=== PATIENT | female | born 2000 | race Caucasian/White ===

== ENCOUNTER 2023-09-11 11:47 | Emergency (ER) | payer OTHER, SELFPAY ==
[2023-09-11 11:50] VITALS: BP 119/71; PULSE 82; RESP 18; TEMP 36.9; O2SAT 99; BMI 28.3
[2023-09-11] MEDS: ONDANSETRON 4 MG RAPDIS TABLET SL (11:59)
[2023-09-11] MEDS: METOCLOPRAMIDE HCL 10 MG TABLET PO (13:45)
--- NOTE | 2023-09-11 13:45 | ED.GENADUL1 ---
HPI - General Adult General Chief complaint: Upper Respiratory Infection Stated complaint: URTI Time Seen by Provider: 09/11/23 11:53 Source: patient Mode of arrival: walk-in History of Present Illness HPI narrative: Patient is a 22-year-old female who is presenting to the Emergency Room with chief complaint of flulike symptoms for the past 2 or 3 days. 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 Patient does have bilateral frontal headache, she does have a history of headache and migraines. Patient normally will use Motrin or ibuprofen to help with her headaches at home. Patient had nausea and vomiting today, clear fluid with minimal bile. Patient has no chest pain or shortness of breath. No urinary complaints, no diarrhea, no other bowel or bladder changes. No recent traveling. Patient's has had flulike symptoms at home as well. . All systems are negative except as noted/marked. All systems reviewed and otherwise negative. . Nurses note and vital signs reviewed and patient is not hypoxic. General: The patient appears well and in no apparent distress. Patient is resting comfortably on cart. Patient is not toxic, lethargic, or listless Skin: Warm, dry, no pallor noted. There is no rash noted. No petechiae, purpura. Head: Normocephalic, atraumatic, Mild bilateral frontal tenderness to palpation, no maxillary tenderness palpation, Eye: Normal conjunctiva, no drainage, EOMI. PERRL Ears, Nose, Mouth, and Throat: oral mucosa is moist. Nares patent. Mouth without vesicles. Bilateral tympanic membrane shows no erythema, perforation or bulging. Posterior pharynx shows mild clear drainage, cobblestoning minimal, no unilateral swelling. No posterior pharyngeal petechiae, exudate. Cardiovascular: Regular Rate and Rhythm, no murmur, gallop, rub Respiratory: Patient is in no distress, no accessory muscle use, lungs are clear to auscultation, no wheezing, rales or rhonchi Back: non-tender, no CVA tenderness bilaterally to percussion. No CT LS midline pain GI: soft, no tenderness to palpation, no masses appreciated. No rebound, guarding, or rigidity noted. No flank pain bilateral, No distention Musculoskeletal: Patient has full range of motion of all of the extremities, no motor, sensory, or focal neurological deficits Neurological: A&O x3, normal speech Psychiatric: Cooperative Related Data Previous Rx's Medication Instructions Recorded metoclopramide HCl 10 mg tablet 10 mg PO Q6H PRN nausea and 09/11/23 (Reglan) vomiting 3 days #7 tabs Allergies Allergy/AdvReac Type Severity Reaction Status Date / Time Penicillins Allergy Severe Verified 09/11/23 11:54 tramadol AdvReac Severe Verified 09/11/23 11:54 Exam Constitutional Vital Signs, click to edit/add: Last Vital Signs Temp 98.4 F 09/11/23 11:50 Pulse 82 09/11/23 11:50 Resp 18 09/11/23 11:50 BP 119/71 09/11/23 11:50 Pulse Ox 99 09/11/23 11:50 O2 Del Method Room Air 09/11/23 11:50 Course Vital Signs Vital signs: Vital Signs Temperature 98.4 F 09/11/23 11:50 Pulse Rate 82 09/11/23 11:50 Respiratory Rate 18 09/11/23 11:50 Blood Pressure 119/71 09/11/23 11:50 Pulse Oximetry 99 09/11/23 11:50 Oxygen Delivery Method Room Air 09/11/23 11:50 Temperature 98.4 F 09/11/23 11:50 Pulse Rate 82 09/11/23 11:50 Respiratory Rate 18 09/11/23 11:50 Blood Pressure 119/71 09/11/23 11:50 Pulse Oximetry 99 09/11/23 11:50 Oxygen Delivery Method Room Air 09/11/23 11:50 Medical Decision Making [facility] Narrative Medical decision making narrative: Patient took a Zofran prior to arrival and she had one episode of vomiting after that. Patient was given another Zofran in the Emergency Room. Patient held down liquids with no difficulty. Patient was given oral Reglan to help with headache. Patient was offered IM injection of Toradol which she declined. Patient was sent home a prescription of Reglan to help with nausea and vomiting home along with headaches. Patient continues to manage treatment for sinus congestion and flulike symptoms. No questions at discharge. Discharge Plan Discharge Chief Complaint: Upper Respiratory Infection Clinical Impression: Upper respiratory infection, Sinus congestion, Flu-like symptoms, Nausea & vomiting Patient Disposition: Home, Self-Care Time of Disposition Decision: 13:44 Condition: Fair Prescriptions / Home Meds: New metoclopramide HCl [Reglan] 10 mg tablet 10 mg PO Q6H PRN (Reason: nausea and vomiting) 3 Days Qty: 7 0RF Instructions: Upper Respiratory Infection (ED), Acute Nausea and Vomiting (ED), Cold Symptoms (ED), How to Use Nasal [place] (ED) Additional Instructions: Use [id number] DayQuil, NyQuil, and Flonase. He is Mucinex as needed. Use Tylenol Motrin. Use Reglan as needed for nausea, vomiting or headaches. Increase fluids. Stand Alone Forms: Work/School Release, Portal Instructions Referrals: Physician,Non-Staff, MD [Primary Care Provider] - 1 week Discharge Date/Time: 09/11/23 13:51
== END 2023-09-11 13:51 | disposition home or self-care (01) ==
PROVIDERS: Emergency Provider Emergency Medicine
DX: R11.2 Nausea with vomiting, unspecified (principal); R09.81 Nasal congestion; J06.9 Acute upper respiratory infection, unspecified; R51.9 Headache, unspecified
CPT/HCPCS: 99283

== ENCOUNTER 2023-09-23 16:43 | Emergency (ER) | payer OTHER, SELFPAY ==
[2023-09-23 16:50] VITALS: BP 103/71; PULSE 88; RESP 20; TEMP 36.8; O2SAT 97; BMI 28.3
--- NOTE | 2023-09-23 16:56 | XR_ITS ---
The [address] [address] Patient Name: XNEIA ANDREWS MRN: [id number] date: 2000 Sex: F Assigned Patient Location: ER Current Patient Location: ER Accession/Order Number: [id number] Exam Date: 09/23/2023 17:49 Report Date: 09/23/2023 18:35 At the request of: VIDAL BASS Procedure: XR knee LT 4V EXAM: XR knee LT 4V HISTORY: injury c/o pain COMPARISON: None. TECHNIQUE: 3 views of the left knee FINDINGS: There is no acute fracture or dislocation. No knee joint effusion. The soft tissues are unremarkable. XR/XR knee LT 4V IMPRESSION: No acute process. Electronically authenticated by: SAGE BUCKLEY Date: 09/23/2023 18:35
--- NOTE | 2023-09-23 19:02 | ED.LOWEXI1 ---
HPI - Extremity Injury (Lower) General Chief Complaint: Extremity Injury, Lower Stated Complaint: Lower Extremity Pain Time Seen by Provider: 09/23/23 19:02 Source: patient Mode of arrival: walk-in Limitations: no limitations History of Present Illness HPI Narrative: Pt left prior to being evaluated. Related Data Previous Rx's Medication Instructions Recorded metoclopramide HCl 10 mg tablet 10 mg PO Q6H PRN nausea and 09/11/23 (Reglan) vomiting 3 days #7 tabs Allergies Allergy/AdvReac Type Severity Reaction Status Date / Time ketorolac [From Toradol] Allergy Severe Hives Verified 09/23/23 16:50 Penicillins Allergy Severe Verified 09/11/23 11:54 tramadol AdvReac Severe Verified 09/11/23 11:54 PFSH PFSH Social History Smoking status: Heavy tobacco smoker Exam Constitutional Vital Signs, click to edit/add: Last Vital Signs Temp 98.2 F 09/23/23 16:50 Pulse 88 09/23/23 16:50 Resp 20 09/23/23 16:50 BP 103/71 09/23/23 16:50 Pulse Ox 97 09/23/23 16:50 O2 Del Method Room Air 09/23/23 16:50 Course Vital Signs Vital signs: Vital Signs Temperature 98.2 F 09/23/23 16:50 Pulse Rate 88 09/23/23 16:50 Respiratory Rate 20 09/23/23 16:50 Blood Pressure 103/71 09/23/23 16:50 Pulse Oximetry 97 09/23/23 16:50 Oxygen Delivery Method Room Air 09/23/23 16:50 Temperature 98.2 F 09/23/23 16:50 Pulse Rate 88 09/23/23 16:50 Respiratory Rate 20 09/23/23 16:50 Blood Pressure 103/71 09/23/23 16:50 Pulse Oximetry 97 09/23/23 16:50 Oxygen Delivery Method Room Air 09/23/23 16:50 MDM - Extremity Injury (Lower) Medical Records Attestation: I reviewed the patient's medical records. Imaging Data Knee x-ray: Attestation: I have reviewed the pertinent imaging results. Radiologist's impression: Procedure: XR knee LT 4V EXAM: XR knee LT 4V HISTORY: injury c/o pain COMPARISON: None. TECHNIQUE: 3 views of the left knee FINDINGS: There is no acute fracture or dislocation. No knee joint effusion. The soft tissues are unremarkable. XR/XR knee LT 4V IMPRESSION: No acute process. Electronically authenticated by: SAGE BUKCLEY Date: 09/23/2023 18:35 Discharge Plan Discharge Chief Complaint: Extremity Injury, Lower Clinical Impression: Patient left without being seen Prescriptions / Home Meds: No Action metoclopramide HCl [Reglan] 10 mg tablet 10 mg PO Q6H PRN (Reason: nausea and vomiting) 3 Days Qty: 7 0RF Referrals: Physician,Non-Staff, MD [Primary Care Provider] - 1 week
== END 2023-09-23 19:15 | disposition left against medical advice (07) ==
PROVIDERS: Emergency Provider Emergency Medicine
DX: M25.562 Pain in left knee (principal); Z53.21 Procedure and treatment not carried out due to patient leaving prior to being seen by health care provider; F17.210 Nicotine dependence, cigarettes, uncomplicated
CPT/HCPCS: 73564

== ENCOUNTER 2023-09-30 08:32 | Outpatient (RCR) | payer OTHER, SELFPAY | END 2023-11-01 08:00 | disposition home or self-care (01) | LOC: PT 08:32 | PROVIDERS: Visit Provider Physician Assistant | DX: M22.2X2 Patellofemoral disorders, left knee (principal); M94.262 Chondromalacia, left knee | CPT/HCPCS: 97110; 97112; 97162 ==

== ENCOUNTER 2023-10-13 08:26 | Emergency (ER) | payer OTHER, SELFPAY | END 2023-10-13 08:34 | disposition left against medical advice (07) | PROVIDERS: Emergency Provider Emergency Medicine | DX: Z53.8 Procedure and treatment not carried out for other reasons (principal) ==

== ENCOUNTER 2023-12-18 09:45 | Emergency (ER) | payer OTHER, SELFPAY ==
[2023-12-18 09:52] VITALS: BP 132/83; PULSE 89; RESP 18; TEMP 36.8; O2SAT 96; BMI 29.5
--- OUTSIDE RECORDS SUMMARY | 2023-12-18 09:52 | XMS_ITS | CCD ---
Author Name Unknown Address [address] [place] [address] Organization [facility] Care Team Providers Care Chief Psychologist Name Role Phone JAGDISH ALMAGUER Unavailable Unavailable Wandy Dorado Primary Care Physician [phone] None, No PCP Unavailable Unavailable Unavailable Unavailable DO Shauna Atkinson Primary Care Provider DO Martinez Kumar Emergency Provider Betty [facility] Payton Brooks Emergency Provider DO Joseph Wallace Emergency Provider MANDO, DR GIOVANA Kirby Admitting Unavailabl e MANDO, DR GIOVANA Kirby Attending Unavailabl e MISC, DR ISRAEL Primary Care Unavailable MISC, DR ISRAEL Primary Care Unavailable PAY ., DR ALMAZAN Admitting Unavailable PAY ., DR ALMAZAN Attending Unavailable GABRIELLE, DR SHAUNA Foss Consulting Unavailable PAY ., DR ALMAZAN Consulting Unavailable MISC, DR ISRAEL Primary Care Unavailable VIDAL BASS Admitting Unavailable VIDAL BASS Attending Unavailable ARACELI, DR GABBY Dumont Consulting Unavailable VIDAL BASS Consulting Unavailable WALDO, DR ISRAEL Primary Care Unavailable BORIS RODRIGUEZ Admitting Unavailable BORIS RODRIGUEZ Attending Unavailable BORIS RODRIGUEZ Consulting Unavailable Sheri Davenport Consulting Unavailable WALDO, DR ISRAEL Primary Care Unavailable VIDAL BASS Admitting Unavailable VIDAL BASS Attending Unavailable VIDAL BASS Consulting Unavailable DO Shauna Atkinson Primary Care Provider [phone] MD Alton Boss Emergency Provider Cheng Cruz Unavailable Kayley Mo Unavailable Alton Boss Attending Unavailable Shauna Atkinson [facility] Unavailable Alton Boss Admitting Unavailable Joseph Wallace Admitting Unavailable Joseph Wallace Attending Unavailable Shauna Atkinson [facility] Unavailable Allergies Allergy Classification Reported Allergen(s) Allergy Type Date of Onset Reaction(s) Facility (2 sources) Penicillin; Translations: [penicillin] Drug Allergy Anaphylaxis (disorder) [facility] (1 source) Pollen Drug allergy Respiratory function (observable entity) [facility] (5 sources) Penicillins [employer]; Translations: [Penicillins [employer]] Allergy to drug (finding) [facility] Work Phone: (6 sources) Ketorolac; Translations: [ketorolac] Drug Allergy 04-29-20 22 [facility] (5 sources) Penicillins; Translations: [Penicillins] Propensity to adverse reactions 01-22-20 22 Anaphylaxis [facility] (9 sources) traMADol; Translations: [tramadol] Drug Allergy 04-29-20 Hiv, Unknown [facility] (1 source) Ketorolac Drug Allergy [facility] (3 sources) penicillAMINE Drug Allergy Unknown [facility] Other (1 source) penicillAMINE Drug Allergy 12-01-19 24 [facility] Medications Current Medications Medication Drug Class(es) Dates Sig (Normalized) Sig (Original) acetaminophen 325 mg / HYDROcodone bitartrate 5 mg oral tablet (1 source) Opioid Agonist Start: 09-24-2023 take 1 tablet by mouth every four hours Hydrocodone-Aceta minophen Active 1 TAB PO Q4H 3 September 24, 2023 Start: 09-24-2023 take 1 tablet by marlene th every four hours Hydrocodone-Acetaminophen Active 1 TAB P O Q4H 3 September 24, 2023 [id number] actuat albuterol 0.09 mg/actuat metered dose inhaler (3 sources) beta2-Adrenergic Agonist Start: 12-01-2023 take 2 puff(s) by inhalation every four to six hours as needed Albuterol Sulfate HFA 108 (90 Base) MCG/ACT 2 puffs as needed Inhalation every 4-6 hours for 14 days Nov, Active Start: 01-09-2023 Albuterol Sulf ate Active 2 PUFF INHALATION MORNING HYPOGLYCEMIC January 09, 2023 12:00am dextromethorphan hydrobromide 15 mg / guaiFENesin 400 mg / pseudoephedrine hydrochloride 60 mg oral tablet (1 source) alpha-Adrenergic Agonist, Uncompetitive G-hhnfed-R-aspartate Receptor Antagonist, Sigma-1 Agonist Start: 12-01-2023 take 4 tablets by mouth every twenty-four hours as needed Capmist DM 60-15-400 MG as needed Orally every 4-6 hours as needed, max 4 tablets in 24 hours for 5 days Nov, Active Inhalational Spacing Device (Breatherite Mdi Spacer) spacer (2 sources) Start: 01-09-2023 Inhalational Spacing Device (Breatherite Mdi Spacer) spacer Active EACH MISCELLANE January 09, 2023 12:00am Marijuana (2 sources) Start: 01-09-2023 Marijuana Active January 09, 2023 12:00am [place] (No Known Home Meds) (1 source) Start: 10-13-2022 [place] (No Known Home Meds) Active October 13, 2022 12:00am ondansetron 4 mg disintegrating oral tablet (5 sources) Serotonin-3 Receptor Antagonist Start: 01-09-2023 take 4 mg by mouth once daily Ondansetron Active 4 MG PO Daily January 09, 2023 12:00am Start: 10-28-2021 take 1 tablet by marlene th three times daily as needed Ondansetron 8 MG Oral Tablet Disintegrating DISSOLVE 1 (ONE) TABLET on tongue THREE TIMES DAILY NEEDED Quantity: 12 Refills: 0 Ordered: 28-Oct-2021 DO Start : 28-Oct-2021 Active predniSONE 20 mg oral tablet (1 source) Start: 12-01-2023 take 1 tablet by mouth every twelve hours prednisone 20 MG 1 tablet Orally BID for 5 Nov, Active Tri-Sprintec 35 mcg Tab (1 source) Start: 05-22-2021 take 1 tablet by mouth once daily Tri-Sprintec 35 mcg Tab = 1 tab(s), Oral, Daily, NEED to schedule appt. before this refill runs out, # 84 tab(s), Refills(s) 1, Pharmacy: [facility] [id number], 150, cm, 04/29/21 15:53:00 EDT, Height/Length Dosing, 58, kg, 04/29/21 15:53:00 EDT, Weight Dosing Start Date: 05/22/21 Status: Ordered Completed/Discontinued Medications Medication Drug Class(es) Dates Sig (Normalized) Sig (Original) acetaminophen 300 mg / codeine phosphate 30 mg oral tablet (2 sources) Opioid Agonist Start: 01-09-2023 End: 01-09-2023 Acetaminophen-Codei ne Discontinued TAB TABLET January 09, 2023 12:00am January 09, 2023 11:55am acetaminophen 325 mg / oxyCODONE hydrochloride 5 mg oral tablet (20 sources) Opioid Agonist Start: 04-29-2022 End: 10-13-2022 take 1 tablet by mouth every four to six hours Oxycodone-Acetamino phen (Percocet) 5-325 mg tablet Discontinued 1 TAB PO EVERY 4-6 HOURS 12 April 29, 2022 October 13, 2022 11:50am Start: 01-28-2022 End: 04-29-2022 take 1 tablet by mouth every eight hours Oxycodone-Acetaminophen (Percocet) 5-325 mg tablet Discontinued 1 TAB PO Q8H 10 January 28, 2022 April 29, 2022 7:21am Start: 01-28-2022 oxyCODONE-Acet aminophen 5-325 MG Oral Tablet Quantity: 10 Refills: 0 Ordered: 28-Jan-2022 DO Start : 28-Jan-2022 Active Start: 01-09-2022 End: 10-13-2022 take 1 tablet by mouth every six hours Oxycodone-Acetaminophen Discontinued 1 T AB PO Q6H 14 January 12, 2022 January 16, 2022 9:47am clindamycin 300 mg oral capsule (7 sources) Lincosamide Antibacterial Start: 01-09-2022 Clindamycin HCl - 30 0 MG Oral Capsule Quantity: 28 Refills: 0 Ordered: 09-Jan-2022 DO Start : 09-Jan-2022 Active Start: 01-09-2022 End: 04-29-2022 take 300 mg by mouth every six hours Clindamycin Hcl Discontinued 300 MG PO Q6H 28 January 09, 2022 12:00am April 29, 2022 7:21am doxycycline hyclate 100 mg oral capsule (14 sources) Tetracycline-class Drug Start: 04-29-2022 End: 10-13-2022 take 100 mg by mouth twice daily Doxycycline Hyclate Discontinued 100 MG PO Twice daily April 28, 2022 11:00pm October 13, 2022 11:50am Start: 04-10-2022 take 1 capsule by mo uth once daily Doxycycline Hyclate 100 MG Oral Capsule TAKE 1 CAPSULE EVERY 12 HOURS DAILY. Quantity: 28 Refills: 1 Ordered: 10-Apr-2022 Juan Taylor MD Start : 10-Apr-2022 Active Start: 01-28-2022 Doxycycline Hy clate 100 MG Oral Capsule Quantity: 10 Refills: 0 Ordered: 28-Jan-2022 DO Start : 28-Jan-2022 Active Start: 01-08-2022 End: 01-12-2022 take 100 mg by mouth once daily Doxycycline Hyclate Di scontinued 100 MG PO Daily January 08, 2022 12:00am January 12, 2022 9:30am sprintec 28 0.25-35 mg-mcg tablet (3 sources) Progestin, Estrogen take 1 tablet by mouth every twenty-four hours Sprintec 28 0.25-35 MG-MCG 1 tablet Orally Once a day Not-Taking/PRN take 1 tablet by marlene th every twenty-four hours Sprintec 28 0.25-35 MG-MCG 1 tablet Orally Once a day Not-Taking ibuprofen 800 mg oral tablet (12 sources) Nonsteroidal Anti-inflammatory Drug Start: 01-08-2022 End: 01-12-2022 take 600 mg by mouth every six hours Ibuprofen Discontinued 600 MG PO Q6H January 08, 2022 12:00am January 12, 2022 9:29am Start: 02-09-2020 take 1 tablet by marlene th three times daily at mealtime as needed Ibuprofen 800 MG 1 tablet with food or milk as needed Orally Three times a day for 30 days Jan, Not-Taking/PRN ketorolac tromethamine 10 mg oral tablet (3 sources) Nonsteroidal Anti-inflammatory Drug, Cyclooxygenase Inhibitor Start: 04-10-2022 take 1 tablet by mouth every six hours at mealtime Ketorolac Tromethamine 10 MG Oral Tablet TAKE 1 TABLET EVERY 6 HOURS WITH FOOD. Quantity: 20 Refills: 0 Ordered: 10-Apr-2022 Juan Taylor MD Start : 10-Apr-2022 Active meloxicam 15 mg oral tablet (3 sources) Nonsteroidal Anti-inflammatory Drug Start: 09-28-2023 take 1 tablet by mouth every twenty-four hours Meloxicam 15 MG 1 tablet Orally Once a day for 30 days Sep, Not-Taking/PRN naproxen 500 mg oral tablet (3 sources) Nonsteroidal Anti-inflammatory Drug Start: 04-29-2021 Naproxen 500 MG Oral Tablet Quantity: 14 Refills: 0 Ordered: 30-Apr-2021 DO Start : 29-Apr-2021 Active sulfamethoxazole 800 mg / trimethoprim 160 mg oral tablet (5 sources) Dihydrofolate Reductase Inhibitor Antibacterial, Sulfonamide Antimicrobial Start: 03-27-2022 take 1 tablet by mouth twice daily Sulfamethoxazole -Trimethoprim 800-160 MG Oral Tablet TAKE 1 TABLET TWICE DAILY UNTIL FINISHED. Quantity: 28 Refills: 1 Ordered: 27-Mar-2022 Juan Taylor MD Start : 27-Mar-2022 Active traMADol hydrochloride 50 mg oral tablet (3 sources) Opioid Agonist Start: 04-10-2022 take 1 tablet by mouth every eight hours as needed traMADol HCl - 50 MG Oral Tablet TAKE 1 TABLET EVERY 8 HOURS NEEDED. Quantity: 20 Refills: 0 Ordered: 10-Apr-2022 Juan Taylor MD Start : 10-Apr-2022 Active Problems Active Problems Problem Classification Problem Date Documented Da te Episodic/Chronic Abdominal pain (7 sources) Unspecified abdominal pain; Translations: [Left lower quadrant pain] Onset: 01-05-2023 Episodic Acute bronchitis (1 source) Acute bronchitis due to other specified organisms Episodic Conditions associated with dizziness or vertigo (1 source) Dizziness and giddiness; Translations: [Dizziness and giddiness] Onset: 09-30-2018 Episodic E Codes: Fall (1 source) Fall (on) (from) unspecified stairs and steps, initial encounter; Translations: [FALL ON FROM UNS STAIRS STEPS INIT] Onset: 12-08-2022 Episodic External cause codes: Transport; not MVT (1 source) Animal-rider injured by fall from or being thrown from horse in noncollision accident, initial encounter; Translations: [Animl-ridr injured by fall fr horse in nonclsn acc, init] Onset: 09-30-2018 Headache; including migraine (1 source) Headache; Translations: [Headache] Onset: 09-30-2018 Episodic Intracranial injury (1 source) Concussion with loss of consciousness of 30 minutes or less, initial encounter; Translations: [Concussion w LOC of 30 minutes or less, init] Onset: 09-30-2018 Episodic Joint disorders and dislocations; trauma-related (8 sources) Internal derangement of left knee; Translations: [Unspecified internal derangement of left knee] Chronic Lymphadenitis (1 source) Nonspecific mesenteric lymphadenitis; Translations: [NONSPEC MESENTERIC LYMPHADENITIS] Onset: 01-12-2023 Episodic Nonspecific chest pain (1 source) Chest pain; Translations: [Chest pain, unspecified] Onset: 02-18-2022 Episodic Other aftercare (1 source) Other halfway (current) drug therapy; Translations: [OTH AUDIENCE COORDINATOR CURRENT DRUG THERAPY] Onset: 02-24-2023 Episodic Other bone disease and musculoskeletal deformities (2 sources) Chondromalacia, left knee Episodic Other connective tissue disease (3 sources) Pain in right hand; Translations: [PAIN IN RIGHT HAND] Onset: 12-05-2022 Episodic Other female genital disorders (2 sources) Vaginal bleeding; Translations: [Abnormal uterine and vaginal bleeding, unspecified] 01-09-2023 Chronic Other gastrointestinal disorders (1 source) Constipation, unspecified; Translations: [CONSTIPATION UNSPECIFIED] Onset: 01-12-2023 Episodic Other nervous system disorders (6 sources) Postoperative pain ; Translations: [Other acute postoperative pain] 04-29-2022 Episodic Other nervous system disorders (1 source) Other acute postprocedural pain; Translations: [OTHER ACUTE POSTPROCEDURAL PAIN] Onset: 02-24-2023 Episodic Other non-traumatic joint disorders (1 source) Pain in right shoulder; Translations: [Pain in right shoulder] Onset: 09-30-2018 Episodic Other skin disorders (5 sources) Epidermoid cyst; Translations: [Epidermal cyst] Onset: 02-18-2022 Episodic Other skin disorders (5 sources) Infection of sebaceous cyst; Translations: [Sebaceous cyst] Episodic Ovarian cyst (7 sources) Cyst of ovary; Translations: [Unspecified ovarian cyst, unspecified side] Onset: 01-06-2023 01-09-2023 Episodic Skin and subcutaneous tissue infections (8 sources) Abscess; Translations: [Cutaneous abscess, unspecified] 01-28-2022 Episodic Spondylosis; intervertebral disc disorders; other back problems (2 sources) Cervicalgia; Translations: [Cervicalgia] Onset: 09-30-2018 Episodic Sprains and strains (2 sources) Sprain of knee; Translations: [Sprain of unspecified site of left knee, initial encounter] Onset: 09-24-2023 09-24-2023 Episodic Substance-related disorders (1 source) Nicotine dependence, cigarettes, uncomplicated; Translations: [NICOTINE DEPEND CIGARETTES UNCOMP] Onset: 01-12-2023 Chronic Superficial injury; contusion (1 source) Contusion of right hand, initial encounter; Translations: [CONTUSION RIGHT HAND INITIAL ENC] Onset: 12-08-2022 Episodic Unclassified (2 sources) COUGH, UNSPECIFIED; Translations: [COUGH, UNSPECIFIED] Onset: 10-13-2022 Unclassified (1 source) Pain in left knee; Translations: [Pain in left knee] Onset: 09-24-2023 Unclassified (1 source) Unspecified ovarian cyst, left side; Translations: [Unspecified ovarian cyst, left side] Onset: 01-09-2023 Viral infection (3 sources) Disease caused by 2019-nCoV; Translations: [COVID-19] 10-13-2022 Episodic Past or Other Problems Problem Classification Problem Date Documented Da te Episodic/Chronic Influenza (1 source) Influenza due to unidentified influenza virus with other respiratory manifestations; Translations: [FLU D/T UNIDENT FLU VIR RESP MANIF] Onset: 10-13-2022 Episodic Unclassified (1 source) COUGH, UNSPECIFIED; Translations: [COUGH, UNSPECIFIED] Onset: 10-11-2022 Unclassified (1 source) Acute cough R05.1 Results Test Name Value Interpretation Reference Range Facility Outside Recordson 12-02-2023 Outside Records [id number]#1.00OTGTI FF [facility] COVID + FLU Quick Testingon 12-01-2023 SARS-CoV-2 (COVID-19) RNA HUMBERTO+probe Ql (Unsp spec) Negative [facility] Other COVID + FLU Quick Testing Negative [facility] Other Outside [facility] 10-01-2023 Outside Records [id number]#1.00OTGTI FF [facility] XR knee LT 4V*on 09-24-2023 XR knee LT 4V* [facility] [place] [address] XRay Report Signed Patient: Sofia Mcgowan MR#: [id number] : 2000 Acct:[id number] Age/Sex: 22 / F ADM Date: 09/24/23 Loc: ER Room: Type: [facility] ER Attending Dr: Copies to: Alton Boss MD Ordering Provider: Alton Boss MD Date of Service: 09/24/23 XR/XR knee LT 4V*: Extremity Injury, Lower LEFT KNEE - 4 views CLINICAL HISTORY: Left knee gave out 2 days ago now with pain. COMPARISON: None FINDINGS: Minimal joint effusion. No acute bony process. Joint spaces appear maintained. XR/XR knee LT 4V* IMPRESSION: MINIMAL JOINT EFFUSION. NO ACUTE BONY PROCESS. Impression dictated by: Pablo Curiel Jr., D.OHawk09/24/2023 9:27 AM Dictation Location: [facility]15 Transcribed By: [facility] 09/24/23926 Dictated By: Pablo Curiel Jr, DO 09/24/23926 Signed By: 09/24/23926 [facility] Outside Recordson 02-19-2023 Outside Records [id number]#1.00OTGT IFF [facility] Outside Records [id number]#1.00OTGT IFF [facility] Outside Records [id number]#1.00OTGT IFF [facility] Outside [facility] 01-12-2023 Outside Records [id number]#1.00OTGTI FF Normal [facility] Activated partial thrombopla stin time (aPTT) in platelet poor plasma by coagulation aOrdered By: Joseph Wallace on 01-09-2023 aPTT Coag (PPP) [Time] 30.5 s 25.1-36.5 [facility] Alanine aminotransferase [En zymatic activity/volume] in Serum or PlasmaOrdered By: Joseph Wallace on 01-09-2023 ALT [Catalytic activity/Vol] 16 U/L 7-52 [facility] Albumin [Mass/volume] in Ser um or Plasma by Bromocresol green (BCG) dye binding methoOrdered By: Joseph Wallace on 01-09-2023 Albumin BCG dye [Mass/Vol] 4.4 g/dL 3.5-5.7 [facility] Alkaline phosphatase [Enzyma tic activity/volume] in Serum or PlasmaOrdered By: Joseph Wallace on 01-09-2023 ALP [Catalytic activity/Vol] 77 U/L 34-104 [facility] Amphetamine Screen Ql (U)Ord ered By: Joseph Wallace on 01-09-2023 Amphetamines Ql (U) Negative Negative [facility] Aspartate aminotransferase [ Enzymatic activity/volume] in Serum or PlasmaOrdered By: Joseph Wallace on 01-09-2023 AST [Catalytic activity/Vol] 16 U/L 13-39 [facility] Automated erythrocytes count in urine sediment (number/area)Ordered By: Joseph Wallace on 01-09-2023 RBC Auto (Urine sed) [#/Area] 10-19 [HPF] 0-4 [facility] Automated leukocytes count i n urine sediment (number/area)Ordered By: Joseph Wallace on 01-09-2023 WBC Auto (Urine sed) [#/Area] 0-1 [HPF] 0-4 [facility] Barbiturates [Presence] in U rine by Screen methodOrdered By: Joseph Wallace on 01-09-2023 Barbiturates Screen Ql (U) Negative Negative [facility] Basic Metabolic Panelon 12-31 Anion gap [Moles/Vol] 12.6 mmol/L Normal 6.0-15.0 [facility] Comment on above: Performed By: #### P T, HEPATIC, PTT, BMP, CBC, LIPASE #### [facility] [address] Calcium [Mass/Vol] 8.9 mg/dL Normal 8.6-10.3 [facility] Comment on above: Performed By: #### P T, HEPATIC, PTT, BMP, CBC, LIPASE #### [facility] [address] Chloride [Moles/Vol] 107 mmol/L Normal 98-107 [facility] Comment on above: Performed By: #### P T, HEPATIC, PTT, BMP, CBC, LIPASE #### [address] CO2 [Moles/Vol] 25.3 mmol/L Normal 21.0-31.0 [facility] Comment on above: Performed By: #### P T, HEPATIC, PTT, BMP, CBC, LIPASE #### [address] Creatinine [Mass/Vol] 0.57 mg/dL Low 0.60-1.20 [facility] Comment on above: Performed By: #### P T, HEPATIC, PTT, BMP, CBC, LIPASE #### [address] Creatinine Clr Calc Pharmacy 141.51 [facility] Comment on above: Performed By: #### P T, HEPATIC, PTT, BMP, CBC, LIPASE #### [address] GFR/1.73 sq M.predicted MDRD (S/P/Bld) [Vol rate/Area] mL/min/{1.73_m2} [facility] Comment on above: Performed By: #### P T, HEPATIC, PTT, BMP, CBC, LIPASE #### [address] Glucose [Mass/Vol] 85 mg/dL Normal 74-109 [facility] Comment on above: Result Comment: [facility] Glucose Reference Range is dependent on time and content of last meal. Glucose of more than 200 mg/dL in a nonstressed, ambulatory subject supports the diagnosis of Diabetes Mellitus. ADA recommended reference range Performed By: #### P T, HEPATIC, PTT, BMP, CBC, LIPASE #### [facility] [address] Potassium [Moles/Vol] 3.9 mmol/L Normal 3.5-5.1 [facility] Comment on above: Performed By: #### P T, HEPATIC, PTT, BMP, CBC, LIPASE #### [facility] [address] Sodium [Moles/Vol] 141 mmol/L Normal 136-145 [facility] Comment on above: Performed By: #### P T, HEPATIC, PTT, BMP, CBC, LIPASE #### [facility] [address] Urea nitrogen [Mass/Vol] 12 mg/dL Normal 7-25 [facility] Comment on above: Performed By: #### P T, HEPATIC, PTT, BMP, CBC, LIPASE #### [facility] [address] Basophils Auto (Bld) [#/Vol] Ordered By: Joseph Wallace on 01-09-2023 Basophils (Bld) [#/Vol] 0.1 10*3/uL 0.0-0.2 [facility] Basophils/100 WBC Auto (Bld) Ordered By: Joseph Wallace on 01-09-2023 Basophils/100 WBC (Bld) 0.6 % . [facility] Benzodiazepines Screen Ql (U )Ordered By: Joseph Wallace on 01-09-2023 Benzodiazepines Ql (U) Positive Negative [facility] Benzoylecgonine [Presence] i n Urine by Screen methodOrdered By: Joseph Wallace on 01-09-2023 Benzoylecgonine Screen Ql (U) Positive Negative [facility] Bilirubin Test strip Ql (U)O rdered By: Joseph Wallace on 01-09-2023 Bilirubin Ql (U) Negative Negative [facility] Bilirubin.direct [Mass/volum e] in Serum or PlasmaOrdered By: Joseph Wallace on 01-09-2023 Bilirubin.direct [Mass/Vol] 0.10 mg/dL 0.03-0.18 [facility] Bilirubin.total [Mass/volume ] in Serum or PlasmaOrdered By: Joseph Wallace on 01-09-2023 Bilirubin [Mass/Vol] 0.5 mg/dL 0.3-1.0 [facility] CBC AUTO DIFFon 01-09-2023 BASO # 0.1 103/ul Normal 0.0-0.1 [facility] Comment on above: Performed By: #### C BC #### [facility] [address] [address] [address] Cristopher Godoy Basophils/100 WBC (Bld) 0.6 % Normal 0.2-2.0 [facility] Comment on above: Performed By: #### C BC #### [facility] [address] [place] [address] Dr. Cristopher Godoy EO # 0.4 103/ul Normal 0.0-0.7 [facility] Comment on above: Performed By: #### C BC #### [facility] [address] [place] [address] Dr. Cristopher Godoy Eosinophils/100 WBC (Bld) 2.7 % Normal 0.9-7.0 [facility] Comment on above: Performed By: #### C BC #### [facility] [address] [place] [address] Dr. Cristopher Godoy Erythrocyte distribution width (RBC) [Ratio] 13.5 % Normal 11.0-15.0 [facility] Comment on above: Performed By: #### C BC #### [facility] [address] [place] [address] Dr. Cristopher Godoy Hematocrit (Bld) [Volume fraction] 42.2 % Normal 36.0-48.0 [facility] Comment on above: Performed By: #### C BC #### [facility] [address] [place] [address] Dr. Cristopher Godoy Hemoglobin (Bld) [Mass/Vol] 14.1 g/dL Normal 12.0-16.0 [facility] Comment on above: Performed By: #### C BC #### [facility] [address] [place] [address] Dr. Cristopher Godoy IG # 0.06 10e3/ul Critically high 0.00-0.03 [facility] Comment on above: Performed By: #### C BC #### [facility] [address] [place] [address] Dr. Cristopher Godoy IG % 0.4 % Normal 0.0-0.5 [facility] Comment on above: Performed By: #### C BC #### [facility] [address] [place] [address] Dr. Cristopher Godoy LYMPH # 3.8 103/ul Normal 1.2-3.8 [facility] Comment on above: Performed By: #### C BC #### [facility] [address] [place] [address] Dr. Cristopher Godoy Lymphocytes/100 WBC (Bld) 24.7 % Normal 20.5-60.0 [facility] Comment on above: Performed By: #### C BC #### [facility] [address] [place] [address] Dr. Cristopher Godoy MANUAL DIFF REQ NO Normal [facility] Comment on above: Performed By: #### C BC #### [facility] [address] [place] [address] Dr. Cristopher Godoy MCH (RBC) [Entitic mass] 30.5 pg Normal 26.7-34.0 [facility] Comment on above: Performed By: #### C BC #### [facility] [address] [place] [address] Dr. Cristopher Godoy MCHC (RBC) [Mass/Vol] 33.4 g/dL Normal 29.9-35.2 [facility] Comment on above: Performed By: #### C BC #### [facility] [address] [place] [address] Dr. Cristopher Godoy MCV (RBC) [Entitic vol] 91.3 fL Normal 81.0-99.0 [facility] Comment on above: Performed By: #### C BC #### [facility] [id number] Cristopher Godoy MONO # 0.9 103/ul Critically high 0.3-0.8 [facility] Comment on above: Performed By: #### C BC #### [facility] [address] [place] [address] Dr. Cristopher Godoy Monocytes/100 WBC (Bld) 5.9 % Normal 1.7-12.0 [facility] Comment on above: Performed By: #### C BC #### [facility] [address] [place] [address] Dr. Cristopher Godoy NEUT # 10.0 103/ul Critically high 1.4-6.5 [facility] Comment on above: Performed By: #### C BC #### [facility] [address] [place] [address] Dr. Cristopher Godoy Neutrophils/100 WBC (Bld) 65.7 % Normal 43.0-75.0 [facility] Comment on above: Performed By: #### C BC #### [facility] [address] [place] [address] Dr. Cristopher Godoy Platelet mean volume (Bld) [Entitic vol] 10.8 fL Normal 9.5-13.5 [facility] Comment on above: Performed By: #### C BC #### [facility] [address] [place] [address] Dr. Cristopher Godoy PLT 338 103/ul Normal 150-450 [facility] Comment on above: Performed By: #### C BC #### [facility] [address] [place] [address] Dr. Cristopher Godoy RBC 4.62 106/ul Normal 4.20-5.40 [facility] Comment on above: Performed By: #### C BC #### [facility] [address] [place] [address] Dr. Cristopher Godoy WBC 15.3 103/ul Critically high 4.0-11.0 [facility] Comment on above: Performed By: #### C BC #### [facility] [address] [place] [address] ABD/PELV W CONon 01-10-20 CT ABD/PELV W CON EXAMINATION: CT ABD/ PELV W CON HISTORY: GENERALIZED ABDOMINAL PAIN COMPARISON: Pelvic ultrasound dated 01/05/2023. TECHNIQUE: Routine CT abdomen/pelvis with intravenous contrast. Dose reduction techniques were achieved by using automated exposure control and/or adjustment of mA and/or kV according to patient size and/or use of iterative reconstruction technique. FINDINGS: Lower chest: Unremarkable. Solid organs: The liver, gallbladder, biliary tree, pancreas, spleen, bilateral adrenal glands and bilateral kidneys are unremarkable. Bowel: Moderate amount of stool within the colon. The colon is unremarkable. The appendix is unremarkable. The distal esophagus is normal. There is a large amount of debris within the dilated stomach. The duodenum is unremarkable. The jejunal and ileal small bowel loops are normal caliber. The bowel gas pattern is nonobstructive. Inflammation: There is no free air or free fluid. There is no inflammatory reaction. Vasculature: The abdominal aorta and the inferior vena cava are unremarkable. The iliac arteries and veins are unremarkable. Lymphadenopathy: Several small scattered mesenteric lymph nodes which most likely are reactive. Correlation with clinical findings recommended to assess for mesenteric adenitis. There are no pathologically enlarged lymph nodes within the abdomen/pelvis. Pelvis: There are 2 left ovarian cysts which given the variation in imaging modality, are most likely unchanged in size from the pelvic ultrasound examination measuring 5.5 x 5.2 x 5.4 cm (30 Hounsfield units) and 2.9 x 3.6 x 5.1 cm (23 Hounsfield units). The uterus is unremarkable. Osseous: No acute process. Mild rightward truncal tilt. IMPRESSION: Nonobstructive bowel gas pattern with a moderate amount of stool within the colon. Several small scattered mesenteric lymph nodes which most likely are reactive. Correlation with clinical findings recommended to assess for mesenteric adenitis. There is no free air or free fluid. There is no inflammatory reaction. There are 2 left ovarian cysts which given the variation in imaging modality, are most likely unchanged in size from the pelvic ultrasound examination measuring 5.5 x 5.2 x 5.4 cm (30 Hounsfield units) and 2.9 x 3.6 x 5.1 cm (23 Hounsfield units). Electronically authenticated by: SHERI DAVENPORT Date: 2023-01-09 04:41 Normal [facility] Calcium [Mass/volume] in Ser um or PlasmaOrdered By: Joseph Wallace on 01-09-2023 Calcium [Mass/Vol] 8.9 mg/dL 8.6-10.3 [facility] Cannabinoids [Presence] in U rine by Screen methodOrdered By: Joseph Wallace on 01-09-2023 Cannabinoids Screen Ql (U) Positive Negative [facility] Comment on above: These are unconfirme d results and should not be used for legal purposes. Drug Cut-Off Concentration: AMPH 1000 ng/mL ISAURO 200 ng/mL YULY 200 ng/mL COCM 300 ng/mL OP 300 ng/mL PCP 25 ng/mL THC 20 ng/mL Carbon dioxide, total [Moles /volume] in Serum or PlasmaOrdered By: Joseph Wallace on 01-09-2023 CO2 [Moles/Vol] 25.3 mmol/L 21.0-31.0 [facility] Chloride [Moles/volume] in S yudy or PlasmaOrdered By: Joseph Wallace on 01-09-2023 Chloride [Moles/Vol] 107 mmol/L 98-107 [facility] Color Auto (U)Ordered By: Janusz Wallace on 01-09-2023 Color (U) Yellow Yellow [facility] Complete Blood Count Auto Di ffon 01-09-2023 Basophils (Bld) [#/Vol] 0.1 10*3/uL Normal 0.0-0.2 [facility] Comment on above: Result Comment: PERF ORMED BY: [facility] [address] [facility] [place] [address] PATHOLOGIST ECOLOGICAL ECONOMIST LUCRECIA NG M.D. Performed By: #### P T, HEPATIC, PTT, BMP, CBC, LIPASE #### [facility] [address] [place] [address] [place] Basophils/100 WBC (Bld) 0.6 % Normal . [facility] Comment on above: Performed By: #### P T, HEPATIC, PTT, BMP, CBC, LIPASE #### [facility] [address] [place] [address] [place] Eosinophils (Bld) [#/Vol] 0.6 10*3/uL High 0.0-0.45 [facility] Comment on above: Performed By: #### P T, HEPATIC, PTT, BMP, CBC, LIPASE #### [address] Eosinophils/100 WBC (Bld) 5.4 % Normal . [facility] Comment on above: Performed By: #### P T, HEPATIC, PTT, BMP, CBC, LIPASE #### [address] Erythrocyte distribution width (RBC) [Ratio] 14.2 % Normal 11.9-15.3 [facility] Comment on above: Performed By: #### P T, HEPATIC, PTT, BMP, CBC, LIPASE #### [address] Hematocrit (Bld) [Volume fraction] 43.2 % Normal 34.0-46.4 [facility] Comment on above: Performed By: #### P T, HEPATIC, PTT, BMP, CBC, LIPASE #### [address] Hemoglobin (Bld) [Mass/Vol] 14.1 g/dL Normal 11.8-15.4 [facility] Comment on above: Performed By: #### P T, HEPATIC, PTT, BMP, CBC, LIPASE #### [address] Lymphocytes (Bld) [#/Vol] 3.3 10*3/uL Normal 1.00-4.8 [facility] Comment on above: Performed By: #### P T, HEPATIC, PTT, BMP, CBC, LIPASE #### [address] Lymphocytes/100 WBC (Bld) 28.7 % Normal . [facility] Comment on above: Performed By: #### P T, HEPATIC, PTT, BMP, CBC, LIPASE #### [address] MCH (RBC) [Entitic mass] 30.1 pg Normal 24.7-34.3 [facility] Comment on above: Performed By: #### P T, HEPATIC, PTT, BMP, CBC, LIPASE #### [address] MCV (RBC) [Entitic vol] 92.6 fL Normal 80-100 [facility] Comment on above: Performed By: #### P T, HEPATIC, PTT, BMP, CBC, LIPASE #### [address] Mean Corpuscular HGB Conc 32.6 g/dL Normal 32.0-35.0 [facility] Comment on above: Performed By: #### P T, HEPATIC, PTT, BMP, CBC, LIPASE #### [address] Monocytes (Bld) [#/Vol] 0.8 10*3/uL Normal 0.0-0.8 [facility] Comment on above: Performed By: #### P T, HEPATIC, PTT, BMP, CBC, LIPASE #### [address] Monocytes/100 WBC (Bld) 16.00 % Normal 0.00-20.00 [facility] Comment on above: Performed By: #### P T, HEPATIC, PTT, BMP, CBC, LIPASE #### [address] Monocytes/100 WBC (Bld) 6.8 % Normal . [facility] Comment on above: Performed By: #### P T, HEPATIC, PTT, BMP, CBC, LIPASE #### [address] Neutrophils (Bld) [#/Vol] 6.7 10*3/uL Normal 1.8-7.7 [facility] Comment on above: Performed By: #### P T, HEPATIC, PTT, BMP, CBC, LIPASE #### [address] Neutrophils/100 WBC (Bld) 58.5 % Normal . [facility] Comment on above: Performed By: #### P T, HEPATIC, PTT, BMP, CBC, LIPASE #### [address] NRBC% 0.1 /100{WBC} Normal 0-0.5 [facility] Comment on above: Performed By: #### P T, HEPATIC, PTT, BMP, CBC, LIPASE #### [address] Platelet mean volume (Bld) [Entitic vol] 9.8 fL Normal 6.3-10.7 [facility] Comment on above: Performed By: #### P T, HEPATIC, PTT, BMP, CBC, LIPASE #### [address] Platelets (Bld) [#/Vol] 314 10*3/uL Normal 150-450 [facility] Comment on above: Performed By: #### P T, HEPATIC, PTT, BMP, CBC, LIPASE #### [address] RBC (Bld) [#/Vol] 4.67 10*6/uL Normal 3.60-5.00 [facility] Comment on above: Performed By: #### P T, HEPATIC, PTT, BMP, CBC, LIPASE #### [address] WBC (Bld) [#/Vol] 11.5 10*3/uL Normal 3.8-11.6 [facility] Comment on above: Performed By: #### P T, HEPATIC, PTT, BMP, CBC, LIPASE #### [address] Creatinine [Mass/volume] in Serum or PlasmaOrdered By: Joseph Wallace on 01-09-2023 Creatinine [Mass/Vol] 0.57 mg/dL 0.60-1.20 [facility] Dipstick and Microscopicon 0 01-09-2023 Appearance (U) Clear Normal Clear [facility] Comment on above: Order Comment: Name Collection Type:: Clean-Voided Midstream Performed By: #### U RDS, ADDONUAPLUS, UHCG #### [address] [place] [address] [place] Bacteria,Urine None Seen Normal None Seen [facility] Comment on above: Order Comment: Name Collection Type:: Clean-Voided Midstream Performed By: #### U RDS, ADDONUAPLUS, UHCG #### [facility] [address] [place] [address] [place] Bilirubin,Urine Negative Normal Negative [facility] Comment on above: Order Comment: Name Collection Type:: Clean-Voided Midstream Performed By: #### U RDS, ADDONUAPLUS, UHCG #### [facility] [address] [place] [address] [place] Color (U) Yellow Normal Yellow [facility] Comment on above: Order Comment: Name Collection Type:: Clean-Voided Midstream Performed By: #### U RDS, ADDONUAPLUS, UHCG #### [facility] [address] [place] [address] Glucose Ql (U) Normal Normal Normal [facility] Comment on above: Order Comment: Name Collection Type:: Clean-Voided Midstream Performed By: #### U RDS, ADDONUAPLUS, UHCG #### [facility] [address] [place] [address] [place] Hyaline Casts,Urine None Seen Normal 0-8 [facility] Comment on above: Order Comment: Name Collection Type:: Clean-Voided Midstream Performed By: #### U RDS, ADDONUAPLUS, UHCG #### [facility] [address] [place] [address] [place] Ketones Ql (U) Negative Normal Negative [facility] Comment on above: Order Comment: Name Collection Type:: Clean-Voided Midstream Performed By: #### U RDS, ADDONUAPLUS, UHCG #### [facility] [address] [place] [address] [place] Leukocyte esterase Test strip Ql (U) Negative Normal Negative [facility] Comment on above: Order Comment: Name Collection Type:: Clean-Voided Midstream Performed By: #### U RDS, ADDONUAPLUS, UHCG #### [facility] [address] [place] [address] Nitrite,Urine Negative Normal Negative [facility] Comment on above: Order Comment: Name Collection Type:: Clean-Voided Midstream Performed By: #### U RDS, ADDONUAPLUS, UHCG #### [address] Occult Blood,Urine 1+ High Negative [facility] Comment on above: Order Comment: Name Collection Type:: Clean-Voided Midstream Performed By: #### U RDS, ADDONUAPLUS, UHCG #### [address] pH (U) 5.5 [pH] Normal 5.0-9.0 [facility] Comment on above: Order Comment: Name Collection Type:: Clean-Voided Midstream Performed By: #### U RDS, ADDONUAPLUS, UHCG #### [address] Protein,Urine Negative Normal Negative [facility] Comment on above: Order Comment: Name Collection Type:: Clean-Voided Midstream Performed By: #### U RDS, ADDONUAPLUS, UHCG #### [facility] [address] [place] [address] RBC,Urine 10-19 High 0-4 [facility] Comment on above: Order Comment: Name Collection Type:: Clean-Voided Midstream Performed By: #### U RDS, ADDONUAPLUS, UHCG #### [facility] [address] [place] [address] Specificy [place],Urine 1.027 Normal 1.001-1.03 0 [facility] Comment on above: Order Comment: Name Collection Type:: Clean-Voided Midstream Performed By: #### U RDS, ADDONUAPLUS, UHCG #### [address] Squamous Epithelial Cell,Urine 0-1 Normal 0-2 [facility] Comment on above: Order Comment: Name Collection Type:: Clean-Voided Midstream Performed By: #### U RDS, ADDONUAPLUS, UHCG #### [address] Urobilinogen,Urine Normal Normal Normal [facility] Comment on above: Order Comment: Name Collection Type:: Clean-Voided Midstream Performed By: #### U RDS, EMILYPLUS, UHCG #### [address] WBC LM.HPF (Urine sed) [#/Area] 0 /[HPF] Normal 0-4 [facility] Comment on above: Order Comment: Name Collection Type:: Clean-Voided Midstream Performed By: #### U RDS, ADDONUAPLUS, [facility] #### [address] Drug Screen,Urineon 01-10-20 23 Amphetamine Screen,Urine Negative Normal Negative [facility] Comment on above: Performed By: #### P T, HEPATIC, PTT, BMP, CBC, LIPASE #### [address] Barbiturate Screen,Urine Negative Normal Negative [facility] Comment on above: Performed By: #### P T, HEPATIC, PTT, BMP, CBC, LIPASE #### [address] Benzodiazepines Screen,Urine Positive High Negative [facility] Comment on above: Performed By: #### P T, HEPATIC, PTT, BMP, CBC, LIPASE #### [address] Cannabinoid Screen,Urine Positive High Negative [facility] Comment on above: Result Comment: Thes e are unconfirmed results and should not be used for legal purposes. Drug Cut-Off Concentration: AMPH 1000 ng/mL ISAURO 200 ng/mL YULY 200 ng/mL COCM 300 ng/mL OP 300 ng/mL PCP 25 ng/mL THC 20 ng/mL PERFORMED BY: [place] [address] PATHOLOGIST ECOLOGICAL ECONOMIST LUCRECIA NG M.D. Performed By: #### P T, HEPATIC, PTT, BMP, CBC, LIPASE #### [facility] [address] Cocaine Screen,Urine Positive High Negative [facility] Comment on above: Performed By: #### P T, HEPATIC, PTT, BMP, CBC, LIPASE #### [facility] [address] Opiate Screen,Urine Positive High Negative [facility] Comment on above: Performed By: #### P T, HEPATIC, PTT, BMP, CBC, LIPASE #### [facility] [address] Phencyclidine Screen,Urine Negative Normal Negative [facility] Comment on above: Performed By: #### P T, HEPATIC, PTT, BMP, CBC, LIPASE #### [facility] [address] ER URINE PROFILEon 3 Bilirubin Ql (U) Negative Normal NEGATIVE [facility] Comment on above: Performed By: #### DEWAYNE LOPEZRO #### [facility] [address] [place] [address] Dr. Cristopher Godoy Clarity (U) CLEAR Normal CLEAR [facility] Comment on above: Performed By: #### DEWAYNE LOPEZRO #### [facility] [address] [place] [address] Dr. Cristopher Godoy Color (U) LT. YELLOW Normal YELLOW [facility] Comment on above: Performed By: #### DEWAYNE LOPEZRO #### [facility] [address] [place] [address] Dr. Cristopher Godoy ERUAHD A micrscopic examina tion will be performed if indicated. Normal [facility] Comment on above: Performed By: #### DEWAYNE LOPEZRO #### [facility] [address] [place] [address] Dr. Cristopher Godoy Glucose Ql (U) Negative Normal NEGATIVE [facility] Comment on above: Performed By: #### DEWAYNE LOPEZRO #### [facility] [address] [place] [address] Dr. Cristopher Godoy Hemoglobin Ql (U) LARGE Abnormal NEGATIVE [facility] Comment on above: Performed By: #### Cecilia BAUMAN UMICRO #### [facility] [address] [place] [address] Dr. Cristopher Godoy Ketones Ql (U) Negative Normal NEGATIVE [facility] Comment on above: Performed By: #### Cecilia BAUMAN UMICRO #### [facility] [address] [place] [address] Dr. Cristopher Godoy LEUKOCYTES Negative Normal NEGATIVE [facility] Comment on above: Performed By: #### Cecilia BAUMAN UMICRO #### [facility] [address] [place] [address] Dr. Cristopher Godoy Nitrite Ql (U) Negative Normal NEGATIVE [facility] Comment on above: Performed By: #### Cecilia BAUMAN UMICRO #### [facility] [address] [place] [address] Dr. Cristopher Godoy pH (U) 6.0 [pH] Normal 5-9 [facility] Comment on above: Performed By: #### Cecilia BAUMAN UMICRO #### [facility] [address] [place] [address] Dr. Cristopher Godoy SPEC GRAVITY 1.010 Normal 1.005-<=1. 025 [facility] Comment on above: Performed By: #### Cecilia BAUMAN UMICRO #### [facility] [address] [place] [address] Dr. Cristopher Godoy UA PROTEIN Negative Normal NEGATIVE/ TRACE [facility] Comment on above: Performed By: #### Cecilia BAUMAN UMICRO #### [facility] [address] [place] [address] Dr. Cristopher Godoy UR MICRO IND INDICATED Normal [facility] Comment on above: Performed By: #### Cecilia BAUMAN UMICRO #### [facility] [address] [place] [address] Dr. Cristopher Godoy Urobilinogen Qn (U) 0.2 {Kevin'U}/dL Normal 0.2 - 1. 0 [facility] Comment on above: Performed By: #### E RUR, UMICRO #### [facility] [address] [address] [address] Cristopher Godoy Eosinophils Auto (Bld) [#/Vo l]Ordered By: Joseph Wallace on 01-09-2023 Eosinophils (Bld) [#/Vol] 0.6 10*3/uL 0.0-0.45 [facility] Eosinophils/100 WBC Auto (Bl d)Ordered By: Joseph Wallace on 01-09-2023 Eosinophils/100 WBC (Bld) 5.4 % . [facility] Erythrocyte distribution wid th Auto (RBC) [Ratio]Ordered By: Joseph Wallace on 01-09-2023 Erythrocyte distribution width (RBC) [Ratio] 14.2 % 11.9-15.3 [facility] Globulin Calc (S) [Mass/Vol] Ordered By: Joseph Wallace on 01-09-2023 Globulin (S) [Mass/Vol] 2.7 g/dL [facility] Glucose [Mass/volume] in Ser um or PlasmaOrdered By: Joseph Wallace on 01-09-2023 Glucose [Mass/Vol] 85 mg/dL 74-109 [facility] Comment on above: ADA recommended refe rence rangeRandom Glucose Reference Range is dependent on time and content of last meal. Glucose of more than 200 mg/dL in a nonstressed, ambulatory subject supports the diagnosis of Diabetes Mellitus. HCG ( test) IA.rapi d Ql (U)Ordered By: Joseph Wallace on 01-09-2023 HCG ( test) Ql (U) Negative [facility] HCG,Urineon 01-09-2023 Beta HCG ( test) Ql (U) Negative Normal [facility] Comment on above: Order Comment: Name Collection Type:: Clean-Voided Midstream Result Comment: PERF ORMED BY: [facility] [address] [place] [address] PATHOLOGIST ECOLOGICAL ECONOMIST LUCRECIA NG M.D. Performed By: #### U RDS, ADDONUAPLUS, UHCG #### [facility] [address] Hematocrit Auto (Bld) [Volum e fraction]Ordered By: Joseph Wallace on 01-09-2023 Hematocrit (Bld) [Volume fraction] 43.2 % 34.0-46.4 [facility] Hemoglobin [Mass/volume] in BloodOrdered By: Joseph Wallace on 01-09-2023 Hemoglobin (Bld) [Mass/Vol] 14.1 g/dL 11.8-15.4 [facility] Hepatic Panelon 01-09-2023 Albumin [Mass/Vol] 4.4 g/dL Normal 3.5-5.7 [facility] Comment on above: Performed By: #### P T, HEPATIC, PTT, BMP, CBC, LIPASE #### [facility] [address] [id number] [place] Albumin/Globulin [Mass ratio] 1.6 {ratio} Normal [facility] Comment on above: Performed By: #### P T, HEPATIC, PTT, BMP, CBC, LIPASE #### [facility] [address] [place] [address] [place] ALP [Catalytic activity/Vol] 77 U/L Normal 34-104 [facility] Comment on above: Performed By: #### P T, HEPATIC, PTT, BMP, CBC, LIPASE #### [facility] [address] [place] [address] [place] ALT [Catalytic activity/Vol] 16 U/L Normal 7-52 [facility] Comment on above: Performed By: #### P T, HEPATIC, PTT, BMP, CBC, LIPASE #### [facility] [address] [id number] [place] AST [Catalytic activity/Vol] 16 U/L Normal 13-39 [facility] Comment on above: Performed By: #### P T, HEPATIC, PTT, BMP, CBC, LIPASE #### [facility] [address] [place] [address] [place] Bilirubin [Mass/Vol] 0.5 mg/dL Normal 0.3-1.0 [facility] Comment on above: Performed By: #### P T, HEPATIC, PTT, BMP, CBC, LIPASE #### [facility] [address] [id number] [place] Bilirubin,Indirect 0.4 mg/dL Normal [facility] Comment on above: Performed By: #### P T, HEPATIC, PTT, BMP, CBC, LIPASE #### [facility] [address] Bilirubin.indirect [Mass/Vol] 0.10 mg/dL Normal 0.03-0.18 [facility] Comment on above: Performed By: #### P T, HEPATIC, PTT, BMP, CBC, LIPASE #### [facility] [address] Globulin (S) [Mass/Vol] 2.7 g/dL Normal [facility] Comment on above: Performed By: #### P T, HEPATIC, PTT, BMP, CBC, LIPASE #### [facility] [address] Protein [Mass/Vol] 7.1 g/dL Normal 6.4-8.9 [facility] Comment on above: Performed By: #### P T, HEPATIC, PTT, BMP, CBC, LIPASE #### [facility] [address] Ketones Auto test strip (U) [Mass/Vol]Ordered By: Joseph Wallace on 01-09-2023 Ketones (U) [Mass/Vol] Negative Negative [facility] - Chemistry and C hemistry - challengeOrdered By: Joseph Wallace on 01-09-2023 GFR/1.73 sq M.predicted MDRD (S/P/Bld) [Vol rate/Area] mL/min/{1.73_m2} [facility] Laboratory - CoagulationOrde red By: Joseph Wallace on 01-09-2023 PT Coag (PPP) [Time] 10.4 s 9.0-12.9 [facility] - UrinalysisOrder ed By: Joseph Wallace on 01-09-2023 Hyaline casts LM Ql (Urine sed) None seen [LPF] 0-8 [facility] Leukocytes [#/volume] correc ifrah for nucleated erythrocytes in Blood by Automated counOrdered By: Joseph Wallace on 01-09-2023 WBC corrected for nucl RBC Auto (Bld) [#/Vol] 11.5 10*3/uL 3.8-11.6 [facility] Lipaseon 01-09-2023 Lipase [Catalytic activity/Vol] 12.0 U/L Normal 11.0-82.0 [facility] Comment on above: Result Comment: PERF ORMED BY: [place] [address] PATHOLOGIST ECOLOGICAL ECONOMIST LUCRECIA NG M.D. Performed By: #### P T, HEPATIC, PTT, BMP, CBC, LIPASE #### [facility] [address] Lipase [Enzymatic activity/v olume] in Serum or PlasmaOrdered By: Joseph Wallace on 01-09-2023 Lipase [Catalytic activity/Vol] 12.0 U/L 11.0-82.0 [facility] Lymphocytes Auto (Bld) [#/Vo l]Ordered By: Joseph Wallace on 01-09-2023 Lymphocytes (Bld) [#/Vol] 3.3 10*3/uL 1.00-4.8 [facility] Lymphocytes/100 WBC Auto (Bl d)Ordered By: Joseph Wallace on 01-09-2023 Lymphocytes/100 WBC (Bld) 28.7 % . [facility] MCH Auto (RBC) [Entitic mass ]Ordered By: Joseph Wallace on 01-09-2023 MCH (RBC) [Entitic mass] 30.1 pg 24.7-34.3 [facility] MCHC Auto (RBC) [Mass/Vol]Or dered By: Joseph Wallace on 01-09-2023 MCHC (RBC) [Mass/Vol] 32.6 g/dL 32.0-35.0 [facility] MCV Auto (RBC) [Entitic vol] Ordered By: Joseph Wallace on 01-09-2023 MCV (RBC) [Entitic vol] 92.6 fL 80-100 [facility] Monocyte distribution width [Entitic volume] in Blood by AutomatedOrdered By: Joseph Wallace on 01-09-2023 Monocyte distribution width Auto (Bld) [Entitic vol] 16.00 % 0.00-20.00 [facility] Monocytes Auto (Bld) [#/Vol] Ordered By: Joseph Wallace on 01-09-2023 Monocytes (Bld) [#/Vol] 0.8 10*3/uL 0.0-0.8 [facility] Monocytes/100 WBC Auto (Bld) Ordered By: Joseph Wallace on 01-09-2023 Monocytes/100 WBC (Bld) 6.8 % . [facility] Neutrophils Auto (Bld) [#/Vo l]Ordered By: Joseph Wallace on 01-09-2023 Neutrophils (Bld) [#/Vol] 6.7 10*3/uL 1.8-7.7 [facility] Neutrophils/100 WBC Auto (Bl d)Ordered By: Joseph Wallace on 01-09-2023 Neutrophils/100 WBC (Bld) 58.5 % . [facility] Nitrite Test strip Ql (U)Ord ered By: Joseph Wallace on 01-09-2023 Nitrite Ql (U) Negative Negative [facility] No Panel InformationOrdered By: Joseph Wallace on 01-09-2023 Pharmacy Creatinine Clearance (Chem 141.51 [facility] Nucleated erythrocytes [Pres ence] in Blood by Automated countOrdered By: Joseph Wallace on 01-09-2023 Nucleated RBC Auto Ql (Bld) 0.1 /100{WBC} 0-0.5 [facility] Opiates [Presence] in Urine by Screen methodOrdered By: Joseph Wallace on 01-09-2023 Opiates Screen Ql (U) Positive Negative [facility] PREG HCG QUALon 01-09-2023 , QUAL Negative Normal NEGATIVE [facility] Comment on above: Performed By: #### P REG #### [facility] [address] [address] [address] Cristopher Godoy PROF CHEM 8 (BAS METB)on Anion gap [Moles/Vol] 10.6 mmol/L Normal [facility] Comment on above: Performed By: #### B MP #### [facility] [address] [place] [address] Dr. Cristopher Godoy Calcium [Mass/Vol] 8.7 mg/dL Normal 8.5-10.1 [facility] Comment on above: Performed By: #### B MP #### [facility] [address] [address] [address] Cristopher Godoy Chloride [Moles/Vol] 103 mmol/L Normal 98-107 [facility] Comment on above: Performed By: #### B MP #### [facility] [address] [address] [address] Cristopher Godoy CO2 [Moles/Vol] 28.0 mmol/L Normal 21.0-32.0 [facility] Comment on above: Performed By: #### B MP #### [facility] [address] [address] [address] Cristopher Godoy Creatinine [Mass/Vol] 0.62 mg/dL Normal 0.55-1.02 [facility] Comment on above: Performed By: #### B MP #### [facility] [address] [place] [address] Dr. Cristopher Godoy EGFR-AF TANZANIAN >60 Normal >=60 [facility] Comment on above: Performed By: #### B MP #### [facility] [address] [address] [address] Cristopher Godoy EGFR-NON AF TANZANIAN >60 Normal >=60 [facility] Comment on above: Performed By: #### B MP #### [facility] [address] [place] [address] Dr. Cristopher Godoy Glucose [Mass/Vol] 128 mg/dL Critically high 74-106 [facility] Comment on above: Performed By: #### B MP #### [facility] [address] [address] [address] Cristopher Godoy Potassium [Moles/Vol] 3.6 mmol/L Normal 3.5-5.1 [facility] Comment on above: Performed By: #### B MP #### [facility] [address] [place] [address] Dr. Cristopher Godoy Sodium [Moles/Vol] 138 mmol/L Normal 136-145 [facility] Comment on above: Performed By: #### B MP #### [facility] [address] [place] [address] Dr. Cristopher Godoy Urea nitrogen [Mass/Vol] 13.0 mg/dL Normal 7.0-18.0 [facility] Comment on above: Performed By: #### B MP #### [facility] [address] [place] [address] Dr. Cristopher Godoy Urea nitrogen/Creatinine [Mass ratio] 21.0 mg/mg Normal [facility] Comment on above: Performed By: #### B MP #### [facility] [address] [address] [address] Cristopher Godoy Partial Thromboplastin Timeo n 01-09-2023 aPTT Coag (Bld) [Time] 30.5 s Normal 25.1-36.5 [facility] Comment on above: Result Comment: PERF ORMED BY: [place] [address] PATHOLOGIST ECOLOGICAL ECONOMIST LUCRECIA NG M.D. Performed By: #### P T, HEPATIC, PTT, BMP, CBC, LIPASE #### [facility] [address] [place] [address] Phencyclidine Screen Ql (U)O rdered By: Joseph Wallace on 01-09-2023 Phencyclidine Ql (U) Negative Negative [facility] Platelet mean volume Auto (B ld) [Entitic vol]Ordered By: Joseph Wallace on 01-09-2023 Platelet mean volume (Bld) [Entitic vol] 9.8 fL 6.3-10.7 [facility] Platelet poor plasma interna tional normalized ratio (INR) by coagulation assay (relatOrdered By: Joseph Wallace on 01-09-2023 INR Coag (PPP) [Relative time] 0.9 {INR} [facility] Comment on above: INR Therapeutic Rang e A) Pre- and Peroperative OAT started two weeks before surgery. NOT HIP SURGERY: 1.5 - 2.5 HIP SURGERY: 2 - 3B) Primary and secondary prevention of venous THROMBOSIS: 2 - 3C) Active venous thrombosis, pulmonary embolismand prevention of recurrent venous thrombosis: 2 - 3D) Prevention of arterial thromboembolismincluding patients with mechanical heart valves: 3 - 4.5 Platelets Auto (Bld) [#/Vol] Ordered By: Joseph Wallace on 01-09-2023 Platelets (Bld) [#/Vol] 314 10*3/uL 150-450 [facility] Potassium [Moles/volume] in Serum or PlasmaOrdered By: Joseph Wallace on 01-09-2023 Potassium [Moles/Vol] 3.9 mmol/L 3.5-5.1 [facility] Protein Auto test strip (U) [Mass/Vol]Ordered By: Joseph Wallace on 01-09-2023 Protein (U) [Mass/Vol] Negative Negative [facility] Protein [Mass/volume] in Ser um or PlasmaOrdered By: Joseph Wallace on 01-09-2023 Protein [Mass/Vol] 7.1 g/dL 6.4-8.9 [facility] Prothrombin Time INRon 01-09 INR Coag (PPP) [Relative time] 0.9 {INR} Normal [facility] Comment on above: Result Comment: INR Therapeutic Range A) Pre- and Peroperative OAT started two weeks before surgery. NOT HIP SURGERY: 1.5 - 2.5 HIP SURGERY: 2 - 3 B) Primary and secondary prevention of venous THROMBOSIS: 2 - 3 C) Active venous thrombosis, pulmonary embolism and prevention of recurrent venous thrombosis: 2 - 3 D) Prevention of arterial thromboembolism including patients with mechanical heart valves: 3 - 4.5 Performed By: #### P T, HEPATIC, PTT, BMP, CBC, LIPASE #### [facility] [address] PT Coag (PPP) [Time] 10.4 s Normal 9.0-12.9 [facility] Comment on above: Performed By: #### P T, HEPATIC, PTT, BMP, CBC, LIPASE #### [facility] [address] RBC Auto (Bld) [#/Vol]Ordere d By: Joseph Wallace on 01-09-2023 RBC (Bld) [#/Vol] 4.67 10*6/uL 3.60-5.00 [facility] Serum or plasma albumin/glob ulin mass ratioOrdered By: Joseph Wallace on 01-09-2023 Albumin/Globulin [Mass ratio] 1.6 {ratio} [facility] Serum or plasma anion gap de terminationOrdered By: Joseph Wallace on 01-09-2023 Anion gap [Moles/Vol] 12.6 mmol/L 6.0-15.0 [facility] Serum or plasma non-glucuron idated bilirubin measurement (mass/volume)Ordered By: Joseph Wallace on 01-09-2023 Bilirubin.indirect [Mass/Vol] 0.4 mg/dL [facility] Sodium [Moles/volume] in Ser um or PlasmaOrdered By: Joseph Wallace on 01-09-2023 Sodium [Moles/Vol] 141 mmol/L 136-145 [facility] Specific gravity Auto test s trip (U) [Rel density]Ordered By: Joseph Wallace on 01-09-2023 Specific gravity (U) [Rel density] 1.027 1.001-1.03 0 [facility] Squamous epithelial cells de tection in urine sediment by light microscopyOrdered By: Joseph Wallace on 01-09-2023 Epithelial cells.squamous LM Ql (Urine sed) 0-1 [HPF] 0-2 [facility] URINE MICROSCOPIC ONLYon BACTERIA NONE SEEN Normal NONE SEEN [facility] Comment on above: Performed By: #### DEWAYNE LOPEZRO #### [facility] [address] [place] [address] Dr. Cristopher Godoy Bacteria identified Cx Nom (U) NOT INDICATED Normal [facility] Comment on above: Performed By: #### Cecilia BAUMAN UMICRO #### [facility] [address] [address] [address] Cristopher Godoy CAST NONE SEEN Normal NONE SEEN [facility] Comment on above: Performed By: #### Cecilia BAUMAN UMICRO #### [facility] [address] [address] [address] Cristopher Godoy Crystals LM Nom (Urine sed) NONE SEEN Normal NONE SEEN [facility] Comment on above: Performed By: #### Cecilia BAUMAN UMICRO #### [facility] [address] [address] [address] Cristopher Godoy Epithelial cells LM Ql (Urine sed) FEW Abnormal NONE SEEN /RARE [facility] Comment on above: Performed By: #### E RUR, UMICRO #### [facility] [address] [address] [address] Cristopher Godoy MUCOUS NONE SEEN Normal NONE SEEN [facility] Comment on above: Performed By: #### E RUR, UMICRO #### [facility] [address] [address] [address] Cristopher Godoy RBC 5-10 Abnormal 0-2 [facility] Comment on above: Performed By: #### E RUR, UMICRO #### [facility] [address] [address] [address] Cristopher Godoy WBC 0-2 Abnormal NONE SEEN [facility] Comment on above: Performed By: #### E RUR, UMICRO #### [facility] [address] [address] [address] Cristopher Godoy US transvaginalon 01-09-2023 US transvaginal [facility] [place] [address] Ultrasound Report Signed Patient: Sofia Mcgowan MR#: [id number] : 2000 Acct:[id number] Age/Sex: 22 / F ADM Date: 01/09/23 Loc: ER Room: Type: [facility] ER Attending Dr: Ordering Provider: Joseph Wallace DO Date of Service: 01/09/23 US/US pelvic complete: ABDOMINAL PAIN ([id number]) US/US transvaginal: PAIN Copies to: Joseph Wallace DO PELVIC ULTRASOUND (transabdominal and transvaginal) COMPARISON: None CLINICAL DATA: Left lower quadrant pain and vaginal bleeding. Reported history of left ovarian cyst at outside hospital. Real-time ultrasound evaluation the pelvis was performed utilizing both a transabdominal and transvaginal approach. TRANSABDOMINAL: The urinary bladder is not well distended. Estimated uterine size is approximately 6.6 x 2.8 x 6 4.1 cm. No focal myometrial abnormalities are noted. The endometrial lining is not thickened. Both ovaries are seen. There are small follicles. There are also large cystic structures anterior to the uterus though closer to the left ovary. Cursory evaluation of the kidneys shows no hydronephrosis or perinephric fluid. TRANSVAGINAL: Transvaginal scans were performed to better evaluate the uterus and adnexa. By this approach, no focal myometrial abnormalities are identified. The endometrial lining is estimated at 3 - 4 mm. The left ovary measures 3.6 x 2.5 x 3.1 cm. There are small follicles within the ovary. The right ovary measures 5.5 x 3.1 x 3.5 cm and also has small follicles. Between the ovaries anterior to the uterus, there is either a septated cystic structure or 2 adjacent cystic structures with the entire area measuring 9.9 x 5.2 x 8.6 cm in size. The larger component measures 6.0 x 5.7 x 6.0 cm in size. The other component has intraluminal debris and measures 5.7 x 3.8 x 4.0 cm. The site of origin is difficult to determine though this is her closer to the left. This would correlate with the report from the outside imaging. No free fluid was identified. US/US pelvic complete IMPRESSION: LARGE MILDLY COMPLICATED CYST OR CYSTS ANTERIOR TO THE UTERUS IN CLOSER PROXIMITY TO THE LEFT OVARY, DESCRIBED. COMPARISON TO PATIENT'S PREVIOUS OUTSIDE STUDY IS SUGGESTED. NO ADDITIONAL ACUTE FINDINGS. Impression dictated by: Chelsea Ceja M.D.01/09/2023 2:27 PM Dictation Location: [place] [address] Tech: Marian Kelly Transcribed By: CHAZ 01/09/23 1427 Dictated By: Chelsea Ceja MD 01/09/23 1344 Signed By: 01/09/23 1427 Normal [facility] Urea nitrogen [Mass/volume] in Serum or PlasmaOrdered By: Joseph Wallace on 01-09-2023 Urea nitrogen [Mass/Vol] 12 mg/dL 7-25 [facility] Urine bacteria detection by automated methodOrdered By: Joseph Wallace on 01-09-2023 Bacteria Auto Ql (U) None seen None Seen [facility] Urine clarity by refractomet ry automatedOrdered By: Joseph Wallace on 01-09-2023 Clarity Refractometry automated (U) Clear Clear [facility] Urine glucose measurement by automated test strip (mass/volume)Ordered By: Joseph Wallace on 01-09-2023 Glucose Auto test strip (U) [Mass/Vol] Normal mg/dL Normal [facility] Urine hemoglobin detection b y automated test stripOrdered By: Joseph Wallace on 01-09-2023 Hemoglobin Auto test strip Ql (U) 1+ Negative [facility] Urine leukocyte esterase det ection by automated test stripOrdered By: Joseph Wallace on 01-09-2023 Leukocyte esterase Auto test strip Ql (U) Negative Negative [facility] Urobilinogen Auto test strip (U) [Mass/Vol]Ordered By: Joseph Wallace on 01-09-2023 Urobilinogen (U) [Mass/Vol] Normal mg/dL Normal [facility] WBC Auto (Bld) [#/Vol]Ordere d By: Joseph Wallace on 01-09-2023 WBC (Bld) [#/Vol] 11.5 10*3/uL 3.8-11.6 [facility] pH Auto test strip (U)Ordere d By: Joseph Wallace on 01-09-2023 pH (U) 5.5 [pH] 5.0-9.0 [facility] CBC AUTO DIFFon 01-05-2023 BASO # 0.1 103/ul Normal 0.0-0.1 [facility] Comment on above: Performed By: #### C BC #### [facility] [address] [place] [address] Dr. Cristopher Godoy Basophils/100 WBC (Bld) 0.6 % Normal 0.2-2.0 [facility] Comment on above: Performed By: #### C BC #### [facility] [address] [address] [address] Cristopher Godoy EO # 0.6 103/ul Normal 0.0-0.7 [facility] Comment on above: Performed By: #### C BC #### [facility] [address] [address] [address] Cristopher Godoy Eosinophils/100 WBC (Bld) 5.7 % Normal 0.9-7.0 [facility] Comment on above: Performed By: #### C BC #### [facility] [address] [place] [address] Dr. Cristopher Godoy Erythrocyte distribution width (RBC) [Ratio] 13.6 % Normal 11.0-15.0 [facility] Comment on above: Performed By: #### C BC #### [facility] [address] [place] [address] Dr. Cristopher Godoy Hematocrit (Bld) [Volume fraction] 46.7 % Normal 36.0-48.0 [facility] Comment on above: Performed By: #### C BC #### [facility] [address] [place] [address] Dr. Cristopher Godoy Hemoglobin (Bld) [Mass/Vol] 15.2 g/dL Normal 12.0-16.0 [facility] Comment on above: Performed By: #### C BC #### [facility] [address] [place] [address] Dr. Cristopher Godoy IG # 0.03 10e3/ul Normal 0.00-0.03 [facility] Comment on above: Performed By: #### C BC #### [facility] [address] [place] [address] Dr. Cristopher Godoy IG % 0.3 % Normal 0.0-0.5 [facility] Comment on above: Performed By: #### C BC #### [facility] [address] [place] [address] Dr. Cristopher Godoy LYMPH # 3.3 103/ul Normal 1.2-3.8 [facility] Comment on above: Performed By: #### C BC #### [facility] [address] [place] [address] Dr. Cristopher Godoy Lymphocytes/100 WBC (Bld) 29.2 % Normal 20.5-60.0 [facility] Comment on above: Performed By: #### C BC #### [facility] [address] [place] [address] Dr. Cristopher Godoy MANUAL DIFF REQ NO Normal [facility] Comment on above: Performed By: #### C BC #### [facility] [address] [place] [address] Dr. Cristopher Godoy MCH (RBC) [Entitic mass] 29.9 pg Normal 26.7-34.0 [facility] Comment on above: Performed By: #### C BC #### [facility] [address] [place] [address] Dr. Cristopher Godoy MCHC (RBC) [Mass/Vol] 32.5 g/dL Normal 29.9-35.2 [facility] Comment on above: Performed By: #### C BC #### [facility] [address] [place] [address] Dr. Cristopher Godoy MCV (RBC) [Entitic vol] 91.9 fL Normal 81.0-99.0 [facility] Comment on above: Performed By: #### C BC #### [facility] [address] [place] [address] Dr. Cristopher Godoy MONO # 0.7 103/ul Normal 0.3-0.8 [facility] Comment on above: Performed By: #### C BC #### [facility] [address] [place] [address] Dr. Cristopher Godoy Monocytes/100 WBC (Bld) 6.3 % Normal 1.7-12.0 [facility] Comment on above: Performed By: #### C BC #### [facility] [address] [place] [address] Dr. Cristopher Godoy NEUT # 6.5 103/ul Normal 1.4-6.5 [facility] Comment on above: Performed By: #### C BC #### [facility] [address] [place] [address] Dr. Cristopher Godoy Neutrophils/100 WBC (Bld) 57.9 % Normal 43.0-75.0 [facility] Comment on above: Performed By: #### C BC #### [facility] [address] [place] [address] Dr. Cristopher Godoy Platelet mean volume (Bld) [Entitic vol] 11.1 fL Normal 9.5-13.5 [facility] Comment on above: Performed By: #### C BC #### [facility] [address] [place] [address] Dr. Cristopher Godoy PLT 360 103/ul Normal 150-450 [facility] Comment on above: Performed By: #### C BC #### [facility] [address] [address] [address] Cristopher Godoy RBC 5.08 106/ul Normal 4.20-5.40 [facility] Comment on above: Performed By: #### C BC #### [facility] [address] [address] [address] Cristopher Godoy WBC 11.2 103/ul Critically high 4.0-11.0 [facility] Comment on above: Performed By: #### C BC #### [facility] [address] [address] [address] Cristopher Godoy ER URINE PROFILEon 3 Bilirubin Ql (U) Negative Normal NEGATIVE [facility] Comment on above: Performed By: #### U MICRO, ERUR ####[facility] [address] [address]Dr. Cristopher Godoy Clarity (U) CLEAR Normal CLEAR [facility] Comment on above: Performed By: #### U MICRO, ERUR ####[facility] [address] [address]Dr. Cristopher Godoy Color (U) LT. YELLOW Normal YELLOW [facility] Comment on above: Performed By: #### U MICRO, ERUR ####[facility] [address] [address]Dr. Cristopher Godoy ERUAHD A micrscopic examina tion will be performed if indicated. Normal [facility] Comment on above: Performed By: #### U MICRO, ERUR ####[facility] [address] [address]Dr. Cristopher Godoy Glucose Ql (U) Negative Normal NEGATIVE [facility] Comment on above: Performed By: #### U MICRO, ERUR ####[facility] [address] [address]Dr. Cristopher Godoy Hemoglobin Ql (U) SMALL Abnormal NEGATIVE [facility] Comment on above: Performed By: #### U MICRO, ERUR ####[facility] [address] [address]Dr. Cristopher Godoy Ketones Ql (U) Negative Normal NEGATIVE [facility] Comment on above: Performed By: #### U MICRO, ERUR ####[facility] [address] [address]Dr. Cristopher Godoy LEUKOCYTES Negative Normal NEGATIVE [facility] Comment on above: Performed By: #### U MICRO, ERUR ####[facility] [address] [address]Dr. Cristopher Godoy Nitrite Ql (U) Negative Normal NEGATIVE [facility] Comment on above: Performed By: #### U MICRO, ERUR ####[facility] [address] [place], [place] [address]Dr. Cristopher Walt pH (U) 6.0 [pH] Normal 5-9 [facility] Comment on above: Performed By: #### U MICRO, ERUR ####[facility] [address] [place], [place] [address]Dr. Cristopher Walt SPEC GRAVITY <=1.005 Abnormal 1.005-<=1. 025 [facility] Comment on above: Performed By: #### U MICRO, ERUR ####[facility] [address] [place], [place] [address]Dr. Cristopher Godoy UA PROTEIN Negative Normal NEGATIVE/ TRACE [facility] Comment on above: Performed By: #### U MICRO, ERUR ####[facility] [address] [place], [place] [address]Dr. Cristopher Godoy UR MICRO IND INDICATED Normal [facility] Comment on above: Performed By: #### U MICRO, ERUR ####[facility] [address] [place], [place] [address]Dr. Cristopher Godoy Urobilinogen Qn (U) 0.2 {Kevin'U}/dL Normal 0.2 - 1. 0 [facility] Comment on above: Performed By: #### U MICRO, ERUR ####[facility] [address] [place], [place] [address]Dr. Cristopher Godoy PREG HCG QUALon 01-05-2023 , QUAL Negative Normal NEGATIVE [facility] Comment on above: Performed By: #### P REG #### [facility] [address] [address] [address] Cristopher Godoy PROF CHEM 8 (BAS METB)on Anion gap [Moles/Vol] 15.3 mmol/L Normal [facility] Comment on above: Performed By: #### B MP ####[facility] [address] [address]Dr. Cristopher Godoy Calcium [Mass/Vol] 9.8 mg/dL Normal 8.5-10.1 [facility] Comment on above: Performed By: #### B MP ####[facility] [address] [address]DrHawk Godoy Chloride [Moles/Vol] 106 mmol/L Normal 98-107 [facility] Comment on above: Performed By: #### B MP ####[facility] [address] [address]DrHawk Godoy CO2 [Moles/Vol] 25.2 mmol/L Normal 21.0-32.0 [facility] Comment on above: Performed By: #### B MP ####[facility] [address] [address]DrHawk Godoy Creatinine [Mass/Vol] 0.58 mg/dL Normal 0.55-1.02 [facility] Comment on above: Performed By: #### B MP ####[facility] [address] [place] [address]DrHawk Godoy EGFR-AF TANZANIAN >60 Normal >=60 [facility] Comment on above: Performed By: #### B MP ####[facility] [address] [address]Dr. Cristopher Godoy EGFR-NON AF TANZANIAN >60 Normal >=60 [facility] Comment on above: Performed By: #### B MP ####[facility] [address] [address]DrHawk Godoy Glucose [Mass/Vol] 89 mg/dL Normal 74-106 [facility] Comment on above: Performed By: #### B MP ####[facility] [address] [address]Dr. Cristopher Godoy Potassium [Moles/Vol] 4.5 mmol/L Normal 3.5-5.1 [facility] Comment on above: Performed By: #### B MP ####[facility] [address] [place], [place] [address]Dr. Cristopher Godoy Sodium [Moles/Vol] 142 mmol/L Normal 136-145 [facility] Comment on above: Performed By: #### B MP ####[facility] [address] [place], [place] [address]Dr. Dayanaraisa Walt Urea nitrogen [Mass/Vol] 12.0 mg/dL Normal 7.0-18.0 [facility] Comment on above: Performed By: #### B MP ####[facility] [address] [place], [place] [address]Dr. Cristopher Godoy Urea nitrogen/Creatinine [Mass ratio] 20.7 mg/mg Normal [facility] Comment on above: Performed By: #### B MP ####[facility] Uh[address] [place], [place] [address]Dr. Dayanaraisa Walt URINE MICROSCOPIC ONLYon BACTERIA NONE SEEN Normal NONE SEEN [facility] Comment on above: Performed By: #### U MICRO, ERUR ####[facility] Gof[address] [place], [place] [address]Dr. Cristopher Godoy Bacteria identified Cx Nom (U) NOT INDICATED Normal [facility] Comment on above: Performed By: #### U MICRO, ERUR ####[facility] [address] [place], [place] [address]Dr. Cristopher Godoy CAST NONE SEEN Normal NONE SEEN [facility] Comment on above: Performed By: #### U MICRO, ERUR ####[facility] [address] [place], [place] [address]Dr. Cristopher Godoy Crystals LM Nom (Urine sed) NONE SEEN Normal NONE SEEN [facility] Comment on above: Performed By: #### U MICRO, ERUR ####[facility] [address] [id number]. Cristopher Godoy Epithelial cells LM Ql (Urine sed) MODERATE Abnormal NONE SEEN /RARE [facility] Comment on above: Performed By: #### U MICRO, ERUR ####[facility] [address] [id number]. Dayanaraisa Godoy MUCOUS TRACE Abnormal NONE SEEN [facility] Comment on above: Performed By: #### U MICRO, ERUR ####[facility] [address] [id number]. Dayanaraisa Godoy RBC 2-5 Abnormal 0-2 [facility] Comment on above: Performed By: #### U MICRO, ERUR ####[facility] [address] [address]Dr. Dayanaraisa Godoy WBC NONE SEEN Normal NONE SEEN [facility] Comment on above: Performed By: #### U MICRO, ERUR ####[facility] [address] [phone]. Cristopher Godoy US PELVIS TRANSVAGon 023 US PELVIS TRANSVAG EXAMINATION: US PELV IS TRANSVAG HISTORY: Pain COMPARISON: No relevant comparison available. FINDINGS: The uterus is normal in size, contour and echotexture, anteverted. Uterus measures 6.3 x 2.9 x 3.9 cm. No focal myometrial mass The endometrium measures 5.3 mm, normal. The right ovary is normal in appearance measuring 2.7 x 3.3 x 2.6 cm. Normal color and Doppler flow The left ovary measures 3.3 x 3.0 x 4.0 cm. Normal color and Doppler flow. Avascular anechoic cystic area measuring 6.3 x 5.7 x 4.8 cm. Complex cystic avascular lesion measuring 4.7 x 4.1 x 3.7 with low level internal echoes. Multiple subcentimeter follicles IMPRESSION: 4.7 cm left ovarian cystic lesion, consider a complex cyst, hemorrhagic cyst or endometrioma 6.3 cm left ovarian simple cyst Electronically authenticated by: GABBY CHARLES Date: 2023-01-05 10:03 Normal [facility] Post Op (Breast Surgery)on 0 05-08-2022 Post Op (Breast Surgery) No report was sent Normal [employer] CORONAVIRUS 2019, SCREEN ASY MPTOMATICon 04-25-2022 SARS-CoV-2 (COVID-19) RNA HUMBERTO+probe Ql (Unsp spec) Not detected Normal Not Detected [facility] Comment on above: Result Comment: . This assay is designed to detect the N, ORF1ab and/or S genes of SARS-CoV-2 via nucleic acid amplification. A Negative (NOT DETECTED) result does not preclude 2019-nCoV infection since the adequacy of sample collection and/or low viral burden may result in presence of viral nucleic acids below the clinical sensitivity of this test method. Negative (NOT DETECTED) result should not be used as the sole basis for treatment or other patient management decisions. Rather negative results should be combined with clinical observations, patient history, and epidemiological information to make patient management decisions. Fact sheet for providers: https://www.fda.gov/media/571339/download Fact sheet for patients: https://www.fda.gov/media/180330/download This test has received FDA Emergency Use Authorization (EUA) and has been verified by [facility] ([facility]). This test is only authorized for the duration of time that circumstances exist to justify the authorization of the emergency use of in vitro diagnostic tests for the detection of SARS-CoV-2 virus and/or diagnosis of COVID-19 infection under section 564(b)(1) of the Act, 21 U.S.C. 360bbb-3(b)(1), unless the authorization is terminated or revoked sooner. [facility] is certified under CLIA-88 as qualified to perform high complexity testing. Testing is performed in the [facility] laboratories located at [address] [place] [address]. Performed By: #### C OVSC #### [address] [place] [address] Covid 19 Resultson 2 SARS-CoV-2 (COVID-19) RNA HUMBERTO+probe Ql (Unsp spec) NEGATIVE COVID-19 Test Coronaviruses are common world-wide and are the cause of many common colds. SARS-COV2 is a new coronavirus that began circulating worldwide in 2019 so we are calling it COVID-19. It has been estimated that four out of five patients with COVID-19 will recover at home without the need for medical attention. Symptoms of COVID-19 may include cough, fever, shortness of breath, loss of taste or smell and other flu-like symptoms including chills, sore muscles, sore throat, and headache. Severe illness is more common in older people and people with other health problems such as high blood pressure, obesity, and immune system problems. If the test is positive, you have COVID-19. You will be contacted by the ordering physicians office and instructed to remain on home isolation, in accordance with CDC guidelines. You may also be contacted by the [facility] to see if any of your close contacts may have been exposed to the virus and need to quarantine. If the test is negative, you likely do not have COVID-19 at this time, but you still may have a different illness that can spread to other people (like Influenza, or the Flu) and could still be at risk for getting COVID-19. We recommend that you stay away from other people to limit the spread of illness until your symptoms are improving and you are fever-free for 24 hours without the use of fever lowering medications such as acetaminophen or ibuprofen. No test is 100% accurate so if you are still concerned you may have COVID-19, talk to your doctor about the need to continue to stay away from others. Medicines Unless your provider told you not to use the following: Acetaminophen (Tylenol and others) is generally safe. Anti-inflammatory medications, such as Ibuprofen (Advil or Motrin) or Naproxen (Aleve) can also be used. Uwoj-lbl-umluade cough and cold medicines can be used according to the instructions on the package. Some bkzf-cfd-gqpcdki medicines also contain acetaminophen. Make sure you are not taking more than your recommended dose. For those not hospitalized, there is no specific treatment available for this illness. Antibiotics do not treat Coronaviruses. Follow-Up Follow up with your doctor by scheduling a virtual visit or consider follow-up at one of our urgent care fever clinics. If you are having difficulty breathing, or are very weak and having difficulty standing, this is a medical emergency. Call 911 or have someone take you to the nearest emergency room immediately. If possible, wear a facemask. Additional guidance from the CDC for patients who tested POSITIVE for COVID-19 How to isolate: Isolate yourself in a specific room at home and limit your contact with others. Use a separate bathroom from other members of the household, when possible. Leave home only to get essential medical care. Do not go to work, school or public areas. Avoid using public transportation, ride-sharing, or taxis. Restrict contact with pets and other animals. If you must care for your pet or be around animals while you are sick, wash your hands before and after your interaction and wear a facemask. Make sure that shared spaces in the home have good airflow, such as by an air conditioner or an opened window, weather permitting. Personal Hygiene Procedures: Wear a face mask when in the same room as other people or pets. If a face mask interferes with your breathing, others should wear a mask when sharing space with you. Frequent hand-washing: wash your hands with soap and water for at least 20 seconds. If soap and water are not available, use alcohol-based hand media center director school. Avoid touching your eyes, nose, and mouth with unwashed hands. Household Hygiene Procedures: Avoid sharing personal household items such as dishes, glassware, cups, eating utensils, towels or bedding with other people or pets in your home. After use, these items should be washed with soap and hot water. Disinfect all high-touch surfaces every day with antibacterial cleaning solutions such as Lysol wipes, bleach, cleansers, etc. High-touch surfaces include tabletops, doorknobs, bathroom fixtures, toilets, phones, keyboards, tablets and bedside tables. Immediately clean any surfaces that may have blood, poop or body fluids on them, using antibacterial cleaning solutions such as Lysol wipes, bleach, cleansers, etc. If clothing or bedding come into contact with blood, poop or body fluids, they should be washed immediately. Follow the directions on the laundry detergent and clothing labels but hot water is recommended when possible. Stopping home isolation precautions: If possible, consult your doctor before stopping home isolation precautions. According to the CDC, you can discontinue home isolation precautions when you have met both of these criteria: Your fever and respiratory symptoms have been gone for 24 shaquille (more content not included)... Normal [facility] No Panel Informationon 04-25 [facility] Work Phone: [facility] [place] [facility] [place] [facility] [place]IVE DIAGNOSIS: Chronically infected sebaceous cyst, right chest. POSTOPERATIVE DIAGNOSIS: Chronically infected sebaceous cyst, right chest. OPERATION/PROCEDURE: Excision of sebaceous cyst, right chest, 5 x 2 cm area. SURGEON: Juan Taylor MD. COGNOS LEAD(S): Geraldine, PGY-1. ANESTHESIA: General and 0.5% Marcaine. CLINICAL NOTE: This is a woman, who has had a sebaceous cyst in the right chest wall for some time. It got infected and she had a drain such as a Nerinx through 2 separate stab wounds on either side of it. This had never healed and she was having chronic drainage from the drain sites and through the skin. She was treated with antibiotics. The area improved somewhat, but was still draining. It has had less drainage in the last few days. The plan initially was to do an excisional biopsy and pack this open since it has been a chronic infection, but there is no current drainage, so we are excising this cyst and attempting to stay out of it. During the surgery, we did not see any purulent material, so we did close the area. This was in the upper chest and the skin was tight. We elevated the flaps superiorly and inferiorly and then closed this in multiple layers. OPERATION DETAILS: The patient in the supine position. After adequate general anesthesia was obtained, we prepped the chest wall with ChloraPrep. She was draped in the usual manner. We made an elliptical incision around the mass, which was about 5 x 2 cm. We then elevated skin flaps in all directions. After going down through the subcutaneous tissue, we saw a small amount of sebaceous material, which did not look infected. We went around this posteriorly and excised the area. We made a longer incision to remove the drain sites. We then irrigated the area with saline. There was good hemostasis obtained throughout with Bovie cautery. We elevated the thick skin flaps superiorly and inferiorly using Bovie cautery and then elevated the skin as well. We then reapproximated the deep tissue with interrupted 3-0 Vicryl suture. We reapproximated the skin with interrupted 3-0 Vicryl suture, burying the knot and closed the skin with a running 4-0 Monocryl subcuticular stitch. We infiltrated the area with local anesthetic as well. We then placed Steri-Strips and a dry dressing. The patient tolerated the procedure well and was taken to the recovery room in satisfactory condition. Juan Taylor MD EST EST DICTATION NUMBER: [id number] INTERNAL JOB NUMBER: [id number] CC: UNKNOWN UNKNOWN Juan Taylor MD Electronic Signatures: Juan Taylor) (Signed on 05-May-2022 13:45) Authored Unsigned, Draft (SYS GENERATED) (Entered on 25-Apr-2022 13:48) Entered Last Updated: 05-May-2022 13:45 by Juan Taylor) [facility] Order Reconciliationon 04-25 Order Reconciliation Page 1 Discharge Reconciliation Document Reconciliation Type: Discharge requested on behalf of Sascha Chandler (Resident) done by Sascha Chandler ( (Resident)) Discharge - Reconciliation: 25-Apr-2022 10:30 by: Sashca Chandler ( (Resident)) Home Medications EnteredHOME MEDICATIONS AT DISCHARGE DateReconciliation Comment/ Additional Information albuterol 90 mcg/inh inhalation aerosol with adapter inhaled once a day 25-Apr-2022 08:06 albuterol 90 mcg/inh inhalation aerosol with adapter inhaled once a day 25-Apr-2022 08:06 albuterol 90 mcg/inh inhalation aerosol with adapter is continued as albuterol 90 mcg/inh inhalation aerosol with adapter Current OrdersDateHOME MEDICATIONS AT DISCHARGE DateReconciliation Comment/ Additional Information Droperidol Injectable (INAPSINE)DOSE = 0.625 mg IntraVenous Push Once, PRN Nausea or persistent PONV if first line ineffectivCa.625 mg/DOSE x 1 = 0.625 mg/Dose (Daily Total is 0.625 mg)Clinician Notes: Jessie-operative order ONLY Mon 25-Apr-2022 07:48 Droperidol Injectable is not required HYDROmorphone Injectable (DILAUDID)DOSE = 0.4 mg IntraVenous Push Every 5 Minutes, PRN Pain - Severe (7-10) (PACU)Clinician Notes: Jessie-operative order ONLYMax total of 4 mg regardless of dose. 25-Apr-2022 07:48 HYDROmorphone Injectable is not required Lactated Ringers Infusion IV Bag Volume = 1,000 mL Run at: 100 mL/hr IntraVenous Clinician Notes: Jessie-operative order ONLY 25-Apr-2022 07:48 Lactated Ringers Infusion is not required Home Medications Added During Discharge Reconciliation Activity as Tolerated 25-Apr-2022, Routine, Assistance Level: None, Restrictions: None, Limit your activities and rest today. Additional Patient Instructions Do not consume alcoholic beverages for 24 hours. Additional Patient Instructions Do not make important decisions or sign any important documents for the next 24 hours. Additional Patient Instructions Do not remove steri strips, they will fall off on their own. Additional Patient Instructions Keep Surgical incision dry and clean. Call Physician For: excessive bleeding (slow general oozing that completely soaks dressing or fresh bright red bleeding) or bleeding that will not stop. Apply pressure to the area and elevate. Call Physician For: signs and sypmtoms of infection Increased redness or swelling at incision site, increased pain/tenderness at surgical site, increased temperature greater than 100 degress, increasing and/or progressive drainage from surgical site, and/or unusual odor from surgical site. Diet Regular Discharge Discharge Diagnosis< L72.0 Epidermoid cyst of skin of chest;J86.9 Abscess of chest Discharge Provider, Juan Taylor Discharge Disposition : .Home Condition at Discharge: Satisfactory Discharge Communication Instructions for Nursing Only: Remove IV prior to discharge from hospital. Do not remove any midline, if present, without an order from the provider. Discharge Instructions - PHR After your discharge from the hospital, two Summary of Care Documents will be available online in your Personal Health Record (PHR). 1.Consolidated-Clinical Document Architecture (C-CDA) Patient Discharge Summary This document is a summary of your hospital stay to be kept for your reference.2.C-CDA Visit Summary This document is a summary of your hospital stay to be shared with your follow-up providers (doctor, snap shearer, physical therapist, etc.). doxycycline hyclate 100 mg oral capsule 1 cap(s) orally 2 times a day Follow Up with Dr. Taylor in 2 Weeks Call to schedule May not drive or operate motor vehicles for 24 hours or while taking narcotic pain medication. May not shower For 48 hours May shower After 48 hours. Do not scrub incision. Do not soak/swim for two weeks. oxycodone-acetaminophen 5 mg-325 mg oral tablet 1 tab(s) orally every 6 hours All Active Home Medications at time of Discharge Reconciliation: 25-Apr-2022 10:30 Activity as Tolerated 25-Apr-2022, Routine, Assistance Level: None, Restrictions: None, Limit your activities and rest today. Additional Patient Instructions Do not consume alcoholic beverages for 24 hours. Additional Patient Instructions Do not make important decisions or sign any important documents for the next 24 hours. Additional Patient Instructions Do not remove steri strips, they will fall off on their own. Additional Patient Instructions Keep Surgical incision dry and clean. albuterol 90 mcg/inh inhalation aerosol with adapter inhaled once a day Call Physician For: excessive bleeding (slow general oozing that completely soaks dressing or fresh bright red bleeding) or bleeding that will not stop. Apply pressure to the area and elevate. Call Physician For: signs and sypmtoms of infection Increased redness or swelling at incision site, increased pain/tenderness at surgical site, increased temperature greater t (more content not included)... Normal [facility] Patient Profile - Preop v3on 04-25-2022 Patient Profile - Preop v3 Patient Profile - Preop: Initial Info: Patient DemographicsName: SOFIA CENTENO Date: 2000 Address: [address] [place] [address] Primary Phone [phone] How to be AddressedNicolette Spoken Language PreferredEnglish Source of Informationpatient Stated Reason for AdmissionR breast cyst removal Primary Contact Name and NumberTom Mcgowan ([facility]) [phone] Limitations on Visitors/Phone Callsnone Medications Brought to Hospitalno General Health: Patient or Family Member Reaction to Anesthesiano previous reaction Blood Avoidance/Restrictionsnon e Previous Transfusion Reactionnot applicable Health Mgmt: Symptoms/Conditions Managed at Homerespiratory Are You no Are You Currently Breastfeedingno Respiratory Symptoms/Conditionsasthma Respiratory Management Strategiesmedication therapy; routine screening Barriers to Managing Healthnone Relationship/Environ: Lives Withspouse Living Arrangementshouse Resource/Environmental Concernsnone Anticipated Transition [facility] Anticipated at Transitionnone Tobacco Use: Tobacco Useyes Tobacco Typecigarettes Last Tobacco [id number] Number of Packs per Day1 Number of yrs6 Pack yrs6 Pre-op Checklist: Arrival [id number] Arrival Time08:08 Procedure Typebreast biospy NPOyes Last Food [id number] 00:00 Last Clear Fluid [id number] 00:00 ID Band On Patientpatient ID (name), allergy Consent Signedpending H&P Completepending Anesthesia Assessment Completedpending EKG Performedsee results tab Chest X-Ray Performedsee results tab Preop Antibioticsnot ordered Beta-margoth CommentNA COVID 19 Results in Last 7 daysnegative Glucose ResultNA Type and Screen Resultedn/a Chlorhexadine Bath Givennot applicable Nasal Antiseptic Appliednot applicable Soap and Water Bath the Night Before Surgeryyes Hair Washed with Shampooyes Bowel Prepno Surgical Site Infection Preventionyes Pain Scales and Managementyes Additional Information: Information Review: Allergies, Home Meds and Significant Events have been Reviewed and Verified with Patient/Familyyes Allergy, Intolerance, Adverse Event: Allergies: penicillin: Drug, Anaphylaxis, Active Toradol: Drug, Unknown, Active Electronic Signatures: Saumya Crane ([place]A) (Signed 25-Apr-2022 08:09) Authored: Initial Info, General Health, Health Mgmt, Relationship/Environ, Tobacco Use, Pre-op Checklist, Additional Information Last Updated: 25-Apr-2022 08:09 by Saumya Crane) Normal [facility] Surgical Pathology Department Name SOFIA CENTENO Pathologist: ROGELIO LOCKETT III, D.O. Date of Procedure: 04/25/2022 Date Received: 04/25/2022 Date Reported 04/30/2022 Submitting Physician: JUAN TAYLOR MD Location: [facility] Other External # FINAL DIAGNOSIS A. RIGHT SKIN CYST CHEST WALL, EXCISION: -- BENIGN EPIDERMAL CYST WITH ADJACENT FIBROSIS AND PATCHY CHRONIC INFLAMMATION. peb Electronically Signed Out By ROGELIO LOCKETT III, D.O./PEB By the signature on this report, the individual or group listed as making the Final Interpretation/Diagnosis certifies that they have reviewed this case. Diagnostic interpretation performed at [address] [place] [address] Clinical History: Physician Contact Number: [id number] Ischemic Time (A): 09:40 Fixative (A): Formalin Fixative Time (A): 09:41 Clinical Diagnosis History CHRONIC INFECTED SKIN CYST Specimens Submitted As: A: EXCISION OF RIGHT SKIN CYST CHEST WALL Gross Description: A: Received in formalin, labeled with the patient's name and hospital number and A. Excision of right skin cyst chest wall , is an unoriented elliptical segment of skin, and subcutaneous tissue measuring 3 x 2 x 1.2 cm. The skin surface is unremarkable. The deep and lateral margins are inked blue. The specimen is sectioned to reveal a pasty filled cyst that measures 2 x 1.1 x 1 cm. Knife Sharpener sections are submitted in one cassette. [facility] Department of Pathology [address] [place] [address] Normal [facility] Comment on above: Performed By: #### U HCS #### [facility] Surgical Pathology Department [address] [place] [address] CORONAVIRUS 2019, SCREEN ASY MPTOMATICon 04-24-2022 Lab Specimen Source Nasal, Nasopharyngeal Normal [facility] Comment on above: Performed By: #### C OVSC #### [address] [place] [address] Coronavirus 2019 RNA by PCR, Screening Asymptomticon 04-24-2022 Coronavirus 2019 RNA by PCR, Screening Asymptomtic Not detected Normal See Below [facility] Work Phone: Comment on above: SOURCE: Nasal, Nasop haryngealReference Range: Not Detected.This assay is designed to detect the N, ORF1ab and/or S genes of SARS-CoV-2 via nucleic acid amplification. A Negative (NOT DETECTED) result does not preclude 2019-nCoV infection since the adequacy of sample collection and/or low viral burden may result in presence of viral nucleic acids below the clinical sensitivity of this test method. Negative (NOT DETECTED) result should not be used as the sole basis for treatment or other patient management decisions. Rather negative results should be combined with clinical observations, patient history, and epidemiological information to make patient management decisions.Fact sheet for providers: https://www.fda.gov/media/619124/downloadFact sheet for patients: https://www.fda.gov/media/783518/downloadThis test has received FDA Emergency Use Authorization (EUA) and has been verified by [facility] ([facility]). This test is only authorized for the duration of time that circumstances exist to justify the authorization of the emergency use of in vitro diagnostic tests for the detection of SARS-CoV-2 virus and/or diagnosis of COVID-19 infection under section 564(b)(1) of the Act, 21 U.S.C. 360bbb-3(b)(1), unless the authorization is terminated or revoked sooner. [facility] is certified under CLIA-88 as qualified to perform high complexity testing. Testing is performed in the [facility] laboratories located at [address] [place] [address]. Follow Up (Breast Surgery)on 04-10-2022 Follow Up (Breast Surgery) Diagnoses/Problems Assessed Infected sebaceous cyst (706.2) (L72.3,L08.9) Orders Infected sebaceous cyst Start: Doxycycline Hyclate 100 MG Oral Capsule; TAKE 1 CAPSULE EVERY 12 HOURS DAILY Rx By: Juan Taylor; Dispense: 14 Days ; #:28 Capsule; Refill: 1;For: Infected sebaceous cyst; CORINA = N; Verified Transmission to [facility]; Last Updated By: Ashish Clifford; 04/10/2022 10:01:38 AM Start: Ketorolac Tromethamine 10 MG Oral Tablet; TAKE 1 TABLET EVERY 6 HOURS WITH FOOD Rx By: Juan Taylor; Dispense: 5 Days ; #:20 Tablet; Refill: 0;For: Infected sebaceous cyst; CORINA = N; Verified Transmission to [facility]; Last Updated By: Ashish Clifford; 04/10/2022 10:01:39 AM Start: traMADol HCl - 50 MG Oral Tablet; TAKE 1 TABLET EVERY 8 HOURS NEEDED Rx By: Juan Taylor; Dispense: 7 Days ; #:20 Tablet; Refill: 0;For: Infected sebaceous cyst; CORINA = N; Print Rx Patient Discussion/Summary The area is somewhat smaller but there still is some pus coming through the skin. You should continue to express this. We will continue the antibiotics. I do not think this will get better enough to do an excision and close the skin. The plan would be to excise this leave it open and pack it from the inside to allow it heal from the inside out. This will usually solve the problem although some people do get chronic infections. Plan excision of cyst of right chest continue antibiotics nothing to eat or drink after midnight the night before surgery. Provider Impressions Reviewed surgery the need for leaving this open and packing. I have given her some pain medicine. Toradol for the short-term and a few tramadol tramadol. I reviewed ORRS and no narcotics since December. The actual area does not look too inflamed. Some of this I think is related to her anxiety. Chief Complaint Chief Complaints Visit For: Other Follow-up infected right chest sebaceous cyst Adult Risk ScreeningThere are no spiritual/cultural practices/values/needs that are important to know Initial Fall Risk Screening: SOFIA has not fallen in the last 6 months. Pain Scale: On a scale of 0 to 10, the patient rates the pain at 10. Please identify location of pain: Rt side. Pain Quality: pressure and sharp. The pain makes it hard for the patient to do these things: sleep and self-care (bathing, dressing, eating). History of Present Illness Sofia Centeno is a 21 year old female presenting to the breast center with a chronic right chest skin abscess that she would like excised. She has been receiving care at [facility]. She has had several IANDD's of the abscess with placement of pigtail catheter for a month and 1/2 and antibiotic therapy. This started about 7 years ago with a small bump and was told at that time it was just a cyst. Complains of pains in neck and back.She states she had a bedside ultrasound. We do not have those reports. She was seen on 03/27/22 She was started on Bactrim. She presents for follow-up. She would like area excised. Medical history: None Review of system: pain in neck and spine, pain at site of abscess, rest negative on 14 system review Configuration Management Architect history: Menarche age16. Nulliparous No use of OCP's Family history: Mother with breast cancer Stage 4 metastatic. Diagnosed at age 50. Maternal grandfather with lung and liver cancer Active Problems Problems Infected sebaceous cyst (706.2) (L72.3,L08.9) Allergies Medication Penicillins Cross Reactors Recorded By: Chrystal Cody; 03/27/2022 9:50:59 AM Current Meds Medication NameInstruction Clindamycin HCl - 300 MG Oral Capsule Doxycycline Hyclate 100 MG Oral Capsule Naproxen 500 MG Oral Tablet Ondansetron 8 MG Oral Tablet DisintegratingDISSOLVE 1 (ONE) TABLET on tongue THREE TIMES DAILY NEEDED oxyCODONE-Acetaminophen 5-325 MG Oral Tablet Sulfamethoxazole-Trimetho prim 800-160 MG Oral TabletTAKE 1 TABLET TWICE DAILY UNTIL FINISHED. Vitals L-Dex Vitals Recorded: 10Apr2022 09:14AM Cjvbkyylvco42.5 F Heart Rate99 Eiseqtgc559 Mzhhencuu61 Height4 ft 11 in Oyoxiu566 lb 4 oz BMI Dlhwrscwsl02.18 kg/m2 BSA Calculated1.72 O2 Ajhbktjfuf29 Physical Exam Area of the cyst is somewhat smaller can still express small amount of pus through a port in the skin. Mildly tender. Signatures Electronically signed by : Juan Taylor MD; Apr 10 2022 11:30AM EST (Author) Normal Touch[employer] Cult, Misc + smearon 022 Bacteria identified Cx Nom (Unsp spec) [facility] Work Phone: Initial Visit (Breast Surger y)on 03-27-2022 Initial Visit (Breast Surgery) Diagnoses/Problems Assessed Infected sebaceous cyst (706.2) (L72.3,L08.9) Orders Infected sebaceous cyst Start: Sulfamethoxazole-Trimetho prim 800-160 MG Oral Tablet; TAKE 1 TABLET TWICE DAILY UNTIL FINISHED Rx By: Juan Taylor; Dispense: 14 Days ; #:28 Tablet; Refill: 1;For: Infected sebaceous cyst; CORINA = N; Verified Transmission to [facility]; Last Updated By: System, [employer]; 03/27/2022 10:41:36 AM Cult, Misc + smear; Status:Hold For - Specimen/Data Collection; Requested for:27Mar2022; Perform:Lab Services - Office to Draw (Non-Blood Test); Due:[id number];Ordered; For:Infected sebaceous cyst; Ordered By:Juan Taylor; Site : Wound/Abscess Patient Discussion/Summary You have a chronically infected sebaceous cyst. Since it is draining it is not causing overall symptoms. This is not causing your neck pain. The options are to open it up in the office and try to get some of the sebaceous material out and pack it and let it heal from the inside out. We could put you back on antibiotics heavy continue to express the pus and if the drainage stops we can try to do an excision of the cyst and close the skin. If this does not work we would just excise it and then pack it open and let it heal from the inside. Plan Bactrim DS 1 tablet twice a day continue to express pus from the area follow-up in 2 weeks Provider Impressions This is an infected sebaceous cyst. It is draining. The drain has been out for some time. I discussed doing an IANDD here and trying to clean out the debris letting it heal in and then excise it. She would prefer to try to get the infection under better control and just excise it at 1 time. If its not better we will excise it and then leave it open in the operating room. Chief Complaint Chief Complaints Visit For: Other Right chest chronic skin abscess Adult Risk ScreeningThere are no spiritual/cultural practices/values/needs that are important to know Initial Fall Risk Screening: SOFIA has not fallen in the last 6 months. Pain Scale: On a scale of 0 to 10, the patient rates the pain at 9. Please identify location of pain: bilateral. Pain Quality: sharp and throbbing. History of Present Illness Sofia Centeno is a 21 year old female presenting to the breast center with a chronic right chest skin abscess that she would like excised. She has been receiving care at [facility]. She has had several IANDD's of the abscess with placement of pigtail catheter for a month and 1/2 and antibiotic therapy. This started about 7 years ago with a small bump and was told at that time it was just a cyst. Complains of pains in neck and back. She states she had a bedside ultrasound. We do not have those reports. Medical history: None Review of system: pain in neck and spine, pain at site of abscess, rest negative on 14 system review Configuration Management Architect history: Menarche age16. Nulliparous No use of OCP's Family history: Mother with breast cancer Stage 4 metastatic. Diagnosed at age 50. Maternal grandfather with lung and liver cancer Review of Systems Constitutional: no fever, no chills, no recent weight gain and no recent weight loss. Eyes: no loss of vision, no discharge from the eyes and no itching of the eyes. no diplopia no blurred vision ENT: no hearing loss, no neck pain and no hoarseness. Cardiovascular: no chest pain, no palpitations and no lower extremity edema. Respiratory: no dyspnea, no dyspnea during exertion and no cough. Breast: pain in breast and at abscess site. Gastrointestinal: no abdominal pain, no constipation, no heartburn, no diarrhea, no vomiting, no blood in stools, bowel movement frequency normal. Genitourinary: no dysuria, no hematuria and no vaginal discharge. Musculoskeletal: back pain, neck pain and spine pain, but no arthralgias, no myalgias and no muscle weakness. Integumentary: no rashes and no skin lesions. Neurological: no headache, no dizziness, no numbness, no tingling and no limb weakness. Psychiatric: no anxiety, no depression and no emotional problems. Endocrine: no heat or cold intolerance and no increased thirst. Hematologic/Lymphatic: no swollen glands, no tendency for easy bleeding and no tendency for easy bruising. All other systems have been reviewed and are negative for complaint. Allergies Medication Penicillins Cross Reactors Recorded By: Chrystal Cody; 03/27/2022 9:50:59 AM Vitals L-Dex Vitals Recorded: [id number] 09:51AM Bkcaptmhuly91.7 F Heart Rate78 Juifozsd284 Tdrdlfczk52 Height4 ft 11 in Qksejk089 lb 1 oz BMI Fyqrlsxqtu25.16 kg/m2 BSA Calculated1.74 O2 Sbbfagtevi73 Physical Exam Constitutional - General appearance: In no acute distress, well appearing and well nourished. Neck - Exam: Appearance of the neck was normal. No neck masses observed. Thyroid Examination: Not enlarged and there were no palpable nodules. Pulmonary - Respiratory effort: Normal respiration. Auscultati (more content not included)... Normal [employer] MISCELLANEOUS CULT./SM.BACT. on 03-27-2022 MISCELLANEOUS CULT./SM.BACT. PATIENT: SOFIA CENTENO LOCATION: [facility] BILL#: [id number] : [birth year] AGE: SEX: F ORDERED BY: JUAN TAYLOR SOURCE: WOUND/ABSCESS COLLECTED: 03/27/22 00:00 ANTIBIOTICS AT TIMOTHY.: RECEIVED : 03/27/22 17:02 SITE: R E S U L T S GRAM STAIN FINAL 03/27/22 19:21 NO GRANULOCYTES SEEN. 3+ GRAM VARIABLE COCCI MISCELLANEOUS CULT./SM.BACT. FINAL 03/31/22 12:04 1+ MIXED SKIN JIL 4+ ANAEROBIC MIXED BACTERIA Normal [facility] Comment on above: Performed By: #### M [facility] #### [facility] [address] [place] [address] Coding Summary.on 02-19-2022 Coding Summary. CD:[id number] Gh0bW w+PGhlYWQ+YH7WRLEnC54zyZK ioM3NO8hQEI0HKIOHTWJMUK2P QI8cnAU7FDzzJ2AhadGq ZjlziOQoCM70OBo4VJY0cKnuG HbapP5cdRDrB0d2TiAuXF13oX 74VIpsAURfYoR3LgUxsmyxoKV y V2tdDqMtfAIlDgk+PHRhYmxlI HdpZHRoPScxMDAlJyBzdHlsZT 5yEf3xQMTuBGYbmQxdyBVeHcE j z0osCOFeTHncFN8huWabF0Ypu PU0EJZvn1g0Kl92eSC+PHRkIH D5pGrxSUowr274ZnLbo5awGFH 3 nJYzFClmILD6M34cl6N8IRVxO GKzVYF4vML9rG5ziHwkwyzaC2 EltMCxQwX4QMW6dAYuyU8ptQn n gilylV9qUom+V60LRN0NSPQTT A9YJok8M5AtAxuapBQ+PC90YW JmOX41rMCkgAZqp9zjcHy3MvC w PCVgEYT3rHexGXfem2HiVOMhC 13vvCBzg1C5FASyaRnuzGQeGk LaaIS8eR2iCQezwveqw7sdqas n Dvrnd3yoyx01mF05Z47lPPezX DUhCGO5IIOhLLXjqVmhpq4peH 9wIi8+JOgxr7vce4aavUu2InX w HHKxwzSzbMsxPHJ0w1YlAl57P 3WriRgqi4JqEbs7bm50aMTdh1 O3wCY5DMxxWIGsoT0rVFuhPjJ 6 HKQaQsMniD90cVAlKTrhCf2wr YnytIanXN8tODFpnkkgNCImuS 2kOPApkFUeeFndSQ5hSYPfbwg m e125WwBzBSL5USBinDQqI6Swl R3iFzJtDJGcRGBvY8ZihUHeBV jiE903IRjrCxO8NSRngaGtA1G s QBJrxHoxGmR2y8J1Xz3Ny9Spo teyTEC5KFdwRRR1KtLeTdSmRl G9X1SuZxf8HJGrrSdyWB1hB2O h WKHhjycwnmlrwYX1OXBhOZKub S64iOWgFHrqNn3zn0S0i499TI OaVVOklC99Zt3daEcgMPXrfYF U wR3ibymil8izwsoyIcVwFVJtJ Xx5HNz7RAWsmIoqWyFbFOA1Pm Q9LYB3oOHrwE3grZmiqqrbrX5 w Oyc+F98obB4rOHA0VQR4wucuP IUfunBrYV21WQ03I6ZdOnnzrT FibGU+NJWofcSeaDmpGU5vIzJ j s3doi3YkGUwpG4IbLQZoEOsdG hd6VTCzDUR7kFB6pK4bDPXyCW lbu9S8wNP9D4CjjoEbyz1zl3x s MPCcBXxdI50udRCxx1I4LNWig ZK5IGYbhWsqNbGfsX03Fcx+PG KhqMopt1VsXlpiw8qbq1liaJc 9 FgPmICVbrhAedQfxFLH1l2KwO w31G95gPAebWBCxKPHyKZTnQN ElmYougo7sxW8uIp4+PGNvbCB 3 tWO2rX4sFIXkJlJ5NBchE860F qUgwIXmNzasr5hzx5rgwHt7Xy RwGFHcioDevKgnWXI0z2UwHh7 8 W02fXYyzYTXyLZZoVBSjMCXgm Ekkgd0urL2tRh3+BH7it8uvwa 95fP95kPL+SXGgBVW7uItjFCe w FSZtdB1xOQxoDaQ4SQKnQcScs D90hKGwYAszQc0kaBfsqEijBL 0zKQXycnzny211MwBwk8fsULN w lMZpVStsFGT5F40fd9S3VRQhG KMkFEA8cSL3rR4zxVjhcyarpP SieXfnlqJkuCtaSKbqNGieZ17 6 IHRvcDsnPlBhdGllbnQgTmFtZ Lp0B1GkWac2GSZcgHhuIF7ikC YdSIatDe5fuIqztVckCZ5uJEW p zoaxf307OwSvk6ptWBFjiKSjW CwcMUP0I37hh4X8MXJnXQLuVU E7bKP5oA7ksFraklfjaXCtxUq g tsBilIkjHHokQZnsO642YBPup LkoPeNeqlXwUAWvaXZ4ML48HM 29oCMdg2Y4aGO4O4PuASEgzmq t llfjjDX1GIDbNCJcyV84Kq8cj PacDy5hNMFoOXJ2PSRwdRThN1 HojE2sAgEpUCWfNFSvP9HsiIH t OKivK656YZpyIgK6YLMmuqDyE 0UdQXUsjKddNfC2i7N4Ri6QH6 G8XD90RM44oTSad9L8tJI8H7H h JVFzdvjojyfntTR9WJBpDUMle C61Cv9hmDsoGa9vLCZdWYO0TW MggOXiW0WkgR9jHgLxNTMvRHZ w C6ApdZNuNBqsF323CMomRrA6F ENhvwEzD3WpMFAcjEhqOxF1y3 X5Ez5VTEx0LY94IS72hZNpf3W 5 oVQ7E3RxBGRpwybzuzwqyIJ8U CJvJJQbcZ77Hk6qoPbkKi6gIV VkYNI6NYOxvHRnX2VpsQ4mKbH j YFGxRJXeU0NjnSMmABndJ804G DckIcA4YOVnbpMpS3VvZZEekH ovNjF2z5Z6Ue1YMZBsIL62VLK 5 hOR7IO11MY74J6KpExuygMKpz +PHRhYmxlIHdpZHRoPScxMD MxIdTyeBqxAU0qFt9uAQNwSGX v tPzpkUTfGcSgy8maQKQgCRrsK P0qtEcwP8ReeMV8OIVmk9h2Tx 34A37nF8BonUP+PAVfqSP5sCY 0 iL8uAbVnIaS8PKvtW475VjQir KHiLyhnn0zgk7xmfDv2KjV0YK HudoCufRbsIIS6b6VhTf79H52 s IHdpZHRoPSIxNSUiIHZhbGlnb g9zqW4tOp2+MKPgrPY6oYU0qB 7sPlPbApK3HTteX746IyUcgBN v Sfrlm3fij2ixgVp1NyEfAAHpl oYwaRpoPDO2k5ZqAo00I2TffU oyi5YpFbs7kz10vIBqh5U9sPZ 9 H1NpDZWugmlpeRDkeBqtOY7iR YSiyhzfCOHceD4mHHYoC2c8Ac NqHiP6TKdxK6GmfsJ1GTCrlRB g NQpkFKK2F58oo7N8QJWfRYGnB JZ2sVU2pW2bkOjhahminZBppN uyyfBibYvbHEfkUDycX967CJF v pHsoVYCcpD2dQKJwwUEdlNaqJ S0mWTZaguhdWzFQBEBrGT2WY0 9MRVRURTwvdGQ+DJClFHW3tNt l NOaiADUowF9kSWCoC8d2SrNpQ mP0XQavY1IjUUIyvzyxNv98xF 7uYfWjNsU7FJaiH0JbylE3IJM w aOTjTJguNXP6T45de7V8XPZgC FIlKLP7eMQ9hW3uvRsvqudlzI WyxFbbyuGdaSsoKEnvDNvrT01 6 BMFgaLsrJgZlCkWvVuP3DQi8B 3ErDhi9ECVzrFaiND1nmAVgOP cmXb8hhXjysJpuQS8xYEObpmq w SDJrkD7aWWSywBAfzLwvPO8pG WByeyeyz792UpUxBGL7PKRguE WxY6LnvH2iCjDwCLHhDSCfT5P l sYZdPVxnG539OQeoGwW3URPgc aDqV5JyJBHmdGzlYdS2d6W2Gl 4yMyBZZWFyczwvdGQ+PHRkIHN 0 kLksZArlXYFmrM6aPTZzL6p1L bLuIbD9BRgnW4AyCNDulpytXa 30fS1eBzUjRhR0QXvgN8ArvlK 6 DTKdzTJxDEypTGW4E96tt5W7S SPeBRGnJUI8vOA7aY6rsNqmuz ogbGVmdDsgdmVydGljYWwtYWx p T790SICooIxpPiWxrLDpVOocz GQ+ZEXoRJH3oYilLPfqSTRtjE 7wDQUaQ5k5IrPjOrK6BWlmX4X h WVKmuncmNn57dR2hFzSbKuT3U NntH1QsikT4DAFtaLMfFWnnZE H7T50ff7D0RMUbPOBoKPQ6uHV 4 uB2jbLdjkymtfTVfyKubfqBhq EfxXIvvRYfbG330FHRkdWbcXt FoSNMtRY6wnGipmCH+QS11bh7 8 K4ZlKxopOfx2EYZrVMI9uDL1o U0tYCQbWBflt0J0bAE9E1Wvai Cfgu7le2ysAPKkECynN99ucIT w b8C4ONAxvEL0VNRlqLpxBdRfq G93Oyc+LWPrgVhzb9KnGdxsr5 dcz1trjPo5ZzDoRIArmwNzbAv u XSC2i4XbVu95B89xAAjiBPFaY CZoDLMoSQGrbHffyo4fsR6lPg 8+YPQtjDW7nQW4pX9xEvHsCvV 2 CWwtO257EkBpgTPbRtkyj5trj 2lmrPv7OkEcTHRyogWeyDarBR C1j9EcFt24Q0XyjAdcq4BfDny 0 fx73hOKpg1P6lSC9S7DiSPXjy zykcIEwkIpnKP6fUJMkxjofFA PpnJ8pPOOgB1o4YaDiEmH5DJq u D1UhfvK0QATsuIXbQOQiwLYQy P6cqygkg0jynceoGaZsVVOjQH u6OPv7AOUxdNhrSbYlKTH6RtX 2 NJR8tRQbzO3ovMijdkmjnM7jA yc+GEm0n8pnmNBkWX7fxQK4VQ 58RI18kVQgt7W4eRJ2R3YvIMR p ynyzxliveTO5UABfDYRfvP85P m5dyIcsQm7zDGUrVUQ6EPCpeK AfM8EmcN5tKzDlIFQgGTTxP1M l qZDsFVxqJ101VShbMiN1DPYhh dLfB8QrKFKoaSqpEoN2i7V7Up 2NNM39FK75AS42iRIcp6P8cNK 9 R7BxDHUqrnldzldzlHW5XTAhK CPrrH56Ln6hiTpjNf5wPBEiCP Y7HSCxsBVbO6NtwG4wDcIpDYV w RYPkU7HxbVPfCCblE697AIseE mI3SLVsgzXwW7PeLRLdmCtsXq Z9u6N1Xr0USt30II30MH29lVW g t7F9gOA2E7DuAONhlxovmzfbx IL7EKOsBWPlnH17Mr8qnLlkRd 3xJRXiYZL0MSGznNMcB5AsiS0 y RwAtFOKxJCCgR9ZfwJFtRIkcM 175JGyiUwF0WDGxyfSsA1YeCS QzyAiaCyX3t2O2We7BRQjfqva 8 F6ZpBvnagPT+AI53QBUvZS14j RQicQUkv2prfSj0SrXqYMKwLT Z2dFyjRHvav8CyTXSxQ52noTK w c2U6 (more content not included)... Normal [facility] Auto Diffon 02-18-2022 Basophils/100 WBC (Bld) 0.9 % Normal 0.0-2.0 [facility] Comment on above: Order Comment: Order Added by Discern Expert. Performed By: #### 2 [id number], [id number], [id number], [id number], [id number] ####[facility] [address] [place] [address] Basophils/Leukocytes Auto (Bld) [Pure # fraction] 0.1 E9/L Normal 0.0-0.2 [facility] Comment on above: Order Comment: Order Added by Susannah Expert. Performed By: #### 2 [id number], [id number], [id number], [id number], [id number] ####[facility] [address] [place] [address] Eosinophils/100 WBC (Bld) 7.0 % Normal 0.0-8.0 [facility] Comment on above: Order Comment: Order Added by Discern Expert. Performed By: #### 2 287290, 4932402, [id number], [id number], [id number] ####[facility] [address] [place] [address] Eosinophils/Leukocytes Auto (Bld) [Pure # fraction] 0.6 E9/L High 0.0-0.5 [facility] Comment on above: Order Comment: Order Added by Discern Expert. Performed By: #### 2 649216, [id number], [id number], [id number], [id number] ####[address] [address] Lymphocytes/100 WBC (Bld) 33.5 % Normal 14.0-50.0 [facility] Comment on above: Order Comment: Order Added by Discern Expert. Performed By: #### 2 382471, 9847347, [id number], [id number], [id number] ####[facility] [address] [place] [address] Lymphocytes/Leukocytes Auto (Bld) [Pure # fraction] 2.9 E9/L Normal 1.0-4.0 [facility] Comment on above: Order Comment: Order Added by Discern Expert. Performed By: #### 2 589382, 1923426, 69954363, [id number], [id number] ####[address] [address] Monocytes/100 WBC (Bld) 8.4 % Normal 4.0-14.0 [facility] Comment on above: Order Comment: Order Added by Discern Expert. Performed By: #### 2 738559, 9081742, 01171500, [id number], [id number] ####[facility] [address] [place] [address] Monocytes/Leukocytes Auto (Bld) [Pure # fraction] 0.7 E9/L Normal 0.2-1.0 [facility] Comment on above: Order Comment: Order Added by Discern Expert. Performed By: #### 2 301658, 5572042, [id number], [id number], 0553454 ####[address] [place] [address] Neutrophils/100 WBC (Bld) 50.2 % Normal 36.0-75.0 [facility] Comment on above: Order Comment: Order Added by Discern Expert. Performed By: #### 2 398704, 0194046, 99323466, 26290560, 3907204 ####[address] [address] Neutrophils/Leukocytes Auto (Bld) [Pure # fraction] 4.3 E9/L Normal 2.0-7.5 [facility] Comment on above: Order Comment: Order Added by Discern Expert. Performed By: #### 2 783316, 8158893, 41691720, 21571362, 6546574 ####[address] [address] CBC w/ Auto Diffon Erythrocyte distribution width (RBC) [Ratio] 14.6 % High 10.9-14.2 [facility] Comment on above: Performed By: #### 2 934858, 5004739, 23674904, 45501031, [id number] ####[address] [address] Hematocrit (Bld) [Volume fraction] 45.5 % Normal 34.0-46.0 [facility] Comment on above: Performed By: #### 2 137199, 8761586, 57312388, 15866631, 5434266 ####[address] [address] Hemoglobin (Bld) [Mass/Vol] 15.0 g/dL Normal 12.0-16.0 [facility] Comment on above: Performed By: #### 2 508775, 7530397, 37456702, [id number], [id number] ####[address] [place] [address] MCH (RBC) [Entitic mass] 29.6 pg Normal 27.0-34.0 [facility] Comment on above: Performed By: #### 2 270837, [id number], [id number], [id number], [id number] ####[address] [address] MCHC (RBC) [Mass/Vol] 33.0 g/dL Normal 31.4-36.0 [facility] Comment on above: Performed By: #### 2 145490, [id number], [id number], [id number], [id number] ####[address] [address] MCV (RBC) [Entitic vol] 89.7 fL Normal 80.0-100.0 [facility] Comment on above: Performed By: #### 2 583694, 0979508, [id number], [id number], [id number] ####[address] [address] Platelet mean volume (Bld) [Entitic vol] 10.5 fL Normal 6.4-10.8 [facility] Comment on above: Performed By: #### 2 713921, 7427452, [id number], [id number], [id number] ####[address] [address] Platelets (Bld) [#/Vol] 339.0 E9/L Normal 150.0-500. 0 [facility] Comment on above: Performed By: #### 2 048680, 3255381, 96060336, [id number], [id number] ####[address] [address] RBC (Bld) [#/Vol] 5.1 E12/L Normal 4.3-5.9 [facility] Comment on above: Performed By: #### 2 151234, 9529404, [id number], [id number], [id number] ####[address] [place] [address] WBC corrected for nucl RBC Auto (Bld) [#/Vol] 8.6 E9/L Normal 4.0-11.0 [facility] Comment on above: Performed By: #### 2 101492, 9645050, [id number], [id number], [id number] ####[facility] [id number] [place] [address] CHEMISTRYOrdered By: SYSTEM SYSTEM on 02-18-2022 Albumin [Mass/Vol] 4.3 g/dL Normal 3.3 - 5.0 gm/dL [facility] Albumin/Globulin [Mass ratio] 1.2 {ratio} Normal 1.1 - 2.2 [facility] ALP [Catalytic activity/Vol] 80 [iU]/d Normal 21 - 98 Int._Unit/ L [facility] ALT No additional P-5'-P [Catalytic activity/Vol] 46 [iU]/d Normal 6 - 46 Int._Unit/ L [facility] Anion gap [Moles/Vol] 12 mmol/L Normal 6 - 16 mEq/L [facility] AST [Catalytic activity/Vol] 37 [iU]/d Normal 5 - 43 Int._Unit/ L [facility] Bilirubin [Mass/Vol] 0.8 mg/dL Normal 0.0 - 1 .1 mg/dL [facility] Calcium [Mass/Vol] 9.6 mg/dL Normal 8.9 - 11. 1 mg/dL [facility] Chloride [Moles/Vol] 105 mmol/L Normal 101 - 1 11 mmol/L [facility] CO2 [Moles/Vol] 27 mmol/L Normal 21 - 31 mmol/L [facility] Creatinine [Mass/Vol] 0.7 mg/dL Normal 0.5 - 1.3 mg/dL [facility] GFR/1.73 sq M.predicted among blacks MDRD (S/P/Bld) [Vol rate/Area] mL/min/1.73 m2 Normal >=59mL/min /1.73 m2 [facility] Chem S GFR/1.73 sq M.predicted among non-blacks MDRD (S/P/Bld) [Vol rate/Area] mL/min/1.73 m2 Normal >=59mL/min /1.73 m2 [facility] [place] Globulin (S) [Mass/Vol] 3.6 g/dL Normal 1.4 - 4.0 gm/dL [facility] Remisol Glucose [Mass/Vol] 69 mg/dL Normal 55 - 199 mg/dL [facility] Potassium [Moles/Vol] 3.9 mmol/L Normal 3.5 - 5.3 mmol/L [facility] Protein [Mass/Vol] 7.9 g/dL High 6.0 - 7.8 gm/dL [facility] Sodium [Moles/Vol] 140 mmol/L Normal 135 - 145 mmol/L [facility] Troponin I.cardiac [Mass/Vol] pg/mL Low 10.10 - 27.10 pg/mL [facility] Urea nitrogen [Mass/Vol] 11 mg/dL Normal 5 - 21 mg/dL [facility] [place] Remisol Urea nitrogen/Creatinine [Mass ratio] 16 mg/mg Normal 10 - 20 [facility] CMPon 02-18-2022 Albumin [Mass/Vol] 4.3 g/dL Normal 3.3-5.0 [facility] Comment on above: Performed By: #### 2 [id number], 7846761, [id number], [id number], [id number] ####[facility] [address] [place] [address] Albumin/Globulin (S) [Mass conc ratio] 1.2 Normal 1.1-2.2 [facility] Comment on above: Performed By: #### 2 [id number], [id number], [id number], [id number], 7633981 ####[facility] [address] [place] [address] ALP [Catalytic activity/Vol] 80 Int._Unit/L Normal 21-98 [facility] Comment on above: Performed By: #### 2 572885, 9438358, 77468458, 07887740, [id number] ####[facility] [address] [place] [address] ALT No additional P-5'-P [Catalytic activity/Vol] 46 Int._Unit/L Normal 6-46 [facility] Comment on above: Performed By: #### 2 034241, 8720360, 99600100, [id number], [id number] ####[facility] [address] [place] [address] AST [Catalytic activity/Vol] 37 Int._Unit/L Normal 5-43 [facility] Comment on above: Performed By: #### 2 081201, 8074495, 85537436, 76265228, 5246304 ####[facility] [address] [place] [address] Bilirubin [Mass/Vol] 0.8 mg/dL Normal 0.0-1.1 [facility] Comment on above: Performed By: #### 2 636573, 8812667, 86181954, 56813209, 7543205 ####[facility] [address] [place] [address] Creatinine [Mass/Vol] 0.7 mg/dL Normal 0.5-1.3 [facility] Comment on above: Performed By: #### 2 070157, 2486490, 41377615, 63968420, 9085779 ####[facility] [address] [place] [address] Globulin (S) [Mass/Vol] 3.6 g/dL Normal 1.4-4.0 [facility] Comment on above: Performed By: #### 2 838870, 1892081, 05626067, 70698089, 6780201 ####[facility] [address] [place] [address] Protein [Mass/Vol] 7.9 g/dL High 6.0-7.8 [facility] Comment on above: Performed By: #### 2 837273, 6000194, 99754033, 47485220, 8086444 ####[facility] [address] [place] [address] Urea nitrogen [Mass/Vol] 11 mg/dL Normal 5-21 [facility] Comment on above: Performed By: #### 2 581445, 7104012, 75900055, 38066056, 5358943 ####[facility] [address] [place] [address] Urea nitrogen/Creatinine [Mass ratio] 16 No Units Normal 10-20 [facility] Comment on above: Performed By: #### 2 442116, 3460337, 71880581, 18557056, 4516646 ####[facility] [address] [place] [address] Anion gap [Moles/Vol] 12 mmol/L Normal 6-16 [facility] Comment on above: Performed By: #### 2 940679, 4492671, 15055950, 85351322, 8361808 ####[facility] [address] [place] [address] Calcium [Mass/Vol] 9.6 mg/dL Normal 8.9-11.1 [facility] Comment on above: Performed By: #### 2 280322, 6468098, 99248834, 20165166, 4337174 ####[facility] [address] [place] [address] Chloride [Moles/Vol] 105 mmol/L Normal 101-111 [facility] Comment on above: Performed By: #### 2 206604, 6648534, 71091490, 73169012, 8590816 ####[facility] [address] [place] [address] CO2 [Moles/Vol] 27 mmol/L Normal 21-31 [facility] Comment on above: Performed By: #### 2 041597, 0038483, 97392967, 61602525, 5123633 ####[facility] [address] [place] [address] Glucose [Mass/Vol] 69 mg/dL Normal 55-199 [facility] Comment on above: Result Comment: If t his glucose result represents a fasting glucose, interpretation should refer to the following reference range: 55-99 mg/dL Performed By: #### 2 085261, 3817412, 98181492, 91710486, 9937290 ####[facility] [address] [place] [address] Potassium [Moles/Vol] 3.9 mmol/L Normal 3.5-5.3 [facility] Comment on above: Performed By: #### 2 662109, 5360560, 36230340, 39034386, 4105520 ####[facility] [address] [place] [address] Sodium [Moles/Vol] 140 mmol/L Normal 135-145 [facility] Comment on above: Performed By: #### 2 021022, 1179677, 66016847, 77178075, 4671988 ####[facility] [address] [place] [address] Consent for Treatmenton 01-31 Consent for Treatment [id number]:12 7 Normal [facility] Discharge Instructionson Discharge Instructions [id number]:1 27 Normal [facility] ED Clinical Summaryon 2021 ED Clinical Summary (Inserted Image. Kelsy ble to display) [address] [address] ED Clinical Summary Person Information Name: SOFIA CENTENO/[facility] Age: 21 Years : 2000 Sex: Female Language: Angolan PCP: Wandy Dorado DO Marital Status: Single Visit Id: Visit Reason: Vomiting; Incision and drainage reevaluation; Chest pain; CHEST PAIN/SORENESS, VOMITING, NAUSEA Speciality: Acuity: 3 Enc Type: Emergency Med Service: Emergency Arrival: 02/18/2022 11:49:36 Discharge: 02/18/2022 15:44:06 LOS: 000 03:55 Checkin: 02/18/2022 11:49:36 Checkout: 02/18/2022 15:44:06 Dispo Type: Home (Routine DC) EVENTS: Event Name Event Status Request Date/Time Start Date/Time Complete Date/Time Arrive Complete 02/18/2022 11:49:36 02/18/2022 11:49:36 02/18/2022 11:49:36 Document Home Meds Complete 02/18/2022 11:49:36 02/18/2022 11:55:05 02/18/2022 11:55:05 Triage Complete 02/18/2022 11:49:36 02/18/2022 12:01:20 02/18/2022 12:01:20 Bed Assign Complete 02/18/2022 11:52:27 02/18/2022 11:52:27 02/18/2022 11:52:27 Dr Exam Complete 02/18/2022 11:52:27 02/18/2022 11:58:51 02/18/2022 11:58:51 RN Exam Complete 02/18/2022 11:52:27 02/18/2022 12:09:10 02/18/2022 12:09:10 EKG Complete 02/18/2022 11:54:31 02/18/2022 11:57:34 Registration Complete 02/18/2022 11:58:51 02/18/2022 12:19:34 02/18/2022 12:19:34 Dr Exam Complete 02/18/2022 12:00:31 02/18/2022 12:00:31 02/18/2022 12:00:31 Pending Labs Complete 02/18/2022 12:15:39 02/18/2022 15:05:01 Lab Complete 02/18/2022 12:15:39 02/18/2022 15:05:01 Urine Collect Complete 02/18/2022 12:15:39 02/18/2022 15:05:01 Meds Admin Request 02/18/2022 12:15:39 Reg Complete Request 02/18/2022 12:19:34 Reg Bed Request Complete 02/18/2022 12:19:34 02/18/2022 12:19:34 02/18/2022 12:19:34 X-Ray Complete 02/18/2022 13:10:06 02/18/2022 13:59:03 02/18/2022 14:14:00 Meds Admin Complete 02/18/2022 13:11:18 02/18/2022 13:42:35 RT Tx/ABG Complete 02/18/2022 13:11:19 02/18/2022 13:50:47 02/18/2022 13:50:47 RT Tx/ABG Complete 02/18/2022 13:11:19 02/18/2022 13:50:59 02/18/2022 13:50:59 Pending Labs Complete 02/18/2022 13:14:51 02/18/2022 13:14:51 02/18/2022 13:33:32 Lab Complete 02/18/2022 13:14:51 02/18/2022 13:14:51 02/18/2022 13:33:32 Pending Labs Complete 02/18/2022 13:28:34 02/18/2022 13:28:34 02/18/2022 13:28:41 Lab Complete 02/18/2022 13:28:34 02/18/2022 13:28:34 02/18/2022 13:28:41 Wet Read Request 02/18/2022 14:14:00 Pending Labs Complete 02/18/2022 14:15:30 02/18/2022 14:15:30 02/18/2022 14:15:32 Meds Admin Complete 02/18/2022 14:56:06 02/18/2022 15:03:39 Discharge Complete 02/18/2022 14:58:04 02/18/2022 15:44:15 02/18/2022 15:44:15 Transfer Complete 02/18/2022 15:44:15 02/18/2022 15:44:15 02/18/2022 15:44:15 ADDRESS: [address] [place] [id number] PHYS DOC NOTES: MEDICAL INFORMATION: Prescriptions Given: PATIENT EDUCATION INFORMATION: Instructions: Epidermal Cyst, Emia-dz-Eedl Follow up: With: Address: When: Sara MCGRATH, [place] In 3 days 02/21/2022 DIAGNOSIS: 1:Epidermoid cyst of skin of chest; 2:Chest pain Normal [facility] ED Note-Physicianon 02-19-20 ED Note-Physician Basic Information Time Seen: Fabi Iraheta PA-C 02/18/2022 11:58 Chief Complaint patient c/o chest pain and soreness around incision. Drain removed from chest two weeks ago cyst removed. pt also nausea and vomiting from pain History of Present Illness Patient is a 21-year-old female that denies any separate medical history who presents to the ED today with her fianc? for complaint of chest pain that has been worsening over the past 2 weeks. Patient tells me the a few weeks ago she was seen at [facility] ED and had an abscess drained; drain placed in her mid chest following the procedure. She said that initially her pain after the abscess was drained was improving however the past 2 weeks she has had worsening pain that now radiates into her posterior neck. She said the pain is constant. Rates it an 8 out of 10. Says she has been using Tylenol and Motrin at home without relief. She said that she was given a couple of Percocet by [facility] and that helped. Patient also states that she is having shortness of breath, nausea, 2 episodes of nonbloody nonbilious emesis and chills. She denies fever, palpitations, abdominal pain, headaches, dizziness, lightheadedness. She said she was on multiple different courses of antibiotics and when she followed up with dermatology they told her that she could stop all of them. She feels like the abscess is filling back up . Patient denies a chance of said her last normal menses was 2 weeks ago. Currently uses cigarettes, marijuana. Denies alcohol use. Mother has history of malignant breast cancer. Review of Systems ROS: Constitutional:+ Chills. Denies fever, malaise, weight changes, night sweats HEENT: Denies h/a, vision changes, diplopia, sore throat, nasal congestion, sinus pain/pressure Pulm: + Shortness of breath, tobacco use. Denies cough, hemoptysis, wheezing CVS: + Chest pain. Denies palpitations, edema GI/: + Nausea, vomiting. Denies abd pain, diarrhea, constipation, black/bloody stools, dysuria, hematuria MSK/Skin/Lymph: + Neck pain, skin abscess. Denies injury/trauma, rashes, wounds, swollen lymphnodes Neuro/Psych: Denies weakness, tingling, paresthesias, syncope, lightheadedness, dizziness Physical Exam Vitals & Measurements T: 36.8 ?C(Oral) HR: 85(Monitored) RR: 16 BP: 118/65 SpO2: 98% HT: 150 cm HT: 150.0 cm WT: 58 kg WT: 58.0 kg BMI: 25.78 Appearance: Obese, nontoxic-appearing, alert and awake. Speaking in complete sentences. Vital signs reviewed, WNL Skin: 2 small well-healing incisions left mid to upper chest. Small, firm, round palpable mass between the incisions. Otherwise skin is warm, dry, intact. Normal for age and ethnicity. NECK: Supple. Nml Inspection with good ROM, no palpable adenopathy Eyes: PERRLA. Vision grossly intact. ENT: Buccal mucosa pink and moist. Uvula is midline. Normal facial symmetry. Hearing grossly normal Respiratory: LCTA b/l with normal bilateral excursion. No wheezes, rhonchi, rales. Cardiovascular: RRR, no murmurs. 2+ symmetrical radial pulses. Chest wall: See skin otherwise chest wall is normal in appearance and motion. Abdomen/GI: Soft, nontender, nondistended. No guarding, rigidity, rebound tenderness. NABS x4. Neuro: Alert and awake, speech Clear, cranial nerves grossly intact. Normal sensation to light touch in all 4 extremities. Extremities: No deformity noted on exam. Patient spontaneously moves all 4 extremities. Medical Decision Making Patient is a 18-year-old female presents to the ED today complaining of chest pain, shortness of breath and seeking reevaluation of the previously drained abscess on her left upper middle chest wall. We will obtain labs for cardiac work-up. Physical exam seems consistent with a small cyst in between where she previously had a drain placed. We will also work on obtaining labs from [facility]. Patient to be given morphine and Zofran for her pain. Aspirin for her chest pain. Vital Signs: Reviewed the patient's vital signs. Nursing Notes: Reviewed and utilized the nursing notes. Guest Relations Receptionist: not needed - patient preferred language is Angolan. Old Medical Records: The patient's available past medical records and past encounters were reviewed. Summary of pertinent elements include: Patient was initially seen on 01/08/2022 for an abscess of her chest wall. These records were not sent to us. [facility] sent over two most recent visits for patient. According to their HPI, patient was seen numerous times in the emergency room following her I&D procedure for pain and reevaluation of the wound site. Multiple times she was instructed to follow-up with dermatology yet she did not. Her visit on 01/21/2022 states that patient had 43 Percocet prescribed to her since the onset of the abscess and they are concerned about her overuse of medication . According to their MDM section, her partner is a recovering drug addict. OARRS was reviewed today: Patient's OARRS score is 390. She has actually had 65 Percocet prescri (more content not included)... Normal [facility] Comment on above: Result Comment: Elec tronically Signed By: Fabi Iraheta PA-C\.br\Date and Time Signed: 02/18/22 14:57 EDT\.br\Electronically Co-Signed By: Cheng Saldaña DO\.br\Date and Time Co-Signed: 02/18/22 19:37 EDT ED Patient Education Noteon 02-18-2022 ED Patient Education Note Dermatology Epidermal Cyst An epidermal cyst is a small, painless lump under your skin. The cyst contains a grayish-white, bad-smelling substance (keratin). Do not try to pop or open an epidermal cyst yourself. What are the causes? ? A blocked hair follicle. ? A hair that curls and re-enters the skin instead of growing straight out of the skin. ? A blocked pore. ? Irritated skin. ? An injury to the skin. ? Certain conditions that are passed along from parent to child (inherited). ? Human papillomavirus (HPV). ? Long-term sun damage to the skin. What increases the risk? ? Having acne. ? Being overweight. ? Being 30-40 years old. What are the signs or symptoms? These cysts are usually harmless, but they can get infected. Symptoms of infection may include: ? Redness. ? Inflammation. ? Tenderness. ? Warmth. ? Fever. ? A grayish-white, bad-smelling substance drains from the cyst. ? Pus drains from the cyst. How is this treated? In many cases, epidermal cysts go away on their own without treatment. If a cyst becomes infected, treatment may include: ? Opening and draining the cyst, done by a doctor. After draining, you may need minor surgery to remove the rest of the cyst. ? Antibiotic medicine. ? Shots of medicines (steroids) that help to reduce inflammation. ? Surgery to remove the cyst. Surgery may be done if the cyst: ? Becomes large. ? Bothers you. ? Has a chance of turning into cancer. ? Do not try to open a cyst yourself. Follow these instructions at home: ? Take yrrj-bao-pqjsizf and prescription medicines only as told by your doctor. ? If you were prescribed an antibiotic medicine, take it it as told by your doctor. Do not stop using the antibiotic even if you start to feel better. ? Keep the area around your cyst clean and dry. ? Wear loose, dry clothing. ? Avoid touching your cyst. ? Check your cyst every day for signs of infection. Check for: ? Redness, swelling, or pain. ? Fluid or blood. ? Warmth. ? Pus or a bad smell. ? Keep all follow-up visits as told by your doctor. This is important. How is this prevented? ? Wear clean, dry, clothing. ? Avoid wearing tight clothing. ? Keep your skin clean and dry. Take showers or baths every day. Contact a doctor if: ? Your cyst has symptoms of infection. ? Your condition does not improve or gets worse. ? You have a cyst that looks different from other cysts you have had. ? You have a fever. Get help right away if: ? Redness spreads from the cyst into the area close by. Summary ? An epidermal cyst is a sac made of skin tissue. ? If a cyst becomes infected, treatment may include surgery to open and drain the cyst, or to remove it. ? Take unmt-pxb-mmuqfqs and prescription medicines only as told by your doctor. ? Contact a doctor if your condition is not improving or is getting worse. ? Keep all follow-up visits as told by your doctor. This is important. This information is not intended to replace advice given to you by your health care provider. Make sure you discuss any questions you have with your health care provider. Document Released: 11/26/2005 Document Revised: 02/09/2020 Document Reviewed: 07/28/2019 Elsevier Patient Education ? 2019 [employer] Normal [facility] ED Patient Summaryon 022 ED Patient Summary (Inserted Image. Kelsy ble to display) [address] [address] Patient Discharge Instructions Person Information Name: SOFIA CENTENO Age: 21 Years Arrival Date: 02/18/2022 11:49:36 Discharge Diagnosis: 1:Epidermoid cyst of skin of chest; 2:Chest pain Primary Care Physician: Wandy Dorado DO Provider Information Primary Provider: Cheng Saldaña DO Advanced Roller Setter:Fabi Iraheta PA-C The exam and treatment you received in the Emergency Department were for an urgent problem and are not intended as complete care. It is important that you follow up with a doctor, nurse practitioner, or physician?s facility assistant for ongoing care. If your symptoms become worse or you do not improve as expected and you are unable to reach your usual health care provider, you should return to the Emergency Department. We are available 24 hours a day. SOFIA CENTENO has been given the following list of patient education materials, prescriptions and follow-up instructions: Follow-up Instructions: With: Address: When: Sara MCGRATH, [place] In 3 days 02/21/2022 In the event that this physician does not participate in your insurance network, please consult with your insurance company to find a nearby participating provider. Patient Education Materials: Epidermal Cyst, Bybf-iq-Pnjp A MESSAGE TO ALL PATIENTS REGARDING OPIOIDS PRESCRIPTION OPIOIDS: WHAT YOU NEED TO KNOW Prescription opioids can be used to help relieve kgcrrges-ga-ndicvk pain and are often prescribed following a surgery or injury, or for certain health conditions. These medications can be an important part of the treatment but also come with serious risks. It is important to work with your healthcare provider to make sure you are getting the safest, most effective care. WHAT ARE THE RISKS AND SIDE EFFECTS OF OPIOID USE? Prescription opioids carry serious risks of addiction and overdose, especially with prolonged use. An opioid overdose, often marked by slowed breathing, can cause sudden . The use of prescription opioids can have a number of side effects as well, even when taken as directed: ? Tolerance?meaning you might need to take more of the medication for the same pain relief ? Physical dependence?meaning you have symptoms of withdrawal when a medication is stopped ? Increased sensitivity to pain ? Constipation ? Nausea, vomiting, and dry mouth ? Sleepiness and dizziness ? Confusion ? Depression ? Low levels of testosterone that can result in lower sex drive, energy, and strength ? Itching and sweating RISKS ARE GREATER WITH: ? History of drug misuse, substance use disorder, or overdose ? Mental health conditions (such as depression or anxiety) ? Sleep apnea ? Older age (65 years and older) ? Avoid alcohol while taking prescription opioids. Also, unless specifically advised by your health care provider, medications to avoid include: ? Benzodiazepines (such as Xanax or Valium) ? Muscle relaxants (such as Soma or Flexeril) ? Hypnotics (such as Ambien or Lunesta) ? Other prescription opioids KNOW YOUR OPTIONS Talk to your health care provider about ways to manage your pain that don?t involve prescription opioids. Some of these options may actually work better and have fewer risks and side effects. Options may include: ? Pain relievers such as acetaminophen, ibuprofen, and naproxen ? Some medication that are also used for depression or seizures ? Physical therapy and exercise ? Cognitive behavioral therapy, a psychological, goal-directed approach, in which patients learn how to modify physical, behavioral, and emotional triggers of pain and stress. IF YOU ARE PRESCRIBED OPIOIDS FOR PAIN: ? Never take opioids in greater amounts or more often than prescribed. ? Follow up with your primary health care provider. o Work together to create a plan on how to manage your pain. o Talk about ways to help manage your pain that don?t involve prescription opioids. o Talk about any and all concerns and side effects. ? Help prevent misuse and abuse o Never sell or share prescription opioids. o Never use another person?s prescription opioids. ? Store prescription opioids in a secure place and out of reach of others (this may include visitors, children, friends, and family). ? Safely dispose of unused prescription opioids: Find your community drug take-back program or your pharmacy mail-back program, or flush them down the toilet, following guidance from the Food and Drug Administration (www.fda.gov/Drugs/Resour cesForYou). ? Visit www.cdc.gov/drugoverdose to learn about the risks of opioids abuse and overdose. ? If you believe you may be struggling with addiction, tell your health professional healthcare representative and ask for guidance or call [facility]?S National Helpline at 4-398-293-CDOI. e Source: US Department of Health and (more content not included)... Normal [facility] HEMATOLOGYOrdered By: SYSTEM SYSTEM on 02-18-2022 Basophils/100 WBC (Bld) 0.9 % Normal 0.0 - 2.0 % [facility] HemeAutoSS Basophils/Leukocytes Auto (Bld) [Pure # fraction] 0.1 E9/L Normal 0.0 - 0.2 E9/L [facility] HemeAutoSS Eosinophils/100 WBC (Bld) 7.0 % Normal 0.0 - 8.0 % [facility] HemeAutoSS Eosinophils/Leukocytes Auto (Bld) [Pure # fraction] 0.6 E9/L High 0.0 - 0.5 E9/L [facility] HemeAutoSS Lymphocytes/100 WBC (Bld) 33.5 % Normal 14.0 - 50.0 % [facility] HemeAutoSS Lymphocytes/Leukocytes Auto (Bld) [Pure # fraction] 2.9 E9/L Normal 1.0 - 4.0 E9/L [facility] HemeAutoSS Monocytes/100 WBC (Bld) 8.4 % Normal 4.0 - 14.0 % [facility] HemeAutoSS Monocytes/Leukocytes Auto (Bld) [Pure # fraction] 0.7 E9/L Normal 0.2 - 1.0 E9/L [facility] HemeAutoSS Neutrophils/100 WBC (Bld) 50.2 % Normal 36.0 - 75.0 % [facility] HemeAutoSS Neutrophils/Leukocytes Auto (Bld) [Pure # fraction] 4.3 E9/L Normal 2.0 - 7.5 E9/L [facility] HemeAutoSS HEMATOLOGYOrdered By: Elliot Whitaker on 02-18-2022 Erythrocyte distribution width (RBC) [Ratio] 14.6 % High 10.9 - 14.2 % [facility] HemeAutoSS Hematocrit (Bld) [Volume fraction] 45.5 % Normal 34.0 - 46.0 % [facility] HemeAutoSS Hemoglobin (Bld) [Mass/Vol] 15.0 g/dL Normal 12.0 - 16.0 gm/dL [facility] MCH (RBC) [Entitic mass] 29.6 pg Normal 27.0 - 34.0 pg [facility]eAuto[facility] MCHC (RBC) [Mass/Vol] 33.0 g/dL Normal 31.4 - 36.0 gm/dL [facility] MCV (RBC) [Entitic vol] 89.7 fL Normal 80.0 - 100.0 fL [facility] Platelet mean volume (Bld) [Entitic vol] 10.5 fL Normal 6.4 - 10.8 fL [facility] Platelets (Bld) [#/Vol] 339.0 E9/L Normal 150.0 - 500.0 E9/L [facility] RBC (Bld) [#/Vol] 5.1 E12/L Normal 4.3 - 5.9 E12/L [facility] WBC corrected for nucl RBC Auto (Bld) [#/Vol] 8.6 E9/L Normal 4.0 - 11.0 E9/L [facility] HemeAuto[facility] Outside Recordson 02-18-2022 Outside Records [id number]:1 27 Normal [facility] Prescriptions/Work Noteson 0 02-18-2022 Prescriptions/Work Notes [id number]:1 27 Normal [facility] SEROLOGYOrdered By: Tod For ster on 02-18-2022 HCG.beta subunit (U) [Moles/Vol] Negative Normal [facility] [place] Sero Troponin 0 Hr.on 02-18-2022 Troponin I.cardiac [Mass/Vol] ng/mL Low 10.10-27.1 0 [facility] Comment on above: Result Comment: The 95% CI (Confidence Interval) PPV (Positive Predictive Value) for myocardial infarction in females is 38 pg/mL, in males 51 pg/mL. The results should be used in conjunction with clinical conditions of myocardial infarction. (Access High Sensitivity Troponin I Instructions For Use, Alfonso Giancarlo, June 2018) Performed By: #### 2 [id number], [id number], [id number], [id number], [id number] ####[facility] [address] [place] [address] U BetaHcg Qualon 02-18-2022 HCG.beta subunit (U) [Moles/Vol] Negative Normal [facility] Comment on above: Performed By: #### 2 [id number], [id number] ####[facility] [address] [place] [address] UA With Cult Reflexon 2021 Epithelial cells.squamous LM.HPF (Urine sed) [#/Area] 0-2 Normal 0-2 [facility] Comment on above: Performed By: #### 2 [id number], [id number] ####[address] [address] Niobrara.plasma/Niobrara .RBC (Bld) [Mass ratio] 0-3 Normal 0-3 [facility] Comment on above: Performed By: #### 2 [id number], [id number] ####[address] [address] WBC LM.HPF (Urine sed) [#/Area] 0-5 Normal 0-5 [facility] Comment on above: Performed By: #### 2 [id number], [id number] ####[address] [address] Bilirubin Ql (U) Negative Normal Negative [facility] Comment on above: Performed By: #### 2 [id number], [id number] ####[address] [address] Clarity (U) CLEAR Normal Clear [facility] Comment on above: Performed By: #### 2 [id number], [id number] ####[address] [address] Color (U) STRAW Invalid Interpretation Code [facility] Comment on above: Performed By: #### 2 [id number], [id number] ####[address] [address] Glucose Test strip (U) [Mass/Vol] Negative Normal Negative [facility] Comment on above: Performed By: #### 2 [id number], [id number] ####[address] [address] Hemoglobin Ql (U) TRACE Abnormal Negative [facility] Comment on above: Performed By: #### 2 [id number], [id number] ####[address] [address] Ketones (U) [Mass/Vol] Negative Normal Negative [facility] Comment on above: Performed By: #### 2 7368932, [id number] ####[address] [address] Nitrite Ql (U) Negative Normal Negative [facility] Comment on above: Performed By: #### 2 8384687, [id number] ####[place] [id number] pH (U) 6.5 [pH] Invalid Interpretation Code 5.0-9.0 [facility] Comment on above: Performed By: #### 2 8442371, [id number] ####[address] [address] Protein (U) [Mass/Vol] Negative Normal Negative [facility] Comment on above: Performed By: #### 2 [id number], [id number] ####[place] [id number] Specific gravity (U) [Rel density] <=1.005 Invalid Interpretation Code 1.005-1.03 0 [facility] Comment on above: Performed By: #### 2 1900990, [id number] ####[address] [address] Type of Urine collection method Random Urine Normal [facility] Comment on above: Performed By: #### 2 8716003, [id number] ####[address] [address] Urobilinogen Qn (U) 0.2 {Kevin'U}/dL Normal 0.0-1.0 [facility] Comment on above: Performed By: #### 2 1153549, [id number] ####[address] [place] [address] WBC Auto Ql (U) Negative Normal Negative [facility] Comment on above: Performed By: #### 2 7563110, [id number] ####[facility] [address] [place] [address] URINALYSISOrdered By: Tod camp on 02-18-2022 Bilirubin Ql (U) Negative (02/18/22 2:39 PM) Normal Negative [facility] UA Auto SS Clarity (U) Clear (02/18/22 2:39 PM) Normal Clear [facility] UA Auto SS Color (U) STRAW Invalid Interpretation Code [facility] UA Auto SS Epithelial cells.squamous LM.HPF (Urine sed) [#/Area] 0-2 /HPF Normal 0-2/HPF [facility] UA Aut o SS Glucose Test strip (U) [Mass/Vol] Negative (02/18/22 2:39 PM) Normal Negative [facility] UA Auto SS Hemoglobin Ql (U) Trace *ABN* (02/18/22 2:39 PM) Invalid Interpretation Code Negative [facility] UA Auto SS Ketones (U) [Mass/Vol] Negative (02/18/22 2:39 PM) Normal Negative [facility] UA Auto SS Niobrara.plasma/Niobrara .RBC (Bld) [Mass ratio] 0-3 /HPF Normal 0-3/HPF [facility] UA Auto SS Nitrite Ql (U) Negative (02/18/22 2:39 PM) Normal Negative [facility] UA Auto SS pH (U) 6.5 *NA* (02/18/22 2:39 PM) Invalid Interpretation Code 5.0 - 9.0 [facility] UA Auto SS Protein (U) [Mass/Vol] Negative (02/18/22 2:39 PM) Normal Negative [facility] UA Auto SS Specific gravity (U) [Rel density] <=1.005 *NA* (02/18/22 2:39 PM) Invalid Interpretation Code 1.005 - 1.030 [facility] UA Auto SS UA Spec Desc Random Urine (02/18/22 2:39 PM) Normal [facility] UA Auto SS Urobilinogen Qn (U) 0.5516938 {Kevin'U}/dL Normal 0.0 - 1.0 EU/dL [facility] UA Auto SS WBC Auto Ql (U) Negative (02/18/22 2:39 PM) Normal Negative [facility] [place] UA Auto SS WBC LM.HPF (Urine sed) [#/Area] 0-5 /HPF Normal 0-5/HPF [facility] [place] UA Auto SS XR Chest 2 Viewson 2 XR Chest 2 Views Exam Date/Time: 02/18/2022 14:14 EDT Reason for Exam: Chest pain Report IMPRESSION: NO RADIOGRAPHIC EVIDENCE OF ACTIVE DISEASE IN THE CHEST. CLINICAL INFORMATION: Chest pain soreness around the incision. COMPARISON: None available. FINDINGS: Two views of the chest were obtained. Heart and mediastinum appear normal. The lungs appear clear. Visualized bony thorax and remainder of the chest appears unremarkable. FINAL REPORT Dictated: 02/18/2022 2:32 pm Esequiel Holder M.D. Signed (Electronic Signature): 02/18/2022 2:32 pm Signed by: Esequiel Holder M.D. Transcribed by: DARWIN Technologist: RRB Normal [facility] eGFRon 02-18-2022 GFR/1.73 sq M.predicted among blacks MDRD (S/P/Bld) [Vol rate/Area] mL/min/{1.73_m2} Normal >=59 [facility] Comment on above: Order Comment: Order added by Discern Expert. Result Comment: eGFR is race adjusted. AA=. Performed By: #### 2 [id number], [id number], [id number], [id number], [id number] ####[facility] [address] [place] [address] GFR/1.73 sq M.predicted among non-blacks MDRD (S/P/Bld) [Vol rate/Area] mL/min/{1.73_m2} Normal >=59 [facility] Comment on above: Order Comment: Order added by Discern Expert. Result Comment: Professional Healthcare Representative zhao kidney disease could be indicated at eGFR's of less than 60 mL/min/1.73m2. Kidney failure is indicated at less than 15 mL/min/1.73m2. Performed By: #### 2 [id number], 0223952, [id number], [id number], [id number] ####[facility] [address] [place] [address] Coding Summary.on 04-30-2021 Coding Summary. CD:[id number]:[id number] Gh0bW w+PGhlYWQ+DN8ZGCLdT61puPK oyW8IX1xQAW3NLGWLCSVQTC5G EO1dcIX4VGdrY3YspjEb EfycxEVpUR86NEy6PNU3lAdfR GxyeN0lcLJhV0w4EcFtLG34cK 21OGudAEDsHeS4OzJfpezpaKJ y T1sjEiIirCOsZln+PHRhYmxlI HdpZHRoPScxMDAlJyBzdHlsZT 5rBw5mJKOmIRYmwDwepGOgZmH j x4bhVYDaBMosTB1jmGsfC8Dpe ET1BTQgp0a4Lm95lIL+PHRkIH N3jEahPEhzf603OmLwp5qjFOH 3 vSOeMFhgQZJ3V00yq7E8KUZsE NJwXRQ6rBP8vU4ivRrmokmxR7 CgqSIdJwI3EIZ2cLQqvR4gkVh n kzvoqZ0dFen+A57QRE3MBKESP U8HBwe9Q1ClCjfscJI+PC90YW SqAP80lIQswUOtj5iugMd3OeP w WANuOAY4eTstPYhzi9VwWDNuZ 72qiBVfo4H5QQNapXqezTUkMf GxmSY8oS8eTFgqbqqhj8smaui n Etzsa4cfef08sS90U33tFMesH PFpQQW4WYCoCYRgeMmyhk4vpR 9wIi8+PRshm5gqv3pdpNw6FqA w FOUhklFepCvhHOY2d9MbAm21K 3SqzNhjz9ZmCue7te91nARvk6 W2xMS4ZEgnGQWjfX3hZEvySwL 6 WADhObSyjE67mBAmSZsiGx0vy VrjfHtxQD3hBQEporckTEYacO 8kVSYqeINolIhiWM4bWSVmgwc m g318TtPaOJP3WLMyzMQgY4Zqf I3jVrHyKMCtRSDxB2SjrALsCW usO514JVvdUoZ1XMGqoqYnS6H s FDVbvRaxExO4v7C9Pm2Nj1Qja jihGRO0ZHrlOMT3EnN5KyRlEu C4M9XxFli2WKTagNgyML8uG8V h KDKttpmxbryndXW5NOBmHVYpm Z74nNYzALscLb1nm2C9s821KL RyJGWosW13Sj8kjWovPLBdzZQ U qI0zmdaxn3hpuddfQdIhFMMeI Hg9AHx9PLHijIwoSxIqOQS6Ve D2OJJ3nPBucH4wwMcfsdfpeW4 w Oyc+R42lrR4jUGN5BSQ4brgkY RKrbcFfPP12LC76S8HiMskswK FibGU+POPvdyNgyPxpGD3yFoN j a4lzm4AzHWcjT6XmXXFsPNgcA ic3LVNuNKX9tNQ5sY5mOKZgUH etf4V2pCQ1Q6BmevBsuf3uu9h s VWErMXsfK38xrZLni6Y5ESFvg ZV3UNJwyGhbAlWcgA40Bdj+PG VtkHgur0BzSuvpy8ujo7svwQt 9 AmSiGHAnirYxzCcrQZK6k6OfW e10S84rSKmxAVAqWZIfXXFzBT EgtDbqgv5oqG8uOc7+PGNvbCB 3 mJM0nX8eVQWfUdH4QOhpL549J bVgzWFyApcxd5kkv9hxiIz5Ci AlYPTvzdRgbAevCEL5r3SnKo9 8 F29rBWesJFXjIPQtTBNxDMDjz Ixvcz2ygK2iPu5+RD3gp4llhn 18fW86iOH+IVIwLMQ7sBdrSFz w DMHgpB7eBMqiRdQ8BJDeQyYvn M07pHArQFgzEj4eoQnciCkkFX 8uPWFduknad739AgBpv1eyXHH w xVYuGTfjCRJ4L58tc4E2EAFsZ ZZvCPV9qLO9oX4lcFllfzqyrC MyjBaqljBoqVszGDzyHFziE99 6 IHRvcDsnPlBhdGllbnQgTmFtZ Iy3Z0BwVhk0WTAckIibEX8yqU LkGGpoMl3gwXnvbQabLT6kEGZ p yobql718XqHpn2xbIYHxqJWjQ InkMVR0Z51st9Q0UPBlVTHtMR G0hNQ8uV0kzEcohepnqCYspIv g ipWeaHniTDwhZAabR854RSOii KaiQdHtvmGkORVaaXY2PV44FT 81lERxk4V8mQM0O2QqTOFxhxq t gfyqkVS9JJMvRFUglB39Fk6xb TxoFw9hYTTfMKO5XTTtyAFhF9 YxtV4xQrUbHCXmOTNoF9GzmEK t VJnbY165UMegKnF2IPWwyePjH 7RsOGRjqZpkUnG5y4E8Yw7GH1 C1ZH38QX10vSTja4K0hBD9U2A h GBSkrmhknchlcYG9KFRxLVWey O49Ni6lbPsuGo4rXERlQXL9YC IvdOZeX7MxhB5rEqBzKIGgDCO w K7OvgRRtZEbbV911WWzmUsF6Y RVqyzCxE0XuDTUllAmsXaB6n6 Z3Be0ESTj6CK97QU97cQDcd3O 5 tYN4H0SoXTDxhzmdmoxgmPU4V OTgPNXrqA82Kr9ojAzgHr1qHQ MgFXM1MYOgrDIoM1MujS3gYnY j BKTtKYHlH3GkoSTlYCuoJ464H DapJgA6LTQzxwCwA7IaYZKznR gtMbX8s6K7Xp7DNFAtDX11TPG 5 lJE4EE45RE08V0GsGemvlGSxw +PHRhYmxlIHdpZHRoPScxMD CwHpLchZxcSD8kTc1dCPVfOJR v fCwqrGKiQhTxc9moNDDvPRlxO R1cxVdrQ6BiyNS6GNFeh5y4Ni 49G06xU5MqaAD+FDSaxCD4ePY 0 tX4mOiWfWaO6CUyiY312FwFpp CUlRnqca9wml7xjpLo1WkM8IN YinsTusBjlMUC1u0FiMw72B31 s IHdpZHRoPSIxNSUiIHZhbGlnb o5zcA3aFj9+AEZfcZS5iTV9jC 6rCaQaBxL8DZyaY952SkZpkXF v Xyfvk9uzp7rtgRq7VxYpUVMmc qDdiPnpMLS6c6OmZn57P6BrlA oyf6ZpPku4hh28xWXsi8X3hGR 9 D8LyRKTzyqlrdMOwuFvgCZ9kU YJhdwojAALjgE8dJGYqE3o0Ef AfAmD0DLjcX3KyftB6OOWnaJT g BZlbQUB9N31qk2U4MMIsWJYuI SC6cKN0lK8puUuhnorwjQIuxJ rinfKpbEqpIRvsDNnnI507BIB v xOmhZORajE0cDZJfiDHvjOwuG V0hFFEyaoiiLuOWDHNkIX1TA8 9MRVRURTwvdGQ+HWGmJHB5dYh l VJaeAZQbqI8eJDLwT1r0HjLhV jM1XFykB7CjYHAthsqrOq92qU 7cDxWkYbS1TAvfW2MleyU2BVX w wKRbORcoCQG6C55bc6U6RSFuJ ARcEDH5eZD6hJ9huMwmeezqgG VsuKiywpHxgRrcFClgWDtcG24 6 UQRpfCjeAaHdPoKtUuH4NMe6A 6VdBht9ORZlqQfbAW3nkVKoEX qaXk7rzXgnwRimGY5nFEPyxyt w MLIesU4vVDDgqILsoPbiIZ3vR OXkkooup976CuPpXIA7CTSsxF RkO5UcgT3qWcXlRJKcKPTrZ9P l pPHwSRvbK164ENrcZtZ3REHxz yGcP4EmEVSbgXhbIvD7b9H2Mu 4yMiBZZWFyczwvdGQ+PHRkIHN 0 pZngEVmbXVDuzM7uFAYbM4i3X sLsFzP4EWrtV3YuDDQeqhhkLl 64sZ0xJpLxQmG2JMfgM2RijyC 6 XYOokANoOVmeXMF4Q77ng0U0J DEgLJNwDBC6zQV2qK0sxCkbfl ogbGVmdDsgdmVydGljYWwtYWx p X856KELvyXboHhAikQPtRDjva GQ+WQEzDYC3bCtdTXvwPWQszA 4dHVUcR3m0QnCmRkT8MXlqM8W h YHBfkbwxVx99eW3cMdKjHgO1C VcpP6SmwcV4ZQPxaZQeSMhfTO Y9O97nu6H8YLNyODGiYPY9iBU 4 hJ1nlLbvuemelAGenVwuvaJuq EquVGkoYVcrE764QVEymGxdNf AhXCZnCN5oyXoruAN+PD82cq6 8 M7UnBrsrBty7PGXaYJM8eEO4d D5qTUNrVSyzx8A8aRA8G9Ifig Cqcb7za2kmBYIvPYxzG38hoLH w f0A6LEYdtMB7DJKlrMspVsAuo G93Oyc+TAYyzJrzv7ZxGepxx4 mbb2rmmDd6FnYxKTIknyDatLr u ULI6b3ToBe61D28gKHokWYLyA XKoZHMfJQUhcOajla2bvX2xAz 8+UUFqdUA4pNM3tZ3uEyVaIbF 2 UTjtB111AxKczBZxEirax1jyc 3xinVf4AuCuXPTivkMgoXmnRU T1t4XlOo42L6FqmRbih9UaDuu 0 um73aNNxu4W7cEO5F1SdPZVyq hweiYWmkEztTL5zWFFbhhowCG QlmS5eXMHmH1t1CrHiKyI3GNw u I4CfzsT2YCYgjUKjJUXegBOOp G6jlrupt1pgzmpwOiZxXKGxJC x3EWc6RDAfsXsvKkQoCLL6HiA 2 PJW1oVFcpO3toXqlexbvuM6tS yc+NKp4m4xsdCGuTN3aoEN8GT 51TR58uXIbn8Y3gGU0P8MeSKG p gcgtwobppKO2ZUHhMZBxrV60D o8whXwwZh8iURTpZUL9SPChpA SkB7ZrkO0qXsBoCEOwUCNgZ6U l hIKcWIonT025CKimEiZ7KIWtj vVrX7LhAEDhlKsvWhJ0x7Y3Dz 3RZR41NM05AS93eXAsr5W6fJP 9 E0ZkKDBgyjthqhpowXD6IPRaF PCxzB07Gl9izApwHm7iXFYsKV S2SEJcoATzU9NwqV4yArZtODS w NDUzS2ZbzNEzKEgwD528HPbtI cC8FGVkpgTrT3YhDMOurAlfMc I5a3R9Xk9GBy21UU75MR61xQY g s8N4lGE9H6OuBAAtlbhnroudr HV9HAAoZZHfjQ86Sv1asHejGm 2pLUSdLBT8RRGdiAWyW0GtsX3 y BhVrTFAxRWTgC0ZihPFfAUkfE 428CTalVqZ5YMJpngApF9QwNP WehPdjZqV1m6C3Tx5PZZtpalc 8 X5VwGokuxII+TC34TNOsOF54g CDjhBOwa6kiiWg6YsSiZTVeRW A7jPtkLOtgv2QkTLKeL54ttIY w c2U6 (more content not included)... Normal [facility] ED Note-Physicianon 04-30-20 ED Note-Physician Basic Information Time Seen: Andrew aRiney PA-C 04/29/2021 16:12 Chief Complaint Pt states two [place] Patient states pain has become worse with swelling. History of Present Illness Pleasant 20-year-old female presents emergency department chief complaint left wrist pain. Patient states that she struck her wrist several weeks ago and has had continued pain. She points to the ulnar styloid region as her point of maximum tenderness. Pain increases with circumduction of the wrist. Review of Systems A 10 point review of systems is negative except as noted above. Medical and Surgical History: Reviewed and noted Social history: Lives at home Tobacco: Denies Physical Exam Vitals & Measurements T: 37 ?C (Oral) HR: 82(Peripheral) RR: 18 BP: 132/92 SpO2: 100% HT: 150 cm HT: 150.0 cm WT: 58 kg WT: 58.0 kg BMI: 25.78 General: Alert and oriented, No acute distress, Comfortable in bed. Eye: Pupils are equal, round and reactive to light, Extraocular movements are intact. Gastrointestinal: Soft, Non-tender, Non-distended, Normal bowel sounds. Musculoskeletal: Pain over the region of the left flexor carpi ulnaris region. Mild crepitus with movement of the wrist. No redness no edema. Normal range of motion, Normal strength. Neurologic: Alert, Oriented, Normal sensory, Normal motor function. Cognition and Speech: Oriented, Speech clear and coherent. Psychiatric: Cooperative, Appropriate mood & affect. Integumentary: Warm, Dry, [place] Medical Decision Making Plain film x-rays were unremarkable. Patient will be placed in a Velcro wrist splint, she is to wear the wrist splint for the next week, given a prescription of naproxen for pain. She is to return should new problems develop other problems arise. Assessment/Plan 1. Tendinitis of wrist (M77.8: Other enthesopathies, not elsewhere classified) 2. Left wrist pain (M25.532: Pain in left wrist) Orders: Thumb Spica Splint Application Disposition Plan Patient Discharge Condition Stable Discharge Disposition Discharge home Discharge Prescription List Prescriptions naproxen 500 mg Tab, 500 mg= 1 tab(s), Oral, BID Follow-up With When Contact Information Wandy Dorado In 3 days 05/02/2021 EDT [address], [address] [place] [address] [facility] (1) Additional Instructions: Ice to the wrist, wear the splint at all times. Medications as directed. Patient Education Tendinitis Wrist Pain, Adult Problem List/Past Medical History Ongoing No chronic problems Historical No qualifying data Procedure/Surgical History Extraction of wisdom tooth (2016), Tonsil. Medications Inpatient No active inpatient medications Home Tri-Sprintec 35 mcg Tab, 1 tab(s), Oral, Daily, 4 refills Allergies Pollen (Breathing) penicillin (Anaphylaxis) Social History Alcohol - Denies Alcohol Use, 11/22/2018 Substance Abuse - Denies Substance Abuse, 11/22/2018 Tobacco - Denies Tobacco Use, 11/22/2018 Current vaping or e-cigarette use Smokeless Tobacco Use:. Vaping, 04/29/2021 Former smoker, quit more than 30 days ago Tobacco Use:. Current vaping or e-cigarette use Smokeless Tobacco Use:. Vaping, Yes, 04/09/2021 Family History Anxiety: Mother. Diabetes mellitus type 2: Mother. Hypertension: Mother. Primary malignant neoplasm of female breast: Mother. Lab Results No qualifying data available. Diagnostic Results No qualifying data available. Normal [facility] Comment on above: Result Comment: Elec tronically Signed By: Andrew Rainey PA-C\.br\Date and Time Signed: 04/30/21 13:32 EDT\.br\Electronically Co-Signed By: Alton Francisco DO\.maxwell\Date and Time Co-Signed: 04/30/21 14:00 EDT XR Wrist 3+ Views Lefton XR Wrist 3+ Views Left Exam Date/Time: 04/29/2021 17:03 EDT Reason for Exam: Pain, Traumatic Report IMPRESSION: NEGATIVE LEFT WRIST. CLINICAL HISTORY: Pain, Traumatic. COMPARISON: 11/22/2018. COMMENT: 4 views. The bones of the left wrist appear normal without evidence of fracture or dislocation. There has been no significant change when compared to the prior exam. FINAL REPORT Dictated: 04/30/2021 7:52 am Petros Lance M.D. Signed (Electronic Signature): 04/30/2021 7:52 am Signed by: Petros Lance M.D. Transcribed by: DARWIN Technologist: ZAK [facility] Consent for Treatmenton 04-03 Consent for Treatment [id number]:12 7 [facility] Discharge Instructionson Discharge Instructions [id number]:127 [facility] ED Clinical Summaryon 2020 ED Clinical Summary (Inserted Image. Kelsy ble to display) [place] [id number] ED Clinical Summary Person Information Name: SOFIA CENTENO/[facility] Age: 20 Years : 2000 Sex: Female Language: Angolan PCP: Wandy Dorado DO Marital Status: Single Visit Id: Visit Reason: Wrist injury - Minor; Wrist pain-swelling; LEFT WRIST PAIN Speciality: Acuity: 4 Enc Type: Emergency Med Service: Emergency Arrival: 04/29/2021 15:18:05 Discharge: 04/29/2021 17:51:13 LOS: 000 02:33 Checkin: 04/29/2021 15:18:05 Checkout: 04/29/2021 17:51:13 Dispo Type: Home (Routine DC) EVENTS: Event Name Event Status Request Date/Time Start Date/Time Complete Date/Time Arrive Complete 04/29/2021 15:18:05 04/29/2021 15:18:05 04/29/2021 15:18:05 Document Home Meds Request 04/29/2021 15:18:05 Triage Complete 04/29/2021 15:18:05 04/29/2021 15:53:22 04/29/2021 15:53:22 X-Ray Complete 04/29/2021 15:52:50 04/29/2021 16:51:26 04/29/2021 17:03:52 Bed Assign Complete 04/29/2021 16:11:18 04/29/2021 16:11:18 04/29/2021 16:11:18 Dr Exam Complete 04/29/2021 16:11:18 04/29/2021 16:12:22 04/29/2021 16:12:22 RN Exam Complete 04/29/2021 16:11:18 04/29/2021 16:16:52 04/29/2021 16:16:52 Registration Complete 04/29/2021 16:12:22 04/29/2021 16:24:21 04/29/2021 16:24:21 Dr Exam Complete 04/29/2021 16:13:40 04/29/2021 16:13:40 04/29/2021 16:13:40 Reg Complete Request 04/29/2021 16:24:21 Reg Bed Request Complete 04/29/2021 16:24:21 04/29/2021 16:24:21 04/29/2021 16:24:21 Patient Care Complete 04/29/2021 17:02:14 04/29/2021 17:48:45 Wet Read Complete 04/29/2021 17:03:52 04/29/2021 17:04:34 04/29/2021 17:04:34 Discharge Complete 04/29/2021 17:12:47 04/29/2021 17:51:20 04/29/2021 17:51:20 Transfer Complete 04/29/2021 17:51:20 04/29/2021 17:51:20 04/29/2021 17:51:20 ADDRESS: [place] [id number] PHYS DOC NOTES: MEDICAL INFORMATION: Prescriptions Given: New Medications Printed Prescriptions naproxen (naproxen 500 mg Tab) 1 Tablets By Mouth 2 times a day. with food. Refills: 0. Medications to Continue with No Changes Other Medications ethinyl estradiol-norgestimate (Tri-Sprintec 35 mcg Tab) 1 Tablets By Mouth every day. Refills: 4. PATIENT EDUCATION INFORMATION: Instructions: Tendinitis; Wrist Pain, Adult Follow up: With: Address: When: W[facility] [place]ado [address], [facility], [facility] [address] [place] [address] Business (1) In 3 days 05/02/2021 Comments: Ice to the wrist, wear the splint at all times. Medications as directed. DIAGNOSIS: 1:Tendinitis of wrist; 2:Left wrist pain Normal [facility] ED Patient Education Noteon 04-29-2021 ED Patient Education Note Orthopedics Tendinitis Tendinitis is inflammation of a tendon. A tendon is a strong cord of tissue that connects muscle to bone. Tendinitis can affect any tendon, but it most commonly affects the: ? Shoulder tendon (rotator cuff). ? Ankle tendon (Achilles tendon). ? Elbow tendon (triceps tendon). ? Tendons in the wrist. What are the causes? This condition may be caused by: ? Overusing a tendon or muscle. This is common. ? Age-related wear and tear. ? Injury. ? Inflammatory conditions, such as arthritis. ? Certain medicines. What increases the risk? You are more likely to develop this condition if you do activities that involve the same movements over and over again (repetitive motions). What are the signs or symptoms? Symptoms of this condition may include: ? Pain. ? Tenderness. ? Mild swelling. ? Decreased range of motion. How is this diagnosed? This condition is diagnosed with a physical exam. You may also have tests, such as: ? Ultrasound. This uses sound waves to make an image of the inside of your body in the affected area. ? MRI. How is this treated? This condition may be treated by resting, icing, applying pressure (compression), and raising (elevating) the affected area above the level of your heart. This is known as RICE therapy. Treatment may also include: ? Medicines to help reduce inflammation or to help reduce pain. ? Exercises or physical therapy to strengthen and stretch the tendon. ? A brace or splint. ? Surgery. This is rarely needed. Follow these instructions at home: If you have a splint or brace: ? Wear the splint or brace as told by your health care provider. Remove it only as told by your health care provider. ? Loosen the splint or brace if your fingers or toes tingle, become numb, or turn cold and blue. ? Keep the splint or brace clean. ? If the splint or brace is not waterproof: ? Do not let it get wet. ? Cover it with a watertight covering when you take a bath or shower. Managing pain, stiffness, and swelling ? If directed, put ice on the affected area. ? If you have a removable splint or brace, remove it as told by your health care provider. ? Put ice in a plastic bag. ? Place a towel between your skin and the bag. ? Leave the ice on for 20 minutes, 2?3 times a day. ? Move the fingers or toes of the affected limb often, if this applies. This can help to prevent stiffness and lessen swelling. ? If directed, raise (elevate) the affected area above the level of your heart while you are sitting or lying down. ? If directed, apply heat to the affected area before you exercise. Use the heat source that your health care provider recommends, such as a moist heat pack or a heating pad. ? Place a towel between your skin and the heat source. ? Leave the heat on for 20?30 minutes. ? Remove the heat if your skin turns bright red. This is especially important if you are unable to feel pain, heat, or cold. You may have a greater risk of getting burned. Driving ? Do not drive or use heavy machinery while taking prescription pain medicine. ? Ask your health care provider when it is safe to drive if you have a splint or brace on any part of your arm or leg. Activity ? Rest the affected area as told by your health care provider. ? Return to your normal activities as told by your health care provider. Ask your health care provider what activities are safe for you. ? Avoid using the affected area while you are experiencing symptoms of tendinitis. ? Do exercises as told by your health care provider. General instructions ? If you have a splint, do not put pressure on any part of the splint until it is fully hardened. This may take several hours. ? Wear an elastic bandage or compression wrap only as told by your health care provider. ? Take vzcn-fay-ywtmnlp and prescription medicines only as told by your health care provider. ? Keep all follow-up visits as told by your health care provider. This is important. Contact a health care provider if: ? Your symptoms do not improve. ? You develop new, unexplained problems, such as numbness in your hands. Summary ? Tendinitis is inflammation of a tendon. ? You are more likely to develop this condition if you do activities that involve the same movements over and over again. ? This condition may be treated by resting, icing, applying pressure (compression), and elevating the area above the level of your heart. This is known as RICE therapy. ? Avoid using the affected area while you are experiencing symptoms of tendinitis. This information is not intended to replace advice given to you by your health care provider. Make sure you discuss any questions you have with your health care provider. Document Released: 10/16/2001 Document Revised: 04/26/2019 Document Reviewed: 03/09/2019 [employer] Patient Education ? 2019 G3. Wrist Pain, Adul (more content not included)... Normal [facility] ED Patient Summaryon 021 ED Patient Summary (Inserted Image. Kelsy ble to display) [place] [id number] Patient Discharge Instructions Person Information Name: SOFIA CENTENO Age: 20 Years Arrival Date: 04/29/2021 15:18:05 Discharge Diagnosis: 1:Tendinitis of wrist; 2:Left wrist pain Primary Care Physician: Wandy Dorado DO Provider Information Primary Provider: Alton Francisco DO Advanced Roller Setter:Andrew Rainey PA-C The exam and treatment you received in the Emergency Department were for an urgent problem and are not intended as complete care. It is important that you follow up with a doctor, nurse practitioner, or physician?s facility assistant for ongoing care. If your symptoms become worse or you do not improve as expected and you are unable to reach your usual health care provider, you should return to the Emergency Department. We are available 24 hours a day. SOFIA CENTENO has been given the following list of patient education materials, prescriptions and follow-up instructions: Follow-up Instructions: With: Address: When: Wandy Dorado [address], [address] [place] [address] Business (1) In 3 days 05/02/2021 Comments: Ice to the wrist, wear the splint at all times. Medications as directed. In the event that this physician does not participate in your insurance network, please consult with your insurance company to find a nearby participating provider. Patient Education Materials: Tendinitis; Wrist Pain, Adult A MESSAGE TO ALL PATIENTS REGARDING OPIOIDS PRESCRIPTION OPIOIDS: WHAT YOU NEED TO KNOW Prescription opioids can be used to help relieve heqqywab-ww-qgcxvg pain and are often prescribed following a surgery or injury, or for certain health conditions. These medications can be an important part of the treatment but also come with serious risks. It is important to work with your healthcare provider to make sure you are getting the safest, most effective care. WHAT ARE THE RISKS AND SIDE EFFECTS OF OPIOID USE? Prescription opioids carry serious risks of addiction and overdose, especially with prolonged use. An opioid overdose, often marked by slowed breathing, can cause sudden . The use of prescription opioids can have a number of side effects as well, even when taken as directed: ? Tolerance?meaning you might need to take more of the medication for the same pain relief ? Physical dependence?meaning you have symptoms of withdrawal when a medication is stopped ? Increased sensitivity to pain ? Constipation ? Nausea, vomiting, and dry mouth ? Sleepiness and dizziness ? Confusion ? Depression ? Low levels of testosterone that can result in lower sex drive, energy, and strength ? Itching and sweating RISKS ARE GREATER WITH: ? History of drug misuse, substance use disorder, or overdose ? Mental health conditions (such as depression or anxiety) ? Sleep apnea ? Older age (65 years and older) ? Avoid alcohol while taking prescription opioids. Also, unless specifically advised by your health care provider, medications to avoid include: ? Benzodiazepines (such as Xanax or Valium) ? Muscle relaxants (such as Soma or Flexeril) ? Hypnotics (such as Ambien or Lunesta) ? Other prescription opioids KNOW YOUR OPTIONS Talk to your health care provider about ways to manage your pain that don?t involve prescription opioids. Some of these options may actually work better and have fewer risks and side effects. Options may include: ? Pain relievers such as acetaminophen, ibuprofen, and naproxen ? Some medication that are also used for depression or seizures ? Physical therapy and exercise ? Cognitive behavioral therapy, a psychological, goal-directed approach, in which patients learn how to modify physical, behavioral, and emotional triggers of pain and stress. IF YOU ARE PRESCRIBED OPIOIDS FOR PAIN: ? Never take opioids in greater amounts or more often than prescribed. ? Follow up with your primary health care provider. o Work together to create a plan on how to manage your pain. o Talk about ways to help manage your pain that don?t involve prescription opioids. o Talk about any and all concerns and side effects. ? Help prevent misuse and abuse o Never sell or share prescription opioids. o Never use another person?s prescription opioids. ? Store prescription opioids in a secure place and out of reach of others (this may include visitors, children, friends, and family). ? Safely dispose of unused prescription opioids: Find your community drug take-back program or your pharmacy mail-back program, or flush them down the toilet, following guidance from the Food and Drug Administration (www.fda.gov/Drugs/Resour cesForYou). ? Visit www.cdc.gov/drugoverdose to learn about the risks of opioids abuse and overdose. ? If you believe you may be struggling with addiction, tell your he (more content not included)... Normal [facility] Ambulatory Clinical Summaryo n 04-12-2021 Ambulatory Clinical Summary {[id number] Normal [facility] Family Medicine Video Visit - Telehealthon 04-09-2021 Family Medicine Video Visit - Telehealth HPI Staff Depression Screening Little Interest, Pleasure in Activities (ref) : Not at all Feeling Down, Depressed, Hopeless : Not at all Initial Depression Screening Score : 0 FT AMB Depression Screening Result : Negative [1] C/O: Duration: Thursday lasted a couple days 04/03-04/09. Had felt better 04/04 but patient was told she needed doctors note. Body aches: no Chills: no Fatigue: no Cough: no Sore throat: no Fever: no Headache: no Nasal congestion: no Loss of taste: no Loss of smell: no Eye itching/watering: no Sneezing: no SOB: no Known Exposure: no Pt was sick to stomach and vomiting. History of Present Illness I have reviewed and confirmed staff HPI on this encounter Review of Systems ROS is negative except what is stated in HPI. Physical Exam Video PE: Location:home Present with: No one at this time General: Well developed,well nourished, whitefemale, present per video camera. Face: symmetrical, without dropping. No sinus tenderness Cardio: No edema in bilateral extremities, normal capillary refill, extremities warm throughout to distal portions of fingers Resp: Non labored resp. effort, no audible wheezing, absence of cough Mental Status: Alert and oriented x3. Normal mood and affect This visit was completed via televisit due to the restrictions of the COVID-19 pandemic. All issues as below were discussed and addressed but no physical exam was performed. If it was felt that the patient should be evaluated in clinic then they were directed there. The patient verbally consented to visit. Assessment/Plan 1. Nausea (R11.0: Nausea) Resolved. Patient his felt better since 04/04. Patient is returning to work tomorrow. Follow-up With When Contact Information Barbara Sen Only if needed [email or web address] Additional Instructions: Patient Education Health Maintenance, Female Problem List/Past Medical History Ongoing No chronic problems Historical No qualifying data Procedure/Surgical History Extraction of wisdom tooth (2016), Tonsil. Medications Tri-Sprintec 35 mcg Tab, 1 tab(s), Oral, Daily, 4 refills Allergies Pollen (Breathing) penicillin (Anaphylaxis) Social History Alcohol - Denies Alcohol Use, 11/22/2018 Substance Abuse - Denies Substance Abuse, 11/22/2018 Tobacco - Denies Tobacco Use, 11/22/2018 Former smoker, quit more than 30 days ago Tobacco Use:. Current vaping or e-cigarette use Smokeless Tobacco Use:. Vaping, Yes, 04/09/2021 Family History Anxiety: Mother. Diabetes mellitus type 2: Mother. Hypertension: Mother. Primary malignant neoplasm of female breast: Mother. [1] Ambulatory Comprehensive Intake FT; Wandy Grigsby MA 04/09/2021 15:52 EDT Normal [facility] Comment on above: Result Comment: Trina jah Signed By: Barbara Sen.maxwell\Date and Time Signed: 04/09/21 16:10 EDT Patient Educationon 04-09-20 21 Patient Education Obstetrics and Gynec ology Health Maintenance, Female Adopting a healthy lifestyle and getting preventive care are important in promoting health and wellness. Ask your health care provider about: ? The right schedule for you to have regular tests and exams. ? Things you can do on your own to prevent diseases and keep yourself healthy. What should I know about diet, weight, and exercise? Eat a healthy diet ? Eat a diet that includes plenty of vegetables, fruits, low-fat dairy products, and lean protein. ? Do not eat a lot of foods that are high in solid fats, added sugars, or sodium. Maintain a healthy weight Body mass index (BMI) is used to identify weight problems. It estimates body fat based on height and weight. Your health care provider can help determine your BMI and help you achieve or maintain a healthy weight. Get regular exercise Get regular exercise. This is one of the most important things you can do for your health. Most adults should: ? Exercise for at least 150 minutes each week. The exercise should increase your heart rate and make you sweat (moderate-intensity exercise). ? Do strengthening exercises at least twice a week. This is in addition to the moderate-intensity exercise. ? Spend less time sitting. Even light physical activity can be beneficial. Watch cholesterol and blood lipids Have your blood tested for lipids and cholesterol at 20 years of age, then have this test every 5 years. Have your cholesterol levels checked more often if: ? Your lipid or cholesterol levels are high. ? You are older than 40 years of age. ? You are at high risk for heart disease. What should I know about cancer screening? Depending on your health history and family history, you may need to have cancer screening at various ages. This may include screening for: ? Breast cancer. ? Cervical cancer. ? Colorectal cancer. ? Skin cancer. ? Lung cancer. What should I know about heart disease, diabetes, and high blood pressure? Blood pressure and heart disease ? High blood pressure causes heart disease and increases the risk of stroke. This is more likely to develop in people who have high blood pressure readings, are of descent, or are overweight. ? Have your blood pressure checked: ? Every 3?5 years if you are 18?39 years of age. ? Every year if you are 40 years old or older. Diabetes Have regular diabetes screenings. This checks your fasting blood sugar level. Have the screening done: ? Once every three years after age 40 if you are at a normal weight and have a low risk for diabetes. ? More often and at a younger age if you are overweight or have a high risk for diabetes. What should I know about preventing infection? Hepatitis B If you have a higher risk for hepatitis B, you should be screened for this virus. Talk with your health care provider to find out if you are at risk for hepatitis B infection. Hepatitis C Testing is recommended for: ? Everyone born from 1945 through 1965. ? Anyone with known risk factors for hepatitis C. Sexually transmitted infections (STIs) ? Get screened for STIs, including gonorrhea and chlamydia, if: ? You are sexually active and are younger than 24 years of age. ? You are older than 24 years of age and your health care provider tells you that you are at risk for this type of infection. ? Your sexual activity has changed since you were last screened, and you are at increased risk for chlamydia or gonorrhea. Ask your health care provider if you are at risk. ? Ask your health care provider about whether you are at high risk for HIV. Your health care provider may recommend a prescription medicine to help prevent HIV infection. If you choose to take medicine to prevent HIV, you should first get tested for HIV. You should then be tested every 3 months for as long as you are taking the medicine. ? If you are about to stop having your period (premenopausal) and you may become , seek counseling before you get . ? Take 400 to 800 micrograms (mcg) of folic acid every day if you become . ? Ask for control (contraception) if you want to prevent . Osteoporosis and menopause Osteoporosis is a disease in which the bones lose minerals and strength with aging. This can result in bone fractures. If you are 65 years old or older, or if you are at risk for osteoporosis and fractures, ask your health care provider if you should: ? Be screened for bone loss. ? Take a calcium or vitamin D supplement to lower your risk of fractures. ? Be given hormone replacement therapy (HRT) to treat symptoms of menopause. Follow these instructions at home: Lifestyle ? Do not use any products that contain nicotine or tobacco, such as cigarettes, e-cigarettes, and chewing tobacco. If you need help quitting, ask your health care provider. ? Do not use street drugs. ? Do not share needles. ? Ask your heal (more content not included)... [facility] Provider Letteron 04-09-2021 Provider Letter (Inserted Image. Kelsy ble to display) April 09, 2021 SOFIA CENTENO [address] [place] [address] To Whom It May Concern, Please excuse above patient from work. Date of Illness: From: 04/03 To: 04/09 May Return to Work On:04/10 Sincerely, Family Medicine [address] [address] [facility] CHEST, SPECIAL VIEWS(DEBUB/B UCKY)on 09-30-2018 CHEST, SPECIAL VIEWS(DEBUB/UMAIR) Name: SOFIA CENTENO STUDY:CHEST, SPECIAL VIEWS(DEBUB/UMAIR); 09/30/2018 7:06 pm INDICATION:Signs/Symptoms : fall off hosre. COMPARISON:None. ORDERING CLINICIAN:JOHNIE WELLINGTON FINDINGS: CARDIOMEDIASTINAL SILHOUETTE:Cardiomediasti nal silhouette is normal in size and configuration. LUNGS:Lungs are clear. BONES:No acute osseous changes. IMPRESSION:1. No evidence of acute cardiopulmonary process.Electronically signed by: ARACELI GONZALEZ MD [facility] CT C-SPINE WO CONTRASTon CT C-SPINE WO CONTRAST ent Name: SOFIA CENTENO STUDY:CT C-SPINE WO CONTRAST; 09/30/2018 7:06 pm INDICATION:Signs/Symptoms : fall off hosre, pain c4. COMPARISON:None. ORDERING CLINICIAN:JOHNIE WELLINGTON TECHNIQUE:Contiguous axial images of the cervical spine were obtained withoutintravenous contrast. Coronal and sagittal reformatted images wereobtained from the axial images. FINDINGS:No evidence of acute fracture or subluxation of the cervical spine.The vertebral body heights are preserved. There is limited evaluationof the soft tissues of the spinal canal. No evidence of significantspinal canal stenosis. No prevertebral soft tissue edema.Mucosal thickening bilateral mastoid air cells, middle ear cavities,and paranasal sinuses. IMPRESSION:No evidence of acute fracture or subluxation of the cervical spine. Mucosal thickening bilateral mastoid air cells, middle ear cavities,and paranasal sinuses.Electronically signed by: JUAN JASSO MD Normal [facility] CT HEAD WO CONTRASTon 2017 CT HEAD WO CONTRAST Name: SOFIA CENTENO STUDY:CT HEAD WO CONTRAST; 09/30/2018 7:06 pm INDICATION:Signs/Symptoms : fall off horse. COMPARISON:None ORDERING CLINICIAN:JOHNIE WELLINGTON TECHNIQUE:Contiguous axial images of the head were obtained without intravenouscontrast. FINDINGS:BRAIN PARENCHYMA: The jurado white matter differentiation is preserved.No mass effect or midline shift. HEMORRHAGE: No evidence of acute intracranial hemorrhage.VENTRICLES AND EXTRA-AXIAL SPACES:The ventricles are within normallimits in size for brain volume. No evidence of abnormal extraaxialfluid collection.EXTRACRANIAL SOFT TISSUES:Mucosal thickening in bilateral ethmoid aircells and the left maxillary sinus.PARANASAL SINUSES/MASTOIDS:The visualized paranasal sinuses andmastoid air cells are clear and well pneumatized.CALVARIUM:No evidence of depressed calvarial fracture. OTHER FINDINGS:None IMPRESSION:No evidence of acute intracranial hemorrhage or depressed calvarialfracture. Mucosal thickening in paranasal sinuses. Electronically signed by: JUAN JASSO MD Normal [facility] PELVIS, 1 OR 2 VIEWSon 09-30 PELVIS, 1 OR 2 VIEWS t Name: SOFIA CENTENO STUDY:PELVIS, 1 OR 2 VIEWS; 09/30/2018 7:06 pm INDICATION:Signs/Symptoms : fall off horse last night. COMPARISON:None. ORDERING CLINICIAN:JOHNIE WELLINGTON FINDINGS:AP pelvis. The osseous structures and soft tissues appear normal. Nofracture or dislocation is noted IMPRESSION:Unremarkable pelvis Electronically signed by: ARACELI GONZALEZ MD Normal [facility] Provider Note - ED v2on 11-2 Protein mass conc Provider Note - ED v2:Chart Review:ED NOTESED NOTES: HISTORY OF PRESENT ILLNESS:17-year-old female previously healthy presenting for fall from horse thatoccurred yesterday. Patient states she was riding about a 7 foot tall horse.Fell off the horse. States there were around 10 people present. States she wasunconscious for about 10-15 minutes. States she went home last night and feltfine. This morning she awoke with a generalized throbbing headache, neck pain,dizziness and right shoulder pain. Unable to walk with no difficulty. No otherinjuries noted. Denies changes in vision, numbness, tingling, loss of motion,shortness of breath, chest pain, abdominal pain, vomiting or any othersymptoms. LMP September 07. REVIEW OF SYSTEMS:NEGATIVE:Constitu tional: Fever, ChillsEyes: Vision Loss/ChangesENT: Nasal Congestion, Throat PainCardio: Chest Pain, PalpitationsResp: Cough, Difficulty BreathingGI: Abdominal Pain, Vomiting, DiarrheaNeuro: ConfusionGU: Dysuria, Flank PainReview of systems is otherwise negative unless stated above or in history ofpresent illness. Medications and allergies reviewed. PHYSICAL EXAM:General: Vitals noted. Alert & oriented x4. No acute distress. Restingcomfortably. Normal phonation, no stridor.Head: Normocephalic, atraumatic. Negative Battles sign and raccoon eyes.EENT: PERRLA. EOMI. TMs clear, no hemotympanum.Neck: Supple. Tenderness around C4, without crepitus/stepoffs. C-collar inplaceHeart: Regular rate and rhythm. No murmurs, rubs or gallops. No chest walltenderness.Lungs: Clear to auscultation bilaterally. No rales, wheezing, or rhonchi. Norespiratory distress. No paradoxical chest wall motion.Abdomen: Soft and nontender. Bowel sounds present in all quadrants. No guardingor rebound.Back: No midline or paraspinal tenderness. Full ROM.Extremities: Pelvis stable. Minimal tenderness to the anterior aspect of theright shoulder. otherwise rest of extremity and other extremities arenontender. Full active ROM of all 4 extremities with no obvious signs ofdeformity. No edema.Skin: Warm and dryNeuro: diamond die maker are grossly intact. No facial asymmetry. Moves all uninjuredextremities equally. GCS is 15. Differential Diagnosiscontusion, strain, sprain, muscle spasm, concussion, fracture, cranial bleed ED Course/Medical Decision Making:Patient is a 17-year-old female presenting for headache post-fall from a horseyesterday. Vital signs stable. Exam remarkable for tenderness around C4.Ordered Tylenol. CT head, C-spine are negative for acute process. Patient wascleared from c-collar. Chest x-ray, pelvic x-ray and right shoulder x-ray wereall negative for acute fractures. We'll with trauma surgery Dr. Flood,discussed the patient's presentation and results he agreed with dischargingpatient. Discussed results with patient. Agreed with plan. Likelymusculoskeletal with closed head injury. Will discharge home with naproxen andFlexeril. Advised to call her PCP for follow-up appointment in 2-3 days. Alsogiven concussion clinic information. Plan:Discussed differential, results and discharge plan with the patient and/orfamily/friend/careg iver if present. I emphasized the importance of follow-upwith the physician I referred them to in the timeframe recommended. Iexplained reasons for the patient to return to the Emergency Department. Weroberto discussed medications that were prescribed (if any) including common sideeffects and interactions. All questions were addressed. They understand returnprecautions and discharge instructions. Patient and family/friend/caregiver arein agreement with this plan and will be discharged home in stable condition. Discussed and reviewed case with attending, who agreed with plan. Disclaimer: This note was dictated by speech recognition. Minor errors intranscription may be present.Please call if questions. Johnie Wellington, [facility] Medicine, PGY 3 HISTORY OF PRESENTING ILLNESSNICOLETTE is a 17 year old Female and was seen by me at 30-Sep-2018 18:42 for achief complaint of headache (Pt states she fell off 7 ft horse yesterday andhit the back of her head. Pt states she lost consciousness x 10-15 minutes.States she developed headache this morning when she woke up and is c/odizziness. Pt c/o neck pain. C-collar applied at time of triage.) . Triage Information: Most recent Vital Sign Value Date Temp (F): 97.1 09-30-2018 18:34 Temp (C): 36.2 09-30-2018 18:34 Heart Rate (beats/min): 92 09-30-2018 18:34 Respirations (breaths/min): 18 09-30-2018 18:34 SpO2 (%): 97 09-30-2018 18:34 BP Systolic (mm Hg): 132 09-30-2018 18:34 BP Diastolic (mm Hg): 80 09-30-2018 18:34 PAST MEDICAL HISTORYATTESTATION: I have reviewed and confirmed nurse's/medic's notes for patient'smedications, allergies, medical history, and surgical history CURRENT OR FORMER SUBSTANCE USE: YES: Cigarette/Tobacco and Alcohol NO: StreetDrugs ALLERGIES/INTOLERANCES: No Known Allergies HEALTH HISTORY: No documented data. OUTPATIENT MEDICATIONS: Home Medications Review Status for Reconciliation: NotDoneMed Status: Patient Currently Takes Medications Drug Name: naproxen 500 mg oral tabletInstructions: 1 tab(s) orally 2 times a day as needed for pain Drug Name: cyclobenzaprine 10 mg oral tabletInstructions: 1 tab(s) orally 3 times a day SIGNIFICANT EVENTS: No documented data. RESEARCH DEVELOPMENT MANAGER: Last Menstrual Period: 07-Sep-2018 Is : no(1) Is :no RESULTS/VITAL SIGNSRESULTS:Radiology Results: I have reviewed this radiology result: Impression: Unremarkable right shoulder Xray Shoulder Complete Min 2 Views [Sep 30 2018 7:33PM] Impression: No evidence of acute fracture or subluxation of the cervical spine. Mucosal thickening bilateral mastoid air cells, middle ear cavities,and paranasal sinuses. CT C Spine without Contrast [Sep 30 2018 7:25PM] Impression: No evidence of acute intracranial hemorrhage or depressed calvarialfracture. Mucosal thickening in paranasal sinuses. CT Head without Contrast [Sep 30 2018 7:22PM] Impression: Unremarkable pelvis Xray Pelvis 1 or 2 View [Sep 30 2018 7:12PM] Impression: 1. No evidence of acute cardiopulmonary process. Xray Chest 1 View [Sep 30 2018 7:12PM] VITAL SIGNS: T PRBP SpO2O2(LPM) %FiO2 18:34:[id number] 97 room air, no respiratorysupport CLINICAL IMPRESSIONDiagnosis/Annot ation: ED Dx Name:Fall Code:W19.XXXA Name:Closed head injury with concussion, with loss of consciousness of 30minutes or less, initial encoun Code:S06.0X1A Name:Right shoulder pain Code:M25.511 Name:Neck pain, acute Code:M54.2 Dispostion: discharged Type: homeCondition on Disposition: stable ATTESTATIONAttestation: I saw and evaluated the patient. I personally obtained the keyand critical portions of the history and physical exam or was physicallypresent for jones and critical portions performed by the resident/fellow. Ireviewed the resident/fellows documentation and discussed the patient with theresident/fellow. I agree with the resident/fellows medical decision making asdocumented in the resident/fellows note with the exception/addition of thefollowing Comments/Additional Findings:17 yo female presented with complaints of a fall from the horse. She states shefell yesterday had a brief loss of consciousness. She complained about a mildheadache mild neck pain. No nausea. No vomiting. No fevers. No chills. Limitedtrauma activation was called. No step off on his spine exam. She did have somemild midline tenderness around C5 and C6. No thoracic or lumbar pain. She wasawake and alert and oriented. Cranial nerves II through XII are grossly intact.CT imaging was negative. Consulted and spoke with trauma patient was clearedfor discharge home. She was given follow-up with concussion clinic. I agreewith the resident assessment and plan. CRITICAL CARE TIMEIs this a critically ill patient: no Electronic Signatures:Jagdish Almaguer () (Signed 02-Oct-2018 22:04)Authored: Provider Note - ED [id number]: Provider Note - ED [id number] Wellington ( (Resident)) (Signed 30-Sep-2018 19:51)Authored: Provider Note - ED v2 Last Updated: 02-Oct-2018 22:04 by Jagdish Almaguer () References:1. Data Referenced From Triage - ED 09/30/2018 06:34 PM Normal [facility] Risk Screen - Adult Emergenc yon 09-30-2018 Risk Screen - Adult Emergency Preferred Language:Preferred Language: Preferred Language for Discussing Health Care (patient/designee)Angolan Advanced Directives: Advance Directive Medicalno Advance Directive Information Givenpatient/family declined Family Violence Adult:Abuse Screen: Are you or have you been threatened or abused physically, emotionally, orsexually by anyoneno Suicide / Depression:Suicide/Depres pily Screen: During the past month, have you often been bothered by feeling down,depressed or hopelessno During the past month, have you often had little interest or pleasure indoing thingsno Have you had any thoughts of harming yourselfno Have you had any thoughts of harming anyone elseno Learning Assessment (Patient):Learning Assessment (Patient): Patient is Able to be Assessed for Learningyes Factors Influencing Readiness to Learnpain Factors that Impact Ability to Learnnone Devices/Methods Used to Communicatenone Learning Preferencesverbal instruction Cultural Considerationsnone Developmental Considerationsnone Presybeterian Considerationsnone Learning Assessment (Other Learner):Learning Assessment (Other Learner): Other learner availableno Fall Risk Adult:Falls Risk: Altered Mobilitynone Change in Mental Statusno Relevant Medical History / Diagnosisnone Fall Historynone Altered Eliminationno Medications that Might Alter: equilibrium, cognitive judgement or severity ofinjurynone Sensory Deficitno UNABLE or UNWILLING to Follow Directionsno Patient Identified as a Falls Riskyes Pressure Injury:Pressure Injury Present on Admissionno Respiratory / Cough /TB:ED / TB / Cough / Respiratory Screen: Do you have a coughno Smoking/Social History (Required age 13 or older): Smoking Status: current every day smokerAlcohol Use: occasionallyDrug Use: denies Admission Risk Screen: Significant IndicatorsComplete CAGE:CAGE:Is this an injured patient [place] Tra[place] [place] [facility] no Electronic Signatures:Kateryna Troy (KYA) (Signed 30-Sep-2018 19:18)Authored: Preferred Language, Advanced Directives, Family Violence Adult,Suicide / Depression, Learning Assessment (Patient), Learning Assessment (OtherLearner), Fall Risk Adult, Pressure Injury, Respiratory / Cough /TB,Smoking/Social History (Required age 13 or older), CAGE Last Updated: 30-Sep-2018 19:18 by Kateryna Troy (KYA) Normal [facility] SHOULDER, CMPLT, MIN 2 VIEWS on 09-30-2018 SHOULDER, CMPLT, MIN 2 VIEWS Name: SOFIA CENTENO STUDY:SHOULDER, CMPLT, MIN 2 VIEWS; 09/30/2018 7:06 pm INDICATION:Signs/Symptoms : fall off horse last night. COMPARISON:None. ORDERING CLINICIAN:JOHNIE WELLINGTON FINDINGS:Right shoulder three views. The osseous structures and soft tissuesappear normal. No fracture or dislocation is noted IMPRESSION:Unremarkable right shoulder Electronically signed by: ARACELI GONZALEZ MD Normal [facility] Triage - EDon 09-30-2018 Triage - ED Quick Triage:Are You noAre You Currently Breastfeedingno Pain:Pain Rating (0-10): Rest8 Chart Review:CHIEF COMPLAINT SOFIA CENTENO is a Female patient with a chief complaint of headache (Ptstates she fell off 7 ft horse yesterday and hit the back of her head. Ptstates she lost consciousness x 10-15 minutes. States she developed headachethis morning when she woke up and is c/o dizziness. Pt c/o neck pain. C-collarapplied at time of triage.).Onset of the Complaint: [id number] Date/Time: 30-Sep-2018 18:34Pain Rating (0-10): Rest: 8Vital Signs:Temperature: 97.1F ( 36.2C)Blood Pressure: 132/80 Mean:Heart Rate: 92Respiratory Rate: 18Pulse Oximetry: 97% on room air, no respiratory support. Height: 4 feet 11.00inches. 149.8 CMWeight: 135.0 pounds. Calculated 61.2 kg.Calculated BMI (kg/m2): 27.272 Calculated BSA (m2) 1.60 Cough lasting greater than 3 weeks: noPatient immunocompromised related to: N/ATravel outside of [place]: noAllergies: noLast menstrual period: [id number]: 2 Symptoms Are POSITIVE For:facial pain and neck pain.Symptoms Are Negative For:anorexia, anxiety, blurred vision, congestion, eye pain, nausea andphotophobia. PAIN Pain Scale Used: CONCHA PRIMARY ASSESSMENT SOFIA CENTENO's primary assessment is Within Normal Limits. The airway is openand patent. Breathing spontaneous and unlabored with clear breath soundsbilaterally. Circulation is normal with good peripheral pulses. Skin is warmand dry and color is normal for race. Past Medical History: Past Medical History Reviewedyes Electronic Signatures:Regine Lundberg (RN) (Signed 30-Sep-2018 18:38)Authored: Triage, Past Medical History Last Updated: 30-Sep-2018 18:38 by Regine Lundberg (KYA) Normal [facility] Vital Signs Date Time Vital Sign Value Performing Clinician Facility 12-01-2023 11:00-0500 Body height 125.27 cm Kayley Mo Other [facility] Other 12-01-2023 11:00-0500 Body mass index (BMI) [Ratio] 39.31 kg/m2 Kayley Mo Other [facility] Other 12-01-2023 11:00-0500 Body temperature 101.2 [degF] Kayley Mo Other [facility] Other 12-01-2023 11:00-0500 Body weight 61.69 kg Kayley Mo Other [facility] Other 12-01-2023 11:00-0500 Respiratory rate 18 /min Kayley Mo Other [facility] Other 12-01-2023 11:00-0500 SaO2% (BldA) [Mass fraction] 97 % Kayley Mo Other [facility] Other 09-24-2023 08:48-0500 Body height 149.86 cm DO Shauna Atkinson Work Phone: [facility] 09-24-2023 08:48-0500 Body temperature 97.4 [degF] DO Shauna Atkinson Work Phone: [facility] 09-24-2023 08:48-0500 Body weight 67.13 kg DO Shauna Atkinson Work Phone: [facility] 09-24-2023 08:48-0500 Diastolic blood pressure 56 mm[Hg] DO Shauna Atkinson Work Phone: [facility] 09-24-2023 08:48-0500 Heart rate 99 /min DO Shauna Atkinson Work Phone: [facility] 09-24-2023 08:48-0500 Respiratory rate 18 /min DO Shauna Atkinson Work Phone: [facility] 09-24-2023 08:48-0500 SaO2% (BldA) [Mass fraction] 97 % DO Shauna Atkinson Work Phone: [facility] 09-24-2023 08:48-0500 Systolic blood pressure 119 mm[Hg] DO Shauna Atkinson Work Phone: [facility] 01-09-2023 15:00-0500 Diastolic blood pressure 71 mm[Hg] DO Shauna Atkinson Work Phone: [facility] 01-09-2023 15:00-0500 Heart rate 76 /min DO Shauna Atkinson Work Phone: [facility] 01-09-2023 15:00-0500 Respiratory rate 16 /min DO Shauna Atkinson Work Phone: [facility] 01-09-2023 15:00-0500 SaO2% (BldA) [Mass fraction] 96 % DO Shauna Atkinson Work Phone: [facility] 01-09-2023 15:00-0500 Systolic blood pressure 107 mm[Hg] DO Shauna Atkinson Work Phone: [facility] 01-09-2023 11:40-0500 Body height 149.86 cm DO Shauna Atkinson Work Phone: [facility] 01-09-2023 11:40-0500 Body temperature 97.6 [degF] DO Shauna Atkinson Work Phone: [facility] 01-09-2023 11:40-0500 Body weight 79 kg DO Shauna Atkinson Work Phone: [facility] 10-13-2022 11:52-0500 Body height 149.86 cm DO Shauna Atkinson Work Phone: [facility] 10-13-2022 11:52-0500 Body temperature 98.7 [degF] DO Shauna Atkinson Work Phone: [facility] 10-13-2022 11:52-0500 Body weight 78 kg DO Shauna Atkinson Work Phone: [facility] 10-13-2022 11:52-0500 Diastolic blood pressure 66 mm[Hg] DO Shauna Atkinson Work Phone: [facility] 10-13-2022 11:52-0500 Heart rate 90 /min DO Shauna Atkinson Work Phone: [facility] 10-13-2022 11:52-0500 Respiratory rate 18 /min DO Shauna Atkinson Work Phone: [facility] 10-13-2022 11:52-0500 SaO2% (BldA) [Mass fraction] 96 % DO Shauna Atkinson Work Phone: [facility] 10-13-2022 11:52-0500 Systolic blood pressure 113 mm[Hg] DO Shauna Atkinson Work Phone: [facility] 10-12-2022 16:07-0500 Body height 152.4 cm DO Shauna Atkinson Work Phone: [facility] 10-12-2022 16:07-0500 Body temperature 99.1 [degF] DO Shauna Atkinson Work Phone: [facility] 10-12-2022 16:07-0500 Body weight 78 kg DO Shauna Atkinson Work Phone: [facility] 10-12-2022 16:07-0500 Diastolic blood pressure 67 mm[Hg] DO Shauna Atkinson Work Phone: [facility] 10-12-2022 16:07-0500 Heart rate 87 /min DO Shauna Atkinson Work Phone: [facility] 10-12-2022 16:07-0500 Respiratory rate 16 /min DO Shauna Atkinson Work Phone: [facility] 10-12-2022 16:07-0500 SaO2% (BldA) [Mass fraction] 95 % DO Shauna Atkinson Work Phone: [facility] 10-12-2022 16:07-0500 Systolic blood pressure 127 mm[Hg] DO Shauna Atkinson Work Phone: [facility] 04-10-2022 09:14-0400 Body height 149.86 cm No PCP None [facility] Work Phone: 04-10-2022 09:14-0400 Body mass index (BMI) [Ratio] 34.18 kg/m2 No PCP None [facility] Work Phone: 04-10-2022 09:14-0400 Body surface area Derived from formula 1.72 m2 No PCP None [facility] Work Phone: 04-10-2022 09:14-0400 Body temperature 97.5 [degF] No PCP None [facility]Hgchktk[facility] n [facility] Work Phone: 04-10-2022 09:14-0400 Body weight 76.77 kg No PCP None [facility]pt[facility] Work Phone: 04-10-2022 09:14-0400 Diastolic blood pressure 83 mm[Hg] No PCP None [facility]sp[facility] Work Phone: 04-10-2022 09:14-0400 Heart rate 99 /min No PCP None [facility]xv[facility]dmu[facility] Work Phone: 04-10-2022 09:14-0400 SaO2% (BldA) [Mass fraction] 98 % No PCP None [facility]nflzu[facility]Jbcmd [facility] Work Phone: 04-10-2022 09:14-0400 Systolic blood pressure 140 mm[Hg] No PCP None [facility] Work Phone: 03-27-2022 09:51-0400 Body height 149.86 cm No PCP None OJ[facility]Tvzfuqp[facility]ga [facility] Work Phone: 03-27-2022 09:51-0400 Body mass index (BMI) [Ratio] 35.16 kg/m2 No PCP None TF[facility]Vpcstfp[facility]Hrfmj [facility] Work Phone: 03-27-2022 09:51-0400 Body surface area Derived from formula 1.74 m2 No PCP None YU[facility]Afzrjwp[facility]Xxxvq [facility] Work Phone: 03-27-2022 09:51-0400 Body temperature 97.7 [degF] No PCP None WM[facility]Kuaeglm[facility]Pytt n [facility] Work Phone: 03-27-2022 09:51-0400 Body weight 78.95 kg No PCP None AY[facility]Tecxywp[facility]Impso [facility] Work Phone: 03-27-2022 09:51-0400 Diastolic blood pressure 83 mm[Hg] No PCP None ZD[facility]uc[facility] Work Phone: 03-27-2022 09:51-0400 Heart rate 78 /min No PCP None RG[facility]Awzcgvf[facility]Ypktc [facility] Work Phone: 03-27-2022 09:51-0400 SaO2% (BldA) [Mass fraction] 99 % No PCP None XV[facility]Ecigvax[facility]Mkktp [facility] Work Phone: 03-27-2022 09:51-0400 Systolic blood pressure 121 mm[Hg] No PCP None VQ[facility]Hitpxuz[facility]Mnmtp [facility] Work Phone: 02-18-2022 15:00-0400 Diastolic blood pressure 63 mm[Hg] Cheng Saldaña [facility] 02-18-2022 15:00-0400 Heart rate 79 /min Cheng Piotr [facility] 02-18-2022 15:00-0400 Mean blood pressure 79 mm[Hg] Cheng Piotr [facility] 02-18-2022 15:00-0400 SaO2% (BldA) [Mass fraction] 100 % Cheng Piotr [facility] 02-18-2022 15:00-0400 Systolic blood pressure 111 mm[Hg] Cheng Piotr [facility] 02-18-2022 14:00-0400 Diastolic blood pressure 52 mm[Hg] Cheng Piotr [facility] 02-18-2022 14:00-0400 Heart rate 94 /min Cheng Piotr [facility] 02-18-2022 14:00-0400 Mean blood pressure 71 mm[Hg] Cheng Piotr [facility] 02-18-2022 14:00-0400 SaO2% (BldA) [Mass fraction] 94 % Cheng Piotr [facility] 02-18-2022 14:00-0400 Systolic blood pressure 108 mm[Hg] Cheng Piotr [facility] 02-18-2022 13:52-0400 Heart rate 85 /min Cheng Piotr [facility] 02-18-2022 13:52-0400 Respiratory rate 16 /min Cheng Piotr [facility] 02-18-2022 13:52-0400 SaO2% (BldA) [Mass fraction] 98 % Cheng Piotr [facility] 02-18-2022 11:54-0400 Body temperature 98.24 [degF] Cheng Piotr [facility] 02-18-2022 11:54-0400 Diastolic blood pressure 65 mm[Hg] Cheng Saldaña [facility] 02-18-2022 11:54-0400 Heart rate 102 /min Cheng Piotr [facility] 02-18-2022 11:54-0400 Systolic blood pressure 118 mm[Hg] Cheng Saldaña [facility] Encounters Encounter Date Encounter Type Care Provider Facility Start: 12-01-2023 End: 12-01-2023 ambulatory Kayley Mo Other [facility] Other Start: 12-01-2023 Office outpatient visit 25 minutes Kayley Mo [facility] Start: 11-03-2023 End: 11-03-2023 ambulatory Cheng Cruz Other [facility] Other Start: 11-03-2023 Office outpatient visit 15 minutes Cheng Cruz [facility] Start: 09-28-2023 End: 09-28-2023 ambulatory Cheng Cruz Other [facility] Other Start: 09-28-2023 Office outpatient ne w 30 minutes Cheng Cruz [facility] Start: 09-24-2023 End: 09-24-2023 Emergency department patient visit Alton Boss Facility:[facility] Start: 09-24-2023 End: 09-24-2023 Emergency department patient visit DO Shauna Atkinson Work Phone: [facility] Work Phone: Start: 02-23-2023 End: 02-23-[address] DOCTOR HAAS Facility: Start: 01-09-2023 End: 01-09-2023 Emergency department patient visit Joseph Wallace Facility:[facility] Start: 01-09-2023 End: 01-09-2023 Emergency department patient visit DO Shauna Atkinson Work Phone: [facility] Work Phone: Start: 01-09-2023 End: 01-09-[address] DOCTOR HAAS Facility:[facility] Start: 01-05-2023 End: 01-05-[address] ISRAEL MISC Facility:[facility] Start: 12-05-2022 End: 12-05-[address] DOCTOR CASTILLOC Facility:[facility] Start: 10-13-2022 End: 10-13-2022 Emergency department patient visit DO Shauna Atkinson Work Phone: [facility] Start: 10-12-2022 End: 10-12-2022 Emergency department patient visit DO Shauna Atkinson Work Phone: [facility] Start: 10-11-2022 End: 10-11-[address] GIOVANA GILMORE Facility:[facility] Start: 05-03-2022 Chart Update No PCP None [facility] Work Phone: Start: 04-29-2022 AUDIT No PCP None [facility] Work Phone: Start: 04-10-2022 FUV, Provider: Juan Taylor, Status: Pen, Time: 9:00 AM No PCP None [facility] Work Phone: Start: 04-10-2022 Office outpatient visit 15 minutes No PCP None [facility] Work Phone: Start: 04-09-2022 Chart Update No PCP None [facility] Work Phone: Start: 03-27-2022 Office outpatient ne w 30 minutes No PCP None [facility] Work Phone: Start: 02-18-2022 End: 02-18-2022 Emergency department patient visit Cheng Saldaña [facility] Start: 09-30-2018 Emergency dept visit high severity&threat funcj JAGDISH ALMAGUER [facility] Start: 09-30-2018 End: 09-30-2018 Patient encounter procedure JAGDISH ALMAGUER Facility:[id number] Procedures Date Procedure Procedure Detail Performing Clinician Start: 09-24-2023 Radiologic examinati on of knee DO Shauna Atkinson Work Phone: Start: 01-09-2023 Transvaginal echography DO Shauna Atkinson Work Phone: Start: 01-09-[address] [facility] Work Phone: Start: 11-02-2015 Extraction of wisdom tooth Cheng Saldaña Tonsillar structure (palatine) (body structure) Cheng Saldaña Plan of Treatment Date Care Activity Detail Author Start: 10-12-2022 [facility] Start: 05-08-2022 POV, Provider: Juan Taylor, Status: Pen, Time: 10:00 AM POV, Provider: Juan Taylor, Status: Pen, Time: 10:[address] [facility] Work Phone: Start: 04-10-2022 FUV, Provider: Juan Taylor, Status: Pen, Time: 9:00 AM [facility] Work Phone: Alanine aminotransfe rase [Enzymatic activity/volume] in Serum or Plasma by No addition of P-5'-P [facility] Work Phone: Albumin [Mass/volume ] in Serum or Plasma [facility] Work Phone: Albumin/Globulin ratio [facility] Work Phone: Alkaline phosphatase [Enzymatic activity/volume] in Serum or Plasma [facility] Work Phone: Anion gap measurement [facility] Work Phone: Aspartate aminotrans ferase [Enzymatic activity/volume] in Serum or Plasma [facility] Work Phone: Basophils [#/volume] in Blood by Automated count [facility] Work Phone: Basophils/100 leukoc ytes in Blood by Automated count [facility] Work Phone: Bilirubin.total [Mas s/volume] in Serum or Plasma [facility] Work Phone: Calcium [Mass/volume ] in Serum or Plasma [facility] Work Phone: Carbon dioxide, tota l [Moles/volume] in Serum or Plasma [facility] Work Phone: Chloride [Moles/volu me] in Serum or Plasma [facility] Work Phone: Creatinine and Glome rular filtration rate.predicted panel - Serum, Plasma or Blood [facility] Work Phone: Eosinophils [#/volum e] in Blood [facility] Work Phone: Eosinophils/100 leuk ocytes in Blood by Automated count [facility] Work Phone: Erythrocyte distribu tion width [Ratio] by Automated count [facility] Work Phone: Erythrocytes [#/volu me] in Blood [facility] Work Phone: Globulin [Mass/volum e] in Serum [facility] Work Phone: Glucose [Mass/volume ] in Serum or Plasma [facility] Work Phone: Hematocrit [Volume F raction] of Blood [facility] Work Phone: Hemoglobin [Mass/vol ume] in Blood [facility] Work Phone: Leukocytes [#/volume ] corrected for nucleated erythrocytes in Blood by Automated coun [facility] Work Phone: Leukocytes [#/volume ] in Blood [facility] Work Phone: Lymphocytes [#/volum e] in Blood by Automated count [facility] Work Phone: Lymphocytes/100 leuk ocytes in Blood by Automated count [facility] Work Phone: MCH [Entitic mass] b y Automated count [facility] Work Phone: MCHC [Mass/volume] b y Automated count [facility] Work Phone: MCV [Entitic volume] by Automated count [facility] Work Phone: Measurement of renal function [facility] Work Phone: Monocytes [#/volume] in Blood by Automated count [facility] Work Phone: Monocytes/100 leukoc ytes in Blood by Automated count [facility] Work Phone: Neutrophils [#/volum e] in Blood by Automated count [facility] Work Phone: Neutrophils/100 leuk ocytes in Blood by Automated count [facility] Work Phone: Nucleated erythrocyt es [Presence] in Blood by Automated count [facility] Work Phone: Patient Education [facility] Work Phone: Patient referral [facility] Work Phone: Platelet mean volume [Entitic volume] in Blood by Automated count [facility] Work Phone: Platelets [#/volume] in Blood [facility] Work Phone: Potassium [Moles/vol ume] in Serum or Plasma [facility] Work Phone: Protein [Mass/volume ] in Serum or Plasma [facility] Work Phone: Sodium [Moles/volume ] in Serum or Plasma [facility] Work Phone: Urea nitrogen [Mass/ volume] in Serum or Plasma [facility] Work Phone: Payers Date Payer Category Payer Self-pay [id number] 1998 Unknown [id number] 2.16.84 [id number] 1998 Unknown [id number] 2.16.84 [id number] 1998 Unknown [id number] 2.16.84 [id number] 1998 Unknown [id number] 2.16.84 [id number] 1998 Unknown [id number] 2.16.84 [id number] 1998 Unknown [id number] 2.16.84 [id number] 1961 Medicaid [id number] 17e [id number] 1961 Medicaid [id number] Medicaid [id number] Medicaid [id number] Unknown [employer] Unknown [facility] [place] [id number] Unknown [id number] 2.16.8 [id number] Unknown [id number] 2.16.8 [id number] Unknown [id number] 2.16.8 [id number] Social History Date Type Detail Facility Start: 02-18-2022 Tobacco smoking status Heavy t obacco smoker (finding) [facility] Sex Assigned At Female [facility] Start: 10-12-2022 End: 09-24-2023 Tobacco smoking status NHIS Smoker (finding) [facility] Start: 2000 Sex Assigned At Female F [facility] Clinical Notes 11-03-2021 to 12-01-2023 Note Date & Type Note Facility 12-01-2023 Evaluation note Encounter Date Diagnosis Assessment Notes Nov, Acute cough (ICD-10 - R05.1) Nov, Acute viral bronchitis (ICD-10 - J20.8) Advised patient that rapid COVID/Influenza A/B test was negative today in office. Discussed diagnosis with patient in detail. Will treat as viral today based on physical exam and duration of symptoms, antibiotics are not indicated for viral infections. Advised patient that viral syndromes last 7-10 days, cough may linger for 3 weeks. Take medications as prescribed, reviewed side effects of steroid, take with food and plenty of water. Supportive care as directed, push fluids and rest, may use Tylenol/Motrin as needed for fever/discomfort , cool mist humidifier. May use Capmist as directed. Patient to follow up with PCP in 2-3 days if symptoms do not improve. Work note provided. Immediate eval if SOB, difficulty breathing, chest pain, dizziness, or other concerning symptoms. Patient verbalizes understanding and is agreeable to treatment plan [facility] Other 01-02-2024 Evaluation note* Encounter Date Diagnosis Assessment Notes Treatment Notes Treatment Clinical Notes Nov, Patellofemoral pain syndrome of left knee (ICD-10 - M22.2X2) She continues to progress from her injury. I anticipate she will continue to heal. We discussed she can return to work with shortened hours and weight bearing as tolerated for at least 6 months. She can follow up with me as needed. Nov, Chondromalacia of left knee (ICD-10 - M94.262) [facility] Other 11-27-2023 Evaluation note* Encounter Date Diagnosis Assessment Notes Treatment Notes Treatment Clinical Notes Sep, Patellofemoral pain syndrome of left knee (ICD-10 - M22.2X2) Images were reviewed with the patient and possible pain etiologies were discussed. Many of the patient's symptoms are coming from injury to the patella-femoral musculature and tendons. Treatment modalities were discussed including oral anti-inflammatories, corticosteroid injections, physical therapy. We discussed that patient's symptoms will most likely resolve with conservative management. If the patient's symptoms persist, we will consider obtaining a repeat MRI as well as possible surgery. Physical therapy was emphasized to the patient and performing the exercises on their own in addition to formal therapy. A script for formal therapy was given to the patient. She was given a left knee freerunner brace for patella stabilization and overall knee support. Meloxicam 15 mg was sent to patients pharmacy. All questions answered and patient agreed with the treatment plan. She will follow up in 6-8 weeks if needed. Sep, Chondromalacia of left knee (ICD-10 - M94.262) [facility] Other 02-03-2023 NotePROCEDURE: XR HAND RT MIN 3V HISTORY: Pain ; acute fifth digit pain since injury 2 weeks ago COMPARISON: None. FINDINGS: BONES:No acute fracture, dislocation, or bone lesion. Separate corticated ossification adjacent tip of ulnar styloid process favoring sequela of remote injury. SOFT TISSUES:No visible soft tissue swelling. EFFUSION:None visible. OTHER: Negative. IMPRESSION: 1. No acute bone abnormality or suspicious findings. Electronically authenticated by: SHAUNA ANTHONY Date: 2022-12-05 12:22[facility]06-24-2022 NotePost Operative Note: PreOp Diagnosis: Chronic infection sebaceous cyst right chest Post-Procedure Diagnosis: Same Procedure: 1. Excision right chest cyst 5x2 cm 2. Complex closure 5cm 3. 4. 5. Surgeon: Claudia Resident/Fellow/Other Color Artist: Geraldine Anesthesia: General, 0.5% marciane Estimated Blood Loss (mL): 3cc Specimen: yes. right skin cyst Findings: sebaceous cyst removed without visible pus Patient Returned To/Condition: To RR in sat cond Attestation: Note Completion: Attending AttestationI was present for the entire procedure Electronic Signatures: Juan Taylor) (Signed 25-Apr-2022 10:40) Authored: Post Operative Note, Note Completion Last Updated: 25-Apr-2022 10:40 by Juan Taylor)[facility] 04-25-2022 NoteHistory & Physical Reviewed: /Lactating: Are You no (1) Are You Currently Breastfeedingno (1) I have reviewed the History and Physical dated: 10-Apr-2022 History and Physical reviewed and relevant findings noted. Patient examined to review pertinent physical findings.: No significant changes Home Medications Reviewed: no changes noted Allergies Reviewed: no changes noted ERAS (Enhanced Recovery After Surgery): ERAS Patient: no Consent: COVID-19 Consent: COVID-19 Risk ConsentSurgeon has reviewed jones risks related to the risk of atif COVID-19 and if they contract COVID-19 what the risks are. Attestation: Note Completion: I am a: Resident/Fellow Attending AttestationI saw and evaluated the patient. I personally obtained the jones and critical portions of the history and physical exam or was physically present for jones and critical portions performed by the resident/fellow. I reviewed the resident/fellows documentation and discussed the patient with the resident/fellow. I agree with the resident/fellows medical decision making as documented in the note. I personally evaluated the patient [id number] Electronic Signatures: Sascha Chandler (Resident)) (Signed 25-Apr-2022 08:43) Authored: History & Physical Reviewed, ERAS, Consent, Note Completion Juan Taylor) (Signed 05-May-2022 13:45) Authored: Note Completion Co-Signer: History & Physical Reviewed, ERAS, Consent, Note Completion Last Updated: 05-May-2022 13:45 by Juan Taylor) References: 1. Data Referenced From Patient Profile - Preop v3 25-Apr-2022 08:07[facility]04-19-2022 Hospital Discharge instructions Patient Education 02/18/2022 14:56:49 Epidermal Cyst, Ejov-jx-Qajb Epidermal Cyst An epidermal cyst is a small, painless lump under your skin. The cyst contains a grayish-white, bad-smelling substance (keratin). Do not try to pop or open an epidermal cyst yourself. What are the causes? A blocked hair follicle. A hair that curls and re-enters the skin instead of growing straight out of the skin. A blocked pore. Irritated skin. An injury to the skin. Certain conditions that are passed along from parent to child (inherited). Human papillomavirus (HPV). Long-term sun damage to the skin. What increases the risk? Having acne. Being overweight. Being 30-40 years old. What are the signs or symptoms? These cysts are usually harmless, but they can get infected. Symptoms of infection may include: Redness. Inflammation. Tenderness. Warmth. Fever. A grayish-white, bad-smelling substance drains from the cyst. Pus drains from the cyst. How is this treated? In many cases, epidermal cysts go away on their own without treatment. If a cyst becomes infected, treatment may include: Opening and draining the cyst, done by a doctor. After draining, you may need minor surgery to remove the rest of the cyst. Antibiotic medicine. Shots of medicines (steroids) that help to reduce inflammation. Surgery to remove the cyst. Surgery may be done if the cyst: ?Becomes large. ?Bothers you. ?Has a chance of turning into cancer. Do not try to open a cyst yourself. Follow these instructions at home: Take ypki-iny-misidky and prescription medicines only as told by your doctor. If you were prescribed an antibiotic medicine, take it it as told by your doctor. Do not stop usingthe antibiotic even if you start to feel better. Keep the area around your cyst clean and dry. Wear loose, dry clothing. Avoid touching your cyst. Check your cyst every day for signs of infection. Check for: ?Redness, swelling, or pain. ?Fluid or blood. ?Warmth. ?Pus or a bad smell. Keep all follow-up visits as told by your doctor. This is important. How is this prevented? Wear clean, dry, clothing. Avoid wearing tight clothing. Keep your skin clean and dry. Take showers or baths every day. Contact a doctor if: Your cyst has symptoms of infection. Your condition does not improve or gets worse. You have a cyst that looks different from other cysts you have had. You have a fever. Get help right away if: Redness spreads from the cyst into the area close by. Summary An epidermal cyst is a sac made of skin tissue. If a cyst becomes infected, treatment may include surgery to open and drain the cyst, or to remove it. Take jego-glf-dpacirx and prescription medicines only as told by your doctor. Contact a doctor if your condition is not improving or is getting worse. Keep all follow-up visits as told by your doctor. This is important. This information is not intended to replace advice given to you by your health care provider. Make sure you discuss any questions you have with your health care provider. Document Released: 11/26/2005 Document Revised: 02/09/2020 Document Reviewed: 07/28/2019 [employer] Patient Education 2020 G3. Follow Up Care 02/18/2022 11:50:54 With:Sara MCGRATH, Ernesto Brooks, FREEMAN Address: When:02/21/2022 [facility]04-19-2022 Evaluation + Plan noteExtracted from: Title:ED Note Author:Fabi Iraheta PA-C ate:02/18/22 1. Epidermoid cyst of skin o f chest (L72.0: Epidermal cyst) 2. Chest pain (R07.9: Chest pain, unspecified) Orders: albuterol, 2.5 mg, 3 mL, Soln-Inh, Inhalation, Once, Stop date 02/18/22 13:10:00 EDT, STAT, Start date 02/18/22 13:10:00 EDT aspirin, 162 mg = 2 tab(s), Tab-Chew, Oral, Once, Stop date 02/18/22 12:13:00 EDT, STAT, Start date 02/18/22 12:13:00 EDT, 02/18/22 12:13:00 EDT morphine, 2 mg = 0.5 mL, Injection, IV Push, Once, Stop date 02/18/22 12:14:00 EDT, STAT, Start date 02/18/22 12:14:00 EDT, 02/18/22 12:14:00 EDT morphine, 2 mg = 0.5 mL, Injection, IV Push, Once, Stop date 02/18/22 14:55:00 EDT, STAT, Start date 02/18/22 14:55:00 EDT, 02/18/22 14:55:00 EDT ondansetron, 4 mg = 2 mL, Injection, IV Push, Once, Stop date 02/18/22 12:13:00 EDT, STAT, Start date 02/18/22 12:13:00 EDT, 02/18/22 12:13:00 EDT Sodium Chloride 0.9% intravenous solution 1,000 mL, 1,000 mL, IV, bolus, STAT, Start date 02/18/22 12:13:00 EDT, Total volume (mL): 1,000, Bolus Dose: 1,000 mL, 58 kg, 1.55, m2 Automated Diff CBC w/ Auto Diff Comprehensive Metabolic Panel ED Cardiac Monitoring eGFR Extra Blue Tube Extra SST Tube Troponin 0 Hr. U Beta Hcg Qual UA With Cult Reflex XR Chest 2 Views [facility]01-02-2022 History of Present illness Narrative* Sofia Centeno is a 21 year old female presenting to the [facility] with a chronic right chest skin abscess that she would like excised. She has been receiving care at [facility]. She has had several I&D's of the abscess with placement of pigtail catheter fora month and 1/2 and antibiotic therapy. This started about 7 years ago with a small bump and was told at that time it was just a cyst. * Complains of pains in neck and back. * She states she had a bedside ultrasound. We do not have those reports. 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 Diagnosed at age 50. * Maternal grandfather with lung and liver cancer [facility] Work Phone: [phone] 515-863501-02-2022 History of Present illness Narrative* Sofia Centeno is a 21 year old female presenting to the [facility] with a chronic right chest skin abscess that she would like excised. She has been receiving care at [facility]. She has had several I&D's of the abscess with placement of pigtail catheter fora month and 1/2 and antibiotic therapy. This started about 7 years ago with a small bump and was told at that time it was just a cyst. * Complains of pains in neck and back.She states she had a bedside ultrasound. We do not have those reports. * She was seen on 03/27/22 She was started on Bactrim. * She presents for follow-up. She would like area excised. 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 Diagnosed at age 50. * Maternal grandfather with lung and liver cancer [facility] Work Phone: Evaluation noteNo assessment information available [facility] Work Phone: History general Narrative - Reported* Type Description Date Medical History None Surgical History Tonsils Surgical History [facility] Other Hisvjyg general Narrative - Reported* Type Description Date Medical History None Surgical History Tonsils Surgical History [facility] Surgical History C section Hospitalization History See Above [facility] Other Hospital course Narrative No data available for this section [facility] Additional Instructions Take bcsv-wer-mtrjdox cough and cold medication as needed for symptoms May take the Zofran every 8 hours as needed Use your albuterol inhaler every 4 hours as needed for wheezing cough shortness of breath Increase oral fluids Follow-up with family doctor as needed Return to the ER for significant respiratory distress chest pain vomiting or any other [facility]Way[facility] Work Phone: Hospital Discharge instructions Additional Instructions If your symptoms return/worsen or you develop any further concerns or symptoms please see your doctor or return to the emergency department immediately.[facility] Work Phone: Hospital Discharge instructions Additional Instructions Continue your Tylenol and ibuprofen at home Follow-up with your orthopedic physician Return if symptoms are worseWayne Hospital Work Phone: Summary Purpose Family History No Family History Records FoundNo Family History Records FoundNo Family History Records FoundNo Family History Records FoundNo Family History Records FoundNo Family History Records FoundNo Family History Records Found Advance Directives No Advanced Directives Records Found Advance Directive Response Recorded Date/ Time Advance Directives No January 30 020 10:03am Chief Complaint Right chest chronic skin abscessFollow-up infected right chest sebaceous cyst Chief Complaint and Reason for Visit Chief Complaint Vomiting, Fever, Abd pain Chief Complaint Vomiting, Fever, Abd pain fever vomiting Chief Complaint Vomiting, Fever, Abd pain fever vomiting vaginal bleeding Chief Complaint L knee pain Additional Source Comments INFORMATION SOURCE (unrecogn ized section and content) DATE CREATED AUTHOR 10/11/2018 [facility] DATE CREATED AUTHOR AUTHOR'S ORGANIZ ATION 02/19/2022 Gabriel Quinteros [facility] DATE CREATED AUTHOR AUTHOR'S ORGANIZ ATION 05/05/2022 [facility] DATE CREATED AUTHOR AUTHOR'S ORGANIZ ATION 05/12/2022 [employer] DATE CREATED AUTHOR AUTHOR'S ORGANIZ ATION 02/25/2023 [facility] DATE CREATED AUTHOR AUTHOR'S ORGANIZ ATION 12/03/2023 [facility] DATE CREATED AUTHOR AUTHOR'S ORGANIZ ATION 12/11/2023 [facility] Care Teams (unrecognized sec tion and content) Team Status: Inactive Member Role Status Dates Shauna Atkinson , Primary Care Provider Active Martinez Kumar DO Emergency Provider Active Team Status: Active Member Role Status Dates Shauna Atkinson DO Primary Care Provider Active Team Status: Inactive Member Role Status Dates Shauna Atkinson DO Primary Care Provider Active Payton Hernández [facility] Emergency Provider Active Team Status: Inactive Member Role Status Dates Shauna Atkinson DO Primary Care Provider Active Joseph Wallace DO Emergency Provider Active Team Status: Inactive Member Role Status Dates Shauna Atkinson DO Primary Care Provider Active Alton Boss MD Emergency Provider Active Goals (unrecognized section and content) Goals may be documented in a n alternate section REASON FOR VISIT (unrecogniz ed section and content) Left Knee PainRecheck Left K neeCONGESTION, BODYACHES FOR RECORDS PERTAINING TO PATIENTS WHO ARE OR HAVE BEEN ENROLLED IN A CHEMICAL DEPENDENCY/SUBSTANCEABUSE PROGRAM, SOME INFORMATION MAY BE OMITTED. This clinical summary was aggregated from multiple sources. Caution should be exercised in using it in the provision of clinical care. This summary normalizes information from multiple sources, and as a consequence, information in this document may materially change the coding, format and clinical context of patient data. In addition, data may be omitted in some cases. CLINICAL DECISIONS SHOULD BE BASED ON THE PRIMARY CLINICAL RECORDS. [facility]. provides no warranty or guarantee of the accuracy or completeness of information in this document.
[2023-12-18 09:59] VITALS: BP 100/59; BP 103/60; BP 112/68; PULSE 100; PULSE 79; PULSE 80
--- NOTE | 2023-12-18 10:02 | ED_ITS ---
HPI - General Adult General Chief complaint: Nausea/Vomiting/Diarrhea Stated complaint: NAUSEA/VOMITING Time Seen by Provider: 12/18/23 10:00 Source: patient Mode of arrival: walk-in Limitations: no limitations History of Present Illness HPI narrative: Patient is a 23-year-old female who is presenting to the ER with chief complaint of nausea, vomiting, diarrhea since Thursday. Patient also has headache, she has a history of migraines. Patient normally takes Motrin 800 mg at home for her headaches/migraines. Patient has mild abdominal cramping, no urinary frequency urgency or burning. Patient has had watery stool for the past 2 days. Patient's headache was not the worse headache of her life, not sudden onset, not thunderclap in nature. 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 Patient is at bedside as well, he has had flulike symptoms for the past week. Patient at bedside has Crohn's. No other acute complaints at this time. All systems are negative except as noted/marked. All systems reviewed and other marcelino negative. Nurses note and vital signs reviewed and patient is not hypoxic. General: The patient appears well and in no apparent distress. Patient is resting comfortably on cart. Patient is not toxic, lethargic, or listless Skin: Warm, dry, no pallor noted. There is no rash noted. No petechiae, purpura. Head: Normocephalic, atraumatic, patient has mild tenderness to palpation to the soft tissue to bilateral cervical spine, full range of motion of cervical spine no meningeal signs or symptoms however. No nuchal rigidity. Eye: Normal conjunctiva, no drainage, EOMI. PERRL Ears, Nose, Mouth, and Throat: oral mucosa is moist. Nares patent. Mouth without vesicles. Cardiovascular: Regular Rate and Rhythm, no murmur, gallop, rub Respiratory: Patient is in no distress, no accessory muscle use, lungs are clear to auscultation, no wheezing, rales or rhonchi Back: non-tender, no CVA tenderness bilaterally to percussion. No CT LS midline pain GI: Mild diffuse tenderness to palpation no suprapubic tenderness to palpation, no masses appreciated. No rebound, guarding, or rigidity noted. No distention Musculoskeletal: Patient has full range of motion of all of the extremities, no motor, sensory, or focal neurological deficits Neurological: A&O x4, normal speech Psychiatric: Cooperative Related Data Previous Rx's Medication Instructions Recorded metoclopramide HCl 10 mg tablet 10 mg PO Q6H PRN nausea and 09/11/23 (Reglan) vomiting 3 days #7 tabs dicyclomine 20 mg tablet 20 mg PO TID PRN abdominal pain #7 12/18/23 tabs ondansetron 4 mg disintegrating 4 mg PO Q4H PRN nausea and 12/18/23 tablet vomiting 3 days #6 tabs Allergies Allergy/AdvReac Type Severity Reaction Status Date / Time ketorolac [From Toradol] Allergy Severe Hives Verified 09/23/23 16:50 Penicillins Allergy Severe Verified 09/11/23 11:54 tramadol AdvReac Severe Verified 09/11/23 11:54 PFSH PFSH Social History Smoking status: Current every day smoker Exam Constitutional Vital Signs, click to edit/add: Last Vital Signs Temp 98.3 F 12/18/23 09:52 Pulse 80 12/18/23 09:59 Resp 18 12/18/23 09:52 BP 103/60 12/18/23 09:59 Pulse Ox 96 12/18/23 09:52 Course Vital Signs Vital signs: Vital Signs Temperature 98.3 F 12/18/23 09:52 Pulse Rate 89 12/18/23 09:52 Respiratory Rate 18 12/18/23 09:52 Blood Pressure 132/83 12/18/23 09:52 Pulse Oximetry 96 12/18/23 09:52 Temperature 98.3 F 12/18/23 09:52 Pulse Rate 80 12/18/23 09:59 Respiratory Rate 18 12/18/23 09:52 Blood Pressure 103/60 12/18/23 09:59 Pulse Oximetry 96 12/18/23 09:52 Medical Decision Making MDM Narrative Medical decision making narrative: Patient was initially given 1 L of IV fluids and IV Zofran. 1 hour later, patient still having headache, neck pain, minimal nausea. Patient was in addition given IV Norflex and IV Compazine. Patient was told that we do not backdate work notes, the patient can be given a work note for today and tomorrow if needed. Patient will be sent home with prescription for Zofran and Bentyl. No questions at discharge. Patient feels better after IV fluids, IV medications given. No questions. Lab Data Labs: Lab Results 12/18/23 Range/Units 09:57 WBC 11.2 H (4.0-11.0) 10^3/uL RBC 4.91 (4.20-5.40) 10^6/uL Hgb 15.2 (12.0-16.0) g/dL Hct 46.4 (36.0-48.0) % MCV 94.5 (81.0-99.0) fL MCH 31.0 (26.7-34.0) pg MCHC 32.8 (29.9-35.2) g/dL RDW 13.2 (11.0-15.0) % Plt Count 302 (150-450) 10^3/uL MPV 11.6 (9.5-13.5) fL Neut % (Auto) 69.2 (43.0-75.0) % Lymph % (Auto) 21.8 (20.5-60.0) % [place] % (Auto) 5.8 (1.7-12.0) % Eos % (Auto) 2.4 (0.9-7.0) % Baso % (Auto) 0.4 (0.2-2.0) % Neut # (Auto) 7.7 H (1.4-6.5) 10^3/uL Lymph # (Auto) 2.4 (1.2-3.8) 10^3/uL [place] # (Auto) 0.7 (0.3-0.8) 10^3/uL Eos # (Auto) 0.3 (0.0-0.7) 10^3/uL Baso # (Auto) 0.0 (0.0-0.1) 10^3/uL Abs Immat Gran (auto) 0.05 H (0.00-0.03) 10^3/uL Imm/Tot Granulo (auto) 0.4 (0.0-0.5) % Sodium 139 (136-145) mmol/L Potassium 3.8 (3.5-5.1) mmol/L Chloride 101 (98-107) mmol/L Carbon Dioxide 26.2 (21.0-32.0) mmol/L Anion Gap 15.6 BUN 9.0 (7.0-18.0) mg/dL Creatinine 0.63 (0.55-1.02) mg/dL Est GFR ( Amer) >60 (>=60) Est GFR (Non-Af Amer) >60 (>=60) BUN/Creatinine Ratio 14.3 Glucose 84 (74-106) mg/dL Calcium 8.9 (8.5-10.1) mg/dL Total Bilirubin 2.3 H (0.2-1.0) mg/dL AST 21 (15-37) U/L ALT 28 (14-59) U/L Alkaline Phosphatase 74 (46-116) U/L Total Protein 7.7 (6.4-8.2) g/dL Albumin 3.8 (3.4-5.0) g/dL Globulin 3.9 g/dL Albumin/Globulin Ratio 1.0 Lipase 15.0 L (16.0-77.0) U/L Urine Color Lt. yellow (YELLOW) Urine Clarity Clear (CLEAR) Urine pH 6.5 (5.0-9.0) Ur Specific [place] 1.015 (1.005-1.025) Urine Protein Negative (NEG/TRACE) mg/dL Urine Glucose (UA) Negative (NEGATIVE) mg/dL Urine Ketones Negative (NEGATIVE) mg/dL Urine Occult Blood Trace-i (NEGATIVE) Urine Nitrite Negative (NEGATIVE) Urine Bilirubin Negative (NEGATIVE) Urine Urobilinogen 1.0 (0.2-1.0) EU/dL Ur Leukocyte Esterase Negative (NEGATIVE) Urine RBC 0-2 (0-2) #/HPF Urine WBC None seen (NONE SEEN) #/HPF Ur Squamous Epith Cells Rare (NONE/RARE) #/LPF Urine Crystals None seen (None Seen) #/HPF Urine Bacteria None seen (NONE SEEN) #/HPF Urine Casts None seen (NONE SEEN) #/LPF Urine Mucus None seen (NONE SEEN) Urine HCG, Qual Negative (NEGATIVE) Discharge Plan Discharge Chief Complaint: Nausea/Vomiting/Diarrhea Clinical Impression: Diarrhea, Headache, Nausea & vomiting Patient Disposition: Home, Self-Care Time of Disposition Decision: 10:50 Condition: Fair Prescriptions / Home Meds: New dicyclomine 20 mg tablet 20 mg PO TID PRN (Reason: abdominal pain) Qty: 7 0RF ondansetron 4 mg tablet,disintegrating 4 mg PO Q4H PRN (Reason: nausea and vomiting) 3 Days Qty: 6 0RF No Action metoclopramide HCl [Reglan] 10 mg tablet 10 mg PO Q6H PRN (Reason: nausea and vomiting) 3 Days Qty: 7 0RF Instructions: Acute Nausea and Vomiting (ED), Acute Diarrhea (ED), General Headache (ED) Additional Instructions: Increase fluids at home, Gatorade, Powerade, or water. Alternate using DayQuil, NyQuil, and Flonase. At Mucinex as well as needed. Alternate Tylenol and Motrin every 4 hours to help with fever control, body aches or joint pain. Use lilz-ooc-yxiycwb vitamin C, vitamin D3, and zinc to help fight infection and help with her immune system. Stand Alone Forms: Work/School Release, Portal Instructions Referrals: Cheng Cruz PA [Primary Care Provider] - 1 week
[2023-12-18] MEDS: 0.9 % SODIUM CHLORIDE 1,000 ML 999 ML IV (10:15)
[2023-12-18] MEDS: ONDANSETRON PF 4 MG/2 ML VIAL IV (10:15)
[2023-12-18 10:21] LABS: Basophils Percent Auto 0.4 % (0.2-2.0); Eosinophils Absolute Auto 0.3 10^3/uL (0.0-0.7); Eosinophils Percent Auto 2.4 % (0.9-7.0); Hematocrit 46.4 % (36.0-48.0); Hemoglobin 15.2 g/dL (12.0-16.0); Immature Granulocytes Abs Auto 0.05 10^3/uL (0.00-0.03); Immature Granulocytes Pct Auto 0.4 % (0.0-0.5); Lymphocytes Absolute Auto 2.4 10^3/uL (1.2-3.8); Lymphocytes Percent Auto 21.8 % (20.5-60.0); Mean Corpuscular HGB Conc 32.8 g/dL (29.9-35.2); Mean Corpuscular Volume 94.5 fL (81.0-99.0); Mean Platelet Volume 11.6 fL (9.5-13.5); Monocytes Absolute Auto 0.7 10^3/uL (0.3-0.8); Monocytes Percent Auto 5.8 % (1.7-12.0); Neutrophils Absolute Auto 7.7 10^3/uL (1.4-6.5); Neutrophils Percent Auto 69.2 % (43.0-75.0); Platelet Count 302 10^3/uL (150-450); Red Blood Count 4.91 10^6/uL (4.20-5.40); Red Cell Distribution Width 13.2 % (11.0-15.0); White Blood Count 11.2 10^3/uL (4.0-11.0)
[2023-12-18 10:25] LABS: Bilirubin Urine NEGATIVE (NEGATIVE); Blood Urine TRACE-I (NEGATIVE); Clarity Urine CLEAR (CLEAR); Color Urine LT. YELLOW (YELLOW); Glucose Urine UA NEGATIVE (NEGATIVE); Ketones Urine NEGATIVE (NEGATIVE); Leukocyte Esterase Urine NEGATIVE (NEGATIVE); Nitrite Urine NEGATIVE (NEGATIVE); Protein Urine NEGATIVE (NEG/TRACE); Specific Gravity Urine 1.015 (1.005-1.025); pH Urine 6.5 (5.0-9.0)
[2023-12-18 10:29] LABS: HCG Qualitative Urine* NEGATIVE (NEGATIVE)
[2023-12-18 10:31] LABS: Bacteria Urine NONE SEEN #/HPF (NONE SEEN); Cast Seen? NONE SEEN #/LPF (NONE SEEN); Crystals Seen? None Seen #/HPF (None Seen); Mucus Urine NONE SEEN (NONE SEEN); RBC Urine 0-2 #/HPF (0-2); Squamous Epithelial Cell Urine RARE #/LPF (NONE/RARE); WBC Urine NONE SEEN #/HPF (NONE SEEN)
[2023-12-18 10:52] LABS: Alanine Aminotransferase 28 U/L (14-59); Albumin Level 3.8 g/dL (3.4-5.0); Alkaline Phosphatase 74 U/L (46-116); Anion Gap 15.6; Aspartate Amino Transferase 21 U/L (15-37); BUN Creatinine Ratio 14.3; Bilirubin Total 2.3 mg/dL (0.2-1.0); Calcium 8.9 mg/dL (8.5-10.1); Carbon Dioxide 26.2 mmol/L (21.0-32.0); Chloride 101 mmol/L (98-107); Estimated GFR (African America >60 (>=60); Estimated GFR (Non-African Ame >60 (>=60); Globulin 3.9 g/dL; Glucose 84 mg/dL (74-106); Potassium 3.8 mmol/L (3.5-5.1); Sodium 139 mmol/L (136-145); Total Protein 7.7 g/dL (6.4-8.2)
[2023-12-18] MEDS: ORPHENADRINE 60 MG/ 2 ML VIAL IV (11:01)
[2023-12-18] MEDS: PROCHLORPERAZINE 10 MG/2 ML VIAL IV (11:01)
== END 2023-12-18 11:58 | disposition home or self-care (01) ==
PROVIDERS: Emergency Provider Emergency Medicine; PCP Physician Assistant
DX: R11.2 Nausea with vomiting, unspecified (principal); R19.7 Diarrhea, unspecified; R51.9 Headache, unspecified; F17.210 Nicotine dependence, cigarettes, uncomplicated
CPT/HCPCS: 36415; 80053; 81001; 83690; 84703; 85025; 96361; 96374; 96375; 99284; J0780; J2360; J2405

== ENCOUNTER 2024-06-16 11:00 | Emergency (ER) | payer OTHER, SELFPAY ==
[2024-06-16 11:04] VITALS: BP 106/80; PULSE 83; TEMP 36.9; O2SAT 97; BMI 28.9
--- OUTSIDE RECORDS SUMMARY | 2024-06-16 11:19 | XMS_ITS | CCD ---
Author Organization [facility] Care Team Providers Care Cryogenic Transport Driver Name Role Phone ARGUELLOJAGDISHOVAN Unavailable Unavailable Wandy Dorado Primary Care Physician None, No PCP Unavailable Unavailable Unavailable Unavailable DO Shauna Atkinson Primary Care Provider DO Martinez Kumar Emergency Provider [phone] [facility] Payton Brooks Emergency Provider [phone] DO Joseph Wallace Emergency Provider DR GIOVANA GILMORE Admitting Unavailabl e MANDO, DR GIOVANA Kirby [...] Dumont Consulting Unavailable VIDAL BASS Consulting Unavailable MISC, DR ISRAEL Primary Care Unavailable BORIS RODRIGUEZ Admitting Unavailable BORIS RODRIGUEZ Attending Unavailable BORIS RODRIGUEZ Consulting Unavailable Sheri Escudero Consulting Unavailable MISC, DR ISRAEL Primary Care Unavailable VIDAL BASS Admitting Unavailable VIDAL BASS Attending Unavailable VIDAL BASS Consulting Unavailable DO Shauna Atkinson Primary Care Provider [phone] MD Alton Boss Emergency Provider Cheng Cruz Unavailable Kayley Mo Unavailable Alton Boss Attending Unavailable Shauna Atkinson Primary Care Unavailable Alton Boss Admitting Unavailable Joseph Wallace Admitting Unavailable Joseph Wallace Attending Unavailable Shauna Atkinson Primary Care Unavailable Shauna Atkinson DO Primary Care Provider TIBURCIO CRAWFORD Attending Unavailable SHAUNA ATKINSON Referring Unavailable SHAUNA ATKINSON Primary Care Unavailable TIBURCIO CRAWFORD Referring Unavailable SHAUNA ATKINSON Primary Care Unavailable TIBURCIO CRAWFORD Attending Unavailable TIBURCIO CRAWFORD Referring Unavailable SHAUNA ATKINSON Primary Care Unavailable Allergies Allergy Classification Reported Allergen(s) Allergy Type Date of Onset Reaction(s) Facility (2 sources) Penicillin; Translations: [penicillin] Drug Allergy Anaphylaxis (disorder) [facility] (1 source) Pollen Drug allergy Respiratory function (observable entity) [facility] (5 sources) Penicillins [employer]; Translations: [Penicillins [employer]] Allergy to drug (finding) [facility] Work Phone: (12 sources) Ketorolac; Translations: [ketorolac] Drug Allergy 04-29-20 hives, Anaphylaxis [facility] (11 sources) Penicillins; Translations: [Penicillins] Propensity to adverse reactions 01-22-20 Anaphylaxis [facility] (15 sources) traMADol; Translations: [tramadol] Drug Allergy 04-29-20 Anaphylaxis [facility] (1 source) Ketorolac Drug Allergy [facility] Repository (3 sources) penicillAMINE Drug Allergy Unknown [employer] Other (1 source) penicillAMINE Drug Allergy 12-01-19 [facility] Repository (6 sources) Adhesive agent; Translations: [ADHESIVE] Propensity to adverse reactions to drug 01-29-20 Other (See Comments) [employer] (6 sources) Pollen; Translations: [POLLEN EXTRACTS] Propensity to adverse reactions to drug 04-07-20 [employer] Medications Current Medications Medication Drug Class(es) Dates Sig (Normalized) Sig (Original) acetaminophen 325 mg / HYDROcodone bitartrate 5 mg oral tablet (1 source) Opioid Agonist Start: 09-24-2023 take 1 tablet by mouth every four hours Hydrocodone-Aceta minophen Active 1 TAB PO Q4H 3 2 September 24, 2023 Start: 09-24-2023 take 1 tablet by marlene th every four hours Hydrocodone-Acetaminophen Active 1 TAB P O Q4H 3 2 September 24, 2023 [id number] actuat albuterol 0.09 mg/actuat metered dose inhaler (7 sources) beta2-Adrenergic Agonist Start: 12-01-2023 take 2 puff(s) by inhalation every four to six hours as needed Albuterol Sulfate HFA 108 (90 Base) MCG/ACT 2 puffs as needed Inhalation every 4-6 hours for 14 days Nov, Active Start: 08-20-2023 take 2 puff(s) by in halation every six hours as needed for wheezing albuterol (PROVENTIL HFA;VENTOLIN HFA) 90 mcg/actuation inhaler Indications: Asthma, unspecified asthma severity, unspecified whether complicated, unspecified whether persistent Inhale 2 puffs every 6 (six) hours as needed for wheezing. 18 g 1 08/20/2023 Active Start: 01-09-2023 Albuterol Sulf ate Active 2 PUFF INHALATION MORNING January 09, 2023 12:00am dextromethorphan hydrobromide 15 mg / guaiFENesin 400 mg / pseudoephedrine hydrochloride 60 mg oral tablet (1 source) alpha-Adrenergic Agonist, Uncompetitive Q-hajnfq-K-aspartate Receptor Antagonist, Sigma-1 Agonist Start: 12-01-2023 take 4 tablets by mouth every twenty-four hours as needed Capmist DM 60-15-400 MG as needed Orally every 4-6 hours as needed, max 4 tablets in 24 hours for 5 days Nov, Active docusate sodium 100 mg oral capsule (4 sources) Start: 02-18-2023 take 1 capsule by mouth in the morning, then take 1 capsule by mouth at bedtime docusate sodium (COLACE) 100 mg capsule Take 1 capsule (100 mg total) by mouth in the morning and 1 capsule (100 mg total) before bedtime. 30 capsule 0 02/18/2023 Active ibuprofen 800 mg oral tablet (17 sources) Nonsteroidal Anti-inflammatory Drug Start: 01-19-2024 take 1 tablet by mouth every eight hours as needed for pain ibuprofen (MOTRIN) 800 mg tablet Indications: Pelvic pain , Dysmenorrhea Take 1 tablet (800 mg total) by mouth every 8 (eight) hours as needed for pain. 30 tablet 2 01/19/2024 Active Start: 10-14-2023 End: 01-13-2024 take 1 tablet by mouth every eight hours as needed for pain ibuprofen (MOTRIN) 800 mg tablet Indications: Pelvic pain , Dysmenorrhea Take 1 tablet (800 mg total) by mouth every 8 (eight) hours as needed for pain. 30 tablet 2 10/14/2023 01/13/2024 Discontinued (Reorder) Start: 01-08-2022 End: 01-12-2022 take 600 mg by mouth every six hours Ibuprofen Discontinued 600 MG PO Q6H January 08, 2022 12:00am January 12, 2022 9:29am Start: 02-09-2020 take 1 tablet by marlene th three times daily at mealtime as needed Ibuprofen 800 MG 1 tablet with food or milk as needed Orally Three times a day for 30 days Jan, Not-Taking/PRN Inhalational Spacing Device (Breatherite Mdi Spacer) spacer (2 sources) Start: 01-09-2023 Inhalational Spacing Device (Breatherite Mdi Spacer) spacer Active EACH MISCELLANE January 09, 2023 12:00am Marijuana (2 sources) Start: 01-09-2023 Marijuana Acti ve January 09, 2023 12:00am [place] (No Known Home Meds) (1 source) Start: 10-13-2022 [place] (No Kn own Home Meds) Active October 13, 2022 12:00am ondansetron 4 mg oral tablet (9 sources) Serotonin-3 Receptor Antagonist Start: 01-20-2023 take 1 tablet by mouth once daily as needed for nausea ondansetron (ZOFRAN) 4 mg tablet Indications: Cyst of left ovary , Nausea Take 1 tablet (4 mg total) by mouth daily as needed for nausea or vomiting. 30 tablet 1 01/20/2023 Active Start: 01-09-2023 take 4 mg by mouth [...] out, # 84 tab(s), Refills(s) 1, Pharmacy: [id number], 150, cm, 04/29/21 15:53:00 EDT, [...] Discontinued 1 T AB PO Q6H 14 3 January 12, 2022 January 16, 2022 9:47am [...] Start: 04-10-2022 take 1 capsule by mo [facility] once daily Doxycycline Hyclate 100 MG Oral [...] 1 tablet Orally Once a day Not-Taking ketorolac tromethamine 10 mg oral tablet (3 [...] Date Documented Da te Episodic/Chronic Abdominal pain (12 sources) Unspecified abdominal pain; Translations: [Left lower [...] [Animl-ridr injured by fall fr horse in [facility], init] Onset: 09-30-2018 Headache; including migraine (1 [...] Translations: [NONSPEC MESENTERIC LYMPHADENITIS] Onset: 01-12-2023 Episodic Menstrual disorders (7 sources) Dysmenorrhea; Translations: [Dysmenorrhea, unspecified] Onset: 12-10-2022 01-13-2024 Chronic Nonspecific chest pain (1 source) Chest pain; Translations: [Chest pain, unspecified] Onset: 02-18-2022 Episodic Other aftercare (1 source) Other foster parent (current) drug therapy; Translations: [OTH PRISON CURRENT DRUG THERAPY] Onset: 02-24-2023 Episodic Other aftercare (1 source) Patient encounter status; Translations: [Other foster parent (current) drug therapy] 01-19-2024 Episodic Other bone disease and musculoskeletal deformities [...] in right shoulder] Onset: 09-30-2018 Episodic Other nutritional; endocrine; and metabolic disorders (4 sources) Obese class I; Translations: [Obesity, unspecified] Onset: 12-10-2022 12-10-2022 Chronic Other skin disorders (5 sources) Epidermoid cyst; Translations: [Epidermal cyst] Onset: 02-18-2022 Episodic Other skin disorders (5 sources) Infection of sebaceous cyst; Translations: [Sebaceous cyst] Episodic Skin and subcutaneous tissue infections (8 sources) Abscess; Translations: [Cutaneous abscess, unspecified] 01-28-2022 Episodic Spondylosis; intervertebral disc disorders; other back problems (2 sources) Cervicalgia; Translations: [Cervicalgia] Onset: 09-30-2018 Episodic Sprains and strains (2 sources) Sprain of knee; Translations: [Sprain of unspecified site of left knee, initial encounter] Onset: 09-24-2023 09-24-2023 Episodic Substance-related disorders (5 sources) Nicotine dependence, cigarettes, uncomplicated; Translations: [Smoker] Onset: 12-10-2022 12-10-2022 Chronic Superficial injury; contusion (1 source) Contusion of right hand, initial encounter; Translations: [CONTUSION RIGHT HAND INITIAL ENC] Onset: 12-08-2022 Episodic Unclassified (2 sources) COUGH, UNSPECIFIED; Translations: [COUGH, UNSPECIFIED] Onset: 10-13-2022 Unclassified (1 source) Pain in left knee; Translations: [Pain in left knee] Onset: 09-24-2023 Unclassified (1 source) Unspecified ovarian cyst, left side; Translations: [Unspecified ovarian cyst, left side] Onset: 01-09-2023 Unclassified (1 source) Annual Exam Onset: 01-13-2024 Unclassified (1 source) Gynecologic Exam Onset: 01-13-2024 Viral infection (3 sources) Disease caused by 2019-nCoV; Translations: [COVID-19] 10-13-2022 Episodic Past or Other Problems Problem Classification Problem Date Documented Da te Episodic/Chronic Influenza (1 source) Influenza due to unidentified influenza virus with other respiratory manifestations; Translations: [FLU D/T UNIDENT FLU VIR RESP MANIF] Onset: 10-13-2022 Episodic Mood disorders (4 sources) Mood disorders Onset: 01-13-2024 01-13-2024 Ovarian cyst (11 sources) Cyst of ovary; Translations: [Unspecified ovarian cyst, unspecified side] Onset: 01-06-2023 01-09-2023 Episodic Residual codes; unclassified (4 sources) Family history of breast cancer; Translations: [Family history of malignant neoplasm of breast] Onset: 12-10-2022 12-10-2022 Episodic Unclassified (1 source) COUGH, UNSPECIFIED; Translations: [COUGH, UNSPECIFIED] Onset: 10-11-2022 Unclassified (1 source) Acute cough R05.1 Unclassified (4 sources) Onset: 12-10-2022 12-10-2022 Results Test Name Value Interpretation Reference Range Facility US PELVIC WITH TRANSVAGINALo n 01-21-2024 US PELVIC WITH TRANSVAGINAL US PELVIC WITH TRANSVAGINAL HISTORY: Pelvic pain COMPARISON: 12/12/2022 TECHNIQUE: Multiplanar transabdominal and transvaginal ultrasonography of the pelvis using grayscale imaging, supplemented by color Doppler as needed. FINDINGS: The uterus measures 7.5 x 2.6 x 3.9 cm. Normal contour without focal lesions. Endometrial stripe measures 6 mm in thickness which is normal for menstruating female.The right ovary measures 4.3 x 3.1 x 2.8 cm.The left ovary measures 3.8 x 2.6 x 2.5 cm. No adnexal masses. Color Doppler demonstrates arterial and venous flow in both ovaries The bladder is within normal limits. No fluid in the cul-de-sac.. IMPRESSION: Unremarkable pelvic echo.. Finalized by Jodi Parmar MD on 01/20/2024 11:58 PM Normal [facility] Cytologyon 01-13-2024 Cytology Normal [facility] Comment on above: Result Comment: [facility] [address] [place] [address] Gynecologic Cytology Consultation Patient Name:SOFIA ANDREWS:2000 (Age: 23)Gender:FTaken:4Reported:01/27/2024hysician(s):Tiburcio Crawford DO ([phone])Copy To: Rec. #:[id number]: #[id number] Final Cytologic Interpretation ThinPrep Pap Test (Cervical): Satisfactory for evaluation. A transformation zone component is present. NEGATIVE FOR INTRAEPITHELIAL LESION OR MALIGNANCY. jja/01/27/2024 Interpretation performed at [facility], [address] [place] [address], License number: [id number]. Electronically Signed Out By CELSO Major(ASCP) Date of Last Menstrual Period: 01/08/24 Other Clinical Conditions: Z01.419 Group Home Counselor exam wo/abn findings Source of Specimen ThinPrep Pap Test (Cervical) Thin Prep Pap (NURSE LDR) Fee Code(s): G0145 Outside Recordson 12-02-2023 Outside Records [id number]#1[facility] COVID + FLU Quick Testingon 12-01-2023 SARS-CoV-2 (COVID-19) RNA HUMBERTO+probe Ql (Unsp spec) Negative [facility] [employer] Other COVID + FLU Quick Testing Negative [facility] [employer] Other Outside Recordson 10-01-2023 Outside Records [id number]#1.[facility] XR knee LT 4V*on 09-24-2023 XR knee LT 4V* [facility] [place] [address] XRay Report Signed Patient: Sofia Andrews MR#: [id number] : 2000 Acct:[id number] Age/Sex: 22 / F ADM Date: 09/24/23 Loc: ER Room: Type: [facility] ER Attending Dr: Copies to: Alton Boss [...] Curiel Jr., D.OHawk09/24/2023 9:27 AM Dictation Location: [place] [address] Transcribed By: [facility] 09/24/23926 Dictated By: Pablo Curiel Jr DO 09/24/23926 Signed By: 09/24/23926 [facility] Outside Recordson 02-19-2023 Outside Records [id number]#1.00OTGT IFF [facility] Outside Records [id number]#1.00OTGT IFF [facility] Outside Records [id number]#1.00OTGT IFF [facility] Outside Recordson 01-12-2023 Outside Records [id number]#1.00OTGTI FF [facility] Activated partial thrombopla stin time (aPTT) in platelet poor plasma by coagulation aOrdered By: Joseph Wallace on 01-09-2023 aPTT Coag (PPP) [Time] 30.5 s 25.1-36.5 [facility] Alanine aminotransferase [En zymatic activity/volume] in Serum or PlasmaOrdered By: Joseph Wallace on 01-09-2023 ALT [Catalytic activity/Vol] 16 U/L 7-52 [facility] Albumin [Mass/volume] in Ser um or Plasma by Bromocresol green (BCG) dye binding methoOrdered By: Joseph Wallace on 01-09-2023 Albumin BCG dye [Mass/Vol] 4.4 g/dL 3.5-5.7 [facility] Alkaline phosphatase [Enzyma tic activity/volume] in Serum or PlasmaOrdered By: Joseph Wallace on 01-09-2023 ALP [Catalytic activity/Vol] 77 U/L 34-104 [facility] Amphetamine Screen Ql (U)Ord ered By: Joseph Wallace on 01-09-2023 Amphetamines Ql (U) Negative Negative [facility] Aspartate aminotransferase [ Enzymatic activity/volume] in Serum or PlasmaOrdered By: Joseph Wallace on 01-09-2023 AST [Catalytic activity/Vol] 16 U/L 13-39 [facility] Automated erythrocytes count in urine sediment (number/area)Ordered By: Joseph Wallace on 01-09-2023 RBC Auto (Urine sed) [#/Area] 10-19 [HPF] 0-4 [facility] Automated leukocytes count i n urine sediment (number/area)Ordered By: Joseph Wallace on 01-09-2023 WBC Auto (Urine sed) [#/Area] 0-1 [HPF] 0-4 [facility] Barbiturates [Presence] in U rine by Screen methodOrdered By: Joseph Wallace on 01-09-2023 Barbiturates Screen Ql (U) Negative Negative [facility] Basic Metabolic Panelon 12-31 Anion gap [Moles/Vol] 12.6 mmol/L Normal 6.0-15.0 [facility] Comment on above: Performed By: #### P T, HEPATIC, PTT, BMP, CBC, LIPASE #### [facility] [place] [facility] [address] Calcium [Mass/Vol] 8.9 mg/dL Normal 8.6-10.[address] [facility] Comment on above: Performed By: #### P T, HEPATIC, PTT, BMP, CBC, LIPASE #### [facility] [place] [facility] [address] [place] [address] [place] Chloride [Moles/Vol] 107 mmol/L Normal 98-107 [facility] Comment on above: Performed By: #### P T, HEPATIC, PTT, BMP, CBC, LIPASE #### [facility] [place] [facility] [address] [place] [address] [place] CO2 [Moles/Vol] 25.3 mmol/L Normal 21.0-31.[address] [facility] Comment on above: Performed By: #### P T, HEPATIC, PTT, BMP, CBC, LIPASE #### [facility] [address] Creatinine [Mass/Vol] 0.57 mg/dL Low 0.60-1.20 [facility] Comment on above: Performed By: #### P T, HEPATIC, PTT, BMP, CBC, LIPASE #### [facility] [address] [place] [address] [place] Creatinine Clr Calc Pharmacy 141.51 Normal [facility] Comment on above: Performed By: #### P T, HEPATIC, PTT, BMP, CBC, LIPASE #### [facility] [address] [place] [address] [place] GFR/1.73 sq M.predicted MDRD (S/P/Bld) [Vol rate/Area] mL/min/{1.73_m2} Normal [facility] Comment on above: Performed By: #### P T, HEPATIC, PTT, BMP, CBC, LIPASE #### [address] Glucose [Mass/Vol] 85 mg/dL Normal 74-[address] [facility] Comment on above: Result Comment: [facility] Glucose Reference Range is dependent on time and content of last meal. Glucose of more than 200 mg/dL in a nonstressed, ambulatory subject supports the diagnosis of Diabetes Mellitus. ADA recommended reference range Performed By: #### P T, HEPATIC, PTT, BMP, CBC, LIPASE #### [address] Potassium [Moles/Vol] 3.9 mmol/L Normal 3.5-5.1 [facility] Comment on above: Performed By: #### P T, HEPATIC, PTT, BMP, CBC, LIPASE #### [facility] [address] [place] [address] [place] Sodium [Moles/Vol] 141 mmol/L Normal 136-[address] [facility] Comment on above: Performed By: #### P T, HEPATIC, PTT, BMP, CBC, LIPASE #### [address] Urea nitrogen [Mass/Vol] 12 mg/dL Normal 7-25 [facility] Comment on above: Performed By: #### P T, HEPATIC, PTT, BMP, CBC, LIPASE #### [facility] [address] Basophils Auto (Bld) [#/Vol] Ordered By: Joseph Wallace on 01-09-2023 Basophils (Bld) [#/Vol] 0.1 10*3/uL 0.0-0.2 [facility] Basophils/100 WBC Auto (Bld) Ordered By: Joseph Wallace on 01-09-2023 Basophils/100 WBC (Bld) 0.6 % . [facility] Benzodiazepines Screen Ql (U )Ordered By: Joseph Wallace on 01-09-2023 Benzodiazepines Ql (U) Positive Negative [facility] Benzoylecgonine [Presence] i n Urine by Screen methodOrdered By: Joseph Wallace on 01-09-2023 Benzoylecgonine Screen Ql (U) Positive Negative [facility] Bilirubin Test strip Ql (U)O rdered By: Joseph Wallace on 01-09-2023 Bilirubin Ql (U) Negative Negative [facility] Bilirubin.direct [Mass/volum e] in Serum or PlasmaOrdered By: Joseph Wallace on 01-09-2023 Bilirubin.direct [Mass/Vol] 0.10 mg/dL 0.03-0.18 [facility] Bilirubin.total [Mass/volume ] in Serum or PlasmaOrdered By: Joseph Wallace on 01-09-2023 Bilirubin [Mass/Vol] 0.5 mg/dL 0.3-1.0 [facility] CBC AUTO DIFFon 01-09-2023 BASO # 0.1 103/ul Normal 0.0-0.1 [facility] Comment on above: Performed By: #### C BC #### [facility] Laboratory [address] [place] [address] [address] Cristopher Godoy Basophils/100 WBC (Bld) 0.6 % Normal 0.2-2.0 [facility] Comment on above: Performed By: #### C BC #### [facility] [address] [place], [place] [address] Dr. Cristopher Godoy EO # 0.4 103/ul Normal 0.0-0.7 [facility] Comment on above: Performed By: #### C BC #### [facility] [address] [place] [address] Dr. Cristopher Godoy Eosinophils/100 WBC (Bld) 2.7 % Normal 0.9-7.0 [facility] Comment on above: Performed By: #### C BC #### [facility] [address] [place] [address] Dr. Cristopher Godoy Erythrocyte distribution width (RBC) [Ratio] 13.5 % Normal 11.0-15.0 [facility] Comment on above: Performed By: #### C BC #### [facility] [address] [place] [address] Dr. Cristopher Godoy Hematocrit (Bld) [Volume fraction] 42.2 % Normal 36.0-48.0 [facility] Comment on above: Performed By: #### C BC #### [facility] [address] [place] [address] Dr. Cristopher Godoy Hemoglobin (Bld) [Mass/Vol] 14.1 g/dL Normal 12.0-16.0 [facility] Comment on above: Performed By: #### C BC #### [facility] [address] [place] [address] Dr. Cristopher Godoy IG # 0.06 10e3/ul Critically high 0.00-0.03 [facility] Comment on above: Performed By: #### C BC #### [facility] [address] [place] [address] Dr. Cristopher Godoy IG % 0.4 % Normal 0.0-0.5 [facility] Comment on above: Performed By: #### C BC #### [facility] [address] [place] [address] Dr. Cristopher Godoy LYMPH # 3.8 103/ul Normal 1.2-3.8 [facility] Comment on above: Performed By: #### C BC #### [facility] [address] [place] [address] Dr. Cristopher Godoy Lymphocytes/100 WBC (Bld) 24.7 % Normal 20.5-60.0 [facility] Comment on above: Performed By: #### C BC #### [facility] [address] [place] [address] Dr. Cristopher Godoy MANUAL DIFF REQ NO Normal [facility] Comment on above: Performed By: #### C BC #### [facility] [address] [place] [address] Dr. Cristopher Godoy MCH (RBC) [Entitic mass] 30.5 pg Normal 26.7-34.0 [facility] Comment on above: Performed By: #### C BC #### [facility] [address] [place] [address] Dr. Cristopher Godoy MCHC (RBC) [Mass/Vol] 33.4 g/dL Normal 29.9-35.2 [facility] Comment on above: Performed By: #### C BC #### [facility] [address] [place] [address] Dr. Cristopher Godoy MCV (RBC) [Entitic vol] 91.3 fL Normal 81.0-99.0 [facility] Comment on above: Performed By: #### C BC #### [facility] [address] [place] [address] Dr. Cristopher Godoy MONO # 0.9 103/ul Critically high 0.3-0.8 [facility] Comment on above: Performed By: #### C BC #### [facility] [address] [place] [address] Dr. Cristopher Godoy Monocytes/100 WBC (Bld) 5.9 % Normal 1.7-12.0 [facility] Comment on above: Performed By: #### C BC #### [facility] [address] [place] [address] Dr. Cristopher Godoy NEUT # 10.0 103/ul Critically high 1.4-6.5 [facility] Comment on above: Performed By: #### C BC #### [facility] [facility] [address] [place] [address] Dr. Cristopher Godoy Neutrophils/100 WBC (Bld) 65.7 % Normal 43.0-75.0 [facility] Comment on above: Performed By: #### C BC #### [facility] [address] [place], [place] [address] Dr. Cristopher Godoy Platelet mean volume (Bld) [Entitic vol] 10.8 fL Normal 9.5-13.5 [facility] Comment on above: Performed By: #### C BC #### [facility] [address] [place] [address] Dr. Cristopher Godoy PLT 338 103/ul Normal 150-450 [facility] Comment on above: Performed By: #### C BC #### [facility] [address] [place] [address] [address] Cristopher Godoy RBC 4.62 106/ul Normal 4.20-5.40 [facility] Comment on above: Performed By: #### C BC #### [facility] [address] [place] [address] Dr. Cristopher Godoy WBC 15.3 103/ul Critically high 4.0-11.0 [facility] Comment on above: Performed By: #### C BC #### [facility] [address] [place] [address] ABD/PELV W CONon [...] (23 Hounsfield units). Electronically authenticated by: SHERI ESCUDERO Date: 2023-01-09 04:41 Normal [facility] Calcium [Mass/volume] in Ser um or PlasmaOrdered By: Joseph Wallace on 01-09-2023 Calcium [Mass/Vol] 8.9 mg/dL 8.6-10.[address] [facility] Cannabinoids [Presence] in U rine by Screen methodOrdered By: Joseph Wallace on 01-09-2023 Cannabinoids Screen Ql (U) Positive Negative [facility] Comment on above: These are unconfirme d results and should not be used for legal purposes. Drug Cut-Off Concentration: AMPH 1000 ng/mL ISAURO 200 ng/mL YULY 200 ng/mL COCM 300 ng/mL OP 300 ng/mL PCP 25 ng/mL THC 20 ng/mL Carbon dioxide, total [Moles /volume] in Serum or PlasmaOrdered By: Joseph Wallace on 01-09-2023 CO2 [Moles/Vol] 25.3 mmol/L 21.0-31.[address] [facility] Chloride [Moles/volume] in S yudy or PlasmaOrdered By: Joseph Wallace on 01-09-2023 Chloride [Moles/Vol] 107 mmol/L 98-107 [facility] Color Auto (U)Ordered By: Janusz Wallace on 01-09-2023 Color (U) Yellow Yellow [facility] Complete Blood Count Auto Di ffon 01-09-2023 Basophils (Bld) [#/Vol] 0.1 10*3/uL Normal 0.0-0.2 [facility] Comment on above: Result Comment: PERF ORMED BY: [place] [address] PATHOLOGIST LINOTYPIST LUCRECIA NG M.D. Performed By: #### P T, HEPATIC, PTT, BMP, CBC, LIPASE #### [address] Basophils/100 WBC (Bld) 0.6 % Normal . [facility] Comment on above: Performed By: #### P T, HEPATIC, PTT, BMP, CBC, LIPASE #### [address] Eosinophils (Bld) [#/Vol] 0.6 10*3/uL High 0.0-0.45 [facility] Comment on above: Performed By: #### P T, HEPATIC, PTT, BMP, CBC, LIPASE #### [address] Eosinophils/100 WBC (Bld) 5.4 % Normal . [facility] Comment on above: Performed By: #### P T, HEPATIC, PTT, BMP, CBC, LIPASE #### [address] Erythrocyte distribution width (RBC) [Ratio] 14.2 % Normal 11.9-15.3 [facility] Comment on above: Performed By: #### P T, HEPATIC, PTT, BMP, CBC, LIPASE #### [address] Hematocrit (Bld) [Volume fraction] 43.2 % Normal 34.0-46.4 [facility] Comment on above: Performed By: #### P T, HEPATIC, PTT, BMP, CBC, LIPASE #### [address] Hemoglobin (Bld) [Mass/Vol] 14.1 g/dL Normal 11.8-15.4 [facility] Comment on above: Performed By: #### P T, HEPATIC, PTT, BMP, CBC, LIPASE #### [address] Lymphocytes (Bld) [#/Vol] 3.3 10*3/uL Normal 1.00-4.8 [facility] Comment on above: Performed By: #### P T, HEPATIC, PTT, BMP, CBC, LIPASE #### [address] Lymphocytes/100 WBC (Bld) 28.7 % Normal . [facility] Comment on above: Performed By: #### P T, HEPATIC, PTT, BMP, CBC, LIPASE #### [address] MCH (RBC) [Entitic mass] 30.1 pg Normal 24.7-34.3 [facility] Comment on above: Performed By: #### P T, HEPATIC, PTT, BMP, CBC, LIPASE #### [address] MCV (RBC) [Entitic vol] 92.6 fL Normal 80-100 [facility] Comment on above: Performed By: #### P T, HEPATIC, PTT, BMP, CBC, LIPASE #### [address] Mean Corpuscular HGB Conc 32.6 g/dL Normal 32.0-35.0 [facility] Comment on above: Performed By: #### P T, HEPATIC, PTT, BMP, CBC, LIPASE #### [address] Monocytes (Bld) [#/Vol] 0.8 10*3/uL Normal 0.0-0.8 [facility] Comment on above: Performed By: #### P T, HEPATIC, PTT, BMP, CBC, LIPASE #### [address] Monocytes/100 WBC (Bld) 16.00 % Normal 0.00-20.00 [facility] Comment on above: Performed By: #### P T, HEPATIC, PTT, BMP, CBC, LIPASE #### [address] Monocytes/100 WBC (Bld) 6.8 % Normal . [facility] Comment on above: Performed By: #### P T, HEPATIC, PTT, BMP, CBC, LIPASE #### [address] Neutrophils (Bld) [#/Vol] 6.7 10*3/uL Normal 1.8-7.7 [facility] Comment on above: Performed By: #### P T, HEPATIC, PTT, BMP, CBC, LIPASE #### [address] Neutrophils/100 WBC (Bld) 58.5 % Normal . [facility] Comment on above: Performed By: #### P T, HEPATIC, PTT, BMP, CBC, LIPASE #### [address] NRBC% 0.1 /100{WBC} Normal 0-0.5 [facility] Comment on above: Performed By: #### P T, HEPATIC, PTT, BMP, CBC, LIPASE #### [address] Platelet mean volume (Bld) [Entitic vol] 9.8 fL Normal 6.3-10.7 [facility] Comment on above: Performed By: #### P T, HEPATIC, PTT, BMP, CBC, LIPASE #### [place] [address] [place] Platelets (Bld) [#/Vol] 314 10*3/uL Normal 150-450 [facility] Comment on above: Performed By: #### P T, HEPATIC, PTT, BMP, CBC, LIPASE #### [place] [address] [place] RBC (Bld) [#/Vol] 4.67 10*6/uL Normal 3.60-5.00 [facility] Comment on above: Performed By: #### P T, HEPATIC, PTT, BMP, CBC, LIPASE #### [facility] [place] [facility] [address] [place] [address] [place] WBC (Bld) [#/Vol] 11.5 10*3/uL Normal 3.8-11.6 [facility] Comment on above: Performed By: #### P T, HEPATIC, PTT, BMP, CBC, LIPASE #### [facility] [place] [facility] [address] Creatinine [Mass/volume] in Serum or PlasmaOrdered By: Joseph Wallace on 01-09-2023 Creatinine [Mass/Vol] 0.57 mg/dL 0.60-1.20 [facility] Dipstick and Microscopicon 0 01-09-2023 Appearance (U) Clear Normal Clear [facility] Comment on above: Order Comment: Name Collection Type:: Clean-Voided Midstream Performed By: #### U RDS, ADDONUAPLUS, UHCG #### [facility] [place] [facility] [address] [place] [address] [place] Bacteria,Urine None Seen Normal None Seen [facility] Comment on above: Order Comment: Name Collection Type:: Clean-Voided Midstream Performed By: #### U RDS, ADDONUAPLUS, UHCG #### [facility] [place] [facility] [address] [place] [address] [place] Bilirubin,Urine Negative Normal Negative [facility] Comment on above: Order Comment: Name Collection Type:: Clean-Voided Midstream Performed By: #### U RDS, ADDONUAPLUS, UHCG #### [facility] [place] [facility] [address] [place] [address] [place] Color (U) Yellow Normal Yellow [facility] Comment on above: Order Comment: Name Collection Type:: Clean-Voided Midstream Performed By: #### U RDS, ADDONUAPLUS, UHCG #### [facility] [place] [facility] [address] [place] [address] [place] Glucose Ql (U) Normal Normal Normal [facility] Comment on above: Order Comment: Name Collection Type:: Clean-Voided Midstream Performed By: #### U RDS, ADDONUAPLUS, UHCG #### [facility] [place] [facility] [address] [place] [address] [place] Hyaline Casts,Urine None Seen Normal 0-8 [facility] Comment on above: Order Comment: Name Collection Type:: Clean-Voided Midstream Performed By: #### U RDS, ADDONUAPLUS, UHCG #### [facility] [place] [facility] [address] [place] [address] Ketones Ql (U) Negative Normal Negative [facility] Comment on above: Order Comment: Name Collection Type:: Clean-Voided Midstream Performed By: #### U RDS, ADDONUAPLUS, UHCG #### [facility] [place] [facility] [address] [place] [address] Leukocyte esterase Test strip Ql (U) Negative Normal Negative [facility] Comment on above: Order Comment: Name Collection Type:: Clean-Voided Midstream Performed By: #### U RDS, ADDONUAPLUS, UHCG #### [facility] [place] [facility] [address] [place] [address] [place] Nitrite,Urine Negative Normal Negative [facility] Comment on above: Order Comment: Name Collection Type:: Clean-Voided Midstream Performed By: #### U RDS, ADDONUAPLUS, UHCG #### [facility] [place] [facility] [address] [place] [address] [place] Occult Blood,Urine 1+ High Negative [facility] Comment on above: Order Comment: Name Collection Type:: Clean-Voided Midstream Performed By: #### U RDS, ADDONUAPLUS, UHCG #### [facility] [place] [facility] [address] [place] [address] [place] pH (U) 5.5 [pH] Normal 5.0-9.0 [facility] Comment on above: Order Comment: Name Collection Type:: Clean-Voided Midstream Performed By: #### U RDS, ADDONUAPLUS, UHCG #### [facility] [place] [facility] [address] [place] [address] [place] Protein,Urine Negative Normal Negative [facility] Comment on above: Order Comment: Name Collection Type:: Clean-Voided Midstream Performed By: #### U RDS, ADDONUAPLUS, UHCG #### [address] RBC,Urine 10-19 High 0-4 [facility] Comment on above: Order Comment: Name Collection Type:: Clean-Voided Midstream Performed By: #### U RDS, ADDONUAPLUS, UHCG #### [address] Specificy [place],Urine 1.027 Normal 1.001-1.03 0 [facility] Comment on above: Order Comment: Name Collection Type:: Clean-Voided Midstream Performed By: #### U RDS, ADDONUAPLUS, UHCG #### [address] Squamous Epithelial Cell,Urine 0-1 Normal 0-2 [facility] Comment on above: Order Comment: Name Collection Type:: Clean-Voided Midstream Performed By: #### U RDS, ADDONUAPLUS, UHCG #### [address] Urobilinogen,Urine Normal Normal Normal [facility] Comment on above: Order Comment: Name Collection Type:: Clean-Voided Midstream Performed By: #### U RDS, ADDONUAPLUS, UHCG #### [address] WBC LM.HPF (Urine sed) [#/Area] 0 /[HPF] Normal 0-4 [facility] Comment on above: Order Comment: Name Collection Type:: Clean-Voided Midstream Performed By: #### U RDS, ADDONUAPLUS, UHCG #### [place] [address] [place] Drug Screen,Urineon 01-10-20 23 Amphetamine Screen,Urine Negative Normal Negative [facility] Comment on above: Performed By: #### P T, HEPATIC, PTT, BMP, CBC, LIPASE #### [address] Barbiturate Screen,Urine Negative Normal Negative [facility] Comment on above: Performed By: #### P T, HEPATIC, PTT, BMP, CBC, LIPASE #### [address] Benzodiazepines Screen,Urine Positive High Negative [facility] Comment on above: Performed By: #### P T, HEPATIC, PTT, BMP, CBC, LIPASE #### [address] Cannabinoid Screen,Urine Positive High Negative [facility] Comment on above: Result Comment: Thes e are unconfirmed results and should not be used for legal purposes. Drug Cut-Off Concentration: AMPH 1000 ng/mL ISAURO 200 ng/mL YULY 200 ng/mL COCM 300 ng/mL OP 300 ng/mL PCP 25 ng/mL THC 20 ng/mL PERFORMED BY: [place] [address] PATHOLOGIST LINOTYPIST LUCRECIA NG M.D. Performed By: #### P T, HEPATIC, PTT, BMP, CBC, LIPASE #### [address] Cocaine Screen,Urine Positive High Negative [facility] Comment on above: Performed By: #### P T, HEPATIC, PTT, BMP, CBC, LIPASE #### [address] Opiate Screen,Urine Positive High Negative [facility] Comment on above: Performed By: #### P T, HEPATIC, PTT, BMP, CBC, LIPASE #### [address] Phencyclidine Screen,Urine Negative Normal Negative [facility] Comment on above: Performed By: #### P T, HEPATIC, PTT, BMP, CBC, LIPASE #### [address] ER URINE PROFILEon 3 Bilirubin Ql (U) Negative Normal NEGATIVE [facility] Comment on above: Performed By: #### VEENA LOPEZ #### [facility] [address] [place] [address] Dr. Cristopher Godoy Clarity (U) CLEAR Normal CLEAR [facility] Comment on above: Performed By: #### DEWAYNE LOPEZRO #### [facility] [address] [place] [address] Dr. Cristopher Godoy Color (U) LT. YELLOW Normal YELLOW [facility] Comment on above: Performed By: #### DEWAYNE LOPEZRO #### [facility] [address] [place] [address] Dr. Cristopher Godoy ERUAHD A micrscopic examina tion will be performed if indicated. Normal [facility] Comment on above: Performed By: #### DEWAYNE LOPEZRO #### [facility] [address] [place] [address] Dr. Cristopher Godoy Glucose Ql (U) Negative Normal NEGATIVE [facility] Comment on above: Performed By: #### DEWAYNE LOPEZRO #### [facility] [address] [place] [address] Dr. Cristopher Godoy Hemoglobin Ql (U) LARGE Abnormal NEGATIVE [facility] Comment on above: Performed By: #### DEWAYNE LOPEZRO #### [facility] [address] [place] [address] Dr. Cristopher Godoy Ketones Ql (U) Negative Normal NEGATIVE [facility] Comment on above: Performed By: #### DEWAYNE LOPEZRO #### [facility] [address] [place] [address] Dr. Cristopher Godoy LEUKOCYTES Negative Normal NEGATIVE [facility] Comment on above: Performed By: #### FATOU LOPEZICRO #### [facility] [address] [place] [address] Dr. Cristopher Godoy Nitrite Ql (U) Negative Normal NEGATIVE [facility] Comment on above: Performed By: #### FATOU LOPEZICRO #### [facility] [address] [place] [address] Dr. Cristopher Godoy pH (U) 6.0 [pH] Normal 5-9 [facility] Comment on above: Performed By: #### E RUR, UMICRO #### [facility] [address] [place] [address] [address] Cristopher Godoy SPEC GRAVITY 1.010 Normal 1.005-<=1. 025 [facility] Comment on above: Performed By: #### E RYNER, UMICRO #### [facility] [address] [address] [address] Cristopher Godoy UA PROTEIN Negative Normal NEGATIVE/ TRACE [facility] Comment on above: Performed By: #### E RYNER, UMICRO #### [facility] [address] [address] [address] Cristopher Godoy UR MICRO IND INDICATED Normal [facility] Comment on above: Performed By: #### E RYNER, UMICRO #### [facility] [address] [place] [address] Dr. Cristopher Godoy Urobilinogen Qn (U) 0.2 {Kevin'U}/dL Normal 0.2 - 1. 0 [facility] Comment on above: Performed By: #### Cecilia MICHELER, UMICRO #### [facility] [address] [place] [address] Dr. Cristopher Godoy Eosinophils Auto (Bld) [#/Vo l]Ordered By: Joseph Wallace on 01-09-2023 Eosinophils (Bld) [#/Vol] 0.6 10*3/uL 0.0-0.45 [facility] Eosinophils/100 WBC Auto (Bl d)Ordered By: Joseph Wallace on 01-09-2023 Eosinophils/100 WBC (Bld) 5.4 % . [facility] Erythrocyte distribution wid th Auto (RBC) [Ratio]Ordered By: Joseph Wallace on 01-09-2023 Erythrocyte distribution width (RBC) [Ratio] 14.2 % 11.9-15.3 [facility] Globulin Calc (S) [Mass/Vol] Ordered By: Joseph Wallace on 01-09-2023 Globulin (S) [Mass/Vol] 2.7 g/dL [facility] Glucose [Mass/volume] in Ser um or PlasmaOrdered By: Joseph Wallace on 01-09-2023 Glucose [Mass/Vol] 85 mg/dL 74-[address] [facility] Comment on above: ADA recommended refe rence rangeRandom Glucose Reference Range is dependent on time and content of last meal. Glucose of more than 200 mg/dL in a nonstressed, ambulatory subject supports the diagnosis of Diabetes Mellitus. HCG ( test) IA.rapi d Ql (U)Ordered By: Joseph Wallace on 01-09-2023 HCG ( test) Ql (U) Negative [facility] HCG,Urineon 01-09-2023 Beta HCG ( test) Ql (U) Negative Normal [facility] Comment on above: Order Comment: Name Collection Type:: Clean-Voided Midstream Result Comment: PERF ORMED BY: [place] [address] PATHOLOGIST LINOTYPIST LUCRECIA NG M.D. Performed By: #### U PJ, [facility] [place] #### [address] Hematocrit Auto (Bld) [Volum e fraction]Ordered By: Joseph Wallace on 01-09-2023 Hematocrit (Bld) [Volume fraction] 43.2 % 34.0-46.4 [facility] Hemoglobin [Mass/volume] in BloodOrdered By: Joseph Wallace on 01-09-2023 Hemoglobin (Bld) [Mass/Vol] 14.1 g/dL 11.8-15.4 [facility] Hepatic Panelon 01-09-2023 Albumin [Mass/Vol] 4.4 g/dL Normal 3.5-5.[address] [facility] Comment on above: Performed By: #### P T, HEPATIC, PTT, BMP, CBC, LIPASE #### [facility] [place] [facility] [address] Albumin/Globulin [Mass ratio] 1.6 {ratio} Normal [facility] Comment on above: Performed By: #### P T, HEPATIC, PTT, BMP, CBC, LIPASE #### [facility] [place] [facility] [address] ALP [Catalytic activity/Vol] 77 U/L Normal 34-104 [facility] Comment on above: Performed By: #### P T, HEPATIC, PTT, BMP, CBC, LIPASE #### [address] ALT [Catalytic activity/Vol] 16 U/L Normal 7-52 [facility] Comment on above: Performed By: #### P T, HEPATIC, PTT, BMP, CBC, LIPASE #### [address] AST [Catalytic activity/Vol] 16 U/L Normal 13-39 [facility] Comment on above: Performed By: #### P T, HEPATIC, PTT, BMP, CBC, LIPASE #### [address] Bilirubin [Mass/Vol] 0.5 mg/dL Normal 0.3-1.0 [facility] Comment on above: Performed By: #### P T, HEPATIC, PTT, BMP, CBC, LIPASE #### [address] Bilirubin,Indirect 0.4 mg/dL Normal [facility] Comment on above: Performed By: #### P T, HEPATIC, PTT, BMP, CBC, LIPASE #### [address] Bilirubin.indirect [Mass/Vol] 0.10 mg/dL Normal 0.03-0.18 [facility] Comment on above: Performed By: #### P T, HEPATIC, PTT, BMP, CBC, LIPASE #### [address] Globulin (S) [Mass/Vol] 2.7 g/dL Normal [facility] Comment on above: Performed By: #### P T, HEPATIC, PTT, BMP, CBC, LIPASE #### [address] Protein [Mass/Vol] 7.1 g/dL Normal 6.4-8.[address] [facility] Comment on above: Performed By: #### P T, HEPATIC, PTT, BMP, CBC, LIPASE #### [address] [place] [address] [facility] Ketones Auto test strip (U) [Mass/Vol]Ordered By: Joseph Wallace on 01-09-2023 Ketones (U) [Mass/Vol] Negative Negative [facility] - Chemistry and C hemistry - challengeOrdered By: Joseph Wallace on 01-09-2023 GFR/1.73 sq M.predicted MDRD (S/P/Bld) [Vol rate/Area] mL/min/{1.73_m2} [facility] - CoagulationOrde red By: Joseph Wallace on 01-09-2023 PT Coag (PPP) [Time] 10.4 s 9.0-12.9 [facility] - UrinalysisOrder ed By: Joseph Wallace on 01-09-2023 Hyaline casts LM Ql (Urine sed) None seen [LPF] 0-8 [facility] Leukocytes [#/volume] correc ifrah for nucleated erythrocytes in Blood by Automated counOrdered By: Joseph Wallace on 01-09-2023 WBC corrected for nucl RBC Auto (Bld) [#/Vol] 11.5 10*3/uL 3.8-11.6 [facility] Lipaseon 01-09-2023 Lipase [Catalytic activity/Vol] 12.0 U/L Normal 11.0-82.0 [facility] Comment on above: Result Comment: PERF ORMED BY: [place] [address] PATHOLOGIST LINOTYPIST LUCRECIA NG M.D. Performed By: #### P T, HEPATIC, PTT, BMP, CBC, LIPASE #### [facility] [place] [facility] [address] Lipase [Enzymatic activity/v olume] in Serum or PlasmaOrdered By: Joseph Wallace on 01-09-2023 Lipase [Catalytic activity/Vol] 12.0 U/L 11.0-82.0 [facility] Lymphocytes Auto (Bld) [#/Vo l]Ordered By: Joseph Wallace on 01-09-2023 Lymphocytes (Bld) [#/Vol] 3.3 10*3/uL 1.00-4.8 [facility] Lymphocytes/100 WBC Auto (Bl d)Ordered By: Joseph Wallace on 01-09-2023 Lymphocytes/100 WBC (Bld) 28.7 % . [facility] MCH Auto (RBC) [Entitic mass ]Ordered By: Joseph Wallace on 01-09-2023 MCH (RBC) [Entitic mass] 30.1 pg 24.7-34.3 [facility] MCHC Auto (RBC) [Mass/Vol]Or dered By: Joseph Wallace on 01-09-2023 MCHC (RBC) [Mass/Vol] 32.6 g/dL 32.0-35.0 [facility] MCV Auto (RBC) [Entitic vol] Ordered By: Joseph Wallace on 01-09-2023 MCV (RBC) [Entitic vol] 92.6 fL 80-100 [facility] Monocyte distribution width [Entitic volume] in Blood by AutomatedOrdered By: Joseph Wallace on 01-09-2023 Monocyte distribution width Auto (Bld) [Entitic vol] 16.00 % 0.00-20.00 [facility] Monocytes Auto (Bld) [#/Vol] Ordered By: Joseph Wallace on 01-09-2023 Monocytes (Bld) [#/Vol] 0.8 10*3/uL 0.0-0.8 [facility] Monocytes/100 WBC Auto (Bld) Ordered By: Joseph Wallace on 01-09-2023 Monocytes/100 WBC (Bld) 6.8 % . [facility] Neutrophils Auto (Bld) [#/Vo l]Ordered By: Joseph Wallace on 01-09-2023 Neutrophils (Bld) [#/Vol] 6.7 10*3/uL 1.8-7.7 [facility] Neutrophils/100 WBC Auto (Bl d)Ordered By: Joseph Wallace on 01-09-2023 Neutrophils/100 WBC (Bld) 58.5 % . [facility] Nitrite Test strip Ql (U)Ord ered By: Joseph Wallace on 01-09-2023 Nitrite Ql (U) Negative Negative [facility] No Panel InformationOrdered By: Joseph Wallace on 01-09-2023 Pharmacy Creatinine Clearance (Chem 141.51 [facility] Nucleated erythrocytes [Pres ence] in Blood by Automated countOrdered By: Joseph Wallace on 01-09-2023 Nucleated RBC Auto Ql (Bld) 0.1 /100{WBC} 0-0.5 [facility] Opiates [Presence] in Urine by Screen methodOrdered By: Joseph Wallace on 01-09-2023 Opiates Screen Ql (U) Positive Negative [facility] PREG HCG QUALon 01-09-2023 , QUAL Negative Normal NEGATIVE [facility] Comment on above: Performed By: #### P REG #### [facility] [address] [address] [address] Cristopher Godoy PROF CHEM 8 (BAS METB)on Anion gap [Moles/Vol] 10.6 mmol/L Normal [facility] Comment on above: Performed By: #### B MP #### [facility] [address] [address] [address] Cristopher Godoy Calcium [Mass/Vol] 8.7 mg/dL Normal 8.5-10.1 [facility] Comment on above: Performed By: #### B MP #### [facility] [address] [place] [address] Dr. Cristopher Godoy Chloride [Moles/Vol] 103 mmol/L Normal 98-107 [facility] Comment on above: Performed By: #### B MP #### [facility] Laboratory [address] [address] [address] Cristopher Godoy CO2 [Moles/Vol] 28.0 mmol/L Normal 21.0-32.0 [facility] Comment on above: Performed By: #### B MP #### [facility] Laboratory [address] [address] [address] Cristopher Godoy Creatinine [Mass/Vol] 0.62 mg/dL Normal 0.55-1.02 [facility] Comment on above: Performed By: #### B MP #### [facility] Laboratory [address] [address] [address] Cristopher Godoy EGFR-AF [place]OOK ISLANDER >60 Normal >=60 [facility] Comment on above: Performed By: #### B MP #### [facility] Laboratory [address] [place], [place] [address] Dr. Cristopher Godoy EGFR-NON AF [place] ISLANDER >60 Normal >=60 [facility] Comment on above: Performed By: #### B MP #### [facility] Laboratory [address] [address] [address] Cristopher Godoy Glucose [Mass/Vol] 128 mg/dL Critically high 74-106 T [facility] Comment on above: Performed By: #### B MP #### [facility] Laboratory [address] [address] [address] Cristopher Godoy Potassium [Moles/Vol] 3.6 mmol/L Normal 3.5-5.1 [facility] Comment on above: Performed By: #### B MP #### [facility] Laboratory [address] [address] [address] Cristopher Godoy Sodium [Moles/Vol] 138 mmol/L Normal 136-145 [facility] Comment on above: Performed By: #### B MP #### [facility] Laboratory [address] [address] [address] Cristopher Godoy Urea nitrogen [Mass/Vol] 13.0 mg/dL Normal 7.0-18.0 [facility] Comment on above: Performed By: #### B MP #### [facility] Laboratory [address] [address] [address] Cristopher Godoy Urea nitrogen/Creatinine [Mass ratio] 21.0 mg/mg Normal [facility] Comment on above: Performed By: #### B MP #### [facility] Laboratory [address] [address] [address] Cristopher Godoy Partial Thromboplastin Timeo n 01-09-2023 aPTT Coag (Bld) [Time] 30.5 s Normal 25.1-36.5 [facility] Comment on above: Result Comment: PERF ORMED BY: [facility] [address] [address] PATHOLOGIST LINOTYPIST LUCRECIA NG M.D. Performed By: #### P T, HEPATIC, PTT, BMP, CBC, LIPASE #### [facility] [id number] [facility] Phencyclidine Screen Ql (U)O rdered By: Joseph Wallace on 01-09-2023 Phencyclidine Ql (U) Negative Negative [facility] Platelet mean volume Auto (B ld) [Entitic vol]Ordered By: Joseph Wallace on 01-09-2023 Platelet mean volume (Bld) [Entitic vol] 9.8 fL 6.3-10.7 [facility] Platelet poor plasma interna tional normalized ratio (INR) by coagulation assay (relatOrdered By: Joseph Wallace on 01-09-2023 INR Coag (PPP) [Relative time] 0.9 {INR} [facility] Comment on above: INR Therapeutic Rang e [...] 01-09-2023 Platelets (Bld) [#/Vol] 314 10*3/uL 150-450 [facility] Potassium [Moles/volume] in Serum or PlasmaOrdered By: Joseph Wallace on 01-09-2023 Potassium [Moles/Vol] 3.9 mmol/L 3.5-5.1 [facility] Protein Auto test strip (U) [Mass/Vol]Ordered By: Joseph Wallace on 01-09-2023 Protein (U) [Mass/Vol] Negative Negative [facility] Protein [Mass/volume] in Ser um or PlasmaOrdered By: Joseph Wallace on 01-09-2023 Protein [Mass/Vol] 7.1 g/dL 6.4-8.[address] [facility] Prothrombin Time INRon 01-09 INR Coag (PPP) [Relative time] 0.9 {INR} Normal [facility] Comment on above: Result Comment: INR Therapeutic [...] T, HEPATIC, PTT, BMP, CBC, LIPASE #### [facility] [place] [facility] [address] PT Coag (PPP) [Time] 10.4 s Normal 9.0-12.9 [facility] Comment on above: Performed By: #### P T, HEPATIC, PTT, BMP, CBC, LIPASE #### [facility] [place] [facility] [address] RBC Auto (Bld) [#/Vol]Ordere d By: Joseph Wallace on 01-09-2023 RBC (Bld) [#/Vol] 4.67 10*6/uL 3.60-5.00 [facility] Serum or plasma albumin/glob ulin mass ratioOrdered By: Joseph Wallace on 01-09-2023 Albumin/Globulin [Mass ratio] 1.6 {ratio} [facility] Serum or plasma anion gap de terminationOrdered By: Joseph Wallace on 01-09-2023 Anion gap [Moles/Vol] 12.6 mmol/L 6.0-15.0 [facility] Serum or plasma non-glucuron idated bilirubin measurement (mass/volume)Ordered By: Joseph Wallace on 01-09-2023 Bilirubin.indirect [Mass/Vol] 0.4 mg/dL [facility] Sodium [Moles/volume] in Ser um or PlasmaOrdered By: Joseph Wallace on 01-09-2023 Sodium [Moles/Vol] 141 mmol/L 136-[address] [facility] Specific gravity Auto test s trip (U) [Rel density]Ordered By: Joseph Wallace on 01-09-2023 Specific gravity (U) [Rel density] 1.027 1.001-1.03 0 [facility] Squamous epithelial cells de tection in urine sediment by light microscopyOrdered By: Joseph Wallace on 01-09-2023 Epithelial cells.squamous LM Ql (Urine sed) 0-1 [HPF] 0-2 [facility] URINE MICROSCOPIC ONLYon BACTERIA NONE SEEN Normal NONE SEEN [facility] Comment on above: Performed By: #### FATOU LOPEZICRO #### [facility] Laboratory [address] [place] [address] Dr. Cristopher Godoy Bacteria identified Cx Nom (U) NOT INDICATED Normal [facility] Comment on above: Performed By: #### Cecilia BAUMAN UMICRO #### [facility] Laboratory [address] [place] [address] Dr. Cristopher Godoy CAST NONE SEEN Normal NONE SEEN [facility] Comment on above: Performed By: #### Cecilia BAUMAN UMICRO #### [facility] Laboratory [address] [place] [address] Dr. Cristopher Godoy Crystals LM Nom (Urine sed) NONE SEEN Normal NONE SEEN [facility] Comment on above: Performed By: #### Cecilia BAUMAN UMICRO #### [facility] Laboratory [address] [place] [address] Dr. Cristopher Godoy Epithelial cells LM Ql (Urine sed) FEW Abnormal NONE SEEN /RARE [facility] Comment on above: Performed By: #### Cecilia BAUMAN UMICRO #### [facility] Laboratory [address] [place] [address] Dr. Cristopher Godoy MUCOUS NONE SEEN Normal NONE SEEN [facility] Comment on above: Performed By: #### FATOU LOPEZICRO #### [facility] Laboratory [address] [place] [address] Dr. Cristopher Godoy RBC 5-10 Abnormal 0-2 [facility] Comment on above: Performed By: #### Cecilia BAUMAN UMICRO #### [facility] Laboratory [address] [place] [address] Dr. Cristopher Godoy WBC 0-2 Abnormal NONE SEEN [facility] Comment on above: Performed By: #### Cecilia BAUMAN UMICRO #### [facility] Laboratory [address] [place] [address] Dr. Cristopher Godoy US [facility]inalon 01-09[facility] [address] [place] [address] Ultrasound Report Signed Patient: Sofia Andrews MR#: [id number] : 2000 Acct:[id number] Age/Sex: 22 / F ADM Date: 01/09/23 Loc: ER Room: Type: [facility] ER Attending Dr: Ordering Provider: Joseph Wallace DO Date of Service: 01/09/23 US/US pelvic complete: ABDOMINAL PAIN ([id number]) US/US transvaginal: PAIN Copies to: Joseph Wallace [...] Chelsea Ceja M.D.01/09/2023 2:27 PM Dictation Location: [place] [address] Tech: Marian Mendoza Transcribed By: CHAZ 01/09/23 1427 Dictated By: Chelsea Ceja MD 01/09/23 1344 Signed By: 01/09/23 1427 Normal [facility] Urea nitrogen [Mass/volume] in Serum or PlasmaOrdered By: Joseph Wallace on 01-09-2023 Urea nitrogen [Mass/Vol] 12 mg/dL 7 [facility] Urine bacteria detection by automated methodOrdered By: Joseph Wallace on 01-09-2023 Bacteria Auto Ql (U) None seen None Seen [facility] Urine clarity by refractomet ry automatedOrdered By: Joseph Wallace on 01-09-2023 Clarity Refractometry automated (U) Clear Clear [facility] Urine glucose measurement by automated test strip (mass/volume)Ordered By: Joseph Wallace on 01-09-2023 Glucose Auto test strip (U) [Mass/Vol] Normal mg/dL Normal [facility] Urine hemoglobin detection b y automated test stripOrdered By: Joseph Wallace on 01-09-2023 Hemoglobin Auto test strip Ql (U) 1+ Negative [facility] Urine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 XcrZhF4GCSbliQeV4YaLHEqcF asYcQ1a1O3Ek6UTHOzRP26PXP 5 hDV3WA20DM91S4HfUuywjPKem +PHRhYmxlIHdpZHRoPScxMD PnEiPqjCboAU5nFd0hANMrIDB v zZmxpPPaDiZou9awWHFbEPmbN J9gaUofH6JqbQV1OETsw8o2Ze 89X96qO4VaqVB+EFTlwRB6fUE 0 pJ8kSaZeBeM9LHhtB258BlOnx JSnEqwdz9uar3glmRg7BrK4EA QmdpNbtViqVMS4l3XhAh28Q05 s IHdpZHRoPSIxNSUiIHZhbGlnb p5jvN1yBu8+ODBpxHD6qJM7sR 9ySaSqDgF3NEmdR308VaEbzFF v Qulpa3gtw4dlcZd4LyPwVKBdb sTelMecUDS0w3ZvKl88L9RubH haq9RtPnz4ml99hBOsu1P1cTI 9 K9BeIKWcdldgcLAnsOsvFQ5yJ UIauqfiMBWmaU9xTCOcU6w1Xt KdMcH4GStgI2MzhoF4YSKjbKA g GKciSYA3V54nf5K7SUHcZJHuO EJ9hWM4aB2yuQbhxyujcQAgpQ glpuSuiRkyGPbuSAyiM199OZQ v xKipJJFfwX9rHEErzCCuqRdeI H4vOIFdbpouGoYODWUyWO3KY6 9MRVRURTwvdGQ+XZFsNNK4pZb l KQtdWIMgdA4hVWVdH2e1WtQaM wV4IAzoO3VqESLyqnztNa70uM 1eWyTeHnD9ZPkyT5HikwN6EHM w fYUfFDjtHIX8T75un6T1DZPiO NRtBFH7rBD1jR8koVefecbctX BwfKjznoThyXuoVHgqYZgnI54 6 DPFgdHruVaRzByIwFfK8UKa8D 8VhQqs1EMVvzTkbRC3nxZOxWT dsSj2vtIfajNzfII9hEFPonsa w ODLoaE4dGOXvtOXslYltQR5xY ZXbemjxe975VqNhNAX7LYXakP SzH7BlbN3gVzSwUYYmZJQpV3S l cAEyGUczF825SVtxIfF3ZLPbk uEpY8GyEVHiyUsfNsS4w7H3Hq 4yMyBZZWFyczwvdGQ+PHRkIHN 0 bMblNRfsKTBdcN8aIHFhO3d0G wQaPaM6SPniP5RpSHVdjxdvNx 11rO5jMeQsAkX6RDwtK0KpycN 6 ZKQirXKyWAfuCLW2A94po3N6J IMdAOVsTGN8nII9dP1ycJbwem ogbGVmdDsgdmVydGljYWwtYWx p B491EVNtaDqaXoFivLHxFHaot GQ+HYUyBYR4wNggJCfaUTIuvW 3xHZFeH3y1BtUzNhR6PEskV8L h GPPibkcbEo56fB3dFhYyIzQ3K WmpI9ZglfX8ATFzbBWzQXzkZR V3S36do7V6OKLuKOCkRHN6eTA 4 qQ5eoTruycrfzZAuuVzwbbAzt TxxPCuiHEulP599QNVmeDpnVi KyKJHbZS0nuXdjiOT+QC82hy1 8 B7KxSviaDvj9CTSwINJ0gIS2b R1uKJCuXNvys9E6uDU6T1Obwb Ezpx0fi6atHZBjFJzkT77xlNP w z9R1UJKxkYA1BJZnjOajFoDfj G93Oyc+VVKieAida4TuXzkyq0 xgm6jqsLd2LyDvMISrgqPcvLt u MQV4p1OzPr52L29qFJqnXALfC RYyEHLhIWDvqInmqt4fjP4gZb 8+UUXatTK4lLJ3sY2xXiAqTpD 2 NGmbY791HaVneZJtClpwp5low 2mmvJv9VvUtPVHgamXfeQdzKP R3h3KdLo17P6YvkAfla3EfOvt 0 yb36mBQjr3N6yDA7H8PvTYIgo bxcgCTspSfcOX3cUKLzdmkoOE PasM9fFESuA9o5EvBzNsN4ZCa u M6JhglX0LQRvkULlMRDhhXJSx R3kgfslu8ifwvjtKaNiWKTyHS l9UKc0BHIbhUebIvFxBLM3ZiH 2 BIS5rUDriA6ipOxftfezaA1wZ yc+WPm3o6pivNIvSP3mdBB3HR 79MR87tVCcm9R1jLV2Q7IpKIL p hlgkpicbhKO9PUUmJOArkN71D m5hjLgiUf0cOQIgEYY7XTJatT QjP3YizZ0dGqKlLGJyWHDnR7C l uZQcTGzeT214JVcrGkN3TBEqb xHsI8XtTFAcsWbgUlD0c6C4Oj 2FMX36LB87SE82dFJfv4K7hNT 9 Z9JbFMZgbtijncetaEN4DHEdP ERdhX85Js8ylJjiPn3hXJOlIL X7FROmzOYuE3FcnA7wDkPfKDT w GGXpN6JneLLwPPbeJ667YCzaW vZ3TJIfewCnX0WrXZFyiTfgBi T9l7U2Zd2VWr08OC32FS56bJE g q5N8kPS9Z6ClWWXqgnbnhtitb VA3KJAvCEUftB15Eg6xnSnwDw 0mPDDrUOQ5CAUsiFYmZ0WnqP2 y XqIrHSQyFHAjG3YlfNUqBSylJ 925IGdiYkL4XPSaufObR9IeGK RteWfiGvC9e6W2Oj5OIEqsala 8 M0DzQfpkgFI+YV51WULnAZ69o LUqjYThk4eatZm8UoCmSWTkZG H8xNaaDDdjp7VgYSEsJ45rjAH w c2U6 (more content not included)... Normal [facility] Auto Diffon 02-18-2022 Basophils/100 WBC (Bld) 0.9 % Normal 0.0-2.0 [facility] Comment on above: Order Comment: Order Added by Discern Expert. Performed By: #### 2 [id number], [id number], [id number], [id number], [id number] ####[address] [address] Basophils/Leukocytes Auto (Bld) [Pure # fraction] 0.1 E9/L Normal 0.0-0.2 [facility] Comment on above: Order Comment: Order Added by Discern Expert. Performed By: #### 2 [id number], [id number], [id number], [id number], [id number] ####[address] [address] Eosinophils/100 WBC (Bld) 7.0 % Normal 0.0-8.0 [facility] Comment on above: Order Comment: Order Added by Discern Expert. Performed By: #### 2 [id number], [id number], [id number], [id number], [id number] ####[address] [address] Eosinophils/Leukocytes Auto (Bld) [Pure # fraction] 0.6 E9/L High 0.0-0.5 [facility] Comment on above: Order Comment: Order Added by Discern Expert. Performed By: #### 2 740642, [id number], [id number], [id number], [id number] ####[address] [address] Lymphocytes/100 WBC (Bld) 33.5 % Normal 14.0-50.0 [facility] Comment on above: Order Comment: Order Added by Discern Expert. Performed By: #### 2 283296, [id number], [id number], [id number], [id number] ####[address] [address] Lymphocytes/Leukocytes Auto (Bld) [Pure # fraction] 2.9 E9/L Normal 1.0-4.0 [facility] Comment on above: Order Comment: Order Added by Discern Expert. Performed By: #### 2 910954, 5785446, [id number], [id number], [id number] ####[address] [address] Monocytes/100 WBC (Bld) 8.4 % Normal 4.0-14.0 [facility] Comment on above: Order Comment: Order Added by Discern Expert. Performed By: #### 2 424789, 8419345, [id number], [id number], [id number] ####[address] [address] Monocytes/Leukocytes Auto (Bld) [Pure # fraction] 0.7 E9/L Normal 0.2-1.0 [facility] Comment on above: Order Comment: Order Added by Discern Expert. Performed By: #### 2 003573, 7640494, [id number], [id number], [id number] ####[address] [address] Neutrophils/100 WBC (Bld) 50.2 % Normal 36.0-75.0 [facility] Comment on above: Order Comment: Order Added by Discern Expert. Performed By: #### 2 922905, 0453424, [id number], 04812746, [id number] ####[address] [address] Neutrophils/Leukocytes Auto (Bld) [Pure # fraction] 4.3 E9/L Normal 2.0-7.5 [facility] Comment on above: Order Comment: Order Added by Discern Expert. Performed By: #### 2 142312, 8643269, [id number], [id number], [id number] ####[place] [address] [address] CBC w/ Auto Diffon Erythrocyte distribution width (RBC) [Ratio] 14.6 % High 10.9-14.2 [facility] Comment on above: Performed By: #### 2 590340, 0715365, 81833265, 12797320, 0426754 ####[address] [address] Hematocrit (Bld) [Volume fraction] 45.5 % Normal 34.0-46.0 [facility] Comment on above: Performed By: #### 2 940634, 4197660, 59475561, 37942164, 5167702 ####[address] [address] Hemoglobin (Bld) [Mass/Vol] 15.0 g/dL Normal 12.0-16.0 [facility] Comment on above: Performed By: #### 2 624669, 1041336, 05957637, 84058055, 2765417 ####[address] [address] MCH (RBC) [Entitic mass] 29.6 pg Normal 27.0-34.0 [facility] Comment on above: Performed By: #### 2 523826, 8614034, 99515660, 65601690, 5675735 ####[address] [address] MCHC (RBC) [Mass/Vol] 33.0 g/dL Normal 31.4-36.0 [facility] Comment on above: Performed By: #### 2 124843, 6858619, 46555868, 24963641, 1480918 ####[address] [address] MCV (RBC) [Entitic vol] 89.7 fL Normal 80.0-100.0 [facility] Comment on above: Performed By: #### 2 834444, 1797875, 60935587, 38381108, 6353538 ####[facility] [id number] [place] [address] Platelet mean volume (Bld) [Entitic vol] 10.5 fL Normal 6.4-10.8 [facility] Comment on above: Performed By: #### 2 148330, 0749976, 24472076, 51691619, 2336872 ####[address] [address] Platelets (Bld) [#/Vol] 339.0 E9/L Normal 150.0-500. 0 [facility] Comment on above: Performed By: #### 2 550266, 1047140, 12529728, 57619942, 9872287 ####[address] [address] RBC (Bld) [#/Vol] 5.1 E12/L Normal 4.3-5.9 [facility] Comment on above: Performed By: #### 2 776697, 1170459, 88342374, 87837949, 0472655 ####[address] [address] WBC corrected for nucl RBC Auto (Bld) [#/Vol] 8.6 E9/L Normal 4.0-11.0 [facility] Comment on above: Performed By: #### 2 002159, 1384138, 80995887, 41239881, 7364370 ####[address] [id number] CHEMISTRYOrdered By: SYSTEM SYSTEM on 02-18-2022 Albumin [...] 12 mmol/L Normal 6 - 16 mEq/L [facility] AST [Catalytic activity/Vol] 37 [iU]/d Normal 5 - 43 Int._Unit/ L [facility] Bilirubin [Mass/Vol] 0.8 mg/dL Normal 0.0 - 1 .1 mg/dL [facility] Calcium [Mass/Vol] 9.6 mg/dL Normal 8.9 - 11. 1 mg/dL [facility] Chloride [Moles/Vol] 105 mmol/L Normal 101 - 1 11 mmol/L [facility] CO2 [Moles/Vol] 27 mmol/L Normal 21 - 31 mmol/L [facility] Creatinine [Mass/Vol] 0.7 mg/dL Normal 0.5 - 1.3 mg/dL [facility] GFR/1.73 sq M.predicted among blacks MDRD (S/P/Bld) [Vol rate/Area] mL/min/1.73 m2 Normal >=59mL/min /1.73 m2 [facility] Chem S GFR/1.73 sq M.predicted among non-blacks MDRD (S/P/Bld) [Vol rate/Area] mL/min/1.73 m2 Normal >=59mL/min /1.73 m2 [facility] Chem S Globulin (S) [...] [Mass/Vol] pg/mL Low 10.10 - 27.10 pg/mL [facility] Urea nitrogen [Mass/Vol] 11 mg/dL Normal 5 - 21 mg/dL [facility] Urea nitrogen/Creatinine [Mass ratio] 16 mg/mg Normal 10 - 20 [facility] CMPon 02-18-2022 Albumin [Mass/Vol] 4.3 g/dL Normal 3.3-5.0 [facility] Comment on above: Performed By: #### 2 719802, 0190675, 34203909, 53815111, 3584772 ####[facility] [address] [place] [address] Albumin/Globulin (S) [Mass conc ratio] 1.2 Normal 1.1-2.2 [facility] Comment on above: Performed By: #### 2 378300, 9885883, 73590344, 71252478, 6050587 ####[facility] [address] [place] [address] ALP [Catalytic activity/Vol] 80 Int._Unit/L Normal 21-98 [facility] Comment on above: Performed By: #### 2 741676, 8963877, 86492441, 22717637, 3613709 ####[facility] [address] [place] [address] ALT No additional P-5'-P [Catalytic activity/Vol] 46 Int._Unit/L Normal 6-46 [facility] Comment on above: Performed By: #### 2 595070, 9421046, 07178165, 58591355, 7570812 ####[facility] [address] [place] [address] AST [Catalytic activity/Vol] 37 Int._Unit/L Normal 5-43 [facility] Comment on above: Performed By: #### 2 853188, 2522877, 77977889, 76274546, 5793201 ####[facility] [address] [place] [address] Bilirubin [Mass/Vol] 0.8 mg/dL Normal 0.0-1.1 [facility] Comment on above: Performed By: #### 2 860487, 8528196, 94765124, 90282849, 9034536 ####[facility] [address] [place] [address] Creatinine [Mass/Vol] 0.7 mg/dL Normal 0.5-1.3 [facility] Comment on above: Performed By: #### 2 375385, 3861645, 63475194, 92359336, 6531632 ####[facility] [address] [place] [address] Globulin (S) [Mass/Vol] 3.6 g/dL Normal 1.4-4.0 [facility] Comment on above: Performed By: #### 2 366926, 3637729, 37656215, 93932111, 3706829 ####[facility] [address] [place] [address] Protein [Mass/Vol] 7.9 g/dL High 6.0-7.8 [facility] Comment on above: Performed By: #### 2 733951, 7493547, 32455206, 20655276, 2277920 ####[facility] [address] [place] [address] Urea nitrogen [Mass/Vol] 11 mg/dL Normal 5-21 [facility] Comment on above: Performed By: #### 2 653792, 1526890, 72067847, 24048520, 2133383 ####[facility] [address] [place] [address] Urea nitrogen/Creatinine [Mass ratio] 16 No Units Normal 10-20 [facility] Comment on above: Performed By: #### 2 062624, 1361993, 31692599, 52670245, 9768211 ####[facility] [address] [place] [address] Anion gap [Moles/Vol] 12 mmol/L Normal 6-16 [facility] Comment on above: Performed By: #### 2 298018, 7741294, 68710985, 87690133, 8113275 ####[facility] [address] [place] [address] Calcium [Mass/Vol] 9.6 mg/dL Normal 8.9-11.1 [facility] Comment on above: Performed By: #### 2 830917, 6473728, 60114251, 44894596, 7892163 ####[facility] [address] [place] [address] Chloride [Moles/Vol] 105 mmol/L Normal 101-111 [facility] Comment on above: Performed By: #### 2 945308, 8474214, 84427928, 35198809, 6465171 ####[facility] [address] [place] [address] CO2 [Moles/Vol] 27 mmol/L Normal 21-31 [facility] Comment on above: Performed By: #### 2 150426, 8185159, 76550249, 92378683, 3283740 ####[facility] [address] [place] [address] Glucose [Mass/Vol] 69 mg/dL Normal 55-199 [facility] Comment on above: Result Comment: If t his glucose result represents a fasting glucose, interpretation should refer to the following reference range: 55-99 mg/dL Performed By: #### 2 341945, 2806873, 52261201, 72646793, 1587629 ####[facility] [address] [place] [address] Potassium [Moles/Vol] 3.9 mmol/L Normal 3.5-5.3 [facility] Comment on above: Performed By: #### 2 064553, 6742156, 29572516, 12902571, 0352141 ####[facility] [address] [place] [address] Sodium [Moles/Vol] 140 mmol/L Normal 135-145 [facility] Comment on above: Performed By: #### 2 561412, 1554844, 35380659, 06679680, 4488710 ####[facility] [address] [place] [address] Consent for Treatmenton 01-31 Consent for Treatment [id number]#1.00CD:12 7 Normal [facility] Discharge Instructionson Discharge Instructions [id number]#[id number]:1 27 Normal [facility] ED Clinical Summaryon 2021 ED Clinical Summary (Inserted Image. Kelsy ble to display) [place] [id number] ED Clinical Summary Person Information Name: SOFIA WIGGINS/Araceli Age: 21 Years : 2000 Sex: Female Language: Barbadian PCP: Wandy Dorado DO Marital Status: Single [...] 02/18/2022 15:44:15 02/18/2022 15:44:15 02/18/2022 15:44:15 ADDRESS: [address] [place] [id number] PHYS DOC NOTES: MEDICAL INFORMATION: Prescriptions Given: PATIENT EDUCATION INFORMATION: Instructions: Epidermal Cyst, Xedj-pf-Zbor Follow up: With: Address: When: Sara MCGRATH, [place] In 3 days 02/21/2022 DIAGNOSIS: 1:Epidermoid cyst of skin of chest; 2:Chest pain Normal [facility] ED Note-Physicianon 02-19-20 ED Note-Physician [...] few weeks ago she was seen at [facility] ED and had an abscess drained; drain [...] was given a couple of Percocet by fire lines and that helped. Patient also states that [...] will also work on obtaining labs from [facility]. Patient to be given morphine and Zofran for her pain. Aspirin for her chest pain. Vital Signs: Reviewed the patient's vital signs. Nursing Notes: Reviewed and utilized the nursing notes. Bulk Sealer: not needed - patient preferred language is Barbadian. Old Medical Records: The patient's available past medical records and past encounters were reviewed. Summary of pertinent elements include: Patient was initially seen on 01/08/2022 for an abscess of her chest wall. These records were not sent to us. [facility] sent over two most recent visits for [...] Percocet prescri (more content not included)... Normal [facility] Comment on above: Result Comment: Elec tronically Signed By: Fabi Iraheta PA-C\.maxwell\Date and Time Signed: 02/18/22 14:57 EDT\.br\Electronically Co-Signed [...] Follow these instructions at home: ? Take jeav-mfs-toombby and prescription medicines only as told by [...] cyst, or to remove it. ? Take xuzj-nmy-lgcjtps and prescription medicines only as told by [...] 11/26/2005 Document Revised: 02/09/2020 Document Reviewed: 07/28/2019 [employer] Patient Education ? 2019 [employer] Normal [facility] ED Patient Summaryon 022 ED Patient Summary (Inserted Image. Kelsy ble to display) [place] [id number] Patient Discharge Instructions Person Information Name: SOFIA WIGGINS Age: 21 Years Arrival Date: 02/18/2022 11:49:36 Discharge Diagnosis: 1:Epidermoid cyst of skin of chest; 2:Chest pain Primary Care Physician: Wandy Dorado DO Provider Information Primary Provider: Cheng Saldaña DO Advanced Web Feeder:Fabi Iraheta PA-C The exam and treatment you received in the Emergency Department were for an urgent problem and are not intended as complete care. It is important that you follow up with a doctor, nurse practitioner, or physician?s social media assistant for ongoing care. If your symptoms become worse or you do not improve as expected and you are unable to reach your usual health care provider, you should return to the Emergency Department. We are available 24 hours a day. SOFIA WIGGINS has been given the following list of patient education materials, prescriptions and follow-up instructions: Follow-up Instructions: With: Address: When: Sara MCGRATH, [place] In 3 days 02/21/2022 In the event that this physician does not participate in your insurance network, please consult with your insurance company to find a nearby participating provider. Patient Education Materials: Epidermal Cyst, Jkcm-vk-Gfhv A MESSAGE TO ALL PATIENTS REGARDING OPIOIDS PRESCRIPTION OPIOIDS: WHAT YOU NEED TO KNOW Prescription opioids can be used to help relieve cepurodu-ry-arfzmm pain and are often prescribed following a [...] be struggling with addiction, tell your health manager urgent care and ask for guidance or call [facility] National Helpline at 1-221-686-AQKM. e Source: [place] Department of Health and (more content not included)... Normal [facility] HEMATOLOGYOrdered By: SYSTEM SYSTEM on [...] 8.6 E9/L Normal 4.0 - 11.0 E9/L [facility] HemeAutoSS Outside Recordson 02-18-2022 Outside Records [id number]#1.00CD:1 27 Normal [facility] Prescriptions/Work Noteson 0 02-18-2022 Prescriptions/Work Notes [id number]#1.00CD:1 27 Normal [facility] SEROLOGYOrdered By: Tod For ster on 02-18-2022 HCG.beta subunit (U) [Moles/Vol] Negative Normal [facility] Man Sero Troponin 0 Hr.on 02-18-2022 Troponin I.cardiac [Mass/Vol] ng/mL Low 10.10-27.1 0 [facility] Comment on above: Result Comment: The 95% CI (Confidence Interval) PPV (Positive Predictive Value) for myocardial infarction in females is 38 pg/mL, in males 51 pg/mL. The results should be used in conjunction with clinical conditions of myocardial infarction. (Access High Sensitivity Troponin I Instructions For Use, [employer], June 2018) Performed By: #### 2 933797, 4590412, 89654811, 25893963, 9716909 ####[facility] [address] [place] [address] U BetaHcg Qualon 02-18-2022 HCG.beta subunit (U) [Moles/Vol] Negative Normal [facility] Comment on above: Performed By: #### 2 0493284, 06678715 ####[facility] [address] [place] [address] UA With Cult Reflexon 2021 Epithelial cells.squamous LM.HPF (Urine sed) [#/Area] 0-2 Normal 0-2 [facility] Comment on above: Performed By: #### 2 3724316, 46800663 ####[facility] [address] [place] [address] [place].plasma/[place] .RBC (Bld) [Mass ratio] 0-3 Normal 0-3 [facility] Comment on above: Performed By: #### 2 3046694, 71850095 ####[facility] [address] [place] [address] WBC LM.HPF (Urine sed) [#/Area] 0-5 Normal 0-5 [facility] Comment on above: Performed By: #### 2 3525853, 96938628 ####[facility] [address] [place] [address] Bilirubin Ql (U) Negative Normal Negative [facility] Comment on above: Performed By: #### 2 7593383, 84629560 ####[facility] [address] [place] [address] Clarity (U) CLEAR Normal Clear [facility] Comment on above: Performed By: #### 2 8012657, 66580728 ####[facility] [address] [place] [address] Color (U) STRAW Invalid Interpretation Code [facility] Comment on above: Performed By: #### 2 0485465, 23681928 ####[facility] [address] [place] [address] Glucose Test strip (U) [Mass/Vol] Negative Normal Negative [facility] Comment on above: Performed By: #### 2 3140148, 04074335 ####[facility] [address] [place] [address] Hemoglobin Ql (U) TRACE Abnormal Negative [facility] Comment on above: Performed By: #### 2 3356311, 62862711 ####[facility] [address] [place] [address] Ketones (U) [Mass/Vol] Negative Normal Negative [facility] Comment on above: Performed By: #### 2 7637011, 12291763 ####[facility] [address] [place] [address] Nitrite Ql (U) Negative Normal Negative [facility] Comment on above: Performed By: #### 2 0152931, 85212920 ####[facility] [address] [place] [address] pH (U) 6.5 [pH] Invalid Interpretation Code 5.0-9.0 [facility] Comment on above: Performed By: #### 2 5008969, 11020866 ####[facility] [address] [place] [address] Protein (U) [Mass/Vol] Negative Normal Negative Fi [facility] Comment on above: Performed By: #### 2 9995244, 81950092 ####[address] [address] Specific gravity (U) [Rel density] <=1.005 Invalid Interpretation Code 1.005-1.03 0 [facility] Comment on above: Performed By: #### 2 4551440, 73015556 ####[address] [address] Type of Urine collection method Random Urine Normal [facility] Comment on above: Performed By: #### 2 6512554, 00295860 ####[address] [address] Urobilinogen Qn (U) 0.2 {Kevin'U}/dL Normal 0.0-1.0 [facility] Comment on above: Performed By: #### 2 9407929, 92923361 ####[address] [address] WBC Auto Ql (U) Negative Normal Negative [facility] Comment on above: Performed By: #### 2 7053423, 19033346 ####[facility] [address] [place] [address] URINALYSISOrdered By: Tod camp on 02-18-2022 Bilirubin Ql (U) Negative (02/18/22 2:39 PM) Normal Negative [facility]A Auto SS Clarity (U) Clear (02/18/22 2:39 PM) Normal Clear [facility] UA Auto SS Color (U) STRAW Invalid Interpretation Code [facility] UA Auto SS Epithelial cells.squamous LM.HPF (Urine sed) [#/Area] 0-2 /HPF Normal 0-2/HPF [facility] UA Aut o SS Glucose Test strip (U) [Mass/Vol] Negative (02/18/22 2:39 PM) Normal Negative [facility] UA Auto SS Hemoglobin Ql (U) Trace *ABN* (02/18/22 2:39 PM) Invalid Interpretation Code Negative [facility] UA Auto SS Ketones (U) [Mass/Vol] Negative (02/18/22 2:39 PM) Normal Negative [facility] UA Auto SS [place].plasma/[place] .RBC (Bld) [Mass ratio] 0-3 /HPF Normal [...] Desc Random Urine (02/18/22 2:39 PM) Normal [facility] UA Auto SS Urobilinogen Qn (U) 0.4474727 {Kevin'U}/dL Normal 0.0 - 1.0 EU/dL [facility] UA Auto SS WBC Auto Ql (U) Negative (02/18/22 2:39 PM) Normal Negative [facility] UA Auto SS WBC LM.HPF (Urine sed) [#/Area] 0-5 /HPF Normal 0-5/HPF [facility] UA Auto SS XR Chest 2 Viewson [...] Esequiel Holder M.D. Transcribed by: DARWIN Technologist: KENYA Metcalf [facility] eGFRon 02-18-2022 GFR/1.73 sq M.predicted among blacks MDRD (S/P/Bld) [Vol rate/Area] mL/min/{1.73_m2} Normal >=59 [facility] Comment on above: Order Comment: Order added by Discern Expert. Result Comment: eGFR is race adjusted. AA=. Performed By: #### 2 611177, 6420485, 00910062, 88776254, 3599827 ####[facility] [address] [place] [address] GFR/1.73 sq M.predicted among non-blacks MDRD (S/P/Bld) [Vol rate/Area] mL/min/{1.73_m2} Normal >=59 [facility] Comment on above: Order Comment: Order added by Discern Expert. Result Comment: Addiction Specialist zhao kidney disease could be indicated at eGFR's of less than 60 mL/min/1.73m2. Kidney failure is indicated at less than 15 mL/min/1.73m2. Performed By: #### 2 397414, 1150483, 26285918, 80088550, 5543204 ####[facility] [address] [place] [address] Coding Summary.on 04-30-2021 Coding Summary. CD:[id number] Gh0bW w+PGhlYWQ+XS7JEKWpE88ckUA tzF2JN4xAJH3CEQNZXEIGAC2W JQ2bjTM5WOizZ8TrlqLv UxawkVTwDJ28CPa4XWB2nUerH OasuD0dmNUyF9u2OzXjEH38gC 14LKigVZIxPfZ6TqHlcdcyxOR y J8ltLyYxcUAtElw+PHRhYmxlI HdpZHRoPScxMDAlJyBzdHlsZT 6eKr9eIIFgFTWlbKwyuLSdNtQ j w2oaBNCwNGrfHT8oxBneH7Vlc LS4APKir0k0Il35nMF+PHRkIH K8gKzmTNshk235DoDuh8qoSJO 3 aXQsNUcvZSM0N40qg2W0VPOyR ETeAEH8mYR9sM9txGdjilzzM3 QsuJDfFhG6ANU7vZWldM9maIe n hvpocI6xOex+Z85PYR1VEOBRX D3STut9E5CoWlpwiPK+PC90YW FcGX21oCLwvTTyu8hbeVx3HyS w SKPjMNL1tGixLAbta6KkLTQgP 38eaVSag8V4FXBkqMbffRBeAn JdnVO5eL8iAJkvxnmwk7sspwk n Cfkwn3pvpp30oR23M28tBFzvP YTsJND6ZXDzWRWyxUrpnt3foJ 9wIi8+LYcyn2spn9juxNg4AwL w NVQqotQthQzmGPF7n4VnDl29P 3WhrOhpn5JvGya8uc90fWSne4 D3pDB7SJuvMDCroI3qDQveQfM 6 OHTbJmHupL24jUAcUYpfGu7pv QnjwTbwOI4aXWHekbtuKEZnhL 3dQJSgyRFndJymXU1uUQXddmf m j081CsJvVSS3PMXcmJPbA6Gpn H9dGsLvEHCzTFDoO0XdxQQqCF ntR920VZvrScK1VGAzcjTkA2E s FDMqmWpqZiX9f7N2Kg3Ee3Nrp rlyDQN5OExjTSM9WtC8QkVsMa F0G9EkFdd2MVHxlGxbFS0dF1B h NXNthgagsjnxlGH2ZLRwDAUyf X99sKVuZPyyXq6bv8N4x780BX VcYGHxmS84Vl9mmJdmEZZlySK U aV3axwosw7cecswnCjIjGVMmG Wv8STw2FSPpdZqwLiLiKDY8Qz A4SXI5wMZfzB1ybAzrseuicK4 w Oyc+S34qrO2zLDS7HEX8wfqrV RQmmeDoGN04FD49F0XiVvwoaS FibGU+OEWgroNyqPebJC3oQhT j p3xaa4CoLLeyJ0AbAJLeFRcvF wf1XCCbGUM9qZD7rZ4eBRIlLS hqc3W0qUT1M2OmzmOvda7xn4p s HNPnUUvxN59nvPMyg4L5RXCed EQ1YTEvdLqqPeMvxL06Sxy+PG DonGwof2ZiWoeis0sfn4mkqHv 9 SdOpXAGhkyFnpTpgMXY6g1QoA x88A20cALtmPYYpPDBbYXWdEM LkrMzmlw1whR4yAs3+PGNvbCB 3 uZH8gD0xYNMeKlD6EGgvL621R pQqoFAzCblfr8bwd8ebaKo8Wy AiUIMyrsByeBvmZBK2t0SjVd5 8 Y45fEUrpHQEyYWFiFZOmBISrg Lxywp8mxI0aWr2+IB8nh4bppq 43lF22mIG+GKGoDQX2bRkaWIz w PGYntF9eFLggZfW2UWUjWzNqw T83nJSiGOorHn8oaXbsiCtwEZ 4eCNEmjitzf519HsIhu6ueDAR w gSXtQElvDGU4F44ra6G5JVQhR FDwMIB2fTV6sK1huSamxhqjmR WlmZfpfgInpJmuEWkhQFogQ38 6 IHRvcDsnPlBhdGllbnQgTmFtZ Bv4F7OaVdl6KPByyQijQS5szS NuIRkiJn0tbJeyjNurJM2zDBF p vnnir497JlTgy8vxTEUsjKFpZ ZgwJYF7V27gu3N4MJJsOUMpIK D4vDH3xN1shKjfwbdujRBdpRx g bwShqMotPOvmDJwoU091FLYil MpiTyWqneDaQAVeiJQ8OH61VD 32hUWlu8X4mJV7W8OnNZNdkrx t edxpuZW4MXZgYMWajX79Li8jq SuvYl7nLDLqXBG7GYQkbEJyZ6 DhsL0eXqWjDKIiFPGqL7ImbDZ t FCycU855FLntUmF5BADiwvEsL 1ZaMTGjlEirCuP4h2K7Si4LC8 T1GY61CU77tMApt7T9gWQ4P1R h AFHckuylrioapIK4MHWsXJFkv O87Tq3foLddLp0jXUFhMHC3ES NgsFLfN8ZfdG8cYkXlXYXfRLL w P3GyuHVqNIhpH362WAphKrJ9Z BXkokLjW7ErIMKbxGjiSgU1o8 U5Qb2HOSb1VF42RD31cJJul3N 5 uXV9E9VvJGQunaoepdgapGV1H ONgBZOngF67Zj2ywZodHt8xIW JhSZS0OCPjbAWiU1XamM6cLkH j FOAyNHNlH2TgxKXoVMkcS053B VrdUgD0DHNxeeEjO0FxHMPgfV fiMlK1m9H9Uz7IHDWuWS19WJQ 5 xNM3PX52BN58B1HvTzqxzKEzh +PHRhYmxlIHdpZHRoPScxMD WkZnCqzJwwRX4jOg4zPGFbXPI v zDazhAJpEmUmz2kxYQLbKPlgZ E8kkKvnA6EznFG5MJWon2u9Ae 01D98rU7LjvMT+GEWdhGZ5dAH 0 bD2gNoYsXqL8UDeeY196RtBss EIgCmret0hiw1vaoQo6MsZ6FN PqclIriYakTXO5o1BbEe31Y56 s IHdpZHRoPSIxNSUiIHZhbGlnb l3skM6pKz5+GTEyrYL5dEG1yX 3oTiTtCfM7CGgpR591ZpUgyRK v Cgadl4nvu7jbrSp0FoEbDANmi fBmyBnsZPV7z5SaXh90E1TgkH bmi5PoBqj0vn60rCTfj9A2ePP 9 T6RhWJHuxolbmAVmrQjfCW8gU OYhjcofLMDulH9kFPFtK6s8Zj MkJzN1QMdxN7QqhcZ7SRZrzIL g DFfaOHG3K20bv8L2EPHuFWXgF FT4wIX6oP2vyEuzldkraFJcbU aiecWzkYjvHMstDTdnP902XNF v fHqsIHZgoC8hFLUpjTQsbYsoL C0eGFXshmioGlBVJAUpKP7XZ3 9MRVRURTwvdGQ+DNXoUGE5lPc l TZpkNQAprM1uFEEtK8e3WrRlL fA6YPmkT1VhKRAqllbfWh78hK 9nXgKjAqY4BWguA4RwklS9JBJ w tKEhKCkqTPH9H41ub6V5USUmP QBrSEO0oYR5rA2sgXftckysjK QatKdqzjJisEskJTzmMJexM01 6 JQDvbJcrQsGbHlVlOvQ8UYn8J 1ThKuw3FDWjpAqnKM4dkMZyMR ffTj0dgGcjvYosAV1kFHFfyda w PRBneQ0oPPTwwPAhzHcoTM7bJ MCnsauhe774JnMpDNG5WAPdyQ LoW0CzlT0iDbWcJAWzGJPtI4Y l zXSiZErsY793OAnmXjO9WORkf uYxS7CbADQlbKnfNcY3r4L6Fh 4yMiBZZWFyczwvdGQ+PHRkIHN 0 eKqsZNlbCQLatA8uDIEvG1u6E xJsDoV6RWvtJ1NwECSnpjzfXu 97hU0cTdHoLgY4PYzaP2CvbpK 6 BUYhpRVyQUrfRAY9X51co0E3A TGoNGAgFMJ2kRY1eK6ayKoqhy ogbGVmdDsgdmVydGljYWwtYWx p G236QCRnfJvzYqXiwKWkASpjf GQ+ZVCrIQT8mQxuNWkmXSNttN 5eKWRiB1q3IkSvSuY5LMmdE9M h NDKvuzhzMe69cR8lIrHoDtH0U GvrJ0SpaaN3DDExsQYzHKscTY B3E14ro2E8NSCrDUIaMEY2nUP 4 lI8qzAhjvzrxeNJexFavxiNdr XlkOVdyDWreM727UAXcmOvbOj DyBCWsIZ4szOspnTL+XP08ej0 8 F4KcGbmvCwc3MSZqUBM8wIS4i V5zNJTfZMezo6U7nNL5F3Vpdh Rxbj6yo0ctQQNxNCkbM49twNL w v4J3IBLemXW3YCMwvMkkLnOgt G93Oyc+KWMccMpld9OeMdtnb4 jlu4ddyDb0HmOzCGSxuqKqjCg u GZQ6i0HoKb20F26zMDzfJHXpZ ACnHYDxCWQwyAkahw5baD3dEt 8+UTOnyRS1sFR2dY8vUmVbOzE 2 STfbP259KcSxjIDyAtccw3erv 1tpkYf6GhPbCTTdstYkbBpeGD P3n3WdCs01Z6HgtHfce7SiPse 0 cd25oRLhy0W6dHK3J9YlHQJku oexeWBtaHbgUU1iRHKdzxfjEW FhdR1pIZCiO7c4AdMqCxP7MRs u S6QxefF2AAMbdZJbBWEtwHEPt I7zslnng0cyzdztSgNuZCOuRP e6KIe7RLPwmKanHxCmDAJ1IoD 2 JWE5fBAosD9pgZhdornyrY5dP yc+FFm7l6zlsYDgMS6jbVF2TC 01BQ43eUMpj4P8uAL4B3CmEUD p elgdgjtucSR0QHMvETTriB16W l0urCqaWj6qRSUrKTS0XOUvxH IpO0DxpG5kNlVcTNLwNHJfI0U l zXJfQDmrP958GUdlIfX9ERKrm rZiI2YhCZXzaZznIfV3f1W9Xc 5JVZ97UI78UK01rAVno7W1tVS 9 Q7KhQOKyutkfickuhNY8XQOaZ TTzcN75Ld4yxNsvNb5nDBAkEE P4WDJjkQObM3FuwR0xDeAsVQZ w IJDdM2HsxKTdEQtsY663FJvfN vY9YQZsotOuX1HzXTZqzGymAj V0w6J1Ys8KNg44YX80JS31tFT g v4F1sYA1Z9WjFMSvwjltdbahm DA1EPHpOAMyrX34Uh6rkRkkYb 7uWIUaWGF9CFUvnAWmK8BzsQ4 y LiBiTDTlMRUeU0CsaOVpOMviW 671NSyaGkZ3HEMieyGxI9NjWE SndYmeImA9m4K1Ai1XUWyphvw 8 M8VrAbklrIS+CX89DMBpIG03s XLaxSQhg5xhqNc9LpLsHASfHL M7sEcsJUqbh6GsTYXtK25tfNR w c2U6 (more content not included)... Normal [facility] ED Note-Physicianon 04-30-20 ED Note-Physician Basic Information Time Seen: Andrew Rainey PA-C 04/29/2021 16:12 Chief Complaint Pt states [...] Appropriate mood & affect. Integumentary: Warm, Dry, [place] Medical Decision Making Plain film x-rays were [...] Dor[place] In 3 days 05/02/2021 EDT [address] [place] [address]- Business (1) Additional Instructions: Ice to the wrist, [...] available. Diagnostic Results No qualifying data available. [facility] Comment on above: Result Comment: Elec tronically Signed By: Andrew Rainey PA-C\.br\Date and Time Signed: 04/30/21 13:32 EDT\.br\Electronically Co-Signed By: Alton Francisco DO\.br\Date and Time Co-Signed: 04/30/21 14:00 EDT XR [...] Lance M.D. Transcribed by: DARWIN Technologist: ZAK [facility] Consent for Treatmenton 04-03 Consent for Treatment [id number]:12 7 [facility] Discharge Instructionson Discharge Instructions [id number]:127 Normal [facility] ED Clinical Summaryon 2020 ED Clinical Summary (Inserted Image. Kelsy ble to display) [place] [id number] ED Clinical Summary Person Information Name: SOFIA WIGGINS/New_Dg Age: 20 Years : 2000 Sex: Female Language: Barbadian PCP: Wandy Dorado DO Marital Status: Single [...] 04/29/2021 17:51:20 04/29/2021 17:51:20 04/29/2021 17:51:20 ADDRESS: [address] [place] [address] [facility] [id number] PHYS DOC NOTES: MEDICAL INFORMATION: Prescriptions Given: [...] Adult Follow up: With: Address: When: [address] Munroe, [address] [place] [address] Business (1) In 3 days 05/02/2021 Comments: Ice to the wrist, wear the splint at all times. Medications as directed. DIAGNOSIS: 1:Tendinitis of wrist; 2:Left wrist pain Normal [facility] ED Patient Education Noteon 04-29-2021 [...] by your health care provider. ? Take cgnn-xet-urmzbru and prescription medicines only as told by [...] 10/16/2001 Document Revised: 04/26/2019 Document Reviewed: 03/09/2019 Else[employer] Patient Education ? 2020 [employer] Wrist Pain, Adul (more content not included)... Normal [facility] ED Patient Summaryon 021 ED Patient Summary (Inserted Image. Kelsy ble to display) [address] [id number] Patient Discharge Instructions Person Information Name: SOFIA WIGGINS Age: 20 Years Arrival Date: 04/29/2021 15:18:05 Discharge Diagnosis: 1:Tendinitis of wrist; 2:Left wrist pain Primary Care Physician: Wandy Dorado DO Provider Information Primary Provider: Alton Francisco DO Advanced Web Feeder:Andrew Rainey PA-C The exam and treatment you received in the Emergency Department were for an urgent problem and are not intended as complete care. It is important that you follow up with a doctor, nurse practitioner, or physician?s social media assistant for ongoing care. If your symptoms become worse or you do not improve as expected and you are unable to reach your usual health care provider, you should return to the Emergency Department. We are available 24 hours a day. SOFIA WIGGINS has been given the following list of patient education materials, prescriptions and follow-up instructions: Follow-up Instructions: With: Address: When: Wandy Dorado [facility] Brenda Munroe , [address] [id number] [facility] (1) In 3 days 05/02/2021 Comments: Ice [...] opioids can be used to help relieve rzndigwf-zy-mxzjkl pain and are often prescribed following a [...] your he (more content not included)... [facility] Ambulatory Clinical Summaryo n 04-12-2021 Ambulatory Clinical Summary {[id number] [facility] Family Medicine Video Visit - [...] Contact Information Barbara Sen Only if needed [email or web address] Additional Instructions: Patient Education Health Maintenance, Female [...] Wandy Grigsby MA 04/09/2021 15:52 EDT [facility] Comment on above: Result Comment: Elec tronically Signed By: Barbara Sen\.br\Date and Time Signed: 04/09/21 16:10 EDT Patient Educationon 04-09-20 Patient Education Obstetrics and Gynec ology Health [...] Ask your heal (more content not included)... [facility] Provider Letteron 04-09-2021 Provider Letter (Inserted Image. Kelsy ble to display) April 09, 2021 SOFIA WIGGINS [address] [place] [address] To Whom It May Concern, Please excuse above patient from work. Date of Illness: From: 04/03 To: 04/09 May Return to Work On:04/10 Sincerely, Family Medicine [place] [address] [place] [address] [facility] CHEST, SPECIAL VIEWS(AMANDAUB/Carlos RODRIGUEZ)on 09-30-2018 CHEST, SPECIAL VIEWS(AMANDAUB/UMAIR) Name: SOFIA WIGGINS STUDY:CHEST, SPECIAL VIEWS(DEBUB/UMAIR); 09/30/2018 7:06 pm INDICATION:Signs/Symptoms : fall off hosre. COMPARISON:None. ORDERING CLINICIAN:JOHNIE WELLINGTON FINDINGS: CARDIOMEDIASTINAL SILHOUETTE:Cardiomediasti nal silhouette is normal in size and configuration. LUNGS:Lungs are clear. BONES:No acute osseous changes. IMPRESSION:1. No evidence of acute cardiopulmonary process.Electronically signed by: ARACELI GONZALEZ MD [facility] CT C-SPINE WO CONTRASTon CT C-SPINE WO CONTRAST ent Name: SOFIA WIGGINS STUDY:CT C-SPINE WO CONTRAST; 09/30/2018 7:06 pm [...] sinuses.Electronically signed by: JUAN JASSO MD [facility] CT HEAD WO CONTRASTon 2017 CT HEAD WO CONTRAST Name: SOFIA WIGGINS STUDY:CT HEAD WO CONTRAST; 09/30/2018 7:06 pm [...] Electronically signed by: JUAN JASSO MD [facility] PELVIS, 1 OR 2 VIEWSon 09-30 PELVIS, 1 OR 2 VIEWS t Name: SOFIA WIGGINS STUDY:PELVIS, 1 OR 2 VIEWS; 09/30/2018 7:06 pm INDICATION:Signs/Symptoms : fall off horse last night. COMPARISON:None. ORDERING CLINICIAN:JOHNIE WELLINGTON FINDINGS:AP pelvis. The osseous structures and soft tissues appear normal. Nofracture or dislocation is noted IMPRESSION:Unremarkable pelvis Electronically signed by: ARACELI GONZALEZ MD [facility] Provider Note - ED v2on 09-03 Protein mass conc Provider Note - ED [...] signs ofdeformity. 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 No facial asymmetry. Moves [...] be present.Please call if questions. Johnie Wellington, [facility], PGY 3 HISTORY OF PRESENTING ILLNESSSOFIA is a 17 year old Female and [...] a day SIGNIFICANT EVENTS: No documented data. [facility]IL[facility] MAGISTRATE: Last Menstrual Period: 07-Sep-2018 Is : no(1) [...] 7:12PM] VITAL SIGNS: T PRBP SpO2O2(LPM) %FiO2 18:34:[id number]/80 97 room air, no respiratorysupport CLINICAL IMPRESSIONDiagnosis/Annot [...] a critically ill patient: no Electronic Signatures:Jagdish Arguello () (Signed 02-Oct-2018 22:04)Authored: Provider Note - ED [id number]: Provider Note - ED [id number] Wellington ( (Resident)) (Signed 30-Sep-2018 19:51)Authored: Provider Note - ED v2 Last Updated: 02-Oct-2018 22:04 by Jagdish Arguello () References:1. Data Referenced From Triage - ED 09/30/2018 06:34 PM [facility] Risk Screen - Adult Emergenc yon 09-30-2018 Risk Screen - Adult Emergency Preferred Language:Preferred Language: Preferred Language for Discussing Health Care (patient/designee)Barbadian Advanced Directives: Advance Directive Medicalno Advance Directive [...] Learning Preferencesverbal instruction Cultural Considerationsnone Developmental Considerationsnone Sabianism Considerationsnone Learning Assessment (Other Learner):Learning Assessment (Other [...] an injured patient at a Trauma Center ([facility]): no Electronic Signatures:Kateryna Troy (RN) (Signed 30-Sep-2018 19:18)Authored: Preferred Language, Advanced Directives, Family Violence Adult,Suicide / Depression, Learning Assessment (Patient), Learning Assessment (OtherLearner), Fall Risk Adult, Pressure Injury, Respiratory / Cough /TB,Smoking/Social History (Required age 13 or older), CAGE Last Updated: 30-Sep-2018 19:18 by Kateryna Troy (RN) [facility] SHOULDER, CMPLT, MIN 2 VIEWS on 09-30-2018 SHOULDER, CMPLT, MIN 2 VIEWS Name: SOFIA WIGGINS STUDY:SHOULDER, CMPLT, MIN 2 VIEWS; 09/30/2018 7:06 pm INDICATION:Signs/Symptoms : fall off horse last night. COMPARISON:None. ORDERING CLINICIAN:JOHNIE WELLINGTON FINDINGS:Right shoulder three views. The osseous structures and soft tissuesappear normal. No fracture or dislocation is noted IMPRESSION:Unremarkable right shoulder Electronically signed by: ARACELI GONZALEZ MD [facility] Triage - EDon 09-30-2018 Triage - ED Quick Triage:Are You noAre You Currently Breastfeedingno Pain:Pain Rating (0-10): Rest8 Chart Review:CHIEF COMPLAINT SOFIA WIGGINS is a Female patient with a chief complaint of headache (Ptstates she fell off 7 ft horse yesterday and hit the back of her head. Ptstates she lost consciousness x 10-15 minutes. States she developed headachethis morning when she woke up and is c/o dizziness. Pt c/o neck pain. C-collarapplied at time of triage.).Onset of the Complaint: [id number] Date/Time: 30-Sep-2018 18:34Pain Rating (0-10): Rest: 8Vital Signs:Temperature: 97.1F ( 36.2C)Blood Pressure: 132/80 Mean:Heart Rate: 92Respiratory Rate: 18Pulse Oximetry: 97% on room air, no respiratory support. Height: 4 feet 11.00inches. 149.8 CMWeight: 135.0 pounds. Calculated 61.2 kg.Calculated BMI (kg/m2): 27.272 Calculated BSA (m2) 1.60 Cough lasting greater than 3 weeks: noPatient immunocompromised related to: N/ATravel outside of [place]: noAllergies: noLast menstrual period: [id number]: 2 Symptoms Are POSITIVE For:facial pain and neck pain.Symptoms Are Negative For:anorexia, anxiety, blurred vision, congestion, eye pain, nausea andphotophobia. PAIN Pain Scale Used: CONCHA PRIMARY ASSESSMENT SOFIA WIGGINS's primary assessment is Within Normal Limits. The airway is openand patent. Breathing spontaneous and unlabored with clear breath soundsbilaterally. Circulation is normal with good peripheral pulses. Skin is warmand dry and color is normal for race. Past Medical History: Past Medical History Reviewedyes Electronic Signatures:Regine Lundberg (KYA) (Signed 30-Sep-2018 18:38)Authored: Triage, Past Medical History Last Updated: 30-Sep-2018 18:38 by Regine Lundberg (KYA) [facility] Vital Signs Date Time Vital Sign Value Performing Clinician Facility 01-13-2024 08:39-0400 Body height 151.1 cm [employer] Work Phone: [employer] 01-13-2024 08:39-0400 Body mass index (BMI) [Ratio] 33.96 kg/m2 [employer] Work Phone: [employer] 01-13-2024 08:39-0400 Body weight 77.56 kg [employer] Work Phone: [employer] 01-13-2024 08:39-0400 Diastolic blood pressure 82 mm[Hg] Tiburcio Crawford DO Work Phone: [employer] 01-13-2024 08:39-0400 Systolic blood pressure 122 mm[Hg] Tiburcio Crawford DO Work Phone: [employer] 12-01-2023 11:00-0500 Body height 125.27 cm Kayley Mo Other [employer] Other 12-01-2023 11:00-0500 Body mass index (BMI) [Ratio] 39.31 kg/m2 Kayley Mo Other [employer] Other 12-01-2023 11:00-0500 Body temperature 101.2 [degF] Kayley Mo Other [employer] Other 12-01-2023 11:00-0500 Body weight 61.69 kg Kayley Mo Other [employer] Other 12-01-2023 11:00-0500 Respiratory rate 18 /min Kayley Mo Other [employer] Other 12-01-2023 11:00-0500 SaO2% (BldA) [Mass fraction] 97 % Kayley Mo Other [employer] Other 09-24-2023 08:48-0500 Body height 149.86 cm DO Shauna Atkinson Work Phone: [facility] 09-24-2023 08:48-0500 Body temperature 97.4 [degF] DO Shauna Atkinson Work Phone: [facility] 09-24-2023 08:48-0500 Body weight 67.13 kg DO Shauna Atkinson Work Phone: [facility] 09-24-2023 08:48-0500 Diastolic blood pressure 56 mm[Hg] DO Shauna Atkinson Work Phone: [facility] 09-24-2023 08:48-0500 Heart rate 99 /min DO Shauna Atkinson Work Phone: [facility] 09-24-2023 08:48-0500 Respiratory rate 18 /min DO Shauna Atkinson Work Phone: [facility] 09-24-2023 08:48-0500 SaO2% (BldA) [Mass fraction] 97 % DO Shauna Atkinson Work Phone: [facility] 09-24-2023 08:48-0500 Systolic blood pressure 119 mm[Hg] DO Shauna Atkinson Work Phone: [facility] 01-09-2023 15:00-0500 Diastolic blood pressure 71 mm[Hg] DO Shauna Atkinson Work Phone: [facility] 01-09-2023 15:00-0500 Heart rate 76 /min DO Shauna Atkinson Work Phone: [facility] 01-09-2023 15:00-0500 Respiratory rate 16 /min DO Shauna Atkinson Work Phone: [facility] 01-09-2023 15:00-0500 SaO2% (BldA) [Mass fraction] 96 % DO Shauna Atkinson Work Phone: [facility] 01-09-2023 15:00-0500 Systolic blood pressure 107 mm[Hg] DO Shauna Atkinson Work Phone: [facility] 01-09-2023 11:40-0500 Body height 149.86 cm DO Shauna Atkinson Work Phone: [facility] 01-09-2023 11:40-0500 Body temperature 97.6 [degF] DO Shauna Atkinson Work Phone: [facility] 01-09-2023 11:40-0500 Body weight 79 kg DO Shauna Atkinson Work Phone: [facility] 10-13-2022 11:52-0500 Body height 149.86 cm DO Shauna Atkinson Work Phone: [facility] 10-13-2022 11:52-0500 Body temperature 98.7 [degF] DO Shauna Atkinson Work Phone: [facility] 10-13-2022 11:52-0500 Body weight 78 kg DO Shauna Atkinson Work Phone: [facility] 10-13-2022 11:52-0500 Diastolic blood pressure 66 mm[Hg] DO Shauna Atkinson Work Phone: [facility] 10-13-2022 11:52-0500 Heart rate 90 /min DO Shauna Atkinson Work Phone: [facility] 10-13-2022 11:52-0500 Respiratory rate 18 /min DO Shauna Atkinson Work Phone: [facility] 10-13-2022 11:52-0500 SaO2% (BldA) [Mass fraction] 96 % DO Shauna Atkinson Work Phone: [facility] 10-13-2022 11:52-0500 Systolic blood pressure 113 mm[Hg] DO Shauna Atkinson Work Phone: [facility] 10-12-2022 16:07-0500 Body height 152.4 cm DO Shauna Atkinson Work Phone: [facility] 10-12-2022 16:07-0500 Body temperature 99.1 [degF] DO Shauna Atkinson Work Phone: [facility] 10-12-2022 16:07-0500 Body weight 78 kg DO Shauna Aktinson Work Phone: [facility] 10-12-2022 16:07-0500 Diastolic blood pressure 67 mm[Hg] DO Shauna Atkinson Work Phone: [facility] 10-12-2022 16:07-0500 Heart rate 87 /min DO Shauna Atkinson Work Phone: [facility] 10-12-2022 16:07-0500 Respiratory rate 16 /min DO Shauna Atkinson Work Phone: [facility] 10-12-2022 16:07-0500 SaO2% (BldA) [Mass fraction] 95 % DO Shauna Atkinson Work Phone: [facility] 10-12-2022 16:07-0500 Systolic blood pressure 127 mm[Hg] DO Shauna Atkinson Work Phone: [facility] 04-10-2022 09:14-0400 Body height 149.86 cm No PCP None [facility] Work Phone: 04-10-2022 09:14-0400 Body mass index (BMI) [Ratio] 34.18 kg/m2 No PCP None [facility] Work Phone: 04-10-2022 09:14-0400 Body surface area Derived from formula 1.72 m2 No PCP None LV[facility]Txqpibm[facility]Btxgh [facility] Work Phone: 04-10-2022 09:14-0400 Body temperature 97.5 [degF] No PCP None RD[facility]Smnjdvh[facility]ul[facility] n [facility] Work Phone: 04-10-2022 09:14-0400 Body weight 76.77 kg No PCP None JL[facility]ine [facility] Work Phone: 04-10-2022 09:14-0400 Diastolic blood pressure 83 mm[Hg] No PCP None TQ[facility]Aobjmrd[facility]Mdnac [facility] Work Phone: 04-10-2022 09:14-0400 Heart rate 99 /min No PCP None PA[facility]Hlpbjib[facility]Heulv [facility] Work Phone: 04-10-2022 09:14-0400 SaO2% (BldA) [Mass fraction] 98 % No PCP None DX[facility]Dzdoegm[facility]Fbvmm [facility] Work Phone: 04-10-2022 09:14-0400 Systolic blood pressure 140 mm[Hg] No PCP None PB[facility]Bznrfdj[facility]Dzeje [facility] Work Phone: 03-27-2022 09:51-0400 Body height 149.86 cm No PCP None US[facility]Bsgwzow[facility]Xjahs [facility] Work Phone: 03-27-2022 09:51-0400 Body mass index (BMI) [Ratio] 35.16 kg/m2 No PCP None NE[facility]Fifawfg[facility]Rynrk [facility] Work Phone: 03-27-2022 09:51-0400 Body surface area Derived from formula 1.74 m2 No PCP None SG[facility]Bjajivo[facility]Xsncb [facility] Work Phone: 03-27-2022 09:51-0400 Body temperature 97.7 [degF] No PCP None HO-Lzazfvs[facility]Erkt n [facility] Work Phone: 03-27-2022 09:51-0400 Body weight 78.95 kg No PCP None VD[facility]Krvqfwo[facility]Oyllf [facility] Work Phone: 03-27-2022 09:51-0400 Diastolic blood pressure 83 mm[Hg] No PCP None HF[facility]Dlnxkch[facility]Thqcc [facility] Work Phone: 03-27-2022 09:51-0400 Heart rate 78 /min No PCP None LZ[facility]Cukqvxp[facility]Tvrpc [facility] Work Phone: 03-27-2022 09:51-0400 SaO2% (BldA) [Mass fraction] 99 % No PCP None MQ[facility]Rpixwmg[facility]Dviip [facility] Work Phone: 03-27-2022 09:51-0400 Systolic blood pressure 121 mm[Hg] No PCP None JL[facility]Mzpeepq[facility]Azrrs [facility] Work Phone: 02-18-2022 15:00-0400 Diastolic blood pressure 63 mm[Hg] Cheng Saldaña [facility] 02-18-2022 15:00-0400 Heart rate 79 /min Cheng Saldaña [facility] 02-18-2022 15:00-0400 Mean blood pressure 79 mm[Hg] Cheng Piotr [facility] 02-18-2022 15:00-0400 SaO2% (BldA) [Mass fraction] 100 % Cheng Piotr [facility] 02-18-2022 15:00-0400 Systolic blood pressure 111 mm[Hg] Cheng Piotr [facility] 02-18-2022 14:00-0400 Diastolic blood pressure 52 mm[Hg] Cheng Piotr [facility] 02-18-2022 14:00-0400 Heart rate 94 /min Cheng Piotr [facility] 02-18-2022 14:00-0400 Mean blood pressure 71 mm[Hg] Cheng Piotr [facility] 02-18-2022 14:00-0400 SaO2% (BldA) [Mass fraction] 94 % Cheng Piotr [facility] 02-18-2022 14:00-0400 Systolic blood pressure 108 mm[Hg] Cheng Piotr [facility] 02-18-2022 13:52-0400 Heart rate 85 /min Cheng Piotr [facility] 02-18-2022 13:52-0400 Respiratory rate 16 /min Cheng Piotr [facility] 02-18-2022 13:52-0400 SaO2% (BldA) [Mass fraction] 98 % Cheng Piotr [facility] 02-18-2022 11:54-0400 Body temperature 98.24 [degF] Cheng Saldaña [facility] 02-18-2022 11:54-0400 Diastolic blood pressure 65 mm[Hg] Cheng Saldaña [facility] 02-18-2022 11:54-0400 Heart rate 102 /min Cheng Saldaña [facility] 02-18-2022 11:54-0400 Systolic blood pressure 118 mm[Hg] Cheng Saldaña [facility] Encounters Encounter Date Encounter Type Care Provider Facility Start: 01-25-2024 Telephone encounter Alicia Ohara RN [facility] Start: 01-20-2024 End: 01-21-2024 ambulatory [facility] Start: 01-19-2024 Orders Only Tiburcio Stuart Crawford DO Work Phone: [facility] Comment on above: Medication managemen t (Primary Dx) Start: 01-13-2024 End: 01-14-2024 ambulatory [facility] Comment on above: Pelvic pain; Dysmenorrhea Start: 01-13-2024 End: 01-13-2024 Encounter for gynecological examination (general) (routine) without abnormal findings Tiburcio Crawford DO Work Phone: [employer] Work Phone: Start: 01-13-2024 End: 01-13-2024 Patient encounter procedure Tiburcio Crawford DO Work Phone: [employer] Start: 01-13-2024 End: 01-13-2024 Periodic preventive med est patient 18-39 yrs Tiburcio Crawford DO Work Phone: [facility] Comment on above: Well woman exam with routine gynecological exam (Primary Dx); Cervical smear, as part of routine gynecological examination; Pelvic pain; Dysmenorrhea Start: 12-01-2023 End: 12-01-2023 ambulatory Kayley Mo Other [employer] Other Start: 12-01-2023 Office outpatient vi sit 25 minutes Kayley Mo [facility] Start: 11-03-2023 End: 11-03-2023 ambulatory Cheng Cruz Other [employer] Other Start: 11-03-2023 Office outpatient vi sit 15 minutes Cheng Cruz [facility] Start: 09-28-2023 End: 09-28-2023 ambulatory Cheng Cruz Other [employer] Other Start: 09-28-2023 Office outpatient ne w 30 minutes Cheng Cruz [facility] Start: 09-24-2023 End: 09-24-2023 Emergency department patient visit Alton Boss Facility:[facility] Start: 09-24-2023 End: 09-24-2023 Emergency department patient visit DO Shauna Atkinson Work Phone: [facility] Work Phone: Start: 02-23-2023 End: 02-23-[address] ISRAEL MISC Facility:[facility] Start: 01-09-2023 End: 01-09-2023 Emergency department patient visit Joseph Wallace Facility:[facility] Start: 01-09-2023 End: 01-09-2023 Emergency department patient visit DO Shauna Atkinosn Work Phone: [facility] Work Phone: Start: 01-09-2023 End: 01-09-[address] ISRAEL MISC Facility:[facility] Start: 01-05-2023 End: 01-05-[address] ISRAEL MISC Facility:[facility] Start: 12-05-2022 End: 12-05-[address] ISRAEL MISC Facility:[facility] Start: 10-13-2022 End: 10-13-2022 Emergency department patient visit DO Shauna Atkinson Work Phone: [facility] Start: 10-12-2022 End: 10-12-2022 Emergency department patient visit DO Shauna Atkinson Work Phone: [facility] Start: 10-11-2022 End: 10-11-[address] GIOVANA GILMORE Facility:[facility] Start: 05-03-2022 Chart Update No PCP [facility] Work [facility]: Start: 04-29-2022 AUDIT No PCP None [facility] Work Phone: Start: 04-10-2022 FUV, Provider: Juan Taylor, Status: Pen, Time: 9:00 AM No PCP None [facility] [place] Work Phone: Start: 04-10-2022 Office outpatient vi sit 15 minutes No PCP None [facility]id[facility] [place] Work Phone: Start: 04-09-2022 Chart Update No PCP None [facility] [place] Work Phone: Start: 03-27-2022 Office outpatient ne w 30 minutes No PCP None [facility] Work Phone: Start: 02-18-2022 End: 02-18-2022 Emergency department patient visit Cheng Saldaña [facility] Start: 09-30-2018 Emergency dept visit high severity&threat funcj JAGDISH ARGUELLO [facility] Start: 09-30-2018 End: 09-30-2018 Patient encounter procedure JAGDISH ARGUELLO Facility:[id number] Procedures Date Procedure Procedure Detail Performing Clinician Start: 01-13-2024 Adult depression scr eening assessment Tiburcio Crawford DO Work Phone: Start: 01-13-2024 Microscopic observat ion [Identifier] in Cervix by Cyto stain Tiburcio Crawford DO Work Phone: Start: 09-24-2023 Radiologic examinati on of knee DO Shauna Atkinson Work Phone: Start: 01-09-2023 Transvaginal echography DO Shauna Atkinson Work Phone: Start: 01-09-2023 Pelvic echography DO ursula Atkinson Work Phone: Start: 11-02-2015 Extraction of wisdom tooth Cheng Saldaña Tonsillar structure (palatine) (body structure) Cheng Saldaña Plan of Treatment Date Care Activity Detail Author Start: 05-21-2031 DTaP,Tdap and Td Vac cines (2 - Td or Tdap) DTaP,Tdap and Td Vaccines (2 - Td or Tdap) [facility] Start: 01-12-2027 Screening for malign ant neoplasm of cervix Pap Smear [facility] Start: 01-12-2025 Adult BMI Screening Adult BMI Screen ing [facility] Start: 01-12-2025 Depression Screening Depression Scre ening [facility] Start: 01-12-2025 Tobacco Screening Tobacco Screening [facility] Start: 01-20-2024 End: 01-20-2024 Patient encounter procedure 01/20/2024 8:00 AM EDT Appointment [facility] [address] [place] [address] Tiburcio Crawford, DO [address] [place] [address] [facility] - Ultrasound Start: 01-20-2024 Subsequent hospital visit by physician 01/20/2024 8:00 AM EDT Hospital Encounter [facility] [address] [place] [address] Tiburcio Crawford, [place] [address] [facility] Start: 01-13-2024 End: 01-12-2025 Cytopathology procedure, preparation of smear, genital source Pap Smear Pathology and Cytology Routine Cervical smear, as part of routine gynecological examination Expected: 01/13/2024 (Approximate), Expires: 01/12/2025 [facility] Work Phone: Comment on above: Expected: 01/13/2024 (Approximate), Expires: 01/12/2025 Start: 01-13-2024 End: 01-12-2025 US Pelvis transabdominal and transvaginal Ultrasound pelvic with transvaginal Imaging Routine Pelvic pain Expected: 01/13/2024, Expires: 01/12/2025 [facility] Comment on above: Expected: 01/13/2024 , Expires: 01/12/2025 Start: 12-10-2023 Adult BMI Follow Up Plan Adult BMI Follow Up Plan [facility] Start: 07-03-2023 COVID-19 Vaccine () COVID-19 Vaccine () [facility] Start: 07-03-2023 Influenza vaccination Influenza Vacc ine [facility] Start: 10-12-2022 [facility] Start: 05-08-2022 POV, Provider: Juan Taylor, Status: Pen, Time: 10:00 AM POV, Provider: Juan Taylor, Status: Pen, Time: 10:00 AM [facility] Work Phone: Start: 04-10-2022 FUV, Provider: Juan Taylor, Status: Pen, Time: 9:00 AM [facility] Work Phone: Start: 2019 Screening for malign ant neoplasm of cervix Pap Smear [facility] Start: 1998 Tobacco Counseling Tobacco Counselin g [facility] Alanine aminotransfe rase [Enzymatic activity/volume] in Serum or Plasma by No addition of P-5'-P [facility] Work Phone: Albumin [Mass/volume ] in Serum or Plasma [facility] Work Phone: Albumin/Globulin ratio [facility] Work Phone: Alkaline phosphatase [Enzymatic activity/volume] in Serum or Plasma [facility] Work Phone: Anion gap measurement [facility] Work Phone: Aspartate aminotrans ferase [Enzymatic activity/volume] in Serum or Plasma [facility] Work Phone: Basophils [#/volume] in Blood by Automated count [facility] Work Phone: Basophils/100 leukoc ytes in Blood by Automated count [facility] Work Phone: Bilirubin.total [Mass/volume] in Serum or Plasma [facility] Work Phone: Calcium [Mass/volume ] in Serum or Plasma [facility] Work Phone: Carbon dioxide, tota l [Moles/volume] in Serum or Plasma [facility] Work Phone: End: 01-18-2025 CBC W Auto Differential panel - Blood CBC auto differential Lab Routine Medication management 1 Occurrences starting 01/19/2024 until 01/18/2025 [employer] Work Phone: Comment on above: 1 Occurrences starti ng 01/19/2024 until 01/18/2025 Chloride [Moles/volu me] in Serum or Plasma [facility] Work Phone: End: 01-18-2025 Comprehensive metabolic 2000 panel - Serum or Plasma Comprehensive metabolic panel Lab Routine Medication management 1 Occurrences starting 01/19/2024 until 01/18/2025 [employer] Comment on above: 1 Occurrences starti ng 01/19/2024 until 01/18/2025 Creatinine and Glome rular filtration rate.predicted panel - Serum, Plasma or Blood [facility] Work Phone: Eosinophils [#/volum e] in Blood [facility] Work Phone: Eosinophils/100 leuk ocytes in Blood by Automated count [facility] Work Phone: Erythrocyte distribu tion width [Ratio] by Automated count [facility] Work Phone: Erythrocytes [#/volu me] in Blood [facility] Work Phone: Globulin [Mass/volum e] in Serum [facility] Work Phone: Glucose [Mass/volume ] in Serum or Plasma [facility] Work Phone: Hematocrit [Volume Fraction] of Blood [facility] Work Phone: Hemoglobin [Mass/vol ume] in Blood [facility] Work Phone: Leukocytes [#/volume ] corrected for nucleated erythrocytes in Blood by Automated coun [facility] Work Phone: Leukocytes [#/volume ] in Blood [facility] Work Phone: Lymphocytes [#/volum e] in Blood by Automated count [facility] Work Phone: Lymphocytes/100 leuk ocytes in Blood by Automated count [facility] Work Phone: MCH [Entitic mass] b y Automated count [facility] Work Phone: MCHC [Mass/volume] b y Automated count [facility] Work Phone: MCV [Entitic volume] by Automated count [facility] Work Phone: Measurement of renal function [facility] Work Phone: Monocytes [#/volume] in Blood by Automated count [facility] Work Phone: Monocytes/100 leukoc ytes in Blood by Automated count [facility] Work Phone: Neutrophils [#/volum e] in Blood by Automated count [facility] Work Phone: Neutrophils/100 leuk ocytes in Blood by Automated count [facility] Work Phone: Nucleated erythrocyt es [Presence] in Blood by Automated count [facility] Work Phone: Patient Education [facility] Work Phone: Patient referral [facility] Work Phone: Platelet mean volume [Entitic volume] in Blood by Automated count [facility] Work Phone: Platelets [#/volume] in Blood [facility] Work Phone: Potassium [Moles/vol ume] in Serum or Plasma [facility] Work Phone: Protein [Mass/volume ] in Serum or Plasma [facility] Work Phone: Sodium [Moles/volume ] in Serum or Plasma [facility] Work Phone: Urea nitrogen [Mass/volume] in Serum or Plasma [facility] Work Phone: Payers Date Payer Category Payer Self-pay [id number] 2022 Medicaid [employer] HMO [id number] 2022-Present [phone] [address] [place] [address] [id number] 1998 Unknown [id number] 1998 Unknown [id number] 1998 Unknown [id number] 1998 Unknown [id number] 1998 Unknown [id number] 1998 Unknown [id number] 1998 Unknown [id number] 1998 Unknown [id number] 1998 Unknown [id number] 1961 Medicaid [id number] 1961 Medicaid [id number] Medicaid [id number] Medicaid [id number] Unknown [employer] Unknown O [id number] Unknown [id number] Unknown [id number] Unknown [id number] Social History Date Type Detail Facility Start: 02-18-2022 Tobacco smoking status Heavy t obacco smoker (finding) [facility] Start: 04-14-2019 End: 01-13-2024 Sex Assigned At Female [facility] Start: 10-12-2022 End: 09-24-2023 Tobacco smoking status NHIS Smoker (finding) [facility] Start: 2000 Sex Assigned At Female [facility] Start: 12-10-2022 Tobacco smoking stat us TNIS Smokes tobacco daily [facility] History of tobacco use Cigarette Smoker P [employer] [facility] Start: 12-10-2022 End: 01-13-2024 Cigarettes smoked current (pack per day) - Reported 0.3 [facility] Start: 12-10-2022 Tobacco use and exposure Smokeless tobacco non-user [facility] Start: 01-13-2024 Alcohol intake Ex-drinker (finding) [facility] Adolescent depressio n screening assessment 5 [facility] Start: 12-10-2022 Alcohol Comment social [facility] Start: 12-23-2022 Gender identity Identifies as female gender (finding) [facility] Start: 12-23-2022 Sexual orientation Heterosexual (umesh landrum) [facility] Clinical Notes 11-03-2021 to 01-25-2024 Telephone Encounter - Alicia Ohara RN - 01/25/2024 2:38 PM EDTTelephone Encounter - Alicia Ohara RN - 01/25/2024 2:38 PM EDTTstephen Crawford DO - 01/19/2024 9:20 AM EDT Note Date & Type Note Facility 01-25-2024 Miscellaneous Notes Formattin g of this note might be different from the original. Patient called to inquire if we had the results from her ultrasound. She is advised that the ultrasound was normal. She is advised to call if further needs. KYA Reyes documented in this encounter [facility] 01-25-2024 Telephone encount er Note Patient called to inquire if we had the results from her ultrasound. She is advised that the ultrasound was normal. She is advised to call if further needs. KYA Reyes [facility] 01-19-2024 History of Presen t illness Narrative CBC and CMP ordered per insurance request to refill her ibuprofen documented in this encounter [facility] 01-13-2024 Miscellaneous Notes Formattin g of this note might be different from the original. Patient will need a CBC and a CMP to check her blood counts and her liver/kidney function unknown need to continue the ibuprofen. documented in this encounter [facility] 01-13-2024 Telephone encount er Note Patient will need a CBC and a CMP to check her blood counts and her liver/kidney function unknown need to continue the ibuprofen. [facility] [employer] [facility] 01-13-2024 History of Presen t illness Narrative Subjective Patient ID: Sofia Andrews is a 23 y.o. female who is here today for annual well-woman exam. Patient does need a Pap smear today. She does report that she has been having regular menstrual cycles since her left salpingo-oophorectomy that was performed last year for a large ovarian cyst. She does state, however that her most recent menstrual cycle was heavy and painful. She is also reporting intermenstrual pelvic pain as well. Patient is not interested in taking oral contraceptive pills as she has not done well on those in the past. She does have a family history of breast cancer with a mother who has stage IV breast cancer at the age of 55. She was diagnosed in her 50s. Patient does perform self-breast exams. Chief Complaint: Well-woman exam, pelvic pain, history of left ovarian cyst with oophorectomy Menstrual History: OB History 0 Para 0 Term 0 0 AB 0 Living 0 SAB 0 IAB 0 Ectopic 0 Multiple 0 Live Births 0 Patient's last menstrual period was 01/08/2024. The following portions of the patient's history were reviewed and updated as appropriate: allergies, current medications, past family history, past medical history, past social history, past surgical history, problem list, and medication reconciliation was completed including current medication and post discharge medication. Review of Systems Constitutional: negative Respiratory: negative Cardiovascular: negative Gastrointestinal: negative Genitourinary: Needs Pap smear, pelvic pain heavy periods Hematologic/lymphatic: negative Musculoskeletal:negative Neurological: negative Behavioral/Psych: negative Objective BP 122/82 Ht 151.1 cm (4' 11.5 ) Wt 77.6 kg (171 lb) LMP 01/08/2024 BMI 33.96 kg/m General: alert, appears stated age, and cooperative Heart: regular rate and rhythm, S1, S2 normal, no murmur, click, rub or gallop Lungs: clear to auscultation bilaterally Abdomen: soft, non-tender, without masses or organomegaly Vulva: normal Vagina: normal mucosa, normal discharge, no palpable nodules Cervix: no bleeding following Pap, no cervical motion tenderness, and nulliparous appearance Uterus: non-tender, normal shape and consistency Adnexa: no mass, fullness, tenderness Breast: Symmetrical in appearance with no palpable nodules or visible lesions Assessment 1. Well woman exam with routine gynecological exam 2. Cervical smear, as part of routine gynecological examination 3. Pelvic pain 4. Dysmenorrhea Plan 1. Pap smear collected will contact with results 2. Pelvic ultrasound ordered 3. Patient instructed to take ibuprofen 800 mg Q 8 hours with food during her menses. She does have a prescription of these at home from her surgery last year. 4. if pelvic ultrasound is within normal limits briefly discuss treatment options for heavy painful periods with patient. She is to try the ibuprofen as above if this does not alleviate her symptoms she should follow-up to further discuss which treatment options she would like to pursue. 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 Excision right chest cyst 5x2 cm 2. Complex closure 5cm 3. 4. 5. Surgeon: Claudia Resident/Fellow/Other [employer]: Geraldine Anesthesia: General, 0.5% marciane Estimated Blood Loss (mL): 3cc Specimen: yes. right skin cyst Findings: sebaceous cyst removed without visible pus Patient Returned To/Condition: To RR in sat cond Attestation: Note Completion: Attending AttestationI was present for the entire procedure Electronic Signatures: Juan Taylor) (Signed 25-Apr-2022 10:40) Authored: Post Operative Note, Note Completion Last Updated: 25-Apr-2022 10:40 by Juan Taylor)[facility] 04-25-2022 NoteHistory & Physical Reviewed: /Lactating: Are [...] the note. I personally evaluated the patient [id number] Electronic Signatures: Sascha Chandler (Resident)) (Signed 25-Apr-2022 08:43) Authored: History & Physical Reviewed, ERAS, Consent, Note Completion Juan Taylor) (Signed 05-May-2022 13:45) Authored: Note Completion Co-Signer: History & Physical Reviewed, ERAS, Consent, Note Completion Last Updated: 05-May-2022 13:45 by Juan Taylor) References: 1. Data Referenced From Patient Profile - Preop v3 25-Apr-2022 08:07[facility]04-19-2022 Hospital Discharge instructions Patient Education 02/18/2022 14:56:49 Epidermal Cyst, Zcgg-mc-Smgs Epidermal Cyst An epidermal cyst is a [...] yourself. Follow these instructions at home: Take kclq-wit-vhntgjl and prescription medicines only as told by [...] the cyst, or to remove it. Take xqor-siw-cxqnzsn and prescription medicines only as told by [...] 11/26/2005 Document Revised: 02/09/2020 Document Reviewed: 07/28/2019 [employer] Patient Education 2020 [employer]. Follow Up Care 02/18/2022 11:50:54 With:Sara MCGRATH, Ernesto Brooks, FREEMAN Address: When:02/21/2022 [facility]04-19-2022 Evaluation + Plan noteExtracted from: Title:ED Note [...] With Cult Reflex XR Chest 2 Views [facility]01-02-2022 History of Present illness Narrative* Sofia Wiggins is a 21 year old female presenting to the breast center with a chronic right chest skin abscess that she would like excised. She has been receiving care at [facility]. She has had several I&D's of the [...] rest negative on 14 system review * Group Home Counselor history: Menarche age16. 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 Diagnosed at age 50. * Maternal grandfather with lung and liver cancer [facility] Work Phone: [phone]) 311-971301-02-2022 History of Present illness Narrative* Sofia Wiggins is a 21 year old female presenting to the breast center with a chronic right chest skin abscess that she would like excised. She has been receiving care at [facility]. She has had several I&D's of the [...] rest negative on 14 system review * Group Home Counselor history: Menarche age16. 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 Diagnosed at age 50. * Maternal grandfather with lung and liver cancer [facility] Work Phone: Evaluation noteNo assessment information available [facility] Work Phone: Evaluation note* Diagnosis Well woman exam with routine gynecological exam- Primary Routine gynecological examination Cervical smear, as part of routine gynecological examination Screening for malignant neoplasm of the cervix Pelvic pain Dysmenorrhea documented in this [facility] Diagnosis Medication management- Primary documented in this encounter [facility]* Diagnosis Pelvic pain Dysmenorrhea [facility] N[facility]ative - Reported* Type Description Date Medical History None Surgical History Tonsils Surgical History [place] [facility] [employer] Other History general Narrative - Reported* Type Description Date Medical History None Surgical History Tonsils Surgical History [place] [facility] Surgical History C section Hospitalization History See Above [employer] Other Hospital course Narrative No data available for this section [facility] Additional Instructions Take bybe-tqk-abxuebh cough and cold medication as needed for symptoms May take the Zofran every 8 hours as needed Use your albuterol inhaler every 4 hours as needed for wheezing cough shortness of breath Increase oral fluids Follow-up with family doctor as needed Return to the ER for significant respiratory distress chest pain vomiting or any [facility] Work [facility]: Hospital Discharge instructions Additional Instructions If your symptoms return/worsen or you develop any further concerns or symptoms please see your doctor or return to the emergency department immediately.[facility] Work Phone: Hospital Discharge instructions Additional Instructions Continue your Tylenol and ibuprofen at home Follow-up with your orthopedic physician Return if symptoms are worse[facility] Work Phone: InstructionsNot on filedocumented in this encounter [facility] filedocumented in this [facility] on filedocumented in this encounter [facility] Summary Purpose Family History No Family History Records FoundNo Family History Records FoundNo Family History Records FoundNo Family History Records FoundNo Family History Records FoundNo Family History Records FoundNo Family History Records FoundNo Family History Records FoundNo Family History Records Found Advance Directives No Advanced Directives Records Found Advance Directive Response Recorded Date/ Time Advance Directives No January 30, 2 020 10:03am Latest Code Status on File Code Status Date Activated Date Inactivated Comments Full Code 02/18/2023 2:12 PM 02/18/2023 10:40 PM Chief Complaint Right chest chronic skin abscessFollow-up infected right chest sebaceous cyst Chief Complaint and Reason for Visit Chief Complaint Vomiting, Fever, Abd pain Chief Complaint Vomiting, Fever, Abd pain fever vomiting Chief Complaint Vomiting, Fever, Abd pain fever vomiting vaginal bleeding Chief Complaint L knee pain Additional Source Comments INFORMATION SOURCE (unrecogn ized section and content) DATE CREATED AUTHOR 10/11/2018 [facility] DATE CREATED AUTHOR AUTHOR'S ORGANIZ ATION 02/19/2022 [facility] DATE CREATED AUTHOR AUTHOR'S ORGANIZ ATION 05/05/2022 [facility] DATE CREATED AUTHOR AUTHOR'S ORGANIZ ATION 05/12/2022 [employer] DATE CREATED AUTHOR AUTHOR'S ORGANIZ ATION 02/25/2023 [facility] DATE CREATED AUTHOR AUTHOR'S ORGANIZ ATION 12/03/2023 [facility] DATE CREATED AUTHOR AUTHOR'S ORGANIZ ATION 12/11/2023 [facility] DATE CREATED AUTHOR AUTHOR'S ORGANIZ ATION 01/14/2024 [facility] DATE CREATED AUTHOR AUTHOR'S ORGANIZ ATION 01/28/[address] [facility] Care Teams (unrecognized sec tion and content) Team Status: Inactive Member Role Status Dates Shauna Atkinson , Primary Care Provider Active Martinez Kumar , DO Emergency Provider Active Team Status: Active Member Role Status Dates Shauna Atkinson , Primary Care Provider Active Team Status: Inactive Member Role Status Dates Shauna Atkinson , Primary Care Provider Active Payton Hernández , [facility] Emergency Provider Active Team Status: Inactive Member Role Status Dates Shauna Atkinson , Primary Care Provider Active Joseph Wallace , Emergency Provider Active Team Status: Inactive Member Role Status Dates Shauna Atkinson , Primary Care Provider Active Alton Boss MD Emergency Provider Active [employer] Relationship Specialty Start Date End Date Shauna Atkinson DO [address] [place] [address] [id number] PCP - General Family Medicine 12/15/22 [employer] Relationship Specialty Start Date End Date Shauna Atkinson DO [address] [place] [address] [id number] PCP - General Family Medicine 12/15/22 [employer] Relationship Specialty Start Date End Date Shauna Atkinson DO [address] [place] [address] [id number] PCP - General Family Medicine 12/15/22 [employer] Relationship Specialty Start Date End Date Shauna Atkinson DO [address] [place] [address] [id number] PCP - General Family Medicine 12/15/22 Goals (unrecognized section and content) Goals may be documented in a n alternate section REASON FOR VISIT (unrecogniz ed section and content) Reason Comments Annual Exam Pt is here for annua l exam. Last pap was several years at [place]. Pt is due for pap. Gynecologic Exam Pelvic Pain Pt c/o pelvic pain w ith periods and without. Periods have been heavy. Reason Onset Date Comments Med Refill 01/13/2024 FOR RECORDS PERTAINING TO PATIENTS WHO ARE [...] BE BASED ON THE PRIMARY CLINICAL RECORDS. [email or web address] provides no warranty or guarantee of the accuracy or completeness of information in this document.
--- NOTE | 2024-06-16 11:24 | XR_ITS ---
The [address] [address] Patient Name: XENIA ANDREWS MRN: [id number] date: 2000 Sex: F Assigned Patient Location: ER Current Patient Location: ED.MAIN Accession/Order Number: [id number] Exam Date: 06/16/2024 11:30 Report Date: 06/16/2024 12:02 At the request of: JEM PAYNE Procedure: XR chest 1V EXAMINATION: XR chest 1V HISTORY: cough , fever COMPARISON: No relevant comparison available. FINDINGS: LUNGS: No significant pulmonary parenchymal abnormalities. VASCULATURE: No increased pulmonary vasculature. PLEURA: No pneumothorax, effusion, or pleural thickening. CARDIAC: No cardiomegaly or cardiac silhouette abnormality. MEDIASTINUM: No visible mass or adenopathy. BONES: No fracture or visible bone lesion. OTHER: Negative. XR/XR chest 1V IMPRESSION: 1. Low lung volume examination. No appreciable acute cardiopulmonary process. Electronically authenticated by: SHAUNA ANTHONY Date: 06/16/2024 12:02
[2024-06-16 11:36] LABS: Internal Control Within Normal Limits; SARS-CoV-2 Ag POSITIVE (NEGATIVE)
[2024-06-16 11:37] LABS: Influenza Virus A Antigen Negative; Influenza Virus B Antigen Negative; Internal Control Within Normal Limits
--- NOTE | 2024-06-16 11:41 | ED_ITS ---
HPI HPI - General Adult General Chief complaint: Upper Respiratory Infection Stated complaint: COUGH WITH BURNING, BACK PAIN Time Seen by Provider: 06/16/24 11:23 Source: patient Mode of arrival: walk-in History of Present Illness HPI narrative: The patient have a history of smoking cigarettes less than 1 pack/day is coming to us after she has been having at least for the last few days some runny nose congestion as well as cough. She does have sometimes shortness of breath on exertion No nausea no vomiting but the patient have decreased appetite for the last few days she mentioned that she has been spending a lot of time in the hospital setting after her recently has been sick, He was diagnosed with COVID-19 at the end of May The patient denies any other concerns Related Data Previous Rx's ?Medication ?Instructions ?Recorded guaifenesin 600 mg tablet, 600 mg PO Q12H PRN congestion #10 06/16/24 extended release 12 hr (Mucinex) tabs prednisone 20 mg tablet 40 mg (2 x 20 mg) PO DAILY 5 days 06/16/24 #10 tabs Allergies Allergy/AdvReac Type Severity Reaction Status Date / Time ketorolac [From Toradol] Allergy Severe Hives Verified 09/23/23 16:50 Penicillins Allergy Severe Verified 09/11/23 11:54 tramadol AdvReac Severe Verified 09/11/23 11:54 Opioid HPI Opioid Management Most Recent Opioid Data: No Data to Display Review of Systems ROS Status of ROS 10 or more systems reviewed and unremark able except as noted in history and below PFSH PFSH Social History Smoking status: Current every day smoker Exam Narrative Exam Narrative: Nurses notes and vital signs reviewed and patient is not hypoxic. General: Well-appearing and in no apparent distress. Skin: Warm, dry, no pallor noted. No rash. Head: Normocephalic, atraumatic. Neck: Supple, non-tender. Eye: Pupils are equal, round and EOMI. No scleral icterus. Ears, Nose, Mouth, and Throat: TM are clear, nasal congestion and mild erythema of the posterior pharynx,a, uvula is mid-line Cardiovascular: Regular Rate and Rhythm without murmur, gallop or rub. Respiratory: No accessory muscle use or respiratory distress. Lungs are clear to auscultation, no wheezing, rales or rhonchi Chest Wall: no tenderness Back: No midline thoracic or lumbar vertebral tenderness. No CVA tenderness Musculoskeletal: normal ROM, no calf or popliteal tenderness, no lower extremity edema/swelling GI: Abdomen is soft, non-distended. Normal bowel sounds. No masses appreciated. No tenderness to palpation. No rebound, guarding, or rigidity noted. Neurological: A&O x4. No cranial nerve dysfunction observed. No truncal ataxia. Moves all extremities. Sensation intact. Psychiatric: Cooperative and interactive. Normal mood and affect. Constitutional Vital Signs, click to edit/add: Last Vital Signs Temp 98.4 F 06/16/24 11:04 Pulse 83 06/16/24 11:04 Resp 16 06/16/24 11:04 BP 106/80 06/16/24 11:04 Pulse Ox 97 06/16/24 11:04 O2 Del Method Room Air 06/16/24 11:04 Course Vital Signs Vital signs: Vital Signs Temperature 98.4 F 06/16/24 11:04 Pulse Rate 83 06/16/24 11:04 Respiratory Rate 16 06/16/24 11:04 Blood Pressure 106/80 06/16/24 11:04 Pulse Oximetry 97 06/16/24 11:04 Oxygen Delivery Method Room Air 06/16/24 11:04 Temperature 98.4 F 06/16/24 11:04 Pulse Rate 83 06/16/24 11:04 Respiratory Rate 16 06/16/24 11:04 Blood Pressure 106/80 06/16/24 11:04 Pulse Oximetry 97 06/16/24 11:04 Oxygen Delivery Method Room Air 06/16/24 11:04 Medical Decision Making [facility] Narrative Medical decision making narrative: The patient is COVID-positive and the x-ray of the chest showed no acute pathology Patient was discharged home with supportive care prednisone as well as albuterol due to the fact that she have history of smoking cigarettes and should he have a history of shortness of breath The patient is to follow up with primary care physician in next 2-3 days or to return to the emergency department should any of the signs or symptoms worsen or new symptoms develop. The patient agrees with the following Diagnosis and Treatment plan and the patient will be discharged home. Lab Data Labs: Lab Results 06/16/24 Range/Units 11:06 Influenza Type A Ag Negative Influenza Type B Ag Negative SARS-CoV-2 Ag (CV2AG) Positive A (NEGATIVE) Discharge Plan Discharge Stand Alone Forms: Portal Instructions Chief Complaint: Upper Respiratory Infection Clinical Impression: COVID-19, Acute viral bronchitis Patient Disposition: Home, Self-Care Time of Disposition Decision: 11:43 Prescriptions / Home Meds: New prednisone 20 mg tablet 40 mg PO DAILY 5 Days Qty: 10 0RF guaifenesin [Mucinex] 600 mg tablet extended release 12hr 600 mg PO Q12H PRN (Reason: congestion) Qty: 10 0RF Print Language: Persian Instructions: Acute Bronchitis (ED), COVID-19 (Coronavirus Disease 2019) (ED) Referrals: Cheng Cruz PA [Primary Care Provider] - 1 week
[2024-06-16] MEDS: ALBUTEROL SULFATE 200 PUFF/6.7 GM INHALER IH (12:41)
[2024-06-16] MEDS: PREDNISONE 20 MG TABLET 40 MG PO (12:48)
== END 2024-06-16 12:50 | disposition home or self-care (01) ==
PROVIDERS: Emergency Provider Emergency Medicine; PCP Physician Assistant
DX: U07.1 COVID-19 (principal); J20.8 Acute bronchitis due to other specified organisms; F17.210 Nicotine dependence, cigarettes, uncomplicated
CPT/HCPCS: 71045; 87804; 87811; 94640; 99284; J7512

== ENCOUNTER 2024-07-24 07:42 | Emergency (ER) | payer OTHER, SELFPAY ==
[2024-07-24 07:48] VITALS: BP 139/89; PULSE 75; TEMP 36.6; O2SAT 98; BMI 32.3
--- OUTSIDE RECORDS SUMMARY | 2024-07-24 07:51 | XMS_ITS | CCD ---
Author Organization [facility] Care Team Providers Care Disability Specialist Name Role Phone JAGDISH ARGUELLOOVAN Unavailable Unavailable Wandy Dorado Primary Care Physician None, No PCP Unavailable Unavailable Unavailable Unavailable DO Shauna Atkinson Primary Care Provider [phone] DO Martinez Kumar Emergency Provider Betty [facility] Payton Brooks Emergency Provider [phone] DO Joseph Wallace Emergency Provider [phone] DR GIOVANA GILMORE Admitting Unavailabl e MANDO, [...] Unavailable DO Shauna Atkinson Primary Care Provider MD Alton Boss Emergency Provider [phone] Cheng Cruz Unavailable Kayley Mo Unavailable Alton Boss Attending Unavailable Shauna Atkinson Primary Care Unavailable Alton Boss Admitting Unavailable Joseph Wallace Admitting Unavailable Joseph Wallace Attending Unavailable Shauna Atkinson Primary Care Unavailable Shauna Atkinson DO Primary Care Provider [phone] TIBURCIO CRAWFORD Attending Unavailable SHAUNA ATKINSON Referring Unavailable SHAUNA ATKINSON Primary Care Unavailable TIBURCIO CRAWFORD Referring Unavailable SHAUNA ATKINSON Primary Care Unavailable TIBURCIO CRAWFORD Attending Unavailable TIBRUCIO CRAWFORD Referring Unavailable SHAUNA ATKINSON Primary Care Unavailable Allergies Allergy Classification Reported Allergen(s) Allergy Type Date of Onset Reaction(s) Facility (2 sources) Penicillin; Translations: [penicillin] Drug Allergy Anaphylaxis (disorder) [facility] (1 source) Pollen Drug allergy Respiratory function (observable entity) [facility] (5 sources) Penicillins Cross Reactors; Translations: [Penicillins [employer]] Allergy to drug (finding) [facility] Work Phone: (12 sources) Ketorolac; Translations: [ketorolac] Drug Allergy 04-29-20 hives, Anaphylaxis [facility] (11 sources) Penicillins; Translations: [Penicillins] Propensity to adverse reactions 01-22-20 Anaphylaxis [facility] (15 sources) traMADol; Translations: [tramadol] Drug Allergy 04-29-20 Anaphylaxis [facility] (1 source) Ketorolac Drug Allergy [facility] [place] [facility] Repository (3 sources) penicillAMINE Drug Allergy Unknown [facility] Other (1 source) penicillAMINE Drug Allergy 12-01-19 [facility] Repository (6 sources) Adhesive agent; Translations: [ADHESIVE] Propensity to adverse reactions to drug 01-29-20 Other (See Comments) [facility] (6 sources) Pollen; Translations: [POLLEN EXTRACTS] Propensity to adverse reactions to drug 04-07-20 [facility] Medications Current Medications Medication Drug Class(es) [...] O Q4H 3 2 September 24, 2023 [id number] actuat albuterol 0.09 mg/actuat metered dose [...] oral tablet (1 source) alpha-Adrenergic Agonist, Uncompetitive E-gocjdf-U-aspartate Receptor Antagonist, Sigma-1 Agonist Start: 12-01-2023 take [...] Marijuana Acti ve January 09, 2023 12:00am Bear (No Known Home Meds) (1 source) Start: 10-13-2022 Bear (No Kn own Home Meds) Active October [...] out, # 84 tab(s), Refills(s) 1, Pharmacy: [facility], 150, cm, 04/29/21 15:53:00 EDT, [...] Start: 04-10-2022 take 1 capsule by mo [facility] once daily Doxycycline Hyclate 100 MG Oral [...] [Animl-ridr injured by fall fr horse in [facility], init] Onset: 09-30-2018 Headache; including migraine [...] 02-18-2022 Episodic Other aftercare (1 source) Other long term care administrator (current) drug therapy; Translations: [OTH SKILLED NURSING CURRENT DRUG THERAPY] Onset: 02-24-2023 Episodic Other aftercare (1 source) Patient encounter status; Translations: [Other longterm (current) drug therapy] 01-19-2024 Episodic Other bone [...] Parmar MD on 01/20/2024 11:58 PM Normal [facility] Cytologyon 01-13-2024 Cytology Normal [facility] Comment on above: Result Comment: [facility] [address] [place] [address] Gynecologic Cytology Consultation Patient Name:SOFIA ANDREWS:2000 (Age: 23)Gender:FTaken:4Reported:01/27/2024hysician(s):Tiburcio Crawford DO ([phone])Copy To: Rec. #:[id number]: #[id number] Final Cytologic Interpretation ThinPrep Pap Test (Cervical): Satisfactory for evaluation. A transformation zone component is present. NEGATIVE FOR INTRAEPITHELIAL LESION OR MALIGNANCY. jja/01/27/2024 Interpretation performed at [facility], [address] [place] [address], License number: [id number]. 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 Source of Specimen ThinPrep Pap Test (Cervical) Thin Prep Pap (SITE ADMINISTRATOR) Fee Code(s): G0145 Outside Recordson 12-02-2023 Outside Records [id number]#1.00OTGTI [facility] COVID + FLU Quick Testingon 12-01-2023 SARS-CoV-2 (COVID-19) RNA HUMBERTO+probe Ql (Unsp spec) Negative Apparent [facility] Other COVID + FLU Quick Testing Negative Apparent [facility] Other Outside Recordson 10-01-2023 Outside Records [id number]#1.00OTGTI [facility] XR knee LT 4V*on 09-24-2023 XR knee LT 4V* [place] [address] XRay Report Signed Patient: Sofia Andrews MR#: [id number] : 2000 Acct:[id number] Age/Sex: 22 / F ADM Date: 09/24/23 Loc: ER Room: Type: [facility] ER Attending Dr: Copies to: Alton [...] Curiel Jr., D.OHawk09/24/2023 9:27 AM Dictation Location: [place] [address] Transcribed By: [facility] 09/24/23926 Dictated By: Pablo Curiel Jr DO 09/24/23926 Signed By: 09/24/23926 [facility] Outside Recordson 02-19-2023 Outside Records [id number]#1.00OTGT IFF [facility] Outside Records [id number]#1.00OTGT IFF [facility] Outside Records [id number]#1.00OTGT IFF [facility] Outside Recordson 01-12-2023 Outside Records [id number]#1.00OTGTI FF [facility] Activated partial thrombopla stin time (aPTT) in platelet poor plasma by coagulation aOrdered By: Joesph Wallace on 01-09-2023 aPTT Coag (PPP) [Time] 30.5 s 25.1-36.5 [facility] Alanine aminotransferase [En zymatic activity/volume] in Serum or PlasmaOrdered By: Joseph Wallace on 01-09-2023 ALT [Catalytic activity/Vol] 16 U/L 7-52 [facility] Albumin [Mass/volume] in Ser um or Plasma by Bromocresol green (BCG) dye binding methoOrdered By: Joseph Wallace on 01-09-2023 Albumin BCG dye [Mass/Vol] 4.4 g/dL 3.5-5.7 [facility] Alkaline phosphatase [Enzyma tic activity/volume] in Serum or PlasmaOrdered By: Joseph Wallace on 01-09-2023 ALP [Catalytic activity/Vol] 77 U/L 34-104 [facility] Amphetamine Screen Ql (U)Ord ered By: Joseph Wallace on 01-09-2023 Amphetamines Ql (U) Negative Negative [facility] Aspartate aminotransferase [ Enzymatic activity/volume] in Serum or PlasmaOrdered By: Joseph Wallace on 01-09-2023 AST [Catalytic activity/Vol] 16 U/L 13-39 [facility] Automated erythrocytes count in urine sediment (number/area)Ordered By: Joseph Wallace on 01-09-2023 RBC Auto (Urine sed) [#/Area] 10-19 [HPF] 0-4 [facility] Automated leukocytes count i n urine sediment (number/area)Ordered By: Joseph Wallace on 01-09-2023 WBC Auto (Urine sed) [#/Area] 0-1 [HPF] 0-4 [facility] Barbiturates [Presence] in U rine by Screen methodOrdered By: Joseph Wallace on 01-09-2023 Barbiturates Screen Ql (U) Negative Negative [facility] Basic Metabolic Panelon 12-31 Anion gap [Moles/Vol] 12.6 mmol/L Normal 6.0-15.0 [facility] Comment on above: Performed By: #### P T, HEPATIC, PTT, BMP, CBC, LIPASE #### [facility] [address] Calcium [Mass/Vol] 8.9 mg/dL Normal 8.6-10.3 [facility] Comment on above: Performed By: #### P T, HEPATIC, PTT, BMP, CBC, LIPASE #### [facility] [address] [place] [address] [place] Chloride [Moles/Vol] 107 mmol/L Normal 98-107 [facility] Comment on above: Performed By: #### P T, HEPATIC, PTT, BMP, CBC, LIPASE #### [facility] [address] [place] [address] [place] CO2 [Moles/Vol] 25.3 mmol/L Normal 21.0-31.0 [facility] Comment on above: Performed By: #### P T, HEPATIC, PTT, BMP, CBC, LIPASE #### [facility] [address] Creatinine [Mass/Vol] 0.57 mg/dL Low 0.60-1.20 [facility] Comment on above: Performed By: #### P T, HEPATIC, PTT, BMP, CBC, LIPASE #### [facility] [address] [place] [address] [place] Creatinine Clr Calc Pharmacy 141.51 Normal [facility] Comment on above: Performed By: #### P T, HEPATIC, PTT, BMP, CBC, LIPASE #### [facility] [address] [place] [address] [place] GFR/1.73 sq M.predicted MDRD (S/P/Bld) [Vol rate/Area] mL/min/{1.73_m2} Normal [facility] Comment on above: Performed By: #### P T, HEPATIC, PTT, BMP, CBC, LIPASE #### [address] Glucose [Mass/Vol] 85 mg/dL Normal 74-109 [facility] Comment on above: Result Comment: [facility] Glucose Reference Range is dependent on time and content of last meal. Glucose of more than 200 mg/dL in a nonstressed, ambulatory subject supports the diagnosis of Diabetes Mellitus. ADA recommended reference range Performed By: #### P T, HEPATIC, PTT, BMP, CBC, LIPASE #### [address] Potassium [Moles/Vol] 3.9 mmol/L Normal 3.5-5.1 [facility] Comment on above: Performed By: #### P T, HEPATIC, PTT, BMP, CBC, LIPASE #### [facility] [address] [place] [address] [place] Sodium [Moles/Vol] 141 mmol/L Normal 136-145 [facility] Comment on above: Performed By: #### P T, HEPATIC, PTT, BMP, CBC, LIPASE #### [address] Urea nitrogen [Mass/Vol] 12 mg/dL Normal 7-25 [facility] Comment on above: Performed By: #### P T, HEPATIC, PTT, BMP, CBC, LIPASE #### [facility] [address] Basophils Auto (Bld) [#/Vol] Ordered By: Joseph Wallace on 01-09-2023 Basophils (Bld) [#/Vol] 0.1 10*3/uL 0.0-0.2 [facility] Basophils/100 WBC Auto (Bld) Ordered By: Joseph Wallace on 01-09-2023 Basophils/100 WBC (Bld) 0.6 % . [facility] Benzodiazepines Screen Ql (U )Ordered By: Joseph Wallace on 01-09-2023 Benzodiazepines Ql (U) Positive Negative [facility] Benzoylecgonine [Presence] i n Urine by Screen methodOrdered By: Joseph Wallace on 01-09-2023 Benzoylecgonine Screen Ql (U) Positive Negative [facility] Bilirubin Test strip Ql (U)O rdered By: Joseph Wallace on 01-09-2023 Bilirubin Ql (U) Negative Negative [facility] Bilirubin.direct [Mass/volum e] in Serum or PlasmaOrdered By: Joseph Wallace on 01-09-2023 Bilirubin.direct [Mass/Vol] 0.10 mg/dL 0.03-0.18 [facility] Bilirubin.total [Mass/volume ] in Serum or PlasmaOrdered By: Joseph Wallace on 01-09-2023 Bilirubin [Mass/Vol] 0.5 mg/dL 0.3-1.0 [facility] CBC AUTO DIFFon 01-09-2023 BASO # 0.1 103/ul Normal 0.0-0.1 [facility] Comment on above: Performed By: #### C BC #### [facility] [place] [facility] [address] [place] [address] [address] Cristopher Godoy Basophils/100 WBC (Bld) 0.6 % Normal 0.2-2.0 [facility] [place] [facility] Comment on above: Performed By: #### C BC #### [facility] [place] [facility] [address] [place], [place] [address] Dr. Cristopher Godoy EO # 0.4 103/ul Normal 0.0-0.7 [facility] Comment on above: Performed By: #### C BC #### [facility] [place] [facility] [address] [place] [address] Dr. Cristopher Godoy Eosinophils/100 WBC (Bld) 2.7 % Normal 0.9-7.0 [facility] Comment on above: Performed By: #### C BC #### [facility] [place] [facility] [address] [place] [address] Dr. Cristopher Godoy Erythrocyte distribution width (RBC) [Ratio] 13.5 % Normal 11.0-15.0 [facility] Comment on above: Performed By: #### C BC #### [facility] [place] [facility] [address] [place] [address] Dr. Cristopher Godoy Hematocrit (Bld) [Volume fraction] 42.2 % Normal 36.0-48.0 [facility] Comment on above: Performed By: #### C BC #### [facility] [place] [facility] [address] [place] [address] Dr. Cristopher Godoy Hemoglobin (Bld) [Mass/Vol] 14.1 g/dL Normal 12.0-16.0 [facility] Comment on above: Performed By: #### C BC #### [facility] [place] [facility] [address] [place] [address] Dr. Cristopher Godoy IG # 0.06 10e3/ul Critically high 0.00-0.03 [facility] Comment on above: Performed By: #### C BC #### [facility] [place] [facility] [address] [place] [address] Dr. Cristopher Godoy IG % 0.4 % Normal 0.0-0.5 [facility] Comment on above: Performed By: #### C BC #### [facility] [place] [facility] [address] [place] [address] Dr. Cristopher Godoy LYMPH # 3.8 103/ul Normal 1.2-3.8 [facility] [place] [facility] Comment on above: Performed By: #### C BC #### [facility] [place] [facility] [address] [place] [address] Dr. Cristopher Godoy Lymphocytes/100 WBC (Bld) 24.7 % Normal 20.5-60.0 [facility] Comment on above: Performed By: #### C BC #### [facility] [place] [facility] [address] [place] [address] Dr. Cristopher Godoy MANUAL DIFF REQ NO Normal [facility] Comment on above: Performed By: #### C BC #### [facility] [place] [facility] [address] [place] [address] Dr. Cristopher Godoy MCH (RBC) [Entitic mass] 30.5 pg Normal 26.7-34.0 [facility] Comment on above: Performed By: #### C BC #### [facility] [place] [facility] [address] [place] [address] Dr. Cristopher Godoy MCHC (RBC) [Mass/Vol] 33.4 g/dL Normal 29.9-35.2 [facility] Comment on above: Performed By: #### C BC #### [facility] [place] [facility] [address] [place] [address] Dr. Cristopher Godoy MCV (RBC) [Entitic vol] 91.3 fL Normal 81.0-99.0 [facility] Comment on above: Performed By: #### C BC #### [facility] [place] [facility] [address] [place] [address] Dr. Cristopher Godoy MONO # 0.9 103/ul Critically high 0.3-0.8 [facility] Comment on above: Performed By: #### C BC #### [facility] [place] [facility] [address] [place] [address] Dr. Cristopher Godoy Monocytes/100 WBC (Bld) 5.9 % Normal 1.7-12.0 [facility] Comment on above: Performed By: #### C BC #### [facility] [place] [facility] [address] [place] [address] Dr. Cristopher Godoy NEUT # 10.0 103/ul Critically high 1.4-6.5 [facility] Comment on above: Performed By: #### C BC #### [facility] [place] [facility] [address] [place] [address] Dr. Cristopher Godoy Neutrophils/100 WBC (Bld) 65.7 % Normal 43.0-75.0 [facility] [place] [facility] Comment on above: Performed By: #### C BC #### [facility] [place] [facility] [address] [place], [place] [address] Dr. Cristopher Godoy Platelet mean volume (Bld) [Entitic vol] 10.8 fL Normal 9.5-13.5 [facility] Comment on above: Performed By: #### C BC #### [facility] [place] [facility] [address] [place] [address] Dr. Cristopher Godoy PLT 338 103/ul Normal 150-450 [facility] [place] [facility] Comment on above: Performed By: #### C BC #### [facility] [place] [facility] [address] [place] [address] [address] Cristopher Godoy RBC 4.62 106/ul Normal 4.20-5.40 [facility] Comment on above: Performed By: #### C BC #### [facility] [place] [facility] [address] [place] [address] Dr. Cristopher Godoy WBC 15.3 103/ul Critically high 4.0-11.0 [facility] Comment on above: Performed By: #### C BC #### [facility] [place] [facility] [address] [place] [address] ABD/PELV W CONon [...] by: SHERI ESCUDERO Date: 2023-01-09 04:[address] [facility] Calcium [Mass/volume] in Ser um or PlasmaOrdered By: Joseph Wallace on 01-09-2023 Calcium [Mass/Vol] 8.9 mg/dL 8.6-10.3 [facility] Cannabinoids [Presence] in U rine by Screen methodOrdered By: Joseph Wallace on 01-09-2023 Cannabinoids Screen Ql (U) Positive Negative [facility] Comment on above: These are unconfirme d results and should not be used for legal purposes. Drug Cut-Off Concentration: AMPH 1000 ng/mL ISAURO 200 ng/mL YULY 200 ng/mL COCM 300 ng/mL OP 300 ng/mL PCP 25 ng/mL THC 20 ng/mL Carbon dioxide, total [Moles /volume] in Serum or PlasmaOrdered By: Joseph Wallace on 01-09-2023 CO2 [Moles/Vol] 25.3 mmol/L 21.0-31.0 [facility] Chloride [Moles/volume] in S yudy or PlasmaOrdered By: Joseph Wallace on 01-09-2023 Chloride [Moles/Vol] 107 mmol/L 98-107 [facility] Color Auto (U)Ordered By: Janusz Wallace on 01-09-2023 Color (U) Yellow Yellow [facility] Complete Blood Count Auto Di ffon 01-09-2023 Basophils (Bld) [#/Vol] 0.1 10*3/uL Normal 0.0-0.2 [facility] Comment on above: Result Comment: PERF ORMED BY: [place] [address] PATHOLOGIST CONTACT CENTRE SUPERVISOR LUCRECIA NG M.D. Performed By: #### P T, HEPATIC, PTT, BMP, CBC, LIPASE #### [address] Basophils/100 WBC (Bld) 0.6 % Normal . [facility] Comment on above: Performed By: #### P T, HEPATIC, PTT, BMP, CBC, LIPASE #### [address] Eosinophils (Bld) [#/Vol] 0.6 10*3/uL High 0.0-0.45 [facility] Comment on above: Performed By: #### P T, HEPATIC, PTT, BMP, CBC, LIPASE #### [address] Eosinophils/100 WBC (Bld) 5.4 % Normal . [facility] Comment on above: Performed By: #### P T, HEPATIC, PTT, BMP, CBC, LIPASE #### [address] Erythrocyte distribution width (RBC) [Ratio] 14.2 % Normal 11.9-15.3 [facility] Comment on above: Performed By: #### P T, HEPATIC, PTT, BMP, CBC, LIPASE #### [address] Hematocrit (Bld) [Volume fraction] 43.2 % Normal 34.0-46.4 [facility] Comment on above: Performed By: #### P T, HEPATIC, PTT, BMP, CBC, LIPASE #### [address] Hemoglobin (Bld) [Mass/Vol] 14.1 g/dL Normal 11.8-15.4 [facility] Comment on above: Performed By: #### P T, HEPATIC, PTT, BMP, CBC, LIPASE #### [address] Lymphocytes (Bld) [#/Vol] 3.3 10*3/uL Normal 1.00-4.8 [facility] Comment on above: Performed By: #### P T, HEPATIC, PTT, BMP, CBC, LIPASE #### [address] Lymphocytes/100 WBC (Bld) 28.7 % Normal . [facility] Comment on above: Performed By: #### P T, HEPATIC, PTT, BMP, CBC, LIPASE #### [address] MCH (RBC) [Entitic mass] 30.1 pg Normal 24.7-34.3 [facility] Comment on above: Performed By: #### P T, HEPATIC, PTT, BMP, CBC, LIPASE #### [address] MCV (RBC) [Entitic vol] 92.6 fL Normal 80-100 [facility] Comment on above: Performed By: #### P T, HEPATIC, PTT, BMP, CBC, LIPASE #### [address] Mean Corpuscular HGB Conc 32.6 g/dL Normal 32.0-35.0 [facility] Comment on above: Performed By: #### P T, HEPATIC, PTT, BMP, CBC, LIPASE #### [address] Monocytes (Bld) [#/Vol] 0.8 10*3/uL Normal 0.0-0.8 [facility] Comment on above: Performed By: #### P T, HEPATIC, PTT, BMP, CBC, LIPASE #### [address] Monocytes/100 WBC (Bld) 16.00 % Normal 0.00-20.00 [facility] Comment on above: Performed By: #### P T, HEPATIC, PTT, BMP, CBC, LIPASE #### [address] Monocytes/100 WBC (Bld) 6.8 % Normal . [facility] Comment on above: Performed By: #### P T, HEPATIC, PTT, BMP, CBC, LIPASE #### [address] Neutrophils (Bld) [#/Vol] 6.7 10*3/uL Normal 1.8-7.7 [facility] Comment on above: Performed By: #### P T, HEPATIC, PTT, BMP, CBC, LIPASE #### [address] Neutrophils/100 WBC (Bld) 58.5 % Normal . [facility] Comment on above: Performed By: #### P T, HEPATIC, PTT, BMP, CBC, LIPASE #### [address] NRBC% 0.1 /100{WBC} Normal 0-0.5 [facility] Comment on above: Performed By: #### P T, HEPATIC, PTT, BMP, CBC, LIPASE #### [address] Platelet mean volume (Bld) [Entitic vol] 9.8 fL Normal 6.3-10.7 [facility] Comment on above: Performed By: #### P T, HEPATIC, PTT, BMP, CBC, LIPASE #### [place] [address] [place] Platelets (Bld) [#/Vol] 314 10*3/uL Normal 150-450 [facility] Comment on above: Performed By: #### P T, HEPATIC, PTT, BMP, CBC, LIPASE #### [place] [address] [place] RBC (Bld) [#/Vol] 4.67 10*6/uL Normal 3.60-5.00 [facility] Comment on above: Performed By: #### P T, HEPATIC, PTT, BMP, CBC, LIPASE #### [facility] [address] [place] [address] [place] WBC (Bld) [#/Vol] 11.5 10*3/uL Normal 3.8-11.6 [facility] Comment on above: Performed By: #### P T, HEPATIC, PTT, BMP, CBC, LIPASE #### [facility] [address] Creatinine [Mass/volume] in Serum or PlasmaOrdered By: Joseph Wallace on 01-09-2023 Creatinine [Mass/Vol] 0.57 mg/dL 0.60-1.20 [facility] Dipstick and Microscopicon 0 01-09-2023 Appearance (U) Clear Normal Clear [facility] Comment on above: Order Comment: Name Collection Type:: Clean-Voided Midstream Performed By: #### U RDS, ADDONUAPLUS, UHCG #### [facility] [address] [place] [address] [place] Bacteria,Urine None Seen Normal None Seen [facility] Comment on above: Order Comment: Name Collection Type:: Clean-Voided Midstream Performed By: #### U RDS, ADDONUAPLUS, UHCG #### [facility] [address] [place] [address] [place] Bilirubin,Urine Negative Normal Negative [facility] Comment on above: Order Comment: Name Collection Type:: Clean-Voided Midstream Performed By: #### U RDS, ADDONUAPLUS, UHCG #### [facility] [address] [place] [address] [place] Color (U) Yellow Normal Yellow [facility] Comment on above: Order Comment: Name Collection Type:: Clean-Voided Midstream Performed By: #### U RDS, ADDONUAPLUS, UHCG #### [facility] [address] [place] [address] [place] Glucose Ql (U) Normal Normal Normal [facility] Comment on above: Order Comment: Name Collection Type:: Clean-Voided Midstream Performed By: #### U RDS, ADDONUAPLUS, UHCG #### [facility] [address] [place] [address] [place] Hyaline Casts,Urine None Seen Normal 0-8 [facility] Comment on above: Order Comment: Name Collection Type:: Clean-Voided Midstream Performed By: #### U RDS, ADDONUAPLUS, UHCG #### [facility] [address] [place] [address] Ketones Ql (U) Negative Normal Negative [facility] Comment on above: Order Comment: Name Collection Type:: Clean-Voided Midstream Performed By: #### U RDS, ADDONUAPLUS, UHCG #### [facility] [address] [place] [address] Leukocyte esterase Test strip Ql (U) Negative Normal Negative [facility] Comment on above: Order Comment: Name Collection Type:: Clean-Voided Midstream Performed By: #### U RDS, ADDONUAPLUS, UHCG #### [facility] [address] [place] [address] [place] Nitrite,Urine Negative Normal Negative [facility] Comment on above: Order Comment: Name Collection Type:: Clean-Voided Midstream Performed By: #### U RDS, ADDONUAPLUS, UHCG #### [facility] [address] [place] [address] [place] Occult Blood,Urine 1+ High Negative [facility] Comment on above: Order Comment: Name Collection Type:: Clean-Voided Midstream Performed By: #### U RDS, ADDONUAPLUS, UHCG #### [facility] [address] [place] [address] [place] pH (U) 5.5 [pH] Normal 5.0-9.0 [facility] Comment on above: Order Comment: Name Collection Type:: Clean-Voided Midstream Performed By: #### U RDS, ADDONUAPLUS, UHCG #### [facility] [address] [place] [address] [place] Protein,Urine Negative Normal Negative [facility] Comment on above: Order Comment: Name Collection Type:: Clean-Voided Midstream Performed By: #### U RDS, ADDONUAPLUS, UHCG #### [address] RBC,Urine 10-19 High 0-4 [facility] Comment on above: Order Comment: Name Collection Type:: Clean-Voided Midstream Performed By: #### U RDS, ADDONUAPLUS, UHCG #### [address] Specificy [place],Urine 1.027 Normal 1.001-1.03 0 [facility] Comment on above: Order Comment: Name Collection Type:: Clean-Voided Midstream Performed By: #### U RDS, ADDONUAPLUS, UHCG #### [address] Squamous Epithelial Cell,Urine 0-1 Normal 0-2 [facility] Comment on above: Order Comment: Name Collection Type:: Clean-Voided Midstream Performed By: #### U RDS, ADDONUAPLUS, UHCG #### [address] Urobilinogen,Urine Normal Normal Normal [facility] Comment on above: Order Comment: Name Collection Type:: Clean-Voided Midstream Performed By: #### U RDS, ADDONUAPLUS, UHCG #### [address] WBC LM.HPF (Urine sed) [#/Area] 0 /[HPF] Normal 0-4 [facility] Comment on above: Order Comment: Name Collection Type:: Clean-Voided Midstream Performed By: #### U RDS, ADDONUAPLUS, UHCG #### [place] [address] [place] Drug Screen,Urineon 01-10-20 23 Amphetamine Screen,Urine Negative Normal Negative [facility] Comment on above: Performed By: #### P T, HEPATIC, PTT, BMP, CBC, LIPASE #### [address] Barbiturate Screen,Urine Negative Normal Negative [facility] Comment on above: Performed By: #### P T, HEPATIC, PTT, BMP, CBC, LIPASE #### [address] Benzodiazepines Screen,Urine Positive High Negative [facility] Comment on above: Performed By: #### P T, HEPATIC, PTT, BMP, CBC, LIPASE #### [address] Cannabinoid Screen,Urine Positive High Negative [facility] Comment on above: Result Comment: Thes e are unconfirmed results and should not be used for legal purposes. Drug Cut-Off Concentration: AMPH 1000 ng/mL ISAURO 200 ng/mL YULY 200 ng/mL COCM 300 ng/mL OP 300 ng/mL PCP 25 ng/mL THC 20 ng/mL PERFORMED BY: [place] [address] PATHOLOGIST CONTACT CENTRE SUPERVISOR LUCRECIA NG M.D. Performed By: #### P T, HEPATIC, PTT, BMP, CBC, LIPASE #### [address] Cocaine Screen,Urine Positive High Negative [facility] Comment on above: Performed By: #### P T, HEPATIC, PTT, BMP, CBC, LIPASE #### [address] Opiate Screen,Urine Positive High Negative [facility] Comment on above: Performed By: #### P T, HEPATIC, PTT, BMP, CBC, LIPASE #### [address] Phencyclidine Screen,Urine Negative Normal Negative [facility] Comment on above: Performed By: #### P T, HEPATIC, PTT, BMP, CBC, LIPASE #### [address] ER URINE PROFILEon 3 Bilirubin Ql (U) Negative Normal NEGATIVE [facility] Comment on above: Performed By: #### VEENA LOPEZ #### [facility] [place] [facility] [address] [place] [address] Dr. Cristopher Godoy Clarity (U) CLEAR Normal CLEAR [facility] [place] [facility] Comment on above: Performed By: #### DEWAYNE LOPEZRO #### [facility] [place] [facility] [address] [place] [address] Dr. Cristopher Godoy Color (U) LT. YELLOW Normal YELLOW [facility] [place] [facility] Comment on above: Performed By: #### DEWAYNE LOPEZRO #### [facility] [place] [facility] [address] [place] [address] Dr. Cristopher Godoy ERUAHD A micrscopic examina tion will be performed if indicated. Normal [facility] [place] [facility] Comment on above: Performed By: #### DEWAYNE LOPEZRO #### [facility] [place] [facility] [address] [place] [address] Dr. Cristopher Godoy Glucose Ql (U) Negative Normal NEGATIVE [facility] Comment on above: Performed By: #### DEWAYNE LOPEZRO #### [facility] [place] [facility] [address] [place] [address] Dr. Cristopher Godoy Hemoglobin Ql (U) LARGE Abnormal NEGATIVE [facility] Comment on above: Performed By: #### DEWAYNE LOPEZRO #### [facility] [place] [facility] [address] [place] [address] Dr. Cristopher Godoy Ketones Ql (U) Negative Normal NEGATIVE [facility] Comment on above: Performed By: #### DEWAYNE LOPEZRO #### [facility] [place] [facility] [address] [place] [address] Dr. Cristopher Godyo LEUKOCYTES Negative Normal NEGATIVE [facility] [place] [facility] Comment on above: Performed By: #### FATOU LOPEZICRO #### [facility] [place] [facility] [address] [place] [address] Dr. Cristopher Godoy Nitrite Ql (U) Negative Normal NEGATIVE [facility] Comment on above: Performed By: #### FATOU LOPEZICRO #### [facility] [place] [facility] [address] [place] [address] Dr. Cristopher Godoy pH (U) 6.0 [pH] Normal 5-9 [facility] [place] [facility] Comment on above: Performed By: #### E RUR, UMICRO #### [facility] [place] [facility] [address] [address] [address] Cristopher Godoy SPEC GRAVITY 1.010 Normal 1.005-<=1. 025 [facility] Comment on above: Performed By: #### E RYNER, UMICRO #### [facility] [place] [facility] [address] [address] [address] Cristopher Godoy UA PROTEIN Negative Normal NEGATIVE/ TRACE [facility] Comment on above: Performed By: #### E RYNER, UMICRO #### [facility] [place] [facility] [address] [address] [address] Cristopher Godoy UR MICRO IND INDICATED Normal [facility] Comment on above: Performed By: #### E RYNER, UMICRO #### [facility] [place] [facility] [address] [place] [address] Dr. Cristopher Godoy Urobilinogen Qn (U) 0.2 {Kevin'U}/dL Normal 0.2 - 1. 0 [facility] Comment on above: Performed By: #### Cecilia MICHELER, UMICRO #### [facility] [place] [facility] [address] [place] [address] Dr. Cristopher Godoy Eosinophils Auto (Bld) [#/Vo l]Ordered By: Joseph Wallace on 01-09-2023 Eosinophils (Bld) [#/Vol] 0.6 10*3/uL 0.0-0.45 [facility] Eosinophils/100 WBC Auto (Bl d)Ordered By: Joseph Wallace on 01-09-2023 Eosinophils/100 WBC (Bld) 5.4 % . [facility] Erythrocyte distribution wid th Auto (RBC) [Ratio]Ordered By: Joseph Wallace on 01-09-2023 Erythrocyte distribution width (RBC) [Ratio] 14.2 % 11.9-15.3 [facility] Globulin Calc (S) [Mass/Vol] Ordered By: Joseph Wallace on 01-09-2023 Globulin (S) [Mass/Vol] 2.7 g/dL [facility] Glucose [Mass/volume] in Ser um or PlasmaOrdered By: Joseph Wallace on 01-09-2023 Glucose [Mass/Vol] 85 mg/dL 74-109 [facility] Comment on above: ADA recommended refe rence rangeRandom Glucose Reference Range is dependent on time and content of last meal. Glucose of more than 200 mg/dL in a nonstressed, ambulatory subject supports the diagnosis of Diabetes Mellitus. HCG ( test) IA.rapi d Ql (U)Ordered By: Joseph Wallace on 01-09-2023 HCG ( test) Ql (U) Negative [facility] HCG,Urineon 01-09-2023 Beta HCG ( test) Ql (U) Negative Normal [facility] Comment on above: Order Comment: Name Collection Type:: Clean-Voided Midstream Result Comment: PERF ORMED BY: [place] [address] PATHOLOGIST CONTACT CENTRE SUPERVISOR LUCRECIA NG M.D. Performed By: #### U [place], [facility] #### [address] Hematocrit Auto (Bld) [Volum e fraction]Ordered By: Joseph Wallace on 01-09-2023 Hematocrit (Bld) [Volume fraction] 43.2 % 34.0-46.4 [facility] Hemoglobin [Mass/volume] in BloodOrdered By: Joseph Wallace on 01-09-2023 Hemoglobin (Bld) [Mass/Vol] 14.1 g/dL 11.8-15.4 [facility] Hepatic Panelon 01-09-2023 Albumin [Mass/Vol] 4.4 g/dL Normal 3.5-5.7 [facility] Comment on above: Performed By: #### P T, HEPATIC, PTT, BMP, CBC, LIPASE #### [facility] [address] Albumin/Globulin [Mass ratio] 1.6 {ratio} Normal [facility] Comment on above: Performed By: #### P T, HEPATIC, PTT, BMP, CBC, LIPASE #### [facility] [address] ALP [Catalytic activity/Vol] 77 U/L Normal 34-104 [facility] Comment on above: Performed By: #### P T, HEPATIC, PTT, BMP, CBC, LIPASE #### [address] ALT [Catalytic activity/Vol] 16 U/L Normal 7-52 [facility] Comment on above: Performed By: #### P T, HEPATIC, PTT, BMP, CBC, LIPASE #### [address] AST [Catalytic activity/Vol] 16 U/L Normal 13-39 [facility] Comment on above: Performed By: #### P T, HEPATIC, PTT, BMP, CBC, LIPASE #### [address] Bilirubin [Mass/Vol] 0.5 mg/dL Normal 0.3-1.0 [facility] Comment on above: Performed By: #### P T, HEPATIC, PTT, BMP, CBC, LIPASE #### [address] Bilirubin,Indirect 0.4 mg/dL Normal [facility] Comment on above: Performed By: #### P T, HEPATIC, PTT, BMP, CBC, LIPASE #### [address] Bilirubin.indirect [Mass/Vol] 0.10 mg/dL Normal 0.03-0.18 [facility] Comment on above: Performed By: #### P T, HEPATIC, PTT, BMP, CBC, LIPASE #### [address] Globulin (S) [Mass/Vol] 2.7 g/dL Normal [facility] Comment on above: Performed By: #### P T, HEPATIC, PTT, BMP, CBC, LIPASE #### [address] Protein [Mass/Vol] 7.1 g/dL Normal 6.4-8.9 [facility] Comment on above: Performed By: #### P T, HEPATIC, PTT, BMP, CBC, LIPASE #### [address] [place] [address] [facility] Ketones Auto test strip (U) [Mass/Vol]Ordered By: Joseph Wallace on 01-09-2023 Ketones (U) [Mass/Vol] Negative Negative [facility] - Chemistry and C hemistry - challengeOrdered By: Joseph Wallace on 01-09-2023 GFR/1.73 sq M.predicted MDRD (S/P/Bld) [Vol rate/Area] mL/min/{1.73_m2} [facility] - CoagulationOrde red By: Joseph Wallace on 01-09-2023 PT Coag (PPP) [Time] 10.4 s 9.0-12.9 [facility] - UrinalysisOrder ed By: Joseph Wallace on 01-09-2023 Hyaline casts LM Ql (Urine sed) None seen [LPF] 0-8 [facility] Leukocytes [#/volume] correc ifrah for nucleated erythrocytes in Blood by Automated counOrdered By: Joseph Wallace on 01-09-2023 WBC corrected for nucl RBC Auto (Bld) [#/Vol] 11.5 10*3/uL 3.8-11.6 [facility] Lipaseon 01-09-2023 Lipase [Catalytic activity/Vol] 12.0 U/L Normal 11.0-82.0 [facility] Comment on above: Result Comment: PERF ORMED BY: [place] [address] PATHOLOGIST CONTACT CENTRE SUPERVISOR LUCRECIA NG M.D. Performed By: #### P T, HEPATIC, PTT, BMP, CBC, LIPASE #### [facility] [address] Lipase [Enzymatic activity/v olume] in Serum or PlasmaOrdered By: Joseph Wallace on 01-09-2023 Lipase [Catalytic activity/Vol] 12.0 U/L 11.0-82.0 [facility] Lymphocytes Auto (Bld) [#/Vo l]Ordered By: Joseph Wallace on 01-09-2023 Lymphocytes (Bld) [#/Vol] 3.3 10*3/uL 1.00-4.8 [facility] Lymphocytes/100 WBC Auto (Bl d)Ordered By: Joseph Wallace on 01-09-2023 Lymphocytes/100 WBC (Bld) 28.7 % . [facility] MCH Auto (RBC) [Entitic mass ]Ordered By: Joseph Wallace on 01-09-2023 MCH (RBC) [Entitic mass] 30.1 pg 24.7-34.3 [facility] MCHC Auto (RBC) [Mass/Vol]Or dered By: Joseph Wallace on 01-09-2023 MCHC (RBC) [Mass/Vol] 32.6 g/dL 32.0-35.0 [facility] MCV Auto (RBC) [Entitic vol] Ordered By: Joseph Wallace on 01-09-2023 MCV (RBC) [Entitic vol] 92.6 fL 80-100 [facility] Monocyte distribution width [Entitic volume] in Blood by AutomatedOrdered By: Joseph Wallace on 01-09-2023 Monocyte distribution width Auto (Bld) [Entitic vol] 16.00 % 0.00-20.00 [facility] Monocytes Auto (Bld) [#/Vol] Ordered By: Joseph Wallace on 01-09-2023 Monocytes (Bld) [#/Vol] 0.8 10*3/uL 0.0-0.8 [facility] Monocytes/100 WBC Auto (Bld) Ordered By: Joseph Wallace on 01-09-2023 Monocytes/100 WBC (Bld) 6.8 % . [facility] Neutrophils Auto (Bld) [#/Vo l]Ordered By: Joseph Wallace on 01-09-2023 Neutrophils (Bld) [#/Vol] 6.7 10*3/uL 1.8-7.7 [facility] Neutrophils/100 WBC Auto (Bl d)Ordered By: Joseph Wallace on 01-09-2023 Neutrophils/100 WBC (Bld) 58.5 % . [facility] Nitrite Test strip Ql (U)Ord ered By: Joseph Wallace on 01-09-2023 Nitrite Ql (U) Negative Negative [facility] No Panel InformationOrdered By: Joseph Wallace on 01-09-2023 Pharmacy Creatinine Clearance (Chem 141.51 [facility] Nucleated erythrocytes [Pres ence] in Blood by Automated countOrdered By: Joseph Wallace on 01-09-2023 Nucleated RBC Auto Ql (Bld) 0.1 /100{WBC} 0-0.5 [facility] Opiates [Presence] in Urine by Screen methodOrdered By: Joseph Wallace on 01-09-2023 Opiates Screen Ql (U) Positive Negative [facility] PREG HCG QUALon 01-09-2023 , QUAL Negative Normal NEGATIVE [facility] Comment on above: Performed By: #### P REG #### [facility] [place] [facility] [address] [address] [address] Cristopher Godoy PROF CHEM 8 (BAS METB)on Anion gap [Moles/Vol] 10.6 mmol/L Normal [facility] Comment on above: Performed By: #### B MP #### [facility] [place] [facility] [address] [address] [address] Cristopher Godoy Calcium [Mass/Vol] 8.7 mg/dL Normal 8.5-10.1 [facility] Comment on above: Performed By: #### B MP #### [facility] [place] [facility] [address] [address] [address] Cristopher Godoy Chloride [Moles/Vol] 103 mmol/L Normal 98-107 [facility] Comment on above: Performed By: #### B MP #### [facility] [place] [facility] [address] [address] [address] Cristopher Godoy CO2 [Moles/Vol] 28.0 mmol/L Normal 21.0-32.0 [facility] Comment on above: Performed By: #### B MP #### [facility] [place] [facility] [address] [address] [address] Cristopher Godoy Creatinine [Mass/Vol] 0.62 mg/dL Normal 0.55-1.02 [facility] Comment on above: Performed By: #### B MP #### [facility] [place] [facility] [address] [address] [address] Cristopher Godoy EGFR-AF KENYAN >60 Normal >=60 [facility] Comment on above: Performed By: #### B MP #### [facility] [place] [facility] [address] [place], [place] [address] Dr. Cristopher Godoy EGFR-NON AF KENYAN >60 Normal >=60 [facility] Comment on above: Performed By: #### B MP #### [facility] [place] [facility] [address] [address] [address] Cristopher Godoy Glucose [Mass/Vol] 128 mg/dL Critically high 74-106 [facility] Comment on above: Performed By: #### B MP #### [facility] [place] [facility] [address] [address] [address] Cristopher Godoy Potassium [Moles/Vol] 3.6 mmol/L Normal 3.5-5.1 [facility] Comment on above: Performed By: #### B MP #### [facility] [place] [facility] [address] [address] [address] Cristopher Godoy Sodium [Moles/Vol] 138 mmol/L Normal 136-145 [facility] Comment on above: Performed By: #### B MP #### [facility] [place] [facility] [address] [address] [address] Cristopher Godoy Urea nitrogen [Mass/Vol] 13.0 mg/dL Normal 7.0-18.0 [facility] Comment on above: Performed By: #### B MP #### [facility] [place] [facility] [address] [address] [address] Cristopher Godoy Urea nitrogen/Creatinine [Mass ratio] 21.0 mg/mg Normal [facility] Comment on above: Performed By: #### B MP #### [facility] [place] [facility] [address] [address] [address] Cristopher Godoy Partial Thromboplastin Timeo n 01-09-2023 aPTT Coag (Bld) [Time] 30.5 s Normal 25.1-36.5 [facility] Comment on above: Result Comment: PERF ORMED BY: [facility] [address] [place] [address] PATHOLOGIST CONTACT CENTRE SUPERVISOR LUCRECIA NG M.D. Performed By: #### P T, HEPATIC, PTT, BMP, CBC, LIPASE #### [facility] [address] [id number] [facility] Phencyclidine Screen Ql (U)O rdered By: Joseph Wallace on 01-09-2023 Phencyclidine Ql (U) Negative Negative [facility] Platelet mean volume Auto (B ld) [Entitic vol]Ordered By: Joseph Wallace on 01-09-2023 Platelet mean volume (Bld) [Entitic vol] 9.8 fL 6.3-10.7 [facility] Platelet poor plasma interna tional normalized ratio (INR) by coagulation assay (relatOrdered By: Joseph Wallace on 01-09-2023 INR Coag (PPP) [Relative time] 0.9 {INR} [facility] Comment on above: INR Therapeutic Rang [...] 01-09-2023 Platelets (Bld) [#/Vol] 314 10*3/uL 150-450 [facility] Potassium [Moles/volume] in Serum or PlasmaOrdered By: Joseph Wallace on 01-09-2023 Potassium [Moles/Vol] 3.9 mmol/L 3.5-5.1 [facility] Protein Auto test strip (U) [Mass/Vol]Ordered By: Joseph Wallace on 01-09-2023 Protein (U) [Mass/Vol] Negative Negative [facility] Protein [Mass/volume] in Ser um or PlasmaOrdered By: Joseph Wallace on 01-09-2023 Protein [Mass/Vol] 7.1 g/dL 6.4-8.9 [facility] Prothrombin Time INRon 01-09 INR Coag (PPP) [Relative time] 0.9 {INR} Normal [facility] Comment on above: Result Comment: INR [...] T, HEPATIC, PTT, BMP, CBC, LIPASE #### [facility] [address] PT Coag (PPP) [Time] 10.4 s Normal 9.0-12.9 [facility] Comment on above: Performed By: #### P T, HEPATIC, PTT, BMP, CBC, LIPASE #### [facility] [address] RBC Auto (Bld) [#/Vol]Ordere d By: Joseph Wallace on 01-09-2023 RBC (Bld) [#/Vol] 4.67 10*6/uL 3.60-5.00 [facility] Serum or plasma albumin/glob ulin mass ratioOrdered By: Joseph Wallaec on 01-09-2023 Albumin/Globulin [Mass ratio] 1.6 {ratio} [facility] Serum or plasma anion gap de terminationOrdered By: Joseph Wallace on 01-09-2023 Anion gap [Moles/Vol] 12.6 mmol/L 6.0-15.0 [facility] Serum or plasma non-glucuron idated bilirubin measurement (mass/volume)Ordered By: Joseph Wallace on 01-09-2023 Bilirubin.indirect [Mass/Vol] 0.4 mg/dL [facility] Sodium [Moles/volume] in Ser um or PlasmaOrdered By: Joseph Wallace on 01-09-2023 Sodium [Moles/Vol] 141 mmol/L 136-145 [facility] Specific gravity Auto test s trip (U) [Rel density]Ordered By: Joseph Wallace on 01-09-2023 Specific gravity (U) [Rel density] 1.027 1.001-1.03 0 [facility] Squamous epithelial cells de tection in urine sediment by light microscopyOrdered By: Joseph Wallace on 01-09-2023 Epithelial cells.squamous LM Ql (Urine sed) 0-1 [HPF] 0-2 [facility] URINE MICROSCOPIC ONLYon BACTERIA NONE SEEN Normal NONE SEEN [facility] [place] [facility] Comment on above: Performed By: #### FATOU LOPEZICRO #### [facility] [place] [facility] [address] [place] [address] Dr. Cristopher Godoy Bacteria identified Cx Nom (U) NOT INDICATED Normal [facility] [place] [facility] Comment on above: Performed By: #### Cecilia BAUMAN UMICRO #### [facility] [place] [facility] [address] [place] [address] Dr. Cristopher Godoy CAST NONE SEEN Normal NONE SEEN [facility] [place] [facility] Comment on above: Performed By: #### Cecilia BAUMAN UMICRO #### [facility] [place] [facility] [address] [place] [address] Dr. Cristopher Godoy Crystals LM Nom (Urine sed) NONE SEEN Normal NONE SEEN [facility] [place] [facility] Comment on above: Performed By: #### Cecilia BAUMAN UMICRO #### [facility] [place] [facility] [address] [place] [address] Dr. Cristopher Godoy Epithelial cells LM Ql (Urine sed) FEW Abnormal NONE SEEN /RARE [facility] [place] [facility] Comment on above: Performed By: #### Cecilia BAUMAN UMICRO #### [facility] [place] [facility] [address] [place] [address] Dr. Cristopher Godoy MUCOUS NONE SEEN Normal NONE SEEN [facility] [place] [facility] Comment on above: Performed By: #### FATOU LOPEZICRO #### [facility] [place] [facility] [address] [place] [address] Dr. Cristopher Godoy RBC 5-10 Abnormal 0-2 [facility] [place] [facility] Comment on above: Performed By: #### Cecilia BAUMAN UMICRO #### [facility] [place] [facility] [address] [place] [address] Dr. Cristopher Godoy WBC 0-2 Abnormal NONE SEEN [facility] [place] [facility] Comment on above: Performed By: #### Cecilia BAUMAN UMICRO #### [facility] [place] [facility] [address] [place] [address] Dr. Cristopher Godoy [facility] [address] [place] [address] Ultrasound Report Signed Patient: Sofia Andrews MR#: [id number] : 2000 Acct:[id number] Age/Sex: 22 / F ADM Date: 01/09/23 Loc: ER Room: Type: [facility] ER Attending Dr: Ordering Provider: Joseph Wallace DO Date of Service: 01/09/23 US/US pelvic complete: ABDOMINAL PAIN ([id number]) US/US transvaginal: PAIN Copies to: Joseph Wallace [...] Chelsea Ceja M.D.01/09/2023 2:27 PM Dictation Location: [place] [address] Tech: Marian Mendoza Transcribed By: CHAZ 01/09/23 1427 Dictated By: Chelsea Ceja MD 01/09/23 1344 Signed By: 01/09/23 1427 Normal [facility] Urea nitrogen [Mass/volume] in Serum or PlasmaOrdered By: Joseph Wallace on 01-09-2023 Urea nitrogen [Mass/Vol] 12 mg/dL 7 [facility] Urine bacteria detection by automated methodOrdered By: Joseph Wallace on 01-09-2023 Bacteria Auto Ql (U) None seen None Seen [facility] Urine clarity by refractomet ry automatedOrdered By: Joseph Wallace on 01-09-2023 Clarity Refractometry automated (U) Clear Clear [facility] Urine glucose measurement by automated test strip (mass/volume)Ordered By: Joseph Wallace on 01-09-2023 Glucose Auto test strip (U) [Mass/Vol] Normal mg/dL Normal [facility] Urine hemoglobin detection b y automated test stripOrdered By: Joseph Wallace on 01-09-2023 Hemoglobin Auto test strip Ql (U) 1+ Negative [facility] Urine leukocyte esterase det ection by automated test stripOrdered By: Joseph Wallace on 01-09-2023 Leukocyte esterase Auto test strip Ql (U) Negative Negative [facility] Urobilinogen Auto test strip (U) [Mass/Vol]Ordered By: Joseph Wallace on 01-09-2023 Urobilinogen (U) [Mass/Vol] Normal mg/dL Normal [facility] WBC Auto (Bld) [#/Vol]Ordere d By: Joseph Wallace on 01-09-2023 WBC (Bld) [#/Vol] 11.5 10*3/uL 3.8-11.6 [facility] pH Auto test strip (U)Ordere d By: Joseph Wallace on 01-09-2023 pH (U) 5.5 [pH] 5.0-9.0 [facility] CBC AUTO DIFFon 01-05-2023 BASO # 0.1 103/ul Normal 0.0-0.1 [facility] Comment on above: Performed By: #### C BC #### [facility] [place] [facility] [address] [address] [address] Cristopher Godoy Basophils/100 WBC (Bld) 0.6 % Normal 0.2-2.0 [facility] Comment on above: Performed By: #### C BC #### [facility] [place] [facility] [address] [address] [address] Cristopher Godoy EO # 0.6 103/ul Normal 0.0-0.7 [facility] Comment on above: Performed By: #### C BC #### [facility] [address] [place] [address] Dr. Cristopher Godoy Eosinophils/100 WBC (Bld) 5.7 % Normal 0.9-7.0 [facility] Comment on above: Performed By: #### C BC #### [facility] [place] [facility] [address] [place] [address] Dr. Cristopher Godoy Erythrocyte distribution width (RBC) [Ratio] 13.6 % Normal 11.0-15.0 [facility] Comment on above: Performed By: #### C BC #### [facility] [address] [place] [address] Dr. Cristopher Godoy Hematocrit (Bld) [Volume fraction] 46.7 % Normal 36.0-48.0 [facility] Comment on above: Performed By: #### C BC #### [facility] [address] [place] [address] Dr. Cristopher Godoy Hemoglobin (Bld) [Mass/Vol] 15.2 g/dL Normal 12.0-16.0 [facility] Comment on above: Performed By: #### C BC #### [facility] [place] [facility] [address] [place] [address] Dr. Cristopher Godoy IG # 0.03 10e3/ul Normal 0.00-0.03 [facility] Comment on above: Performed By: #### C BC #### [facility] [place] [facility] [address] [place] [address] Dr. Cristopher Godoy IG % 0.3 % Normal 0.0-0.5 [facility] Comment on above: Performed By: #### C BC #### [facility] [address] [place] [address] Dr. Cristopher Godoy LYMPH # 3.3 103/ul Normal 1.2-3.8 [facility] [place] [facility] Comment on above: Performed By: #### C BC #### [facility] [address] [place] [address] Dr. Cristopher Godoy Lymphocytes/100 WBC (Bld) 29.2 % Normal 20.5-60.0 [facility] Comment on above: Performed By: #### C BC #### [facility] [place] [facility] [address] [place] [address] Dr. Cristopher Godoy MANUAL DIFF REQ NO Normal [facility] Comment on above: Performed By: #### C BC #### [facility] [place] [facility] [address] [place] [address] Dr. Cristopher Godoy MCH (RBC) [Entitic mass] 29.9 pg Normal 26.7-34.0 [facility] Comment on above: Performed By: #### C BC #### [facility] [place] [facility] [address] [place] [address] Dr. Cristopher Godoy MCHC (RBC) [Mass/Vol] 32.5 g/dL Normal 29.9-35.2 [facility] [place] [facility] Comment on above: Performed By: #### C BC #### [facility] [place] [facility] [address] [place] [address] Dr. Cristopher Godoy MCV (RBC) [Entitic vol] 91.9 fL Normal 81.0-99.0 [facility] [place] [facility] Comment on above: Performed By: #### C BC #### [facility] [place] [facility] [address] [place] [address] Dr. Cristopher Godoy MONO # 0.7 103/ul Normal 0.3-0.8 [facility] [place] [facility] Comment on above: Performed By: #### C BC #### [facility] [place] [facility] [address] [place] [address] Dr. Cristopher Godoy Monocytes/100 WBC (Bld) 6.3 % Normal 1.7-12.0 [facility] [place] [facility] Comment on above: Performed By: #### C BC #### [facility] [place] [facility] [address] [place] [address] Dr. Cristopher Godoy NEUT # 6.5 103/ul Normal 1.4-6.5 [facility] [place] [facility] Comment on above: Performed By: #### C BC #### [facility] [place] [facility] [address] [place] [address] Dr. Cristopher Godoy Neutrophils/100 WBC (Bld) 57.9 % Normal 43.0-75.0 [facility] [place] [facility] Comment on above: Performed By: #### C BC #### [facility] [place] [facility] [address] [place] [address] Dr. Cristopher Godoy Platelet mean volume (Bld) [Entitic vol] 11.1 fL Normal 9.5-13.5 [facility] [place] [facility] Comment on above: Performed By: #### C BC #### [facility] [place] [facility] [address] [place] [address] Dr. Cristopher Godoy PLT 360 103/ul Normal 150-450 [facility] [place] [facility] Comment on above: Performed By: #### C BC #### [facility] [place] [facility] [address] [place] [address] Dr. Cristopher Godoy RBC 5.08 106/ul Normal 4.20-5.40 [facility] [place] [facility] Comment on above: Performed By: #### C BC #### [facility] [place] [facility] [address] [place] [address] Dr. Cristopher Godoy WBC 11.2 103/ul Critically high 4.0-11.0 [facility] Comment on above: Performed By: #### C BC #### [facility] [place] [facility] [address] [place], [place] [address] Dr. Cristopher Godoy ER URINE PROFILEon 3 Bilirubin Ql (U) Negative Normal NEGATIVE [facility] Comment on above: Performed By: #### U MICRO, ERUR ####[facility] [place] [facility] [address] [place] [address]Dr. Cristopher Godoy Clarity (U) CLEAR Normal CLEAR [facility] [place] [facility] Comment on above: Performed By: #### U MICRO, ERUR ####[facility] [place] [facility] [address] [place] [address]Dr. Cristopher Godoy Color (U) LT. YELLOW Normal YELLOW [facility] [place] [facility] Comment on above: Performed By: #### U MICRO, ERUR ####[facility] [place] [facility] [address] [place] [address]Dr. Cristopher Godoy ERUAHD A micrscopic examina tion will be performed if indicated. Normal [facility] [place] [facility] Comment on above: Performed By: #### U MICRO, ERUR ####[facility] [place] [facility] [address] [place], [place] [address]Dr. Cristopher Godoy Glucose Ql (U) Negative Normal NEGATIVE [facility] Comment on above: Performed By: #### U MICRO, ERUR ####[facility] [place] [facility] [address] [place], [place] [address]Dr. Cristopher Godoy Hemoglobin Ql (U) SMALL Abnormal NEGATIVE [facility] Comment on above: Performed By: #### U MICRO, ERUR ####[facility] [place] [facility] [address] [place], [place] [address]Dr. Cristopher Godoy Ketones Ql (U) Negative Normal NEGATIVE [facility] Comment on above: Performed By: #### U MICRO, ERUR ####[facility] [place] [facility] [address] [place], [place] [address]Dr. Cristopher Godoy LEUKOCYTES Negative Normal NEGATIVE [facility] [place] [facility] Comment on above: Performed By: #### U MICRO, ERUR ####[facility] [place] [facility] [address] [place], [place] [address]Dr. Cristopher Godoy Nitrite Ql (U) Negative Normal NEGATIVE [facility] Comment on above: Performed By: #### U MICRO, ERUR ####[facility] [place] [facility] [address] [place], [place] [address]Dr. Cristopher Godoy pH (U) 6.0 [pH] Normal 5-9 [facility] [place] [facility] Comment on above: Performed By: #### U MICRO, ERUR ####[facility] [place] [facility] [address] [place] [address]Dr. Cristopher Godoy SPEC GRAVITY <=1.005 Abnormal 1.005-<=1. 025 [facility] [place]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 #### 2 715123, 0304832, 96873466, 66445510, 8400710 ####[facility] [address] [place] [address] Albumin/Globulin (S) [Mass conc ratio] 1.2 Normal 1.1-2.2 [facility] Comment on above: Performed By: #### 2 835288, 9686111, 25652983, 86211964, 6937336 ####[facility] [address] [place] [address] ALP [Catalytic activity/Vol] 80 Int._Unit/L Normal 21-98 [facility] Comment on above: Performed By: #### 2 737675, 5322243, 96693623, 56921174, 0988150 ####[facility] [address] [place] [address] ALT No additional P-5'-P [Catalytic activity/Vol] 46 Int._Unit/L Normal 6-46 [facility] Comment on above: Performed By: #### 2 666123, 6748638, 06824450, 71681013, 4494183 ####[facility] [address] [place] [address] AST [Catalytic activity/Vol] 37 Int._Unit/L Normal 5-43 [facility] Comment on above: Performed By: #### 2 580378, 3923373, 79284502, 87486816, 7252792 ####[facility] [address] [place] [address] Bilirubin [Mass/Vol] 0.8 mg/dL Normal 0.0-1.1 [facility] Comment on above: Performed By: #### 2 919899, 0396614, 21322542, 11287784, 9822510 ####[facility] [address] [place] [address] Creatinine [Mass/Vol] 0.7 mg/dL Normal 0.5-1.3 [facility] Comment on above: Performed By: #### 2 523985, 8904631, 72098598, 78847871, 6013254 ####[facility] [address] [place] [address] Globulin (S) [Mass/Vol] 3.6 g/dL Normal 1.4-4.0 [facility] Comment on above: Performed By: #### 2 702703, 8363608, 83587892, 59132048, 5279613 ####[facility] [address] [place] [address] Protein [Mass/Vol] 7.9 g/dL High 6.0-7.8 [facility] Comment on above: Performed By: #### 2 118687, 9585578, 93598778, 17367403, 5291097 ####[facility] [address] [place] [address] Urea nitrogen [Mass/Vol] 11 mg/dL Normal 5-21 [facility] Comment on above: Performed By: #### 2 042135, 7581167, 67309847, 63143029, 3077524 ####[facility] [address] [place] [address] Urea nitrogen/Creatinine [Mass ratio] 16 No Units Normal 10-20 [facility] Comment on above: Performed By: #### 2 247802, 2841834, 59212558, 85768859, 9505404 ####[facility] [address] [place] [address] Anion gap [Moles/Vol] 12 mmol/L Normal 6-16 [facility] Comment on above: Performed By: #### 2 255054, 5174182, 14773890, 14936213, 0702326 ####[facility] [address] [place] [address] Calcium [Mass/Vol] 9.6 mg/dL Normal 8.9-11.1 [facility] Comment on above: Performed By: #### 2 981673, 0805576, 89615466, 97775149, 6771632 ####[facility] [address] [place] [address] Chloride [Moles/Vol] 105 mmol/L Normal 101-111 [facility] Comment on above: Performed By: #### 2 803763, 2569135, 10096972, 52432133, 0814404 ####[facility] [address] [place] [address] CO2 [Moles/Vol] 27 mmol/L Normal 21-31 [facility] Comment on above: Performed By: #### 2 865000, 9678182, 17687060, 06869528, 8717615 ####[facility] [address] [place] [address] Glucose [Mass/Vol] 69 mg/dL Normal 55-199 [facility] Comment on above: Result Comment: If t his glucose result represents a fasting glucose, interpretation should refer to the following reference range: 55-99 mg/dL Performed By: #### 2 836330, 8654675, 14804520, 59747229, 4026477 ####[facility] [address] [place] [address] Potassium [Moles/Vol] 3.9 mmol/L Normal 3.5-5.3 [facility] Comment on above: Performed By: #### 2 334086, 5911587, 93621385, 17296772, 9315145 ####[facility] [address] [place] [address] Sodium [Moles/Vol] 140 mmol/L Normal 135-145 [facility] Comment on above: Performed By: #### 2 073300, 7469291, 45516833, 45912679, 5355721 ####[facility] [address] [place] [address] Consent for Treatmenton 01-31 Consent for Treatment [id number]#1.00CD:12 7 Normal [facility] Discharge Instructionson Discharge Instructions [id number]#1.00CD:1 27 Normal [facility] ED Clinical Summaryon 2021 ED Clinical Summary (Inserted Image. Kelsy ble to display) [place] [id number] ED Clinical Summary Person Information Name: SOFIA WIGGINS/Araceli Age: 21 Years : 2000 Sex: Female Language: Tanzanian PCP: Wanyd Dorado DO Marital Status: Single Visit Id: [...] 02/18/2022 15:44:15 02/18/2022 15:44:15 02/18/2022 15:44:15 ADDRESS: [address] [place] [id number] PHYS DOC NOTES: MEDICAL INFORMATION: Prescriptions Given: PATIENT EDUCATION INFORMATION: Instructions: Epidermal Cyst, Wtmz-lc-Uvut Follow up: With: Address: When: Sara MCGRATH, [place] In 3 days 02/21/2022 DIAGNOSIS: 1:Epidermoid cyst of skin of chest; 2:Chest pain Normal [facility] ED Note-Physicianon 02-19-20 ED Note-Physician Basic Information [...] few weeks ago she was seen at [facility] ED and had an abscess [...] will also work on obtaining labs from [facility]. Patient to be given morphine and Zofran for her pain. Aspirin for her chest pain. Vital Signs: Reviewed the patient's vital signs. Nursing Notes: Reviewed and utilized the nursing notes. Amf Mechanic: not needed - patient preferred language is Tanzanian. Old Medical Records: The patient's available past medical records and past encounters were reviewed. Summary of pertinent elements include: Patient was initially seen on 01/08/2022 for an abscess of her chest wall. These records were not sent to us. [facility] sent over two most recent visits [...] Percocet prescri (more content not included)... Normal [facility] Comment on above: Result Comment: Elec tronically [...] Follow these instructions at home: ? Take nwbz-qch-clohpcq and prescription medicines only as told by [...] cyst, or to remove it. ? Take xwjm-spm-mbknigj and prescription medicines only as told by [...] 11/26/2005 Document Revised: 02/09/2020 Document Reviewed: 07/28/2019 [employer] Patient Education ? 2019 [employer] Normal [facility] ED Patient Summaryon 022 ED Patient Summary (Inserted Image. Kelsy ble to display) [place] [id number] Patient Discharge Instructions Person Information Name: SOFIA WIGGINS Age: 21 Years Arrival Date: 02/18/2022 11:49:36 Discharge Diagnosis: 1:Epidermoid cyst of skin of chest; 2:Chest pain Primary Care Physician: Wandy Dorado DO Provider Information Primary Provider: Cheng Saldaña DO Advanced Offset Assistant Press Operator:Fabi Iraheta PA-C The exam and treatment you received in the Emergency Department were for an urgent problem and are not intended as complete care. It is important that you follow up with a doctor, nurse practitioner, or physician?s blood donor unit assistant for ongoing care. If your symptoms [...] participating provider. Patient Education Materials: Epidermal Cyst, Prds-zf-Cgcp A MESSAGE TO ALL PATIENTS REGARDING OPIOIDS PRESCRIPTION OPIOIDS: WHAT YOU NEED TO KNOW Prescription opioids can be used to help relieve yykyvart-vv-bncgkb pain and are often prescribed following a [...] be struggling with addiction, tell your health career development engineer and ask for guidance or call [facility] National Helpline at 8-721-719-TXZA. i Source: [place] Department of Health and (more content not included)... Normal [facility] HEMATOLOGYOrdered By: SYSTEM SYSTEM on 02-18-2022 Basophils/100 [...] [facility] HemeAutoSS Outside Recordson 02-18-2022 Outside Records [id number]#1.00CD:1 27 Normal [facility] Prescriptions/Work Noteson 0 02-18-2022 Prescriptions/Work Notes [id number]#1.00CD:1 27 Normal [facility] SEROLOGYOrdered By: Tod For ster on 02-18-2022 HCG.beta subunit (U) [Moles/Vol] Negative Normal [facility] Man Sero Troponin 0 Hr.on 02-18-2022 Troponin I.cardiac [Mass/Vol] ng/mL Low 10.10-27.1 0 [facility] Comment on above: Result Comment: The 95% CI (Confidence Interval) PPV (Positive Predictive Value) for myocardial infarction in females is 38 pg/mL, in males 51 pg/mL. The results should be used in conjunction with clinical conditions of myocardial infarction. (Access High Sensitivity Troponin I Instructions For Use, Agrivida, June 2018) Performed By: #### 2 619084, 4753710, 52521607, 53134681, 4336610 ####[facility] [address] [place] [address] U BetaHcg Qualon 02-18-2022 HCG.beta subunit (U) [Moles/Vol] Negative Normal [facility] Comment on above: Performed By: #### 2 4735414, 30273434 ####[facility] [address] [place] [address] UA With Cult Reflexon 2021 Epithelial cells.squamous LM.HPF (Urine sed) [#/Area] 0-2 Normal 0-2 [facility] Comment on above: Performed By: #### 2 5393416, 99209523 ####[facility] [address] [place] [address] [place].plasma/[place] .RBC (Bld) [Mass ratio] 0-3 Normal 0-3 [facility] Comment on above: Performed By: #### 2 2899722, 00628204 ####[facility] [address] [place] [address] WBC LM.HPF (Urine sed) [#/Area] 0-5 Normal 0-5 [facility] Comment on above: Performed By: #### 2 6880101, 26982391 ####[facility] [address] [place] [address] Bilirubin Ql (U) Negative Normal Negative [facility] Comment on above: Performed By: #### 2 5488241, 34127303 ####[facility] [address] [place] [address] Clarity (U) CLEAR Normal Clear [facility] Comment on above: Performed By: #### 2 6639816, 54874891 ####[facility] [address] [place] [address] Color (U) STRAW Invalid Interpretation Code [facility] Comment on above: Performed By: #### 2 3372857, 56657340 ####[facility] [address] [place] [address] Glucose Test strip (U) [Mass/Vol] Negative Normal Negative [facility] Comment on above: Performed By: #### 2 4271539, 24867635 ####[facility] [address] [place] [address] Hemoglobin Ql (U) TRACE Abnormal Negative [facility] Comment on above: Performed By: #### 2 1549007, 77045789 ####[facility] [address] [place] [address] Ketones (U) [Mass/Vol] Negative Normal Negative [facility] Comment on above: Performed By: #### 2 5044099, 61927768 ####[facility] [address] [place] [address] Nitrite Ql (U) Negative Normal Negative [facility] Comment on above: Performed By: #### 2 0728897, 71909827 ####[facility] [address] [place] [address] pH (U) 6.5 [pH] Invalid Interpretation Code 5.0-9.0 [facility] Comment on above: Performed By: #### 2 6284128, 82551497 ####[facility] [address] [place] [address] Protein (U) [Mass/Vol] Negative Normal Negative [facility] Comment on above: Performed By: #### 2 4488458, 44807181 ####[address] [address] Specific gravity (U) [Rel density] <=1.005 Invalid Interpretation Code 1.005-1.03 0 [facility] Comment on above: Performed By: #### 2 [id number], [id number] ####[address] [address] Type of Urine collection method Random Urine Normal [facility] Comment on above: Performed By: #### 2 [id number], [id number] ####[address] [address] Urobilinogen Qn (U) 0.2 {Kevin'U}/dL Normal 0.0-1.0 [facility] Comment on above: Performed By: #### 2 [id number], [id number] ####[address] [address] WBC Auto Ql (U) Negative Normal Negative [facility] Comment on above: Performed By: #### 2 [id number], [id number] ####[facility] [address] [place] [id number] URINALYSISOrdered By: Tod camp on 02-18-2022 Bilirubin [...] PM) Normal Negative [facility] UA Auto SS [place].plasma/[place] .RBC (Bld) [Mass ratio] 0-3 /HPF Normal [...] FT UA Auto SS Urobilinogen Qn (U) 0.2334019 {Kevin'U}/dL Normal 0.0 - 1.0 EU/dL [facility] [...] M.D. Transcribed by: DARWIN Technologist: KENYA Metcalf [facility] eGFRon 02-18-2022 GFR/1.73 sq M.predicted among blacks MDRD (S/P/Bld) [Vol rate/Area] mL/min/{1.73_m2} Normal >=59 [facility] Comment on above: Order Comment: Order added by Discern Expert. Result Comment: eGFR is race adjusted. AA=. Performed By: #### 2 [id number], [id number], [id number], [id number], [id number] ####[facility] [address] [place] [address] GFR/1.73 sq M.predicted among non-blacks MDRD (S/P/Bld) [Vol rate/Area] mL/min/{1.73_m2} Normal >=59 [facility] Comment on above: Order Comment: Order added by Discern Expert. Result Comment: Conference Service Coordinator zhao kidney disease could be indicated at eGFR's of less than 60 mL/min/1.73m2. Kidney failure is indicated at less than 15 mL/min/1.73m2. Performed By: #### 2 [id number], [id number], [id number], [id number], [id number] ####[facility] [address] [place] [address] Coding Summary.on 04-30-2021 Coding Summary. [id number] Gh0bW w+PGhlYWQ+FV1SWHQxQ95cgKP jhY4KD8hEVB6YNEZSSZVVTX5V ZC4emBT1VBfyZ2SrmnAw ZqeqrIDaQH76VVb9DZF1mKueC LykoE2hsJExL4b6AeHlUG75xV 94KDndDPOlZyS5HiWmtcifiUQ y G1wnEnRikPKeCby+PHRhYmxlI HdpZHRoPScxMDAlJyBzdHlsZT 4zFf6jHDUeXXUeaGzfdSPtGiY j i2zeIAFfKRuqBL8xpMjcG5Rja XB3ZUAfz0a3Fq80yLX+PHRkIH F8hTqcXPtkz842FiZdc8mwYXE 3 tBOnDJadLYX1X02nu1U0IRXaL QUjODQ1aWM1fG5vmSxmwoaxK4 XqvTOmAwT3HVG4bGChxQ8dtAg n frrfoF1oDxz+O15CYL9BEIGXL O2OCzc5D5TaWuodvAM+PC90YW OwQL69iOIcaVByn4bneBv2GhS w CDRjOHZ8rOlpJSxxd7UsHMYsH 68rcPGjr2K2FKRhyIgnhEWkWj VwwYV7gB5iOIqrxbsss6oxkuz n Vtahk0mefa04bF57R88iZWeoV BUqASS1WYYeIKUpiFrfnx2xwB 9wIi8+DRsab7tht0shbRx4YsQ w NCYbtkMoiLasBSW4b4ZqMu08N 1PvfFsyw6CwJho7fl54kCKaw3 Q0nFX0OAtiQAOciP1nWWxdDiG 6 LWCfAnZqjG82sWTgSRfaMb6ng JpbvCfgND4jRFYjqyrbEOCzhA 1rHKTyfJXmbXuzUY0wSQDxcuh m f857ReExTQO5LPBqmANcD0Nxd C2nIoQnROYyVJDdA1UitKXwAX eqK009MYnjEuL0CTCutsQuA2D s GOTfbProKgC5o4W6My5Id1Ljn ciwRXL5PCdbKNT2QnR2QiWfSk R5E0FhPim2OQIkaMshXZ9sQ0P h GVUgvcaoempcyPQ4MINyZHHnw O21qPNwYJddFb9kz4C1l009VH XbBJAihI23Iq4twXybYWQhkDI U sD9gwdhcl0rfltlfLcMqGSQlU Ci0HIl5KXXnnFlmTkYlPOG9Fg P6JQM3dHRogF9rbRzpiwxriK0 w Oyc+R45fuC2pTUC0NEN8kgbvK ZDfztIgKU46BD44C1IxTpvicM FibGU+LWGntlLbcZpzLA4vJfT j t1dqr3HnLLgaA5BmIBBjEHqyK qv4FFYiMFG2gLC0sY8rWISpSO msr4Y8eBY8G4AtfpKutb8en2m s PCAnCLyrV29rpMWfq1H2MTFif TN0SFGvqTfhNhWcnJ00Nxo+PG RfpPlec0IjHfsvk6smh4pnsPc 9 JiSyVAHlltPumBihIMV1d4NfS u80E39oOXyaWEYcJXOsTNUoAR QihNmpig9vsI4oMa1+PGNvbCB 3 oDX8rQ4cEMNwTtE1GUjiW591S mJwuCNbDuhwm8jsg5pbpDt5Nf HlIXAhhgCdhNrtWYC3o0MeDm2 8 M27vMPdfJNCzGPNpLGZjJDAxw Gguxu4vuA8aXp1+UP6up2awqo 61aA94iTD+GFTwWAM8lTohOCf w XOWzvS3lUIxyOwI8PSPdMnBzx T51jGBnNBsxFw6zsQkqcWqwLM 9jJBYlduyxh400TaLpx7dbEMN w wMPqJHdxEJA9Y53sd9O0ADLcX BNlDXQ7oEI2uB3hzNccppmbaM JpyVgybyWkbGjwBBvxQLbcU53 6 IHRvcDsnPlBhdGllbnQgTmFtZ Du9A8OeYhf2GXDyoPzxOD6smM SqZYedYo2jwFrpoGqhOD4dRAM p yxlch817KcKvy3tjPRAteIFrG UziSLB3K23ve9P4IMBlYLZnAG F9zUQ9aB8ikHhcuxfpsUMirJh g fpWydDjcXFhnLWdzF350XQBih PsrWrAsrmQzKNOvlIL9LO05IW 30gLDji3U4uHR1M0KuWAHtwbc t zjjilVN6ICPcSGJtqW68Wp5ff VorLg2rZSSlZWI1NPFdySIyM8 UtzC8nXhOuVLUmSLQdA3MssGM t TUhsQ823GXmdBrX5GOOarfVzJ 1VkWTIrcJffAoT1l9Z2Ty5MQ2 H5SP94PF08tXLky3L2kKO7N5W h FUFvpdveiookcYD3ZSBiNHXzd G96Qt6gmZxuWc7pLTVlLME7UL DfoVNwD5AweX2bHaGdJUVzQYS w K2GtqCCeYMwpI575BDbwNnO4U SMsflEjU3TwFOLiiDnlYiL0l5 H3Qs3UXNu4QE53TI26mTTeq5Q 5 qVW1M5YaQIImofmttjaflNK3B UAyNASqgK56Sc8sjBhhHs7xVO VsQYN3PCUocECoC2RygT9fRxV j NAZpTUDaZ6UqtFUiDGsdG095O XkxUvP0PQLrgzZfR1NhWAFrgP fwDbV0l2M8Ls5QXZTwDL34VXK 5 wSF3MD79PF53L8AwSazuwMDam +PHRhYmxlIHdpZHRoPScxMD PqWqXabTwmJU6xTp2rMUDiVDX v iQjbzMOuXqDmz8ooFVYjWRjoM Q0ncQafC6SqeJK8VZGgs8v8Ki 11P41uZ2CxzYL+UNLsaNI2tZJ 0 wY1kQmVbIcY5BCdsH430YeWwq XVoJqnls7cfb3mplNd2OmG6FX AbclZmyVpoGSQ7j7GmMj60Z70 s IHdpZHRoPSIxNSUiIHZhbGlnb m8jsY9uNt3+ZGBpqIM9iCO9tE 9tNaHdRcP4VJxkB005TyHavFU v Vomjn7xng8agsQp5PyBuHORst hDmkFewDYW0g0GrTn01H8YpaQ xpf0HnOvo4hi95gWHxg9D5iNO 9 B3XuJKXbvwjcyJVcgOxqJX8zJ SKmtnjpXFKcpR4qRCOwN3o0Nl SgWkU8WIflD4WvuxF4UFQvjDQ g ESggLGQ2H95sa2N4UEWkPIDbZ VD8eKM3dV5ppDlmhfvgxPXwlK uuskBxuNojOBotDStkT970OFU v sLduVUVmmB0kGJJqqVBnySbgT C1xNGJjpryqYxDHUWAiFE4PR9 9MRVRURTwvdGQ+GOPjIAS0wEf l JLquAIVdzJ3iOQSyX4t4YsJdP xH1CKdpT9MbTHDuxtkjLu28jK 0pEoQjFwZ5MDmnX2GfinI3CNQ w zMJaQVhuURX9T40es3K1QMIuI SRlQSI3nFN3mB2azZyrykuifN PpfPwkgrLsjDuvCSgbYYbbG55 6 HSJthRgfWnYwBtKzSyK4XQp3A 4AmMde9LPJqeNfdDE5diHBzVF hkAa6dkXyhzRywQI4pKOGakjb w FTHjfR5rLTLnwPGfhPfnHK1aF JKkkxhra935MiQiAVD5UHNbxG NeL9EnwS7vVfYcDLAfKIVrJ7N l nGBiFCtyB717NMnmWyL4MIWdv qVpD5EyKNEzxQamSmW4n2A8Fh 4yMiBZZWFyczwvdGQ+PHRkIHN 0 dAfsEPxnNROivA7mKKVtM5p0R zMePgR8XVmsK1CeIGNfbxgtFo 75nD1vVbCdPgV8JQqvR3PbydN 6 MOMkoQBmKXanIVJ1A30ln2Z7D WZuAZJbAAD4sGD4tW6lmEpnnb ogbGVmdDsgdmVydGljYWwtYWx p G738AAInlVtjZlWdnTQqMOyjo GQ+VUWcAAJ7cPtrSHutWGPxsK 3tDSAcQ9l8HbUgOjD8FOsgE2A h KMEpxrtfDc44gC9oNvIxEoO0B VzmJ0YsjiU8OKFjbSZmBJkzWR D6O98pk0C9PLZrKLBeFNX0eXY 4 jC9tiRpxhyuwlAZtrTvokmYvy CtaVTmxAMzaD336RRXwrJlvCv DkHYJrLE4brImpiLF+ZM54mt5 8 O4OzLefxSrs4CPVdLKJ9gJV8x C9xBFNpLMakt6J8bFW3E3Hazn Ebto1zj7jnEEJjOHodY78foGG w v5A4SXKlyEL6YNVuiVozBrXzs G93Oyc+HXXphCnoj6RkLelfa6 tpz1tzcLu5YcUwXTWucvQhbDn u KUJ5c6IaVq76Z94rRMyvYRRjJ WSlVHHaYYAegXvtgh8wyV9nOw 8+CLMakDW4rZY8fQ5mKeLoDqS 2 GLvlP231AsCnvGMmYhzuu2azr 9ddtEn3NaQaBHNekoPkpOpcQK I1e7LbUh21T9TnqNxqp4PbOtt 0 yo12jFLam2W7ySE6S2WwJXKgc yagjEStiLzgNR1gYSGtsuilOR OrhQ2fDYKeO2u3DuCkEyV0KFz u R9OxqaY5WNUhxJMxXLQptMMNz R7fowfsk0fknlgeSgRwOOXqOB h3BKo5UGOzhVeyQkStSEH3DsF 2 BBP1yWMrlL4nwHegtmxqfY4hU yc+WGm3m0poiGCqNT3fzRU3DJ 62GW23xMWqd2L9nGI2H2TwBTT p ygbtcqljaPH6BAGxAGDoaQ74Z t9cdWkoDa6pHYHqLQK5JEXtsU OlO5RxuZ4jPnXyMEZjYYReO2Z l cFWoZHpuT942UEntUbI0UPRte jCbT6LmFBGrvYeeKtP6f7B4Po 9VMV16FG89KV50gNHxw3D8tBK 9 W1OiBIWmlwujwvuvcNL4DCTqB VXiqB34Gn6dtAbzLk8xXUUiEF M9FKIydRZxH7JcuH2vUkMcKNE w WWPoY9TgzQNeZFcoU277THqdP oN6OBRwhtVkA1LpGIWlnMcpBq J8g4K3Ya0VPu46CU57UU86fZG g i0K6nFU8X5NvADKajdiqwfvwu PF1TDCvXCSybV19Te3lsHjbWs 1uYGKcHJS5KJKknYIaB5HdtV5 y GaQvFQMtFYKwU4QlpFAbWRhqA 531OMkpIpD1BXGxhdWzO0ThLH WbwWrjYfT2p6X2Jp3GBKnfhkl 8 S3QyVikmaXO+EM37COUfAB32k LCvqCIja1bfoZu4GcJnFGHuUX L5zOlhCDtou5JrPJXmS35wrUF w c2U6 (more content not included)... [facility] ED Note-Physicianon 04-30-20 ED Note-Physician Basic Information [...] Appropriate mood & affect. Integumentary: Warm, Dry, Wild [place] Medical Decision Making Plain film x-rays were [...] EDT [address] [place] [address]- Business (1) Additional Instructions: Ice to the [...] available. Diagnostic Results No qualifying data available. [facility] Comment on above: Result Comment: Elec tronically [...] Lance M.D. Transcribed by: DARWIN Technologist: ZAK [facility] Consent for Treatmenton 04-03 Consent for Treatment [id number]:12 7 [facility] Discharge Instructionson Discharge Instructions [id number]:127 [facility] ED Clinical Summaryon 2020 ED Clinical Summary (Inserted Image. Kelsy ble to display) [place] [id number] ED Clinical Summary Person Information Name: SOFIA WIGGINS/New_Dg Age: 20 Years : 2000 Sex: Female Language: Tanzanian PCP: Wandy Dorado DO Marital Status: Single [...] 04/29/2021 17:51:20 04/29/2021 17:51:20 04/29/2021 17:51:20 ADDRESS: [address] [place] [address] [facility] [id number] PHYS DOC NOTES: MEDICAL INFORMATION: Prescriptions Given: [...] When: Wandy Munroe, [address] [place] [address] Business (1) In 3 days 05/02/2021 Comments: Ice to the wrist, wear the splint at all times. Medications as directed. DIAGNOSIS: 1:Tendinitis of wrist; 2:Left wrist pain [facility] ED Patient Education Noteon 04-29-2021 ED Patient [...] by your health care provider. ? Take hknh-jwx-ojmcmph and prescription medicines only as told by [...] Reviewed: 03/09/2019 Elsevier Patient Education ? 2020 [employer] Wrist Pain, Adul (more content not included)... [facility] ED Patient Summaryon 021 ED Patient Summary (Inserted Image. Kelsy ble to display) [address] [id number] Patient Discharge Instructions Person Information Name: SOFIA WIGGINS Age: 20 Years Arrival Date: 04/29/2021 15:18:05 Discharge Diagnosis: 1:Tendinitis of wrist; 2:Left wrist pain Primary Care Physician: Wandy Dorado DO Provider Information Primary Provider: Alton Francisco DO Advanced Offset Assistant Press Operator:Andrew Rainey PA-C The exam and treatment you received in the Emergency Department were for an urgent problem and are not intended as complete care. It is important that you follow up with a doctor, nurse practitioner, or physician?s blood donor unit assistant for ongoing care. If your symptoms [...] Follow-up Instructions: With: Address: When: Wandy Dorado [facility] [address] , [address] [id number] [facility] (1) In 3 days 05/02/2021 Comments: [...] opioids can be used to help relieve fpuqugbw-ga-hpmcmy pain and are often prescribed following a [...] your he (more content not included)... [facility] Ambulatory Clinical Summaryo n 04-12-2021 Ambulatory Clinical Summary {[id number]}C [id number] [facility] Family Medicine Video Visit - Telehealthon 04-09-2021 [...] Contact Information Barbara Sen Only if needed [email or web address] Additional Instructions: Patient Education Health Maintenance, Female [...] Wandy Grigsby MA 04/09/2021 15:52 EDT [facility] Comment on above: Result Comment: Elec tronically [...] Ask your heal (more content not included)... [facility] Provider Letteron 04-09-2021 Provider Letter (Inserted Image. Kelsy ble to display) April 09, 2021 SOFIA WIGGINS [address] [place] [address] To Whom It May Concern, Please excuse above patient from work. Date of Illness: From: 04/03 To: 04/09 May Return to Work On:04/10 Sincerely, Family Medicine [place] [address] [place] [address] [facility] CHEST, SPECIAL VIEWS(AMANDAUB/Carlos RODRIGUEZ)on 09-30-2018 CHEST, SPECIAL VIEWS(AMANDAUB/UMAIR) Name: SOFIA WIGGINS STUDY:CHEST, SPECIAL VIEWS(DEBUB/UMAIR); 09/30/2018 7:06 pm INDICATION:Signs/Symptoms : fall off hosre. COMPARISON:None. ORDERING CLINICIAN:JOHNIE WELLINGTON FINDINGS: CARDIOMEDIASTINAL SILHOUETTE:Cardiomediasti nal silhouette is normal in size and configuration. LUNGS:Lungs are clear. BONES:No acute osseous changes. IMPRESSION:1. No evidence of acute cardiopulmonary process.Electronically signed by: ARACELI GONZALEZ MD [facility] CT C-SPINE WO CONTRASTon CT C-SPINE [...] sinuses.Electronically signed by: JUAN JASSO MD [facility] CT HEAD WO CONTRASTon 2017 CT [...] Electronically signed by: JUAN JASSO MD [facility] PELVIS, 1 OR 2 VIEWSon 09-30 PELVIS, 1 OR 2 VIEWS t Name: SOFIA WIGGINS STUDY:PELVIS, 1 OR 2 VIEWS; 09/30/2018 7:06 pm INDICATION:Signs/Symptoms : fall off horse last night. COMPARISON:None. ORDERING CLINICIAN:JOHNIE WELLINGTON FINDINGS:AP pelvis. The osseous structures and soft tissues appear normal. Nofracture or dislocation is noted IMPRESSION:Unremarkable pelvis Electronically signed by: ARACELI GONZALEZ MD [facility] Provider Note - ED v2on 09-03 [...] signs ofdeformity. No edema.Skin: Warm and dryNeuro: reimbursement liaison are grossly intact. No facial asymmetry. Moves [...] intranscription may be present.Please call if questions. Johnei Wellington, [facility] Medicine, PGY 3 HISTORY OF PRESENTING ILLNESSSOFIA [...] a day SIGNIFICANT EVENTS: No documented data. 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 Data Referenced From Triage - ED 09/30/2018 06:34 PM [facility] Risk Screen - Adult Emergenc yon 09-30-2018 Risk Screen - Adult Emergency Preferred Language:Preferred Language: Preferred Language for Discussing Health Care (patient/designee)Tanzanian Advanced Directives: Advance Directive Medicalno Advance Directive [...] Learning Preferencesverbal instruction Cultural Considerationsnone Developmental Considerationsnone Taoist Considerationsnone Learning Assessment (Other Learner):Learning Assessment (Other [...] an injured patient at a Trauma Center ([facility] / [facility]): no Electronic Signatures:Kateryna Troy (RN) (Signed 30-Sep-2018 19:18)Authored: Preferred Language, Advanced Directives, Family Violence Adult,Suicide / Depression, Learning Assessment (Patient), Learning Assessment (OtherLearner), Fall Risk Adult, Pressure Injury, Respiratory / Cough /TB,Smoking/Social History (Required age 13 or older), CAGE Last Updated: 30-Sep-2018 19:18 by Kateryna Troy (RN) [facility] SHOULDER, CMPLT, MIN 2 VIEWS on 09-30-2018 SHOULDER, CMPLT, MIN 2 VIEWS Name: SOFIA WIGGINS STUDY:SHOULDER, CMPLT, MIN 2 VIEWS; 09/30/2018 7:06 pm INDICATION:Signs/Symptoms : fall off horse last night. COMPARISON:None. ORDERING CLINICIAN:JOHNIE WELLINGTON FINDINGS:Right shoulder three views. The osseous structures and soft tissuesappear normal. No fracture or dislocation is noted IMPRESSION:Unremarkable right shoulder Electronically signed by: ARACELI GONZALEZ MD [facility] Triage - EDon 09-30-2018 Triage - [...] at time of triage.).Onset of the Complaint: [id number] Date/Time: 30-Sep-2018 18:34Pain Rating (0-10): Rest: 8Vital Signs:Temperature: 97.1F ( 36.2C)Blood Pressure: 132/80 Mean:Heart Rate: 92Respiratory Rate: 18Pulse Oximetry: 97% on room air, no respiratory support. Height: 4 feet 11.00inches. 149.8 CMWeight: 135.0 pounds. Calculated 61.2 kg.Calculated BMI (kg/m2): 27.272 Calculated BSA (m2) 1.60 Cough lasting greater than 3 weeks: noPatient immunocompromised related to: N/ATravel outside of [place]: noAllergies: noLast menstrual period: [id number]: 2 Symptoms Are POSITIVE For:facial pain and [...] 30-Sep-2018 18:38 by Regine Lundberg (KYA) [facility] Vital Signs Date Time Vital Sign Value Performing Clinician Facility 01-13-2024 08:39-0400 Body height 151.1 cm [employer] Work Phone: [employer] 01-13-2024 08:39-0400 Body mass index (BMI) [Ratio] 33.96 kg/m2 [employer] Work Phone: [employer] 01-13-2024 08:39-0400 Body weight 77.56 kg [employer] Work Phone: [employer] 01-13-2024 08:39-0400 Diastolic blood pressure 82 mm[Hg] Tiburcio Crawford DO Work Phone: [employer] 01-13-2024 08:39-0400 Systolic blood pressure 122 mm[Hg] Tiburcio Crawford DO Work Phone: [employer] 12-01-2023 11:00-0500 Body height 125.27 cm Kayley Mo Other [facility] Other 12-01-2023 11:00-0500 Body mass index (BMI) [Ratio] 39.31 kg/m2 Kayley Mo Other [facility] Other 12-01-2023 11:00-0500 Body temperature 101.2 [degF] Kayley Mo Other [facility] Other 12-01-2023 11:00-0500 Body weight 61.69 kg Kayley Mo Other [facility] Other 12-01-2023 11:00-0500 Respiratory rate 18 /min Kayley Mo Other [facility] Other 12-01-2023 11:00-0500 SaO2% (BldA) [Mass fraction] 97 % Kayley Mo Other [facility] Other 09-24-2023 08:48-0500 Body height 149.86 cm DO Shauna Atkinson Work Phone: [facility] 09-24-2023 08:48-0500 Body temperature 97.4 [degF] DO Shauna Atkinson Work Phone: [facility] 09-24-2023 08:48-0500 Body weight 67.13 kg DO Shauna Atkinson Work Phone: [facility] 09-24-2023 08:48-0500 Diastolic blood pressure 56 mm[Hg] DO Shauna Atkinson Work Phone: [facility] 09-24-2023 08:48-0500 Heart rate 99 /min DO Shauna Atkinson Work Phone: [facility] 09-24-2023 08:48-0500 Respiratory rate 18 /min DO Shauna Atkinson Work Phone: [facility] 09-24-2023 08:48-0500 SaO2% (BldA) [Mass fraction] 97 % DO Shauna Atkinson Work Phone: [facility] 09-24-2023 08:48-0500 Systolic blood pressure 119 mm[Hg] DO Shauna Atkinson Work Phone: [facility] 01-09-2023 15:00-0500 Diastolic blood pressure 71 mm[Hg] DO Shauna Atkinson Work Phone: [facility] 01-09-2023 15:00-0500 Heart rate 76 /min DO Shauna Atkinson Work Phone: [facility] 01-09-2023 15:00-0500 Respiratory rate 16 /min DO Shauna Atkinson Work Phone: [facility] 01-09-2023 15:00-0500 SaO2% (BldA) [Mass fraction] 96 % DO Shauna Atkinson Work Phone: [facility] 01-09-2023 15:00-0500 Systolic blood pressure 107 mm[Hg] DO Shauna Atkinson Work Phone: [facility] 01-09-2023 11:40-0500 Body height 149.86 cm DO Shauna Atkinson Work Phone: [facility] 01-09-2023 11:40-0500 Body temperature 97.6 [degF] DO Shauna Atkinson Work Phone: [facility] 01-09-2023 11:40-0500 Body weight 79 kg DO Shauna Atkinson Work Phone: [facility] 10-13-2022 11:52-0500 Body height 149.86 cm DO Shauna Atkinson Work Phone: [facility] 10-13-2022 11:52-0500 Body temperature 98.7 [degF] DO Shauna Atkinson Work Phone: [facility] 10-13-2022 11:52-0500 Body weight 78 kg DO Shauna Atkinson Work Phone: [facility] 10-13-2022 11:52-0500 Diastolic blood pressure 66 mm[Hg] DO Shauna Atkinson Work Phone: [facility] 10-13-2022 11:52-0500 Heart rate 90 /min DO Shauna Atkinson Work Phone: [facility] 10-13-2022 11:52-0500 Respiratory rate 18 /min DO Shauna Atkinson Work Phone: [facility] 10-13-2022 11:52-0500 SaO2% (BldA) [Mass fraction] 96 % DO Shauna Atkinson Work Phone: [facility] 10-13-2022 11:52-0500 Systolic blood pressure 113 mm[Hg] DO Shauna Atkinson Work Phone: [facility] 10-12-2022 16:07-0500 Body height 152.4 cm DO Shauna Atkinson Work Phone: [facility] 10-12-2022 16:07-0500 Body temperature 99.1 [degF] DO Shauna Atkinson Work Phone: [facility] 10-12-2022 16:07-0500 Body weight 78 kg DO Shauna Atkinson Work Phone: [facility] 10-12-2022 16:07-0500 Diastolic blood pressure 67 mm[Hg] DO Shauna Atkinson Work Phone: [facility] 10-12-2022 16:07-0500 Heart rate 87 /min DO Shauna Atkinson Work Phone: [facility] 10-12-2022 16:07-0500 Respiratory rate 16 /min DO Shauna Atkinson Work Phone: [facility] 10-12-2022 16:07-0500 SaO2% (BldA) [Mass fraction] 95 % DO Shauna Atkinson Work Phone: [facility] 10-12-2022 16:07-0500 Systolic blood pressure 127 mm[Hg] DO Shauna Atkinson Work Phone: [facility] 04-10-2022 09:14-0400 Body height 149.86 cm No PCP None [facility] Work Phone: 04-10-2022 09:14-0400 Body mass index (BMI) [Ratio] 34.18 kg/m2 No PCP None [facility] Work Phone: 04-10-2022 09:14-0400 Body surface area Derived from formula 1.72 m2 No PCP None [facility] Work Phone: 04-10-2022 09:14-0400 Body temperature 97.5 [degF] No PCP None [facility] Work Phone: 04-10-2022 09:14-0400 Body weight 76.77 kg No PCP None [facility] Work Phone: 04-10-2022 09:14-0400 Diastolic blood pressure 83 mm[Hg] No PCP None [facility] Work Phone: 04-10-2022 09:14-0400 Heart rate 99 /min No PCP None L[facility]xq[facility] Work Phone: 04-10-2022 09:14-0400 SaO2% (BldA) [Mass fraction] 98 % No PCP None RZ[facility]Wkqljcc[facility]iz[facility] Work Phone: 04-10-2022 09:14-0400 Systolic blood pressure 140 mm[Hg] No PCP None [facility] Work Phone: 03-27-2022 09:51-0400 Body height 149.86 cm No PCP None UE[facility]bun[facility] Work Phone: 03-27-2022 09:51-0400 Body mass index (BMI) [Ratio] 35.16 kg/m2 No PCP None KB[facility]Mmqvphs[facility]kqq[facility] Work Phone: 03-27-2022 09:51-0400 Body surface area Derived from formula 1.74 m2 No PCP None FL[facility]Rxnssbc[facility] Work Phone: 03-27-2022 09:51-0400 Body temperature 97.7 [degF] No PCP None QE[facility]gnqfe[facility] n [facility] Work Phone: 03-27-2022 09:51-0400 Body weight 78.95 kg No PCP None KN[facility]Usmsbcc[facility] Work Phone: 03-27-2022 09:51-0400 Diastolic blood pressure 83 mm[Hg] No PCP None DN[facility] Work Phone: 03-27-2022 09:51-0400 Heart rate 78 /min No PCP None NQ[facility]icjxc[facility]Tgkna [facility] Work Phone: 03-27-2022 09:51-0400 SaO2% (BldA) [Mass fraction] 99 % No PCP None WF[facility]Uhnqoso[facility]Jllxb [facility] Work Phone: 03-27-2022 09:51-0400 Systolic blood pressure 121 mm[Hg] No PCP None HW[facility]Opbhnmf[facility]Aivsv [facility] Work Phone: 02-18-2022 15:00-0400 Diastolic blood pressure 63 mm[Hg] Cheng Saldaña [facility] 02-18-2022 15:00-0400 Heart rate 79 /min Cheng Saldaña [facility] 02-18-2022 15:00-0400 Mean blood pressure 79 mm[Hg] Cheng Piotr [facility] 02-18-2022 15:00-0400 SaO2% (BldA) [Mass fraction] 100 % Cheng Piotr [facility] 02-18-2022 15:00-0400 Systolic blood pressure 111 mm[Hg] Cheng Piotr [facility] 02-18-2022 14:00-0400 Diastolic blood pressure 52 mm[Hg] Cheng Piotr [facility] 02-18-2022 14:00-0400 Heart rate 94 /min Cheng Piotr [facility] 02-18-2022 14:00-0400 Mean blood pressure 71 mm[Hg] Cheng Piotr [facility] 02-18-2022 14:00-0400 SaO2% (BldA) [Mass fraction] 94 % Cheng Pitor [facility] 02-18-2022 14:00-0400 Systolic blood pressure 108 mm[Hg] Cheng Piotr [facility] 02-18-2022 13:52-0400 Heart rate 85 /min Cheng Piotr [facility] 02-18-2022 13:52-0400 Respiratory rate 16 /min Cheng Piotr [facility] 02-18-2022 13:52-0400 SaO2% (BldA) [Mass fraction] 98 % Cheng Piotr [facility] 02-18-2022 11:54-0400 Body temperature 98.24 [degF] Cheng Saldaña [facility] 02-18-2022 11:54-0400 Diastolic blood pressure 65 mm[Hg] Cheng Saldaña [facility] 02-18-2022 11:54-0400 Heart rate 102 /min Cheng Saldaña [facility] 02-18-2022 11:54-0400 Systolic blood pressure 118 mm[Hg] Cheng Saldaña [facility] Encounters Encounter Date Encounter Type Care Provider Facility Start: 01-25-2024 Telephone encounter Alicia Ohara RN [facility] Start: 01-20-2024 End: 01-21-2024 ambulatory [facility] Start: 01-19-2024 Orders Only Tiburcio Stuart Crawford DO Work Phone: [facility] Comment on above: Medication managemen t (Primary Dx) Start: 01-13-2024 End: 01-14-2024 ambulatory [facility] Comment on above: Pelvic pain; Dysmenorrhea Start: 01-13-2024 End: 01-13-2024 Encounter for gynecological examination (general) (routine) without abnormal findings Tiburcio Crawford DO Work Phone: [employer] Work Phone: Start: 01-13-2024 End: 01-13-2024 Patient encounter procedure Tiburcio Crawford DO Work Phone: [employer] Start: 01-13-2024 End: 01-13-2024 Periodic preventive med est patient 18-39 yrs Tiburcio Crawford DO Work Phone: [facility] Comment on above: Well woman exam with routine gynecological exam (Primary Dx); Cervical smear, as part of routine gynecological examination; Pelvic pain; Dysmenorrhea Start: 12-01-2023 End: 12-01-2023 ambulatory Kayley Mo Other [facility] Other Start: 12-01-2023 Office outpatient vi sit 25 minutes Kayley Mo [facility] Start: 11-03-2023 End: 11-03-2023 ambulatory Cheng Cruz Other [facility] Other Start: 11-03-2023 Office outpatient vi sit 15 minutes Cheng Cruz [facility] Start: 09-28-2023 End: 09-28-2023 ambulatory Cheng Cruz Other [facility] Other Start: 09-28-2023 Office outpatient ne w 30 minutes Cheng Cruz [facility] Start: 09-24-2023 End: 09-24-2023 Emergency department patient visit Alton Boss Facility:[facility] Start: 09-24-2023 End: 09-24-2023 Emergency department patient visit DO Shauna Atkinson Work Phone: [facility] Work Phone: Start: 02-23-2023 End: 02-23-[address] ISRAEL MISC Facility:[facility] Start: 01-09-2023 End: 01-09-2023 Emergency department patient visit Joseph Wallace Facility:[facility] Start: 01-09-2023 End: 01-09-2023 Emergency department patient visit DO Shauna Atkinson Work Phone: [facility] Work Phone: Start: 01-09-2023 End: 01-09-[address] ISRAEL MISC Facility:[facility] Start: 01-05-2023 End: 01-05-[address] ISRAEL MISC Facility:H1 Start: 12-05-2022 End: 12-05-[address] ISRAEL MISC Facility:[facility]1 Start: 10-13-2022 End: 10-13-2022 Emergency department patient visit DO Shauna Atkinson Work Phone: [facility]-Emergency [facility] Start: 10-12-2022 End: 10-12-2022 Emergency department patient visit DO Shauna Atkinson Work Phone: [facility]-Emergency Room Start: 10-11-2022 End: 10-11-[address] GIOVANA GILMORE Facility:[facility]1 Start: 05-03-2022 Chart Update No PCP None [facility]: Start: 04-29-2022 AUDIT No PCP None [facility] [address] Work Phone: Start: 04-10-2022 FUV, Provider: Juan Taylor, Status: Pen, Time: 9:00 AM No PCP None [facility] [place] Work Phone: Start: 04-10-2022 Office outpatient vi sit 15 minutes No PCP None [facility] [place] Work Phone: Start: 04-09-2022 Chart Update No PCP None [facility] [place] Work Phone: Start: 03-27-2022 Office outpatient ne w 30 minutes No PCP None [facility] Work Phone: Start: 02-18-2022 End: 02-18-2022 Emergency department patient visit Cheng Saldaña [facility] Start: 09-30-2018 Emergency dept visit high severity&threat funcj JAGDISH ARGUELLO [facility] Start: 09-30-2018 End: 09-30-2018 Patient encounter [...] Td Vaccines (2 - Td or Tdap) [facility] Start: 01-12-2027 Screening for malign ant neoplasm of cervix Pap Smear [facility] Start: 01-12-2025 Adult BMI Screening Adult BMI Screen ing [facility] Start: 01-12-2025 Depression Screening Depression Scre ening [facility] Start: 01-12-2025 Tobacco Screening Tobacco Screening [facility] Start: 01-20-2024 End: 01-20-2024 Patient encounter procedure 01/20/2024 8:00 AM EDT Appointment [facility] Ultrasound [address] [place] [address] Tiburcio Crawford, DO [address] [place] [address] [facility] - Ultrasound Start: 01-20-2024 Subsequent hospital visit by physician 01/20/2024 8:00 AM EDT Hospital Encounter [facility] - Ultrasound [address] [place] [address] Tiburcio Crawford, [place] [facility] [place] [address] [facility] Ultrasound Start: 01-13-2024 End: 01-12-2025 Cytopathology procedure, preparation of smear, genital source Pap Smear Pathology and Cytology Routine Cervical smear, as part of routine gynecological examination Expected: 01/13/2024 (Approximate), Expires: 01/12/2025 [facility] Work Phone: Comment on above: Expected: 01/13/2024 (Approximate), Expires: 01/12/2025 Start: 01-13-2024 End: 01-12-2025 US Pelvis transabdominal and transvaginal Ultrasound pelvic with transvaginal Imaging Routine Pelvic pain Expected: 01/13/2024, Expires: 01/12/2025 [facility] Comment on above: Expected: 01/13/2024 , Expires: 01/12/2025 Start: 12-10-2023 Adult BMI Follow Up Plan Adult BMI Follow Up Plan [facility] Start: 07-03-2023 COVID-19 Vaccine () COVID-19 Vaccine () [facility] Start: 07-03-2023 Influenza vaccination Influenza Vacc ine [facility] Start: 10-12-2022 [facility] Start: 05-08-2022 POV, Provider: Juan Taylor, Status: Pen, Time: 10:00 AM POV, Provider: Juan Taylor, Status: Pen, Time: 10:00 AM [facility] [address] Work Phone: Start: 04-10-2022 FUV, Provider: Juan Taylor, Status: Pen, Time: 9:00 AM [facility] Work Phone: Start: 2019 Screening for malign ant neoplasm of cervix Pap Smear [facility] Start: 1998 Tobacco Counseling Tobacco Counselin g [facility] Alanine aminotransfe rase [Enzymatic activity/volume] in Serum or Plasma by No addition of P-5'-P [facility] Work Phone: Albumin [Mass/volume ] in Serum or Plasma [facility] Work Phone: Albumin/Globulin ratio [facility] Work Phone: Alkaline phosphatase [Enzymatic activity/volume] in Serum or Plasma [facility] Work Phone: Anion gap measurement [facility] Work Phone: Aspartate aminotrans ferase [Enzymatic activity/volume] in Serum or Plasma [facility] Work Phone: Basophils [#/volume] in Blood by Automated count [facility] Work Phone: Basophils/100 leukoc ytes in Blood by Automated count [facility] Work Phone: Bilirubin.total [Mass/volume] in Serum or Plasma [facility] Work Phone: Calcium [Mass/volume ] in Serum or Plasma [facility] Work Phone: Carbon dioxide, tota l [Moles/volume] in Serum or Plasma [facility] Work Phone: End: 01-18-2025 CBC W Auto Differential panel - Blood CBC auto differential Lab Routine Medication management 1 Occurrences starting 01/19/2024 until 01/18/2025 [employer] Work Phone: Comment on above: 1 Occurrences starti ng 01/19/2024 until 01/18/2025 Chloride [Moles/volu me] in Serum or Plasma [facility] Work Phone: End: 01-18-2025 Comprehensive metabolic 2000 panel - Serum or Plasma Comprehensive metabolic panel Lab Routine Medication management 1 Occurrences starting 01/19/2024 until 01/18/2025 [employer] Comment on above: 1 Occurrences starti ng 01/19/2024 until 01/18/2025 Creatinine and Glome rular filtration rate.predicted panel - Serum, Plasma or Blood [facility] Work Phone: Eosinophils [#/volum e] in Blood [facility] Work Phone: Eosinophils/100 leuk ocytes in Blood by Automated count [facility] Work Phone: Erythrocyte distribu tion width [Ratio] by Automated count [facility] Work Phone: Erythrocytes [#/volu me] in Blood [facility] Work Phone: Globulin [Mass/volum e] in Serum [facility] Work Phone: Glucose [Mass/volume ] in Serum or Plasma [facility] Work Phone: Hematocrit [Volume Fraction] of Blood [facility] Work Phone: Hemoglobin [Mass/vol ume] in Blood [facility] Work Phone: Leukocytes [#/volume ] corrected for nucleated erythrocytes in Blood by Automated coun [facility] Work Phone: Leukocytes [#/volume ] in Blood [facility] Work Phone: Lymphocytes [#/volum e] in Blood by Automated count [facility] Work Phone: Lymphocytes/100 leuk ocytes in Blood by Automated count [facility] Work Phone: MCH [Entitic mass] b y Automated count [facility] Work Phone: MCHC [Mass/volume] b y Automated count [facility] Work Phone: MCV [Entitic volume] by Automated count [facility] Work Phone: Measurement of renal function [facility] Work Phone: Monocytes [#/volume] in Blood by Automated count [facility] Work Phone: Monocytes/100 leukoc ytes in Blood by Automated count [facility] Work Phone: Neutrophils [#/volum e] in Blood by Automated count [facility] Work Phone: Neutrophils/100 leuk ocytes in Blood by Automated count [facility] Work Phone: Nucleated erythrocyt es [Presence] in Blood by Automated count [facility] Work Phone: Patient Education [facility] Work Phone: Patient referral [facility] Work Phone: Platelet mean volume [Entitic volume] in Blood by Automated count [facility] Work Phone: Platelets [#/volume] in Blood [facility] Work Phone: Potassium [Moles/vol ume] in Serum or Plasma [facility] Work Phone: Protein [Mass/volume ] in Serum or Plasma [facility] Work Phone: Sodium [Moles/volume ] in Serum or Plasma [facility] Work Phone: Urea nitrogen [Mass/volume] in Serum or Plasma [facility] Work Phone: Payers Date Payer Category Payer Self-pay [id number] 2022 Medicaid [employer] HMO [id number] 2022-Present [phone] [address] [place] [address] [id number] 1998 Unknown [id number] 1998 Unknown [id number] 1998 Unknown [id number] 1998 Unknown [id number] 1998 Unknown [id number] 1998 Unknown [id number] 1998 Unknown [id number] 1998 Unknown [id number] 1998 Unknown [id number] 1961 Medicaid [id number] 1961 Medicaid [id number] Medicaid [id number] Medicaid [id number] Unknown [employer] Unknown O [id number] Unknown [id number] Unknown [id number] Unknown [id number] Social History Date Type Detail Facility Start: 02-18-2022 Tobacco smoking status Heavy t obacco smoker (finding) [facility] Start: 04-14-2019 End: 01-13-2024 Sex Assigned At Female [facility] Start: 10-12-2022 End: 09-24-2023 Tobacco smoking status NHIS Smoker (finding) [facility] Start: 1998 Sex Assigned At Female [facility] Start: 12-10-2022 Tobacco smoking stat us KYIS Smokes tobacco daily [facility] History of tobacco use Cigarette Smoker P [facility] Start: 12-10-2022 End: 01-13-2024 Cigarettes smoked current (pack per day) - Reported 0.3 [facility] Start: 12-10-2022 Tobacco use and exposure Smokeless tobacco non-user [facility] Start: 01-13-2024 Alcohol intake Ex-drinker (finding) [facility] Adolescent depressio n screening assessment 5 [facility] Start: 12-10-2022 Alcohol Comment social [facility] Start: 12-23-2022 Gender identity Identifies as female gender (finding) [facility] Start: 12-23-2022 Sexual orientation Heterosexual (umesh landrum) [facility] Clinical Notes 11-03-2021 to 01-25-2024 Telephone Encounter [...] needs. KYA Reyes documented in this encounter [facility] 01-25-2024 Telephone encount er Note Patient called to inquire if we had the results from her ultrasound. She is advised that the ultrasound was normal. She is advised to call if further needs. KYA Reyes [facility] 01-19-2024 History of Presen t illness Narrative CBC and CMP ordered per insurance request to refill her ibuprofen documented in this encounter [facility] 01-13-2024 Miscellaneous Notes Formattin g of this note might be different from the original. Patient will need a CBC and a CMP to check her blood counts and her liver/kidney function unknown need to continue the ibuprofen. documented in this encounter [facility] 01-13-2024 Telephone encount er Note Patient will need a CBC and a CMP to check her blood counts and her liver/kidney function unknown need to continue the ibuprofen. [facility] 01-13-2024 History of Presen t illness [...] like to pursue. 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06-24-2022 NotePost Operative Note: PreOp Diagnosis: Chronic infection sebaceous cyst right chest Post-Procedure Diagnosis: Same Procedure: 1. Excision right chest cyst 5x2 cm 2. Complex closure 5cm 3. 4. 5. Surgeon: Claudia Resident/Fellow/Other Infant Toddler Lead Teacher: Geraldine Anesthesia: General, 0.5% marciane Estimated Blood Loss (mL): 3cc Specimen: yes. right skin cyst Findings: sebaceous cyst removed without visible pus Patient Returned To/Condition: To RR in sat cond Attestation: Note Completion: Attending AttestationI was present for the entire procedure Electronic Signatures: Juan Taylor) (Signed 25-Apr-2022 10:40) Authored: Post Operative Note, Note Completion Last Updated: 25-Apr-2022 10:40 by Juan Taylor)[facility] 04-25-2022 NoteHistory & Physical Reviewed: /Lactating: [...] the note. I personally evaluated the patient [id number] Electronic Signatures: Sascha Chandler (Resident)) (Signed 25-Apr-2022 08:43) Authored: History & Physical Reviewed, ERAS, Consent, Note Completion Juan Taylor) (Signed 05-May-2022 13:45) Authored: Note Completion Co-Signer: History & Physical Reviewed, ERAS, Consent, Note Completion Last Updated: 05-May-2022 13:45 by Juan Taylor) References: 1. Data Referenced From Patient Profile - Preop v3 25-Apr-2022 08:07[facility]04-19-2022 Hospital Discharge instructions Patient Education 02/18/2022 14:56:49 Epidermal Cyst, Hidi-pl-Pakt Epidermal Cyst An epidermal cyst is a [...] yourself. Follow these instructions at home: Take xaie-xfc-orfqare and prescription medicines only as told by [...] the cyst, or to remove it. Take tkca-kdw-jjdhxkg and prescription medicines only as told by [...] 11/26/2005 Document Revised: 02/09/2020 Document Reviewed: 07/28/2019 [employer] Patient Education 2020 [employer]. Follow Up Care 02/18/2022 11:50:54 With:Sara MCGRATH, Ernesto Brooks, FREEMAN Address: When:02/21/2022 [facility]04-19-2022 Evaluation + Plan noteExtracted from: Title:ED Note [...] With Cult Reflex XR Chest 2 Views [facility]01-02-2022 History of Present illness Narrative* Sofia Wiggins is a 21 year old female presenting to the breast center with a chronic right chest skin abscess that she would like excised. She has been receiving care at [facility]. 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 Diagnosed at age 50. * Maternal grandfather with lung and liver cancer [facility] Work Phone: [phone]) 902-675301-02-2022 History of Present illness Narrative* Sofia Wiggins is a 21 year old female presenting to the breast center with a chronic right chest skin abscess that she would like excised. She has been receiving care at [facility]. 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 Diagnosed at age 50. * Maternal grandfather with lung and liver cancer [facility] Work Phone: Evaluation noteNo assessment information available [facility] Work Phone: Evaluation note* Diagnosis Well woman exam with routine gynecological exam- Primary Routine gynecological examination Cervical smear, as part of routine gynecological examination Screening for malignant neoplasm of the cervix Pelvic pain Dysmenorrhea [facility] Diagnosis Medication management- Primary [facility] Diagnosis Pelvic pain Dysmenorrhea [facility] - Reported* Type Description Date Medical History None Surgical History Tonsils Surgical History Solon Teeth [facility] Other History general Narrative - Reported* Type Description Date Medical History None Surgical History Tonsils Surgical History Solon Teeth Surgical History C section Hospitalization History See Above [facility] Hospital course Narrative No data available for this section [facility] Additional Instructions Take zbro-gyd-ykukbtc cough and cold medication as needed for symptoms May take the Zofran every 8 hours as needed Use your albuterol inhaler every 4 hours as needed for wheezing cough shortness of breath Increase oral fluids Follow-up with family doctor as needed Return to the ER for significant respiratory distress chest pain vomiting or any [facility] Work Phone: Hospital Discharge instructions Additional Instructions If your symptoms return/worsen or you develop any further concerns or symptoms please see your doctor or return to the emergency department immediately.[facility] Work Phone: Hospital Discharge instructions Additional Instructions Continue your Tylenol and ibuprofen at home Follow-up with your orthopedic physician Return if symptoms are worse[facility] Work Phone: InstructionsNot on filedocumented in [...] section and content) DATE CREATED AUTHOR 10/11/2018 [facility] DATE CREATED AUTHOR AUTHOR'S ORGANIZ ATION 02/19/2022 [facility] DATE CREATED AUTHOR AUTHOR'S ORGANIZ ATION 05/05/2022 [facility] DATE CREATED AUTHOR AUTHOR'S ORGANIZ ATION 05/12/2022 [facility] DATE CREATED AUTHOR AUTHOR'S ORGANIZ ATION 02/25/2023 [facility] DATE CREATED AUTHOR AUTHOR'S ORGANIZ ATION 12/03/2023 [facility] DATE CREATED AUTHOR AUTHOR'S ORGANIZ ATION 12/11/2023 [facility] DATE CREATED AUTHOR AUTHOR'S ORGANIZ ATION 01/14/2024 [facility] DATE CREATED AUTHOR AUTHOR'S ORGANIZ ATION 01/28/2024 [facility] Care Teams (unrecognized sec tion and content) Team Status: Inactive Member Role Status Dates Shauna Atkinson , Primary Care Provider Active Martinez Kumar , DO Emergency Provider Active Team Status: Active Member Role Status Dates Shauna Atkinson , Primary Care Provider Active Team Status: Inactive Member Role Status Dates Shauna Atkinson , Primary Care Provider Active Payton Hernández , [facility] Emergency Provider Active Team Status: Inactive Member Role Status Dates Shauna Atkinson , Primary Care Provider Active Joseph Wallace , Emergency Provider Active Team Status: Inactive Member Role Status Dates Shauna Atkinson , Primary Care Provider Active Alton Boss MD Emergency Provider Active Disability Specialist Relationship Specialty Start Date End Date Shauna Atkinson DO [address] [place] [id number] PCP - General Family Medicine 12/15/22 Disability Specialist Relationship Specialty Start Date End Date Shauna Atkinson DO [address] [place] [id number] PCP - General Family Medicine 12/15/22 Disability Specialist Relationship Specialty Start Date End Date Shauna Atkinson DO [address] [place] [address] PCP - General Family Medicine 12/15/22 Disability Specialist Relationship Specialty Start Date End Date Shauna Atkinson DO [address] [place] [address] PCP - General Family Medicine 12/15/22 Goals (unrecognized section and content) Goals may be documented in a n alternate section REASON FOR VISIT (unrecogniz ed section and content) Reason Comments Annual Exam Pt is here for annua l exam. Last pap was several years at [facility]. Pt is due for pap. Gynecologic Exam [...] BE BASED ON THE PRIMARY CLINICAL RECORDS. [employer] provides no warranty or guarantee of the accuracy or completeness of information in this document.
--- NOTE | 2024-07-24 07:58 | ED.ABDPAIN1 ---
HPI - Abdominal Pain General Chief Complaint: Abdominal Pain Stated Complaint: MILD ABDOMINAL PAIN, POSSIBLE Time Seen by Provider: 07/24/24 07:53 Source: patient Mode of arrival: walk-in Limitations: no limitations History of Present Illness HPI narrative: 23-year-old female presents for lower abdominal pain. She is about 2 and half weeks late for her period, LMP was about June 13. No vaginal bleeding or dysuria or hematuria. She took 2 home tests and they were both positive and she wanted to confirm that she is . No fever or trauma. Related Data Home Medications ?Medication ?Instructions ?Recorded ?Confirmed albuterol sulfate 90 mcg/actuation 2 puff inhalation Q6H PRN 07/24/24 07/24/24 aerosol inhaler shortness of breath or wheezing escitalopram oxalate 10 mg tablet 10 mg PO DAILY 07/24/24 07/24/24 hydroxyzine pamoate 25 mg capsule 25 mg PO BID PRN insomnia 07/24/24 07/24/24 pregabalin 75 mg capsule 75 mg PO BID 07/24/24 07/24/24 Previous Rx's ?Medication ?Instructions ?Recorded guaifenesin 600 mg tablet, 600 mg PO Q12H PRN congestion #10 06/16/24 extended release 12 hr (Mucinex) tabs prednisone 20 mg tablet 40 mg (2 x 20 mg) PO DAILY 5 days 06/16/24 #10 tabs Allergies Allergy/AdvReac Type Severity Reaction Status Date / Time ketorolac [From Toradol] Allergy Severe Hives Verified 09/23/23 16:50 Penicillins Allergy Severe Verified 09/11/23 11:54 tramadol AdvReac Severe Verified 09/11/23 11:54 Review of Systems ROS Narrative A ten point review of systems is negative except as noted above. PFSH PFSH Social History Smoking status: Current every day smoker Little interest or pleasure in doing things: not at all Feeling down, depressed, or hopeless: not at all Exam Narrative Exam Narrative: Nurses note and vital signs reviewed and patient is not hypoxic. General: The patient appears well and in no apparent distress. Patient is resting comfortably on cart. Skin: Warm, dry, no pallor noted. There is no rash noted. Head: Normocephalic, atraumatic Eye: Normal conjunctiva, no drainage Ears, Nose, Mouth, and Throat: oral mucosa is moist. Nares patent. Cardiovascular: Regular Rate and Rhythm Respiratory: Patient is in no distress, no accessory muscle use, lungs are clear to auscultation, no wheezing, rales or rhonchi Back: non-tender GI: No appreciable tenderness on palpation. No masses or distention. Musculoskeletal: The patient has no evidence of calf tenderness, no pitting edema, symmetrical pulses noted bilaterally Neurological: A&O normal speech Psychiatric: Cooperative Constitutional Vital Signs, click to edit/add: Last Vital Signs Temp 98 F 07/24/24 07:48 Pulse 75 07/24/24 07:48 Resp 14 07/24/24 07:48 BP 139/89 07/24/24 07:48 Pulse Ox 98 07/24/24 07:48 O2 Del Method Room Air 07/24/24 07:48 Course Vital Signs Vital signs: Vital Signs Temperature 98 F 07/24/24 07:48 Pulse Rate 75 07/24/24 07:48 Respiratory Rate 14 07/24/24 07:48 Blood Pressure 139/89 07/24/24 07:48 Pulse Oximetry 98 07/24/24 07:48 Oxygen Delivery Method Room Air 07/24/24 07:48 Temperature 98 F 07/24/24 07:48 Pulse Rate 75 07/24/24 07:48 Respiratory Rate 14 07/24/24 07:48 Blood Pressure 139/89 07/24/24 07:48 Pulse Oximetry 98 07/24/24 07:48 Oxygen Delivery Method Room Air 07/24/24 07:48 MDM - Abdominal Pain MDM Narrative Medical decision making narrative: Both her urine and serum test are negative. She was advised of these findings. I have no clinical suspicion of appendicitis or other acute process and she is able to be discharged home. Treatment diagnosis and follow-up were discussed with the patient. Differential Diagnosis Differential diagnosis: Likely abdominal pain and other (, ectopic , nonspecific abdominal pain) Lab Data Attestation: I reviewed the patient's lab results. Labs: Lab Results 07/24/24 07/24/24 Range/Units 07:50 08:00 WBC 12.2 H (4.0-11.0) 10^3/uL RBC 4.90 (4.20-5.40) 10^6/uL Hgb 14.9 (12.0-16.0) g/dL Hct 45.9 (36.0-48.0) % MCV 93.7 (81.0-99.0) fL MCH 30.4 (26.7-34.0) pg MCHC 32.5 (29.9-35.2) g/dL RDW 13.7 (11.0-15.0) % Plt Count 325 (150-450) 10^3/uL MPV 11.5 (9.5-13.5) fL Neut % (Auto) 61.8 (43.0-75.0) % Lymph % (Auto) 26.5 (20.5-60.0) % [place] % (Auto) 6.7 (1.7-12.0) % Eos % (Auto) 3.8 (0.9-7.0) % Baso % (Auto) 0.5 (0.2-2.0) % Neut # (Auto) 7.5 H (1.4-6.5) 10^3/uL Lymph # (Auto) 3.2 (1.2-3.8) 10^3/uL [place] # (Auto) 0.8 (0.3-0.8) 10^3/uL Eos # (Auto) 0.5 (0.0-0.7) 10^3/uL Baso # (Auto) 0.1 (0.0-0.1) 10^3/uL Abs Immat Gran (auto) 0.08 H (0.00-0.03) 10^3/uL Imm/Tot Granulo (auto) 0.7 H (0.0-0.5) % Sodium 137 (136-145) mmol/L Potassium 3.8 (3.5-5.1) mmol/L Chloride 101 (98-107) mmol/L Carbon Dioxide 27.9 (21.0-32.0) mmol/L Anion Gap 11.9 BUN 12.0 (7.0-18.0) mg/dL Creatinine 0.49 L (0.55-1.02) mg/dL Est GFR ( Amer) >60 (>=60) Est GFR (Non-Af Amer) >60 (>=60) BUN/Creatinine Ratio 24.5 Glucose 97 (74-106) mg/dL Calcium 9.2 (8.5-10.1) mg/dL HCG, Quant <1 mIU/mL Urine Color Lt. yellow (YELLOW) Urine Clarity Clear (CLEAR) Urine pH 6.0 (5.0-9.0) Ur Specific [place] 1.025 (1.005-1.025) Urine Protein Negative (NEG/TRACE) mg/dL Urine Glucose (UA) Negative (NEGATIVE) mg/dL Urine Ketones Negative (NEGATIVE) mg/dL Urine Occult Blood Small A (NEGATIVE) Urine Nitrite Negative (NEGATIVE) Urine Bilirubin Negative (NEGATIVE) Urine Urobilinogen 0.2 (0.2-1.0) EU/dL Ur Leukocyte Esterase Negative (NEGATIVE) Urine RBC 0-2 (0-2) #/HPF Urine WBC 0-2 A (NONE SEEN) #/HPF Ur Squamous Epith Cells Moderate A (NONE/RARE) #/LPF Urine Crystals None seen (None Seen) #/HPF Urine Bacteria Trace A (NONE SEEN) #/HPF Urine Casts None seen (NONE SEEN) #/LPF Urine Mucus None seen (NONE SEEN) Ur Culture Indicated? No Urine HCG, Qual Negative (NEGATIVE) Discharge Plan Discharge Chief Complaint: Abdominal Pain Clinical Impression: Abdominal pain Patient Disposition: Home, Self-Care Time of Disposition Decision: 08:57 Condition: Good Mode of Transportation: Private Vehicle Prescriptions / Home Meds: No Action prednisone 20 mg tablet 40 mg PO DAILY 5 Days Qty: 10 0RF guaifenesin [Mucinex] 600 mg tablet extended release 12hr 600 mg PO Q12H PRN (Reason: congestion) Qty: 10 0RF albuterol sulfate 90 mcg/actuation HFA aerosol inhaler 2 puff INHALATION Q6H PRN (Reason: shortness of breath or wheezing) escitalopram oxalate 10 mg tablet 10 mg PO DAILY pregabalin 75 mg capsule 75 mg PO BID hydroxyzine pamoate 25 mg capsule 25 mg PO BID PRN (Reason: insomnia) Print Language: Portuguese Instructions: Abdominal Pain (ED) Referrals: Jorge Rose DO [Physician] - 1 week Cheng Cruz PA [Primary Care Provider] - 1 week
[2024-07-24 08:12] LABS: Basophils Absolute Auto 0.1 10^3/uL (0.0-0.1); Basophils Percent Auto 0.5 % (0.2-2.0); Eosinophils Absolute Auto 0.5 10^3/uL (0.0-0.7); Eosinophils Percent Auto 3.8 % (0.9-7.0); Hematocrit 45.9 % (36.0-48.0); Hemoglobin 14.9 g/dL (12.0-16.0); Immature Granulocytes Abs Auto 0.08 10^3/uL (0.00-0.03); Immature Granulocytes Pct Auto 0.7 % (0.0-0.5); Lymphocytes Absolute Auto 3.2 10^3/uL (1.2-3.8); Lymphocytes Percent Auto 26.5 % (20.5-60.0); Mean Corpuscular HGB Conc 32.5 g/dL (29.9-35.2); Mean Corpuscular Hemoglobin 30.4 pg (26.7-34.0); Mean Corpuscular Volume 93.7 fL (81.0-99.0); Mean Platelet Volume 11.5 fL (9.5-13.5); Monocytes Absolute Auto 0.8 10^3/uL (0.3-0.8); Monocytes Percent Auto 6.7 % (1.7-12.0); Neutrophils Absolute Auto 7.5 10^3/uL (1.4-6.5); Neutrophils Percent Auto 61.8 % (43.0-75.0); Platelet Count 325 10^3/uL (150-450); Red Cell Distribution Width 13.7 % (11.0-15.0); White Blood Count 12.2 10^3/uL (4.0-11.0)
[2024-07-24 08:13] LABS: Bilirubin Urine NEGATIVE (NEGATIVE); Blood Urine SMALL (NEGATIVE); Clarity Urine CLEAR (CLEAR); Color Urine LT. YELLOW (YELLOW); Glucose Urine UA NEGATIVE (NEGATIVE); Ketones Urine NEGATIVE (NEGATIVE); Leukocyte Esterase Urine NEGATIVE (NEGATIVE); Nitrite Urine NEGATIVE (NEGATIVE); Protein Urine NEGATIVE (NEG/TRACE); Specific Gravity Urine 1.025 (1.005-1.025); Urobilinogen Urine 0.2 EU/dL (0.2-1.0)
[2024-07-24 08:14] LABS: Urine Microscopic Indicated YES
[2024-07-24 08:15] LABS: HCG Qualitative Urine* NEGATIVE (NEGATIVE); Internal Control Within Normal Limits
[2024-07-24 08:28] LABS: Bacteria Urine TRACE #/HPF (NONE SEEN); Crystals Seen? None Seen #/HPF (None Seen); Mucus Urine NONE SEEN (NONE SEEN); RBC Urine 0-2 #/HPF (0-2); Squamous Epithelial Cell Urine MODERATE #/LPF (NONE/RARE); WBC Urine 0-2 #/HPF (NONE SEEN)
[2024-07-24 08:29] LABS: Cast Seen? NONE SEEN #/LPF (NONE SEEN); Urine Culture Indicated NO
[2024-07-24 08:34] LABS: Anion Gap 11.9; BUN Creatinine Ratio 24.5; Calcium 9.2 mg/dL (8.5-10.1); Carbon Dioxide 27.9 mmol/L (21.0-32.0); Chloride 101 mmol/L (98-107); Estimated GFR (African America >60 (>=60); Estimated GFR (Non-African Ame >60 (>=60); Glucose 97 mg/dL (74-106); Potassium 3.8 mmol/L (3.5-5.1); Sodium 137 mmol/L (136-145)
[2024-07-24 08:50] LABS: HCG Quantitative <1 mIU/mL
== END 2024-07-24 09:07 | disposition home or self-care (01) ==
PROVIDERS: Emergency Provider Emergency Medicine; PCP Physician Assistant
DX: R10.9 Unspecified abdominal pain (principal); F17.200 Nicotine dependence, unspecified, uncomplicated
CPT/HCPCS: 36415; 80048; 81001; 84702; 84703; 85025; 99283

== ENCOUNTER 2024-10-16 05:28 | Emergency (ER) | payer SELFPAY ==
[2024-10-16 05:32] VITALS: BP 103/85; PULSE 96; TEMP 36.9; O2SAT 96; BMI 28.3
--- OUTSIDE RECORDS SUMMARY | 2024-10-16 05:33 | XMS_ITS | CCD ---
Author Organization [facility] Care Team Providers Care Epic Kaleidoscope Analyst Name Role Phone JAGDISH ARGUELLOOVAN Unavailable Unavailable Wandy Dorado Primary Care Physician [phone] None, No PCP Unavailable Unavailable Unavailable Unavailable DO Shauna Atkinson Primary Care Provider [phone] DO Martinez Kumar Emergency Provider Betty [facility] Payton Brooks Emergency Provider DO Joseph Wallace Emergency Provider [phone] DR GIOVANA GILMORE Admitting Unavailabl e MANDO, [...] Unavailable DO Shauna Atkinson Primary Care Provider [phone] MD Alton Boss Emergency Provider Cheng Cruz [...] Penicillin; Translations: [penicillin] Drug Allergy Anaphylaxis (disorder) [facility] (1 source) Pollen Drug allergy Respiratory function (observable entity) [facility] (5 sources) Penicillins Cross Reactors; Translations: [Penicillins [employer]] Allergy to drug (finding) [facility] Work Phone: (12 sources) Ketorolac; Translations: [ketorolac] Drug Allergy 04-29-20 hives, Anaphylaxis [facility] (11 sources) Penicillins; Translations: [Penicillins] Propensity to adverse reactions 01-22-20 Anaphylaxis [facility] (15 sources) traMADol; Translations: [tramadol] Drug Allergy 04-29-20 Anaphylaxis [facility] (1 source) Ketorolac Drug Allergy [facility] Repository (3 sources) penicillAMINE Drug Allergy Unknown [employer] Other (1 source) penicillAMINE Drug Allergy 12-01-19 [facility] (6 sources) Adhesive agent; Translations: [ADHESIVE] Propensity to adverse reactions to drug 01-29-20 Other (See Comments) [email or web address] [facility] (6 sources) Pollen; Translations: [POLLEN EXTRACTS] Propensity to adverse reactions to drug 04-07-20 [email or web address] [facility] Medications Current Medications Medication Drug Class(es) [...] O Q4H 3 2 September 24, 2023 [id number] actuat albuterol 0.09 mg/actuat metered dose [...] oral tablet (1 source) alpha-Adrenergic Agonist, Uncompetitive U-agcrcs-V-aspartate Receptor Antagonist, Sigma-1 Agonist Start: 12-01-2023 take [...] Marijuana Acti ve January 09, 2023 12:00am [facility] (No Known Home Meds) (1 source) Start: 10-13-2022 [facility] Smith (No Kn own Home Meds) Active October [...] out, # 84 tab(s), Refills(s) 1, Pharmacy: 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 Cytologyon 01-13-[address] [facility] Comment on above: Result Comment: [facility] [address] [place] [address] Gynecologic Cytology Consultation Patient Name:SOFIA ANDREWS:2000 (Age: 23)Gender:FTaken:4Reported:01/27/2024hysician(s):Tiburcio Crawford DO ([phone])Copy To: Rec. #:[id number]: #[id number] Final Cytologic Interpretation ThinPrep Pap Test (Cervical): Satisfactory for evaluation. A transformation zone component is present. NEGATIVE FOR INTRAEPITHELIAL LESION OR MALIGNANCY. jja/01/27/2024 Interpretation performed at [facility], [address] [place] [address], License number: [id number]. 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/abn findings Source of Specimen ThinPrep Pap Test (Cervical) Thin Prep Pap (RECEPTION SPECIALIST) Fee Code(s): G0145 Outside Recordson 12-02-2023 Outside Records [id number]#1.00OTGTI [facility] COVID + FLU Quick Testingon 12-01-2023 SARS-CoV-2 (COVID-19) RNA HUMBERTO+probe Ql (Unsp spec) Negative [facility] [employer] Other COVID + FLU Quick Testing Negative [facility] [employer] Other Outside Recordson 10-01-2023 Outside Records [id number]#1.00OTGTI [facility] XR knee LT 4V*on 09-24-2023 XR knee LT 4V* [facility] [place] [address] XRay Report Signed Patient: Sofia Andrews MR#: [id number] : 2000 Acct:[id number] Age/Sex: 22 / F ADM Date: 09/24/23 Loc: ER Room: Type: [facility] ER Attending Dr: Copies to: Alton [...] Curiel Jr., D.OHawk09/24/2023 9:27 AM Dictation Location: [place] [address] Transcribed By: [facility] 09/24/23926 Dictated By: Pablo Curiel Jr DO 09/24/23926 Signed By: 09/24/23926 [facility] Outside Recordson 02-19-2023 Outside Records [id number]#1.00OTGT IFF [facility] Outside Records [id number]#1.00OTGT IFF [facility] Outside Records [id number]#1.00OTGT IFF [facility] Outside Recordson 01-12-2023 Outside Records [id number]#1.00OTGTI FF [facility] Activated partial thrombopla stin time (aPTT) in platelet poor plasma by coagulation aOrdered By: Joseph Wallace on 01-09-2023 aPTT Coag (PPP) [Time] 30.5 s 25.1-36.5 [facility] Alanine aminotransferase [En zymatic activity/volume] in Serum or PlasmaOrdered By: Joseph Wallace on 01-09-2023 ALT [Catalytic activity/Vol] 16 U/L 7-52 [facility] Albumin [Mass/volume] in Ser um or Plasma by Bromocresol green (BCG) dye binding methoOrdered By: Joseph Wallace on 01-09-2023 Albumin BCG dye [Mass/Vol] 4.4 g/dL 3.5-5.7 [facility] Alkaline phosphatase [Enzyma tic activity/volume] in Serum or PlasmaOrdered By: Joseph Wallace on 01-09-2023 ALP [Catalytic activity/Vol] 77 U/L 34-104 [facility] Amphetamine Screen Ql (U)Ord ered By: Joseph Wallace on 01-09-2023 Amphetamines Ql (U) Negative Negative [facility] Aspartate aminotransferase [ Enzymatic activity/volume] in Serum or PlasmaOrdered By: Joseph Wallace on 01-09-2023 AST [Catalytic activity/Vol] 16 U/L 13-39 [facility] Automated erythrocytes count in urine sediment (number/area)Ordered By: Joseph Wallace on 01-09-2023 RBC Auto (Urine sed) [#/Area] 10-19 [HPF] 0-4 [facility] Automated leukocytes count i n urine sediment (number/area)Ordered By: Joseph Wallace on 01-09-2023 WBC Auto (Urine sed) [#/Area] 0-1 [HPF] 0-4 [facility] Barbiturates [Presence] in U rine by Screen methodOrdered By: Joseph Wallace on 01-09-2023 Barbiturates Screen Ql (U) Negative Negative [facility] Basic Metabolic Panelon 12-31 Anion gap [Moles/Vol] 12.6 mmol/L Normal 6.0-15.0 [facility] Comment on above: Performed By: #### P T, HEPATIC, PTT, BMP, CBC, LIPASE #### [facility] [address] Calcium [Mass/Vol] 8.9 mg/dL Normal 8.6-10.3 [facility] Comment on above: Performed By: #### P T, HEPATIC, PTT, BMP, CBC, LIPASE #### [facility] [address] [place] [address] [place] Chloride [Moles/Vol] 107 mmol/L Normal 98-107 [facility] Comment on above: Performed By: #### P T, HEPATIC, PTT, BMP, CBC, LIPASE #### [facility] [address] [place] [address] [place] CO2 [Moles/Vol] 25.3 mmol/L Normal 21.0-31.0 [facility] Comment on above: Performed By: #### P T, HEPATIC, PTT, BMP, CBC, LIPASE #### [facility] [address] Creatinine [Mass/Vol] 0.57 mg/dL Low 0.60-1.20 [facility] Comment on above: Performed By: #### P T, HEPATIC, PTT, BMP, CBC, LIPASE #### [facility] [address] [place] [address] [place] Creatinine Clr Calc Pharmacy 141.51 Normal [facility] Comment on above: Performed By: #### P T, HEPATIC, PTT, BMP, CBC, LIPASE #### [facility] [address] [place] [address] [place] GFR/1.73 sq M.predicted MDRD (S/P/Bld) [Vol rate/Area] mL/min/{1.73_m2} Normal [facility] Comment on above: Performed By: #### P T, HEPATIC, PTT, BMP, CBC, LIPASE #### [address] Glucose [Mass/Vol] 85 mg/dL Normal 74-109 [facility] Comment on above: Result Comment: [facility] Glucose Reference Range is dependent on time and content of last meal. Glucose of more than 200 mg/dL in a nonstressed, ambulatory subject supports the diagnosis of Diabetes Mellitus. ADA recommended reference range Performed By: #### P T, HEPATIC, PTT, BMP, CBC, LIPASE #### [address] Potassium [Moles/Vol] 3.9 mmol/L Normal 3.5-5.1 [facility] Comment on above: Performed By: #### P T, HEPATIC, PTT, BMP, CBC, LIPASE #### [facility] [address] [place] [address] [place] Sodium [Moles/Vol] 141 mmol/L Normal 136-145 [facility] Comment on above: Performed By: #### P T, HEPATIC, PTT, BMP, CBC, LIPASE #### [address] Urea nitrogen [Mass/Vol] 12 mg/dL Normal 7-25 [facility] Comment on above: Performed By: #### P T, HEPATIC, PTT, BMP, CBC, LIPASE #### [facility] [address] Basophils Auto (Bld) [#/Vol] Ordered By: Joseph Wallace on 01-09-2023 Basophils (Bld) [#/Vol] 0.1 10*3/uL 0.0-0.2 [facility] Basophils/100 WBC Auto (Bld) Ordered By: Joseph Wallace on 01-09-2023 Basophils/100 WBC (Bld) 0.6 % . [facility] Benzodiazepines Screen Ql (U )Ordered By: Joseph Wallace on 01-09-2023 Benzodiazepines Ql (U) Positive Negative [facility] Benzoylecgonine [Presence] i n Urine by Screen methodOrdered By: Joseph Wallace on 01-09-2023 Benzoylecgonine Screen Ql (U) Positive Negative [facility] Bilirubin Test strip Ql (U)O rdered By: Joseph Wallace on 01-09-2023 Bilirubin Ql (U) Negative Negative [facility] Bilirubin.direct [Mass/volum e] in Serum or PlasmaOrdered By: Joseph Wallace on 01-09-2023 Bilirubin.direct [Mass/Vol] 0.10 mg/dL 0.03-0.18 [facility] Bilirubin.total [Mass/volume ] in Serum or PlasmaOrdered By: Joseph Wallace on 01-09-2023 Bilirubin [Mass/Vol] 0.5 mg/dL 0.3-1.0 [facility] CBC AUTO DIFFon 01-09-2023 BASO # 0.1 103/ul Normal 0.0-0.1 [facility] Comment on above: Performed By: #### C BC #### [facility] [address] [address] [address] Cristopher Godoy Basophils/100 WBC (Bld) 0.6 % Normal 0.2-2.0 [facility] Comment on above: Performed By: #### C BC #### [facility] [address] [place], [place] [address] Dr. Cristopher Godoy EO # 0.4 103/ul Normal 0.0-0.7 [facility] Comment on above: Performed By: #### C BC #### [facility] [address] [place] [address] Dr. Cristopher Godoy Eosinophils/100 WBC (Bld) 2.7 % Normal 0.9-7.0 [facility] Comment on above: Performed By: #### C BC #### [facility] [address] [place] [address] Dr. Cristopher Godoy Erythrocyte distribution width (RBC) [Ratio] 13.5 % Normal 11.0-15.0 [facility] Comment on above: Performed By: #### C BC #### [facility] [address] [place] [address] Dr. Cristopher Godoy Hematocrit (Bld) [Volume fraction] 42.2 % Normal 36.0-48.0 [facility] Comment on above: Performed By: #### C BC #### [facility] [address] [place] [address] Dr. Cristopher Godoy Hemoglobin (Bld) [Mass/Vol] 14.1 g/dL Normal 12.0-16.0 [facility] Comment on above: Performed By: #### C BC #### [facility] [address] [place] [address] Dr. Cristopher Godoy IG # 0.06 10e3/ul Critically high 0.00-0.03 [facility] Comment on above: Performed By: #### C BC #### [facility] [address] [place] [address] Dr. Cristopher Godoy IG % 0.4 % Normal 0.0-0.5 [facility] Comment on above: Performed By: #### C BC #### [facility] [address] [place] [address] Dr. Cristopher Godoy LYMPH # 3.8 103/ul Normal 1.2-3.8 [facility] Comment on above: Performed By: #### C BC #### [facility] [address] [place] [address] Dr. Cristopher Godoy Lymphocytes/100 WBC (Bld) 24.7 % Normal 20.5-60.0 [facility] Comment on above: Performed By: #### C BC #### [facility] [address] [place] [address] Dr. Cristopher Godoy MANUAL DIFF REQ NO Normal [facility] Comment on above: Performed By: #### C BC #### [facility] [address] [place] [address] Dr. Cristopher Godoy MCH (RBC) [Entitic mass] 30.5 pg Normal 26.7-34.0 [facility] Comment on above: Performed By: #### C BC #### [facility] [address] [place] [address] Dr. Cristopher Godoy MCHC (RBC) [Mass/Vol] 33.4 g/dL Normal 29.9-35.2 [facility] Comment on above: Performed By: #### C BC #### [facility] [address] [place] [address] Dr. Cristopher Godoy MCV (RBC) [Entitic vol] 91.3 fL Normal 81.0-99.0 [facility] Comment on above: Performed By: #### C BC #### [facility] [address] [place] [address] Dr. Cristopher Godoy MONO # 0.9 103/ul Critically high 0.3-0.8 [facility] Comment on above: Performed By: #### C BC #### [facility] [address] [place] [address] Dr. Cristopher Godoy Monocytes/100 WBC (Bld) 5.9 % Normal 1.7-12.0 [facility] Comment on above: Performed By: #### C BC #### [facility] [address] [place] [address] Dr. Cristopher Godoy NEUT # 10.0 103/ul Critically high 1.4-6.5 [facility] Comment on above: Performed By: #### C BC #### [facility] [address] [place] [address] Dr. Cristopher Godoy Neutrophils/100 WBC (Bld) 65.7 % Normal 43.0-75.0 [facility] Comment on above: Performed By: #### C BC #### [facility] [address] [place], [place] [address] Dr. Cristopher Godoy Platelet mean volume (Bld) [Entitic vol] 10.8 fL Normal 9.5-13.5 [facility] Comment on above: Performed By: #### C BC #### [facility] [address] [place] [address] Dr. Cristopher Godoy PLT 338 103/ul Normal 150-450 [facility] Comment on above: Performed By: #### C BC #### [facility] [address] [address] [address] Cristopher Godoy RBC 4.62 106/ul Normal 4.20-5.40 [facility] Comment on above: Performed By: #### C BC #### [facility] [address] [place] [address] Dr. Cristopher Godoy WBC 15.3 103/ul Critically high 4.0-11.0 [facility] Comment on above: Performed By: #### C BC #### [facility] [address] [place] [address] ABD/PELV W CONon [...] by: SHERI ESCUDERO Date: 2023-01-09 04:41 Normal [facility] Calcium [Mass/volume] in Ser um or PlasmaOrdered By: Joseph Wallace on 01-09-2023 Calcium [Mass/Vol] 8.9 mg/dL 8.6-10.3 [facility] Cannabinoids [Presence] in U rine by Screen methodOrdered By: Joseph Wallace on 01-09-2023 Cannabinoids Screen Ql (U) Positive Negative [facility] Comment on above: These are unconfirme d results and should not be used for legal purposes. Drug Cut-Off Concentration: AMPH 1000 ng/mL ISAURO 200 ng/mL YULY 200 ng/mL COCM 300 ng/mL OP 300 ng/mL PCP 25 ng/mL THC 20 ng/mL Carbon dioxide, total [Moles /volume] in Serum or PlasmaOrdered By: Joseph Wallace on 01-09-2023 CO2 [Moles/Vol] 25.3 mmol/L 21.0-31.0 [facility] Chloride [Moles/volume] in S yudy or PlasmaOrdered By: Joseph Wallace on 01-09-2023 Chloride [Moles/Vol] 107 mmol/L 98-107 [facility] Color Auto (U)Ordered By: Janusz Wallace on 01-09-2023 Color (U) Yellow Yellow [facility] Complete Blood Count Auto Di ffon 01-09-2023 Basophils (Bld) [#/Vol] 0.1 10*3/uL Normal 0.0-0.2 [facility] Comment on above: Result Comment: PERF ORMED BY: [place] [address] PATHOLOGIST RN ENDOCRINOLOGY LUCRECIA NG M.D. Performed By: #### P T, HEPATIC, PTT, BMP, CBC, LIPASE #### [address] Basophils/100 WBC (Bld) 0.6 % Normal . [facility] Comment on above: Performed By: #### P T, HEPATIC, PTT, BMP, CBC, LIPASE #### [address] Eosinophils (Bld) [#/Vol] 0.6 10*3/uL High 0.0-0.45 [facility] Comment on above: Performed By: #### P T, HEPATIC, PTT, BMP, CBC, LIPASE #### [address] Eosinophils/100 WBC (Bld) 5.4 % Normal . [facility] Comment on above: Performed By: #### P T, HEPATIC, PTT, BMP, CBC, LIPASE #### [address] Erythrocyte distribution width (RBC) [Ratio] 14.2 % Normal 11.9-15.3 [facility] Comment on above: Performed By: #### P T, HEPATIC, PTT, BMP, CBC, LIPASE #### [address] Hematocrit (Bld) [Volume fraction] 43.2 % Normal 34.0-46.4 [facility] Comment on above: Performed By: #### P T, HEPATIC, PTT, BMP, CBC, LIPASE #### [address] Hemoglobin (Bld) [Mass/Vol] 14.1 g/dL Normal 11.8-15.4 [facility] Comment on above: Performed By: #### P T, HEPATIC, PTT, BMP, CBC, LIPASE #### [address] Lymphocytes (Bld) [#/Vol] 3.3 10*3/uL Normal 1.00-4.8 [facility] Comment on above: Performed By: #### P T, HEPATIC, PTT, BMP, CBC, LIPASE #### [address] Lymphocytes/100 WBC (Bld) 28.7 % Normal . [facility] Comment on above: Performed By: #### P T, HEPATIC, PTT, BMP, CBC, LIPASE #### [address] MCH (RBC) [Entitic mass] 30.1 pg Normal 24.7-34.3 [facility] Comment on above: Performed By: #### P T, HEPATIC, PTT, BMP, CBC, LIPASE #### [address] MCV (RBC) [Entitic vol] 92.6 fL Normal 80-100 [facility] Comment on above: Performed By: #### P T, HEPATIC, PTT, BMP, CBC, LIPASE #### [address] Mean Corpuscular HGB Conc 32.6 g/dL Normal 32.0-35.0 [facility] Comment on above: Performed By: #### P T, HEPATIC, PTT, BMP, CBC, LIPASE #### [address] Monocytes (Bld) [#/Vol] 0.8 10*3/uL Normal 0.0-0.8 [facility] Comment on above: Performed By: #### P T, HEPATIC, PTT, BMP, CBC, LIPASE #### [address] Monocytes/100 WBC (Bld) 16.00 % Normal 0.00-20.00 [facility] Comment on above: Performed By: #### P T, HEPATIC, PTT, BMP, CBC, LIPASE #### [address] Monocytes/100 WBC (Bld) 6.8 % Normal . [facility] Comment on above: Performed By: #### P T, HEPATIC, PTT, BMP, CBC, LIPASE #### [address] Neutrophils (Bld) [#/Vol] 6.7 10*3/uL Normal 1.8-7.7 [facility] Comment on above: Performed By: #### P T, HEPATIC, PTT, BMP, CBC, LIPASE #### [address] Neutrophils/100 WBC (Bld) 58.5 % Normal . [facility] Comment on above: Performed By: #### P T, HEPATIC, PTT, BMP, CBC, LIPASE #### [address] NRBC% 0.1 /100{WBC} Normal 0-0.5 [facility] Comment on above: Performed By: #### P T, HEPATIC, PTT, BMP, CBC, LIPASE #### [address] Platelet mean volume (Bld) [Entitic vol] 9.8 fL Normal 6.3-10.7 [facility] Comment on above: Performed By: #### P T, HEPATIC, PTT, BMP, CBC, LIPASE #### [place] [address] [place] Platelets (Bld) [#/Vol] 314 10*3/uL Normal 150-450 [facility] Comment on above: Performed By: #### P T, HEPATIC, PTT, BMP, CBC, LIPASE #### [place] [address] [place] RBC (Bld) [#/Vol] 4.67 10*6/uL Normal 3.60-5.00 [facility] Comment on above: Performed By: #### P T, HEPATIC, PTT, BMP, CBC, LIPASE #### [facility] [address] [place] [address] [place] WBC (Bld) [#/Vol] 11.5 10*3/uL Normal 3.8-11.6 [facility] Comment on above: Performed By: #### P T, HEPATIC, PTT, BMP, CBC, LIPASE #### [facility] [address] Creatinine [Mass/volume] in Serum or PlasmaOrdered By: Joseph Wallace on 01-09-2023 Creatinine [Mass/Vol] 0.57 mg/dL 0.60-1.20 [facility] Dipstick and Microscopicon 0 01-09-2023 Appearance (U) Clear Normal Clear [facility] Comment on above: Order Comment: Name Collection Type:: Clean-Voided Midstream Performed By: #### U RDS, ADDONUAPLUS, UHCG #### [facility] [address] [place] [address] [place] Bacteria,Urine None Seen Normal None Seen [facility] Comment on above: Order Comment: Name Collection Type:: Clean-Voided Midstream Performed By: #### U RDS, ADDONUAPLUS, UHCG #### [facility] [address] [place] [address] [place] Bilirubin,Urine Negative Normal Negative [facility] Comment on above: Order Comment: Name Collection Type:: Clean-Voided Midstream Performed By: #### U RDS, ADDONUAPLUS, UHCG #### [facility] [address] [place] [address] [place] Color (U) Yellow Normal Yellow [facility] Comment on above: Order Comment: Name Collection Type:: Clean-Voided Midstream Performed By: #### U RDS, ADDONUAPLUS, UHCG #### [facility] [address] [place] [address] [place] Glucose Ql (U) Normal Normal Normal [facility] Comment on above: Order Comment: Name Collection Type:: Clean-Voided Midstream Performed By: #### U RDS, ADDONUAPLUS, UHCG #### [facility] [address] [place] [address] [place] Hyaline Casts,Urine None Seen Normal 0-8 [facility] Comment on above: Order Comment: Name Collection Type:: Clean-Voided Midstream Performed By: #### U RDS, ADDONUAPLUS, UHCG #### [facility] [address] [place] [address] Ketones Ql (U) Negative Normal Negative [facility] Comment on above: Order Comment: Name Collection Type:: Clean-Voided Midstream Performed By: #### U RDS, ADDONUAPLUS, UHCG #### [facility] [address] [place] [address] Leukocyte esterase Test strip Ql (U) Negative Normal Negative [facility] Comment on above: Order Comment: Name Collection Type:: Clean-Voided Midstream Performed By: #### U RDS, ADDONUAPLUS, UHCG #### [facility] [address] [place] [address] [place] Nitrite,Urine Negative Normal Negative [facility] Comment on above: Order Comment: Name Collection Type:: Clean-Voided Midstream Performed By: #### U RDS, ADDONUAPLUS, UHCG #### [facility] [address] [place] [address] [place] Occult Blood,Urine 1+ High Negative [facility] Comment on above: Order Comment: Name Collection Type:: Clean-Voided Midstream Performed By: #### U RDS, ADDONUAPLUS, UHCG #### [facility] [address] [place] [address] [place] pH (U) 5.5 [pH] Normal 5.0-9.0 [facility] Comment on above: Order Comment: Name Collection Type:: Clean-Voided Midstream Performed By: #### U RDS, ADDONUAPLUS, UHCG #### [facility] [address] [place] [address] [place] Protein,Urine Negative Normal Negative [facility] Comment on above: Order Comment: Name Collection Type:: Clean-Voided Midstream Performed By: #### U RDS, ADDONUAPLUS, UHCG #### [address] RBC,Urine 10-19 High 0-4 [facility] Comment on above: Order Comment: Name Collection Type:: Clean-Voided Midstream Performed By: #### U RDS, ADDONUAPLUS, UHCG #### [address] Specificy [place],Urine 1.027 Normal 1.001-1.03 0 [facility] Comment on above: Order Comment: Name Collection Type:: Clean-Voided Midstream Performed By: #### U RDS, ADDONUAPLUS, UHCG #### [address] Squamous Epithelial Cell,Urine 0-1 Normal 0-2 [facility] Comment on above: Order Comment: Name Collection Type:: Clean-Voided Midstream Performed By: #### U RDS, ADDONUAPLUS, UHCG #### [address] Urobilinogen,Urine Normal Normal Normal [facility] Comment on above: Order Comment: Name Collection Type:: Clean-Voided Midstream Performed By: #### U RDS, ADDONUAPLUS, UHCG #### [address] WBC LM.HPF (Urine sed) [#/Area] 0 /[HPF] Normal 0-4 [facility] Comment on above: Order Comment: Name Collection Type:: Clean-Voided Midstream Performed By: #### U RDS, ADDONUAPLUS, UHCG #### [place] [address] [place] Drug Screen,Urineon 01-10-20 23 Amphetamine Screen,Urine Negative Normal Negative [facility] Comment on above: Performed By: #### P T, HEPATIC, PTT, BMP, CBC, LIPASE #### [address] Barbiturate Screen,Urine Negative Normal Negative [facility] Comment on above: Performed By: #### P T, HEPATIC, PTT, BMP, CBC, LIPASE #### [address] Benzodiazepines Screen,Urine Positive High Negative [facility] Comment on above: Performed By: #### P T, HEPATIC, PTT, BMP, CBC, LIPASE #### [address] Cannabinoid Screen,Urine Positive High Negative [facility] Comment on above: Result Comment: Thes e are unconfirmed results and should not be used for legal purposes. Drug Cut-Off Concentration: AMPH 1000 ng/mL ISAURO 200 ng/mL YULY 200 ng/mL COCM 300 ng/mL OP 300 ng/mL PCP 25 ng/mL THC 20 ng/mL PERFORMED BY: [place] [address] PATHOLOGIST RN ENDOCRINOLOGY LUCRECIA NG M.D. Performed By: #### P T, HEPATIC, PTT, BMP, CBC, LIPASE #### [address] Cocaine Screen,Urine Positive High Negative [facility] Comment on above: Performed By: #### P T, HEPATIC, PTT, BMP, CBC, LIPASE #### [address] Opiate Screen,Urine Positive High Negative [facility] Comment on above: Performed By: #### P T, HEPATIC, PTT, BMP, CBC, LIPASE #### [address] Phencyclidine Screen,Urine Negative Normal Negative [facility] Comment on above: Performed By: #### P T, HEPATIC, PTT, BMP, CBC, LIPASE #### [address] ER URINE PROFILEon 3 Bilirubin Ql (U) Negative Normal NEGATIVE [facility] Comment on above: Performed By: #### VEENA LOPEZ #### [facility] [address] [place] [address] Dr. Cristopher Godoy Clarity (U) CLEAR Normal CLEAR [facility] Comment on above: Performed By: #### DEWAYNE LOPEZRO #### [facility] [address] [place] [address] Dr. Cristopher Godoy Color (U) LT. YELLOW Normal YELLOW [facility] Comment on above: Performed By: #### DEWAYNE LOPEZRO #### [facility] [address] [place] [address] Dr. Cristopher Godoy ERUAHD A micrscopic examina tion will be performed if indicated. Normal [facility] Comment on above: Performed By: #### DEWAYNE LOPEZRO #### [facility] [address] [place] [address] Dr. Cristopher Godoy Glucose Ql (U) Negative Normal NEGATIVE [facility] Comment on above: Performed By: #### DEWAYNE LOPEZRO #### [facility] [address] [place] [address] Dr. Cristopher Godoy Hemoglobin Ql (U) LARGE Abnormal NEGATIVE [facility] Comment on above: Performed By: #### DEWAYNE LOPEZRO #### [facility] [address] [place] [address] Dr. Cristopher Godoy Ketones Ql (U) Negative Normal NEGATIVE [facility] Comment on above: Performed By: #### DEWAYNE LOPEZRO #### [facility] [address] [place] [address] Dr. Cristopher Godoy LEUKOCYTES Negative Normal NEGATIVE [facility] Comment on above: Performed By: #### FATOU LOPEZICRO #### [facility] [address] [place] [address] Dr. Cristopher Godoy Nitrite Ql (U) Negative Normal NEGATIVE [facility] Comment on above: Performed By: #### FATOU LOPEZICRO #### [facility] [address] [place] [address] Dr. Cristopher Godoy pH (U) 6.0 [pH] Normal 5-9 [facility] Comment on above: Performed By: #### E RUR, UMICRO #### [facility] [address] [address] [address] Cristopher Godoy SPEC GRAVITY 1.010 Normal 1.005-<=1. 025 [facility] Comment on above: Performed By: #### E RYNER, UMICRO #### [facility] [address] [address] [address] Cristopher Godoy UA PROTEIN Negative Normal NEGATIVE/ TRACE [facility] Comment on above: Performed By: #### E RYNER, UMICRO #### [facility] [address] [address] [address] Cristopher Godoy UR MICRO IND INDICATED Normal [facility] Comment on above: Performed By: #### E RYNER, UMICRO #### [facility] [address] [place] [address] Dr. Cristopher Godoy Urobilinogen Qn (U) 0.2 {Kevin'U}/dL Normal 0.2 - 1. 0 [facility] Comment on above: Performed By: #### Cecilia MICHELER, UMICRO #### [facility] [address] [place] [address] Dr. Cristopher Godoy Eosinophils Auto (Bld) [#/Vo l]Ordered By: Joseph Wallace on 01-09-2023 Eosinophils (Bld) [#/Vol] 0.6 10*3/uL 0.0-0.45 [facility] Eosinophils/100 WBC Auto (Bl d)Ordered By: Joseph Wallace on 01-09-2023 Eosinophils/100 WBC (Bld) 5.4 % . [facility] Erythrocyte distribution wid th Auto (RBC) [Ratio]Ordered By: Joseph Wallace on 01-09-2023 Erythrocyte distribution width (RBC) [Ratio] 14.2 % 11.9-15.3 [facility] Globulin Calc (S) [Mass/Vol] Ordered By: Joseph Wallace on 01-09-2023 Globulin (S) [Mass/Vol] 2.7 g/dL [facility] Glucose [Mass/volume] in Ser um or PlasmaOrdered By: Joseph Wallace on 01-09-2023 Glucose [Mass/Vol] 85 mg/dL 74-109 [facility] Comment on above: ADA recommended refe rence rangeRandom Glucose Reference Range is dependent on time and content of last meal. Glucose of more than 200 mg/dL in a nonstressed, ambulatory subject supports the diagnosis of Diabetes Mellitus. HCG ( test) IA.rapi d Ql (U)Ordered By: Joseph Wallace on 01-09-2023 HCG ( test) Ql (U) Negative [facility] HCG,Urineon 01-09-2023 Beta HCG ( test) Ql (U) Negative Normal [facility] Comment on above: Order Comment: Name Collection Type:: Clean-Voided Midstream Result Comment: PERF ORMED BY: [place] [address] PATHOLOGIST RN ENDOCRINOLOGY LUCRECIA NG M.D. Performed By: #### U PJ, [facility] #### [address] Hematocrit Auto (Bld) [Volum e fraction]Ordered By: Joseph Wallace on 01-09-2023 Hematocrit (Bld) [Volume fraction] 43.2 % 34.0-46.4 [facility] Hemoglobin [Mass/volume] in BloodOrdered By: Joseph Wallace on 01-09-2023 Hemoglobin (Bld) [Mass/Vol] 14.1 g/dL 11.8-15.4 [facility] Hepatic Panelon 01-09-2023 Albumin [Mass/Vol] 4.4 g/dL Normal 3.5-5.7 [facility] Comment on above: Performed By: #### P T, HEPATIC, PTT, BMP, CBC, LIPASE #### [facility] [address] Albumin/Globulin [Mass ratio] 1.6 {ratio} Normal [facility] Comment on above: Performed By: #### P T, HEPATIC, PTT, BMP, CBC, LIPASE #### [facility] [address] ALP [Catalytic activity/Vol] 77 U/L Normal 34-104 [facility] Comment on above: Performed By: #### P T, HEPATIC, PTT, BMP, CBC, LIPASE #### [address] ALT [Catalytic activity/Vol] 16 U/L Normal 7-52 [facility] Comment on above: Performed By: #### P T, HEPATIC, PTT, BMP, CBC, LIPASE #### [address] AST [Catalytic activity/Vol] 16 U/L Normal 13-39 [facility] Comment on above: Performed By: #### P T, HEPATIC, PTT, BMP, CBC, LIPASE #### [address] Bilirubin [Mass/Vol] 0.5 mg/dL Normal 0.3-1.0 [facility] Comment on above: Performed By: #### P T, HEPATIC, PTT, BMP, CBC, LIPASE #### [address] Bilirubin,Indirect 0.4 mg/dL Normal [facility] Comment on above: Performed By: #### P T, HEPATIC, PTT, BMP, CBC, LIPASE #### [address] Bilirubin.indirect [Mass/Vol] 0.10 mg/dL Normal 0.03-0.18 [facility] Comment on above: Performed By: #### P T, HEPATIC, PTT, BMP, CBC, LIPASE #### [address] Globulin (S) [Mass/Vol] 2.7 g/dL Normal [facility] Comment on above: Performed By: #### P T, HEPATIC, PTT, BMP, CBC, LIPASE #### [address] Protein [Mass/Vol] 7.1 g/dL Normal 6.4-8.9 [facility] Comment on above: Performed By: #### P T, HEPATIC, PTT, BMP, CBC, LIPASE #### [address] [place] [address] [facility] Ketones Auto test strip (U) [Mass/Vol]Ordered By: Joseph Wallace on 01-09-2023 Ketones (U) [Mass/Vol] Negative Negative [facility] - Chemistry and C hemistry - challengeOrdered By: Joseph Wallace on 01-09-2023 GFR/1.73 sq M.predicted MDRD (S/P/Bld) [Vol rate/Area] mL/min/{1.73_m2} [facility] - CoagulationOrde red By: Joseph Wallace on 01-09-2023 PT Coag (PPP) [Time] 10.4 s 9.0-12.9 [facility] - UrinalysisOrder ed By: Joseph Wallace on 01-09-2023 Hyaline casts LM Ql (Urine sed) None seen [LPF] 0-8 [facility] Leukocytes [#/volume] correc ifrah for nucleated erythrocytes in Blood by Automated counOrdered By: Joseph Wallace on 01-09-2023 WBC corrected for nucl RBC Auto (Bld) [#/Vol] 11.5 10*3/uL 3.8-11.6 [facility] Lipaseon 01-09-2023 Lipase [Catalytic activity/Vol] 12.0 U/L Normal 11.0-82.0 [facility] Comment on above: Result Comment: PERF ORMED BY: [place] [address] PATHOLOGIST RN ENDOCRINOLOGY LUCRECIA NG M.D. Performed By: #### P T, HEPATIC, PTT, BMP, CBC, LIPASE #### [facility] [address] Lipase [Enzymatic activity/v olume] in Serum or PlasmaOrdered By: Joseph Wallace on 01-09-2023 Lipase [Catalytic activity/Vol] 12.0 U/L 11.0-82.0 [facility] Lymphocytes Auto (Bld) [#/Vo l]Ordered By: Joseph Wallace on 01-09-2023 Lymphocytes (Bld) [#/Vol] 3.3 10*3/uL 1.00-4.8 [facility] Lymphocytes/100 WBC Auto (Bl d)Ordered By: Joseph Wallace on 01-09-2023 Lymphocytes/100 WBC (Bld) 28.7 % . [facility] MCH Auto (RBC) [Entitic mass ]Ordered By: Joseph Wallace on 01-09-2023 MCH (RBC) [Entitic mass] 30.1 pg 24.7-34.3 [facility] MCHC Auto (RBC) [Mass/Vol]Or dered By: Joseph Wallace on 01-09-2023 MCHC (RBC) [Mass/Vol] 32.6 g/dL 32.0-35.0 [facility] MCV Auto (RBC) [Entitic vol] Ordered By: Joseph Wallace on 01-09-2023 MCV (RBC) [Entitic vol] 92.6 fL 80-100 [facility] Monocyte distribution width [Entitic volume] in Blood by AutomatedOrdered By: Joseph Wallace on 01-09-2023 Monocyte distribution width Auto (Bld) [Entitic vol] 16.00 % 0.00-20.00 [facility] Monocytes Auto (Bld) [#/Vol] Ordered By: Joseph Wallace on 01-09-2023 Monocytes (Bld) [#/Vol] 0.8 10*3/uL 0.0-0.8 [facility] Monocytes/100 WBC Auto (Bld) Ordered By: Joseph Wallace on 01-09-2023 Monocytes/100 WBC (Bld) 6.8 % . [facility] Neutrophils Auto (Bld) [#/Vo l]Ordered By: Joseph Wallace on 01-09-2023 Neutrophils (Bld) [#/Vol] 6.7 10*3/uL 1.8-7.7 [facility] Neutrophils/100 WBC Auto (Bl d)Ordered By: Joseph Wallace on 01-09-2023 Neutrophils/100 WBC (Bld) 58.5 % . [facility] Nitrite Test strip Ql (U)Ord ered By: Joseph Wallace on 01-09-2023 Nitrite Ql (U) Negative Negative [facility] No Panel InformationOrdered By: Joseph Wallace on 01-09-2023 Pharmacy Creatinine Clearance (Chem 141.51 [facility] Nucleated erythrocytes [Pres ence] in Blood by Automated countOrdered By: Joseph Wallace on 01-09-2023 Nucleated RBC Auto Ql (Bld) 0.1 /100{WBC} 0-0.5 [facility] Opiates [Presence] in Urine by Screen methodOrdered By: Joseph Wallace on 01-09-2023 Opiates Screen Ql (U) Positive Negative [facility] PREG HCG QUALon 01-09-2023 , QUAL Negative Normal NEGATIVE [facility] Comment on above: Performed By: #### P REG #### [facility] [address] [address] [address] Cristopher Godoy PROF CHEM 8 (BAS METB)on Anion gap [Moles/Vol] 10.6 mmol/L Normal [facility] Comment on above: Performed By: #### B MP #### [facility] [address] [address] [address] Cristopher Godoy Calcium [Mass/Vol] 8.7 mg/dL Normal 8.5-10.1 [facility] Comment on above: Performed By: #### B MP #### [facility] [address] [address] [address] Cristopher Godoy Chloride [Moles/Vol] 103 mmol/L Normal 98-107 [facility] Comment on above: Performed By: #### B MP #### [facility] [address] [address] [address] Cristopher Godoy CO2 [Moles/Vol] 28.0 mmol/L Normal 21.0-32.0 [facility] Comment on above: Performed By: #### B MP #### [facility] [address] [address] [address] Cristopher Godoy Creatinine [Mass/Vol] 0.62 mg/dL Normal 0.55-1.02 [facility] Comment on above: Performed By: #### B MP #### [facility] [address] [address] [address] Cristopher Godoy EGFR-AF IVORIAN >60 Normal >=60 [facility] Comment on above: Performed By: #### B MP #### [facility] [address] [place], [place] [address] Dr. Cristopher Godoy EGFR-NON AF IVORIAN >60 Normal >=60 [facility] Comment on above: Performed By: #### B MP #### [facility] [address] [address] [address] Cristopher Godoy Glucose [Mass/Vol] 128 mg/dL Critically high 74-106 [facility] Comment on above: Performed By: #### B MP #### [facility] [address] [address] [address] Cristopher Godoy Potassium [Moles/Vol] 3.6 mmol/L Normal 3.5-5.1 [facility] Comment on above: Performed By: #### B MP #### [facility] [address] [address] [address] Cristopher Godoy Sodium [Moles/Vol] 138 mmol/L Normal 136-145 [facility] Comment on above: Performed By: #### B MP #### [facility] [address] [address] [address] Cristopher Godoy Urea nitrogen [Mass/Vol] 13.0 mg/dL Normal 7.0-18.0 [facility] Comment on above: Performed By: #### B MP #### [facility] [address] [address] [address] Cristopher Godoy Urea nitrogen/Creatinine [Mass ratio] 21.0 mg/mg Normal [facility] Comment on above: Performed By: #### B MP #### [facility] [address] [address] [address] Cristopher Godoy Partial Thromboplastin Timeo n 01-09-2023 aPTT Coag (Bld) [Time] 30.5 s Normal 25.1-36.5 [facility] Comment on above: Result Comment: PERF ORMED BY: [facility] [address] [place] [address] PATHOLOGIST RN ENDOCRINOLOGY LUCRECIA NG M.D. Performed By: #### P T, HEPATIC, PTT, BMP, CBC, LIPASE #### [facility] [address] [id number] [facility] Phencyclidine Screen Ql (U)O rdered By: Joseph Wallace on 01-09-2023 Phencyclidine Ql (U) Negative Negative [facility] Platelet mean volume Auto (B ld) [Entitic vol]Ordered By: Joseph Wallace on 01-09-2023 Platelet mean volume (Bld) [Entitic vol] 9.8 fL 6.3-10.7 [facility] Platelet poor plasma interna tional normalized ratio (INR) by coagulation assay (relatOrdered By: Joseph Wallace on 01-09-2023 INR Coag (PPP) [Relative time] 0.9 {INR} [facility] Comment on above: INR Therapeutic Rang [...] 01-09-2023 Platelets (Bld) [#/Vol] 314 10*3/uL 150-450 [facility] Potassium [Moles/volume] in Serum or PlasmaOrdered By: Joseph Wallace on 01-09-2023 Potassium [Moles/Vol] 3.9 mmol/L 3.5-5.1 [facility] Protein Auto test strip (U) [Mass/Vol]Ordered By: Joseph Wallace on 01-09-2023 Protein (U) [Mass/Vol] Negative Negative [facility] Protein [Mass/volume] in Ser um or PlasmaOrdered By: Joseph Wallace on 01-09-2023 Protein [Mass/Vol] 7.1 g/dL 6.4-8.9 [facility] Prothrombin Time INRon 01-09 INR Coag (PPP) [Relative time] 0.9 {INR} Normal [facility] Comment on above: Result Comment: INR [...] T, HEPATIC, PTT, BMP, CBC, LIPASE #### [facility] [address] PT Coag (PPP) [Time] 10.4 s Normal 9.0-12.9 [facility] Comment on above: Performed By: #### P T, HEPATIC, PTT, BMP, CBC, LIPASE #### [facility] [address] RBC Auto (Bld) [#/Vol]Ordere d By: Joseph Wallace on 01-09-2023 RBC (Bld) [#/Vol] 4.67 10*6/uL 3.60-5.00 [facility] Serum or plasma albumin/glob ulin mass ratioOrdered By: Joseph Wallace on 01-09-2023 Albumin/Globulin [Mass ratio] 1.6 {ratio} [facility] Serum or plasma anion gap de terminationOrdered By: Joseph Wallace on 01-09-2023 Anion gap [Moles/Vol] 12.6 mmol/L 6.0-15.0 [facility] Serum or plasma non-glucuron idated bilirubin measurement (mass/volume)Ordered By: Joseph Wallace on 01-09-2023 Bilirubin.indirect [Mass/Vol] 0.4 mg/dL [facility] Sodium [Moles/volume] in Ser um or PlasmaOrdered By: Joseph Wallace on 01-09-2023 Sodium [Moles/Vol] 141 mmol/L 136-145 [facility] Specific gravity Auto test s trip (U) [Rel density]Ordered By: Joseph Wallace on 01-09-2023 Specific gravity (U) [Rel density] 1.027 1.001-1.03 0 [facility] Squamous epithelial cells de tection in urine sediment by light microscopyOrdered By: Joseph Wallace on 01-09-2023 Epithelial cells.squamous LM Ql (Urine sed) 0-1 [HPF] 0-2 [facility] URINE MICROSCOPIC ONLYon BACTERIA NONE SEEN Normal NONE SEEN [facility] Comment on above: Performed By: #### FATOU LOPEZICRO #### [facility] [address] [place] [address] Dr. Cristopher Godoy Bacteria identified Cx Nom (U) NOT INDICATED Normal [facility] Comment on above: Performed By: #### Cecilia BAUMAN UMICRO #### [facility] [address] [place] [address] Dr. Cristopher Godoy CAST NONE SEEN Normal NONE SEEN [facility] Comment on above: Performed By: #### Cecilia BAUMAN UMICRO #### [facility] [address] [place] [address] Dr. Cristopher Godoy Crystals LM Nom (Urine sed) NONE SEEN Normal NONE SEEN [facility] Comment on above: Performed By: #### Cecilia BAUMAN UMICRO #### [facility] [address] [place] [address] Dr. Cristopher Godoy Epithelial cells LM Ql (Urine sed) FEW Abnormal NONE SEEN /RARE [facility] Comment on above: Performed By: #### Cecilia BAUMAN UMICRO #### [facility] [address] [place] [address] Dr. Cristpoher Godoy MUCOUS NONE SEEN Normal NONE SEEN [facility] Comment on above: Performed By: #### FATOU LOPEZICRO #### [facility] [address] [place] [address] Dr. Cristopher Godoy RBC 5-10 Abnormal 0-2 [facility] Comment on above: Performed By: #### Cecilia BAUMAN UMICRO #### [facility] [address] [place] [address] Dr. Cristopher Godoy WBC 0-2 Abnormal NONE SEEN [facility] Comment on above: Performed By: #### Cecilia BAUMAN UMICRO #### [facility] [address] [place] [address] Dr. Cristopher Godoy [facility]09[facility] [address] [place] [address] Ultrasound Report Signed Patient: Sofia Andrews MR#: [id number] : 2000 Acct:[id number] Age/Sex: 22 / F ADM Date: 01/09/23 Loc: ER Room: Type: [facility] ER Attending Dr: Ordering Provider: Joseph Wallace DO Date of Service: 01/09/23 US/US pelvic complete: ABDOMINAL PAIN ([id number]) US/US transvaginal: PAIN Copies to: Joseph Wallace [...] Chelsea Ceja M.D.01/09/2023 2:27 PM Dictation Location: [place] [address] Tech: Marian Mendoza Transcribed By: CHAZ 01/09/23 1427 Dictated By: Chelsea Ceja MD 01/09/23 1344 Signed By: 01/09/23 1427 Normal [facility] Urea nitrogen [Mass/volume] in Serum or PlasmaOrdered By: Joseph Wallace on 01-09-2023 Urea nitrogen [Mass/Vol] 12 mg/dL 7 [facility] Urine bacteria detection by automated methodOrdered By: Joseph Wallace on 01-09-2023 Bacteria Auto Ql (U) None seen None Seen [facility] Urine clarity by refractomet ry automatedOrdered By: Joseph Wallace on 01-09-2023 Clarity Refractometry automated (U) Clear Clear [facility] Urine glucose measurement by automated test strip (mass/volume)Ordered By: Joseph Wallace on 01-09-2023 Glucose Auto test strip (U) [Mass/Vol] Normal mg/dL Normal [facility] Urine hemoglobin detection b y automated test stripOrdered By: Joseph Wallace on 01-09-2023 Hemoglobin Auto test strip Ql (U) 1+ Negative [facility] Urine leukocyte esterase det ection by automated test stripOrdered By: Joseph Wallace on 01-09-2023 Leukocyte esterase Auto test strip Ql (U) Negative Negative [facility] Urobilinogen Auto test strip (U) [Mass/Vol]Ordered By: Joseph Wallace on 01-09-2023 Urobilinogen (U) [Mass/Vol] Normal mg/dL Normal [facility] WBC Auto (Bld) [#/Vol]Ordere d By: Joseph Wallace on 01-09-2023 WBC (Bld) [#/Vol] 11.5 10*3/uL 3.8-11.6 [facility] pH Auto test strip (U)Ordere d By: Joseph Wallace on 01-09-2023 pH (U) 5.5 [pH] 5.0-9.0 [facility] CBC AUTO DIFFon 01-05-2023 BASO # 0.1 103/ul Normal 0.0-0.1 [facility] Comment on above: Performed By: #### C BC #### [facility] [address] [address] [address] Cristopher Godoy Basophils/100 WBC (Bld) 0.6 % Normal 0.2-2.0 [facility] Comment on above: Performed By: #### C BC #### [facility] [address] [address] [address] Cristopher Godoy EO # 0.6 103/ul Normal 0.0-0.7 [facility] Comment on above: Performed By: #### C BC #### [facility] [address] [place] [address] Dr. Cristopher Godoy Eosinophils/100 WBC (Bld) 5.7 % Normal 0.9-7.0 [facility] Comment on above: Performed By: #### C BC #### [facility] [address] [place] [address] Dr. Cristopher Godoy Erythrocyte distribution width (RBC) [Ratio] 13.6 % Normal 11.0-15.0 [facility] Comment on above: Performed By: #### C BC #### [facility] [address] [place] [address] Dr. Cristopher Godoy Hematocrit (Bld) [Volume fraction] 46.7 % Normal 36.0-48.0 [facility] Comment on above: Performed By: #### C BC #### [facility] [address] [place] [address] Dr. Cristopher Godoy Hemoglobin (Bld) [Mass/Vol] 15.2 g/dL Normal 12.0-16.0 [facility] Comment on above: Performed By: #### C BC #### [facility] [address] [place] [address] Dr. Cristopher Godoy IG # 0.03 10e3/ul Normal 0.00-0.03 [facility] Comment on above: Performed By: #### C BC #### [facility] [address] [place] [address] Dr. Cristopher Godoy IG % 0.3 % Normal 0.0-0.5 [facility] Comment on above: Performed By: #### C BC #### [facility] [address] [place] [address] Dr. Cristopher Godoy LYMPH # 3.3 103/ul Normal 1.2-3.8 [facility] Comment on above: Performed By: #### C BC #### [facility] [address] [place] [address] Dr. Cristopher Godoy Lymphocytes/100 WBC (Bld) 29.2 % Normal 20.5-60.0 [facility] Comment on above: Performed By: #### C BC #### [facility] [address] [place] [address] Dr. Cristopher Godoy MANUAL DIFF REQ NO Normal [facility] Comment on above: Performed By: #### C BC #### [facility] [address] [place] [address] Dr. Cristopher Godoy MCH (RBC) [Entitic mass] 29.9 pg Normal 26.7-34.0 [facility] Comment on above: Performed By: #### C BC #### [facility] [address] [place] [address] Dr. Cristopher Godoy MCHC (RBC) [Mass/Vol] 32.5 g/dL Normal 29.9-35.2 [facility] Comment on above: Performed By: #### C BC #### [facility] [address] [place] [address] Dr. Cristopher Godoy MCV (RBC) [Entitic vol] 91.9 fL Normal 81.0-99.0 [facility] Comment on above: Performed By: #### C BC #### [facility] [address] [place] [address] Dr. Cristopher Godoy MONO # 0.7 103/ul Normal 0.3-0.8 [facility] Comment on above: Performed By: #### C BC #### [facility] [address] [place] [address] Dr. Cristopher Godoy Monocytes/100 WBC (Bld) 6.3 % Normal 1.7-12.0 [facility] Comment on above: Performed By: #### C BC #### [facility] [address] [place] [address] Dr. Cristopher Godoy NEUT # 6.5 103/ul Normal 1.4-6.5 [facility] Comment on above: Performed By: #### C BC #### [facility] [address] [place] [address] Dr. Cristopher Godoy Neutrophils/100 WBC (Bld) 57.9 % Normal 43.0-75.0 [facility] Comment on above: Performed By: #### C BC #### [facility] [address] [place] [address] Dr. Cristopher Godoy Platelet mean volume (Bld) [Entitic vol] 11.1 fL Normal 9.5-13.5 [facility] Comment on above: Performed By: #### C BC #### [facility] [address] [place] [address] Dr. Cristopher Godoy PLT 360 103/ul Normal 150-450 [facility] Comment on above: Performed By: #### C BC #### [facility] [address] [place] [address] Dr. Cristopher Godoy RBC 5.08 106/ul Normal 4.20-5.40 [facility] Comment on above: Performed By: #### C BC #### [facility] [address] [place] [address] Dr. Cristopher Godoy WBC 11.2 103/ul Critically high 4.0-11.0 [facility] Comment on above: Performed By: #### C BC #### [facility] [address] [place], [place] [address] Dr. Cristopher Godoy ER URINE PROFILEon 3 Bilirubin Ql (U) Negative Normal NEGATIVE [facility] Comment on above: Performed By: #### U MICRO, ERUR ####[facility] [address] [place] [address]Dr. Cristopher Godoy Clarity (U) CLEAR Normal CLEAR [facility] Comment on above: Performed By: #### U MICRO, ERUR ####[facility] [address] [place] [address]Dr. Cristopher Godoy Color (U) LT. YELLOW Normal YELLOW [facility] Comment on above: Performed By: #### U MICRO, ERUR ####[facility] [address] [place] [address]Dr. Cristopher Godoy ERUAHD A micrscopic examina tion will be performed if indicated. Normal [facility] Comment on above: Performed By: #### U MICRO, ERUR ####[facility] [address] [place], [place] [address]Dr. Cristopher Godoy Glucose Ql (U) Negative Normal NEGATIVE [facility] Comment on above: Performed By: #### U MICRO, ERUR ####[facility] Up[address] [place], [place] [address]Dr. Cristopher Godoy Hemoglobin Ql (U) SMALL Abnormal NEGATIVE [facility] Comment on above: Performed By: #### U MICRO, ERUR ####[facility] [address] [place], [place] [address]Dr. Cristopher Godoy Ketones Ql (U) Negative Normal NEGATIVE [facility] Comment on above: Performed By: #### U MICRO, ERUR ####[facility] Bgoodkbded[address] [place], [place] [address]Dr. Cristopher Godoy LEUKOCYTES Negative Normal NEGATIVE [facility] Comment on above: Performed By: #### U MICRO, ERUR ####[facility] [address] [place], [place] [address]Dr. Cristopher Godoy Nitrite Ql (U) Negative Normal NEGATIVE [facility] Comment on above: Performed By: #### U MICRO, ERUR ####[facility] Faubogivir[address] [place], [place] [address]Dr. Cristopher Godoy pH (U) 6.0 [pH] Normal 5-9 [facility] Comment on above: Performed By: #### U MICRO, ERUR ####[facility] [address] [place] [address]Dr. Cristopher Godoy SPEC GRAVITY <=1.005 Abnormal 1.005-<=1. 025 [facility] Comment on above: Performed By: #### U MICRO, ERUR ####[facility] [address] [place] [address]Dr. Cristopher Godoy UA PROTEIN Negative Normal NEGATIVE/ TRACE [facility] Comment on above: Performed By: #### U MICRO, ERUR ####[facility] [address] [place] [address]Dr. Cristopher Godoy UR MICRO IND INDICATED Normal [facility] Comment on above: Performed By: #### U MICRO, ERUR ####[facility] Y[address] [place], [place] [address]Dr. Cristopher Godoy Urobilinogen Qn (U) 0.2 {Kevin'U}/dL Normal 0.2 - 1. 0 [facility] Comment on above: Performed By: #### U MICRO, ERUR ####[facility] Inioqsmaij[address] [place], [place] [address]Dr. Cristopher Godoy PREG HCG QUALon 01-05-2023 , QUAL Negative Normal NEGATIVE [facility] Comment on above: Performed By: #### P REG #### [facility] [address] [address] [address] Cristopher Godoy PROF CHEM 8 (BAS METB)on Anion gap [Moles/Vol] 15.3 mmol/L Normal [facility] Comment on above: Performed By: #### B MP ####[facility] [address] [place] [address]Dr. Cristopher Godoy Calcium [Mass/Vol] 9.8 mg/dL Normal 8.5-10.1 [facility] Comment on above: Performed By: #### B MP ####[facility] J[address] [place], [place] [address]Dr. Cristopher Godoy Chloride [Moles/Vol] 106 mmol/L Normal 98-107 [facility] Comment on above: Performed By: #### B MP ####[facility] [address] [place] [address]Dr. Cristopher Godoy CO2 [Moles/Vol] 25.2 mmol/L Normal 21.0-32.0 [facility] Comment on above: Performed By: #### B MP ####[facility] [address] [place] [address]Dr. Cristopher Godoy Creatinine [Mass/Vol] 0.58 mg/dL Normal 0.55-1.02 [facility] Comment on above: Performed By: #### B MP ####[facility] [address] [place] [address]Dr. Cristopher Godoy EGFR-AF IVORIAN >60 Normal >=60 [facility] Comment on above: Performed By: #### B MP ####[facility] T[address] [place], [place] [address]Dr. Dayanaraisa Walt EGFR-NON AF IVORIAN >60 Normal >=60 [facility] Comment on above: Performed By: #### B MP ####[facility] F[address] [place], [place] [address]Dr. Cristopher Walt Glucose [Mass/Vol] 89 mg/dL Normal 74-106 [facility] Comment on above: Performed By: #### B MP ####[facility] St[address]ioz[address] [place], [place] [address]Dr. Cristopher Walt Potassium [Moles/Vol] 4.5 mmol/L Normal 3.5-5.1 [facility] Comment on above: Performed By: #### B MP ####[facility] O[address] [place], [place] [address]Dr. Cristopher Godoy Sodium [Moles/Vol] 142 mmol/L Normal 136-145 [facility] Comment on above: Performed By: #### B MP ####[facility] Erlelodnal[address] [place], [place] [address]Dr. Cristopher Godoy Urea nitrogen [Mass/Vol] 12.0 mg/dL Normal 7.0-18.0 [facility] Comment on above: Performed By: #### B MP ####[facility] Byxuot[address]ks[address] [place], [place] [address]Dr. Yilan Godoy Urea nitrogen/Creatinine [Mass ratio] 20.7 mg/mg Normal [facility] Comment on above: Performed By: #### B MP ####[facility] [address] [place], [place] [address]Dr. Cristopher Godoy URINE MICROSCOPIC ONLYon BACTERIA NONE SEEN Normal NONE SEEN [facility] Comment on above: Performed By: #### U MICRO, ERUR ####[facility] [address] [place], [place] [address]Dr. Cristopher Godoy Bacteria identified Cx Nom (U) NOT INDICATED Normal [facility] Comment on above: Performed By: #### U MICRO, ERUR ####[facility] Y[address] [place], [place] [address]Dr. Cristopher Godoy CAST NONE SEEN Normal NONE SEEN [facility] Comment on above: Performed By: #### U MICRO, ERUR ####[facility] Z[address] [place], [place] [address]Dr. Cristopher Godoy Crystals LM Nom (Urine sed) NONE SEEN Normal NONE SEEN [facility] Comment on above: Performed By: #### U MICRO, ERUR ####[facility] U[address] [place], [place] [address]Dr. Cristopher Godoy Epithelial cells LM Ql (Urine sed) MODERATE Abnormal NONE SEEN /RARE [facility] Comment on above: Performed By: #### U MICRO, ERUR ####[facility] H[address]jc[address]igv[address] [place], [place] [address]Dr. Cristopher Godoy MUCOUS TRACE Abnormal NONE SEEN [facility] Comment on above: Performed By: #### U MICRO, ERUR ####[facility] T[address]leupaez[address] [place], [place] [address]Dr. Cristopher Godoy RBC 2-5 Abnormal 0-2 [facility] Comment on above: Performed By: #### U MICRO, ERUR ####[facility] [address] [place] [address]Dr. Cristopher Godoy WBC NONE SEEN Normal NONE SEEN [facility] Comment on above: Performed By: #### U MICRO, ERUR ####[facility] [address] [place], [place] [address]JwHawk Godoy US PELVIS TRANSVAGon 023 US PELVIS [...] by: GABBY CHARLES Date: 2023-01-05 10:03 Normal [facility] Post Op (Breast Surgery)on 0 05-08-2022 Post Op (Breast Surgery) No report was sent Normal [facility] CORONAVIRUS 2019, SCREEN ASY MPTOMATICon 04-25-2022 SARS-CoV-2 (COVID-19) RNA HUMBERTO+probe Ql (Unsp spec) Not detected Normal Not Detected [facility] Comment on above: Result Comment: . This [...] patient management decisions. Fact sheet for providers: https://www.fda.gov/media/587506/download Fact sheet for patients: https://www.fda.gov/media/273484/download This test has received FDA Emergency Use Authorization (EUA) and has been verified by [facility] ([facility]). This test is only authorized for the duration of time that circumstances exist to justify the authorization of the emergency use of in vitro diagnostic tests for the detection of SARS-CoV-2 virus and/or diagnosis of COVID-19 infection under section 564(b)(1) of the Act, 21 U.S.C. 360bbb-3(b)(1), unless the authorization is terminated or revoked sooner. [facility] is certified under CLIA-88 as qualified to perform high complexity testing. Testing is performed in the [facility] laboratories located at [address] [place] [address]. Performed By: #### C OVSC #### [address] [place] [address] Covid 19 Resultson 2 SARS-CoV-2 (COVID-19) RNA [...] by the [facility] to see if any of your [...] or Naproxen (Aleve) can also be used. Abcu-xoo-awrbfkk cough and cold medicines can be used according to the instructions on the package. Some jjdd-ugl-cpevndf medicines also contain acetaminophen. Make sure you [...] water are not available, use alcohol-based hand patient resource specialist. Avoid touching your eyes, nose, and mouth [...] 24 shaquille (more content not included)... Normal [facility] No Panel Informationon 04-25 [facility] Work Phone: [facility] Oper[facility] Reports - [facility] PREOPERATIVE DIAGNOSIS: Chronically infected sebaceous cyst, right chest. POSTOPERATIVE DIAGNOSIS: Chronically infected sebaceous cyst, right chest. OPERATION/PROCEDURE: Excision of sebaceous cyst, right chest, 5 x 2 cm area. SURGEON: Juan Taylor MD. DIRECTOR OF TEACHING AND LEARNING(S): Geraldine, PGY-1. ANESTHESIA: General and 0.5% Marcaine. [...] Juan Taylor MD EST EST DICTATION NUMBER: [id number] INTERNAL JOB NUMBER: [id number] CC: UNKNOWN UNKNOWN Juan Taylor MD Electronic Signatures: Juan Taylor) (Signed on 05-May-2022 13:45) Authored Unsigned, Draft (SYS GENERATED) (Entered on 25-Apr-2022 13:48) Entered Last Updated: 05-May-2022 13:45 by Juan Taylor) [facility] Order Reconciliationon 04-25 Order Reconciliation Page 1 [...] be shared with your follow-up providers (doctor, malt house operator, physical therapist, etc.). doxycycline hyclate 100 mg [...] greater t (more content not included)... Normal [facility] Patient Profile - Preop v3on 04-25-2022 Patient Profile - Preop v3 Patient Profile - Preop: Initial Info: Patient DemographicsName: SOFIA WIGGINS Date: 2000 Address: [address] [place] [address] Primary Phone [phone] How to be AddressedNicolette Spoken Language PreferredEnglish Source of Informationpatient Stated Reason for AdmissionR breast cyst removal Primary Contact Name and NumberTom Andrews ([facility]) [phone] Limitations on Visitors/Phone Callsnone Medications Brought to Hospitalno General Health: Patient or Family Member Reaction to Anesthesiano previous reaction Blood Avoidance/Restrictionsnon e Previous Transfusion Reactionnot applicable Health Mgmt: Symptoms/Conditions Managed at Homerespiratory Are You no Are You Currently Breastfeedingno Respiratory Symptoms/Conditionsasthma Respiratory Management Strategiesmedication therapy; routine screening Barriers to Managing Healthnone Relationship/Environ: Lives Withspouse Living Arrangementshouse Resource/Environmental Concernsnone Anticipated Transition [facility] Anticipated at Transitionnone Tobacco Use: Tobacco Useyes Tobacco Typecigarettes Last Tobacco Loo57-Mek-2157 Number of Packs per Day1 Number of yrs6 Pack yrs6 Pre-op Checklist: Arrival Onvw89-Unx-5746 Arrival Time08:08 Procedure Typebreast biospy NPOyes Last Food Axqdab27-Mxz-6608 00:00 Last Clear Fluid Hateqw39-Muo-8356 00:00 ID Band On Patientpatient ID (name), [...] 25-Apr-2022 08:09 by Saumya Crane ([place]) Normal [facility] Surgical Pathology Depar tmenton 04-25-2022 [facility] Surgical Pathology Department Name SOFIA WIGGINS Pathologist: [...] reviewed this case. Diagnostic interpretation performed at [place] [address] Clinical History: Physician Contact Number: [phone] Ischemic Time (A): 09:40 Fixative (A): Formalin [...] measures 2 x 1.1 x 1 cm. Registered Dietetic Technician sections are submitted in one cassette. AXQ [facility] Department of Pathology [address] [place] [address] Normal [facility] Comment on above: Performed By: #### U HCS #### [facility] Surgical Pathology Department [id number] Pending sale to [facility] [address] CORONAVIRUS 2019, SCREEN ASY MPTOMATICon 04-24-2022 Lab Specimen Source Nasal, Nasopharyngeal Normal [facility] Comment on above: Performed By: #### C OVSC #### [facility] [address] [place] [address] Coronavirus 2019 RNA by PCR, Screening Asymptomticon 04-24-2022 Coronavirus 2019 RNA by PCR, Screening Asymptomtic Not detected Normal See Below [facility] Work Phone: Comment on above: [...] make patient management decisions.Fact sheet for providers: https://www.fda.gov/media/777773/downloadFact sheet for patients: https://www.fda.gov/media/391385/downloadThis test has received FDA Emergency Use Authorization (EUA) and has been verified by [facility] ([facility]). This test is only authorized for the duration of time that circumstances exist to justify the authorization of the emergency use of in vitro diagnostic tests for the detection of SARS-CoV-2 virus and/or diagnosis of COVID-19 infection under section 564(b)(1) of the Act, 21 U.S.C. 360bbb-3(b)(1), unless the authorization is terminated or revoked sooner. [facility] is certified under CLIA-88 as qualified to perform high complexity testing. Testing is performed in the [facility] laboratories [place] [address] [place] [address]. Follow Up (Breast Surgery)on 04-10-2022 Follow Up (Breast Surgery) Diagnoses/Problems Assessed Infected sebaceous cyst (706.2) (L72.3,L08.9) Orders Infected sebaceous cyst Start: Doxycycline Hyclate 100 MG Oral Capsule; TAKE 1 CAPSULE EVERY 12 HOURS DAILY Rx By: Juan Taylor; Dispense: 14 Days ; #:28 Capsule; Refill: 1;For: Infected sebaceous cyst; CORINA = N; Verified Transmission to [facility]; Last Updated By: HiperScan; 04/10/2022 10:01:38 AM Start: Ketorolac Tromethamine 10 MG Oral Tablet; TAKE 1 TABLET EVERY 6 HOURS WITH FOOD Rx By: Juan Taylor; Dispense: 5 Days ; #:20 Tablet; Refill: 0;For: Infected sebaceous cyst; CORINA = N; Verified Transmission to [facility]; Last Updated By: HiperScan; 04/10/2022 10:01:39 AM Start: traMADol HCl - [...] excised. She has been receiving care at [facility]. 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 Nulliparous No use of [...] FINISHED. Vitals L-Dex Vitals Recorded: 10Apr2022 09:14AM Gguccopepfq01.5 F Heart Rate99 Fapprorn562 Vwtshoitv96 Height4 ft 11 in Fvprzi449 lb 4 oz BMI Kxqcxzbbbn62.18 kg/m2 BSA Calculated1.72 O2 Deldvgrwsc26 Physical Exam Area of the cyst is somewhat smaller can still express small amount of pus through a port in the skin. Mildly tender. Signatures Electronically signed by : Juan Taylor MD; Apr 10 2022 11:30AM EST (Author) Normal [facility] Cult, Misc + smearon 022 Bacteria identified Cx Nom (Unsp spec) [facility] Work Phone: Initial Visit (Breast [...] [facility]; Last Updated By: System, Cardize; 03/27/2022 10:41:36 AM Cult, Misc + smear; Status:Hold For - Specimen/Data Collection; Requested for:[id number]; Perform:Lab Services - Office to Draw (Non-Blood Test); Due:[id number];Ordered; For:Infected sebaceous cyst; Ordered By:Juan Taylor; Site [...] excised. She has been receiving care at [facility]. 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 Nulliparous No use of [...] AM Vitals L-Dex Vitals Recorded: 27Mar2022 09:51AM Ujzoecfokhp63.7 F Heart Rate78 Wnapvxso140 Jxstzuzzb10 Height4 ft 11 in Qvzasu754 lb 1 oz BMI Gpanprkekq06.16 kg/m2 BSA Calculated1.74 O2 Wxinvmihkn92 Physical Exam Constitutional - General appearance: In no acute distress, well appearing and well nourished. Neck - Exam: Appearance of the neck was normal. No neck masses observed. Thyroid Examination: Not enlarged and there were no palpable nodules. Pulmonary - Respiratory effort: Normal respiration. Auscultati (more content not included)... Normal [facility] MISCELLANEOUS CULT./SM.BACT. on 03-27-2022 MISCELLANEOUS CULT./SM.BACT. PATIENT: SOFIA WIGGINS LOCATION: [facility] BILL#: [id number] : [birth year] AGE: SEX: F ORDERED BY: JUAN TAYLOR SOURCE: WOUND/ABSCESS COLLECTED: 03/27/22 00:00 ANTIBIOTICS AT TIMOTHY.: RECEIVED : 03/27/22 17:02 SITE: R E S U L T S GRAM STAIN FINAL 03/27/22 19:21 NO GRANULOCYTES SEEN. 3+ GRAM VARIABLE COCCI MISCELLANEOUS CULT./SM.BACT. FINAL 03/31/22 12:04 1+ MIXED SKIN JIL 4+ ANAEROBIC MIXED BACTERIA Normal [facility] Comment on above: Performed By: #### M [facility] #### [facility] [address] [place] [address] Coding Summary.on 02-19-2022 Coding Summary. CD:[id number] Gh0bW w+PGhlYWQ+RE0LZUDdM89qdCI etC5PO3vKMK7JHYAEEXDBCW2B JR1grUI5SBznK1BdwkAz RmpncCWaVT78PXd6UMQ0wEadO WqwzI0grPHpR8f5UcThZJ49jY 90CGykDFJqBnT3KwMnhzzuwBW y C3qhCvDhqSDsJgy+PHRhYmxlI HdpZHRoPScxMDAlJyBzdHlsZT 1jOx4iUEHoNAHyhWyxtGPxXvX j c2hzGYVlTLgnZH6skYzkF6Tiy XO3YPRyn9c7Pc61ePT+PHRkIH B5kQmsBTaja460YdHvh1neIRA 3 eZUlQMhpKLA3V51vf4C0NVQxG OOoEGS2xBV4aO2noAzhgjfsX5 MenJWqDwR3SIJ3lAQquU0paWy n meptlQ9pOhq+T46SRA2NIYXAH T6MMlz4H6EtYhmsfKZ+PC90YW BeCW81gHKpxSAko1ionJs7VjL w CRTzOZN3gWiiSBmoa8KfBBGuQ 77yiNLbm7Y5KUYfdUboiXLmPx NynUK4zA6fCSudctjky7ofzrr n Xxdeb7ytiu79lG11T55wPNkgJ XTpADL4FEHtDNKgvFaxky2nxI 9wIi8+ZNuco2exn3libIc1QwA w XESusnSdjFpgSQZ3i3MjCk99X 2DmhJxty6PuEhz5ey54dHNsf0 O4jJJ6DTfdVGWntP9bHGytKuX 6 YHEyHxSyeU74uOBuGMeaId8sz GigqIlsSD9iDDZloglfFUDqpI 4lTZWzsBPkmRybDE4wWNUvuje m q395TwNeOSA4ZAAtmKVuV6Kvr E1hIlGtXQOdXRBuD7CrpVXcOK tqB086DXflPlR0QDMujtDuK3G s FYRybPxbUvN1m5M0Wr8Gr7Svs otyQDM9XChoEUU7ZvAzTkNdRu B6Y3WfOxn6SYZdgBjxVR7oG2C h DYTuctqtrfqjrOS9ULNzZBLyo D49cBBcNHitNz4jf3S6n926BQ RfWBWnxE27Ed2laMpeHUGswOQ U aA7uqprao7mbxuqzPwEgNBVsP Da9MEu4AADhfRbrVnFnYXH8Pt Z3BDY6kHKhjZ6ohDugcrylfL8 w Oyc+T95bxM5fEYE6RBD2rxsgY YGpndGyRL26QU15D2CyIujrpF FibGU+XYKsfqPlgDyaVR8eNgR j p7xbn2NrUYdfU6DzXUQlUApbW gn7ETYyFXA4zVW5tW5fWYVcZT fzx8R5gJD0U9UiplIvrn8fk3a s JRSyNCnoY14tbNLad4Y8OZRpg KE3USFchFtuXjEryE81Nhs+PG NhnHyzx5BkWungs0cjh0pykEr 9 ZiBwOVQvyyNofTaeQAI8c5XxA e25T37aUBcyIWWxHXAmBCKhEG HigQlbbm7dnP4aDf2+PGNvbCB 3 hJM3kM9cZJIfVxV5IFqlK645J pShpMVtNwgmd4pdh6oqrFz8Cw OvBYBrrnDdyKezEIN4c9KqPs9 8 C22fUNyuOKZiEDLqMUCiLLZjk Dwxvo0lmZ2eUy2+BL9uf4zwbx 03rX80uVY+HHCoAXB2rNfeEGp w LNZyhW1tFPsjXoC5XMOwEvOcy Y42jVXfZCtiFp6sjEazfFlqJW 6tXGKswxlpr040HiKrz7xmWSX w qPJaFJqnEYB4W64sn6P0LYTzE EIwUAU8dZJ8yZ6pwEvkahkjvC VqvExfbaSknQvmOJkfINhdG97 6 IHRvcDsnPlBhdGllbnQgTmFtZ Td7F1KzKxt7QJDznDllWK7cyQ AhEGnyMu6lzOwrsUuvHM4rQLS p rtkpf591PgTml0shFLUxxXOlB XxvRXM2X68ed9A2PPJwGQBfYV C4oAV8lL0soBvhbroyoBLlwAk g yhZrlZzbTZvkTVoxP012ITGjb JwrWoYdzjBbXGNorPO7RF93OK 60nISqe1G7qIG9U9SlCQNofzd t vbenoIG2FETcYKIhvK23Oo9nm AlqAl3aCPUeJGB7EIAezEDiV7 XitR7aTgBcIUGjGEBcJ5PkrXW t JRdhS042ZYunZvA5ALVndeMhV 6HvTRXvgWauXvO5c7X9Id2FU6 S8WN52FB68dEZip9U2nQN3J9Y h UXNsivyuemqcgEJ2HKQaHLZmt N35Jx5iqVooVf7mJHXdZVZ7TN PstSHuN7RooY5zBbCcNBAwYOB w R3HpyQQjCPykN701TDhnBjK6A QHbzcKtW6WyEJTvhAjfUgM7m9 V2Ys8IOTl3DM82QG64gFHqa8U 5 jGO7J2EuHIDyzoblewkkoOD1D RQdPOXunD28Rs6bvHrfTm6zJK AqLTY0GRMjyFAgJ7YffY2pCzO j XAVkAZVkH7UhmZCnWBifE915G UxrXrR6UJUaqmXxC6UiJYMlbN xcIjM8x6H9Za7YQBKpKN24PIX 5 nTZ8CA30HG65A3SwTaypaEXpo +PHRhYmxlIHdpZHRoPScxMD MmDhDxpPshGX7mTc2yRSEiONO v fCclsKNsMlKmw8mpMCMwLBooO N7enMubM6RyjML4PZHax1e9Ek 98Z60qS7MekOM+GGHstWL0nSB 0 bA1fFbXjHjX0WFvaR367AkTur VKeKobbq2chg3uunLx6CuT1FO ZvzsSesPrfVKV1m4CkSy44H58 s IHdpZHRoPSIxNSUiIHZhbGlnb f2zbT2uVl0+PMBilNO7oFJ9iX 9vVeIoBdI1RCmhP819EsPseGF v Oyhap5yxo8xxwOw5NmShQMRco jXvwTnpNED3u2GmYp04Y6TnjA ccy6AuUdv4cm50nVWem5J9hIK 9 L7GoARIwvzkccBDydTheTO4xL AIgbhmpNRVjjU0eENShV9t0Jo BhJmN3ZZmzZ0MuviX7KKCwyTM g NWtzCPS6T09io7E3GNPoUHSlB BX0gWD8iY4lbDypwnvvcFAnpS kutpSzpHjaDZqfPEueA968GVB v zRmoNGZeeD0aHPLcqUVsiNfgJ N0oBKUmeawgFeACXHBiZL0FC6 9MRVRURTwvdGQ+WEYjUMS5nHf l ZCavGODtzK5oPGZvQ0m3NtAmL yV7WWgcL7XpZYVzoellOd80uJ 1mWvFoQkP8KMvoA3LzsbC5ARP w cRKbTLeyRLM1K94wz5L7YYOiO BXvGNG8eNP4gU2znBjwjwqeqD QcdMmcgiCnfUgrOYetNMbdZ55 6 ZOMlsSmzPgXxOpTbBjJ3ODw6I 7XoPtu5VMIdoOhwEK1pkIGbLV oeAf2ogVwvaQbtCF6mTCEhuiy w FBPcfT3dNYGgvPCulQazXZ7yB IOiahppv805PlEpMIL6TKJydT UlM6KakD5mFbIsFGFvNOBnM0B l dPJdJXjjH535VVkkGsN8BPPjn xRuJ8LbSQQjhMugYfK3p7P5Ge 4yMyBZZWFyczwvdGQ+PHRkIHN 0 qJfeFVffSRUfqI1kJXXaO8s3S pKeHwC0RWmdM4DkXSUpylhjRp 35dP0kAoRzClD1EIyfD1ObppP 6 QQAlpPTlLOvhQAY6Z91vx5L6D MAvEYQrPHP0zAP0mF2etDmedf ogbGVmdDsgdmVydGljYWwtYWx p K401LVEaaKjbMxUjgOGkEYylt GQ+NLYiQMU6cFwtMVtjWWIdrZ 6eECXkJ2z1RwTnOmL3GPlpR8L h WMSbdtusHe83cZ5kSsPtBaO4W DheN8QmycS4WZRfkRMkBBurOA F9Q89se4J1FSAbJNRfAGX7tSK 4 yU6vyKlynygmlZYyrIqonhTzv MvfGYmdMSlvA286OERgtJzvWo RnSJHsZD7pgBhymZL+KC35at1 8 U8DwRazdZkg3DEEnUIX9wXM9a V5iTTYrSKxty3B3pJX7M8Ilsz Ctqc9ob8czLCZzTIrlC96nhIG w u1E4VENdvJY4GSArqDpkUeRle G93Oyc+KVLtqHgrz1RwKvwdh4 gbq6powLq1BnRoYLYiawYjwQz u TYC9g6SeEg95K00wKRrnIPYiF XWpXQGmYDQfoVewvx7opL4fVc 8+TBGyhTC2iOH8qM6lAbBkXvG 2 NDvaC829CoIlmUGaCuyck6due 3vznVf6EuPcFQQllcWceYftTD U9l2DhWt05S5ZayFwoc4MlXxr 0 gh82vUSbt6M6eNS4L0OfWULch sanmSBwrQuqLZ8vTHIyjhxaPD FgvM5gCSZnC4q3CoXeGlP0XJp u T9VofoB6RLAvlFJuMQMtjQHZf W6exswjr8reexjhXzWjHYJrXD h1RSt7LBWzvTvsLwMqMOT1FjL 2 SPG3wWAilN2yhRlagubfoN6oW yc+KWz2z3hbzXMpGA4oiHD8BJ 21HM88wDKgd0L0zRX9R4WzXRX p cfgzhgenbPB3HXEnNJYadF72W m8xaWqqSm4aMZGrANB4EODypB ZfW6OsxA3bHsAuNFNeWJIaF6J l iMQcRSfzG952QLpkFfM4TDBcu pTqG1PcSIZnbApnDxD4m3Y6Xd 9WAP60II65LL59nMPsi8O5rOQ 9 O7SvVHNtiouptwvvqLB3QNVaB KThoY05Lg1ekQkmXy7nTSKaVS P7CUSlxERkO0MarA7nHmOeRII w SVRuO3TvhNCfYGtjV592ATkvD gF6JKRxhqCwW0IpKAHppLncWy R4d2J3Mt4FVy03QJ69WR02kFP g l0K3mAZ5V2YaVOOgqgbjjwzzx WN8VRNlOHUneU65Qi2hsJjrSp 1kAYSlEMF7XUBxgZTdZ4QrbP8 y NcJjXRNuMFEyE0AmePNiHAmdF 685FHuqUfI4VYGlryArD8WbEJ HubQpxScD6d4N7Sy8EDYxhply 8 O5CwLodplNR+RM62WCKlXA52y UWrtCAhl5pueBp9PwQfXONqBE N8fIuiLWbdw4MgTNJkU24qxWG w c2U6 (more content not included)... Normal [facility] Auto Diffon 02-18-2022 Basophils/100 WBC (Bld) 0.9 % Normal 0.0-2.0 [facility] Comment on above: Order Comment: Order Added by Discern Expert. Performed By: #### 2 800086, 5456628, 56136410, 51255968, 7417439 ####[address] [address] Basophils/Leukocytes Auto (Bld) [Pure # fraction] 0.1 E9/L Normal 0.0-0.2 [facility] Comment on above: Order Comment: Order Added by Discern Expert. Performed By: #### 2 509380, 0106609, 40273508, 26593377, 0391791 ####[address] [address] Eosinophils/100 WBC (Bld) 7.0 % Normal 0.0-8.0 [facility] Comment on above: Order Comment: Order Added by Discern Expert. Performed By: #### 2 307538, 1312790, 45646555, 05850778, 0872465 ####[address] [address] Eosinophils/Leukocytes Auto (Bld) [Pure # fraction] 0.6 E9/L High 0.0-0.5 [facility] Comment on above: Order Comment: Order Added by Discern Expert. Performed By: #### 2 978970, 9332745, 62892342, 00837470, 1138984 ####[address] [address] Lymphocytes/100 WBC (Bld) 33.5 % Normal 14.0-50.0 [facility] Comment on above: Order Comment: Order Added by Discern Expert. Performed By: #### 2 349245, 1672835, 42085501, 29649183, 0860064 ####[address] [address] Lymphocytes/Leukocytes Auto (Bld) [Pure # fraction] 2.9 E9/L Normal 1.0-4.0 [facility] Comment on above: Order Comment: Order Added by Discern Expert. Performed By: #### 2 278478, 5914431, 15009418, 20230510, 8680266 ####[address] [address] Monocytes/100 WBC (Bld) 8.4 % Normal 4.0-14.0 [facility] Comment on above: Order Comment: Order Added by Discern Expert. Performed By: #### 2 565866, 5959576, 02977973, 49030819, 1621929 ####[address] [address] Monocytes/Leukocytes Auto (Bld) [Pure # fraction] 0.7 E9/L Normal 0.2-1.0 [facility] Comment on above: Order Comment: Order Added by Discern Expert. Performed By: #### 2 432350, 4833418, 09763789, 29657967, 8154416 ####[address] [address] Neutrophils/100 WBC (Bld) 50.2 % Normal 36.0-75.0 [facility] Comment on above: Order Comment: Order Added by Discern Expert. Performed By: #### 2 608439, 9136863, 54982096, 81326238, 2187229 ####[address] [address] Neutrophils/Leukocytes Auto (Bld) [Pure # fraction] 4.3 E9/L Normal 2.0-7.5 [facility] Comment on above: Order Comment: Order Added by Discern Expert. Performed By: #### 2 684474, 4550765, 58550610, 45491077, 9275551 ####[address] [address] CBC w/ Auto Diffon Erythrocyte distribution width (RBC) [Ratio] 14.6 % High 10.9-14.2 [facility] Comment on above: Performed By: #### 2 008468, 4312930, 53326019, 74142953, 0971821 ####[address] [address] Hematocrit (Bld) [Volume fraction] 45.5 % Normal 34.0-46.0 [facility] Comment on above: Performed By: #### 2 874970, 4991571, 92907973, 24894504, 7879779 ####[address] [address] Hemoglobin (Bld) [Mass/Vol] 15.0 g/dL Normal 12.0-16.0 [facility] Comment on above: Performed By: #### 2 726728, 6497777, 10505917, 81754307, 7283612 ####[address] [address] MCH (RBC) [Entitic mass] 29.6 pg Normal 27.0-34.0 [facility] Comment on above: Performed By: #### 2 365454, 2251233, 62951593, 10212388, 8415941 ####[address] [address] MCHC (RBC) [Mass/Vol] 33.0 g/dL Normal 31.4-36.0 [facility] Comment on above: Performed By: #### 2 403994, 9645960, 78229931, 85084494, 7732070 ####[address] [address] MCV (RBC) [Entitic vol] 89.7 fL Normal 80.0-100.0 [facility] Comment on above: Performed By: #### 2 925758, 1247304, 11983281, 01485886, 2605143 ####[facility] [address] [place] [address] Platelet mean volume (Bld) [Entitic vol] 10.5 fL Normal 6.4-10.8 [facility] Comment on above: Performed By: #### 2 501829, 5773294, 72616135, 97549342, 1705161 ####[address] [address] Platelets (Bld) [#/Vol] 339.0 E9/L Normal 150.0-500. 0 [facility] Comment on above: Performed By: #### 2 017815, 6596157, 73943345, 52483648, 7506971 ####[address] [address] RBC (Bld) [#/Vol] 5.1 E12/L Normal 4.3-5.9 [facility] Comment on above: Performed By: #### 2 945856, 4340149, 61302461, 70197877, 9494348 ####[address] [address] WBC corrected for nucl RBC Auto (Bld) [#/Vol] 8.6 E9/L Normal 4.0-11.0 [facility] Comment on above: Performed By: #### 2 180162, 5164432, 49018419, 36528890, 1497312 ####[address] [address] CHEMISTRYOrdered By: SYSTEM SYSTEM on 02-18-2022 Albumin [...] rate/Area] mL/min/1.73 m2 Normal >=59mL/min /1.73 m2 [facility] Chem S GFR/1.73 sq M.predicted among non-blacks MDRD (S/P/Bld) [Vol rate/Area] mL/min/1.73 m2 Normal >=59mL/min /1.73 m2 [facility] Chem S Globulin (S) [Mass/Vol] 3.6 g/dL [...] 02-18-2022 Albumin [Mass/Vol] 4.3 g/dL Normal 3.3-5.0 [facility] Comment on above: Performed By: #### 2 599647, 3536308, 92763727, 54595616, 3951111 ####[facility] [address] [place] [address] Albumin/Globulin (S) [Mass conc ratio] 1.2 Normal 1.1-2.2 [facility] Comment on above: Performed By: #### 2 388812, 9267775, 04878360, 24039460, 3389981 ####[facility] [address] [place] [address] ALP [Catalytic activity/Vol] 80 Int._Unit/L Normal 21-98 [facility] Comment on above: Performed By: #### 2 943146, 6220482, 52380025, 71399780, 5118009 ####[facility] [address] [place] [address] ALT No additional P-5'-P [Catalytic activity/Vol] 46 Int._Unit/L Normal 6-46 [facility] Comment on above: Performed By: #### 2 811115, 9989400, 56932149, 18737843, 6422652 ####[facility] [address] [place] [address] AST [Catalytic activity/Vol] 37 Int._Unit/L Normal 5-43 [facility] Comment on above: Performed By: #### 2 389317, 6536872, 38705795, 38161967, 2341742 ####[facility] [address] [place] [address] Bilirubin [Mass/Vol] 0.8 mg/dL Normal 0.0-1.1 [facility] Comment on above: Performed By: #### 2 431733, 4935189, 49613804, 80342840, 6928861 ####[facility] [address] [place] [address] Creatinine [Mass/Vol] 0.7 mg/dL Normal 0.5-1.3 [facility] Comment on above: Performed By: #### 2 884645, 5308393, 79445267, 24363688, 1738813 ####[facility] [address] [place] [address] Globulin (S) [Mass/Vol] 3.6 g/dL Normal 1.4-4.0 [facility] Comment on above: Performed By: #### 2 624992, 7879112, 99411800, 95975852, 1118371 ####[facility] [address] [place] [address] Protein [Mass/Vol] 7.9 g/dL High 6.0-7.8 [facility] Comment on above: Performed By: #### 2 484343, 8271559, 88712310, 39431070, 5906184 ####[facility] [address] [place] [address] Urea nitrogen [Mass/Vol] 11 mg/dL Normal 5-21 [facility] Comment on above: Performed By: #### 2 009509, 8446957, 63613319, 05664956, 2132671 ####[facility] [address] [place] [address] Urea nitrogen/Creatinine [Mass ratio] 16 No Units Normal 10-20 [facility] Comment on above: Performed By: #### 2 066304, 3656456, 15996310, 22923214, 1353686 ####[facility] [address] [place] [address] Anion gap [Moles/Vol] 12 mmol/L Normal 6-16 [facility] Comment on above: Performed By: #### 2 269878, 7911999, 16350526, 09443410, 0346212 ####[facility] [address] [place] [address] Calcium [Mass/Vol] 9.6 mg/dL Normal 8.9-11.1 [facility] Comment on above: Performed By: #### 2 994652, 7262966, 55319181, 48488887, 3056199 ####[facility] [address] [place] [address] Chloride [Moles/Vol] 105 mmol/L Normal 101-111 [facility] Comment on above: Performed By: #### 2 942934, 7671597, 40646761, 45082637, 1137671 ####[facility] [address] [facility] [place] [address] CO2 [Moles/Vol] 27 mmol/L Normal 21-31 [facility] Comment on above: Performed By: #### 2 011396, 7678189, 49992503, 17110879, 9772670 ####[facility] [address] [place] [address] Glucose [Mass/Vol] 69 mg/dL Normal 55-199 [facility] Comment on above: Result Comment: If t his glucose result represents a fasting glucose, interpretation should refer to the following reference range: 55-99 mg/dL Performed By: #### 2 774686, 3625562, 30251186, 74456824, 8344666 ####[facility] [address] [place] [address] Potassium [Moles/Vol] 3.9 mmol/L Normal 3.5-5.3 [facility] Comment on above: Performed By: #### 2 055843, 7022716, 58104856, 41485645, 0122906 ####[facility] [address] [place] [address] Sodium [Moles/Vol] 140 mmol/L Normal 135-145 [facility] Comment on above: Performed By: #### 2 030209, 9691941, 83850207, 66632730, 2353276 ####[facility] [address] [place] [address] Consent for Treatmenton 01-31 Consent for Treatment [id number]#[id number]:12 7 Normal [facility] Discharge Instructionson Discharge Instructions [id number]#[id number]:1 27 Normal [facility] ED Clinical Summaryon 2021 ED Clinical Summary (Inserted Image. Kelsy ble to display) [id number] ED Clinical Summary Person Information Name: SOFIA WIGGINS/Araceli Age: 21 Years : 2000 Sex: Female Language: Welsh PCP: Wandy Dorado DO Marital Status: Single [...] 02/18/2022 15:44:15 02/18/2022 15:44:15 02/18/2022 15:44:15 ADDRESS: [address] [place] [phone] PHYS DOC NOTES: MEDICAL INFORMATION: Prescriptions Given: PATIENT EDUCATION INFORMATION: Instructions: Epidermal Cyst, Sndg-co-Gcoz Follow up: With: Address: When: Sara MCGRATH, [place] In 3 days 02/21/2022 DIAGNOSIS: 1:Epidermoid cyst of skin of chest; 2:Chest pain Normal [facility] ED Note-Physicianon 02-19-20 ED Note-Physician Basic [...] few weeks ago she was seen at [facility] ED and had an abscess drained; [...] will also work on obtaining labs from [facility]. Patient to be given morphine and Zofran for her pain. Aspirin for her chest pain. Vital Signs: Reviewed the patient's vital signs. Nursing Notes: Reviewed and utilized the nursing notes. Resource Economist: not needed - patient preferred language is Welsh. Old Medical Records: The patient's available past medical records and past encounters were reviewed. Summary of pertinent elements include: Patient was initially seen on 01/08/2022 for an abscess of her chest wall. These records were not sent to us. [facility] sent over two most recent visits [...] Percocet prescri (more content not included)... Normal [facility] Comment on above: Result Comment: Elec [...] Follow these instructions at home: ? Take ukcr-gkm-tziqnxq and prescription medicines only as told by [...] cyst, or to remove it. ? Take tsqf-mrq-fxlnzls and prescription medicines only as told by [...] 11/26/2005 Document Revised: 02/09/2020 Document Reviewed: 07/28/2019 [employer] Patient Education ? 2019 [employer] Normal [facility] ED Patient Summaryon 022 ED Patient Summary (Inserted Image. Kelsy ble to display) [place] [id number] Patient Discharge Instructions Person Information Name: SOFAI WIGGINS Age: 21 Years Arrival Date: 02/18/2022 11:49:36 Discharge Diagnosis: 1:Epidermoid cyst of skin of chest; 2:Chest pain Primary Care Physician: Wanyd Dorado DO Provider Information Primary Provider: Cheng Saldaña DO Advanced Traveling Storekeeper:Fabi Iraheta PA-C The exam and treatment you received in the Emergency Department were for an urgent problem and are not intended as complete care. It is important that you follow up with a doctor, nurse practitioner, or physician?s assistant front desk manager for ongoing care. If your symptoms become [...] participating provider. Patient Education Materials: Epidermal Cyst, Bgvw-nm-Fkyu A MESSAGE TO ALL PATIENTS REGARDING OPIOIDS PRESCRIPTION OPIOIDS: WHAT YOU NEED TO KNOW Prescription opioids can be used to help relieve zwycxkfi-wi-cwqlxn pain and are often prescribed following a [...] be struggling with addiction, tell your health intensive care anaesthetist and ask for guidance or call [facility] National Helpline at 4-293-767-RPLV. m Source: [place] Department of Health and (more content not included)... Normal [facility] HEMATOLOGYOrdered By: SYSTEM SYSTEM on 02-18-2022 [...] [facility] HemeAutoSS Outside Recordson 02-18-2022 Outside Records [id number]#[id number]:1 27 Normal [facility] Prescriptions/Work Noteson 0 02-18-2022 Prescriptions/Work Notes [id number]#[id number]:1 27 Normal [facility] SEROLOGYOrdered By: Tod For ster on 02-18-2022 HCG.beta subunit (U) [Moles/Vol] Negative Normal [facility] Man Sero Troponin 0 Hr.on 02-18-2022 Troponin I.cardiac [Mass/Vol] ng/mL Low 10.10-27.1 0 [facility] Comment on above: Result Comment: The 95% CI (Confidence Interval) PPV (Positive Predictive Value) for myocardial infarction in females is 38 pg/mL, in males 51 pg/mL. The results should be used in conjunction with clinical conditions of myocardial infarction. (Access High Sensitivity Troponin I Instructions For Use, [employer]apper, June 2018) Performed By: #### 2 135777, 4896571, 19724711, 10892668, 8377992 ####[facility] [address] [place] [address] U BetaHcg Qualon 02-18-2022 HCG.beta subunit (U) [Moles/Vol] Negative Normal [facility] Comment on above: Performed By: #### 2 0916100, 71409326 ####[facility] [address] [place] [address] UA With Cult Reflexon 2021 Epithelial cells.squamous LM.HPF (Urine sed) [#/Area] 0-2 Normal 0-2 [facility] Comment on above: Performed By: #### 2 3608029, 61998704 ####[facility] [address] [place] [address] [place].plasma/[place] .RBC (Bld) [Mass ratio] 0-3 Normal 0-3 [facility] Comment on above: Performed By: #### 2 4163044, 69994811 ####[facility] [address] [place] [address] WBC LM.HPF (Urine sed) [#/Area] 0-5 Normal 0-5 [facility] Comment on above: Performed By: #### 2 7800844, 03723898 ####[facility] [address] [place] [address] Bilirubin Ql (U) Negative Normal Negative [facility] Comment on above: Performed By: #### 2 2748979, 26118524 ####[facility] [address] [place] [address] Clarity (U) CLEAR Normal Clear [facility] Comment on above: Performed By: #### 2 3078473, 44999272 ####[facility] [address] [place] [address] Color (U) STRAW Invalid Interpretation Code [facility] Comment on above: Performed By: #### 2 1006960, 13479458 ####[facility] [address] [place] [address] Glucose Test strip (U) [Mass/Vol] Negative Normal Negative [facility] Comment on above: Performed By: #### 2 3701803, 45281704 ####[facility] [address] [place] [address] Hemoglobin Ql (U) TRACE Abnormal Negative [facility] Comment on above: Performed By: #### 2 6550200, 83501330 ####[facility] [address] [place] [address] Ketones (U) [Mass/Vol] Negative Normal Negative [facility] Comment on above: Performed By: #### 2 2342020, 37556647 ####[facility] [address] [place] [address] Nitrite Ql (U) Negative Normal Negative [facility] Comment on above: Performed By: #### 2 9887026, 27427617 ####[facility] [address] [place] [address] pH (U) 6.5 [pH] Invalid Interpretation Code 5.0-9.0 [facility] Comment on above: Performed By: #### 2 4145291, 07128101 ####[facility] [address] [place] [address] Protein (U) [Mass/Vol] Negative Normal Negative [facility] Comment on above: Performed By: #### 2 4147866, 87237790 ####[address] [address] Specific gravity (U) [Rel density] <=1.005 Invalid Interpretation Code 1.005-1.03 0 [facility] Comment on above: Performed By: #### 2 8188660, 80924564 ####[address] [address] Type of Urine collection method Random Urine Normal [facility] Comment on above: Performed By: #### 2 0906894, 46854696 ####[address] [address] Urobilinogen Qn (U) 0.2 {Kevin'U}/dL Normal 0.0-1.0 [facility] Comment on above: Performed By: #### 2 3819591, 37525559 ####[address] [address] WBC Auto Ql (U) Negative Normal Negative [facility] Comment on above: Performed By: #### 2 8138543, 74120729 ####[facility] [address] [place] [address] URINALYSISOrdered By: Tod camp on 02-18-2022 Bilirubin [...] PM) Normal Negative [facility] UA Auto SS [place].plasma/[place] .RBC (Bld) [Mass ratio] 0-3 /HPF Normal [...] FT UA Auto SS Urobilinogen Qn (U) 0.8780626 {Kevin'U}/dL Normal 0.0 - 1.0 EU/dL [facility] [...] M.D. Transcribed by: DARWIN Technologist: KENYA Metcalf [facility] eGFRon 02-18-2022 GFR/1.73 sq M.predicted among blacks MDRD (S/P/Bld) [Vol rate/Area] mL/min/{1.73_m2} Normal >=59 [facility] Comment on above: Order Comment: Order added by Discern Expert. Result Comment: eGFR is race adjusted. AA=. Performed By: #### 2 [id number] ####[facility] [address] [place] [address] GFR/1.73 sq M.predicted among non-blacks MDRD (S/P/Bld) [Vol rate/Area] mL/min/{1.73_m2} Normal >=59 [facility] Comment on above: Order Comment: Order added by Discern Expert. Result Comment: Transition Rn zhao kidney disease could be indicated at eGFR's of less than 60 mL/min/1.73m2. Kidney failure is indicated at less than 15 mL/min/1.73m2. Performed By: #### 2 [id number], [id number] ####[facility] [address] [place] [address] Coding Summary.on 04-30-2021 Coding Summary. CD:[id number] Gh0bW w+PGhlYWQ+YX6PFOUmX71lvPG vkI9TD5mYJA6ESIHYHQCWYV7H IT6ibNG3VKuhZ1XdvaJj KcsiySIcME59NDu6GXB5tRkxP VaejT9clCSyP7y3SxJhRQ54bJ 58KCwwVEGsMxE6YfUgwvmduFW y W5oiIkSsnXEjGcw+PHRhYmxlI HdpZHRoPScxMDAlJyBzdHlsZT 9eEy5pTMGlLFKlxTdvaWThMcB j j3zoMUMrIKbdAL8euEyxC8Ulp KV7WBUkp3m6Oh44zTC+PHRkIH S2dBrcKAoum419WtZjy7rpIEW 3 tMBuUXfxHCM9T56bb4C6CAKlT XMjKGB2fAJ4iA6zuBlbavqoX4 DlpBRwSwR5QCT2pKBxtM5dqQj n gooeaI0hXwh+N30VXE2DNXFQR Z3QQeg6M2TmMboqwEF+PC90YW ViDN27xNQmaXGhe5wdrZj6TtV w NDFvYTN6fBfmBYwof9LxURRiT 03qwWKqv0G7JJUhgFonxFZcNb SylFH3wG1zYStcjlpuo0ppiax n Rehru3anhd82lO84R65zIJwkL CLaCIF2YTBwTITtlUqfqc2rpH 9wIi8+NInnr6rug2hpzYt3GcN w RMHneiYtkCbxJCD4o8JsYs64C 1DwmWzdy5LwJbe1sc14uNIuo9 I0hLQ2UTwwTXQzzZ5vOLcbGuL 6 LJOkLcMamJ66zULiVMccYi8go PwaoMznJU8zOPToxzbaKBTkdZ 2aBEXalAPrpOmiRZ1bKKAtdtk m f774BcOsDLW5ZTBmiGMkM7Ppa I6kZeMgUUZsUZQlJ0ClfSWdCZ vnA002TJhbSyL0GURikqLxY1G s MJLrvRjkIbX0s7W8Ik6Gi2Nlj qrvGMP9BTbiNAB3KjN8CuFwHx V6T2IwTnp1PKRgvGpiOU6nT8X h LYFtyxdnncbhwEB9NWYgXKPfk T35rEUoTMtiVr5em5Y7v801JW CbTSTahB30Oa7frQfxQUQxePP U sH3yzeoqe7acvyisWiBfFDTrI Aq9JSd1CYYphTnzYzWmUMW3Il G2LBM7xYPwaZ3rfVwkcjpqjD1 w Oyc+A92koA3jSAR6DKI4fyucI VZmzsIiCH26FW93H6ClPnwrrA FibGU+MWQvnkEqoLrxCX4lIxB j d8are7SbXAtfC9MsEAKnNVreY jv0XIDtAPU2pVI9aS9lGRKuIL qdl6L8aIN4R3BmfxCvqa0mf4f s RHFeYFhwS12npZHkq2M7WEBxd MA0BEXipXwzVcXtzZ11Sbx+PG PowUqyd5XdAogrb3hvc9fhxZr 9 NbAvBRZbulPpbObaHMJ4s4WrY s25E03kFJzxODQyOQDbGMOwLQ HdsAhchz1jaT0tEc1+PGNvbCB 3 cIK9aV2vITNkLsA2LOxxA373Y xUpdYYvGnosi0qtk3gwdYs5Cb RfPGEhejHysFulFRX6h2JgNa3 8 A29jUMojNZDuXEQmKBKyOWZlq Wndnu0gfC4pKn9+CB4fx3qinn 67fE50iQG+TWUlCRQ7oCtiQRd w KLKewQ4iBSkrTlQ2KQOmJqXej C84uCIrNWbiZr3vrLoqnLfbSA 2xQVVaxwdhu800DcTee2ztFMF w vAGmYTulMGU8J41cg5D1WTIyE HEvOYJ7bSX5yK1zkIzvliuqcP ItzNbbfiWjfVetYQonCEifD01 6 IHRvcDsnPlBhdGllbnQgTmFtZ Iv4Z9ZsRuy5SAMisOkuDP3igK CsCBrwZp5okUaaxGfwFY2tPHR p llkiw238OjWrq8jlARBhqPTqP AdwEBH0E49si5T6VODuDALuHP Q4sXK0eP0puSsmcvsxkVOgtMp g ymAddDncTJrlAWzjB782JTCrz LjhXqQvlkGkDNUndDD7YZ52QF 49fICek9X0wLL4R5YbVXKozfz t ushnpYM5IVTlYTGhhF95Im7ur LwaBp4fSPNiUDP0VNXxtPDlI8 PbaX9vGoYlALEmLKZaL8IciKJ t LUwoV032JNmkNoW8FKMxhcInX 9WqDSWpuGivPvN9y7K1Mv6SO3 O1NX73MQ30uRPdo2W9aLS1A9R h VPKgmrkleqtyfSW6ETCqYNVuf G70Pi8xbBoiHh1jLIRiDBF4RC MjkLYcA2RcrK9xPvOhQJYlDKL w V8HtzFIrRJyiA183DUoqTcR1K KVcmpVkN8QrUYGiyGayDwG5z2 F8Ox5IWJp0YQ09JQ83oNPgs0I 5 xMQ2J3UbVJUnkzdbyantlJJ4A ZKmWSBldQ63Jv9kvYqdNc9zDT QgZIE0PHGbeMDpK4KthU4eKiM j MTFpJQYrF1RhkPUeOQzeW064W SpnKtC1TDQccmSuV5LhCKAciZ heZfG1u9C2Zb5TOYVlTL50TVR 5 gFB7ZM60IN21G0OzIdwyjXBjq +PHRhYmxlIHdpZHRoPScxMD OzAtCyqEizTC5jPu2yRUBvHXN v cSwzuALfSbTfj3imRGElNZsbY I3xmBhqZ9BwyDS4YRSag8j2En 83X50dO1SonCT+BLCksVE4qNG 0 jE2iDiBrClY5UHnyQ342BoOon GAjIjnde2xis6yiaLb7JjL1AP VhgeVgiVyiFHL0p4WqLn46P21 s IHdpZHRoPSIxNSUiIHZhbGlnb j3yrE9eVt9+QIDbwJQ2gAE5qM 8dEjVnCwU7VBcqL440QiXteJL v Hehpx8scc9uzzNn3KyOdFBLpp lErnJcpAXE7z8HiRd00U6IwlW ffn5EtLhn0vi22kPVvn3G4rOA 9 A3LlKNTnhmzjhDWqyTusLT1vG ZEaahtkSOAdsX8vIOYqB6h6Pw HoVoN4GTdfG1CdtbU9JPCucOP g DHkiZEK2H04aq7E7JVAuOVKfB JD2rJH1yN6kaVlzyirenMOecI didwIfdGpyYXgxKEvyU693HHL v hXnmJODswN4aJTFgoSChxVybC G1jYRHnqwgxByGNBXIhSP7BJ5 9MRVRURTwvdGQ+PXVdKBN2kDp l ANkzEWOjyV5dEUXpP2e5NvPqU pJ4DGubH5JpKAGanvgyWh36rX 6xPsWeFgL2RCjwL0NsfgT8ORI w eQHcABdmIHF3I60kt9X4IEXbQ YFdLOB6fPW7uV8dnQlrdngbvC MqcHjfuuGjkUawXGdpJOtvF63 6 OPZvoHhjKzUzUiClMdR9GMh3W 9KePpy7QQTomFlbCU2vxJVwSO lnXy2aoYhnaMjzCB0qFUAaxed w VCZnnE0zGHOkzZZpmFfiMO0wD FNyvuxcn869QbKuPAC5DPWqmK WaA8AamS3aLjLkPNTsIXRrQ5C l uTZqPDkzH005AAwzGhY8WXRhb xMdR6TlECAijRriVdQ3z4W9Hl 4yMiBZZWFyczwvdGQ+PHRkIHN 0 aWmnSUfgYNBziF1jPRCjC9e7G tLoQpS3VUtjW4EsBKIsglfzYo 76sB9iDmGzStM6LMjmM3ZpjmL 6 RQRbaCJoMIbmXDB3F87gy0D7T HXwNEVkFJO1rNE5xL7kdGusew ogbGVmdDsgdmVydGljYWwtYWx p K042BJZljMdzImMniTOvJAunc GQ+LSHeIGP9qGbhPQtpQNPsoU 7xGXBcV5v0OfKeZxT9BQlqS7X h JZOjniguHq12sY7zDgIiXtS2L EfzV8KethG0NDXnxUIhCAwpCM P6U95ev9E0VEKbCTLyKXL8dYQ 4 lU4ubPkpedvoqXVmuMpufeYjo RzkQMxbVPbgD864EFEqyGwcKr KxLDKsGR5huPjfcXO+OL41id4 8 Y9BqEqjdMxp3IGWiMID3uFM4z V7tAWThVPjfq1G4iSF7M8Ofdy Gciu0oa6kxQETnCMckI75qmTZ w x6I1GLRhnXS8YZKyyPjlNjRvd G93Oyc+PCMxbOwpb3QoBzjma0 xec5mpeHo7NoQiXRSlanJzqMv u NMJ7v5BqVb02W48yDPqwQVOuT VEjFMKeFCXmxGcrmi7jyG6vRs 8+JAJasDE1jXK8oF5wVeQzSaI 2 MUtpD913WaDdoIYlNziij3ybs 1axtNz0PuEhZSTfelOofAhqRA V9f3PjDh36T2SndTjlr4YgDgc 0 hh12qYGqu4D2uCQ7V3RrSZQfr slpaNQjoHqbDJ2xQKCzfprwML JueS8uTDHuR5u7MyIkSnB2ATk u Y9VsbaS7EMSzbULvLYZstPITa Y1lcvszg1llepggEnVdNRCaUL v9EIj0SKUhjMjlYrJlADP5VjC 2 LHE7eGMzzS8ieHxdyimgmZ4jZ yc+VYg2y2ypvIVgFQ6xiLY1TV 23GQ25uMRqr2G0iCT3F6MpYJC p tnyrevkolWY3XRWmVKIcyA85U n5tyAgfQf8aDRXzKTA3DGKaoH NcT7WpwA6fImFfARIwXTCbT1F l vAUhZPtpZ386LPvwMhV1KRJxi lFjL3GrMEOwhVweTyK0o8J3Cz 5ANH64IU26OL59oDElf9T8rZE 9 N6JnRXPojzfouflscAW5JXAiE IKlzL68Cf4bwHixBp5rCPJdLG L7IAEmrJLnX9RqyK4iQiAiXDD w MQSlA4QreCEfGOmkU896AYodO tN1EVWplwMrF8OgKDCcoZbbCp K9n0P5Ow4GZi63SV95SD94iTG g i8N6yZP9H0QzOCOyasbyxdrfl KU4TEGbYIGsjY41Od9nmIywXt 0jJBFyFHH2NEHyrDAsN7GfcS3 y QvXdAPMuOUXcR4BeqDPdEGdtQ 583UWaaOjI0LGBbtjAhN7LoAP EgtRenPjV6m4W0Wy6BNHkbjgs 8 L5IlIjrpeOO+ZD43JEMmFP11v JQvgABie7mfcLd4HhDiNDOxON G2oCssSRses5BmSOMgD07xfAQ w c2U6 (more content not included)... Normal [facility] ED Note-Physicianon 04-30-20 ED Note-Physician Basic [...] Appropriate mood & affect. Integumentary: Warm, Dry, Obion Medical Decision Making Plain film x-rays were [...] EDT [address] [place] [address]- Business (1) Additional Instructions: Ice to the [...] available. Diagnostic Results No qualifying data available. [facility] Comment on above: Result Comment: Elec [...] Lance M.D. Transcribed by: DARWIN Technologist: ZAK [facility] Consent for Treatmenton 04-03 Consent for Treatment [id number]:12 7 [facility] Discharge Instructionson Discharge Instructions [id number]:127 Normal [facility] ED Clinical Summaryon 2020 ED Clinical Summary (Inserted Image. Kelsy ble to display) [place] [id number] ED Clinical Summary Person Information Name: SOFIA WIGGINS/New_Dg Age: 20 Years : 2000 Sex: Female Language: Welsh PCP: Wandy Dorado DO Marital Status: Single [...] 04/29/2021 17:51:20 04/29/2021 17:51:20 04/29/2021 17:51:20 ADDRESS: [address] [place] [address] [facility] [id number] PHYS DOC NOTES: MEDICAL INFORMATION: Prescriptions Given: [...] When: Wandy Munroe, [address] [place] [address] Business (1) In 3 days 05/02/2021 Comments: Ice to the wrist, wear the splint at all times. Medications as directed. DIAGNOSIS: 1:Tendinitis of wrist; 2:Left wrist pain Normal [facility] ED Patient Education Noteon 04-29-2021 ED [...] by your health care provider. ? Take bgzn-gjo-tvjbfdu and prescription medicines only as told by [...] Reviewed: 03/09/2019 Elsevier Patient Education ? 2020 [employer] Wrist Pain, Adul (more content not included)... Normal [facility] ED Patient Summaryon 021 ED Patient Summary (Inserted Image. Kelsy ble to display) [address] [id number] Patient Discharge Instructions Person Information Name: SOFIA WIGGINS Age: 20 Years Arrival Date: 04/29/2021 15:18:05 Discharge Diagnosis: 1:Tendinitis of wrist; 2:Left wrist pain Primary Care Physician: Wandy Dorado DO Provider Information Primary Provider: Alton Francisco DO Advanced Traveling Storekeeper:Andrew Rainey PA-C The exam and treatment you received in the Emergency Department were for an urgent problem and are not intended as complete care. It is important that you follow up with a doctor, nurse practitioner, or physician?s assistant front desk manager for ongoing care. If your symptoms become worse or you do not improve as expected and you are unable to reach your usual health care provider, you should return to the Emergency Department. We are available 24 hours a day. SOFIA WIGGINS has been given the following list of patient education materials, prescriptions and follow-up instructions: Follow-up Instructions: With: Address: When: Wandy Dorado [facility] [address] , [address] [id number] [facility] (1) In 3 days 05/02/2021 [...] opioids can be used to help relieve exiuyffq-qo-cgdonw pain and are often prescribed following a [...] your he (more content not included)... Normal [facility] Ambulatory Clinical Summaryo n 04-12-2021 Ambulatory Clinical Summary {[id number]}C [id number] Normal [facility] Family Medicine Video Visit - Telehealthon [...] Contact Information Barbara Sen Only if needed [email or web address] Additional Instructions: Patient Education Health Maintenance, Female [...] Wandy Grigsby MA 04/09/2021 15:52 EDT Normal [facility] Comment on above: Result Comment: Elec [...] Ask your heal (more content not included)... [facility] Provider Letteron 04-09-2021 Provider Letter (Inserted Image. Kelsy ble to display) April 09, 2021 SOFIA WIGGINS [address] [place] [address] To Whom It May Concern, Please excuse above patient from work. Date of Illness: From: 04/03 To: 04/09 May Return to Work On:04/10 Sincerely, [facility] [address] [place] [address] [facility] CHEST, SPECIAL VIEWS(AMANDAUB/Carlos RODRIGUEZ)on 09-30-2018 CHEST, SPECIAL VIEWS(AMANDAUB/UMAIR) Name: SOFIA WIGGINS STUDY:CHEST, SPECIAL VIEWS(DEBUB/UMAIR); 09/30/2018 7:06 pm INDICATION:Signs/Symptoms : fall off hosre. COMPARISON:None. ORDERING CLINICIAN:JOHNIE WELLINGTON FINDINGS: CARDIOMEDIASTINAL SILHOUETTE:Cardiomediasti nal silhouette is normal in size and configuration. LUNGS:Lungs are clear. BONES:No acute osseous changes. IMPRESSION:1. No evidence of acute cardiopulmonary process.Electronically signed by: ARACELI GONZALEZ MD Normal [facility] CT C-SPINE WO CONTRASTon CT C-SPINE [...] sinuses.Electronically signed by: JUAN JASSO MD Normal [facility] CT HEAD WO CONTRASTon 2017 CT [...] Electronically signed by: JUAN JASSO MD Normal [facility] PELVIS, 1 OR 2 VIEWSon 09-30 PELVIS, 1 OR 2 VIEWS t Name: SOFIA WIGGINS STUDY:PELVIS, 1 OR 2 VIEWS; 09/30/2018 7:06 pm INDICATION:Signs/Symptoms : fall off horse last night. COMPARISON:None. ORDERING CLINICIAN:JOHNIE WELLINGTON FINDINGS:AP pelvis. The osseous structures and soft tissues appear normal. Nofracture or dislocation is noted IMPRESSION:Unremarkable pelvis Electronically signed by: ARACELI GONZALEZ MD Normal [facility] Provider Note - ED v2on 09-03 [...] signs ofdeformity. No edema.Skin: Warm and dryNeuro: community service coordinator are grossly intact. No facial asymmetry. Moves [...] be present.Please call if questions. Johnie [facility], [facility], PGY 3 HISTORY OF PRESENTING [...] a day SIGNIFICANT EVENTS: No documented data. 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 Data Referenced From Triage - ED 09/30/2018 06:34 PM Normal [facility] Risk Screen - Adult Emergenc yon 09-30-2018 Risk Screen - Adult Emergency Preferred Language:Preferred Language: Preferred Language for Discussing Health Care (patient/designee)Welsh Advanced Directives: Advance Directive Medicalno Advance Directive [...] Learning Preferencesverbal instruction Cultural Considerationsnone Developmental Considerationsnone Orthodox Considerationsnone Learning Assessment (Other Learner):Learning Assessment (Other [...] an injured patient at a Trauma Center ([facility]): no Electronic Signatures:Kateryna Troy (RN) (Signed 30-Sep-2018 19:18)Authored: Preferred Language, Advanced Directives, Family Violence Adult,Suicide / Depression, Learning Assessment (Patient), Learning Assessment (OtherLearner), Fall Risk Adult, Pressure Injury, Respiratory / Cough /TB,Smoking/Social History (Required age 13 or older), CAGE Last Updated: 30-Sep-2018 19:18 by Kateryna Troy (RN) [facility] SHOULDER, CMPLT, MIN 2 VIEWS on 09-30-2018 SHOULDER, CMPLT, MIN 2 VIEWS Name: SOFIA WIGGINS STUDY:SHOULDER, CMPLT, MIN 2 VIEWS; 09/30/2018 7:06 pm INDICATION:Signs/Symptoms : fall off horse last night. COMPARISON:None. ORDERING CLINICIAN:JOHNIE WELLINGTON FINDINGS:Right shoulder three views. The osseous structures and soft tissuesappear normal. No fracture or dislocation is noted IMPRESSION:Unremarkable right shoulder Electronically signed by: ARACELI GONZALEZ MD Normal [facility] Triage - EDon 09-30-2018 Triage - [...] at time of triage.).Onset of the Complaint: [id number] Date/Time: 30-Sep-2018 18:34Pain Rating (0-10): Rest: 8Vital Signs:Temperature: 97.1F ( 36.2C)Blood Pressure: 132/80 Mean:Heart Rate: 92Respiratory Rate: 18Pulse Oximetry: 97% on room air, no respiratory support. Height: 4 feet 11.00inches. 149.8 CMWeight: 135.0 pounds. Calculated 61.2 kg.Calculated BMI (kg/m2): 27.272 Calculated BSA (m2) 1.60 Cough lasting greater than 3 weeks: noPatient immunocompromised related to: N/ATravel outside of [place]: noAllergies: noLast menstrual period: 34-[id number]-3163TSH: 2 Symptoms Are POSITIVE For:facial pain and [...] 30-Sep-2018 18:38 by Regine Lundberg (KYA) Normal [facility] Vital Signs Date Time Vital Sign Value Performing Clinician Facility 01-13-2024 08:39-0400 Body height 151.1 cm [employer] Work Phone: [employer] 01-13-2024 08:39-0400 Body mass index (BMI) [Ratio] 33.96 kg/m2 [employer] Work Phone: [employer] 01-13-2024 08:39-0400 Body weight 77.56 kg [employer] Work Phone: [employer] 01-13-2024 08:39-0400 Diastolic blood pressure 82 mm[Hg] Tiburcio Crawford DO Work Phone: [employer] 01-13-2024 08:39-0400 Systolic blood pressure 122 mm[Hg] Tiburcio Crawford DO Work Phone: [employer] 12-01-2023 11:00-0500 Body height 125.27 cm Kayley Mo Other [employer] Other 12-01-2023 11:00-0500 Body mass index (BMI) [Ratio] 39.31 kg/m2 Kayley Mo Other [employer] Other 12-01-2023 11:00-0500 Body temperature 101.2 [degF] Kayley Mo Other [employer] Other 12-01-2023 11:00-0500 Body weight 61.69 kg Kayley Mo Other [employer] Other 12-01-2023 11:00-0500 Respiratory rate 18 /min Kayley Mo Other [employer] Other 12-01-2023 11:00-0500 SaO2% (BldA) [Mass fraction] 97 % Kayley Mo Other [employer] Other 09-24-2023 08:48-0500 Body height 149.86 cm DO Shauna Atkinson Work Phone: [facility] 09-24-2023 08:48-0500 Body temperature 97.4 [degF] DO Shauna Atkinson Work Phone: [facility] 09-24-2023 08:48-0500 Body weight 67.13 kg DO Shauna Atkinson Work Phone: [facility] 09-24-2023 08:48-0500 Diastolic blood pressure 56 mm[Hg] DO Shauna Atkinson Work Phone: [facility] 09-24-2023 08:48-0500 Heart rate 99 /min DO Shauna Atkinson Work Phone: [facility] 09-24-2023 08:48-0500 Respiratory rate 18 /min DO Shauna Atkinson Work Phone: [facility] 09-24-2023 08:48-0500 SaO2% (BldA) [Mass fraction] 97 % DO Shauna Atkinson Work Phone: [facility] 09-24-2023 08:48-0500 Systolic blood pressure 119 mm[Hg] DO Shauna Atkinson Work Phone: [facility] 01-09-2023 15:00-0500 Diastolic blood pressure 71 mm[Hg] DO Shauna Atkinson Work Phone: [facility] 01-09-2023 15:00-0500 Heart rate 76 /min DO Shauna Atkinson Work Phone: [facility] 01-09-2023 15:00-0500 Respiratory rate 16 /min DO Shauna Atkinson Work Phone: [facility] 01-09-2023 15:00-0500 SaO2% (BldA) [Mass fraction] 96 % DO Shauna Atkinson Work Phone: [facility] 01-09-2023 15:00-0500 Systolic blood pressure 107 mm[Hg] DO Shauna Atkinson Work Phone: [facility] 01-09-2023 11:40-0500 Body height 149.86 cm DO Shauna Atkinson Work Phone: [facility] 01-09-2023 11:40-0500 Body temperature 97.6 [degF] DO Shauna Atkinson Work Phone: [facility] 01-09-2023 11:40-0500 Body weight 79 kg DO Shauna Atkinson Work Phone: [facility] 10-13-2022 11:52-0500 Body height 149.86 cm DO Shauna Atkinson Work Phone: [facility] 10-13-2022 11:52-0500 Body temperature 98.7 [degF] DO Shauna Atkinson Work Phone: [facility] 10-13-2022 11:52-0500 Body weight 78 kg DO Shauna Atkinson Work Phone: [facility] 10-13-2022 11:52-0500 Diastolic blood pressure 66 mm[Hg] DO Shauna Atkinson Work Phone: [facility] 10-13-2022 11:52-0500 Heart rate 90 /min DO Shauna Atkinson Work Phone: [facility] 10-13-2022 11:52-0500 Respiratory rate 18 /min DO Shauna Atkinson Work Phone: [facility] 10-13-2022 11:52-0500 SaO2% (BldA) [Mass fraction] 96 % DO Shauna Atkinson Work Phone: [facility] 10-13-2022 11:52-0500 Systolic blood pressure 113 mm[Hg] DO Shauna Atkinson Work Phone: [facility] 10-12-2022 16:07-0500 Body height 152.4 cm DO Shauna Atkinson Work Phone: [facility] 10-12-2022 16:07-0500 Body temperature 99.1 [degF] DO Shauna Atkinson Work Phone: [facility] 10-12-2022 16:07-0500 Body weight 78 kg DO Shauna Atkinson Work Phone: [facility] 10-12-2022 16:07-0500 Diastolic blood pressure 67 mm[Hg] DO Shauna Atkinson Work Phone: [facility] 10-12-2022 16:07-0500 Heart rate 87 /min DO Shauna Atkinson Work Phone: [facility] 10-12-2022 16:07-0500 Respiratory rate 16 /min DO Shauna Atkinson Work Phone: [facility] 10-12-2022 16:07-0500 SaO2% (BldA) [Mass fraction] 95 % DO Shauna Atkinson Work Phone: [facility] 10-12-2022 16:07-0500 Systolic blood pressure 127 mm[Hg] DO Shauna Atkinson Work Phone: [facility] 04-10-2022 09:14-0400 Body height 149.86 cm No PCP None [facility] Work Phone: 04-10-2022 09:14-0400 Body mass index (BMI) [Ratio] 34.18 kg/m2 No PCP None [facility] Work Phone: 04-10-2022 09:14-0400 Body surface area Derived from formula 1.72 m2 No PCP None [facility] Work Phone: 04-10-2022 09:14-0400 Body temperature 97.5 [degF] No PCP None [facility] Work Phone: 04-10-2022 09:14-0400 Body weight 76.77 kg No PCP None [facility] Work Phone: 04-10-2022 09:14-0400 Diastolic blood pressure 83 mm[Hg] No PCP None [facility] Work Phone: 04-10-2022 09:14-0400 Heart rate 99 /min No PCP None [facility] Work Phone: 04-10-2022 09:14-0400 SaO2% (BldA) [Mass fraction] 98 % No PCP None [facility] Work Phone: 04-10-2022 09:14-0400 Systolic blood pressure 140 mm[Hg] No PCP None [facility] Work Phone: 03-27-2022 09:51-0400 Body height 149.86 cm No PCP None [facility] Work Phone: 03-27-2022 09:51-0400 Body mass index (BMI) [Ratio] 35.16 kg/m2 No PCP None CD[facility] Work Phone: 03-27-2022 09:51-0400 Body surface area Derived from formula 1.74 m2 No PCP None [facility] Work Phone: 03-27-2022 09:51-0400 Body temperature 97.7 [degF] No PCP None OT[facility]jrspz[facility] n [facility] Work Phone: 03-27-2022 09:51-0400 Body weight 78.95 kg No PCP None PG[facility] Work Phone: 03-27-2022 09:51-0400 Diastolic blood pressure 83 mm[Hg] No PCP None [facility] Work Phone: 03-27-2022 09:51-0400 Heart rate 78 /min No PCP None HP[facility]ls[facility]bh[facility] Work Phone: 03-27-2022 09:51-0400 SaO2% (BldA) [Mass fraction] 99 % No PCP None KR[facility] Work Phone: 03-27-2022 09:51-0400 Systolic blood pressure 121 mm[Hg] No PCP None [facility] Work Phone: 02-18-2022 15:00-0400 Diastolic blood pressure 63 mm[Hg] Cheng Saldaña [facility] 02-18-2022 15:00-0400 Heart rate 79 /min Cheng Saldaña [facility] 02-18-2022 15:00-0400 Mean blood pressure 79 mm[Hg] Cheng Piotr [facility] 02-18-2022 15:00-0400 SaO2% (BldA) [Mass fraction] 100 % Cheng Piotr [facility] 02-18-2022 15:00-0400 Systolic blood pressure 111 mm[Hg] Cheng Piotr [facility] 02-18-2022 14:00-0400 Diastolic blood pressure 52 mm[Hg] Hceng Piotr [facility] 02-18-2022 14:00-0400 Heart rate 94 /min Cheng Piotr [facility] 02-18-2022 14:00-0400 Mean blood pressure 71 mm[Hg] Cheng Piotr [facility] 02-18-2022 14:00-0400 SaO2% (BldA) [Mass fraction] 94 % Cheng Piotr [facility] 02-18-2022 14:00-0400 Systolic blood pressure 108 mm[Hg] Cheng Piotr [facility] 02-18-2022 13:52-0400 Heart rate 85 /min Cheng Piotr [facility] 02-18-2022 13:52-0400 Respiratory rate 16 /min Cheng Piotr [facility] 02-18-2022 13:52-0400 SaO2% (BldA) [Mass fraction] 98 % Cheng Piotr [facility] 02-18-2022 11:54-0400 Body temperature 98.24 [degF] Cheng Saldaña [facility] 02-18-2022 11:54-0400 Diastolic blood pressure 65 mm[Hg] Cheng Saldaña [facility] 02-18-2022 11:54-0400 Heart rate 102 /min Cheng Saldaña [facility] 02-18-2022 11:54-0400 Systolic blood pressure 118 mm[Hg] Cheng Saldaña [facility] Encounters Encounter Date Encounter Type Care Provider Facility Start: 01-25-2024 Telephone encounter Alicia Ohara RN [facility] Start: 01-20-2024 End: 01-21-2024 ambulatory [facility] Start: 01-19-2024 Orders Only Tiburcio Stuart Crawford DO Work Phone: [facility] Comment on above: Medication managemen t (Primary Dx) Start: 01-13-2024 End: 01-14-2024 ambulatory [facility] Comment on above: Pelvic pain; Dysmenorrhea Start: 01-13-2024 End: 01-13-2024 Encounter for gynecological examination (general) (routine) without abnormal findings Tiburcio Crawford DO Work Phone: [employer] Work Phone: Start: 01-13-2024 End: 01-13-2024 Patient encounter procedure Tiburcio Crawford DO Work Phone: [employer] Start: 01-13-2024 End: 01-13-2024 Periodic preventive med est patient 18-39 yrs Tiburcio Crawford DO Work Phone: [facility] Comment on above: Well woman exam with routine gynecological exam (Primary Dx); Cervical smear, as part of routine gynecological examination; Pelvic pain; Dysmenorrhea Start: 12-01-2023 End: 12-01-2023 ambulatory Kayley Mo Other [employer] Other Start: 12-01-2023 Office outpatient vi sit 25 minutes Kayley Mo [facility] Start: 11-03-2023 End: 11-03-2023 ambulatory Cheng Cruz Other [employer] Other Start: 11-03-2023 Office outpatient vi sit 15 minutes Cheng Cruz [facility] Start: 09-28-2023 End: 09-28-2023 ambulatory Cheng Cruz Other [employer] Other Start: 09-28-2023 Office outpatient ne w 30 minutes Cheng Cruz [facility] Start: 09-24-2023 End: 09-24-2023 Emergency department patient visit Alton Boss Facility:[facility] Start: 09-24-2023 End: 09-24-2023 Emergency department patient visit DO Shauna Atkinson Work Phone: [facility] Work Phone: Start: 02-23-2023 End: 02-23-[address] ISRAEL MISC Facility:[facility] Start: 01-09-2023 End: 01-09-2023 Emergency department patient visit Joseph Wallace Facility:[facility] Start: 01-09-2023 End: 01-09-2023 Emergency department patient visit DO Shauna Atkinson Work Phone: [facility] Work Phone: Start: 01-09-2023 End: 01-09-[address] ISRAEL MISC Facility:[facility] Start: 01-05-2023 End: 01-05-[address] ISRAEL MISC Facility:[facility] Start: 12-05-2022 End: 12-05-[address] ISRAEL MISC Facility:[facility] Start: 10-13-2022 End: 10-13-2022 Emergency department patient visit DO Shauna Atkinson Work Phone: [facility] Start: 10-12-2022 End: 10-12-2022 Emergency department patient visit DO Shauna Atkinson Work Phone: [facility] Start: 10-11-2022 End: 10-11-[address] GIOVANA GILMORE Facility:[facility] Start: 05-03-2022 Chart Update No PCP None [facility]: Start: 04-29-2022 AUDIT No PCP None [facility] [address] Work Phone: Start: 04-10-2022 FUV, Provider: Juan Taylor, Status: Pen, Time: 9:00 AM No PCP None [facility] [place] Work Phone: Start: 04-10-2022 Office outpatient vi sit 15 minutes No PCP None [facility] [place] Work Phone: Start: 04-09-2022 Chart Update No PCP None [facility] [place] Work Phone: Start: 03-27-2022 Office outpatient ne w 30 minutes No PCP None [facility] Work Phone: Start: 02-18-2022 End: 02-18-2022 Emergency department patient visit Cheng Saldaña [facility] Start: 09-30-2018 Emergency dept visit high severity&threat funcj JAGDISH ARGUELLO [facility] Start: 09-30-2018 End: 09-30-2018 Patient encounter [...] (2 - Td or Tdap) [facility] Start: 01-12-2027 Screening for malign ant neoplasm of cervix Pap Smear [facility] Start: 01-12-2025 Adult BMI Screening Adult BMI Screen ing [facility] Start: 01-12-2025 Depression Screening Depression Scre ening [facility] Start: 01-12-2025 Tobacco Screening Tobacco Screening [facility] Start: 01-20-2024 End: 01-20-2024 Patient encounter procedure 01/20/2024 8:00 AM EDT Appointment [facility] Ultrasound [address] [place] [address] Tiburcio Crawford, DO [address] [place] [address] [facility] - Ultrasound Start: 01-20-2024 Subsequent hospital visit by physician 01/20/2024 8:00 AM EDT Hospital Encounter [facility] - Ultrasound [address] [place] [address] Tiburcio Crawford, [place] [facility] [place] [address] [facility]ound Start: 01-13-2024 End: 01-12-2025 Cytopathology procedure, preparation of smear, genital source Pap Smear Pathology and Cytology Routine Cervical smear, as part of routine gynecological examination Expected: 01/13/2024 (Approximate), Expires: 01/12/2025 [facility] Work Phone: Comment on above: Expected: 01/13/2024 (Approximate), Expires: 01/12/2025 Start: 01-13-2024 End: 01-12-2025 US Pelvis transabdominal and transvaginal Ultrasound pelvic with transvaginal Imaging Routine Pelvic pain Expected: 01/13/2024, Expires: 01/12/2025 [facility] Comment on above: Expected: 01/13/2024 , Expires: 01/12/2025 Start: 12-10-2023 Adult BMI Follow Up Plan Adult BMI Follow Up Plan [facility] Start: 07-03-2023 COVID-19 Vaccine () COVID-19 Vaccine () [facility] Start: 07-03-2023 Influenza vaccination Influenza Vacc ine [facility] Start: 10-12-2022 [facility] Start: 05-08-2022 POV, Provider: Juan Taylor, Status: Pen, Time: 10:00 AM POV, Provider: Juan Taylor, Status: Pen, Time: 10:00 AM [facility] [address] Work Phone: Start: 04-10-2022 FUV, Provider: Juan Taylor, Status: Pen, Time: 9:00 AM [facility] Work Phone: Start: 2019 Screening for malign ant neoplasm of cervix Pap Smear [facility] Start: 1998 Tobacco Counseling Tobacco Counselin g [facility] Alanine aminotransfe rase [Enzymatic activity/volume] in Serum or Plasma by No addition of P-5'-P [facility] Work Phone: Albumin [Mass/volume ] in Serum or Plasma [facility] Work Phone: Albumin/Globulin ratio [facility] Work Phone: Alkaline phosphatase [Enzymatic activity/volume] in Serum or Plasma [facility] Work Phone: Anion gap measurement [facility] Work Phone: Aspartate aminotrans ferase [Enzymatic activity/volume] in Serum or Plasma [facility] Work Phone: Basophils [#/volume] in Blood by Automated count [facility] Work Phone: Basophils/100 leukoc ytes in Blood by Automated count [facility] Work Phone: Bilirubin.total [Mass/volume] in Serum or Plasma [facility] Work Phone: Calcium [Mass/volume ] in Serum or Plasma [facility] Work Phone: Carbon dioxide, tota l [Moles/volume] in Serum or Plasma [facility] Work Phone: End: 01-18-2025 CBC W Auto Differential panel - Blood CBC auto differential Lab Routine Medication management 1 Occurrences starting 01/19/2024 until 01/18/2025 [employer] Work Phone: Comment on above: 1 Occurrences starti ng 01/19/2024 until 01/18/2025 Chloride [Moles/volu me] in Serum or Plasma [facility] Work Phone: End: 01-18-2025 Comprehensive metabolic 2000 panel - Serum or Plasma Comprehensive metabolic panel Lab Routine Medication management 1 Occurrences starting 01/19/2024 until 01/18/2025 [employer] Comment on above: 1 Occurrences starti ng 01/19/2024 until 01/18/2025 Creatinine and Glome rular filtration rate.predicted panel - Serum, Plasma or Blood [facility] Work Phone: Eosinophils [#/volum e] in Blood [facility] Work Phone: Eosinophils/100 leuk ocytes in Blood by Automated count [facility] Work Phone: Erythrocyte distribu tion width [Ratio] by Automated count [facility] Work Phone: Erythrocytes [#/volu me] in Blood [facility] Work Phone: Globulin [Mass/volum e] in Serum [facility] Work Phone: Glucose [Mass/volume ] in Serum or Plasma [facility] Work Phone: Hematocrit [Volume Fraction] of Blood [facility] Work Phone: Hemoglobin [Mass/vol ume] in Blood [facility] Work Phone: Leukocytes [#/volume ] corrected for nucleated erythrocytes in Blood by Automated coun [facility] Work Phone: Leukocytes [#/volume ] in Blood [facility] Work Phone: Lymphocytes [#/volum e] in Blood by Automated count [facility] Work Phone: Lymphocytes/100 leuk ocytes in Blood by Automated count [facility] Work Phone: MCH [Entitic mass] b y Automated count [facility] Work Phone: MCHC [Mass/volume] b y Automated count [facility] Work Phone: MCV [Entitic volume] by Automated count [facility] Work Phone: Measurement of renal function [facility] Work Phone: Monocytes [#/volume] in Blood by Automated count [facility] Work Phone: Monocytes/100 leukoc ytes in Blood by Automated count [facility] Work Phone: Neutrophils [#/volum e] in Blood by Automated count [facility] Work Phone: Neutrophils/100 leuk ocytes in Blood by Automated count [facility] Work Phone: Nucleated erythrocyt es [Presence] in Blood by Automated count [facility] Work Phone: Patient Education [facility] Work Phone: Patient referral [facility] Work Phone: Platelet mean volume [Entitic volume] in Blood by Automated count [facility] Work Phone: Platelets [#/volume] in Blood [facility] Work Phone: Potassium [Moles/vol ume] in Serum or Plasma [facility] Work Phone: Protein [Mass/volume ] in Serum or Plasma [facility] Work Phone: Sodium [Moles/volume ] in Serum or Plasma [facility] Work Phone: Urea nitrogen [Mass/volume] in Serum or Plasma [facility] Work Phone: Payers Date Payer Category Payer Self-pay [id number] 2022 Medicaid [employer] HMO [id number] 2022-Present [phone] [address] [place] [address] [id number] 1998 Unknown [id number] 1998 Unknown [id number] 1998 Unknown [id number] 1998 Unknown [id number] 1998 Unknown [id number] 1998 Unknown [id number] 1998 Unknown [id number] 1998 Unknown [id number] 1998 Unknown [id number] 1961 Medicaid [id number] 1961 Medicaid [id number] Medicaid [id number] Medicaid [id number] Unknown [employer] Unknown O [id number] Unknown [id number] Unknown [id number] Unknown [id number] Social History Date Type Detail Facility Start: 02-18-2022 Tobacco smoking status Heavy t obacco smoker (finding) [facility] Start: 04-14-2019 End: 01-13-2024 Sex Assigned At Female [facility] Start: 10-12-2022 End: 09-24-2023 Tobacco smoking status NHIS Smoker (finding) [facility] Start: 1998 Sex Assigned At Female [facility] Start: 12-10-2022 Tobacco smoking stat us NJIS Smokes tobacco daily [facility] History of tobacco use Cigarette Smoker P [facility] Start: 12-10-2022 End: 01-13-2024 Cigarettes smoked current (pack per day) - Reported 0.3 [facility] Start: 12-10-2022 Tobacco use and exposure Smokeless tobacco non-user [facility] Start: 01-13-2024 Alcohol intake Ex-drinker (finding) [facility] Adolescent depressio n screening assessment 5 [facility] Start: 12-10-2022 Alcohol Comment social [facility] Start: 12-23-2022 Gender identity Identifies as female gender (finding) [facility] Start: 12-23-2022 Sexual orientation Heterosexual (umesh landrum) [facility] Clinical Notes 11-03-2021 to 01-25-2024 Telephone [...] Reyes documented in this encounter [facility] 01-25-2024 Telephone encount er Note Patient called to inquire if we had the results from her ultrasound. She is advised that the ultrasound was normal. She is advised to call if further needs. KYA Reyes [facility] 01-19-2024 History of Presen t illness Narrative CBC and CMP ordered per insurance request to refill her ibuprofen documented in this encounter [facility] 01-13-2024 Miscellaneous Notes Formattin g of this note might be different from the original. Patient will need a CBC and a CMP to check her blood counts and her liver/kidney function unknown need to continue the ibuprofen. documented in this encounter [facility] 01-13-2024 Telephone encount er Note Patient will need a CBC and a CMP to check her blood counts and her liver/kidney function unknown need to continue the ibuprofen. [facility] [employer] [facility] 01-13-2024 History of Presen t illness [...] like to pursue. 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 Excision right chest cyst 5x2 cm 2. Complex closure 5cm 3. 4. 5. Surgeon: Claudia Resident/Fellow/Other Cpr Instructor: Geraldine Anesthesia: General, 0.5% marciane Estimated Blood Loss (mL): 3cc Specimen: yes. right skin cyst Findings: sebaceous cyst removed without visible pus Patient Returned To/Condition: To RR in sat cond Attestation: Note Completion: Attending AttestationI was present for the entire procedure Electronic Signatures: Juan Taylor) (Signed 25-Apr-2022 10:40) Authored: Post Operative Note, Note Completion Last Updated: 25-Apr-2022 10:40 by Juan Taylor)[facility] 04-25-2022 NoteHistory & Physical Reviewed: /Lactating: Are [...] the note. I personally evaluated the patient [id number] Electronic Signatures: Sascha Chandler (Resident)) (Signed 25-Apr-2022 08:43) Authored: History & Physical Reviewed, ERAS, Consent, Note Completion Juan Taylor) (Signed 05-May-2022 13:45) Authored: Note Completion Co-Signer: History & Physical Reviewed, ERAS, Consent, Note Completion Last Updated: 05-May-2022 13:45 by Juan Taylor) References: 1. Data Referenced From Patient Profile - Preop v3 25-Apr-2022 08:07[facility]04-19-2022 Hospital Discharge instructions Patient Education 02/18/2022 14:56:49 Epidermal Cyst, Ultw-rz-Mdbe Epidermal Cyst An epidermal cyst is a [...] yourself. Follow these instructions at home: Take hzry-nbt-gaksviw and prescription medicines only as told by [...] the cyst, or to remove it. Take vqbj-vof-fxhxiqu and prescription medicines only as told by [...] 11/26/2005 Document Revised: 02/09/2020 Document Reviewed: 07/28/2019 [employer] Patient Education 2020 [employer]. Follow Up Care 02/18/2022 11:50:54 With:Sara MCGRATH, Ernesto Brooks, FREEMAN Address: When:02/21/2022 [facility]04-19-2022 Evaluation + Plan noteExtracted from: [...] With Cult Reflex XR Chest 2 Views [facility]01-02-2022 History of Present illness Narrative* Sofia Wiggins is a 21 year old female presenting to the breast center with a chronic right chest skin abscess that she would like excised. She has been receiving care at [facility]. 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 Diagnosed at age 50. * Maternal grandfather with lung and liver cancer [facility] Work Phone: [phone] 399-320801-02-2022 History of Present illness Narrative* Sofia Wiggins is a 21 year old female presenting to the breast center with a chronic right chest skin abscess that she would like excised. She has been receiving care at [facility]. 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 Diagnosed at age 50. * Maternal grandfather with lung and liver cancer [facility] Work Phone: Evaluation noteNo assessment information available [facility] Work Phone: Evaluation note* Diagnosis Well woman exam with routine gynecological exam- Primary Routine gynecological examination Cervical smear, as part of routine gynecological examination Screening for malignant neoplasm of the cervix Pelvic pain Dysmenorrhea [facility] Diagnosis Medication management- Primary [facility] Diagnosis Pelvic pain Dysmenorrhea [facility] N[facility] - Reported* Type Description Date Medical History None Surgical History Tonsils Surgical History [place] [employer] Other History general Narrative - Reported* Type Description Date Medical History None Surgical History Tonsils Surgical History [place] [facility] Surgical History C section Hospitalization History See Above [employer] Other Hospital course Narrative No data available for this section [facility] Additional Instructions Take zpsg-ujc-ciohlwv cough and cold medication as needed for symptoms May take the Zofran every 8 hours as needed Use your albuterol inhaler every 4 hours as needed for wheezing cough shortness of breath Increase oral fluids Follow-up with family doctor as needed Return to the ER for significant respiratory distress chest pain vomiting or any [facility] Work Phone: Hospital Discharge instructions Additional Instructions If your symptoms return/worsen or you develop any further concerns or symptoms please see your doctor or return to the emergency department immediately.[facility] Work Phone: Hospital Discharge instructions Additional Instructions Continue your Tylenol and ibuprofen at home Follow-up with your orthopedic physician Return if symptoms are worse[facility] Work Phone: InstructionsNot on filedocumented [...] section and content) DATE CREATED AUTHOR 10/11/2018 [facility] DATE CREATED AUTHOR AUTHOR'S ORGANIZ ATION 02/19/2022 [facility] DATE CREATED AUTHOR AUTHOR'S ORGANIZ ATION 05/05/2022 [facility] DATE CREATED AUTHOR AUTHOR'S ORGANIZ ATION 05/12/2022 [employer] DATE CREATED AUTHOR AUTHOR'S ORGANIZ ATION 02/25/2023 [facility] DATE CREATED AUTHOR AUTHOR'S ORGANIZ ATION 12/03/2023 [facility] DATE CREATED AUTHOR AUTHOR'S ORGANIZ ATION 12/11/2023 [facility] DATE CREATED AUTHOR AUTHOR'S ORGANIZ ATION 01/14/2024 [facility] DATE CREATED AUTHOR AUTHOR'S ORGANIZ ATION 01/28/2024 [facility] Care Teams (unrecognized sec tion and content) Team Status: Inactive Member Role Status Dates Shauna Atkinson , Primary Care Provider Active Martinez Kumar , DO Emergency Provider Active Team Status: Active Member Role Status Dates Shauna Atkinson , Primary Care Provider Active Team Status: Inactive Member Role Status Dates Shauna Atkinson , Primary Care Provider Active Payton Hernández , [facility] Emergency Provider Active Team Status: Inactive Member Role Status Dates Shauna Atkinson , Primary Care Provider Active Joseph Wallace , Emergency Provider Active Team Status: Inactive Member Role Status Dates Shauna Atkinson , Primary Care Provider Active Alton Boss MD Emergency Provider Active [employer] Kaleid[employer] Analyst Relationship Specialty Start Date End Date Shauna Atkinson DO [address] [place] [id number] PCP - General Family Medicine 12/15/22 [employer] Relationship Specialty Start Date End Date Shauna Atkinson DO [address] [place] [id number] PCP - General Family Medicine 12/15/22 [employer]st Relationship Specialty Start Date End Date Shauna Atkinson DO [address] [place] [id number] PCP - General Family Medicine 12/15/22 [employer]st Relationship Specialty Start Date End Date Shauna Atkinson DO [address] [place] [id number] PCP - General Family Medicine 12/15/22 Goals (unrecognized section and content) Goals may be documented in a n alternate section REASON FOR VISIT (unrecogniz ed section and content) Reason Comments Annual Exam Pt is here for annua l exam. Last pap was several years at [place]. Pt is due for pap. Gynecologic Exam [...] BE BASED ON THE PRIMARY CLINICAL RECORDS. AT [employer]. provides no warranty or guarantee of the accuracy or completeness of information in this document.
--- NOTE | 2024-10-16 05:52 | ED.NAVMDI1 ---
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 vomiting and diarrhea that started last night at work, patient mentioned that she also had some fever 2 hours ago She is denying any cough or runny nose and she is denying any body ache Related Data Home Medications ?Medication ?Instructions ?Recorded ?Confirmed albuterol sulfate 90 mcg/actuation 2 puff inhalation Q6H PRN 07/24/24 10/16/24 aerosol inhaler shortness of breath or wheezing escitalopram oxalate 10 mg tablet 10 mg PO DAILY 07/24/24 10/16/24 hydroxyzine pamoate 25 mg capsule 25 mg PO BID PRN insomnia 07/24/24 10/16/24 pregabalin 75 mg capsule 75 mg PO BID 07/24/24 10/16/24 escitalopram oxalate 20 mg tablet 20 mg PO DAILY 10/16/24 10/16/24 (Lexapro) phentermine 37.5 mg capsule 37.5 mg PO DAILY 10/16/24 10/16/24 Previous Rx's ?Medication ?Instructions ?Recorded guaifenesin 600 mg tablet, 600 mg PO Q12H PRN congestion #10 06/16/24 extended release 12 hr (Mucinex) tabs prednisone 20 mg tablet 40 mg (2 x 20 mg) PO DAILY 5 days 06/16/24 #10 tabs promethazine 25 mg tablet 25 mg PO TID PRN nausea and 10/16/24 vomiting #14 tabs Allergies Allergy/AdvReac Type Severity Reaction Status Date / Time ketorolac (From Toradol) Allergy Severe Hives Verified 10/16/24 05:36 Penicillins Allergy Severe Hives Verified 10/16/24 05:36 tramadol Allergy Severe Hives Verified 10/16/24 05:36 Review of Systems ROS Status of ROS 10 or more systems reviewed and unremarkable except as noted in history and below PFSH PFSH Social History Smoking status: Current every day smoker Little interest or pleasure in doing things: not at all Feeling down, depressed, or hopeless: not at all Exam Narrative Exam Narrative: Nurses notes and vital signs reviewed and patient is not hypoxic. General: Well-appearing and in no apparent distress. Skin: Warm, dry, no pallor noted. No rash. Head: Normocephalic, atraumatic. Neck: Supple, non-tender. Eye: Pupils are equal, round and EOMI. No scleral icterus. Ears, Nose, Mouth, and Throat: TM are clear, no nasal mucosal hypertrophy. Oral mucosa is moist, no posterior oropharynx erythema, uvula is mid-line Cardiovascular: Regular Rate and Rhythm without murmur, gallop or rub. Respiratory: No accessory muscle use or respiratory distress. Lungs are clear to auscultation, no wheezing, rales or rhonchi Chest Wall: no tenderness Back: No midline thoracic or lumbar vertebral tenderness. No CVA tenderness Musculoskeletal: normal ROM, no calf or popliteal tenderness, no lower extremity edema/swelling GI: Abdomen is soft, non-distended. Normal bowel sounds. No masses appreciated. No tenderness to palpation. No rebound, guarding, or rigidity noted. Neurological: A&O x4. No cranial nerve dysfunction observed. No truncal ataxia. Moves all extremities. Sensation intact. Psychiatric: Cooperative and interactive. Normal mood and affect. Constitutional Vital Signs, click to edit/add: Last Vital Signs Temp 98.5 F 10/16/24 05:32 Pulse 96 H 10/16/24 05:32 Resp 16 10/16/24 05:32 BP 103/85 10/16/24 05:32 Pulse Ox 96 10/16/24 05:32 O2 Del Method Room Air 10/16/24 05:32 Course Vital Signs Vital signs: Vital Signs Temperature 98.5 F 10/16/24 05:32 Pulse Rate 96 H 10/16/24 05:32 Respiratory Rate 16 10/16/24 05:32 Blood Pressure 103/85 10/16/24 05:32 Pulse Oximetry 96 10/16/24 05:32 Oxygen Delivery Method Room Air 10/16/24 05:32 Temperature 98.5 F 10/16/24 05:32 Pulse Rate 96 H 10/16/24 05:32 Respiratory Rate 16 10/16/24 05:32 Blood Pressure 103/85 10/16/24 05:32 Pulse Oximetry 96 10/16/24 05:32 Oxygen Delivery Method Room Air 10/16/24 05:32 MDM - Nausea/Vomiting/Diarrhea MDM Narrative Medical decision making narrative: The patient provided with Zofran as well as hydration COVID test was positive, the patient was instructed about hydration and provided with Phenergan to go home with for nausea medication As the Amparo interacts with her medication that why preferred Phenergan The patient to come back to the ER in case of any increase in her current symptoms she is to follow-up with her doctor within a week The patient is to follow up with primary care physician in next 2-3 days or to return to the emergency department should any of the signs or symptoms worsen or new symptoms develop. The patient agrees with the following Diagnosis and Treatment plan and the patient will be discharged home. Lab Data Labs: Lab Results 10/16/24 Range/Units 05:55 SARS-CoV-2 Ag (CV2AG) Positive A (NEGATIVE) Discharge Plan Discharge Chief Complaint: Nausea/Vomiting/Diarrhea Clinical Impression: Gastroenteritis, COVID-19 Patient Disposition: Home, Self-Care Time of Disposition Decision: 05:54 Condition: Good Prescriptions / Home Meds: New promethazine 25 mg tablet 25 mg PO TID PRN (Reason: nausea and vomiting) Qty: 14 0RF No Action prednisone 20 mg tablet 40 mg PO DAILY 5 Days Qty: 10 0RF guaifenesin [Mucinex] 600 mg tablet extended release 12hr 600 mg PO Q12H PRN (Reason: congestion) Qty: 10 0RF albuterol sulfate 90 mcg/actuation HFA aerosol inhaler 2 puff INHALATION Q6H PRN (Reason: shortness of breath or wheezing) escitalopram oxalate 10 mg tablet 10 mg PO DAILY pregabalin 75 mg capsule 75 mg PO BID hydroxyzine pamoate 25 mg capsule 25 mg PO BID PRN (Reason: insomnia) phentermine 37.5 mg capsule 37.5 mg PO DAILY Rx Instructions: must administer 30 minutes before or 1-2 hours after breakfast escitalopram oxalate [Lexapro] 20 mg tablet 20 mg PO DAILY Print Language: Danish Instructions: COVID-19 (Coronavirus Disease 2019) (ED) Referrals: Cheng Cruz PA [Primary Care Provider] - 1 week
[2024-10-16 06:12] LABS: Internal Control Within Normal Limits; SARS-CoV-2 Ag POSITIVE (NEGATIVE)
[2024-10-16] MEDS: FAMOTIDINE/PF 20 MG/2 ML VIAL IV (06:41)
[2024-10-16] MEDS: ONDANSETRON PF 4 MG/2 ML VIAL IV (06:41)
[2024-10-16] MEDS: 0.9 % SODIUM CHLORIDE 1,000 ML 500 ML IV (06:41)
== END 2024-10-16 06:51 | disposition home or self-care (01) ==
PROVIDERS: Emergency Provider Emergency Medicine; PCP Physician Assistant
DX: U07.1 COVID-19 (principal); K52.9 Noninfective gastroenteritis and colitis, unspecified; F17.200 Nicotine dependence, unspecified, uncomplicated
CPT/HCPCS: 87811; 96374; 96375; 99284; J2405

== ENCOUNTER 2024-10-24 08:00 | Emergency (ER) | payer SELFPAY ==
[2024-10-24 08:13] VITALS: BP 118/77; PULSE 115; TEMP 38.3; O2SAT 97; BMI 28.3
--- NOTE | 2024-10-24 08:26 | XR_ITS ---
The [address] [address] Patient Name: XENIA ANDREWS MRN: [id number] date: 2000 Sex: F Assigned Patient Location: ER Current Patient Location: ER Accession/Order Number: [id number] Exam Date: 10/24/2024 08:59 Report Date: 10/24/2024 09:28 At the request of: NORAH BAH Procedure: XR chest 2V EXAMINATION: XR chest 2V HISTORY: chest pain COMPARISON: 06/16/2024 TECHNIQUE: PA and lateral FINDINGS: LUNGS: No significant pulmonary parenchymal abnormalities. VASCULATURE: No increased pulmonary vasculature. PLEURA: No pneumothorax, effusion, or pleural thickening. CARDIAC: No cardiomegaly or cardiac silhouette abnormality. MEDIASTINUM: No visible mass or adenopathy. BONES: No fracture or visible bone lesion. OTHER: Negative. XR/XR chest 2V IMPRESSION: No acute cardiopulmonary process Electronically authenticated by: GABBY CHARLES Date: 10/24/2024 09:28
--- OUTSIDE RECORDS SUMMARY | 2024-10-24 08:27 | XMS_ITS | CCD ---
Author Organization [facility] Care Team Providers Care Dynamic 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 Name Role Phone ARGUELLOARLINEJAGDISH CHILO Unavailable Unavailable Wandy Dorado Primary Care Physician [phone] None, No PCP Unavailable Unavailable Unavailable Unavailable DO Shauna Atkinson Primary Care Provider DO Martinez Kumar Emergency Provider Betty [facility] Payton Brooks Emergency Provider DO Joseph Wallace Emergency Provider DR GIOVANA [...] Care Provider MD Alton Boss Emergency Provider Cheng Cruz [...] (disorder) [facility] (1 source) Pollen Drug allergy Respiratory function (observable entity) [facility] (5 sources) Penicillins Cross Reactors; Translations: [Penicillins Cross [employer]] Allergy to drug (finding) [facility] Work Phone: (12 sources) Ketorolac; Translations: [ketorolac] Drug Allergy 04-29-20 hives, Anaphylaxis [facility] (11 sources) Penicillins; Translations: [Penicillins] Propensity to adverse reactions 01-22-20 Anaphylaxis [facility] (15 sources) traMADol; Translations: [tramadol] Drug Allergy 04-29-20 Anaphylaxis [facility] (1 source) Ketorolac Drug Allergy [facility] (3 sources) penicillAMINE Drug Allergy Unknown [facility] Other (1 source) penicillAMINE Drug Allergy 12-01-19 [facility] (6 sources) Adhesive agent; Translations: [ADHESIVE] Propensity to adverse reactions to drug 01-29-20 Other (See Comments) [facility] (6 sources) Pollen; Translations: [POLLEN EXTRACTS] Propensity to adverse reactions to drug 04-07-20 [facility] Medications Current Medications Medication Drug Class(es) [...] O Q4H 3 2 September 24, 2023 [id number] actuat albuterol 0.09 mg/actuat metered dose [...] oral tablet (1 source) alpha-Adrenergic Agonist, Uncompetitive V-bxqgvj-O-aspartate Receptor Antagonist, Sigma-1 Agonist Start: 12-01-2023 take [...] Marijuana Acti ve January 09, 2023 12:00am Botkins (No Known Home Meds) (1 source) Start: 10-13-2022 Botkins (No Kn own Home Meds) Active October [...] out, # 84 tab(s), Refills(s) 1, Pharmacy: [facility]45, 150, cm, 04/29/21 15:53:00 [...] Start: 04-10-2022 take 1 capsule by mo [facility] once daily Doxycycline Hyclate 100 MG Oral [...] [Animl-ridr injured by fall fr horse in [facility], init] Onset: 09-30-2018 Headache; including migraine (1 [...] 02-18-2022 Episodic Other aftercare (1 source) Other salvage determiner (current) drug therapy; Translations: [OTH BARBER CURRENT DRUG THERAPY] Onset: 02-24-2023 Episodic Other aftercare (1 source) Patient encounter status; Translations: [Other alf (current) drug therapy] 01-19-2024 Episodic Other bone [...] Parmar MD on 01/20/2024 11:58 PM Normal [facility] Cytologyon 01-13-2024 Cytology Normal [facility] Comment on above: Result Comment: [facility] [address] [place] [address] Gynecologic Cytology Consultation Patient Name:SOFIA ANDREWS:2000 (Age: 23)Gender:FTaken:4Reported:01/27/2024hysician(s):Tiburcio Crawford DO ([phone])Copy To: Rec. #:[id number]: #[id number] Final Cytologic Interpretation ThinPrep Pap Test (Cervical): Satisfactory for evaluation. A transformation zone component is present. NEGATIVE FOR INTRAEPITHELIAL LESION OR MALIGNANCY. jja/01/27/2024 Interpretation performed at [facility], [address] [place] [address], License number: [id number]. 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 [employer] Other COVID + FLU Quick Testing Negative [facility] [employer] Other Outside Recordson 10-01-2023 Outside Records [id number]#1.00OTGTI [facility] XR knee LT 4V*on 09-24-2023 XR knee LT 4V* [facility] [place] [address] XRay Report Signed Patient: Sofia Andrews MR#: [id number] : 2000 Acct:[id number] Age/Sex: 22 / F ADM Date: 09/24/23 Loc: ER Room: Type: [facility] ER Attending Dr: Copies to: Alton [...] Curiel Jr., D.OHawk09/24/2023 9:27 AM Dictation Location: [place] [address] Transcribed By: [facility] 09/24/23926 Dictated By: Pablo Curiel Jr DO 09/24/23926 Signed By: 09/24/23926 [facility] Outside Recordson 02-19-2023 Outside Records [id number]#1.00OTGT IFF [facility] Outside Records [id number]#1.00OTGT IFF [facility] Outside Records [id number]#1.00OTGT IFF [facility] Outside Recordson 01-12-2023 Outside Records [id number]#1.00OTGTI FF [facility] Activated partial thrombopla stin time (aPTT) in platelet poor plasma by coagulation aOrdered By: Joseph Wallace on 01-09-2023 aPTT Coag (PPP) [Time] 30.5 s 25.1-36.5 [facility] Alanine aminotransferase [En zymatic activity/volume] in Serum or PlasmaOrdered By: Joseph Wallace on 01-09-2023 ALT [Catalytic activity/Vol] 16 U/L 7-52 [facility] Albumin [Mass/volume] in Ser um or Plasma by Bromocresol green (BCG) dye binding methoOrdered By: Joseph Wallace on 01-09-2023 Albumin BCG dye [Mass/Vol] 4.4 g/dL 3.5-5.7 [facility] Alkaline phosphatase [Enzyma tic activity/volume] in Serum or PlasmaOrdered By: Joseph Wallace on 01-09-2023 ALP [Catalytic activity/Vol] 77 U/L 34-104 [facility] Amphetamine Screen Ql (U)Ord ered By: Joseph Wallace on 01-09-2023 Amphetamines Ql (U) Negative Negative [facility] Aspartate aminotransferase [ Enzymatic activity/volume] in Serum or PlasmaOrdered By: Joseph Wallace on 01-09-2023 AST [Catalytic activity/Vol] 16 U/L 13-39 [facility] Automated erythrocytes count in urine sediment (number/area)Ordered By: Joseph Wallace on 01-09-2023 RBC Auto (Urine sed) [#/Area] 10-19 [HPF] 0-4 [facility] Automated leukocytes count i n urine sediment (number/area)Ordered By: Joseph Wallace on 01-09-2023 WBC Auto (Urine sed) [#/Area] 0-1 [HPF] 0-4 [facility] Barbiturates [Presence] in U rine by Screen methodOrdered By: Joseph Wallace on 01-09-2023 Barbiturates Screen Ql (U) Negative Negative [facility] Basic Metabolic Panelon 12-31 Anion gap [Moles/Vol] 12.6 mmol/L Normal 6.0-15.0 [facility] Comment on above: Performed By: #### P T, HEPATIC, PTT, BMP, CBC, LIPASE #### [facility] [address] Calcium [Mass/Vol] 8.9 mg/dL Normal 8.6-10.3 [facility] Comment on above: Performed By: #### P T, HEPATIC, PTT, BMP, CBC, LIPASE #### [facility] [address] [place] [address] [place] Chloride [Moles/Vol] 107 mmol/L Normal 98-107 [facility] Comment on above: Performed By: #### P T, HEPATIC, PTT, BMP, CBC, LIPASE #### [facility] [address] [place] [address] [place] CO2 [Moles/Vol] 25.3 mmol/L Normal 21.0-31.0 [facility] Comment on above: Performed By: #### P T, HEPATIC, PTT, BMP, CBC, LIPASE #### [facility] [address] Creatinine [Mass/Vol] 0.57 mg/dL Low 0.60-1.20 [facility] Comment on above: Performed By: #### P T, HEPATIC, PTT, BMP, CBC, LIPASE #### [facility] [address] [place] [address] [place] Creatinine Clr Calc Pharmacy 141.51 Normal [facility] Comment on above: Performed By: #### P T, HEPATIC, PTT, BMP, CBC, LIPASE #### [facility] [address] [place] [address] [place] GFR/1.73 sq M.predicted MDRD (S/P/Bld) [Vol rate/Area] mL/min/{1.73_m2} Normal [facility] Comment on above: Performed By: #### P T, HEPATIC, PTT, BMP, CBC, LIPASE #### [address] Glucose [Mass/Vol] 85 mg/dL Normal 74-109 [facility] Comment on above: Result Comment: [facility] Glucose Reference Range is dependent on time and content of last meal. Glucose of more than 200 mg/dL in a nonstressed, ambulatory subject supports the diagnosis of Diabetes Mellitus. ADA recommended reference range Performed By: #### P T, HEPATIC, PTT, BMP, CBC, LIPASE #### [address] Potassium [Moles/Vol] 3.9 mmol/L Normal 3.5-5.1 [facility] Comment on above: Performed By: #### P T, HEPATIC, PTT, BMP, CBC, LIPASE #### [facility] [address] [place] [address] [place] Sodium [Moles/Vol] 141 mmol/L Normal 136-145 [facility] Comment on above: Performed By: #### P T, HEPATIC, PTT, BMP, CBC, LIPASE #### [address] Urea nitrogen [Mass/Vol] 12 mg/dL Normal 7-25 [facility] Comment on above: Performed By: #### P T, HEPATIC, PTT, BMP, CBC, LIPASE #### [facility] [address] Basophils Auto (Bld) [#/Vol] Ordered By: Joseph Wallace on 01-09-2023 Basophils (Bld) [#/Vol] 0.1 10*3/uL 0.0-0.2 [facility] Basophils/100 WBC Auto (Bld) Ordered By: Joseph Wallace on 01-09-2023 Basophils/100 WBC (Bld) 0.6 % . [facility] Benzodiazepines Screen Ql (U )Ordered By: Joseph Wallace on 01-09-2023 Benzodiazepines Ql (U) Positive Negative [facility] Benzoylecgonine [Presence] i n Urine by Screen methodOrdered By: Joseph Wallace on 01-09-2023 Benzoylecgonine Screen Ql (U) Positive Negative [facility] Bilirubin Test strip Ql (U)O rdered By: Joseph Wallace on 01-09-2023 Bilirubin Ql (U) Negative Negative [facility] Bilirubin.direct [Mass/volum e] in Serum or PlasmaOrdered By: Joseph Wallace on 01-09-2023 Bilirubin.direct [Mass/Vol] 0.10 mg/dL 0.03-0.18 [facility] Bilirubin.total [Mass/volume ] in Serum or PlasmaOrdered By: Joseph aWllace on 01-09-2023 Bilirubin [Mass/Vol] 0.5 mg/dL 0.3-1.0 [facility] CBC AUTO DIFFon 01-09-2023 BASO # 0.1 103/ul Normal 0.0-0.1 [facility] Comment on above: Performed By: #### C BC #### [facility] [address] [place] [address] [address] Cristopher Godoy Basophils/100 WBC (Bld) 0.6 % Normal 0.2-2.0 [facility] Comment on above: Performed By: #### C BC #### [facility] [address] [place], [place] [address] Dr. Cristopher Godoy EO # 0.4 103/ul Normal 0.0-0.7 [facility] Comment on above: Performed By: #### C BC #### [facility] [address] [place] [address] Dr. Cristopher Godoy Eosinophils/100 WBC (Bld) 2.7 % Normal 0.9-7.0 [facility] Comment on above: Performed By: #### C BC #### [facility] [address] [address] Dr. Cristopher Godoy Erythrocyte distribution width (RBC) [Ratio] 13.5 % Normal 11.0-15.0 [facility] Comment on above: Performed By: #### C BC #### [facility] [address] [place] [address] Dr. Cristopher Godoy Hematocrit (Bld) [Volume fraction] 42.2 % Normal 36.0-48.0 [facility] Comment on above: Performed By: #### C BC #### [facility] [address] [place] [address] Dr. Cristopher Godoy Hemoglobin (Bld) [Mass/Vol] 14.1 g/dL Normal 12.0-16.0 [facility] Comment on above: Performed By: #### C BC #### [facility] [address] [place] [address] Dr. Cristopher Godoy IG # 0.06 10e3/ul Critically high 0.00-0.03 [facility] Comment on above: Performed By: #### C BC #### [facility] [address] [place] [address] Dr. Cristopher Godoy IG % 0.4 % Normal 0.0-0.5 [facility] Comment on above: Performed By: #### C BC #### [facility] [address] [place] [address] Dr. Cristopher Godoy LYMPH # 3.8 103/ul Normal 1.2-3.8 [facility] Comment on above: Performed By: #### C BC #### [facility] [address] [place] [address] Dr. Cristopher Godoy Lymphocytes/100 WBC (Bld) 24.7 % Normal 20.5-60.0 [facility] Comment on above: Performed By: #### C BC #### [facility] [address] [place] [address] Dr. Cristopher Godoy MANUAL DIFF REQ NO Normal [facility] Comment on above: Performed By: #### C BC #### [facility] [address] [place] [address] Dr. Cristopher Godoy MCH (RBC) [Entitic mass] 30.5 pg Normal 26.7-34.0 [facility] Comment on above: Performed By: #### C BC #### [facility] [address] [place] [address] Dr. Cristopher Godoy MCHC (RBC) [Mass/Vol] 33.4 g/dL Normal 29.9-35.2 [facility] Comment on above: Performed By: #### C BC #### [facility] [address] [place] [address] Dr. Cristopher Godoy MCV (RBC) [Entitic vol] 91.3 fL Normal 81.0-99.0 [facility] Comment on above: Performed By: #### C BC #### [facility] [address] [place] [address] Dr. Cristopher Godoy MONO # 0.9 103/ul Critically high 0.3-0.8 [facility] Comment on above: Performed By: #### C BC #### [facility] [address] [place] [address] Dr. Cristopher Godoy Monocytes/100 WBC (Bld) 5.9 % Normal 1.7-12.0 [facility] Comment on above: Performed By: #### C BC #### [facility] [address] [place] [address] Dr. Cristopher Godoy NEUT # 10.0 103/ul Critically high 1.4-6.5 [facility] Comment on above: Performed By: #### C BC #### [facility] [address] [place] [address] Dr. Cristopher Godoy Neutrophils/100 WBC (Bld) 65.7 % Normal 43.0-75.0 [facility] Comment on above: Performed By: #### C BC #### [facility] [address] [place], [place] [address] Dr. Cristopher Godoy Platelet mean volume (Bld) [Entitic vol] 10.8 fL Normal 9.5-13.5 [facility] Comment on above: Performed By: #### C BC #### [facility] [address] [place] [address] Dr. Cristopher Godoy PLT 338 103/ul Normal 150-450 [facility] Comment on above: Performed By: #### C BC #### [facility] [address] [place] [address] [address] Cristopher Godoy RBC 4.62 106/ul Normal 4.20-5.40 [facility] Comment on above: Performed By: #### C BC #### [facility] [address] [place] [address] Dr. Cristopher Godoy WBC 15.3 103/ul Critically high 4.0-11.0 [facility] Comment on above: Performed By: #### C BC #### [facility] [address] [place] [address] ABD/PELV W CONon [...] by: SHERI ESCUDERO Date: 2023-01-09 04:41 Normal [facility] Calcium [Mass/volume] in Ser um or PlasmaOrdered By: Joseph Wallace on 01-09-2023 Calcium [Mass/Vol] 8.9 mg/dL 8.6-10.3 [facility] Cannabinoids [Presence] in U rine by Screen methodOrdered By: Joseph Wallace on 01-09-2023 Cannabinoids Screen Ql (U) Positive Negative [facility] Comment on above: These are unconfirme d results and should not be used for legal purposes. Drug Cut-Off Concentration: AMPH 1000 ng/mL ISAURO 200 ng/mL YULY 200 ng/mL COCM 300 ng/mL OP 300 ng/mL PCP 25 ng/mL THC 20 ng/mL Carbon dioxide, total [Moles /volume] in Serum or PlasmaOrdered By: Joseph Wallace on 01-09-2023 CO2 [Moles/Vol] 25.3 mmol/L 21.0-31.0 [facility] Chloride [Moles/volume] in S yudy or PlasmaOrdered By: Joseph Wallace on 01-09-2023 Chloride [Moles/Vol] 107 mmol/L 98-107 [facility] Color Auto (U)Ordered By: Janusz Wallace on 01-09-2023 Color (U) Yellow Yellow [facility] Complete Blood Count Auto Di ffon 01-09-2023 Basophils (Bld) [#/Vol] 0.1 10*3/uL Normal 0.0-0.2 [facility] Comment on above: Result Comment: PERF ORMED BY: [place] [address] PATHOLOGIST CENTRAL PROCESSING TECH LUCRECIA NG M.D. Performed By: #### P T, HEPATIC, PTT, BMP, CBC, LIPASE #### [address] Basophils/100 WBC (Bld) 0.6 % Normal . [facility] Comment on above: Performed By: #### P T, HEPATIC, PTT, BMP, CBC, LIPASE #### [address] Eosinophils (Bld) [#/Vol] 0.6 10*3/uL High 0.0-0.45 [facility] Comment on above: Performed By: #### P T, HEPATIC, PTT, BMP, CBC, LIPASE #### [address] Eosinophils/100 WBC (Bld) 5.4 % Normal . [facility] Comment on above: Performed By: #### P T, HEPATIC, PTT, BMP, CBC, LIPASE #### [address] Erythrocyte distribution width (RBC) [Ratio] 14.2 % Normal 11.9-15.3 [facility] Comment on above: Performed By: #### P T, HEPATIC, PTT, BMP, CBC, LIPASE #### [address] Hematocrit (Bld) [Volume fraction] 43.2 % Normal 34.0-46.4 [facility] Comment on above: Performed By: #### P T, HEPATIC, PTT, BMP, CBC, LIPASE #### [address] Hemoglobin (Bld) [Mass/Vol] 14.1 g/dL Normal 11.8-15.4 [facility] Comment on above: Performed By: #### P T, HEPATIC, PTT, BMP, CBC, LIPASE #### [address] Lymphocytes (Bld) [#/Vol] 3.3 10*3/uL Normal 1.00-4.8 [facility] Comment on above: Performed By: #### P T, HEPATIC, PTT, BMP, CBC, LIPASE #### [address] Lymphocytes/100 WBC (Bld) 28.7 % Normal . [facility] Comment on above: Performed By: #### P T, HEPATIC, PTT, BMP, CBC, LIPASE #### [address] MCH (RBC) [Entitic mass] 30.1 pg Normal 24.7-34.3 [facility] Comment on above: Performed By: #### P T, HEPATIC, PTT, BMP, CBC, LIPASE #### [address] MCV (RBC) [Entitic vol] 92.6 fL Normal 80-100 [facility] Comment on above: Performed By: #### P T, HEPATIC, PTT, BMP, CBC, LIPASE #### [address] Mean Corpuscular HGB Conc 32.6 g/dL Normal 32.0-35.0 [facility] Comment on above: Performed By: #### P T, HEPATIC, PTT, BMP, CBC, LIPASE #### [address] Monocytes (Bld) [#/Vol] 0.8 10*3/uL Normal 0.0-0.8 [facility] Comment on above: Performed By: #### P T, HEPATIC, PTT, BMP, CBC, LIPASE #### [address] Monocytes/100 WBC (Bld) 16.00 % Normal 0.00-20.00 [facility] Comment on above: Performed By: #### P T, HEPATIC, PTT, BMP, CBC, LIPASE #### [address] Monocytes/100 WBC (Bld) 6.8 % Normal . [facility] Comment on above: Performed By: #### P T, HEPATIC, PTT, BMP, CBC, LIPASE #### [address] Neutrophils (Bld) [#/Vol] 6.7 10*3/uL Normal 1.8-7.7 [facility] Comment on above: Performed By: #### P T, HEPATIC, PTT, BMP, CBC, LIPASE #### [address] Neutrophils/100 WBC (Bld) 58.5 % Normal . [facility] Comment on above: Performed By: #### P T, HEPATIC, PTT, BMP, CBC, LIPASE #### [address] NRBC% 0.1 /100{WBC} Normal 0-0.5 [facility] Comment on above: Performed By: #### P T, HEPATIC, PTT, BMP, CBC, LIPASE #### [address] Platelet mean volume (Bld) [Entitic vol] 9.8 fL Normal 6.3-10.7 [facility] Comment on above: Performed By: #### P T, HEPATIC, PTT, BMP, CBC, LIPASE #### [place] [address] [place] Platelets (Bld) [#/Vol] 314 10*3/uL Normal 150-450 [facility] Comment on above: Performed By: #### P T, HEPATIC, PTT, BMP, CBC, LIPASE #### [place] [address] [place] RBC (Bld) [#/Vol] 4.67 10*6/uL Normal 3.60-5.00 [facility] Comment on above: Performed By: #### P T, HEPATIC, PTT, BMP, CBC, LIPASE #### [facility] [address] [place] [address] [place] WBC (Bld) [#/Vol] 11.5 10*3/uL Normal 3.8-11.6 [facility] Comment on above: Performed By: #### P T, HEPATIC, PTT, BMP, CBC, LIPASE #### [facility] [address] Creatinine [Mass/volume] in Serum or PlasmaOrdered By: Joseph Wallace on 01-09-2023 Creatinine [Mass/Vol] 0.57 mg/dL 0.60-1.20 [facility] Dipstick and Microscopicon 0 01-09-2023 Appearance (U) Clear Normal Clear [facility] Comment on above: Order Comment: Name Collection Type:: Clean-Voided Midstream Performed By: #### U RDS, ADDONUAPLUS, UHCG #### [facility] [address] [place] [address] [place] Bacteria,Urine None Seen Normal None Seen [facility] Comment on above: Order Comment: Name Collection Type:: Clean-Voided Midstream Performed By: #### U RDS, ADDONUAPLUS, UHCG #### [facility] [address] [place] [address] [place] Bilirubin,Urine Negative Normal Negative [facility] Comment on above: Order Comment: Name Collection Type:: Clean-Voided Midstream Performed By: #### U RDS, ADDONUAPLUS, UHCG #### [facility] [address] [place] [address] [place] Color (U) Yellow Normal Yellow [facility] Comment on above: Order Comment: Name Collection Type:: Clean-Voided Midstream Performed By: #### U RDS, ADDONUAPLUS, UHCG #### [facility] [address] [place] [address] [place] Glucose Ql (U) Normal Normal Normal [facility] Comment on above: Order Comment: Name Collection Type:: Clean-Voided Midstream Performed By: #### U RDS, ADDONUAPLUS, UHCG #### [facility] [address] [place] [address] [place] Hyaline Casts,Urine None Seen Normal 0-8 [facility] Comment on above: Order Comment: Name Collection Type:: Clean-Voided Midstream Performed By: #### U RDS, ADDONUAPLUS, UHCG #### [facility] [address] [place] [address] Ketones Ql (U) Negative Normal Negative [facility] Comment on above: Order Comment: Name Collection Type:: Clean-Voided Midstream Performed By: #### U RDS, ADDONUAPLUS, UHCG #### [facility] [address] [place] [address] Leukocyte esterase Test strip Ql (U) Negative Normal Negative [facility] Comment on above: Order Comment: Name Collection Type:: Clean-Voided Midstream Performed By: #### U RDS, ADDONUAPLUS, UHCG #### [facility] [address] [place] [address] [place] Nitrite,Urine Negative Normal Negative [facility] Comment on above: Order Comment: Name Collection Type:: Clean-Voided Midstream Performed By: #### U RDS, ADDONUAPLUS, UHCG #### [facility] [address] [place] [address] [place] Occult Blood,Urine 1+ High Negative [facility] Comment on above: Order Comment: Name Collection Type:: Clean-Voided Midstream Performed By: #### U RDS, ADDONUAPLUS, UHCG #### [facility] [address] [place] [address] [place] pH (U) 5.5 [pH] Normal 5.0-9.0 [facility] Comment on above: Order Comment: Name Collection Type:: Clean-Voided Midstream Performed By: #### U RDS, ADDONUAPLUS, UHCG #### [facility] [address] [place] [address] [place] Protein,Urine Negative Normal Negative [facility] Comment on above: Order Comment: Name Collection Type:: Clean-Voided Midstream Performed By: #### U RDS, ADDONUAPLUS, UHCG #### [address] RBC,Urine 10-19 High 0-4 [facility] Comment on above: Order Comment: Name Collection Type:: Clean-Voided Midstream Performed By: #### U RDS, ADDONUAPLUS, UHCG #### [address] Specificy [place],Urine 1.027 Normal 1.001-1.03 0 [facility] Comment on above: Order Comment: Name Collection Type:: Clean-Voided Midstream Performed By: #### U RDS, ADDONUAPLUS, UHCG #### [address] Squamous Epithelial Cell,Urine 0-1 Normal 0-2 [facility] Comment on above: Order Comment: Name Collection Type:: Clean-Voided Midstream Performed By: #### U RDS, ADDONUAPLUS, UHCG #### [address] Urobilinogen,Urine Normal Normal Normal [facility] Comment on above: Order Comment: Name Collection Type:: Clean-Voided Midstream Performed By: #### U RDS, ADDONUAPLUS, UHCG #### [address] WBC LM.HPF (Urine sed) [#/Area] 0 /[HPF] Normal 0-4 [facility] Comment on above: Order Comment: Name Collection Type:: Clean-Voided Midstream Performed By: #### U RDS, ADDONUAPLUS, UHCG #### [place] [address] [place] Drug Screen,Urineon 01-10-20 23 Amphetamine Screen,Urine Negative Normal Negative [facility] Comment on above: Performed By: #### P T, HEPATIC, PTT, BMP, CBC, LIPASE #### [address] Barbiturate Screen,Urine Negative Normal Negative [facility] Comment on above: Performed By: #### P T, HEPATIC, PTT, BMP, CBC, LIPASE #### [address] Benzodiazepines Screen,Urine Positive High Negative [facility] Comment on above: Performed By: #### P T, HEPATIC, PTT, BMP, CBC, LIPASE #### [address] Cannabinoid Screen,Urine Positive High Negative [facility] Comment on above: Result Comment: Thes e are unconfirmed results and should not be used for legal purposes. Drug Cut-Off Concentration: AMPH 1000 ng/mL ISAURO 200 ng/mL YULY 200 ng/mL COCM 300 ng/mL OP 300 ng/mL PCP 25 ng/mL THC 20 ng/mL PERFORMED BY: [place] [address] PATHOLOGIST CENTRAL PROCESSING TECH LUCRECIA NG M.D. Performed By: #### P T, HEPATIC, PTT, BMP, CBC, LIPASE #### [address] Cocaine Screen,Urine Positive High Negative [facility] Comment on above: Performed By: #### P T, HEPATIC, PTT, BMP, CBC, LIPASE #### [address] Opiate Screen,Urine Positive High Negative [facility] Comment on above: Performed By: #### P T, HEPATIC, PTT, BMP, CBC, LIPASE #### [address] Phencyclidine Screen,Urine Negative Normal Negative [facility] Comment on above: Performed By: #### P T, HEPATIC, PTT, BMP, CBC, LIPASE #### [address] ER URINE PROFILEon 3 Bilirubin Ql (U) Negative Normal NEGATIVE [facility] Comment on above: Performed By: #### VEENA LOPEZ #### [facility] [address] [address] Dr. Cristopher Godoy Clarity (U) CLEAR Normal CLEAR [facility] Comment on above: Performed By: #### DEWAYNE LOPEZRO #### [facility] [address] [address] Dr. Cristopher Godoy Color (U) LT. YELLOW Normal YELLOW [facility] Comment on above: Performed By: #### DEWAYNE LOPEZRO #### [facility] [address] [address] Dr. Cristopher Godoy ERUAHD A micrscopic examina tion will be performed if indicated. Normal [facility] Comment on above: Performed By: #### DEWAYNE LOPEZRO #### [facility] [address] [address] Dr. Cristopher Godoy Glucose Ql (U) Negative Normal NEGATIVE [facility] Comment on above: Performed By: #### DEWAYNE LOPEZRO #### [facility] [address] [address] Dr. Cristopher Godoy Hemoglobin Ql (U) LARGE Abnormal NEGATIVE [facility] Comment on above: Performed By: #### DEWAYNE LOPEZRO #### [facility] [address] [address] Dr. Cristopher Godoy Ketones Ql (U) Negative Normal NEGATIVE [facility] Comment on above: Performed By: #### DEWAYNE LOPEZRO #### [facility] [address] [place] [address] Dr. Cristopher Godoy LEUKOCYTES Negative Normal NEGATIVE [facility] Comment on above: Performed By: #### FATOU LOPEZICRO #### [facility] [address] [address] Dr. Cristopher Godoy Nitrite Ql (U) Negative Normal NEGATIVE [facility] Comment on above: Performed By: #### FATOU LOPEZICRO #### [facility] [address] [address] Dr. Cristopher Godoy pH (U) 6.0 [pH] Normal 5-9 [facility] Comment on above: Performed By: #### E RUR, UMICRO #### [facility] [address] [address] [address] Cristopher Godoy SPEC GRAVITY 1.010 Normal 1.005-<=1. 025 [facility] Comment on above: Performed By: #### E RYNER, UMICRO #### [facility] [address] [address] [address] Cristopher Godoy UA PROTEIN Negative Normal NEGATIVE/ TRACE [facility] Comment on above: Performed By: #### E RYNER, UMICRO #### [facility] [address] [address] [address] Cristopher Godoy UR MICRO IND INDICATED Normal [facility] Comment on above: Performed By: #### E RYNER, UMICRO #### [facility] [address] [place] [address] Dr. Cristopher Godoy Urobilinogen Qn (U) 0.2 {Kevin'U}/dL Normal 0.2 - 1. 0 [facility] Comment on above: Performed By: #### Cecilia MICHELER, UMICRO #### [facility] [address] [place] [address] Dr. Cristopher Godoy Eosinophils Auto (Bld) [#/Vo l]Ordered By: Joseph Wallace on 01-09-2023 Eosinophils (Bld) [#/Vol] 0.6 10*3/uL 0.0-0.45 [facility] Eosinophils/100 WBC Auto (Bl d)Ordered By: Joseph Wallace on 01-09-2023 Eosinophils/100 WBC (Bld) 5.4 % . [facility] Erythrocyte distribution wid th Auto (RBC) [Ratio]Ordered By: Joseph Wallace on 01-09-2023 Erythrocyte distribution width (RBC) [Ratio] 14.2 % 11.9-15.3 [facility] Globulin Calc (S) [Mass/Vol] Ordered By: Joseph Wallace on 01-09-2023 Globulin (S) [Mass/Vol] 2.7 g/dL [facility] Glucose [Mass/volume] in Ser um or PlasmaOrdered By: Joseph Wallace on 01-09-2023 Glucose [Mass/Vol] 85 mg/dL 74-109 [facility] Comment on above: ADA recommended refe rence rangeRandom Glucose Reference Range is dependent on time and content of last meal. Glucose of more than 200 mg/dL in a nonstressed, ambulatory subject supports the diagnosis of Diabetes Mellitus. HCG ( test) IA.rapi d Ql (U)Ordered By: Joseph Wallace on 01-09-2023 HCG ( test) Ql (U) Negative [facility] HCG,Urineon 01-09-2023 Beta HCG ( test) Ql (U) Negative Normal [facility] Comment on above: Order Comment: Name Collection Type:: Clean-Voided Midstream Result Comment: PERF ORMED BY: [place] [address] PATHOLOGIST CENTRAL PROCESSING TECH LUCRECIA NG M.D. Performed By: #### U P[facility], [facility] [place] [place] #### [address] Hematocrit Auto (Bld) [Volum e fraction]Ordered By: Joseph Wallace on 01-09-2023 Hematocrit (Bld) [Volume fraction] 43.2 % 34.0-46.4 [facility] Hemoglobin [Mass/volume] in BloodOrdered By: Joseph Wallace on 01-09-2023 Hemoglobin (Bld) [Mass/Vol] 14.1 g/dL 11.8-15.4 [facility] Hepatic Panelon 01-09-2023 Albumin [Mass/Vol] 4.4 g/dL Normal 3.5-5.7 [facility] Comment on above: Performed By: #### P T, HEPATIC, PTT, BMP, CBC, LIPASE #### [facility] [address] Albumin/Globulin [Mass ratio] 1.6 {ratio} Normal [facility] Comment on above: Performed By: #### P T, HEPATIC, PTT, BMP, CBC, LIPASE #### [facility] [address] ALP [Catalytic activity/Vol] 77 U/L Normal 34-104 [facility] Comment on above: Performed By: #### P T, HEPATIC, PTT, BMP, CBC, LIPASE #### [address] ALT [Catalytic activity/Vol] 16 U/L Normal 7-52 [facility] Comment on above: Performed By: #### P T, HEPATIC, PTT, BMP, CBC, LIPASE #### [address] AST [Catalytic activity/Vol] 16 U/L Normal 13-39 [facility] Comment on above: Performed By: #### P T, HEPATIC, PTT, BMP, CBC, LIPASE #### [address] Bilirubin [Mass/Vol] 0.5 mg/dL Normal 0.3-1.0 [facility] Comment on above: Performed By: #### P T, HEPATIC, PTT, BMP, CBC, LIPASE #### [address] Bilirubin,Indirect 0.4 mg/dL Normal [facility] Comment on above: Performed By: #### P T, HEPATIC, PTT, BMP, CBC, LIPASE #### [address] Bilirubin.indirect [Mass/Vol] 0.10 mg/dL Normal 0.03-0.18 [facility] Comment on above: Performed By: #### P T, HEPATIC, PTT, BMP, CBC, LIPASE #### [address] Globulin (S) [Mass/Vol] 2.7 g/dL Normal [facility] Comment on above: Performed By: #### P T, HEPATIC, PTT, BMP, CBC, LIPASE #### [address] Protein [Mass/Vol] 7.1 g/dL Normal 6.4-8.9 [facility] Comment on above: Performed By: #### P T, HEPATIC, PTT, BMP, CBC, LIPASE #### [address] [place] [address] [facility] Ketones Auto test strip (U) [Mass/Vol]Ordered By: Joseph Wallace on 01-09-2023 Ketones (U) [Mass/Vol] Negative Negative [facility] - Chemistry and C hemistry - challengeOrdered By: Joseph Wallace on 01-09-2023 GFR/1.73 sq M.predicted MDRD (S/P/Bld) [Vol rate/Area] mL/min/{1.73_m2} [facility] - CoagulationOrde red By: Joseph Wallace on 01-09-2023 PT Coag (PPP) [Time] 10.4 s 9.0-12.9 [facility] - UrinalysisOrder ed By: Joseph Wallace on 01-09-2023 Hyaline casts LM Ql (Urine sed) None seen [LPF] 0-8 [facility] Leukocytes [#/volume] correc ifrah for nucleated erythrocytes in Blood by Automated counOrdered By: Joseph Wallace on 01-09-2023 WBC corrected for nucl RBC Auto (Bld) [#/Vol] 11.5 10*3/uL 3.8-11.6 [facility] Lipaseon 01-09-2023 Lipase [Catalytic activity/Vol] 12.0 U/L Normal 11.0-82.0 [facility] Comment on above: Result Comment: PERF ORMED BY: [place] [address] PATHOLOGIST CENTRAL PROCESSING TECH LUCRECIA NG M.D. Performed By: #### P T, HEPATIC, PTT, BMP, CBC, LIPASE #### [facility] [address] Lipase [Enzymatic activity/v olume] in Serum or PlasmaOrdered By: Joseph Wallace on 01-09-2023 Lipase [Catalytic activity/Vol] 12.0 U/L 11.0-82.0 [facility] Lymphocytes Auto (Bld) [#/Vo l]Ordered By: Joseph Wallace on 01-09-2023 Lymphocytes (Bld) [#/Vol] 3.3 10*3/uL 1.00-4.8 [facility] Lymphocytes/100 WBC Auto (Bl d)Ordered By: Joseph Wallace on 01-09-2023 Lymphocytes/100 WBC (Bld) 28.7 % . [facility] MCH Auto (RBC) [Entitic mass ]Ordered By: Joseph Wallace on 01-09-2023 MCH (RBC) [Entitic mass] 30.1 pg 24.7-34.3 [facility] MCHC Auto (RBC) [Mass/Vol]Or dered By: Joseph Wallcae on 01-09-2023 MCHC (RBC) [Mass/Vol] 32.6 g/dL 32.0-35.0 [facility] MCV Auto (RBC) [Entitic vol] Ordered By: Joseph Wallace on 01-09-2023 MCV (RBC) [Entitic vol] 92.6 fL 80-100 [facility] Monocyte distribution width [Entitic volume] in Blood by AutomatedOrdered By: Joseph Wallace on 01-09-2023 Monocyte distribution width Auto (Bld) [Entitic vol] 16.00 % 0.00-20.00 [facility] Monocytes Auto (Bld) [#/Vol] Ordered By: Joseph Wallace on 01-09-2023 Monocytes (Bld) [#/Vol] 0.8 10*3/uL 0.0-0.8 [facility] Monocytes/100 WBC Auto (Bld) Ordered By: Joseph Wallace on 01-09-2023 Monocytes/100 WBC (Bld) 6.8 % . [facility] Neutrophils Auto (Bld) [#/Vo l]Ordered By: Joseph Wallace on 01-09-2023 Neutrophils (Bld) [#/Vol] 6.7 10*3/uL 1.8-7.7 [facility] Neutrophils/100 WBC Auto (Bl d)Ordered By: Joseph Wallace on 01-09-2023 Neutrophils/100 WBC (Bld) 58.5 % . [facility] Nitrite Test strip Ql (U)Ord ered By: Joseph Wallace on 01-09-2023 Nitrite Ql (U) Negative Negative [facility] No Panel InformationOrdered By: Joseph Wallace on 01-09-2023 Pharmacy Creatinine Clearance (Chem 141.51 [facility] Nucleated erythrocytes [Pres ence] in Blood by Automated countOrdered By: Joseph Wallace on 01-09-2023 Nucleated RBC Auto Ql (Bld) 0.1 /100{WBC} 0-0.5 [facility] Opiates [Presence] in Urine by Screen methodOrdered By: Joseph Wallace on 01-09-2023 Opiates Screen Ql (U) Positive Negative [facility] PREG HCG QUALon 01-09-2023 , QUAL Negative Normal NEGATIVE [facility] Comment on above: Performed By: #### P REG #### [facility] [address] [address] [address] Cristopher Godoy PROF CHEM 8 (BAS METB)on Anion gap [Moles/Vol] 10.6 mmol/L Normal [facility] Comment on above: Performed By: #### B MP #### [facility] [address] [address] [address] Cristopher Godoy Calcium [Mass/Vol] 8.7 mg/dL Normal 8.5-10.1 [facility] Comment on above: Performed By: #### B MP #### [facility] [address] [address] [address] Cristopher Godoy Chloride [Moles/Vol] 103 mmol/L Normal 98-107 [facility] Comment on above: Performed By: #### B MP #### [facility] [address] [address] [address] Cristopher Godoy CO2 [Moles/Vol] 28.0 mmol/L Normal 21.0-32.0 [facility] Comment on above: Performed By: #### B MP #### [facility] [address] [address] [address] Cristopher Godoy Creatinine [Mass/Vol] 0.62 mg/dL Normal 0.55-1.02 [facility] Comment on above: Performed By: #### B MP #### [facility] [address] [address] [address] Cristopher Godoy EGFR-AF BURUNDIAN >60 Normal >=60 [facility] Comment on above: Performed By: #### B MP #### [facility] [address] [place], [place] [address] Dr. Cristopher Godoy EGFR-NON AF BURUNDIAN >60 Normal >=60 [facility] Comment on above: Performed By: #### B MP #### [facility] [address] [address] [address] Cristopher Godoy Glucose [Mass/Vol] 128 mg/dL Critically high 74-106 [facility] Comment on above: Performed By: #### B MP #### [facility] [address] [address] [address] Cristopher Godoy Potassium [Moles/Vol] 3.6 mmol/L Normal 3.5-5.1 [facility] Comment on above: Performed By: #### B MP #### [facility] [address] [address] [address] Cristopher Godoy Sodium [Moles/Vol] 138 mmol/L Normal 136-145 [facility] Comment on above: Performed By: #### B MP #### [facility] [address] [address] [address] Cristopher Godoy Urea nitrogen [Mass/Vol] 13.0 mg/dL Normal 7.0-18.0 [facility] Comment on above: Performed By: #### B MP #### [facility] [address] [address] [address] Cristopher Godoy Urea nitrogen/Creatinine [Mass ratio] 21.0 mg/mg Normal [facility] Comment on above: Performed By: #### B MP #### [facility] [address] [address] [address] Cristopher Godoy Partial Thromboplastin Timeo n 01-09-2023 aPTT Coag (Bld) [Time] 30.5 s Normal 25.1-36.5 [facility] Comment on above: Result Comment: PERF ORMED BY: [facility] [address] [place] [address] PATHOLOGIST CENTRAL PROCESSING TECH LUCRECIA NG M.D. Performed By: #### P T, HEPATIC, PTT, BMP, CBC, LIPASE #### [facility] [address] [id number] [facility] Phencyclidine Screen Ql (U)O rdered By: Jospeh Wallace on 01-09-2023 Phencyclidine Ql (U) Negative Negative [facility] Platelet mean volume Auto (B ld) [Entitic vol]Ordered By: Josehp Wallace on 01-09-2023 Platelet mean volume (Bld) [Entitic vol] 9.8 fL 6.3-10.7 [facility] Platelet poor plasma interna tional normalized ratio (INR) by coagulation assay (relatOrdered By: Joseph Wallace on 01-09-2023 INR Coag (PPP) [Relative time] 0.9 {INR} [facility] Comment on above: INR Therapeutic Rang [...] 01-09-2023 Platelets (Bld) [#/Vol] 314 10*3/uL 150-450 [facility] Potassium [Moles/volume] in Serum or PlasmaOrdered By: Joseph Wallace on 01-09-2023 Potassium [Moles/Vol] 3.9 mmol/L 3.5-5.1 [facility] Protein Auto test strip (U) [Mass/Vol]Ordered By: Joseph Wallace on 01-09-2023 Protein (U) [Mass/Vol] Negative Negative [facility] Protein [Mass/volume] in Ser um or PlasmaOrdered By: Joseph Wallace on 01-09-2023 Protein [Mass/Vol] 7.1 g/dL 6.4-8.9 [facility] Prothrombin Time INRon 01-09 INR Coag (PPP) [Relative time] 0.9 {INR} Normal [facility] Comment on above: Result Comment: INR [...] T, HEPATIC, PTT, BMP, CBC, LIPASE #### [facility] [address] PT Coag (PPP) [Time] 10.4 s Normal 9.0-12.9 [facility] Comment on above: Performed By: #### P T, HEPATIC, PTT, BMP, CBC, LIPASE #### [facility] [address] RBC Auto (Bld) [#/Vol]Ordere d By: Joseph Wallace on 01-09-2023 RBC (Bld) [#/Vol] 4.67 10*6/uL 3.60-5.00 [facility] Serum or plasma albumin/glob ulin mass ratioOrdered By: Joseph Wallace on 01-09-2023 Albumin/Globulin [Mass ratio] 1.6 {ratio} [facility] Serum or plasma anion gap de terminationOrdered By: Joseph Wallace on 01-09-2023 Anion gap [Moles/Vol] 12.6 mmol/L 6.0-15.0 [facility] Serum or plasma non-glucuron idated bilirubin measurement (mass/volume)Ordered By: oJseph Wallace on 01-09-2023 Bilirubin.indirect [Mass/Vol] 0.4 mg/dL [facility] Sodium [Moles/volume] in Ser um or PlasmaOrdered By: Joseph Wallace on 01-09-2023 Sodium [Moles/Vol] 141 mmol/L 136-145 [facility] Specific gravity Auto test s trip (U) [Rel density]Ordered By: Joseph Wallace on 01-09-2023 Specific gravity (U) [Rel density] 1.027 1.001-1.03 0 [facility] Squamous epithelial cells de tection in urine sediment by light microscopyOrdered By: Joseph Wallace on 01-09-2023 Epithelial cells.squamous LM Ql (Urine sed) 0-1 [HPF] 0-2 [facility] URINE MICROSCOPIC ONLYon BACTERIA NONE SEEN Normal NONE SEEN [facility] Comment on above: Performed By: #### FATOU LOPEZICRO #### [facility] [address] [address] Dr. Cristopher Godoy Bacteria identified Cx Nom (U) NOT INDICATED Normal [facility] Comment on above: Performed By: #### Cecilia BAUMAN UMICRO #### [facility] [address] [place] [address] Dr. Cristopher Godoy CAST NONE SEEN Normal NONE SEEN [facility] Comment on above: Performed By: #### Cecilia BAUMAN UMICRO #### [facility] [address] [place] [address] Dr. Cristopher Godoy Crystals LM Nom (Urine sed) NONE SEEN Normal NONE SEEN [facility] Comment on above: Performed By: #### Cecilia BAUMAN UMICRO #### [facility] [address] [place] [address] Dr. Cristopher Godoy Epithelial cells LM Ql (Urine sed) FEW Abnormal NONE SEEN /RARE [facility] Comment on above: Performed By: #### Cecilia BAUMAN UMICRO #### [facility] [address] [place] [address] Dr. Cristopher Godoy MUCOUS NONE SEEN Normal NONE SEEN [facility] Comment on above: Performed By: #### FATOU LOPEZICRO #### [facility] [address] [place] [address] Dr. Cristopher Godoy RBC 5-10 Abnormal 0-2 [facility] Comment on above: Performed By: #### Cecilia BAUMAN UMICRO #### [facility] [address] [address] Dr. Cristopher Godoy WBC 0-2 Abnormal NONE SEEN [facility] Comment on above: Performed By: #### Cecilia BAUMAN UMICRO #### [facility] [address] [place] [address] Dr. Cristopher Godoy [facility] [place] [address] [place] [address] Ultrasound Report Signed Patient: Sofia Andrews MR#: [id number] : 2000 Acct:[id number] Age/Sex: 22 / F ADM Date: 01/09/23 Loc: ER Room: Type: [facility] ER Attending Dr: Ordering Provider: Joseph Wallace DO Date of Service: 01/09/23 US/US pelvic complete: ABDOMINAL PAIN ([id number]) US/US transvaginal: PAIN Copies to: Joseph Wallace [...] Chelsea Ceja M.D.01/09/2023 2:27 PM Dictation Location: [place] [address] Tech: Marian Mendoza Transcribed By: CHAZ 01/09/23 1427 Dictated By: Chelsea Ceja MD 01/09/23 1344 Signed By: 01/09/23 1427 Normal [facility] Urea nitrogen [Mass/volume] in Serum or PlasmaOrdered By: Joseph Wallace on 01-09-2023 Urea nitrogen [Mass/Vol] 12 mg/dL 7 [facility] Urine bacteria detection by automated methodOrdered By: Joseph Wallace on 01-09-2023 Bacteria Auto Ql (U) None seen None Seen [facility] Urine clarity by refractomet ry automatedOrdered By: Joseph Wallace on 01-09-2023 Clarity Refractometry automated (U) Clear Clear [facility] Urine glucose measurement by automated test strip (mass/volume)Ordered By: Joseph Wallace on 01-09-2023 Glucose Auto test strip (U) [Mass/Vol] Normal mg/dL Normal [facility] Urine hemoglobin detection b y automated test stripOrdered By: Joseph Wallace on 01-09-2023 Hemoglobin Auto test strip Ql (U) 1+ Negative [facility] Urine leukocyte esterase det ection by automated test stripOrdered By: Joseph Wallace on 01-09-2023 Leukocyte esterase Auto test strip Ql (U) Negative Negative [facility] Urobilinogen Auto test strip (U) [Mass/Vol]Ordered By: Joseph Wallace on 01-09-2023 Urobilinogen (U) [Mass/Vol] Normal mg/dL Normal [facility] WBC Auto (Bld) [#/Vol]Ordere d By: Joseph Wallace on 01-09-2023 WBC (Bld) [#/Vol] 11.5 10*3/uL 3.8-11.6 [facility] pH Auto test strip (U)Ordere d By: Joseph Wallace on 01-09-2023 pH (U) 5.5 [pH] 5.0-9.0 [facility] CBC AUTO DIFFon 01-05-2023 BASO # 0.1 103/ul Normal 0.0-0.1 [facility] Comment on above: Performed By: #### C BC #### [facility] [address] [address] [address] Cristopher Godoy Basophils/100 WBC (Bld) 0.6 % Normal 0.2-2.0 [facility] Comment on above: Performed By: #### C BC #### [facility] [address] [address] [address] Cristopher Godoy EO # 0.6 103/ul Normal 0.0-0.7 [facility] Comment on above: Performed By: #### C BC #### [facility] [address] [address] Dr. Cristopher Godoy Eosinophils/100 WBC (Bld) 5.7 % Normal 0.9-7.0 [facility] Comment on above: Performed By: #### C BC #### [facility] [address] [address] Dr. Cristopher Godoy Erythrocyte distribution width (RBC) [Ratio] 13.6 % Normal 11.0-15.0 [facility] Comment on above: Performed By: #### C BC #### [facility] [address] [address] Dr. Cristopher Godoy Hematocrit (Bld) [Volume fraction] 46.7 % Normal 36.0-48.0 [facility] Comment on above: Performed By: #### C BC #### [facility] [address] [address] Dr. Cristopher Godoy Hemoglobin (Bld) [Mass/Vol] 15.2 g/dL Normal 12.0-16.0 [facility] Comment on above: Performed By: #### C BC #### [facility] [address] [address] Dr. Cristopher Godoy IG # 0.03 10e3/ul Normal 0.00-0.03 [facility] Comment on above: Performed By: #### C BC #### [facility] [address] [address] Dr. Cristopher Godoy IG % 0.3 % Normal 0.0-0.5 [facility] Comment on above: Performed By: #### C BC #### [facility] [address] [address] Dr. Cristopher Godoy LYMPH # 3.3 103/ul Normal 1.2-3.8 [facility] Comment on above: Performed By: #### C BC #### [facility] [address] [address] Dr. Cristopher Godoy Lymphocytes/100 WBC (Bld) 29.2 % Normal 20.5-60.0 [facility] Comment on above: Performed By: #### C BC #### [facility] [address] [address] Dr. Cristopher Godoy MANUAL DIFF REQ NO Normal [facility] Comment on above: Performed By: #### C BC #### [facility] [address] [place] [address] Dr. Cristopher Godoy MCH (RBC) [Entitic mass] 29.9 pg Normal 26.7-34.0 [facility] [place] Comment on above: Performed By: #### C BC #### [facility] [address] [place] [address] Dr. Cristopher Godoy MCHC (RBC) [Mass/Vol] 32.5 g/dL Normal 29.9-35.2 [facility] Comment on above: Performed By: #### C BC #### [facility] [address] [place] [address] Dr. Cristopher Godoy MCV (RBC) [Entitic vol] 91.9 fL Normal 81.0-99.0 [facility] Comment on above: Performed By: #### C BC #### [facility] [address] [address] Dr. Cristopher Godoy MONO # 0.7 103/ul Normal 0.3-0.8 [facility] Comment on above: Performed By: #### C BC #### [facility] [address] [address] Dr. Cristopher Godoy Monocytes/100 WBC (Bld) 6.3 % Normal 1.7-12.0 [facility] Comment on above: Performed By: #### C BC #### [facility] [address] [address] Dr. Cristopher Godoy NEUT # 6.5 103/ul Normal 1.4-6.5 [facility] Comment on above: Performed By: #### C BC #### [facility] [address] [address] Dr. Cristopher Godoy Neutrophils/100 WBC (Bld) 57.9 % Normal 43.0-75.0 [facility] Comment on above: Performed By: #### C BC #### [facility] [address] [place] [address] Dr. Cristopher Godoy Platelet mean volume (Bld) [Entitic vol] 11.1 fL Normal 9.5-13.5 [facility] Comment on above: Performed By: #### C BC #### [facility] [address] [place] [address] Dr. Cristopher Godoy PLT 360 103/ul Normal 150-450 [facility] Comment on above: Performed By: #### C BC #### [facility] [address] [place] [address] Dr. Cristopher Godoy RBC 5.08 106/ul Normal 4.20-5.40 [facility] Comment on above: Performed By: #### C BC #### [facility] [address] [place] [address] Dr. Cristopher Godoy WBC 11.2 103/ul Critically high 4.0-11.0 [facility] Comment on above: Performed By: #### C BC #### [facility] [address] [place], [place] [address] Dr. Cristopher Godoy ER URINE PROFILEon 3 Bilirubin Ql (U) Negative Normal NEGATIVE [facility] Comment on above: Performed By: #### U MICRO, ERUR ####[facility] [address] [place] [address]Dr. Cristopher Godoy Clarity (U) CLEAR Normal CLEAR [facility] Comment on above: Performed By: #### U MICRO, ERUR ####[facility] [address] [place] [address]Dr. Cristopher Godoy Color (U) LT. YELLOW Normal YELLOW [facility] Comment on above: Performed By: #### U MICRO, ERUR ####[facility] [address] [place] [address]Dr. Cristopher Godoy ERUAHD A micrscopic examina tion will be performed if indicated. Normal [facility] Comment on above: Performed By: #### U MICRO, ERUR ####[facility] [address] [place], [place] [address]Dr. Cristopher Godoy Glucose Ql (U) Negative Normal NEGATIVE [facility] Comment on above: Performed By: #### U MICRO, ERUR ####[facility] [address] [place], [place] [address]Dr. Cristopher Godoy Hemoglobin Ql (U) SMALL Abnormal NEGATIVE [facility] Comment on above: Performed By: #### U MICRO, ERUR ####[facility] [address] [place], [place] [address]Dr. Cristopher Godoy Ketones Ql (U) Negative Normal NEGATIVE [facility] Comment on above: Performed By: #### U MICRO, ERUR ####[facility] [address] [place], [place] [address]Dr. Cristopher Godoy LEUKOCYTES Negative Normal NEGATIVE [facility] Comment on above: Performed By: #### U MICRO, ERUR ####[facility] [address] [place], [place] [address]Dr. Cristopher Godoy Nitrite Ql (U) Negative Normal NEGATIVE [facility] Comment on above: Performed By: #### U MICRO, ERUR ####[facility] [address] [place], [place] [address]Dr. Cristopher Godoy pH (U) 6.0 [pH] Normal 5-9 [facility] Comment on above: Performed By: #### U MICRO, ERUR ####[facility] [address] [place] [address]Dr. Cristopher Godoy SPEC GRAVITY <=1.005 Abnormal 1.005-<=1. 025 [facility] Comment on above: Performed By: #### U MICRO, ERUR ####[facility] [address] [place] [address]Dr. Cristopher Godoy UA PROTEIN Negative Normal NEGATIVE/ TRACE [facility] Comment on above: Performed By: #### U MICRO, ERUR ####[facility] [address] [place] [address]Dr. Cristopher Godoy UR MICRO IND INDICATED Normal [facility] Comment on above: Performed By: #### U MICRO, ERUR ####[facility] [address] [place], [place] [address]Dr. Cristopher Godoy Urobilinogen Qn (U) 0.2 {Kevin'U}/dL Normal 0.2 - 1. 0 [facility] Comment on above: Performed By: #### U MICRO, ERUR ####[facility] [address] [place], [place] [address]Dr. Cristopher Godoy PREG HCG QUALon 01-05-2023 , QUAL Negative Normal NEGATIVE [facility] Comment on above: Performed By: #### P REG #### [facility] [address] [place] [address] [address] Cristopher Godoy PROF CHEM 8 (BAS METB)on Anion gap [Moles/Vol] 15.3 mmol/L Normal [facility] Comment on above: Performed By: #### B MP ####[facility] [address] [place] [address]Dr. Cristopher Godoy Calcium [Mass/Vol] 9.8 mg/dL Normal 8.5-10.1 [facility] Comment on above: Performed By: #### B MP ####[facility] [address] [place], [place] [address]Dr. Cristopher Godoy Chloride [Moles/Vol] 106 mmol/L Normal 98-107 [facility] Comment on above: Performed By: #### B MP ####[facility] [address] [place] [address]Dr. Cristopher Godoy CO2 [Moles/Vol] 25.2 mmol/L Normal 21.0-32.0 [facility] Comment on above: Performed By: #### B MP ####[facility] [address] [place] [address]Dr. Cristopher Godoy Creatinine [Mass/Vol] 0.58 mg/dL Normal 0.55-1.02 [facility] Comment on above: Performed By: #### B MP ####[facility] [address] [place] [address]Dr. Cristopher Godoy EGFR-AF BURUNDIAN >60 Normal >=60 [facility] Comment on above: Performed By: #### B MP ####[facility] [address] [place], [place] [address]Dr. Dayanaraisa Walt EGFR-NON AF BURUNDIAN >60 Normal >=60 [facility] Comment on above: Performed By: #### B MP ####[facility] X[address] [place], [place] [address]Dr. Cristopher Walt Glucose [Mass/Vol] 89 mg/dL Normal 74-106 [facility] Comment on above: Performed By: #### B MP ####[facility] Hetf[address]ts[address] [place], [place] [address]Dr. Cristopher Walt Potassium [Moles/Vol] 4.5 mmol/L Normal 3.5-5.1 [facility] Comment on above: Performed By: #### B MP ####[facility] [address] [place], [place] [address]Dr. Cristopher Godoy Sodium [Moles/Vol] 142 mmol/L Normal 136-145 [facility] Comment on above: Performed By: #### B MP ####[facility] [address] [place], [place] [address]Dr. Cristopher Godoy Urea nitrogen [Mass/Vol] 12.0 mg/dL Normal 7.0-18.0 [facility] Comment on above: Performed By: #### B MP ####[facility] Ts[address] [place], [place] [address]Dr. Yilan Godoy Urea nitrogen/Creatinine [Mass ratio] 20.7 mg/mg Normal [facility] Comment on above: Performed By: #### B MP ####[facility] [address] [place], [place] [address]Dr. Cristopher Godoy URINE MICROSCOPIC ONLYon BACTERIA NONE SEEN Normal NONE SEEN [facility] Comment on above: Performed By: #### U MICRO, ERUR ####[facility] U[address]corz[address] [place], [place] [address]Dr. Cristopher Godoy Bacteria identified Cx Nom (U) NOT INDICATED Normal [facility] Comment on above: Performed By: #### U MICRO, ERUR ####[facility] [address] [place], [place] [address]Dr. Cristopher Godoy CAST NONE SEEN Normal NONE SEEN [facility] Comment on above: Performed By: #### U MICRO, ERUR ####[facility] [address] [place], [place] [address]Dr. Cristopher Godoy Crystals LM Nom (Urine sed) NONE SEEN Normal NONE SEEN [facility] Comment on above: Performed By: #### U MICRO, ERUR ####[facility] E[address]gs[address] [place], [place] [address]Dr. Cristopher Godoy Epithelial cells LM Ql (Urine sed) MODERATE Abnormal NONE SEEN /RARE [facility] Comment on above: Performed By: #### U MICRO, ERUR ####[facility] [address] [place], [place] [address]Dr. Cristopher Godoy MUCOUS TRACE Abnormal NONE SEEN [facility] Comment on above: Performed By: #### U MICRO, ERUR ####[facility] [address] [place], [place] [address]Dr. Cristopher Godoy RBC 2-5 Abnormal 0-2 [facility] Comment on above: Performed By: #### U MICRO, ERUR ####[facility] [address] [place] [address]Dr. Cristopher Godoy WBC NONE SEEN Normal NONE SEEN [facility] Comment on above: Performed By: #### U MICRO, ERUR ####[facility] [address] [place], [place] [address]FvHawk Godoy US PELVIS TRANSVAGon 023 US PELVIS [...] by: GABBY CHARLES Date: 2023-01-05 10:03 Normal [facility] Post Op (Breast Surgery)on 0 05-08-2022 Post Op (Breast Surgery) No report was sent Normal [facility] CORONAVIRUS 2019, SCREEN ASY MPTOMATICon 04-25-2022 SARS-CoV-2 (COVID-19) RNA HUMBERTO+probe Ql (Unsp spec) Not detected Normal Not Detected [facility] Comment on above: Result Comment: . [...] patient management decisions. Fact sheet for providers: https://www.fda.gov/media/901583/download Fact sheet for patients: https://www.fda.gov/media/857882/download This test has received FDA Emergency Use Authorization (EUA) and has been verified by [facility] ([facility]). This test is only authorized for the duration of time that circumstances exist to justify the authorization of the emergency use of in vitro diagnostic tests for the detection of SARS-CoV-2 virus and/or diagnosis of COVID-19 infection under section 564(b)(1) of the Act, 21 U.S.C. 360bbb-3(b)(1), unless the authorization is terminated or revoked sooner. [facility] is certified under CLIA-88 as qualified to perform high complexity testing. Testing is performed in the [facility] laboratories located at [address] [place] [address]. Performed By: #### C OVSC #### [address] [place] [address] Covid 19 Resultson 2 SARS-CoV-2 (COVID-19) RNA [...] You may also be contacted by the [facility] to see if any of [...] or Naproxen (Aleve) can also be used. Bnvj-qfi-qikholh cough and cold medicines can be used according to the instructions on the package. Some nvqa-jah-mswveoe medicines also contain acetaminophen. Make sure you [...] water are not available, use alcohol-based hand regional account executive. Avoid touching your eyes, nose, and mouth [...] 24 shaquille (more content not included)... Normal [facility] No Panel Informationon 04-25 [facility] Work Phone: [facility]ative Reports - [facility] Oper[facility] Reports - [facility] PREOPERATIVE DIAGNOSIS: Chronically infected sebaceous cyst, right chest. POSTOPERATIVE DIAGNOSIS: Chronically infected sebaceous cyst, right chest. OPERATION/PROCEDURE: Excision of sebaceous cyst, right chest, 5 x 2 cm area. SURGEON: Juan Taylor MD. STATE EDITOR(S): Geraldine, PGY-1. ANESTHESIA: General and 0.5% Marcaine. [...] Juan Taylor MD EST EST DICTATION NUMBER: [id number] INTERNAL JOB NUMBER: [id number] CC: UNKNOWN UNKNOWN Juan Taylor MD Electronic Signatures: Juan Taylor) (Signed on 05-May-2022 13:45) Authored Unsigned, Draft (SYS GENERATED) (Entered on 25-Apr-2022 13:48) Entered Last Updated: 05-May-2022 13:45 by Juan Taylor) [facility] Order Reconciliationon 04-25 Order Reconciliation Page [...] be shared with your follow-up providers (doctor, associate store leader, physical therapist, etc.). doxycycline hyclate 100 mg [...] greater t (more content not included)... Normal [facility] Patient Profile - Preop v3on 04-25-2022 Patient Profile - Preop v3 Patient Profile - Preop: Initial Info: Patient DemographicsName: SOFIA WIGGINS Date: 2000 Address: [address] [place] [address] Primary Phone [phone] How to be AddressedNicolette Spoken Language PreferredEnglish Source of Informationpatient Stated Reason for AdmissionR breast cyst removal Primary Contact Name and NumberTom Andrews ([facility]) [phone] Limitations on Visitors/Phone Callsnone Medications Brought to Hospitalno General Health: Patient or Family Member Reaction to Anesthesiano previous reaction Blood Avoidance/Restrictionsnon e Previous Transfusion Reactionnot applicable Health Mgmt: Symptoms/Conditions Managed at Homerespiratory Are You no Are You Currently Breastfeedingno Respiratory Symptoms/Conditionsasthma Respiratory Management Strategiesmedication therapy; routine screening Barriers to Managing Healthnone Relationship/Environ: Lives Withspouse Living Arrangementshouse Resource/Environmental Concernsnone Anticipated Transition [place] [facility] Anticipated at Transitionnone Tobacco Use: Tobacco Useyes Tobacco Typecigarettes Last Tobacco [id number]-Gjk-4031 Number of Packs per Day1 Number of yrs6 Pack yrs6 Pre-op Checklist: Arrival Scjx26-[id number]-7033 Arrival Time08:08 Procedure Typebreast biospy NPOyes Last Food Cpqpny32-Nfe-6441 00:00 Last Clear Fluid Hfaydp30-Sth-5897 00:00 ID Band On Patientpatient ID (name), [...] 25-Apr-2022 08:09 by Saumya Crane (KYA) Normal [facility] Surgical Pathology Depar tmenton 04-25-2022 [facility] Surgical Pathology Department Name SOFIA [...] reviewed this case. Diagnostic interpretation performed at [place] [address] Clinical History: Physician Contact Number: [phone] Ischemic Time (A): 09:40 Fixative (A): Formalin [...] measures 2 x 1.1 x 1 cm. Field Cane Scaler sections are submitted in one cassette. AXQ [facility] Department of Pathology [address] [place] [address] Normal [facility] Comment on above: Performed By: #### U HCS #### [facility] Surgical Pathology Department [address] [facility] [address] CORONAVIRUS 2019, SCREEN ASY MPTOMATICon 04-24-2022 Lab Specimen Source Nasal, Nasopharyngeal Normal [facility] Comment on above: Performed By: #### C OVSC #### [facility] [address] [facility] [place] [address] Coronavirus 2019 RNA by PCR, Screening Asymptomticon 04-24-2022 Coronavirus 2019 RNA by PCR, Screening Asymptomtic Not detected Normal See Below [facility] Work Phone: Comment on above: [...] make patient management decisions.Fact sheet for providers: https://www.fda.gov/media/111661/downloadFact sheet for patients: https://www.fda.gov/media/758461/downloadThis test has received FDA Emergency Use Authorization (EUA) and has been verified by [facility] ([facility]). This test is only authorized for the duration of time that circumstances exist to justify the authorization of the emergency use of in vitro diagnostic tests for the detection of SARS-CoV-2 virus and/or diagnosis of COVID-19 infection under section 564(b)(1) of the Act, 21 U.S.C. 360bbb-3(b)(1), unless the authorization is terminated or revoked sooner. [facility] is certified under CLIA-88 as qualified to perform high complexity testing. Testing is performed in the [facility] laboratories located [place] [address] [place] [address]. Follow Up (Breast Surgery)on 04-10-2022 Follow Up (Breast Surgery) Diagnoses/Problems Assessed Infected sebaceous cyst (706.2) (L72.3,L08.9) Orders Infected sebaceous cyst Start: Doxycycline Hyclate 100 MG Oral Capsule; TAKE 1 CAPSULE EVERY 12 HOURS DAILY Rx By: Juan Taylor; Dispense: 14 Days ; #:28 Capsule; Refill: 1;For: Infected sebaceous cyst; CORINA = N; Verified [facility] to [facility]; Last Updated By: [email or web address]; 04/10/2022 10:01:38 AM Start: Ketorolac Tromethamine 10 MG Oral Tablet; TAKE 1 TABLET EVERY 6 HOURS WITH FOOD Rx By: Juan Taylor; Dispense: 5 Days ; #:20 Tablet; Refill: 0;For: Infected sebaceous cyst; CORINA = N; Verified Transmission to [facility]; Last Updated By: [email or web address]; 04/10/2022 10:01:39 AM Start: traMADol HCl - [...] excised. She has been receiving care at [facility]. 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 Nulliparous No use of [...] FINISHED. Vitals L-Dex Vitals Recorded: 10Apr2022 09:14AM Zbppxwnvxln74.5 F Heart Rate99 Allklmrs115 Eigfciqbq98 Height4 ft 11 in Bqkvmh994 lb 4 oz BMI Fiygxlelht23.18 kg/m2 BSA Calculated1.72 O2 Cbphuxksoz51 Physical Exam Area of the cyst is somewhat smaller can still express small amount of pus through a port in the skin. Mildly tender. Signatures Electronically signed by : Juan Taylor MD; Apr 10 2022 11:30AM EST (Author) Normal [facility] Cult, Misc + smearon 022 Bacteria identified Cx Nom (Unsp spec) [facility] Work Phone: Initial Visit (Breast [...] [facility]; Last Updated By: [employer]; 03/27/2022 10:41:36 AM Cult, Misc + smear; Status:Hold For - Specimen/Data Collection; Requested for:80Gvn2654; Perform:Lab Services - Office to Draw (Non-Blood Test); Due:36Kxg2502;Ordered; For:Infected sebaceous cyst; Ordered By:Juan Taylor; Site [...] excised. She has been receiving care at [facility]. 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 Neck - Exam: Appearance of the neck was normal. No neck masses observed. Thyroid Examination: Not enlarged and there were no palpable nodules. Pulmonary - Respiratory effort: Normal respiration. Auscultati (more content not included)... Normal [facility] MISCELLANEOUS CULT./SM.BACT. on 03-27-2022 MISCELLANEOUS CULT./SM.BACT. PATIENT: SOFIA WIGGINS LOCATION: [facility] BILL#: [id number] : [birth year] AGE: SEX: F ORDERED BY: JUAN TAYLOR SOURCE: WOUND/ABSCESS COLLECTED: 03/27/22 00:00 ANTIBIOTICS AT TIMOTHY.: RECEIVED : 03/27/22 17:02 SITE: R E S U L T S GRAM STAIN FINAL 03/27/22 19:21 NO GRANULOCYTES SEEN. 3+ GRAM VARIABLE COCCI MISCELLANEOUS CULT./SM.BACT. FINAL 03/31/22 12:04 1+ MIXED SKIN JIL 4+ ANAEROBIC MIXED BACTERIA Normal [facility] Comment on above: Performed By: #### M [facility] #### [facility] [address] [place] [address] Coding Summary.on 02-19-2022 Coding Summary. CD:[id number] Gh0bW w+PGhlYWQ+UK8JYHTgK76zwNK thM5DM3gGMI2UKWDDHNOLZJ4J TJ9sqWP0TSszZ0EnsaXy HyflqKLfFN05LDj5XFH9nRzkG YlgnI8rrTNvL6c5QgZxCI85nU 16KMzqWXJfBmY8ZbGmrglxpPM y G2ghCiQytLQuFgh+PHRhYmxlI HdpZHRoPScxMDAlJyBzdHlsZT 0sFr1sIALiARGneJymsLPmRjM j g4daHLRmZJjlYH3teQbrW8Yzs WS3KHTvt2y9Tf65uPX+PHRkIH J6vElfRMwke241PkRzo5jqCQO 3 qLZdPEprTUJ7C47ep4S5VSZvN APjXRJ8zYX0bZ7ryNlaivooA3 AgrWXdVtG5ZNJ3bEAmnQ4ahQi n qpdtwF1wDep+L95WNR1FOJJKN Z7GOln5I6KsZtzwaAX+PC90YW BeEU58wTWevXLgq8hynVv7ArV w CPDfRFE8xEaoABpya2NsTIBkA 17rqLHfg7R5GDKcrRsjmKBaJk IqgPG0wY8rHEjgacslh5agmgx n Txwst0kssi72dR34U11rTLngH ZKrNPG1TPMzLAPqfWrqqh9iqH 9wIi8+HDtqe8fzx9pqwHu8FhL w NPTqjbVvmSnrDKK9g1OiEz45S 5LyhEkxy3ExVef0vg11pALbd2 G0rKX7GObrQWKipF8yBLbvMaR 6 BVXcMuOmtB42mMHiFDgjGx2ic UqdcGwcOK0bIUYgolzzVBVpyD 0uQAGmnBGjjGevMM2wMETvifo m h662EeBbPPZ8BOOauEWqO4Jdh Z6pJuKvRKSgQSXsE3UanVXuQQ lwB078VEkdNbD9SRJczpAqX9F s KFXdbLsaAjQ9c8V2Gm7Vl1Ywz guhIQK8PDkdXOF8FoKuAaMdVf H2D1TvAay8XTJtaQgfON4cT4L h IYEapniuyhutzQP6VNCsHUWdl R28wKTvZPxeQa4oc4D3u711LS XqMMEaeH93Qu1eiOrnIEUfrYP U oZ9uoruem9rzqykaKqTpRIToB Wu8PWi2SKKjoSbeHhQbBYA3Ez D5YIT2uNPgnB4hyYhtijzvrK7 w Oyc+R11fjK9dUWQ4JPV8hgiiB BTptvMyQF11FR06J2HvXxfunZ FibGU+VURzzrKrcVnjAX1gScB j g8fxl2RoNZxxT3ZtJHNgNZqkO zt5LCMsTUP3tLT5dR4uDZRtMJ rbw1D6dCO5C6TcvkRxvn7gx3r s IZSmQIecP66ufOZss6V2FSXra LS3PFZgfHxuTnUkiS38Zjp+PG HyyLjhj8KsSxjve2jbk1axjFb 9 IxYxPRVnioZojGyxFOY9q9KwS p96D27bLEmzTWAqYRXqCDUbTY LcoGjjjl1fcG7kVp4+PGNvbCB 3 pNM8xE4cYBSqCfR9QAxsW128X rIxqHOoUztcq6dyb1ideZl9Wo PxOSCqosDasBwpCZH7y0IuJc4 8 Y27zFDhbAIBkFDWkRICeSJDce Drlfk4pgG4sPz3+JR9mv3vnzg 26mP00hCP+HMQoLFL2vUnfXNa w EGByhR0iSZboTtB9IEOlQyQai F01gPTjJPalGm2dqCcisVpoZE 8iMQOywkqnv337UrDze1kqGCH w aRZkETohVLU8V08et5Z6QFMeQ WAoXSW8fRU0uZ1feWlryagafR FegNsrzzMcqIroXQkhKByoA73 6 IHRvcDsnPlBhdGllbnQgTmFtZ Ya7H3YjJfh4AGEeyCxvEI3reE VnUOmcGp5hxVbawOcjXQ8vUHT p vpqll934IvHlt0buAAAngIJfN PjtJNR3R88qg3B8GOQsKXUmIO X1kRJ9gE1pjZvozpuhuFLjqNx g jjKvcNuoXIpcXTflJ586QIAcy TlfEbLcmqPzSDSgyXX8QN35VX 16cPHmq6N2rQN9W9LrWALhvhq t qcxhmBF0HOUnLXIogM23Ax0nb XhqKy8fTNZsIEZ2LJObxDEdA9 XajH9tBsRvERUpJIYbN0NamAW t RJfqB860VBxqMoJ7EOFtyjVpC 3ScOTInsGnzAfG9a9C3Zz3DG5 O8NG78QS32mXDiv2Z2xJA6D6L h YWJimpodedvqwEX2FBJmRVWrd U48Yj7ojHwxWw6tERZrHIU7IH RbnWKiR7FtlB7jAeFsTFUxPHF w J9BbrJSmZBjcY262ZIfhHiD4J ANuukBnI0RrDMCvnRroRiB4h7 N8Ld9IZUx9HE38UY02hAPuv2T 5 rBD9T1YpQTYiolorcvlynRE8C LBoFVGsnX67Ea7fcHcuQi5kBU BsEGI0HWQuvPAaB4HzkV8zZuV j SROnXHIqM8HuaBKtKNtjG473P AjgGvC0FQJuetCsV7EjUIDwtS fxDkR2v4H0Db2YTJAeAO61CAN 5 kUF3VG70FI53Y2TaSaywdXQqq +PHRhYmxlIHdpZHRoPScxMD VjZfKgrUnaDJ2aMi5hDRFoABL v sTsgsTLuTkFqx5oqQYFjVUnvI U6xhSswK9BmkRF1UUNtk0f5Dp 93H08aR3AngGK+IBThzWC7qJV 0 vM7hWeAyYgM3WRdqF813LvHgy UXnKldau5qfx1hgoTg5KrM5KF VmvsOkyEkiRIY1t0DnAe14Z03 s IHdpZHRoPSIxNSUiIHZhbGlnb h5xbE0yMh8+HVPmoJA7dSI6xH 8vVmOcUmL0KKpjS784GqOmlTO v Rfyqq2obp3nllEn4TtJwJYRsd jFhhVmrTCH9v4WmSt08N7AeiH uso6GbOki2je08lMVmb4D5xQO 9 W9TdSUAbyykdgHIbfUkiXI3jC REennowMMDzzG9wXGGzM7v7Dy DuJrI1NXqxX4KkdlL8VVOonJD g NBgbTAW9O52cd5K8RCWzMJYeA LF6tKX4tN6jtXindpddeNVpwT gybwEcyYmnUNzgYPdoT279ZGA v vWhhXRMhcG3fTIZkdBEzdKsgT N5xMWJfotjwAnSTBJMmDK3AI5 9MRVRURTwvdGQ+QXAnJVZ0qUv l RYfqWXTpyT3wCZDnV8l9DsUcS uI9MRjzF2XuTNHuycmvOh79jR 9xYlTtPhW2AOjrA7GjpwW9ODW w nTSyIDskMIG4U07yr8Q1PVKhQ MOlLIV6bOW7aQ1bgKcfdclbzR DzeHexffNuxVrdXZsrJWwfJ66 6 GJAopBtyUcPrSkFcEkO3UPt9I 9OiTyl1EXTmdDjuAW5yyZPzQF bsDh0ruTognGqnNZ8lUEPdwdt w SSCozC5lMRSkfYXzkBdgGA2lX GLhcjsmx465LwCnDAD6LBVudP HcX2IrpC3kLoZjRPWbOAChV9G l mPKlTOzxW690DJxuQxU8ZAMge vJnV1GvWESntZxzCzD5v5H0Ua 4yMyBZZWFyczwvdGQ+PHRkIHN 0 lSowHHnoJPJceT3wLLMpV0h3N dPrUyG0OMnmX6AzGHPdbkbsEv 49aV6zJnPpAqK0EZwrQ1CrotA 6 PYWnfUFnQUqxXHQ0D68px1B5D RLlBUZfIQS2dPS0pR4wqOhntw ogbGVmdDsgdmVydGljYWwtYWx p F535OOTmrCzmUtGxcNVmUCmjh GQ+INOvYHN5mLxiSRziDCCgrU 2kPSKlK7a5SrXnByM0XWonI0M h NIQvdfjqEs59eO3kYbFfVhX4C YubO3ZqoqS4NEXkkNDvWJcoND T2W53pf3W9QPFuKHQcTNF6pCZ 4 rX6wsRpbmuhtbBAleHlmwtBzd LjgDEuyNAyxM050TMBibWhdUe VsPOGdSY7hhAhkxXZ+AX16og2 8 G9FxTinpOws4HZHnHNO2bTG4v O4rOLYfEDzqr8S6yBU5X0Kpoy Cgrm2qh8ykJPJnMHoyO34dfTE w q6Z3LHZseEM7IWSngHwiZeBjc G93Oyc+SHNyiIldj2VsXssft5 ekg5ateZe3BtXwNNLkkyEpfOg u YAY9k2XuSd37C77pSSjqILSdW IRpIYDrSFLuuWyquw5suL0fZk 8+PVRsrDX6kAO5lE4kEhOlPpH 2 ZQorD183LoNrgKFsGfvmu8sff 8dlcVc2FzEkOOQpvrWztRdrFG Y8z3HoZd44F9CdnLvpw9RuVwj 0 kr85sOErk8D0rXU0O9GxGJRkj iyhuWBtwDjgGO3aGEJhxfzfZY MxpM3jUVQwD9y5CoQlZnA0XCv u H7EoewV1KKQrhIRkCOEpmNGId D2xdjxjq4gqdjmbUqGhJVQkXS w0HFv3WPNiqFmwKtPsDOD6BfH 2 XPP2iMIlzZ8xfPsjnezikJ4jE yc+CVv4h0dhjNSlIF7aqYE0VD 92NW94kGEvc9F8qIH4Z7VnUZS p sgncvciezIX2GIWbGPObsQ66Q u5haQefHw3sLZLzKTO1SFKvvW KpM4IooL0bTuWfKLNyUVNrE2F l tOYqNVenS661VZjgAtQ3HEMfc rYfG7VsZOFfsQmfPiG6w5F5Yw 2YEW25QN05PW23kAHmr9Y3uDL 9 C8LaHCQrteeabjxpaKV8AMLuQ DSbkR22Nd5ztTfpAa7rVSVlIN T5TUQeeHSrV8QoiI3iQeOmSYV w UMQjD0QmyZWfMZhkD731GOdfB rU0OGUoyoZnT5NeLMQcrCkxSx K4i3B7Bo8LOk78LT09PS54rOE g s3W9jSG1X7ItDMFhnvyiwmare EU5DTLzQOKlmO61Vf8geUrdXp 8wWCZkOYK7KSHauYKzR2VksQ4 y IvLuIVKuCKXjY5ZkiNRvGTjgS 197JRqoDwS2LWPvciKoC9MuUG GssIfbRmJ8d9Q1Ib8XRIkdehq 8 W3PkKvaovRW+RG20EWOaBH56f IJgyOWep2thtPm4BwMqIWVhBI B9qUgcFDepy5OwDZXuA96tkDY w c2U6 (more content not included)... Normal [facility] Auto Diffon 02-18-2022 Basophils/100 WBC (Bld) 0.9 % Normal 0.0-2.0 [facility] Comment on above: Order Comment: Order Added by Discern Expert. Performed By: #### 2 588413, 2837038, 10932924, 41709974, 9961336 ####[address] [address] Basophils/Leukocytes Auto (Bld) [Pure # fraction] 0.1 E9/L Normal 0.0-0.2 [facility] Comment on above: Order Comment: Order Added by Discern Expert. Performed By: #### 2 946386, 8779942, 48897150, 14253040, 7926788 ####[address] [address] Eosinophils/100 WBC (Bld) 7.0 % Normal 0.0-8.0 [facility] Comment on above: Order Comment: Order Added by Discern Expert. Performed By: #### 2 643257, 8330431, 15842588, 47054301, 9650947 ####[address] [address] Eosinophils/Leukocytes Auto (Bld) [Pure # fraction] 0.6 E9/L High 0.0-0.5 [facility] Comment on above: Order Comment: Order Added by Discern Expert. Performed By: #### 2 106334, 1112036, 80052153, 12732770, 9380188 ####[address] [address] Lymphocytes/100 WBC (Bld) 33.5 % Normal 14.0-50.0 [facility] Comment on above: Order Comment: Order Added by Discern Expert. Performed By: #### 2 824484, 4239410, 43866008, 84614493, 1939848 ####[address] [address] Lymphocytes/Leukocytes Auto (Bld) [Pure # fraction] 2.9 E9/L Normal 1.0-4.0 [facility] Comment on above: Order Comment: Order Added by Discern Expert. Performed By: #### 2 959634, 9639035, 83066899, 03732532, 0382442 ####[address] [address] Monocytes/100 WBC (Bld) 8.4 % Normal 4.0-14.0 [facility] Comment on above: Order Comment: Order Added by Discern Expert. Performed By: #### 2 368442, 1008173, 83163074, 79259518, 2991352 ####[address] [address] Monocytes/Leukocytes Auto (Bld) [Pure # fraction] 0.7 E9/L Normal 0.2-1.0 [facility] Comment on above: Order Comment: Order Added by Discern Expert. Performed By: #### 2 972388, 0089062, 85059591, 29485328, 9473923 ####[address] [address] Neutrophils/100 WBC (Bld) 50.2 % Normal 36.0-75.0 [facility] Comment on above: Order Comment: Order Added by Discern Expert. Performed By: #### 2 065762, 0244768, 25771001, 60920816, 2229747 ####[address] [address] Neutrophils/Leukocytes Auto (Bld) [Pure # fraction] 4.3 E9/L Normal 2.0-7.5 [facility] Comment on above: Order Comment: Order Added by Discern Expert. Performed By: #### 2 760331, 5565245, 40996599, 21956611, 7460731 ####[place] [address] CBC w/ Auto Diffon Erythrocyte distribution width (RBC) [Ratio] 14.6 % High 10.9-14.2 [facility] Comment on above: Performed By: #### 2 028444, 3893892, 20627626, 08610152, 7953776 ####[address] [address] Hematocrit (Bld) [Volume fraction] 45.5 % Normal 34.0-46.0 [facility] Comment on above: Performed By: #### 2 676115, 3869137, 94764833, 30947820, 7716886 ####[address] [address] Hemoglobin (Bld) [Mass/Vol] 15.0 g/dL Normal 12.0-16.0 [facility] Comment on above: Performed By: #### 2 388911, 5003944, 23424108, 67470115, 3840071 ####[address] [address] MCH (RBC) [Entitic mass] 29.6 pg Normal 27.0-34.0 [facility] Comment on above: Performed By: #### 2 748272, 5421455, 04941432, 62900163, 7989027 ####[address] [address] MCHC (RBC) [Mass/Vol] 33.0 g/dL Normal 31.4-36.0 [facility] Comment on above: Performed By: #### 2 507646, 8780354, 74151603, 37691281, 7289306 ####[address] [address] MCV (RBC) [Entitic vol] 89.7 fL Normal 80.0-100.0 [facility] Comment on above: Performed By: #### 2 283357, 6063296, 62614253, 50686539, 3725832 ####[facility] [address] [place] [address] Platelet mean volume (Bld) [Entitic vol] 10.5 fL Normal 6.4-10.8 [facility] Comment on above: Performed By: #### 2 232205, 1732685, 88413471, 20968683, 9721508 ####[address] [address] Platelets (Bld) [#/Vol] 339.0 E9/L Normal 150.0-500. 0 [facility] Comment on above: Performed By: #### 2 375026, 2485708, 55714844, 68624679, 7393621 ####[address] [address] RBC (Bld) [#/Vol] 5.1 E12/L Normal 4.3-5.9 [facility] Comment on above: Performed By: #### 2 478039, 8986050, 58933969, 92725503, 7765039 ####[address] [address] WBC corrected for nucl RBC Auto (Bld) [#/Vol] 8.6 E9/L Normal 4.0-11.0 [facility] Comment on above: Performed By: #### 2 059138, 0110234, 12378409, 75878660, 4379493 ####[address] [address] CHEMISTRYOrdered By: SYSTEM SYSTEM on 02-18-2022 [place]in [place] GFR/1.73 sq [...] 02-18-2022 Albumin [Mass/Vol] 4.3 g/dL Normal 3.3-5.0 [facility] Comment on above: Performed By: #### 2 876927, 6299101, 75148402, 61084273, 9126268 ####[facility] [address] [place] [address] Albumin/Globulin (S) [Mass conc ratio] 1.2 Normal 1.1-2.2 [facility] Comment on above: Performed By: #### 2 615282, 5869890, 77062845, 72425975, 8065559 ####[facility] [address] [place] [address] ALP [Catalytic activity/Vol] 80 Int._Unit/L Normal 21-98 [facility] Comment on above: Performed By: #### 2 755737, 3162984, 55142917, 64391219, 8269749 ####[facility] [address] [place] [address] ALT No additional P-5'-P [Catalytic activity/Vol] 46 Int._Unit/L Normal 6-46 [facility] Comment on above: Performed By: #### 2 077306, 3014312, 92486133, 60267094, 2114319 ####[facility] [address] [place] [address] AST [Catalytic activity/Vol] 37 Int._Unit/L Normal 5-43 [facility] Comment on above: Performed By: #### 2 000729, 6196144, 46511669, 49736834, 1092198 ####[facility] [address] [place] [address] Bilirubin [Mass/Vol] 0.8 mg/dL Normal 0.0-1.1 [facility] Comment on above: Performed By: #### 2 588451, 2486089, 14512856, 58584106, 5471025 ####[facility] [address] [place] [address] Creatinine [Mass/Vol] 0.7 mg/dL Normal 0.5-1.3 [facility] Comment on above: Performed By: #### 2 533806, 9296250, 65106942, 45564796, 3562980 ####[facility] [address] [place] [address] Globulin (S) [Mass/Vol] 3.6 g/dL Normal 1.4-4.0 [facility] Comment on above: Performed By: #### 2 653735, 4062099, 19356254, 21924535, 6960519 ####[facility] [address] [place] [address] Protein [Mass/Vol] 7.9 g/dL High 6.0-7.8 [facility] Comment on above: Performed By: #### 2 522689, 1605225, 92818763, 78395662, 4529211 ####[facility] [address] [place] [address] Urea nitrogen [Mass/Vol] 11 mg/dL Normal 5-21 [facility] Comment on above: Performed By: #### 2 098700, 5455657, 29559311, 64960285, 4740189 ####[facility] [address] [place] [address] Urea nitrogen/Creatinine [Mass ratio] 16 No Units Normal 10-20 [facility] Comment on above: Performed By: #### 2 152381, 0256175, 30854022, 18877564, 0770295 ####[facility] [address] [place] [address] Anion gap [Moles/Vol] 12 mmol/L Normal 6-16 [facility] Comment on above: Performed By: #### 2 009622, 7421867, 54006303, 10928815, 7464452 ####[facility] [address] [place] [address] Calcium [Mass/Vol] 9.6 mg/dL Normal 8.9-11.1 [facility] Comment on above: Performed By: #### 2 597814, 0389345, 82416047, 83694959, 2058700 ####[facility] [address] [facility] [place] [place] [address] Chloride [Moles/Vol] 105 mmol/L Normal 101-111 [facility] Comment on above: Performed By: #### 2 814315, 6727576, 99492086, 67055910, 2211019 ####[facility] [address] [place] [address] CO2 [Moles/Vol] 27 mmol/L Normal 21-31 [facility] Comment on above: Performed By: #### 2 907511, 4079991, 26152373, 99483236, 3992826 ####[facility] [address] [place] [address] Glucose [Mass/Vol] 69 mg/dL Normal 55-199 [facility] Comment on above: Result Comment: If t his glucose result represents a fasting glucose, interpretation should refer to the following reference range: 55-99 mg/dL Performed By: #### 2 635822, 7772690, 75838274, 37840181, 4455113 ####[facility] [address] [place] [place] [address] Potassium [Moles/Vol] 3.9 mmol/L Normal 3.5-5.3 [facility] Comment on above: Performed By: #### 2 699993, 5252003, 56620089, 26289940, 8549325 ####[facility] [address] [place] [place] [address] Sodium [Moles/Vol] 140 mmol/L Normal 135-145 [facility] Comment on above: Performed By: #### 2 528317, 4599751, 87263908, 41000001, 4842033 ####[facility] [address] [address] Consent for Treatmenton 01-31 Consent for Treatment [id number]#[id number]:12 7 Normal [facility] Discharge Instructionson Discharge Instructions [id number]#[id number]:1 27 Normal [facility] ED Clinical Summaryon 2021 ED Clinical Summary (Inserted Image. Kelsy ble to display) [place] [id number] ED Clinical Summary Person Information Name: SOFIA WIGGINS/Araceli Age: 21 Years : 2000 Sex: Female Language: [place] PCP: Wandy Dorado DO Marital Status: Single [...] 02/18/2022 15:44:15 02/18/2022 15:44:15 02/18/2022 15:44:15 ADDRESS: [address] [place] [id number] PHYS DOC NOTES: MEDICAL INFORMATION: Prescriptions Given: PATIENT EDUCATION INFORMATION: Instructions: Epidermal Cyst, Opaf-mf-Ysxw Follow up: With: Address: When: Sara MCGRATH, [place] In 3 days 02/21/2022 DIAGNOSIS: 1:Epidermoid cyst of skin of chest; 2:Chest pain Normal [facility] ED Note-Physicianon 02-19-20 ED Note-Physician Basic Information [...] few weeks ago she was seen at [facility] ED and had an abscess drained; [...] will also work on obtaining labs from [facility]. Patient to be given morphine and Zofran for her pain. Aspirin for her chest pain. Vital Signs: Reviewed the patient's vital signs. Nursing Notes: Reviewed and utilized the nursing notes. Adjunct Psychology Instructor: not needed - patient preferred language is [place]. Old Medical Records: The patient's available past medical records and past encounters were reviewed. Summary of pertinent elements include: Patient was initially seen on 01/08/2022 for an abscess of her chest wall. These records were not sent to us. [facility] sent over two most recent visits [...] Percocet prescri (more content not included)... Normal [facility] Comment on above: Result Comment: Elec tronically [...] Follow these instructions at home: ? Take eyog-zcl-mvvwycn and prescription medicines only as told by [...] cyst, or to remove it. ? Take zcrp-qnd-lbmqfpm and prescription medicines only as told by [...] 11/26/2005 Document Revised: 02/09/2020 Document Reviewed: 07/28/2019 [employer] Patient Education ? 2019 [employer] Normal [facility] ED Patient Summaryon 022 ED Patient Summary (Inserted Image. Kelsy ble to display) [place] [id number] Patient Discharge Instructions Person Information Name: SOFIA WIGGINS Age: 21 Years Arrival Date: 02/18/2022 11:49:36 Discharge Diagnosis: 1:Epidermoid cyst of skin of chest; 2:Chest pain Primary Care Physician: Wandy Dorado DO Provider Information Primary Provider: Cheng Saldaña DO Advanced Customer Service Supervisor:aFbi Iraheta PA-C The exam and treatment you received in the Emergency Department were for an urgent problem and are not intended as complete care. It is important that you follow up with a doctor, nurse practitioner, or physician?s assistant auto center manager for ongoing care. If your symptoms [...] participating provider. Patient Education Materials: Epidermal Cyst, Terq-ar-Utdn A MESSAGE TO ALL PATIENTS REGARDING OPIOIDS PRESCRIPTION OPIOIDS: WHAT YOU NEED TO KNOW Prescription opioids can be used to help relieve waadsgsx-nb-iayind pain and are often prescribed following a [...] be struggling with addiction, tell your health animal care worker and ask for guidance or call [facility] National Helpline at 5-816-300-GFMB. q Source: [place] Department of Health and (more content not included)... Normal [facility] HEMATOLOGYOrdered By: SYSTEM SYSTEM on 02-18-2022 Basophils/100 [...] [facility] HemeAutoSS Outside Recordson 02-18-2022 Outside Records [id number]#[id number]:1 27 Normal [facility] Prescriptions/Work Noteson 0 02-18-2022 Prescriptions/Work Notes [id number]#1.00CD:1 27 Normal [facility] SEROLOGYOrdered By: Tod For ster on 02-18-2022 HCG.beta subunit (U) [Moles/Vol] Negative Normal [facility] [place] [facility] [place] Sero Troponin 0 Hr.on 02-18-2022 Troponin I.cardiac [Mass/Vol] ng/mL Low 10.10-27.1 0 [facility] Comment on above: Result Comment: The 95% CI (Confidence Interval) PPV (Positive Predictive Value) for myocardial infarction in females is 38 pg/mL, in males 51 pg/mL. The results should be used in conjunction with clinical conditions of myocardial infarction. (Access High Sensitivity Troponin I Instructions For Use, [employer], June 2018) Performed By: #### 2 798598, 8072985, 40923450, 04958192, 5264304 ####[facility] [address] [place] [address] U BetaHcg Qualon 02-18-2022 HCG.beta subunit (U) [Moles/Vol] Negative Normal [facility] Comment on above: Performed By: #### 2 8853777, 15378914 ####[facility] [address] [place] [address] UA With Cult Reflexon 2021 Epithelial cells.squamous LM.HPF (Urine sed) [#/Area] 0-2 Normal 0-2 [facility] Comment on above: Performed By: #### 2 9140690, 19084671 ####[facility] [address] [place] [address] [place].plasma/[place] .RBC (Bld) [Mass ratio] 0-3 Normal 0-3 [facility] Comment on above: Performed By: #### 2 7052620, 79470022 ####[facility] [address] [place] [address] WBC LM.HPF (Urine sed) [#/Area] 0-5 Normal 0-5 [facility] Comment on above: Performed By: #### 2 0750053, 64518264 ####[facility] [address] [place] [address] Bilirubin Ql (U) Negative Normal Negative [facility] Comment on above: Performed By: #### 2 5515614, 97812554 ####[facility] [address] [place] [address] Clarity (U) CLEAR Normal Clear [facility] Comment on above: Performed By: #### 2 5731170, 42802802 ####[facility] [address] [place] [address] Color (U) STRAW Invalid Interpretation Code [facility] Comment on above: Performed By: #### 2 6348026, 12441752 ####[facility] [address] [place] [address] Glucose Test strip (U) [Mass/Vol] Negative Normal Negative [facility] Comment on above: Performed By: #### 2 4535471, 69487514 ####[facility] [address] [place] [address] Hemoglobin Ql (U) TRACE Abnormal Negative [facility] Comment on above: Performed By: #### 2 5599738, 84991051 ####[facility] [address] [place] [address] Ketones (U) [Mass/Vol] Negative Normal Negative [facility] Comment on above: Performed By: #### 2 8245108, 61795247 ####[facility] [address] [place] [address] Nitrite Ql (U) Negative Normal Negative [facility] Comment on above: Performed By: #### 2 8402248, 16289214 ####[facility] [address] [place] [address] pH (U) 6.5 [pH] Invalid Interpretation Code 5.0-9.0 [facility] Comment on above: Performed By: #### 2 4675853, 77153427 ####[facility] [address] [place] [address] Protein (U) [Mass/Vol] Negative Normal Negative Fi [facility] Comment on above: Performed By: #### 2 5274899, 89757398 ####[address] [address] Specific gravity (U) [Rel density] <=1.005 Invalid Interpretation Code 1.005-1.03 0 [facility] Comment on above: Performed By: #### 2 0693842, 00177027 ####[address] [address] Type of Urine collection method Random Urine Normal [facility] Comment on above: Performed By: #### 2 4256673, 49669714 ####[address] [address] Urobilinogen Qn (U) 0.2 {Kevin'U}/dL Normal 0.0-1.0 [facility] Comment on above: Performed By: #### 2 2429119, 08867327 ####[address] [address] WBC Auto Ql (U) Negative Normal Negative [facility] Comment on above: Performed By: #### 2 7949760, 34719068 ####[facility] [address] [place] [address] URINALYSISOrdered By: Tod camp on 02-18-2022 Bilirubin [...] PM) Normal Negative [facility] UA Auto SS [place].plasma/[place] .RBC (Bld) [Mass ratio] 0-3 /HPF Normal [...] FT UA Auto SS Urobilinogen Qn (U) 0.3800565 {Kevin'U}/dL Normal 0.0 - 1.0 EU/dL [facility] [...] M.D. Transcribed by: DARWIN Technologist: KENYA Metcalf [facility] eGFRon 02-18-2022 GFR/1.73 sq M.predicted among blacks MDRD (S/P/Bld) [Vol rate/Area] mL/min/{1.73_m2} Normal >=59 [facility] Comment on above: Order Comment: Order added by Discern Expert. Result Comment: eGFR is race adjusted. AA=. Performed By: #### 2 138601, 7622545, 96228482, 04690425, 1877895 ####[facility] [address] [place] [address] GFR/1.73 sq M.predicted among non-blacks MDRD (S/P/Bld) [Vol rate/Area] mL/min/{1.73_m2} Normal >=59 [facility] Comment on above: Order Comment: Order added by Discern Expert. Result Comment: Sheep Boner zhao kidney disease could be indicated at eGFR's of less than 60 mL/min/1.73m2. Kidney failure is indicated at less than 15 mL/min/1.73m2. Performed By: #### 2 896150, 7513402, 38629769, 36286765, 4166857 ####[facility] [address] [place] [address] Coding Summary.on 04-30-2021 Coding Summary. CD:[id number] Gh0bW w+PGhlYWQ+WH5TARQuV36mrPT ozZ6UO6kNAE7NTZPAYWQSYL9A UU4otVL5PZaeV4IffiDr KteviSGaSB16QGw2IOC0mJooX UjjiP5ioGBkQ8g8HwKiYZ77pV 34KMvrEHCmJzD0EiZafzsmmJK y S3dgBvRsyZQkOoe+PHRhYmxlI HdpZHRoPScxMDAlJyBzdHlsZT 8wYv8nBFZwMDLkoCaptJLsMtF j r5xcYGQgJVyyNQ9vaQxhC5Sug NN0YHPma8m0Ul53wAN+PHRkIH D5cJwxTWrae225IqYuy0urRYJ 3 cWGfGCoeQBW6Z31vq6M8RRYzV MAxLXP1lYX7zO7dfZulgbncU1 KodLAlIgJ4XCL5iKOvlX3dsBr n mnudkU7fXfe+I06NTG9LNBZYJ E1UXff9W6IaYppxxFV+PC90YW QrMM46mUXosDZgc4drpCu5XuD w UVHlDRF7zIstNChab5TxOSAyR 74mxPLxb5E5EWTiiEgfyWJcQe NgmYX3mS1gAYurdghqh1xkqcb n Ssiah3kujr87aI90I63iDJbyZ PIsKMF4DSXiITYwhLquuk4epW 9wIi8+HJsib6dyf0pnxHu4JzO w RUZnnqWexLdaVEV6y4NbOe15H 7VxsCqzv2AjDhc7rz11tPOcc0 M6fRP5TMbaFBYjhM5lKEefHdE 6 ULDoWmQbtQ06qLQeOStqGi7ms YnfdSehVS4cGYCnlsvzYGJvoY 2jGVWkgIIxcMozBG9xUKKizxu m j691MoAlPUR5KSTcpGBzP2Thd Q0qPoSvIHUbYLPmA1QidQPkEA igZ656VOvrCnW6RMEfqkPeQ1U s VCMdtHxwDvY4f6I5Kc8Yz3Nyy fykGZP6WLppBBC6PiY8KlObIh J3Q0WtJts2UCDozKgaXJ4oT5J h FVGquidwvoumnDH1ZKIkUPLrv W98aVJqLJlnPe1uk0F7l981MS ZrJNIbfF36Mq3plHekFZYibMH U yJ8emsibf7wxarvwPfNrXMTjV Dv7KJn1OGPteNshImKdPDE0Wd D3VZB2pJNrdD0vyIoecbbrgM2 w Oyc+T07wwS0nFDX9KBI2xecqN DYkvvPsXQ23PG81R0LfBxrtmF FibGU+FARbzpVvbCusKA7lUqX j a6khm0LmOXxpW5PkHBJaZTzsM sj2UYZzWEP5tTD0iY9eZBQdMP cmo0T1rTR8R0GxujQyft0xc8d s SQGtFJjqI24obNRmr4K9FNMal TD0FOFweKnsGuTypZ98Nhc+PG FshTxsp2QnAkmkr6iuv6gweHj 9 UlOoYEKnvfQimZlzKQI1j9CyK q20F36mTHfzTZJkAFMxTWAxMJ LbyFhkis4ewG5nOf5+PGNvbCB 3 oUQ2qY9sNSUsWuD4DLkoO796N bTbxZFwWrigi3vev5fwxZb1Ke EhTZCxggFckYivXHT2a9EzKr9 8 R83sANtkULSdNRSiUNQjIADyd Oycuf4ltT8aAz1+KZ2qq9rgdx 52sG54aFE+JKIzQVV8vBzaZEc w SEAptZ7fOXqvIrZ6SRFaHsDah G84qHCpOFsnSw7aeQodiPexLB 0xEFLuvqcae932XfNoh1tlOCV w bYZeDUsxFFB4M61fw3U4JMSxI KSnZQO3sMN5rO2bpEcwtpkhjC WcjTdwlfNqeLkpUPeuDMpiM33 6 IHRvcDsnPlBhdGllbnQgTmFtZ Xv7K6BhSrq5JMOlbMjvYC7lhH ThWYioNx8cbWgpdArqTE9oELL p lljjr635CfRmd8pxAYMafPJvL TuvDJF2W35oo6K8RWOrRLNbPT U6vKD3fF6wqZuxclfaiNIygTx g kjDxkTuuSRgwOJklL222WKTvy RuqNdGqdyQpTJKqrVG3HC24HL 75tMGrr0N5mCK5U2CnTHVenbf t gujopEJ2WQBrSZHjgD05Ee6lp CyhIr5dLQKsPEA6APWtwUVaW5 XbkY2aHfRmNQAxPQMaF5YtmGF t OYrlC806LNufOiT7FFIqhoNnP 3BbDLModUohXdJ3g8Z6Um7RN5 J8VS23GL68jCBlk3F6cDH6C6G h JUHserixsjkcyVP7DQLhNSNqs L09Mw8keHwsGa8lIQKjJPG6ZB AjdEPaB4LkqE8yVzWlFEHyIJQ w F8RgxFSmRDzfW900GLxjCuY1Z STgujQxE4UeHCUenWtqTvJ6v8 M3Kq4WWEb4TE29RV47jDOwr6A 5 vCP9H0UuFDIrkyjlyfkfvUU0M LBiGGDifD87Ze8sgYxyHj6sJW NqXCG7VGWtpQRyC3HlzQ7cXjE j PLIgXWIiC9HezYNvMNldN774H KaoCiS4ZSVnxnKwF4BgTXOuzS giZmE4j3X1Le8QYRDjUQ90JNV 5 cIU3TF29ZZ92R0XtZkyxoFCxe +PHRhYmxlIHdpZHRoPScxMD KpIgZwzPyuJX4bRs6rSKSbOZP v oUfwdYBaWaBks8flGXGtQVzqI V7rhQioI7IpxPU1SNPdz9f1Gk 28E38eM3SuzKU+DUVtzPU6qWC 0 yQ7rQuWeYxE7ELypM690ZgUzx UWpVopiz1ylj6luwKn9ZzX2PL RrcwFeqLtoRPG1f1QkEn91A67 s IHdpZHRoPSIxNSUiIHZhbGlnb v5ooI6aGb4+DJGfsUY4sKN9nZ 4kMmPeDdZ8ULqsK274DqKduBK v Mhkjw0xjx6atdPt8HjLmYJWbc nAupEsiHHA1u4LmYf44D2MocY jgr8HqPzy2jv44uHAcp7F1uCX 9 P7DrNIYjsohelNLkwBocEX0aK EMizvwaDSNteM4yFNVoZ8u9Uq LiGmM1JWptD2ImlrH5DLJxgKO g LIwcAAS9O84ot8G4QPGkMBAiU CY5bWN4tP8cfPlwxkmzbIUumV kurxAdxWxvFEpvQWvjG209QLB v wVvsOWShdS6bKOTprITjdXinF S1aWHGwqpcnGxEDPHSeLW8FU8 9MRVRURTwvdGQ+ZORaLXB1yQf l QVlvVBYhgM9dICJxY9v1UqSpM oE2OTliJ6UpMXRekowsLz73uJ 0gQwInUjO1UMkkJ4KconL1CGY w kIJuSTdmMGU5K50xq4M7MFNiH BKyMCD5dLE7lN9ozJciszyvrN JcaAegdgNrtRfwEXriKSxyC27 6 PATulOpwKqSjWwZaSnD0IXu8U 5JvXxx3JFAxlGzuYS5ipUScYA jfYk5rsRlmvTaaTT7fAKHjwgf w YVJnkT3pGXKysDEmmIuzMP2bK VWzxvreu003WaHxTVK2FFOzgS DdE4KkkA6rLnCtJLNnREOmD9J l cMQyZXijO290XZqyVtM8YSGpc aXeM1MnLRIyuVjoKcC0w1I3Qj 4yMiBZZWFyczwvdGQ+PHRkIHN 0 yLrsXHdqOJEdrW4yCEQpJ2t1C cObBxO2AAcxY8LmQFTnxfobGd 06yD2oZuRvItN8DFciU8HzdpA 6 UHOwkJMoYPqoTKU4X42zf8L9K IWkEYRpAVU7mHC4oT7hwJtcwq ogbGVmdDsgdmVydGljYWwtYWx p W499XRTrnKplXzUheJOkQOcrp GQ+SLZhJFN5rTyrJQhdRHJmvA 0rNMVvX1e8IuMsCxQ6FJnaW1P h JEYerdebLq08fR1sCrAcVxE5O IlcU9MyssP1XXBnjUKbBQesZI V8Z59eo6N4FAXbZLZsMIZ4vRZ 4 tI0gdXpnhcztfWRnnXaegzZoa DujWHttHElaC325SIIriGspUc PuHAUsVC2itLuqxQK+MI34oc3 8 N1SoBfsyOuq6LKTqOJF9gQA0f B1oZGKrQCouv9O8aVJ0R0Qkrq Fwst1nv3kdJBIlCIreV90bqYR w y8C6QCMonNG2SDQcwEihBgUjx G93Oyc+BYGjeHrpj3FbOtkgg5 tgn9kqlJg3EzKcNFRyspEikIh u WKT3o0KeMo89D94aLPwfXJLgW TCwZTOvTZWthFbsvv1cdF2sRe 8+CGPjnIM1oDF2tP4vWmPvDeI 2 VEalJ587DfWjwIHfXshsi5etz 5ffuLa3TmVcVFNbfoLdpQxhRE S2e1MfDe50I1OeuRcwt5VpPlq 0 re26vODog1V2xTV8I3LlKFJih uzrkWLaaNeoIC2qMPJmzulwOW ZydH4uQEKoK8d8SuPqEcP9MIz u P7EtshA3LESygGYxNAByvGUOc A5cztiwn4zgdwfpQoYmWOBdOK x0WSv3SZIfwTkkLyEhVJT3RjA 2 TDS1iIZdvO1kzZxmxgpaiW7fL yc+EEj5f7bqpLAmJG0amBR9ET 55AY19bBFll8B2xOD4B3NeIOC p wemmyjebdXU2MGIzXKDhzK56M j0vxRmrGv7xIFUvHRS0ZBCmlP VeK7ZjgP6vSsJnGWLcFTXeN6D l bAQyLMudC705DNhhXtA6GIDgl vYcI7VvCNAhcXcmAzM3q3Z6Vs 0LJC65ZX51UQ54iOUcm2Q9lSP 9 N3FqADSfusxcohrvlYY5QVFvK QGenY06Sk4prLovYh1wLGNbLM M7CPLabUNkF1AyoN5gJvWkKFX w TCErO8KquERcIMbmS410LJzpR dE7JDXdsgWtS8AoCJZntDwnDj L0j3F5Vp5HNj20AF26JP99lYA g i1E4qTU8I1LsHSAlfuoyxrstu GJ9EQNzQKGvsI21Jx3alBwdQb 9pJZQbHRS9CFNarTLyG1QniM8 y QnZsUVGvTDRbB1AgwTYlOJmhK 428SHbiPuM4AFZbhyMrA9ObOO OjyMglFxF5k7J0Vn1KTIgatqx 8 K1PkXjqrxEZ+TD96QWMvXO78b YZwxWPzd3tmjGo5ObPfDGGiVU X4xBqwTGwhr3GlLRGrZ26tgJU w c2U6 (more content not included)... Normal [facility] ED Note-Physicianon 04-30-20 ED Note-Physician Basic Information Time Seen: Andrew Raniey PA-C 04/29/2021 16:12 Chief Complaint Pt states [...] Appropriate mood & affect. Integumentary: Warm, Dry, [place] Medical Decision Making Plain film x-rays were [...] EDT [address] [place] [address]- Business (1) Additional Instructions: Ice to the [...] available. Diagnostic Results No qualifying data available. [facility] Comment on above: Result Comment: Elec tronically [...] Lance M.D. Transcribed by: DARWIN Technologist: ZAK [facility] Consent for Treatmenton 04-03 Consent for Treatment [id number]:12 7 [facility] Discharge Instructionson Discharge Instructions [id number]:127 Normal [facility] ED Clinical Summaryon 2020 ED Clinical Summary (Inserted Image. Kelsy ble to display) [place] [id number] ED Clinical Summary Person Information Name: SOFIA WIGGINS/New_Dg Age: 20 Years : 2000 Sex: Female Language: [place] PCP: Wandy Dorado DO Marital Status: Single [...] 04/29/2021 17:51:20 04/29/2021 17:51:20 04/29/2021 17:51:20 ADDRESS: [address] [place] [address] [facility] [id number] PHYS DOC NOTES: MEDICAL INFORMATION: Prescriptions Given: New Medications Printed Prescriptions naproxen (naproxen 500 mg Tab) 1 Tablets By Mouth 2 times a day. with food. Refills: 0. Medications to Continue with No Changes Other Medications ethinyl estradiol-norgestimate (Tri-Sprintec 35 mcg Tab) 1 Tablets By Mouth every day. Refills: 4. PATIENT EDUCATION INFORMATION: Instructions: Tendinitis; Wrist Pain, Adult Follow up: With: Address: When: aWndy Munroe, [address], [address] [place] [address] Business (1) In 3 days 05/02/2021 Comments: Ice to the wrist, wear the splint at all times. Medications as directed. DIAGNOSIS: 1:Tendinitis of wrist; 2:Left wrist pain Normal [facility] ED Patient Education Noteon 04-29-2021 ED Patient [...] by your health care provider. ? Take dnhs-pqy-jrikqyd and prescription medicines only as told by [...] Reviewed: 03/09/2019 Elsevier Patient Education ? 2020 [employer] Wrist Pain, Adul (more content not included)... Normal [facility] ED Patient Summaryon 021 ED Patient Summary (Inserted Image. Kelsy ble to display) [address] [id number] Patient Discharge Instructions Person Information Name: SOFIA WIGGINS Age: 20 Years Arrival Date: 04/29/2021 15:18:05 Discharge Diagnosis: 1:Tendinitis of wrist; 2:Left wrist pain Primary Care Physician: Wandy Dorado DO Provider Information Primary Provider: Alton Francisco DO Advanced Customer Service Supervisor:Andrew Rainey PA-C The exam and treatment you received in the Emergency Department were for an urgent problem and are not intended as complete care. It is important that you follow up with a doctor, nurse practitioner, or physician?s assistant auto center manager for ongoing care. If your symptoms [...] Follow-up Instructions: With: Address: When: Wandy Dorado [facility] [place] Bren[address] Munroe , [address] [id number] [facility] (1) In 3 days 05/02/2021 Comments: [...] opioids can be used to help relieve peufldmg-qn-rbxjcx pain and are often prescribed following a [...] your he (more content not included)... Normal [facility] Ambulatory Clinical Summaryo n 04-12-2021 Ambulatory Clinical Summary {[id number] Normal [facility] Family Medicine Video Visit - Telehealthon 04-09-2021 [...] Contact Information Barbara Sen Only if needed [email or web address] Additional Instructions: Patient Education Health Maintenance, Female [...] Wandy Grigsby MA 04/09/2021 15:52 EDT Normal [facility] Comment on above: Result Comment: Elec tronically [...] Ask your heal (more content not included)... [facility] Provider Letteron 04-09-2021 Provider Letter (Inserted Image. Kelsy ble to display) April 09, 2021 SOFIA WIGGINS [address] [place] [address] To Whom It May Concern, Please excuse above patient from work. Date of Illness: From: 04/03 To: 04/09 May Return to Work On:04/10 Sincerely, Family Medicine [place] [address] [place] [address] [facility] CHEST, SPECIAL VIEWS(AMANDAUB/Carlos RODRIGUEZ)on 09-30-2018 CHEST, SPECIAL VIEWS(AMANDAUB/UMAIR) Name: SOFIA WIGGINS STUDY:CHEST, SPECIAL VIEWS(DEBUB/UMAIR); 09/30/2018 7:06 pm INDICATION:Signs/Symptoms : fall off hosre. COMPARISON:None. ORDERING CLINICIAN:JOHNIE WELLINGTON FINDINGS: CARDIOMEDIASTINAL SILHOUETTE:Cardiomediasti nal silhouette is normal in size and configuration. LUNGS:Lungs are clear. BONES:No acute osseous changes. IMPRESSION:1. No evidence of acute cardiopulmonary process.Electronically signed by: ARACELI GONZALEZ MD Normal [facility] CT C-SPINE WO CONTRASTon CT C-SPINE WO [...] sinuses.Electronically signed by: JUAN JASSO MD Normal [facility] CT HEAD WO CONTRASTon 2017 [...] Electronically signed by: JUAN JASSO MD Normal [facility] PELVIS, 1 OR 2 VIEWSon 09-30 PELVIS, 1 OR 2 VIEWS t Name: SOFIA WIGGINS STUDY:PELVIS, 1 OR 2 VIEWS; 09/30/2018 7:06 pm INDICATION:Signs/Symptoms : fall off horse last night. COMPARISON:None. ORDERING CLINICIAN:JOHNIE WELLINGTON FINDINGS:AP pelvis. The osseous structures and soft tissues appear normal. Nofracture or dislocation is noted IMPRESSION:Unremarkable pelvis Electronically signed by: ARACELI GONZALEZ MD Normal [facility] Provider Note - ED v2on 09-03 Protein [...] signs ofdeformity. No edema.Skin: Warm and dryNeuro: vehicle window tinter are grossly intact. No facial asymmetry. Moves [...] be present.Please call if questions. Johnie Wellington, [facility], PGY 3 HISTORY OF [...] a day SIGNIFICANT EVENTS: No documented data. 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 Data Referenced From Triage - ED 09/30/2018 06:[address] [facility] Risk Screen - Adult Emergenc yon 09-30-2018 Risk Screen - Adult Emergency Preferred Language:Preferred Language: Preferred Language for Discussing Health Care (patient/designee)[place] Advanced Directives: Advance Directive Medicalno Advance Directive [...] Learning Preferencesverbal instruction Cultural Considerationsnone Developmental Considerationsnone Catholic Considerationsnone Learning Assessment (Other Learner):Learning Assessment (Other [...] an injured patient at a Trauma Center ([facility]): no Electronic Signatures:Kateryna Troy (RN) (Signed 30-Sep-2018 19:18)Authored: Preferred Language, Advanced Directives, Family Violence Adult,Suicide / Depression, Learning Assessment (Patient), Learning Assessment (OtherLearner), Fall Risk Adult, Pressure Injury, Respiratory / Cough /TB,Smoking/Social History (Required age 13 or older), CAGE Last Updated: 30-Sep-2018 19:18 by Kateryna Troy (RN) Normal [facility] SHOULDER, CMPLT, MIN 2 VIEWS on 09-30-2018 SHOULDER, CMPLT, MIN 2 VIEWS Name: SOFIA WIGGINS STUDY:SHOULDER, CMPLT, MIN 2 VIEWS; 09/30/2018 7:06 pm INDICATION:Signs/Symptoms : fall off horse last night. COMPARISON:None. ORDERING CLINICIAN:JOHNIE WELLINGTON FINDINGS:Right shoulder three views. The osseous structures and soft tissuesappear normal. No fracture or dislocation is noted IMPRESSION:Unremarkable right shoulder Electronically signed by: ARACELI GONZALEZ MD Normal [facility] Triage - EDon 09-30-2018 Triage [...] at time of triage.).Onset of the Complaint: [id number] Date/Time: 30-Sep-2018 18:34Pain Rating (0-10): Rest: 8Vital Signs:Temperature: 97.1F ( 36.2C)Blood Pressure: 132/80 Mean:Heart Rate: 92Respiratory Rate: 18Pulse Oximetry: 97% on room air, no respiratory support. Height: 4 feet 11.00inches. 149.8 CMWeight: 135.0 pounds. Calculated 61.2 kg.Calculated BMI (kg/m2): 27.272 Calculated BSA (m2) 1.60 Cough lasting greater than 3 weeks: noPatient immunocompromised related to: N/ATravel outside of [place]: noAllergies: noLast menstrual period: [id number]: 2 Symptoms Are POSITIVE For:facial pain and [...] 30-Sep-2018 18:38 by Regine Lundberg (KYA) Normal [facility] Vital Signs Date Time Vital Sign Value Performing Clinician Facility 01-13-2024 08:39-0400 Body height 151.1 cm [employer] Work Phone: [facility] 01-13-2024 08:39-0400 Body mass index (BMI) [Ratio] 33.96 kg/m2 [employer] Work Phone: [facility] 01-13-2024 08:39-0400 Body weight 77.56 kg [employer] Work Phone: [facility] 01-13-2024 08:39-0400 Diastolic blood pressure 82 mm[Hg] Tiburcio Crawford DO Work Phone: [facility] 01-13-2024 08:39-0400 Systolic blood pressure 122 mm[Hg] Tiburcio Crawford DO Work Phone: [facility] 12-01-2023 11:00-0500 Body height 125.27 cm Kayley Mo Other [employer] Other 12-01-2023 11:00-0500 Body mass index (BMI) [Ratio] 39.31 kg/m2 Kayley Mo Other [employer] Other 12-01-2023 11:00-0500 Body temperature 101.2 [degF] Kayley Mo Other [employer] Other 12-01-2023 11:00-0500 Body weight 61.69 kg Kayley Mo Other [employer] Other 12-01-2023 11:00-0500 Respiratory rate 18 /min Kayley Mo Other [employer] Other 12-01-2023 11:00-0500 SaO2% (BldA) [Mass fraction] 97 % Kayley Mo Other [employer] Other 09-24-2023 08:48-0500 Body height 149.86 cm DO Shauna Atkinson Work Phone: [facility] 09-24-2023 08:48-0500 Body temperature 97.4 [degF] DO Shauna Atkinson Work Phone: [facility] 09-24-2023 08:48-0500 Body weight 67.13 kg DO Shauna Atkinson Work Phone: [facility] 09-24-2023 08:48-0500 Diastolic blood pressure 56 mm[Hg] DO Shauna Atkinson Work Phone: [facility] 09-24-2023 08:48-0500 Heart rate 99 /min DO Shauna Atkinson Work Phone: [facility] 09-24-2023 08:48-0500 Respiratory rate 18 /min DO Shauna Atkinson Work Phone: [facility] 09-24-2023 08:48-0500 SaO2% (BldA) [Mass fraction] 97 % DO Shauna Atkinson Work Phone: [facility] 09-24-2023 08:48-0500 Systolic blood pressure 119 mm[Hg] DO Shauna Atkinson Work Phone: [facility] 01-09-2023 15:00-0500 Diastolic blood pressure 71 mm[Hg] DO Shauna Atkinson Work Phone: [facility] 01-09-2023 15:00-0500 Heart rate 76 /min DO Shauna Atkinson Work Phone: [facility] 01-09-2023 15:00-0500 Respiratory rate 16 /min DO Shauna Atkinson Work Phone: [facility] 01-09-2023 15:00-0500 SaO2% (BldA) [Mass fraction] 96 % DO Shauna Atkinson Work Phone: [facility] 01-09-2023 15:00-0500 Systolic blood pressure 107 mm[Hg] DO Shauna Atkinson Work Phone: [facility] 01-09-2023 11:40-0500 Body height 149.86 cm DO Shauna Atkinson Work Phone: [facility] 01-09-2023 11:40-0500 Body temperature 97.6 [degF] DO Shauna Atkinson Work Phone: [facility] 01-09-2023 11:40-0500 Body weight 79 kg DO Shuana Atkinson Work Phone: [facility] 10-13-2022 11:52-0500 Body height 149.86 cm DO Shauna Atkinson Work Phone: [facility] 10-13-2022 11:52-0500 Body temperature 98.7 [degF] DO Shauna Atkinson Work Phone: [facility] 10-13-2022 11:52-0500 Body weight 78 kg DO Shauna Atkinson Work Phone: [facility] 10-13-2022 11:52-0500 Diastolic blood pressure 66 mm[Hg] DO Shauna Atkinson Work Phone: [facility] 10-13-2022 11:52-0500 Heart rate 90 /min DO Shauna Atkinson Work Phone: [facility] 10-13-2022 11:52-0500 Respiratory rate 18 /min DO Shauna Atkinson Work Phone: [facility] 10-13-2022 11:52-0500 SaO2% (BldA) [Mass fraction] 96 % DO Shauna Atkinson Work Phone: [facility] 10-13-2022 11:52-0500 Systolic blood pressure 113 mm[Hg] DO Shauna Atkinson Work Phone: [facility] 10-12-2022 16:07-0500 Body height 152.4 cm DO Shauna Atkinson Work Phone: [facility] 10-12-2022 16:07-0500 Body temperature 99.1 [degF] DO Shauna Atkinson Work Phone: [facility] 10-12-2022 16:07-0500 Body weight 78 kg DO Shauna Atkinson Work Phone: [facility] 10-12-2022 16:07-0500 Diastolic blood pressure 67 mm[Hg] DO Shauna Atkinson Work Phone: [facility] 10-12-2022 16:07-0500 Heart rate 87 /min DO Shauna Atkinson Work Phone: [facility] 10-12-2022 16:07-0500 Respiratory rate 16 /min DO Shauna Atkinson Work Phone: [facility] 10-12-2022 16:07-0500 SaO2% (BldA) [Mass fraction] 95 % DO Shauna Atkinson Work Phone: [facility] 10-12-2022 16:07-0500 Systolic blood pressure 127 mm[Hg] DO Shauna Atkinson Work Phone: [facility] 04-10-2022 09:14-0400 Body height 149.86 cm No PCP None [facility] Work Phone: 04-10-2022 09:14-0400 Body mass index (BMI) [Ratio] 34.18 kg/m2 No PCP None [facility]kfybci[facility]egjm [facility] Work Phone: 04-10-2022 09:14-0400 Body surface area Derived from formula 1.72 m2 No PCP None IN[facility]ufovbk[facility]at[facility] Work Phone: 04-10-2022 09:14-0400 Body temperature 97.5 [degF] No PCP None VR[facility]Sbqfpud[facility] n [facility] Work Phone: 04-10-2022 09:14-0400 Body weight 76.77 kg No PCP None JT[facility]Urrgzkx[facility]ts [facility] Work Phone: 04-10-2022 09:14-0400 Diastolic blood pressure 83 mm[Hg] No PCP None ZK[facility]ozutw[facility]Acokw [facility] Work Phone: 04-10-2022 09:14-0400 Heart rate 99 /min No PCP None GB[facility]Axrpspk[facility]Whklu [facility] Work Phone: 04-10-2022 09:14-0400 SaO2% (BldA) [Mass fraction] 98 % No PCP None KD[facility]Tplfrxt[facility]Srvon [facility] Work Phone: 04-10-2022 09:14-0400 Systolic blood pressure 140 mm[Hg] No PCP None CL[facility]dtorzg[facility]Xtawt [facility] Work Phone: 03-27-2022 09:51-0400 Body height 149.86 cm No PCP None BF[facility]Cvaczjc[facility]Agyhf [facility] Work Phone: 03-27-2022 09:51-0400 Body mass index (BMI) [Ratio] 35.16 kg/m2 No PCP None GR[facility]Ukdqvyu[facility]Xvtth [facility] Work Phone: 03-27-2022 09:51-0400 Body surface area Derived from formula 1.74 m2 No PCP None EZ[facility]Holsqrk[facility]Jnkub [facility] Work Phone: 03-27-2022 09:51-0400 Body temperature 97.7 [degF] No PCP None XM[facility]Rpqkrdw[facility]Isuz n [facility] Work Phone: 03-27-2022 09:51-0400 Body weight 78.95 kg No PCP None RH[facility]Eypqmya[facility]Wkrwh [facility] Work Phone: 03-27-2022 09:51-0400 Diastolic blood pressure 83 mm[Hg] No PCP None RC[facility]Ckbdcyp[facility]Wvuiq [facility] Work Phone: 03-27-2022 09:51-0400 Heart rate 78 /min No PCP None WM[facility]Dsyhwoe[facility]Rbuhk [facility] Work Phone: 03-27-2022 09:51-0400 SaO2% (BldA) [Mass fraction] 99 % No PCP None PF[facility]Ldtoali[facility]Pymve [facility] Work Phone: 03-27-2022 09:51-0400 Systolic blood pressure 121 mm[Hg] No PCP None PU[facility]Lmgojpp[facility]Hhfhv [facility] Work Phone: 02-18-2022 15:00-0400 Diastolic blood pressure 63 mm[Hg] Cheng Saldaña [facility] 02-18-2022 15:00-0400 Heart rate 79 /min Cheng Saldaña [facility] 02-18-2022 15:00-0400 Mean blood pressure 79 mm[Hg] Cheng Piotr [facility] 02-18-2022 15:00-0400 SaO2% (BldA) [Mass fraction] 100 % Cheng Piotr [facility] 02-18-2022 15:00-0400 Systolic blood pressure 111 mm[Hg] Cheng Piotr [facility] 02-18-2022 14:00-0400 Diastolic blood pressure 52 mm[Hg] Cheng Piotr [facility] 02-18-2022 14:00-0400 Heart rate 94 /min Cheng Piotr [facility] 02-18-2022 14:00-0400 Mean blood pressure 71 mm[Hg] Cheng Piotr [facility] 02-18-2022 14:00-0400 SaO2% (BldA) [Mass fraction] 94 % Cheng Piotr [facility] 02-18-2022 14:00-0400 Systolic blood pressure 108 mm[Hg] Cheng Piotr [facility] 02-18-2022 13:52-0400 Heart rate 85 /min Cheng Piotr [facility] 02-18-2022 13:52-0400 Respiratory rate 16 /min Cheng Piotr [facility] 02-18-2022 13:52-0400 SaO2% (BldA) [Mass fraction] 98 % Cheng Piotr [facility] 02-18-2022 11:54-0400 Body temperature 98.24 [degF] Cheng Saldaña [facility] 02-18-2022 11:54-0400 Diastolic blood pressure 65 mm[Hg] Cheng Saldaña [facility] 02-18-2022 11:54-0400 Heart rate 102 /min Cheng Saldaña [facility] 02-18-2022 11:54-0400 Systolic blood pressure 118 mm[Hg] Cheng Saldaña [facility] Encounters Encounter Date Encounter Type Care Provider Facility Start: 01-25-2024 Telephone encounter Alicia Ohara RN [facility] Start: 01-20-2024 End: 01-21-2024 ambulatory [facility] Start: 01-19-2024 Orders Only Tiburcio Stuart Crawford DO Work Phone: [facility] Comment on above: Medication managemen t (Primary Dx) Start: 01-13-2024 End: 01-14-2024 ambulatory [facility] Comment on above: Pelvic pain; Dysmenorrhea Start: 01-13-2024 End: 01-13-2024 Encounter for gynecological examination (general) (routine) without abnormal findings Tiburcio Crawford DO Work Phone: [facility] Work Phone: Start: 01-13-2024 End: 01-13-2024 Patient encounter procedure Tiburcio Crawford DO Work Phone: [facility] Start: 01-13-2024 End: 01-13-2024 Periodic preventive med est patient 18-39 yrs Tiburcio Crawford DO Work Phone: [facility] Comment on above: Well woman exam with routine gynecological exam (Primary Dx); Cervical smear, as part of routine gynecological examination; Pelvic pain; Dysmenorrhea Start: 12-01-2023 End: 12-01-2023 ambulatory Kayley Mo Other [employer] Other Start: 12-01-2023 Office outpatient vi sit 25 minutes Kayley Mo [facility] Start: 11-03-2023 End: 11-03-2023 ambulatory Cheng Cruz Other [employer] Other Start: 11-03-2023 Office outpatient vi sit 15 minutes Cheng Cruz [facility] Start: 09-28-2023 End: 09-28-2023 ambulatory Cheng Cruz Other [employer] Other Start: 09-28-2023 Office outpatient ne w 30 minutes Cheng Cruz [facility] Start: 09-24-2023 End: 09-24-2023 Emergency department patient visit Alton Boss Facility:[facility] Start: 09-24-2023 End: 09-24-2023 Emergency department patient visit DO Shauna Atkinson Work Phone: [facility] Work Phone: Start: 02-23-2023 End: 02-23-[address] ISRAEL MISC Facility:[facility] Start: 01-09-2023 End: 01-09-2023 Emergency department patient visit Joseph Wallace Facility:[facility] Start: 01-09-2023 End: 01-09-2023 Emergency department patient visit DO Shauna Atkinson Work Phone: [facility] Work Phone: Start: 01-09-2023 End: 01-09-[address] ISRAEL MISC Facility:[facility] Start: 01-05-2023 End: 01-05-[address] ISRAEL MISC Facility:[facility] Start: 12-05-2022 End: 12-05-[address] ISRAEL MISC Facility:[facility] Start: 10-13-2022 End: 10-13-2022 Emergency department patient visit DO Shauna Atkinson Work Phone: [facility] Start: 10-12-2022 End: 10-12-2022 Emergency department patient visit DO Shauna Atkinson Work Phone: [facility] Start: 10-11-2022 End: 10-11-[address] GIOVANA GILMORE Facility:[facility] Start: 05-03-2022 Chart Update No PCP None [facility]: Start: 04-29-2022 AUDIT No PCP None [facility] Work Phone: Start: 04-10-2022 FUV, Provider: Juan Taylor, Status: Pen, Time: 9:00 AM No PCP None [facility] [place] Work Phone: Start: 04-10-2022 Office outpatient vi sit 15 minutes No PCP None VZ-Fbuvudx-Bsjav [place] Work Phone: Start: 04-09-2022 Chart Update No PCP None [facility] [place] Work Phone: Start: 03-27-2022 Office outpatient ne w 30 minutes No PCP None [facility] Work Phone: Start: 02-18-2022 End: 02-18-2022 Emergency department patient visit Cheng Saldaña [facility] Start: 09-30-2018 Emergency dept visit high severity&threat funcj JAGDISH ARGUELLO [facility] Start: 09-30-2018 End: 09-30-2018 Patient [...] Td Vaccines (2 - Td or Tdap) [facility] Start: 01-12-2027 Screening for malign ant neoplasm of cervix Pap Smear [facility] Start: 01-12-2025 Adult BMI Screening Adult BMI Screen ing [facility] Start: 01-12-2025 Depression Screening Depression Scre ening [facility] Start: 01-12-2025 Tobacco Screening Tobacco Screening [facility] Start: 01-20-2024 End: 01-20-2024 Patient encounter procedure 01/20/2024 8:00 AM EDT Appointment [facility] Ultrasound [address] [place] [address] Tiburcio Crawford, DO [address] [place] [address] [facility] - Ultrasound Start: 01-20-2024 Subsequent hospital visit by physician 01/20/2024 8:00 AM EDT Hospital Encounter [facility] - Ultrasound [address] [place] [address] Tiburcio Crawford, [place] [facility] [place] [address] [facility] Start: 01-13-2024 End: 01-12-2025 Cytopathology procedure, preparation of smear, genital source Pap Smear Pathology and Cytology Routine Cervical smear, as part of routine gynecological examination Expected: 01/13/2024 (Approximate), Expires: 01/12/2025 [facility] Work Phone: Comment on above: Expected: 01/13/2024 (Approximate), Expires: 01/12/2025 Start: 01-13-2024 End: 01-12-2025 US Pelvis transabdominal and transvaginal Ultrasound pelvic with transvaginal Imaging Routine Pelvic pain Expected: 01/13/2024, Expires: 01/12/2025 [facility] Comment on above: Expected: 01/13/2024 , Expires: 01/12/2025 Start: 12-10-2023 Adult BMI Follow Up Plan Adult BMI Follow Up Plan [facility] Start: 07-03-2023 COVID-19 Vaccine () COVID-19 Vaccine () [facility] Start: 07-03-2023 Influenza vaccination Influenza Vacc ine [facility] Start: 10-12-2022 [facility] Start: 05-08-2022 POV, Provider: Juan Taylor, Status: Pen, Time: 10:00 AM POV, Provider: Juan Taylor, Status: Pen, Time: 10:00 AM [facility] Work Phone: Start: 04-10-2022 FUV, Provider: Juan Taylor, Status: Pen, Time: 9:00 AM [facility] Work Phone: Start: 2019 Screening for malign ant neoplasm of cervix Pap Smear [facility] Start: 1998 Tobacco Counseling Tobacco Counselin g [facility] Alanine aminotransfe rase [Enzymatic activity/volume] in Serum or Plasma by No addition of P-5'-P [facility] Work Phone: Albumin [Mass/volume ] in Serum or Plasma [facility] Work Phone: Albumin/Globulin ratio [facility] Work Phone: Alkaline phosphatase [Enzymatic activity/volume] in Serum or Plasma [facility] Work Phone: Anion gap measurement [facility] Work Phone: Aspartate aminotrans ferase [Enzymatic activity/volume] in Serum or Plasma [facility] Work Phone: Basophils [#/volume] in Blood by Automated count [facility] Work Phone: Basophils/100 leukoc ytes in Blood by Automated count [facility] Work Phone: Bilirubin.total [Mass/volume] in Serum or Plasma [facility] Work Phone: Calcium [Mass/volume ] in Serum or Plasma [facility] Work Phone: Carbon dioxide, tota l [Moles/volume] in Serum or Plasma [facility] Work Phone: End: 01-18-2025 CBC W Auto Differential panel - Blood CBC auto differential Lab Routine Medication management 1 Occurrences starting 01/19/2024 until 01/18/2025 [employer] Work Phone: Comment on above: 1 Occurrences starti ng 01/19/2024 until 01/18/2025 Chloride [Moles/volu me] in Serum or Plasma [facility] Work Phone: End: 01-18-2025 Comprehensive metabolic 2000 panel - Serum or Plasma Comprehensive metabolic panel Lab Routine Medication management 1 Occurrences starting 01/19/2024 until 01/18/2025 Incont Comment on above: 1 Occurrences starti ng 01/19/2024 until 01/18/2025 Creatinine and Glome rular filtration rate.predicted panel - Serum, Plasma or Blood [facility] Work Phone: Eosinophils [#/volum e] in Blood [facility] Work Phone: Eosinophils/100 leuk ocytes in Blood by Automated count [facility] Work Phone: Erythrocyte distribu tion width [Ratio] by Automated count [facility] Work Phone: Erythrocytes [#/volu me] in Blood [facility] Work Phone: Globulin [Mass/volum e] in Serum [facility] Work Phone: Glucose [Mass/volume ] in Serum or Plasma [facility] Work Phone: Hematocrit [Volume Fraction] of Blood [facility] Work Phone: Hemoglobin [Mass/vol ume] in Blood [facility] Work Phone: Leukocytes [#/volume ] corrected for nucleated erythrocytes in Blood by Automated coun [facility] Work Phone: Leukocytes [#/volume ] in Blood [facility] Work Phone: Lymphocytes [#/volum e] in Blood by Automated count [facility] Work Phone: Lymphocytes/100 leuk ocytes in Blood by Automated count [facility] Work Phone: MCH [Entitic mass] b y Automated count [facility] Work Phone: MCHC [Mass/volume] b y Automated count [facility] Work Phone: MCV [Entitic volume] by Automated count [facility] Work Phone: Measurement of renal function [facility] Work Phone: Monocytes [#/volume] in Blood by Automated count [facility] Work Phone: Monocytes/100 leukoc ytes in Blood by Automated count [facility] Work Phone: Neutrophils [#/volum e] in Blood by Automated count [facility] Work Phone: Neutrophils/100 leuk ocytes in Blood by Automated count [facility] Work Phone: Nucleated erythrocyt es [Presence] in Blood by Automated count [facility] Work Phone: Patient Education [facility] Work Phone: Patient referral [facility] Work Phone: Platelet mean volume [Entitic volume] in Blood by Automated count [facility] Work Phone: Platelets [#/volume] in Blood [facility] Work Phone: Potassium [Moles/vol ume] in Serum or Plasma [facility] Work Phone: Protein [Mass/volume ] in Serum or Plasma [facility] Work Phone: Sodium [Moles/volume ] in Serum or Plasma [facility] Work Phone: Urea nitrogen [Mass/volume] in Serum or Plasma [facility] Work Phone: Payers Date Payer Category Payer Self-pay [id number] 2022 Medicaid [employer] HMO [id number] 2022-Present [phone] [address] [place] [address] [id number] 1998 Unknown [id number] 1998 Unknown [id number] 1998 Unknown [id number] 1998 Unknown [id number] 1998 Unknown [id number] [id number] 1998 Unknown [id number] [id number] 1998 Unknown [id number] [id number] 1998 Unknown [id number] [id number] 1998 Unknown [id number] [id number] 1961 Medicaid [id number] 1961 Medicaid [id number] Medicaid [id number] Medicaid [id number] Unknown [employer] Unknown O [id number] Unknown [id number] Unknown [id number] Unknown [id number] Social History Date Type Detail Facility Start: 02-18-2022 Tobacco smoking status Heavy t obacco smoker (finding) [facility] Start: 04-14-2019 End: 01-13-2024 Sex Assigned At Female [facility] Start: 10-12-2022 End: 09-24-2023 Tobacco smoking status NHIS Smoker (finding) [facility] Start: 1998 Sex Assigned At Female [facility] Start: 12-10-2022 Tobacco smoking stat us DCIS Smokes tobacco daily [facility] History of tobacco use Cigarette Smoker P [facility] Start: 12-10-2022 End: 01-13-2024 Cigarettes smoked current (pack per day) - Reported 0.3 [facility] Start: 12-10-2022 Tobacco use and exposure Smokeless tobacco non-user [facility] Start: 01-13-2024 Alcohol intake Ex-drinker (finding) [facility] Adolescent depressio n screening assessment 5 [facility] Start: 12-10-2022 Alcohol Comment social [facility] Start: 12-23-2022 Gender identity Identifies as female gender (finding) [facility] Start: 12-23-2022 Sexual orientation Heterosexual (umesh landrum) [facility] Clinical Notes 11-03-2021 to 01-25-2024 Telephone Encounter [...] needs. KYA Reyes documented in this encounter [facility] 01-25-2024 Telephone encount er Note Patient called to inquire if we had the results from her ultrasound. She is advised that the ultrasound was normal. She is advised to call if further needs. KYA Reyes [facility] 01-19-2024 History of Presen t illness Narrative CBC and CMP ordered per insurance request to refill her ibuprofen documented in this encounter [facility] 01-13-2024 Miscellaneous Notes Formattin g of this note might be different from the original. Patient will need a CBC and a CMP to check her blood counts and her liver/kidney function unknown need to continue the ibuprofen. documented in this encounter [facility] 01-13-2024 Telephone encount er Note Patient will need a CBC and a CMP to check her blood counts and her liver/kidney function unknown need to continue the ibuprofen. [facility] [facility] 01-13-2024 History of Presen t illness Narrative [...] like to pursue. 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 Excision right chest cyst 5x2 cm 2. Complex closure 5cm 3. 4. 5. Surgeon: Claudia Resident/Fellow/Other Cigarette Maker: Geraldine Anesthesia: General, 0.5% marciane Estimated Blood Loss (mL): 3cc Specimen: yes. right skin cyst Findings: sebaceous cyst removed without visible pus Patient Returned To/Condition: To RR in sat cond Attestation: Note Completion: Attending AttestationI was present for the entire procedure Electronic Signatures: Juan Taylor) (Signed 25-Apr-2022 10:40) Authored: Post Operative Note, Note Completion Last Updated: 25-Apr-2022 10:40 by Juan Taylor)[facility] 04-25-2022 NoteHistory & Physical Reviewed: /Lactating: [...] the note. I personally evaluated the patient [id number] Electronic Signatures: Sascha Chandler (Resident)) (Signed 25-Apr-2022 08:43) Authored: History & Physical Reviewed, ERAS, Consent, Note Completion Juan Taylor) (Signed 05-May-2022 13:45) Authored: Note Completion Co-Signer: History & Physical Reviewed, ERAS, Consent, Note Completion Last Updated: 05-May-2022 13:45 by Juan Taylor) References: 1. Data Referenced From Patient Profile - Preop v3 25-Apr-2022 08:07[facility]04-19-2022 Hospital Discharge instructions Patient Education 02/18/2022 14:56:49 Epidermal Cyst, Dcbz-iq-Vyei Epidermal Cyst An epidermal cyst is a [...] yourself. Follow these instructions at home: Take ewti-ycp-kazoghm and prescription medicines only as told by [...] the cyst, or to remove it. Take uvtw-sly-eopelkq and prescription medicines only as told by [...] 11/26/2005 Document Revised: 02/09/2020 Document Reviewed: 07/28/2019 [employer] Patient Education 2020 [email or web address]. Follow Up Care 02/18/2022 11:50:54 With:Sara MCGRATH, Ernesto Brooks, FREEMAN Address: When:02/21/2022 [facility]04-19-2022 Evaluation + Plan noteExtracted from: Title:ED Note [...] Views [facility]01-02-2022 History of Present illness Narrative* Sofia Wiggins is a 21 year old female presenting to the breast center with a chronic right chest skin abscess that she would like excised. She has been receiving care at [facility]. 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 Diagnosed at age 50. * Maternal grandfather with lung and liver cancer [facility] Work Phone: [phone] History of Present illness Narrative* Sofia Wiggins is a 21 year old female presenting to the breast center with a chronic right chest skin abscess that she would like excised. She has been receiving care at [facility]. 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 Diagnosed at age 50. * Maternal grandfather with lung and liver cancer [facility] Work Phone: Evaluation noteNo assessment information available [facility] Work Phone: Evaluation note* Diagnosis Well woman exam with routine gynecological exam- Primary Routine gynecological examination Cervical smear, as part of routine gynecological examination Screening for malignant neoplasm of the cervix Pelvic pain Dysmenorrhea [facility] Medication management- Primary [facility] Diagnosis Pelvic pain Dysmenorrhea [facility] - [facility]* Type Description Date Medical History None Surgical History Tonsils Surgical History [place] [facility] Other History general Narrative - Reported* Type Description Date Medical History None Surgical History Tonsils Surgical History [place] [facility] Surgical History C section Hospitalization History See Above [facility] Other Hospital course Narrative No data available for this section [facility] Additional Instructions Take liez-oxt-kadzppw cough and cold medication as needed for symptoms May take the Zofran every 8 hours as needed Use your albuterol inhaler every 4 hours as needed for wheezing cough shortness of breath Increase oral fluids Follow-up with family doctor as needed Return to the ER for significant respiratory distress chest pain vomiting or any [facility] Work [facility]: Hospital Discharge instructions Additional Instructions If your symptoms return/worsen or you develop any further concerns or symptoms please see your doctor or return to the emergency department immediately.[facility] Work Phone: Hospital Discharge instructions Additional Instructions Continue your Tylenol and ibuprofen at home Follow-up with your orthopedic physician Return if symptoms are [facility] Work Phone: InstructionsNot on [...] section and content) DATE CREATED AUTHOR 10/11/2018 [facility] DATE CREATED AUTHOR AUTHOR'S ORGANIZ ATION 02/19/2022 [facility] DATE CREATED AUTHOR AUTHOR'S ORGANIZ ATION 05/05/2022 [facility] DATE CREATED AUTHOR AUTHOR'S ORGANIZ ATION 05/12/2022 [employer] DATE CREATED AUTHOR AUTHOR'S ORGANIZ ATION 02/25/2023 [facility] DATE CREATED AUTHOR AUTHOR'S ORGANIZ ATION 12/03/2023 [facility] DATE CREATED AUTHOR AUTHOR'S ORGANIZ ATION 12/11/2023 [facility] DATE CREATED AUTHOR AUTHOR'S ORGANIZ ATION 01/14/2024 [facility] DATE CREATED AUTHOR AUTHOR'S ORGANIZ ATION 01/28/2024 [facility] Care Teams (unrecognized sec tion and content) Team Status: Inactive Member Role Status Dates Shauna Atkinson , Primary Care Provider Active Martinez Kumar , DO Emergency Provider Active Team Status: Active Member Role Status Dates Shauna Atkinson , Primary Care Provider Active Team Status: Inactive Member Role Status Dates Shauna Atkinson , Primary Care Provider Active Payton Hernández , [facility] Emergency Provider Active Team Status: Inactive Member Role Status Dates Shauna Atkinson , Primary Care Provider Active Joseph Wallace , Emergency Provider Active Team Status: Inactive Member Role Status Dates Shauna Atkinson , Primary Care Provider Active Alton Boss MD Emergency Provider Active [employer] 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 Relationship Specialty Start Date End Date Shauna Atkinson DO [address] [place] [id number] PCP - General Family Medicine 12/15/22 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 Relationship Specialty Start Date End Date Shauna Atkinson DO [address] [place] [id number] PCP - General Family Medicine 12/15/22 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 Relationship Specialty Start Date End Date Shauna Atkinson DO [address] [place] [id number] PCP - General Family Medicine 12/15/22 Dynamic 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 Relationship Specialty Start Date End Date Shauna Atkinson DO [address] [place] [id number] PCP - General Family Medicine 12/15/22 Goals (unrecognized section and content) Goals may be documented in a n alternate section REASON FOR VISIT (unrecogniz ed section and content) Reason Comments Annual Exam Pt is here for annua l exam. Last pap was several years at [place]. Pt is due for pap. Gynecologic Exam [...] BE BASED ON THE PRIMARY CLINICAL RECORDS. [employer] provides no warranty or guarantee of the accuracy or completeness of information in this document.
--- NOTE | 2024-10-24 08:37 | ED_ITS ---
HPI HPI - General Adult General Chief complaint: Upper Respiratory Infection Stated complaint: URTI COMPLAINTS Time Seen by Provider: 10/24/24 08:10 Source: patient Mode of arrival: walk-in Limitations: no limitations History of Present Illness HPI narrative: Patient is a 23-year-old female who is presenting to the ER with chief complaint of flulike symptoms that restarted yesterday around 3 PM. Patient was just tested positive for COVID earlier last week. Patient was a return to work on October 21, she was given 6 days off of work. Patient was to go back to work today. Patient started feeling better yesterday with, eating and drinking with no difficulties. Then around 3 PM yesterday patient developed myalgia, arthralgia, cough and congestion. Patient is having productive y ellowish/greenish sputum. Patient is a smoker, she has not smoked in 2 days. 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 Patient stated that all of the residents were wearing mask, there is a GI bug that is going through the facility. Patient's boyfriend had GI symptoms as well, patient has had nausea but no vomiting or diarrhea yesterday or today. No rash. No recent traveling. Patient is having bilateral lower back pain, muscle pain and joint pain. Mild ear congestion, mild sinus pressure, sore throat. All systems are negative except as noted/marked. All systems reviewed and otherwise negative. Nurses note and vital signs reviewed and patient is not hypoxic. General: The patient appears well and in no apparent distress. Patient is resting comfortably on cart. Patient is not toxic, lethargic, or listless Skin: Warm, dry, no pallor noted. There is no rash noted. No petechiae, purpura. Head: Normocephalic, atraumatic; no significant sinus pressure to bilateral frontal or maxillary sinuses. Eye: Normal conjunctiva, no drainage, EOMI. PERRL Ears, Nose, Mouth, and Throat: oral mucosa is moist. Patient has beefy red posterior pharynx with cobblestoning, clear sinus drainage noted, no unilateral swelling, no exudate, no petechiae. Patient is swallowing, no trismus. No signs of Marcos angina. Nares patent. Mouth without vesicles. Cardiovascular: Regular Rate and Rhythm, no murmur, gallop, rub Respiratory: Patient is in no distress, no accessory muscle use, lungs are clear to auscultation, no wheezing, rales or rhonchi Back: Mild to moderate bilateral paralumbar soft tissue tenderness to palpation, no flank pain bilateral, the rest of her back is non-tender, no true CVA tenderness bilaterally to percussion. No CT LS midline pain GI: Soft, no tenderness to palpation, no masses appreciated. No rebound, guarding, or rigidity noted. No distention Musculoskeletal: Patient has full range of motion of all of the extremities, no motor, sensory, or focal neurological deficits Neurological: A&O x4, normal speech Psychiatric: Cooperative Related Data Home Medications ?Medication ?Instructions ?Recorded ?Confirmed albuterol sulfate 90 mcg/actuation 2 puff inhalation Q6H PRN 07/24/24 10/24/24 aerosol inhaler shortness of breath or wheezing escitalopram oxalate 10 mg tablet 10 mg PO DAILY 07/24/24 10/24/24 hydroxyzine pamoate 25 mg capsule 25 mg PO BID PRN insomnia 07/24/24 10/24/24 pregabalin 75 mg capsule 75 mg PO BID 07/24/24 10/24/24 escitalopram oxalate 20 mg tablet 20 mg PO DAILY 10/16/24 10/16/24 (Lexapro) phentermine 37.5 mg capsule 37.5 mg PO DAILY 10/16/24 10/24/24 ondansetron 4 mg disintegrating 4 mg PO PRN 10/24/24 10/24/24 tablet Previous Rx's ?Medication ?Instructions ?Recorded promethazine 25 mg tablet 25 mg PO TID PRN nausea and 10/16/24 vomiting #14 tabs xutyuxycvbkbpbm-vbfocfkcjjlxszp-WE 10 ml PO Q6H PRN cold symptoms 10/24/24 2 mg-30 mg-10 mg/5 mL oral syrup #200 mL (Bromfed DM) ondansetron 4 mg disintegrating 4 mg PO Q4H PRN nausea and 10/24/24 tablet vomiting 3 days #6 tabs oseltamivir 75 mg capsule (Tamiflu) 75 mg PO DAILY 5 days #5 caps 10/24/24 Allergies Allergy/AdvReac Type Severity Reaction Status Date / Time ketorolac (From Toradol) Allergy Severe Hives Verified 10/24/24 08:13 Penicillins Allergy Severe Hives Verified 10/24/24 08:13 tramadol Allergy Severe Hives Verified 10/24/24 08:13 Opioid HPI Opioid Management Most Recent Opioid Data: Last Pain Scale 8 10/24/24 08:51 10/24/24 Last MAR Pain Assessment 10/24/24 08:51 PFSH PFS Social History Smoking status: Current every day smoker Little interest or pleasure in doing things: not at all Feeling down, depressed, or hopeless: not at all Exam Constitutional Vital Signs, click to edit/add: Last Vital Signs Temp 100.9 F H 10/24/24 10:16 Pulse 104 H 10/24/24 10:16 Resp 20 10/24/24 10:16 BP 120/67 10/24/24 10:16 Pulse Ox 98 10/24/24 10:16 O2 Del Method Room Air 10/24/24 10:16 Course Vital Signs Vital signs: Vital Signs Temperature 101 F H 10/24/24 08:13 Pulse Rate 115 H 10/24/24 08:13 Respiratory Rate 20 10/24/24 08:13 Blood Pressure 118/77 10/24/24 08:13 Pulse Oximetry 97 10/24/24 08:13 Oxygen Delivery Method Room Air 10/24/24 08:13 Temperature 100.9 F H 10/24/24 10:16 Pulse Rate 104 H 10/24/24 10:16 Respiratory Rate 20 10/24/24 10:16 Blood Pressure 120/67 10/24/24 10:16 Pulse Oximetry 98 10/24/24 10:16 Oxygen Delivery Method Room Air 10/24/24 10:[address] [facility] Narrative Medical decision making narrative: Patient did have COVID approximately 7 to 9 days ago, patient was symptom-free yesterday then developed myalgia and arthralgia around 3 PM last night with fever. Patient had retesting of COVID, influenza, urine. Patient given Tylenol, chest x-ray and Zofran. Patient was due to go back to work today. Patient's COVID was positive, this could be lingering from COVID-positive diagnosis last week or possibly she got it again. Influenza A was positive, and this makes sense that all of her systemic complaints. Patient was placed on Tamiflu. Patient had multiple medications and ucrf-wqa-sfvnpzw that she could take and education was done at bedside and all different medication she can help take for her sinus symptoms, myalgia, arthralgias, and to help her symptoms and fever and body pains. Patient was given work note. Patient was sent home a prescription for Zofran to use if needed. Patient will follow-up with PCP, work note given. No question at discharge Lab Data Labs: Lab Results 10/24/24 10/24/24 Range/Units 08:35 08:40 Urine Color Yellow (YELLOW) Urine Clarity Clear (CLEAR) Urine pH 6.0 (5.0-9.0) Ur Specific Wright 1.025 (1.005-1.025) Urine Protein Negative (NEG/TRACE) mg/dL Urine Glucose (UA) Negative (NEGATIVE) mg/dL Urine Ketones Negative (NEGATIVE) mg/dL Urine Occult Blood Moderate A (NEGATIVE) Urine Nitrite Negative (NEGATIVE) Urine Bilirubin Negative (NEGATIVE) Urine Urobilinogen 0.2 (0.2-1.0) EU/dL Ur Leukocyte Esterase Negative (NEGATIVE) Urine RBC 10-20 A (0-2) #/HPF Urine WBC 0-2 A (NONE SEEN) #/HPF Ur Squamous Epith Cells Moderate A (NONE/RARE) #/LPF Urine Crystals None seen (None Seen) #/HPF Urine Bacteria Trace A (NONE SEEN) #/HPF Urine Casts None seen (NONE SEEN) #/LPF Urine Mucus Trace A (NONE SEEN) Ur Culture Indicated? No Urine HCG, Qual Negative (NEGATIVE) Influenza Type A Ag Positive A Influenza Type B Ag Negative SARS-CoV-2 Ag (CV2AG) Positive A (NEGATIVE) Discharge Plan Discharge Stand Alone Forms: Work/School Release Chief Complaint: Upper Respiratory Infection Clinical Impression: Febrile illness, Myalgia, Arthralgia, Nausea, URI (upper respiratory infection), Flu-like symptoms, COVID-19, Influenza A Patient Disposition: Home, Self-Care Time of Disposition Decision: 10:01 Condition: Fair Prescriptions / Home Meds: New xleyzjijrypdldg-htticarpz-DJ [Bromfed DM] 2-30-10 mg/5 mL syrup 10 ml PO Q6H PRN (Reason: cold symptoms) Qty: 200 0RF ondansetron 4 mg tablet,disintegrating 4 mg PO Q4H PRN (Reason: nausea and vomiting) 3 Days Qty: 6 0RF oseltamivir [Tamiflu] 75 mg capsule 75 mg PO DAILY 5 Days Qty: 5 0RF No Action albuterol sulfate 90 mcg/actuation HFA aerosol inhaler 2 puff INHALATION Q6H PRN (Reason: shortness of breath or wheezing) escitalopram oxalate 10 mg tablet 10 mg PO DAILY pregabalin 75 mg capsule 75 mg PO BID hydroxyzine pamoate 25 mg capsule 25 mg PO BID PRN (Reason: insomnia) phentermine 37.5 mg capsule 37.5 mg PO DAILY Rx Instructions: must administer 30 minutes before or 1-2 hours after breakfast escitalopram oxalate [Lexapro] 20 mg tablet 20 mg PO DAILY promethazine 25 mg tablet 25 mg PO TID PRN (Reason: nausea and vomiting) Qty: 14 0RF ondansetron 4 mg tablet,disintegrating 4 mg PO PRN Print Language: Greek Instructions: Fever in Adults (ED), Influenza (ED), Upper Respiratory Infection (ED), Musculoskeletal Pain (ED), Arthralgia (ED), COVID-19 (Coronavirus Disease 2019) (ED) Additional Instructions: Alternate Tylenol and either Motrin, Advil, or ibuprofen every 4 hours to help with pain. Maximum dose of Tylenol is 3000 mg a day. Maximum dose of either Motrin, Advil, or ibuprofen is 2400 mg a day. Increase fluids at home, Gatorade, Powerade, or water. Alternate using DayQuil, NyQuil, and Flonase. Add Mucinex as well as needed. Alternate Tylenol and Motrin every 4 hours to help with fever control, body aches or joint pain. Use tvrp-lbv-fovfnld vitamin C, vitamin D3, and zinc to help fight infection and help with her immune system. Referrals: VIKTORIYA BARRETT [Primary Care Provider] - 1 week Discharge Date/Time: 10/24/24 10:16
[2024-10-24] MEDS: ACETAMINOPHEN 325 MG TABLET 650 MG PO (08:51)
[2024-10-24] MEDS: ONDANSETRON 4 MG RAPDIS TABLET SL (08:51)
[2024-10-24 09:03] LABS: Influenza Virus A Antigen Positive; Influenza Virus B Antigen Negative
[2024-10-24 09:04] LABS: Internal Control Within Normal Limits
[2024-10-24 09:05] LABS: Internal Control Within Normal Limits; SARS-CoV-2 Ag POSITIVE (NEGATIVE)
[2024-10-24 09:16] LABS: Bilirubin Urine NEGATIVE (NEGATIVE); Blood Urine MODERATE (NEGATIVE); Clarity Urine CLEAR (CLEAR); Color Urine YELLOW (YELLOW); Glucose Urine UA NEGATIVE (NEGATIVE); Ketones Urine NEGATIVE (NEGATIVE); Leukocyte Esterase Urine NEGATIVE (NEGATIVE); Nitrite Urine NEGATIVE (NEGATIVE); Protein Urine NEGATIVE (NEG/TRACE); Specific Gravity Urine 1.025 (1.005-1.025); Urobilinogen Urine 0.2 EU/dL (0.2-1.0)
[2024-10-24 09:18] LABS: HCG Qualitative Urine* NEGATIVE (NEGATIVE); Internal Control Within Normal Limits
[2024-10-24 09:23] LABS: Bacteria Urine TRACE #/HPF (NONE SEEN); Cast Seen? NONE SEEN #/LPF (NONE SEEN); Crystals Seen? None Seen #/HPF (None Seen); Mucus Urine TRACE (NONE SEEN); Squamous Epithelial Cell Urine MODERATE #/LPF (NONE/RARE); Urine Culture Indicated NO; WBC Urine 0-2 #/HPF (NONE SEEN)
[2024-10-24 10:16] VITALS: BP 120/67; PULSE 104; TEMP 38.3; O2SAT 98
== END 2024-10-24 10:16 | disposition home or self-care (01) ==
PROVIDERS: Emergency Provider Emergency Medicine; PCP Nurse Practitioner Family
DX: U07.1 COVID-19 (principal); J10.1 Influenza due to other identified influenza virus with other respiratory manifestations; F17.200 Nicotine dependence, unspecified, uncomplicated; R50.9 Fever, unspecified; M79.10 Myalgia, unspecified site; M25.50 Pain in unspecified joint; R11.10 Vomiting, unspecified
CPT/HCPCS: 71046; 81001; 84703; 87804; 87811; 99284; Q0162

== ENCOUNTER 2025-03-26 16:14 | Emergency (ER) | payer OTHER, SELFPAY ==
--- OUTSIDE RECORDS SUMMARY | 2024-12-28 04:30 | XMS_ITS ---
Author Organization The [facility] in [place] Address [address] [place] [address] Care Team Providers Care Political Director Name Role Phone Terri Valdezela Primary Care Provider [phone] Allergies Allergen (clinical drug ingredient) Drug/Non Drug Allergy documented on EMR Reaction Allergy Type Onset Date Status ketorolac Ketorolac hives Drug Allergy Active tramadol Tramadol hives Drug Allergy Active Penicillin hives Drug Allergy Active REASON FOR VISIT Presents to office alone for 6 month med check, CSA signed Medications Medication SIG (Take, Route, Frequency, Duration) Notes Start Date End Date Status Lyrica 75 MG 1 capsule Orally BID for 30 days 12/19/2024 Active Ondansetron HCl 4 MG 1 tablet Orally BID prn for 7 days 08/01/2024 Active Vistaril 25 MG 1 capsule Orally BID PRN for 30 days 06/24/2024 Active Adipex-P 37.5 MG 1 tablet before derrick kfast Orally Once a day for 30 days 12/28/2024 Active Albuterol Sulfate HFA 108 (90 Base) MCG/ACT 1 puff as needed Inhalation every 4 hrs 08/01/2024 Active Social History Tobacco Use: Social History Observation Description Date Details (start date - stop date) Current Smoker NA - NA Tobacco Control (Standard) Question Answer Notes Tobacco use: Current smoker How often do you smoke cigarettes? Every day How many cigarettes a day do you smoke? 09-21 AUDIT-C (Standard) Question Answer Notes Did you have a drink containing alcohol in the p ast year? No Points 0 Interpretation Negative Vital Signs Blood pressure systolic 98 mm Hg 12/28/19 25 Blood pressure diastolic 54 mm Hg 025 Height 58 in 12/28/2024 Weight 155.2 lbs 12/28/2024 BMI 32.43 kg/m2 12/28/2024 Encounters Encounter Location Date Provider Diagnosis [facility] [address] [facility] [place] [address] 12/28/2024 Cecilia Valdez Class 1 obesity E66.9 Assessments Encounter Date Diagnosis (ICD Code) Assessment Notes Treatment Notes Treatment Clinical Notes Section Notes 12/28/2024 Class 1 obesity (ICD-10 - E66.9) discussed diet, whole foods, increase protein Plan Of Treatment Medication Medication Name Sig Start Date Stop Date Notes Adipex-P 37.5 MG 1 tablet before derrick kfast Orally Once a day for 30 days 12/28/2024 Treatment Notes Assessment Notes Class 1 obesity discussed diet, whol e foods, increase protein Next Appt Details Follow Up: prn, Reason: Progress Notes * JULIANACarmenOB:[birth year] (24 yo F)Acc No.[id number]:12/28/2024 Progress Note Patient: Sofia COOPER Provider: Bernadette Valdez ([facility]), STEAM SHOVEL OILER :2000 A ge:24 Y S ex:Female Date:12/28/2024 Address:[address] [place] [address] [address], [facility] Check In:08:29 AM ESTCheck O ut:08:40 AM EST Subjective: * Chief Complaints: * 1 . Presents to office alone for 6 month med check. 2. CSA signed. * HPI: G eneral: Taking Adipex, no concerns down 9 lbs stopped lexapro thinks giving her a reccurring nightmare vistaril prn. * ROS: G eneral/Constitutional: Anxiety o k, using vistaril prn. F ever d enies.?Headache d enies. W eight loss a dmits, is intentional. O phthalmologic: Discharge d enies. E ye Pain d enies. I tching and redness d enies. E NT: Nasal discharge d enies. N akiko congestion d enies.?Sore throat d enies. C ardiovascular: Chest tightness/ heavy pressure d enies. R apid heart rate d enies. S welling of extremities d enies. C hest pain d enies. ? R espiratory: Productive cough d enies. C hest pain d enies. C ough d enies. S hortness of breath d enies. W heezing d enies. ? G astrointestinal: Abdominal pain d enies. C onstipation d enies. D ecreased appetite d enies. D iarrhea d enies. N ausea d enies. V omiting?denies. G enitourinary: Urinary incontinence d enies. P ainful urination d enies. M usculoskeletal: Back pain d enies. N harley pain d enies. M uscle aches d enies. S kin: Rash d enies. S kin lesion(s) d enies. ? * Active Problem List F41.8 Anxiety and depressi on Modified On:06/24/2024W/U Status:confirmed E66.9 Class 1 obesity Modified On:09/27/2024W/U Status:confirmed * Medical History: A nxiety, Depression. * Surgical History: w isdom teeth removed , tonsils removed , c section . * Family History: F ather: alive. M other: alive, bipolar, diagnosed with Other malignant neoplasm of unspecified site, Diabetes mellitus without mention of complication, type II or unspecified type, not stated as uncontrolled, Unspecified essential hypertension. M aternal Grandmother: , paranoid schizo. 2 brother(s) , 1 sister(s) . . * Social History: T obacco Use: T obacco Control (Standard) T obacco use: C urrent smoker H ow often do you smoke cigarettes? E very day H ow many cigarettes a day do you smoke? 1 1-20 D rug/Alcohol: A CHERI-C (Standard) D id you have a drink containing alcohol in the past year? N o P oints 0 I nterpretation N egative * Medications: T aking Adipex-P(Phentermine HCl) 37.5 MG Tablet 1 tablet before breakfast Orally Once a day , Taking Albuterol Sulfate HFA 108 (90 Base) MCG/ACT Aerosol Solution 1 puff as needed Inhalation every 4 hrs , Taking Lyrica(Pregabalin) 75 MG Capsule 1 capsule Orally BID , Taking Ondansetron HCl 4 MG Tablet 1 tablet Orally BID prn , Taking Vistaril 25 MG Capsule 1 capsule Orally BID PRN , Discontinued Lexapro(Escitalopram Oxalate) 20 MG Tablet 1 tablet Orally Once a day , Notes: take 1/2 tablet po daily for first week than increase dose to one tablet po daily, Medication List reviewed and reconciled with the patient * Allergies: K etorolac: hives, Penicillin: hives, Tramadol: hives. Objective: * Vitals: W t:155.2lbs, Ht: 58 in, BP:98/54mm Hg, BMI:32.43Index, Ht-cm: 147.32 cm, Wt-k.4 kg. * Examination: G eneral Examinations: GENERAL APPEARANCE: a lert and oriented, in no acute distress, obese. EYES: c onjunctiva normal, sclera non-icteric. NOSE: n ormal external appearance. LUNGS: c lear to auscultation bilaterally. CARDIO: r egular rate and rhythm, S1, S2 normal. MUSCULOSKELETAL: G ait and station normal. SKIN: w arm and dry. Assessment: * Assessment: 1. C lass 1 obesity - E66.9 (Primary) Plan: * Treatment: * Preventive Medicine: Screenings/Counseling: B TX ACTION PLAN Above Normal BMI Follow-up D ietary management education, guidance, and counseling See treatment section of progress note for complete details of management plan. T OBACCO ACTION PLAN Patient counselled on the dangers of tobacco use and urged to quit. 0 12/28/2024 . * Follow Up: p rn * * Electronically signed by Terri Valdez , SPEECH LANGUAGE PATHOLOGIST, BARREL CAP SETTER.STEAM SHOVEL OILER.[id number] on 12/29/2024 at 12:43 PM EST Sign off status: Completed Visit Status: C HK (Check Out) true * Provider: Bernadette Valdez (TTC), STEAM SHOVEL OILER Date: 0 12/28/2024 Generated for Viola barger/Angel/eTransmitting on: 0 03/26/2025 04:35 PM EDT History and Physical Notes * HPI (History of Present Illness) Category Sub-Category Detail Notes Category Not es General Taking Adipex, no concerns down 9 lbs stopped diazapro thinks giving her a reccurring nightmare vistaril prn Examination Category Sub-Category Detail Notes Category Not es General Examinations GENERAL APPEARANCE: alert a nd oriented, in no acute distress, obese EYES: conjunctiva normal, sclera non-icteric EARS: NOSE: normal external appe arance THROAT: CARDIO: regular rate and rhy thm, S1, S2 normal LUNGS: clear to auscultatio n bilaterally ABDOMEN: SKIN: warm and dry BACK: MUSCULOSKELETAL: Gait and station nor mal LYMPH NODES:
--- OUTSIDE RECORDS SUMMARY | 2025-01-19 07:37 | XMS_ITS ---
Author Organization The [facility] in [place] Address [address] [place] [address] Care Team Providers Care Hat Measurer Name Role Phone CourtneyCecilia green Primary Care Provider [phone] Alan Arevalo Unavailable [phone] REASON FOR VISIT refill Medications Medication SIG (Take, Route, Frequency, Duration) Notes Start Date End Date Status Lyrica 75 MG 1 capsule Orally BID for 30 days 01/01 Active Encounters Encounter Location Date Provider Diagnosis [facility] [address] [place] [address] 01/19/2025 Alan Holm Back pain M54.9 Assessments Encounter Date Diagnosis (ICD Code) Assessment Notes Treatment Notes Treatment Clinical Notes Section Notes 01/19/2025 Back pain (ICD-10 - M54.9) Plan Of Treatment Medication Medication Name Sig Start Date Stop Date Notes Lyrica 75 MG 1 capsule Orally BID for 30 days 01/19/2025 Progress Notes * Carmen MCGOWANOB:[birth year] (24 yo F)Acc No.[id number]:01/19/2025 Patient: Sina WISEMAN Sofia :2000 A ge:24 Y S ex:Female Address:[address] [place] [address] [address], [place], [address] * Refills Refill Lyrica Capsule, 75 MG, Orally, 60 Capsule, 1 capsule, BID, 30 days, Refills=0 * true * Date: Generated for Printi ng/Faxing/Shayne on: 0 03/26/2025 04:35 PM EDT
--- OUTSIDE RECORDS SUMMARY | 2025-01-23 12:00 | XMS_ITS ---
Author Organization [facility] in [place] Address [address] [place] [address] Care Team Providers Care Graphic Art Designer Name Role Phone Cecilia Valdez Primary Care Provider REASON FOR VISIT 6 mo f/u Encounters Encounter Location Date Provider Diagnosis [facility] [address] [place] [address] 01/23/2025 Cecilia Valdez Plan Of Treatment No Information Progress Notes * Roge MCGOWANeDOB:[birth year] (24 yo F)Acc No.[id number]:01/23/2025 UNLOCKED PROGRESS NOTE Progress Note Patient: Sofia COOPER Provider: Bernadette Valdez CNP (TTC) :2000 A ge:24 Y S ex:Female Date:01/23/2025 Address:[address] [place] [address] [address], [facility] Subjective: * Chief Complaints: * 1 . 6 mo f/u. * Medical History: Objective: * Vitals: Assessment: Plan: * Treatment: * * Electronic signature of Chelsea Jimenez NP, EMULSION OPERATOR.NEUROPSYCHOLOGY SERVICE DIRECTOR.[id number] on 03/26/2025 at 04:35 PM EDT Sign off status: Pending Visit Status: C ANCPHONE (Cancelled Phone) * Provider: Bernadette Valdez CNP (TTC) Date: 01/23/2025 Generated for Printi ng/Faxing/eTransmitting on: 0 03/26/2025 04:35 PM EDT
[2025-03-26 16:18] VITALS: BP 106/68; PULSE 76; TEMP 36.9; O2SAT 99; BMI 30.3
[2025-03-26 16:31] LABS: HCG Qualitative Urine* POSITIVE (NEGATIVE); Internal Control Within Normal Limits
--- NOTE | 2025-03-26 16:34 | ED.GENADUL1 ---
HPI HPI - General Adult General Chief complaint: Recheck/Abnormal Lab/Rx Stated complaint: PREG TEST Time Seen by Provider: 03/26/25 16:19 Source: patient Mode of arrival: walk-in Limitations: no limitations History of Present Illness HPI narrative: 24 year old female presents to the ED with concern for . States she had a positive home test this morning. She would like confirmation. 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 States her LNMP was 02/11/25. Reports nausea this morning, breast soreness for several days. Denies fever, chills, abd pain, urinary symptoms. Denies vaginal bleeding or discharge. Related Data Home Medications ?Medication ?Instructions ?Recorded ?Confirmed albuterol sulfate 90 mcg/actuation 2 puff inhalation Q6H PRN 07/24/24 03/26/25 aerosol inhaler shortness of breath or wheezing hydroxyzine pamoate 25 mg capsule 25 mg PO BID PRN insomnia 07/24/24 03/26/25 pregabalin 75 mg capsule 75 mg PO BID 07/24/24 03/26/25 ondansetron 4 mg disintegrating 4 mg PO PRN 10/24/24 03/26/25 tablet Allergies Allergy/AdvReac Type Severity Reaction Status Date / Time ketorolac (From Toradol) Allergy Severe Hives Verified 10/24/24 08:13 Penicillins Allergy Severe Hives Verified 10/24/24 08:13 tramadol Allergy Severe Hives Verified 10/24/24 08:13 Opioid HPI Opioid Management Most Recent Opioid Data: Last Pain Scale 8 10/24/24, 08:51 Review of Systems ROS Constitutional Denies: fever or chills Cardiovascular Denies: chest pain Respiratory Denies: shortness of breath Gastrointestinal Reports: nausea; Denies: abdominal pain or diarrhea Genitourinary Reports: irregular period and absence of menstruation; Denies: painful urination, urinary frequency, urinary urgency, pelvic pain, vaginal bleeding or vaginal discharge Musculoskeletal Denies: back pain Neurological Denies: headache PFSH PFSH Social History Smoking status: Current every day smoker Little interest or pleasure in doing things: not at all Feeling down, depressed, or hopeless: not at all Exam Constitutional Vital Signs, click to edit/add: Last Vital Signs Temp 98.4 F 03/26/25 16:18 Pulse 76 03/26/25 16:18 Resp 18 03/26/25 16:18 BP 106/68 03/26/25 16:18 Pulse Ox 99 03/26/25 16:18 O2 Del Method Room Air 03/26/25 16:18 Common normals: no apparent distress and oriented x3 General appearance: cooperative Eye Common normals: conjunctivae normal and no scleral icterus Neck & C-Spine Common normals: supple Respiratory Effort & inspection: symmetric chest movement Cardio Common normals: regular rate GI Common normals: soft to palpation and non-tender Neuro Common normals: oriented x3 and moves all extremities Sensorium/orientation: awake and alert Speech: speech normal Gait (neuro): normal gait Course Vital Signs Vital signs: Vital Signs Temperature 98.4 F 03/26/25 16:18 Pulse Rate 76 03/26/25 16:18 Respiratory Rate 18 03/26/25 16:18 Blood Pressure 106/68 03/26/25 16:18 Pulse Oximetry 99 03/26/25 16:18 Oxygen Delivery Method Room Air 03/26/25 16:18 Temperature 98.4 F 03/26/25 16:18 Pulse Rate 76 03/26/25 16:18 Respiratory Rate 18 03/26/25 16:18 Blood Pressure 106/68 03/26/25 16:18 Pulse Oximetry 99 03/26/25 16:18 Oxygen Delivery Method Room Air 03/26/25 16:18 Medical Decision Making MDM Narrative Medical decision making narrative: Urine was positive. Findings were discussed with the patient. She was encouraged to follow up with her NON GARMENT SEWING MACHINE OPERATOR for a recheck, further evaluation and treatment. Medical Records Medical records reviewed: Yes I reviewed the patient's medical records Lab Data Lab results reviewed: Yes I reviewed the patient's lab results Labs: Lab Results 03/26/25 Range/Units 16:25 Urine HCG, Qual Positive A (NEGATIVE) Discharge Plan Discharge Chief Complaint: Recheck/Abnormal Lab/Rx Clinical Impression: Positive test Patient Disposition: Home, Self-Care Time of Disposition Decision: 16:34 Condition: Good Mode of Transportation: Private Vehicle Prescriptions / Home Meds: No Action albuterol sulfate 90 mcg/actuation HFA aerosol inhaler 2 puff INHALATION Q6H PRN (Reason: shortness of breath or wheezing) pregabalin 75 mg capsule 75 mg PO BID hydroxyzine pamoate 25 mg capsule 25 mg PO BID PRN (Reason: insomnia) ondansetron 4 mg tablet,disintegrating 4 mg PO PRN Print Language: Somali Instructions: (ED) Additional Instructions: Follow up with your NON GARMENT SEWING MACHINE OPERATOR for a recheck, further evaluation and treatment. Referrals: Jorge Rose DO [Physician, NON GARMENT SEWING MACHINE OPERATOR] - 1 week VIKTORIYA BARRETT [Primary Care Provider, Family Practice] - 1 week Discharge Date/Time: 03/26/25 16:44
--- OUTSIDE RECORDS SUMMARY | 2025-03-26 16:35 | XMS_ITS | Patient Health Record ---
Author Organization [facility] Address [address] [place] [address] Care Team Providers Care Manager Vehicle Name Role Phone Dr. Pablo Arreola Primary Care Provider Reason For Referral No Information Plan Of Treatment No Information Insurance Providers Payer Name Payer Address Payer Phone Subscriber Number Group Number Insured Name Patient Relationship to Insured Coverage Start Date Coverage End Date zDENTAL DQ [employer] [address] [place] [address] [id number] FELICIANO XENIA Self - patient is the insured 2 zDental MEDICAID [facility] after [employer] [address] [place] [address] [id number] FELICIANO XENIA Self - patient is the insured 2
--- OUTSIDE RECORDS SUMMARY | 2025-03-26 16:35 | XMS_ITS | Patient Health Record ---
Author Organization [facility] [place] Address [address] [place] [address] Care Team Providers Care Food Packer Name Role Phone Cecilia Valdez Primary Care Provider [phone] Alan Holm [phone] Allergies Allergen (clinical drug ingredient) Drug/Non Drug Allergy documented on EMR Reaction Allergy Type Onset Date Status ketorolac Ketorolac hives Drug Allergy Active tramadol Tramadol hives Drug Allergy Active Penicillin hives Drug Allergy Active Results Component Value Reference Range Notes HCG Qualitative Urine (Not yet reviewed by provider) Interpretation: Performing Lab: Notes/Report: [facility] , [facility] [place]itative Urine* POSITIVE NEGATIVE Performing Lab: see note ML - [facility] LB XR chest 2V Reviewed date:10/24/2024 09:34:43 AM Interpretation: Performing Lab: Notes/Report: Source Facility: [place] [id number] [address] [place] [id number] XRay Report Signed Patient: SOFIA MCGOWAN MR#: [id number] : 2000 Acct:[id number] Age/Sex: 23 / F ADM Date: 10/24/24 Loc: ER Attending Dr: Ordering Physician: Norah Thomason Date of Service: 10/24/24 Procedure(s): XR chest 2V Accession Number(s): [id number] cc: CECILIA VALEDZ ; Norah Thomason [place] [id number] Patient Name: SOFIA MCGOWAN MRN: [id number] date: 2000 Sex: F Assigned Patient Location: ER Current Patient Location: ER Accession/Order Number: [id number] Exam Date: 10/24/2024 08:59 Report Date: 10/24/2024 09:28 At the request of: NORAH THOMASON Procedure: XR chest 2V EXAMINATION: XR chest 2V HISTORY: chest pain COMPARISON: 06/16/2024 TECHNIQUE: PA and lateral FINDINGS: LUNGS: No significant pulmonary parenchymal abnormalities. VASCULATURE: No increased pulmonary vasculature. PLEURA: No pneumothorax, effusion, or pleural thickening. CARDIAC: No cardiomegaly or cardiac silhouette abnormality. MEDIASTINUM: No visible mass or adenopathy. BONES: No fracture or visible bone lesion. OTHER: Negative. XR/XR chest 2V IMPRESSION: No acute cardiopulmonary process Electronically authenticated by: GABBY CHARLES Date: 10/24/2024 09:28 Dictated By: Gabby Charles M.D. Signed By: 10/24/24930 DD/ 7 TD/TT: Car Rider: [place] [address] XRay Report Signed Patient: KAMILA MCGOWAN MR#: [id number] : 2000 Acct:[id number] Age/Sex: 23 / F ADM Date: 10/24/24 Loc: ER Attending Dr: Ordering Physician: Norah Thomason Date of Service: 10/24/24 Procedure(s): XR anna st 2V Accession Number(s): [id number] cc: CECILIA VALDEZ ; Norah Thomason [place] [id number] Patient Name: SOFIA MCGOWAN MRN: [id number] date: 2000 Sex: F Assigned Patient Location: ER Current Patient Location: ER Accession/Order Numb er: [id number] Exam Date: 08:59 Report Date: 10/24/2024 09:28 At the request of: NORAH THOMASON Procedure: XR chest 2V EXAMINATION: XR chest 2V HISTORY: chest pain COMPARISON: 06/16/2024 TECHNIQUE: PA and lateral FINDINGS: LUNGS: No significan t pulmonary parenchymal abnormalities. VASCULATURE: No increased pulmonary vasculature. PLEURA: No pneumotho rax, effusion, or pleural thickening. CARDIAC: No cardiome alban or cardiac silhouette abnormality. MEDIASTINUM: No visi ble mass or adenopathy. BONES: No fracture o r visible bone lesion. OTHER: Negative. X R/XR chest 2V IMPRESSION: No acute cardiopulmo nary process Electronically authenticated by: GABBY CHARLES Date: 10/24/2024 09:28 Dictated By: Nael Charles M.D. Signed By: 10/24/24930 DD/ 7 TD/TT: Car Rider: HCG Qualitative Urine Reviewed date:10/24/2024 09:34:43 AM Interpretation: Performing Lab: Notes/Report: [facility] , HCG Qualitative Urine* NEGATIVE NEGATIVE Performing Lab: see note ML - [facility] LB SARS-CoV-2 Ag* Reviewed date:10/24/2024 09:34:43 AM Interpretation: Performing Lab: Notes/Report: [facility] , SARS-CoV-2 Ag POSITIVE NEGATIVE This test has not been FDA cleared or approved, but has been authorized by the FDA under an Emergency Use Authorization (EUA) for use by authorized laboratories certified under CLIA that meet the requirements to perform moderate or high complexity testing. This test has been authorized only for the detection of proteins from SARS-CoV-2, not for any other viruses or pathogens. The emergency use of this test is authorized for the duration of the declaration that circumstances exist justifying the authorization of emergency use of in vitro diagnostic tests for detection and/or diagnosis of Covid-19 under section 564(b)(1) of the Act, 21 U.S.C. 360bbb-3(b)(1), unless the declaration is terminated or authorization is revoked sooner. Performing Lab: see note ML - [facility] LB UA RANDOM W or MICROSCOPIC Reviewed date:10/24/2024 09:34:43 AM Interpretation: Performing Lab: Notes/Report: [facility] , Color Urine YELLOW YELLOW Clarity Urine CLEAR CLEAR Specific Alpine Urine 1.025 1.005-1.025 pH Urine 6.0 5.0-9.0 Protein Urine NEGATIVE NEG/TRACE mg/dL Glucose Urine UA NEGATIVE NEGATIVE mg/dL Bilirubin Urine NEGATIVE NEGATIVE Ketones Urine NEGATIVE NEGATIVE mg/dL Blood Urine MODERATE NEGATIVE Nitrite Urine NEGATIVE NEGATIVE Urobilinogen Urine 0.2 0.2-1.0 EU/dL Leukocyte Esterase Urine NEGATIVE NEGATIVE WBC Urine 0-2 NONE SEEN #/HPF RBC Urine 10-20 0-2 #/HPF Bacteria Urine TRACE NONE SEEN #/HPF Mucus Urine TRACE NONE SEEN Squamous Epithelial Cell Urine MODERATE NONE/RARE #/LPF Crystals Seen? None Seen None Seen #/HPF Cast Seen? NONE SEEN NONE SEEN #/LPF Urine Culture Indicated NO Performing Lab: see note ML - [facility] LB INFLUENZA A AND B AG Reviewed date:10/24/2024 09:34:43 AM Interpretation: Performing Lab: Notes/Report: [facility] , Influenza Virus A Antigen Positive NOTE: Live attenuated influenza vaccine viruses can cause a positive result for a rapid influenza diagnostic test if administered up to 7 days prior to rapid testing. Influenza Virus B Antigen Negative Negative for Flu B protein antigen. Infection due to Flu B cannot be ruled out. Flu B antigen in the sample may be below the detection limit of the test. Performing Lab: see note ML - [facility] LB Reason For Referral No Information Medications Medication SIG (Take, Route, Frequency, Duration) Notes Start Date End Date Status Lyrica 75 MG 1 capsule Orally BID for 30 days 01/19/2025 Active Albuterol Sulfate HFA 108 (90 Base) MCG/ACT 1 puff as needed Inhalation every 4 hrs 08/01/2024 Active Ondansetron HCl 4 MG 1 tablet Orally BID prn for 7 days 08/01/2024 Active Vistaril 25 MG 1 capsule Orally BID PRN for 30 days 06/24/2024 Active Adipex-P 37.5 MG 1 tablet before derrick kfast Orally Once a day for 30 days 12/28/2024 Active Social History Tobacco Use: Social History Observation Description Date Details (start date - stop date) Current Smoker NA - NA Tobacco Control (Standard) Question Answer Notes Tobacco use: Current smoker How often do you smoke cigarettes? Every day How many cigarettes a day do you smoke? 11-20 AUDIT-C (Standard) Question Answer Notes Did you have a drink containing alcohol in the p ast year? No Points 0 Interpretation Negative Problems Problem Type SNOMED Code ICD Code Onset Dates Problem Status W/U Status Risk Notes Problem Mixed anxiety and depressive disorder (106617549) Anxiety and depression (F41.8) Active confirmed Problem Class 1 obesity (E66.9) Active confirmed Vital Signs Temperature 98.4 degrees Fahrenheit 11/22/2024 Blood pressure diastolic 54 mm Hg 12/28/2024 Height 58 in 12/28/2024 Blood pressure systolic 98 mm Hg 12/28/2024 Weight 155.2 lbs 12/28/2024 BMI 32.43 kg/m2 12/28/2024 Encounters Encounter Location Date Provider Diagnosis [facility] [address] [place] [address] 06/24/2024 Cecilia Courtney Back pain M54.9 and Anxiety and depression F41.8 [place] [address] [place] [address] 07/26/2024 Ceciliabeatriz Valdez Anxiety and depressi on F41.8 and Back pain M54.9 [facility] [address] [place] [address] 08/01/2024 Ceciliabeatriz Valdez Fever and chills R50 .9 ; Nausea R11.0 and Obese E66.9 [place] [address] [place] [address] 09/01/2024 Cecilia Courtney Obese E66.9 [place] [address] [place] [address] 09/27/2024 Cecilia Courtney Class 1 obesity E66. 9 [place] [address] [place] [address] 11/22/2024 Cecilia Courtney Class 1 obesity E66. 9 and Gastroenteritis K52.9 [facility] [address] [place] [address] 12/28/2024 Cecilia Courtney Class 1 obesity E66. 9 [facility] [address] [place] [address] 07/27/2024 Cecilia Courtney [facility] [address] [place] [address] 09/26/2024 Cecilia Courtney Back pain M54.9 [facility] [address] [facility] [place] [address] 10/12/2024 Cecilia Courtney [facility] [address] [facility] [place] [address] 11/10/2024 Cecilia Courtney Back pain M54.9 [facility] [address] [place] [address] 12/19/2024 Cecilia Courtney Back pain M54.9 [facility] [address] [place] [facility] [address] 01/19/2025 Alan Hoy Back pain M54.9 Assessments Encounter Date Diagnosis (ICD Code) Assessment Notes Treatment Notes Treatment Clinical Notes Section Notes 09/01/2024 Obese (ICD-10 - E66.9) work on diet fu one month 09/27/2024 Class 1 obesity (ICD-10 - E66.9) work on diet fu one month 11/22/2024 Class 1 obesity (ICD-10 - E66.9) work on diet 3 m fu me wt checks with nurses for refills between now and than 11/22/2024 Gastroenteritis (ICD-10 - K52.9) improved some push fluids, electrolytes 12/28/2024 Class 1 obesity (ICD-10 - E66.9) discussed diet, whole foods, increase protein 09/26/2024 Back pain (ICD-10 - M54.9) 11/10/2024 Back pain (ICD-10 - M54.9) 12/19/2024 Back pain (ICD-10 - M54.9) 01/19/2025 Back pain (ICD-10 - M54.9) 06/24/2024 Back pain (ICD-10 - M54.9) wt loss encouraged stretching, etc declines PT at this time CSA signed, OARRS reviewed 06/24/2024 Anxiety and depression (ICD-10 - F41.8) discussed counseling trial of lexapro fu one month 07/26/2024 Anxiety and depression (ICD-10 - F41.8) increase dose fu as needed 07/26/2024 Back pain (ICD-10 - M54.9) helping , continue fu 6m 08/01/2024 Fever and chills (ICD-10 - R50.9) 08/01/2024 Nausea (ICD-10 - R11.0) 08/01/2024 Obese (ICD-10 - E66.9) handouts given discussed diet OARRS reviewed, has signed CSA fu one month Plan Of Treatment Pending Test Test Name Order Date Covid-19 PCR ([facility]) 08/01/2024 HCG Qualitative Urine 03/26/2025 Insurance Providers Payer Name Payer Address Payer Phone Subscriber Number Group Number Insured Name Patient Relationship to Insured Coverage Start Date Coverage End Date [employer] [address] [address] [place] [address] [id number] Sofia Mcgowan Self - patient is the insured Medical (General) History Medical History History ICD Code anxiety Depression Surgical History Surgery Date(Month/Year) wisdom teeth removed tonsils removed c section
--- OUTSIDE RECORDS SUMMARY | 2025-03-26 16:35 | XMS_ITS | Clinical Summary ---
Author Organization [facility] Address [address] [place] [address] Care Team Providers Care Slab Stripper Name Role Phone Unavailable Primary Care Provider Unavailabl e Social History Tobacco Use Types Packs/Day Years Used Date Smoking Tobacco: Never Assessed Comments Unknown Sex and Gender Information Value Date Recorded Sex Assigned at Not on file Legal Sex Female 8:03 AM EST Gender Identity Not on file Sexual Orientation Not on file Plan of Treatment Health Maintenance Due Date Last Done Comments GONORRHEA SCREEN 2000 HEPATITIS C VIRUS SCREENING 1998 TETANUS 1998 HIV SCREENING DISCUSSION 2013 HPV VACCINE ADOL (1 - 3-dose series) 2013 HPV VACCINE (1 - 3-dose series) 2013 CHLAMYDIA SCREEN 2014 HEP B VACCINE (1 of 3 - 19+ 3-dose series) 2017 TDAP (ADULT) 2017 CERVICAL CANCER SCREENING DISCUSSION 2019 COVID-19 VACCINE (2023-2 5 season) 2024 INFLUENZA VACCINE (Season Ended) 2025 PNEUMOCOCCAL VACCINE SERIES Aged Out No longer eligible based on patient's age to complete this topic
--- OUTSIDE RECORDS SUMMARY | 2025-03-26 16:35 | XMS_ITS | Encounter Summary ---
Author Organization [facility] [employer] [facility] Address [id number] [address] [place] [address] Care Team Providers Care Furnace Cooler Name Role Phone DemetrioLen Bernadette SAUCEDO Primary Care Provider + [phone] Encounter Details Date Type Department Care Team (Late st Contact Info) Description 02/19/2023 Telephone [facility] [address] [place] [address] Clement Young, RN Social History Tobacco Use Types Packs/Day Years Used Date Smoking Tobacco: Every Day Cigarettes Smokeless Tobacco: Never Alcohol Use Standard Drinks/Week Comments Not Currently 0 (1 standard drink = 0.6 oz pur e alcohol) social Childcare Answer Date Recorded Childcare Unknown 04/14/2019 Employment Answer Date Recorded Employment Unknown 04/14/2019 Comments No Sex and Gender Information Value Date Recorded Sex Assigned at Female 12/23/2022 10:59 AM EST Legal Sex Female 10:27 AM EDT Gender Identity Female 12/23/2022 10:59 AM EST Sexual Orientation Straight 12/23/2022 10 :59 AM EST COVID-19 Exposure Response Date Recorded In the last month, have you been in contact with someone who was confirmed or suspected to have Coronavirus / COVID-19? No / Unsure 01/27/2023 9:19 AM EDT documented as of this encounter Nursing Notes * Clement Young RN - 02/19/2023 1:36 PM EDT Called patient back, patient stated picked up prescriptions and had to use percocet once throughoutthe night. Stated patient is comfortable at this time. Denies vomiting and states nausea when pain was increased, but has since gone away. States no fever or chills, denies redness, swelling or hardness around incision sites. Pt states not able to visualize the large incision on abdomen, but said will have look at it. RN educated patient on ensuring there is no yellow/greenish, foul smelling discharge, and to look for the redness, swelling, hardness, fever and chills for signs of infection. RN states if signs of infection to come in right away. PVU. RN reviewed incision closure of diss ovable sutures and glue, and to keep the area clean with soapy water, rinsing well with clean waterand patting dry with every shower and to ensure the incision keeps dry at all times. PVU. RN questioned about bleeding, patient states minimal to no bleeding noted on pad. RN educated patient on gas pain and to get up and walk to help with that, but not to over do activity for the next week. Abdominal binder use reviewed with patient and ISP. PVU. Educated patient on follow up in one week with Dr. Crawford, PVU. documented in this encounter Plan of Treatment Not on file documented as of this encounter Visit Diagnoses Not on filedocumented in this encounter Additional Health Concerns Assessment Noted Time A Body Mass Index follow-up plan has been documented for the patient 12/10/2022 4:19 PM EST documented as of this encounter Care Teams Furnace Cooler Relationship Specialty Start Date End Date Len Atkinson DO [address] [place] [address] PCP - General Family Medicine 12/15/22 documented as of this encounter
--- OUTSIDE RECORDS SUMMARY | 2025-03-26 16:36 | XMS_ITS | Clinical Summary ---
Author Organization [facility] Address [address] [place] [address] Care Team Providers Care Assembly Stock Supervisor Name Role Phone Unavailable Primary Care Provider Unavailabl e Social History Tobacco Use Types Packs/Day Years Used Date Smoking Tobacco: Never Assessed Comments Unknown Sex and Gender Information Value Date Recorded Sex Assigned at Not on file Legal Sex Female 6:40 PM EDT Gender Identity Not on file Sexual Orientation Not on file Last Filed Vital Signs Vital Sign Reading Time Taken Comments Blood Pressure 118/78 01/03/2022 12:00 PM EST Pulse - - Temperature - - Respiratory Rate - - Oxygen Saturation - - Inhaled Oxygen Concentration - - Weight 78.2 kg (172 lb 6.4 oz) 01/03/2022 12:00 PM EST Height 151.1 cm (4' 11.5 ) 01/03/2022 12:[address] Body Mass Index 34.24 01/03/2022 12:00 PM EST Plan of Treatment Not on file
--- OUTSIDE RECORDS SUMMARY | 2025-03-26 16:36 | XMS_ITS | Encounter Summary ---
Author Organization [employer] [facility] Address [id number] [address] [place] [address] Care Team Providers Care Grain Oilseed Or Pasture Farm Worker Name Role Phone Parish Atkinsonen Bernadette SAUCEDO Primary Care Provider + [phone] Reason for Visit * Reason Onset Date Comments Med Refill 05/05/2023 Encounter Details Date Type Department Care Team (Late st Contact Info) Description 05/05/2023 Refill [facility] [address] [facility] [place] [address] Kim Crawford DO [address] [place] [address] Asthma, unspecified asthma severity, unspecified whether complicated, unspecified whether persistent Social History Tobacco Use Types Packs/Day Years [...] Orientation Straight 12/23/2022 10 :59 AM EST documented as of this encounter Miscellaneous Notes * Telephone Encounter - Kim Crawford DO - 05/05/2023 7:53 PM EDT I did refill Margo's albuterol once a she stated she could not get into her primary care physicianand was out of the medication. She will need to continue to [facility] as I do not have the ability to assess her lung function. documented in this encounter Plan of Treatment Not on file documented as of this encounter Visit Diagnoses Diagnosis Asthma, unspecified asthma severity, unspecified whether complicated, unspecified whether persistent documented in this encounter Additional Health Concerns Assessment Noted Time A Body Mass Index follow-up plan has been documented for the patient 12/10/2022 4:19 PM EST documented as of this encounter Care Teams Grain Oilseed Or Pasture Farm Worker Relationship Specialty Start Date End Date Len Atkinson DO [address] [place] [address] PCP - General Family Medicine 12/15/22 documented as of this encounter
--- OUTSIDE RECORDS SUMMARY | 2025-03-26 16:36 | XMS_ITS | Encounter Summary ---
Author Organization [employer] Address [facility]-[id number] [address] [place] [address] Care Team Providers Care Relay Technician Name Role Phone Parish Atkinsonen Bernadette SAUCEDO Primary Care Provider + [phone] Reason for Visit * Reason Onset Date Comments Med Refill 04/16/2023 Encounter Details Date Type Department Care Team (Late st Contact Info) Description 04/16/2023 Refill [facility] [address] [facility] [place] [address] Kim Crawford DO [address] [place] [address] Asthma, unspecified asthma severity, unspecified [...] Telephone Encounter - Kim Crawford DO - 04/16/2023 1:40 PM EDT Patient will need to find a primary care provider for further refills of her albuterol documented in this encounter Plan of Treatment Not on file documented as of this encounter Visit Diagnoses Diagnosis Asthma, unspecified asthma severity, unspecified whether complicated, unspecified whether persistent documented in this encounter Additional Health Concerns Assessment Noted Time A Body Mass Index follow-up plan has been documented for the patient 12/10/2022 4:19 PM EST documented as of this encounter Care Teams Relay Technician Relationship Specialty Start Date End Date Len Atkinson DO [address] [place] [address] PCP - General Family Medicine 12/15/22 documented as of this encounter
--- OUTSIDE RECORDS SUMMARY | 2025-03-26 16:36 | XMS_ITS | Encounter Summary ---
Author Organization [employer] Address [facility]-[id number] [address] [place] [address] Care Team Providers Care Grain Loader Name Role Phone Len Atkinson DO Primary Care Provider + [phone] Reason for Visit * Reason Onset Date Comments Med Refill 05/09/2023 Encounter Details Date Type Department Care Team (Late st Contact Info) Description 05/09/2023 Refill [facility] Ob[facility]ne[facility] [address] [facility] [place] [address] Kim Crawford DO [address] [place] [address] Social History Tobacco Use Types Packs/Day Years [...] Telephone Encounter - Kim Crawford DO - 05/09/2023 10:51 AM EDT Patient was just given a refill on 05/12/2023. documented in this encounter Plan of Treatment Not on file documented as of this encounter Visit Diagnoses Not on filedocumented in this encounter Additional Health Concerns Assessment Noted Time A Body Mass Index follow-up plan has been documented for the patient 12/10/2022 4:19 PM EST documented as of this encounter Care Teams Grain Loader Relationship Specialty Start Date End Date Len Atkinson DO [address] [place] [address] PCP - General Family Medicine 12/15/22 documented as of this encounter
--- OUTSIDE RECORDS SUMMARY | 2025-03-26 16:36 | XMS_ITS | Encounter Summary ---
Author Organization [employer] Address [facility]-[id number] [address] [place] [address] Care Team Providers Care Antique Clock Repairer Name Role Phone Len Atkinson DO Primary Care Provider + [phone] Reason for Visit * Reason Onset Date Comments Med Refill 11/18/2023 Encounter Details Date Type Department Care Team (Late st Contact Info) Description 11/18/2023 Refill [facility] Ob[facility]necology [address] [facility] [address] Kim Crawford DO [address] [place] [address] Asthma, unspecified asthma severity, unspecified whether complicated, unspecified whether persistent; Pelvic pain; Dysmenorrhea Social History Tobacco Use Types Packs/Day Years Used Date Smoking Tobacco: Every Day Cigarettes Smokeless Tobacco: Never Alcohol Use Standard Drinks/Week Comments Not Currently 0 (1 standard drink = 0.6 oz pur e alcohol) social Childcare Answer Date Recorded Childcare Unknown 04/14/2019 Employment Answer Date Recorded Employment Unknown 04/14/2019 Hunger Screening Answer Date Recorded Within the past 12 months we worried whether our food would run out before we got money to buy more. Never True 06/23/2023 Within the past 12 months th e food we bought just didn't last and we didn't have money to get more. Never True 06/23/2023 Comments No Sex and Gender Information Value Date Recorded Sex Assigned at Female 12/23/2022 10:59 AM EST Legal Sex Female 10:27 AM EDT Gender Identity Female 12/23/2022 10:59 AM EST Sexual Orientation Straight 12/23/2022 10 :59 AM EST documented as of this encounter Miscellaneous Notes * Telephone Encounter - Kim Crawford DO - 11/18/2023 10:13 AM EST Refill her albuterol once as an emergency. She will need to follow-up with her primary care provider for further prescriptions. * Telephone Encounter - Margo Avila LPN - 11/18/2023 10:13 AM EST Pt aware she has a refill from Aug 2023. Pt also aware to F/U with PCP documented in this encounter Plan of Treatment Not on file documented as of this encounter Visit Diagnoses Diagnosis Asthma, unspecified asthma severity, unspecified whether complicated, unspecified whether persistent Pelvic pain Dysmenorrhea documented in this encounter Additional Health Concerns Assessment Noted Time A Body Mass Index follow-up plan has been documented for the patient 12/10/2022 4:19 PM EST documented as of this encounter Care Teams Antique Clock Repairer Relationship Specialty Start Date End Date Len Atkinson DO [address] [place] [address] PCP - General Family Medicine 12/15/22 documented as of this encounter
--- OUTSIDE RECORDS SUMMARY | 2025-03-26 16:36 | XMS_ITS | Encounter Summary ---
Author Organization [facility] [employer] Address [address] [place] [address] Care Team Providers Care Poultry Cleaner Name Role Phone Unavailable Primary Care Provider Unavailabl e Reason for Visit * Reason Onset Date Comments Advice Only 01/09/2022 Encounter Details Date Type Department Care Team (Late st Contact Info) Description 01/09/2022 Telephone Central Scheduling [address] [place] [address] Consult, Oncology [place] [address] Advice Only Social History Tobacco Use Types Packs/Day Years Used Date Smoking Tobacco: Never Assessed Comments Unknown Sex and Gender Information Value Date Recorded Sex Assigned at Not on file Legal Sex Female 8:03 AM EST Gender Identity Not on file Sexual Orientation Not on file COVID-19 Exposure Response Date Recorded In the last 10 days, have yo u been in contact with someone who was confirmed or suspected to have Coronavirus/COVID-19? No / Unsure 01/08/2022 1:20 PM EST documented as of this encounter Miscellaneous Notes * Telephone Encounter - Sudha Buchanan RN - 01/09/2022 1:40 PM EST Ok no worries I'll give her a call. * Telephone Encounter - Radha Pereira - 01/09/2022 12:58 PM EST Pt called in to let team know she was in ED last night d/t pain and they drained the nodule on her chest. Pt wanted to let team know she has a drain tube in and will still have that when she comes toher appt next week. documented in this encounter Plan of Treatment Not on file documented as of this encounter Visit Diagnoses Not on filedocumented in this encounter
== END 2025-03-26 16:44 | disposition home or self-care (01) ==
PROVIDERS: Nurse Practitioner Family; Emergency Provider Emergency Medicine; PCP Nurse Practitioner Family
DX: Z32.01 Encounter for pregnancy test, result positive (principal); R11.0 Nausea; O92.29 Other disorders of breast associated with pregnancy and the puerperium; N92.6 Irregular menstruation, unspecified
CPT/HCPCS: 84703; 99283

== ENCOUNTER 2025-04-24 07:57 | Outpatient (OUT) | payer OTHER, SELFPAY ==
--- OUTSIDE RECORDS SUMMARY | 2025-01-23 12:00 | XMS_ITS ---
Author Organization The [facility] in [place] Address [address] [place] [address] Care Team Providers Care Mapping Technician Name Role Phone Cecilia Valdez Primary Care Provider [phone] REASON FOR VISIT 6 mo f/u Encounters Encounter Location Date Provider Diagnosis [facility] [address] [place] [address] 01/23/2025 Cecilia Valdez Plan Of Treatment No Information Progress Notes * Roge MCGOWANeDOB:[birth year] (24 yo F)Acc No.[id number]:01/23/2025 UNLOCKED PROGRESS NOTE Progress Note Patient: Sofia COOPER Provider: Bernadette Valdez CNP (TTC) :2000 A ge:24 Y S ex:Female Date:01/23/2025 Address:[address] [place] [address] [address], [facility] Subjective: * Chief Complaints: * 1 . 6 mo f/u. * Medical History: Objective: * Vitals: Assessment: Plan: * Treatment: * * Electronic signature of Chelsea Jimenez NP, AIRCRAFT DESIGN ENGINEER.DIRECTOR OF FOOD AND NUTRITION SERVICES.[id number] on 04/24/2025 at 08:00 AM EDT Sign off status: Pending Visit Status: C ANCPHONE (Cancelled Phone) * Provider: Bernadette Valdez CNP (TTC) Date: 0 01/23/2025 Generated for Printi ng/Faxing/eTransmitting on: 0 04/24/2025 08:00 AM EDT
--- OUTSIDE RECORDS SUMMARY | 2025-03-28 05:50 | XMS_ITS ---
Author Organization [facility] [place] Address [address] [place] [address] Care Team Providers Care Reservoir Engineering Consultant Name Role Phone Cecilia Valdez Primary Care Provider REASON FOR VISIT 3 Month Follow Up -LMTCB Encounters Encounter Location Date Provider Diagnosis [facility] [address] [place] [address] 03/28/2025 Cecilia Valdez Plan Of Treatment No Information Progress Notes * Carmen ANDREWSOB:[birth year] (24 yo F)Acc No.[id number]:03/28/2025 Patient: Truong COOPERlette :2000 A ge:24 Y S ex:Female Address:[address] [place] [address] [address], [place], [place], [facility] * true * Date: Generated for Printi ng/Fafedericog/eTransmitting on: 0 04/24/2025 08:00 AM EDT
--- OUTSIDE RECORDS SUMMARY | 2025-03-31 07:35 | XMS_ITS ---
Author Organization [facility] [place] Address [address] [place] [address] Care Team Providers Care Blow Mold Operator Name Role Phone Cecilia Valdez Primary Care Provider [phone] REASON FOR VISIT lyrica- Encounters Encounter Location Date Provider Diagnosis [facility] [address] [place] [address] 03/31/2025 Cecilia Valdez Back pain M54.9 Assessments Encounter Date Diagnosis (ICD Code) Assessment Notes Treatment Notes Treatment Clinical Notes Section Notes 03/31/2025 Back pain (ICD-10 - M54.9) Plan Of Treatment Medication Medication Name Sig Start Date Stop Date Notes Lyrica 75 MG 1 capsule Orally BID 01/19/2025 Progress Notes * Carmen MCGOWANOB:[birth year] (24 yo F)Acc No.[id number]:03/31/2025 Patient: Truong COOPERlette :2000 A ge:24 Y S ex:Female Address:[address] [place] [address] [address], [place], [address] * Refills Stop Lyrica Capsule, 75 MG, Orally, 1 capsule, BID Subjective: * Chief Complaints: * L yrica- * Medical History: * Surgical History: * Hospitalization/Major Diagno stic Procedure: * Medications: Objective: * Vitals: * Physical Examination: Assessment: * Assessment: 1. B ack pain - M54.9 Plan: * Treatment: * Procedure Codes: * true * Date: Generated for Viola barger/Angel/Shayne on: 0 04/24/2025 08:00 AM EDT
--- OUTSIDE RECORDS SUMMARY | 2025-04-10 15:00 | XMS_ITS | Encounter Summary ---
Author Organization [facility] Address [address] [facility] [place] [address] Care Team Providers Care Rubber Tubing Splicer Name Role Phone Unavailable Primary Care Provider Unavailabl e Encounter Details Date Type Department Care Team (Latest Contact Info) Description 04/10/2025 3:00 PM EDT Ancillary Procedure [facility] [address] [facility] [place] [address] Ultrasound scan to recheck heart rate ([facility]) Social History Tobacco Use Types Packs/Day Years Used Date Smoking Tobacco: Former Cigarettes Estimated Date of Delivery Comme nts Yes 11/25/2025 Based on Ultraso und, [facility]HR- 101 Sex and Gender Information Value Date Recorded Sex Assigned at Not on file Legal Sex Female 6:40 PM EDT Gender Identity Not on file Sexual Orientation Not on file documented as of this encounter Plan of Treatment Upcoming Encounters Date Type Department Care Team (Late st Contact Info) Description 04/24/2025 9:10 AM EDT Routine [facility] [address] [place] [address] Jorge Rose, DO [address] [place], [place] [id number] documented as of this encounter Procedures Procedure Name Priority Date/Time Associated Diagnosis Comments US OB TRANSVAGINAL Routine 04/10/2025 3: 26 PM EDT Ultrasound scan to recheck heart rate ([facility]) documented in this encounter Results * US OB transvaginal (04/10/2025 3:26 PM EDT) Anatomical Region Laterality Modality Body Ultrasound 04/12/2025 8:25 AM EDT Narrative 04/12/2025 8:25 AM EDT EXAM: US OB TRANSVAGINAL HISTORY: Viability, low heart rate. COMPARISON: Ob ultrasound 03/30/2025. TECHNIQUE: Two-dimensional transvaginal grayscale ultrasound imaging of the pelvis was performed. Color Doppler evaluation of the ovaries was also performed. FINDINGS: The uterus demonstrates a normal homogeneous echotexture. The cervix measures 3.6 cm in length and the cervical os is closed. The right ovary measures 3.9 x 2.4 x 3.7 cm and demonstrates a normal echotexture. There is normal color Doppler flow. The left ovary measures 4.0 x 2.6 x 3.3 cm and demonstrates a normal echotexture. There is normal color Doppler flow. No fluid is present within the cul-de-sac. There is a single, live intrauterine gestation identified with a heart rate of 155 beats per minute and a crown-rump length measurement of 1.2 cm, correlating to a gestational age of 7 weeks 5 days (+/- 4 days). There is no subchorionic hemorrhage visualized. A yolk sac is visualized. IMPRESSION: 1. Single, live intrauterine gestation 7 weeks, 2 days by LMP. Today's ultrasound measurements correlate with a gestational age of 7 weeks 5 days (+/- 4 days). JONH by today's ultrasound is 11/22/2025. 2. heart rate is within normal limits measuring 155 beats per minute. Interpreted by: Electronically signed by BRAD CALDERÓN II, MD, PHD at 12-Apr-2025 08:23:25 AM [facility] Procedure Note Brad Calderón MD - 04/12/2025 EXAM: US OB TRANSVAGINAL HISTORY: Viability, low heart rate. COMPARISON: Ob ultrasound 03/30/2025. TECHNIQUE: Two-dimensional transvaginal grayscale ultrasound imaging ofthe pelvis was performed. Color Doppler evaluation of the ovaries was alsoperformed. FINDINGS: The uterus demonstrates a normal homogeneous echotexture. The cervixmeasures 3.6 cm in length and the cervical os is closed. The right ovary measures 3.9 x 2.4 x 3.7 cm and demonstrates a normalechotexture. There is normal color Doppler flow. The left ovary measures 4.0 x 2.6 x 3.3 cm and demonstrates a normalechotexture. There is normal color Doppler flow. No fluid is present within the cul-de-sac. There is a single, live intrauterine gestation identified with a fetalheart rate of 155 beats per minute and a crown-rump length measurement of1.2 cm, correlating to a gestational age of 7 weeks 5 days (+/- 4 days).There is no subchorionic hemorrhage visualized. A yolk sac isvisualized. IMPRESSION: 1. Single, live intrauterine gestation 7 weeks, 2 days by LMP. Today'sultrasound measurements correlate with a gestational age of 7 weeks 5 days(+/- 4 days). JONH by today's ultrasound is 11/22/2025. 2. heart rate is within normal limits measuring 155 beats perminute. Interpreted by: Electronically signed by BRAD CALDERÓN II, MD, PHD [id number] 08:23:25 AM [facility] us Jorge Rose DO IMMirta OB US PROCEDURES Final Resul t documented in this encounter Visit Diagnoses Diagnosis Ultrasound scan to recheck heart rate ([facility]) Encounter for routine screening for malformation using ultrasonics documented in this encounter
--- OUTSIDE RECORDS SUMMARY | 2025-04-24 08:01 | XMS_ITS | Encounter Summary ---
Author Organization [facility] Address [address] [facility] [place] [address] Care Team Providers Care Playground Aide Name Role Phone Unavailable Primary Care Provider Unavailabl e Encounter Details Date Type Department Care Team (Late st Contact Info) Description 03/30/2025 Abstract [facility] OB [address] [place] [address] Jorge Rose, DO [address], [place] [address] Social History Tobacco Use Types Packs/Day Years [...] Description 04/24/2025 9:10 AM EDT Routine [facility] [address] [place] [address] Jorge Rose, DO [address], [facility] documented as of this encounter Visit Diagnoses Not on filedocumented in this encounter
--- OUTSIDE RECORDS SUMMARY | 2025-04-24 08:01 | XMS_ITS | Encounter Summary ---
Author Organization [facility] Address [address] [facility] [place] [address] Care Team Providers Care Turbine Engineer Name Role Phone Unavailable Primary Care Provider Unavailabl e Encounter Details Date Type Department Care Team (Late st Contact Info) Description 03/30/2025 Abstract [facility] OB [address] [place] [address] Jorge Rose, DO [address], [place] [address] Social History Tobacco Use Types Packs/Day Years [...] Description 04/24/2025 9:10 AM EDT Routine [facility] OB [address] [place] [address] Jorge Rose, DO [address], [facility] documented as of this encounter Visit Diagnoses Not on filedocumented in this encounter
--- OUTSIDE RECORDS SUMMARY | 2025-04-24 08:01 | XMS_ITS | Clinical Summary ---
Author Organization [facility] Address [address] [facility] [place] [address] Care Team Providers Care Associate Web Developer Name Role Phone Unavailable Primary Care Provider Unavailabl e Allergies Active Allergy Reactions Criticality Noted Date Comments Penicillins 03/30/2025 Ketorolac Tromethamine 03/30/2025 Tramadol 03/30/2025 Medications pregabalin (Lyrica) 200 MG capsule Take 200 mg by mouth Daily 5 Active ondansetron ODT (Zofran-ODT) 4 MG disintegrating tabletIndications:N ausea Take 1 tablet (4 mg) by mouth every 6 (six) hours if needed for nausea or vomiting 30 tablet 3 5 04/29/20 25 Active Vit-Fe Fumarate-FA ( Vitamins) 28-0.8 MG tabletIndications:M issed menses,, unspecified gestational age ([facility]),Encounter for supervision of normal first in first trimester ([facility]),Nausea Take 1 tablet by mouth Daily 30 tablet 3 5 03/30/20 26 Active metoclopramide (Reglan) 10 MG tabletIndications:N ausea and vomiting, unspecified vomiting type Take 1 tablet (10 mg) by mouth in the morning and 1 tablet (10 mg) in the evening and 1 tablet (10 mg) before bedtime. 90 tablet 2 5 05/03/20 25 Active Encounters Date Type Department Care Team Description 04/10/2025 3:00 PM EDT Ancillary Procedure [facility] [address] [place] [address] [place] [address] Ultrasound scan to recheck heart rate ([facility]) 04/03/2025 8:00 AM EDT Office Visit [facility] OB [address] [place] [address] Jorge Rose, Medication care plan discussed with patient; Nausea and vomiting, unspecified vomiting type 04/03/2025 Abstract [facility] OB [address] [place] [address] Jorge Rose, 04/03/2025 Telephone [facility] [address] [place] [address] Jorge Rose, 03/30/2025 2:00 PM EDT Initial [facility] OB [address] [place] [address] GA: 5w5d 03/30/2025 1:30 PM EDT Ancillary Procedure [facility] OB [address] [place] [address] Missed menses 03/30/2025 Abstract [facility] OB [address] [facility] [place] [address] Jorge Rose, 03/30/2025 Abstract [facility] OB [address] [place] [address] Jorge Rose, 03/30/2025 Abstract [facility] OB [address] [place] [address] Jorge Rose, 03/30/2025 Abstract [facility] OB [address] [facility] [place] [address] Jorge Rose, from Last 3 Months Family History Medical History Relation Name Comments Alcohol abuse Father Pancreatic cancer Maternal Grandfather Schizophrenia Maternal Grandmother Suicide Attempts Maternal Grandmother Anxiety disorder Mother Bipolar disorder Mother Breast cancer Mother STAGE 4 METS Depression Mother Diabetes Mother HIGH BLOOD PRESSURE Mother Hyperlipidemia Mother Schizophrenia Mother Schizophrenia Mother's Brother Suicide Attempts Mother's Brother Relation Name Status Comments Father Maternal Grandfather Maternal Grandmother Mother Mother's Brother Social History Tobacco Use Types Packs/Day Years Used Date Smoking Tobacco: Former Cigarettes Tobacco Cessation:Counseling Given: Not Answered Estimated Date of Delivery Comme nts Yes 11/25/2025 Based on Ultraso und, [facility]- 101 Sex and Gender Information Value Date Recorded Sex Assigned at Not on file Legal Sex Female 6:40 PM EDT Gender Identity Not on file Sexual Orientation Not on file Last Filed Vital Signs Vital Sign Reading Time Taken Comments Blood Pressure 120/76 03/30/2025 3:49 PM EDT Pulse - - Temperature - - Respiratory Rate - - Oxygen Saturation - - Inhaled Oxygen Concentration - - Weight 69.8 kg (153 lb 12.8 oz) 03/30/2025 3:49 PM EDT Height 151.1 cm (4' 11.5 ) 01/03/2022 1 2:00 PM EST Body Mass Index 30.54 01/03/2022 12:00 PM EST Plan of Treatment Upcoming Encounters Date Type Department Care Team (Late st Contact Info) Description 04/24/2025 9:10 AM EDT Routine [facility] OB [address] [facility] [place] [address] Jorge Rose, DO [address] [facility] [place] [address] Procedures Procedure Name Priority Date/Time Associated Diagnosis Comments US OB TRANSVAGINAL Routine 04/10/2025 3: 26 PM EDT Ultrasound scan to recheck heart rate ([facility]) POCT URINALYSIS DIPSTICK Routine 03/30/2025 4:03 PM EDT Missed menses POCT , URINE Routine 03/30/2025 4:03 PM EDT Missed menses US OB TRANSVAGINAL Routine 03/30/2025 3: 11 PM EDT Missed menses from Last 3 Months Results * US OB transvaginal (04/10/2025 3:26 PM EDT) Only the most recent of2 resultswithin the time period is included. Anatomical Region Laterality Modality Body Ultrasound 04/12/2025 [...] II, MD, PHD at 12-Apr-2025 08:23:25 AM [facility] Procedure Note Brad Calderón MD - [...] signed by BRAD CALDERÓN II, MD, PHD [id number] 08:23:25 AM [facility] us Jorge Milton DO IMG OB US PROCEDURES Final Resul t * (ABNORMAL) POCT , urine manually resulted (03/30/2025 4:03 PM EDT) Preg Test, Ur Positive Negative Urine 03/30/2025 4:03 PM EDT us Jorge Milton DO POINT OF CARE TEST ENTER/EDIT OR DERABLES Final Result * (ABNORMAL) POCT urinalysis dipstick manually resulted (03/30/2025 4:03 PM EDT) Color, UA Yellow Clarity, UA Clear Glucose, UA Negative Negative - 2000(110) ++++ mg/dL Bilirubin, UA Negative Negative - 4(70) +++ mg/dL Ketones, UA Negative Negative - 160(16) ++++ mg/dL Spec Grav, UA 1.015 1 - 1.03 Blood, UA Positive Negative - 50 Mando/mcL Comment:trace-intact pH, UA 5.5 5 - 9 Protein, UA Negative Negative - 1999(20) ++++ mg/dL Urobilinogen, UA 0.2 0.2 - 12 mg/dL Leukocytes, UA Negative Negative - 500+++ Maddy/mcL Nitrite, UA Negative Negative - Positive Urine 03/30/2025 4:03 PM EDT Jorge Rose DO POINT OF CARE TEST ENTER/EDIT OR DERABLES Final Result from Last 3 Months Insurance [employer]
--- OUTSIDE RECORDS SUMMARY | 2025-04-24 08:01 | XMS_ITS | Patient Health Record ---
Author Organization [facility] [employer] Address [address] [place] [address] Care Team Providers Care Nut Dehydrator Operator Name Role Phone Cecilia Valdez Primary Care Provider [phone] AdamgeeAlan [phone] Allergies Allergen (clinical drug ingredient) Drug/Non Drug Allergy documented on EMR Reaction Allergy Type Onset Date Status ketorolac Ketorolac hives Drug Allergy Active tramadol Tramadol hives Drug Allergy Active Penicillin hives Drug Allergy Active Results Component Value Reference Range Notes UA RANDOM W or MICROSCOPIC Reviewed date:10/24/2024 09:34:43 AM Interpretation: Performing Lab: Notes/Report: [facility] , Color Urine YELLOW YELLOW Clarity Urine CLEAR CLEAR Specific [place] Urine 1.025 1.005-1.025 pH Urine 6.0 5.0-9.0 [...] NO Performing Lab: see note ML - [facility] LB SARS-CoV-2 Ag* Reviewed date:10/24/2024 09:34:43 AM Interpretation: Performing Lab: Notes/Report: [facility] , SARS-CoV-2 Ag POSITIVE NEGATIVE circumstances exist justifying the authorization of emergency use of in vitro diagnostic tests for detection terminated or authorization is revoked sooner. viruses or pathogens. The emergency use of this test is (EUA) for use by authorized laboratories certified under Act, 21 U.S.C. 360bbb-3(b)(1), unless the declaration is This test has not been FDA cleared or approved, but has been CLIA that meet the requirements to perform moderate or high and/or diagnosis of Covid-19 under section 564(b)(1) of the complexity testing. This test has been authorized only for authorized by the FDA under an Emergency Use Authorization authorized for the duration of the declaration that the detection of proteins from SARS-CoV-2, not for any other Performing Lab: see note ML - [facility] LB XR chest 2V Reviewed date:10/24/2024 09:34:43 AM Interpretation: Performing Lab: Notes/Report: Source Facility: [facility] [place] [address] [place] [address] XRay Report Signed Patient: SOFIA MCGOWAN MR#: [id number] : 2000 Acct:[id number] Age/Sex: 23 / F ADM Date: 10/24/24 Loc: ER Attending Dr: Ordering Physician: Norah Thomason Date of Service: 10/24/24 Procedure(s): XR chest 2V Accession Number(s): [id number] cc: CECILIA VALDEZ ; Norah Thomason [place] [address] Patient Name: SOFIA MCGOWAN MRN: [id number] date: 2000 Sex: F Assigned Patient Location: ER Current Patient Location: ER Accession/Order Number: [id number] Exam Date: 10/24/2024 08:59 Report Date: 10/24/2024 [...] M.D. Signed By: 10/24/24930 DD/ 7 TD/TT: Water Reuse Program Manager: [place] [address] XRay Report Signed Patient: KAMILA MCGOWAN MR#: [id number] : 2000 Acct:[id number] Age/Sex: 23 / F ADM Date: 10/24/24 Loc: ER Attending Dr: Ordering Physician: Norah Thomason Date of Service: 10/24/24 Procedure(s): XR anna st 2V Accession Number(s): [id number] cc: CECILIA VALDEZ ; Norah Thomason [place] [address] Patient Name: SOFIA MCGOWAN MRN: [id number] date: 2000 Sex: F Assigned Patient Location: ER Current Patient Location: ER Accession/Order Numb er: [id number] Exam Date: 08:59 Report Date: 10/24/2024 09:28 [...] CHARLES Date: 10/24/2024 09:28 Dictated By: Nael hCarles M.D. Signed By: 10/24/24930 DD/ 7 TD/TT: Water Reuse Program Manager: INFLUENZA A AND B AG Reviewed date:10/24/2024 09:34:43 AM Interpretation: Performing Lab: Notes/Report: [facility] , Influenza Virus A Antigen Positive administered up to 7 days prior to rapid testing. NOTE: Live attenuated influenza vaccine viruses can cause a positive result for a rapid influenza diagnostic test if Influenza Virus B Antigen Negative Negative for Flu B protein antigen. Infection due to Flu B cannot be ruled out. Flu B antigen in the sample may be below the detection limit of the test. Performing Lab: see note ML - [facility] HCG Qualitative Urine Reviewed date:03/28/2025 09:28:29 AM Interpretation: Performing Lab: Notes/Report: [facility] , HCG Qualitative Urine* POSITIVE NEGATIVE Performing Lab: see note ML - [facility] HCG Qualitative Urine Reviewed date:10/24/2024 09:34:43 AM Interpretation: Performing Lab: Notes/Report: [facility] , HCG Qualitative Urine* NEGATIVE NEGATIVE Performing Lab: see note ML - [facility] LB Reason For Referral No Information Medications Medication SIG (Take, Route, Frequency, Duration) Notes Start Date End Date Status Albuterol Sulfate HFA 108 (90 Base) MCG/ACT [...] Notes Problem Mixed anxiety and depressive disorder (994419144) Anxiety and depression (F41.8) Active confirmed Problem Obese class I (finding) (02352576764067 7) Class 1 obesity (E66.9) Active confirmed Vital Signs Temperature 98.4 degrees Fahrenheit 11/22/2024 Blood pressure diastolic 54 mm Hg 12/28/2024 Height 58 in 12/28/2024 Blood pressure systolic 98 mm Hg 12/28/2024 Weight 155.2 lbs 12/28/2024 BMI 32.43 kg/m2 12/28/2024 Encounters Encounter Location Date Provider Diagnosis [place] [address] [place] [address] 06/24/2024 Cecilia Courtney Back pain M54.9 and Anxiety and depression F41.8 [place] [place] [address] 07/26/2024 Ceciliabeatriz Valdez Anxiety and depressi on F41.8 and Back pain M54.9 [address] [place] [address] 08/01/2024 Ceciliabeatriz Valdez Fever and chills R50 .9 ; Nausea R11.0 and Obese E66.9 [address] [place] [address] 09/01/2024 Ceciliabeatriz Taylormer Obese E66.9 [address] [place] [address] 09/27/2024 Cecilia Courtney Class 1 obesity E66. 9 [address] [place] [address] 11/22/2024 Cecilia Courtney Class 1 obesity E66. 9 and Gastroenteritis K52.9 [address] [place] [address] 12/28/2024 Cecilia Courtney Class 1 obesity E66. 9 [address] [place] [address] 07/27/2024 Cecilia Courtney [place] [address] [facility] [address] 09/26/2024 Cecilia Courtney Back pain M54.9 [facility] [address] [facility] [address] 10/12/2024 Cecilia Courtney [facility] [address] [place] [facility] [address] 11/10/2024 Cecilia Courtney Back pain M54.9 [facility] [address] [facility] [place] [address] 12/19/2024 Cecilia Courtney Back pain M54.9 [facility] [address] [facility] [place] [address] 01/19/2025 Alan Hoy Back pain M54.[address] [facility] [address] [facility] [address] 03/28/2025 Cecilia Courtney [facility] [address] [facility] [place] [address] 03/31/2025 Cecilia Courtney Back pain M54.9 Assessments Encounter Date Diagnosis [...] M54.9) 01/19/2025 Back pain (ICD-10 - M54.9) 03/31/2025 Back pain (ICD-10 - M54.9) 06/24/2024 Back [...] Name Order Date Covid-19 PCR ([facility]) 08/01/2024 Insurance Providers Payer Name Payer Address Payer Phone Subscriber Number Group Number Insured Name Patient Relationship to Insured Coverage Start Date Coverage End Date [address] [address] [place] [address] [id number] Sofia Mcgowan Self - patient is the insured Medical (General) History Medical History History ICD Code anxiety Depression Surgical History Surgery Date(Month/Year) c section tonsils removed wisdom teeth removed
--- OUTSIDE RECORDS SUMMARY | 2025-04-24 08:01 | XMS_ITS | Encounter Summary ---
Author Organization [facility] Address [address] [facility] [place] [address] Care Team Providers Care Chick Sexer Name Role Phone Unavailable Primary Care Provider Unavailabl e Encounter Details Date Type Department Care Team (Late st Contact Info) Description 03/30/2025 Abstract [facility] [address] [place] [address] Jorge Rose, DO [address], [place] [address] Social History Tobacco Use Types Packs/Day Years [...] Description 04/24/2025 9:10 AM EDT Routine [facility] [address] [place] [address] Jorge Rose, DO [address], [facility] documented as of this encounter Visit Diagnoses Not on filedocumented in this encounter
--- OUTSIDE RECORDS SUMMARY | 2025-04-24 08:01 | XMS_ITS | Encounter Summary ---
Author Organization [facility] Address [address] [facility] [place] [address] Care Team Providers Care Senior Data Mining Analyst Name Role Phone Unavailable Primary Care Provider Unavailabl e Encounter Details Date Type Department Care Team (Late st Contact Info) Description 03/30/2025 Abstract [facility] [address] [place] [address] Jorge Rose, DO [address], [place] [address] Social History Tobacco Use Types Packs/Day Years [...] Description 04/24/2025 9:10 AM EDT Routine [facility] [address] [place] [address] Jorge Rose, DO [address], [facility]11 documented as of this encounter Visit Diagnoses Not on filedocumented in this encounter
--- OUTSIDE RECORDS SUMMARY | 2025-04-24 08:01 | XMS_ITS | Patient Health Record ---
Author Organization [facility] Address [address] [place] [address] Care Team Providers Care Hydrogen Braze Furnace Operator Name Role Phone Dr. Pablo Arreola Primary Care Provider [phone] Reason For Referral No Information Plan Of Treatment No Information Insurance Providers Payer Name Payer Address Payer Phone Subscriber Number Group Number Insured Name Patient Relationship to Insured Coverage Start Date Coverage End Date zDENTAL DQ [employer] [address] [place] [address] [id number] FELICIANOMARTINEE Self - patient is the insured 2 zDental MEDICAID [facility] after [employer] [address] [place] [address] [id number] FELICIANO XENIA Self - patient is the insured 2
--- OUTSIDE RECORDS SUMMARY | 2025-04-24 08:01 | XMS_ITS | Clinical Summary ---
Author Organization [facility] Address [address] [place] [address] Care Team Providers Care Ward Helper Name Role Phone Unavailable Primary Care Provider [...]
--- OUTSIDE RECORDS SUMMARY | 2025-04-24 08:01 | XMS_ITS | Encounter Summary ---
Author Organization [facility] Address [address] [facility] [address] Care Team Providers Care Technical Support Specialist Name Role Phone Unavailable Primary Care Provider Unavailabl e Encounter Details Date Type Department Care Team (Late st Contact Info) Description 04/03/2025 Abstract [facility] [address] [place] [address] Jorge Rose, DO [address], [place] [address] Social History Tobacco Use Types Packs/Day Years [...] [facility] [address] [place] [address] Jorge Rose, DO [address], [facility]11 documented as of this encounter Visit Diagnoses Not on filedocumented in this encounter
--- OUTSIDE RECORDS SUMMARY | 2025-04-24 08:01 | XMS_ITS | Encounter Summary ---
Author Organization [facility] [employer] Address [address] [place] [address] Care Team Providers Care Chief Engineer Research Name Role Phone Unavailable Primary Care Provider Unavailabl e Reason for Visit * Reason Onset Date Comments Advice Only 01/09/2022 Encounter Details Date Type Department Care Team (Late st Contact Info) Description 01/09/2022 Telephone Central Scheduling [address] [place] [address] Consult, Oncology [place] [address] Advice Only Social History Tobacco Use Types [...] Miscellaneous Notes * Telephone Encounter - Sudha Buhcanan RN - 01/09/2022 1:40 PM EST Ok [...]
[2025-04-24 08:48] LABS: BOX Test Reference Lab UNITY; BOX Test Sent Out UNITY
[2025-04-24 08:49] LABS: Basophils Percent Auto 0.4 % (0.2-2.0); Eosinophils Absolute Auto 0.2 10^3/uL (0.0-0.7); Eosinophils Percent Auto 1.6 % (0.9-7.0); Hematocrit 41.4 % (36.0-48.0); Hemoglobin 13.9 g/dL (12.0-16.0); Immature Granulocytes Abs Auto 0.05 10^3/uL (0.00-0.03); Immature Granulocytes Pct Auto 0.4 % (0.0-0.5); Lymphocytes Absolute Auto 2.1 10^3/uL (1.2-3.8); Lymphocytes Percent Auto 18.9 % (20.5-60.0); Mean Corpuscular HGB Conc 33.6 g/dL (29.9-35.2); Mean Corpuscular Hemoglobin 31.4 pg (26.7-34.0); Mean Corpuscular Volume 93.7 fL (81.0-99.0); Mean Platelet Volume 11.8 fL (9.5-13.5); Monocytes Absolute Auto 0.6 10^3/uL (0.3-0.8); Monocytes Percent Auto 5.3 % (1.7-12.0); Neutrophils Absolute Auto 8.2 10^3/uL (1.4-6.5); Neutrophils Percent Auto 73.4 % (43.0-75.0); Platelet Count 273 10^3/uL (150-450); Red Blood Count 4.42 10^6/uL (4.20-5.40); Red Cell Distribution Width 13.3 % (11.0-15.0); White Blood Count 11.2 10^3/uL (4.0-11.0)
[2025-04-24 09:02] LABS: Amphetamine Screen Urine NEGATIVE (NEGATIVE); Barbiturates Screen Urine NEGATIVE (NEGATIVE); Benzodiazepines Screen Urine NEGATIVE (NEGATIVE); Buprenorphine Screen Urine NEGATIVE (NEGATIVE); Cannabinoid Screen Urine POSITIVE (NEGATIVE); Cocaine Screen Urine NEGATIVE (NEGATIVE); Methadone Screen Urine NEGATIVE (NEGATIVE); Methamphetamines Screen Urine NEGATIVE (NEGATIVE); Opiate Screen Urine NEGATIVE (NEGATIVE); Oxycodone Screen Urine NEGATIVE (NEGATIVE); Phencyclidine Screen Urine NEGATIVE (NEGATIVE); Tricyclic Antidepressant Urine NEGATIVE (NEGATIVE)
[2025-04-24 09:34] LABS: Estimated Average Glucose 100 mg/dL; Glycohemoglobin A1C 5.1 % (4.5-6.2)
[2025-04-25 05:07] LABS: HIV Ab/p24 Ag Screen Non Reactive (Non Reactive)
[2025-04-25 06:09] LABS: HBsAg Screen Negative (Negative); HCV Ab Non Reactive (Non Reactive)
[2025-04-25 11:08] LABS: Rapid Plasma Reagin, Quant Non Reactive titer (NonRea<1:1)
[2025-04-27 15:09] LABS: Cannabinoid Positive (.); Carboxy THC Conf, MS, UR 59 ng/mL (Cutoff=10)
== END 2025-04-24 07:58 | disposition home or self-care (01) ==
LOC: LAB 07:58
PROVIDERS: PCP Nurse Practitioner Family; Visit Provider Obstetrics & Gynecology
DX: Z34.01 Encounter for supervision of normal first pregnancy, first trimester (principal); Z36.0 Encounter for antenatal screening for chromosomal anomalies; N92.6 Irregular menstruation, unspecified
CPT/HCPCS: 36415; 80307; 80349; 83036; 85025; 86592; 86762; 86803; 86850; 86900; 86901; 87086; 87340; 87389

== ENCOUNTER 2025-05-23 12:29 | Outpatient (REF) | payer OTHER, SELFPAY ==
[2025-05-26 12:08] LABS: Age Gdln ACOG Testing Note (.); IGP, rfx Aptima HPV ASCU Note (.)
== END 2025-05-23 12:30 | disposition home or self-care (01) ==
LOC: LAB 12:29
PROVIDERS: PCP Nurse Practitioner Family; Visit Provider Physician Assistant
DX: Z01.419 Encounter for gynecological examination (general) (routine) without abnormal findings (principal)
CPT/HCPCS: 88175

== ENCOUNTER 2025-06-20 11:43 | Outpatient (OUT) | payer OTHER, MEDICAID, SELFPAY ==
--- OUTSIDE RECORDS SUMMARY | 2025-06-20 14:45 | XMS_ITS | CCD ---
Author Organization [facility] Care Team Providers Care Operating Manager Name Role Phone ARGUELLO JAGDISH CHILO Unavailable Unavailable Wandy Dorado Primary Care Physician None, No PCP Unavailable Unavailable Unavailable Unavailable DO Shauna Atkinson Primary Care Provider [phone] DO Martinez Kumar Emergency Provider Betty, [facility] Payton Brooks Emergency Provider [phone] DO Joseph Wallace Emergency Provider [phone] DR GIOVANA GILMORE Admitting Unavailabl cecilia GILMORE, DR GIOVANA Kirby Attending Unavailabl e MISC, DR ISRAEL Primary Care Unavailable MISC, DR SIRAEL Primary Care Unavailable PAY ., DR ALMAZAN Admitting Unavailable PAY ., DR ALMAZAN Attending Unavailable MARYJT, DR SHAUNA Foss Consulting Unavailable PAY ., DR ALMAZAN Consulting [facility]available [facility] Primary Care Unavailable VIDAL BASS [...] Unavailable DO Shauna Atkinson Primary Care Provider [phone] MD Alton Boss Emergency Provider Cheng Cruz Unavailable Kayley Mo Unavailable Alton Boss Attending Unavailable Shauna Atkinson Primary Care Unavailable Alton Boss Admitting Unavailable Joseph Wallace Admitting Unavailable Joseph Wallace Attending Unavailable Shauna Atkinson Primary Care Unavailable TIBURCIO CRAWFORD Attending Unavailable SHAUNA ATKINSON Referring Unavailable SHAUNA ATKINSON Primary Care Unavailable TIBURCIO CRAWFORD Referring Unavailable SHAUNA ATKINSON Primary Care Unavailable TIBURCIO CRAWFORD Attending Unavailable TIBURCIO CRAWFORD Referring Unavailable SHAUNA ATKINSON Primary Care Unavailable Shauna Atkinson DO Primary Care Provider Unavailable Primary Care Provider UnavailJORGE Palacios Attending Unavailable WANDY KELLY Attending Unavailable Allergies Allergy Classification Reported Allergen(s) Allergy Type Date of Onset Reaction(s) Facility (2 sources) Penicillin; Translations: [penicillin] Drug Allergy Anaphylaxis (disorder) [facility] (1 source) Pollen Drug allergy Respiratory function (observable entity) [facility] (5 sources) Penicillins Cross [employer]; Translations: [Penicillins [employer]] Allergy to drug (finding) [facility] Work Phone: (14 sources) Ketorolac; Translations: [ketorolac] Drug Allergy 04-29-20 hives, Anaphylaxis [facility] (20 sources) Penicillins; Translations: [Penicillins] Propensity to adverse reactions 01-22-20 Anaphylaxis [facility] (20 sources) traMADol; Translations: [tramadol] Drug Allergy 04-29-20 Anaphylaxis [facility] (1 source) Ketorolac Drug Allergy [facility] Repository (3 sources) penicillAMINE Drug Allergy Unknown [facility] Other (1 source) penicillAMINE Drug Allergy 12-01-19 [facility] Repository (6 sources) Adhesive agent; Translations: [ADHESIVE] Propensity to adverse reactions to drug (disorder) 01-29-20 Other (See Comments) [facility] Repository (6 sources) Pollen; Translations: [POLLEN EXTRACTS] Propensity to adverse reactions to drug (disorder) 04-07-20 [facility] (13 sources) Ketorolac trometamol Propensity to adverse reactions 03-30-20 [facility] (2 sources) Pollen Propensity to adverse reactions 04-07-20 [facility] (2 sources) Wound Dressing Adhesive Propensity to adverse reactions 01-29-20 [facility] Medications Current Medications Medication Drug Class(es) Dates [...] P O Q4H 3 September 24, 2023 [id number] actuat albuterol 0.09 mg/actuat metered dose [...] oral tablet (1 source) alpha-Adrenergic Agonist, Uncompetitive X-hxmdsv-P-aspartate Receptor Antagonist, Sigma-1 Agonist Start: 12-01-2023 take [...] 01-09-2023 Marijuana Active January 09, 2023 12:00am metoclopramide 10 mg oral tablet (11 sources) Dopamine-2 Receptor Antagonist Start: 04-03-2025 End: 05-03-2025 take 1 tablet by mouth in the morning, then take 1 tablet by mouth in the evening, then take 1 tablet by mouth at bedtime metoclopramide (Reglan) 10 MG tablet Indications: Nausea and vomiting, unspecified vomiting type Take 1 tablet (10 mg) by mouth in the morning and 1 tablet (10 mg) in the evening and 1 tablet (10 mg) before bedtime. 90 tablet 2 04/03/2025 Active Holt (No Known Home Meds) (1 source) Start: 10-13-2022 Holt (No Known Home Meds) Active October 13, 2022 12:00am omeprazole 20 mg delayed release oral capsule (7 sources) Proton Pump Inhibitor Start: 05-23-2025 End: 06-22-2025 take 1 capsule by mouth before mealtime omeprazole (PriLOSEC) [address] capsule Indications: Gastroesophageal Reflux Disease , Heartburn Take 1 capsule (20 mg) by mouth in the morning. Take before meals. Do not crush or chew. 30 capsule 3 05/23/2025 06/22/2025 Active ondansetron 4 mg disintegrating oral tablet (15 sources) Serotonin-3 Receptor Antagonist Start: 03-30-2025 End: 04-29-2025 take 1 tablet by mouth every six hours as needed for nausea and vomiting and nausea and nausea ondansetron ODT (Zofran-ODT) 4 MG disintegrating tablet Indications: Nausea Take 1 tablet (4 mg) by mouth every 6 (six) hours if needed for nausea or vomiting 30 tablet 3 03/30/2025 04/29/2025 Active Start: 01-20-2023 take 1 tablet by marlene th once daily as needed for nausea ondansetron [...] tablet Orally BID for 5 Nov, Active pregabalin 200 mg oral capsule (14 sources) Start: 01-19-2025 take 1 capsule by mouth once daily pregabalin (Lyrica) 200 MG capsule Take 200 mg by mouth Daily 01/19/2025 Active Vit-Fe Fumarate-FA ( Vitamins) 28-0.8 MG tablet (14 sources) Start: 03-30-2025 End: 03-30-2026 take 1 tablet by mouth once daily Vit-Fe Fumarate-FA ( Vitamins) 28-0.8 MG tablet Indications: Missed menses , , unspecified gestational age ([facility] , Encounter for supervision of normal first in first trimester ([facility]) , Nausea Take 1 tablet by mouth Daily 30 tablet 3 03/30/2025 03/30/2026 Active Start: 03-30-2025 End: 03-30-2026 take 1 tablet by mouth once daily Vit-Fe Fumarate-FA ( Vitamins) 28-0.8 MG tablet Indications: Missed menses , , unspecified gestational age , Encounter for supervision of normal first in first trimester , Nausea Take 1 tablet by mouth Daily 30 tablet 3 03/30/2025 03/30/2026 Active promethazine hydrochloride 12.5 mg oral tablet (7 sources) Phenothiazine Start: 05-23-2025 take 1 tablet by mouth every six hours as needed for nausea and nausea, then take 1 tablet by mouth every six hours as needed for nausea and nausea promethazine (Phenergan) 12.5 MG tablet Indications: Gastroesophageal reflux in ([facility]) Take 1 tablet (12.5 mg) by mouth every 6 (six) hours if needed for nausea or vomiting for up to 30 doses Take 1 tablet by mouth every 6 hours as needed for nausea. 30 tablet 2 05/23/2025 Active Tri-Sprintec 35 mcg Tab (1 source) Start: 05-22-2021 take 1 tablet by mouth once daily Tri-Sprintec 35 mcg Tab = 1 tab(s), Oral, Daily, NEED to schedule appt. before this refill runs out, # 84 tab(s), Refills(s) 1, Pharmacy: [facility] [id number], 150, cm, 04/29/21 15:53:00 EDT, [...] Start: 04-10-2022 take 1 capsule by mo [facility] once daily Doxycycline Hyclate 100 [...] a day Not-Taking/PRN take [facility]four [facility] Sprintec 28 0.25-35 MG-MCG [...] pain; Translations: [Left lower quadrant pain] Onset: 3 Episodic Acute bronchitis (1 source) Acute bronchitis due to other specified organisms Episodic Administrative/social admission (2 sources) Medication care plan discussed with patient; Translations: [Other specified counseling] 04-03-2025 Episodic Conditions associated with dizziness or vertigo (1 source) Dizziness and giddiness; Translations: [Dizziness and giddiness] Onset: 8 Episodic E Codes: Fall (1 source) Fall (on) (from) unspecified stairs and steps, initial encounter; Translations: [FALL ON FROM UNS STAIRS STEPS INIT] Onset: 3 Episodic External cause codes: Transport; not MVT (1 source) Animal-rider injured by fall from or being thrown from horse in noncollision accident, initial encounter; Translations: [Animl-ridr injured by fall fr horse in nonclsn acc, init] Onset: 8 Headache; including migraine (1 source) Headache; Translations: [Headache] Onset: 8 Episodic Immunizations and screening for infectious disease (4 sources) Exposure to sexually transmissible disorder; Translations: [Contact with and (suspected) exposure to infections with a predominantly sexual mode of transmission] 05-23-2025 Episodic Intracranial injury (1 source) Concussion with loss of consciousness of 30 minutes or less, initial encounter; Translations: [Concussion w LOC of 30 minutes or less, init] Onset: 8 Episodic Joint disorders and dislocations; trauma-related (8 sources) Internal derangement of left knee; Translations: [Unspecified internal derangement of left knee] Chronic Lymphadenitis (1 source) Nonspecific mesenteric lymphadenitis; Translations: [NONSPEC MESENTERIC LYMPHADENITIS] Onset: 3 Episodic Menstrual disorders (8 sources) Dysmenorrhea, unspecified; Translations: [Dysmenorrhea] Onset: 3 01-13-2024 Chronic Nausea and vomiting (3 sources) Nausea; Translations: [Nausea] 03-30-2025 Episodic Nonspecific chest pain (1 source) Chest pain; Translations: [Chest pain, unspecified] Onset: 2 Episodic Other aftercare (1 source) Other long term acute care registered nurse (current) drug therapy; Translations: [OTH JAIL CURRENT DRUG THERAPY] Onset: 3 Episodic Other aftercare (3 sources) Patient encounter status; Translations: [Other long term acute care registered nurse (current) drug therapy] 01-19-2024 Episodic Other bone disease and musculoskeletal deformities (2 sources) Chondromalacia, left knee Episodic Other complications of (2 sources) Gastroesophageal reflux disease in ; Translations: [Diseases of the digestive system complicating , unspecified trimester] 05-23-2025 Episodic Other connective tissue disease (3 sources) Pain in right hand; Translations: [PAIN IN RIGHT HAND] Onset: 3 Episodic Other female genital disorders (2 sources) Vaginal bleeding; Translations: [Abnormal uterine and vaginal bleeding, unspecified] 01-09-2023 Chronic Other female genital disorders (4 sources) Vaginal discharge; Translations: [Other specified noninflammatory disorders of vagina] 05-23-2025 Episodic Other gastrointestinal disorders (1 source) Constipation, unspecified; Translations: [CONSTIPATION UNSPECIFIED] Onset: 3 Episodic Other nervous system disorders (6 sources) Postoperative pain ; Translations: [Other acute postoperative pain] 04-29-2022 Episodic Other nervous system disorders (1 source) Other acute postprocedural pain; Translations: [OTHER ACUTE POSTPROCEDURAL PAIN] Onset: 3 Episodic Other non-traumatic joint disorders (1 source) Pain in right shoulder; Translations: [Pain in right shoulder] Onset: 8 Episodic Other nutritional; endocrine; and metabolic disorders (4 sources) Obese class I; Translations: [Obesity, unspecified] Onset: 3 12-10-2022 Chronic Other and delivery including normal (8 sources) ; Translations: [Encounter for supervision of normal , unspecified, unspecified trimester] 03-30-2025 Episodic Other skin disorders (5 sources) Epidermoid cyst; Translations: [Epidermal cyst] Onset: 2 Episodic Other skin disorders (5 sources) Infection of sebaceous cyst; Translations: [Sebaceous cyst] Episodic Residual codes; unclassified (2 sources) Gestation period, 9 weeks; Translations: [9 weeks gestation of ] 04-24-2025 Episodic Residual codes; unclassified (2 sources) Gestation period, 13 weeks; Translations: [13 weeks gestation of ] 05-23-2025 Episodic Residual codes; unclassified (2 sources) Gestation period, 17 weeks; Translations: [17 weeks gestation of ] 06-20-2025 Episodic Skin and subcutaneous tissue infections (8 sources) Abscess; Translations: [Cutaneous abscess, unspecified] 01-28-2022 Episodic Spondylosis; intervertebral disc disorders; other back problems (2 sources) Cervicalgia; Translations: [Cervicalgia] Onset: 8 Episodic Sprains and strains (2 sources) Sprain of knee; Translations: [Sprain of unspecified site of left knee, initial encounter] Onset: 3 09-24-2023 Episodic Substance-related disorders (5 sources) Nicotine dependence, cigarettes, uncomplicated; Translations: [Smoker] Onset: 3 12-10-2022 Chronic Superficial injury; contusion (1 source) Contusion of right hand, initial encounter; Translations: [CONTUSION RIGHT HAND INITIAL ENC] Onset: 3 Episodic Unclassified (2 sources) COUGH, UNSPECIFIED; Translations: [COUGH, UNSPECIFIED] Onset: 2 Unclassified (1 source) Pain in left knee; Translations: [Pain in left knee] Onset: 3 Unclassified (1 source) Unspecified ovarian cyst, left side; Translations: [Unspecified ovarian cyst, left side] Onset: 3 Unclassified (1 source) Annual Exam Onset: 4 Unclassified (1 source) Gynecologic Exam Onset: 4 Viral infection (3 sources) Disease caused by [...] Test Name Value Interpretation Reference Range Facility Urinalysis macro (dipstick) panel (U)on 06-20-2025 Bilirubin, UA Negative Negative - 4(70) +++ mg/dL [facility] Blood, UA Negative Negative - 50 Mando/mcL [facility] Clarity, UA Clear [facility] Color, UA Yellow [facility] Glucose, UA Negative Negative - 1999(110) ++++ mg/dL [facility] Interpretation and review of laboratory results Normal [facility] Ketones, UA Negative Negative - 160(16) ++++ mg/dL [facility] Leukocytes, UA Negative Negative - 500+++ Maddy/mcL [facility] Nitrite, UA Negative Negative - Positive [facility] pH, UA 6 5 - 9 [facility] Protein, UA Negative Negative - 1999(20) ++++ mg/dL [facility] Spec Grav, UA 1.01 1 - 1.03 [facility] Urobilinogen, UA 1.0 0.2 - 12 mg/dL [facility] IGP,APTIMA HPV,AGE GDLNon AGE GDLN ACOG TESTING Note . [facility] Comment on above: TESTS RESULT FLAG UN ITS REF RANGE LAB Clinician Provided Cytology Information Source.............Vagina Other.............. No. of containers..01 ThinPrep Vial Age Debrao ACOG Phuong... FLAG LEGEND: L-Low Normal,H-High Normal,LL-Alert Low,HH-Alert High <-Panic Low,>-Panic High,A-Abnormal,AA-Critical Abnormal Performed at: 01 =[facility] [address] [place] [id number] Miranda Carson MD, IGP, RFX APTIMA HPV ASCU Note . [facility] Comment on above: TESTS RESULT FLAG UN ITS REF RANGE LAB DIAGNOSIS: 02 NEGATIVE FOR INTRAEPITHELIAL LESION OR MALIGNANCY. FUNGAL ORGANISMS MORPHOLOGICALLY CONSISTENT WITH SONYA SPECIES ARE PRESENT. TRICHOMONAS VAGINALIS IS PRESENT. THIS SPECIMEN WAS RESCREENED PART OF OUR EXPEDITER PROGRAM. Specimen adequacy: 02 Satisfactory for evaluation. Endocervical and/or squamous metaplastic cells (endocervical component) are present. Performed by: 02 Leigh Wright, Personalized Living Assistant (ASCP) QC reviewed by: 02 America Nielsen Personalized Living Assistant (ASCP) . 02 Note: Note 02 The Pap smear is a screening test designed to aid in the detection of premalignant and malignant conditions of the uterine cervix. It is not a diagnostic procedure and should not be used as the sole means of detecting cervical cancer. Both false-positive and false-negative reports do occur. Test Methodology: Note 02 This liquid based ThinPrep(R) pap test was screened with the use of an image guided system. . 02 The HPV DNA reflex criteria were not met with this specimen result therefore, no HPV testing was performed. FLAG LEGEND: L-Low Normal,H-High Normal,LL-Alert Low,HH-Alert High <-Panic Low,>-Panic High,A-Abnormal,AA-Critical Abnormal Performed at: [address] [id number] Miranda Carson MD, Performed at: = - [facility] [id number] Personnel Assistant: Miranda Carson MD, Phone: [phone] Performed at: [facility] [id number] Personnel Assistant: Miranda Carson MD, Phone: [phone] SPATULA-[facility]ONE VAGINA [facility] RECURRENT VAGINITIS (HTRX)on 05-24-2025 ATOPOBIUM VAGINAE 22.509 Abnormal [facility] ATOPOBIUM VAGINAE Detected Abnormal [facility] BVAB 2,3 (BACTERIAL VAGINOSIS ASSOCIATED BACTERIA 2, 3); MOBILUNCUS SPP 12.456 Abnormal [facility] BVAB 2,3 (BACTERIAL VAGINOSIS ASSOCIATED BACTERIA 2, 3); MOBILUNCUS SPP Detected Abnormal [facility] SONYA ALBICANS, PARAPSILOSIS, TROPICALIS 0 [facility] SONYA ALBICANS, PARAPSILOSIS, TROPICALIS Not detected [facility] SONYA GLABRATA 0 [facility] SONYA GLABRATA Not detected [facility] SONYA KRUSEI 0 [facility] SONYA KRUSEI Not detected [facility] CHLAMYDIA TRACHOMATIS 0 [facility] CHLAMYDIA TRACHOMATIS Not detected N [facility] ERMB, C; MEFA 20.08 Abnormal [facility] ERMB, C; MEFA Detected Abnormal [facility] GARDNERELLA VAGINALIS 21.276 Abnormal [facility] GARDNERELLA VAGINALIS Detected Abnormal [facility] Interpretation and review of laboratory results Abnormal [facility] MEGASPHAERA (TYPES 1, 2) 14.865 Abnormal [facility] MEGASPHAERA (TYPES 1, 2) Detected Abnormal [facility] MYCOPLASMA GENITALIUM 0 [facility] MYCOPLASMA GENITALIUM Not detected N [facility] NEISSERIA GONORRHOEAE 0 [facility] NEISSERIA GONORRHOEAE Not detected N [facility] TET B, TET M 21.826 Abnormal [facility] TET B, TET M Detected Abnormal [facility] TRICHOMONAS VAGINALIS 19.787 Abnormal [facility] TRICHOMONAS VAGINALIS Detected Abnormal [facility] Urinalysis macro (dipstick) panel (U)on 05-23-2025 Bilirubin, UA Negative Negative - 4(70) +++ mg/dL [facility] Blood, UA Negative Negative - 50 Mando/mcL [facility] Clarity, UA Clear [facility] Color, UA Yellow [facility] Glucose, UA Negative Negative - 2000(110) ++++ mg/dL [facility] Interpretation and review of laboratory results Abnormal [facility] Ketones, UA Negative Negative - 160(16) ++++ mg/dL [facility] Leukocytes, UA Negative Negative - 500+++ Maddy/mcL [facility] Nitrite, UA Negative Negative - Positive [facility] pH, UA 6.5 5 - 9 [facility] Protein, UA Negative Negative - 2000(20) ++++ mg/dL [facility] Spec Grav, UA 1.02 1 - 1.03 [facility] Urobilinogen, UA 0.2 0.2 - 12 mg/dL [facility] BOX TESTon 04-24-2025 BOX TEST SENT OUT [facility] BOX1 [facility] BOX2 04/24/2025 [facility] 025 US OB TRANSVAGINAL EXAM: US OB TRANSVAG INAL HISTORY: Viability, low heart rate. COMPARISON: Ob [...] II, MD, PHD at 12-Apr-2025 08:23:25 AM [facility] Normal Not Available Comment on above: Order Comment: US OB VIABILITY PLEASE PERFORM TRANSVAGINAL ULTRASOUND IF INDICATED Patient's last menstrual period was 02/11/2025. HCG ( test) Ql (U)o n 03-30-2025 Interpretation and review of laboratory results Abnormal [facility] Preg Test, Ur Positive Negative [facility] OB TRANSVAGINALon 025 US OB TRANSVAGINAL EXAM: US OB TRANSVAG INAL HISTORY: Dating. COMPARISON: None available. TECHNIQUE: Two-dimensional transvaginal grayscale ultrasound imaging of the pelvis was performed. Color Doppler evaluation of the ovaries was also performed. FINDINGS: The uterus demonstrates a normal homogeneous echotexture. The cervix measures 4.1 cm in length and the cervical os is closed. The right ovary measures 4.4 x 2.2 x 3.5 cm and demonstrates a normal echotexture. There is normal color Doppler flow. The left ovary measures 2.7 x 1.4 x 2.6 cm and demonstrates a normal echotexture. There is normal color Doppler flow. No fluid is present within the cul-de-sac. There is a single, live intrauterine gestation identified with a heart rate of 101 beats per minute and a crown-rump length measurement of 0.2 cm, correlating to a gestational age of 5 weeks 5 days (+/- 4 days). There is no subchorionic hemorrhage visualized. A yolk sac is visualized. IMPRESSION: 1. Single, live intrauterine gestation 6 weeks, 5 days by LMP. Today's ultrasound measurements correlate with a gestational age of 5 weeks 5 days (+/- 4 days). JONH by today's ultrasound is 11/25/2025. 2. Normal color Doppler evaluation of the bilateral ovaries. Interpreted by: Electronically signed by BRAD CALDERÓN II, MD, PHD at 31-Mar-2025 11:53:30 AM [facility] Normal Not Available Comment on above: Order Comment: US OB TRANSVAGINAL No LMP recorded. Urinalysis macro (dipstick) panel (U)on 03-30-2025 Bilirubin, UA Negative Negative - 4(70) +++ mg/dL [facility] Blood, UA Positive Negative - 50 Mando/mcL [facility] Comment on above: trace-intact Clarity, UA Clear [facility] Color, UA Yellow [facility] Glucose, UA Negative Negative - 1999(110) ++++ mg/dL [facility] Interpretation and review of laboratory results Abnormal [facility] Ketones, UA Negative Negative - 160(16) ++++ mg/dL [facility] Leukocytes, UA Negative Negative - 500+++ Maddy/mcL [facility] Nitrite, UA Negative Negative - Positive [facility] pH, UA 5.5 5 - 9 [facility] Protein, UA Negative Negative - 1999(20) ++++ mg/dL [facility] Spec Grav, UA 1.015 1 - 1.03 [facility] Urobilinogen, UA 0.2 0.2 - 12 mg/dL [facility] US PELVIC WITH TRANSVAGINALo n 01-21-2024 US [...] cul-de-sac.. IMPRESSION: Unremarkable pelvic echo.. Finalized by Jdoi Parmar MD on 01/20/2024 11:58 PM Normal [facility] Cytologyon 01-13-2024 Cytology Normal [facility] Comment on above: Result Comment: [facility] [address] [place] [address] Gynecologic Cytology Consultation Patient Name:SOFIA ANDREWS:2000 (Age: 23)Gender:FTaken:01/13/2024eported:01/27/2024hysician(s):Tiburcio Crawford DO ([phone])Copy To: Rec. #:[id number]: #[id number] Final Cytologic Interpretation ThinPrep Pap Test (Cervical): Satisfactory for evaluation. A transformation zone component is present. NEGATIVE FOR INTRAEPITHELIAL LESION OR MALIGNANCY. jv/01/27/2024 Interpretation performed at [facility], [address] [place] [address], License number: [id number]. Electronically Signed Out By CELSO Major(ASCP) Date of Last Menstrual Period: 01/08/24 Other Clinical Conditions: Z01.419 [employer] Developer exam wo/abn findings Source of Specimen ThinPrep Pap Test (Cervical) Thin Prep Pap (ORDER RUNNER) Fee Code(s): G0145 Outside Recordson 12-02-2023 Outside Records [id number]#1.00OTGTI [facility] COVID + FLU Quick Testingon 12-01-2023 SARS-CoV-2 (COVID-19) RNA HUMBERTO+probe Ql (Unsp spec) Negative [facility] [employer] Other COVID + FLU Quick Testing Negative [facility] [employer] Other Outside Recordson 10-01-2023 Outside Records [id number]#1.00OTGTI [facility] XR knee LT 4V*on 09-24-2023 XR knee LT 4V* [facility] [place] [address] [place] [address] XRay Report Signed Patient: Sofia Andrews MR#: [id number] : 2000 Acct:[id number] Age/Sex: 22 / F ADM Date: 09/24/23 Loc: ER Room: Type: [facility] ER Attending Dr: Copies to: [...] Curiel Jr., D.OHawk09/24/2023 9:27 AM Dictation Location: [place] [address] Transcribed By: [facility] 09/24/23926 Dictated By: Pablo Curiel Jr, DO 09/24/23926 Signed By: 09/24/23926 [facility] [place] [facility] Outside Recordson 02-19-2023 Outside Records [id number]#1.00OTGT [facility] Outside Records [id number]#1.00OTGT IFF [facility] Outside Records [id number]#1.00OTGT IFF [facility] Outside Recordson 01-12-2023 Outside Records [id number]#1.00OTGTI FF [facility] Activated partial thrombopla stin time (aPTT) in platelet poor plasma by coagulation aOrdered By: Joseph Wallace on 01-09-2023 aPTT Coag (PPP) [Time] 30.5 s 25.1-36.5 [facility] [place] Alanine aminotransferase [En zymatic activity/volume] in Serum or PlasmaOrdered By: Joseph Wallace on 01-09-2023 ALT [Catalytic activity/Vol] 16 U/L 7-52 [facility] Albumin [Mass/volume] in Ser um or Plasma by Bromocresol green (BCG) dye binding methoOrdered By: Joseph Wallace on 01-09-2023 Albumin BCG dye [Mass/Vol] 4.4 g/dL 3.5-5.7 [facility] Alkaline phosphatase [Enzyma tic activity/volume] in Serum or PlasmaOrdered By: Joseph Wallace on 01-09-2023 ALP [Catalytic activity/Vol] 77 U/L 34-104 [facility] Amphetamine Screen Ql (U)Ord ered By: Joseph Wallace on 01-09-2023 Amphetamines Ql (U) Negative Negative [facility] Aspartate aminotransferase [ Enzymatic activity/volume] in Serum or PlasmaOrdered By: Joseph Wallace on 01-09-2023 AST [Catalytic activity/Vol] 16 U/L 13-39 [facility] Automated erythrocytes count in urine sediment (number/area)Ordered By: Joseph Wallace on 01-09-2023 RBC Auto (Urine sed) [#/Area] 10-19 [HPF] 0-4 [facility] Automated leukocytes count i n urine sediment (number/area)Ordered By: Joseph Wallace on 01-09-2023 WBC Auto (Urine sed) [#/Area] 0-1 [HPF] 0-4 [facility] Barbiturates [Presence] in U rine by Screen methodOrdered By: Joseph Wallace on 01-09-2023 Barbiturates Screen Ql (U) Negative Negative [facility] Basic Metabolic Panelon 12-31 Anion gap [Moles/Vol] 12.6 mmol/L Normal 6.0-15.0 [facility] Comment on above: Performed By: #### P T, HEPATIC, PTT, BMP, CBC, LIPASE #### [facility] [address] Calcium [Mass/Vol] 8.9 mg/dL Normal 8.6-10.3 [facility] Comment on above: Performed By: #### P T, HEPATIC, PTT, BMP, CBC, LIPASE #### [facility] [address] Chloride [Moles/Vol] 107 mmol/L Normal 98-107 [facility] Comment on above: Performed By: #### P T, HEPATIC, PTT, BMP, CBC, LIPASE #### [facility] [address] [place] [address] CO2 [Moles/Vol] 25.3 mmol/L Normal 21.0-31.0 [facility] Comment on above: Performed By: #### P T, HEPATIC, PTT, BMP, CBC, LIPASE #### [facility] [address] [place] [address] Creatinine [Mass/Vol] 0.57 mg/dL Low 0.60-1.20 [facility] Comment on above: Performed By: #### P T, HEPATIC, PTT, BMP, CBC, LIPASE #### [facility] [address] [place] [address] Creatinine Clr Calc Pharmacy 141.51 Normal [facility] Comment on above: Performed By: #### P T, HEPATIC, PTT, BMP, CBC, LIPASE #### [facility] [address] [place] [address] GFR/1.73 sq M.predicted MDRD (S/P/Bld) [Vol rate/Area] mL/min/{1.73_m2} Normal [facility] Comment on above: Performed By: #### P T, HEPATIC, PTT, BMP, CBC, LIPASE #### [facility] [address] Glucose [Mass/Vol] 85 mg/dL Normal 74-109 [facility] Comment on above: Result Comment: [facility] Glucose Reference Range is dependent on time and content of last meal. Glucose of more than 200 mg/dL in a nonstressed, ambulatory subject supports the diagnosis of Diabetes Mellitus. ADA recommended reference range Performed By: #### P T, HEPATIC, PTT, BMP, CBC, LIPASE #### [facility] [address] Potassium [Moles/Vol] 3.9 mmol/L Normal 3.5-5.1 [facility] Comment on above: Performed By: #### P T, HEPATIC, PTT, BMP, CBC, LIPASE #### [facility] [address] [place] [address] [place] Sodium [Moles/Vol] 141 mmol/L Normal 136-145 [facility] Comment on above: Performed By: #### P T, HEPATIC, PTT, BMP, CBC, LIPASE #### [facility] [address] [place] [address] [place] Urea nitrogen [Mass/Vol] 12 mg/dL Normal 7-25 [facility] Comment on above: Performed By: #### P T, HEPATIC, PTT, BMP, CBC, LIPASE #### [facility] [address] [place] [address] [place] Basophils Auto (Bld) [#/Vol] Ordered By: Joseph Wallace on 01-09-2023 Basophils (Bld) [#/Vol] 0.1 10*3/uL 0.0-0.2 [facility] Basophils/100 WBC Auto (Bld) Ordered By: Joseph Wallace on 01-09-2023 Basophils/100 WBC (Bld) 0.6 % . [facility] Benzodiazepines Screen Ql (U )Ordered By: Joseph Wallace on 01-09-2023 Benzodiazepines Ql (U) Positive Negative [facility] [place] Benzoylecgonine [Presence] i n Urine by Screen methodOrdered By: Joseph Wallace on 01-09-2023 Benzoylecgonine Screen Ql (U) Positive Negative [facility] Bilirubin Test strip Ql (U)O rdered By: Joseph Wallace on 01-09-2023 Bilirubin Ql (U) Negative Negative [facility] Bilirubin.direct [Mass/volum e] in Serum or PlasmaOrdered By: Joseph Wallace on 01-09-2023 Bilirubin.direct [Mass/Vol] 0.10 mg/dL 0.03-0.18 [facility] Bilirubin.total [Mass/volume ] in Serum or PlasmaOrdered By: Joseph Wallace on 01-09-2023 Bilirubin [Mass/Vol] 0.5 mg/dL 0.3-1.0 [facility] CBC AUTO DIFFon 01-09-2023 BASO # 0.1 103/ul Normal 0.0-0.1 [facility] Comment on above: Performed By: #### C BC #### [facility] [address] [address] [address] Cristopher Godoy Basophils/100 WBC (Bld) 0.6 % Normal 0.2-2.0 [facility] Comment on above: Performed By: #### C BC #### [facility] [address] [place] [address] [address] Cristopher Godoy EO # 0.4 103/ul Normal 0.0-0.7 [facility] Comment on above: Performed By: #### C BC #### [facility] [address] [place] [address] [address] Cristopher Godoy Eosinophils/100 WBC (Bld) 2.7 % Normal 0.9-7.0 [facility] Comment on above: Performed By: #### C BC #### [facility] [address] [place] [address] Dr. Cristopher Godoy Erythrocyte distribution width (RBC) [Ratio] 13.5 % Normal 11.0-15.0 [facility] Comment on above: Performed By: #### C BC #### [facility] [address] [place] [address] Dr. Cristopher Godoy Hematocrit (Bld) [Volume fraction] 42.2 % Normal 36.0-48.0 [facility] Comment on above: Performed By: #### C BC #### [facility] [address] [address] [address] Cristopher Godoy Hemoglobin (Bld) [Mass/Vol] 14.1 g/dL Normal 12.0-16.0 [facility] Comment on above: Performed By: #### C BC #### [facility] [address] [place] [address] Dr. Cristopher Godoy IG # 0.06 10e3/ul Critically high 0.00-0.03 [facility] Comment on above: Performed By: #### C BC #### [facility] [address] [place] [address] Dr. Cristopher Godoy IG % 0.4 % Normal 0.0-0.5 [facility] Comment on above: Performed By: #### C BC #### [facility] [address] [place] [address] Dr. Cristopher Godoy LYMPH # 3.8 103/ul Normal 1.2-3.8 [facility] Comment on above: Performed By: #### C BC #### [facility] [address] [place] [address] Dr. Cristopher Godoy Lymphocytes/100 WBC (Bld) 24.7 % Normal 20.5-60.0 [facility] Comment on above: Performed By: #### C BC #### [facility] [address] [place] [address] Dr. Cristopher Godoy MANUAL DIFF REQ NO Normal [facility] Comment on above: Performed By: #### C BC #### [facility] [address] [place] [address] Dr. Cristopher Godoy MCH (RBC) [Entitic mass] 30.5 pg Normal 26.7-34.0 [facility] Comment on above: Performed By: #### C BC #### [facility] [address] [place] [address] [address] Cristopher Godoy MCHC (RBC) [Mass/Vol] 33.4 g/dL Normal 29.9-35.2 [facility] Comment on above: Performed By: #### C BC #### [facility] [address] [place] [address] [address] Cristopher Godoy MCV (RBC) [Entitic vol] 91.3 fL Normal 81.0-99.0 [facility] Comment on above: Performed By: #### C BC #### [facility] [address] [place] [address] [address] Cristopher Godoy MONO # 0.9 103/ul Critically high 0.3-0.8 [facility] Comment on above: Performed By: #### C BC #### [facility] [address] [place] [address] [address] Cristopher Godoy Monocytes/100 WBC (Bld) 5.9 % Normal 1.7-12.0 [facility] Comment on above: Performed By: #### C BC #### [facility] [address] [place] [address] [address] Cristopher Godoy NEUT # 10.0 103/ul Critically high 1.4-6.5 [facility] Comment on above: Performed By: #### C BC #### [facility] [address] [address] [address] Cristopher Godoy Neutrophils/100 WBC (Bld) 65.7 % Normal 43.0-75.0 [facility] Comment on above: Performed By: #### C BC #### [facility] [address] [address] [address] Cristopher Godoy Platelet mean volume (Bld) [Entitic vol] 10.8 fL Normal 9.5-13.5 [facility] Comment on above: Performed By: #### C BC #### [facility] [address] [place] [address] [address] Cristopher Godoy PLT 338 103/ul Normal 150-450 [facility] Comment on above: Performed By: #### C BC #### [facility] [address] [place], [place] [address] Dr. Cristopher Godoy RBC 4.62 106/ul Normal 4.20-5.40 [facility] Comment on above: Performed By: #### C BC #### [facility] [address] [place], [place] [address] Dr. Cristopher Godoy WBC 15.3 103/ul Critically high 4.0-11.0 [facility] Comment on above: Performed By: #### C BC #### [facility] [address] [place], [place] [address] ABD/PELV W CONon 01-10-[address] ABD/PELV W CON EXAMINATION: CT ABD/ [...] SHERI ESCUDERO Date: 2023-01-09 04:[address] [facility] Calcium [Mass/volume] in Ser um or PlasmaOrdered By: Joseph Wallace on 01-09-2023 Calcium [Mass/Vol] 8.9 mg/dL 8.6-10.3 [facility] Cannabinoids [Presence] in U rine by Screen methodOrdered By: Joseph Wallace on 01-09-2023 Cannabinoids Screen Ql (U) Positive Negative [facility] Comment on above: These are unconfirme d results and should not be used for legal purposes. Drug Cut-Off Concentration: AMPH 1000 ng/mL ISAURO 200 ng/mL YULY 200 ng/mL COCM 300 ng/mL OP 300 ng/mL PCP 25 ng/mL THC 20 ng/mL Carbon dioxide, total [Moles /volume] in Serum or PlasmaOrdered By: Joseph Wallace on 01-09-2023 CO2 [Moles/Vol] 25.3 mmol/L 21.0-31.0 [facility] Chloride [Moles/volume] in S yudy or PlasmaOrdered By: Joseph Wallace on 01-09-2023 Chloride [Moles/Vol] 107 mmol/L 98-107 [facility] Color Auto (U)Ordered By: Janusz Wallace on 01-09-2023 Color (U) Yellow Yellow [facility] Complete Blood Count Auto Di ffon 01-09-2023 Basophils (Bld) [#/Vol] 0.1 10*3/uL Normal 0.0-0.2 [facility] Comment on above: Result Comment: PERF ORMED BY: [facility] [address] [place] [address] PATHOLOGIST PRODUCT SUPPORT ANALYST LUCRECIA NG M.D. Performed By: #### P T, HEPATIC, PTT, BMP, CBC, LIPASE #### [address] Basophils/100 WBC (Bld) 0.6 % Normal . [facility] Comment on above: Performed By: #### P T, HEPATIC, PTT, BMP, CBC, LIPASE #### [address] Eosinophils (Bld) [#/Vol] 0.6 10*3/uL High 0.0-0.45 [facility] Comment on above: Performed By: #### P T, HEPATIC, PTT, BMP, CBC, LIPASE #### [address] Eosinophils/100 WBC (Bld) 5.4 % Normal . [facility] Comment on above: Performed By: #### P T, HEPATIC, PTT, BMP, CBC, LIPASE #### [address] Erythrocyte distribution width (RBC) [Ratio] 14.2 % Normal 11.9-15.3 [facility] Comment on above: Performed By: #### P T, HEPATIC, PTT, BMP, CBC, LIPASE #### [address] Hematocrit (Bld) [Volume fraction] 43.2 % Normal 34.0-46.4 [facility] Comment on above: Performed By: #### P T, HEPATIC, PTT, BMP, CBC, LIPASE #### [address] Hemoglobin (Bld) [Mass/Vol] 14.1 g/dL Normal 11.8-15.4 [facility] Comment on above: Performed By: #### P T, HEPATIC, PTT, BMP, CBC, LIPASE #### [address] Lymphocytes (Bld) [#/Vol] 3.3 10*3/uL Normal 1.00-4.8 [facility] Comment on above: Performed By: #### P T, HEPATIC, PTT, BMP, CBC, LIPASE #### [address] Lymphocytes/100 WBC (Bld) 28.7 % Normal . [facility] Comment on above: Performed By: #### P T, HEPATIC, PTT, BMP, CBC, LIPASE #### [address] MCH (RBC) [Entitic mass] 30.1 pg Normal 24.7-34.3 [facility] Comment on above: Performed By: #### P T, HEPATIC, PTT, BMP, CBC, LIPASE #### [address] MCV (RBC) [Entitic vol] 92.6 fL Normal 80-100 [facility] Comment on above: Performed By: #### P T, HEPATIC, PTT, BMP, CBC, LIPASE #### [address] Mean Corpuscular HGB Conc 32.6 g/dL Normal 32.0-35.0 [facility] Comment on above: Performed By: #### P T, HEPATIC, PTT, BMP, CBC, LIPASE #### [address] Monocytes (Bld) [#/Vol] 0.8 10*3/uL Normal 0.0-0.8 [facility] Comment on above: Performed By: #### P T, HEPATIC, PTT, BMP, CBC, LIPASE #### [address] Monocytes/100 WBC (Bld) 16.00 % Normal 0.00-20.00 [facility] Comment on above: Performed By: #### P T, HEPATIC, PTT, BMP, CBC, LIPASE #### [address] Monocytes/100 WBC (Bld) 6.8 % Normal . [facility] Comment on above: Performed By: #### P T, HEPATIC, PTT, BMP, CBC, LIPASE #### [address] Neutrophils (Bld) [#/Vol] 6.7 10*3/uL Normal 1.8-7.7 [facility] Comment on above: Performed By: #### P T, HEPATIC, PTT, BMP, CBC, LIPASE #### [address] Neutrophils/100 WBC (Bld) 58.5 % Normal . [facility] Comment on above: Performed By: #### P T, HEPATIC, PTT, BMP, CBC, LIPASE #### [address] NRBC% 0.1 /100{WBC} Normal 0-0.5 [facility] Comment on above: Performed By: #### P T, HEPATIC, PTT, BMP, CBC, LIPASE #### [address] Platelet mean volume (Bld) [Entitic vol] 9.8 fL Normal 6.3-10.7 [facility] Comment on above: Performed By: #### P T, HEPATIC, PTT, BMP, CBC, LIPASE #### [address] Platelets (Bld) [#/Vol] 314 10*3/uL Normal 150-450 [facility] Comment on above: Performed By: #### P T, HEPATIC, PTT, BMP, CBC, LIPASE #### [place] [address] [place] RBC (Bld) [#/Vol] 4.67 10*6/uL Normal 3.60-5.00 [facility] Comment on above: Performed By: #### P T, HEPATIC, PTT, BMP, CBC, LIPASE #### [address] WBC (Bld) [#/Vol] 11.5 10*3/uL Normal 3.8-11.6 [facility] Comment on above: Performed By: #### P T, HEPATIC, PTT, BMP, CBC, LIPASE #### [address] [place] [address] [place] Creatinine [Mass/volume] in Serum or PlasmaOrdered By: Joseph Wallace on 01-09-2023 Creatinine [Mass/Vol] 0.57 mg/dL 0.60-1.20 [facility] Dipstick and Microscopicon 0 01-09-2023 Appearance (U) Clear Normal Clear [facility] Comment on above: Order Comment: Name Collection Type:: Clean-Voided Midstream Performed By: #### U RDS, ADDONUAPLUS, UHCG #### [facility] [address] [place] [address] [place] Bacteria,Urine None Seen Normal None Seen [facility] Comment on above: Order Comment: Name Collection Type:: Clean-Voided Midstream Performed By: #### U RDS, ADDONUAPLUS, UHCG #### [facility] [address] [place] [address] [place] Bilirubin,Urine Negative Normal Negative [facility] Comment on above: Order Comment: Name Collection Type:: Clean-Voided Midstream Performed By: #### U RDS, ADDONUAPLUS, UHCG #### [facility] [address] [place] [address] [place] Color (U) Yellow Normal Yellow [facility] Comment on above: Order Comment: Name Collection Type:: Clean-Voided Midstream Performed By: #### U RDS, ADDONUAPLUS, UHCG #### [facility] [address] [place] [address] [place] Glucose Ql (U) Normal Normal Normal [facility] Comment on above: Order Comment: Name Collection Type:: Clean-Voided Midstream Performed By: #### U RDS, ADDONUAPLUS, UHCG #### [facility] [address] [place] [address] [place] Hyaline Casts,Urine None Seen Normal 0-8 [facility] Comment on above: Order Comment: Name Collection Type:: Clean-Voided Midstream Performed By: #### U RDS, ADDONUAPLUS, UHCG #### [facility] [address] [place] [address] [place] Ketones Ql (U) Negative Normal Negative [facility] Comment on above: Order Comment: Name Collection Type:: Clean-Voided Midstream Performed By: #### U RDS, ADDONUAPLUS, UHCG #### [facility] [address] [place] [address] Leukocyte esterase Test strip Ql (U) Negative Normal Negative [facility] Comment on above: Order Comment: Name Collection Type:: Clean-Voided Midstream Performed By: #### U RDS, ADDONUAPLUS, UHCG #### [address] Nitrite,Urine Negative Normal Negative [facility] Comment on above: Order Comment: Name Collection Type:: Clean-Voided Midstream Performed By: #### U RDS, ADDONUAPLUS, UHCG #### [address] Occult Blood,Urine 1+ High Negative [facility] Comment on above: Order Comment: Name Collection Type:: Clean-Voided Midstream Performed By: #### U RDS, ADDONUAPLUS, UHCG #### [facility] [address] [place] [address] pH (U) 5.5 [pH] Normal 5.0-9.0 [facility] Comment on above: Order Comment: Name Collection Type:: Clean-Voided Midstream Performed By: #### U RDS, ADDONUAPLUS, UHCG #### [facility] [address] [place] [address] [place] Protein,Urine Negative Normal Negative [facility] Comment on above: Order Comment: Name Collection Type:: Clean-Voided Midstream Performed By: #### U RDS, ADDONUAPLUS, UHCG #### [facility] [address] [place] [address] [place] RBC,Urine 10-19 High 0-4 [facility] Comment on above: Order Comment: Name Collection Type:: Clean-Voided Midstream Performed By: #### U RDS, ADDONUAPLUS, UHCG #### [place] [address] [place] Specificy [place],Urine 1.027 Normal 1.001-1.03 0 [facility] Comment on above: Order Comment: Name Collection Type:: Clean-Voided Midstream Performed By: #### U RDS, ADDONUAPLUS, UHCG #### [address] Squamous Epithelial Cell,Urine 0-1 Normal 0-2 [facility] Comment on above: Order Comment: Name Collection Type:: Clean-Voided Midstream Performed By: #### U RDS, ADDONUAPLUS, UHCG #### [address] Urobilinogen,Urine Normal Normal Normal [facility] Comment on above: Order Comment: Name Collection Type:: Clean-Voided Midstream Performed By: #### U RDS, ADDONUAPLUS, UHCG #### [address] WBC LM.HPF (Urine sed) [#/Area] 0 /[HPF] Normal 0-4 [facility] Comment on above: Order Comment: Name Collection Type:: Clean-Voided Midstream Performed By: #### U RDS, ADDONUAPLUS, UHCG #### [address] Drug Screen,Urineon 01-10-20 23 Amphetamine Screen,Urine Negative Normal Negative [facility] Comment on above: Performed By: #### P T, HEPATIC, PTT, BMP, CBC, LIPASE #### [address] Barbiturate Screen,Urine Negative Normal Negative [facility] Comment on above: Performed By: #### P T, HEPATIC, PTT, BMP, CBC, LIPASE #### [address] Benzodiazepines Screen,Urine Positive High Negative [facility] Comment on above: Performed By: #### P T, HEPATIC, PTT, BMP, CBC, LIPASE #### [address] Cannabinoid Screen,Urine Positive High Negative [facility] Comment on above: Result Comment: Thes e are unconfirmed results and should not be used for legal purposes. Drug Cut-Off Concentration: AMPH 1000 ng/mL ISAURO 200 ng/mL YULY 200 ng/mL COCM 300 ng/mL OP 300 ng/mL PCP 25 ng/mL THC 20 ng/mL PERFORMED BY: [place] [address] PATHOLOGIST PRODUCT SUPPORT ANALYST LUCRECIA NG M.D. Performed By: #### P T, HEPATIC, PTT, BMP, CBC, LIPASE #### [facility] [address] [place] [address] Cocaine Screen,Urine Positive High Negative [facility] Comment on above: Performed By: #### P T, HEPATIC, PTT, BMP, CBC, LIPASE #### [address] Opiate Screen,Urine Positive High Negative [facility] Comment on above: Performed By: #### P T, HEPATIC, PTT, BMP, CBC, LIPASE #### [address] Phencyclidine Screen,Urine Negative Normal Negative [facility] Comment on above: Performed By: #### P T, HEPATIC, PTT, BMP, CBC, LIPASE #### [facility] [address] [place] [address] ER URINE PROFILEon 3 Bilirubin Ql (U) Negative Normal NEGATIVE [facility] Comment on above: Performed By: #### VEENA LOPEZ #### [facility] [address] [place] [address] Dr. Cristopher Godoy Clarity (U) CLEAR Normal CLEAR [facility] Comment on above: Performed By: #### VEENA LOPEZ #### [facility] [address] [place] [address] Dr. Cristopher Godoy Color (U) LT. YELLOW Normal YELLOW [facility] Comment on above: Performed By: #### VEENA LOPEZ #### [facility] [address] [place] [address] Dr. Cristopher FRANKS A micrscopic examina tion will be performed if indicated. Normal [facility] Comment on above: Performed By: #### Cecilia BAUMAN UMICRO #### [facility] [facility] [address] [place] [address] Dr. Cristopher Godoy Glucose Ql (U) Negative Normal NEGATIVE [facility] Comment on above: Performed By: #### Cecilia BAUMAN UMICRO #### [facility] [address] [place] [address] Dr. Cristopher Godoy Hemoglobin Ql (U) LARGE Abnormal NEGATIVE [facility] Comment on above: Performed By: #### Cecilia BAUMAN UMICRO #### [facility] [address] [place] [address] Dr. Cristopher Godoy Ketones Ql (U) Negative Normal NEGATIVE [facility] Comment on above: Performed By: #### Cecilia BAUMAN UMICRO #### [facility] [address] [place] [address] Dr. Cristopher Godoy LEUKOCYTES Negative Normal NEGATIVE [facility] Comment on above: Performed By: #### Cecilia BAUMAN UMICRO #### [facility] [address] [place] [address] Dr. Cristopher Godoy Nitrite Ql (U) Negative Normal NEGATIVE [facility] Comment on above: Performed By: #### Cecilia BAUMAN UMICRO #### [facility] [address] [place] [address] Dr. Cristopher Godoy pH (U) 6.0 [pH] Normal 5-9 [facility] Comment on above: Performed By: #### Cecilia BAUMAN UMICRO #### [facility] [address] [place] [address] Dr. Cristopher Godoy SPEC GRAVITY 1.010 Normal 1.005-<=1. 025 [facility] Comment on above: Performed By: #### Cecilia BAUMAN UMICRO #### [facility] [address] [place] [address] Dr. Cristopher Godoy UA PROTEIN Negative Normal NEGATIVE/ TRACE [facility] Comment on above: Performed By: #### E RUR, UMICRO #### [facility] [address] [address] [address] Cristopher Godoy UR MICRO IND INDICATED Normal [facility] Comment on above: Performed By: #### E DEWAYNE BAUMANRO #### [facility] [address] [address] [address] Cristopher Godoy Urobilinogen Qn (U) 0.2 {Kevin'U}/dL Normal 0.2 - 1. 0 [facility] Comment on above: Performed By: #### E DEWAYNE BAUMANRO #### [facility] [address] [address] [address] Cristopher Godoy Eosinophils Auto (Bld) [#/Vo l]Ordered By: Joseph Wallace on 01-09-2023 Eosinophils (Bld) [#/Vol] 0.6 10*3/uL 0.0-0.45 [facility] Eosinophils/100 WBC Auto (Bl d)Ordered By: Joseph Wallace on 01-09-2023 Eosinophils/100 WBC (Bld) 5.4 % . [facility] Erythrocyte distribution wid th Auto (RBC) [Ratio]Ordered By: Joseph Wallace on 01-09-2023 Erythrocyte distribution width (RBC) [Ratio] 14.2 % 11.9-15.3 [facility] Globulin Calc (S) [Mass/Vol] Ordered By: Joseph Wallace on 01-09-2023 Globulin (S) [Mass/Vol] 2.7 g/dL [facility] Glucose [Mass/volume] in Ser um or PlasmaOrdered By: Joseph Wallace on 01-09-2023 Glucose [Mass/Vol] 85 mg/dL 74-109 [facility] Comment on above: ADA recommended refe rence rangeRandom Glucose Reference Range is dependent on time and content of last meal. Glucose of more than 200 mg/dL in a nonstressed, ambulatory subject supports the diagnosis of Diabetes Mellitus. HCG ( test) IA.rapi d Ql (U)Ordered By: Joseph Wallace on 01-09-2023 HCG ( test) Ql (U) Negative [facility] HCG,Urineon 01-09-2023 Beta HCG ( test) Ql (U) Negative Normal [facility] Comment on above: Order Comment: Name Collection Type:: Clean-Voided Midstream Result Comment: PERF ORMED BY: [place] [address] PATHOLOGIST PRODUCT SUPPORT ANALYST LUCRECIA NG M.D. Performed By: #### U RDS, ADDONUAPLUS, UHCG #### [facility] [address] Hematocrit Auto (Bld) [Volum e fraction]Ordered By: Joseph Wallace on 01-09-2023 Hematocrit (Bld) [Volume fraction] 43.2 % 34.0-46.4 [facility] Hemoglobin [Mass/volume] in BloodOrdered By: Joseph Wallace on 01-09-2023 Hemoglobin (Bld) [Mass/Vol] 14.1 g/dL 11.8-15.4 [facility] Hepatic Panelon 01-09-2023 Albumin [Mass/Vol] 4.4 g/dL Normal 3.5-5.7 [facility] Comment on above: Performed By: #### P T, HEPATIC, PTT, BMP, CBC, LIPASE #### [facility] [address] Albumin/Globulin [Mass ratio] 1.6 {ratio} Normal [facility] Comment on above: Performed By: #### P T, HEPATIC, PTT, BMP, CBC, LIPASE #### [facility] [address] [place] [address] [place] ALP [Catalytic activity/Vol] 77 U/L Normal 34-104 [facility] Comment on above: Performed By: #### P T, HEPATIC, PTT, BMP, CBC, LIPASE #### [facility] [address] [place] [address] [place] ALT [Catalytic activity/Vol] 16 U/L Normal 7-52 [facility] Comment on above: Performed By: #### P T, HEPATIC, PTT, BMP, CBC, LIPASE #### [facility] [address] [place] [id number] [place] AST [Catalytic activity/Vol] 16 U/L Normal 13-39 [facility] Comment on above: Performed By: #### P T, HEPATIC, PTT, BMP, CBC, LIPASE #### [facility] [address] Bilirubin [Mass/Vol] 0.5 mg/dL Normal 0.3-1.0 [facility] Comment on above: Performed By: #### P T, HEPATIC, PTT, BMP, CBC, LIPASE #### [address] Bilirubin,Indirect 0.4 mg/dL Normal [facility] Comment on above: Performed By: #### P T, HEPATIC, PTT, BMP, CBC, LIPASE #### [address] Bilirubin.indirect [Mass/Vol] 0.10 mg/dL Normal 0.03-0.18 [facility] Comment on above: Performed By: #### P T, HEPATIC, PTT, BMP, CBC, LIPASE #### [address] Globulin (S) [Mass/Vol] 2.7 g/dL Normal [facility] Comment on above: Performed By: #### P T, HEPATIC, PTT, BMP, CBC, LIPASE #### [address] Protein [Mass/Vol] 7.1 g/dL Normal 6.4-8.9 [facility] Comment on above: Performed By: #### P T, HEPATIC, PTT, BMP, CBC, LIPASE #### [address] Ketones Auto test strip (U) [Mass/Vol]Ordered By: Joseph Wallace on 01-09-2023 Ketones (U) [Mass/Vol] Negative Negative [facility] - Chemistry and C hemistry - challengeOrdered By: Joseph Wallace on 01-09-2023 GFR/1.73 sq M.predicted MDRD (S/P/Bld) [Vol rate/Area] mL/min/{1.73_m2} [facility] Laboratory - CoagulationOrde red By: Joseph Wallace on 01-09-2023 PT Coag (PPP) [Time] 10.4 s 9.0-12.9 [facility] Laboratory - UrinalysisOrder ed By: Joseph Wallace on 01-09-2023 Hyaline casts LM Ql (Urine sed) None seen [LPF] 0-8 [facility] Leukocytes [#/volume] correc ifrah for nucleated erythrocytes in Blood by Automated counOrdered By: Joseph Wallace on 01-09-2023 WBC corrected for nucl RBC Auto (Bld) [#/Vol] 11.5 10*3/uL 3.8-11.6 [facility] Lipaseon 01-09-2023 Lipase [Catalytic activity/Vol] 12.0 U/L Normal 11.0-82.0 [facility] Comment on above: Result Comment: PERF ORMED BY: [place] [address] PATHOLOGIST PRODUCT SUPPORT ANALYST LUCRECIA NG M.D. Performed By: #### P T, HEPATIC, PTT, BMP, CBC, LIPASE #### [facility] [address] Lipase [Enzymatic activity/v olume] in Serum or PlasmaOrdered By: Joseph Wallace on 01-09-2023 Lipase [Catalytic activity/Vol] 12.0 U/L 11.0-82.0 [facility] Lymphocytes Auto (Bld) [#/Vo l]Ordered By: Joseph Wallace on 01-09-2023 Lymphocytes (Bld) [#/Vol] 3.3 10*3/uL 1.00-4.8 [facility] Lymphocytes/100 WBC Auto (Bl d)Ordered By: Joseph Wallace on 01-09-2023 Lymphocytes/100 WBC (Bld) 28.7 % . [facility] MCH Auto (RBC) [Entitic mass ]Ordered By: Josehp Wallace on 01-09-2023 MCH (RBC) [Entitic mass] 30.1 pg 24.7-34.3 [facility] MCHC Auto (RBC) [Mass/Vol]Or dered By: Joseph Wallace on 01-09-2023 MCHC (RBC) [Mass/Vol] 32.6 g/dL 32.0-35.0 [facility] MCV Auto (RBC) [Entitic vol] Ordered By: Joseph Wallace on 01-09-2023 MCV (RBC) [Entitic vol] 92.6 fL 80-100 [facility] Monocyte distribution width [Entitic volume] in Blood by AutomatedOrdered By: Joseph Wallace on 01-09-2023 Monocyte distribution width Auto (Bld) [Entitic vol] 16.00 % 0.00-20.00 [facility] Monocytes Auto (Bld) [#/Vol] Ordered By: Joseph Wallace on 01-09-2023 Monocytes (Bld) [#/Vol] 0.8 10*3/uL 0.0-0.8 [facility] Monocytes/100 WBC Auto (Bld) Ordered By: Joseph Wallace on 01-09-2023 Monocytes/100 WBC (Bld) 6.8 % . [facility] Neutrophils Auto (Bld) [#/Vo l]Ordered By: Joseph Wallace on 01-09-2023 Neutrophils (Bld) [#/Vol] 6.7 10*3/uL 1.8-7.7 [facility] Neutrophils/100 WBC Auto (Bl d)Ordered By: Joseph Wallace on 01-09-2023 Neutrophils/100 WBC (Bld) 58.5 % . [facility] Nitrite Test strip Ql (U)Ord ered By: Joseph Wallace on 01-09-2023 Nitrite Ql (U) Negative Negative [facility] No Panel InformationOrdered By: Joseph Wallace on 01-09-2023 Pharmacy Creatinine Clearance (Chem 141.51 [facility] Nucleated erythrocytes [Pres ence] in Blood by Automated countOrdered By: Joseph Wallace on 01-09-2023 Nucleated RBC Auto Ql (Bld) 0.1 /100{WBC} 0-0.5 [facility] Opiates [Presence] in Urine by Screen methodOrdered By: Joseph Wallace on 01-09-2023 Opiates Screen Ql (U) Positive Negative [facility] PREG HCG QUALon 01-09-2023 , QUAL Negative Normal NEGATIVE [facility] [place] Comment on above: Performed By: #### P REG #### [facility] [address] [address] [address] Cristopher Godoy PROF CHEM 8 (BAS METB)on Anion gap [Moles/Vol] 10.6 mmol/L Normal [facility] Comment on above: Performed By: #### B MP #### [facility] [address] [place] [address] Dr. Cristopher Godoy Calcium [Mass/Vol] 8.7 mg/dL Normal 8.5-10.1 [facility] Comment on above: Performed By: #### B MP #### [facility] [address] [address] [address] Cristopher Godoy Chloride [Moles/Vol] 103 mmol/L Normal 98-107 [facility] Comment on above: Performed By: #### B MP #### [facility] [address] [place] [address] Dr. Cristopher Godoy CO2 [Moles/Vol] 28.0 mmol/L Normal 21.0-32.0 [facility] Comment on above: Performed By: #### B MP #### [facility] [address] [place] [address] Dr. Cristopher Godoy Creatinine [Mass/Vol] 0.62 mg/dL Normal 0.55-1.02 [facility] Comment on above: Performed By: #### B MP #### [facility] [address] [place] [address] Dr. Cristopher Godoy EGFR-AF CZECH >60 Normal >=60 [facility] Comment on above: Performed By: #### B MP #### [facility] [address] [place] [address] Dr. Cristopher Godoy EGFR-NON AF CZECH >60 Normal >=60 [facility] Comment on above: Performed By: #### B MP #### [facility] [address] [place] [address] Dr. Cristopher Godoy Glucose [Mass/Vol] 128 mg/dL Critically high 74-106 [facility] Comment on above: Performed By: #### B MP #### [facility] [address] [place] [address] Dr. Cristopher Godoy Potassium [Moles/Vol] 3.6 mmol/L Normal 3.5-5.1 [facility] Comment on above: Performed By: #### B MP #### [facility] [address] [address] [address] Cristopher Godoy Sodium [Moles/Vol] 138 mmol/L Normal 136-145 [facility] Comment on above: Performed By: #### B MP #### [facility] [address] [address] [address] Cristopher Godoy Urea nitrogen [Mass/Vol] 13.0 mg/dL Normal 7.0-18.0 [facility] Comment on above: Performed By: #### B MP #### [facility] [address] [address] [address] Cristopher Godoy Urea nitrogen/Creatinine [Mass ratio] 21.0 mg/mg Normal [facility] Comment on above: Performed By: #### B MP #### [facility] [address] [address] [address] Cristopher Godoy Partial Thromboplastin Timeo n 01-09-2023 aPTT Coag (Bld) [Time] 30.5 s Normal 25.1-36.5 [facility] Comment on above: Result Comment: PERF ORMED BY: [place] [address] PATHOLOGIST PRODUCT SUPPORT ANALYST LUCRECIA NG M.D. Performed By: #### P T, HEPATIC, PTT, BMP, CBC, LIPASE #### [address] Phencyclidine Screen Ql (U)O rdered By: Joseph Wallace on 01-09-2023 Phencyclidine Ql (U) Negative Negative [facility] Platelet mean volume Auto (B ld) [Entitic vol]Ordered By: Joseph Wallace on 01-09-2023 Platelet mean volume (Bld) [Entitic vol] 9.8 fL 6.3-10.7 [facility] Platelet poor plasma interna tional normalized ratio (INR) by coagulation assay (relatOrdered By: Joseph Wallace on 01-09-2023 INR Coag (PPP) [Relative time] 0.9 {INR} [facility] Comment on above: INR Therapeutic Rang [...] 01-09-2023 Platelets (Bld) [#/Vol] 314 10*3/uL 150-450 [facility] Potassium [Moles/volume] in Serum or PlasmaOrdered By: Joseph Wallace on 01-09-2023 Potassium [Moles/Vol] 3.9 mmol/L 3.5-5.1 [facility] Protein Auto test strip (U) [Mass/Vol]Ordered By: Joseph Wallace on 01-09-2023 Protein (U) [Mass/Vol] Negative Negative [facility] Protein [Mass/volume] in Ser um or PlasmaOrdered By: Joseph Wallace on 01-09-2023 Protein [Mass/Vol] 7.1 g/dL 6.4-8.9 [facility] Prothrombin Time INRon 01-09 INR Coag (PPP) [Relative time] 0.9 {INR} Normal [facility] Comment on above: Result Comment: INR [...] T, HEPATIC, PTT, BMP, CBC, LIPASE #### [facility] [address] [place] [address] PT Coag (PPP) [Time] 10.4 s Normal 9.0-12.9 [facility] Comment on above: Performed By: #### P T, HEPATIC, PTT, BMP, CBC, LIPASE #### [facility] [address] RBC Auto (Bld) [#/Vol]Ordere d By: Joseph Wallace on 01-09-2023 RBC (Bld) [#/Vol] 4.67 10*6/uL 3.60-5.00 [facility] Serum or plasma albumin/glob ulin mass ratioOrdered By: Joseph Wallace on 01-09-2023 Albumin/Globulin [Mass ratio] 1.6 {ratio} [facility] Serum or plasma anion gap de terminationOrdered By: Joseph Wallace on 01-09-2023 Anion gap [Moles/Vol] 12.6 mmol/L 6.0-15.0 [facility] Serum or plasma non-glucuron idated bilirubin measurement (mass/volume)Ordered By: Joseph Wallace on 01-09-2023 Bilirubin.indirect [Mass/Vol] 0.4 mg/dL [facility] Sodium [Moles/volume] in Ser um or PlasmaOrdered By: Joseph Wallace on 01-09-2023 Sodium [Moles/Vol] 141 mmol/L 136-145 [facility] Specific gravity Auto test s trip (U) [Rel density]Ordered By: Joseph Wallace on 01-09-2023 Specific gravity (U) [Rel density] 1.027 1.001-1.03 0 [facility] Squamous epithelial cells de tection in urine sediment by light microscopyOrdered By: Joseph Wallace on 01-09-2023 Epithelial cells.squamous LM Ql (Urine sed) 0-1 [HPF] 0-2 [facility] URINE MICROSCOPIC ONLYon BACTERIA NONE SEEN Normal NONE SEEN [facility] Comment on above: Performed By: #### VEENA LOPEZ #### [facility] [address] [place] [address] Dr. Cristopher Godoy Bacteria identified Cx Nom (U) NOT INDICATED Normal [facility] Comment on above: Performed By: #### VEENA LOPEZ #### [facility] [address] [place] [address] Dr. Cristopher Godoy CAST NONE SEEN Normal NONE SEEN [facility] Comment on above: Performed By: #### E RUR, UMICRO #### [facility] [address] [place] [address] Dr. Cristopher Godoy Crystals LM Nom (Urine sed) NONE SEEN Normal NONE SEEN [facility] Comment on above: Performed By: #### E RUR, UMICRO #### [facility] [address] [address] [address] Cristopher Godoy Epithelial cells LM Ql (Urine sed) FEW Abnormal NONE SEEN /RARE [facility] Comment on above: Performed By: #### E RUR, UMICRO #### [facility] [address] [place] [address] Dr. Cristopher Godoy MUCOUS NONE SEEN Normal NONE SEEN [facility] Comment on above: Performed By: #### E RUR, UMICRO #### [facility] [address] [place] [address] Dr. Cristopher Godoy RBC 5-10 Abnormal 0-2 [facility] Comment on above: Performed By: #### E RUR, UMICRO #### [facility] [address] [place] [address] Dr. Cristopher Godoy WBC 0-2 Abnormal NONE SEEN [facility] Comment on above: Performed By: #### E RUR, UMICRO #### [facility] [address] [place] [address] Dr. Cristopher Godoy US transvaginalon 01-09-2023 US transvaginal [facility] [place] [address] [place] [address] Ultrasound Report Signed Patient: Sofia Andrews MR#: [id number] : 2000 Acct:[id number] Age/Sex: 22 / F ADM Date: 01/09/23 Loc: ER Room: Type: [facility] ER Attending Dr: Ordering Provider: Joseph Wallace DO Date of Service: 01/09/23 US/US pelvic complete: ABDOMINAL PAIN ([id number]) US/US transvaginal: PAIN Copies to: Joseph A Keister, DO PELVIC ULTRASOUND (transabdominal and transvaginal) COMPARISON: [...] M.D.01/09/2023 2:27 PM Dictation Location: [place] [address] Tech: Marian Mendoza Transcribed By: CHAZ 01/09/23 1426 Dictated By: Chelsea Ceja MD 01/09/23 1344 Signed By: 01/09/23 7357 [facility] Urea nitrogen [Mass/volume] in Serum or PlasmaOrdered By: Joseph Wallace on 01-09-2023 Urea nitrogen [Mass/Vol] 12 mg/dL 7-25 [facility] Urine bacteria detection by automated methodOrdered By: Joseph Wallace on 01-09-2023 Bacteria Auto Ql (U) None seen None Seen [facility] Urine clarity by refractomet ry automatedOrdered By: Joseph Wallace on 01-09-2023 Clarity Refractometry automated (U) Clear Clear [facility] Urine glucose measurement by automated test strip (mass/volume)Ordered By: Joseph Wallace on 01-09-2023 Glucose Auto test strip (U) [Mass/Vol] Normal mg/dL Normal [facility] Urine hemoglobin detection b y automated test stripOrdered By: Joseph Wallace on 01-09-2023 Hemoglobin Auto test strip Ql (U) 1+ Negative [facility] Urine leukocyte esterase det ection by automated test stripOrdered By: Joseph Wallace on 01-09-2023 Leukocyte esterase Auto test strip Ql (U) Negative Negative [facility] Urobilinogen Auto test strip (U) [Mass/Vol]Ordered By: Joseph Wallace on 01-09-2023 Urobilinogen (U) [Mass/Vol] Normal mg/dL Normal [facility] WBC Auto (Bld) [#/Vol]Ordere d By: Joseph Wallace on 01-09-2023 WBC (Bld) [#/Vol] 11.5 10*3/uL 3.8-11.6 [facility] pH Auto test strip (U)Ordere d By: Joseph Wallace on 01-09-2023 pH (U) 5.5 [pH] 5.0-9.0 [facility] CBC AUTO DIFFon 01-05-2023 BASO # 0.1 103/ul Normal 0.0-0.1 [facility] Comment on above: Performed By: #### C BC #### [facility] [address] [address] [address] Cristopher Godoy Basophils/100 WBC (Bld) 0.6 % Normal 0.2-2.0 [facility] Comment on above: Performed By: #### C BC #### [facility] [address] [place] [address] Dr. Cristopher Godoy EO # 0.6 103/ul Normal 0.0-0.7 [facility] Comment on above: Performed By: #### C BC #### [facility] [address] [place] [address] Dr. Cristopher Godoy Eosinophils/100 WBC (Bld) 5.7 % Normal 0.9-7.0 [facility] Comment on above: Performed By: #### C BC #### [facility] [address] [place] [address] Dr. Cristopher Godoy Erythrocyte distribution width (RBC) [Ratio] 13.6 % Normal 11.0-15.0 [facility] Comment on above: Performed By: #### C BC #### [facility] [address] [place] [address] Dr. Cristopher Godoy Hematocrit (Bld) [Volume fraction] 46.7 % Normal 36.0-48.0 [facility] Comment on above: Performed By: #### C BC #### [facility] [address] [place] [address] Dr. Cristopher Godoy Hemoglobin (Bld) [Mass/Vol] 15.2 g/dL Normal 12.0-16.0 [facility] Comment on above: Performed By: #### C BC #### [facility] [address] [place] [address] Dr. Cristopher Godoy IG # 0.03 10e3/ul Normal 0.00-0.03 [facility] Comment on above: Performed By: #### C BC #### [facility] [address] [place] [address] Dr. Cristopher Godoy IG % 0.3 % Normal 0.0-0.5 [facility] Comment on above: Performed By: #### C BC #### [facility] [address] [place] [address] Dr. Cristopher Godoy LYMPH # 3.3 103/ul Normal 1.2-3.8 [facility] Comment on above: Performed By: #### C BC #### [facility] [address] [place] [address] Dr. Cristopher Godoy Lymphocytes/100 WBC (Bld) 29.2 % Normal 20.5-60.0 [facility] Comment on above: Performed By: #### C BC #### [facility] [address] [place] [address] Dr. Cristopher Godoy MANUAL DIFF REQ NO Normal [facility] [place] Comment on above: Performed By: #### C BC #### [facility] [address] [place] [address] Dr. Cristopher Godoy MCH (RBC) [Entitic mass] 29.9 pg Normal 26.7-34.0 [facility] Comment on above: Performed By: #### C BC #### [facility] [address] [place] [address] Dr. Cristopher Godoy MCHC (RBC) [Mass/Vol] 32.5 g/dL Normal 29.9-35.2 [facility] Comment on above: Performed By: #### C BC #### [facility] [address] [place] [address] Dr. Cristopher Godoy MCV (RBC) [Entitic vol] 91.9 fL Normal 81.0-99.0 [facility] Comment on above: Performed By: #### C BC #### [facility] [address] [place] [address] Dr. Cristopher Godoy MONO # 0.7 103/ul Normal 0.3-0.8 [facility] Comment on above: Performed By: #### C BC #### [facility] [address] [place] [address] Dr. Cristopher Godoy Monocytes/100 WBC (Bld) 6.3 % Normal 1.7-12.0 [facility] Comment on above: Performed By: #### C BC #### [facility] [address] [place] [address] Dr. Cristopher Godoy NEUT # 6.5 103/ul Normal 1.4-6.5 [facility] Comment on above: Performed By: #### C BC #### [facility] [address] [place] [address] Dr. Cristopher Godoy Neutrophils/100 WBC (Bld) 57.9 % Normal 43.0-75.0 [facility] Comment on above: Performed By: #### C BC #### [facility] [address] [address] [address] Cristopher Godoy Platelet mean volume (Bld) [Entitic vol] 11.1 fL Normal 9.5-13.5 [facility] Comment on above: Performed By: #### C BC #### [facility] [address] [address] [address] Cristopher Godoy PLT 360 103/ul Normal 150-450 [facility] Comment on above: Performed By: #### C BC #### [facility] [address] [place] [address] Dr. Cristopher Godoy RBC 5.08 106/ul Normal 4.20-5.40 [facility] Comment on above: Performed By: #### C BC #### [facility] [address] [place] [address] Dr. Cristopher Godoy WBC 11.2 103/ul Critically high 4.0-11.0 [facility] Comment on above: Performed By: #### C BC #### [facility] [address] [place] [address] Dr. Cristopher Godoy ER URINE PROFILEon 3 Bilirubin Ql (U) Negative Normal NEGATIVE The [facility] Comment on above: Performed By: #### U MICRO, ERUR ####[facility] [address] [place] [address]Dr. Cristopher Godoy Clarity (U) CLEAR Normal CLEAR [facility] Comment on above: Performed By: #### U MICRO, ERUR ####[facility] Lpvmqxymcg25[address] [place] [address]Dr. Cristopher Godoy Color (U) LT. YELLOW Normal YELLOW [facility] Comment on above: Performed By: #### U MICRO, ERUR ####[facility] Hubbtjtrwq0757 [place] [address]DrHawk Godoy ERUAHD A micrscopic examina tion will be performed if indicated. Normal [facility] Comment on above: Performed By: #### U MICRO, ERUR ####[facility] Fcbhuofipe[address] [place] [address]Dr. Cristopher Godoy Glucose Ql (U) Negative Normal NEGATIVE The [facility] Comment on above: Performed By: #### U MICRO, ERUR ####[facility] Lahczrbhee[address] [place] [address]Dr. Cristopher Godoy Hemoglobin Ql (U) SMALL Abnormal NEGATIVE The [facility] Comment on above: Performed By: #### U MICRO, ERUR ####[facility] Piknztpkeu[address] [place] [address]Dr. Cristopher Godoy Ketones Ql (U) Negative Normal NEGATIVE The [facility] Comment on above: Performed By: #### U MICRO, ERUR ####[facility] [address] [place], [place] [address]Dr. Cristopher Godoy LEUKOCYTES Negative Normal NEGATIVE [facility] Comment on above: Performed By: #### U MICRO, ERUR ####[facility] Irwoafsv[address] [place], [place] [address]Dr. Cristopher Godoy Nitrite Ql (U) Negative Normal NEGATIVE The [facility] Comment on above: Performed By: #### U MICRO, ERUR ####[facility] [address]vib[address] [place], [place] [address]Dr. Cristopher Godoy pH (U) 6.0 [pH] Normal 5-9 [facility] Comment on above: Performed By: #### U MICRO, ERUR ####[facility] Bickij[address] [place], [place] [address]Dr. Cristopher Godoy SPEC GRAVITY <=1.005 Abnormal 1.005-<=1. 025 [facility] Comment on above: Performed By: #### U MICRO, ERUR ####[facility] [address] [place], [place] [address]Dr. Cristopher Godoy UA PROTEIN Negative Normal NEGATIVE/ TRACE [facility] Comment on above: Performed By: #### U MICRO, ERUR ####[facility] Swjnlaapsm[address] [place], [place] [address]Dr. Cristopher Godoy UR MICRO IND INDICATED Normal [facility] Comment on above: Performed By: #### U MICRO, ERUR ####[facility] Xjfoxhyjkw[address] [place] [address]Dr. Cristopher Godoy Urobilinogen Qn (U) 0.2 {Kevin'U}/dL Normal 0.2 - 1. 0 [facility] Comment on above: Performed By: #### U MICRO, ERUR ####[facility] Izykeirchw[address] [place] [address]Dr. Cristopher Godoy PREG HCG QUALon 01-05-2023 , QUAL Negative Normal NEGATIVE The [place] Comment on above: Performed By: #### P REG #### [facility] [address] [place] [address] [address] Cristopher Godoy PROF CHEM 8 (BAS METB)on Anion gap [Moles/Vol] 15.3 mmol/L Normal [facility] Comment on above: Performed By: #### B MP ####[facility] Pwwitpacpm[address] [place], [place] [address]Dr. Cristopher Godoy Calcium [Mass/Vol] 9.8 mg/dL Normal 8.5-10.1 [facility] Comment on above: Performed By: #### B MP ####[facility] Feugbuepdd[address] [place] [address]Dr. Cristopher Godoy Chloride [Moles/Vol] 106 mmol/L Normal 98-107 [facility] Comment on above: Performed By: #### B MP ####[facility] Jegsqtgmuk1087 [place] [address]Dr. Cristopher Godoy CO2 [Moles/Vol] 25.2 mmol/L Normal 21.0-32.0 [facility] Comment on above: Performed By: #### B MP ####[facility] Xubjaxzjvv[address] [place] [address]Dr. Cristopher Godoy Creatinine [Mass/Vol] 0.58 mg/dL Normal 0.55-1.02 [facility] Comment on above: Performed By: #### B MP ####[facility] [address]sh[address] [place], [place] [address]Dr. Cristopher Godoy EGFR-AF CZECH >60 Normal >=60 [facility] Comment on above: Performed By: #### B MP ####[facility] [address]yqooptr[address] [place] [address]Dr. Cristopher Godoy EGFR-NON AF CZECH >60 Normal >=60 [facility] Comment on above: Performed By: #### B MP ####[facility] Ctepnwfuiv[address] [place] [address]Dr. Dayanaraisa Walt Glucose [Mass/Vol] 89 mg/dL Normal 74-106 The [facility] Comment on above: Performed By: #### B MP ####[facility] Wvcdmkvdew[address] [place] [address]Dr. Dayanaraisa aWlt Potassium [Moles/Vol] 4.5 mmol/L Normal 3.5-5.1 [facility] Comment on above: Performed By: #### B MP ####[facility] Smchwstote[address] [place] [address]Dr. Dayanaraisa Walt Sodium [Moles/Vol] 142 mmol/L Normal 136-145 The [facility] Comment on above: Performed By: #### B MP ####[facility] Qotxfredwl[address] [place] [address]Dr. Cristopher Walt Urea nitrogen [Mass/Vol] 12.0 mg/dL Normal 7.0-18.0 [facility] Comment on above: Performed By: #### B MP ####[facility] Bfbrvxxfkl[address] [place] [address]Dr. Dayanaraisa Walt Urea nitrogen/Creatinine [Mass ratio] 20.7 mg/mg Normal [facility] Comment on above: Performed By: #### B MP ####[facility] Yrmjjwohls[address] [place] [address]Dr. Dayanaraisa Walt URINE MICROSCOPIC ONLYon BACTERIA NONE SEEN Normal NONE SEEN [facility] Comment on above: Performed By: #### U MICRO, ERUR ####[facility] K[address]zmvkoat[address] [place] [address]Dr. Dayanaraisa Walt Bacteria identified Cx Nom (U) NOT INDICATED Normal [facility] Comment on above: Performed By: #### U MICRO, ERUR ####[facility] Yrjvguoidq[address] [place] [address]Dr. Cristopher Godoy CAST NONE SEEN Normal NONE SEEN [facility] Comment on above: Performed By: #### U MICRO, ERUR ####[facility] Sltuhyzwoq[address] [place] [address]Dr. Cristopher Godoy Crystals LM Nom (Urine sed) NONE SEEN Normal NONE SEEN [facility] Comment on above: Performed By: #### U MICRO, ERUR ####[facility] C[address]hswkral[address] [place] [address]Dr. Cristopher Godoy Epithelial cells LM Ql (Urine sed) MODERATE Abnormal NONE SEEN /RARE [facility] Comment on above: Performed By: #### U MICRO, ERUR ####[facility] Ozvpnxcwmx3177 [place] [address]Dr. Cristopher Godoy MUCOUS TRACE Abnormal NONE SEEN [facility] Comment on above: Performed By: #### U MICRO, ERUR ####[facility] [address] [place], [place] [address]Dr. Cristopher Godoy RBC 2-5 Abnormal 0-2 [facility] Comment on above: Performed By: #### U MICRO, ERUR ####[facility] Dxkkfxccpe[address] [place] [address]Dr. Cristopher Godoy WBC NONE SEEN Normal NONE SEEN [facility] Comment on above: Performed By: #### U MICRO, ERUR ####[facility] Daycxlcquw[address] [place], [place] [address]Dr. Cristopher Godoy US PELVIS TRANSVAGon 023 US [...] GABBY CHARLES Date: 2023-01-05 10:[address] [facility] Post Op (Breast Surgery)on 0 05-08-2022 Post Op (Breast Surgery) No report was sent Normal Always Prepped CORONAVIRUS 2019, SCREEN ASY MPTOMATICon 04-25-2022 SARS-CoV-2 (COVID-19) RNA HUMBERTO+probe Ql (Unsp spec) Not detected Normal Not Detected [facility] Comment on above: Result Comment: . [...] patient management decisions. Fact sheet for providers: https://www.fda.gov/media/909712/download Fact sheet for patients: https://www.fda.gov/media/052864/download This test has received FDA Emergency Use Authorization (EUA) and has been verified by [facility] ([facility]). This test is only authorized for the duration of time that circumstances exist to justify the authorization of the emergency use of in vitro diagnostic tests for the detection of SARS-CoV-2 virus and/or diagnosis of COVID-19 infection under section 564(b)(1) of the Act, 21 U.S.C. 360bbb-3(b)(1), unless the authorization is terminated or revoked sooner. [facility] is certified under CLIA-88 as qualified to perform high complexity testing. Testing is performed in the [facility] laboratories [place] at [address] [place] [address]. Performed By: #### C OVSC #### [address] [place] [address] Covid 19 Resultson 2 SARS-CoV-2 (COVID-19) RNA [...] You may also be contacted by the [facility] to see if any of your close [...] or Naproxen (Aleve) can also be used. Lhdr-asy-coydotw cough and cold medicines can be used according to the instructions on the package. Some wint-oel-fypdxlw medicines also contain acetaminophen. Make sure you [...] water are not available, use alcohol-based hand cement mason helper. Avoid touching your eyes, nose, and mouth [...] 24 shaquille (more content not included)... Normal [facility] No Panel Informationon 04-25 [facility] Work Phone: [facility] [place] [place] [place] [facility] [place] PREOPERATIVE DIAGNOSIS: Chronically infected sebaceous cyst, right chest. POSTOPERATIVE DIAGNOSIS: Chronically infected sebaceous cyst, right chest. OPERATION/PROCEDURE: Excision of sebaceous cyst, right chest, 5 x 2 cm area. SURGEON: Juan Taylor MD. BEAD FLIPPER(S): Geraldine, PGY-1. ANESTHESIA: General and 0.5% Marcaine. [...] Juan Taylor MD EST EST DICTATION NUMBER: [id number] INTERNAL JOB NUMBER: [id number] CC: UNKNOWN UNKNOWN Juan Taylor MD Electronic [...] be shared with your follow-up providers (doctor, group therapy counselor, physical therapist, etc.). doxycycline hyclate 100 mg [...] greater t (more content not included)... Normal [facility] Patient Profile - Preop v3on 04-25-2022 Patient Profile - Preop v3 Patient Profile - Preop: Initial Info: Patient DemographicsName: SOFIA WIGGINS Date: 2000 Address: [address] [place] [address] Primary Phone [phone] How to be AddressedNicolette Spoken Language PreferredEnglish Source of Informationpatient Stated Reason for AdmissionR breast cyst removal Primary Contact Name and NumberTom Andrews ([facility]) [phone] Limitations on Visitors/Phone Callsnone Medications Brought to Hospitalno General Health: Patient or Family Member Reaction to Anesthesiano previous reaction Blood Avoidance/Restrictionsnon e Previous Transfusion Reactionnot applicable Health Mgmt: Symptoms/Conditions Managed at Homerespiratory Are You no Are You Currently Breastfeedingno Respiratory Symptoms/Conditionsasthma Respiratory Management Strategiesmedication therapy; routine screening Barriers to Managing Healthnone Relationship/Environ: Lives Withspouse Living Arrangementshouse Resource/Environmental Concernsnone Anticipated [facility] Anticipated at Transitionnone Tobacco Use: Tobacco Useyes Tobacco Typecigarettes Last Tobacco [id number] Number of Packs per Day1 Number of yrs6 Pack yrs6 Pre-op Checklist: Arrival [id number] Arrival Time08:08 Procedure Typebreast biospy NPOyes Last Food Rvuoqs15-Uwi-8373 00:00 Last Clear Fluid Whmost46-Ntc-6714 00:00 ID Band On Patientpatient ID (name), [...] Toradol: Drug, Unknown, Active Electronic Signatures: Saumya Crane) (Signed 25-Apr-2022 08:09) Authored: Initial Info, General Health, Health Mgmt, Relationship/Environ, Tobacco Use, Pre-op Checklist, Additional Information Last Updated: 25-Apr-2022 08:09 by Saumya Crane) Normal [facility] Surgical Pathology Depar tmenton 04-25-2022 [facility] Surgical Pathology Department Name SOFIA WIGGINS Pathologist: ROGELIO LOCKETT III, D.O. Date of Procedure: 04/25/2022 Date Received: 04/25/2022 Date Reported 04/30/2022 Submitting Physician: JUAN TAYLOR MD [facility] Other External # FINAL DIAGNOSIS A. RIGHT SKIN CYST CHEST WALL, EXCISION: -- BENIGN EPIDERMAL CYST WITH ADJACENT FIBROSIS AND PATCHY CHRONIC INFLAMMATION. peb Electronically Signed Out By ROGELIO LOCKETT III, D.O./PEB By the signature on this report, the individual or group listed as making the Final Interpretation/Diagnosis certifies that they have reviewed this case. Diagnostic interpretation performed at [place] [address] Clinical History: Physician Contact Number: [phone] Ischemic Time (A): 09:40 Fixative (A): Formalin [...] measures 2 x 1.1 x 1 cm. Lab Technologist sections are submitted in one cassette. AXQ [facility] Department of Pathology [address] [place] [address] Normal [facility] Comment on above: Performed By: #### U HCS #### [facility] Surgical Pathology Department [address] [place] [address] CORONAVIRUS 2019, SCREEN ASY MPTOMATICon 04-24-2022 Lab Specimen Source Nasal, Nasopharyngeal Normal [facility] Comment on above: Performed By: #### C OVSC #### [place] [id number] Coronavirus 2019 RNA by PCR, Screening Asymptomticon 04-24-2022 Coronavirus 2019 RNA by PCR, Screening Asymptomtic Not detected Normal See Below [facility] Work Phone: Comment on above: [...] make patient management decisions.Fact sheet for providers: https://www.fda.gov/media/647568/downloadFact sheet for patients: https://www.fda.gov/media/649505/downloadThis test has received FDA Emergency Use Authorization (EUA) and has been verified by [facility] ([facility]). This test is only authorized for the duration of time that circumstances exist to justify the authorization of the emergency use of in vitro diagnostic tests for the detection of SARS-CoV-2 virus and/or diagnosis of COVID-19 infection under section 564(b)(1) of the Act, 21 U.S.C. 360bbb-3(b)(1), unless the authorization is terminated or revoked sooner. [facility] is certified under CLIA-88 as qualified to perform high complexity testing. Testing is performed in the [facility] laboratories located at [address] [place] [address]. Follow Up (Breast Surgery)on 04-10-2022 Follow Up [...] cyst; CORINA = N; Verified Transmission to [facility]; Last Updated By: Ashish [...] excised. She has been receiving care at [facility]. 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 Nulliparous No use [...] FINISHED. Vitals L-Dex Vitals Recorded: 10Apr2022 09:14AM Dqzxyjgiwim83.5 F Heart Rate99 Sdirpflq240 Zanswmmqb45 Height4 ft 11 in Dhokfb342 lb 4 oz BMI Aasnlripfq96.18 kg/m2 BSA Calculated1.72 O2 Nlgizuvmot75 Physical Exam Area of the cyst is somewhat smaller can still express small amount of pus through a port in the skin. Mildly tender. Signatures Electronically signed by : Juan Taylor MD; Apr 10 2022 11:30AM EST (Author) Normal [facility] Cult, Misc + smearon 022 Bacteria identified Cx Nom (Unsp spec) X[facility]-Gjcsrql-Ac een Center Work Phone: Initial Visit (Breast [...] [facility]; Last Updated By: System, [employer]; 03/27/2022 10:41:36 AM Cult, Misc + smear; Status:Hold For - Specimen/Data Collection; Requested for:[id number]; Perform:Lab Services - Office to Draw (Non-Blood Test); Due:[id number];Ordered; For:Infected sebaceous cyst; Ordered By:Juan Taylor; Site [...] excised. She has been receiving care at [facility]. 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 Nulliparous No use [...] AM Vitals L-Dex Vitals Recorded: 27Mar2022 09:51AM Stvezfleawk77.7 F Heart Rate78 Afzqtnim883 Vdhgpoyfm51 Height4 ft 11 in Fmjgfo602 lb 1 oz BMI Dmhibyksxj18.16 kg/m2 BSA Calculated1.74 O2 Aqkytuubjp71 Physical Exam Constitutional - General appearance: In no acute distress, well appearing and well nourished. Neck - Exam: Appearance of the neck was normal. No neck masses observed. Thyroid Examination: Not enlarged and there were no palpable nodules. Pulmonary - Respiratory effort: Normal respiration. Auscultati (more content not included)... Normal [facility] MISCELLANEOUS CULT./SM.BACT. on 03-27-2022 MISCELLANEOUS CULT./SM.BACT. PATIENT: SOFIA WIGGINS LOCATION: [facility] BILL#: [id number] : [birth year] AGE: SEX: F ORDERED BY: JUAN TAYLOR SOURCE: WOUND/ABSCESS COLLECTED: 03/27/22 00:00 ANTIBIOTICS AT TIMOTHY.: RECEIVED : 03/27/22 17:02 SITE: R E S U L T S GRAM STAIN FINAL 03/27/22 19:21 NO GRANULOCYTES SEEN. 3+ GRAM VARIABLE COCCI MISCELLANEOUS CULT./SM.BACT. FINAL 03/31/22 12:04 1+ MIXED SKIN JIL 4+ ANAEROBIC MIXED BACTERIA Normal [facility] Comment on above: Performed By: #### M [facility] #### [facility] [address] [place] [address] Coding Summary.on 02-19-2022 Coding Summary. CD:[id number] Gh0bW w+PGhlYWQ+MC4STBExJ52hnDS hnQ8MH8qFJQ8MUZVHEMGUXP4I XL7uyIE8IIihX5HsjnZz DxxjbMSsJM18WDa3XPH7dEadO RsaaL6cfDInU2l0NpZpUC84qS 45KZtiWAQhSvN9GbSmgwdagJP y V7wcDkConMLpAxp+PHRhYmxlI HdpZHRoPScxMDAlJyBzdHlsZT 3dXq4rEBTeJJXywFzqjGLaRfO j c1mmXXXlQPvlUS7ynNsjU7Zsk KV1FGCvz3y9Hw20wDB+PHRkIH F4kQnvSYmvn568QlGqt7tuTAD 3 xQNtFBzaJQM2F03bi7X8ZLWxS VTyAAL9rXN6fY6eiYvbvdziT4 NodGBiIuZ0JWX2aVSnoT8dpGy n tweafW5pFjh+M63HBU7ZCMUER G4IOlb3E8GxLfudbQB+PC90YW AbDD12kDMtsVClo6nhaEr1YsR w NIJhQZK4aDpbBFdbe1HgLCDvN 03ocMVze3X5REXvlCsacLDtZt DfdST6uF4sFOaunudyx0lpgcc n Jsamb7yxbc79aD94N20nWMbcF UMnDSE7ZSEpDWDfaNspfc6qnY 9wIi8+BScva2jfw3dpjYq8NvI w OJEjiqJlcYvoMNG6d9LuBj39Z 6ZqiEsdi9EgIhu1ar52zJDzf7 M8bUN7NQlnICGxrW0mZOeyKnE 6 RECkAqZldZ91oVJyGNddAw9zb ZkthLldUU3lVUStewrzBWBnbZ 4iFVWhqFSvyAopEO7qKBWznxa m n237PgJbRVH9AACihQJxM2Wji T3tRgEdTZJePELjN1WskQFeKN vhQ117YHotOkU7WAHttgAaZ7V s EMEvhFetWyN1i5X8Us8To3Ozt mveGTL4ZOndZXK4LhRjCiEtIw S7L6IcUkl9DVOdoNrtWS4gT3T h DOBxzycigntsqPG2ATRrOGCrw F41hPMxXWykPe3pi4D9i638SV DuCMMdiZ20Nb4wrSawHKEprWR U gT5wxixqz1wutcchXlZsMCKuA Tw7HYb3TATfbCvqGyPyPWS9Me G1JOQ9hLHtlT7poYjzhimwfV6 w Oyc+X52jnW8iGYC7BNR8luvkD VTbaqCvUE24SU14F8AfYfzmkH FibGU+ZTBryoXmzZiqJV4wXaH j r0jlg5VeFGunJ2VvDYBxUPvgH lv1KPKnMTV7xDE3bN2sIMCiHT eni7H6zIX3F4BekkFtgt0gh0t s KMYpDWbuF82rtJPnv7Q5XIEap QG7QJAgcQaeBvTdlV16Cyp+PG IsdZymw5AvFyuzx0kqi6pbkOi 9 VbHkBDJwazDqyLkiQWQ0l5LsT c05M92vOMirXRVvWHVxQWZrAN LewTowwy0xiV0ySm1+PGNvbCB 3 cOU1hQ2yQNAfCvO3XFbyI241P vPrkCYyHynfx3fmc5lqvAi9Zp HoCUBkmlYjdSmxMEI6r0YnBo3 8 B27nZJkuEMAgEZMmKGEnPBRgt Cfuvm5woY5mNp2+TT4wi8vdsa 36oO64hZU+IBKgOUW5bTxmSOy w EVBafE2sBCugHmL8DBXxVnTef L39iOGzHBzzAv9qqCcwxNbrUD 7bBXOokhgot028VlSaq3nrQPX w zUQxUOicBSO1A49nh0R6QUWhX EUtZQL6gFX4bH7xtOfxedlyaN JyiBsfpkAkvTvxHQmkOVbhT64 6 IHRvcDsnPlBhdGllbnQgTmFtZ Lf3H5HwVgj7JZHryJduDE2xxX SbCYstUp0vfTyhvRftAE6kBAQ p iampp369RdXdi8vcBQZtgJWaT RkxCZB7K75mq8G1CKZyKYBjXR Z4yFF2wT1naYfopurceIAutCo g baEnmMyqNDmyLXxqJ697BJZoe BchMiUtirOhVPVdcPH9AN61MI 47lADno5O1dVE1D5XgACOmdqd t jvwkaYX5LGUxAKByeP49Cs5bc TxuHo9sMDMnGOJ5NVPukILuG2 HsdS9oXpVwHTOwIJFoX3HegZJ t XQafT729XNrzLxY7MJAjacYuX 4DmHEItaWkmCsY1b3Y1Xm0PX6 W2AA87VU76qWYxl6M5bGJ2H1K h ALZfxtvaeauxsRS2GWMvWEVzx F00Ab6gmMelSl2cLFDeKGS0QK JmfHWaK8LvaF8sBlOoNCOyMFB w G3FphLFkMWrjC686UKciOgI6R HTchsDwY6WpRZMnsChaRbA7r7 W7Jx5JHEh0BS64MR92oLScb1G 5 aET7D2FzQICgxpllcgiddSE8V ILyNKNctE87Xf7diYgqQx1bEM WzDQU9IRQnbYQeE6JowQ8gMqN j RIOnBPZnO5CbgBAdUHemK780M EizWzX3KVDgibTyA9QySYMsvC ulJxR5d6R7Jm9DERKnJQ83NOC 5 dHU0RZ79FX39O3UuPzllkCUrc +PHRhYmxlIHdpZHRoPScxMD VyNrBmaEphMI8yRp1hEPMuDVY v nMabeYAxNrDil0rsRYBjNLeoL T2vuBewD5BrrLF9KBXce0w8Zu 64V02yC3VktOC+NSLunEF2oOI 0 gK8fHoJlTxD2OCyrU866XrTrh FKeJcuxl6cjq6npzYm0KmI3TB FkzhNcbUquQNO3y4XzEh41K47 s IHdpZHRoPSIxNSUiIHZhbGlnb m2fnX7iIl3+SIQblGZ0dSA8mK 1sVbRbXgU2ATlgF390PtCqiSZ v Nbnyl2jcv9lsuFw3QrYnGOAjo hLuvYvqJWU8v8BlVu12T5BfhI loz2NzOhg1ga90zPWxy3T0hZM 9 P6WpDMCzgitxgOKteKmvTZ4fC BFpqxgvPQCtoY3nAWIvI3w5Qq WiPaP5XVlrA8VwowZ0VOCtuCE g YUsxAVX1Y17vt0R5DLHgMRIdO TB1jDT2hT0uuPkitwrvxLVozA ahwgQbdMwtKFhkEGfkP456GVE v jYdrTHBmkL0eDFFcpIXgaLsqI V0wTTJkodcbYkNMVMLjIH5JY3 9MRVRURTwvdGQ+VKVjCSK4sTo l DJejMEZdkO1gCSMzF6a9TzDgU nX7SJwnO3YxPZBictcmHz05qM 3jEpIkIdP3ESieS7KdrtB9PKG w qVSgPIncBYR1B90az1O3FHEqM ESgVAE5uTB3uF3vhBdwiontnH HauTvpjhObgSimNEkyDZhaT16 6 HERjeNwbHaRfUiUpKiW3GPw8S 5CkOfd3PCHcmCgfPU2ggYIlLA iaDu5lvTbzxCxkUN8cHOCorpq w TLMbrU4aVCFnqJRwrThrSV9eX ZMoymtdx749UvLgAXH9BFBwrR LgV3UlbU9yUgGiCVZfJGGqW8G l rDUiXVcpJ863NSnmBiH1KMQue hBaZ1OhUNQbfRjcGoN4h3G0Uh 4yMyBZZWFyczwvdGQ+PHRkIHN 0 uNcbECisWGKqeZ9wQVTdF1p5L gXqVyM3IXjfF4KtBIGfzwovMi 89mI3nKeNzRnL7UExjK4NkpxK 6 PCVnkANyXSzuPMD4B64sv7B8S HRkNUPjLQO2gHE5tC7puSlvqw ogbGVmdDsgdmVydGljYWwtYWx p G313UIIpdNqpAsPznOPkTVesj GQ+MQLnXEK8cFkdQBlnHQXtnY 3lTJUyU1e9EpTnVuA0JBzcB1A h JXAyztszMd90xX8mMcFuEnJ3W LctJ3OgarR7ZFFfuDUjNRqrTY G6H06dt6H3CTAsQISiSDZ2vFJ 4 sE8srNorpfuazUSslKykmwAhl UmyKJrgSUheM706NMRbiRoyAn WgYTSdJV6ngFgqzWC+NX89yc0 8 R8MmYkvzDfe8NDMdXEI4wMQ0k E6vNURnCUrrz4E5oQV4I2Gjgu Rqkj3gh5trJEIxNDijZ56odLG w v0S4RLBhnIF8OWGmuSniTzRuj G93Oyc+ZUKvwJspe1EpQfngm4 gpb0lqmYh6QsFwKMXcsiDccLd u ILN8t0VdDj18E05kNIulPLTbO SZaCQJgDNGkmYvxwo5ntM1aEf 8+QRWziYF7vUB5xW2yNbAiUzA 2 LOyjM806LpThyFUlFctpv5sdi 1cfjAn2KqUbHAXsgdOesOyvZA H3l6RyVs36I6ExcYvap0YgYwd 0 cl36rAHsf7J0pXF8J2PdJKUig ancnVTskSnaZS5uLYGyhscbKM ZhsB1eUDMtK6k7AqElKeC3CGq u F7AclfE5QIPmnXIaYQHddPUKg D3hlkbil7gtepegWuTuNXMeBI o5HEt1SSRqgSfgAoSbQTP3LtS 2 CFR4cZIyjX3bnIpalyibsA1nO yc+GBo5j1qjrAHdPO7omNU1JD 35QW58hEPxx5N7zTS3R3HvDVY p sciihdyjqTU4LYYsHMDzaI28C u3xmFedRs7fCAJuLJR0BPFvxB WzI7IylX7hKmWtDYAhYSNzV3V l uTVkLNrxP730JDbiLwK8XTDrj zMcS0ChQPDybFopLzM5u1M8Fa 7HQK66QZ15HG43rUErv4P6oDI 9 H7JmCSEuioiauloyxPJ3VYMkK BTmcU74Pw4dmPrrMc0yMNJdTQ S6WEXucNBzK3SscD3wIdFuVJC w TMQfD1OtaVKhWWbdB985JWkcJ wS5MYOafeYjJ7VzOBTndGidDp R6j2B0Ri4MVf26AV05AJ61iOE g k7H2fYZ7L0ExTWQpmfcnvhobu ZE8MWJyPNHvbA27Tz0tgLxyAa 6iTEJfENK7GNAslQAiH0KtzG0 y SkTzAOLmMFWfW0WheKLfVUlrH 749OIfuRrX3DJVkvoEtF4LbGR SqlVgnWwQ9b0Q1Vs1ZXTzdmau 8 T2SzYbtsjJL+TA13BTThMU80f OEgjVUcx6lmwJf5OzYiVETxJM G6lEsfJLlnh9MiRIOuJ85pfKV w c2U6 (more content not included)... Normal [facility] Auto Diffon 02-18-2022 Basophils/100 WBC (Bld) 0.9 % Normal 0.0-2.0 [facility] Comment on above: Order Comment: Order Added by Discern Expert. Performed By: #### 2 [id number] ####[facility] [address] [place] [id number] Basophils/Leukocytes Auto (Bld) [Pure # fraction] 0.1 E9/L Normal 0.0-0.2 [facility] Comment on above: Order Comment: Order Added by Discern Expert. Performed By: #### 2 [id number] ####[address] [address] Eosinophils/100 WBC (Bld) 7.0 % Normal 0.0-8.0 [facility] Comment on above: Order Comment: Order Added by Discern Expert. Performed By: #### 2 [id number] ####[address] [address] Eosinophils/Leukocytes Auto (Bld) [Pure # fraction] 0.6 E9/L High 0.0-0.5 [facility] Comment on above: Order Comment: Order Added by Discern Expert. Performed By: #### 2 274226, 1392000, 49407649, 71695409, 2290380 ####[address] [address] Lymphocytes/100 WBC (Bld) 33.5 % Normal 14.0-50.0 [facility] Comment on above: Order Comment: Order Added by Discern Expert. Performed By: #### 2 744136, 4743995, 92180949, 74165381, 8810272 ####[address] [address] Lymphocytes/Leukocytes Auto (Bld) [Pure # fraction] 2.9 E9/L Normal 1.0-4.0 [facility] Comment on above: Order Comment: Order Added by Discern Expert. Performed By: #### 2 915426, 3115090, 01464662, 13687550, 8695539 ####[address] [address] Monocytes/100 WBC (Bld) 8.4 % Normal 4.0-14.0 [facility] Comment on above: Order Comment: Order Added by Discern Expert. Performed By: #### 2 473447, 7557803, 99050563, 48519285, 5907460 ####[facility] [address] [place] [address] Monocytes/Leukocytes Auto (Bld) [Pure # fraction] 0.7 E9/L Normal 0.2-1.0 [facility] Comment on above: Order Comment: Order Added by Discern Expert. Performed By: #### 2 559255, 1407650, 01058341, 64858250, 4957092 ####[address] [address] Neutrophils/100 WBC (Bld) 50.2 % Normal 36.0-75.0 [facility] Comment on above: Order Comment: Order Added by Discern Expert. Performed By: #### 2 027273, 7590428, 60752989, 20520778, 8535050 ####[address] [address] Neutrophils/Leukocytes Auto (Bld) [Pure # fraction] 4.3 E9/L Normal 2.0-7.5 [facility] Comment on above: Order Comment: Order Added by Discern Expert. Performed By: #### 2 024524, 7053786, 99113490, 39182779, 0231587 ####[facility] [address] [place] [address] CBC w/ Auto Diffon 2 Erythrocyte distribution width (RBC) [Ratio] 14.6 % High 10.9-14.2 [facility] Comment on above: Performed By: #### 2 877613, 3820100, 80122459, 94806884, 0910052 ####[facility] [address] [place] [address] Hematocrit (Bld) [Volume fraction] 45.5 % Normal 34.0-46.0 [facility] Comment on above: Performed By: #### 2 008284, 7599766, 31526390, 63063915, 6907492 ####[facility] [address] [place] [address] Hemoglobin (Bld) [Mass/Vol] 15.0 g/dL Normal 12.0-16.0 [facility] Comment on above: Performed By: #### 2 055622, 3676149, 41021539, 07327524, 6705671 ####[address] [address] MCH (RBC) [Entitic mass] 29.6 pg Normal 27.0-34.0 [facility] Comment on above: Performed By: #### 2 596395, 2737379, 55992542, 40420222, 9735458 ####[address] [address] MCHC (RBC) [Mass/Vol] 33.0 g/dL Normal 31.4-36.0 [facility] Comment on above: Performed By: #### 2 880137, 2839298, 48313880, 09760053, 6727945 ####[address] [address] MCV (RBC) [Entitic vol] 89.7 fL Normal 80.0-100.0 [facility] Comment on above: Performed By: #### 2 584743, 4911753, 97124454, 21203859, 4033132 ####[address] [address] Platelet mean volume (Bld) [Entitic vol] 10.5 fL Normal 6.4-10.8 [facility] Comment on above: Performed By: #### 2 283404, 6604077, 81483845, 19883869, 8138010 ####[address] [address] Platelets (Bld) [#/Vol] 339.0 E9/L Normal 150.0-500. 0 [facility] Comment on above: Performed By: #### 2 372223, 7595831, 94861534, 93675429, 9280587 ####[facility] [address] [place] [address] RBC (Bld) [#/Vol] 5.1 E12/L Normal 4.3-5.9 [facility] Comment on above: Performed By: #### 2 569581, 1035201, 40589688, 89467578, 5870208 ####[facility] [address] [place] [address] WBC corrected for nucl RBC Auto (Bld) [#/Vol] 8.6 E9/L Normal 4.0-11.0 [facility] Comment on above: Performed By: #### 2 742980, 8609479, 69127598, 64072006, 4334329 ####[facility] [address] [place] [address] CHEMISTRYOrdered By: SYSTEM SYSTEM on 02-18-2022 Albumin [...] rate/Area] mL/min/1.73 m2 Normal >=59mL/min /1.73 m2 FT Chem S GFR/1.73 sq M.predicted among non-blacks MDRD (S/P/Bld) [Vol rate/Area] mL/min/1.73 m2 Normal >=59mL/min /1.73 m2 [facility] Chem S Globulin (S) [Mass/Vol] 3.6 g/dL [...] 11 mg/dL Normal 5 - 21 mg/dL FT Remisol Urea nitrogen/Creatinine [Mass ratio] 16 mg/mg Normal 10 - 20 FT Remisol CMPon 02-18-2022 Albumin [Mass/Vol] 4.3 g/dL Normal 3.3-5.0 [facility] Comment on above: Performed By: #### 2 931998, 9465740, 84858670, 03771035, 9625847 ####[facility] [address] [place] [address] Albumin/Globulin (S) [Mass conc ratio] 1.2 Normal 1.1-2.2 [facility] Comment on above: Performed By: #### 2 842087, 6552703, 36538532, 21450277, 6162361 ####[facility] [address] [place] [address] ALP [Catalytic activity/Vol] 80 Int._Unit/L Normal 21-98 [facility] Comment on above: Performed By: #### 2 080532, 3335504, 24243834, 26157004, 0738045 ####[facility] [address] [place] [address] ALT No additional P-5'-P [Catalytic activity/Vol] 46 Int._Unit/L Normal 6-46 [facility] Comment on above: Performed By: #### 2 608179, 5630820, 46116041, 68739726, 2560590 ####[facility] [address] [place] [address] AST [Catalytic activity/Vol] 37 Int._Unit/L Normal 5-43 [facility] Comment on above: Performed By: #### 2 441799, 9410815, 19499591, 41837608, 1617191 ####[facility] [address] [place] [address] Bilirubin [Mass/Vol] 0.8 mg/dL Normal 0.0-1.1 [facility] Comment on above: Performed By: #### 2 589169, 0883655, 73346139, 93552580, 9404316 ####[facility] [address] [place] [address] Creatinine [Mass/Vol] 0.7 mg/dL Normal 0.5-1.3 [facility] Comment on above: Performed By: #### 2 199884, 2440562, 62804402, 87467452, 7032111 ####[facility] [address] [place] [address] Globulin (S) [Mass/Vol] 3.6 g/dL Normal 1.4-4.0 [facility] Comment on above: Performed By: #### 2 326897, 3656256, 21852631, 27231334, 3248572 ####[facility] [address] [place] [address] Protein [Mass/Vol] 7.9 g/dL High 6.0-7.8 [facility] Comment on above: Performed By: #### 2 696145, 1014727, 72456761, 82933720, 9159054 ####[facility] [address] [place] [address] Urea nitrogen [Mass/Vol] 11 mg/dL Normal 5-21 [facility] Comment on above: Performed By: #### 2 435227, 3376229, 21646619, 11927345, 3224221 ####[facility] [address] [place] [address] Urea nitrogen/Creatinine [Mass ratio] 16 No Units Normal 10-20 [facility] Comment on above: Performed By: #### 2 834020, 0441614, 29447717, 86480961, 4730175 ####[facility] [address] [facility] [place] [address] Anion gap [Moles/Vol] 12 mmol/L Normal 6-16 [facility] Comment on above: Performed By: #### 2 270234, 3000296, 82367384, 88385049, 9642531 ####[facility] [address] [place] [address] Calcium [Mass/Vol] 9.6 mg/dL Normal 8.9-11.1 [facility] Comment on above: Performed By: #### 2 356227, 2746695, 53473621, 71502345, 6684896 ####[facility] [address] [place] [address] Chloride [Moles/Vol] 105 mmol/L Normal 101-111 [facility] Comment on above: Performed By: #### 2 052261, 5937765, 48735422, 27582491, 5191891 ####[facility] [address] [place] [address] CO2 [Moles/Vol] 27 mmol/L Normal 21-31 [facility] Comment on above: Performed By: #### 2 886417, 6557662, 53745864, 21126653, 1776376 ####[facility] [address] [place] [address] Glucose [Mass/Vol] 69 mg/dL Normal 55-199 [facility] Comment on above: Result Comment: If t his glucose result represents a fasting glucose, interpretation should refer to the following reference range: 55-99 mg/dL Performed By: #### 2 808343, 9904260, 74033142, 55355516, 0408877 ####[facility] [address] [place] [address] Potassium [Moles/Vol] 3.9 mmol/L Normal 3.5-5.3 [facility] Comment on above: Performed By: #### 2 730318, 0058884, 26916271, 48334314, 1536957 ####[facility] [address] [place] [address] Sodium [Moles/Vol] 140 mmol/L Normal 135-145 [facility] Comment on above: Performed By: #### 2 370948, 6000260, 97453376, 79600320, 5226048 ####[facility] [address] [place] [address] Consent for Treatmenton 01-31 Consent for Treatment [id number]#1.00CD:12 7 Normal [facility] Discharge Instructionson Discharge Instructions [id number]#1.00CD:1 27 Normal [facility] ED Clinical Summaryon 2021 ED Clinical Summary (Inserted Image. Kelsy ble to display) [address] [address] ED Clinical Summary Person Information Name: SOFIA WIGGINS[place] Age: 21 Years : 2000 Sex: Female Language: [place] PCP: Wandy Dorado DO Marital Status: Single [...] 02/18/2022 15:44:15 02/18/2022 15:44:15 02/18/2022 15:44:15 ADDRESS: [id number] [facility] [id number] PHYS DOC NOTES: MEDICAL INFORMATION: Prescriptions Given: PATIENT EDUCATION INFORMATION: Instructions: Epidermal Cyst, Jsci-bp-Wdcm Follow up: With: Address: When: Sara MCGRATH, [place] In 3 days 02/21/2022 DIAGNOSIS: 1:Epidermoid cyst of skin of chest; 2:Chest pain Normal [facility] ED Note-Physicianon 02-19-20 ED Note-Physician Basic Information [...] few weeks ago she was seen at [facility] ED and had an abscess drained; [...] was given a couple of Percocet by [employer] and that helped. Patient also states that [...] will also work on obtaining labs from [facility]. Patient to be given morphine and Zofran for her pain. Aspirin for her chest pain. Vital Signs: Reviewed the patient's vital signs. Nursing Notes: Reviewed and utilized the nursing notes. Bevel Operator: not needed - patient preferred language is [place]ican. Old Medical Records: The patient's available past medical records and past encounters were reviewed. Summary of pertinent elements include: Patient was initially seen on 01/08/2022 for an abscess of her chest wall. These records were not sent to us. [facility] sent over two most recent visits [...] Percocet prescri (more content not included)... Normal [facility] Comment on above: Result Comment: Elec tronically [...] Follow these instructions at home: ? Take xzun-xwb-xzofkmb and prescription medicines only as told by [...] cyst, or to remove it. ? Take hkyl-xps-lhxqwnt and prescription medicines only as told by [...] Reviewed: 07/28/2019 Elsevier Patient Education ? 2019 [employer] Normal [facility] ED Patient Summaryon 022 ED Patient Summary (Inserted Image. Kelsy ble to display) [place] [id number] Patient Discharge Instructions Person Information Name: SOFIA WIGGINS Age: 21 Years Arrival Date: 02/18/2022 11:49:36 Discharge Diagnosis: 1:Epidermoid cyst of skin of chest; 2:Chest pain Primary Care Physician: Wandy Dorado DO Provider Information Primary Provider: Cheng Saldaña DO [employer] Consultant:Fabi Iraheta PA-C The exam and treatment you received in the Emergency Department were for an urgent problem and are not intended as complete care. It is important that you follow up with a doctor, nurse practitioner, or physician?s embalmer assistant for ongoing care. If your symptoms [...] participating provider. Patient Education Materials: Epidermal Cyst, Tets-ct-Dtio A MESSAGE TO ALL PATIENTS REGARDING OPIOIDS PRESCRIPTION OPIOIDS: WHAT YOU NEED TO KNOW Prescription opioids can be used to help relieve geimbuyc-fd-cpjcyi pain and are often prescribed following a [...] be struggling with addiction, tell your health home care consultant and ask for guidance or call [facility] National Helpline at [phone]-RQXI. f Source: [place] Department of Health and (more content not included)... Normal [facility] HEMATOLOGYOrdered By: SYSTEM SYSTEM on 02-18-2022 Basophils/100 [...] 14.6 % High 10.9 - 14.2 % FT HemeAutoSS Hematocrit (Bld) [Volume fraction] 45.5 % Normal 34.0 - 46.0 % [facility] HemeAutoSS Hemoglobin (Bld) [Mass/Vol] 15.0 g/dL Normal 12.0 - 16.0 gm/dL [facility] HemeAutoSS MCH (RBC) [Entitic mass] 29.6 pg Normal 27.0 - 34.0 pg [facility] HemeAutoSS MCHC (RBC) [Mass/Vol] 33.0 g/dL Normal 31.4 - 36.0 gm/dL [facility] HemeAutoSS MCV (RBC) [Entitic vol] 89.7 fL Normal 80.0 - 100.0 fL [facility] HemeAutoSS Platelet mean volume (Bld) [Entitic vol] 10.5 fL Normal 6.4 - 10.8 fL [facility] HemeAutoSS Platelets (Bld) [#/Vol] 339.0 E9/L Normal 150.0 - 500.0 E9/L [facility] HemeAutoSS RBC (Bld) [#/Vol] 5.1 E12/L Normal 4.3 - 5.9 E12/L [facility] HemeAutoSS WBC corrected for nucl RBC Auto (Bld) [#/Vol] 8.6 E9/L Normal 4.0 - 11.0 E9/L [facility] HemeAutoSS Outside Recordson 02-18-2022 Outside Records [id number]#1.00CD:1 27 Normal [facility] Prescriptions/Work Noteson 0 02-18-2022 Prescriptions/Work Notes [id number]#1.00CD:1 27 Normal [facility] SEROLOGYOrdered By: Tod crow on 02-18-2022 HCG.beta subunit (U) [Moles/Vol] Negative Normal [facility] Man Sero Troponin 0 Hr.on 02-18-2022 Troponin I.cardiac [Mass/Vol] ng/mL Low 10.10-27.1 0 [facility] Comment on above: Result Comment: The 95% CI (Confidence Interval) PPV (Positive Predictive Value) for myocardial infarction in females is 38 pg/mL, in males 51 pg/mL. The results should be used in conjunction with clinical conditions of myocardial infarction. (Access High Sensitivity Troponin I Instructions For Use, Al[employer]so [place], June 2018) Performed By: #### 2 444282, 4583323, 69871691, 26182183, 3112079 ####[facility] [address] [place] [address] U BetaHcg Qualon 02-18-2022 HCG.beta subunit (U) [Moles/Vol] Negative Normal [facility] Comment on above: Performed By: #### 2 1597155, 54065947 ####[address] [address] UA With Cult Reflexon 2021 Epithelial cells.squamous LM.HPF (Urine sed) [#/Area] 0-2 Normal 0-2 [facility] Comment on above: Performed By: #### 2 7127505, 32995590 ####[facility] [address] [place] [address] [place].plasma/[place] .RBC (Bld) [Mass ratio] 0-3 Normal 0-3 [facility] Comment on above: Performed By: #### 2 6009353, 86959755 ####[facility] [address] [place] [address] WBC LM.HPF (Urine sed) [#/Area] 0-5 Normal 0-5 [facility] Comment on above: Performed By: #### 2 5555850, 25687403 ####[facility] [address] [place] [address] Bilirubin Ql (U) Negative Normal Negative [facility] Comment on above: Performed By: #### 2 9122755, 16098209 ####[facility] [address] [place] [address] Clarity (U) CLEAR Normal Clear [facility] Comment on above: Performed By: #### 2 2006342, 64057282 ####[facility] [address] [place] [address] Color (U) STRAW Invalid Interpretation Code [facility] Comment on above: Performed By: #### 2 7678094, 22451135 ####[facility] [address] [place] [address] Glucose Test strip (U) [Mass/Vol] Negative Normal Negative [facility] Comment on above: Performed By: #### 2 6660122, 35393749 ####[address] [address] Hemoglobin Ql (U) TRACE Abnormal Negative [facility] Comment on above: Performed By: #### 2 8734793, 52104629 ####[address] [address] Ketones (U) [Mass/Vol] Negative Normal Negative [facility] Comment on above: Performed By: #### 2 1923233, 35602336 ####[address] [address] Nitrite Ql (U) Negative Normal Negative [facility] Comment on above: Performed By: #### 2 5245355, 60174193 ####[address] [address] pH (U) 6.5 [pH] Invalid Interpretation Code 5.0-9.0 [facility] Comment on above: Performed By: #### 2 5802529, 71164263 ####[address] [address] Protein (U) [Mass/Vol] Negative Normal Negative [facility] Comment on above: Performed By: #### 2 0529397, 77391859 ####[address] [address] Specific gravity (U) [Rel density] <=1.005 Invalid Interpretation Code 1.005-1.03 0 [facility] Comment on above: Performed By: #### 2 7568341, 21522732 ####[address] [place] [address] Type of Urine collection method Random Urine Normal [facility] Comment on above: Performed By: #### 2 5526271, 17423887 ####[facility] [address] [place] 8[address] Urobilinogen Qn (U) 0.2 {Kevin'U}/dL Normal 0.0-1.0 [facility] Comment on above: Performed By: #### 2 2000528, 08273225 ####[facility] [address] [place] [address] WBC Auto Ql (U) Negative Normal Negative [facility] Comment on above: Performed By: #### 2 4320641, 21169139 ####[facility] [address] [place], [place] [address] URINALYSISOrdered By: Tod camp on 02-18-2022 Bilirubin [...] PM) Normal Negative [facility] UA Auto SS [place].plasma/[place] .RBC (Bld) [Mass ratio] 0-3 /HPF Normal 0-3/HPF [facility] UA Auto SS Nitrite Ql (U) Negative (02/18/22 2:39 PM) Normal Negative [facility] UA Auto SS pH (U) 6.5 *NA* (02/18/22 2:39 PM) Invalid Interpretation Code 5.0 - 9.0 [facility] UA Auto SS Protein (U) [Mass/Vol] Negative (02/18/22 2:39 PM) Normal Negative [facility] UA Auto SS Specific gravity (U) [Rel density] <=1.005 *NA* (02/18/22 2:39 PM) Invalid Interpretation Code 1.005 - 1.030 [facility] UA Auto SS UA Spec Desc Random Urine (02/18/22 2:39 PM) Normal [facility] UA Auto SS Urobilinogen Qn (U) 0.6925301 {Kevin'U}/dL Normal 0.0 - 1.0 EU/dL [facility] UA Auto SS WBC Auto Ql (U) Negative (02/18/22 2:39 PM) Normal Negative [facility] UA Auto SS WBC LM.HPF (Urine sed) [#/Area] 0-5 /HPF Normal 0-5/HPF [facility] UA Auto SS XR Chest 2 Viewson [...] Holder M.D. Transcribed by: DARWIN Technologist: KENYA Normal [facility] eGFRon 02-18-2022 GFR/1.73 sq M.predicted among blacks MDRD (S/P/Bld) [Vol rate/Area] mL/min/{1.73_m2} Normal >=59 [facility] Comment on above: Order Comment: Order added by Discern Expert. Result Comment: eGFR is race adjusted. AA=. Performed By: #### 2 892927, 1607173, 34131234, 97618116, 6513721 ####[facility] [address] [place] [address] GFR/1.73 sq M.predicted among non-blacks MDRD (S/P/Bld) [Vol rate/Area] mL/min/{1.73_m2} Normal >=59 [facility] Comment on above: Order Comment: Order added by Discern Expert. 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 Kidney failure is indicated at less than 15 mL/min/1.73m2. Performed By: #### 2 657023, 3705714, 73705630, 93500513, 7709407 ####[facility] [address] [place] [address] Coding Summary.on 04-30-2021 Coding Summary. CD:[id number] Gh0bW w+PGhlYWQ+WJ7EKLGtK46bbHA cxU5EF7xRLV9XUUVWYFGQAW9U IR9ifDC8YOyuP1HdpvTi PxpjqCFxMM77OHo4RNU1pBxnC SssdZ1jeETzC8k1EpXuRX69iX 19BRguGSKaTmM0UmUsewiivHX y U3huQlCthZCaJpc+PHRhYmxlI HdpZHRoPScxMDAlJyBzdHlsZT 8nYl6yQDSeXJOufCfppLSxXnP j a5giJTMlKUymHJ6puXoeJ7Ffm VM7PRBro0n4Fa22wMX+PHRkIH E8mQukTLjwn726TiRsi3gkZAR 3 rTUwBOlqPOX5B59xm1D8NXRpW LOjPPO9sGE9gX9nsSvqmspbN7 XvjRVzQwL6FAK4sDKjcS9laDl n yrmwvM6tHml+V20VHJ3UDUKBW X8LGjd7J6HnAuwncEG+PC90YW BhHP41hWTrkSNnw5lgpRb4OsC w FCPrPGB4iTkoVPwhy4FaZAIwC 71muCPpg6G5FXDtyEspkFTeWt ItqMB2eO0bXOrgwzrya6glkfs n Vcyop9ocwm39bZ34N64aQXhwF TIvVSN8PJKdXJCpoDlghz8dpT 9wIi8+VVrlt0mjp6nokHe2RuV w ZXSsdpNeiNdcJQE3z8DjHm18B 2WeuYkby5MlLda9bk27aAWii0 C0uMD4UBedWRQazN7eQShdFbK 6 CHCzVqMliF04sORoRHkjGa2mq EjirAeiPL5hTMQftfdoZGBxxN 0kAZWkwHGtwFjoVW3lTAXxcoc m b743MrFnVWN4MPIjdSJfT9Wfc C8vOcClNBHhVIWiY9NqkJKaBG jsU828OEucMaB4BXXkuaVbM7P s NFYxuZekQzC6h9E3Bg5Nt0Ujk qxtHDP3KBxmBSB5CmG9LvVuLp B8M0FfFme4CYOsqYzjXN6tW3L h NSCudbpqvktxbOK5TFZuGUIoy G03fFUvPTdnNf4mf7O6s280UQ TaWKLnvL13Sq0eiSjkQLYdbUG U zL8hstrqh7idjdccZuAjURTjD Yz5HSc4FCCscAgrFnIcHLK9Kq D8OJA9dFTcvJ8fhHlnxsebnY2 w Oyc+S00omF4aVAC6AJS7rodiP LEwpyHhFN37RI42E2DxOvdddY FibGU+KPJmfxMllNvkEM5iRxR j h8ngj4GjDFwbR8HsMWMrPPfkL ym1XPWhRHQ9uHQ4hS6fXUBnLO isr0H1sKV0U8WyftCtst1il5q s CZVzTLlrC52ysUPjl4C3LVNhs LA3LJUcxEmcLqNqfS11Enf+PG RmrJjuh9EvGllkn1jxx7qffPi 9 ZhPwKLYlhbJvnFfsMGI7i5PeD h73E16dRRspGNYyDJNmIBMuTA CuzLgrwk4wfN3kNk4+PGNvbCB 3 dKI5aA0xPFFvFdV7IOczQ238R pBgcRFxPtzkq3vwf1lwxEn2Ya IgDRZyjuMewXwxKLN6m3UiYw8 8 K50wVGlcRSQvNRLlEFRuEQEjj Ikxiu4asI5yPu4+ZI6ku4osif 12vW58zZQ+SMBhASS7kIebYGb w WPXauT6kXIfhNcR7HPXfMaXay T43wLRhFKbqSr2thJfpsUrsMT 0uVTVcnpbdc293XkTfd7qgDSM w xCZiDRlmGQZ4M86ts6O0UXLhD FYzOGC6oMB9oH1swUhmtbmgkJ VwjIuszrUhvYeiXIxxNFrsD21 6 IHRvcDsnPlBhdGllbnQgTmFtZ Br1N0MnTbo5BOHzyDmfNL9vdS OsXQhxYs1odMffmXrhAK1jNXW p dmrbf705ZsAyk9zeSEUeaLJnR PpiOXG7I19bk0T0JLZkAMOkCL A6bKN0iG4egNtrmazaqDCvrHr g ggDtxYksHRasZPehW687RMLqc MluLiJcciJjNXIwzEO7VW26EY 75dCIwe2Y8eGI4V7IsYENwowq t zbevoBI3IAJfZRZuzX12Bx7nv KpmLe6gXIRwRAC0XZKzySHiY2 MfqK5gIrJjRZSyRMBoA0MwbSH t CNajL637BXfaPkK2CTArwpNmE 6TeFUZzlKkfCoU4h3O6Cm8YD5 H7JX34PT53jZNvw5T6iMW8Q4B h RNYdgyihooqcqRD0KIOpLWNrb M44Nv9vqOhxXb7lYMGbUBQ5DO TcyTDjP7LutZ5nFcEgWJWlYOF w S9EcbIIyGNhvV776PAieUpB3G AJvnvBnQ5MaQHSvnTbmEaY8w8 R6Fh8UNGr9EW69ND39uKKxd4D 5 oER5V3NbDSPgeilxldqzyTA4B WBlMBKegP67Mc6rlEvkQm6tYI ZvRLZ7UNVntAQiN8ChfU7aLqQ j IEAdSRIzF0UqkOVgJNkkT331D VnnMnR8QPEkssBmU1DnUMPbeA hjIzP5n3N0Pt0GHMLsQA69YQB 5 lQS8WO41PT25D2VjNxgaoJEvu +PHRhYmxlIHdpZHRoPScxMD UwFaIddMawPS3eIi5mFEGkFWE v fMcyaYZsLpHfy1vwSNTtQAqcX G3rlQkzS6XioNQ5WQCpr8g8Km 02V09nU8JzvBE+SINgjMO3iGA 0 gF7xRwInRvM3FPcaG171CxQxr OUvHfodk3jhs3ijtGn3MjT2YR MptlRubSuaWCU5n7JiUb22O35 s IHdpZHRoPSIxNSUiIHZhbGlnb i1yiN1xFf6+UUHucJS1pDP0aT 6hEhDxBmB6SKybY015UiKjoHD v Nakxg4xgv9mrpOc5MzArLVIdp mEbmLxdKXW0g4PxWd87S8SuyJ byg7MdUjm8lo42oDZlm6H1bOW 9 P9XzZMWkswdpaKOqrFhkLJ6tO BCjiocnJCJqiD7gLDIqY4q9Wt BjGkD6UXifF1AzqpE5OCNafEI g GOilLFM4B60iv3I8OILkQIJuC NB4nVU6vS7opZeyurtqeFUkyK ljnsVxcPhtSQtuGSkcC591FRT v vXbsEQAikD5cSYJsuUDpqYfbD A1aDRGtsniqKwOOUUTxCE6VI1 9MRVRURTwvdGQ+ZHYsPOP7bRx l ATdrSIHbwO8pHRRtK3k9UsApE bX0JKkiQ4TfGLJkgkecKs32xM 0dLgUrXrD7EDvqY3JipaH4XQE w xKGhPLfbVHV8P87ry6L2MXSjY KOkVUF2zSG1hD4tzEdxirhkhB BjfJezgoHhqJlxWXmdIEkhH78 6 LBSqqPvzBjGxMqCwLzR2KTn0H 6HtOwf4DNUqqParFY6vwWGjIY lmRy4acSjpwCtwBR0tGBJxbzr w IGInfY5sMQWteFWomWmrSS0gF ZKxqcrpe090DlPeKAZ5YKIkfI AzL3EzdL0zRuBvYWJsUKGfJ0X l bCHmZCfdM854CNgrKcW2IAZab zOzG5TrVQSccQsyCdR6f6X3Rg 4yMiBZZWFyczwvdGQ+PHRkIHN 0 bWdqNDfzFESijE0kVZAmL7i1A nKhPsY7YYzlN1TbVSPsdxbhQe 77dT7bLbNyWzC3YDfwB0JndzB 6 BTMgrLIvNLdzTJU4P72lt4T0Y MCzRHEoAYE6wIS2zI9mvHxque ogbGVmdDsgdmVydGljYWwtYWx p I085DXDhcEyaKlIkxDCtAXlsj GQ+VPCmOYS8vJezZKqpRMZkvL 7yCKLxK8i3NoOaMjX5AAvpA1V h IQHeitbdRc41sI5cUdIlHsY9X InvR2AyvsE4LPDjaWJrCJkgTS P0Z42nb4U0GWSmRSScZKV5uXT 4 kA3yxPebyrssxOIxwDqbfbDur QptIVhzBMnaP782ULZsqStuMr NbZMWrQW2zgPdgvET+DF97ka9 8 B9KiZfhtZoa4XZXuNZN3mUL1j Y0nEOUjOZxbu7Q6gJV6V4Ijzt Dbze7ni9ghIUOzKQkoH98itHS w c9Y5GGBuaZJ1WFQhcRaoHlPfs G93Oyc+EGTadKpvg6KtCfzat9 odt7peuTe8GuJfGQRpjeZceEl u DSV2n9KtXk55Z25jKJybOQYeL IVxSPDaVSImmGfhmq0dbK9vAl 8+BRZnnQF8oOL9sB3oFgUvSiK 2 RHquG682NdQroPSwEnzru0bxu 2dnwIg2YfUqMQZuikExiMfoJA R6m3SkHa55K0JytOwph3CrNgh 0 ck14tXOyk9J0wGB3F9VbHVTdk ipelGIxmIjeWK9cEDVdmiefMA DfuD8fNQYvZ4b1EhAuYnF8SFp u O2DtcmD4GTUsxDXaKIFodULCm Z3eiqjsj6tdnklyAsUfBNFuYV l9AKx4ZWUswLwnZzJhBDV5EhG 2 CTG0jXYltP3lnXdaameyqS3qN yc+CUx0c7xveWYfON8mdDE3PB 29OZ35oFRmq9V5lRM0N5OgDKJ p ovcwklclaAW2TLWkGWJghJ90T e9ltVknJq1bJRDvCEB9KEDxeK GvC8IazT6gZmBdLWCcXNTmC6X l qMOrMHzvA558XKjoWcP6JESor iKiG5ApLINuaDnvNvI0x3P0Tr 4JPO43AE00RM01jUEiu4Q4oEL 9 H5FnLSEmnkrpbwdgoIQ8CYKbK CEaxE84Ui3hpBhaSd6jMCGwOI E7IWIksRJgI6VhbY8yYtUqDJT w THFvW8JahTUuMAztX180QWmmY uP8WDLiozEqN6YtBKDyvOchWt P1h3Z3Nt9GEy30YO16OD18bOE g p7R3oXU2G1WdWVZzxjmtkkqfv LV1FFMnLIJeoK86Ux0liDwyRk 0aBYSyDLY2PPRdbMOnM0FpcY7 y EfPnIHSnPBLdZ3FcnHNgAGwjC 950TOyyMtR6NUQoekUxU5LyGI NznElaNxC7b8U0Ng0WJFafiwi 8 Z2SjWznlgUI+XE02MFUrUU32c HMzcBLhl4oyuZb8FgMtPTPzDH Z4wDayPNhqy9FhWKMdF17uuYJ w c2U6 (more content not included)... [facility] ED Note-Physicianon 04-30-20 ED Note-Physician Basic Information [...] Appropriate mood & affect. Integumentary: Warm, Dry, [place] Medical Decision Making Plain film x-rays were [...] Oral, BID Follow-up With When Contact Information Wadny Dorado In 3 days 05/02/[address], [facility] C, [address] [place] [address]- [facility] (1) Additional Instructions: Ice to the wrist, [...] Diagnostic Results No qualifying data available. [facility] Comment on above: Result Comment: Elec tronically [...] Lance M.D. Transcribed by: DARWIN Technologist: ZAK [facility] Consent for Treatmenton 04-03 Consent for Treatment [id number]:12 7 [facility] Discharge Instructionson Discharge Instructions [id number]:127 [facility] ED Clinical Summaryon 2020 ED Clinical Summary (Inserted Image. Kelsy ble to display) [address] [address] ED Clinical Summary Person Information Name: SOFIA WIGGINS/[facility]_Dg Age: 20 Years : 2000 Sex: Female Language: Costa Rican PCP: Wandy Dorado DO Marital Status: Single [...] 04/29/2021 17:51:20 04/29/2021 17:51:20 04/29/2021 17:51:20 ADDRESS: [address] [place] [address] [place] [id number] PHYS DOC NOTES: MEDICAL INFORMATION: Prescriptions Given: [...] Address: When: Wandy Dorado [address], Brenda C, [facility] 1 [place] [address] Business (1) In 3 days 05/02/2021 Comments: Ice to the wrist, wear the splint at all times. Medications as directed. DIAGNOSIS: 1:Tendinitis of wrist; 2:Left wrist pain [facility] ED Patient Education Noteon 04-29-2021 ED Patient [...] by your health care provider. ? Take dbta-kzf-kkkawwh and prescription medicines only as told by [...] 10/16/2001 Document Revised: 04/26/2019 Document Reviewed: 03/09/2019 [employer] Patient Education ? 2020 Elsevier Inc. Wrist Pain, Adul (more content not included)... [facility] ED Patient Summaryon 021 ED Patient Summary (Inserted Image. Kelsy ble to display) [place] [id number] Patient Discharge Instructions Person Information Name: SOFIA WIGGINS Age: 20 Years Arrival Date: 04/29/2021 15:18:05 Discharge Diagnosis: 1:Tendinitis of wrist; 2:Left wrist pain Primary Care Physician: Wandy Dorado DO Provider Information Primary Provider: Alton Francisco DO [employer] Ad[employer] Consultant:Andrew Rainey PA-C The exam and treatment you received in the Emergency Department were for an urgent problem and are not intended as complete care. It is important that you follow up with a doctor, nurse practitioner, or physician?s embalmer assistant for ongoing care. If your symptoms become worse or you do not improve as expected and you are unable to reach your usual health care provider, you should return to the Emergency Department. We are available 24 hours a day. FELICIANO SOFIA has been given the following list of patient education materials, prescriptions and follow-up instructions: Follow-up Instructions: With: Address: When: Wandy Dorado [address] [facility], [facility] C, [facility] 1 [place] [id number] [facility] () In 3 days 05/02/2021 Comments: Ice to [...] opioids can be used to help relieve zlonmqmo-fr-lbrvlt pain and are often prescribed following a [...] your he (more content not included)... [facility] Ambulatory Clinical Summaryo n 04-12-2021 Ambulatory Clinical Summary {[id number]}C [id number] [facility] Medicine Video Visit - Telehealthon 04-09-2021 Family [...] Contact Information Barbara Sen Only if needed [email or web address] Additional Instructions: Patient Education Health Maintenance, Female [...] breast: Mother. [1] Ambulatory Comprehensive Intake FT; Seb GONZALEZ Wandy Sade 04/09/2021 15:52 EDT [facility] Comment on above: Result Comment: Elec tronically [...] Ask your heal (more content not included)... [facility] Provider Letteron 04-09-2021 Provider Letter (Inserted Image. Kelsy ble to display) April 09, 2021 SOFIA VALENTINE [address] [place] [address] To Whom It May Concern, Please excuse above patient from work. Date of Illness: From: 04/03 To: 04/09 May Return to Work On:04/10 Sincerely, Family Medicine [address] [address] [facility] CHEST, SPECIAL VIEWS(DEBUB/B UCKY)on 09-30-2018 CHEST, SPECIAL VIEWS(DEBUB/UMAIR) Name: SOFIA WIGGINS STUDY:CHEST, SPECIAL VIEWS(DEBUB/UMAIR); 09/30/2018 7:06 pm INDICATION:Signs/Symptoms : fall off hosre. COMPARISON:None. ORDERING CLINICIAN:JOHNIE WELLINGTON FINDINGS: CARDIOMEDIASTINAL SILHOUETTE:Cardiomediasti nal silhouette is normal in size and configuration. LUNGS:Lungs are clear. BONES:No acute osseous changes. IMPRESSION:1. No evidence of acute cardiopulmonary process.Electronically signed by: ARACELI GONZALEZ MD [facility] CT C-SPINE WO CONTRASTon CT C-SPINE [...] sinuses.Electronically signed by: JUAN JASSO MD [facility] CT HEAD WO CONTRASTon 2017 CT [...] sinuses. Electronically signed by: JUAN JASSO MD [facility] PELVIS, 1 OR 2 VIEWSon 09-30 PELVIS, 1 OR 2 VIEWS t Name: SOFIA WIGGINS STUDY:PELVIS, 1 OR 2 VIEWS; 09/30/2018 7:06 pm INDICATION:Signs/Symptoms : fall off horse last night. COMPARISON:None. ORDERING CLINICIAN:JOHNIE WELLINGTON FINDINGS:AP pelvis. The osseous structures and soft tissues appear normal. Nofracture or dislocation is noted IMPRESSION:Unremarkable pelvis Electronically signed by: ARACELI GONZALEZ MD [facility] Provider Note - ED v2on 09-03 [...] signs ofdeformity. No edema.Skin: Warm and dryNeuro: lock and dam repairer are grossly intact. No facial asymmetry. Moves all uninjuredextremities equally. GCS is 15. Differential Diagnosiscontusion, strain, sprain, muscle spasm, concussion, fracture, cranial bleed ED Course/Medical Decision Making:Patient is a 17-year-old female presenting for headache post-fall from a horseyeday. Vital signs stable. Exam remarkable for tenderness [...] patient to return to the Emergency Department. Wealso discussed medications that were prescribed (if any) [...] be present.Please call if questions. Johnie Wellington, [facility], PGY 3 HISTORY OF PRESENTING [...] a day SIGNIFICANT EVENTS: No documented data. 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 Data Referenced From Triage - ED 09/30/2018 06:34 PM [facility] Risk Screen - Adult Emergenc yon 09-30-2018 Risk Screen - Adult Emergency Preferred Language:Preferred Language: Preferred Language for Discussing Health Care (patient/designee)[place]ican Advanced Directives: Advance Directive Medicalno Advance Directive [...] Learning Preferencesverbal instruction Cultural Considerationsnone Developmental Considerationsnone Zoroastrian Considerationsnone Learning Assessment (Other Learner):Learning Assessment (Other [...] an injured patient at a Trauma Center ([facility] / [facility]): no Electronic Signatures:Kateryna TroyRN) (Signed 30-Sep-2018 19:18)Authored: Preferred Language, Advanced Directives, Family Violence Adult,Suicide / Depression, Learning Assessment (Patient), Learning Assessment (OtherLearner), Fall Risk Adult, Pressure Injury, Respiratory / Cough /TB,Smoking/Social History (Required age 13 or older), CAGE Last Updated: 30-Sep-2018 19:18 by Kateryna Troy (KYA) [facility] SHOULDER, CMPLT, MIN 2 VIEWS on 09-30-2018 SHOULDER, CMPLT, MIN 2 VIEWS Name: SOFIA WIGGINS STUDY:SHOULDER, CMPLT, MIN 2 VIEWS; 09/30/2018 7:06 pm INDICATION:Signs/Symptoms : fall off horse last night. COMPARISON:None. ORDERING CLINICIAN:JOHNIE WELLINGTON FINDINGS:Right shoulder three views. The osseous structures and soft tissuesappear normal. No fracture or dislocation is noted IMPRESSION:Unremarkable right shoulder Electronically signed by: ARACELI GONZALEZ MD [facility] Triage - EDon 09-30-2018 Triage - [...] at time of triage.).Onset of the Complaint: [id number] Date/Time: 30-Sep-2018 18:34Pain Rating (0-10): Rest: 8Vital Signs:Temperature: 97.1F ( 36.2C)Blood Pressure: 132/80 Mean:Heart Rate: 92Respiratory Rate: 18Pulse Oximetry: 97% on room air, no respiratory support. Height: 4 feet 11.00inches. 149.8 CMWeight: 135.0 pounds. Calculated 61.2 kg.Calculated BMI (kg/m2): 27.272 Calculated BSA (m2) 1.60 Cough lasting greater than 3 weeks: noPatient immunocompromised related to: N/ATravel outside of [place]: noAllergies: noLast menstrual period: 05-Ijv-7024YIB: 2 Symptoms Are POSITIVE For:facial pain and [...] 30-Sep-2018 18:38 by Regine Lundberg (KYA) [facility] Vital Signs Date Time Vital Sign Value Performing Clinician Facility 06-20-2025 10:59-0400 Body mass index (BMI) [Ratio] 34.16 kg/m2 Lexy Work Phone: [facility] 06-20-2025 10:59-0400 Body weight 78.02 kg Lexy Work Phone: [facility] 06-20-2025 10:59-0400 Diastolic blood pressure 74 mm[Hg] JorgeNanoOpto Work Phone: [facility] 06-20-2025 10:59-0400 Systolic blood pressure 110 mm[Hg] Lexy Work Phone: [facility] 05-23-2025 09:25-0400 Body mass index (BMI) [Ratio] 32.52 kg/m2 Wandy STANFORD Work Phone: [facility] 05-23-2025 09:25-0400 Body weight 74.28 kg Wandy STANFORD Work Phone: [facility] 05-23-2025 09:25-0400 Diastolic blood pressure 80 mm[Hg] Wandy STANFORD Work Phone: [facility] 05-23-2025 09:25-0400 Systolic blood pressure 112 mm[Hg] Wandy Kelly PA Work Phone: [facility] 04-24-2025 09:23-0400 Body mass index (BMI) [Ratio] 31.48 kg/m2 Jorge Milton DO Work Phone: [facility] 04-24-2025 09:23-0400 Body weight 71.89 kg Jorge Milton DO Work Phone: [facility] 04-24-2025 09:23-0400 Diastolic blood pressure 78 mm[Hg] Jorge Milton DO Work Phone: [facility] 04-24-2025 09:23-0400 Systolic blood pressure 108 mm[Hg] Jorge Milton DO Work Phone: [facility] 03-30-2025 15:49-0400 Body mass index (BMI) [Ratio] 30.54 kg/m2 [facility] 03-30-2025 15:49-0400 Body weight 69.76 kg [facility] Nurse [facility] 03-30-2025 15:49-0400 Diastolic blood pressure 76 mm[Hg] [facility] Nurse [facility] 03-30-2025 15:49-0400 Systolic blood pressure 120 mm[Hg] [facility] Nurse [facility] 01-13-2024 08:39-0400 Body height 151.1 cm Tiburcio Crawford DO Work Phone: [facility] 01-13-2024 08:39-0400 Body mass index (BMI) [Ratio] 33.96 kg/m2 Tiburcio Crawford DO Work Phone: [facility] 01-13-2024 08:39-0400 Body weight 77.56 kg Tiburcio Crawford DO Work Phone: [facility] 01-13-2024 08:39-0400 Diastolic blood pressure 82 mm[Hg] Tiburcio Crawford DO Work Phone: [facility] 01-13-2024 08:39-0400 Systolic blood pressure 122 mm[Hg] Tiburcio Crawford DO Work Phone: [employer] 12-01-2023 11:00-0500 Body height 125.27 cm Kayley Mo Other [employer] Other 12-01-2023 11:00-0500 Body mass index (BMI) [Ratio] 39.31 kg/m2 Kayley Mo Other [employer] Other 12-01-2023 11:00-0500 Body temperature 101.2 [degF] Kayley Mo Other [employer] Other 12-01-2023 11:00-0500 Body weight 61.69 kg Kayley Mo Other [employer] Other 12-01-2023 11:00-0500 Respiratory rate 18 /min Kayley Mo Other [employer] Other 12-01-2023 11:00-0500 SaO2% (BldA) [Mass fraction] 97 % Kayley Mo Other [employer] Other 09-24-2023 08:48-0500 Body height 149.86 cm DO Shauna Atkinson Work Phone: [facility] 09-24-2023 08:48-0500 Body temperature 97.4 [degF] DO Shauna Atkinson Work Phone: [facility] 09-24-2023 08:48-0500 Body weight 67.13 kg DO Shauna Atkinson Work Phone: [facility] 09-24-2023 08:48-0500 Diastolic blood pressure 56 mm[Hg] DO Shauna Atkinson Work Phone: [facility] 09-24-2023 08:48-0500 Heart rate 99 /min DO Shauna Atkinson Work Phone: [facility] 09-24-2023 08:48-0500 Respiratory rate 18 /min DO Shauna Atkinson Work Phone: [facility] 09-24-2023 08:48-0500 SaO2% (BldA) [Mass fraction] 97 % DO Shauna Atkinson Work Phone: [facility] 09-24-2023 08:48-0500 Systolic blood pressure 119 mm[Hg] DO Shauna Atkinson Work Phone: [facility] 01-09-2023 15:00-0500 Diastolic blood pressure 71 mm[Hg] DO Shauna Atkinson Work Phone: [facility] 01-09-2023 15:00-0500 Heart rate 76 /min DO Shauna Atkinson Work Phone: [facility] 01-09-2023 15:00-0500 Respiratory rate 16 /min DO Shauna Atkinson Work Phone: [facility] 01-09-2023 15:00-0500 SaO2% (BldA) [Mass fraction] 96 % DO Shauna Atkinson Work Phone: [facility] 01-09-2023 15:00-0500 Systolic blood pressure 107 mm[Hg] DO Shauna Atkinson Work Phone: [facility] 01-09-2023 11:40-0500 Body height 149.86 cm DO Shauna Atkinson Work Phone: [facility] 01-09-2023 11:40-0500 Body temperature 97.6 [degF] DO Shauna Atkinson Work Phone: [facility] 01-09-2023 11:40-0500 Body weight 79 kg DO Shauna Atkinson Work Phone: [facility] 10-13-2022 11:52-0500 Body height 149.86 cm DO Shauna Atkinson Work Phone: [facility] 10-13-2022 11:52-0500 Body temperature 98.7 [degF] DO Shauna Atkinson Work Phone: [facility] 10-13-2022 11:52-0500 Body weight 78 kg DO Shauna Atkinson Work Phone: [facility] 10-13-2022 11:52-0500 Diastolic blood pressure 66 mm[Hg] DO Shauna Atkinson Work Phone: [facility] 10-13-2022 11:52-0500 Heart rate 90 /min DO Shauna Atkinson Work Phone: [facility] 10-13-2022 11:52-0500 Respiratory rate 18 /min DO Shauna Atkinson Work Phone: [facility] 10-13-2022 11:52-0500 SaO2% (BldA) [Mass fraction] 96 % DO Shauna Atkinson Work Phone: [facility] 10-13-2022 11:52-0500 Systolic blood pressure 113 mm[Hg] DO Shauna Atkinson Work Phone: [facility] 10-12-2022 16:07-0500 Body height 152.4 cm DO Shauna Atkinson Work Phone: [facility] 10-12-2022 16:07-0500 Body temperature 99.1 [degF] DO Shauna Atkinson Work Phone: [facility] 10-12-2022 16:07-0500 Body weight 78 kg DO Shauna Atkinson Work Phone: [facility] 10-12-2022 16:07-0500 Diastolic blood pressure 67 mm[Hg] DO Shauna Atkinson Work Phone: [facility] 10-12-2022 16:07-0500 Heart rate 87 /min DO Shauna Atkinson Work Phone: [facility] 10-12-2022 16:07-0500 Respiratory rate 16 /min DO Shauna Atkinson Work Phone: [facility] 10-12-2022 16:07-0500 SaO2% (BldA) [Mass fraction] 95 % DO Shauna Atkinson Work Phone: [facility] 10-12-2022 16:07-0500 Systolic blood pressure 127 mm[Hg] DO Shauna Atkinson Work Phone: [facility] 04-10-2022 09:14-0400 Body height 149.86 cm No PCP None [facility] Work Phone: 04-10-2022 09:14-0400 Body mass index (BMI) [Ratio] 34.18 kg/m2 No PCP None [facility] Work Phone: 04-10-2022 09:14-0400 Body surface area Derived from formula 1.72 m2 No PCP None CW[facility]Zvpxpjz[facility]md [facility] Work Phone: 04-10-2022 09:14-0400 Body temperature 97.5 [degF] No PCP None EZ-Bwfqlpn[facility]Blzx n [facility] Work Phone: 04-10-2022 09:14-0400 Body weight 76.77 kg No PCP None GZ[facility]Tirjjdq[facility]Mwvhn [facility] Work Phone: 04-10-2022 09:14-0400 Diastolic blood pressure 83 mm[Hg] No PCP None JO[facility]Scobudk[facility]Ofbdh [facility] Work Phone: 04-10-2022 09:14-0400 Heart rate 99 /min No PCP None GH[facility]Vlluvbk[facility]Nuoty [facility] Work Phone: 04-10-2022 09:14-0400 SaO2% (BldA) [Mass fraction] 98 % No PCP None QS[facility]Wgbwkfs[facility]Qhoda [facility] Work Phone: 04-10-2022 09:14-0400 Systolic blood pressure 140 mm[Hg] No PCP None KO[facility]Xaveprn[facility]Nzqzf [facility] Work Phone: 03-27-2022 09:51-0400 Body height 149.86 cm No PCP None HI-Idgwzhq[facility]Kxkwq [facility] Work Phone: 03-27-2022 09:51-0400 Body mass index (BMI) [Ratio] 35.16 kg/m2 No PCP None JF[facility]Nvyjcgt[facility]Pskkf [facility] Work Phone: 03-27-2022 09:51-0400 Body surface area Derived from formula 1.74 m2 No PCP None ZH[facility]Smvssxm[facility]Nrwuj [facility] Work Phone: 03-27-2022 09:51-0400 Body temperature 97.7 [degF] No PCP None QI-Rakxwam-Hiis n [facility] Work Phone: 03-27-2022 09:51-0400 Body weight 78.95 kg No PCP None XL[facility]Tqowlqs[facility]Ajvuu [facility] Work Phone: 03-27-2022 09:51-0400 Diastolic blood pressure 83 mm[Hg] No PCP None EO[facility]Buhielv[facility]Lftrp [facility] Work Phone: 03-27-2022 09:51-0400 Heart rate 78 /min No PCP None EY[facility]Ydnbhez[facility]Paknw [facility] Work Phone: 03-27-2022 09:51-0400 SaO2% (BldA) [Mass fraction] 99 % No PCP None MC-Erxxeus-Mlqww [facility] Work Phone: 03-27-2022 09:51-0400 Systolic blood pressure 121 mm[Hg] No PCP None DD-Ytivbui-Wmhhf [facility] Work Phone: 02-18-2022 15:00-0400 Diastolic blood pressure 63 mm[Hg] Cheng Saldaña [facility] 02-18-2022 15:00-0400 Heart rate 79 /min Cheng Saldaña [facility] 02-18-2022 15:00-0400 Mean blood pressure 79 mm[Hg] Cheng Saldaña [facility] 02-18-2022 15:00-0400 SaO2% (BldA) [Mass fraction] 100 % Cheng Piotr [facility] 02-18-2022 15:00-0400 Systolic blood pressure 111 mm[Hg] Cheng Piotr [facility] 02-18-2022 14:00-0400 Diastolic blood pressure 52 mm[Hg] Cheng Piotr [facility] 02-18-2022 14:00-0400 Heart rate 94 /min Cheng Piotr [facility] 02-18-2022 14:00-0400 Mean blood pressure 71 mm[Hg] Chengeligio Saldaña [facility] 02-18-2022 14:00-0400 SaO2% (BldA) [Mass fraction] 94 % Cheng Piotr [facility] 02-18-2022 14:00-0400 Systolic blood pressure 108 mm[Hg] Cheng Piotr [facility] 02-18-2022 13:52-0400 Heart rate 85 /min Cheng Piotr [facility] 02-18-2022 13:52-0400 Respiratory rate 16 /min Cheng Saldaña [facility] 02-18-2022 13:52-0400 SaO2% (BldA) [Mass fraction] 98 % Cheng Piotr [facility] 02-18-2022 11:54-0400 Body temperature 98.24 [degF] Cheng Saldaña [facility] 02-18-2022 11:54-0400 Diastolic blood pressure 65 mm[Hg] Cheng Saldaña [facility] 02-18-2022 11:54-0400 Heart rate 102 /min Cheng Saldaña [facility] 02-18-2022 11:54-0400 Systolic blood pressure 118 mm[Hg] Cheng Saldaña [facility] Encounters Encounter Date Encounter Type Care Provider Facility Start: 06-20-2025 End: 06-20-2025 Bamboo flowsheet Jorge Milton DO Work Phone: [facility] Start: 06-20-2025 End: 06-20-2025 Bamboo flowsheet Jorge Milton DO Work Phone: [facility] Start: 06-20-2025 End: 06-20-2025 Office outpatient visit 15 minutes Jorge Milton DO Work Phone: [facility] Comment on above: Vaginal discharge; STD exposure; Second trimester ([facility] 17 weeks gestation of ([facility]); Screening, , for anatomic survey ([facility]) Start: 05-23-2025 End: 05-23-2025 Bamboo flowsheet Wandy STANFORD Work Phone: [facility] Start: 05-23-2025 End: 05-26-2025 Bamboo flowsheet Wandy STANFORD Work Phone: [facility] Start: 05-23-2025 End: 05-26-2025 Clinisync Result Encounter Wandy STANFORD Work Phone: [facility] Unsolicited Start: 05-23-2025 End: 05-24-2025 External Result Encounter Wandy STANFORD Work Phone: [facility] Unsolic[facility] Start: 05-23-2025 End: 05-23-2025 Patient encounter procedure Wandy STANFORD Work Phone: [facility] Start: 05-23-2025 End: 05-23-2025 flow sheet Wandy STANFORD Work Phone: [facility] Comment on above: Second trimester pre gnancy ([facility]); 13 weeks gestation of ([facility]); Well woman exam with routine gynecological exam; Vaginal discharge; STD exposure; Gastroesophageal reflux in ([facility]) Start: 05-23-2025 End: 05-23-2025 ambulatory WANDY KELLY Not Available Start: 04-24-2025 End: 04-24-2025 Clinisync Result Encounter Jorge Milton DO Work Phone: [facility]solicited Start: 04-24-2025 End: 04-24-2025 Clinisync Result Encounter Jorge Milton DO Work Phone: [facility] Unsolic[facility] Start: 04-24-2025 End: 04-24-2025 flow sheet Jorge Milton DO Work Phone: [facility] Comment on above: First trimester preg devora ([facility]); 9 weeks gestation of ([facility]) Start: 04-24-2025 End: 04-24-2025 ambulatory JORGE MILTON Not Available Start: 04-10-2025 End: 04-10-2025 ambulatory JORGE MILTON Not Available Start: 04-03-2025 End: 04-03-2025 Online digital e/m svc est pt <7 d 5-10 minutes Jorge Milton DO Work Phone: [facility] Comment on above: Medication care plan discussed with patient; Nausea and vomiting, unspecified vomiting type Start: 03-30-2025 End: 03-30-2025 ambulatory JORGE MILTON Not Available Start: 03-30-2025 End: 03-30-2025 Office outpatient visit 5 minutes [facility] Milton Nurse [facility] Comment on above: GA: 5w5d Start: 03-30-2025 End: 03-30-2025 ambulatory JORGE MILTON Not Available Start: 01-25-2024 [facility] Start: 01-20-2024 End: 01-21-2024 ambulatory TIBURCIO CRAWFORD [facility] Start: 01-19-2024 Orders Only Tiburcio Crawford DO Work Phone: [facility] Comment on above: Medication managemen t (Primary Dx) Start: 01-13-2024 End: 01-14-2024 ambulatory TIBURCIO CRAWFORD [facility] Comment on above: Pelvic pain; Dysmenorrhea Start: 01-13-2024 End: 01-13-2024 Encounter for gynecological examination (general) (routine) without abnormal findings TIBURCIO CRAWFORD [facility] Work Phone: Start: 01-13-2024 End: 01-13-2024 Patient encounter procedure Tiburcio Crawford DO Work Phone: [facility] Start: 01-13-2024 End: 01-13-2024 Periodic preventive med est patient 18-39 yrs Tiburcio Crawford DO Work Phone: [facility]ne[facility] Comment on above: Well woman exam with routine gynecological exam (Primary Dx); Cervical smear, as part of routine gynecological examination; Pelvic pain; Dysmenorrhea Start: 12-01-2023 End: 12-01-2023 ambulatory Kayley Mo Other [employer] Other Start: 12-01-2023 Office outpatient vi sit 25 minutes Kayley Mo [facility] Start: 11-03-2023 End: 11-03-2023 ambulatory Cheng Cruz Other [employer] Other Start: 11-03-2023 Office outpatient vi sit 15 minutes Cheng Cruz [facility] Start: 09-28-2023 End: 09-28-2023 ambulatory Cheng Cruz Other [employer] Other Start: 09-28-2023 Office outpatient ne w 30 minutes Cheng Cruz [facility] Start: 09-24-2023 End: 09-24-2023 Emergency department patient visit Alton Boss Facility:[facility] Start: 09-24-2023 End: 09-24-2023 Emergency department patient visit DO Shauna Atkinson Work Phone: [facility] Work Phone: Start: 02-23-2023 End: 02-23-[address] DOCTOR HAAS Facility:[facility] Start: 01-09-2023 End: 01-09-2023 Emergency department patient visit Joseph Wallace Facility:[facility] Start: 01-09-2023 End: 01-09-2023 Emergency department patient visit DO Shauna Atkinson Work Phone: [facility] Work Phone: Start: 01-09-2023 End: 01-09-[address] DOCTOR HAAS Facility:[facility] Start: 01-05-2023 End: 01-05-[address] ISRAEL MISC Facility:[facility] Start: 12-05-2022 End: 12-05-[address] ISRAEL MISC Facility:[facility] Start: 10-13-2022 End: 10-13-2022 Emergency department patient visit DO Shauna Atkinson Work Phone: [facility] Start: 10-12-2022 End: 10-12-2022 Emergency department patient visit DO Shauna Atkinson Work Phone: [facility] Start: 10-11-2022 End: 10-11-[address] GIOVANA GILMORE Facility:[facility] Start: 05-03-2022 Chart Update No PCP None [facility] Work Phone: Start: 04-29-2022 AUDIT No PCP None [facility] Work Phone: Start: 04-10-2022 FUV, Provider: Juan Taylor, Status: Abimael, Time: 9:00 AM No PCP None [facility] Work Phone: Start: 04-10-2022 Office outpatient vi sit 15 minutes No PCP None [facility] Work Phone: Start: 04-09-2022 Chart Update No PCP None [facility] Work Phone: Start: 03-27-2022 Office outpatient ne w 30 minutes No PCP None [facility] Work Phone: Start: 02-18-2022 End: 02-18-2022 Emergency department patient visit Cheng ArriazaHawk Saldaña [facility] Start: 09-30-2018 Emergency dept visit high severity&threat funcj JAGDISH ARGUELLO [facility] Start: 09-30-2018 End: 09-30-2018 Patient encounter procedure JAGDISH ARGUELLO Facility:[id number] Procedures Date Procedure Procedure Detail Performing Clinician Start: 06-20-2025 Urnls dip stick/tabl et rgnt non-auto w/o micrscp Jorge Milton DO Work Phone: Start: 05-23-2025 RECURRENT VAGINITIS (HTRX) Wandy STANFORD Work Phone: Start: 05-23-2025 Urnls dip stick/tabl et rgnt non-auto w/o micrscp Wandy STANFORD Work Phone: Start: 05-23-2025 IGP,APTIMA HPV,AGE GDLN Wandy STANFORD Work Phone: Start: 04-24-2025 BOX TEST Jorge Fazi o DO Work Phone: Start: 03-30-2025 Urnls dip stick/tabl et rgnt non-auto w/o micrscp Jorge Milton DO Work Phone: Start: 01-13-2024 Adult depression scr eening assessment [...] Td Vaccines (2 - Td or Tdap) [facility] Start: 01-12-2027 Screening for malign ant neoplasm of cervix Pap Smear [facility] Start: 07-18-2025 End: 07-18-2025 Patient encounter procedure 07/18/2025 10:00 AM EDT Routine NOMJeannine RAMIREZ [address] [place] [id number] Wandy Kelly PA [address] [address] [facility] Start: 07-18-2025 End: 07-18-2025 Professional / ancillary services management 07/18/2025 9:00 AM EDT Ancillary Procedure [facility] [address] [place] [phone] [facility] Start: 06-20-2025 End: 06-20-2026 Alpha fetoprotein, maternal Alpha fetoprotein, maternal Lab Routine Second trimester ([facility]) 17 weeks gestation of ([facility]) Expected: 06/20/2025 (Approximate), Expires: 06/20/2026 [facility] Comment on above: Expected: 06/20/2025 (Approximate), Expires: 06/20/2026 Start: 06-20-2025 End: 09-20-2025 US for US OB 14+ weeks anatomy scan Imaging Routine Screening, , for anatomic survey ([facility]) Expected: 06/20/2025, Expires: 09/20/2025 [facility] Comment on above: Expected: 06/20/2025 , Expires: 09/20/2025 Start: 06-20-2025 End: 06-20-2025 Patient encounter procedure [facility] Comment on above: Arrived Start: 05-23-2025 End: 05-23-2025 Patient encounter procedure [facility] Comment on above: Arrived Start: 04-24-2025 End: 04-24-2025 Patient encounter procedure 04/24/2025 9:10 AM EDT Routine [facility] [address] [place] [address] Jorge Rose, DO [address] [place] [address] [facility] Start: 04-10-2025 End: 04-10-2025 Professional / ancillary services management 04/10/2025 3:00 PM EDT Ancillary Procedure [facility] [address] [place] [address] [facility] Start: 04-03-2025 End: 04-03-2025 Patient encounter procedure 04/03/2025 8:00 AM EDT Office Visit [facility] [address] [place] [address] Jorge Rose, DO [address] [place] [address] [facility] Start: 03-30-2025 End: 03-30-2026 ABO/Rh ABO/Rh Lab Routine Missed menses , unspecified gestational age Expected: 03/30/2025 (Approximate), Expires: 03/30/2026 [facility] Comment on above: Expected: 03/30/2025 (Approximate), Expires: 03/30/2026 Start: 03-30-2025 End: 03-30-2026 Blood type and Indirect antibody screen panel - Blood Type and screen Lab Routine Missed menses , unspecified gestational age Expected: 03/30/2025 (Approximate), Expires: 03/30/2026 [facility] Comment on above: Expected: 03/30/2025 (Approximate), Expires: 03/30/2026 Start: 03-30-2025 End: 03-30-2026 Drugs of abuse panel - Urine by Screen method Rapid drug screen, urine Lab Routine , unspecified gestational age Encounter for supervision of normal first in first trimester Expected: 03/30/2025 (Approximate), Expires: 03/30/2026 [facility] Comment on above: Expected: 03/30/2025 (Approximate), Expires: 03/30/2026 Start: 03-30-2025 End: 06-30-2025 US Pelvis transvaginal [facility] Work Phone: Comment on above: Expected: 03/30/2025 , Expires: 06/30/2025 Start: 01-12-2025 Adult BMI Screening Adult BMI Screen ing [facility] Start: 01-12-2025 Depression Screening Depression Scre ening [facility] Start: 01-12-2025 Tobacco Screening Tobacco Screening [facility] Start: 01-20-2024 End: 01-20-2024 Patient encounter procedure 01/20/2024 8:00 AM EDT Appointment [facility] [address] [place] [phone] iTburcio Crawford DO [facility] [place] [address] [facility] Start: 01-20-2024 Subsequent hospital visit by physician 01/20/2024 8:00 AM EDT Hospital Encounter [facility] [address] [place] [address] Tiburcio Crawford DO [facility] [place] [address] [facility] Start: 01-13-2024 End: 01-12-2025 Cytopathology procedure, preparation of smear, genital source Pap Smear Pathology and Cytology Routine Cervical smear, as part of routine gynecological examination Expected: 01/13/2024 (Approximate), Expires: 01/12/2025 [facility] Work Phone: Comment on above: Expected: 01/13/2024 (Approximate), Expires: 01/12/2025 Start: 01-13-2024 End: 01-12-2025 US Pelvis transabdominal and transvaginal Ultrasound pelvic with transvaginal Imaging Routine Pelvic pain Expected: 01/13/2024, Expires: 01/12/2025 [facility] Comment on above: Expected: 01/13/2024 , Expires: 01/12/2025 Start: 12-10-2023 Adult BMI Follow Up Plan Adult BMI Follow Up Plan [facility] Start: 07-03-2023 COVID-19 Vaccine ( season) COVID-19 Vaccine () [facility] Start: 07-03-2023 Influenza vaccination Influenza Vacc ine [facility] Start: 10-12-2022 [facility] Start: 05-08-2022 POV, Provider: Juan Taylor, Status: Pen, Time: 10:00 AM POV, Provider: Juan Taylor, Status: Pen, Time: 10:00 AM [facility] Work Phone: Start: 04-10-2022 FUV, Provider: Juan Taylor, Status: Pen, Time: 9:00 AM [facility] Work Phone: Start: 2019 Screening for malign ant neoplasm of cervix Pap Smear [facility] Start: 1998 Tobacco Counseling Tobacco Counselin g [facility] Alanine aminotransfe rase [Enzymatic activity/volume] in Serum or Plasma by No addition of P-5'-P [facility] Work Phone: Albumin [Mass/volume ] in Serum or Plasma [facility] Work Phone: Albumin/Globulin ratio [facility] Work Phone: Alkaline phosphatase [Enzymatic activity/volume] in Serum or Plasma [facility] Work Phone: Anion gap measurement [facility] Work Phone: Aspartate aminotrans ferase [Enzymatic activity/volume] in Serum or Plasma [facility] Work Phone: Bacteria identified in Urine by Culture Urine culture Microbiology Routine Missed menses Ordered: 03/30/2025 [facility] Comment on above: Ordered: 03/30/2025 Basophils [#/volume] in Blood by Automated count [facility] Work Phone: Basophils/100 leukoc ytes in Blood by Automated count [facility] Work Phone: Bilirubin.total [Mass/volume] in Serum or Plasma [facility] Work Phone: Calcium [Mass/volume ] in Serum or Plasma [facility] Work Phone: Carbon dioxide, tota l [Moles/volume] in Serum or Plasma [facility] Work Phone: End: 01-18-2025 CBC W Auto Differential panel - Blood CBC auto differential Lab Routine Medication management 1 Occurrences starting 01/19/2024 until 01/18/2025 [facility] Work Phone: Comment on above: 1 Occurrences starti ng 01/19/2024 until 01/18/2025 CBC W Auto Different ial panel - Blood CBC and differential Lab Routine Missed menses , unspecified gestational age Ordered: 03/30/2025 [facility] Comment on above: Ordered: 03/30/2025 CHLAMYDIA TRACHOMATI S (GENITO/STI) CHLAMYDIA TRACHOMATIS (GENITO/STI) Lab Routine Vaginal discharge STD exposure Ordered: 05/23/2025 [facility] Work Phone: Comment on above: Ordered: 05/23/2025 CHLAMYDIA TRACHOMATI S (GENITO/STI) CHLAMYDIA TRACHOMATIS (GENITO/STI) Lab Routine STD exposure Ordered: 06/20/2025 [facility] Comment on above: Ordered: 06/20/2025 Chloride [Moles/volu me] in Serum or Plasma [facility] Work Phone: End: 01-18-2025 Comprehensive metabolic 2000 panel - Serum or Plasma Comprehensive metabolic panel Lab Routine Medication management 1 Occurrences starting 01/19/2024 until 01/18/[facility] Comment on above: 1 Occurrences starti ng 01/19/2024 until 01/18/2025 Creatinine and Glome rular filtration rate.predicted panel - Serum, Plasma or Blood [facility] Work Phone: Cytology Cervical or vaginal smear or scraping study Pap Smear Pathology and Cytology Routine Well woman exam with routine gynecological exam Ordered: 05/23/2025 [facility] Comment on above: Ordered: 05/23/2025 Eosinophils [#/volum e] in Blood [facility] Work Phone: Eosinophils/100 leuk ocytes in Blood by Automated count [facility] Work Phone: Erythrocyte distribu tion width [Ratio] by Automated count [facility] Work Phone: Erythrocytes [#/volu me] in Blood [facility] Work Phone: Globulin [Mass/volum e] in Serum [facility] Work Phone: Glucose [Mass/volume ] in Serum or Plasma [facility] Work Phone: Hematocrit [Volume Fraction] of Blood [facility] Work Phone: Hemoglobin [Mass/vol ume] in Blood [facility] Work Phone: Hemoglobin A1c/Hemoglobin.total in Blood Hemoglobin A1c Lab Routine Missed menses , unspecified gestational age Ordered: 03/30/2025 [facility] Comment on above: Ordered: 03/30/2025 Hepatitis B virus jorge rface Ag [Presence] in Serum or Plasma by Immunoassay Hepatitis B surface antigen Lab Routine Missed menses , unspecified gestational age Ordered: 03/30/2025 [facility] Comment on above: Ordered: 03/30/2025 Hepatitis C virus Ab [Presence] in Serum or Plasma by Immunoassay Hepatitis C antibody Lab Routine Missed menses , unspecified gestational age Ordered: 03/30/2025 [facility] Comment on above: Ordered: 03/30/2025 HIV-1/HIV-2 antigen/antibody combination immunoassay HIV-1 and HIV-2 antibodies Lab Routine Missed menses , unspecified gestational age Ordered: 03/30/2025 [facility] Comment on above: Ordered: 03/30/2025 Leukocytes [#/volume ] corrected for nucleated erythrocytes in Blood by Automated coun [facility] Work Phone: Leukocytes [#/volume ] in Blood [facility] Work Phone: Lymphocytes [#/volum e] in Blood by Automated count [facility] Work Phone: Lymphocytes/100 leuk ocytes in Blood by Automated count [facility] Work Phone: MCH [Entitic mass] b y Automated count [facility] Work Phone: MCHC [Mass/volume] b y Automated count [facility] Work Phone: MCV [Entitic volume] by Automated count [facility] Work Phone: Measurement of renal function [facility] Work Phone: Monocytes [#/volume] in Blood by Automated count [facility] Work Phone: Monocytes/100 leukoc ytes in Blood by Automated count [facility] Work Phone: Neisseria gonorrhoea e DNA [Presence] in Unspecified specimen by HUMBERTO with probe detection Neisseria gonorrhea DNA probe, direct Lab Routine Vaginal discharge STD exposure Ordered: 05/23/2025 [facility] Comment on above: Ordered: 05/23/2025 Neisseria gonorrhoea e DNA [Presence] in Unspecified specimen by HUMBERTO with probe detection Neisseria gonorrhea DNA probe, direct Lab Routine STD exposure Ordered: 06/20/2025 [facility] Comment on above: Ordered: 06/20/2025 Neutrophils [#/volum e] in Blood by Automated count [facility] Work Phone: Neutrophils/100 leuk ocytes in Blood by Automated count [facility] Work Phone: Nucleated erythrocyt es [Presence] in Blood by Automated count [facility] Work Phone: Patient Education [facility] Work Phone: Patient referral [facility] Work Phone: Platelet mean volume [Entitic volume] in Blood by Automated count [facility] Work Phone: Platelets [#/volume] in Blood [facility] Work Phone: Potassium [Moles/vol ume] in Serum or Plasma [facility] Work Phone: Protein [Mass/volume ] in Serum or Plasma [facility] Work Phone: Reagin Ab [Presence] in Serum by RPR RPR Lab Routine Missed menses , unspecified gestational age Ordered: 03/30/2025 [facility] Comment on above: Ordered: 03/30/2025 Rubella antibody, IgG Rubella an tibody, IgG Lab Routine Missed menses , unspecified gestational age Ordered: 03/30/2025 [facility] Comment on above: Ordered: 03/30/2025 Sodium [Moles/volume ] in Serum or Plasma [facility] Work Phone: SURESWAB(R) ADVANCED VAGINITIS PLUS, TMA SURESWAB(R) ADVANCED VAGINITIS PLUS, TMA Pathology and Cytology Routine Vaginal discharge STD exposure Ordered: 05/23/2025 [facility] Comment on above: Ordered: 05/23/2025 SURESWAB(R) ADVANCED VAGINITIS PLUS, TMA SURESWAB(R) ADVANCED VAGINITIS PLUS, TMA Pathology and Cytology Routine Vaginal discharge Ordered: 06/20/2025 [facility] [employer] Work Phone: Comment on above: Ordered: 06/20/2025 Urea nitrogen [Mass/volume] in Serum or Plasma [facility] Work Phone: Payers Date Payer Category Payer [employer] [id number] 2024 Unknown [id number] 2023 Self-pay [id number] 2022 Medicaid [id number] 1998 Unknown [id number] [id number]. 1046 1998 Unknown [id number] 2.16.840.1.724990.3.579.2. 593 1998 Unknown [id number] 2.16.840.1.207408.3.579.2. 593 1998 Unknown [id number] 2.16.840.1.145069.3.579.2. 593 1998 Unknown [id number] 2.16.840.1.379699.3.579.2. 593 1998 Unknown [id number] 2.16.840.1.283603.3.579.2. 593 1998 Unknown [id number] 2.16.840.1.124342.3.579.2. 1286 1998 Unknown [id number] 2.16.840.1.525192.3.579.2. 1286 1998 Unknown [id number] 2.16.840.1.402348.3.579.2. 1286 1998 Unknown [id number] 2.16.840.1.765600.3.579.2. 1259 1998 Unknown [id number] 2.16.840.1.537381.3.579.2. 1259 1998 Unknown [id number] 2.16.840.1.581177.3.579.2. 1259 1998 Unknown [id number] 2.16.840.1.554155.3.579.2. 1259 1998 Unknown [id number] 2.16.840.1.932342.3.579.2. 1259 1961 Medicaid [id number] 1961 Medicaid [id number] Medicaid [id number] Medicaid [id number] Unknown [employer] Unknown MMO [id number] Unknown [id number] [id number] Unknown [id number] 2.16.840.1.147467.3.579.2. 531 Unknown [id number] [id number]. 531 Social History Date Type Detail Facility Start: 02-18-2022 Tobacco smoking status Heavy tobacco smoker (finding) [facility] Start: 01-13-2024 End: 03-30-2025 Sex Assigned At Female [facility] Start: 10-12-2022 End: 09-24-2023 Tobacco smoking status NHIS Smoker (finding) [facility] Start: 2000 Sex Assigned At Female [facility] Start: 12-10-2022 Tobacco smoking status NCIS Smokes tobacco daily [facility] History of tobacco use Cigarette Smoker P [facility] Start: 12-10-2022 End: 03-30-2025 Cigarettes smoked current (pack per day) - Reported 0.3 [facility] Start: 12-10-2022 Tobacco use and exposure Smokeless tobacco non-user [facility] Start: 01-13-2024 Alcohol intake Ex-drinker (finding) [facility] Adolescent depressio n screening assessment 5 [facility] Start: 12-10-2022 Alcohol Comment social [facility] Start: 12-23-2022 Gender identity Identifies as female gender (finding) [facility] Start: 12-23-2022 Sexual orientation Heterosexual (finding) [facility] Start: 03-30-2025 Tobacco smoking status NHIS Ex-smoker [facility] Start: 03-04-2025 [facility] Start: 1998 Sex assigned at Not on file [facility] Clinical Notes 11-03-2021 to 06-20-2025 Chelsea Mejia, [facility] - 06/20/2025 10:50 AM Niall Kelly [place] - 05/23/2025 9:30 AM EDTSusan Spitler, [facility] - 04/24/2025 9:10 AM EDTSusan Spitler, [facility] - 04/03/2025 8:00 AM EDT Note Date & Type Note Facility 06-20-2025 History of Presen t illness Narrative Reason for Appointment: Patient ID: Sofia Andrews is a 24 y.o. female who presents for Routine Visit and STI Screening Patient presents today for STD Check. and Return OB appointment. MEDICATIONS Current Outpatient Medications Medication Instructions metoclopramide (REGLAN) 10 mg, Oral, 3 times daily omeprazole (PRILOSEC) 20 mg, Oral, Daily before breakfast, Do not crush or chew. pregabalin (LYRICA) 200 mg, Oral, Daily Vit-Fe Fumarate-FA ( Vitamins) 28-0.8 MG tablet 1 tablet, Oral, Daily promethazine (PHENERGAN) 12.5 mg, Oral, Every 6 hours PRN, Take 1 tablet by mouth every 6 hours as needed for nausea. ALLERGIES Allergies Allergen Reactions Ketorolac Anaphylaxis Penicillins Anaphylaxis Other Reaction(s): Unknown Tramadol Anaphylaxis Pollen Extract Toradol [Ketorolac Tromethamine] Wound Dressing Adhesive Other Reaction(s): Other (See Comments) Redness from EKG patches if left on too long PROBLEMS Active Ambulatory Problems Diagnosis Date Noted No Active Ambulatory Problems Resolved Ambulatory Problems Diagnosis Date Noted No Resolved Ambulatory Problems No Additional Past Medical History HISTORY PAST MEDICAL HISTORY SOCIAL HISTORY History reviewed. No pertinent past medical history. Social History Tobacco Use Smoking status: Former Types: Cigarettes Smokeless tobacco: Not on file Substance Use Topics Alcohol use: Not on file Drug use: Not on file FAMILY HISTORY Family History Problem Relation Name Age of Onset Breast cancer Mother STAGE 4 METS Other (HIGH BLOOD PRESSURE) Mother Diabetes Mother Hyperlipidemia Mother Schizophrenia Mother Depression Mother Anxiety disorder Mother Bipolar disorder Mother Alcohol abuse Father Schizophrenia Mother's Brother Suicide Attempts Mother's Brother Suicide Attempts Maternal Grandmother Schizophrenia Maternal Grandmother Pancreatic cancer Maternal Grandfather SURGICAL HISTORY Past Surgical History: Procedure Laterality Date CYST REMOVAL CHEST TONSILLECTOMY TUBAL LIGATION 1/2 TUBE REMOVED WISDOM TOOTH EXTRACTION REVIEW OF SYSTEMS Review of Systems: Review of Systems Constitutional: Negative. HENT: Negative. Eyes: Negative. Respiratory: Negative. Cardiovascular: Negative. Gastrointestinal: Negative. Genitourinary: Negative. Musculoskeletal: Negative. Skin: Negative. Neurological: Negative. All other systems reviewed and are negative. Hematological: Negative. Endocrine: Negative. Allergic/Immunologic: Negative. OBJECTIVE Objective: Physical Exam Constitutional: Appearance: Normal appearance. She is well-developed. Genitourinary: Vulva normal. Cardiovascular: Rate and Rhythm: Normal rate and regular rhythm. Pulmonary: Effort: Pulmonary effort is normal. Breath sounds: Normal breath sounds. Abdominal: General: Bowel sounds are normal. There is no distension. Palpations: Abdomen is soft. Tenderness: There is no abdominal tenderness. There is no guarding or rebound. Musculoskeletal: General: No swelling. Normal range of motion. Right lower leg: No edema. Left lower leg: No edema. Neurological: Mental Status: She is alert and oriented to person, place, and time. Skin: General: Skin is warm and dry. Psychiatric: Mood and Affect: Mood normal. Behavior: Behavior normal. Vitals and nursing note reviewed. Exam conducted with a boat joiner helper present. Vitals: Estimated body mass index is 34.16 kg/m as calculated from the following: Height as of 01/03/22: 4' 11.5 . Weight as of this encounter: 172 lb. BP: 110/74 Patient's last menstrual period was 02/11/2025. ASSESSMENT & PLAN ICD-10-CM 1. Vaginal discharge N89.8 SURESWAB(R) ADVANCED VAGINITIS PLUS, TMA 2. STD exposure Z20.2 CHLAMYDIA TRACHOMATIS (GENITO/STI) Neisseria gonorrhea DNA probe, direct 3. Second trimester ([facility]) Z34.92 POCT urinalysis dipstick manually resulted Alpha fetoprotein, maternal Alpha fetoprotein, maternal 4. 17 weeks gestation of ([facility]) Z3A.17 POCT urinalysis dipstick manually resulted Alpha fetoprotein, maternal Alpha fetoprotein, maternal 5. Screening, , for anatomic survey ([facility]) Z36.89 US OB 14+ weeks anatomy scan Patient presents today for a routine obstetrics appointment. Patient is currently 17w3d with a Estimated Date of Delivery: 11/25/25.CIRILO obtained. Pt given msafp and anatomy scan orders. Pt to return in 4 weeks. Documented by Chelsea Mejia LPN on behalf of: Wandy Braxton PA-C documented in this encounter [facility] 05-23-2025 History of Presen t illness Narrative Reason for Appointment: Patient ID: Sofia Andrews is a 24 y.o. female who presents for Routine Visit Patient presents today for Return OB appointment. MEDICATIONS Current Outpatient Medications Medication Instructions metoclopramide (REGLAN) 10 mg, Oral, 3 times daily omeprazole (PRILOSEC) 20 mg, Oral, Daily before breakfast, Do not crush or chew. pregabalin (LYRICA) 200 mg, Oral, Daily Vit-Fe Fumarate-FA ( Vitamins) 28-0.8 MG tablet 1 tablet, Oral, Daily promethazine (PHENERGAN) 12.5 mg, Oral, Every 6 hours PRN, Take 1 tablet by mouth every 6 hours as needed for nausea. ALLERGIES Allergies Allergen Reactions Penicillins Toradol [Ketorolac Tromethamine] Tramadol PROBLEMS Active Ambulatory Problems Diagnosis Date Noted No Active Ambulatory Problems Resolved Ambulatory Problems Diagnosis Date Noted No Resolved Ambulatory Problems No Additional Past Medical History HISTORY PAST MEDICAL HISTORY SOCIAL HISTORY No past medical history on file. Social History Tobacco Use Smoking status: Former Types: Cigarettes Smokeless tobacco: Not on file Substance Use Topics Alcohol use: Not on file Drug use: Not on file FAMILY HISTORY Family History Problem Relation Name Age of Onset Breast cancer Mother STAGE 4 METS Other (HIGH BLOOD PRESSURE) Mother Diabetes Mother Hyperlipidemia Mother Schizophrenia Mother Depression Mother Anxiety disorder Mother Bipolar disorder Mother Alcohol abuse Father Schizophrenia Mother's Brother Suicide Attempts Mother's Brother Suicide Attempts Maternal Grandmother Schizophrenia Maternal Grandmother Pancreatic cancer Maternal Grandfather SURGICAL HISTORY Past Surgical History: Procedure Laterality Date CYST REMOVAL CHEST TONSILLECTOMY TUBAL LIGATION 1/2 TUBE REMOVED WISDOM TOOTH EXTRACTION REVIEW OF SYSTEMS Review of Systems: Review of Systems Constitutional: Negative. HENT: Negative. Eyes: Negative. Respiratory: Negative. Cardiovascular: Negative. Gastrointestinal: Negative. Genitourinary: Negative. Musculoskeletal: Negative. Skin: Negative. Neurological: Negative. All other systems reviewed and are negative. Hematological: Negative. Endocrine: Negative. Allergic/Immunologic: Negative. OBJECTIVE Objective: Physical Exam Constitutional: Appearance: Normal appearance. She is normal weight. HENT: Head: Normocephalic. Cardiovascular: Rate and Rhythm: Normal rate. Pulses: Normal pulses. Pulmonary: Effort: Pulmonary effort is normal. Breath sounds: Normal breath sounds. Abdominal: Palpations: Abdomen is soft. Musculoskeletal: General: Normal range of motion. Neurological: General: No focal deficit present. Mental Status: She is alert and oriented to person, place, and time. Psychiatric: Mood and Affect: Mood normal. Behavior: Behavior normal. Thought Content: Thought content normal. Judgment: Judgment normal. Vitals and nursing note reviewed. Vitals: Estimated body mass index is 32.52 kg/m as calculated from the following: Height as of 01/03/22: 4' 11.5 . Weight as of this encounter: 163 lb 12 oz. BP: 112/80 Patient's last menstrual period was 02/11/2025. ASSESSMENT & PLAN ICD-10-CM 1. Second trimester ([facility]) Z34.92 POCT urinalysis dipstick manually resulted CANCELED: POCT urinalysis dipstick manually resulted 2. 13 weeks gestation of ([facility]) Z3A.13 3. Well woman exam with routine gynecological exam Z01.419 Pap Smear CANCELED: Pap Smear 4. Vaginal discharge N89.8 CHLAMYDIA TRACHOMATIS (GENITO/STI) Neisseria gonorrhea DNA probe, direct SURESWAB(R) ADVANCED VAGINITIS PLUS, TMA CANCELED: SURESWAB(R) ADVANCED VAGINITIS PLUS, TMA CANCELED: CHLAMYDIA TRACHOMATIS (GENITO/STI) CANCELED: Neisseria gonorrhea DNA probe, direct 5. STD exposure Z20.2 CHLAMYDIA TRACHOMATIS (GENITO/STI) Neisseria gonorrhea DNA probe, direct SURESWAB(R) ADVANCED VAGINITIS PLUS, TMA CANCELED: SURESWAB(R) ADVANCED VAGINITIS PLUS, TMA CANCELED: CHLAMYDIA TRACHOMATIS (GENITO/STI) CANCELED: Neisseria gonorrhea DNA probe, direct 6. Gastroesophageal reflux in ([facility]) O99.619 omeprazole (PriLOSEC) [address] capsule K21.9 promethazine (Phenergan) 12.5 MG tablet Return OB: Patient presents today for a routine obstetrics appointment. Patient is currently 13w3d . Patient states she is doing well but has complaints of being tired due to current . Orders Placed This Encounter Procedures CHLAMYDIA TRACHOMATIS (GENITO/STI) Neisseria gonorrhea DNA probe, direct POCT urinalysis dipstick manually resulted Follow Up: Patient is to return to office in 4 week for routine OB appointment. Documented by HIEN Sands on behalf of: HIEN Sands documented in this encounter [facility] 04-24-2025 History of Presen t illness Narrative Reason for Appointment: Patient ID: Sofia Andrews is a 24 y.o. female who presents for Routine Visit Patient presents today for Return OB appointment. MEDICATIONS Current Outpatient Medications Medication Instructions metoclopramide (REGLAN) 10 mg, Oral, 3 times daily ondansetron ODT (ZOFRAN-ODT) 4 mg, Oral, Every 6 hours PRN pregabalin (LYRICA) 200 mg, Oral, Daily Vit-Fe Fumarate-FA ( Vitamins) 28-0.8 MG tablet 1 tablet, Oral, Daily ALLERGIES Allergies Allergen Reactions Penicillins Toradol [Ketorolac Tromethamine] Tramadol PROBLEMS Active Ambulatory Problems Diagnosis Date Noted No Active Ambulatory Problems Resolved Ambulatory Problems Diagnosis Date Noted No Resolved Ambulatory Problems No Additional Past Medical History HISTORY PAST MEDICAL HISTORY SOCIAL HISTORY No past medical history on file. Social History Tobacco Use Smoking status: Former Types: Cigarettes Smokeless tobacco: Not on file Substance Use Topics Alcohol use: Not on file Drug use: Not on file FAMILY HISTORY Family History Problem Relation Name Age of Onset Breast cancer Mother STAGE 4 METS Other (HIGH BLOOD PRESSURE) Mother Diabetes Mother Hyperlipidemia Mother Schizophrenia Mother Depression Mother Anxiety disorder Mother Bipolar disorder Mother Alcohol abuse Father Schizophrenia Mother's Brother Suicide Attempts Mother's Brother Suicide Attempts Maternal Grandmother Schizophrenia Maternal Grandmother Pancreatic cancer Maternal Grandfather SURGICAL HISTORY Past Surgical History: Procedure Laterality Date CYST REMOVAL CHEST TONSILLECTOMY TUBAL LIGATION 1/2 TUBE REMOVED WISDOM TOOTH EXTRACTION REVIEW OF SYSTEMS Review of Systems: Review of Systems Constitutional: Negative. HENT: Negative. Eyes: Negative. Respiratory: Negative. Cardiovascular: Negative. Gastrointestinal: Negative. Genitourinary: Negative. Musculoskeletal: Negative. Skin: Negative. Neurological: Negative. All other systems reviewed and are negative. Hematological: Negative. Endocrine: Negative. Allergic/Immunologic: Negative. OBJECTIVE Objective: Physical Exam Constitutional: Appearance: Normal appearance. She is well-developed. Cardiovascular: Rate and Rhythm: Normal rate and regular rhythm. Pulmonary: Effort: Pulmonary effort is normal. Breath sounds: Normal breath sounds. Abdominal: General: Bowel sounds are normal. There is no distension. Palpations: Abdomen is soft. Tenderness: There is no abdominal tenderness. There is no guarding or rebound. Musculoskeletal: General: No swelling. Normal range of motion. Right lower leg: No edema. Left lower leg: No edema. Neurological: Mental Status: She is alert and oriented to person, place, and time. Skin: General: Skin is warm and dry. Psychiatric: Mood and Affect: Mood normal. Behavior: Behavior normal. Vitals and nursing note reviewed. Exam conducted with a boat joiner helper present. Vitals: Estimated body mass index is 31.48 kg/m as calculated from the following: Height as of 01/03/22: 4' 11.5 . Weight as of this encounter: 158 lb 8 oz. BP: 108/78 Patient's last menstrual period was 02/11/2025. ASSESSMENT & PLAN ICD-10-CM 1. First trimester ([facility]) Z34.91 2. 9 weeks gestation of ([facility]) Z3A.09 New OB: Patient presents today for 1st time obstetrics appointment with provider. Patient is currently 9w2d . Patients history has been reviewed in great detail including any potential risks. Patient stated she currently has no complaints. Expectations throughout regarding labs, ultrasounds, and appointments have been discussed with the patient in detail. It was reiterated that the patient is to drink 6-8 glasses of water a day, eat 6 small meals a day, do not consume raw or undercooked meat, and stay away from [facility]. Patient has been consulted regarding any further do's and don'ts of . Patient voiced understanding and all questions and concerns were answered. Patient had labs drawn today prior to visit. Patient unable to void at this time prior to appointment. Bedside scan showed movement and heartbeat. Patient voiced she had a previous open laparotomy with left salpingectomy and discussed primary on 11/17/2025 due to not wanting to labor with history of open lap & patient will be added to the books. Discussed primary with patient and details with delivery. Follow Up: Patient is to return in 4 weeks for routine OB appointment. Documented by Ciarra Farfan LPN on behalf of: Jorge Rose DO documented in this encounter [facility] 04-03-2025 History of Presen t illness Narrative Reason for Appointment: Patient ID: Sofia Andrews is a 24 y.o. female who presents for No chief complaint on file. Patient presents today via telephone call for a telehealth appointment. Patients Phone #: [phone] (mobile) Date: 04/03/2025 Time: 10:53 AM of the visit Platform Used: Audio call performed via in house telephone system. Location of Patient and Provider: Patient at home, provider at clinic Consent for Telehealth: Patient provided verbal consent to conduct the visit virtually via audio only phone call Current Medications: has a current medication list which includes the following prescription(s): ondansetron odt, pregabalin, and vitamins. Medical History: Active Ambulatory Problems Diagnosis Date Noted No Active Ambulatory Problems Resolved Ambulatory Problems Diagnosis Date Noted No Resolved Ambulatory Problems No Additional Past Medical History Family History Problem Relation Name Age of Onset Breast cancer Mother STAGE 4 METS Other (HIGH BLOOD PRESSURE) Mother Diabetes Mother Hyperlipidemia Mother Schizophrenia Mother Depression Mother Anxiety disorder Mother Bipolar disorder Mother Alcohol abuse Father Schizophrenia Mother's Brother Suicide Attempts Mother's Brother Suicide Attempts Maternal Grandmother Schizophrenia Maternal Grandmother Pancreatic cancer Maternal Grandfather Social History Tobacco Use Smoking status: Former Types: Cigarettes Smokeless tobacco: Not on file Substance Use Topics Alcohol use: Not on file Drug use: Not on file Past Surgical History: Procedure Laterality Date CYST REMOVAL CHEST TONSILLECTOMY TUBAL LIGATION 1/2 TUBE REMOVED WISDOM TOOTH EXTRACTION Allergies Allergen Reactions Penicillins Toradol [Ketorolac Tromethamine] Tramadol Vitals: Estimated body mass index is 30.54 kg/m as calculated from the following: Height as of 01/03/22: 4' 11.5 . Weight as of 03/30/25: 153 lb 12.8 oz. BP: Patient's last menstrual period was 02/11/2025. Assessment/Plan Encounter Diagnosis Name Primary? Medication care plan discussed with patient Dr. Rose called patient and discussed ultrasound results and reasoning for repeat scan. Provider discussed Lyrica for nerve damage/pain control. Patient voiced that when she does not take medication she is in debilitating pain. Discussed benefits verses risks. Discussed possibility of seeing [facility] to discuss management and level II ultrasound. Patient voiced that she spoke with PCP and PCP wants patient to discontinue medication. PCP is tapering patient off of medication currently. Advised patient that it would be recommended that MFM referral will be done now at this time to discuss medication management. Patient verbalized understanding and will continue with plan of care. Patient would also like to have other nausea medication options. Patient advised that Reglan will be sent to pharmacy to help with symptoms. Today's telehealth visit consisted of spending 9 minutes talking to patient on the phone. Documented by Ciarra Farfan LPN on behalf of: Jorge Rose DO documented in this encounter [facility] 03-30-2025 History of Presen t illness Narrative Reason for Appointment: Patient ID: Sofia Andrews is a 24 y.o. female who presents for No chief complaint on file. Patient presents today for a Nurse OB Intake appointment. Patient is 5w5d with a Estimated Date of Delivery: 11/25/25 OB History Para Term AB Living 3 2 SAB IAB Ectopic Multiple Live Births 2 # Outcome Date GA Lbr Cooper/2nd Weight Sex Type Anes PTL Lv 3 Current 2 2023 1 2022 Current Medications: has a current medication list which includes the following prescription(s): ondansetron odt, pregabalin, and vitamins. Medical History: Active Ambulatory Problems Diagnosis Date Noted No Active Ambulatory Problems Resolved Ambulatory Problems Diagnosis Date Noted No Resolved Ambulatory Problems No Additional Past Medical History Family History Problem Relation Name Age of Onset Breast cancer Mother STAGE 4 METS Other (HIGH BLOOD PRESSURE) Mother Diabetes Mother Hyperlipidemia Mother Schizophrenia Mother Depression Mother Anxiety disorder Mother Bipolar disorder Mother Alcohol abuse Father Schizophrenia Mother's Brother Suicide Attempts Mother's Brother Suicide Attempts Maternal Grandmother Schizophrenia Maternal Grandmother Pancreatic cancer Maternal Grandfather Social History Tobacco Use Smoking status: Former Types: Cigarettes Smokeless tobacco: Not on file Substance Use Topics Alcohol use: Not on file Drug use: Not on file Past Surgical History: Procedure Laterality Date CYST REMOVAL CHEST TONSILLECTOMY TUBAL LIGATION 1/2 TUBE REMOVED WISDOM TOOTH EXTRACTION No Known Allergies Vitals: Estimated body mass index is 30.54 kg/m as calculated from the following: Height as of 01/03/22: 4' 11.5 . Weight as of this encounter: 153 lb 12.8 oz. BP: 120/76 Patient's last menstrual period was 02/11/2025. Assessment/Plan Diagnoses and all orders for this visit: Missed menses - US OB transvaginal; Future - Type and screen; Future - ABO/Rh; Future - CBC and differential - Hemoglobin A1c - RPR - Rubella antibody, IgG - Hepatitis B surface antigen - Hepatitis C antibody - HIV-1 and HIV-2 antibodies - Urine culture - POCT , urine manually resulted - POCT urinalysis dipstick manually resulted - Vit-Fe Fumarate-FA ( Vitamins) 28-0.8 MG tablet; Take 1 tablet by mouth Daily , unspecified gestational age - Type and screen; Future - ABO/Rh; Future - CBC and differential - Hemoglobin A1c - RPR - Rubella antibody, IgG - Hepatitis B surface antigen - Hepatitis C antibody - HIV-1 and HIV-2 antibodies - Rapid drug screen, urine; Future - Vit-Fe Fumarate-FA ( Vitamins) 28-0.8 MG tablet; Take 1 tablet by mouth Daily Encounter for supervision of normal first in first trimester - Rapid drug screen, urine; Future - Vit-Fe Fumarate-FA ( Vitamins) 28-0.8 MG tablet; Take 1 tablet by mouth Daily Nausea - ondansetron ODT (Zofran-ODT) 4 MG disintegrating tablet; Take 1 tablet (4 mg) by mouth every 6 (six) hours if needed for nausea or vomiting - Vit-Fe Fumarate-FA ( Vitamins) 28-0.8 MG tablet; Take 1 tablet by mouth Daily Nurse Note: OB Intake: Patient presents today for first OB visit. Patients history has been reviewed in great detail including any potential risks. Patient signed consent forms and patient desires testing in both trimesters. Patient currently has no complaints and has been advised to drink 6-8 glasses of water a day, eat no raw or undercooked meat, and stay away from [facility]. Patient has also been advised to not change litter boxes and eat 6 small meals a day. Patient has been consulted regarding the do's and don'ts of . Patient was given labs and all questions and concerns were answered. Willis given for patient to have obtained at 9 weeks with initial labs. Zofran and vitamins sent to pharmacy for patient. Patient to schedule a Telehealth visit in 1 week to discuss Lyrica usage and will call ordering provider to be able to discuss with . Follow Up: Patient is to return in 4 weeks for routine OB appointment. Follow Up: Patient is to have labs drawn at directed and return to office for initial OB appointment with provider. Patient may call office as needed with any concerns or questions. Nurse Visit Completed by: Shahida Sheikh LPN documented in this encounter [facility] 01-25-2024 Miscellaneous Notes Patient called to inquire if we had the results from her ultrasound. She is advised that the ultrasound was normal. She is advised to call if further needs. KYA Reyes documented in this encounter [facility] 01-25-2024 Telephone encounter Note Patient called to inquire if we had the results from her ultrasound. She is advised that the ultrasound was normal. She is advised to call if further needs. KYA Reyes [facility] 01-19-2024 History of Presen t illness Narrative CBC and CMP ordered per insurance request to refill her ibuprofen documented in this encounter [facility] 01-13-2024 Miscellaneous Notes Patient will need a CBC and a CMP to check her blood counts and her liver/kidney function unknown need to continue the ibuprofen. documented in this encounter [facility] 01-13-2024 Telephone encounter Note Patient will need a CBC and a CMP to check her blood counts and her liver/kidney function unknown need to continue the ibuprofen. [facility] 01-13-2024 History of Presen t [...] like to pursue. 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06-24-2022 NotePost Operative Note: PreOp Diagnosis: Chronic infection sebaceous cyst right chest Post-Procedure Diagnosis: Same Procedure: 1. Excision right chest cyst 5x2 cm 2. Complex closure 5cm 3. 4. 5. Surgeon: Claudia Resident/Fellow/Other Routing Equipment Tender: Geraldine Anesthesia: General, 0.5% marciane Estimated Blood Loss (mL): 3cc Specimen: yes. right skin cyst Findings: sebaceous cyst removed without visible pus Patient Returned To/Condition: To in sat cond Attestation: Note Completion: Attending AttestationI was present for the entire procedure Electronic Signatures: Juan Taylor) (Signed 25-Apr-2022 10:40) Authored: Post Operative Note, Note Completion Last Updated: 25-Apr-2022 10:40 by Juan Taylor)[facility] 04-25-2022 NoteHistory & Physical Reviewed: /Lactating: [...] the note. I personally evaluated the patient [id number] Electronic Signatures: Sascha Chandler (Resident)) (Signed 25-Apr-2022 08:43) Authored: History & Physical Reviewed, ERAS, Consent, Note Completion Juan Taylor) (Signed 05-May-2022 13:45) Authored: Note Completion Co-Signer: History & Physical Reviewed, ERAS, Consent, Note Completion Last Updated: 05-May-2022 13:45 by Juan Taylor) References: 1. Data Referenced From Patient Profile - Preop v3 25-Apr-2022 08:07[facility]04-19-2022 Hospital Discharge instructions Patient Education 02/18/2022 14:56:49 Epidermal Cyst, Jqux-jy-Ijxi Epidermal Cyst An epidermal cyst is a [...] yourself. Follow these instructions at home: Take adiz-pah-homngzi and prescription medicines only as told by [...] the cyst, or to remove it. Take laee-vkx-anzwbxn and prescription medicines only as told by [...] 11/26/2005 Document Revised: 02/09/2020 Document Reviewed: 07/28/2019 [employer] Patient Education 2019 [employer]. Follow Up Care 02/18/2022 11:50:54 With:Sara MCGRATH, Portillo Address: When:02/21/2022 [facility]04-19-2022 Evaluation + Plan noteExtracted from: Title:ED Note Author:Myrtle TOVAR, Fabi Summers ate:02/18/22 1. Epidermoid cyst of skin o [...] With Cult Reflex XR Chest 2 Views [facility]01-02-2022 History of Present illness Narrative* Sofia Wiggins is a 21 year old female [place] [facility] [place] with a chronic right chest skin abscess that she would like excised. She has been receiving care at [facility]. 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 Diagnosed at age 50. * Maternal grandfather with lung and liver cancer [facility] Work Phone: [phone] [phone] History of Present illness Narrative* Sofia Wiggins is a 21 year old female presenting [place] [facility] [place] with a chronic right chest skin abscess that she would like excised. She has been receiving care at [facility]. 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 Diagnosed at age 50. * Maternal grandfather with lung and liver cancer [facility] Work Phone: Evaluation noteNo assessment information available [facility] Work Phone: Evaluation note* Diagnosis Well woman exam with routine gynecological exam- Primary Routine gynecological examination Cervical smear, as part of routine gynecological examination Screening for malignant neoplasm of the cervix Pelvic pain Dysmenorrhea [facility] Diagnosis Pelvic pain Dysmenorrhea [facility] Diagnosis Medication management- Primary [facility] Diagnosis Missed menses , unspecified gestational age Encounter for supervision of normal first in first trimester Nausea Nausea alone [facility] Diagnosis Medication care plan discussed with patient Nausea and vomiting, unspecified vomiting type [facility]* Diagnosis First trimester ([facility]) state, incidental 9 weeks gestation of ([facility]) [facility]* Diagnosis Second trimester ([facility]) state, incidental 13 weeks gestation of ([facility]) Well woman exam with routine gynecological exam Routine gynecological examination Vaginal discharge Leukorrhea, not specified as infective STD exposure Gastroesophageal reflux in ([facility]) [facility] Diagnosis Vaginal discharge Leukorrhea, not specified as infective STD exposure Second trimester ([facility]) state, incidental 17 weeks gestation of ([facility]-HCC) Screening, , for anatomic survey ([facility]) Encounter for anatomic survey documented in this encounter [facility] Narrative - Reported* Type Description Date Medical History None Surgical History Tonsils Surgical History [place] [facility] Other History general Narrative - Reported* Type Description Date Medical History None Surgical History Tonsils Surgical History [place] [facility] Surgical History C section Hospitalization History See Above [facility] Other Hospital course Narrative No data available for this section [facility] Additional Instructions Take swxr-hxj-abjjwjh cough and cold medication as needed for symptoms May take the Zofran every 8 hours as needed Use your albuterol inhaler every 4 hours as needed for wheezing cough shortness of breath Increase oral fluids Follow-up with family doctor as needed Return to the ER for significant respiratory distress chest pain vomiting or any other [facility] Work Phone: Hospital Discharge instructions Additional Instructions If your symptoms return/worsen or you develop any further concerns or symptoms please see your doctor or return to the emergency department immediately.[facility] Work Phone: Hospital Discharge instructions Additional Instructions Continue your Tylenol and ibuprofen at home Follow-up with your orthopedic physician [facility]: InstructionsNot on filedocumented in this [...] FoundNo Family History Records Found Advance Directives Advance Directive Response Recorded Date/ Time Advance [...] section and content) DATE CREATED AUTHOR 10/11/2018 [facility] DATE CREATED AUTHOR AUTHOR'S ORGANIZ ATION 02/19/2022 [facility] DATE CREATED AUTHOR AUTHOR'S ORGANIZ ATION 05/05/2022 [facility] DATE CREATED AUTHOR AUTHOR'S ORGANIZ ATION 05/12/2022 [facility] DATE CREATED AUTHOR AUTHOR'S ORGANIZ ATION 02/25/2023 [facility] DATE CREATED AUTHOR AUTHOR'S ORGANIZ ATION 12/03/2023 [facility] DATE CREATED AUTHOR AUTHOR'S ORGANIZ ATION 12/11/2023 [facility] DATE CREATED AUTHOR AUTHOR'S ORGANIZ ATION 01/14/2024 [facility] DATE CREATED AUTHOR AUTHOR'S ORGANIZ ATION [facility] DATE CREATED AUTHOR AUTHOR'S ORGANIZ ATION 05/24/2025 [facility] EPIC Care Teams (unrecognized sec tion and content) Team Status: Inactive Member Role Status Dates Shanua Atkinson , Primary Care Provider Active Martinez Kumar , DO Emergency Provider Active Team Status: Active Member Role Status Dates Shauna Atkinson DO Primary Care Provider Active Team Status: Inactive Member Role Status Dates Shauna Atkinson , Primary Care Provider Active Payton Hernández , [facility] Emergency Provider Active Team Status: Inactive Member Role Status Dates Shauna Atkinson DO Primary Care Provider Active Joseph Wallace , Emergency Provider Active Team Status: Inactive Member Role Status Dates Shauna Atkinson , Primary Care Provider Active Alton Boss MD Emergency Provider Active Operating Manager Relationship Specialty Start Date End Date Shauna Atkinson DO [address] [place] [address] PCP - General Family Medicine 12/15/22 Operating Manager Relationship Specialty Start Date End Date Shauna Atkinson DO [address] [place] [address] PCP - General Family Medicine 12/15/22 Operating Manager Relationship Specialty Start Date End Date Shauna Atkinson DO [address] [place] [address] PCP - General Family Medicine 12/15/22 Operating Manager Relationship Specialty Start Date End Date Shauna Atkinson DO [address] [place] [address] PCP - General Family Medicine 12/15/22 Goals (unrecognized section and content) Goals may be documented in a n alternate section REASON FOR VISIT (unrecogniz ed section and content) Reason Comments Annual Exam Pt is here for annua l exam. Last pap was several years at [facility]. Pt is due for pap. Gynecologic Exam Pelvic Pain Pt c/o pelvic pain w ith periods and without. Periods have been heavy. Reason Onset Date Comments Med Refill 01/13/2024 Reason Comments Routine Visit Reason Comments Routine Visit STI Screening FOR RECORDS PERTAINING TO PATIENTS WHO ARE [...] BE BASED ON THE PRIMARY CLINICAL RECORDS. [employer] provides no warranty or guarantee of the accuracy or completeness of information in this document.
== END 2025-06-20 11:44 | disposition home or self-care (01) ==
PROVIDERS: PCP Nurse Practitioner Family; Visit Provider Obstetrics & Gynecology
DX: Z34.92 Encounter for supervision of normal pregnancy, unspecified, second trimester (principal); Z3A.17 17 weeks gestation of pregnancy
CPT/HCPCS: 36415; 82105

== ENCOUNTER 2025-08-23 09:03 | Outpatient (OUT) | payer OTHER, MEDICAID, SELFPAY ==
--- OUTSIDE RECORDS SUMMARY | 2025-08-16 11:30 | XMS_ITS | Encounter Summary ---
Author Organization [facility] Address [address] [place] [address] Care Team Providers Care Marketing Support Manager Name Role Phone Unavailable Primary Care Provider Unavailabl e Reason for Visit * ReasonCommentsRoutine Visit Encounter Details DateTypeDepartmentCare Team (Latest Contact Info)Ewcfvqswyra72/15/2025 11:30 AM EDTRoutine [facility] [address] [address] Jorge Rose DO [address] [place] [address] Gastroesophageal reflux disease with esophagitis without hemorrhage (Primary Dx); Second trimester ([facility]); 25 weeks gestation of ([facility]); Diabetes mellitus screening; size inconsistent with dates ([facility]) Social History Tobacco UseTypesPacks/DayYears UsedDateSmoking Tobacco: FormerCigarettes Estimated Date of ZsjjrttyMthiymemDnc23/24/2026Based on Ultrasound, FHR- 101Sex and Gender InformationValueDate RecordedSex Assigned at BirthNot on fileLegal RscLpotif60/15/2023 6:40 PM EDTGender IdentityNot on fileSexual OrientationNot on filedocumented as of this encounter Last Filed Vital Signs Vital SignReadingTime TakenCommentsBlood Jclxcsua848/7008/16/2025 11:11 AM EDT Pulse--Temperature--Respiratory Rate--Oxygen Saturation--Inhaled Oxygen Concentration--Imzdmh08.3 kg (188 lb)08/16/2025 11:11 AM EDTHeight--Body Mass Index37.3403 12:00 PM ESTdocumented in this encounter Progress Notes * Macrina Ren NP - 08/16/2025 11:30 AM EDT Reason for Appointment: Patient ID: Sofia Mcgowan is a 24 y.o. female who presents for Routine Visit Patient presents today for Return OB appointment. MEDICATIONS Current Outpatient Medications Medication Instructions omeprazole (PRILOSEC) 20 mg, Oral, Daily before breakfast, Do not crush or chew. pregabalin (LYRICA) 200 mg, Daily Vit-Fe Fumarate-FA ( Vitamins) 28-0.8 MG tablet 1 tablet, Oral, Daily ALLERGIES Allergies[1] PROBLEMS Active Ambulatory Problems Diagnosis Date Noted No Active Ambulatory Problems Resolved Ambulatory Problems Diagnosis Date Noted No Resolved Ambulatory Problems No Additional Past Medical History HISTORY PAST MEDICAL HISTORY SOCIAL HISTORY Medical History[2] Social History Tobacco Use Smoking status: Former Types: Cigarettes Smokeless tobacco: Not on file Substance Use Topics Alcohol use: Not on file Drug use: Not on file FAMILY HISTORY Family History[3] SURGICAL HISTORY Surgical History[4] REVIEW OF SYSTEMS Review of Systems: Review of Systems Constitutional: Negative. HENT: Negative. Eyes: Negative. Respiratory: Negative. Cardiovascular: Negative. Gastrointestinal: Negative. Heartburn Genitourinary: Negative. Musculoskeletal: Negative. Skin: Negative. Neurological: [...] nursing note reviewed. Exam conducted with a slubber tender present. Vitals: Estimated body mass index is 37.34 kg/m?? as calculated from the following: Height as of 01/03/22: 4' 11.5 . Weight as of this encounter: 188 lb. BP: 120/70 Patient's last menstrual period was 02/11/2025. ASSESSMENT & PLAN ICD-10-CM 1. Second trimester ([facility]) Z34.92 POCT urinalysis dipstick manually resulted 2. 25 weeks gestation of ([facility]) Z3A.25 3. Diabetes mellitus screening Z13.1 CBC Glucose tolerance, 1 hour CBC Glucose tolerance, 1 hour Return OB: Patient presents today for a routine obstetrics appointment. Patient is currently 25w4d . Patient states she is doing well but has complaints of being tired due to current . Patient has verbalizes frequent movement. labor precautions was discussed/given and patient was instructed to perform kick counts three times a day. Orders Placed This Encounter Procedures CBC Glucose tolerance, 1 hour POCT urinalysis dipstick manually resulted Follow Up: Patient is to return to office in 3 week for routine OB appointment. Documented by Macrina Ren NP on behalf of: Jorge Rose DO [1] Allergies Allergen Reactions Ketorolac Anaphylaxis Other Reaction(s): hives Penicillins Anaphylaxis Other Reaction(s): Unknown Other Reaction(s): hives Tramadol Anaphylaxis Other Reaction(s): hives Pollen Extract Toradol [Ketorolac Tromethamine] Wound Dressing Adhesive Other Reaction(s): Other (See Comments) Redness from EKG patches if left on too long [2] No past medical history on file. [3] Family History Problem Relation Name Age of Onset Breast cancer Mother STAGE 4 METS Other (HIGH BLOOD PRESSURE) Mother Diabetes Mother Hyperlipidemia Mother Schizophrenia Mother Depression Mother Anxiety disorder Mother Bipolar disorder Mother Alcohol abuse Father Schizophrenia Mother's Brother Suicide Attempts Mother's Brother Suicide Attempts Maternal Grandmother Schizophrenia Maternal Grandmother Pancreatic cancer Maternal Grandfather [4] Past Surgical History: Procedure Laterality Date CYST REMOVAL CHEST TONSILLECTOMY TUBAL LIGATION 1/2 TUBE REMOVED WISDOM TOOTH EXTRACTION documented in this encounter Plan of Treatment DateTypeDepartmentCare Team (Latest Contact Info)Tckdjpapinq63/03/2025 10:30 AM ESTAncillary Procedure [facility] [address] [address] 09/06/2025 11:10 AM ESTRoutine [facility] [address] [place] [id number] MiltonJorge canales, [address] [place] [place], [place] [address] NameTypePriorityAssociated DiagnosesOrder ScheduleCBCLabRoutine Diabetes mellitus screening Expected: 08/16/2025 (Approximate), Expires: 08/16/2026Glucose tolerance, 1 hour LabRoutine Diabetes mellitus screening Expected: 08/16/2025 (Approximate), Expires: 08/16/2026US OB follow up transabdominal approachImagingRoutine size inconsistent with dates ([facility]) Expected: 08/16/2025, Expires: 12/17/2025documented as of this encounter Procedures Procedure NamePriorityDate/TimeAssociated DiagnosisCommentsPOCT URINALYSIS AFRBRNHCMxcjofs40/15/2025 11:12 AM EDT Second trimester ([facility]) documented in this encounter Results * POCT urinalysis dipstick manually resulted (08/16/2025 11:12 AM EDT)Component ValueRef RangeTest MethodAnalysis TimePerformed AtPathologist SignatureColor, UAYellowClarity, UAClearGlucose, UANegativeNegative - 1999(110) ++++ mg/dL Bilirubin, UANegativeNegative - 4(70) +++ mg/dLKetones, UANegativeNegative - 160(16) ++++ mg/dLSpec Grav, UA1.0051 - 1.03Blood, UANegativeNegative - 50 Mando/mcLpH, UA8.05 - 9Protein, UANegativeNegative - 2000(20) ++++ mg/dL Urobilinogen, UA1.00.2 - 12 mg/dLLeukocytes, UANegativeNegative - 500+++ Maddy/mcLNitrite, UANegativeNegative - PositiveSpecimen (Source)Anatomical Location / LateralityCollection Method / VolumeCollection TimeReceived Time Urine08/16/2025 11:12 AM EDT Narrative Authorizing ProviderResult TypeResult StatusCorey Milton DOPOINT OF CARE TEST ENTER/EDIT ORDERABLESFinal Result documented in this encounter Visit Diagnoses Diagnosis Gastroesophageal reflux disease with esophagitis without hemorrhage- Primary Second trimester ([facility]) state, incidental 25 weeks gestation of ([facility]) Diabetes mellitus screening Screening for diabetes mellitus size inconsistent with dates ([facility]) documented in this encounter
--- OUTSIDE RECORDS SUMMARY | 2025-08-23 08:00 | XMS_ITS | Encounter Summary ---
Author Organization [facility] Address [address] [place] [address] Care Team Providers Care Reformatory Attendant Name Role Phone Unavailable Primary Care Provider Unavailabl e Encounter Details DateTypeDepartmentCare Team (Latest Contact Info)Ybdxjmucxgg46/22/2025 8:00 AM EDTAncillary Procedure [facility] [address] [place] [address] Marginal placenta ([facility]); Encounter for follow-up ultrasound of anatomy ([facility]) Social History Tobacco UseTypesPacks/DayYears UsedDateSmoking Tobacco: FormerCigarettes Estimated Date of IcjfkyleXhuwnzswIic77/24/2026Based on Ultrasound, FHR- 101Sex and Gender InformationValueDate RecordedSex Assigned at BirthNot on fileLegal NkdCpwilg34/15/2023 6:40 PM EDTGender IdentityNot on fileSexual OrientationNot on filedocumented as of this encounter Plan of Treatment DateTypeDepartmentCare Team (Latest Contact Info)Kftowewuklb22/05/2025 10:30 AM ESTAncillary Procedure [facility] [address] [place] [address] 09/06/2025 11:10 AM ESTRoutine [facility] [address] [place] [address] Jorge Rose DO [address] [place] [address] NameTypePriorityAssociated DiagnosesDate/TimeUS OB limited 1+ fetusesImaging Routine Marginal placenta ([facility]) 08/23/2025 8:39 AM EDTUS OB limited 1+ fetusesImagingRoutine Encounter for follow-up ultrasound of anatomy ([facility]) 08/23/2025 8:39 AM EDTdocumented as of this encounter Visit Diagnoses Diagnosis Marginal placenta ([facility]) Placenta previa without hemorrhage, unspecified as to episode of care Encounter for follow-up ultrasound of anatomy ([facility]) documented in this encounter
--- OUTSIDE RECORDS SUMMARY | 2025-08-23 09:10 | XMS_ITS | Clinical Summary ---
Author Organization [facility] Address [id number] [place] [address] Care Team Providers Care Special Effects Artist Name Role Phone Len Atkinson Primary Care Provider + [phone] Allergies Active AllergyReactionsCriticalityNoted DateCommentsAdhesiveOther (See Comments) 01/28/2023 Redness from EKG patches if left on too long PmjljsrxyfoKygfljdddgpYqcm98/08/2023ollen Yqttfgfl95/06/2023etorolac OydmhnckbjsWhqu15/08/4512XgqzdrniCpjxqmiyrcbEyfc33/08/2023 Medications MedicationSigDispense QuantityRefillsLast FilledStart DateEnd DateStatus ondansetron (ZOFRAN) 4 mg tablet Indications:Cyst of left ovary,NauseaTake 1 tablet (4 mg total) by mouth daily as needed for nausea or vomiting. 30 tablet ctive Additional Information Patient not taking.Reported on 02/25/2023 docusate sodium (COLACE) 100 mg capsule Take 1 capsule (100 mg total) by mouth in the morning and 1 capsule (100 mg total) before bedtime. 30 capsule 02/18/2023ctive Additional Information Patient not taking.Reported on 01/13/2024 albuterol (PROVENTIL HFA;VENTOLIN HFA) 90 mcg/actuation inhaler Indications:Asthma, unspecified asthma severity, unspecified whether complicated, unspecified whether persistentInhale 2 puffs every 6 (six) hours as needed for wheezing. 18 g ctive Additional Information Patient not taking.Reported on 01/13/2024 ibuprofen (MOTRIN) 800 mg tablet Indications:Pelvic pain,DysmenorrheaTake 1 tablet (800 mg total) by mouth every 8 (eight) hours as needed for pain. 30 tablet 4Active Active Problems ProblemNoted DateDiagnosed DateOvarian cyst02/18/2023Family history of breast dofwjo4912/10/2022 Overview (12/10/2022): Mother at age 48 Secondary gzgzyhckdg03/08/2023Obesity (BMI 30.0-34.9)12/10/20226151Jcrsdb43/08/2023 Overview (12/10/2022): Encouraged cessation Family History Medical HistoryRelationNameCommentsLiver cancerMaternal GrandfatherLung cancer Maternal GrandfatherBreast cancerMotherstage 4.MetastaticDiabetesMotherEclampsia MotherRelationNameStatusCommentsMaternal GrandfatherDeceasedMaternal Grandmother DeceasedMother Social History Tobacco UseTypesPacks/DayYears UsedDateSmoking Tobacco: Every DayCigarettes Smokeless Tobacco: Never Tobacco Cessation:Ready to Q uit: Not Asked; Counseling Given: Not Answered Alcohol UseStandard Drinks/WeekCommentsNot Currently0 (1 standard drink = 0.6 oz pure alcohol)socialPHQ-2AnswerDate RecordedTotal Dihtn683/13/2024ChildcareAnswer Date RnvvpwabVksajfgueEqzkqcy09/13/2019EmploymentAnswerDate RecordedEmployment Itnzewt9104/14/2019Hunger ScreeningAnswerDate RecordedWithin the past 12 months we worried whether our food would run out before we got money to buy more.Never True01/13/2024Within the past 12 months the food we bought just didn't last and we didn't have money to get more.Never True01/13/2024CommentsNoSex and Gender InformationValueDate RecordedSex Assigned at DtxvwXhbnsh43/21/2023 10:59 AM ESTLegal RfqZigfme01/24/2017 10:27 AM EDTGender KqdkipxkKuqvdh64/21/2023 10:59 AM ESTSexual BxkrxaugkhsYdiqcllk50/ 10:59 AM EST Last Filed Vital Signs Vital SignReadingTime TakenCommentsBlood Oitcgzyw658/8201/13/2024 8:39 AM EDT Gkdci361404/07/2023 9:34 AM DZWLfgazjopjsw16.4 ??C (97.5 ??F)02/18/2023 1:33 PM EDTRespiratory Gias769504/07/2023 9:34 AM EDTOxygen Gqdkxtdxyh50%02/18/2023 2:45 PM EDTInhaled Oxygen Concentration--Yhgsxb48.6 kg (171 lb)01/13/2024 8:39 AM EDT Knqaho944.1 cm (4' 11.5 )01/13/2024 8:39 AM EDTBody Mass Index33.9601/13/2024 8:39 AM EDT Plan of Treatment Health MaintenanceDue DateLast DoneCommentsAdult BMI Esjpxxyun42/13/2025 01/13/2024epression Tgjqxplpf62Tobacco Bphucilwv54/13/2025 01/13/2024OVID-19 Vaccine ( season)507/, 04/30/2021 Influenza Hxurmuc6007/03/2025Pap SmearTaP,Tdap and Td Vaccines (2 - Td or Tdap)/ Medical Devices Not on file Procedures Procedure NamePriorityDate/TimeAssociated DiagnosisCommentsPAP SMEARRoutine 01/13/2024 7:40 AM EDT Cervical smear, as part of routine gynecological examination from Last 3 Months or Most Recently Relevant to Health Maintenance Results * Pap Smear (01/13/2024 7:40 AM EDT)Specimen (Source)Anatomical Location / LateralityCollection Method / VolumeCollection TimeReceived Time01/13/2024 7:40 AM EDT01/13/2024 7:41 AM EDT Narrative COPATH - 01/27/2024 8:57 AM EDT ? [facility] ? [address] [place] [address] ? [place] [address] ? Gynecologic Cytology Consultation ? Patient Name:JULIANA SOFIA Musa:2000 (Age: 23)Gender:FTaken:4Reported:4Physician(s):Kim Crawford DO ([phone])Copy To: Rec. #:[id number]: #[id number] Final Cytologic Interpretation ThinPrep Pap Test (Cervical): Satisfactory for evaluation. A transformation zone component is present. NEGATIVE FOR INTRAEPITHELIAL LESION OR MALIGNANCY. jja/01/27/2024 Interpretation performed at [facility], [address] [place] [address], License number: [id number]. Electronically Signed Out By ?CELSO Major(ASCP) Date of Last Menstrual Period: ? 01/08/24 Other Clinical Conditions: Z01.419 Go Go Dancer exam wo/abn findings Source of Specimen ??ThinPrep Pap Test (Cervical) ? Thin Prep Pap ([employer]) Fee Code(s): ?? G0145 Authorizing ProviderResult TypeResult StatusTansohail Crawford DOPATHOLOGY/CYTOLOGY ORDERABLESFinal ResultPerforming OrganizationAddressCity/State/ZIP CodePhone Number COPATH from Last 3 Months or Most Recently Relevant to Health Maintenance Insurance * Guarantor: Sofia McgowanAccount TypeRelation to PatientDate of BirthPhoneBilling AddressPersonal/QmikqdGzki2000 [address] [address] Advance Directives * Full Code (Latest Code Status on File) Date ActivatedDate InactivatedComments02/18/2023 2:12 PM02/18/2023 10:40 PM Care Teams Team MemberRelationshipSpecialtyStart DateEnd Date Len Atkinson DO [address] [place] [address] PCP - GeneralFamily Medicine12/15/22
--- OUTSIDE RECORDS SUMMARY | 2025-08-23 09:10 | XMS_ITS | Clinical Summary ---
Author Organization [facility] Healthcare Address [address] [place] [address] Care Team Providers Care Shank Threader Name Role Phone Unavailable Primary Care Provider Unavailabl e Allergies Active AllergyReactionsCriticalityNoted DateCommentsKetorolacAnaphylaxisHigh 12/10/2022 Other Reaction(s): hives ZbhsqrheessHgyazaxoqdsGmdr32/08/2023 Other Reaction(s): Unknown Other Reaction(s): hives Pollen Xvxvfjh0504/07/2023etorolac Dyomzjhgtivm45/29/2025TramadolAnaphylaxisHigh 12/10/2022 Other Reaction(s): hives Wound Dressing Fvifcbsd63/29/2023 Other Reaction(s): Other (See Comments) Redness from EKG patches if left on too long Medications MedicationSigDispense QuantityRefillsLast FilledStart DateEnd DateStatus pregabalin (Lyrica) 200 MG capsule Take 200 mg by mouth Daily5Active omeprazole (PriLOSEC) [address] capsule Indications:Gastroesophageal Reflux Disease,HeartburnTake 1 capsule (20 mg) by mouth in the morning. Take before meals. Do not crush or chew. 30 capsule 5Active Vit-Fe Fumarate-FA ( Vitamins) 28-0.8 MG tablet Indications:Missed menses,, unspecified gestational age ([facility]), Encounter for supervision of normal first in first trimester ([facility]) ,NauseaTake 1 tablet by mouth Daily 30 tablet [id number] pantoprazole (Protonix) 20 MG EC tablet Indications:Gastroesophageal reflux disease with esophagitis without hemorrhage Take 1 tablet (20 mg) by mouth in the morning. Take before meals. Do not crush, chew, or split. 30 tablet 111ctive Vit-Fe Fumarate-FA ( Vitamins) 28-0.8 MG tablet Indications:Missed menses,, unspecified gestational age ([facility]), Encounter for supervision of normal first in first trimester ([facility]) ,NauseaTake 1 tablet by mouth Daily 30 tablet Discontinued(Reorder) metoclopramide (Reglan) 10 MG tablet Indications:Nausea and vomiting, unspecified vomiting typeTake 1 tablet (10 mg) by mouth in the morning and 1 tablet (10 mg) in the evening and 1 tablet (10 mg) before bedtime. 90 tablet Discontinued(Therapy completed) promethazine (Phenergan) 12.5 MG tablet Indications:Gastroesophageal reflux in ([facility])Take 1 tablet (12.5 mg) by mouth every 6 (six) hours if needed for nausea or vomiting for up to 30 d oses Take 1 tablet by mouth every 6 hours as needed for nausea. 30 tablet Discontinued(Therapy completed) ondansetron ODT (Zofran-ODT) 4 MG disintegrating tablet Take 4 mg by mouth every 6 (six) hours if needed for nausea or vomiting Discontinued(Therapy completed) Encounters DateTypeDepartmentCare EecnWkqommkwpvj98/22/2025 8:00 AM EDTAncillary [place] [address] Marginal placenta ([facility]); Encounter for follow-up ultrasound of anatomy ([facility])08/23/20[place] [address] Ciarra Farfan LPN Encounter for follow-up ultrasound of anatomy ([facility])08/16/2025 11:30 AM EDTRoutine [facility]CE[facility] [address] [place] [address] Jorge Rose, Gastroesophageal reflux disease with esophagitis without hemorrhage (Primary Dx); Second trimester ([facility]); 25 weeks gestation of ([facility]); Diabetes mellitus screening; size inconsistent with dates ([facility])08/16/2025amboo flowsheet [facility] [address] [place] [address] Jorge Rose, 07/26/2025Telephone [facility] [address] [place] [address] Jorge Rose, 07/26/2025Refill [facility] [address] [place] [address] Shahida Sheikh LPN Missed menses; , unspecified gestational age ([facility]); Encounter for supervision of normal first in first trimester ([facility]); Qpsgkc3707/18/2025 10:00 AM EDTRoutine [facility] YADAVN [address] [place] [address] Wandy Kelly PA 21 weeks gestation of ([facility]); Second trimester ([facility])07/18/2025 9:00 AM EDTAncillary Procedure [facility] [address] [place] [address] Screening, , for anatomic survey ([facility])06/21/2025Refill [facility] [address] [place] [address] Wandy Kelly PA Gastroesophageal reflux in ([facility]); Bacterial infection due to voaifqiicg14/19/2025 10:50 AM EDTRoutine [facility] [address] [place] [address] Jorge Rose, DO Vaginal discharge; STD exposure; Second trimester ([facility]); 17 weeks gestation of ([facility]); Screening, , for anatomic survey ([facility])5Clinisync Result Encounter NOM[facility] External Department Unsolicited Jorge Rose, DO 5Bamboo flowsheet [facility] [place] [facility] [address] [place] [address] Jorge Rose, DO 06/01/2025Orders Only [facility] [address] [place] [address] Cordelia Loja MA 05/24/2025Telephone [facility] [address] [place] [id number] Najma Perez MA 05/23/2025 9:30 AM EDTRoutine [facility] [address] [place] [phone] Wandy Kelly, PA Second trimester ([facility]); 13 weeks gestation of ([facility]); Well woman exam with routine gynecological exam; Vaginal discharge; STD exposure; Gastroesophageal reflux in ([facility])5Clinisync Result Encounter NOMS External Department Unsolicited Wandy Kelly PA 05/23/2025External Result Encounter NOMS External Department Unsolicited Wandy Kelly PA 05/23/2025amboo flowsheet [facility] [address] [place] [address] Wandy Kelly PA from Last 3 Months Family History Medical HistoryRelationNameCommentsAlcohol abuseFatherPancreatic cancerMaternal GrandfatherSchizophreniaMaternal GrandmotherSuicide AttemptsMaternal Grandmother Anxiety disorderMotherBipolar disorderMotherBreast cancerMotherSTAGE 4 METS DepressionMotherDiabetesMotherHIGH BLOOD PRESSUREMotherHyperlipidemiaMother SchizophreniaMotherSchizophreniaMother's BrotherSuicide AttemptsMother's Brother RelationNameStatusCommentsFatherMaternal GrandfatherMaternal GrandmotherMother Mother's Brother Social History Tobacco UseTypesPacks/DayYears UsedDateSmoking Tobacco: FormerCigarettes Tobacco Cessation:Counseling Given: Not Answered Estimated Date of HyqwvbewKkmaaqxqGsr32/24/2026ased on Ultrasound, [facility]- 101Sex and Gender InformationValueDate RecordedSex Assigned at BirthNot on file Legal HplOcfmde00/15/2023 6:40 PM EDTGender IdentityNot on fileSexual OrientationNot on file Last Filed Vital Signs Vital SignReadingTime TakenCommentsBlood Yxxmdkjz442/7008/16/2025 11:11 AM EDT Pulse--Temperature--Respiratory Rate--Oxygen Saturation--Inhaled Oxygen Concentration--Csnqsa12.3 kg (188 lb)08/16/2025 11:11 AM QPLPrgosx049.1 cm (4' 11.5 )01/03/2022 12:00 PM ESTBody Mass Index37.34001/03/2022 12:00 PM EST Plan of Treatment DateTypeDepartmentCare Team (Latest Contact Info)Mtxapwxaykx13/05/2025 10:30 AM ESTAncillary Procedure [facility] RAM[facility] [address] [place] [address] [place] [address] 09/06/2025 11:10 AM ESTRoutine [facility] RAM[facility] [address] [address] Jorge Rose DO [address] [place] [address] Procedures Procedure NamePriorityDate/TimeAssociated DiagnosisCommentsPOCT URINALYSIS LKGJXYFOTwedopn39/15/2025 11:12 AM EDT Second trimester ([facility]) POCT URINALYSIS GNYZYGRMGkwzsrs53/16/2025 10:00 AM EDT 21 weeks gestation of ([facility]) Second trimester ([facility]) US OB 14+ WEEKS ANATOMY GPNKIynryoi34/16/2025 9:51 AM EDT Screening, , for anatomic survey ([facility]) RECURRENT VAGINITIS (HTRX)Xsclzub5106/20/2025 12:10 PM EDT AFP, SERUM, OPEN SPINA WGPMBZMmincbu45/19/2025 11:59 AM EDT POCT URINALYSIS ZMKXULGROqnynae04/19/2025 11:04 AM EDT Second trimester ([facility] 17 weeks gestation of ([facility]) RECURRENT VAGINITIS (HTRX)Vaqqvzd7605/23/2025 9:53 AM EDT POCT URINALYSIS KPUAAJJTCvipgny17/22/2025 9:29 AM EDT Second trimester ([facility]) IGP,APTIMA HPV,AGE NWBAOxusvez89/22/2025 9:13 AM EDT PAP KSPHLVlgnyxg97/22/2025 12:00 AM EDTfrom Last 3 Months Results * POCT urinalysis dipstick manually resulted (08/16/2025 11:12 AM EDT) Only the most recent of4 resultswithin the time period is included. ComponentValueRef RangeTest MethodAnalysis TimePerformed AtPathologist Signature Color, UAYellowClarity, UAClearGlucose, UANegativeNegative - 2000(110) ++++ mg/dLBilirubin, UANegativeNegative - 4(70) +++ mg/dLKetones, UANegativeNegative - 160(16) ++++ mg/dLSpec Grav, UA1.0051 - 1.03Blood, UANegativeNegative - 50 Mando/mcLpH, UA8.05 - 9Protein, UANegativeNegative - 2000(20) ++++ mg/dL Urobilinogen, UA1.00.2 - 12 mg/dLLeukocytes, UANegativeNegative - 500+++ Maddy/mcL Nitrite, UANegativeNegative - PositiveSpecimen (Source)Anatomical Location / LateralityCollection Method / VolumeCollection TimeReceived QftvKzuos90/15/2025 11:12 AM EDT Narrative Authorizing ProviderResult TypeResult StatusCorey Milton DOPOINT OF CARE TEST ENTER/EDIT ORDERABLESFinal Result * US OB 14+ weeks anatomy scan (07/18/2025 9:51 AM EDT)Anatomical Region LateralityModalityBodyUltrasoundSpecimen (Source)Anatomical Location / LateralityCollection Method / VolumeCollection TimeReceived Time07/18/2025 1:19 PM EDT Addenda Addendum by Pablo Lucero MD on 07/25/2025 3:37 PM EDT ADDENDUM #1 RVOT/LVOT three-vessel cord and spine are suboptimally visualized on this current examination and merit additional imaging on follow-up studies. TRANSCRIBED BY: ? ELECTRONICALLY SIGNED BY: Pablo Lucero MD Impressions 07/18/2025 1:35 PM EDT 1. Single, live intrauterine , current sonographic age of 21 weeks and 6 days, with an estimated date of delivery of November 22, 2025 2. ?? Marginal posterior placenta, closed internal cervical os. * ??Estimated Weight (g) by Percentile is based upon an accurate estimated age based onlast menstrual period. ?? TRANSCRIBED BY: ? ELECTRONICALLY SIGNED BY: Pablo Lucero MD Narrative 07/18/2025 1:35 PM EDT FINDINGS: A single, live intrauterine is present with normal cardiac rate of 153 ??beats per minute. Normal activity and amniotic fluid volume. Morphology is grossly normal. The cervix islong and closed, 4.0 cm. ??The placenta is posterior, inferior aspect closely neighbors the closed cervical os. The current sonographic age is 21 weeks and 6 days, based on the following measurements: BPD ?5.3 cm ( 22weeks, 0 days) Head Circumference ? 18.9cm (21 weeks, 1 ??days) Abdominal Circumference ?17.8cm (22 weeks, 5 days) Femur Length ?3.6cm (21 weeks,3days) Presentation ? Breech Placenta ? Marginal posterior ? Weight (g) by Percentile ?? 76.6% * These measurements result in an estimated date of delivery of ??November 22, 2025. ?? The current estimated weight is 471 ?? grams ( 1 pound, 1 ??ounces). ?? Procedure Note Pablo Lucero MD - 07/18/2025 FINDINGS: A single, live intrauterine is present with normal cardiacrate of 153 beats per minute. Normal activity and amniotic fluidvolume. Morphology is grossly normal. The cervix is long and closed, 4.0cm. The placenta is posterior, inferior aspect closely neighbors theclosed cervical os. The current sonographic age is 21 weeks and 6 days,based on the following measurements: BPD 5.3 cm ( 22weeks, 0 days) Head Circumference 18.9cm (21 weeks, 1 days) Abdominal Circumference 17.8cm (22 weeks, 5 days) Femur Length 3.6cm (21 weeks,3days) Presentation Breech Placenta Marginal posterior Weight (g) by Percentile 76.6% * These measurements result in an estimated date of delivery of November. The current estimated weight is 471 grams ( 1 pound, 1ounces). IMPRESSION: 1. Single, live intrauterine , current sonographic age of 21weeks and 6 days, with an estimated date of delivery of November 22, 2025 2. Marginal posterior placenta, closed internal cervical os. * Estimated Weight (g) by Percentile is based upon an accurateestimated age based on last menstrual period. TRANSCRIBED BY: ELECTRONICALLY SIGNED BY: Pablo Lucero MD Authorizing ProviderResult TypeResult StatusCorey Milton ELLISON OB US PROCEDURES Edited Result - Final * (ABNORMAL) RECURRENT VAGINITIS (HTRX) (06/20/2025 12:10 PM EDT) Only the most recent of2 resultswithin the time period is included. ComponentValueRef RangeTest MethodAnalysis TimePerformed AtPathologist Signature ATOPOBIUM SMMMLYY033.961 - 24.689 ppm06/21/2025 8:06 AM EDTHealthTrackRx at [facility] BallardATOPOBIUM VAGINAENot Exhiokdt30.961 - 24.689 ppm06/21/2025 8:06 AM EDT [facility] BallardBVAB 2,3 (BACTERIAL VAGINOSIS ASSOCIATED BACTERIA 2, 3); MOBILUNCUS EFH785.961 - 24.689 ppm06/21/2025 8:06 AM EDTHealthTrackRx at [facility] BVAB 2,3 (BACTERIAL VAGINOSIS ASSOCIATED BACTERIA 2, 3); MOBILUNCUS SPPNot Uucgbdui17.961 - 24.689 ppm06/21/2025 8:06 AM EDTHealthTrackRx at LabPortCANDIDA ALBICANS, PARAPSILOSIS, RLFBLMXEER846.000 - 30.347 ppm06/21/2025 8:06 AM EDT [facility]PortCANDIDA ALBICANS, PARAPSILOSIS, TROPICALISNot Detected 23.000 - 30.347 ppm06/21/2025 8:06 AM EDTHealthTrackRx at LabPortCANDIDA NHZZJLGL612.000 - 31.618 ppm06/21/2025 8:06 AM EDTHealthTrackRx at [facility] SONYA GLABRATANot Qeytgahe74.000 - 31.618 ppm06/21/2025 8:06 AM EDT [facility]PortCANDIDA GVXDPF575.000 - 30.873 ppm06/21/2025 8:06 AM EDT [facility] LabPortCANDIDA KRUSEINot Bnbzbrqo32.000 - 30.873 ppm06/21/2025 8:06 AM EDTHealth[facility]Rx at [facility] VHVBOWSOHJE732.000 - 31.586 ppm 06/21/2025 8:06 AM EDTHealthTrackRx at LabPortCHLAMYDIA TRACHOMATISNot Detected 23.000 - 31.586 ppm06/21/2025 8:06 AM EDTHealthTrackRx at LabPortGARDNERELLA UBXNFCTJA856.961 - 24.689 ppm06/21/2025 8:06 AM EDTHealthTrackRx at [facility] GARDNERELLA VAGINALISNot Qnaikqpg94.961 - 24.689 ppm06/21/2025 8:06 AM EDT [facility] at LabPortMEGASPHAERA (TYPES 1, 2)019.961 - 24.689 ppm06/21/2025 8:06 AM EDTHealthTrackRx at LabPortMEGASPHAERA (TYPES 1, 2)Not Qpjobyax86.961 - 24.689 ppm06/21/2025 8:06 AM EDTHealthTrackRx at LabPortNEISSERIA GONORRHOEAE0 23.000 - 32.587 ppm06/21/2025 8:06 AM EDTHealthTrackRx at LabPortNEISSERIA GONORRHOEAENot Tquckhed41.000 - 32.587 ppm06/21/2025 8:06 AM EDTHealthTrackRx at LabPortTRICHOMONAS DEAVROUFM872.000 - 31.995 ppm06/21/2025 8:06 AM EDT [facility] at LabPortTRICHOMONAS VAGINALISNot Creaiayu47.000 - 31.995 ppm 06/21/2025 8:06 AM EDTHealthTrackRx at LabPortMYCOPLASMA VAPOSVCYAM66.833(A) 19.961 - 24.689 ppm06/21/2025 8:06 AM EDTHealthTrackRx at LabPortMYCOPLASMA GENITALIUMDetected(A)19.961 - 24.689 ppm06/21/2025 8:06 AM EDTHealthTrackRx at LabPortSpecimen (Source)Anatomical Location / LateralityCollection Method / VolumeCollection TimeReceived GusfHsnciz98/19/2025 12:10 PM EDT06/21/2025 2:19 AM EDT Narrative Authorizing ProviderResult TypeResult StatusAmy [facility] BLOOD ORDERABLES Final ResultPerforming OrganizationAddressCity/State/ZIP CodePhone Number [facility] [address] [id number] * AFP, SERUM, OPEN SPINA BIFIDA (06/20/2025 11:59 AM EDT)ComponentValueRef Range Test MethodAnalysis TimePerformed AtPathologist SignatureRESULTSReport.TBHTEST RESULTS:*Screen Negative*.TBHGEST. AGE ON COLLECTION DATE17.4. weeksTBHGESTAT. AGE BASED ONUltrasound.TBHComment: ?17.4 on 06/20/2025 Recalculations are not recommended when gestational dating by LMP and ultrasound are within 10 days. MATERNAL AGE AT EDD27.0. yrTBHRACECaucasian.LXAVLCHBD690. lbsTBHINSULIN DEP DIABETESNo.TBHMULTIPLE GESTATIONNo.TBHAFP VALUE45.5. ng/mLTBHAFP MOM1.25.TBHOSBR RISK 1 KJ6761.TBHINTERPRETATIONComment.TBHComment: Interpretation: Screen Negative This result is screen negative for OSB. The AFP MoM calculated is based on the gestational age provided. MS-AFP can identify up to 80% of open neural tube defects. Closed neural tube defects and some open defects may not be detected by this test. This test does not screen for Down Syndrome or Trisomy 18. If screening for Down Syndrome or Trisomy 18 is desired, contact [facility] to discuss available options. ??The [employer] recommends amniocentesis be offered to women age 35 and older. COMMENT:Comment.TBHComment: Roseanna Joshua, Ph.D., [facility] Director References: Available Upon Request. Multiples Of Median Cutoffs ?For AFP Elevations Coleman ?? 2.5 ? Black ?2.8 IDD ? 2.0 ? Twins ?4.5 ?Abbreviation Definitions IDD - Insulin Dep Diabetes OSBR - Open Spina Bifida Risk For further inquiries contact [facility] at [phone]. This test was developed and its performance characteristics determined by [employer] It has not been cleared or approved by the Food and Drug Administration. Performed at: ??TG - [facility] [address], [place], [place] ??[id number] Surgery Tech: Fidelina Chun [facility], Phone: ??[phone] Specimen (Source)Anatomical Location / LateralityCollection Method / Volume Collection TimeReceived Time06/20/2025 11:59 AM EDT06/20/2025 12:08 PM EDT Narrative CLINISYNC - 06/22/2025 12:07 AM EDT N N ULTRASOUND [id number] 3 17 N 1 Y 172 N N N N N White/ Authorizing ProviderResult TypeResult StatusCorey Milton DOLAB BLOOD ORDERABLES Final ResultPerforming OrganizationAddressCity/State/ZIP CodePhone Number CLINISYNC [facility] * IGP,APTIMA HPV,AGE GDLN (05/23/2025 9:13 AM EDT)ComponentValueRef RangeTest MethodAnalysis TimePerformed AtPathologist SignatureAGE GDLN ACOG TESTINGNote. TBHComment: ?? TESTS ? RESULT ??FLAG ??UNITS ?REF RANGE ??LAB ?? Clinician Provided Cytology Information ?? Source.............Vagina ?? Other.............. ?? No. of containers..01 ThinPrep Vial Age Algo ACOG Phuong... ??21-29 ? 01 ?FLAG LEGEND: ?L-Low Normal,H-High Normal,LL-Alert Low,HH-Alert High <-Panic Low,>-Panic High,A-Abnormal,AA-Critical Abnormal Performed at: 01 =G ?[facility] [place] ?? [address] [place] ??[phone] ?? Miranda Carson MD, IGP, RFX APTIMA HPV ASCUNote.TBHComment: ?? TESTS ? RESULT ??FLAG ??UNITS ?REF RANGE ??LAB DIAGNOSIS: ?02 ?? NEGATIVE FOR INTRAEPITHELIAL LESION OR MALIGNANCY. ?? FUNGAL ORGANISMS MORPHOLOGICALLY CONSISTENT WITH SONYA SPECIES ARE ?? PRESENT. ?? TRICHOMONAS VAGINALIS IS PRESENT. ?? THIS SPECIMEN WAS RESCREENED PART OF OUR CAN REPAIRER PROGRAM. Specimen adequacy: ?02 ?? Satisfactory for evaluation. ??Endocervical and/or squamous metaplastic ?? cells (endocervical component) are present. Performed by: ? 02 ?? Leigh Wright, Newspaper Peddler (ASCP) QC reviewed by: ? 02 ?? [employer] Peddler (ASC) . ? 02 Note: ? Note ?02 ?? The Pap smear is a screening test designed to aid in the ?? detection of premalignant and malignant conditions of the ?? uterine cervix. ??It is not a diagnostic procedure and ?? should not be used as the sole means of detecting cervical ?? cancer. ??Both false-positive and false-negative reports do ?? occur. Test Methodology: ? Note ?02 ?? This liquid based ThinPrep(R) pap test was screened with ?? the use of an image guided system. . ? 02 ?? The HPV DNA reflex criteria were not met with this specimen ?? result therefore, no HPV testing was performed. ?FLAG LEGEND: ?L-Low Normal,H-High Normal,LL-Alert Low,HH-Alert High <-Panic Low,>-Panic High,A-Abnormal,AA-Critical Abnormal Performed at: 02 WB ?[facility] [place] ?? [address] [place], [place] ??[phone] ?? Miranda Carson MD, Performed at: ??=G - [facility] [address] ??[id number] Surgery Tech: Miranda Carson MD, Phone: ??[phone] Performed at: ??WB - [facility] [address] ??[id number] Surgery Tech: Miranda Carson MD, Phone: ??[phone] Specimen (Source)Anatomical Location / LateralityCollection Method / Volume Collection TimeReceived Time05/23/2025 9:13 AM EDT05/23/2025 1:14 PM EDT Narrative CLINISYNC - 05/26/2025 12:08 PM EDT SPATULA-ALONE VAGINA Authorizing ProviderResult TypeResult StatusAmy Robin PALAB BLOOD ORDERABLES Final ResultPerforming OrganizationAddressCity/State/ZIP CodePhone Number [facility] * Pap Smear (05/23/2025 12:00 AM EDT)Specimen (Source)Anatomical Location / LateralityCollection Method / VolumeCollection TimeReceived TimeSwabCervical swab / Unknown Narrative Authorizing ProviderResult TypeResult StatusCorey Milton DOL CYTOLOGY ORDERABLESFinal ResultPerforming OrganizationAddressCity/State/ZIP CodePhone Number EXTERNAL LAB from Last 3 Months Insurance
--- OUTSIDE RECORDS SUMMARY | 2025-08-23 09:10 | XMS_ITS | Clinical Summary ---
Author Organization [facility] Address [address] [place] [address] Care Team Providers Care Vp Account Director Name Role Phone Unavailable Primary Care Provider Unavailabl e Social History Tobacco UseTypesPacks/DayYears UsedDateSmoking Tobacco: Never Assessed CommentsUnknownSex and Gender InformationValueDate RecordedSex Assigned at Not on fileLegal TiwNjuyfo15/09/2022 8:03 AM ESTGender IdentityNot on fileSexual OrientationNot on file Plan of Treatment Health MaintenanceDue DateLast DoneCommentsGONORRHEA JXBLTY11 1998HEPATITIS C VIRUS NJPSDNSHO22/30/3959CDXXUKQ1998HIV SCREENING QJQIMXVYRQ33/30/2013HPV VACCINE ADOL (1 - 3-dose series)2013HPV VACCINE (1 - 3-dose series) 2013CHLAMYDIA TCHZQO3010/31/2014HEP B VACCINE (1 of 3 - 19+ 3-dose series) 2017TDAP (ADULT)2017CERVICAL CANCER SCREENING ZOMWUCCASD96/30/2019 COVID-19 VACCINE (2024- season)2025INFLUENZA VACCINE (#1)2025 PNEUMOCOCCAL VACCINE SERIESAged OutNo longer eligible based on patient's age to complete this topic
--- OUTSIDE RECORDS SUMMARY | 2025-08-23 09:10 | XMS_ITS | CCD ---
Author Organization [facility] Care Team Providers Care Surg Physician Asst Name Role Phone ARGUELLO JAGDISH CHILO Unavailable Unavailable Wandy Dorado Primary Care Physician None, No PCP Unavailable Unavailable Unavailable Unavailable DO Shauna Atkinson Primary Care Provider DO Martinez Kumar Emergency Provider Betty, [facility] Payton Brooks Emergency Provider [phone] DO Joseph Wallace Emergency Provider DR GIOVANA GILMORE Admitting Unavailabl cecilia GILMORE, DR GIOVANA Kirby Attending Unavailabl e MISC, DR ISRAEL Primary Care Unavailable MISC, DR ISRAEL Primary Care Unavailable PAY ., DR ALMAZAN Admitting Unavailable PAY ., DR ALMAZAN Attending Unavailable MARYJT, DR SHAUNA Foss Consulting Unavailable PAY ., DR ALMAZAN Consulting [facility] Primary Care Unavailable VIDAL [...] Unavailable DO Shauna Atkinson Primary Care Provider [phone] MD Alton Boss Emergency Provider Cheng Cruz Unavailable Kayley Mo Unavailable Alton Boss Attending Unavailable Shauna Atkinson Primary Care Unavailable Alton Boss Admitting Unavailable Joseph Wallace Admitting Unavailable Joseph Wallace Attending Unavailable Shauna Atkinson Primary Care Unavailable TIBURCIO CRAWFORD Attending Unavailable SHAUNA ATKINSON Referring Unavailable SHAUNA ATKINSON P Primary Care Unavailable TIBURCIO CRAWFORD Referring Unavailable SHAUNA ATKINSON Primary Care Unavailable TIBURCIO CRAWFORD Attending Unavailable TIBURCIO CRAWFORD Referring Unavailable SHAUNA ATKINSON Primary Care Unavailable Shauna Atkinson DO P Primary Care Provider Unavailable Primary Care Provider UnavailJORGE Palacios Attending Unavailable WANDY KELLY Attending Unavailable JORGE ROSE Attending Unavailable WANDY KELLY Attending Unavailable JORGE ROSE Attending Unavailable Allergies Allergy ClassificationReported Allergen(s)Allergy TypeDate of OnsetReaction(s) Facility (2 sources)Penicillin; Translations: [penicillin]Drug AllergyAnaphylaxis (disorder)[facility] (1 source)PollenDrug allergyRespiratory function (observable entity)[facility] (5 sources)Penicillins [employer]; Translations: [Penicillins [employer]]Allergy to drug (finding)[facility] Work Phone: (20 sources)Ketorolac; Translations: [ketorolac]Drug Vxtzuhe13-08-7071whavd, AnaphylaxisSam[facility] (20 sources)Penicillins; Translations: [Penicillins]Propensity to adverse crmuvbgzm71-37-7511WnopumvlxafYiamdfrbx [facility] (20 sources)traMADol; Translations: [tramadol]Drug Clkkvlr50-40-9832Vaeieyopiay [facility] (1 source)KetorolacDrug [facility]ergyMer[facility] (3 sources)penicillAMINEDrug AllergyNaval Hospital [facility] Other (1 source)penicillAMINEDrug Zztkrtc14-45-0521RsxrspwxvSamaritan North Health Center Repository (6 sources)Adhesive agent; Translations: [ADHESIVE]Propensity to adverse reactions to drug (disorder)77-37-3948Lkjdc (See Comments)[facility] Repository (6 sources)Pollen; Translations: [POLLEN EXTRACTS]Propensity to adverse reactions to drug (disorder)53-08-0097WmuOincxm Repository (19 sources)Ketorolac trometamolPropensity to adverse zgzswdhxu68-86-7982[facility] (8 sources)PollenPropensity to adverse gckcafuyn89-95-3919[facility] (8 sources)Wound Dressing AdhesivePropensity to adverse eznvlpzjg85-66-4178EN[facility] Medications Current Medications MedicationDrug Class(es)DatesSig (Normalized)Sig (Original)acetaminophen 325 mg / HYDROcodone bitartrate 5 mg oral tablet (1 source)Opioid AgonistStart: 95-52-5947tyoz 1 tablet by mouth every four hours Hydrocodone-Acetaminophen Active 1 TAB PO Q4H 3 2 September 24, 2023Start: 19-94-4253dfri 1 tablet by mouth every four hoursHydrocodone-Acetaminophen Active 1 TAB PO Q4H 3 September 24, [id number] 60 actuat albuterol 0.09 mg/actuat metered dose inhaler (7 sources)beta2-Adrenergic AgonistStart: 02-05-0946wfdx 2 puff(s) by inhalation every four to six hours as neededAlbuterol Sulfate HFA 108 (90 Base) MCG/ACT 2 puffs as needed Inhalation every 4-6 hours for 14 days Nov, ActiveStart: 65-94-5847cmoq 2 puff(s) by inhalation every six hours as needed for wheezing albuterol (PROVENTIL HFA;VENTOLIN HFA) 90 mcg/actuation inhaler Indications: Asthma, unspecified asthma severity, unspecified whether complicated, unspecified whether persistent Inhale 2 puffs every 6 (six) hours as needed for wheezing. 18 g 1 08/20/2023 ActiveStart: 94-31-9371Lmqqaxugh Sulfate Active 2 PUFF INHALATION MORNING HYPOGLYCEMIC January 09, 2023 12:00amazithromycin 500 mg oral tablet (2 sources)Macrolide AntimicrobialStart: 06-22-2025 End: 84-78-3929pvci 1 tablet by mouth once dailyazithromycin (Zithromax) 500 MG tablet Indications: Bacterial infection due to mycoplasma Day 1: Take 2 tablets PO onetime dose; Day 2,3,4: Take 1 tablet daily 5 tablet 06/22/2025 07/18/2025 Discontinueddextromethorphan hydrobromide 15 mg / guaiFENesin 400 mg / pseudoephedrine hydrochloride 60 mg oraltablet (1 source)alpha-Adrenergic Agonist, Uncompetitive S-kbgijr-D-aspartate Receptor Antagonist, Sigma-1 AgonistStart: 68-89-1966abex 4 tablets by mouth every twenty-four hours as neededCapmist DM 60-15-400 MG as needed Orally every 4-6 hours as needed, max 4 tablets in 24 hours for 5days Nov, Activedocusate sodium 100 mg oral capsule (4 sources)Start: 82-94-0296tqzm 1 capsule by mouth in the morning, then take 1 capsule by mouth at bedtimedocusate sodium (COLACE) 100 mg capsule Take 1 capsule (100 mg total) by mouth in the morning and 1capsule (100 mg total) before bedtime. 30 capsule 0 02/18/2023 Activeibuprofen 800 mg oral tablet (17 sources)Nonsteroidal Anti-inflammatory DrugStart: 17-90-2482pqod 1 tablet by mouth every eight hours as needed for painibuprofen (MOTRIN) 800 mg tablet Indications: Pelvic pain , Dysmenorrhea Take 1 tablet (800 mg total) by mouth every 8 (eight) hours as needed for pain. 30 tablet 2 01/19/2024 ActiveStart: 10-14-2023 End: 58-49-4232yctn 1 tablet by mouth every eight hours as needed for pain ibuprofen (MOTRIN) 800 mg tablet Indications: Pelvic pain , Dysmenorrhea Take 1 tablet (800 mg total) by mouth every 8 (eight) hours as needed for pain. 30 tablet 2 10/14/2023 01/13/2024 Discontinued(Reorder)Start: 01-08-2022 End: 30-24-7167qcld 600 mg by mouth every six hoursIbuprofen Discontinued 600 MG PO Q6H January 08, 2022 12:00am January 12, 2022 9:29amStart: 13-84-3048umif 1 tablet by mouth three times daily at mealtime as neededIbuprofen 800 MG 1 tablet with food or milk as needed Orally Three times a day for 30 days Jan, Not-Taking/PRNInhalational Spacing Device (Breatherite Mdi Spacer) spacer (2 sources)Start: 37-00-5750Qxzdylcncchs Spacing Device (Breatherite Mdi Spacer) spacer Active EACH MISCELLANE January 092:00amMarijuana (2 sources)Start: 18-84-5726Mppuotvsc Active January 09, 2023 12:00am metoclopramide 10 mg oral tablet (16 sources)Dopamine-2 Receptor AntagonistStart: 04-03-2025 End: 50-49-0071wufa 1 tablet by mouth in the morning, then take 1 tablet by mouth in the evening, then take 1 tablet by mouth at bedtimemetoclopramide (Reglan) 10 MG tablet Indications: Nausea and vomiting, unspecified vomiting type Take 1 tablet (10 mg) by mouth in the morning and 1 tablet (10 mg) in the evening and 1 tablet (10 mg)before bedtime. 90 tablet 2 04/03/2025 08/16/2025 Discontinued (Therapy completed)Rosine (No Known Home Meds) (1 source)Start: 38-55-1486Da Name (No Known Home Meds) Active October 13, 2022 12:00amomeprazole 20 mg delayed release oral capsule (13 sources)Proton Pump InhibitorStart: 05-23-2025 End: 83-11-0067qjpi 1 capsule by mouth before mealtimeomeprazole (PriLOSEC) [address] capsule Indications: Gastroesophageal Reflux Disease , Heartburn Take 1 capsule (20 mg) by mouth in the morning. Take before meals. Do not crush or chew. 30 capsule 3 06/22/2025 Activeondansetron 4 mg disintegrating oral tablet (20 sources)Serotonin-3 Receptor AntagonistStart: 06-22-2025 End: 08-17-2073xsqy 1 tablet by mouth every six hours as needed for nausea and vomitingondansetron ODT (Zofran-ODT) 4 MG disintegrating tablet Take 4 mg by mouth every 6 (six) hours if needed for nausea or vomiting 06/22/2025 08/16/2025 Discontinued (Therapy completed)Start: 03-30-2025 End: 66-50-4149vrct 1 tablet by mouth every six hours as needed for nausea and vomiting and nausea and nauseaondansetron ODT (Zofran-ODT) 4 MG disintegrating tablet Indications: Nausea Take 1 tablet (4 mg) bymouth every 6 (six) hours if needed for nausea or vomiting 30 tablet 3 03/30/2025 04/29/2025 ActiveStart: 53-39-5179mjyz 1 tablet by mouth once daily as needed for nauseaondansetron (ZOFRAN) 4 mg tablet Indications: Cyst of left ovary , Nausea Take 1 tablet (4 mg total) by mouth daily as needed for nausea or vomiting. 30 tablet 1 01/20/2023 ActiveStart: 03-40-5325ubnt 4 mg by mouth once dailyOndansetron Active 4 MG PO Daily January 09, 2023 12:00amStart: 76-00-7620acpu 1 tablet by mouth three times daily as neededOndansetron 8 MG Oral Tablet Disintegrating DISSOLVE 1 (ONE) TABLET on tongue THREE TIMES DAILY NEEDED Quantity: 12 Refills: 0 Ordered: 28-Oct-2021 DO Start : 28-Oct-2021 Activepantoprazole 20 mg delayed release oral tablet (2 sources)Proton Pump InhibitorStart: 08-16-2025 End: 18-67-5611hyte 1 tablet by mouth before mealtimepantoprazole (Protonix) 20 MG EC tablet Indications: Gastroesophageal reflux disease with esophagitis without hemorrhage Take 1 tablet (20 mg) by mouth in the morning. Take before meals. Do not crush, chew, or split. 30 tablet 11 08/16/2025 08/16/2026 Active predniSONE 20 mg oral tablet (1 source)Start: 29-19-8118dokt 1 tablet by mouth every twelve hoursprednisone 20 MG 1 tablet Orally BID for 5 Nov, Activepregabalin 200 mg oral capsule (20 sources)Start: 39-57-8855rjhe 1 capsule by mouth once dailypregabalin (Lyrica) 200 MG capsule Take 200 mg by mouth Daily 01/19/2025 ActivePrenatal Vit-Fe Fumarate-FA ( Vitamins) 28-0.8 MG tablet (20 sources)Start: 07-26-2025 End: 76-60-5341hnfl 1 tablet by mouth once dailyPrenatal Vit-Fe Fumarate-FA ( Vitamins) 28-0.8 MG tablet Indications: Missed menses , , unspecified gestational age ([facility]) , Encounter for supervision of normal first infirst trimester ([facility]) , Nausea Take 1 tablet by mouth Daily 30 tablet 11 07/26/2025 07/26/2026 ActiveStart: 03-30-2025 End: 68-73-9203rdpv 1 tablet by mouth once dailyPrenatal Vit-Fe Fumarate-FA ( Vitamins) 28-0.8 MG tablet Indications: Missed menses , , unspecified gestational age ([facility]) , Encounter for supervision of normal first infirst trimester ([facility]) , Nausea Take 1 tablet by mouth Daily 30 tablet 3 03/30/2025 03/30/2026 ActiveStart: 03-30-2025 End: 68-86-6854bqbr 1 tablet by mouth once dailyPrenatal Vit-Fe Fumarate-FA ( Vitamins) 28-0.8 MG tablet Indications: Missed menses , , unspecified gestational age , Encounter for supervision of normal first in first trimester , Nausea Take 1 tablet by mouth Daily 30 tablet 3 03/30/2025 03/30/2026 Activepromethazine hydrochloride 12.5 mg oral tablet (13 sources)PhenothiazineStart: 05-23-2025 End: 17-92-4399cbes 1 tablet by mouth every six hours as needed for nausea and nausea, then take 1 tablet by mouthevery six hours as needed for nausea and nauseapromethazine (Phenergan) 12.5 MG tablet Indications: Gastroesophageal reflux in ([facility])Take 1 tablet (12.5 mg) by mouth every 6 (six) hours if needed for nausea or vomiting for up to 30 doses Take 1 tablet by mouth every 6 hours as needed for nausea. 30 tablet 2 05/23/2025 08/16/2025 Di scontinued (Therapy completed)Tri-Sprintec 35 mcg Tab (1 source)Start: 51-65-5298xxra 1 tablet by mouth once dailyTri-Sprintec 35 mcg Tab = 1 tab(s), Oral, Daily, NEED to schedule appt. before this refill runs out, # 84 tab(s), Refills(s) 1, Pharmacy: [id number], 150, cm, 04/29/21 15:53:00 EDT, Height/Length Dosing, 58, kg, 04/29/21 15:53:00 EDT, Weight Dosing Start Date: 05/22/21 Status: Ordered Completed/Discontinued Medications MedicationDrug Class(es)DatesSig (Normalized)Sig (Original)acetaminophen 300 mg / codeine phosphate 30 mg oral tablet (2 sources)Opioid AgonistStart: 01-09-2023 End: 68-73-6995Niwhrtuqvdqtk-Codeine Discontinued TAB TABLET January 09, 2023 12:00am January 09, 2023 11:55amacetaminophen 325 mg / oxyCODONE hydrochloride 5 mg oral tablet (20 sources)Opioid AgonistStart: 04-29-2022 End: 22-81-2415vhbj 1 tablet by mouth every four to six hoursOxycodone- Acetaminophen (Percocet) 5-325 mg tablet Discontinued 1 TAB PO EVERY 4-6 HOURS 12 6 April 29, 2022 October 13, 2022 11:50amStart: 01-28-2022 End: 60-64-4897pdvy 1 tablet by mouth every eight hoursOxycodone-Acetaminophen (Percocet) 5-325 mg tablet Discontinued 1 TAB PO Q8H 10 3 January 28, 2022 April 29, 2022 7:21amStart: 66-04-6695deiLNLZIW-Acetaminophen 5-325 MG Oral Tablet Quantity: 10 Refills: 0 Ordered: 28-Jan-2022 DO Start : 28-Jan-2022 ActiveStart: 01-09-2022 End: 66-07-6178exza 1 tablet by mouth every six hoursOxycodone-Acetaminophen Discontinued 1 TAB PO Q6H 14 January 12, 2022 January 16, 2022 9:47am clindamycin 300 mg oral capsule (7 sources)Lincosamide AntibacterialStart: 50-04-4667Tlxjmpvaznj HCl - 300 MG Oral Capsule Quantity: 28 Refills: 0 Ordered: 09-Jan-2022 DO Start : 09-Jan-2022 ActiveStart: 01-09-2022 End: 37-86-8043sbvb 300 mg by mouth every six hoursClindamycin Hcl Discontinued 300 MG PO Q6H 28 January 09, 2022 12:00am April 29, 2022 7:21amdoxycycline hyclate 100 mg oral capsule (14 sources)Tetracycline-class DrugStart: 04-29-2022 End: 00-07-9828vcpv 100 mg by mouth twice dailyDoxycycline Hyclate Discontinued 100 MG PO Twice daily April 28, 2022 11:00pm October 13, 2022 11:50amStart: 04-93-4457leij 1 capsule by mouth once dailyDoxycycline Hyclate 100 MG Oral Capsule TAKE 1 CAPSULE EVERY 12 HOURS DAILY. Quantity: 28 Refills: 1 Ordered: 10-Apr-2022 Juan Taylor MD Start : 10-Apr-2022 ActiveStart: 01-28-2022 Doxycycline Hyclate 100 MG Oral Capsule Quantity: 10 Refills: 0 Ordered: 28-Jan-2022 DO Start : 28-Jan-2022 ActiveStart: 01-08-2022 End: 76-13-5676xnyf 100 mg by mouth once dailyDoxycycline Hyclate Discontinued 100 MG PO Daily January 08, 2022 12:00am January 12, 2022 9:30amsprintec 28 0.25- 35 mg-mcg tablet (3 sources)Progestin, Estrogentake 1 tablet by mouth every twenty-four hours Sprintec 28 0.25-35 MG-MCG 1 tablet Orally Once a day Not-Taking/PRNtake 1 tablet by mouth every twenty-four hoursSprintec 28 0.25-35 MG-MCG 1 tablet Orally Once a day Not-Takingketorolac tromethamine 10 mg oral tablet (3 sources)Nonsteroidal Anti-inflammatory Drug, Cyclooxygenase InhibitorStart: 78-64-0716rdhd 1 tablet by mouth every six hours at mealtimeKetorolac Tromethamine 10 MG Oral Tablet TAKE 1 TABLET EVERY 6 HOURS WITH FOOD. Quantity: 20 Refills: 0 Ordered: 10-Apr-2022 Juan Taylor MD Start : 10-Apr-2022 Active meloxicam 15 mg oral tablet (3 sources)Nonsteroidal Anti-inflammatory DrugStart: 57-83-0395xkny 1 tablet by mouth every twenty-four hoursMeloxicam 15 MG 1 tablet Orally Once a day for 30 days Sep, Not-Taking/PRNnaproxen 500 mg oral tablet (3 sources)Nonsteroidal Anti-inflammatory DrugStart: 42-21-8550Kbebcyzk 500 MG Oral Tablet Quantity: 14 Refills: 0 Ordered: 30-Apr-2021 DO Start : 29-Apr-2021 Activesulfamethoxazole 800 mg / trimethoprim 160 mg oral tablet (5 sources)Dihydrofolate Reductase Inhibitor Antibacterial, Sulfonamide AntimicrobialStart: 41-49-8838ztuc 1 tablet by mouth twice daily Sulfamethoxazole-Trimethoprim 800-160 MG Oral Tablet TAKE 1 TABLET TWICE DAILY UNTIL FINISHED. Quantity: 28 Refills: 1 Ordered: 27-Mar-2022 Juan Taylor MD Start : 27-Mar-2022 ActivetraMADol hydrochloride 50 mg oral tablet (3 sources)Opioid AgonistStart: 39-60-2182torg 1 tablet by mouth every eight hours as neededtraMADol HCl - 50 MG Oral Tablet TAKE 1 TABLET EVERY 8 HOURS NEEDED. Quantity: 20 Refills: 0 Ordered: 10-Apr-2022 Juan Taylor MD Start : 10-Apr-2022 Active Problems Active Problems Problem ClassificationProblemDateDocumented DateEpisodic/ChronicAbdominal pain (12 sources)Unspecified abdominal pain; Translations: [Left lower quadrant pain] Onset: 74-68-4857CnuuiyidEikeu bronchitis (1 source)Acute bronchitis due to other specified organismsEpisodic Administrative/social admission (2 sources)Medication care plan discussed with patient; Translations: [Other specified counseling]37-50-8035FshyxwteVopbpzuzxo associated with dizziness or vertigo (1 source)Dizziness and giddiness; Translations: [Dizziness and giddiness]Onset: 22-62-5603DomqzjqxH Codes: Fall (1 source)Fall (on) (from) unspecified stairs and steps, initial encounter; Translations: [FALL ON FROM UNS STAIRS STEPS INIT]Onset: 85-64-7468Aedcjscf Esophageal disorders (2 sources)Gastro-esophageal reflux disease with esophagitis; Translations: [Gastroesophageal reflux disease with esophagitis without hemorrhage]08-16-2025 ChronicExternal cause codes: Transport; not MVT (1 source)Animal-rider injured by fall from or being thrown from horse in noncollision accident, initial encounter; Translations: [Animl-ridr injured by fall fr horse in nonclsn acc, init]Onset: 76-40-4601Fbichses; including migraine (1 source)Headache; Translations: [Headache]Onset: 18-92-1750Yetzaghb Immunizations and screening for infectious disease (4 sources)Exposure to sexually transmissible disorder; Translations: [Contact with and (suspected) exposure to infections with a predominantly sexual mode of transmission]68-54-9010XyglfortUsvtyqoldrcz injury (1 source)Concussion with loss of consciousness of 30 minutes or less, initial encounter; Translations: [Concussion w LOC of 30 minutes or less, init]Onset: 58-86-3490WbujimejCrbke disorders and dislocations; trauma-related (8 sources)Internal derangement of left knee; Translations: [Unspecified internal derangement of left knee]ChronicLymphadenitis (1 source)Nonspecific mesenteric lymphadenitis; Translations: [NONSPEC MESENTERIC LYMPHADENITIS]Onset: 48-73-9076InkcnpxoPtqvuzsjp disorders (8 sources)Dysmenorrhea, unspecified; Translations: [Dysmenorrhea]Onset: 741740-47-6512JfejdmdOohhtl and vomiting (3 sources)Nausea; Translations: [Nausea]87-10-5770SsfjivjxQxyyxvicwxa chest pain (1 source)Chest pain; Translations: [Chest pain, unspecified]Onset: 02-18-2022 EpisodicOther aftercare (1 source)Other detention (current) drug therapy; Translations: [OTH RV DETAILER CURRENT DRUG THERAPY]Onset: 58-34-1519ZrtekcjtRtaai aftercare (5 sources)Patient encounter status; Translations: [Other detention (current) drug therapy]43-08-4077CbstcjbcBfpqd bone disease and musculoskeletal deformities (2 sources)Chondromalacia, left kneeEpisodicOther complications of (2 sources)Gastroesophageal reflux disease in ; Translations: [Diseases of the digestive system complicating , unspecified trimester] 32-22-0051GvzdczpwYhycr complications of (2 sources) size does not accord with dates; Translations: [Uterine size- date discrepancy, unspecified trimester]54-46-4502GfjxzulqVwhuu connective tissue disease (3 sources)Pain in right hand; Translations: [PAIN IN RIGHT HAND]Onset: 12-33-2585KjfurnzdFyiiq female genital disorders (2 sources)Vaginal bleeding; Translations: [Abnormal uterine and vaginal bleeding, unspecified]88-24-8934DblvkklKyvqe female genital disorders (4 sources)Vaginal discharge; Translations: [Other specified noninflammatory disorders of vagina]80-44-5491XmxlufzwZzurk gastrointestinal disorders (1 source)Constipation, unspecified; Translations: [CONSTIPATION UNSPECIFIED] Onset: 35-50-5073LvrpezmqKxwih nervous system disorders (6 sources)Postoperative pain ; Translations: [Other acute postoperative pain] 37-20-7921VxtlrbyrPevay nervous system disorders (1 source)Other acute postprocedural pain; Translations: [OTHER ACUTE POSTPROCEDURAL PAIN]Onset: 35-97-5996TofvotshKfakh non-traumatic joint disorders (1 source)Pain in right shoulder; Translations: [Pain in right shoulder]Onset: 70-34-8591YayrfmhmGcjmi nutritional; endocrine; and metabolic disorders (4 sources)Obese class I; Translations: [Obesity, unspecified]Onset: 12-10-2022 18-64-3923AdwlpekLrgxa and delivery including normal (12 sources); Translations: [Encounter for supervision of normal , unspecified, unspecified trimester]17-57-5889FbqnzodyCiach skin disorders (5 sources)Epidermoid cyst; Translations: [Epidermal cyst]Onset: 02-18-2022 EpisodicOther skin disorders (5 sources)Infection of sebaceous cyst; Translations: [Sebaceous cyst]Episodic Residual codes; unclassified (2 sources)Gestation period, 9 weeks; Translations: [9 weeks gestation of ]19-43-2797LbrpjjkpDbiptber codes; unclassified (2 sources)Gestation period, 13 weeks; Translations: [13 weeks gestation of ]41-70-5236OxixmamgBajilhws codes; unclassified (2 sources)Gestation period, 17 weeks; Translations: [17 weeks gestation of ]19-78-6760FbljrcwwJsqgypfn codes; unclassified (2 sources)Gestation period, 21 weeks; Translations: [21 weeks gestation of ]55-55-1706JfctmcgjJzxjpeod codes; unclassified (2 sources)Gestation period, 25 weeks; Translations: [25 weeks gestation of ]30-86-2927TarolnxwNdqc and subcutaneous tissue infections (8 sources)Abscess; Translations: [Cutaneous abscess, unspecified]01-28-2022 EpisodicSpondylosis; intervertebral disc disorders; other back problems (2 sources)Cervicalgia; Translations: [Cervicalgia]Onset: 01-12-1935Brabtxer Sprains and strains (2 sources)Sprain of knee; Translations: [Sprain of unspecified site of left knee, initial encounter]Onset: 399663-41-7908KvaexcgzGgptiqesq-diobnhz disorders (5 sources)Nicotine dependence, cigarettes, uncomplicated; Translations: [Smoker]Onset: 174755-71-3674AnkwghkCvitalgsoaz injury; contusion (1 source)Contusion of right hand, initial encounter; Translations: [CONTUSION RIGHT HAND INITIAL ENC]Onset: 24-64-2537TtctftchZgaezaqrjevk (2 sources)COUGH, UNSPECIFIED; Translations: [COUGH, UNSPECIFIED]Onset: 95-52-4830Czqkeaippidk (1 source)Pain in left knee; Translations: [Pain in left knee]Onset: 09-24-2023 Unclassified (1 source)Unspecified ovarian cyst, left side; Translations: [Unspecified ovarian cyst, left side]Onset: 23-29-5780Udwewojksoum (1 source)Annual ExamOnset: 78-77-7682Etpmnbjtkzmh (1 source)Gynecologic ExamOnset: 46-65-9494Jvdsc infection (3 sources)Disease caused by 2019-nCoV; Translations: [COVID-19]10-13-2022 Episodic Past or Other Problems Problem ClassificationProblemDateDocumented DateEpisodic/ChronicInfluenza (1 source)Influenza due to unidentified influenza virus with other respiratory manifestations; Translations: [FLU D/T UNIDENT FLU VIR RESP MANIF]Onset: 06-15-9802SwbinnqxGceh disorders (4 sources)Mood disordersOnset: 331321-73-4185Ygnkprl cyst (11 sources)Cyst of ovary; Translations: [Unspecified ovarian cyst, unspecified side]Onset: 161786-35-3568ZnkvnpylIfngsqme codes; unclassified (4 sources)Family history of breast cancer; Translations: [Family history of malignant neoplasm of breast]Onset: 119586-61-9410MryzedyjPesabudsxyfv (1 source)COUGH, UNSPECIFIED; Translations: [COUGH, UNSPECIFIED]Onset: 73-45-2954Ngvepxidjlwm (1 source)Acute cough R05.1Unclassified (4 sources)Onset: 987502-60-2919 Results Test NameValueInterpretationReference RangeFacilityUrinalysis macro (dipstick) panel (U)on 86-35-2996Diffsjpzl, UANegativeNegative - 4(70) +++ mg/dLNOMS HealthcareBlood, UANegativeNegative - 50 Mando/mcLNOMS HealthcareClarity, UAClear NOMS HealthcareColor, UAYellowNOMS HealthcareGlucose, UANegativeNegative - 2000(110) ++++ mg/dLNOMS HealthcareInterpretation and review of laboratory resultsNormalNOMS HealthcareKetones, UANegativeNegative - 160(16) ++++ mg/dLNOMS HealthcareLeukocytes, UANegativeNegative - 500+++ Maddy/mcLNOMS HealthcareNitrite, UANegativeNegative - PositiveNOMS HealthcarepH, UA8.05 - 9N[facility] Healthcare Protein, UANegativeNegative - 2000(20) ++++ mg/dLNOMS HealthcareSpec Grav, UA 1.0051 - 1.03NOMS HealthcareUrobilinogen, UA1.00.2 - 12 mg/dLNOMS HealthcareNOMS HealthcareUS OB 14+ WEEKS ANATOMY SCANon 70-83-8832MY OB 14+ WEEKS ANATOMY SCAN ADDENDUM #1 RVOT/LVOT three-vessel cord and spine are suboptimally visualized on this current examinationand merit additional imaging on follow-up studies. TRANSCRIBED BY: ELECTRONICALLY SIGNED BY: Pablo Lucero MD FINDINGS: A single, live intrauterine is present with normal cardiac rate of 153 beats per minute. Normal activity and amniotic fluid volume. Morphology is grossly normal. The cervix is long and closed, 4.0 cm. The placenta is posterior, inferior aspect closely neighbors the closed cervical os. The current sonographic age is 21 weeks and 6 days, based on the following measurements: BPD 5.3 cm ( 22weeks, 0 days) Head Circumference 18.9cm (21 weeks, 1 days) Abdominal Circumference 17.8cm (22 weeks, 5 days) Femur Length 3.6cm (21 weeks,3days) Presentation Breech Placenta Marginal posterior Weight (g) by Percentile 76.6% * These measurements result in an estimated date of delivery of November 22, 2025. The current estimated weight is 471 grams ( 1 pound, 1 ounces). IMPRESSION: 1. Single, live intrauterine , current sonographic age of 21 weeks and 6 days, with an estimated date of delivery of November 22, 2025 2. Marginal posterior placenta, closed internal cervical os. * Estimated Weight (g) by Percentile is based upon an accurate estimated age based on last menstrual period. TRANSCRIBED BY: ELECTRONICALLY SIGNED BY: Violet Renae AvailableComment on above:Order Comment: US OB ANATOMY SINGLE W US OB CERVICAL LENGTH Estimated Date of Delivery: 11/25/25 Gestational Age as of 06/20/2025: 96p0pLgofwzmwgw macro (dipstick) panel (U)on 36-13-6955Szyoyxtpa, UANegativeNegative - 4(70) +++ mg/dLNOMS HealthcareBlood, UANegativeNegative - 50 Mando/mcLNOMS HealthcareClarity, UAClearNOMS Healthcare Color, UAYellowNOMS HealthcareGlucose, UANegativeNegative - 1999(110) ++++ mg/dL NOMS HealthcareInterpretation and review of laboratory resultsNormalNOMS HealthcareKetones, UANegativeNegative - 160(16) ++++ mg/dLNOMS Healthcare Leukocytes, UANegativeNegative - 500+++ Maddy/mcLNOMS HealthcareNitrite, UA NegativeNegative - PositiveNOMS HealthcarepH, UA8.55 - 9NOMS HealthcareProtein, UANegativeNegative - 2000(20) ++++ mg/dLNOMS HealthcareSpec Grav, UA1.011 - 1.03 NOMS HealthcareUrobilinogen, UA1.00.2 - 12 mg/dLNOMS HealthcareNOMS Healthcare AFP, SERUM, OPEN SPINA BIFIDAon 99-99-3589HNX MOM1.25.NOMS HealthcareAFP VALUE 45.5 ng/mL.NOMS HealthcareCOMMENT:Comment.NOMS HealthcareComment on above:Roseanna Joshua, Ph.D., [facility] Director References: Available Upon Request. Multiples Of Median Cutoffs For AFP Elevations Coleman 2.5 Black 2.8 IDD 2.0 Twins 4.5 Abbreviation Definitions IDD - Insulin Dep Diabetes OSBR - Open Spina Bifida Risk For further inquiries contact [facility] at [phone]. This test was developed and its performance characteristics determined by [facility]. It has not been cleared or approved by the Food and Drug Administration. Performed at: [facility] [address] [place], [place] [id number] Scaler: Fidelina Chun [facility], Phone: [phone] GEST. AGE ON COLLECTION DATE17.4. weeksNONY HealthcareGESTAT. AGE BASED ON Ultrasound.[facility] HealthcareComment on above:17.4 on 06/20/2025 Recalculations are not recommended when gestational dating by LMP and ultrasound are within 10 days. INSULIN DEP DIABETESNo.NOM HealthcareINTERPRETATIONComment.[facility] Comment on above:Interpretation: Screen Negative This result is screen negative [...] Genetic Customer Services to discuss available options. The [place] [employer] recommends amniocentesis be offered to women age 35 and older. MATERNAL AGE AT EDD27.0. yrNOMS HealthcareMULTIPLE GESTATIONNo.[facility] OSBR RISK 1 KE3416.NOMS HealthcareRACECaucasian.NOMS HealthcareRESULTSReport. [facility] HealthcareTEST RESULTS:Negative.NOM KvztdhszlbLDNUHQ624. lbsNOMS HealthcarePREGNANCY N N ULTRASOUND [id number] 3 17 N 1 Y 172 N N N N N White/ CLINISYNCNOMS HealthcareUrinalysis macro (dipstick) panel (U)on 06-20-2025 Bilirubin, UANegativeNegative - 4(70) +++ mg/dLNOMS HealthcareBlood, UANegative Negative - 50 Mando/mcLNOMS HealthcareClarity, UAClearNOMS HealthcareColor, UA YellowNOMS HealthcareGlucose, UANegativeNegative - 2000(110) ++++ mg/dLNOMS HealthcareInterpretation and review of laboratory resultsNormalNOHeartland Behavioral Health Services Ketones, UANegativeNegative - 160(16) ++++ mg/dLNONY HealthcareLeukocytes, UA NegativeNegative - 500+++ Maddy/mcLNONY HealthcareNitrite, UANegativeNegative - PositiveNOMS HealthcarepH, UA65 - 9NONY HealthcareProtein, UANegativeNegative - 1999(20) ++++ mg/dLNOMS HealthcareSpec Grav, UA1.011 - 1.03NOMS Healthcare Urobilinogen, UA1.00.2 - 12 mg/dLNOMS Fostoria City HospitalNONY HealthcareIGP,APTIMA HPV,AGE GDLNon 12-16-0049EON [facility] AC TESTINGNote.[facility] HealthcareComment on above:TESTS RESULT FLAG UNITS REF RANGE LAB Clinician Provided Cytology Information Source.............Vagina Other.............. No. of containers..01 ThinPrep Vial Age Algo ACOG Phuong... -30 11 FLAG LEGEND: L-Low Normal,H-High Normal,LL-Alert Low,HH-Alert High <-Panic Low,>-Panic High,A-Abnormal,AA-Critical Abnormal Performed at: 01 =G [facility] [place] [address] Miranda Carson MD, IGP, RFX APTIMA HPV ASCUNote.[facility]ostoria City HospitalComment on above:TESTS RESULT FLAG UNITS REF RANGE LAB DIAGNOSIS: 02 NEGATIVE FOR INTRAEPITHELIAL LESION OR MALIGNANCY. FUNGAL ORGANISMS MORPHOLOGICALLY CONSISTENT WITH SONYA SPECIES ARE PRESENT. TRICHOMONAS VAGINALIS IS PRESENT. THIS SPECIMEN WAS RESCREENED PART OF OUR PSYCHIATRIC TECH PROGRAM. Specimen adequacy: 02 Satisfactory for evaluation. Endocervical and/or squamous metaplastic cells (endocervical component) are present. Performed by: 02 Leigh Wright, Brilliandeer Looper ([facility]) QC reviewed by: 02 America Nielsen, Brilliandeer Looper ([facility]) . 02 Note: Note 02 The Pap [...] <-Panic Low,>-Panic High,A-Abnormal,AA-Critical Abnormal Performed at: [address] [id number] Miranda Carson MD, Performed at: = - [facility] [id number] Scaler: Miranda Carson MD, Phone: [phone] Performed at: [facility] [id number] Scaler: Miranda Carson MD, Phone: [phone] SPATULA-ALONE VAGINA CLINISYNCNOMS HealthcareRECURRENT VAGINITIS (HTRX)on 17-08-6320SAMRJTVHW VAGINAE 22.509AbnormalNOMS HealthcareATOPOBIUM VAGINAEDetectedAbnormalNOMS Healthcare BVAB 2,3 (BACTERIAL VAGINOSIS ASSOCIATED BACTERIA 2, 3); MOBILUNCUS SPP12.456 AbnormalNOMS HealthcareBVAB 2,3 (BACTERIAL VAGINOSIS ASSOCIATED BACTERIA 2, 3); MOBILUNCUS SPPDetectedAbnormalNOMS HealthcareCANDIDA ALBICANS, PARAPSILOSIS, SGADAIAGOU0ZHEH HealthcareCANDIDA ALBICANS, PARAPSILOSIS, TROPICALISNot detected NOMS HealthcareCANDIDA ODEYAVYP4RWZB HealthcareCANDIDA GLABRATANot detectedNOMS HealthcareCANDIDA MVWSAL2ALSJ HealthcareCANDIDA KRUSEINot detectedNOMS HealthcareCHLAMYDIA YQZMWHPVARA7QNYJ HealthcareCHLAMYDIA TRACHOMATISNot detected NOMS HealthcareERMB, C; MEFA20.08AbnormalNOMS HealthcareERMB, C; MEFADetected AbnormalNOMS HealthcareGARDNERELLA JTAQYIHOT12.276AbnormalNOMS Healthcare GARDNERELLA VAGINALISDetectedAbnormalNOMS HealthcareInterpretation and review of laboratory resultsAbnormalNOMS HealthcareMEGASPHAERA (TYPES 1, 2)14.865Abnormal NOMS HealthcareMEGASPHAERA (TYPES 1, 2)DetectedAbnormalNOMS HealthcareMYCOPLASMA EEEPRRREGN0DDWO HealthcareMYCOPLASMA GENITALIUMNot detectedNOMS Healthcare NEISSERIA ICZRCSMFGAB9IFOO HealthcareNEISSERIA GONORRHOEAENot detectedNOMS HealthcareTET B, TET M21.826AbnormalNOMS HealthcareTET B, TET MDetectedAbnormal NOMS HealthcareTRICHOMONAS MNMOZCMEY78.787AbnormalNOMS HealthcareTRICHOMONAS VAGINALISDetectedAbnormalKindred HospitalNONY HealthcareUrinalysis macro (dipstick) panel (U)on 72-34-1325Mbgmkdgtq, UANegativeNegative - 4(70) +++ mg/dL NOMS HealthcareBlood, UANegativeNegative - 50 Mando/mcLNOMS HealthcareClarity, UA ClearNOMS HealthcareColor, UAYellowNOMS HealthcareGlucose, UANegativeNegative - 2000(110) ++++ mg/dLNONY HealthcareInterpretation and review of laboratory resultsAbnormalNONY HealthcareKetones, UANegativeNegative - 160(16) ++++ mg/dL NOMS HealthcareLeukocytes, UANegativeNegative - 500+++ Maddy/mcLNONY Healthcare Nitrite, UANegativeNegative - PositiveNOMS HealthcarepH, UA6.55 - 9NOMS HealthcareProtein, UANegativeNegative - 2000(20) ++++ mg/dLNONY HealthcareSpec Grav, UA1.021 - 1.03NONY HealthcareUrobilinogen, UA0.20.2 - 12 mg/dLNONY HealthcareNONY HealthcareBOX TESTon 64-84-0292WGL TEST SENT OUTUNITYNONY BjzeykeqclAPE1PEPTFWCQF UdtetcbkkfSUK052/23/2025NONY HealthcareUNITY BOX CLINISYNCNONY HealthcareUS OB TRANSVAGINALon 49-20-8746RT OB TRANSVAGINALEXAM: US OB TRANSVAGINAL HISTORY: Viability, low heart [...] II, MD, PHD at 12-Apr-2025 08:23:25 AM [facility]-[place] TeleradiologyNormalNot AvailableComment on above:Order Comment: US OB VIABILITY PLEASE PERFORM TRANSVAGINAL ULTRASOUND IF INDICATED Patient's last menstrual period was 02/11/2025.HCG ( test) Ql (U)on 79-87-5367Sxtmqrnqibwbff and review of laboratory resultsAbnormalNONY Healthcare Preg Test, UrPositiveNegativeNOHeartland Behavioral Health ServicesNONY HealthcareUS OB TRANSVAGINALon 52-33-8656VS OB TRANSVAGINALEXAM: US OB TRANSVAGINAL HISTORY: Dating. COMPARISON: None available. TECHNIQUE: Two-dimensional [...] II, MD, PHD at 31-Mar-2025 11:53:30 AM [facility]-[place] TeleradiologyNormalNot AvailableComment on above:Order Comment: US OB TRANSVAGINAL No LMP recorded.Urinalysis macro (dipstick) panel (U)on 23-71-9255Pmxxtnkmj, UA NegativeNegative - 4(70) +++ mg/dLNOMS HealthcareBlood, UAPositiveNegative - 50 Mando/mcLNOMS HealthcareComment on above:trace-intactClarity, UAClearNOMS HealthcareColor, UAYellowNOMS HealthcareGlucose, UANegativeNegative - 2000(110) ++++ mg/dLNOMS HealthcareInterpretation and review of laboratory resultsAbnormal NOMS HealthcareKetones, UANegativeNegative - 160(16) ++++ mg/dLNOMS Healthcare Leukocytes, UANegativeNegative - 500+++ Maddy/mcLNOMS HealthcareNitrite, UA NegativeNegative - PositiveNOMS HealthcarepH, UA5.55 - 9NOMS HealthcareProtein, UANegativeNegative - 2000(20) ++++ mg/dLNOMS HealthcareSpec Grav, UA1.0151 - 1.03NOMS HealthcareUrobilinogen, UA0.20.2 - 12 mg/dLNOMS HealthcareNOMS HealthcareUS PELVIC WITH TRANSVAGINALon 36-64-9324EA PELVIC WITH TRANSVAGINALUS PELVIC WITH TRANSVAGINAL HISTORY: Pelvic pain COMPARISON: 12/12/2022 TECHNIQUE: Multiplanar transabdominal and transvaginal ultrasonography of the pelvis using grayscale imaging, supplemented by color Doppler as needed. FINDINGS: The uterus measures 7.5 x 2.6 x 3.9 cm. Normal contour without focal lesions. Endometrialstripe measures 6 mm in thickness which is [...] by Jodi Parmar MD on 01/20/2024 11:58 PMNormalDayton Children's HospitalCytologyon 59-41-7150VyrankivWafsfgKemDkwamh Fremont HospitalComment on above:Result Comment: [facility] [address] [place] [address] Gynecologic Cytology Consultation Patient Name:SOFIA ANDREWS:2000 (Age: 23)Gender:FTaken:01/13/2024eported:01/27/2024hysician(s):Tiburcio Crawford DO ([phone])Copy To: Rec. #:[id number]: #[id number] Final Cytologic Interpretation ThinPrep Pap Test (Cervical): Satisfactory for evaluation. A transformation zone component is present. NEGATIVE FOR INTRAEPITHELIAL LESION OR MALIGNANCY. jja/01/27/2024 Interpretation performed at [facility], [address] [place] [address], License number: [id number]. Electronically Signed Out By CELSO Major(ASCP) Date of Last Menstrual Period: 01/08/24 Other Clinical Conditions: Z01.419 Polisher Implant exam wo/abn findings Source of Specimen ThinPrep Pap Test (Cervical) Thin Prep Pap (AIR POLLUTION ENGINEER) Fee Code(s): Y2835Ytkssyt Recordson 76-66-6881Hgxpmlc Records [id number]#1.00OTGTIFFMetroHealth Parma Medical CenterCOVID + FLU Quick Testingon 31-04-5614HJOT-CoV-2 (COVID-19) RNA HUMBERTO+probe Ql (Unsp spec)NegativeNobates county memorial hospital [employer] Other COVID + FLU Quick TestingNegativeNort [employer] Other Outside Recordson 55-68-8918Wblycgm Records [id number]#1.00OTUniversity Hospitals Health SystemXR knee LT 4V*on 94-78-8182SE knee LT 4V*[facility] Main [address] [address] XRay Report Signed Patient: Sofia Andrews MR#: [id number] : 2000 Acct:[id number] Age/Sex: 22 / F ADM Date: 09/24/23 Loc: ER Room: Type: [facility] ER Attending Dr: Copies to: Alton [...] Curiel Jr., D.OHawk09/24/2023 9:27 AM Dictation Location: [facility]15 Transcribed By: [facility] 09/24/23926 Dictated By: Pablo Curiel Jr, DO 09/24/23926 Signed By: 09/24/23 0927[facility] Children's HospitalOutside Recordson 02-19-2023 Outside [id number]#1.00OTAvita Health System Ontario HospitalOutside Records [id number]#1.00[facility] Outside [id number]#1.00[facility] HospitalOutside Recordson 44-47-9447Mzyvumi Records [id number]#1.00[facility] Activated partial thromboplastin time (aPTT) in platelet poor plasma by coagulation aOrdered By: Joseph Wallace on 58-68-1366fQSV Coag (PPP) [Time] 30.5 s25.1-36.5FCleveland Clinic Medina HospitalAlanine aminotransferase [Enzymatic activity/volume] in Serum or PlasmaOrdered By: Joseph Wallace on 52-12-3438WUC [Catalytic activity/Vol]16 U/L7-52Sam[facility] Health CenterAlbumin [Mass/volume] in Serum or Plasma by Bromocresol green (BCG) dye binding methoOrdered By: Joseph Wallace on 77-36-7078Eegsfpk BCG dye [Mass/Vol]4.4 g/dL3.5-5.7FCleveland Clinic Medina HospitalAlkaline phosphatase [Enzymatic activity/volume] in Serum or PlasmaOrdered By: Joseph Wallace on 82-09-0757QJF [Catalytic activity/Vol]77 U/R42-275UmxvaumzcSamaritan North Health CenterAmphetamine Screen Ql (U)Ordered By: Joseph Wallace on 01-09-2023 Amphetamines Ql (U)NegativeNegativeSamaritan North Health CenterAspartate aminotransferase [Enzymatic activity/volume] in Serum or PlasmaOrdered By: Joseph Wallace on 00-06-4417MCN [Catalytic activity/Vol]16 U/U76-03ZlkksrwhzSamaritan North Health CenterAutomated erythrocytes count in urine sediment (number/area)Ordered By: Joseph Wallace on 76-89-7373GJD Auto (Urine sed) [#/Area]10-19 [HPF]0-4FCleveland Clinic Medina HospitalAutomated leukocytes count in urine sediment (number/area)Ordered By: Joseph Wallace on 01-09-2023 WBC Auto (Urine sed) [#/Area]0-1 [HPF]0-4FCleveland Clinic Medina Hospital Barbiturates [Presence] in Urine by Screen methodOrdered By: Joseph Wallace on 89-54-9572Aycpwmygdudn Screen Ql (U)NegativeNegativeSamaritan North Health CenterBasic Metabolic Panelon 70-39-5915Fgunt gap [Moles/Vol]12.6 mmol/L Normal6.0-15.0Sam[facility] North Health CenterComment on above:Performed By: #### PT, HEPATIC, PTT, BMP, CBC, LIPASE #### [facility] [address] [place] [address] USACalcium [Mass/Vol]8.9 mg/dLNormal8.6-10.3FCleveland Clinic Medina HospitalComment on above:Performed By: #### PT, HEPATIC, PTT, BMP, CBC, LIPASE #### [facility] [address] [place] [address] USAChloride [Moles/Vol]107 mmol/PAtltlw78-212JnrythmboSamaritan North Health CenterComment on above:Performed By: #### PT, HEPATIC, PTT, BMP, CBC, LIPASE #### [facility] [address] [place] [address] USACO2 [Moles/Vol]25.3 mmol/TMbzgtd53.0-31.0Sam[facility] Health CenterComment on above:Performed By: #### PT, HEPATIC, PTT, BMP, CBC, LIPASE #### [place] [address] USACreatinine [Mass/Vol]0.57 mg/dLLow0.60-1.20Sam[facility] Health CenterComment on above:Performed By: #### PT, HEPATIC, PTT, BMP, CBC, LIPASE #### [place] [address] USACreatinine Clr Calc Wofzbxhi311.51NoalSamaritan North Health CenterComment on above:Performed By: #### PT, HEPATIC, PTT, BMP, CBC, LIPASE #### [place] [address] USAGFR/1.73 sq M.predicted MDRD (S/P/Bld) [Vol rate/Area] mL/min/{1.73_m2}NormalSamaritan North Health CenterComment on above: Performed By: #### PT, HEPATIC, PTT, BMP, CBC, LIPASE #### [place] [address] USAGlucose [Mass/Vol]85 mg/bOWzvsfd50-658AigocaojfSamaritan North Health CenterComment on above:Result Comment: Random Glucose Reference Range is dependent on time and content of last meal. Glucose of more than 200 mg/dL in a nonstressed, ambulatory subject supports the diagnosis of Diabetes Mellitus. ADA recommended reference rangePerformed By: #### PT, HEPATIC, PTT, BMP, CBC, LIPASE #### [facility] [address] [place] [address] USAPotassium [Moles/Vol]3.9 mmol/LNormal3.5-5.1FCleveland Clinic Medina HospitalComment on above:Performed By: #### PT, HEPATIC, PTT, BMP, CBC, LIPASE #### [facility] [address] [place] [address] USASodium [Moles/Vol]141 mmol/BXuqndp172-101WxjizkxhhSamaritan North Health CenterComment on above:Performed By: #### PT, HEPATIC, PTT, BMP, CBC, LIPASE #### [facility] [address] [place] [address] USAUrea nitrogen [Mass/Vol]12 mg/dLNormal7-25Sam[facility] North Health CenterComment on above:Performed By: #### PT, HEPATIC, PTT, BMP, CBC, LIPASE #### [facility] [address] [place] [address] USABasophils Auto (Bld) [#/Vol]Ordered By: Joseph Wallace on 32-81-1958Jbeyndxps (Bld) [#/Vol]0.1 10*3/uL0.0-0.2FCleveland Clinic Medina HospitalBasophils/100 WBC Auto (Bld)Ordered By: Joseph Wallace on 01-09-2023 Basophils/100 WBC (Bld)0.6 %.Sam[facility] Health CenterBenzodiazepines Screen Ql (U)Ordered By: Joseph Wallace on 53-77-2060Ioywxagtdzsggxh Ql (U) PositiveNegativeSamaritan North Health CenterBenzoylecgonine [Presence] in Urine by Screen methodOrdered By: Joseph Wallace on 43-64-5623Zsivczewaltlwrx Screen Ql (U)PositiveNegativeSamaritan North Health CenterBilirubin Test strip Ql (U)Ordered By: Joseph Wallace on 31-96-5800Tuvtjhfvw Ql (U)Negative NegativeSamaritan North Health CenterBilirubin.direct [Mass/volume] in Serum or PlasmaOrdered By: Joseph Wallace on 72-24-4893Cyinmyipm.direct [Mass/Vol] 0.10 mg/dL0.03-0.18FCleveland Clinic Medina HospitalBilirubin.total [Mass/volume] in Serum or PlasmaOrdered By: Joseph Wallace on 01-09-2023 Bilirubin [Mass/Vol]0.5 mg/dL0.3-1.0Sam[facility] Health CenterCBC AUTO DIFFon 01-99-5526UACL #0.1 103/ulNormal0.0-0.1The [facility] County HospitalComment on above:Performed By: #### CBC #### [facility] [address] [address] [address] Cristopher GodoyBasophils/100 WBC (Bld)0.6 %Normal0.2-2.0[facility] Comment on above:Performed By: #### CBC #### [facility] [address] [address] [address] Cristopher Boone #0.4 103/ulNormal0.0-0.7The [facility] HospitalComment on above: Performed By: #### CBC #### [facility] [address] [place] [address] Dr. Cristopher Mcphersonosinophils/100 WBC (Bld)2.7 %Normal0.9-7.0[facility] Comment on above:Performed By: #### CBC #### [facility] [address] [address] [address] Cristopher Mcphersonrythrocyte distribution width (RBC) [Ratio]13.5 %Irvvle87.0-15.0 The [facility] HospitalComment on above:Performed By: #### CBC #### [facility] [address] [place] [address] Dr. Cristopher GodoyHematocrit (Bld) [Volume fraction]42.2 %Reapyq63.0-48.0The [facility] HospitalComment on above:Performed By: #### CBC #### [facility] [address] [place] [address] Dr. Cristopher GodoyHemoglobin (Bld) [Mass/Vol]14.1 g/xYIthksu92.0-16.0The [facility] HospitalComment on above:Performed By: #### CBC #### [facility] [address] [place] [address] Dr. Cristopher Santa #0.06 10e3/ulCritically high0.00-0.03The [facility] Comment on above:Performed By: #### CBC #### [facility] [address] [place] [address] Dr. Cristopher Santa %0.4 %Normal0.0-0.5The [facility] HospitalComment on above: Performed By: #### CBC #### [facility] [address] [place] [address] Dr. Cristopher Gurrola #3.8 103/ulNormal1.2-3.8The [facility] HospitalComment on above:Performed By: #### CBC #### [facility] [address] [place] [address] Dr. Cristopher Soctthocytes/100 WBC (Bld)24.7 %Fmfdmq43.5-60.0The [facility] HospitalComment on above:Performed By: #### CBC #### [facility] [address] [place] [address] Dr. Cristopher EricksonUAL DIFF REQNONormalThe [facility] HospitalComment on above: Performed By: #### CBC #### [facility] [address] [place] [address] Dr. Cristopher Benjamin (RBC) [Entitic mass]30.5 jdWuckex65.7-34.0The [facility] HospitalComment on above:Performed By: #### CBC #### [facility] [address] [place] [address] Dr. Cristopher Benjamin (RBC) [Mass/Vol]33.4 g/qKCoeicn64.9-35.2The [facility] HospitalComment on above:Performed By: #### CBC #### [facility] [address] [place] [address] Dr. Cristopher Bender (RBC) [Entitic vol]91.3 sWOdhcof45.0-99.0The [facility] HospitalComment on above:Performed By: #### CBC #### [facility] [address] [place] [address] Dr. Cristopher Gomez #0.9 103/ulCritically high0.3-0.8The [facility] Comment on above:Performed By: #### CBC #### [facility] [address] [place] [address] Dr. Cristopher Oroscoocytes/100 WBC (Bld)5.9 %Normal1.7-12.0The [facility] Comment on above:Performed By: #### CBC #### [facility] [address] [place] [address] Dr. Cristopher Christianson #10.0 103/ulCritically high1.4-6.5The [facility] Comment on above:Performed By: #### CBC #### [facility] [address] [place] [address] Dr. Cristopher Bobbyutrophils/100 WBC (Bld)65.7 %Buwxgv81.0-75.0The [facility] HospitalComment on above:Performed By: #### CBC #### [facility] [address] [place] [address] Dr. Cristopher Polklet mean volume (Bld) [Entitic vol]10.8 fLNormal9.5-13.5The [facility] HospitalComment on above:Performed By: #### CBC #### [facility] [address] [place] [address] Dr. Cristopher GodoyPLT338 103/tfEozlyi499-973Cxd [facility] HospitalComment on above: Performed By: #### CBC #### [facility] [address] [place] [address] Dr. Cristopher GodoyRBC4.62 106/ulNormal4.20-5.40The [facility] HospitalComment on above:Performed By: #### CBC #### [facility] [address] [place] [address] [address] [address] Cristopher GodoyWBC15.3 103/ulCritically high4.0-11.0The [facility] HospitalComment on above:Performed By: #### CBC #### [facility] [id number] Cristopher GodoyCT ABD/PELV W CONon 16-93-8976GP ABD/PELV W CONEXAMINATION: CT ABD/PELV W CON HISTORY: GENERALIZED ABDOMINAL PAIN COMPARISON: [...] Electronically authenticated by: SHERI ESCUDERO Date: 2023-01-09 04:[address] [place], [place] [address]Calcium [Mass/volume] in Serum or PlasmaOrdered By: Joseph Wallace on 77-70-3012Qooksqz [Mass/Vol]8.9 mg/dL8.6-10.3FCleveland Clinic Medina HospitalCannabinoids [Presence] in Urine by Screen methodOrdered By: Joseph Stat[facility] on 97-04-5069Iefkgvnubobk Screen Ql (U)PositiveNegative [facility] CenterComment on above:These are unconfirmed results and should not be used for legal purposes. Drug Cut-Off Concentration: AMPH 1000 ng/mL ISAURO 200 ng/mL YULY 200 ng/mL COCM 300 ng/mL OP 300 ng/mL PCP 25 ng/mL THC 20 ng/mLCarbon dioxide, total [Moles/volume] in Serum or PlasmaOrdered By: Joseph Wallace on 37-36-8026VO5 [Moles/Vol]25.3 mmol/L21.0-31.0[facility] Health CenterChloride [Moles/volume] in Serum or PlasmaOrdered By: Joseph Wallace on 15-47-0311Qvwqzjow [Moles/Vol]107 mmol/T23-711KlptixvajSamaritan North Health CenterColor Auto (U)Ordered By: Joseph Wallace on 01-09-2023 Color (U)YellowYellowSamaritan North Health CenterComplete Blood Count Auto Diffon 82-63-8425Bdksbxtrf (Bld) [#/Vol]0.1 10*3/uLNormal0.0-0.2FCleveland Clinic Medina HospitalComment on above:Result Comment: PERFORMED BY: [place] [address] PATHOLOGIST PHOTO MASK PROCESSOR LUCRECIA NG M.D.Performed By: #### PT, HEPATIC, PTT, BMP, CBC, LIPASE #### [place] [address] USABasophils/100 WBC (Bld)0.6 %Normal.[facility] Health CenterComment on above:Performed By: #### PT, HEPATIC, PTT, BMP, CBC, LIPASE #### [place] [address] USAEosinophils (Bld) [#/Vol]0.6 10*3/uLHigh0.0-0.45[facility] CenterComment on above:Performed By: #### PT, HEPATIC, PTT, BMP, CBC, LIPASE #### [place] [address] USAEosinophils/100 WBC (Bld)5.4 %Normal.[facility] Health CenterComment on above:Performed By: #### PT, HEPATIC, PTT, BMP, CBC, LIPASE #### [place] [address] USAErythrocyte distribution width (RBC) [Ratio]14.2 %Normal 11.9-15.3FCleveland Clinic Medina HospitalComment on above:Performed By: #### PT, HEPATIC, PTT, BMP, CBC, LIPASE #### [place] [address] USAHematocrit (Bld) [Volume fraction]43.2 %Jmkpcm79.0-46.4 [facility] CenterComment on above:Performed By: #### PT, HEPATIC, PTT, BMP, CBC, LIPASE #### [place] [address] USAHemoglobin (Bld) [Mass/Vol]14.1 g/tFWqmhzs60.8-15.4 [facility] CenterComment on above:Performed By: #### PT, HEPATIC, PTT, BMP, CBC, LIPASE #### [place] [address] USALymphocytes (Bld) [#/Vol]3.3 10*3/uLNormal1.00-4.8 [facility] CenterComment on above:Performed By: #### PT, HEPATIC, PTT, BMP, CBC, LIPASE #### [place] [address] USALymphocytes/100 WBC (Bld)28.7 %Normal.[facility] Health CenterComment on above:Performed By: #### PT, HEPATIC, PTT, BMP, CBC, LIPASE #### [address] (RBC) [Entitic mass]30.1 nvWvttwj11.7-34.3FCleveland Clinic Medina HospitalComment on above:Performed By: #### PT, HEPATIC, PTT, BMP, CBC, LIPASE #### [address] (RBC) [Entitic vol]92.6 iKGgkfwl68-421WzkepoxadSamaritan North Health CenterComment on above:Performed By: #### PT, HEPATIC, PTT, BMP, CBC, LIPASE #### [place] [address] USAMean Corpuscular HGB Conc32.6 g/mVOrkrts89.0-35.0[facility] CenterComment on above:Performed By: #### PT, HEPATIC, PTT, BMP, CBC, LIPASE #### [place] [address] USAMonocytes (Bld) [#/Vol]0.8 10*3/uLNormal0.0-0.8[facility] CenterComment on above:Performed By: #### PT, HEPATIC, PTT, BMP, CBC, LIPASE #### [place] [address] USAMonocytes/100 WBC (Bld)16.00 %Normal0.00-20.00[facility] CenterComment on above:Performed By: #### PT, HEPATIC, PTT, BMP, CBC, LIPASE #### [place] [address] USAMonocytes/100 WBC (Bld)6.8 %Normal.[facility] Health CenterComment on above:Performed By: #### PT, HEPATIC, PTT, BMP, CBC, LIPASE #### [address] [place] [address] USANeutrophils (Bld) [#/Vol]6.7 10*3/uLNormal1.8-7.7FCleveland Clinic Medina HospitalComment on above:Performed By: #### PT, HEPATIC, PTT, BMP, CBC, LIPASE #### [facility] [address] [place] [address] USANeutrophils/100 WBC (Bld)58.5 %Normal.[facility] Health CenterComment on above:Performed By: #### PT, HEPATIC, PTT, BMP, CBC, LIPASE #### [facility] [address] [place] [address] USANRBC%0.1 /100{WBC}Normal0-0.5FCleveland Clinic Medina HospitalComment on above:Performed By: #### PT, HEPATIC, PTT, BMP, CBC, LIPASE #### [place] [address] USAPlatelet mean volume (Bld) [Entitic vol]9.8 fLNormal 6.3-10.7FCleveland Clinic Medina HospitalComment on above:Performed By: #### PT, HEPATIC, PTT, BMP, CBC, LIPASE #### [facility] [address] [place] [address] USAPlatelets (Bld) [#/Vol]314 10*3/nYXtkmlb046-675IipctogunSamaritan North Health CenterComment on above:Performed By: #### PT, HEPATIC, PTT, BMP, CBC, LIPASE #### [place] [address] USARBC (Bld) [#/Vol]4.67 10*6/uLNormal3.60-5.00[facility] Health CenterComment on above:Performed By: #### PT, HEPATIC, PTT, BMP, CBC, LIPASE #### [place] [address] USAWBC (Bld) [#/Vol]11.5 10*3/uLNormal3.8-11.6FCleveland Clinic Medina HospitalComment on above:Performed By: #### PT, HEPATIC, PTT, BMP, CBC, LIPASE #### [facility] [address] [place] [address] USACreatinine [Mass/volume] in Serum or PlasmaOrdered By: Joseph Wallace on 45-08-9075Wojdorcwqc [Mass/Vol]0.57 mg/dL0.60-1.20[facility] Health CenterDipstick and Microscopicon 94-34-9763Marjnyfvlx (U)Clear NormalClearFCleveland Clinic Medina HospitalComment on above:Order Comment: Name Collection Type:: Clean-Voided MidstreamPerformed By: #### URDS, ADDONUAPLUS, UHCG #### [facility] [address] [place] [address] USABacteria,UrineNone SeenNormalNone [facility] Campus Medical CenterComment on above:Order Comment: Name Collection Type:: Clean- Voided MidstreamPerformed By: #### URDS, ADDONUAPLUS, UHCG #### [facility] [address] [place] [address] USABilirubin,UrineNegativeNormalNegativeSamaritan North Health CenterComcorewell health [facility] on above:Order Comment: Name Collection Type:: Clean- Voided MidstreamPerformed By: #### URDS, ADDONUAPLUS, UHCG #### [facility] [address] [place], [place] [id number] USAColor (U)YellowNormalYellowSamaritan North Health CenterComment on above:Order Comment: Name Collection Type:: Clean-Voided MidstreamPerformed By: #### URDS, ADDONUAPLUS, UHCG #### [facility] [address] [place], [place] [id number] USAGlucose Ql (U)NormalNormalNormalSamaritan North Health CenterComment on above:Order Comment: Name Collection Type:: Clean-Voided MidstreamPerformed By: #### URDS, ADDONUAPLUS, UHCG #### [facility] [address] [place], [place] [address] USAHyaline Casts,UrineNone SeenNormal0-8[facility] Health CenterComment on above:Order Comment: Name Collection Type:: Clean- Voided MidstreamPerformed By: #### URDS, ADDONUAPLUS, UHCG #### [facility] [address] [place] [address] USAKetones Ql (U)NegativeNormalNegACMC Healthcare SystemComment on above:Order Comment: Name Collection Type:: Clean- Voided MidstreamPerformed By: #### URDS, ADDONUAPLUS, UHCG #### [place] [address] USALeukocyte esterase Test strip Ql (U)NegativeNormalNegative [facility] CenterComment on above:Order Comment: Name Collection Type:: Clean-Voided MidstreamPerformed By: #### URDS, ADDONUAPLUS, UHCG #### [place] [address] USANitrite,UrineNegativeNormcaNegACMC Healthcare SystemComment on above:Order Comment: Name Collection Type:: Clean- Voided MidstreamPerformed By: #### URDS, ADDONUAPLUS, UHCG #### [place] [address] USAOccult Blood,Urine1+HighNegACMC Healthcare SystemComment on above:Order Comment: Name Collection Type:: Clean-Voided MidstreamPerformed By: #### URDS, ADDONUAPLUS, UHCG #### [facility] [address] [place] [address] USApH (U)5.5 [pH]Normal5.0-9.0[facility] Health CenterComment on above:Order Comment: Name Collection Type:: Clean-Voided MidstreamPerformed By: #### URDS, ADDONUAPLUS, UHCG #### [place] [address] USAProtein,UrineNegativeNormalNegACMC Healthcare SystemComment on above:Order Comment: Name Collection Type:: Clean- Voided MidstreamPerformed By: #### URDS, ADDONUAPLUS, UHCG #### [facility] [address] [place] [address] USARBC,Vuztk40-60Xabx7-7RialxijbsCleveland Clinic Medina Hospital Comment on above:Order Comment: Name Collection Type:: Clean-Voided Midstream Performed By: #### URDS, ADDONUAPLUS, UHCG #### [place] [address] USASpecificy Rochelle,Urine1.139Fbfnyx1.001-1.030[facility] Health CenterComment on above:Order Comment: Name Collection Type:: Clean-Voided MidstreamPerformed By: #### URDS, ADDONUAPLUS, UHCG #### [place] [address] USASquamous Epithelial Cell,Pggwl1-7Vxqcio8-5NhqcmohpyCleveland Clinic Medina HospitalComment on above:Order Comment: Name Collection Type:: Clean-Voided MidstreamPerformed By: #### URDS, ADDONUAPLUS, UHCG #### [place] [address] USAUrobilinogen,UrineNormalNormalNormalSamaritan North Health CenterComment on above:Order Comment: Name Collection Type:: Clean- Voided MidstreamPerformed By: #### URDS, ADDONUAPLUS, UHCG #### [place] [address] USAWBC LM.HPF (Urine sed) [#/Area]0 /[HPF]Normal0-4FCleveland Clinic Medina HospitalComment on above:Order Comment: Name Collection Type:: Clean-Voided MidstreamPerformed By: #### URDS, ADDONUAPLUS, UHCG #### [place] [address] USADrug Screen,Urineon 34-05-6525Ghbovhpfnkb Screen,Urine NegativeNormalNegativeSamaritan North Health CenterComment on above: Performed By: #### PT, HEPATIC, PTT, BMP, CBC, LIPASE #### [place] [address] USABarbiturate Screen,UrineNegativeNormalNegativeSamaritan North Health CenterComment on above:Performed By: #### PT, HEPATIC, PTT, BMP, CBC, LIPASE #### [place] [address] USABenzodiazepines Screen,UrinePositiveHighNegACMC Healthcare SystemComment on above:Performed By: #### PT, HEPATIC, PTT, BMP, CBC, LIPASE #### [place] [address] USACannabinoid Screen,UrinePositiveHighNegACMC Healthcare SystemComcorewell health [facility] st[facility] hospital on above:Result Comment: These are unconfirmed results and should not be used for legal purposes. Drug Cut-Off Concentration: AMPH 1000 ng/mL ISAURO 200 ng/mL YULY 200 ng/mL COCM 300 ng/mL OP 300 ng/mL PCP 25 ng/mL THC 20 ng/mL PERFORMED BY: [place] [address] PATHOLOGIST PHOTO MASK PROCESSOR LUCRECIA NG M.D.Performed By: #### PT, HEPATIC, PTT, BMP, CBC, LIPASE #### [place] [address] USACocaine Screen,UrinePositiveHighNegACMC Healthcare SystemComcorewell health [facility] on above:Performed By: #### PT, HEPATIC, PTT, BMP, CBC, LIPASE #### [place] [address] USAOpiate Screen,UrinePositiveHighNegACMC Healthcare SystemComment on above:Performed By: #### PT, HEPATIC, PTT, BMP, CBC, LIPASE #### [place] [address] USAPhencyclidine Screen,UrineNegativeNormalNegativeSamaritan North Health CenterComment on above:Performed By: #### PT, HEPATIC, PTT, BMP, CBC, LIPASE #### [place] [address] USAER URINE PROFILEon 08-58-0716Lyuwrevsj Ql (U)Negative NormalNEGATIVEMercy Health Tiffin HospitalComment on above:Performed By: #### ERUR, UMICRO #### [facility] [address] [address] [address] Cristopher Vegaarity (U)CLEARNormalCLEARMercy Health Tiffin HospitalComment on above: Performed By: #### ROLY UMICRO #### [facility] [address] [address] [address] Cristopher Apple (U)LT. YELLOWNormalYELLOWMercy Health Tiffin HospitalComment on above:Performed By: #### ROLY UMICRO #### [facility] [address] [address] [address] Cristopher Osorio micrscopic examination will be performed if indicated. NormalMercy Health Tiffin HospitalComment on above:Performed By: #### ROLY UMICRO #### [facility] [address] [address] [address] Cristopher GodoyGlucose Ql (U)NegativeNormalNEGATIVEMercy Health Tiffin HospitalComment on above:Performed By: #### ROLY UMICRO #### [facility] [address] [address] [address] Cristopher GodoyHemoglobin Ql (U)LARGEAbnormalNEGATIVECommunity Regional Medical Center on above:Performed By: #### ROLY UMICRO #### [facility] [address] [address] [address] Cristopher GodoyKetones Ql (U)NegativeNormalNEGATIVEMercy Health Tiffin HospitalComment on above:Performed By: #### ROLY UMICRO #### [facility] [address] [address] [address] Cristopher GodoyLEUKOCYTESNegativeNormalNEGATIVEMercy Health Tiffin HospitalComcorewell health [facility] st[facility] hospital on above:Performed By: #### ROLY UMICRO #### [facility] [address] [address] [address] Cristopher GodoyNitrite Ql (U)NegativeNormalNEGATIVEMercy Health Tiffin HospitalComment on above:Performed By: #### ROLY UMICRO #### [facility] [address] [address] [address] Cristopher Green (U)6.0 [pH]Normal5-9The [facility] County HospitalComment on above: Performed By: #### VEENA DUNHAM #### [facility] [address] [address] [address] Cristopher GodoySPEC GRAVITY1.176Tbomzg7.005-<=1.025The [facility] HospitalComment on above:Performed By: #### VEENA DUNHAM #### [facility] [address] [address] [address] Cristopher Tillman PROTEINNegativeNormalNEGATIVE/ TRACEThe [facility] Comment on above:Performed By: #### VEENA DUNHAM #### [facility] [address] [address] [address] Cristopher Frederick MICRO INDINDICATEDNormalThe [facility] HospitalComment on above: Performed By: #### VEENA DUNHAM #### [facility] [address] [address] [address] Cristopher Allisonbilinogen Qn (U)0.2 {Kevin'U}/dLNormal0.2 - 1.0The [facility] HospitalComment on above:Performed By: #### DEWAYNE DUNHAMRO #### [facility] [address] [place] [address] Dr. Nicholas ChangEosinophils Auto (Bld) [#/Vol]Ordered By: Joseph Wallace on 65-02-4762Skbtcmqrmap (Bld) [#/Vol]0.6 10*3/uL0.0-0.45[facility] CenterEosinophils/100 WBC Auto (Bld)Ordered By: Joseph Wallace on 01-09-2023 Eosinophils/100 WBC (Bld)5.4 %.[facility] Health CenterErythrocyte distribution width Auto (RBC) [Ratio]Ordered By: Joseph Wallace on 01-09-2023 Erythrocyte distribution width (RBC) [Ratio]14.2 %11.9-15.3FCleveland Clinic Medina HospitalGlobulin Calc (S) [Mass/Vol]Ordered By: Joseph Wallace on 94-61-1550Ejnuiouj (S) [Mass/Vol]2.7 g/dLSamaritan North Health Center Glucose [Mass/volume] in Serum or PlasmaOrdered By: Joseph Wallace on 69-12-5446Mqjsjku [Mass/Vol]85 mg/jM35-084HklutwdxfSamaritan North Health Center Comment on above:ADA recommended reference rangeRandom Glucose Reference Range is dependent on time and content of last meal. Glucose of more than 200 mg/dL in a nonstressed, ambulatory subject supports the diagnosisof Diabetes Mellitus. HCG ( test) IA.rapid Ql (U)Ordered By: Joseph Wallace on 01-09-2023 HCG ( test) Ql (U)NegativeSamaritan North Health CenterHCG,Urineon 15-56-9783Zxfo HCG ( test) Ql (U)NegativeNormalSamaritan North Health CenterComment on above:Order Comment: Name Collection Type:: Clean- Voided MidstreamResult Comment: PERFORMED BY: [place] [address] PATHOLOGIST PHOTO MASK PROCESSOR LUCRECIA NG M.D.Performed By: #### URDS, ADDONUAPLUS, [facility] MED[facility] CENTERG #### [facility] [address] [place] [address] USAHematocrit Auto (Bld) [Volume fraction]Ordered By: Joseph Wallace on 87-07-9274Jzcxvtssvj (Bld) [Volume fraction]43.2 %34.0-46.4 [facility] CenterHemoglobin [Mass/volume] in BloodOrdered By: Joseph Wallace on 65-64-7743Wpozfcnfrp (Bld) [Mass/Vol]14.1 g/dL11.8-15.4 [facility] CenterHepatic Panelon 99-99-9594Rorhwcj [Mass/Vol]4.4 g/dLNormal3.5-5.7FCleveland Clinic Medina HospitalComment on above:Performed By: #### PT, HEPATIC, PTT, BMP, CBC, LIPASE #### [facility] [address] [place] [address] USAAlbumin/Globulin [Mass ratio]1.6 {ratio}NormalSamaritan North Health CenterComment on above:Performed By: #### PT, HEPATIC, PTT, BMP, CBC, LIPASE #### [place] [address] USAALP [Catalytic activity/Vol]77 U/RJiyiek74-507CqsvibyhkSamaritan North Health CenterComment on above:Performed By: #### PT, HEPATIC, PTT, BMP, CBC, LIPASE #### [facility] [address] [place] [address] USAALT [Catalytic activity/Vol]16 U/LNormal7-52[facility] CenterComment on above:Performed By: #### PT, HEPATIC, PTT, BMP, CBC, LIPASE #### [place] [address] USAAST [Catalytic activity/Vol]16 U/FKwrhge82-91UqnzhphqmSamaritan North Health CenterComment on above:Performed By: #### PT, HEPATIC, PTT, BMP, CBC, LIPASE #### [place] [address] USABilirubin [Mass/Vol]0.5 mg/dLNormal0.3-1.0[facility] CenterComment on above:Performed By: #### PT, HEPATIC, PTT, BMP, CBC, LIPASE #### [place] [address] USABilirubin,Indirect0.4 mg/dLNormGrand Lake Joint Township District Memorial HospitalComment on above:Performed By: #### PT, HEPATIC, PTT, BMP, CBC, LIPASE #### [place] [address] USABilirubin.indirect [Mass/Vol]0.10 mg/dLNormal0.03-0.18 [facility] CenterComment on above:Performed By: #### PT, HEPATIC, PTT, BMP, CBC, LIPASE #### [place] [address] USAGlobulin (S) [Mass/Vol]2.7 g/dLNoWilson HealthComment on above:Performed By: #### PT, HEPATIC, PTT, BMP, CBC, LIPASE #### [facility] [address] [place] [address] USAProtein [Mass/Vol]7.1 g/dLNormal6.4-8.9[facility] CenterComment on above:Performed By: #### PT, HEPATIC, PTT, BMP, CBC, LIPASE #### [facility] [address] [place] [address] USAKetones Auto test strip (U) [Mass/Vol]Ordered By: Joseph Wallace on 21-19-7051Ghhbowe (U) [Mass/Vol]NegativeNegativeSamaritan North Health CenterLaboratory - Chemistry and Chemistry - challengeOrdered By: Joseph Wallace on 74-33-9745BIV/1.73 sq M.predicted MDRD (S/P/Bld) [Vol rate/Area]mL/min/{1.73_m2}[facility] CenterLaboratory - CoagulationOrdered By: Joseph Wallace on 71-78-9489TU Coag (PPP) [Time]10.4 s 9.0-12.9[facility] CenterLaboratory - UrinalysisOrdered By: Joseph Wallace on 58-60-5795Rieyhvy casts LM Ql (Urine sed)None seen [LPF]0-8 [facility] CenterLeukocytes [#/volume] corrected for nucleated erythrocytes in Blood by Automated counOrdered By: Joseph Wallace on 87-86-2197WTN corrected for nucl RBC Auto (Bld) [#/Vol]11.5 10*3/uL3.8-11.6 [facility] CenterLipaseon 81-71-3407Jxhayz [Catalytic activity/Vol]12.0 U/ENoxvwu44.0-82.0[facility] CenterComment on above:Result Comment: PERFORMED BY: [place] [address] PATHOLOGIST PHOTO MASK PROCESSOR LUCRECIA NG M.D.Performed By: #### PT, HEPATIC, PTT, BMP, CBC, LIPASE #### [facility] [address] [place], [place] [address] USALipase [Enzymatic activity/volume] in Serum or Plasma Ordered By: Joseph Wallace on 99-49-8960Qpsofp [Catalytic activity/Vol]12.0 U/L11.0-82.0[facility] CenterLymphocytes Auto (Bld) [#/Vol] Ordered By: Joseph Wallace on 08-14-3705Hevpjiumcpi (Bld) [#/Vol]3.3 10*3/uL 1.00-4.8[facility] CenterLymphocytes/100 WBC Auto (Bld)Ordered By: Joseph Wallace on 30-67-1965Kdgjvhiadxu/100 WBC (Bld)28.7 %.[facility] Auto (RBC) [Entitic mass]Ordered By: Joseph Wallace on 66-58-9707YBL (RBC) [Entitic mass]30.1 pg24.7-34.3FSycamore Medical CenterHC Auto (RBC) [Mass/Vol]Ordered By: Joseph Wallace on 57-94-9266ZLHL (RBC) [Mass/Vol]32.6 g/dL32.0-35.0[facility] CenterMCV Auto (RBC) [Entitic vol]Ordered By: Joseph Wallace on 88-62-1013LZA (RBC) [Entitic vol]92.6 vO26-136KjqbwoefgSamaritan North Health CenterMonocyte distribution width [Entitic volume] in Blood by AutomatedOrdered By: Joseph Wallace on 21-78-5494Qvfbdunt distribution width Auto (Bld) [Entitic vol]16.00 % 0.00-20.00[facility] CenterMonocytes Auto (Bld) [#/Vol]Ordered By: Joseph Wallace on 41-14-9583Umtzzhbpi (Bld) [#/Vol]0.8 10*3/uL0.0-0.8 [facility] CenterMonocytes/100 WBC Auto (Bld)Ordered By: Joseph Wallace on 39-25-1564Ncncfqjqb/100 WBC (Bld)6.8 %.[facility] CenterNeutrophils Auto (Bld) [#/Vol]Ordered By: Joseph Wallace on 02-12-4296Jnrzjsvrihj (Bld) [#/Vol]6.7 10*3/uL1.8-7.7FCleveland Clinic Medina HospitalNeutrophils/100 WBC Auto (Bld)Ordered By: Joseph Wallace on 01-09-2023 Neutrophils/100 WBC (Bld)58.5 %.[facility] CenterNitrite Test strip Ql (U)Ordered By: Joseph Wallace on 70-38-6511Zmijqao Ql (U)Negative NegativeSamaritan North Health CenterNo Panel InformationOrdered By: Joseph Wallace on 42-60-6025Igbiyzqq Creatinine Clearance (Gfkc901.51 [facility] CenterNucleated erythrocytes [Presence] in Blood by Automated countOrdered By: Joseph Wallace on 65-06-3473Xqnsqnumb RBC Auto Ql (Bld)0.1 /100{WBC}0-0.5FCleveland Clinic Medina HospitalOpiates [Presence] in Urine by Screen methodOrdered By: Joseph Wallace on 45-20-6574Ngvmycu Screen Ql (U)PositiveNegativeSamaritan North Health CenterPREG HCG QUALon 45-91-7945AKTNCBIDJ, QUALNegativeNormalNEGATIVEMercy Health Tiffin HospitalComment on above:Performed By: #### PREG #### [facility] [address] [address] [address] Cristopher GodoyPROF CHEM 8 (BAS METB)on 60-24-2078Huksy gap [Moles/Vol]10.6 mmol/LNormalMercy Health Tiffin HospitalComment on above:Performed By: #### BMP #### [facility] [address] [address] [address] Cristopher GodoyCalcium [Mass/Vol]8.7 mg/dLNormal8.5-10.1[facility] Comment on above:Performed By: #### BMP #### [facility] [address] [address] [address] Cristopher GodoyChloride [Moles/Vol]103 mmol/HLueled15-005Yck [facility] Comment on above:Performed By: #### BMP #### [facility] [address] [address] [address] Cristopher GodoyCO2 [Moles/Vol]28.0 mmol/XItypyk93.0-32.0The [facility] Comment on above:Performed By: #### BMP #### [facility] [address] [address] [address] Cristopher GodoyCreatinine [Mass/Vol]0.62 mg/dLNormal0.55-1.02The [facility] HospitalComment on above:Performed By: #### BMP #### [facility] [address] [address] [address] Cristopher McphersonGFR-AF SAMMARINESE>60Normal>=60The [facility] HospitalComment on above:Performed By: #### BMP #### [facility] [address] [address] [address] Cristopher McphersonGFR-NON AF SAMMARINESE>60Normal>=60The [facility] HospitalComment on above:Performed By: #### BMP #### [facility] [address] [address] [address] Cristopher GodoyGlucose [Mass/Vol]128 mg/dLCritically qqmg27-321Nak [facility] HospitalComment on above:Performed By: #### BMP #### [facility] [address] [address] [address] Cristopher GodoyPotassium [Moles/Vol]3.6 mmol/LNormal3.5-5.1The [facility] Comment on above:Performed By: #### BMP #### [facility] [address] [address] [address] Cristopher GodoySodium [Moles/Vol]138 mmol/XEtfwxu646-433Iid [facility] Comment on above:Performed By: #### BMP #### [facility] [address] [address] [address] Cristopher GodoyUrea nitrogen [Mass/Vol]13.0 mg/dLNormal7.0-18.0The [facility] HospitalComment on above:Performed By: #### BMP #### [facility] [address] [address] [address] Cristopher GodoyUrea nitrogen/Creatinine [Mass ratio]21.0 mg/mgNormalThe [facility] HospitalComment on above:Performed By: #### BMP #### [facility] [address] [address] [address] Cristopher Stantonial Thromboplastin Timeon 31-70-9822rEKP Coag (Bld) [Time] 30.5 pQvmkqe44.1-36.5FCleveland Clinic Medina HospitalComment on above:Result Comment: PERFORMED BY: [facility] [address] [place] [address] PATHOLOGIST PHOTO MASK PROCESSOR LUCRECIA NG M.D.Performed By: #### PT, HEPATIC, PTT, BMP, CBC, LIPASE #### [facility] [address] [place] [address] USAPhencyclidine Screen Ql (U)Ordered By: Joseph Wallace on 18-76-3179Orxpmuttykpjf Ql (U)NegativeNegativeSamaritan North Health CenterPlatelet mean volume Auto (Bld) [Entitic vol]Ordered By: Joseph Wallace on 81-55-7884Aauxoybq mean volume (Bld) [Entitic vol]9.8 fL6.3-10.7FCleveland Clinic Medina HospitalPlatelet poor plasma international normalized ratio (INR) by coagulation assay (relatOrdered By: Joseph Wallace on 54-48-4076LPA Coag (PPP) [Relative time]0.9 {INR}[facility] CenterComment on above: INR Therapeutic Range A) Pre- and Peroperative OAT started two weeks before surgery. NOT HIP SURGERY: 1.5 - 2.5 HIP SURGERY: 2 - 3B) Primary and secondary prevention of venous THROMBOSIS: 2 - 3C) Active venous thrombosis, pulmonary embolismand prevention of recurrent venous thrombosis: 2 - 3D) Prevention of arterial thromboembolismincluding patients with mechanical heart valves: 3 - 4.5 Platelets Auto (Bld) [#/Vol]Ordered By: Joseph Wallace on 1578Ydsklhwvr (Bld) [#/Vol]314 10*3/tD027-459VyaookjonSamaritan North Health CenterPotassium [Moles/volume] in Serum or PlasmaOrdered By: Joseph Wallace on 01-09-2023 Potassium [Moles/Vol]3.9 mmol/L3.5-5.1FCleveland Clinic Medina HospitalProtein Auto test strip (U) [Mass/Vol]Ordered By: Joseph Wallace on 95-12-2491Mgdbcns (U) [Mass/Vol]NegativeNegativeSamaritan North Health CenterProtein [Mass/volume] in Serum or PlasmaOrdered By: Joseph Wallace on 01-09-2023 Protein [Mass/Vol]7.1 g/dL6.4-8.9[facility] Health CenterProthrombin Time INRon 82-57-2573ACR Coag (PPP) [Relative time]0.9 {INR}NormalSamaritan North Health CenterComment on above:Result Comment: INR Therapeutic Range A) Pre- and [...] patients with mechanical heart valves: 3 - 4.5Performed By: #### PT, HEPATIC, PTT, BMP, CBC, LIPASE #### [facility] [address] [place] [address] USAPT Coag (PPP) [Time]10.4 sNormal9.0-12.9Samaritan North Health CenterComment on above:Performed By: #### PT, HEPATIC, PTT, BMP, CBC, LIPASE #### [facility] [address] [place] [address] USARBC Auto (Bld) [#/Vol]Ordered By: Joseph Wallace on 83-14-1290MIP (Bld) [#/Vol]4.67 10*6/uL3.60-5.00[facility] East Campuserum or plasma albumin/globulin mass ratioOrdered By: Joseph Wallace on 14-13-6267Xtzkmxc/Globulin [Mass ratio]1.6 {ratio}[facility] Campuserum or plasma anion gap determinationOrdered By: Joseph Wallace on 23-51-3182Pgego gap [Moles/Vol]12.6 mmol/L6.0-15.0[facility] Campuserum or plasma non-glucuronidated bilirubin measurement (mass/volume) Ordered By: Joseph Wallace on 34-18-0767Mnabzfzoe.indirect [Mass/Vol]0.4 mg/dLTrinity Health System East Campusodium [Moles/volume] in Serum or Plasma Ordered By: Joseph Wallace on 15-09-7141Gabtyq [Moles/Vol]141 mmol/W323-187 [facility] Campuspecific gravity Auto test strip (U) [Rel density]Ordered By: Joseph Wallace on 93-62-8652Tlggxeyj gravity (U) [Rel density]1.0271.001-1.030[facility] Campusquamous epithelial cells detection in urine sediment by light microscopyOrdered By: Joseph Wallace on 84-57-8460Kbofcdctqe cells.squamous LM Ql (Urine sed)0-1 [HPF]0-2 [facility] Health CenterURINE MICROSCOPIC ONLYon 89-21-7314RZRNZMKZGFGF SEENNormalNONE SEENThe [facility] HospitalComment on above:Performed By: #### ERUR, UMICRO #### [facility] [address] [place] [address] Dr. Cristopher Hastings identified Cx Nom (U)NOT INDICATEDNormalThAshtabula General HospitalComment on above:Performed By: #### ERUR, UMICRO #### [facility] [address] [place] [address] Dr. Cristopher Camejo SEENNormalNONE SEENMercy Health Tiffin HospitalComcorewell health lak[facility] hospitals [facility] on above:Performed By: #### ERUR, UMICRO #### [facility] [address] [place] [address] [address] Cristopher Francis LM Nom (Urine sed)NONE SEENNormalNONE SEENMercy Health Tiffin HospitalComment on above:Performed By: #### ERUR, UMICRO #### [facility] [address] [address] [address] Nicholas ChangEpithelial cells LM Ql (Urine sed)FEWAbnormalNONE SEEN /RAREMercy Health Tiffin HospitalComcorewell health lak[facility] hospitals st[facility] hospital on above:Performed By: #### ERUR, UMICRO #### [facility] [address] [address] [address] Cristopher CarmonaUSBETHANIE SEENNormalNONE SEENMercy Health Tiffin HospitalComcorewell health [facility] st[facility] hospital on above:Performed By: #### ERUR, UMICRO #### [facility] [address] [place] [address] [address] Cristopher GodoyHkoxsPOW3-37Rfsmrnay5-9Yqs [facility] HospitalComment on above:Performed By: #### JDR, UMICRO #### [facility] [address] [address] [address] Cristopher GodoyWBC0-2AbnormalNONE SEENThe [facility] HospitalComment on above: Performed By: #### ERUR, UMICRO #### [facility] [address] [place] [address] [address] Cristopher GodoyUS transvaginalon 11-60-1358IB transvaginalTHE [facility]ST [facility] [address] [place] [address] Ultrasound Report Signed Patient: Sofia Andrews MR#: [id number] : 2000 Acct:[id number] Age/Sex: 22 / F ADM Date: 01/09/23 Loc: ER Room: Type: [facility] ER Attending Dr: Ordering Provider: Joseph Wallace DO Date of Service: 01/09/23 US/US pelvic complete: ABDOMINAL PAIN ([id number]) US/US transvaginal: PAIN Copies to: Joseph Wallace [...] Chelsea Ceja M.D.01/09/2023 2:27 PM Dictation Location: [place] [address] Tech: Marian Kelly Transcribed By: CHAZ 01/09/23 142 Dictated By: Chelsea Ceja MD 01/09/23 1344 Signed By: 01/09/237[facility] Children's HospitalUrea nitrogen [Mass/volume] in Serum or PlasmaOrdered By: Joseph Wallace on 60-41-6001Deye nitrogen [Mass/Vol]12 mg/dL7-[facility] Health CenterUrine bacteria detection by automated methodOrdered By: Joseph Wallace on 85-03-6628Tokrkmqa Auto Ql (U)None seenNone SeenSamaritan North Health CenterUrine clarity by refractometry automatedOrdered By: Joseph Wallace on 30-67-0477Iigxkef Refractometry automated (U)ClearCleProvidence HospitalUrine glucose measurement by automated test strip (mass/volume)Ordered By: Joseph Wallace on 12-78-2220Jvrhmif Auto test strip (U) [Mass/Vol]Normal mg/dLKindred HealthcareUrine hemoglobin detection by automated test stripOrdered By: Joseph Wallace on 63-45-7785Uzamyzojfl Auto test strip Ql (U)1+NegativeSamaritan North Health CenterUrine leukocyte esterase detection by automated test stripOrdered By: Joseph Wallace on 06-79-1391Tvajfhxce esterase Auto test strip Ql (U)NegativeNegativeSamaritan North Health Center Urobilinogen Auto test strip (U) [Mass/Vol]Ordered By: Joseph Wallace on 12-69-7081Egqtaxkkxhis (U) [Mass/Vol]Normal mg/dLNormalSamaritan North Health CenterWBC Auto (Bld) [#/Vol]Ordered By: Joseph Wallace on 01-09-2023 WBC (Bld) [#/Vol]11.5 10*3/uL3.8-11.6FCleveland Clinic Medina HospitalpH Auto test strip (U)Ordered By: Joseph Wallace on 42-44-1889fQ (U)5.5 [pH]5.0-9.0 [facility] Health CenterCBC AUTO DIFFon 31-97-5176PDJK #0.1 103/ul Normal0.0-0.1The [facility] County HospitalComment on above:Performed By: #### CBC #### [facility] [address] [address] [address] Cristopher GodoyBasophils/100 WBC (Bld)0.6 %Normal0.2-2.0The [facility] Comment on above:Performed By: #### CBC #### [facility] [address] [address] [address] Cristopher Boone #0.6 103/ulNormal0.0-0.7The [facility] HospitalComment on above: Performed By: #### CBC #### [facility] [address] [address] [address] Cristopher Mcphersonosinophils/100 WBC (Bld)5.7 %Normal0.9-7.0The [facility] Comment on above:Performed By: #### CBC #### [facility] [address] [address] [address] Cristopher Mcphersonrythrocyte distribution width (RBC) [Ratio]13.6 %Pyetpg61.0-15.0 The [facility] HospitalComment on above:Performed By: #### CBC #### [facility] [address] [address] [address] Cristopher Simmonsatocrit (Bld) [Volume fraction]46.7 %Rtzwai68.0-48.0The [facility] HospitalComment on above:Performed By: #### CBC #### [facility] [address] [place] [address] Dr. Cristopher GodoyHemoglobin (Bld) [Mass/Vol]15.2 g/dOJwadjd62.0-16.0The [facility] HospitalComment on above:Performed By: #### CBC #### [facility] [address] [place] [address] Dr. Cristopher Santa #0.03 10e3/ulNormal0.00-0.03The [facility] HospitalComment on above:Performed By: #### CBC #### [facility] [address] [place] [address] Dr. Cristopher Santa %0.3 %Normal0.0-0.5The [facility] HospitalComment on above: Performed By: #### CBC #### [facility] [address] [place] [address] Dr. Cristopher Gurrola #3.3 103/ulNormal1.2-3.8The [facility] HospitalComment on above:Performed By: #### CBC #### [facility] [address] [place] [address] Dr. Cristopher Olmedomphocytes/100 WBC (Bld)29.2 %Wmrjnk22.5-60.0The [facility] HospitalComment on above:Performed By: #### CBC #### [facility] [address] [place] [address] Dr. Cristopher EricksonUAL DIFF REQNONormalThe [facility] HospitalComment on above: Performed By: #### CBC #### [facility] [address] [place] [address] Dr. Cristopher Morales (RBC) [Entitic mass]29.9 xvLvggoj58.7-34.0The [facility] HospitalComment on above:Performed By: #### CBC #### [facility] [address] [address] [address] Cristopher BenjaminHC (RBC) [Mass/Vol]32.5 g/wBMiujry51.9-35.2The [facility] HospitalComment on above:Performed By: #### CBC #### [facility] [address] [place] [address] Dr. Cristopher BenjaminV (RBC) [Entitic vol]91.9 vQPbjvme75.0-99.0The [facility] HospitalComment on above:Performed By: #### CBC #### [facility] [address] [place] [address] Dr. Cristopher Gomez #0.7 103/ulNormal0.3-0.8The [facility] HospitalComment on above:Performed By: #### CBC #### [facility] [address] [place] [address] Dr. Cristopher Oroscoocytes/100 WBC (Bld)6.3 %Normal1.7-12.0The [facility] Comment on above:Performed By: #### CBC #### [facility] [address] [place] [address] Dr. Cristopher Christianson #6.5 103/ulNormal1.4-6.5The [facility] HospitalComment on above:Performed By: #### CBC #### [facility] [address] [place] [address] Dr. Cristopher Bobbyutrophils/100 WBC (Bld)57.9 %Niycfo67.0-75.0The [facility] HospitalComment on above:Performed By: #### CBC #### [facility] [address] [place] [address] Dr. Cristopher Polklet mean volume (Bld) [Entitic vol]11.1 fLNormal9.5-13.5The [facility] HospitalComment on above:Performed By: #### CBC #### [facility] [address] [place] [address] Dr. Cristopher GodoyPLT360 103/jkJsglbp017-296GbzMercy Health Tiffin HospitalComment on above: Performed By: #### CBC #### [facility] [address] [address] [address] Cristopher GodoyRBC5.08 106/ulNormal4.20-5.40The [facility] HospitalComcorewell health l[facility] hospitals st[facility] hospital on above:Performed By: #### CBC #### [facility] [address] [address] [address] Cristopher GodoyWBC11.2 103/ulCritically high4.0-11.0The [facility] HospitalComcorewell health l[facility] hospital on above:Performed By: #### CBC #### [facility] [address] [address] [address] Cristopher Renner URINE PROFILEon 81-75-0251Ubncufmjq Ql (U)NegativeNormal NEGATIVEMercy Health Tiffin HospitalComcorewell health [facility] hospital on above:Performed By: #### JD CURIELR ####[facility] [address] [place], [place]Dr. Yilan ChangClarity (U)CLEARNormalCLEARMercy Health Tiffin HospitalComcorewell health [facility] st[facility] hospital on above: Performed By: #### ROLY CURIEL ####[facility] [address] [place], [place]Dr. Cristopher ChangColor (U)LT. YELLOWNormalYELLOWMercy Health Tiffin HospitalComcorewell health [facility] st[facility] hospital on above:Performed By: #### JD CURIELR ####[facility] [address] [place] [id number]. Cristopher Everett A micrscopic examination will be performed if indicated.NormalThe [facility] County HospitalComment on above:Performed By: #### JD CURIELR ####[facility] [address] [place] [address]Dr. Cristopher ChangGlucose Ql (U) NegativeNormalNEGATIVEMercy Health Tiffin HospitalComment on above:Performed By: #### VEENA ERUR ####[facility] [address] [place] [address]Dr. Cristopher ChangHemoglobin Ql (U)SMALLAbnormalNEGATIVEMercy Health Tiffin Hospital Comment on above:Performed By: #### JD CURIELR ####[facility] [address] [place], [place]Dr. Cristopher GodoyKetones Ql (U) NegativeNormalNEGATIVEThe [facility] Diego HospitalComment on above:Performed By: #### JD CURIELR ####[facility] [address] [place], [place] [address]Ho. Cristopher GodoyLEUKOCYTESNegativeNormalNEGATIVEOhiohealth Mansfield Hospital HospitalComment on above:Performed By: #### JD CURIELR ####[facility] [address] [place], [place]Dr. Cristopher GodoyNitrite Ql (U)NegativeNormal NEGATIVEOhiohealth Mansfield Hospital HospitalComment on above:Performed By: #### JD CURIELR ####[facility] [address] [place] [address]Dr. Cristopher GodoypH (U)6.0 [pH]Normal5-9Mercy Health Tiffin HospitalComment on above: Performed By: #### ROLY CURIEL ####[facility] [address] [place] [address]Dr. Cristopher GodoySPEC GRAVITY<=1.186Jvyumrse9.005-<=1.025 The [facility] HospitalComment on above:Performed By: #### JD CURIELR ####[facility] [address] [place] [address]Dr. Cristopher GodoyUA PROTEINNegativeNormalNEGATIVE/ TRACEThe [facility] Diego HospitalComment on above:Performed By: #### JD CURIELR ####[facility] [address] [place] [address]Dr. Cristopher GodoyUR MICRO INDINDICATEDNormalThe [facility] HospitalComment on above:Performed By: #### JD CURIELR ####[facility] [address] [place] [address]Dr. Cristopher Godoy Urobilinogen Qn (U)0.2 {Kevin'U}/dLNormal0.2 - 1.0The [facility] HospitalComment on above:Performed By: #### ROLY CURIEL ####[facility] [address]uf[address] [place], [place]Dr. Yilan ChangPREG HCG QUALon 01-05-2023 , QUALNegativeNormalNEGATIVEThe [facility] HospitalComment on above: Performed By: #### PREG #### [facility] [address] [place] [address] [address] Cristopher GodoyPROF CHEM 8 (BAS METB)on 85-08-1826Kybkj gap [Moles/Vol]15.3 mmol/LNormalThe [facility] HospitalComment on above:Performed By: #### BMP ####[facility] [address] [place] [address]Dr. Dayanaralan ChangCalcium [Mass/Vol]9.8 mg/dLNormal8.5-10.1The [facility] HospitalComment on above:Performed By: #### BMP ####[facility] [address] [place] [address]Dr.Yilan ChangChloride [Moles/Vol]106 mmol/LNormal 98-107The [facility] HospitalComment on above:Performed By: #### BMP ####[facility] [address] [place] [address]Dr.Yilan ChangCO2 [Moles/Vol]25.2 mmol/AUacxnp48.0-32.0The [facility] HospitalComment on above: Performed By: #### BMP ####[facility] [address] [place] [address]Dr.Yilan ChangCreatinine [Mass/Vol]0.58 mg/dLNormal 0.55-1.02The [facility] HospitalComment on above:Performed By: #### BMP ####[facility] [address] [place] [address]Dr. Yilan ChangEGFR-AF SAMMARINESE>60Normal>=60The [facility] HospitalComment on above: Performed By: #### BMP ####[facility] [address] [place] [address]Dr.Yilan ChangEGFR-NON AF SAMMARINESE>60Normal>=60The [facility] HospitalComment on above:Performed By: #### BMP ####[facility] [address] [place] [address]Dr.Yilan ChangGlucose [Mass/Vol]89 mg/eGSmmveq89-624Xgd [facility] HospitalComment on above:Performed By: #### BMP ####[facility] [address] [place], [place] [address]Dr.Yilan ChangPotassium [Moles/Vol]4.5 mmol/LNormal3.5-5.1The [facility] HospitalComment on above:Performed By: #### BMP ####[facility] [address] [place], [place] [address]Dr.Yilan ChangSodium [Moles/Vol]142 mmol/QDfplaa316-858Lbz [facility] HospitalComment on above: Performed By: #### BMP ####[facility] [address] [place], [place] [address]Dr.Yilan ChangUrea nitrogen [Mass/Vol]12.0 mg/dLNormal 7.0-18.0The [facility] HospitalComment on above:Performed By: #### BMP ####[facility] Z[address]wl[address] [place], [place] [address]Dr. Yilan ChangUrea nitrogen/Creatinine [Mass ratio]20.7 mg/mgNormalThAshtabula General HospitalComment on above:Performed By: #### BMP ####[facility] [address]em[address] [place], [place] [address]Dr.Yilan ChangURINE MICROSCOPIC ONLYon 00-61-7262TUPGJHBXBLLE SEENNormalNONE SEENThe [facility] HospitalComment on above:Performed By: #### VEENA ERUR ####[facility] [address] [place], [place] [address]Dr. Yilan ChangBacteria identified Cx Nom (U)NOT INDICATEDNormSouthern [place] Medical CenterComment on above: Performed By: #### VEENA ERUR ####[facility] [address] [place] [address]Dr. Cristopher ChangCASTNONE SEENNormalNONE SEENThe [facility] HospitalComment on above:Performed By: #### VEENA, ERUR ####[facility] [address] [place] [id number]. Cristopher ChangCrystals LM Nom (Urine sed)NONE SEENNormalNONE SEENThe [facility] HospitalComment on above: Performed By: #### VEENA, ERUR ####[facility] [address] [place] [address]Dr. Cristopher ChangEpithelial cells LM Ql (Urine sed) MODERATEAbnormalNONE SEEN /RAREThe [facility] HospitalComment on above:Performed By: #### VEENA ERUR ####[facility] [address] [place] [address]Dr. Cristopher GodoyMUCOUSTRACEAbnormalNONE SEENThe [facility] HospitalComcorewell health [facility] on above:Performed By: #### JD CURIELR ####[facility] [address] [place] [address]Dr. Cristopher GodoyRBC2-5Abnormal 0-2The [facility] HospitalComcorewell health [facility] on above:Performed By: #### JD CURIELR ####[facility] [address] [place] [id number]. Cristopher ChangWBCNONE SEENNormalNONE SEENThe [facility] HospitalComcorewell health [facility] hospital on above: Performed By: #### VEENA ERUR ####[facility] [address] [place] [id number]. Cristopher GodoyUS PELVIS TRANSVAGon 34-13-6344SE PELVIS TRANSVAGEXAMINATION: US PELVIS TRANSVAG HISTORY: Pain COMPARISON: No relevant comparison [...] Electronically authenticated by: GABBY CHARLES Date: 2023-01-05 10:03NoCleveland Clinic Mercy Hospital HospitalPost Op (Breast Surgery)on 48-96-6968Fktu Op (Breast Surgery)No report was sentNormalUH TouchworksCORONAVIRUS 2019, SCREEN ASYMPTOMATICon 52-66-4111MATN-CoV-2 (COVID-19) RNA HUMBERTO+probe Ql (Unsp spec)Not detectedNormal Not DetectedCare One at Raritan Bay Medical CenterComment on above:Result Comment: . This assay is designed to [...] patient management decisions. Fact sheet for providers: https://www.fda.gov/media/982957/download Fact sheet for patients: https://www.fda.gov/media/383096/download This test has received FDA Emergency Use Authorization (EUA) and has been verified by [facility] ([facility]). This test is only authorized for the duration of time that circumstances exist to justify the authorization of the emergency use of in vitro diagnostic tests for the detection of SARS-CoV-2 virus and/or diagnosis of COVID-19 infection under section 564(b)(1) of the Act, 21 U.S.C. 360bbb-3(b)(1), unless the authorization is terminated or revoked sooner. [facility] is certified under CLIA-88 as qualified to perform high complexity testing. Testing is performed in the [facility] laboratories located at [id number] [place] [address].Performed By: #### COVSC #### [facility] [address] [facility], [place] [address]Tdvyq 19 Resultson 81-02-3833ZXLV-CoV-2 (COVID-19) RNA HUMBERTO+probe Ql (Unsp spec)NEGATIVE COVID-19 Test Coronaviruses are common world-wide and [...] be contacted by the [facility] to see if any of [...] or Naproxen (Aleve) can also be used. Lycu-mpb-mgcdhhy cough and cold medicines can be used according to the instructions on the package. Some khcr-quu-zitdwfz medicines also contain acetaminophen. Make sure you [...] water are not available, use alcohol-based hand dietitian therapeutic. Avoid touching your eyes, nose, and mouth [...] gone for 24 shaquille (more content not included)...NormalCare One at Raritan Bay Medical CenterNo Panel Informationon 04-25-2022 [facility] Work Phone: Operative Reports - CMCon 29-65-3809Pssglojgs Reports - CMCPREOPERATIVE DIAGNOSIS: Chronically infected sebaceous cyst, right chest. POSTOPERATIVE DIAGNOSIS: Chronically infected sebaceous cyst, right chest. OPERATION/PROCEDURE: Excision of sebaceous cyst, right chest, 5 x 2 cm area. SURGEON: Juan Taylor MD. RESIDENTIAL ENERGY AUDITOR(S): Geraldine, PGY-1. ANESTHESIA: General and 0.5% Marcaine. [...] Juan Taylor MD EST EST DICTATION NUMBER: [id number] INTERNAL JOB NUMBER: [id number] CC: UNKNOWN UNKNOWN Juan Taylor MD Electronic Signatures: Juan Taylor) (Signed on 05-May-2022 13:45) Authored Unsigned, Draft (SYS GENERATED) (Entered on 25-Apr-2022 13:48) Entered Last Updated: 05-May-2022 13:45 by Juan Taylor)[facility] HospitalOrder Reconciliationon [id number] ReconciliationPage 1 Discharge Reconciliation Document Reconciliation Type: Discharge [...] be shared with your follow-up providers (doctor, product finisher, physical therapist, etc.). doxycycline hyclate 100 mg [...] increased temperature greater t (more content not included)...[facility] HospitalPatient Profile - Preop v3on 91-56-9928Jabsrfn Profile - Preop v3 Patient Profile - Preop: Initial Info: Patient DemographicsName: SOFIA WIGGINS Date: 2000 Address: [address] [place] [address], [place] [address] Primary Phone [phone] How to be AddressedNicolette Spoken Language PreferredEnglish Source of Informationpatient Stated Reason for AdmissionR breast cyst removal Primary Contact Name and NumberTom Andrews (manan) [phone] Limitations on Visitors/Phone Callsnone Medications Brought to Hospitalno General Health: Patient or Family Member Reaction to Anesthesiano previous reaction Blood Avoidance/Restrictionsnone Previous Transfusion Reactionnot applicable Health Mgmt: Symptoms/Conditions Managed at Homerespiratory Are You no Are You Currently Breastfeedingno Respiratory Symptoms/Conditionsasthma Respiratory Management Strategiesmedication therapy; routine screening Barriers to Managing Healthnone Relationship/Environ: Lives Withspouse Living Arrangementshouse Resource/Environmental Concernsnone Anticipated Transition [place] [facility] Anticipated at Transitionnone Tobacco Use: Tobacco Useyes Tobacco Typecigarettes Last Tobacco Dqt04-Qui-3021 Number of Packs per Day1 Number of yrs6 Pack yrs6 Pre-op Checklist: Arrival Cqur75-Euf-9965 Arrival Time08:08 Procedure Typebreast biospy NPOyes Last Food Fbcjbe40-Iyt-4729 00:00 Last Clear Fluid Gqfolo01-Ypj-1805 00:00 ID Band On Patientpatient ID (name), [...] Information Last Updated: 25-Apr-2022 08:09 by Saumya Crane)[facility] Surgical Pathology Departmenton 25-02-3828XTJ Surgical Pathology DepartmentName SOFIA WIGGINS Pathologist: ROGELIO LOCKETT III, D.O. Date of Procedure: 04/25/2022 Date Received: 04/25/2022 Date Reported 04/30/2022 Submitting Physician: JUAN TAYLOR MD [facility] External # FINAL DIAGNOSIS A. RIGHT SKIN CYST CHEST WALL, EXCISION: -- BENIGN EPIDERMAL CYST WITH ADJACENT FIBROSIS AND PATCHY CHRONIC INFLAMMATION. peb Electronically Signed Out By ROGELIO LOKCETT III, D.O./PEB By the signature on this report, the individual or group listed as making the Final Interpretation/Diagnosis certifies that they have reviewed this case. Diagnostic interpretation performed at [place] [address] Clinical History: Physician Contact Number: [id number] Ischemic Time (A): 09:40 Fixative (A): Formalin [...] measures 2 x 1.1 x 1 cm. Bindery Cutter Operator sections are submitted in one cassette. [facility] [address] [place], [place] [address]Comment on above:Performed By: #### UHCS #### [facility] Surgical Pathology Department [address] [place] [address] 77393ZLLJJIVVICF 2019, SCREEN ASYMPTOMATICon [id number] Specimen SourceNasal, NasopharyngealNoCentennial Peaks HospitalComment on above: Performed By: #### COVSC #### [address] [address]Giootabzgsd 2019 RNA by PCR, Screening Asymptomticon [id number] 2019 RNA by PCR, Screening AsymptomticNot detectedNormal See QeqzwUK-Gfvigra-JctohGettysburg Memorial Hospital Work Phone: Comment on above:SOURCE: Nasal, NasopharyngealReference Range: Not Detected.This assay is designed to detect the N, ORF1ab and/or S genes of SARS-CoV-2 via nucleic acid amplification. A Negative (NOT DETECTED) resultdoes not preclude 2019-nCoV infection since the adequacy of sample collection and/or low viral burden may result in presence of viral nucleic acids below the clinical sensitivity of this test method.Negative (NOT DETECTED) result should not be used as the sole basis for treatment or other patient management decisions. Rather negative results should be combined with clinical observations, patienthistory, and epidemiological information to make patient management decisions.Fact sheet for providers: https://www.fda.gov/media/683613/downloadFact sheet for patients: https://www.fda.gov/media/630321/downloadThis test has received FDA Emergency Use Authorization (EUA) and has been verified by [facility] ([facility]). This test is only authorized for the duration of time that circumstances exist to justify the authorization of the emergency use of in vitro diagnostic tests for the detection of SARS-CoV-2 virus and/or diagnosis of COVID-19 infection under section 564(b)(1) of the Act, 21 U.S.C. 360bbb-3(b)(1), unless the authorization is terminated or revoked sooner. [facility] is certified under CLIA-88 as qualified to perform high complexity testing. Testing is performed in the [facility] laboratories located at [address] [place] [address].Follow Up (Breast Surgery)on 04-10-2022 Follow Up (Breast Surgery)Diagnoses/Problems Assessed Infected sebaceous cyst (706.2) (L72.3,L08.9) Orders Infected sebaceous cyst Start: Doxycycline Hyclate 100 MG Oral Capsule; TAKE 1 CAPSULE EVERY 12 HOURS DAILY Rx By: Juan Taylor; Dispense: 14 Days ; #:28 Capsule; Refill: 1;For: Infected sebaceous cyst; CORINA= N; Verified Transmission to [facility]; Last Updated By: [employer] FitnessKeeper; 04/10/2022 10:01:38 AM Start: Ketorolac Tromethamine 10 MG Oral Tablet; TAKE 1 TABLET EVERY 6 HOURS WITH FOOD Rx By: Juan Taylor; Dispense: 5 Days ; #:20 Tablet; Refill: 0;For: Infected sebaceous cyst; CORINA =N; Verified Transmission to [employer] #14; Last Updated By: [employer] BufferBoxjimboBrenco; 04/10/2022 10:01:39 AM Start: traMADol HCl - 50 MG Oral Tablet; TAKE 1 TABLET EVERY 8 HOURS NEEDED Rx By: Juan Taylor; Dispense: 7 Days ; #:20 Tablet; Refill: 0;For: Infected sebaceous cyst; CORINA =N; Print Rx Patient Discussion/Summary The area is [...] I reviewed ORRS and no narcotics since December.The actual area does not look too inflamed. [...] excised. She has been receiving care at [facility]. She has had several IANDD's of the abscess with placement of pigtail catheter for amonth and /2 and antibiotic therapy. This started about 7 years ago with a small bump and was toldat that time it was just a cyst. [...] abscess, rest negative on 14 system review Polisher Implant history: Menarche age16. Nulliparous No use of [...] DAILY NEEDED oxyCODONE-Acetaminophen 5-325 MG Oral Tablet Sulfamethoxazole-Trimethoprim 800-160 MG Oral TabletTAKE 1 TABLET TWICE DAILY UNTIL FINISHED. Vitals L-Dex Vitals Recorded: 10Apr2022 09:14AM Iitulfrmzoz58.5 F Heart Rate99 Vyirpvso573 Xwupytavf48 Height4 ft 11 in Pvzsqo424 lb 4 oz BMI Jnuczmaopv72.18 kg/m2 BSA Calculated1.72 O2 Piivfphydp69 Physical Exam Area of the cyst is somewhat smaller can still express small amount of pus through a port in the skin. Mildly tender. Signatures Electronically signed by : Juan Taylor MD; Apr 10 2022 11:30AM EST (Author) NormalUH TouchworksCult, Misc + smearon 78-87-4846Satksgve identified Cx Nom (Unsp spec)[facility]K-[facility]wp[facility] Work Phone: Initial Visit (Breast Surgery)on 46-55-3180Cjuaaxt Visit (Breast Surgery)Diagnoses/Problems Assessed Infected sebaceous cyst (706.2) (L72.3,L08.9) Orders Infected sebaceous cyst Start: Sulfamethoxazole-Trimethoprim 800-160 MG Oral Tablet; TAKE 1 TABLET TWICE DAILY UNTIL FINISHED Rx By: Juan Taylor; Dispense: 14 Days ; #:28 Tablet; Refill: 1;For: Infected sebaceous cyst; CORINA = N; Verified Transmission to [facility] #14; Last Updated By: [employer] FitnessKeeper; 03/27/2022 10:41:36 AM Cult, Misc + smear; Status:Hold For - Specimen/Data Collection; Requested for:27Mar2022; Perform:Lab Services - Office to Draw (Non-Blood Test); Due:56Pqk3065;Ordered; For:Infected sebaceous cyst; Ordered By:Juan Taylor; Site [...] it heal in and then excise it. Shewould prefer to try to get the infection [...] excised. She has been receiving care at [facility]. She has had several IANDD's of the abscess with placement of pigtail catheter for amonth and /2 and antibiotic therapy. This started about 7 years ago with a small bump and was toldat that time it was just a cyst. Complains of pains in neck and back. She states she had a bedside ultrasound. We do not have those reports. Medical history: None Review of system: pain in neck and spine, pain at site of abscess, rest negative on 14 system review Polisher Implant history: Menarche age16. Nulliparous No use of [...] but no arthralgias, no myalgias and no muscleweakness. Integumentary: no rashes and no skin lesions. [...] AM Vitals L-Dex Vitals Recorded: 27Mar2022 09:51AM Kwzkldqczly83.7 F Heart Rate78 Beenalxg561 Egdyglttf48 Height4 ft 11 in Htigue694 lb 1 oz BMI Qyepqtsyhn61.16 kg/m2 BSA Calculated1.74 O2 Tedjhvitkm04 Physical Exam Constitutional - General appearance: In no acute distress, well appearing and well nourished. Neck - Exam: Appearance of the neck was normal. No neck masses observed. Thyroid Examination: Not enlarged and there were no palpable nodules. Pulmonary - Respiratory effort: Normal respiration. Auscultati (more content not included)...NormalUH TouchworksMISCELLANEOUS CULT./SM.BACT.on 03-27-2022 MISCELLANEOUS CULT./SM.BACT.PATIENT: SOFIA WIGGINS LOCATION: [facility] [place] BILL#: [id number] : 89 AGE: SEX: F ORDERED BY: JUAN TAYLOR SOURCE: WOUND/ABSCESS COLLECTED: 03/27/22 00:00 ANTIBIOTICS AT TIMOTHY.: RECEIVED : 03/27/22 17:02 SITE: R E S U L T S GRAM STAIN FINAL 03/27/22 19:21 NO GRANULOCYTES SEEN. 3+ GRAM VARIABLE COCCI MISCELLANEOUS CULT./SM.BACT. FINAL 03/31/22 12:04 1+ MIXED SKIN JIL 4+ ANAEROBIC MIXED BACTERIANoCentennial Peaks HospitalComment on above: Performed By: #### MISCC #### [facility] [address] [place], [place] [address]Fowwpe Summary.on 00-69-4223Njziwe Summary. CD:[id number]+PGhlYWQ+[id number] ZM9YBqeH1AmzaKc [file] c2U6 (more content not included)...NormalOhio State Harding HospitalAuto Diffon 81-49-1656Elljvvlga/100 WBC (Bld)0.9 %Normal0.0-2.0[facility] Comment on above:Order Comment: Order Added by Discern Expert.Performed By: #### 8867487, 7361333, 20160247, 45547875, 6713031 ####[facility] [address] [place], [place] [address]Sstavtmqd/Leukocytes Auto (Bld) [Pure # fraction]0.1 E9/LNormal0.0-0.2FCleveland Clinic Euclid HospitalComment on above: Order Comment: Order Added by Discern Expert.Performed By: #### 5267590, 8472410, 13284930, 48419946, 8913673 ####[facility] Lab [address] [place] [address]Dsquwietybe/100 WBC (Bld)7.0 %Normal 0.0-8.0[facility] Harding HospitalComment on above:Order Comment: Order Added by Discern Expert.Performed By: #### 1692445, 5795438, 55638618, 59060775, 7493889 ####[address] [address] Eosinophils/Leukocytes Auto (Bld) [Pure # fraction]0.6 E9/LHigh0.0-0.5FCleveland Clinic Euclid HospitalComment on above:Order Comment: Order Added by Discern Expert.Performed By: #### 5081037, 6823001, 92986917, 96150226, 7079698 ####[address] [address] Lymphocytes/100 WBC (Bld)33.5 %Gwoicp18.0-50.0[facility] Harding HospitalComment on above:Order Comment: Order Added by Discern Expert.Performed By: #### 8181728, 6724745, 98373784, 92254144, 7391472 ####[address] [address]Bughhjqwmrq/Leukocytes Auto (Bld) [Pure # fraction]2.9 E9/LNormal1.0-4.0[facility] Harding HospitalComment on above:Order Comment: Order Added by Discern Expert.Performed By: #### 9374429, 3530738, 55529785, 24334661, 7980099 ####[facility] Lab [address] [place], [place] [address]Lmsfffhms/100 WBC (Bld)8.4 %Normal 4.0-14.0[facility] Harding HospitalComment on above:Order Comment: Order Added by Discern Expert.Performed By: #### 0408549, 0295577, 40716220, 08847353, 2883197 ####[facility] [address] [place], [place] [address]Hljqnimik/Leukocytes Auto (Bld) [Pure # fraction]0.7 E9/LNormal0.2-1.0 [facility] Hard[facility] HospitalComment on above:Order Comment: Order Added by Discern Expert.Performed By: #### 6543314, 3561757, 08956103, 35127694, 2499377 ####[facility] [address] [place] [address] Neutrophils/100 WBC (Bld)50.2 %Ecjqrl17.0-75.0[facility] Harding HospitalComment on above:Order Comment: Order Added by Discern Expert.Performed By: #### 4818589, 9464671, 99532431, 85774844, 4501267 ####[facility] [address] [place], [place] [address]Kzoaqfxzkci/Leukocytes Auto (Bld) [Pure # fraction]4.3 E9/LNormal2.0-7.5FCleveland Clinic Euclid HospitalComment on above:Order Comment: Order Added by Discern Expert.Performed By: #### 3492247, 1549127, 96637999, 36219177, 4280305 ####[facility] [address] [place], [place] [address]WQL w/ Auto Diffon 09-87-6074Wuzwjfnatim distribution width (RBC) [Ratio]14.6 %High10.9-14.2FC[facility] Hospital Comment on above:Performed By: #### 8452561, 9352765, 73064941, 91614089, 9232512 ####[facility] [address] [place] [address]Lqacptdskb (Bld) [Volume fraction]45.5 %Qivanc06.0-46.0[facility] Hard[facility] HospitalComment on above:Performed By: #### 7126102, 7783464, 02233860, 45149411, 8139431 ####[facility] [address] [place] [address]Vvruhlywoc (Bld) [Mass/Vol]15.0 g/gUQgawgx39.0-16.0[facility] HospitalComment on above:Performed By: #### 8703964, 6598716, 86589994, 23872790, 9499544 ####[address] [address]VZA (RBC) [Entitic mass]29.6 cjWcucky17.0-34.0[facility] Comment on above:Performed By: #### 2599010, 0289662, 73693613, 10260774, 1019512 ####[address] [address]XSZY (RBC) [Mass/Vol]33.0 g/uNYiebzf61.4-36.0[facility] Comment on above:Performed By: #### 2500868, 8057711, 78375649, 24550325, 3732795 ####[address] [address]NNF (RBC) [Entitic vol]89.7 kROxcorx89.0-100.0[facility] Comment on above:Performed By: #### 1584345, 1865144, 14695503, 99485679, 5189092 ####[address] [address]Dcwdhwxg mean volume (Bld) [Entitic vol]10.5 fLNormal6.4-10.8[facility] Harding HospitalComment on above:Performed By: #### 0900030, 2589832, 40439149, 87028524, 3499382 ####[facility] [address] [place], [place] [address]Ihuirzcjo (Bld) [#/Vol]339.0 E9/UBjglki463.0-500.0[facility] Harding HospitalComment on above:Performed By: #### 0739534, 4529526, 73224507, 52396412, 9217015 ####[facility] [address] [place], [place] [address]TTW (Bld) [#/Vol]5.1 E12/LNormal4.3-5.9[facility] Harding HospitalComment on above:Performed By: #### 8544148, 1862749, 02264596, 98040068, 8223247 ####[facility] [address] [place], [place] [address]SKI corrected for nucl RBC Auto (Bld) [#/Vol]8.6 E9/LNormal 4.0-11.0[facility] Harding HospitalComment on above:Performed By: #### 2946401, 9761635, 82357895, 97316006, 7624131 ####[facility] [address] [place], [place] [address]BWHRWLTVDXcnnmun By: SYSTEM SYSTEM on 38-39-2849Uheyqsx [Mass/Vol]4.3 g/dLNormal3.3 - 5.0 gm/dLFTMC Remisol Albumin/Globulin [Mass ratio]1.2 {ratio}Normal1.1 - 2.2FT[facility] RemisolALP [Catalytic activity/Vol]80 [iU]/bRfymsi17 - 98 Int._Unit/LFTMC RemisolALT No additional P-5'-P [Catalytic activity/Vol]46 [iU]/dNormal6 - 46 Int._Unit/LFTMC RemisolAnion gap [Moles/Vol]12 mmol/LNormal6 - 16 mEq/LFTMC RemisolAST [Catalytic activity/Vol]37 [iU]/dNormal5 - 43 Int._Unit/LFTMC RemisolBilirubin [Mass/Vol]0.8 mg/dLNormal0.0 - 1.1 mg/dLFTMC RemisolCalcium [Mass/Vol]9.6 mg/dL Normal8.9 - 11.1 mg/dLFTMC RemisolChloride [Moles/Vol]105 mmol/GTqopyj098 - 111 mmol/LFTMC RemisolCO2 [Moles/Vol]27 mmol/RKabdpq13 - 31 mmol/LFTMC Remisol Creatinine [Mass/Vol]0.7 mg/dLNormal0.5 - 1.3 mg/dLFTMC RemisolGFR/1.73 sq M.predicted among blacks MDRD (S/P/Bld) [Vol rate/Area]mL/min/1.73 a4Fvwugr >=59mL/min/1.73 m2FTMC Chem SGFR/1.73 sq M.predicted among non-blacks MDRD (S/P/Bld) [Vol rate/Area]mL/min/1.73 e1Pxjrau>=59mL/min/1.73 m2FT Chem S Globulin (S) [Mass/Vol]3.6 g/dLNormal1.4 - 4.0 gm/dLFTMC RemisolGlucose [Mass/Vol]69 mg/uWOfrxfy68 - 199 mg/dLFTMC RemisolPotassium [Moles/Vol]3.9 mmol/LNormal3.5 - 5.3 mmol/LFTMC RemisolProtein [Mass/Vol]7.9 g/dLHigh6.0 - 7.8 gm/dLFT RemisolSodium [Moles/Vol]140 mmol/AGxmnta486 - 145 mmol/LFTMC Remisol Troponin I.cardiac [Mass/Vol]pg/mLLow10.10 - 27.10 pg/mLFTMC RemisolUrea nitrogen [Mass/Vol]11 mg/dLNormal5 - 21 mg/dLFTMC RemisolUrea nitrogen/Creatinine [Mass ratio]16 mg/fkMhdqvr67 - 20FT RemisolCMPon 36-20-6992Ovkmxox [Mass/Vol]4.3 g/dLNormal3.3-5.0[facility] Comment on above:Performed By: #### 6236573, 3844000, 52628678, 74999654, 1080828 ####[facility] [address] [place], [place] [address]Tlmvcdq/Globulin (S) [Mass conc ratio]1.7Zzfrmd2.1-2.2FCleveland Clinic Euclid HospitalComment on above:Performed By: #### 7593049, 1956080, 62573376, 47521469, 3355764 ####[facility] [address] [place] [address]MYA [Catalytic activity/Vol]80 Int._Unit/AHimdis68-33YygelmOhio State Harding HospitalComment on above:Performed By: #### 2764486, 9472849, 38125073, 22373425, 5307460 ####[facility] [address] [place] [address] No additional P-5'-P [Catalytic activity/Vol]46 Int._Unit/LNormal6-46 [facility] HospitalComment on above:Performed By: #### 3419369, 6000623, 16218148, 49581641, 7271243 ####[facility] [address] [place] [address]YWZ [Catalytic activity/Vol]37 Int._Unit/LNormal 5-43[facility] Hard[facility] HospitalComment on above:Performed By: #### 7462445, 0495080, 63678637, 27582150, 7502745 ####[facility] Lab [address] [place], [place] [address]Avbcapwgs [Mass/Vol]0.8 mg/dLNormal 0.0-1.1FC[facility] Clinic Euclid HospitalComment on above:Performed By: #### 9372144, 2025910, 80368171, 20085770, 5184594 ####[facility] [address] [place], [place] [address]Osjkcmxxsa [Mass/Vol]0.7 mg/dLNormal 0.5-1.3FCleveland Clinic Euclid HospitalComment on above:Performed By: #### 5500464, 8824597, 98242756, 10307072, 1101661 ####[facility] [address] [place], [place] [address]Jszhdepd (S) [Mass/Vol]3.6 g/dLNormal 1.4-4.0[facility] Hard[facility] HospitalComment on above:Performed By: #### 8092445, 3670590, 14455002, 76484982, 8456609 ####[facility] [address] [place], [place] [address]Lctkpsr [Mass/Vol]7.9 g/dLHigh6.0-7.8 [facility] HospitalComment on above:Performed By: #### 7336165, 3642101, 38795577, 71428935, 4937416 ####[facility] [address] [place], [place] [address]Bprz nitrogen [Mass/Vol]11 mg/dLNormal5-21[facility] Hard[facility] HospitalComment on above:Performed By: #### 6075687, 8304274, 60249455, 31195941, 7246106 ####[facility] [address] [place], [place] [address]Lcvx nitrogen/Creatinine [Mass ratio]16 No Units Kixqsm06-94SpiliuOhio State Harding HospitalComment on above:Performed By: #### 7272480, 6579477, 62534597, 75044882, 6870603 ####[facility] [address] [place], [place] [address]Vtcgh gap [Moles/Vol]12 mmol/LNormal 6-16[facility] Hard[facility] HospitalComment on above:Performed By: #### 4377063, 5578710, 11238929, 72315673, 4093734 ####[facility] [address] [place], [place] [address]Osmennz [Mass/Vol]9.6 mg/dLNormal 8.9-11.1FCleveland Clinic Euclid HospitalComment on above:Performed By: #### 7329125, 7244954, 78521941, 50807026, 1323790 ####[facility] [address] [place], [place] [address]Wzmujxyz [Moles/Vol]105 mmol/LNormal 101-111[facility] Harding HospitalComment on above:Performed By: #### 1092089, 4704460, 46212142, 80454527, 7291481 ####[facility] [address] [place], [place] [address]NQ0 [Moles/Vol]27 mmol/CGjizyj61-45 [facility] HospitalComment on above:Performed By: #### 3795968, 2817894, 65077742, 50434191, 2716937 ####[facility] [address] [place], [place] [address]Ggitoxb [Mass/Vol]69 mg/wPAqtcrw50-732KfcajaOhio State Harding HospitalComment on above:Result Comment: If this glucose result represents a fasting glucose, interpretation should refer tothe following reference range: 55-99 mg/dLPerformed By: #### 3926313, 1787717, 81767456, 93669369, 5539775 ####[facility] [address] [place] [address] Potassium [Moles/Vol]3.9 mmol/LNormal3.5-5.3FCleveland Clinic Euclid HospitalComment on above:Performed By: #### 5820259, 7465385, 72822931, 58631889, 8500808 ####[facility] [address] [place] [address] Sodium [Moles/Vol]140 mmol/DHyczyk796-140DhrxymOhio State Harding HospitalComment on above:Performed By: #### 3141934, 6526251, 34095608, 12012586, 3583766 ####[facility] [address] [place] [address] Consent for Treatmenton 02-75-3421Rptosht for Treatment [id number]#1.00CD:127[facility] LimaDischarge Instructionson 53-97-1614Kxppxniot Instructions [id number]#1.00CD:127NoSelect [facility] Clinical Summaryon 22-57-3667PU Clinical Summary [place] [address] ED Clinical Summary Person Information Name: SOFIA WIGGINS[place] Age: 21 Years : 2000 Sex: Female Language: Malaysian PCP: Wandy Dorado DO Marital Status: Single [...] 02/18/2022 15:44:15 02/18/2022 15:44:15 02/18/2022 15:44:15 ADDRESS: [address] [place] [id number] PHYS DOC NOTES: MEDICAL INFORMATION: Prescriptions Given: PATIENT EDUCATION INFORMATION: Instructions: Epidermal Cyst, Smeg-hw-Thul Follow up: With: Address: When: Sara MCGRATH, [place] In 3 days 02/21/2022 DIAGNOSIS: 1:Epidermoid cyst of skin of chest; 2:Chest painNormalFisher Colusa Medical CenterED Note-Physicianon 45-06-1963RV Note-PhysicianBasic Information Time Seen: Fabi Iraheta PA-C 02/18/2022 [...] few weeks ago she was seen at [facility] ED and had an abscess [...] on multiple different courses of antibiotics and whenshe followed up with dermatology they told her that she could stop all of them. She feels like the abscess is filling back up . Patient denies a chance of said her last normal menses was 2weeks ago. Currently uses cigarettes, marijuana. Denies alcohol [...] and awake. Speaking in complete sentences. Vital signsreviewed, WNL Skin: 2 small well-healing incisions left [...] abscess on her left upper middle chest wall.We will obtain labs for cardiac work-up. Physical exam seems consistent with a small cyst in between where she previously had a drain placed. We will also work on obtaining labs from [facility]. Patient to be given morphine and Zofran for her pain. Aspirin for her chest pain. Vital Signs: Reviewed the patient's vital signs. Nursing Notes: Reviewed and utilized the nursing notes. Rn Diabetes: not needed - patient preferred language is Malaysian. Old Medical Records: The patient's available past medical records and past encounters were reviewed. Summary of pertinent elements include: Patient was initially seen on 01/08/2022 for an abscess of her chest wall. These records were not sent to us. [facility] sent over two most recent visits for patient. According to their HPI, patient was seen numerous times in the emergency room following her I&D procedure for pain and reevaluation of the wound site. Multiple timesshe was instructed to follow-up with dermatology yet [...] had 65 Percocet prescri (more content not included)...[facility] Comment on above:Result Comment: Electronically Signed By: Myrtle TOVAR, Fabi E.\.br\Date and Time Signed: 02/18/22 14:57 EDT\.br\Electronically Co-Signed By: Cheng Saldaña DO\.br\Date and Time Co-Signed: 02/18/22 19:37 EDTED Patient Education Noteon 91-53-2963JT Patient Education NoteDermatology Epidermal Cyst An epidermal cyst is a [...] Follow these instructions at home: ? Take srpk-szz-wwfyskp and prescription medicines only as told by [...] cyst, or to remove it. ? Take qbjd-off-fndtxsy and prescription medicines only as told by [...] 11/26/2005 Document Revised: 02/09/2020 Document Reviewed: 07/28/2019 [employer] Patient Education ? 2019 [employer].[facility] ED Patient Summaryon [id number] Patient Summary [place] [id number] Patient Discharge Instructions Person Information Name: SOFIA WIGGINS Age: 21 Years Arrival Date: 02/18/2022 11:49:36 Discharge Diagnosis: 1:Epidermoid cyst of skin of chest; 2:Chest pain Primary Care Physician: Wandy Dorado DO Provider Information Primary Provider: Cheng Saldaña DO Advanced Stave Hewer:Fabi Iraheta PA-C The exam and treatment you received in the Emergency Department were for an urgent problem and are not intended as complete care. It is important that you follow up with a doctor, nurse practitioner,or physician?s community relations assistant for ongoing care. If your symptoms become worse or you do not improve as expected and you are unable to reach your usual health care provider, you should return to the Emergency Department. We are available 24 hours a day. SOFIA WIGGINS has been given the following list of patient education materials, prescriptions andfollow-up instructions: Follow-up Instructions: With: Address: When: Sara MCGRATH, [place] In 3 days 02/21/2022 In the event that this physician does not participate in your insurance network, please consult with your insurance company to find a nearby participating provider. Patient Education Materials: Epidermal Cyst, Tsft-vb-Zznq A MESSAGE TO ALL PATIENTS REGARDING OPIOIDS PRESCRIPTION OPIOIDS: WHAT YOU NEED TO KNOW Prescription opioids can be used to help relieve qsgnjlkw-bz-dnayko pain and are often prescribed following a [...] and have fewer risks and side effects. Optionsmay include: ? Pain relievers such as acetaminophen, [...] unused prescription opioids: Find your community drug take- back program or [employer] mail-back program, or flush them down the toilet, following guidance from the Food and Drug Administration (www.fda.gov/Drugs/ResourcesForYou). ? Visit www.cdc.gov/drugoverdose to learn about the risks of opioids abuse and overdose. ? If you believe you may be struggling with addiction, tell your health healthcare liaison and ask for guidance or call [facility]S National Helpline at 6-522-163-SEBZ. o Source: US Department of Health and (more content not included)...Normal [facility]ing HospitalHEMATOLOGYOrdered By: SYSTEM SYSTEM on 02-18-2022 Basophils/100 WBC (Bld)0.9 %Normal0.0 - 2.0 %[facility] HemeAutoSSBasophils/Leukocytes Auto (Bld) [Pure # fraction]0.1 E9/LNormal0.0 - 0.2 E9/LFTMC HemeAutoSS Eosinophils/100 WBC (Bld)7.0 %Normal0.0 - 8.0 %FT HemeAutoSS Eosinophils/Leukocytes Auto (Bld) [Pure # fraction]0.6 E9/LHigh0.0 - 0.5 E9/L [facility] HemeAutoSSLymphocytes/100 WBC (Bld)33.5 %Dnyyqs75.0 - 50.0 %[facility] HemeAutoSS Lymphocytes/Leukocytes Auto (Bld) [Pure # fraction]2.9 E9/LNormal1.0 - 4.0 E9/L [facility] HemeAutoSSMonocytes/100 WBC (Bld)8.4 %Normal4.0 - 14.0 %[facility] HemeAutoSS Monocytes/Leukocytes Auto (Bld) [Pure # fraction]0.7 E9/LNormal0.2 - 1.0 E9/L [facility] HemeAutoSSNeutrophils/100 WBC (Bld)50.2 %Mmllhm95.0 - 75.0 %[facility] HemeAutoSS Neutrophils/Leukocytes Auto (Bld) [Pure # fraction]4.3 E9/LNormal2.0 - 7.5 E9/L [facility] HemeAutoSSHEMATOLOGYOrdered By: Violette Whitaker on 13-70-6260Zruiwtgyfkn distribution width (RBC) [Ratio]14.6 %High10.9 - 14.2 %[facility] HemeAutoSSHematocrit (Bld) [Volume fraction]45.5 %Xcfejj19.0 - 46.0 %[facility] HemeAutoSSHemoglobin (Bld) [Mass/Vol]15.0 g/yVCmkrho52.0 - 16.0 gm/dLFTMC HemeAutoSSMCH (RBC) [Entitic mass]29.6 edLqzyog56.0 - 34.0 pgFTMC HemeAutoSSMCHC (RBC) [Mass/Vol]33.0 g/dL Tinyzq30.4 - 36.0 gm/dLFT[facility] HemeAutoSSMCV (RBC) [Entitic vol]89.7 lNNnlfyc41.0 - 100.0 fLFTMC HemeAutoSSPlatelet mean volume (Bld) [Entitic vol]10.5 fLNormal6.4 - 10.8 fLFTMC HemeAutoSSPlatelets (Bld) [#/Vol]339.0 E9/RSpcedr489.0 - 500.0 E9/L[facility] HemeAutoSSRBC (Bld) [#/Vol]5.1 E12/LNormal4.3 - 5.9 E12/L[facility] HemeAutoSSWBC corrected for nucl RBC Auto (Bld) [#/Vol]8.6 E9/LNormal4.0 - 11.0 E9/L[facility] HemeAutoSSOutside Recordson 44-94-7252Majrwhx Records [id number]#1.00CD:[address] [place], [place] [address]Prescriptions/Work Noteson 08-00-0751Iaahvdcfeqwil/Work Notes [id number]#1.00CD:[address] [place], [place] [address]EROLOGYOrdered By: Tod Rg on 34-99-4572VTA.beta subunit (U) [Moles/Vol]NegativeUNC Health Blue Ridge - [facility]org[facility] Man SeroTroponin 0 Hr.on 06-22-1081Sdkunkfv I.cardiac [Mass/Vol]ng/mLLow10.10-27.10Ohio [facility] Harding HospitalComment on above:Result Comment: The 95% CI (Confidence Interval) PPV (Positive Predictive Value) for myocardial infarction in females is 38 pg/mL, in males 51 pg/mL. The results should be used in conjunction with clinical conditions of myocardial infarction. (Access High Sensitivity Troponin I Instructions For Use, Alfonso Giancarlo, June 2018)Performed By: #### [id number], [id number], [id number], [id number], [id number] ####[facility] [address] [place], [place] [address]W BetaHcg Qualon 41-67-4649MXJ.beta subunit (U) [Moles/Vol]NegativeKindred Hospital LimaComment on above:Performed By: #### [id number], [id number] ####[facility] [address] [place], [place] [address]ED With Cult Reflexon 86-07-2270Mwlfqsbbxp cells.squamous LM.HPF (Urine sed) [#/Area]1-3Vmuwad3-7Rqrxid St. Agnes HospitalComment on above:Performed By: #### [id number], [id number] ####[facility] [address] [place], [place] [address]Blmhfyj.plasma/Port Labelle.RBC (Bld) [Mass ratio]7-8Rklpgk9-1 [facility] HospitalComment on above:Performed By: #### [id number], [id number] ####[address] [address]KEX LM.HPF (Urine sed) [#/Area]4-3Skxpck4-0VvbfdaCleveland Clinic Euclid Hospital Comment on above:Performed By: #### [id number], [id number] ####[address] [address]Hubsdxdvw Ql (U)NegativeNormal NegativeOhio State Harding HospitalComment on above:Performed By: #### [id number], [id number] ####[address] [address]Ugzayie (U)CLEARNormalClearOhio State Harding HospitalComment on above: Performed By: #### [id number], [id number] ####[address] [address]Otcdg (U)STRAWInvalid Interpretation CodeOhio State Harding HospitalComment on above:Performed By: #### [id number], [id number] ####[address] [address]Snfqmln Test strip (U) [Mass/Vol]NegativeNormalNegativeOhio State Harding HospitalComment on above:Performed By: #### [id number], [id number] ####[address] [address]Mgmleyemce Ql (U)TRACE AbnormalNegativeOhio State Harding HospitalComment on above:Performed By: #### [id number], [id number] ####[address] [address]Tsacdue (U) [Mass/Vol]NegativeNormalNegativeOhio State Harding HospitalComment on above:Performed By: #### [id number], [id number] ####[address] [address]Jufiovo Ql (U) NegativeNormalNegativeOhio State Harding HospitalComment on above:Performed By: #### [id number], [id number] ####[place] [address] [address]bK (U)6.5 [pH]Invalid Interpretation Code5.0-9.0[facility] Harding HospitalComment on above:Performed By: #### [id number], [id number] ####[address] [address]Untilct (U) [Mass/Vol]NegativeNormalNegativeOhio State Harding HospitalComment on above: Performed By: #### [id number], [id number] ####[address] [address]Hbhzkayy gravity (U) [Rel density] <=1.005Invalid Interpretation Code1.005-1.030Ohio [facility] Harding HospitalComment on above:Performed By: #### [id number], [id number] ####[address] [address]Mkmj of Urine collection methodRandom UrineNormCommunity Regional Medical CenterComment on above:Performed By: #### [id number], [id number] ####[address] [address]Tehrvyeoqcqo Qn (U)0.2 {Kevin'U}/dLNormal0.0-1.0[facility] Harding HospitalComment on above:Performed By: #### [id number], [id number] ####[address] [address]YUR Auto Ql (U)NegativeNormalNegKettering Health MiamisburgComment on above: Performed By: #### [id number], [id number] ####[address] [address]HLXJHMYCNFGlryzin By: Tod Rg on 62-74-8892Ufljxzjht Ql (U)Negative (02/18/22 2:39 PM)NormalNegativeCAR[facility] UA Auto SSClarity (U)Clear (02/18/22 2:39 PM)NormalClearFSAINT FRANCIS HOSPITAL [facility] – [facility] UA Auto SSColor (U)STRAWInvalid Interpretation CodeCARL [facility]BERT [facility] UA Auto SSEpithelial cells.squamous LM.HPF (Urine sed) [#/Area]0-2 /HPF Normal0-2/HPFCARL ALBERT [facility]ITY [facility] UA Auto SSGlucose Test strip (U) [Mass/Vol]Negative (02/18/22 2:39 PM)NormalNegativeCAR[facility] UA Auto SSHemoglobin Ql (U)Trace *ABN* (02/18/22 2:39 PM)Invalid Interpretation CodeNegativeCARL [facility] UA Auto SSKetones (U) [Mass/Vol]Negative (02/18/22 2:39 PM)NormalNegativeCAR[facility] UA Auto SSLithium.plasma/Port Labelle.RBC (Bld) [Mass ratio]0-3 /HPFNormal0-3/HPFCARL ALBERT [facility] UA Auto SSNitrite Ql (U)Negative (02/18/22 2:39 PM)NormalNegativeCAR[facility] UA Auto SSpH (U)6.5 *NA* (02/18/22 2:39 PM)Invalid Interpretation Code5.0 - 9.0[facility] UA Auto SSProtein (U) [Mass/Vol]Negative (02/18/22 2:39 PM)NormalNegativeCAR[facility] UA Auto SSSpecific gravity (U) [Rel density] <=1.005 *NA* (02/18/22 2:39 PM)Invalid Interpretation Code1.005 - 1.030[facility] UA Auto SSUA Spec DescRandom Urine (02/18/22 2:39 PM)NormalCARL [facility]BERT [facility] UA Auto SSUrobilinogen Qn (U)0.4852772 {Kevin'U}/dLNormal0.0 - 1.0 EU/dLCARL ALBERT [facility]ITY [facility] UA Auto SSWBC Auto Ql (U)Negative (02/18/22 2:39 PM)NormalNegativeCAR[facility] UA Auto SSWBC LM.HPF (Urine sed) [#/Area]0-5 /HPFNormal0-5/HPFCARL ALBERT [facility] UA Auto SSXR Chest 2 Viewson 02-82-7821UP Chest 2 Views Exam Date/Time: 02/18/2022 14:14 [...] Esequiel Holder M.D. Transcribed by: DARWIN Technologist: JULIETHMemorial Health System Selby General HospitaleGFRronny 36-02-7601PSC/1.73 sq M.predicted among blacks MDRD (S/P/Bld) [Vol rate/Area] mL/min/{1.73_m2}Normal>=59Ohio State Harding HospitalComment on above:Order Comment: Order added by Discern Expert.Result Comment: eGFR is race adjusted. AA=.Performed By: #### [id number], [id number], [id number], [id number], [id number] ####[facility] [address] [place], [place] [address]YTN/1.73 sq M.predicted among non-blacks MDRD (S/P/Bld) [Vol rate/Area] mL/min/{1.73_m2}Normal>=59Ohio [facility] Harding HospitalComment on above:Order Comment: Order added by Discern Expert.Result Comment: Chronic kidney disease could be indicated at eGFR's of less than 60 mL/min/1.73m2. Kidney failure is indicated at less than 15 mL/min/1.73m2.Performed By: #### [id number], [id number], [id number], [id number], [id number] ####[facility] [address] [place], [place] [address]Ujqcbw Summary.on 65-18-8452Iwmadr Summary. CD:[id number]:[id number]+PGhlYWQ+UL2BOCPmD61ghKZqzB9SS8vIYF2VWGEVCEDGTR3XWL8cg BI6LPmbH7IawbDh [file] c2U6 (more content not included)...[facility]air Medical CenterED Note-Physicianon 38-23-1925VN Note-PhysicianBasic Information Time Seen: Redd TOVAR Andrew 04/29/2021 16:12 Chief Complaint Pt states two [...] of maximum tenderness. Pain increases with circumduction ofthe wrist. Review of Systems A 10 point [...] Appropriate mood & affect. Integumentary: Warm, Dry, [place] Medical Decision Making Plain film x-rays were [...] In 3 days 05/02/2021 EDT [address] [place] [address]- Business (1) Additional Instructions: Ice to the [...] days ago Tobacco Use:. Current vaping or e- cigarette use SmokelessTobacco Use:. Vaping, Yes, 04/09/2021 Family History Anxiety: Mother. Diabetes mellitus type 2: Mother. Hypertension: Mother. Primary malignant neoplasm of female breast: Mother. Lab Results No qualifying data available. Diagnostic Results No qualifying data available.Kindred Hospital LimaComment on above: Result Comment: Electronically Signed By: Andrew Rainey PA-C\.br\Date and Time Signed: 04/30/21 13:32 EDT\.br\Electronically Co-Signed By: Alton Francisco DO\.br\Date and Time Co-Signed: 04/30/2114:00 EDTXR Wrist 3+ Views Lefton 07-31-1276EG Wrist 3+ Views LeftExam Date/Time: 04/29/2021 17:03 EDT Reason for Exam: [...] Petros Lance M.D. Transcribed by: DARWIN Technologist: ZAKKindred Hospital LimaConsent for Treatmenton 22-01-2943Inqojsy for Treatment [id number]#1.00CD:[address] [place], [place] [address]Discharge Instructionson 61-99-7195Fdsgudvvs Instructions [id number]#1.00CD:127[facility] Clinical Summaryon 08-58-8220EU Clinical Summary [place] [id number] ED Clinical Summary Person Information Name: SOFIA WIGGINS/[facility] Age: 20 Years : 2000 Sex: Female Language: Malaysian PCP: Wandy Dorado DO Marital Status: Single [...] 04/29/2021 17:51:20 04/29/2021 17:51:20 04/29/2021 17:51:20 ADDRESS: [address] [place] [address] [address] [place] [id number] [facility] DOC NOTES: MEDICAL INFORMATION: Prescriptions Given: New [...] With: Address: When: Wandy Dorado [address] [place] [address] Business (1) In 3 days 05/02/2021 Comments: Ice to the wrist, wear the splint at all times. Medications as directed. DIAGNOSIS: 1:Tendinitis of wrist; 2:Left wrist painNormalCommunity [facility]alther [facility] Patient Education Noteon 26-74-3803TH Patient Education NoteOrthopedics Tendinitis Tendinitis is inflammation of a tendon. A tendon is a strong cord of tissue that connects muscle tobone. Tendinitis can affect any tendon, but it [...] This is known as RICE therapy. Treatment mayalso include: ? Medicines to help reduce inflammation [...] by your health care provider. ? Take gwyb-vik-wonwzex and prescription medicines only as told by [...] 10/16/2001 Document Revised: 04/26/2019 Document Reviewed: 03/09/2019 [employer] Patient Education ? 2019 [employer]. Wrist Pain, Adul (more content not included)...[facility] Patient Summaryon 04-29-2021 ED Patient Summary [place] [id number] Patient Discharge Instructions Person Information Name: SOFIA WIGGINS Age: 20 Years Arrival Date: 04/29/2021 15:18:05 Discharge Diagnosis: 1:Tendinitis of wrist; 2:Left wrist pain Primary Care Physician: Wandy Dorado DO Provider Information Primary Provider: Alton Francisco DO Advanced Stave Hewer:Andrew Rainey PA-C The exam and treatment you received in the Emergency Department were for an urgent problem and are not intended as complete care. It is important that you follow up with a doctor, nurse practitioner,or physician?s community relations assistant for ongoing care. If your symptoms become worse or you do not improve as expected and you are unable to reach your usual health care provider, you should return to the Emergency Department. We are available 24 hours a day. SOFIA WIGGINS has been given the following list of patient education materials, prescriptions andfollow-up instructions: Follow-up Instructions: With: Address: When: Wandy Dorado [address] [place], [place] [id number] Business (1) In 3 days 05/02/2021 Comments: [...] opioids can be used to help relieve wqkeprsz-vt-mivkgn pain and are often prescribed following a [...] and have fewer risks and side effects. Optionsmay include: ? Pain relievers such as acetaminophen, [...] unused prescription opioids: Find your community drug take- back program or SocialTagg mail-back program, or flush them down the toilet, following guidance from the Food and Drug Administration (www.fda.gov/Drugs/ResourcesForYou). ? Visit www.cdc.gov/drugoverdose to learn about the risks of opioids abuse and overdose. ? If you believe you may be struggling with addiction, tell your he (more content not included)...[facility] Hospital LimaAmbulatory Clinical Summaryon 27-40-3416Qnvtnivpei Clinical Summary {px-c7-c9-54-s3-5z-6s-26-sr-zz-89-76-4e-7e-38-df}CD:443808TmmbsfHyixmbGrant HospitalFaforsyth dental infirmary for [facility] Medicine Video Visit - Telehealthon 79-83-8336Qygbjo Medicine Video Visit - TeleL[facility] Staff Depression Screening Little Interest, Pleasure in [...] the restrictions of the COVID-19 pandemic. All issuesas below were discussed and addressed but no physical exam was performed. If it was felt that the patient should be evaluated in clinic then they were directed there. The patient verbally consented to visit. Assessment/Plan 1. Nausea (R11.0: Nausea) Resolved. Patient his felt better since 04/04. Patient is returning to work tomorrow. Follow-up With When Contact Information Barbara Sen Only if needed [email or web address] Additional Instructions: Patient Education Health Maintenance, Female [...] days ago Tobacco Use:. Current vaping or e- cigarette use SmokelessTobacco Use:. Vaping, Yes, 04/09/2021 Family History Anxiety: Mother. Diabetes mellitus type 2: Mother. Hypertension: Mother. Primary malignant neoplasm of female breast: Mother. [1] Ambulatory Comprehensive Intake FT; Wandy Grigsby MA 04/09/2021 15:52 EDT [facility] Hospital LimaComment on above:Result Comment: Electronically Signed By: Barbara Sen.maxwell\Date and Time Signed: 04/09/21 16:10 EDT Patient Educationon 63-96-1569Bsupmya EducationObstetrics and Gynecology Health Maintenance, Female Adopting a healthy lifestyle [...] risk of stroke. This is more likely todevelop in people who have high blood pressure [...] should then be tested every 3 months foras long as you are taking the medicine. [...] minerals and strength with aging. This can resultin bone fractures. If you are 65 years [...] ? Ask your heal (more content not included)...[facility] Provider Letteron 03-26-1603Rodxqbbv Letter April 09, 2021 SOFIA WIGGINS [address] [place] [address] To Whom It May Concern, Please excuse above patient from work. Date of Illness: From: 04/03 To: 04/09 May Return to Work On:04/10 Sincerely, Family Medicine [address] [address] FtvqvgDgfhgwGrant HospitalCHEST, SPECIAL VIEWS(DEBUB/UMAIR)on 45-48-7779MZCFL, SPECIAL VIEWS(DEBUB/UMAIR) Name: SOFIA WIGGINS STUDY:CHEST, SPECIAL VIEWS(DEBUB/UMAIR); 09/30/2018 7:06pm INDICATION:Signs/Symptoms: fall off hosre. COMPARISON:None. ORDERING CLINICIAN:JOHNIE WELLINGTON FINDINGS: CARDIOMEDIASTINAL SILHOUETTE:Cardiomediastinal silhouette is normal in size and configuration. LUNGS:Lungs are clear. BONES:No acute osseous changes. IMPRESSION:1.No evidence of acute cardiopulmonary process.Electronically signed by: ARACELI GONZALEZ MDFlower HospitalCT C-SPINE WO CONTRASTon 79-56-9559EZ C-SPINE WO CONTRASTMRN: [id number] Name: SOFIA WIGGINS STUDY:CT C-SPINE WO CONTRAST; 09/30/2018 7:06 pm INDICATION:Signs/Symptoms: fall off hosre, pain c4. COMPARISON:None. ORDERING C LINICIAN:JOHNIE WELLINGTON TECHNIQUE:Contiguous axial images of the cervical spine were obtained withoutintravenous contrast. Coronal and sagittal reformatted images wereobtained from the axial images. FINDINGS:No evidence of acute fracture or subluxation of the cervical spine.The vertebral body heights are preserved. There is limited evaluationof the soft tissues of the spinal canal. No evidence ofsignificantspinal canal stenosis. No prevertebral soft tissue edema.Mucosal thickening bilateral mastoid air cells, middle ear cavities,and paranasal sinuses. IMPRESSION:No evidence of acute fractureor subluxation of the cervical spine. Mucosal thickening bilateral mastoid air cells, middle ear cav ities,and paranasal sinuses.Electronically signed by: JUAN JASSO MD Flower HospitalCT HEAD WO CONTRASTon [id number] HEAD WO CONTRAST Name: SOFIA WIGGINS STUDY:CT HEAD WO CONTRAST; 09/30/2018 7:06 pm INDICATION:Signs/Symptoms: fall off horse. COMPARISON:None ORDERING CLINICIAN:JOHNIE WELLINGTON TECHNIQUE:Contiguous axial images of the head were obtained without intravenouscontrast.FINDINGS:BRAIN PARENCHYMA: The jurado white matter differentiation is [...] pneumatized.CALVARIUM:No evidence of depressed calvarial fracture. OTHER FINDI NGS:None IMPRESSION:No evidence of acute intracranial hemorrhage or depressed calvarialfracture. Mucosal thickening in paranasal sinuses. Electronically signed by: JUAN JASSO MDFlower HospitalPELVIS, 1 OR 2 VIEWSon 73-23-6326LTGIDF, 1 OR 2 VIEWSMRN: [id number] Name: MARTINE WIGGINSE STUDY:PELVIS, 1 OR 2 VIEWS; 09/30/2018 7:06 pm INDICATION:Signs/Symptoms: fall off horse last night. COMPARISON:None. ORDERING C LINICIAN:JOHNIE WELLINGTON FINDINGS:AP pelvis. The osseous structures and soft tissues appear normal. Nofracture or dislocation is noted IMPRESSION:Unremarkable pelvis Electronically signed by: ARACELI GONZALEZ MD Flower HospitalProvider Note - ED v2on 91-61-8859Bsvafoc mass conc Provider Note - ED v2:Chart Review:ED NOTESED NOTES: HISTORY OF PRESENT ILLNESS:17-year-old female previously healthy presenting for fall from horse thatoccurred yesterday. Patient states she was riding about a 7 foot tall horse.Fell off the horse. States there were around 10 people present. Statesshe wasunconscious for about 10-15 minutes. States she went home last night and feltfine. This morning she awoke with a generalized throbbing headache, neck pain,dizziness and right shoulder pain. Unable to walk with no difficulty. No otherinjuries noted. Denies changes in vision, numbness, tingling, loss of motion,shortness of breath, chest pain, abdominal pain, vomiting or any othersymptoms. LMP September 07. REVIEW OF SYSTEMS:NEGATIVE:Constitutional: Fever, ChillsEyes: Vision Loss/ChangesENT: Nasal Congestion, Throat PainCardio: Chest Pain, PalpitationsResp: Cough, Difficulty BreathingGI: Abdominal Pain, Vomiting, DiarrheaNeuro: ConfusionGU: Dysuria, Flank PainReview of systems is otherwise negative unless stated above or in history ofpresent illness. Medications and allergies reviewed. PHYSICAL EXAM:General: Vitals noted. Alert & oriented x4. No acute distress. Restingcomfortably.Normal phonation, no stridor.Head: Normocephalic, atraumatic. Negative Battles sign and raccoon eyes.EENT: PERRLA. EOMI. TMs clear, no hemotympanum.Neck: Supple. Tenderness around C4, without crepitus/stepoffs. C-collar inplaceHeart: Regular rate and rhythm. No murmurs, rubs or gallops. No chest walltenderness.Lungs: Clear to auscultation bilaterally. No rales, wheezing, or rhonchi. Norespiratorydistress. No paradoxical chest wall motion.Abdomen: Soft and nontender. Bowel sounds present in allquadrants. No guardingor rebound.Back: No midline or paraspinal tenderness. Full ROM.Extremities: Pelvis stable. Minimal tenderness to the anterior aspect of theright shoulder. otherwise rest of extremity and other extremities arenontender. Full active ROM of all 4 extremities with no obvious signsofdeformity. No edema.Skin: Warm and dryNeuro: counseling center director are grossly intact. No facial asymmetry. Moves all uninjuredextremities equally. GCS is 15. Differential Diagnosiscontusion, strain, sprain, muscle spasm, concussion, fracture, cranial bleed ED Course/Medical Decision Making:Patient is a 17-year-old female presenting for headache post-fall from a horseyesterday. Vital signs stable. Exam remarkable for tenderness around C4.Ordered Tylenol. CT head, C-spine are negative for acute process. Patientwascleared from c-collar. Chest x-ray, pelvic x-ray and right shoulder x-ray wereall negative for acute fractures. We'll with trauma surgery Dr. Flood,discussed the patient's presentation and resultshe agreed with dischargingpatient. Discussed results with patient. Agreed with plan. Likelymusculoskeletal with closed head injury. Will discharge home with naproxen andFlexeril. Advised to call her PCP for follow-up appointment in 2-3 days. Alsogiven concussion clinic information. Plan:Discussed differential, results and discharge plan with the patient and/orfamily/friend/caregiver if present. Iemphasized the importance of follow- upwith the physician I referred them to in the timeframe recommended. Iexplained reasons for the patient to return to the Emergency Department. Wealso discussed medications that were prescribed (if any) including common sideeffects and interactions. All questionswere addressed. They understand returnprecautions and discharge instructions. Patient and family/friend/caregiver arein agreement with this plan and will be discharged home in stable condition. Discussed and reviewed case with attending, who agreed with plan. Disclaimer: This note was dictated by speech recognition. Minor errors intranscription may be present.Please call if questions. Johnie Wellintgon, DOEmerparkhill the clinic for women Medicine, PGY 3 HISTORY OF PRESENTING ILLNESSNICOLETTE [...] Allergies HEALTH HISTORY: No documented data. OUTPATIENT MEDICATIONS:Home Medications Review Status for Reconciliation: NotDoneMed Status: Patient Currently Takes Medications Drug Name: naproxen 500 mg oral tabletInstructions: 1 tab(s) orally 2 times a day as needed for pain Drug Name: cyclobenzaprine 10 mg oral tabletInstructions: 1 tab(s) orally 3 times a day SIGNIFICANT EVENTS: No documented data. BEAUTY CONSULTANT: Last Menstrual Period: 07-Sep-2018 Is : no(1) IsBreastfeeding:no RESULTS/VITAL SIGNSRESULTS:Radiology Results: I have reviewed this [...] 7:12PM] VITAL SIGNS: T PRBP SpO2O2(LPM) %FiO2 18:34:00-36.24606867/80 97 room air, no respiratorysupport CLINICAL IMPRESSIONDiagnosis/Annotation: ED Dx Name:Fall Code:W19.XXXA Name:Closed head injury with concussion, with loss of consciousness of 30minutes or less, initial encoun Code:S06.0X1A Name:Right shoulder pain Code:M25.511 Name:Neck pain, acute Code:M54.2 Dispostion: discharged Type: homeCondition on Disposition: stable ATTESTATIONAttestation: I saw and evaluated the patient. I personally obtained the keyand critical portions of the history and physical exam or was physicallypresent for jones and criticalportions performed by the resident/fellow. Ireviewed the resident/fellows [...] was clearedfor discharge home. She was given follow-upwith concussion clinic. I agreewith the resident assessment and plan. CRITICAL CARE TIMEIs this a critically ill patient: no Electronic Signatures:Jagdish Arguello () (Signed 02-Oct-2018 22:04)Authored: Provider Note - ED f5An-Ujbwtz: Provider Note - ED j0XcudcocJohnie Wellington ( (Resident)) (Signed 30-Sep-2018 19:51)Authored: Provider Note - ED v2 Last Updated: 02-Oct-2018 22:04 by Jagdish Arguello () References:1. Data Referenced From Triage - ED 09/30/2018 06:34 [facility] HospitalRisk Screen - Adult Emergencyon [id number] Screen - Adult EmergencyPreferred Language:Preferred Language: Preferred Language for Discussing Health Care (patient/designee)Malaysian Advanced Directives: Advance Directive Medicalno Advance Directive Information Givenpatie nt/family declined Family Violence Adult:Abuse Screen: Are you or have you been threatened or abused physically, emotionally, orsexually by anyoneno Suicide / Depression:Suicide/Depression Screen: During the past month, have you often been bothered by feeling down,depressed or hopelessno During thepast month, have you often had little interest or pleasure indoing thingsno Have you had any thoughts of harming yourselfno Have you had any thoughts of harming anyone elseno Learning Assessment (Patient):Learning Assessment (Patient): Patient is Able to be Assessed for Learningyes Factors Influencing Readiness to Learnpain Factors that Impact Ability to Learnnone Devices/Methods Used to Communicatenone Learning Preferencesverbal instruction Cultural Considerationsnone Developmental Considerationsnone Jewish Considerationsnone Learning Assessment (Other Learner):Learning Assessment (Other [...] injured [place] a Tra[place] Center [place] [place] [facility] no Electronic Signatures: Kateryna Troy (KYA) (Signed 30-Sep-2018 19:18)Authored: Preferred Language, Advanced Directives, Family Violence Adult,Suicide / Depression, Learning Assessment (Patient), Learning Assessment (OtherLearner), Fall Risk Adult, Pressure Injury, Respiratory / Cough /TB,Smoking/Social History (Required age 13 or older), CAGE Last Updated: 30-Sep-2018 19:18 by Kateryna Troy (KYA)[facility] CenterHOULDER, CMPLT, MIN 2 VIEWSon 03-00-7144JGFKHVUF, CMPLT, MIN 2 VIEWSMRN: [id number] Name: SOFIA WIGGINS STUDY:SHOULDER, CMPLT, MIN 2 VIEWS; 09/30/2018 7:06 pm INDICATION:Signs/Symptoms: fall off horse last night. COMPARISON:None. ORDERING CLINICIAN:JOHNIE WELLINGTON FINDINGS:Right shoulder three views. The osseous structures and soft tissuesappear normal. No fracture or dislocation is noted IMPRESSION:Unremarkable right shoulder Electronically signed by: ARACELI GONZALEZ MDFlower HospitalTriage - EDon [id number] - EDQulaura Triage:Are You noAre You Currently Breastfeedingno Pain:Pain Rating (0- 10): Rest8 Chart Review:CHIEF COMPLAINT SOFIA WIGGINS is a Female patient with a chief complaint of headache (Ptstates she fell off 7 ft horse yesterday and hit the back of her head. Ptstates she lost consciousness x 10-15 minutes. States she developed headachethis morning when she woke up and is c/o dizziness. Pt c/o neck pain. C-collarapplied at time of triage.).Onset of the Complaint: 15-Hmm-[id number] Date/Time: 30-Sep-2018 18:34Pain Rating (0-10): Rest: 8Vital Signs:Temperature: 97.1F ( 36.2C)Blood Pressure: 132/80 Mean:Heart Rate: 92Respiratory Rate: 18Pulse Oximetry: 97% on room air, no respiratory support. Height: 4 feet 11.00inches. 149.8 CMWeight: 135.0 pounds. Calculated 61.2 kg.Calculated BMI(kg/m2): 27.272 Calculated BSA (m2) 1.60 Cough lasting greater than 3 weeks: noPatient immunocompromised related to: N/ATravel outside of [place]: noAllergies: noLast menstrual period: 16-Enb-0209NXS: 2 Symptoms Are POSITIVE For:facial pain and neck pain.Symptoms Are Negative For:anorexia, anxiety, blur red vision, congestion, eye pain, nausea andphotophobia. PAIN Pain Scale Used: CONCHA PRIMARY ASSESSMENT SOFIA WIGGINS's primary assessment is Within Normal Limits. The airway is openand patent. Breathing spontaneous and unlabored with clear breath soundsbilaterally. Circulation is normal with goodperipheral pulses. Skin is warmand dry and color is normal for race. Past Medical History: Past Medical History Reviewedyes Electronic Signatures:Regine Lundberg (RN) (Signed 30-Sep-2018 18:38)Authored: Triage, Past Medical History Last Updated: 30-Sep-2018 18:38 by Regine Lundberg (RN)[facility] Vital Signs Date TimeVital SignValuePerforming GjiwzrvyaZahokjrg68-70-5383 11:11-0400Body mass index (BMI) [Ratio]37.34 kg/s0Gefwd Milton DO Work Phone: 1(765)620-[address] [place], [place] [address]Jklgnbkmwl27-29-3712 11:11-0400Body ybohbu52.28 kgCorey Milton DO Work Phone: [phone] [place], [place] [address]Tzgndwsujc95-68-1653 11:11-0400Diastolic blood ckznwxyn10 mm[Hg]Jorge Milton DO Work Phone: [phone])[facility] [place], [place] [address]Jngimbwhij40-50-7747 11:11-0400Systolic blood hcfnalnk677 mm[Hg]Jorge Milton DO Work Phone: [phone] [place], [place] [address]Gvfipwvzuk24-91-1114 10:04-0400Body mass index (BMI) [Ratio]36.42 kg/m2Wandy Robin PA Work Phone: 1([phone] [place], [place] [address]Vddplmykhk70-20-9902 10:04-0400Body kxydpc52.19 kgWandy STANFORD Work Phone: [phone] [place], [place] [address]Tnicmqisbi42-61-5811 10:04-0400Diastolic blood uczhtllg62 mm[Hg]Wandy STANFORD Work Phone: 1(664)126-[address] [place], [place] [address]Biscpdkldq61-87-5656 10:04-0400Systolic blood yevuyxpp114 mm[Hg]Wandy STANFORD Work Phone: 1(231)[facility] [place], [place] [address]Oudquovepz29-73-2593 10:59-0400Body mass index (BMI) [Ratio]34.16 kg/l4Tjniq Milton DO Work Phone: 1(831)340-[address] [place], [place] [address]Vrkjgvlnll73-83-0565 10:59-0400Body kzsfim47.02 kgCorey Milton DO Work Phone: [facility] HospitalNawxgikngw76-97-8413 10:59-0400Diastolic blood mm[Hg]Jorge Milton DO Work Phone: [facility] HospitalCmivigmihg89-18-8108 10:59-0400Systolic blood boxbkmsr647 mm[Hg]Jorge Milton DO Work Phone: 1(375)877-[address] [place], [place] [address]Odvcmcpfet72-49-4688 09:25-0400Body mass index (BMI) [Ratio]32.52 kg/m2Wandy Robin STANFORD Work Phone: 1(882)172-[address] [place], [place] [address]Anuvyelsaa91-16-7565 09:25-0400Body .28 kgWandy Robin STANFORD Work Phone: 1(593)560-[address] [place], [place] [address]Siaxlygzem84-30-3433 09:25-0400Diastolic blood mm[Hg]Wandy STANFORD Work Phone: 1(649)725-[address] [place], [place] [address]Ckmzkqtejs83-07-8361 09:25-0400Systolic blood zzggcqlo242 mm[Hg]Wandy STANFORD Work Phone: [facility] HospitalXndqxajadk68-97-9936 09:23-0400Body mass index (BMI) [Ratio]31.48 kg/r3Pncpl Milton DO Work Phone: [facility] HospitalErlkbwahyw72-63-6819 09:23-0400Body qaqjyb54.89 kgCorey Milton DO Work Phone: 1(151)802-[facility] HospitalCwjvuqphwc90-65-8180 09:23-0400Diastolic blood fohsgfyp02 mm[Hg]Jorge Milton DO Work Phone: 1(381)706-[facility] HospitalLwzsqxgndd09-17-1621 09:23-0400Systolic blood efojbqyr951 mm[Hg]Jorge Milton DO Work Phone: 1([phone] [place], [place] [address]Bthvrxlcss25-25-0366 15:49-0400Body mass index (BMI) [Ratio]30.54 kg/m2[facility]05-29-2025 15:49-0400Body ppewqv82.76 kgNoNorth [facility]05-29-2025 15:49-0400Diastolic blood mm[Hg][facility]05-29-2025 15:49-0400Systolic blood tbawdlzx439 mm[Hg][facility]03-13-2024 08:39-0400Body jayrej494.1 cmTstephen Crawford DO Work Phone: [facility] CenterSafe[facility] [place] Cbamyi83-60-1532 08:39-0400Body mass index (BMI) [Ratio]33.96 kg/n6LtvqiTiburcio Crawford DO Work Phone: [facility] HospitalUIE[facility]03-13-2024 08:39-0400Body vmzeaa44.56 kgTiburcio Crawford DO Work Phone: [facility] HospitalUIE[facility]03-13-2024 08:39-0400Diastolic blood pcbtuzht23 mm[Hg]Tiburcio Crawford DO Work Phone: [facility] HospitalUIE[facility]03-13-2024 08:39-0400Systolic blood ejmvqdko548 mm[Hg]Tiburcio Crawford DO Work Phone: [facility] CenterRed-rabbit01-30-2024 11:00-0500Body zqargy792.27 Simi Mo Other [employer] Other 01-30-2024 11:00-0500Body mass index (BMI) [Ratio] 39.31 kg/s7WdqarKayley Mo Other [employer] Other 01-30-2024 11:00-0500Body ybmcfzvvqgc434.2 [degF]Kayley Mo Other [employer] Other 01-30-2024 11:00-0500Body zfebyp33.69 kgKayley Mo Other [employer] Other 01-30-2024 11:00-0500Respiratory rate18 /minKayley Mo Other [employer] Other 01-30-2024 11:00-8378XaK0% (BldA) [Mass fraction]97 % Kayley Mo Other [facility] [employer] Other 11-23-2023 08:48-0500Body pivrwl227.86 cmDO Shauna Atkinson Work Phone: 1(573)295-[facility]11-23-2023 08:48-0500 Body hxlfflcuwsv60.4 [degF]DO Shauna Atkinson Work Phone: 1(419)027-[address] [place], [place] 7273811-23-2023 08:48-0500 Body .13 kgDO Shauna Atkinson Work Phone: 1(969)020-[address] [place], [place] 7273811-23-2023 08:48-0500 Diastolic blood gckxmyvl01 mm[Hg]DO Shauna Atkinson Work Phone: 1(729)809-[address] [place], [place] 7273811-23-2023 08:48-0500 Heart rate99 /GopalByron Shauna Atkinson Work Phone: 1(072)933-[address] [place], [place] 7273811-23-2023 08:48-0500 Respiratory rate18 /Milton Shauna Atkinson Work Phone: 1(579)7-[address] [place], [place] 7273811-23-2023 08:48-0500 SaO2% (BldA) [Mass fraction]97 %DO Shauna Atkinson Work Phone: 1(052)727-[address] [place], [place] 7273811-23-2023 08:48-0500 Systolic blood mqvdzeey540 mm[Hg]DO Shauna Atkinson Work Phone: 1(901)889-[address] [place], [place] 7273803-10-2023 15:00-0500 Diastolic blood ayfbpwte73 mm[Hg]DO Shauna Atkinson Work Phone: 1(751)485-[address] [place], [place] 7273803-10-2023 15:00-0500 Heart rate76 /Milton Atkinson Work Phone: 1(513)327-[address] [place], [place] 7273803-10-2023 15:00-0500 Respiratory rate16 /Milton Atkinson Work Phone: 1(495)530-[facility]03-10-2023 15:00-0500 SaO2% (BldA) [Mass fraction]96 %DO Shauna Atkinson Work Phone: 1(864)610-[facility]03-10-2023 15:00-0500 Systolic blood meujmelm224 mm[Hg]DO Shauna Atkinson Work Phone: 1(260)922-[address] [place], [place] 7273803-10-2023 11:40-0500 Body nboahk692.86 cmDO Shauna Atkinson Work Phone: 1(816)863-[address] [place], [place] 7273803-10-2023 11:40-0500 Body sfsiiovmjgv22.6 [degF]DO Shauna Atkinson Work Phone: 1(648)611-[address] [place], [place] 7273803-10-2023 11:40-0500 Body uylfqw31 kgDO Shauna Atkinson Work Phone: 1(716)363-[address] [place], [place] 7273812-12-2022 11:52-0500 Body sdymme391.86 cmDO Shauna Atkinson Work Phone: 1(406)[address]12-12-2022 11:52-0500 Body jvslaicetnl67.7 [degF]DO Shauna Atkinson Work Phone: 1(096)317-[address] [place], [place] 7273812-12-2022 11:52-0500 Body kgDO Shauna Atkinson Work Phone: 1(025)950-[address] [place], [place] 7273812-12-2022 11:52-0500 Diastolic blood xagfzdzk29 mm[Hg]DO Shauna Atkinson Work Phone: 1(983)880-[address] [place], [place] 7273812-12-2022 11:52-0500 Heart rate90 /Milton Atkinson Work Phone: 1(400)509-[address] [place], [place] 7273812-12-2022 11:52-0500 Respiratory rate18 /Milton Atkinson Work Phone: 1(149)227-[address] [place], [place] 7273812-12-2022 11:52-0500 SaO2% (BldA) [Mass fraction]96 %DO Shauna Atkinson Work Phone: [facility]12-12-2022 11:52-0500 Systolic blood xtiruusu506 mm[Hg]DO Shauna Atkinson Work Phone: 1(221)293-[address] [place], [place] 7273812-11-2022 16:07-0500 Body tbccle126.4 cmDO Shauna Atkinson Work Phone: 1(126)230-[address] [place], [place] 7273812-11-2022 16:07-0500 Body kltkgesfbkt03.1 [degF]DO Shauna Atkinson Work Phone: 1(041)912-[address] [place], [place] 7273812-11-2022 16:07-0500 Body tfedzu05 kgDO Shauna Atkinson Work Phone: 1(711)[address]12-11-2022 16:07-0500 Diastolic blood jlqixsvr02 mm[Hg]DO Shauna Atkinson Work Phone: 1(711)980-[address] [place], [place] 7273812-11-2022 16:07-0500 Heart rate87 /Milton Atkinson Work Phone: 1(064)197-[address] [place], [place] 7273812-11-2022 16:07-0500 Respiratory rate16 /Milton Atkinson Work Phone: 1(726)3-[address] [place], [place] 7273812-11-2022 16:07-0500 SaO2% (BldA) [Mass fraction]95 %DO Shauna Atkinson Work Phone: 1(211)209-[address] [place], [place] 7273812-11-2022 16:07-0500 Systolic blood wletzqwn490 mm[Hg]DO Shauna Atkinson Work Phone: 1(983)116-[address] [place], [place] 7273806-09-2022 09:14-0400 Body .86 cmNo PCP [facility] Work Phone: 1(711) 891-214506-09-2022 09:14-0400Body mass index (BMI) [Ratio] 34.18 kg/m2No PCP [facility] Work Phone: 1(674) 876-568706-09-2022 09:14-0400Body surface area Derived from formula1.72 m2No PCP [facility] Work Phone: [phone] 09:14-0400Body ycuhwovrgin98.5 [degF]No PCP [facility] Work Phone: [phone] 09:14-0400Body jnrrho00.77 kgNo PCP None [facility] Work Phone: [phone] 09:14-0400Diastolic blood yrnenzol09 mm[Hg] No PCP [facility] Work Phone: [phone] 09:14-0400Heart rate99 /minNo PCP [facility] Work Phone: [phone] 09:14-7062DcF3% (BldA) [Mass fraction]98 % No PCP [facility] Work Phone: [phone] 09:14-0400Systolic blood mm[Hg] No PCP [facility] Work Phone: [phone] 09:51-0400Body .86 cmNo PCP [facility] Work Phone: [phone] 09:51-0400Body mass index (BMI) [Ratio] 35.16 kg/m2No PCP [facility] Work Phone: [phone] 09:51-0400Body surface area Derived from formula1.74 m2No PCP [facility] Work Phone: [phone] 09:51-0400Body mnskmeqsbro25.7 [degF]No PCP [facility] Work Phone: [phone] 09:51-0400Body kyxkks86.95 kgNo PCP None [facility] Work Phone: [phone] 09:51-0400Diastolic blood thnqmucu17 mm[Hg] No PCP [facility] Work Phone: 1(507) 567-490905-26-2022 09:51-0400Heart rate78 /minNo PCP None [facility] Work Phone: 1(237) 774-324105-26-2022 09:51-2262BzQ6% (BldA) [Mass fraction]99 % No PCP XnwyIT[facility] Work Phone: 1(145) 971-633205-26-2022 09:51-0400Systolic blood hihacdii880 mm[Hg] No PCP GustIW[facility]mr[facility]ftt [facility] Work Phone: 1(313) 309-336504-19-2022 15:00-0400Diastolic blood hzsluhve59 mm[Hg] Cheng Saldaña [address]04-19-2022 15:00-0400Heart rate79 /minCheng Saldaña [address] [place], [place] 1801704-19-2022 15:00-0400Mean blood mmuczvqv41 mm[Hg]Cheng Saldaña [address] [place], [place] 1801704-19-2022 15:00-7059DeN1% (BldA) [Mass fraction]100 %Cheng Saldaña [address] [place], [place] 1801704-19-2022 15:00-0400 Systolic blood pukqojgo974 mm[Hg]Cheng Saldaña [address] [place], [place] 1801704-19-2022 14:00-0400 Diastolic blood ycowckkx49 mm[Hg]Cheng Saldaña [address] [place], [place] 1801704-19-2022 14:00-0400Heart rate94 /Christopher Saldaña [address] [place], [place] 1801704-19-2022 14:00-0400Mean blood mm[Hg]Cheng Saldaña [address] [place], [place] 1801704-19-2022 14:00-4636KeC4% (BldA) [Mass fraction]94 %Cheng Saldaña [address] [place], [place] 1801704-19-2022 14:00-0400 Systolic blood zqlvrpca072 mm[Hg]Cheng Saldaña [address] [place], [place] 1801704-19-2022 13:52-0400Heart rate85 /minCheng Saldaña [address] [place], [place] 1801704-19-2022 13:52-0400 Respiratory rate16 /Christopher Saldaña [address] [place], [place] 9345004-19-2022 13:52-6118MsN0% (BldA) [Mass fraction]98 %Cheng Saldaña [address] [place], [place] 9345004-19-2022 11:54-0400Body flsihshklps09.24 [degF]Cheng Saldaña [address] [place], [place] 1801704-19-2022 11:54-0400 Diastolic blood bamdkdmb16 mm[Hg]Cheng Saldaña [address] [place], [place] 1801704-19-2022 11:54-0400Heart pjji861 /Christopher Saldaña [address] [place], [place] 1801704-19-2022 11:54-0400 Systolic blood mm[Hg]Cheng Saldaña [address] [place] [address] Encounters Encounter DateEncounter TypeCare ProviderFacilityStart: 08-16-2025 End: 99-59-0058Fqqiek flowsheetCorey Milton DO Work Phone: [facility] OBGYNStart: 08-16-2025 End: 70-75-3236Jgvkis flowsheetCorey Milton DO Work Phone: [facility] [place] OBGYNStart: 08-16-2025 End: 79-41-4604Kevuewcv flow sheetCorey Milton DO Work Phone: NOMS [facility]and[facility] OBGYNComment on above:Gastroesophageal reflux disease with esophagitis without hemorrhage (Primary Dx); Second trimester ([facility]); 25 weeks gestation of ([facility]); Diabetes mellitus screening; size inconsistent with dates ([facility])Start: 08-16-2025 End: 72-34-7948dccwmrmwwmRVAVQ FAZIONot AvailableStart: 07-18-2025 End: 89-08-7685Tdwvnini flow Viky STANFORD Work Phone: NOQL Teodoro OBGYNComment on above:21 weeks gestation of ([facility]); Second trimester ([facility])Start: 07-18-2025 End: 38-18-1224nqdcpvzchpBBF RAMEYNot AvailableStart: 06-20-2025 End: 88-32-3978Gxtcda flowsheetCorey Milton DO Work Phone: [facility] OBGYNStart: 06-20-2025 End: 78-23-4620Clnhhq flowsheetCorey Milton DO Work Phone: noms [facility] OBGYNStart: 06-20-2025 End: 77-97-0314Tlfbxzpce Result EncounterCorey Milton DO Work Phone: noms External Department UnsolicitedStart: 06-20-2025 End: 56-30-4184Prkocr outpatient visit 15 minutesCorey Milton DO Work Phone: [facility] OBGYNComment on above:Vaginal discharge; STD exposure; Second trimester ([facility]); 17 weeks gestation of ([facility]); Screening, , for anatomic survey ([facility])Start: 06-20-2025 End: 39-46-9894ptbyajjumfNXDEC FAZIONot AvailableStart: 05-23-2025 End: 64-79-7409Sxosse Jasbir STANFORD Work Phone: [facility]OM[facility] BCP OBStart: 05-23-2025 End: 03-12-5849Zgshex flowsheetWandy STANFORD Work Phone: noms BCP OBStart: 05-23-2025 End: 55-17-6667Jfhphtqrn Result EncounterWandy STANFORD Work Phone: noms External Department UnsolicitedStart: 05-23-2025 End: 28-49-4712Hzjdhfja Result EncounterWandy STANFORD Work Phone: noms External Department UnsolicitedStart: 05-23-2025 End: 47-08-7303Uguzfuz encounter procedureWandy STANFORD Work Phone: noms HealthcareStart: 05-23-2025 End: 88-94-0523Whhtdpgn flow sheetWandy STANFORD Work Phone: noms BCP OBComment on above:Second trimester ([facility]); 13 weeks gestation of ([facility]); Well woman exam with routine gynecological exam; Vaginal discharge; STD exposure; Gastroesophageal reflux in ([facility])Start: 05-23-2025 End: 52-39-3813uuvqpwmzoqYXI ROBINNot AvailableStart: 04-24-2025 End: 94-78-0036Ghjpqvzaf Result EncounterCorey Milton DO Work Phone: noms External Department UnsolicitedStart: 04-24-2025 End: 60-36-7059Pbckblplm Result EncounterCorey Milton DO Work Phone: noms External Department UnsolicitedStart: 04-24-2025 End: 81-17-8277Nbmsjotv flow sheetCorey Milton DO Work Phone: noms BCP OBComment on above:First trimester ([facility]); 9 weeks gestation of ([facility])Start: 04-24-2025 End: 60-83-5389cjwcrhjahmVCSLL FAZIONot AvailableStart: 04-10-2025 End: 71-08-5578wnzhjsnojjSOPOE FAZIONot AvailableStart: 04-03-2025 End: 70-90-0511Hejcic digital e/m svc est pt <7 d 5-10 minutesCorey Milton DO Work Phone: noms BCP OBComment on above:Medication care plan discussed with patient; Nausea and vomiting, unspecified vomiting typeStart: 03-30-2025 End: 40-90-8421rglsjgrjwqSVDWD FAZIONot AvailableStart: 03-30-2025 End: 96-84-7919Mwquxk outpatient visit 5 minutesNoms Bcp Ob Milton NurseNOMS BCP OBComment on above:GA: 2m5bBkuiq: 03-30-2025 End: 59-05-7517vlhhwdsvvpDKNUP FAZIONot AvailableStart: 05-31-6795Ztrhjwspo encounterAlicia Patel Physicians Obstetrics/GynecologyStart: 01-20-2024 End: 23-83-3318utjiqhlyswOJHWY Park[facility] Healthtart: 52-98-5642Ujvjgg OnlyTiburcio Crawford DO Work Phone: [facility] Physicians Obstetrics/GynecologyComment on above:Medication management (Primary Dx)Start: 01-13-2024 End: 68-31-9265nkjxxebqscHUCFSSan [facility] Ambulatory PPGComment on above:Pelvic pain; DysmenorrheaStart: 01-13-2024 End: 64-29-0983Mewfrgydy for gynecological examination (general) (routine) without abnormal findingsADAMJOVI [facility] [employer] Work Phone: Start: 01-13-2024 End: 18-62-7883Tnmmkuc encounter procedureTiburcio Crawford [employer] Work Phone: [facility] CenterVirtifytart: 01-13-2024 End: 66-14-6447Qrfgjvtg preventive med est patient 18-39 yrsTiburcio Crawford DO Work Phone: [facility] Physicians Obstetrics/GynecologyComment on above:Well woman exam with routine gynecological exam (Primary Dx); Cervical smear, as part of routine gynecological examination; Pelvic pain; DysmenorrheaStart: 12-01-2023 End: 49-34-2067befqufwclxDtxbv Keller Other [employer] Other Start: 04-73-4916Dkbvzn outpatient visit 25 minutes Kayley MoPONCEMirta Urgent Care ClydeStart: 11-03-2023 End: 36-06-5915ayfrskvbxjIiklf Bailey Other [employer] Other Start: 23-45-3972Niqtjl outpatient visit 15 minutes Cheng Gaviria [facility] OrthopedicsStart: 09-28-2023 End: 45-25-6729nmhzdhwmlbXwahp Bailey Other [employer] Other Start: 95-49-0785Kxhqgb outpatient new 30 minutesCheng RhondaMirta Atkinson OrthopedicsStart: 09-24-2023 End: 50-98-1556Euvejdnir department patient visitJozacarias BossFacility:[facility] Campustart: 09-24-2023 End: 22-50-1130Fpczyqhfz department patient visitDO Shauna Atkinson Work Phone: [facility] Work Phone: Start: 02-23-2023 End: 39-77-8954hozwplhwvqMJ DOCTOR MISCFacility:L1Erqxy: 01-09-2023 End: 21-11-7627Comztxusa department patient visitAletomasz Wallace Facility:[facility] Campustart: 01-09-2023 End: 26-37-9059Ygckkuifh department patient visitDO Shauna Atkinson Work Phone: [facility] Work Phone: Start: 01-09-2023 End: 38-55-1578qyugjgmvvhJC DOCTOR MISCFacility:K6Fonyz: 01-05-2023 End: 77-54-0979lbfejltlriJA DOCTOR MISCFacility:M7Jobsc: 12-05-2022 End: 67-04-6487qpkwmejpacVY DOCTOR MISCFacility:D1Vnmda: 10-13-2022 End: 30-66-8364Mtivepsyg department patient visitDO Shauna Atkinson Work Phone: [facility] RoomStart: 10-12-2022 End: 41-12-3356Aaqjdvtmz department patient visitDO Shauna Atkinson Work Phone: [facility] RoomStart: 10-11-2022 End: 88-92-2348bwapelwmziVI GIOVANA GILMOREFacility:P6Ghqvc: 27-99-9265Vuipd UpdateNo PCP BjcoYI[facility] Work Phone: Start: 45-55-6721MMFKEBm PCP [facility] 44[address] Work Phone: Start: 25-35-1475AMA, Provider: Juan Taylor, Status: Pen, Time: 9:00 AMNo PCP [facility] Work Phone: Start: 13-98-0076Rpdcyy outpatient visit 15 minutesNo PCP [facility] Work Phone: Start: 64-12-2371Kusmz UpdateNo PCP [facility] Work Phone: Start: 96-97-0372Qmqvbo outpatient new 30 minutesNo PCP [facility] Work Phone: Start: 02-18-2022 End: 80-37-1012Tdwuqhtbc department patient visitCheng Saldaña [facility] Start: 59-29-9606Sfkbomfet dept visit high severity&threat anyicLaura ARGUELLOBaylor Scott & White [facility] CenterStart: 09-30-2018 End: 85-73-9023Kwacncj encounter procedureARLINEJOSE MEDINAAMNA ARGUELLOFacility:[id number] Procedures DateProcedureProcedure DetailPerforming ClinicianStart: 89-07-1604Gxrbi dip stick/tablet rgnt non-auto w/o micrscpCorey Milton DO Work Phone: Start: 43-84-0418Htydl dip stick/tablet rgnt non-auto w/o micrscpAmy Robin STAN[facility] Work Phone: Start: 99-16-7324TWS, SERUM, OPEN SPINA BIFIDACorey Milton DO Work Phone: Start: 47-12-4091Ociox dip stick/tablet rgnt non-auto w/o micrscpCorey Milton DO Work Phone: Start: 27-11-3715EZLPGTWHI VAGINITIS (HTRX)Wandy STAN[facility]ORD Work Phone: Start: 91-20-6836Nlfmc dip stick/tablet rgnt non-auto w/o micrscpAmy Robin [facility] Work Phone: Start: 70-23-0030YVQ,APTIMA HPV,AGE GDLNAmy Robin STANFORD Work Phone: Start: 02-51-7910CUJ TESTCorey Milton DO Work Phone: Start: 62-24-3261Sqzsn dip stick/tablet rgnt non-auto w/o micrscpCorey Milton DO Work Phone: Start: 97-08-8695Zaqnj depression screening assessment Tiburcio Crawford [employer] Work Phone: Start: 17-37-7582Nmgyugtwvpb observation [Identifier] in Cervix by Cyto stainTiburcio Crawford DO Work Phone: Start: 12-76-6324Kzvatbkqdi examination of kneeDO Shauna Atkinson Work Phone: Start: 20-87-9029Ozyzqtbwxnul echographyDO Shauna Atkinson Work Phone: Start: 16-73-5877Plmdyl echographyDO Shauna Atkinson Work Phone: Start: 88-60-9325Gyvirdprvf of wisdom toothKevin Piotr Tonsillar structure (palatine) (body structure)Cheng Saldaña Plan of Treatment DateCare ActivityDetailAuthorStart: 67-13-7872YCjH,Tdap and Td Vaccines (2 - Td or Tdap)DTaP,Tdap and Td Vaccines (2 - Td or Tdap)[facility] HospitalAcer Way[facility] SystemStart: 67-44-6441Szbwmfazu for malignant neoplasm of cervixPap SmearProParkview Health Montpelier Hospitalca [facility] SystemStart: 09-06-2025 End: 29-02-4773Iwtdywr encounter fowbobgpn24/05/2025 11:10 AM EST Routine [facility] [address] [place] [id number] Jorge Rose DO [address] [place], [place] [id number] [facility] OBGYNStart: 08-23-2025 End: 70-72-1246Gudwafxgwogz / ancillary services mhkoigwemr46/22/2025 8:00 AM EDT Ancillary Procedure [facility] ARCEGY[facility] [address] [place] [address] [facility] OBGYNStart: 08-16-2025 End: 27-30-0725WGU panel - Blood by Automated countCBC Lab Routine Diabetes mellitus screening Expected: 08/16/2025 (Approximate), Expires: 08/16/2026[facility] Work Phone: comment on above:Expected: 08/16/2025 (Approximate), Expires: 08/16/2026Start: 08-16-2025 End: 22-03-1189Kxubksvklvy of glucose 1 hour after glucose challenge for glucose tolerance testGlucose tolerance, 1 hour Lab Routine Diabetes mellitus screening Expected: 08/16/2025 (Approximate), Expires: 08/16/2026NONY HealthcareComment on above:Expected: 08/16/2025 (Approximate), Expires: 08/16/2026Start: 08-16-2025 End: 10-68-4762VY for pregnancyUS OB follow up transabdominal approach Imaging Routine size inconsistent with dates ([facility]) Expected: 08/16/2025, Expires: 12/17/2025[facility] Work Phone: comment on above:Expected: 08/16/2025, Expires: 12/17/2025Start: 08-16-2025 End: 14-00-1690Wsrckba encounter procedureNOMS Teodoro OBGYNComment on above: ArrivedStart: 07-18-2025 End: 47-91-7211Hhioxai encounter /16/2025 10:00 AM EDT Routine [facility] [address] [place] [address] Wandy Klely PA [address] [place] [address] [facility] OBGYNStart: 07-18-2025 End: 67-72-8426Atstsuxhaaya / ancillary services cberqfdhpx64/16/2025 9:00 AM EDT Ancillary Procedure [facility] [address] [place] [address] [facility] [place] OBGYNStart: 06-20-2025 End: 57-55-1016Qitlz fetoprotein, maternalAlpha fetoprotein, maternal Lab Routine Second trimester ([facility]) 17 weeks gestation of ([facility]) Expected: 06/20/2025 (Approximate), Expires: 06/20/2026[facility] Comment on above:Expected: 06/20/2025 (Approximate), Expires: 06/20/2026Start: 06-20-2025 End: 35-43-2926DY for pregnancyUS OB 14+ weeks anatomy scan Imaging Routine Screening, , for anatomic survey ([facility]) Expected: 06/20/2025, Expires: 09/20/2025[facility] HospitalComment on above:Expected: 06/20/2025, Expires: 09/20/2025Start: 06-20-2025 End: 37-53-0520Vhobksh encounter procedureNOMS BCP OBComment on above:Arrived Start: 05-23-2025 End: 85-82-5303Qrkwuqu encounter procedureNOMS BCP OBComment on above:Arrived Start: 04-24-2025 End: 97-31-1684Gfbbmcs encounter fghngvmvo60/23/2025 9:10 AM EDT Routine [facility] [address] [address] [place] [address] Jorge Rose, DO [address] [place] [address] N[facility] BCP OBStart: 04-10-2025 End: 75-47-4726Hvdozialjies / ancillary services bpmatxetvt09/09/2025 3:00 PM EDT Ancillary Procedure [facility] [address] [facility] [facility] [place] [address] [phone] BCP OBStart: 04-03-2025 End: 00-97-0689Cpqwgjz encounter /02/2025 8:00 AM EDT Office Visit [facility] [address] [address] [place] [address] Jorge Rose, DO [address] [place] [address] [facility] BCP OBStart: 03-30-2025 End: 78-15-0021GQD/RhABO/Rh Lab Routine Missed menses , unspecified gestational age Expected: 03/30/2025 (Approximate), Expires: 03/30/2026NOMS HealthcareComment on above:Expected: 03/30/2025 (Approximate), Expires: 03/30/2026Start: 03-30-2025 End: 64-64-6305Xpihe type and Indirect antibody screen panel - BloodType and screen Lab Routine Missed menses , unspecified gestational age Expected: 03/30/2025 (Approximate), Expires: 03/30/2026N[facility] HealthcareComment on above:Expected: 03/30/2025 (Approximate), Expires: 03/30/2026Start: 03-30-2025 End: 94-97-5772Egzhw of abuse panel - Urine by Screen methodRapid drug screen, urine Lab Routine , unspecified gestational age Encounter for supervision of normal first in first trimester Expected: 03/30/2025 (Approximate), Expires: 03/30/2026N[facility] HealthcareComment on above:Expected: 03/30/2025 (Approximate), Expires: 03/30/2026Start: 03-30-2025 End: 92-63-5056LV Pelvis transvaginalNOMS Healthcare Work Phone: comment on above:Expected: 03/30/2025, Expires: 06/30/2025Start: 29-55-6090Hcbnt BMI ScreeningAdult BMI ScreeningProLicking Memorial Hospital SystemStart: 05-21-0940Xcmekvlvkl ScreeningDepression ScreeningProLicking Memorial Hospital SystemStart: 51-16-7277Rnmylze ScreeningTobacco ScreeningProLicking Memorial Hospital SystemStart: 01-20-2024 End: 42-72-6286Yqmwyua encounter mqeudhifk81/20/2024 8:00 AM EDT Appointment [facility] - Ultrasound [address] [place] [address] Tiburcio Crawford, [address] [place] [address] [facility] - UltrasoundStart: 19-83-2679Jyxaqxxgls hospital visit by zugdlgxhj26/20/2024 8:00 AM EDT Hospital Encounter [facility] - Ultrasound [address] [place] [address] Tiburcio Crawford, [facility] [place] [id number] [facility] - UltrasoundStart: 01-13-2024 End: 01-99-3358Itdvglfpqloqx procedure, preparation of smear, genital sourcePap Smear Pathology and Cytology Routine Cervical smear, as part of routine gynecological examination Expected: 01/13/2024 (Approximate), Expires: 01/12/2025[facility] Work Phone: Comment on above:Expected: 01/13/2024 (Approximate), Expires: 01/12/2025Start: 01-13-2024 End: 84-77-0263IZ Pelvis transabdominal and transvaginalUltrasound pelvic with transvaginal Imaging Routine Pelvic pain Expected: 01/13/2024, Expires: 01/12ProLicking Memorial Hospital SystemComment on above:Expected: 01/13/2024, Expires: 01/12/2025Start: 94-37-0637Vsplk BMI Follow Up PlanAdult BMI Follow Up Plan [facility] SystemStart: 08-00-3967EAYUL-19 Vaccine ( season) COVID-19 Vaccine ()ProMMille Lacs Health [facility] SystemStart: 07-03-2023 Influenza vaccinationInfluenza VaccineK[facility]tering Health [facility] SystemStart: 10-12-2022 [facility] Campustart: 67-56-4699KES, Provider: Juan Taylor, Status: Pen, Time: 10:00 AMPOV, Provider: Juan Taylor, Status: Pen, Time: 10:00 FOYZ-Xqxzngy-LwlpydiTriHealth [facility] [address] Work Phone: Start: 05-78-6317MUG, Provider: Juan Taylor, Status: Pen, Time: 9:00 LHCD-Egxtmsd-FlnhkGettysburg Memorial Hospital Work Phone: Start: 28-27-9967Jntyqstwy for malignant neoplasm of cervixPap SmearProLicking Memorial Hospital SystemStart: 18-22-8897Eokdxpp CounselingTobacco CounselingMagruder Memorial HospitalAlanine aminotransferase [Enzymatic activity/volume] in Serum or Plasma by No addition of P-5'-PFCleveland Clinic Ctr Work Phone: Albumin [Mass/volume] in Serum or PlasmaProtestant Hospital Ctr Work Phone: Albumin/Globulin ratioProtestant Hospital Ctr Work Phone: Alkaline phosphatase [Enzymatic activity/volume] in Serum or PlasmaProtestant Hospital Ctr Work Phone: Anion gap measurementScci Hospital Lima Work Phone: Aspartate aminotransferase [Enzymatic activity/volume] in Serum or PlasmaScci Hospital Lima Work Phone: Bacteria identified in Urine by CultureUrine culture Microbiology Routine Missed menses Ordered: 03/30/2025[facility] HealthcareComment on above:Ordered: 03/30/2025asophils [#/volume] in Blood by Automated count [facility] Work Phone: Basophils/100 leukocytes in Blood by Automated count [facility] Work Phone: Bilirubin.total [Mass/volume] in Serum or Plasma [facility] Work Phone: Calcium [Mass/volume] in Serum or PlasmaScci Hospital Lima Work Phone: Carbon dioxide, total [Moles/volume] in Serum or [facility] Work Phone: End: 96-03-4380VSW W Auto Differential panel - BloodCBC auto differential Lab Routine Medication management 1 Occurrences starting 01/19/2024 until 01/18/2025 [facility] Work Phone: Comment on above:1 Occurrences starting 01/19/2024 until 5CBC W Auto Differential panel - BloodCBC and differential Lab Routine Missed menses , unspecified gestational age Ordered: 03/30/2025 [facility] HealthcareComment on above:Ordered: 03/30/2025HLAMYDIA TRACHOMATIS (GENITO/STI)CHLAMYDIA TRACHOMATIS (GENITO/STI) Lab Routine Vaginal discharge STD exposure Ordered: 05/23/2025[facility] Work Phone: comment on above:Ordered: 05/23/2025HLAMYDIA TRACHOMATIS (GENITO/STI)CHLAMYDIA TRACHOMATIS (GENITO/STI) Lab Routine STD exposure Ordered: 06/20/2025[facility] HealthcareComment on above:Ordered: 06/20/2025 Chloride [Moles/volume] in Serum or PlasmaProtestant Hospital Ctr Work Phone: End: 94-61-7373Pvdylmvbphaaf metabolic 2000 panel - Serum or PlasmaComprehensive metabolic panel Lab Routine Medication management 1 Occurrences starting 01/19/2024 until 01/18/2025ProLicking Memorial Hospital SystemComment on above:1 Occurrences starting 01/19/2024 until 5Creatinine and Glomerular filtration rate.predicted panel - Serum, Plasma or BloodProtestant Hospital Ctr Work Phone: Cytology Cervical or vaginal smear or scraping study Pap Smear Pathology and Cytology Routine Well woman exam with routine gynecological exam Ordered: 05/23/2025[facility] HealthcareComment on above:Ordered: 05/23/2025Eosinophils [#/volume] in [facility] Work Phone: Eosinophils/100 leukocytes in Blood by Automated count [facility] Work Phone: Erythrocyte distribution width [Ratio] by Automated countProtestant Hospital Ctr Work Phone: Erythrocytes [#/volume] in BloodProtestant Hospital Ctr Work Phone: Globulin [Mass/volume] in SerumProtestant Hospital Ctr Work Phone: Glucose [Mass/volume] in Serum or PlasmaProtestant Hospital Ctr Work Phone: Hematocrit [Volume Fraction] of BloodProtestant Hospital Ctr Work Phone: Hemoglobin [Mass/volume] in BloodProtestant Hospital Ctr Work Phone: Hemoglobin A1c/Hemoglobin.total in BloodHemoglobin A1c Lab Routine Missed menses , unspecified gestational age Ordered: 03/30/2025[facility] HealthcareComment on above:Ordered: 03/30/2025Hepatitis B virus surface Ag [Presence] in Serum or Plasma by ImmunoassayHepatitis B surface antigen Lab Routine Missed menses , unspecified gestational age Ordered : 03/30/2025[facility] HealthcareComment on above:Ordered: 03/30/2025Hepatitis C virus Ab [Presence] in Serum or Plasma by ImmunoassayHepatitis C antibody Lab Routine Missed menses , unspecified gestational age Ordered: 03/30/2025[facility] HealthcareComment on above:Ordered: 03/30/2025HIV-1/HIV-2 antigen/antibody combination immunoassayHIV-1 and HIV-2 antibodies Lab Routine Missed menses , unspecified gestational age Ordered: 03/30/2025[facility] HealthcareComment on above:Ordered: 03/30/2025Leukocytes [#/volume] corrected for nucleated erythrocytes in Blood by Automated counProtestant Hospital Ctr Work Phone: Leukocytes [#/volume] in BloodProtestant Hospital Ctr Work Phone: Lymphocytes [#/volume] in Blood by Automated count [facility] Work Phone: Lymphocytes/100 leukocytes in Blood by Automated count [facility] Work Phone: MCH [Entitic mass] by Automated countProtestant Hospital Ctr Work Phone: MCHC [Mass/volume] by Automated countProtestant Hospital Ctr Work Phone: MCV [Entitic volume] by Automated [facility] Work Phone: Measurement of renal functionProtestant Hospital Ctr Work Phone: Monocytes [#/volume] in Blood by Automated count [facility] Work Phone: Monocytes/100 leukocytes in Blood by Automated count [facility] Work Phone: Neisseria gonorrhoeae DNA [Presence] in Unspecified specimen by HUMBERTO with probe detectionNeisseria gonorrhea DNA probe, direct Lab Routine Vaginal discharge STD exposure Ordered: 05/23/2025[facility] HealthcareComment on above:Ordered: 05/23/2025Neisseria gonorrhoeae DNA [Presence] in Unspecified specimen by HUMBERTO with probe detectionNeisseria gonorrhea DNA probe, direct Lab Routine STD exposure Ordered: 06/20/2025[facility] HealthcareComment on above:Ordered: 06/20/2025Neutrophils [#/volume] in Blood by Automated [facility] Work Phone: Neutrophils/100 leukocytes in Blood by Automated count [facility] Work Phone: Nucleated erythrocytes [Presence] in Blood by Automated [facility] Work Phone: Patient [facility] Work Phone: Patient [facility] Work Phone: Platelet mean volume [Entitic volume] in Blood by Automated [facility] Work Phone: Platelets [#/volume] in BloodProtestant Hospital Ctr Work Phone: Potassium [Moles/volume] in Serum or PlasmaProtestant Hospital Ctr Work Phone: Protein [Mass/volume] in Serum or PlasmaProtestant Hospital Ctr Work Phone: Reagin Ab [Presence] in Serum by RPRRPR Lab Routine Missed menses , unspecified gestational age Ordered: 03/30/2025[facility] HealthcareComment on above:Ordered: 03/30/2025Rubella antibody, IgGRubella antibody, IgG Lab Routine Missed menses , unspecified gestational age Ordered: 03/30/2025[facility] HealthcareComment on above:Ordered: 03/30/2025Sodium [Moles/volume] in Serum or PlasmaProtestant Hospital Ctr Work Phone: SURESWAB(R) ADVANCED VAGINITIS PLUS, TMASURESWAB(R) ADVANCED VAGINITIS PLUS, TMA Pathology and Cytology Routine Vaginal discharge STD exposure Ordered: 05/23/2025[facility] HealthcareComment on above:Ordered: 05/23/2025SURESWAB(R) ADVANCED VAGINITIS PLUS, TMASURESWAB(R) ADVANCED VAGINITIS PLUS, TMA Pathology and Cytology Routine Vaginal discharge Ordered: 06/20/2025 [facility] Healthcare Work Phone: comment on above:Ordered: 06/20/2025Urea nitrogen [Mass/volume] in Serum or PlasmaScci Hospital Lima Work Phone: Payers DatePayer CategoryPayerPolicy [id number] Health Insurance [id number] 2023Medicaid [id number] 2.840.1.200322.3.57[id number] 2.16840.1.019633.3.57[id number] 2.16840.1.361861.3.57[id number] 2.840.1.315376.3.57[id number] 2.16840.1.863287.3.57[id number] 2.16840.1.808301.3.57[id number] 2.16840.1.668717.3.57[id number] 2.16840.1.771410.3.57[id number] 2.16.840.1.125525.3.57[id number] 2.0.1.385384.3.57[id number] 2.16840.1.960964.3.57[id number] 2.0.1.235140.3.57[id number] 2.0.1.761514.3.57[id number] 2..1.400069.3.57[id number] 2..1.278645.3.57[id number] 2..1.449055.3.57[id number] 2..1.888682.3.57[id number] 2..1.856259.3.579.2.1259 [id number] 2..1.281382.19Unknown [id number] 2..1.1[id number] 2.16.840.1.125386.3.579.2.531 Social History DateTypeDetailFacilityStart: 09-62-2435Xyjsadd smoking statusHeavy tobacco smoker (finding)[facility] CenterStart: 01-13-2024 End: 74-54-1134Xdm Assigned At BirthFeMercy Health West Hospital CenterStart: 10-12-2022 End: 30-05-8381Lfsrrak smoking status NHISSmoker (finding)[facility] CenterStart: 86-46-6695Fra Assigned At On License Of [facility] CenterFeSt. [facility] CenterStart: 73-26-6213Ostzzpc smoking status NHISSmokes tobacco daily [facility] SystemHistory of tobacco useCigarette SmokerK[facility]tering Health [facility] SystemStart: 12-10-2022 End: 14-48-3175Oolvvlcshx smoked current (pack per day) - Reported0.3PMartins Ferry Hospital SystemStart: 81-89-2884Vusnuoi use and exposureSmokeless tobacco non-user [facility] SystemStart: 82-44-2875Ejtjawl intakeEx-drinker (finding) [facility] SystemStart: 27-87-5277Khkpyulsmo depression screening exwcgljflu6QwnKrncko Health SystemStart: 75-03-8738Njfcaff Commentsocial [facility] SystemStart: 44-42-0560Dzpjnt identityIdentifies as female gender (finding)[facility] SystemStart: 80-12-8014Hwaidz orientation Heterosexual (finding)[facility] SystemStart: 93-16-8060Fajhmzf smoking status NHISEx-smokerNONY HealthcareStart: 82-00-2479ElowbasyqRZTY Healthcare Start: 77-60-1207Lnz assigned at birthNot on [facility] Clinical Notes 11-03-2021 to 08-16-2025 Note Date & ZmhsGhozAsgqdluo07-60-2195 History of Present illness Narrative* Macrina Ren NP - 08/16/2025 11:30 AM EDT Reason for Appointment: Patient ID: Sofia Andrews [...] nursing note reviewed. Exam conducted with a business development director present. Vitals: Estimated body mass index is 37.34 kg/m as calculated from the following: Height as of 01/03/22: 4' 11.5 . Weight as of this encounter: 188 lb. BP: 120/70 Patient's last menstrual period was 02/11/2025. ASSESSMENT & PLAN ICD-10-CM 1. Second trimester ([facility]) Z34.92 POCT urinalysis dipstick manually resulted 2. 25 weeks gestation of ([facility]) Z3A.25 3. Diabetes mellitus screening [...] REMOVED WISDOM TOOTH EXTRACTION documented in this encounterKindred HospitalFklqlcsste88-05-0282 History of Present illness Narrative* HIEN Sands - 07/18/2025 10:00 AM EDT Reason for Appointment: Patient ID: Sofia Andrews is a 24 y.o. female who presents for Routine Visit Patient presents today for Return OB appointment. MEDICATIONS Current Outpatient Medications Medication Instructions metoclopramide (REGLAN) 10 mg, Oral, 3 times daily omeprazole (PRILOSEC) 20 mg, Oral, Daily before breakfast, Do not crush or chew. ondansetron ODT (ZOFRAN-ODT) 4 mg, Every 6 hours PRN pregabalin (LYRICA) 200 mg, Daily Vit-Fe Fumarate-FA [...] reviewed. Vitals: Estimated body mass index is 36.42 kg/m as calculated from the following: Height as of 01/03/22: 4' 11.5 . Weight as of this encounter: 183 lb 6.4 oz. BP: 120/70 Patient's last menstrual period was 02/11/2025. ASSESSMENT & PLAN ICD-10-CM 1. 21 weeks gestation of ([facility]) Z3A.21 POCT urinalysis dipstick manually resulted 2. Second trimester ([facility]) Z34.92 POCT urinalysis dipstick manually resulted Return OB: Patient presents today for a routine obstetrics appointment. Patient is currently 21w3d . Patient states she is doing well but has complaints of being tired due to current . Patient has verbalizes frequent movement. Orders Placed This Encounter Procedures POCT urinalysis dipstick manually resulted Follow Up: Patient is to return to office in 4 week for routine OB appointment. Documented by HIEN Sands on behalf of: HIEN Sands documented in this encounterKindred [id number] History of Present illness Narrative* Chelsea Mejia LPN - 06/20/2025 10:50 AM EDT Reason for Appointment: Patient ID: Sofia Andrews [...] nursing note reviewed. Exam conducted with a business development director present. Vitals: Estimated body mass index is [...] gonorrhea DNA probe, direct 3. Second trimester ([facility]) Z34.92 POCT urinalysis dipstick manually resulted Alpha fetoprotein, maternal Alpha fetoprotein, maternal 4. 17 weeks gestation of ([facility]) Z3A.17 POCT urinalysis dipstick manually resulted Alpha fetoprotein, maternal Alpha fetoprotein, maternal 5. Screening, , for anatomic survey ([facility]) Z36.89 OB 14+ weeks anatomy scan Patient presents today for a routine obstetrics appointment. Patient is currently 17w3d with a Estimated Date of Delivery: 11/25/25.CIRILO obtained. Pt given msafp and anatomy scan orders. Pt toreturn in 4 weeks. Documented by Chelsea Mejia LPN on behalf of: Wandy Braxton PA-C documented in this encounterKindred [id number] History of Present illness Narrative* HIEN Sands - 05/23/2025 9:30 AM EDT Reason for Appointment: Patient ID: Sofia Andrews [...] ASSESSMENT & PLAN ICD-10-CM 1. Second trimester ([facility]) Z34.92 POCT urinalysis dipstick manually resulted CANCELED: POCT urinalysis dipstick manually resulted 2. 13 weeks gestation of ([facility]) Z3A.13 3. Well woman exam with routine [...] DNA probe, direct 6. Gastroesophageal reflux in ([facility]) O99.619 omeprazole (PriLOSEC) [address] capsule [...] behalf of: HIEN Sands documented in this encounterKindred [id number] History of Present illness Narrative* Ciarra Farfan LPN - 04/24/2025 9:10 AM EDT Reason for Appointment: Patient ID: Sofia Andrews [...] nursing note reviewed. Exam conducted with a business development director present. Vitals: Estimated body mass index is 31.48 kg/m as calculated from the following: Height as of 01/03/22: 4' 11.5 . Weight as of this encounter: 158 lb 8 oz. BP: 108/78 Patient's last menstrual period was 02/11/2025. ASSESSMENT & PLAN ICD-10-CM 1. First trimester ([facility]) Z34.91 2. 9 weeks gestation of ([facility]) Z3A.09 New OB: Patient presents today for 1st time obstetrics appointment with provider. Patient is currently 1e3hzotistxl. Patients history has been reviewed in great detail including any potential risks. Patientstated she currently has no complaints. Expectations throughout regarding labs, ultrasounds, and appointments have been discussed with the patient in detail. It was reiterated that the patient is to drink 6-8 glasses of water a day, eat 6 small meals a day, do not consume raw or undercooked meat, and stay away from [facility]. Patient has been consulted regarding any further [...] of: Jorge Rose DO documented in this encounterKindred [id number] History of Present illness Narrative* Ciarra Farfan LPN - 04/03/2025 8:00 AM EDT Reason for Appointment: Patient ID: Sofia Andrews is a 24 y.o. female who presents for No chief complaint on file. Patient presents today via telephone call for a telehealth appointment. Patients Phone #: [phone] (mobile) Date: 04/03/2025 Time: 10:53 AM of [...] voiced that when she does not take medicationshe is in debilitating pain. Discussed benefits verses risks. Discussed possibility of seeing [facility] to discuss management and level II ultrasound. Patient voiced that she spoke with PCP and PCP wants patient to discontinue medication. PCP is tapering patient off of medication currently. Advised patient that it would be recommended that MFM referral will be done now at this time to discussmedication management. Patient verbalized understanding and will continue with plan of care. Patient would also like to have other nausea medication options. Patient advised that Reglan will be sent to pharmacy to help with symptoms. Today's telehealth visit consisted of spending 9 minutes talking to patient on the phone. Documented by Ciarra Farfan LPN on behalf of: Jorge Rose DO documented in this encounterKindred [id number] History of Present illness Narrative* Shahida Sheikh LPN - 03/30/2025 2:00 PM EDT Reason for Appointment: Patient ID: Sofia Andrews [...] drink 6-8 glasses of water a day, eatno raw or undercooked meat, and stay away from [facility]. Patient has also been advised to not change litter boxes and eat 6 small meals a day. Patient has been consulted regarding the do's and don'ts ofpregnancy. Patient was given labs and all questions and concerns were answered. [place] given for patient to have obtained at 9 weeks with initial labs. Zofran and vitamins sent to [facility] patient. Patient to schedule a Telehealth [...] by: Shahida Sheikh LPN documented in this encounterKindred [id number] Miscellaneous Notes* Telephone Encounter - Alicia Ohara RN - 01/25/2024 2:38 PM EDT Patient called to inquire if we had the results from her ultrasound. She is advised that the ultrasound was normal. She is advised to call if further needs. KYA Reyes documented in this encounterMag[facility]03-[facility] Telephone encounter Note* Telephone Encounter - Alicia Ohara RN - 01/25/2024 2:38 PM EDT Patient called to inquire if we had the results from her ultrasound. She is advised that the ultrasound was normal. She is advised to call if further needs. KYA Reyes [facility]03-[facility] History of Present illness Narrative* Tiburcio Crawford DO - 01/19/2024 9:20 AM EDT CBC and CMP ordered per insurance request to refill her ibuprofen documented in this encounterMagruder [facility] Hospital03-13-2024 Miscellaneous Notes* Telephone Encounter - Tiburcio Crawford DO - 01/13/2024 10:13 PM EDT Patient will need a CBC and a CMP to check her blood counts and her liver/kidney function unknown need to continue the ibuprofen. documented in this encounterMagruder [facility] Hospital03-13-2024 Telephone encounter Note* Telephone Encounter - Tiburcio Crawford DO - 01/13/2024 10:13 PM EDT Patient will need a CBC and a CMP to check her blood counts and her liver/kidney function unknown need to continue the ibuprofen. [facility]03-[facility] History of Present illness Narrative* Tiburcio Crawford DO - 01/13/2024 9:00 AM EDT Subjective Patient ID: Sofia Andrews is a 23 y.o. female who is here today for annual well-woman exam. Patient does need a Pap smear today. She does report that she has been having regular menstrual cycles since her left salpingo- oophorectomy that was performed last year for a [...] past medical history, past social history, past surgicalhistory, problem list, and medication reconciliation was completed including current medication andpost discharge medication. Review of Systems Constitutional: negative [...] with food during her menses. She does havea prescription of these at home from her surgery last year. 4. if pelvic ultrasound is within normal limits briefly discuss treatment options for heavy painfulperiods with patient. She is to try the ibuprofen as above if this does not alleviate her symptoms she should follow-up to further discuss which treatment options she would like to pursue. documented in this encounterMagruder [facility] Hospital01-30-2024 Evaluation note* Encounter Date Diagnosis Assessment Notes Treatment Notes Treatment Clinical Notes Nov, Acute cough (ICD-10 - R05.1) Nov,cute viral bronchitis (ICD-10 - J20.8) Advised patient [...] rest, may use Tylenol/Motrin as needed for fever/discomfort, cool mist humidifier. May use Capmist as directed. Patient to follow up with PCP in 2-3 days if symptomsdo not improve. Work note provided. Immediate eval if SOB, difficulty breathing, chest pain, dizziness, or other concerning symptoms. Patient verbalizes understanding and is agreeable to treatment plan [facility] Other 01-02-2024 Evaluation note* Encounter Date Diagnosis Assessment Notes Treatment Notes Treatment Clinical Notes Nov, Patellofemoral pain syndrome of left knee (ICD-10 - M22.2X2) She continues to progress from her injury. I anticipate she will continue to heal. We discussed shecan return to work with shortened hours and weight bearing as tolerated for at least 6 months. She can follow up with me as needed. 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 Many of the patient's symptoms are coming from injury to the patella- femoral musculature and tendons. Treatment modalities were discussed [...] with the treatment plan. She will follow upin 6-8 weeks if needed. Sep,hondromalacia of left knee (ICD-10 - M94.262) [facility] Other 02-03-2023 NotePROCEDURE: XR HAND RT MIN [...] Electronically authenticated by: SHAUNA ANTHONY Date: 2022-12-05 12:22[facility]06-24-2022 NotePost Operative Note: PreOp Diagnosis: Chronic infection sebaceous cyst right chest Post-Procedure Diagnosis: Same Procedure: 1. Excision right chest cyst 5x2 cm 2. Complex closure 5cm 3. 4. 5. Surgeon: Claudia Resident/Fellow/Other Income Tax Preparer: Geraldine Anesthesia: General, 0.5% marciane Estimated Blood Loss (mL): 3cc Specimen: yes. right skin cyst Findings: sebaceous cyst removed without visible pus Patient Returned To/Condition: To RR in sat cond Attestation: Note Completion: Attending AttestationI was present for the entire procedure Electronic Signatures: Juan Taylor) (Signed 25-Apr-2022 10:40) Authored: Post Operative Note, Note Completion Last Updated: 25-Apr-2022 10:40 by Juan Taylor)[facility] 04-25-2022 NoteHistory & Physical Reviewed: [...] the note. I personally evaluated the patient [id number] Electronic Signatures: Sascha Chandler (Resident)) (Signed 25-Apr-2022 08:43) Authored: History & Physical Reviewed, ERAS, Consent, Note Completion Juan Taylor) (Signed 05-May-2022 13:45) Authored: Note Completion Co-Signer: History & Physical Reviewed, ERAS, Consent, Note Completion Last Updated: 05-May-2022 13:45 by Juan Taylor) References: 1. Data Referenced From Patient Profile - Preop v3 25-Apr-2022 08:07[facility]04-19-2022 Hospital Discharge instructions Patient Education 02/18/2022 14:56:49 Epidermal Cyst, Mvjs-hy-Usft Epidermal Cyst An epidermal cyst is a [...] yourself. Follow these instructions at home: Take jhgc-hln-syyrukx and prescription medicines only as told by [...] the cyst, or to remove it. Take idzg-yxu-uzpggpd and prescription medicines only as told by [...] 11/26/2005 Document Revised: 02/09/2020 Document Reviewed: 07/28/2019 [employer] Patient Education 2020 [employer]. Follow Up Care 02/18/2022 11:50:54 With:Sara MCGRATH, Portillo Address: When:02/21/2022 [facility]04-19-2022 Evaluation + Plan noteExtracted from: Title:ED NoteAuthor:Fabi Iraheta PA-CDate:02/18/22 1. Epidermoid cyst of skin o f chest (L72.0: Epidermal cyst) 2. Chest pain (R07.9: Chest pain, unspecified) Orders: albuterol, 2.5 mg, 3 mL, Soln-Inh, Inhalation, Once, Stop date 02/18/22 13:10:00 EDT, STAT, Start date 02/18/22 13:10:00 EDT aspirin, 162 mg = 2 tab(s), Tab-Chew, Oral, Once, Stop date 02/18/22 12:13:00 EDT, STAT, Start date02/18/22 12:13:00 EDT, 02/18/22 12:13:00 EDT morphine, 2 [...] With Cult Reflex XR Chest 2 Views [facility]01-02-2022 History of Present illness Narrative* Sofia Wiggins is a 21 year old female presenting to the breast center with a chronic right chest skin abscess that she would like excised. She has been receiving care at [facility]. She has had several I&D's of the [...] rest negative on 14 system review * Polisher Implant history: Menarche age16. 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 Diagnosed at age 50. * Maternal grandfather with lung and liver cancer [facility] Work Phone: [phone] 731-718501-02-2022 History of Present illness Narrative* Sofia Wiggins is a 21 year old female presenting to the breast center with a chronic right chest skin abscess that she would like excised. She has been receiving care at [facility]. She has had several I&D's of the abscess with placement of pigtail catheter fora month and / and antibiotic therapy. This started about 7 [...] rest negative on 14 system review * Polisher Implant history: Menarche age16. 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 Diagnosed at age 50. * Maternal grandfather with lung and liver cancer [facility] Work Phone: Evaluation noteNo assessment information available [facility] Work Phone: Evaluation note* Diagnosis Well woman exam with routine gynecological exam- Primary Routine gynecological examination Cervical smear, as part of routine gynecological examination Screening for malignant neoplasm of the cervix Pelvic pain Dysmenorrhea [facility] Diagnosis Pelvic pain Dysmenorrhea [facility]* Diagnosis Medication management- Primary [facility] Diagnosis Missed menses , unspecified gestational age Encounter for supervision of normal first in first trimester Nausea Nausea alone documented in this encounter [facility]* Diagnosis Medication care plan discussed with patient Nausea and vomiting, unspecified vomiting type [facility]* Diagnosis First trimester ([facility]) state, incidental 9 weeks gestation of ([facility]) documented [facility]* Diagnosis Second trimester ([facility]) state, incidental 13 weeks gestation of ([facility]) Well woman exam with routine gynecological exam Routine gynecological examination Vaginal discharge Leukorrhea, not specified as infective STD exposure Gastroesophageal reflux in ([facility]) [facility]* Diagnosis Vaginal discharge Leukorrhea, not specified as infective STD exposure Second trimester ([facility]) state, incidental 17 weeks gestation of ([facility]) Screening, , for anatomic survey ([facility]) Encounter for anatomic survey documented in this encounter [facility]* Diagnosis 21 weeks gestation of ([facility]) Second trimester ([facility]) state, incidental documented in [facility]* Diagnosis Gastroesophageal reflux disease with esophagitis without hemorrhage- Primary Second trimester ([facility]) state, incidental 25 weeks gestation of ([facility]) Diabetes mellitus screening Screening for diabetes mellitus size inconsistent with dates ([facility]) documented in this encounter [facility] HealthcareHistory general Narrative - Reported* Type Description Date Medical History None Surgical HistoryTonsilsSurgical HistoryWisdom Teeth [facility] Other History general Narrative - Reported* Type Description Date Medical History None Surgical HistoryTonsilsSurgical HistoryWisdom TeethSurgical HistoryC section Hospitalization HistorySee Above [facility] Other Hospital course Narrative No data available for this section [facility] Additional Instructions Take untw-jhn-wzxlpfp cough and cold medication as needed for symptoms May take the Zofran every 8 hours as needed Use your albuterol inhaler every 4 hours as needed for wheezing cough shortness of breath Increase oral fluids Follow-up with family doctor as needed Return to the ER for significant respiratory distress chest pain vomiting or any other concerns[facility] Work Phone: Hospital Discharge instructions Additional Instructions If your symptoms return/worsen or you develop any further concerns or symptoms please see your doctor or return to the emergency department immediately.[facility] Work Phone: Hospital Discharge instructions Additional Instructions Continue your Tylenol and ibuprofen at home Follow-up with your orthopedic physician Return if symptoms are worseSt[facility] Work Phone: InstructionsNot on filedocumented in [...] Directives No January 30, 2 020 10:03am Code StatusDate ActivatedDate InactivatedCommentsFull Code02/18/2023 2:12 PM 02/18/2023 10:40 PM Chief Complaint [...] section and content) DATE CREATED AUTHOR 10/11/2018 [facility] DATE CREATED AUTHOR AUTHOR'S ORGANIZ ATION 02/19/2022 [facility] DATE CREATED AUTHOR AUTHOR'S ORGANIZ ATION 05/05/2022 [facility] DATE CREATED AUTHOR AUTHOR'S ORGANIZ ATION 05/12/2022 [facility] DATE CREATED AUTHOR AUTHOR'S ORGANIZ ATION 02/25/2023 [facility] DATE CREATED AUTHOR AUTHOR'S ORGANIZ ATION 12/03/2023 [facility] DATE CREATED AUTHOR AUTHOR'S ORGANIZ ATION 12/11/2023 [facility] DATE CREATED AUTHOR AUTHOR'S ORGANIZ ATION 01/14/2024 [facility] DATE CREATED AUTHOR AUTHOR'S ORGANIZ ATION 01/28/2024 [facility] DATE CREATED AUTHOR AUTHOR'S ORGANIZ ATION 08/18/2025 [facility] EPIC Care Teams (unrecognized sec tion and content) Team Status: Inactive Member Role Status Dates Shauna Atkinson , Primary Care Provider Active Anant Davilarjean carlos ProviderActive Team Status: Active Member Role Status Dates Shauna Atkinson , Primary Care Provider Active Team Status: Inactive Member Role Status Dates Shauna Atkinson DO Primary Care Provider Active Payton Hernández , USER SUPPORT ANALYST-BCEmergency ProviderActive Team Status: Inactive Member Role Status Dates Shauna Atkinson , Primary Care Provider Active Anant Shanerjean carlos ProviderActive Team Status: Inactive Member Role Status Dates Shauna Atkinson , Primary Care Provider Active Byron Arvizu ProviderActiveTeam MemberRelationshipSpecialtyStart DateEnd Date Shauna Atkinson DO [address] [place] [address] PCP - GeneralFamily Medicine12/15/22Team MemberRelationshipSpecialtyStart DateEnd Date Shauna Atkinson DO [address] [place] [address] PCP - GeneralFamily Medicine12/15/22Team MemberRelationshipSpecialtyStart DateEnd Date Shauna Atkinson DO [address] [place] [address] PCP - GeneralFamily Medicine12/15/22Team MemberRelationshipSpecialtyStart DateEnd Date Shauna Atkinson DO [address] [place] [address] PCP - GeneralFamily Medicine12/15/22 Goals (unrecognized section and content) Goals may be documented in a n alternate section REASON FOR VISIT (unrecogniz ed section and content) ReasonCommentsAnnual ExamPt is here for annual exam. Last pap was several years at [place]. Pt is due for pap.Gynecologic ExamPelvic PainPt c/o pelvic pain with periods and without. Periods have been heavy.ReasonOnset DateCommentsMed Refill 4ReasonCommentsRoutine VisitReasonCommentsRoutine VisitSTI Screening FOR RECORDS PERTAINING TO PATIENTS WHO [...] BE BASED ON THE PRIMARY CLINICAL RECORDS. mLED [facility]. provides no warranty or guarantee of the accuracy or completeness of information in this document.
--- OUTSIDE RECORDS SUMMARY | 2025-08-23 09:10 | XMS_ITS | Encounter Summary ---
Author Organization [facility] Address [address] [place] [address] Care Team Providers Care Railway Shunter Name Role Phone Unavailable Primary Care Provider Unavailabl e Encounter Details DateTypeDepartmentCare Team (Latest Contact Info)Dehqzrchcds24/15/2025amboo flowsheet NOMJeannine RAMIREZ [address] [place] [address] Jorge Rose DO [address], [facility] Social History Tobacco UseTypesPacks/DayYears UsedDateSmoking Tobacco: FormerCigarettes Estimated Date of SzyagawzIxtvraqzZil82/24/2026ased on Ultrasound, FHR- 101Sex and Gender InformationValueDate RecordedSex Assigned at BirthNot on fileLegal KpfMvsasy70/15/2023 6:40 PM EDTGender IdentityNot on fileSexual OrientationNot on filedocumented as of this encounter Plan of Treatment DateTypeDepartmentCare Team (Latest Contact Info)Vgpbvfpiipe21/05/2025 10:30 AM ESTAncillary Procedure [facility] Teodoro [address]IREZ [address] [place] [address] 09/06/2025 11:10 AM ESTRoutine NOMJeannine RAMIREZ [address] [place] [address] Jorge Rose DO [address] [place] [address] documented as of this encounter Visit Diagnoses Not on filedocumented in this encounter
--- OUTSIDE RECORDS SUMMARY | 2025-08-23 09:10 | XMS_ITS | Encounter Summary ---
Author Organization [facility] Address [address] [place] [address] Care Team Providers Care Insurance Clerk Name Role Phone Unavailable Primary Care Provider Unavailabl e Encounter Details DateTypeDepartmentCare Team (Latest Contact Info)Kpvqttajfcf67/22/2025Orders Only [facility] Teodoro [address]IREZ [address] [place] [address] Ciarra Farfan LPN Encounter for follow-up ultrasound of anatomy ([facility]) Social History Tobacco UseTypesPacks/DayYears UsedDateSmoking Tobacco: FormerCigarettes Estimated Date of DknlnwxxTlmeirxmFnu68/24/2026ased on Ultrasound, FHR- 101Sex and Gender InformationValueDate RecordedSex Assigned at BirthNot on fileLegal KreEyfeze26/15/2023 6:40 PM EDTGender IdentityNot on fileSexual OrientationNot on filedocumented as of this encounter Plan of Treatment DateTypeDepartmentCare Team (Latest Contact Info)Bazoscqcvhs43/05/2025 10:30 AM ESTAncillary Procedure [facility] Teodoro [address]IREZ [address] [place] [address] 09/06/2025 11:10 AM ESTRoutine [facility] Teodoro [address]IREZ [address] [place] [address] Jorge Rose DO [address] [place] [address] NameTypePriorityAssociated DiagnosesDate/TimeUS OB limited 1+ fetusesImaging Routine Encounter for follow-up ultrasound of anatomy ([facility]) 08/23/2025 8:39 AM EDTNameTypePriorityAssociated DiagnosesOrder ScheduleUS OB limited 1+ fetusesImagingRoutine Encounter for follow-up ultrasound of anatomy ([facility]) Expected: 08/23/2025, Expires: 11/23/2025documented as of this encounter Visit Diagnoses Diagnosis Encounter for follow-up ultrasound of anatomy ([facility]) documented in this encounter
[2025-08-23 10:31] LABS: Hematocrit 39.4 % (36.0-48.0); Hemoglobin 12.8 g/dL (12.0-16.0); Immature Granulocytes Abs Auto 0.22 10^3/uL (0.00-0.03); Immature Granulocytes Pct Auto 1.4 % (0.0-0.5); Lymphocytes Absolute Auto 2.3 10^3/uL (1.2-3.8); Mean Corpuscular HGB Conc 32.5 g/dL (29.9-35.2); Mean Corpuscular Hemoglobin 30.4 pg (26.7-34.0); Mean Corpuscular Volume 93.6 fL (81.0-99.0); Platelet Count 264 10^3/uL (150-450); Red Blood Count 4.21 10^6/uL (4.20-5.40); White Blood Count 15.8 10^3/uL (4.0-11.0)
[2025-08-23 10:50] LABS: Glucose 1 Hour 113 mg/dL (<130)
== END 2025-08-23 09:04 | disposition home or self-care (01) ==
LOC: LAB 09:06
PROVIDERS: PCP Nurse Practitioner Family; Visit Provider Obstetrics & Gynecology
DX: Z13.1 Encounter for screening for diabetes mellitus (principal)
CPT/HCPCS: 36415; 82950; 85025

== ENCOUNTER 2025-10-30 20:22 | Outpatient (REF) | payer OTHER, SELFPAY ==
--- OUTSIDE RECORDS SUMMARY | 2025-01-23 11:00 | XMS_ITS ---
Author Organization [facility] in [place] Address [address] [place] [address] Care Team Providers Care Airport Tower Controller Name Role Phone Cecilia Valdez Primary Care Provider [phone] REASON FOR VISIT 6 mo f/u Encounters Encounter Location Date Provider Diagnosis [facility] [address] [place] [address] 01/23/2025 Cecilia Valedz Plan Of Treatment No Information Progress Notes * ANDREWSCarmenOB:[birth year] (24 yo F)Acc No.[id number]:01/23/2025 UNLOCKED PROGRESS NOTE Progress Note Patient: Sofia COOPER :?Cecilia HATFIELD), CNPDOB:2000 ???Age:24 Y???Sex:FemaleDate:01/23/2025Phone:[phone]:[address], [place], [place] Subjective: * Chief Complaints: * 1 . 6 mo f/u. * Medical History: Objective: * Vitals: Assessment: Plan: * Treatment: * * Electronic signature of Cecilia Valdez NP, ENGRAVER LETTER.COSMETOLOGIST APPRENTICE.[id number] on 10/30/2025 at 10:48 AM ESTSign off status: PendingVisit Status:?CANCPHONE (Cancelled Phone) * Provider: Bernadette Valdez (TTC), COSMETOLOGIST APPRENTICE Date: 0 01/23/2025 Generated for Printing/Faxing/eTransmitting on:?10/30/2025 10:48 AM EST
--- OUTSIDE RECORDS SUMMARY | 2025-10-17 10:00 | XMS_ITS | Encounter Summary ---
Author Organization [facility] Address [address] [place] [address] Care Team Providers Care Dinkey Engine Firer Name Role Phone Unavailable Primary Care Provider Unavailabl e Encounter Details DateTypeDepartmentCare Team (Latest Contact Info)Tbunrukdwym99/16/2025 10:00 AM ESTAncillary Procedure [facility]odoro [facility] [address] [facility] [place] [address] Excessive growth affecting management of in third trimester, single or unspecified fetus ([facility]) Social History Tobacco UseTypesPacks/DayYears UsedDateSmoking Tobacco: FormerCigarettes Estimated Date of EeqhwpqcHtjvdkqqTsu67/24/2026ased on Ultrasound, FHR- 101Sex and Gender InformationValueDate RecordedSex Assigned at BirthNot on fileLegal ZjvNyqubc50/15/2023 6:40 PM EDTGender IdentityNot on fileSexual OrientationNot on filedocumented as of this encounter Plan of Treatment DateTypeDepartmentCare Team (Latest Contact Info)Uwiuxbxoimz73/05/2026 11:00 AM ESTRoutine [facility] [address] [place] [address] Jorge Rose DO [address], [place] [address] documented as of this encounter Procedures Procedure NamePriorityDate/TimeAssociated DiagnosisCommentsUS OB FOLLOW UP TRANSABDOMINAL OSSTXCGAEsyszmq70/16/2025 10:21 AM EST Excessive growth affecting management of in third trimester, single or unspecified fetus ([facility]) documented in this encounter Results * US OB follow up transabdominal approach (10/17/2025 10:21 AM EST)Anatomical RegionLateralityModalityBodyUltrasoundSpecimen (Source)Anatomical Location / LateralityCollection Method / VolumeCollection TimeReceived Time10/19/2025 1:44 PM EST Impressions 10/19/2025 1:49 PM EST SINGLE LIVE INTRAUTERINE CORRESPONDING TO APPROXIMATELY 33 WEEKS 6 DAYS WITH AN EXPECTED DUE DATE OF NOVEMBER 29, 2025. NO GROSS ABNORMALITIES IDENTIFIED, WITHIN THE LIMITS OF THE STUDY. ELECTRONICALLY SIGNED BY: DO Chantale Johnson 10/19/2025 1:49 PM EST Ultrasound of US OB FOLLOW UP TRANSABDOMINAL APPROACH: 10/17/2025 9:50 AM CLINICAL HISTORY:large gestational. COMPARISON: September 06, 2025 Transabdominal ultrasound of the gravid uterus was performed. FINDINGS: A single live intrauterine is noted in cephalic position. cardiac activity measures approximately 153 beats per minute. The amniotic fluid volume appears within normal limits for gestation. The amniotic fluid index measures 17.21 cm. The following measurements were obtained: BPD 8.4 cm, HC 30.13 cm, AC 29.78 cm, FL 6.68 cm, which corresponds to an aggregate gestational age of 33 weeks 6 days. Estimated weight is 2303 g +/-345.45 g. The fetus is in the 29.7 percentile.. Procedure Note Anastasia Huggins DO - 10/19/2025 Ultrasound of US OB FOLLOW UP TRANSABDOMINAL APPROACH: 10/17/2025 9:50AM CLINICAL HISTORY:large gestational. COMPARISON: September 06, 2025 Transabdominal ultrasound of the gravid uterus was performed. FINDINGS: A single live intrauterine is noted in cephalic position. cardiac activity measures approximately 153 beats per minute. The amniotic fluid volume appears within normal limits for gestation. The amniotic fluid index measures 17.21 cm. The following measurements were obtained: BPD 8.4 cm, HC 30.13 cm, AC29.78 cm, FL 6.68 cm, which corresponds to an aggregate gestational age of33 weeks 6 days. Estimated weight is 2303 g +/-345.45 g. The fetus is in the 29.7 percentile.. IMPRESSION: SINGLE LIVE INTRAUTERINE CORRESPONDING TO APPROXIMATELY 33 WEEKS6 DAYS WITH AN EXPECTED DUE DATE OF NOVEMBER 29, 2025. NO GROSS ABNORMALITIES IDENTIFIED, WITHIN THE LIMITS OF THE STUDY. ELECTRONICALLY SIGNED BY: Anastasia Huggins DO Authorizing ProviderResult TypeResult StatusAmy Robin GUPTA OB US PROCEDURES Final Result documented in this encounter Visit Diagnoses Diagnosis Excessive growth affecting management of in third trimester, single or unspecified fetus ([facility]) documented in this encounter
--- OUTSIDE RECORDS SUMMARY | 2025-10-17 10:30 | XMS_ITS | Encounter Summary ---
Author Organization [facility] Address [address] [place] [address] Care Team Providers Care Iron Pourer Name Role Phone Unavailable Primary Care Provider Unavailabl e Reason for Visit * ReasonCommentsRoutine Visit Encounter Details DateTypeDepartmentCare Team (Latest Contact Info)Ceblkjrbmzj29/16/2025 10:30 AM ESTRoutine [facility] [address] [place] [phone] Jorge Rose DO [address] [place] [address] Third trimester ([facility]); 34 weeks gestation of ([facility]) Social History Tobacco UseTypesPacks/DayYears UsedDateSmoking Tobacco: FormerCigarettes Estimated Date of SvrviwccZougkprvXka49/24/2026ased on Ultrasound, [facility]- 101Sex and Gender InformationValueDate RecordedSex Assigned at BirthNot on fileLegal OrsWcqooq20/15/2023 6:40 PM EDTGender IdentityNot on fileSexual OrientationNot on filedocumented as of this encounter Last Filed Vital Signs Vital SignReadingTime TakenCommentsBlood Paorvgpj031/7210/17/2025 11:06 AM EST Pulse--Temperature--Respiratory Rate--Oxygen Saturation--Inhaled Oxygen Concentration--Nljuof28.8 kg (198 lb)10/17/2025 11:06 AM ESTHeight--Body Mass Index39.3203 12:00 PM ESTdocumented in this encounter Progress Notes * Chelsea Mejia, BAGGAGEMASTER - 10/17/2025 10:30 AM EST Reason for Appointment: Patient ID: Sofia Mcgowan is a 24 y.o. female who presents for Routine Visit Patient presents today for Return OB appointment. MEDICATIONS Current Outpatient Medications Medication Instructions metoclopramide (REGLAN) 10 mg, Oral, 3 times daily before meals, Take 1 tablet by mouth 30 minutes prior to meals 3 times daily as needed for nausea. omeprazole (PRILOSEC) 20 mg, Oral, Daily before breakfast, Do not crush or chew. ondansetron ODT (ZOFRAN-ODT) 4 mg, Oral, Every 6 hours PRN pantoprazole (PROTONIX) 20 mg, Oral, Daily before breakfast, Do not crush, chew, or split. pregabalin (LYRICA) 200 mg, Daily Vit-Fe Fumarate-FA ( Vitamins) 28-0.8 MG tablet 1 tablet, Oral, Daily promethazine (PHENERGAN) 12.5 mg, Oral, Every 6 hours PRN, Take 1 tablet by mouth every 6 hours as needed for nausea. ALLERGIES Allergies Allergen Reactions Ketorolac Anaphylaxis Other Reaction(s): hives Other Reaction(s): Hives Penicillins Anaphylaxis Other Reaction(s): Unknown Other Reaction(s): hives Tramadol Anaphylaxis Other Reaction(s): hives Other Reaction(s): Hives Pollen Extract Toradol [Ketorolac Tromethamine] Wound Dressing [...] nursing note reviewed. Exam conducted with a solder sprayer present. Vitals: Estimated body mass index is 39.32 kg/m?? as calculated from the following: Height as of 01/03/22: 4' 11.5 . Weight as of this encounter: 198 lb. BP: 118/72 Patient's last menstrual period was 02/11/2025. Assessment/Plan ICD-10-CM 1. Third trimester ([facility]) Z34.93 POCT urinalysis dipstick manually resulted 2. 34 weeks gestation of ([facility]) Z3A.34 Assessment/Plan Return OB: Patient presents today for a routine obstetrics appointment. Patient is currently 34w3d . Patient states she is doing well but has complaints of being tired due to current . Patient has verbalizes frequent movement. labor precautions was discussed/given and patient was instructed to perform kick counts three times a day. Pt recently tested positive for hep B will redraw and test closer to delivery Orders Placed This Encounter Procedures POCT urinalysis dipstick manually resulted Follow Up: Patient is to return to office in 2 week for routine OB appointment. Documented by Chlesea Mejia LPN on behalf of: Jorge Rose DO documented in this encounter Plan of Treatment DateTypeDepartmentCare Team (Latest Contact Info)Vmdmplpbtqp09/05/2026 11:00 AM ESTRoutine [facility] [address] [place] [phone] Jorge Rose DO [address] [place] [address] documented as of this encounter Procedures Procedure NamePriorityDate/TimeAssociated DiagnosisCommentsPOCT URINALYSIS XZWHOYCUMbwfqqc85/16/2025 11:07 AM EST Third trimester ([facility]) documented in this encounter Results * (ABNORMAL) POCT urinalysis dipstick manually resulted (10/17/2025 11:07 AM EST)ComponentValueRef RangeTest MethodAnalysis TimePerformed AtPathologist SignatureColor, UAAmberClarity, UAClearGlucose, UANegativeNegative - 2000(110) ++++ mg/dLBilirubin, UANegativeNegative - 4(70) +++ mg/dLKetones, UANegative Negative - 160(16) ++++ mg/dLSpec Grav, UA1.0151 - 1.03Blood, UAPositive Negative - 50 Mando/mcLpH, UA6.55 - 9Protein, UANegativeNegative - 2000(20) ++++ mg/dLUrobilinogen, UA1.00.2 - 12 mg/dLLeukocytes, UA1+Negative - 500+++ Maddy/mcLNitrite, UANegativeNegative - PositiveSpecimen (Source)Anatomical Location / LateralityCollection Method / VolumeCollection TimeReceived Time Urine10/17/2025 11:07 AM EST Narrative Authorizing ProviderResult TypeResult StatusCoregee Rose DOPOINT OF CARE TEST ENTER/EDIT ORDERABLESFinal Result documented in this encounter Visit Diagnoses Diagnosis Third trimester ([facility]) state, incidental 34 weeks gestation of ([facility]) documented in this encounter
--- OUTSIDE RECORDS SUMMARY | 2025-10-30 10:50 | XMS_ITS | Encounter Summary ---
Author Organization [facility] Address [address] [place] [address] Care Team Providers Care Email Designer Name Role Phone Unavailable Primary Care Provider Unavailabl e Reason for Visit * ReasonCommentsRoutine Visit Encounter Details DateTypeDepartmentCare Team (Latest Contact Info)Govbupjuegh87/29/2025 10:50 AM ESTRoutine [facility] [address] [place], [phone] Wandy Kelly PA [address] [place] [address] Third trimester ([facility]); 36 weeks gestation of ([facility]) Social History Tobacco UseTypesPacks/DayYears UsedDateSmoking Tobacco: FormerCigarettes Estimated Date of KjnlfazeYaxwhuggIdv88/24/2026ased on Ultrasound, [facility]HR- 101Sex and Gender InformationValueDate RecordedSex Assigned at BirthNot on fileLegal TqtBglpjq16/15/2023 6:40 PM EDTGender IdentityNot on fileSexual OrientationNot on filedocumented as of this encounter Last Filed Vital Signs Vital SignReadingTime TakenCommentsBlood Jqcsgcbp848/7610/30/2025 11:31 AM EST Pulse--Temperature--Respiratory Rate--Oxygen Saturation--Inhaled Oxygen Concentration--Maqesi45.6 kg (202 lb)10/30/2025 11:31 AM ESTHeight--Body Mass Index40.1203 12:00 PM ESTdocumented in this encounter Progress Notes * HIEN Sands - 10/30/2025 10:50 AM EST Reason for Appointment: Patient ID: [...] Objective: Physical Exam Constitutional: Appearance: Normal appearance. Genitourinary: Right Adnexa: not tender and no mass present. Left Adnexa: not tender and no mass present. No cervical discharge. Breasts: Breasts are soft. Right: Normal. Left: Normal. HENT: Head: Normocephalic. Nose: Nose normal. Mouth/Throat: Mouth: Mucous membranes are moist. Cardiovascular: Rate and Rhythm: Normal rate. Pulmonary: Effort: Pulmonary effort is normal. Abdominal: General: Bowel sounds are normal. Palpations: Abdomen is soft. Musculoskeletal: General: Normal range of motion. Cervical back: Normal range of motion. Neurological: General: No focal deficit present. Mental Status: She is alert. Skin: General: Skin is warm and dry. Psychiatric: Mood and Affect: Mood normal. Vitals and nursing note reviewed. Exam conducted with a flight engineer instructor present. Vitals: Estimated body mass index is 39.32 kg/m?? as calculated from the following: Height as of 01/03/22: 4' 11.5 . Weight as of 10/17/25: 198 lb. BP: Patient's last menstrual period was 02/11/2025. Assessment/Plan ICD-10-CM 1. Third trimester ([facility]) Z34.93 POCT urinalysis dipstick manually resulted CULTURE, GROUP B STREP WITH SUSCEPTIBLITY CULTURE, GROUP B STREP WITH SUSCEPTIBLITY 2. 36 weeks gestation of ([facility]) Z3A.36 Assessment/Plan Patient is doing well but has complaints of being tired and having maternal discomfort due to . Patient verbalized frequent movement and was instructed to perform kick counts three times per day. labor precautions were given, LARC consent was signed/ and declined, and GBS was obtained. Cervical check was performed and patient is 2cm dilated. Orders Placed This Encounter Procedures CULTURE, GROUP B STREP WITH SUSCEPTIBLITY POCT urinalysis dipstick manually resulted Follow Up: Patient is to return to office in 1 week for routine OB appointment Documented by Najma Perez MA on behalf of: HIEN Sands documented in this encounter Plan of Treatment DateTypeDepartmentCare Team (Latest Contact Info)Fynynzmnzye10/05/2026 11:00 AM ESTRoutine [facility] [address] [phone] Jorge Rose, [address] [place] [address] NameTypePriorityAssociated DiagnosesOrder ScheduleCULTURE, GROUP B STREP WITH SUSCEPTIBLITYLabRoutine Third trimester ([facility]) Expected: 10/30/2025 (Approximate), Expires: 10/30/2026documented as of this encounter Procedures Procedure NamePriorityDate/TimeAssociated DiagnosisCommentsPOCT URINALYSIS NROMOTRUBeblxpn48/29/2025 12:02 PM EST Third trimester ([facility]) documented in this encounter Results * (ABNORMAL) POCT urinalysis dipstick manually resulted (10/30/2025 12:02 PM EST)ComponentValueRef RangeTest MethodAnalysis TimePerformed AtPathologist SignatureColor, UAYellowClarity, UAClearGlucose, UANegativeNegative - 1999(110) ++++ mg/dLBilirubin, UANegativeNegative - 4(70) +++ mg/dLKetones, UA NegativeNegative - 160(16) ++++ mg/dLSpec Grav, UA1.0201 - 1.03Blood, UA NegativeNegative - 50 Mando/mcLpH, UA7.05 - 9Protein, UANegativeNegative - 2000(20) ++++ mg/dLUrobilinogen, UA1.00.2 - 12 mg/dLLeukocytes, UA3+Negative - 500+++ Maddy/mcLNitrite, UANegativeNegative - PositiveSpecimen (Source) Anatomical Location / LateralityCollection Method / VolumeCollection Time Received YlboThoeh57/29/2025 12:02 PM EST Narrative Authorizing ProviderResult TypeResult StatusWandy Kelly [facility] PEORIAOINT OF CARE TEST ENTER/EDIT ORDERABLESFinal Result documented in this encounter Visit Diagnoses Diagnosis Third trimester ([facility]) state, incidental 36 weeks gestation of ([facility]) documented in this encounter
--- OUTSIDE RECORDS SUMMARY | 2025-10-30 20:42 | XMS_ITS | CCD ---
Author Organization [facility] Care Team Providers Care Customer Account Administrator Name Role Phone ARGUELLO JAGDISH CHILO Unavailable Unavailable Wandy Dorado Primary Care Physician [phone] None, No PCP Unavailable Unavailable Unavailable Unavailable DO Shauna Atkinson Primary Care Provider DO Martinez Kumar Emergency Provider [phone] Betty, [facility] Payton Brooks Emergency Provider DO Joseph Wallace Emergency Provider [phone] DR GIOVANA GILMORE Admitting Unavailabl cecilia GILMORE, DR GIOVANA Kirby Attending Unavailabl e MISC, DR ISRAEL Primary Care Unavailable MISC, DR ISRAEL Primary Care Unavailable PAY ., DR ALMAZAN Admitting Unavailable PAY ., DR ALMAZAN Attending Unavailable MARYJT, DR SHAUNA Foss Consulting Unavailable PAY ., DR ALMAZAN Consulting Unavailable [facility] DR ISRAEL Primary Care Unavailable VIDAL BASS [...] Attending Unavailable VIDAL BASS Consulting Unavailable DO Sahuna Atkinson Primary Care Provider MD Alton Boss Emergency Provider Cheng Cruz Unavailable Kayley Mo Unavailable Alton Boss Attending Unavailable Shauna Atkinson Primary Care Unavailable Alton Boss Admitting Unavailable Joseph Wallace Admitting Unavailable Joseph Wallace Attending Unavailable Shauna Atkinson Primary Care Unavailable TIBURCIO CRAWFORD Attending Unavailable SHAUNA ATKINSON P Referring Unavailable SHAUNA ATKINSON P Primary Care Unavailable TIBURCIO CRAWFORD Referring Unavailable SHAUNA ATKINSON Primary Care Unavailable TIBURCIO CRAWFORD Attending Unavailable TIBURCIO CRAWFORD Referring Unavailable SHAUNA ATKINSON P Primary Care Unavailable Demetrio SAUCEDO Shauna P Primary Care Provider [phone] Unavailable Primary Care Provider UnavailJORGE Palacios Attending Unavailable WANDY KELLY Attending Unavailable MILTON, JORGE Attending Unavailable WANDY KELLY Attending Unavailable MILTON, JORGE Attending Unavailable MILTON, JORGE Attending Unavailable Allergies Allergy ClassificationReported Allergen(s)Allergy TypeDate of OnsetReaction(s) Facility (2 sources)Penicillin; Translations: [penicillin]Drug AllergyAnaphylaxis (disorder)[facility] (1 source)PollenDrug allergyRespiratory function (observable entity)[facility] (5 sources)Penicillins Cross [employer]; Translations: [Penicillins Cross React[employer]]Allergy to drug (finding)[facility] Work Phone: (20 sources)Ketorolac; Translations: [ketorolac]Drug Zdpnauq54-94-8871gffvc, AnaphylaxisSt[facility] (20 sources)Penicillins; Translations: [Penicillins]Propensity to adverse ctfyvnmpi70-69-8315NchwtqggqrwPuxqujpnsC[facility] (20 sources)traMADol; Translations: [tramadol]Drug Feqlwiq90-63-5139HooxypytbphSelect [facility] (1 source)KetorolacDrug AllergyClermont County [facility] (3 sources)penicillAMINEDrug AllergySaint John's Bree[facility] PhotoThera Other (1 source)penicillAMINEDrug Opcxtnu95-89-1752VulhsnvloSt. Rita'S Hospital Repository (6 sources)Adhesive agent; Translations: [ADHESIVE]Propensity to adverse reactions to drug (disorder)94-82-7400Kimnc (See Comments)[facility] (6 sources)Pollen; Translations: [POLLEN EXTRACTS]Propensity to adverse reactions to drug (disorder)19-35-9639GgqPexnhy Repository (20 sources)Ketorolac trometamolPropensity to adverse xfjwveujd51-33-2190[facility] (10 sources)PollenPropensity to adverse plnnqpxsi30-61-1924[facility] (10 sources)Wound Dressing AdhesivePropensity to adverse fgmzarevd84-41-8632IJ[facility] Medications Current Medications MedicationDrug Class(es)DatesSig (Normalized)Sig (Original)acetaminophen 325 mg / HYDROcodone bitartrate 5 mg oral tablet (1 source)Opioid AgonistStart: 10-78-9776bamv 1 tablet by mouth every four hours Hydrocodone-Acetaminophen Active 1 TAB PO Q4H 3 2 September 24, 2023Start: 46-57-2979juvg 1 tablet by mouth every four hoursHydrocodone-Acetaminophen Active 1 TAB PO Q4H 3 September 24, [id number] 60 actuat albuterol 0.09 mg/actuat metered dose inhaler (7 sources)beta2-Adrenergic AgonistStart: 60-80-3292xrun 2 puff(s) by inhalation every four to six hours as neededAlbuterol Sulfate HFA 108 (90 Base) MCG/ACT 2 puffs as needed Inhalation every 4-6 hours for 14 days Nov, ActiveStart: 48-29-0435yfnj 2 puff(s) by inhalation every six hours as needed for wheezing albuterol (PROVENTIL HFA;VENTOLIN HFA) 90 mcg/actuation inhaler Indications: Asthma, unspecified asthma severity, unspecified whether complicated, unspecified whether persistent Inhale 2 puffs every 6 (six) hours as needed for wheezing. 18 g 1 08/20/2023 ActiveStart: 20-96-2347Ycbnvardx Sulfate Active 2 PUFF INHALATION MORNING HYPOGLYCEMIC January 09, 2023 12:00amazithromycin 500 mg oral tablet (2 sources)Macrolide AntimicrobialStart: 06-22-2025 End: 93-19-7715swkh 1 tablet by mouth once dailyazithromycin (Zithromax) 500 MG tablet Indications: Bacterial infection due to mycoplasma Day 1: Take 2 tablets PO onetime dose; Day 2,3,4: Take 1 tablet daily 5 tablet 06/22/2025 07/18/2025 Discontinueddextromethorphan hydrobromide 15 mg / guaiFENesin 400 mg / pseudoephedrine hydrochloride 60 mg oraltablet (1 source)alpha-Adrenergic Agonist, Uncompetitive Z-llhlpu-F-aspartate Receptor Antagonist, Sigma-1 AgonistStart: 89-68-9824snaf 4 tablets by mouth every twenty-four hours as neededCapmist DM 60-15-400 MG as needed Orally every 4-6 hours as needed, max 4 tablets in 24 hours for 5days Nov, Activedocusate sodium 100 mg oral capsule (4 sources)Start: 82-13-5641oepq 1 capsule by mouth in the morning, then take 1 capsule by mouth at bedtimedocusate sodium (COLACE) 100 mg capsule Take 1 capsule (100 mg total) by mouth in the morning and 1capsule (100 mg total) before bedtime. 30 capsule 0 02/18/2023 Activeibuprofen 800 mg oral tablet (17 sources)Nonsteroidal Anti-inflammatory DrugStart: 09-14-6931nknq 1 tablet by mouth every eight hours as needed for painibuprofen (MOTRIN) 800 mg tablet Indications: Pelvic pain , Dysmenorrhea Take 1 tablet (800 mg total) by mouth every 8 (eight) hours as needed for pain. 30 tablet 2 01/19/2024 ActiveStart: 10-14-2023 End: 73-22-9354xwiz 1 tablet by mouth every eight hours as needed for pain ibuprofen (MOTRIN) 800 mg tablet Indications: Pelvic pain , Dysmenorrhea Take 1 tablet (800 mg total) by mouth every 8 (eight) hours as needed for pain. 30 tablet 2 10/14/2023 01/13/2024 Discontinued(Reorder)Start: 01-08-2022 End: 75-01-1049osqh 600 mg by mouth every six hoursIbuprofen Discontinued 600 MG PO Q6H January 08, 2022 12:00am January 12, 2022 9:29amStart: 60-53-1443mwrx 1 tablet by mouth three times daily at mealtime as neededIbuprofen 800 MG 1 tablet with food or milk as needed Orally Three times a day for 30 days Jan, Not-Taking/PRNInhalational Spacing Device (Breatherite Mdi Spacer) spacer (2 sources)Start: 81-14-7357Fyuamtekhnlm Spacing Device (Breatherite Mdi Spacer) spacer Active EACH MISCELLANE January 092:00amMarijuana (2 sources)Start: 12-50-5973Kecjhlinb Active January 09, 2023 12:00am metoclopramide 10 mg oral tablet (16 sources)Dopamine-2 Receptor AntagonistStart: 04-03-2025 End: 31-27-9330uzii 1 tablet by mouth in the morning, [...] 90 tablet 2 04/03/2025 08/16/2025 Discontinued (Therapy completed)[place] (No Known Home Meds) (1 source)Start: 42-42-0283Mq Name (No Known Home Meds) Active October 13, 2022 12:00amomeprazole 20 mg delayed release oral capsule (15 sources)Proton Pump InhibitorStart: 05-23-2025 End: 26-88-8432pymf 1 capsule by mouth before mealtimeomeprazole (PriLOSEC) [address] capsule Indications: Gastroesophageal Reflux Disease , Heartburn Take 1 capsule (20 mg) by mouth in the morning. Take before meals. Do not crush or chew. 30 capsule 3 06/22/2025 Activeondansetron 4 mg disintegrating oral tablet (20 sources)Serotonin-3 Receptor AntagonistStart: 06-22-2025 End: 37-55-5008jbvz 1 tablet by mouth every six hours as needed for nausea and vomitingondansetron ODT (Zofran-ODT) 4 MG disintegrating tablet Take 4 mg by mouth every 6 (six) hours if needed for nausea or vomiting 06/22/2025 08/16/2025 Discontinued (Therapy completed)Start: 03-30-2025 End: 34-43-2264bhgj 1 tablet by mouth every six hours as needed for nausea and vomiting and nausea and nauseaondansetron ODT (Zofran-ODT) 4 MG disintegrating tablet Indications: Nausea Take 1 tablet (4 mg) bymouth every 6 (six) hours if needed for nausea or vomiting 30 tablet 3 03/30/2025 04/29/2025 ActiveStart: 22-54-4354hblt 1 tablet by mouth once daily as needed for nauseaondansetron (ZOFRAN) 4 mg tablet Indications: Cyst of left ovary , Nausea Take 1 tablet (4 mg total) by mouth daily as needed for nausea or vomiting. 30 tablet 1 01/20/2023 ActiveStart: 87-88-7904ljoy 4 mg by mouth once dailyOndansetron Active 4 MG PO Daily January 09, 2023 12:00amStart: 26-57-7163srfg 1 tablet by mouth three times daily as neededOndansetron 8 MG Oral Tablet Disintegrating DISSOLVE 1 (ONE) TABLET on tongue THREE TIMES DAILY NEEDED Quantity: 12 Refills: 0 Ordered: 28-Oct-2021 DO Start : 28-Oct-2021 Activepantoprazole 20 mg delayed release oral tablet (4 sources)Proton Pump InhibitorStart: 08-16-2025 End: 66-56-9617kfne 1 tablet by mouth before mealtimepantoprazole (Protonix) 20 MG EC tablet Indications: Gastroesophageal reflux disease with esophagitis without hemorrhage Take 1 tablet (20 mg) by mouth in the morning. Take before meals. Do not crush, chew, or split. 30 tablet 11 08/16/2025 08/16/2026 Active predniSONE 20 mg oral tablet (1 source)Start: 80-96-5585kkci 1 tablet by mouth every twelve hoursprednisone 20 MG 1 tablet Orally BID for 5 Nov, Activepregabalin 200 mg oral capsule (20 sources)Start: 63-12-9175lhff 1 capsule by mouth once dailypregabalin (Lyrica) 200 MG capsule Take 200 mg by mouth Daily 01/19/2025 ActivePrenatal Vit-Fe Fumarate-FA ( Vitamins) 28-0.8 MG tablet (20 sources)Start: 07-26-2025 End: 11-27-8802xjnz 1 tablet by mouth once dailyPrenatal Vit-Fe Fumarate-FA ( Vitamins) 28-0.8 MG tablet Indications: Missed menses , , unspecified gestational age [facility] , Encounter for supervision of normal first infirst [facility] , Nausea Take 1 tablet by mouth Daily 30 tablet 11 07/26/2025 07/26/2026 ActiveStart: 03-30-2025 End: 74-08-9790mbsq 1 tablet by mouth once dailyPrenatal Vit-Fe Fumarate-FA ( Vitamins) 28-0.8 MG tablet Indications: Missed menses , , unspecified gestational age ([facility]) , Encounter for supervision of normal first infirst trimester ([facility]) , Nausea Take 1 tablet by mouth Daily 30 tablet 3 03/30/2025 03/30/2026 ActiveStart: 03-30-2025 End: 77-00-8125zxrs 1 tablet by mouth once dailyPrenatal Vit-Fe Fumarate-FA ( Vitamins) 28-0.8 MG tablet Indications: Missed menses , , unspecified gestational age , Encounter for supervision of normal first in first trimester , Nausea Take 1 tablet by mouth Daily 30 tablet 3 03/30/2025 03/30/2026 Activepromethazine hydrochloride 12.5 mg oral tablet (13 sources)PhenothiazineStart: 05-23-2025 End: 02-08-3990zfjw 1 tablet by mouth every six hours as needed for nausea and nausea, then take 1 tablet by mouthevery six hours as needed for nausea and nauseapromethazine (Phenergan) 12.5 MG tablet Indications: Gastroesophageal reflux in ([facility])Take 1 tablet (12.5 mg) by mouth every 6 (six) hours if needed for nausea or vomiting for up to 30 doses Take 1 tablet by mouth every 6 hours as needed for nausea. 30 tablet 2 05/23/2025 08/16/2025 Di scontinued (Therapy completed)Tri-Sprintec 35 mcg Tab (1 source)Start: 05-66-9717zvru 1 tablet by mouth once dailyTri-Sprintec 35 mcg Tab = 1 tab(s), Oral, Daily, NEED to schedule appt. before this refill runs out, # 84 tab(s), Refills(s) 1, Pharmacy: [facility] [id number], 150, cm, 04/29/21 15:53:00 EDT, Height/Length Dosing, 58, kg, 04/29/21 15:53:00 EDT, Weight Dosing Start Date: 05/22/21 Status: Ordered Completed/Discontinued Medications MedicationDrug Class(es)DatesSig (Normalized)Sig (Original)acetaminophen 300 mg / codeine phosphate 30 mg oral tablet (2 sources)Opioid AgonistStart: 01-09-2023 End: 41-41-8222Buhwqhviiywmj-Codeine Discontinued TAB TABLET January 09, 2023 12:00am January 09, 2023 11:55amacetaminophen 325 mg / oxyCODONE hydrochloride 5 mg oral tablet (20 sources)Opioid AgonistStart: 04-29-2022 End: 58-59-0252wdnj 1 tablet by mouth every four to six hoursOxycodone- Acetaminophen (Percocet) 5-325 mg tablet Discontinued 1 TAB PO EVERY 4-6 HOURS 12 6 April 29, 2022 October 13, 2022 11:50amStart: 01-28-2022 End: 74-14-3543shko 1 tablet by mouth every eight hoursOxycodone-Acetaminophen (Percocet) 5-325 mg tablet Discontinued 1 TAB PO Q8H 10 3 January 28, 2022 April 29, 2022 7:21amStart: 26-17-7233dphQFYVEI-Acetaminophen 5-325 MG Oral Tablet Quantity: 10 Refills: 0 Ordered: 28-Jan-2022 DO Start : 28-Jan-2022 ActiveStart: 01-09-2022 End: 96-23-3456kewf 1 tablet by mouth every six hoursOxycodone-Acetaminophen Discontinued 1 TAB PO Q6H 14 January 12, 2022 January 16, 2022 9:47am clindamycin 300 mg oral capsule (7 sources)Lincosamide AntibacterialStart: 12-39-4462Acdxchfkahs HCl - 300 MG Oral Capsule Quantity: 28 Refills: 0 Ordered: 09-Jan-2022 DO Start : 09-Jan-2022 ActiveStart: 01-09-2022 End: 28-15-5966snwg 300 mg by mouth every six hoursClindamycin Hcl Discontinued 300 MG PO Q6H 28 January 09, 2022 12:00am April 29, 2022 7:21amdoxycycline hyclate 100 mg oral capsule (14 sources)Tetracycline-class DrugStart: 04-29-2022 End: 66-25-7629idxu 100 mg by mouth twice dailyDoxycycline Hyclate Discontinued 100 MG PO Twice daily April 28, 2022 11:00pm October 13, 2022 11:50amStart: 10-67-6824tibx 1 capsule by mouth once dailyDoxycycline Hyclate 100 MG Oral Capsule TAKE 1 CAPSULE EVERY 12 HOURS DAILY. Quantity: 28 Refills: 1 Ordered: 10-Apr-2022 Juan Taylor MD Start : 10-Apr-2022 ActiveStart: 01-28-2022 Doxycycline Hyclate 100 MG Oral Capsule Quantity: 10 Refills: 0 Ordered: 28-Jan-2022 DO Start : 28-Jan-2022 ActiveStart: 01-08-2022 End: 86-83-2348xoiu 100 mg by mouth once dailyDoxycycline Hyclate [...] tablet (3 sources)Nonsteroidal Anti-inflammatory Drug, Cyclooxygenase InhibitorStart: 26-75-8418dkza 1 tablet by mouth every six hours at mealtimeKetorolac Tromethamine 10 MG Oral Tablet TAKE 1 TABLET EVERY 6 HOURS WITH FOOD. Quantity: 20 Refills: 0 Ordered: 10-Apr-2022 Juan Taylor MD Start : 10-Apr-2022 Active meloxicam 15 mg oral tablet (3 sources)Nonsteroidal Anti-inflammatory DrugStart: 03-72-6535oxtb 1 tablet by mouth every twenty-four hoursMeloxicam 15 MG 1 tablet Orally Once a day for 30 days Sep, Not-Taking/PRNnaproxen 500 mg oral tablet (3 sources)Nonsteroidal Anti-inflammatory DrugStart: 45-12-3438Efqlypab 500 MG Oral Tablet Quantity: 14 Refills: 0 Ordered: 30-Apr-2021 DO Start : 29-Apr-2021 Activesulfamethoxazole 800 mg / trimethoprim 160 mg oral tablet (5 sources)Dihydrofolate Reductase Inhibitor Antibacterial, Sulfonamide AntimicrobialStart: 42-81-8932fync 1 tablet by mouth twice daily Sulfamethoxazole-Trimethoprim 800-160 MG Oral Tablet TAKE 1 TABLET TWICE DAILY UNTIL FINISHED. Quantity: 28 Refills: 1 Ordered: 27-Mar-2022 Juan Taylor MD Start : 27-Mar-2022 ActivetraMADol hydrochloride 50 mg oral tablet (3 sources)Opioid AgonistStart: 61-08-4120iqos 1 tablet by mouth every eight hours as neededtraMADol HCl - 50 MG Oral Tablet TAKE 1 TABLET EVERY 8 HOURS NEEDED. Quantity: 20 Refills: 0 Ordered: 10-Apr-2022 Juan Taylor MD Start : 10-Apr-2022 Active Problems Active Problems Problem ClassificationProblemDateDocumented DateEpisodic/ChronicAbdominal pain (12 sources)Unspecified abdominal pain; Translations: [Left lower quadrant pain] Onset: 51-04-3024NgmlsolsDjmbq bronchitis (1 source)Acute bronchitis due to other specified organismsEpisodic Administrative/social admission (2 sources)Medication care plan discussed with patient; Translations: [Other specified counseling]66-28-3288FvjtfffhJwjjthgznn associated with dizziness or vertigo (1 source)Dizziness and giddiness; Translations: [Dizziness and giddiness]Onset: 78-42-4185MjuqspyvIvnqbwcdzgsoq and procreative management (2 sources)Sterilization requested; Translations: [Encounter for sterilization] 58-08-2047KlehzrcpJ Codes: Fall (1 source)Fall (on) (from) unspecified stairs and steps, initial encounter; Translations: [FALL ON FROM UNS STAIRS STEPS INIT]Onset: 82-24-5692Pbjtxkvv Esophageal disorders (2 sources)Gastro-esophageal reflux disease with esophagitis; Translations: [Gastroesophageal reflux disease with esophagitis without hemorrhage]08-16-2025 ChronicExternal cause codes: Transport; not MVT (1 source)Animal-rider injured by fall from or being thrown from horse in noncollision accident, initial encounter; Translations: [Animl-ridr injured by fall fr horse in nonclsn acc, init]Onset: 33-98-0680Xqqjkxqj; including migraine (1 source)Headache; Translations: [Headache]Onset: 81-43-2895Isimhiyw Immunizations and screening for infectious disease (4 sources)Exposure to sexually transmissible disorder; Translations: [Contact with and (suspected) exposure to infections with a predominantly sexual mode of transmission]15-91-1709DettggngKfjkvpsuylkt injury (1 source)Concussion with loss of consciousness of 30 minutes or less, initial encounter; Translations: [Concussion w LOC of 30 minutes or less, init]Onset: 10-53-7708VmzpshzdRezef disorders and dislocations; trauma-related (8 sources)Internal derangement of left knee; Translations: [Unspecified internal derangement of left knee]ChronicLymphadenitis (1 source)Nonspecific mesenteric lymphadenitis; Translations: [NONSPEC MESENTERIC LYMPHADENITIS]Onset: 54-98-5036XebwbwbxZazmoomgz disorders (8 sources)Dysmenorrhea, unspecified; Translations: [Dysmenorrhea]Onset: 003657-79-1150AngeiycQzaoue and vomiting (3 sources)Nausea; Translations: [Nausea]04-61-0194EkbcodwpJbwxvkzebag chest pain (1 source)Chest pain; Translations: [Chest pain, unspecified]Onset: 02-18-2022 EpisodicOther aftercare (1 source)[place] [facility] [place] (current[facility] drug therapy; Translations: [OTH GROUP HOME CURRENT DRUG THERAPY]Onset: 63-76-0124IrlzyhzoUgkoh aftercare (5 sources)Patient encounter status; Translations: [Other [place] [facility] [place] (current) drug therapy]92-94-1088QqtlnrzlYquxo bone disease and musculoskeletal deformities (2 sources)Chondromalacia, left kneeEpisodicOther complications of (2 sources)Gastroesophageal reflux disease in ; Translations: [Diseases of the digestive system complicating , unspecified trimester] 99-08-1682GygtazphHxbgz complications of (2 sources) size does not accord with dates; Translations: [Uterine size- date discrepancy, unspecified trimester]26-60-7514LohkywjrCpkwu connective tissue disease (3 sources)Pain in right hand; Translations: [PAIN IN RIGHT HAND]Onset: 34-19-7065EdsxyzsiUctwc female genital disorders (2 sources)Vaginal bleeding; Translations: [Abnormal uterine and vaginal bleeding, unspecified]82-01-9057TjhjcrvZpsjl female genital disorders (4 sources)Vaginal discharge; Translations: [Other specified noninflammatory disorders of vagina]90-58-3673ScjwwifjSnwph gastrointestinal disorders (1 source)Constipation, unspecified; Translations: [CONSTIPATION UNSPECIFIED] Onset: 66-51-9329WhvidcngRklqo nervous system disorders (6 sources)Postoperative pain ; Translations: [Other acute postoperative pain] 71-16-2254IqlyymhaEnphc nervous system disorders (1 source)Other acute postprocedural pain; Translations: [OTHER ACUTE POSTPROCEDURAL PAIN]Onset: 29-42-8322PuivieddFwldn non-traumatic joint disorders (1 source)Pain in right shoulder; Translations: [Pain in right shoulder]Onset: 64-09-8834CoyrdamqJjlgz nutritional; endocrine; and metabolic disorders (4 sources)Obese class I; Translations: [Obesity, unspecified]Onset: 12-10-2022 25-21-6292XeakkkuDbdpq and delivery including normal (14 sources); Translations: [Encounter for supervision of normal , unspecified, unspecified trimester]69-56-7480WhtwjtgdEntpc skin disorders (5 sources)Epidermoid cyst; Translations: [Epidermal cyst]Onset: 02-18-2022 EpisodicOther skin disorders (5 sources)Infection of sebaceous cyst; Translations: [Sebaceous cyst]Episodic Residual codes; unclassified (2 sources)Gestation period, 9 weeks; Translations: [9 weeks gestation of ]81-74-7246XrcbdyinYzxpfzfw codes; unclassified (2 sources)Gestation period, 13 weeks; Translations: [13 weeks gestation of ]33-14-6220EcteprheLxbzkkrj codes; unclassified (2 sources)Gestation period, 17 weeks; Translations: [17 weeks gestation of ]93-29-0492BofbjhybUjyeezip codes; unclassified (2 sources)Gestation period, 21 weeks; Translations: [21 weeks gestation of ]17-41-4147BratiozkTsnaefzb codes; unclassified (2 sources)Gestation period, 25 weeks; Translations: [25 weeks gestation of ]38-42-1525JxtfuydwYslaeejd codes; unclassified (2 sources)Gestation period, 28 weeks; Translations: [28 weeks gestation of ]18-95-7831IjswnregDepy and subcutaneous tissue infections (8 sources)Abscess; Translations: [Cutaneous abscess, unspecified]01-28-2022 EpisodicSpondylosis; intervertebral disc disorders; other back problems (2 sources)Cervicalgia; Translations: [Cervicalgia]Onset: 89-11-9756Hhoydulx Sprains and strains (2 sources)Sprain of knee; Translations: [Sprain of unspecified site of left knee, initial encounter]Onset: 274209-27-1519DqwjhkuoHkgvanove-ffmztks disorders (5 sources)Nicotine dependence, cigarettes, uncomplicated; Translations: [Smoker]Onset: 873888-84-4040HzejzqnUivtfqrfdvc injury; contusion (1 source)Contusion of right hand, initial encounter; Translations: [CONTUSION RIGHT HAND INITIAL ENC]Onset: 29-70-7167OjfelnzyPomzggktklsx (2 sources)COUGH, UNSPECIFIED; Translations: [COUGH, UNSPECIFIED]Onset: 53-19-9523Qfjuoubafzrm (1 source)Pain in left knee; Translations: [Pain in left knee]Onset: 09-24-2023 Unclassified (1 source)Unspecified ovarian cyst, left side; Translations: [Unspecified ovarian cyst, left side]Onset: 13-26-9520Gdgqlejpvlxq (1 source)Annual ExamOnset: 50-57-7024Imfneiltdfus (1 source)Gynecologic ExamOnset: 16-71-4840Oiihd infection (3 sources)Disease caused by 2019-nCoV; Translations: [COVID-19]10-13-2022 Episodic Past or Other Problems Problem ClassificationProblemDateDocumented DateEpisodic/ChronicInfluenza (1 source)Influenza due to unidentified influenza virus with other respiratory manifestations; Translations: [FLU D/T UNIDENT FLU VIR RESP MANIF]Onset: 86-35-0340GtrdhmegMdxm disorders (4 sources)Mood disordersOnset: 152929-00-9825Chgjrut cyst (11 sources)Cyst of ovary; Translations: [Unspecified ovarian cyst, unspecified side]Onset: 572061-32-6206KkrxprkoBzrzgbkf codes; unclassified (4 sources)Family history of breast cancer; Translations: [Family history of malignant neoplasm of breast]Onset: 951219-28-1651FhnuvlphIuooltwtvhcm (1 source)COUGH, UNSPECIFIED; Translations: [COUGH, UNSPECIFIED]Onset: 17-77-5394Ojatghdxygmj (1 source)Acute cough R05.1Unclassified (4 sources)Onset: [id number] Results Test NameValueInterpretationReference RangeFacilityUS OB FOLLOW UP TRANSABDOMINAL APPROACHon 19-18-6663JZ OB FOLLOW UP TRANSABDOMINAL APPROACH FINDINGS: Comparison prior exam August 23, 2025. A single, live intrauterine is present with normal cardiac rate of 148 beats per minute. Normal activity and amniotic fluid volume. Amniotic fluid index is 11 cm. Morphology is grossly normal. The current sonographic age is 28 weeks and 4 days, based on the following measurements: BPD 7.1 cm (28 weeks, 2 days) Head Circumference 26.3 cm (28 weeks, 4 days) Abdominal Circumference 24.1 cm (28 weeks, 3 days) Femur Length 5.5 cm (28 weeks, 6 days) Presentation Cephalic Weight (g) by Percentile 37.3 % * These measurements result in an estimated date of delivery of November 25, 2025. The current estimated weight is 1251 grams (2 pounds, 12 ounces). IMPRESSION: Single, live intrauterine , current sonographic age of 28 weeks and 4 days, with an estimated date of delivery of November 25, 2025 (prior JONH same). * Estimated Weight (g) by Percentile is based upon an accurate estimated age based on last menstrual period. TRANSCRIBED BY: ELECTRONICALLY SIGNED BY: Violet Renae AvailableComment on above:Order Comment: US OB SCAN FOR GROWTH Estimated Date of Delivery: 11/25/25 Gestational Age as of 08/16/2025: 93s6vKhnqhntawc macro (dipstick) panel (U)on 06-30-3465Fuqnivszn, UANegativeNegative - 4(70) +++ mg/dLNOMS HealthcareBlood, UANegativeNegative - 50 Mando/mcLNOMS HealthcareClarity, UAClearNOMS Healthcare Color, UAYellowNOMS HealthcareGlucose, UANegativeNegative - 1999(110) ++++ mg/dL NOMS HealthcareInterpretation and review of laboratory resultsAbnormalNOMS HealthcareKetones, UANegativeNegative - 160(16) ++++ mg/dLNOMS Healthcare Leukocytes, UA1+Negative - 500+++ Maddy/mcLNOMS HealthcareNitrite, UANegative Negative - PositiveNOMS HealthcarepH, UA6.55 - 9NOMS HealthcareProtein, UA NegativeNegative - 1999(20) ++++ mg/dLNOMS HealthcareSpec Grav, UA1.0101 - 1.03 NOMS HealthcareUrobilinogen, UA1.00.2 - 12 mg/dLNOMS HealthcareNOMS HealthcareUS OB LIMITED 1+ FETUSESon 29-01-2663WB OB LIMITED 1+ FETUSESFINDINGS: Single viable intrauterine with adequate and cardiac activity, heart rate 167 bpm. Cephalic presentation. Placenta remains posteriorly located, migrated away from the closed internal cervical os inferior aspect approximately 7 cm. Normal three-vessel cord, RVOT, LVOT, and spine visualization appropriate for this age. Gestational age of 26 weeks, 4 days with an estimated delivery date of November 25, 2025. IMPRESSION: Single viable intrauterine , posterior placenta. TRANSCRIBED BY: ELECTRONICALLY SIGNED BY: Dada RenaeNot AvailableComment on above:Order Comment: US OB PLACENTA W US OB TRANSVAGINAL Estimated Date of Delivery: 11/25/25 Gestational Age as of 07/26/2025: 11o3xEsylqgbcol macro (dipstick) panel (U)on 37-61-4970Oxfcozwon, UANegativeNegative - 4(70) +++ mg/dLNOMS HealthcareBlood, UANegativeNegative - 50 Mando/mcLNOMS HealthcareClarity, UAClearNOMS Healthcare Color, UAYellowNOMS HealthcareGlucose, UANegativeNegative - 1999(110) ++++ mg/dL NOMS HealthcareInterpretation and review of laboratory resultsNormalNOMS HealthcareKetones, UANegativeNegative - 160(16) ++++ mg/dLNOMS Healthcare Leukocytes, UANegativeNegative - 500+++ Maddy/mcLNOMS HealthcareNitrite, UA NegativeNegative - PositiveNOMS HealthcarepH, UA8.05 - 9NOMS HealthcareProtein, UANegativeNegative - 1999(20) ++++ mg/dLNOMS HealthcareSpec Grav, UA1.0051 - 1.03NOMS HealthcareUrobilinogen, UA1.00.2 - 12 mg/dLNOMI HealthcareNOMS HealthcareUS OB 14+ WEEKS ANATOMY SCANon 23-70-9402ZI OB 14+ WEEKS ANATOMY SCAN ADDENDUM #1 [...] TRANSCRIBED BY: ELECTRONICALLY SIGNED BY: Pablo Lucero MDNormalNot AvailableComment on above:Order Comment: US OB ANATOMY SINGLE W US OB CERVICAL LENGTH Estimated Date of Delivery: 11/25/25 Gestational Age as of 06/20/2025: 80b8vAhlcdfzyjg macro (dipstick) panel (U)on 34-97-5833Andkbxfzq, UANegativeNegative - 4(70) +++ mg/dLNOMS HealthcareBlood, UANegativeNegative - 50 Mando/mcLNOMS HealthcareClarity, UAClearNOMS Healthcare Color, UAYellowNOMS HealthcareGlucose, UANegativeNegative - 2000(110) ++++ mg/dL NOMS HealthcareInterpretation and review of laboratory resultsNormalNOMS HealthcareKetones, UANegativeNegative - 160(16) ++++ mg/dLNOMS Healthcare Leukocytes, UANegativeNegative - 500+++ Maddy/mcLNOMS HealthcareNitrite, UA NegativeNegative - PositiveNOMS HealthcarepH, UA8.55 - 9NOMS HealthcareProtein, UANegativeNegative - 2000(20) ++++ mg/dLNOMS HealthcareSpec Grav, UA1.011 - 1.03 NOMS HealthcareUrobilinogen, UA1.00.2 - 12 mg/dLNOMS HealthcareNOMS Healthcare AFP, SERUM, OPEN SPINA BIFIDAon 30-43-3880LAN MOM1.25.NOMS HealthcareAFP VALUE 45.5 ng/mL.NOMS HealthcareCOMMENT:Comment.[facility] HealthcareComment on above:Roseanna Joshua, Ph.D., [facility] Director References: Available Upon Request. Multiples Of Median Cutoffs For AFP Elevations Coleman 2.5 Black 2.8 IDD 2.0 Twins 4.5 Abbreviation Definitions IDD - Insulin Dep Diabetes OSBR - Open Spina Bifida Risk For further inquiries contact [facility] at [phone]. This test was developed and its performance characteristics determined by [employer]. It has not been cleared or approved by the Food and Drug Administration. Performed at: [facility] [address], [place] [id number] Transistor Tester: Fidelina Chun [facility], Phone: [phone] GEST. AGE ON COLLECTION DATE17.4. weeksNOMS HealthcareGESTAT. AGE BASED ON Ultrasound.NOMS HealthcareComment on above:17.4 on 06/20/2025 Recalculations are not recommended when gestational dating by LMP and ultrasound are within 10 days. INSULIN DEP DIABETESNo.NOMS HealthcareINTERPRETATIONComment.[facility] Healthcare Comment on above:Interpretation: Screen Negative This result [...] Customer Services to discuss available options. The [employer] recommends amniocentesis be offered to women age 35 and older. MATERNAL AGE AT EDD27.0. yrNOMI HealthcareMULTIPLE GESTATIONNo.[facility] OSBR RISK 1 [id number].[facility] CenterRACECaucasian.[facility] CenterRESULTSReport. [facility] CenterTEST RESULTS:Negative.[facility] CenterNcnukpeawxARZCPE959. lbsNOMI HealthcarePREGNANCY N N ULTRASOUND [id number] 3 17 N 1 Y 172 N N N N N White/ CLINISYNCNOMI HealthcareUrinalysis macro (dipstick) panel (U)on 06-20-2025 Bilirubin, UANegativeNegative - 4(70) +++ mg/dLNOMI HealthcareBlood, UANegative Negative - 50 Mando/mcLMOUNTAINSTAR HEALTHCARE HealthcareClarity, UAClearNOMI HealthcareColor, UA YellowNOMI HealthcareGlucose, UANegativeNegative - 2000(110) ++++ mg/dLMOUNTAINSTAR HEALTHCARE HealthcareInterpretation and review of laboratory resultsNormalNOMissouri Delta Medical Center Ketones, UANegativeNegative - 160(16) ++++ mg/dLMOUNTAINSTAR HEALTHCARE HealthcareLeukocytes, UA NegativeNegative - 500+++ Maddy/mcLNOMI HealthcareNitrite, UANegativeNegative - PositiveNOMS HealthcarepH, UA65 - 9NOMI HealthcareProtein, UANegativeNegative - 2000(20) ++++ mg/dLNOMI HealthcareSpec Grav, UA1.011 - 1.03NOMI Healthcare Urobilinogen, UA1.00.2 - 12 mg/dLNOMS HealthcareNOMS HealthcareIGP,APTIMA HPV,AGE GDLNon 89-45-2119IIS GDLN ACOG TESTINGNote.[facility] CenterComment on above:TESTS RESULT FLAG UNITS REF RANGE LAB Clinician Provided Cytology Information Source.............Vagina Other.............. No. of containers..01 ThinPrep Vial Age Debrao ACOG Phuong... FLAG LEGEND: L-Low Normal,H-High Normal,LL-Alert Low,HH-Alert High <-Panic Low,>-Panic High,A-Abnormal,AA-Critical Abnormal Performed at: 01 =G [facility] [address] Miranda Carson MD, IGP, RFX APTIMA HPV ASCUNote.NOMS HealthcareComment on above:TESTS RESULT FLAG UNITS REF RANGE LAB DIAGNOSIS: 02 NEGATIVE FOR INTRAEPITHELIAL LESION OR MALIGNANCY. FUNGAL ORGANISMS MORPHOLOGICALLY CONSISTENT WITH SONYA SPECIES ARE PRESENT. TRICHOMONAS VAGINALIS IS PRESENT. THIS SPECIMEN WAS RESCREENED PART OF OUR TIMBER HEWER PROGRAM. Specimen adequacy: 02 Satisfactory for evaluation. Endocervical and/or squamous metaplastic cells (endocervical component) are present. Performed by: 02 Leigh Wright, Leasing Machine Tender (ASCP) QC reviewed by: 02 America Nielsen Leasing Machine Tender (ASCP) . 02 Note: Note 02 The [...] <-Panic Low,>-Panic High,A-Abnormal,AA-Critical Abnormal Performed at: [address] [address] Miranda Carson MD, Performed at: = - [facility] [id number] Transistor Tester: Miranda Carson MD, Phone: [phone] Performed at: [facility] [id number] Transistor Tester: Miranda Carson MD, Phone: [phone] SPATULA-ALONE VAGINA CLINISYNCNOMS HealthcareRECURRENT VAGINITIS (HTRX)on 30-50-7444XYXFOSPJJ VAGINAE 22.509AbnormalNOMS HealthcareATOPOBIUM VAGINAEDetectedAbnormalNOMS Healthcare BVAB 2,3 (BACTERIAL VAGINOSIS ASSOCIATED BACTERIA 2, 3); MOBILUNCUS SPP12.456 AbnormalNOMS HealthcareBVAB 2,3 (BACTERIAL VAGINOSIS ASSOCIATED BACTERIA 2, 3); MOBILUNCUS SPPDetectedAbnormalNOMS HealthcareCANDIDA ALBICANS, PARAPSILOSIS, SLMEWQWYGE3XNWH HealthcareCANDIDA ALBICANS, PARAPSILOSIS, TROPICALISNot detected NOMS HealthcareCANDIDA HWJNZDEG2FORY HealthcareCANDIDA GLABRATANot detectedNOMS HealthcareCANDIDA PLHYWT8DVQL HealthcareCANDIDA KRUSEINot detectedNOMS HealthcareCHLAMYDIA LRJBJAUXCDN3EIZP HealthcareCHLAMYDIA TRACHOMATISNot detected NOMS HealthcareERMB, C; MEFA20.08AbnormalNOMS HealthcareERMB, C; MEFADetected AbnormalNOMS HealthcareGARDNERELLA PWUVPWMVC27.276AbnormalNOMS Healthcare GARDNERELLA VAGINALISDetectedAbnormalNOMS HealthcareInterpretation and review of laboratory resultsAbnormalNOMS HealthcareMEGASPHAERA (TYPES 1, 2)14.865Abnormal NOMS HealthcareMEGASPHAERA (TYPES 1, 2)DetectedAbnormalNOMS HealthcareMYCOPLASMA QCRRJHUPEL6SAHA HealthcareMYCOPLASMA GENITALIUMNot detectedNOMS Healthcare NEISSERIA RDYGVIBSBGO9OPWJ HealthcareNEISSERIA GONORRHOEAENot detectedNOMS HealthcareTET B, TET M21.826AbnormalNOMS HealthcareTET B, TET MDetectedAbnormal NOMS HealthcareTRICHOMONAS PPVKOZQQI62.787AbnormalNOMS HealthcareTRICHOMONAS VAGINALISDetectedAbnormalNOMS HealthcareNOMS HealthcareUrinalysis macro (dipstick) panel (U)on 93-08-1817Krnomztwy, UANegativeNegative - 4(70) +++ mg/dL NOMS HealthcareBlood, UANegativeNegative - 50 Mando/mcLNOMS HealthcareClarity, UA ClearNOMS HealthcareColor, UAYellowNOMS HealthcareGlucose, UANegativeNegative - 2000(110) ++++ mg/dLNOMS HealthcareInterpretation and review of laboratory resultsAbnormalNOMS HealthcareKetones, UANegativeNegative - 160(16) ++++ mg/dL NOMS HealthcareLeukocytes, UANegativeNegative - 500+++ Maddy/mcLNOMS Healthcare Nitrite, UANegativeNegative - PositiveNOMS HealthcarepH, UA6.55 - 9NOMS HealthcareProtein, UANegativeNegative - 2000(20) ++++ mg/dLNOMS HealthcareSpec Grav, UA1.021 - 1.03NOMS HealthcareUrobilinogen, UA0.20.2 - 12 mg/dLNOMS HealthcareNOMS HealthcareBOX TESTon 42-94-9340RBF TEST SENT OUTUNITYNOMI UrgnstsjpkLWI4ECPQGTYMM LdtnbjcycnXHT258/23/2025NOMI HealthcareUNITY BOX CLINISYNCNOMS HealthcareUS OB TRANSVAGINALon 84-85-7268SN OB TRANSVAGINALEXAM: US OB TRANSVAGINAL HISTORY: Viability, [...] II, MD, PHD at 12-Apr-2025 08:23:25 AM [facility] TeleradiologyNormalNot AvailableComment on above:Order Comment: US OB VIABILITY PLEASE PERFORM TRANSVAGINAL ULTRASOUND IF INDICATED Patient's last menstrual period was 02/11/2025.HCG ( test) Ql (U)on 51-09-5737Kwvqsvxfblhppd and review of laboratory resultsAbnormalNOMS Healthcare Preg Test, UrPositiveNegativeNOMS HealthcareNOMS HealthcareUS OB TRANSVAGINALon 44-35-7528YS OB TRANSVAGINALEXAM: US OB TRANSVAGINAL HISTORY: Dating. [...] II, MD, PHD at 31-Mar-2025 11:53:30 AM [facility] TeleradiologyNormalNot AvailableComment on above:Order Comment: US OB TRANSVAGINAL No LMP recorded.Urinalysis macro (dipstick) panel (U)on 05-27-3441Esogmbpje, UA NegativeNegative - 4(70) +++ mg/dLNOMS HealthcareBlood, UAPositiveNegative - 50 Mando/mcLNOMS HealthcareComment on above:trace-intactClarity, UAClearNOMS HealthcareColor, UAYellowNOMS HealthcareGlucose, UANegativeNegative - 2000(110) ++++ mg/dLNOMS HealthcareInterpretation and review of laboratory resultsAbnormal NOMS HealthcareKetones, UANegativeNegative - 160(16) ++++ mg/dLNOMI Healthcare Leukocytes, UANegativeNegative - 500+++ Maddy/mcLNOMI HealthcareNitrite, UA NegativeNegative - PositiveNOMS HealthcarepH, UA5.55 - 9NOMS HealthcareProtein, UANegativeNegative - 2000(20) ++++ mg/dLNOMI HealthcareSpec Grav, UA1.0151 - 1.03NOMI HealthcareUrobilinogen, UA0.20.2 - 12 mg/dLNOMI HealthcareNOMS HealthcareUS PELVIC WITH TRANSVAGINALon 81-53-7440DP PELVIC WITH TRANSVAGINALUS PELVIC WITH TRANSVAGINAL HISTORY: [...] by Jodi Parmar MD on 01/20/2024 11:58 PMNormalProtestant HospitalCytologyon 99-77-6366ZhmlajtaNrmynfSeiWboqmq [facility]rem[facility] HospitalComment on above:Result Comment: [facility] [address] [place] [address] Gynecologic Cytology Consultation Patient Name:SOFIA ANDREWS:2000 (Age: 23)Gender:FTaken:4Reported:4Physician(s):Tiburcio Crawford DO ([phone])Copy To: Rec. #:[id number]: #[id number] Final Cytologic Interpretation ThinPrep Pap Test (Cervical): Satisfactory for evaluation. A transformation zone component is present. NEGATIVE FOR INTRAEPITHELIAL LESION OR MALIGNANCY. jv/01/27/2024 Interpretation performed at [facility], [address] [place] [address], License number: [id number]. 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 [place] [address] XRay Report Signed Patient: Sofia Andrews MR#: [id number] : 2000 Acct:[id number] Age/Sex: 22 / F ADM Date: 09/24/23 Loc: ER Room: Type: [facility] ER Attending Dr: Copies to: Alton oBss MD Ordering Provider: Alton Boss MD Date [...] PROCESS. Impression dictated by: Pablo Curiel Jr., DHawkOHawk09/24/2023 9:27 AM Dictation Location: [facility]15 Transcribed By: [facility] 09/24/23926 Dictated By: Pablo Curiel Jr, DO 09/24/23926 Signed By: 09/24/23926Mer[facility] HealthOutside Recordson 02-19-2023 Outside [id number]#1.00OTCincinnati Shriners HospitalOutside Records [id number]#1.00OTThe Christ Hospital Outside [id number]#1.00OTCincinnati Shriners HospitalOutside Recordson 98-62-8552Jvpmjfj Records [id number]#1.00[facility] Activated partial thromboplastin time (aPTT) in platelet poor plasma by coagulation aOrdered By: Joseph Wallace on 16-59-4210aIFI Coag (PPP) [Time] 30.5 s25.1-36.5FBellevue HospitalAlanine aminotransferase [Enzymatic activity/volume] in Serum or PlasmaOrdered By: Joseph Wallace on 63-64-6304ZAJ [Catalytic activity/Vol]16 U/L7-52St. Rita'S HospitalAlbumin [Mass/volume] in Serum or Plasma by Bromocresol green (BCG) dye binding methoOrdered By: Joseph Wallace on 89-62-9230Vktfdlt BCG dye [Mass/Vol]4.4 g/dL3.5-5.7FBellevue HospitalAlkaline phosphatase [Enzymatic activity/volume] in Serum or PlasmaOrdered By: Joseph Wallace on 67-96-7805GQM [Catalytic activity/Vol]77 U/D00-706MuivmdwaxSt. Rita'S HospitalAmphetamine Screen Ql (U)Ordered By: Joseph Wallace on 01-09-2023 Amphetamines Ql (U)NegativeNegCleveland Clinic Mercy HospitalAspartate aminotransferase [Enzymatic activity/volume] in Serum or PlasmaOrdered By: Joseph Wallace on 08-05-1333VVV [Catalytic activity/Vol]16 U/H57-08XgrrjbywfSt. Rita'S HospitalAutomated erythrocytes count in urine sediment (number/area)Ordered By: Joseph Wallace on 59-29-8391QUA Auto (Urine sed) [#/Area]10-19 [HPF]0-4FBellevue HospitalAutomated leukocytes count in urine sediment (number/area)Ordered By: Joseph Wallace on 01-09-2023 WBC Auto (Urine sed) [#/Area]0-1 [HPF]0-4FBellevue Hospital Barbiturates [Presence] in Urine by Screen methodOrdered By: Joseph Wallace on 85-54-8950Hgeclgzcdcvz Screen Ql (U)NegativeNegativeSt. Rita'S HospitalBasic Metabolic Panelon 08-73-9621Mwerl gap [Moles/Vol]12.6 mmol/L Normal6.0-15.0St. Rita'S HospitalComment on above:Performed By: #### PT, HEPATIC, PTT, BMP, CBC, LIPASE #### [facility] [address] [place] [address] USACalcium [Mass/Vol]8.9 mg/dLNormal8.6-10.3FBellevue HospitalComment on above:Performed By: #### PT, HEPATIC, PTT, BMP, CBC, LIPASE #### [facility] [address] [place] [address] USAChloride [Moles/Vol]107 mmol/ZLdiupn43-456AyupbmagiSt. Rita'S HospitalComment on above:Performed By: #### PT, HEPATIC, PTT, BMP, CBC, LIPASE #### [facility] [address] [place] [address] USACO2 [Moles/Vol]25.3 mmol/VVkbrzn99.0-31.0Fire[facility] Regional Medical CenterComment on above:Performed By: #### PT, HEPATIC, PTT, BMP, CBC, LIPASE #### [facility] [address] [place] [address] USACreatinine [Mass/Vol]0.57 mg/dLLow0.60-1.20St. Rita'S HospitalComment on above:Performed By: #### PT, HEPATIC, PTT, BMP, CBC, LIPASE #### [facility] [address] [place] [address] USACreatinine Clr Calc Vlcdrzmy022.51NormalSt. Rita'S HospitalComment on above:Performed By: #### PT, HEPATIC, PTT, BMP, CBC, LIPASE #### [facility] [address] [place] [address] USAGFR/1.73 sq M.predicted MDRD (S/P/Bld) [Vol rate/Area] mL/min/{1.73_m2}Mercy HealthComment on above: Performed By: #### PT, HEPATIC, PTT, BMP, CBC, LIPASE #### [facility] [address] [place] [address] USAGlucose [Mass/Vol]85 mg/aQJiwxzv15-411FavpncmtbSt. Rita'S HospitalComment on above:Result Comment: Random Glucose Reference Range is dependent on time and content of last meal. Glucose of more than 200 mg/dL in a nonstressed, ambulatory subject supports the diagnosis of Diabetes Mellitus. ADA recommended reference rangePerformed By: #### PT, HEPATIC, PTT, BMP, CBC, LIPASE #### [facility] [address] [place] [address] USAPotassium [Moles/Vol]3.9 mmol/LNormal3.5-5.1FBellevue HospitalComment on above:Performed By: #### PT, HEPATIC, PTT, BMP, CBC, LIPASE #### [facility] [address] [place] [address] USASodium [Moles/Vol]141 mmol/UIbzrva371-680RwbqbwrikSt. Rita'S HospitalComment on above:Performed By: #### PT, HEPATIC, PTT, BMP, CBC, LIPASE #### [facility] [address] [place] [address] USAUrea nitrogen [Mass/Vol]12 mg/dLNormal7-25St. Rita'S HospitalComment on above:Performed By: #### PT, HEPATIC, PTT, BMP, CBC, LIPASE #### [facility] [address] [place] [address] USABasophils Auto (Bld) [#/Vol]Ordered By: Joseph Wallace on 67-51-8707Rqqamxxpr (Bld) [#/Vol]0.1 10*3/uL0.0-0.2FBellevue HospitalBasophils/100 WBC Auto (Bld)Ordered By: Joseph Wallace on 01-09-2023 Basophils/100 WBC (Bld)0.6 %.St. Rita'S HospitalBenzodiazepines Screen Ql (U)Ordered By: Joseph Wallace on 04-31-7241Votbtkvlsewmklc Ql (U) PositiveNegativeSt. Rita'S HospitalBenzoylecgonine [Presence] in Urine by Screen methodOrdered By: Joseph Wallace on 64-89-3276Ivkembluhzhtxvu Screen Ql (U)PositiveNegativeSt. Rita'S HospitalBilirubin Test strip Ql (U)Ordered By: Joseph Wallace on 27-88-8655Goymgihfy Ql (U)Negative NegativeSt. Rita'S HospitalBilirubin.direct [Mass/volume] in Serum or PlasmaOrdered By: Joseph Wallace on 40-33-2276Dckxvqmlb.direct [Mass/Vol] 0.10 mg/dL0.03-0.18FBellevue HospitalBilirubin.total [Mass/volume] in Serum or PlasmaOrdered By: Joseph Wallace on 01-09-2023 Bilirubin [Mass/Vol]0.5 mg/dL0.3-1.0St. Rita'S HospitalCBC AUTO DIFFon 91-42-7806HOHB #0.1 103/ulNormal0.0-0.1The Marion HospitalComment on above:Performed By: #### CBC #### [facility] [address] [address] [address] Cristopher GodoyBasophils/100 WBC (Bld)0.6 %Normal0.2-2.0[facility] Comment on above:Performed By: #### CBC #### [facility] [address] [place] [address] Dr. Cristopher Boone #0.4 103/ulNormal0.0-0.7The [facility] HospitalComment on above: Performed By: #### CBC #### [facility] [address] [place] [address] Dr. Cristopher Mcphersonosinophils/100 WBC (Bld)2.7 %Normal0.9-7.0[facility] Comment on above:Performed By: #### CBC #### [facility] [address] [place] [address] Dr. Cristopher Mcphersonrythrocyte distribution width (RBC) [Ratio]13.5 %Jlzxpg39.0-15.0 The [facility] HospitalComment on above:Performed By: #### CBC #### [facility] [address] [place] [address] Dr. Cristopher GodoyHematocrit (Bld) [Volume fraction]42.2 %Aypgtf98.0-48.0The [facility] HospitalComment on above:Performed By: #### CBC #### [facility] [address] [place] [address] Dr. Cristopher GodoyHemoglobin (Bld) [Mass/Vol]14.1 g/vKZrvizs75.0-16.0[facility] HospitalComment on above:Performed By: #### CBC #### [facility] [address] [place] [address] Dr. Cristopher Santa #0.06 10e3/ulCritically high0.00-0.03[facility] Comment on above:Performed By: #### CBC #### [facility] [address] [place] [address] Dr. Cristopher Santa %0.4 %Normal0.0-0.5The [facility] HospitalComment on above: Performed By: #### CBC #### [facility] [address] [place] [address] Dr. Yilan ChangLYMPH #3.8 103/ulNormal1.2-3.8The [facility] HospitalComment on above:Performed By: #### CBC #### [facility] [address] [place] [address] Dr. Cristopher Olmedomphocytes/100 WBC (Bld)24.7 %Jhnyht68.5-60.0The [facility] HospitalComment on above:Performed By: #### CBC #### [facility] [address] [place] [address] Dr. Cristopher Ro DIFF REQNONormalThe Marion HospitalComment on above: Performed By: #### CBC #### [facility] [address] [place] [address] Dr. Cristopher Benjamin (RBC) [Entitic mass]30.5 zqAuqxfk73.7-34.0The [facility] HospitalComment on above:Performed By: #### CBC #### [facility] [address] [place] [address] Dr. Cristopher Benjamin (RBC) [Mass/Vol]33.4 g/iINqkkti74.9-35.2The [facility] HospitalComment on above:Performed By: #### CBC #### [facility] [address] [place] [address] Dr. Cristopher Bender (RBC) [Entitic vol]91.3 kHDtkjuw46.0-99.0[facility] HospitalComment on above:Performed By: #### CBC #### [facility] [address] [place] [address] Dr. Cristopher Gomez #0.9 103/ulCritically high0.3-0.8ThWhite Hospital Comment on above:Performed By: #### CBC #### [facility] [address] [place] [address] Dr. Cristopher Oroscoocytes/100 WBC (Bld)5.9 %Normal1.7-12.0[facility] Comment on above:Performed By: #### CBC #### [facility] [address] [place] [address] Dr. Yilan ChangNEUT #10.0 103/ulCritically high1.4-6.5[facility] Comment on above:Performed By: #### CBC #### [facility] [address] [place] [address] Dr. Cristopher Mcallisterutrophils/100 WBC (Bld)65.7 %Wtoxns81.0-75.0The [facility] HospitalComment on above:Performed By: #### CBC #### [facility] [address] [place] [address] Dr. Cristopher Polklet mean volume (Bld) [Entitic vol]10.8 fLNormal9.5-13.5The [facility] HospitalComment on above:Performed By: #### CBC #### [facility] [address] [place] [address] Dr. Cristopher GodoyPLT338 103/ctFuayos039-592Kxj Marion HospitalComment on above: Performed By: #### CBC #### [facility] [address] [place] [address] Dr. Cristopher GodoyRBC4.62 106/ulNormal4.20-5.40The [facility] HospitalComment on above:Performed By: #### CBC #### [facility] [address] [place] [address] Dr. Cristopher GodoyWBC15.3 103/ulCritically high4.0-11.0The [facility] HospitalComment on above:Performed By: #### CBC #### [facility] [address] [place] [address] Dr. Cristopher GodoyCT ABD/PELV W CONon 62-72-8060ZI ABD/PELV W CONEXAMINATION: CT ABD/PELV W CON [...] Electronically authenticated by: SHERI ESCUDERO Date: 2023-01-09 04:41[facility] HospitalCalcium [Mass/volume] in Serum or PlasmaOrdered By: Joseph Wallace on 33-18-9153Nosvppy [Mass/Vol]8.9 mg/dL8.6-10.3FBellevue HospitalCannabinoids [Presence] in Urine by Screen methodOrdered By: Joseph Wallace on 29-22-7662Jphzqztnlhhb Screen Ql (U)PositiveNegative St. Rita'S HospitalComment on above:These are unconfirmed results and should not be used for legal purposes. Drug Cut-Off Concentration: AMPH 1000 ng/mL ISAURO 200 ng/mL YULY 200 ng/mL COCM 300 ng/mL OP 300 ng/mL PCP 25 ng/mL THC 20 ng/mLCarbon dioxide, total [Moles/volume] in Serum or PlasmaOrdered By: Joseph Madison on 04-44-5321UT3 [Moles/Vol]25.3 mmol/L21.0-31.0St. [facility]'S HospitalChloride [Moles/volume] in Serum or PlasmaOrdered By: Joseph Wallace on 45-42-6752Hkyzdsha [Moles/Vol]107 mmol/K60-969TczntmeszSt. Rita'S HospitalColor Auto (U)Ordered By: Joseph Wallace on 01-09-2023 Color (U)YellowYellowSt. Rita'S HospitalComplete Blood Count Auto Diffon 45-68-4084Syginsgpg (Bld) [#/Vol]0.1 10*3/uLNormal0.0-0.2FBellevue HospitalComment on above:Result Comment: PERFORMED BY: [place] [address] PATHOLOGIST GERMINATION TESTING MANAGER LUCRECIA NG M.D.Performed By: #### PT, HEPATIC, PTT, BMP, CBC, LIPASE #### [place] [address] USABasophils/100 WBC (Bld)0.6 %Normal.St. Rita'S HospitalComment on above:Performed By: #### PT, HEPATIC, PTT, BMP, CBC, LIPASE #### [facility] [address] [place] [address] USAEosinophils (Bld) [#/Vol]0.6 10*3/uLHigh0.0-0.45St. Rita'S HospitalComment on above:Performed By: #### PT, HEPATIC, PTT, BMP, CBC, LIPASE #### [place] [address] USAEosinophils/100 WBC (Bld)5.4 %Normal.St. Rita'S HospitalComment on above:Performed By: #### PT, HEPATIC, PTT, BMP, CBC, LIPASE #### [place] [address] USAErythrocyte distribution width (RBC) [Ratio]14.2 %Normal 11.9-15.3FBellevue HospitalComment on above:Performed By: #### PT, HEPATIC, PTT, BMP, CBC, LIPASE #### [place] [address] USAHematocrit (Bld) [Volume fraction]43.2 %Szeebh22.0-46.4 [facility]'S HospitalComment on above:Performed By: #### PT, HEPATIC, PTT, BMP, CBC, LIPASE #### [place] [address] USAHemoglobin (Bld) [Mass/Vol]14.1 g/lCNpnslw87.8-15.4 [facility]'S HospitalComment on above:Performed By: #### PT, HEPATIC, PTT, BMP, CBC, LIPASE #### [place] [address] USALymphocytes (Bld) [#/Vol]3.3 10*3/uLNormal1.00-4.8 [facility]'S HospitalComment on above:Performed By: #### PT, HEPATIC, PTT, BMP, CBC, LIPASE #### [place] [address] USALymphocytes/100 WBC (Bld)28.7 %Normal.St. Rita'S HospitalComment on above:Performed By: #### PT, HEPATIC, PTT, BMP, CBC, LIPASE #### [place] [address] USAMCH (RBC) [Entitic mass]30.1 knJhityn02.7-34.3FBellevue HospitalComment on above:Performed By: #### PT, HEPATIC, PTT, BMP, CBC, LIPASE #### [place] [address] USAMCV (RBC) [Entitic vol]92.6 oSSvmyia52-278QfkjydoolSt. Rita'S HospitalComment on above:Performed By: #### PT, HEPATIC, PTT, BMP, CBC, LIPASE #### [facility] [address] [place] [address] USAMean Corpuscular HGB Conc32.6 g/dBIkmflt99.0-35.0St. Rita'S HospitalComment on above:Performed By: #### PT, HEPATIC, PTT, BMP, CBC, LIPASE #### [place] [address] USAMonocytes (Bld) [#/Vol]0.8 10*3/uLNormal0.0-0.8St. Rita'S HospitalComment on above:Performed By: #### PT, HEPATIC, PTT, BMP, CBC, LIPASE #### [place] [address] USAMonocytes/100 WBC (Bld)16.00 %Normal0.00-20.00St. Rita'S HospitalComment on above:Performed By: #### PT, HEPATIC, PTT, BMP, CBC, LIPASE #### [place] [address] USAMonocytes/100 WBC (Bld)6.8 %Normal.St. Rita'S HospitalComment on above:Performed By: #### PT, HEPATIC, PTT, BMP, CBC, LIPASE #### [place] [address] USANeutrophils (Bld) [#/Vol]6.7 10*3/uLNormal1.8-7.7FBellevue HospitalComment on above:Performed By: #### PT, HEPATIC, PTT, BMP, CBC, LIPASE #### [place] [address] USANeutrophils/100 WBC (Bld)58.5 %Normal.St. Rita'S HospitalComment on above:Performed By: #### PT, HEPATIC, PTT, BMP, CBC, LIPASE #### [place] [address] USANRBC%0.1 /100{WBC}Normal0-0.5FBellevue HospitalComment on above:Performed By: #### PT, HEPATIC, PTT, BMP, CBC, LIPASE #### [facility] [address] [place] [address] USAPlatelet mean volume (Bld) [Entitic vol]9.8 fLNormal 6.3-10.7FBellevue HospitalComment on above:Performed By: #### PT, HEPATIC, PTT, BMP, CBC, LIPASE #### [facility] [address] [place] [address] USAPlatelets (Bld) [#/Vol]314 10*3/vIGhxnsc978-350SphmuffgqSt. Rita'S HospitalComment on above:Performed By: #### PT, HEPATIC, PTT, BMP, CBC, LIPASE #### [facility] [address] [place] [address] USARBC (Bld) [#/Vol]4.67 10*6/uLNormal3.60-5.00St. Rita'S HospitalComment on above:Performed By: #### PT, HEPATIC, PTT, BMP, CBC, LIPASE #### [facility] [address] [place] [address] USAWBC (Bld) [#/Vol]11.5 10*3/uLNormal3.8-11.6FBellevue HospitalComment on above:Performed By: #### PT, HEPATIC, PTT, BMP, CBC, LIPASE #### [facility] [address] [place] [address] USACreatinine [Mass/volume] in Serum or PlasmaOrdered By: Joseph Wallace on 83-00-4546Gsztmzbjjk [Mass/Vol]0.57 mg/dL0.60-1.20St. [facility]'S HospitalDipstick and Microscopicon 41-70-6546Ccspqgbmvw (U)Clear NormalCleCincinnati Children's Hospital Medical CenterComment on above:Order Comment: Name Collection Type:: Clean-Voided MidstreamPerformed By: #### URDS, ADDONUAPLUS, UHCG #### [facility] [address] [place] [address] USABacteria,UrineNone SeenNormalNone SeenSt. Rita'S HospitalComment on above:Order Comment: Name Collection Type:: Clean- Voided MidstreamPerformed By: #### URDS, ADDONUAPLUS, UHCG #### [facility] [address] [place] [address] USABilirubin,UrineNegativeNormalNegativeSt. Rita'S HospitalComment on above:Order Comment: Name Collection Type:: Clean- Voided MidstreamPerformed By: #### URDS, ADDONUAPLUS, UHCG #### [place] [address] USAColor (U)YellowNormalYellowSt. Rita'S HospitalComment on above:Order Comment: Name Collection Type:: Clean-Voided MidstreamPerformed By: #### URDS, ADDONUAPLUS, UHCG #### [place] [address] USAGlucose Ql (U)NormalNormalNormMercy HospitalComment on above:Order Comment: Name Collection Type:: Clean-Voided MidstreamPerformed By: #### URDS, ADDONUAPLUS, UHCG #### [place] [address] USAHyaline Casts,UrineNone SeenNormal0-8St. Rita'S HospitalComment on above:Order Comment: Name Collection Type:: Clean- Voided MidstreamPerformed By: #### URDS, ADDONUAPLUS, UHCG #### [facility] [address] [place] [address] USAKetones Ql (U)NegativeNormalNegativeSt. Rita'S HospitalComment on above:Order Comment: Name Collection Type:: Clean- Voided MidstreamPerformed By: #### URDS, ADDONUAPLUS, UHCG #### [place] [address] USALeukocyte esterase Test strip Ql (U)NegativeNormalNegative St. Rita'S HospitalComtrinity health [facility] hospital on above:Order Comment: Name Collection Type:: Clean-Voided MidstreamPerformed By: #### URDS, ADDONUAPLUS, UHCG #### [address] [place] [address] USANitrite,UrineNegativeNormalNegativeSt. Rita'S HospitalComment on above:Order Comment: Name Collection Type:: Clean- Voided MidstreamPerformed By: #### URDS, ADDONUAPLUS, UHCG #### [facility] [address] [place] [address] USAOccult Blood,Urine1+HighNegativeSt. Rita'S HospitalComment on above:Order Comment: Name Collection Type:: Clean-Voided MidstreamPerformed By: #### URDS, ADDONUAPLUS, UHCG #### [facility] [address] [place] [address] USApH (U)5.5 [pH]Normal5.0-9.0St. Rita'S HospitalComment on above:Order Comment: Name Collection Type:: Clean-Voided MidstreamPerformed By: #### URDS, ADDONUAPLUS, UHCG #### [facility] [address] [place] [address] USAProtein,UrineNegativeNormalNegCleveland Clinic Mercy HospitalComment on above:Order Comment: Name Collection Type:: Clean- Voided MidstreamPerformed By: #### URDS, ADDONUAPLUS, UHCG #### [facility] [address] [place] [address] USARBC,Htnxk64-21Lsmw4-0MivupslwvBellevue Hospital Comment on above:Order Comment: Name Collection Type:: Clean-Voided Midstream Performed By: #### URDS, ADDONUAPLUS, UHCG #### [facility] [address] [place] [address] USASpecificy [place],Urine1.211Uriayp5.001-1.030St. Rita'S HospitalComment on above:Order Comment: Name Collection Type:: Clean-Voided MidstreamPerformed By: #### URDS, ADDONUAPLUS, UHCG #### [facility] [address] [place] [address] USASquamous Epithelial Cell,Pxbir5-1Lzguxy3-3CqeitnwcxBellevue HospitalComment on above:Order Comment: Name Collection Type:: Clean-Voided MidstreamPerformed By: #### URDS, ADDONUAPLUS, UHCG #### [place] [address] USAUrobilinogen,UrineNormalNormalNormalSt. Rita'S HospitalComment on above:Order Comment: Name Collection Type:: Clean- Voided MidstreamPerformed By: #### URDS, ADDONUAPLUS, UHCG #### [place] [address] USAWBC LM.HPF (Urine sed) [#/Area]0 /[HPF]Normal0-4FBellevue HospitalComment on above:Order Comment: Name Collection Type:: Clean-Voided MidstreamPerformed By: #### URDS, ADDONUAPLUS, UHCG #### [place] [address] USADrug Screen,Urineon 59-34-4763Uyhnuvjiofl Screen,Urine NegativeNormalNegativeSt. Rita'S HospitalComment on above: Performed By: #### PT, HEPATIC, PTT, BMP, CBC, LIPASE #### [place] [address] USABarbiturate Screen,UrineNegativeNormalNegCleveland Clinic Mercy HospitalComment on above:Performed By: #### PT, HEPATIC, PTT, BMP, CBC, LIPASE #### [place] [address] USABenzodiazepines Screen,UrinePositiveHighNegCleveland Clinic Mercy HospitalComment on above:Performed By: #### PT, HEPATIC, PTT, BMP, CBC, LIPASE #### [place] [address] USACannabinoid Screen,UrinePositiveChestnut Ridge CenterNegCleveland Clinic Mercy HospitalComtrinity health ann [facility] hospital on above:Result Comment: These are unconfirmed results and should not be used for legal purposes. Drug Cut-Off Concentration: AMPH 1000 ng/mL ISAURO 200 ng/mL YULY 200 ng/mL COCM 300 ng/mL OP 300 ng/mL PCP 25 ng/mL THC 20 ng/mL PERFORMED BY: [place] [address] PATHOLOGIST GERMINATION TESTING MANAGER LUCRECIA NG M.D.Performed By: #### PT, HEPATIC, PTT, BMP, CBC, LIPASE #### [facility] [address] [place] [address] USACocaine Screen,UrinePositiveHighNegCleveland Clinic Mercy HospitalComment on above:Performed By: #### PT, HEPATIC, PTT, BMP, CBC, LIPASE #### [facility] [address] [place] [address] USAOpiate Screen,UrinePositiveHighNegCleveland Clinic Mercy HospitalComment on above:Performed By: #### PT, HEPATIC, PTT, BMP, CBC, LIPASE #### [facility] [address] [place] [address] USAPhencyclidine Screen,UrineNegativeNormalNegCleveland Clinic Mercy HospitalComment on above:Performed By: #### PT, HEPATIC, PTT, BMP, CBC, LIPASE #### [facility] [address] [place] [address] USAER URINE PROFILEon 40-94-7268Pxtlyvmvi Ql (U)Negative NormalNEGATIVEClermont County HospitalComment on above:Performed By: #### DEWAYNE DUNHAMRO #### [facility] [address] [place] [address] Dr. Cristopher Connor (U)CLEARNormalCLEARClermont County HospitalComment on above: Performed By: #### DEWAYNE DUNHMARO #### [facility] [address] [place] [address] Dr. Cristopher Apple (U)LT. YELLOWNormalYELLOWClermont County HospitalComment on above:Performed By: #### DEWAYNE DUNHAMRO #### [facility] [address] [place] [address] Dr. Cristopher Osorio micrscopic examination will be performed if indicated. NormalClermont County HospitalComment on above:Performed By: #### FATOU DUNHAMICRO #### [facility] [address] [address] [address] Cristopher GodoyGlucose Ql (U)NegativeNormalNEGATIVEClermont County HospitalComment on above:Performed By: #### DEWAYNE DUNHAMRO #### [facility] [address] [place] [address] Dr. Cristopher GodoyHemoglobin Ql (U)LARGEAbnormalNEGATIVEClermont County Hospital Comment on above:Performed By: #### DEWAYNE DUNHAMRO #### [facility] [address] [place] [address] Dr. Cristophre GodoyKetones Ql (U)NegativeNormalNEGATIVEClermont County HospitalComment on above:Performed By: #### DEWAYNE DUNHAMRO #### [facility] [address] [place] [address] Dr. Cristopher GodoyLEUKOCYTESNegativeNormalNEGATIVEClermont County HospitalComment on above:Performed By: #### VEENA DUNHAM #### [facility] [address] [place] [address] Dr. Cristopher GodoyNitrite Ql (U)NegativeNormalNEGATIVEClermont County HospitalComment on above:Performed By: #### VEENA DUNHAM #### [facility] [address] [place] [address] Dr. Cristopher GodoypH (U)6.0 [pH]Normal5-9Clermont County HospitalComment on above: Performed By: #### VEENA DUNHAM #### [facility] [address] [place] [address] Dr. Cristopher GodoySPEC GRAVITY1.796Tqjsaj5.005-<=1.025The Marion HospitalComment on above:Performed By: #### DEWAYNE DUNHAMRO #### [facility] [address] [place] [address] Dr. Cristopher Tillman PROTEINNegativeNormalNEGATIVE/ TRACEClermont County Hospital Comment on above:Performed By: #### DEWAYNE DUNHAMRO #### [facility] [address] [place] [address] Dr. Yilan ChangUR MICRO INDINDICATEDNormalThe Marion HospitalComment on above: Performed By: #### DEWAYNE DUNHAMRO #### [facility] [address] [address] [address] Cristopher Porras Qn (U)0.2 {Kevin'U}/dLNormal0.2 - 1.0The Marion HospitalComment on above:Performed By: #### VEENA DUNHAM #### [facility] [address] [address] [address] Nicholas ChangEosinophils Auto (Bld) [#/Vol]Ordered By: Joseph Wallace on 06-62-4578Seuksbofdqp (Bld) [#/Vol]0.6 10*3/uL0.0-0.45St. [facility]'S HospitalEosinophils/100 WBC Auto (Bld)Ordered By: Joseph Wallace on 01-09-2023 Eosinophils/100 WBC (Bld)5.4 %.St[facility]'S HospitalErythrocyte distribution width Auto (RBC) [Ratio]Ordered By: Joseph Wallace on 01-09-2023 Erythrocyte distribution width (RBC) [Ratio]14.2 %11.9-15.3FBellevue HospitalGlobulin Calc (S) [Mass/Vol]Ordered By: Joseph Wallace on 48-04-1948Greclddm (S) [Mass/Vol]2.7 g/dLSt. Rita'S Hospital Glucose [Mass/volume] in Serum or PlasmaOrdered By: Joseph Wallace on 18-99-1664Penwjsy [Mass/Vol]85 mg/tX57-106FxguhfsbgSt. Rita'S Hospital Comment on above:ADA recommended reference rangeRandom Glucose Reference Range is dependent on time and content of last meal. Glucose of more than 200 mg/dL in a nonstressed, ambulatory subject supports the diagnosisof Diabetes Mellitus. HCG ( test) IA.rapid Ql (U)Ordered By: Joseph Wallace on 01-09-2023 HCG ( test) Ql (U)NegativeSt. Rita'S HospitalHCG,Urineon 93-05-4785Ptec HCG ( test) Ql (U)NegativeNormalSt. Rita'S HospitalComment on above:Order Comment: Name Collection Type:: Clean- Voided MidstreamResult Comment: PERFORMED BY: [place] [address] PATHOLOGIST GERMINATION TESTING MANAGER LUCRECIA NG M.D.Performed By: #### BRENDA GILBERT, [facility]CKIT[facility]ICK HOSPITALG #### [facility] [address] [place] [address] USAHematocrit Auto (Bld) [Volume fraction]Ordered By: Joseph Wallace on 99-14-4672Skclvsgqyr (Bld) [Volume fraction]43.2 %34.0-46.4 [facility]'S HospitalHemoglobin [Mass/volume] in BloodOrdered By: Joseph Wallace on 90-86-2267Hbxdjzntmc (Bld) [Mass/Vol]14.1 g/dL11.8-15.4 [facility]S HospitalHepatic Panelon 46-59-4459Jinmwtq [Mass/Vol]4.4 g/dLNormal3.5-5.7FBellevue HospitalComment on above:Performed By: #### PT, HEPATIC, PTT, BMP, CBC, LIPASE #### [facility] [address] [place], [place] [address] USAAlbumin/Globulin [Mass ratio]1.6 {ratio}NormalSt. Rita'S HospitalComment on above:Performed By: #### PT, HEPATIC, PTT, BMP, CBC, LIPASE #### [facility] [address] [place], [place] [address] USAALP [Catalytic activity/Vol]77 U/OWmmrnt32-738XkixfhgnxSt. Rita'S HospitalComment on above:Performed By: #### PT, HEPATIC, PTT, BMP, CBC, LIPASE #### [facility] [address] [place] [address] USAALT [Catalytic activity/Vol]16 U/LNormal7-52St. Rita'S HospitalComment on above:Performed By: #### PT, HEPATIC, PTT, BMP, CBC, LIPASE #### [facility] [address] [place], [place] [address] USAAST [Catalytic activity/Vol]16 U/BUsamet45-98WdvqxyzbpSt. Rita'S HospitalComment on above:Performed By: #### PT, HEPATIC, PTT, BMP, CBC, LIPASE #### [place] [address] USABilirubin [Mass/Vol]0.5 mg/dLNormal0.3-1.0St. Rita'S HospitalComment on above:Performed By: #### PT, HEPATIC, PTT, BMP, CBC, LIPASE #### [place] [address] USABilirubin,Indirect0.4 mg/dLNormalSt. Rita'S HospitalComment on above:Performed By: #### PT, HEPATIC, PTT, BMP, CBC, LIPASE #### [place] [address] USABilirubin.indirect [Mass/Vol]0.10 mg/dLNormal0.03-0.18 [facility]'S HospitalComment on above:Performed By: #### PT, HEPATIC, PTT, BMP, CBC, LIPASE #### [place] [address] USAGlobulin (S) [Mass/Vol]2.7 g/dLNormalSt. Rita'S HospitalComment on above:Performed By: #### PT, HEPATIC, PTT, BMP, CBC, LIPASE #### [place] [address] USAProtein [Mass/Vol]7.1 g/dLNormal6.4-8.9St. [facility]'S HospitalComment on above:Performed By: #### PT, HEPATIC, PTT, BMP, CBC, LIPASE #### [place] [address] USAKetones Auto test strip (U) [Mass/Vol]Ordered By: Joseph Wallace on 66-15-8005Cyovmes (U) [Mass/Vol]NegativeNegativeSt. Rita'S HospitalLaboratory - Chemistry and Chemistry - challengeOrdered By: Joseph Wallace on 40-61-8114NOG/1.73 sq M.predicted MDRD (S/P/Bld) [Vol rate/Area]mL/min/{1.73_m2}[facility] HospitalLaboratory - CoagulationOrdered By: Joseph Wallace on 83-72-1626EG Coag (PPP) [Time]10.4 s 9.0-12.9St[facility] HospitalLaboratory - UrinalysisOrdered By: Joseph Wallace on 19-41-9399Gypeqsu casts LM Ql (Urine sed)None seen [LPF]0-8 [facility]'S HospitalLeukocytes [#/volume] corrected for nucleated erythrocytes in Blood by Automated counOrdered By: Joseph Wallace on 66-34-1577KBX corrected for nucl RBC Auto (Bld) [#/Vol]11.5 10*3/uL3.8-11.6 [facility] HospitalLipaseon 57-71-7054Fkrvdl [Catalytic activity/Vol]12.0 U/RCiokxl40.0-82.0St. Rita'S HospitalComment on above:Result Comment: PERFORMED BY: [facility] [address] [place] [address] PATHOLOGIST GERMINATION TESTING MANAGER LUCRECIA NG M.D.Performed By: #### PT, HEPATIC, PTT, BMP, CBC, LIPASE #### [facility] [address] [place] [address] USALipase [Enzymatic activity/volume] in Serum or Plasma Ordered By: Joseph Wallace on 43-22-2286Ysgulw [Catalytic activity/Vol]12.0 U/L11.0-82.0St[facility]'S HospitalLymphocytes Auto (Bld) [#/Vol] Ordered By: Joseph Wallace on 20-95-6932Jggosibvjoe (Bld) [#/Vol]3.3 10*3/uL 1.00-4.8St. [facility]'S HospitalLymphocytes/100 WBC Auto (Bld)Ordered By: Joseph Wallace on 86-57-1767Unzoiewovyd/100 WBC (Bld)28.7 %.[facility] Auto (RBC) [Entitic mass]Ordered By: Joseph Wallace on 75-68-8342HSL (RBC) [Entitic mass]30.1 pg24.7-34.3FSt. Elizabeth Hospital Auto (RBC) [Mass/Vol]Ordered By: Joseph Wallace on 75-72-5857FLBB (RBC) [Mass/Vol]32.6 g/dL32.0-35.0St[facility]'S HospitalMCV Auto (RBC) [Entitic vol]Ordered By: Joseph Wallace on 76-88-1739ENP (RBC) [Entitic vol]92.6 wT89-290PhfcnebcoSt. Rita'S HospitalMonocyte distribution width [Entitic volume] in Blood by AutomatedOrdered By: Joseph Wallace on 99-64-5783Vsgfbbxk distribution width Auto (Bld) [Entitic vol]16.00 % 0.00-20.00St[facility]'S HospitalMonocytes Auto (Bld) [#/Vol]Ordered By: Joseph Wallace on 83-19-8718Kmrqqhvsv (Bld) [#/Vol]0.8 10*3/uL0.0-0.8 [facility] HospitalMonocytes/100 WBC Auto (Bld)Ordered By: Joseph Wallace on 36-47-5984Krlqrjlcj/100 WBC (Bld)6.8 %.[facility]'S HospitalNeutrophils Auto (Bld) [#/Vol]Ordered By: Joseph Wallace on 25-60-7000Jetshkyailb (Bld) [#/Vol]6.7 10*3/uL1.8-7.7FBellevue HospitalNeutrophils/100 WBC Auto (Bld)Ordered By: Joseph Wallace on 01-09-2023 Neutrophils/100 WBC (Bld)58.5 %.[facility]'S HospitalNitrite Test strip Ql (U)Ordered By: Joseph Wallace on 28-66-1755Kceyqte Ql (U)Negative NegativeSt. Rita'S HospitalNo Panel InformationOrdered By: Joseph Wallace on 00-21-8531Hegmpkjw Creatinine Clearance (Sano130.51 [facility]'S HospitalNucleated erythrocytes [Presence] in Blood by Automated countOrdered By: Joseph Wallace on 03-33-7819Ibomqlycy RBC Auto Ql (Bld)0.1 /100{WBC}0-0.5FBellevue HospitalOpiates [Presence] in Urine by Screen methodOrdered By: Joseph Wallace on 94-23-9145Btgqcmv Screen Ql (U)PositiveNegativeFirelands Regional Medical CenterPREG HCG QUALon 10-70-1224OWHZNWQFD, QUALNegativeNormalNEGATIVEThe Marion HospitalComment on above:Performed By: #### PREG #### [facility] [address] [address] [address] Cristopher GodoyPROF CHEM 8 (BAS METB)on 87-01-6047Pslhr gap [Moles/Vol]10.6 mmol/LNormalThe Marion HospitalComment on above:Performed By: #### BMP #### [facility] [address] [address] [address] Cristopher GodoyCalcium [Mass/Vol]8.7 mg/dLNormal8.5-10.1[facility] Comment on above:Performed By: #### BMP #### [facility] [address] [address] [address] Cristopher GodoyChloride [Moles/Vol]103 mmol/TSbtcqb18-954Mbw [facility] Comment on above:Performed By: #### BMP #### [facility] [address] [address] [address] Cristopher GodoyCO2 [Moles/Vol]28.0 mmol/HYozkmj58.0-32.0[facility] Comment on above:Performed By: #### BMP #### [facility] [address] [address] [address] Cristopher GodoyCreatinine [Mass/Vol]0.62 mg/dLNormal0.55-1.02The [facility] HospitalComment on above:Performed By: #### BMP #### [facility] [address] [address] [address] Nicholas ChangEGFR-AF LUXEMBOURGER>60Normal>=60The [facility] HospitalComment on above:Performed By: #### BMP #### [facility] [address] [address] [address] Cristopher McphersonGFR-NON AF LUXEMBOURGER>60Normal>=60The [facility] HospitalComment on above:Performed By: #### BMP #### [facility] [address] [address] [address] Cristopher GodoyGlucose [Mass/Vol]128 mg/dLCritically xfrx25-155Vmd Marion HospitalComment on above:Performed By: #### BMP #### [facility] [address] [address] [address] Cristopher GodoyPotassium [Moles/Vol]3.6 mmol/LNormal3.5-5.1[facility] Comment on above:Performed By: #### BMP #### [facility] [address] [address] [address] Cristopher GodoySodium [Moles/Vol]138 mmol/XPeazqn910-810Eln [facility] Comment on above:Performed By: #### BMP #### [facility] [address] [address] [address] Cristopher GodoyUrea nitrogen [Mass/Vol]13.0 mg/dLNormal7.0-18.0The [facility] HospitalComment on above:Performed By: #### BMP #### [facility] [address] [address] [address] Cristopher Peña nitrogen/Creatinine [Mass ratio]21.0 mg/mgNormalThe Marion HospitalComment on above:Performed By: #### BMP #### [facility] [address] [place] [address] Dr. Cristopher Stantonial Thromboplastin Timeon 67-33-5664vGIE Coag (Bld) [Time] 30.5 gKccnja24.1-36.5FBellevue HospitalComment on above:Result Comment: PERFORMED BY: [place] [address] PATHOLOGIST GERMINATION TESTING MANAGER LUCRECIA NG M.D.Performed By: #### PT, HEPATIC, PTT, BMP, CBC, LIPASE #### [place] [address] USAPhencyclidine Screen Ql (U)Ordered By: Joseph Wallace on 67-22-5540Tcvqyvghrpydm Ql (U)NegativeNegativeSt. Rita'S HospitalPlatelet mean volume Auto (Bld) [Entitic vol]Ordered By: Joseph Wallace on 67-54-4017Jglenumg mean volume (Bld) [Entitic vol]9.8 fL6.3-10.7FBellevue HospitalPlatelet poor plasma international normalized ratio (INR) by coagulation assay (relatOrdered By: Joseph Wallace on 28-06-3857AUA Coag (PPP) [Relative time]0.9 {INR}St. Rita'S HospitalComment on above: INR Therapeutic Range A) Pre- [...] Auto (Bld) [#/Vol]Ordered By: Joseph Wallace on 25-01-1285Asfbeixto (Bld) [#/Vol]314 10*3/eU960-634PwtlgvxcmSt. Rita'S HospitalPotassium [Moles/volume] in Serum or PlasmaOrdered By: Joseph Wallace on 01-09-2023 Potassium [Moles/Vol]3.9 mmol/L3.5-5.1FBellevue HospitalProtein Auto test strip (U) [Mass/Vol]Ordered By: Joseph Wallace on 05-47-3465Zgkfmqo (U) [Mass/Vol]NegativeNegativeSt. Rita'S HospitalProtein [Mass/volume] in Serum or PlasmaOrdered By: Joseph Wallace on 01-09-2023 Protein [Mass/Vol]7.1 g/dL6.4-8.9St. Rita'S HospitalProthrombin Time INRon 11-22-2064WKN Coag (PPP) [Relative time]0.9 {INR}NormalSt. Rita'S HospitalComment on above:Result Comment: INR Therapeutic Range A) [...] PT, HEPATIC, PTT, BMP, CBC, LIPASE #### [facility] [address] [place] [address] USAPT Coag (PPP) [Time]10.4 sNormal9.0-12.9St. Rita'S HospitalComment on above:Performed By: #### PT, HEPATIC, PTT, BMP, CBC, LIPASE #### [facility] [address] [place] [address] USARBC Auto (Bld) [#/Vol]Ordered By: Joseph Wallace on 14-80-8270LUD (Bld) [#/Vol]4.67 10*6/uL3.60-5.00[facility] Mary Hospitalerum or plasma albumin/globulin mass ratioOrdered By: Joseph Wallace on 02-47-8221Mribetl/Globulin [Mass ratio]1.6 {ratio}[facility] Hospitalerum or plasma anion gap determinationOrdered By: Joseph Wallace on 23-36-9304Fcuib gap [Moles/Vol]12.6 mmol/L6.0-15.0[facility]. Mary Hospitalerum or plasma non-glucuronidated bilirubin measurement (mass/volume) Ordered By: Joseph Wallace on 52-61-6281Zosfaexyh.indirect [Mass/Vol]0.4 mg/dLMount St. Mary Hospitalodium [Moles/volume] in Serum or Plasma Ordered By: Joseph Wallace on 19-67-7259Zofhtl [Moles/Vol]141 mmol/O906-[address] Mary Hospitalpecific gravity Auto test strip (U) [Rel density]Ordered By: Joseph Wallace on 97-68-6104Hzlmjprm gravity (U) [Rel density]1.0271.001-1.030[facility]. Mary Hospitalquamous epithelial cells detection in urine sediment by light microscopyOrdered By: Joseph Wallace on 44-31-8205Yawrstcnmx cells.squamous LM Ql (Urine sed)0-1 [HPF]0-2 [facility]S HospitalURINE MICROSCOPIC ONLYon 20-56-8214NMOUJMAFGKCE SEENNormalNONE SEENThe Marion HospitalComment on above:Performed By: #### ERUR UMICRO #### [facility] [address] [address] [address] Cristopher Hastings identified Cx Nom (U)NOT INDICATEDNoalThWhite HospitalComtrinity health [facility] on above:Performed By: #### ROLY UMICRO #### [facility] [address] [address] [address] Cristopher Camejo SEENNormalNONE SEENThe Marion HospitalComtrinity health ann [facility] hospital on above:Performed By: #### ROLY UMICRO #### [facility] [address] [address] [address] Cristopher Liuystals LM Nom (Urine sed)NONE SEENNormalNONE SEENThe Marion HospitalComtrinity health ann [facility] hospital on above:Performed By: #### ROLY UMICRO #### [facility] [address] [address] [address] Nicholas ChangEpithelial cells LM Ql (Urine sed)FEWAbnormalNONE SEEN /RAREThe Marion HospitalComtrinity health ann [facility] hospital on above:Performed By: #### ROLY UMICRO #### [facility] [address] [address] [address] Cirstopher Loza SEENNormalNONE SEENClermont County HospitalComtrinity health ann [facility] hospital on above:Performed By: #### ROLY UMICRO #### [facility] [address] [address] [address] Cristopher GodoyJwhsrCRF1-39Eylbcjkp9-3Juu Marion HospitalComment on above:Performed By: #### ROLY UMICRO #### [facility] [address] [address] [address] Cristopher GodoyWBC0-2AbnormalNONE SEENClermont County HospitalComtrinity health ann arbor hospital on above: Performed By: #### ROLY UMICRO #### [facility] [address] [address] [address] Cristopher Smith transvaginaloisaias 31-79-2298CA transvaginalUN[facility] [place] [address]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 (Bld)33.5 %Xgnzcq13.0-50.0University Hospitals Cleveland Medical CenterComment on above:Order Comment: Order Added by Discern Expert.Performed By: #### 4555311, 7499990, 79646346, 48836320, 4019304 ####[address] [address]Qfkqquottkd/Leukocytes Auto (Bld) [Pure # fraction]2.9 E9/LNormal1.0-4.0[facility] Hospitals Cleveland Medical CenterComment on above:Order Comment: Order Added by Susannah Expert.Performed By: #### 4358238, 1801901, 93714493, 53401875, 7273480 ####[facility] Lab [address] [place], [place] [address]Sbkbvxtlm/100 WBC (Bld)8.4 %Normal 4.0-14.0[facility] Cleveland Medical CenterComment on above:Order Comment: Order Added by Discern Expert.Performed By: #### 3059770, 9811101, 98151492, 58287878, 8338085 ####[address] [address]Rhfffinvc/Leukocytes Auto (Bld) [Pure # fraction]0.7 E9/LNormal0.2-1.0 [facility] Medical CenterComment on above:Order Comment: Order Added by Discern Expert.Performed By: #### 8546606, 4543145, 12854788, 55897685, 9916365 ####[facility] [address] [place] [address] Neutrophils/100 WBC (Bld)50.2 %Ixpiho12.0-75.0[facility] Hospitals Cleveland Medical CenterComment on above:Order Comment: Order Added by Discern Expert.Performed By: #### 2455305, 4276422, 95423536, 52978731, 4966353 ####[facility] [address] [place], [place] [address]Xhiiaejaihp/Leukocytes Auto (Bld) [Pure # fraction]4.3 E9/LNormal2.0-7.5FOhio State East HospitalComment on above:Order Comment: Order Added by Discern Expert.Performed By: #### 9300130, 7047483, 93563944, 76046924, 1023201 ####[facility] Lab [address] [place] [address]JKS w/ Auto Diffon 56-22-2579Rcfvsrgdfwb distribution width (RBC) [Ratio]14.6 %High10.9-14.2FOhio State East Hospital Comment on above:Performed By: #### 8728834, 9274352, 46274863, 00500187, 6213118 ####[address] [address]Xtqnyekhim (Bld) [Volume fraction]45.5 %Zqsvun92.0-46.0[facility] Hospitals [facility] Medical CenterComment on above:Performed By: #### 4996690, 9604925, 80428758, 86316363, 7471319 ####[address] [place], [place] [address]Remnhnzhju (Bld) [Mass/Vol]15.0 g/oYOwymyz57.0-16.0[facility] Hospitals Cleveland Medical CenterComment on above:Performed By: #### 2744880, 7234236, 12502013, 24692798, 6306970 ####[facility] [address] [place], [place] [address]YQP (RBC) [Entitic mass]29.6 phGjxqli88.0-34.0[facility] Comment on above:Performed By: #### 3075854, 0521388, 34614580, 42676094, 6410903 ####[facility] [address] [place], [place] [address]WUJQ (RBC) [Mass/Vol]33.0 g/gSUxeyrv46.4-36.0[facility] Comment on above:Performed By: #### 5875277, 3346076, 05259682, 11020785, 4655751 ####[facility] [address] [address]MRY (RBC) [Entitic vol]89.7 yCIkvsbt32.0-100.0[facility] Comment on above:Performed By: #### 7170310, 2433991, 52110576, 07212145, 1327376 ####[facility] [address] [address]Kojmzulb mean volume (Bld) [Entitic vol]10.5 fLNormal6.4-10.8[facility] Hospitals Cleveland Medical CenterComment on above:Performed By: #### 1932081, 3918290, 71941822, 97647241, 3331205 ####[address] [address]Xxlghglat (Bld) [#/Vol]339.0 E9/DBjrcua367.0-500.0[facility] Hospit[facility] Medical CenterComment on above:Performed By: #### 0017121, 4337495, 83406282, 50572017, 7850548 ####[address] [address]BOY (Bld) [#/Vol]5.1 E12/LNormal4.3-5.9[facility] Hospitals Cleveland Medical CenterComment on above:Performed By: #### 1457064, 0402875, 80990828, 81992501, 5682610 ####[facility] [address] [place], [place] [address]JBY corrected for nucl RBC Auto (Bld) [#/Vol]8.6 E9/LNormal 4.0-11.0[facility] Medical CenterComment on above:Performed By: #### 1748531, 0996269, 27276594, 55331353, 1636380 ####[facility] Lab [place], [place] [address]NWBIGDUKMLdwlgsy By: SYSTEM SYSTEM on 63-74-6381Atjfqph [Mass/Vol]4.3 g/dLNormal3.3 - 5.0 gm/dLFTMC Remisol Albumin/Globulin [Mass ratio]1.2 {ratio}Normal1.1 - 2.2[facility] RemisolALP [Catalytic activity/Vol]80 [iU]/yOxafcb30 - 98 Int._Unit/LFTMC RemisolALT No additional P-5'-P [Catalytic activity/Vol]46 [iU]/dNormal6 - 46 Int._Unit/LFTMC RemisolAnion gap [Moles/Vol]12 mmol/LNormal6 - 16 mEq/LFTMC RemisolAST [Catalytic activity/Vol]37 [iU]/dNormal5 - 43 Int._Unit/LFTMC RemisolBilirubin [Mass/Vol]0.8 mg/dLNormal0.0 - 1.1 mg/dLFTMC RemisolCalcium [Mass/Vol]9.6 mg/dL Normal8.9 - 11.1 mg/dLFTMC RemisolChloride [Moles/Vol]105 mmol/ZNmorav044 - 111 mmol/LFTMC RemisolCO2 [Moles/Vol]27 mmol/AMsgtgk68 - 31 mmol/LFTMC Remisol Creatinine [Mass/Vol]0.7 mg/dLNormal0.5 - 1.3 mg/dLFTMC RemisolGFR/1.73 sq M.predicted among blacks MDRD (S/P/Bld) [Vol rate/Area]mL/min/1.73 o2Hmyysd >=59mL/min/1.73 m2FT Chem SGFR/1.73 sq M.predicted among non-blacks MDRD (S/P/Bld) [Vol rate/Area]mL/min/1.73 c8Aczniq>=59mL/min/1.[address] Chem S Globulin (S) [Mass/Vol]3.6 g/dLNormal1.4 - 4.0 gm/dLASCENSION [address] [facility] RemisolGlucose [Mass/Vol]69 mg/rMCkucui74 - 199 mg/[address] [facility] RemisolPotassium [Moles/Vol]3.9 mmol/LNormal3.5 - 5.3 mmol/LFTMC RemisolProtein [Mass/Vol]7.9 g/dLHigh6.0 - 7.8 gm/dL[address]ION [address] [facility] RemisolSodium [Moles/Vol]140 mmol/GMvhpcl894 - 145 mmol/LFTMC Remisol Troponin I.cardiac [Mass/Vol]pg/mLLow10.10 - 27.10 pg/[address] [facility] RemisolUrea nitrogen [Mass/Vol]11 mg/dLNormal5 - 21 mg/dLASCENSION [address] [facility] RemisolUrea nitrogen/Creatinine [Mass ratio]16 mg/reHobyym05 - 20[facility] RemisolCMPon 94-68-1680Dmpluge [Mass/Vol]4.3 g/dLNormal3.3-5.0[facility] Comment on above:Performed By: #### 0493200, 8181603, 77090431, 13558174, 1299884 ####[facility] [address] [place], [place] [address]Tsegljs/Globulin (S) [Mass conc ratio]1.1Yersbr5.1-2.2FOhio State East HospitalComment on above:Performed By: #### 6298562, 1156806, 54639358, 73879820, 5613128 ####[facility] [address] [place], [place] [address]FPQ [Catalytic activity/Vol]80 Int._Unit/HQwtnhu16-12MioevmUniversity Hospitals Cleveland Medical CenterComment on above:Performed By: #### 2752353, 6797141, 30410049, 22196899, 3319634 ####[facility] [address] [place], [place] [address] No additional P-5'-P [Catalytic activity/Vol]46 Int._Unit/LNormal6-46 [facility] Medical CenterComment on above:Performed By: #### 9183039, 3008223, 53459628, 44123261, 6583144 ####[facility] [address] [place], [place] [address]ABJ [Catalytic activity/Vol]37 Int._Unit/LNormal 5-43[facility] Medical CenterComment on above:Performed By: #### 8351517, 9317376, 54968038, 62401815, 7112158 ####[facility] Lab [address] [place], [place] [address]Doyafmosw [Mass/Vol]0.8 mg/dLNormal 0.0-1.1FOhio State East HospitalComment on above:Performed By: #### 9337012, 2070422, 40545655, 34650488, 8583768 ####[facility] [address] [place], [place] [address]Gpuqfftavs [Mass/Vol]0.7 mg/dLNormal 0.5-1.3FOhio State East HospitalComment on above:Performed By: #### 7252392, 0296813, 80484029, 92019429, 7724963 ####[facility] Lab [address] [place], [place] [address]Uqkkpsxl (S) [Mass/Vol]3.6 g/dLNormal 1.4-4.0[facility] Medical CenterComment on above:Performed By: #### 1597183, 5211587, 47043561, 92414595, 0604214 ####[facility] Lab [address] [place], [place] [address]Pvulbkm [Mass/Vol]7.9 g/dLHigh6.0-7.8 [facility] CenterComment on above:Performed By: #### 6771989, 3954393, 71998482, 50026278, 7896449 ####[facility] [address] [place], [place] [address]Sxrv nitrogen [Mass/Vol]11 mg/dLNormal5-21[facility] CenterComment on above:Performed By: #### 0112089, 2580952, 34185494, 48149083, 2518220 ####[facility] [address] [place], [place] [address]Burq nitrogen/Creatinine [Mass ratio]16 No Units Vovjhc87-95IxaktmUniversity Hospitals Cleveland Medical CenterComment on above:Performed By: #### 3639611, 5976728, 91074188, 76702257, 9425803 ####[facility] [address] [place], [place] [address]Swczi gap [Moles/Vol]12 mmol/LNormal 6-16[facility] Medical CenterComment on above:Performed By: #### 7516834, 6258590, 84789665, 14319484, 5645215 ####[facility] [address] [place], [place] [address]Bpdnpma [Mass/Vol]9.6 mg/dLNormal 8.9-11.1FOhio State East HospitalComment on above:Performed By: #### 8269437, 6503540, 61580332, 96330452, 7891130 ####[facility] Lab [address] [place], [place] [address]Dmjcgfel [Moles/Vol]105 mmol/LNormal 101-111[facility] Medical CenterComment on above:Performed By: #### 0044324, 6156805, 39593383, 82375412, 8045785 ####[facility] Lab [address], [place] [address]ZN6 [Moles/Vol]27 mmol/EAzahic80-91 [facility] Medical CenterComment on above:Performed By: #### 2264049, 1289131, 30725988, 06488074, 6501264 ####[facility] [address] [place], [place] [address]Iyosvws [Mass/Vol]69 mg/zDYlqapd89-280TlgtbsUniversity Hospitals Cleveland Medical CenterComment on above:Result Comment: If this glucose result represents a fasting glucose, interpretation should refer tothe following reference range: 55-99 mg/dLPerformed By: #### 2346196, 0601955, 84541430, 56996364, 1239096 ####[facility] [address] [place] [address] Potassium [Moles/Vol]3.9 mmol/LNormal3.5-5.3[facility] CenterComment on above:Performed By: #### 6377152, 1763575, 98779523, 37736385, 5640871 ####[facility] [address] [place] [address] Sodium [Moles/Vol]140 mmol/VQqqhic163-243NchdoaUniversity Hospitals Cleveland Medical CenterComment on above:Performed By: #### 5885651, 3828103, 25551268, 42060451, 7992112 ####[facility] [address] [place] [address] Consent for Treatmenton 22-83-2438Jpqjwnl for Treatment [id number]#1.00CD:127[facility] HospitalDischarge Instructionson 81-70-7024Imtwhhpjr Instructions [id number]:127[facility] Clinical Summaryon 22-17-9405LZ Clinical Summary [address] [address] ED Clinical Summary Person Information Name: SOFIA WIGGINS/Araceli Age: 21 Years : 2000 Sex: Female Language: Hungarian PCP: Wandy Dorado DO Marital Status: Single [...] 15:44:15 02/18/2022 15:44:15 02/18/2022 15:44:15 AD[address]: [id number] [facility] [id number] PHYS DOC NOTES: MEDICAL INFORMATION: Prescriptions Given: PATIENT EDUCATION INFORMATION: Instructions: Epidermal Cyst, Yusr-of-Unou Follow up: With: Address: When: Sara MCGRATH, [place] In 3 days 02/21/2022 DIAGNOSIS: 1:Epidermoid cyst of skin of chest; 2:Chest painNormalFisher Aldair Medical CenterED Note-Physicianon 37-05-3132GQ Note-PhysicianBasic Information Time Seen: Fabi Iraheta PA-C [...] few weeks ago she was seen at [facility] ED and had an abscess drained; drain [...] was given a couple of Percocet by JasonDB lines and that helped. Patient also states [...] will also work on obtaining labs from [facility]. Patient to be given morphine and Zofran for her pain. Aspirin for her chest pain. Vital Signs: Reviewed the patient's vital signs. Nursing Notes: Reviewed and utilized the nursing notes. Head Batcher: not needed - patient preferred language is Hungarian. Old Medical Records: The patient's available past medical records and past encounters were reviewed. Summary of pertinent elements include: Patient was initially seen on 01/08/2022 for an abscess of her chest wall. These records were not sent to us. [facility] sent over two most recent visits [...] had 65 Percocet prescri (more content not included)...[facility] Comment on above:Result Comment: Electronically Signed By: Fabi Iraheta PA-C\.br\Date and Time Signed: 02/18/22 14:57 EDT\.br\Electronically Co-Signed By: Cheng Saldaña DO\.br\Date and Time Co-Signed: 02/18/22 19:37 EDTED Patient Education Noteon 39-35-5440YQ Patient Education NoteDermatology Epidermal Cyst An epidermal [...] Follow these instructions at home: ? Take mzog-mpg-czjnimy and prescription medicines only as told by [...] cyst, or to remove it. ? Take hxgl-qlu-hhsocnh and prescription medicines only as told by [...] Reviewed: 07/28/2019 Elsevier Patient Education ? 2019 get2play.[facility] ED Patient Summaryon 69-11-2484YX Patient Summary [place] [id number] Patient Discharge Instructions Person Information Name: SOFIA WIGGINS Age: 21 Years Arrival Date: 02/18/2022 11:49:36 Discharge Diagnosis: 1:Epidermoid cyst of skin of chest; 2:Chest pain Primary Care Physician: Wandy Dorado DO Provider Information Primary Provider: Cheng Saldaña DO Advanced Commercial Counsel:Fabi Iraheta PA-C The exam and treatment you received in the Emergency Department were for an urgent problem and are not intended as complete care. It is important that you follow up with a doctor, nurse practitioner,or physician?s blood bank assistant for ongoing care. If your symptoms become worse or you do not improve as expected and you are unable to reach your usual health care provider, you should return to the Emergency Department. We are available 24 hours a day. SOFIA WIGGINS has been given the following list of patient education materials, prescriptions andfollow-up instructions: Follow-up Instructions: With: Address: When: Ernesto Ruiz MD, DER In 3 days 02/21/2022 In the event that this physician does not participate in your insurance network, please consult with your insurance company to find a nearby participating provider. Patient Education Materials: Epidermal Cyst, Kzxd-ep-Ylvx A MESSAGE TO ALL PATIENTS REGARDING OPIOIDS PRESCRIPTION OPIOIDS: WHAT YOU NEED TO KNOW Prescription opioids can be used to help relieve crgssach-ci-gteqch pain and are often prescribed following a [...] your community drug take- back program or yourpharmacy mail-back program, or flush them down the toilet, following guidance from the Food and Drug Administration (www.fda.gov/Drugs/ResourcesForYou). ? Visit www.cdc.gov/drugoverdose to learn about the risks of opioids abuse and overdose. ? If you believe you may be struggling with addiction, tell your health hospice care sales consultant and ask for guidance or call [facility]?S National Helpline at 8-358-466-UGEI. g Source: [place] Department of Health and (more content not included)...Normal [facility] Medical CenterHEMATOLOGYOrdered By: SYSTEM SYSTEM on 02-18-2022 Basophils/100 WBC (Bld)0.9 %Normal0.0 - 2.0 %[facility] HemeAutoSSBasophils/Leukocytes Auto (Bld) [Pure # fraction]0.1 E9/LNormal0.0 - 0.2 E9/LFTMC HemeAutoSS Eosinophils/100 WBC (Bld)7.0 %Normal0.0 - 8.0 %[facility] HemeAutoSS Eosinophils/Leukocytes Auto (Bld) [Pure # fraction]0.6 E9/LHigh0.0 - 0.5 E9/L [facility] HemeAutoSSLymphocytes/100 WBC (Bld)33.5 %Onysui81.0 - 50.0 %[facility] HemeAutoSS Lymphocytes/Leukocytes Auto (Bld) [Pure # fraction]2.9 E9/LNormal1.0 - 4.0 E9/L [facility] HemeAutoSSMonocytes/100 WBC (Bld)8.4 %Normal4.0 - 14.0 %[facility] HemeAutoSS Monocytes/Leukocytes Auto (Bld) [Pure # fraction]0.7 E9/LNormal0.2 - 1.0 E9/L [facility] HemeAutoSSNeutrophils/100 WBC (Bld)50.2 %Tkmpdu95.0 - 75.0 %[facility] HemeAutoSS Neutrophils/Leukocytes Auto (Bld) [Pure # fraction]4.3 E9/LNormal2.0 - 7.5 E9/L [facility] HemeAutoSSHEMATOLOGYOrdered By: Violette Whitaker on 79-99-3061Hcgxslvaxop distribution width (RBC) [Ratio]14.6 %High10.9 - 14.2 %FT HemeAutoSSHematocrit (Bld) [Volume fraction]45.5 %Tishzw20.0 - 46.0 %[facility] HemeAutoSSHemoglobin (Bld) [Mass/Vol]15.0 g/lSDpqyda45.0 - 16.0 gm/dLFT HemeAutoSSMCH (RBC) [Entitic mass]29.6 avFeznvu41.0 - 34.0 pgFTMC HemeAutoSSMCHC (RBC) [Mass/Vol]33.0 g/dL Zkvfhe55.4 - 36.0 gm/dLFTMC HemeAutoSSMCV (RBC) [Entitic vol]89.7 kJSqedtd22.0 - 100.0 fLFT HemeAutoSSPlatelet mean volume (Bld) [Entitic vol]10.5 fLNormal6.4 - 10.8 fLFT HemeAutoSSPlatelets (Bld) [#/Vol]339.0 E9/LGilacy470.0 - 500.0 E9/LFSELECT [facility] [place] HemeAutoSSRBC (Bld) [#/Vol]5.1 E12/LNormal4.3 - 5.9 E12/LFC HemeAutoSSWBC corrected for nucl RBC Auto (Bld) [#/Vol]8.6 E9/LNormal4.0 - 11.0 E9/LFSELECT [facility] [place] HemeAutoSSOutside Recordson 92-42-2429Gvmazqx Records [id number]#1.00CD:[address] [place], [place] [address]Prescriptions/Work Noteson 82-07-6884Rlgpavlcvgpzb/Work Notes [id number]#[id number]:127CentervilleEROLOGYOrdered By: Tod Rg on 50-65-2361UPV.beta subunit (U) [Moles/Vol]NegativeNormalFT Man SeroTroponin 0 Hr.on 60-55-9725Zkqicbac I.cardiac [Mass/Vol]ng/mLLow10.10-27.10Fisher Graham Medical CenterComment on above:Result Comment: The 95% CI (Confidence Interval) PPV (Positive Predictive Value) for myocardial infarction in females is 38 pg/mL, in males 51 pg/mL. The results should be used in conjunction with clinical conditions of myocardial infarction. (Access High Sensitivity Troponin I Instructions For Use, Alfonso [place], June 2018)Performed By: #### 2338592, 6403037, 94581031, 75036441, 4778156 ####[address] [address]P BetaHcg Qualon 45-81-7899ZML.beta subunit (U) [Moles/Vol]NegativeNormalUniversity Hospitals Cleveland Medical CenterComment on above:Performed By: #### 31076868, 33677097 ####[address] [address]CA With Cult Reflexon 07-52-1373Bdtmzpmzbz cells.squamous LM.HPF (Urine sed) [#/Area]6-9Qplwot6-7GmrlinOhio State East HospitalComment on above:Performed By: #### 83846319, 23298204 ####[address] [address]Aztzsjo.plasma/Tribbey.RBC (Bld) [Mass ratio]2-3Qmytmj7-5 [facility] Medical CenterComment on above:Performed By: #### 61287692, 13756408 ####[address] [address]IXH LM.HPF (Urine sed) [#/Area]5-2Pzfclj7-4BarnwoOhio State East Hospital Comment on above:Performed By: #### 27402923, 29509801 ####[address] [address]Ikqyskyce Ql (U)NegativeNormal NegativeUniversity Hospitals Cleveland Medical CenterComment on above:Performed By: #### 12136129, 40785189 ####[address] [address]Vprzhek (U)CLEARNormalClearUniversity Hospitals Cleveland Medical CenterComment on above: Performed By: #### 01248596, 65071790 ####[facility] [address] [place], [place] [address]Aclqo (U)STRAWInvalid Interpretation CodeUniversity Hospitals Cleveland Medical CenterComment on above:Performed By: #### 72584341, 29361460 ####Gabriel [address] [address]Reildvp Test strip (U) [Mass/Vol]NegativeNormalNegativeUniversity [facility] CenterComment on above:Performed By: #### [id number], [id number] ####Gabriel [address] [address]Dsdzkbeayu Ql (U)TRACE AbnormalNegativeUniversity Hospitals Cleveland Medical CenterComment on above:Performed By: #### [id number], [id number] ####Gabriel [address] [address]Sljaxmm (U) [Mass/Vol]NegativeNormalNegativeUniversity Hospitals Cleveland Medical CenterComment on above:Performed By: #### [id number], [id number] ####Gabriel [address] [address]Qblihfo Ql (U) NegativeNormalNegativeUniversity Hospitals Cleveland Medical CenterComment on above:Performed By: #### [id number], [id number] ####Gabriel [address] [address]wW (U)6.5 [pH]Invalid Interpretation Code5.0-9.0[facility] CenterComment on above:Performed By: #### [id number], [id number] ####Gabriel [address] [address]Qtvgqha (U) [Mass/Vol]NegativeNormalNegativeUniversity Hospitals Cleveland Medical CenterComment on above: Performed By: #### [id number], [id number] ####Gabriel [address] [address]Unzpchpw gravity (U) [Rel density] <=1.005Invalid Interpretation Code1.005-1.030[facility] Medical CenterComment on above:Performed By: #### [id number], [id number] ####[facility] [address] [place], [place] [address]Btzz of Urine collection methodRandom UrineNormalUniversity Hospitals Cleveland Medical CenterComment on above:Performed By: #### [id number], [id number] ####[address] [address]Pejsrdgsennq Qn (U)0.2 {Kevin'U}/dLNormal0.0-1.0[facility] CenterComment on above:Performed By: #### [id number], [id number] ####[address] [address]YZX Auto Ql (U)NegativeNormalNegativeUniversity Hospitals Cleveland Medical CenterComment on above: Performed By: #### [id number], [id number] ####[facility] [address] [place] [address]QMYXOXKBJGOrsdypw By: Tod Rg on 14-26-5142Xuhqdwfcf Ql (U)Negative (02/18/22 2:39 PM)NormalNegativeASC[address]ION [address] U[facility] Auto SSClarity (U)Clear (02/18/22 2:39 PM)NormalClearFTM UA Auto SSColor (U)STRAWInvalid Interpretation CodeASCENSION ST. [facility] [place] UA Auto SSEpithelial cells.squamous LM.HPF (Urine sed) [#/Area]0-2 /HPF Normal0-2/HPFASC[address] [facility] [place] UA Auto SSGlucose Test strip (U) [Mass/Vol]Negative (02/18/22 2:39 PM)NormalNegativeASCENSION [address] UA Auto SSHemoglobin Ql (U)Trace *ABN* (02/18/22 2:39 PM)Invalid Interpretation CodeNegativeASCENSION ST. [facility] UA Auto SSKetones (U) [Mass/Vol]Negative (02/18/22 2:39 PM)NormalNegativeASCENSION ST[facility] UA Auto SSLithium.plasma/Tribbey.RBC (Bld) [Mass ratio]0-3 /HPFNormal0-3/HPFASCENSION ST. [facility] [place] UA Auto SSNitrite Ql (U)Negative (02/18/22 2:39 PM)NormalNegativeASCENSION [address] Auto SSpH (U)6.5 *NA* (02/18/22 2:39 PM)Invalid Interpretation Code5.0 - 9.0[facility] UA Auto SSProtein (U) [Mass/Vol]Negative (02/18/22 2:39 PM)NormalNegativeASCENSION ST[facility] UA Auto SSSpecific gravity (U) [Rel density] <=1.005 *NA* (02/18/22 2:39 PM)Invalid Interpretation Code1.005 - 1.030[facility] UA Auto SSUA Spec DescRandom Urine (02/18/22 2:39 PM)NormalASCENSION [facility] UA Auto SSUrobilinogen Qn (U)0.9529205 {Kevin'U}/dLNormal0.0 - 1.0 EU/dLASCENSION ST[address] [facility] UA Auto SSWBC Auto Ql (U)Negative (02/18/22 2:39 PM)NormalNegativeASCENSION ST[facility] UA Auto SSWBC LM.HPF (Urine sed) [#/Area]0-5 /HPFNormal0-5/HPFASCENSION ST. [facility] UA Auto SSXR Chest 2 Viewson 67-80-8941RE Chest 2 Views Exam Date/Time: 02/18/2022 14:14 [...] Esequiel Holder M.D. Transcribed by: DARWIN Technologist: AmberlyUniversity Hospitals Cleveland Medical CentereGFRon 64-54-3461HYD/1.73 sq M.predicted among blacks MDRD (S/P/Bld) [Vol rate/Area] mL/min/{1.73_m2}Normal>=59University [facility] Medical CenterComment on above:Order Comment: Order added by Discern Expert.Result Comment: eGFR is race adjusted. AA=.Performed By: #### [id number], [id number], [id number], [id number], [id number] ####[facility] [address] [place], [place] [address]NNM/1.73 sq M.predicted among non-blacks MDRD (S/P/Bld) [Vol rate/Area] mL/min/{1.73_m2}Normal>=59University [facility] Medical CenterComment on above:Order Comment: Order added by Discern Expert.Result Comment: Chronic kidney disease could be indicated at eGFR's of less than 60 mL/min/1.73m2. Kidney failure is indicated at less than 15 mL/min/1.73m2.Performed By: #### [id number], [id number], [id number], [id number], [id number] ####[facility] [address] [place], [place] [address]Zjnllv Summary.on 68-33-6955Gcwxpo Summary. CD:[id number]:[id number]+PGhlYWQ+MI1YVESkC23zaRIncJ0WT3qNAP3TQJQWCLURGE8ZYW4ej UB3JPsrY1MmbrYu [file] c2U6 (more content not included)...[facility] CenterED Note-Physicianon 67-83-5661VZ Note-PhysicianBasic Information Time Seen: Andrew Rainey PA-C 04/29/2021 [...] Appropriate mood & affect. Integumentary: Warm, Dry, [place] Medical Decision Making Plain film x-rays were [...] [address], Brenda [address], [place] [place] [address]- Business (1) Additional Instructions: Ice to the [...] data available. Diagnostic Results No qualifying data available.[facility] HospitalComment on above: Result Comment: Electronically Signed By: Andrew Rainey PA-C\.br\Date and Time Signed: 04/30/21 13:32 EDT\.br\Electronically Co-Signed By: Alton Francisco DO\.br\Date and Time Co-Signed: 04/30/2114:00 EDTXR Wrist 3+ Views Lefton 98-49-8977FP Wrist 3+ Views LeftExam Date/Time: 04/29/2021 17:03 [...] Petros Lance M.D. Transcribed by: DARWIN Technologist: ManojUniversity Hospitals Cleveland Medical CenterConsent for Treatmenton 45-14-0940Mhhdzxe for Treatment [id number]:127[facility] HospitalDischarge Instructionson 46-28-5485Rtttdfmzz Instructions [id number]#1.00CD:127[facility] Clinical Summaryon 04-51-2865VI Clinical Summary [place] [id number] ED Clinical Summary Person Information Name: SOFIA WIGGINS/Araceli Age: 20 Years : 2000 Sex: Female Language: Hungarian PCP: Wandy Dorado DO Marital Status: Single [...] 04/29/2021 17:51:20 04/29/2021 17:51:20 04/29/2021 17:51:20 ADDRESS: [address] [place] [address] [address] [place] [id number] [facility] DOC NOTES: MEDICAL INFORMATION: Prescriptions Given: New [...] When: Wandy Dorado [address], Brenda , [facility] [[email or web address] [address] [place] [address] Business (1) In 3 days 05/02/2021 Comments: Ice to the wrist, wear the splint at all times. Medications as directed. DIAGNOSIS: 1:Tendinitis of wrist; 2:Left wrist painNormalFisher Aldair Medical CenterED Patient Education Noteon 03-52-3042ZO Patient Education NoteOrthopedics Tendinitis Tendinitis is inflammation [...] by your health care provider. ? Take nokw-oex-qjvgitr and prescription medicines only as told by [...] 10/16/2001 Document Revised: 04/26/2019 Document Reviewed: 03/09/2019 [employer] Patient Education ? 2019 [employer] Wrist Pain, Adul (more content not included)...[facility] Patient Summaryon 04-29-2021 ED Patient Summary [address] [address] Patient Discharge Instructions Person Information Name: SOFIA WIGGINS Age: 20 Years Arrival Date: 04/29/2021 15:18:05 Discharge Diagnosis: 1:Tendinitis of wrist; 2:Left wrist pain Primary Care Physician: Wandy Dorado DO Provider Information Primary Provider: Alton Francisco DO Advanced Commercial Counsel:Andrew Rainey PA-C The exam and treatment you received in the Emergency Department were for an urgent problem and are not intended as complete care. It is important that you follow up with a doctor, nurse practitioner,or physician?s blood bank assistant for ongoing care. If your symptoms become worse or you do not improve as expected and you are unable to reach your usual health care provider, you should return to the Emergency Department. We are available 24 hours a day. SOFIA WIGGINS has been given the following list of patient education materials, prescriptions andfollow-up instructions: Follow-up Instructions: With: Address: When: Wandy Dorado [address] [place], [place] [address]dg , [facility] [[email or web address]] [address] [place] [address] Business (1) In 3 days 05/02/2021 Comments: [...] opioids can be used to help relieve hjkrpsvn-ta-kpmwyt pain and are often prescribed following a [...] your community drug take- back program or yourpharmacy mail-back program, or flush them down the toilet, following guidance from the Food and Drug Administration (www.fda.gov/Drugs/ResourcesForYou). ? Visit www.cdc.gov/drugoverdose to learn about the risks of opioids abuse and overdose. ? If you believe you may be struggling with addiction, tell your he (more content not included)...[facility] HospitalAmbulatory Clinical Summaryon 83-26-0146Vhjsmnfpfm Clinical Summary {yr-y8-g4-08-w2-3a-4j-38-zw-hb-42-74-4e-7e-38-df}CD:[id number] Hospitals Cleveland Medical CenterFami Medicine Video Visit - Telehealthon 67-25-5569Axoiva Medicine Video Visit - TelehealthI Staff Depression Screening Little Interest, Pleasure in [...] Barbara Sen Only if needed [email or web address] Additional Instructions: Patient Education Health Maintenance, Female [...] FT; Wandy Grigsby MA 04/09/2021 15:52 EDT [facility] HospitalComment on above:Result Comment: Electronically Signed By: Barbara Sen\.br\Date and Time Signed: 04/09/21 16:10 EDT Patient Educationon 51-13-9472Ifggjpe EducationObstetrics and Gynecology Health Maintenance, Female Adopting [...] ? Ask your heal (more content not included)...[facility] Provider Letteron 82-88-2454Laomcaoi Letter April 09, 2021 SOFIA WIGGINS [address] [place] [address] To Whom It May Concern, Please excuse above patient from work. Date of Illness: From: 04/03 To: 04/09 May Return to Work On:04/10 Sincerely, Family Medicine [place] [address] [place] [address] TteyawCokejtUniversity Hospitals Cleveland Medical CenterCHEST, SPECIAL VIEWS(DEBMARIA DOLORES/UMAIR)on 60-81-2359DYLQM, SPECIAL VIEWS(DEBUB/UMAIR) Name: SOFIA WIGGINS STUDY:CHEST, SPECIAL VIEWS(DEBUB/UMAIR); 09/30/2018 7:06pm INDICATION:Signs/Symptoms: fall off hosre. COMPARISON:None. ORDERING CLINICIAN:JOHNIE WELLINGTON FINDINGS: CARDIOMEDIASTINAL SILHOUETTE:Cardiomediastinal silhouette is normal in size and configuration. LUNGS:Lungs are clear. BONES:No acute osseous changes. IMPRESSION:1.No evidence of acute cardiopulmonary process.Electronically signed by: ARACELI GONZALEZ MDJ.W. Ruby Memorial HospitalCT C-SPINE WO CONTRASTon 47-47-2879DZ C-SPINE WO CONTRASTMRN: [id number] Name: SOFIA WIGGINS STUDY:CT C-SPINE WO CONTRAST; [...] paranasal sinuses.Electronically signed by: JUAN JASSO MD [facility]. Ruby Memorial HospitalCT HEAD WO CONTRASTon 08-17-6893CP HEAD WO CONTRAST Name: SOFIA WIGGINS STUDY:CT [...] paranasal sinuses. Electronically signed by: JUAN JASSO MDJ.W. Ruby Memorial HospitalPELVIS, 1 OR 2 VIEWSon 89-28-6298JDLHZL, 1 OR 2 VIEWSMRN: [id number] Name: SOFIA WIGGINS STUDY:PELVIS, 1 OR 2 VIEWS; 09/30/2018 7:06 pm INDICATION:Signs/Symptoms: fall off horse last night. COMPARISON:None. ORDERING C LINICIAN:JOHNIE WELLINGTON FINDINGS:AP pelvis. The osseous structures and soft tissues appear normal. Nofracture or dislocation is noted IMPRESSION:Unremarkable pelvis Electronically signed by: ARACELI GONZALEZ MD [facility]. Ruby Memorial HospitalProvider Note - ED v2on 89-77-5904Gpokqcf mass conc Provider Note - ED v2:Chart [...] obvious signsofdeformity. No edema.Skin: Warm and dryNeuro: diesel powerplant supervisor are grossly intact. No facial asymmetry. Moves [...] be present.Please call if questions. Johnie Wellington, [facility] Medicine, PGY 3 HISTORY OF PRESENTING ILLNESSSOFIA [...] a day SIGNIFICANT EVENTS: No documented data. 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 Data Referenced From Triage - ED 09/30/2018 06:34 [facility] CenterRisk Screen - Adult Emergencyon 34-19-3425Nvoh Screen - Adult EmergencyPreferred Language:Preferred Language: Preferred Language for Discussing Health Care (patient/designee)Hungarian Advanced Directives: Advance Directive Medicalno Advance Directive [...] Learning Preferencesverbal instruction Cultural Considerationsnone Developmental Considerationsnone Mandaeism Considerationsnone Learning Assessment (Other Learner):Learning Assessment (Other [...] an injured patient at a Trauma Center ([facility] / [facility]): no Electronic Signatures: Kateryna Troy (RN) (Signed 30-Sep-2018 19:18)Authored: Preferred Language, Advanced Directives, Family Violence Adult,Suicide / Depression, Learning Assessment (Patient), Learning Assessment (OtherLearner), Fall Risk Adult, Pressure Injury, Respiratory / Cough /TB,Smoking/Social History (Required age 13 or older), CAGE Last Updated: 30-Sep-2018 19:18 by Kateryna Troy (RN)Normal [facility] HospitalHOULDER, CMPLT, MIN 2 VIEWSon 14-98-8638RWDENOTY, CMPLT, MIN 2 VIEWSMRN: [id number] Name: SOFIA WIGGINS STUDY:SHOULDER, CMPLT, MIN 2 VIEWS; 09/30/2018 7:06 pm INDICATION:Signs/Symptoms: fall off horse last night. COMPARISON:None. ORDERING CLINICIAN:JOHNIE WELLINGTON FINDINGS:Right shoulder three views. The osseous structures and soft tissuesappear normal. No fracture or dislocation is noted IMPRESSION:Unremarkable right shoulder Electronically signed by: Hoda NAIRAvita Health System Ontario HospitalKaylee - Vasu 83-26-2587Itmcog - EDQuick Triage:Are You noAre You Currently Breastfeedingno Pain:Pain [...] at time of triage.).Onset of the Complaint: 85-Wpv-2311Glbmyr Date/Time: 30-Sep-2018 18:34Pain Rating (0-10): Rest: 8Vital Signs:Temperature: 97.1F ( 36.2C)Blood Pressure: 132/80 Mean:Heart Rate: 92Respiratory Rate: 18Pulse Oximetry: 97% on room air, no respiratory support. Height: 4 feet 11.00inches. 149.8 CMWeight: 135.0 pounds. Calculated 61.2 kg.Calculated BMI(kg/m2): 27.272 Calculated BSA (m2) 1.60 Cough lasting greater than 3 weeks: noPatient immunocompromised related to: N/ATravel outside of [place]: noAllergies: noLast menstrual period: 69-Rof-7894QAW: 2 Symptoms Are POSITIVE For:facial pain and [...] Last Updated: 30-Sep-2018 18:38 by Regine Lundberg (KYA)[facility] Vital Signs Date TimeVital SignValuePerforming ZfvzvhgmcLvvsvfxs71-65-6617 11:29-0500Body mass index (BMI) [Ratio]37.14 kg/t9Pvftz Milton DO Work Phone: [facility] CenterDfdsacbwvt34-25-3299 11:29-050Body qtismd83.82 kgCorey Milton DO Work Phone: [facility] CenterWhwuyfmrtr01-06-7432 11:29-0500Diastolic blood jecqiwfi10 mm[Hg]Jorge Milton DO Work Phone: [phone] [place], [place] [address]Hclgdgvwpx14-22-0114 11:29-0500Systolic blood mm[Hg]Jorge Milton DO Work Phone: [phone] [place], [place] [address]Vdpkhrmzca41-22-6236 11:11-0400Body mass index (BMI) [Ratio]37.34 kg/k0Mrhvh Milton DO Work Phone: 1(419)[facility] [place], [place] [address]Sxdzewtlnq72-27-5570 11:11-0400Body mqaqci58.28 kgCorey Milton DO Work Phone: 1419)[facility] [place], [place] [address]Cnjocsfuwt88-65-2313 11:11-0400Diastolic blood erypiygd01 mm[Hg]Jorge Milton DO Work Phone: 1(883)[facility] [place], [place] [address]Hhrresoink28-18-7552 11:11-0400Systolic blood oxftddbi901 mm[Hg]Jorge Milton DO Work Phone: 1(246)[facility] [place], [place] [address]Hhxavyuhhx30-05-2302 10:04-0400Body mass index (BMI) [Ratio]36.42 kg/m2Amy Robin PA Work Phone: 1(790)[facility] [place], [place] [address]Vgevipbaoo67-29-6477 10:04-0400Body .19 kgAmy Robin PA Work Phone: 1(187)[facility]-[address] [place], [place] [address]Pokxoiovqo05-83-2518 10:04-0400Diastolic blood eetsjuyr53 mm[Hg]Wandy Kelly PA Work Phone: 1(250)[facility] [place], [place] [address]Ordkuvwoqu96-86-7858 10:04-0400Systolic blood ixahjomh793 mm[Hg]Wandy Robin PA Work Phone: 1419)[facility] [place], [place] [address]Vjzsycdpdr79-16-8405 10:59-0400Body mass index (BMI) [Ratio]34.16 kg/o3Ewmgr Milton DO Work Phone: 1419)[facility] [place], [place] [address]Muzthkottx78-56-6880 10:59-0400Body lvjrmo61.02 kgCorey Milton DO Work Phone: 1419)[facility] [place] [address]-19-2025 10:59-0400Diastolic blood mm[Hg]Jorge Milton DO Work Phone: [facility] CenterNqcgyornsd29-83-9978 10:59-0400Systolic blood eexemfjw251 mm[Hg]Jorge Milton DO Work Phone: [facility] CenterNqivkkamzz20-05-5293 09:25-0400Body mass index (BMI) [Ratio]32.52 kg/m2Wandy Kelly HIEN Work Phone: [facility] CenterQvrumumzri38-08-2654 09:25-0400Body nzadzq66.28 kgWandy Loojustin STANFORD Work Phone: [facility] CenterRsownfywhc09-60-4214 09:25-0400Diastolic blood mm[Hg]Wandy Robin STANFORD Work Phone: [facility] CenterPvroprvfkl07-40-7312 09:25-0400Systolic blood mm[Hg]Wandy Robin STANFORD Work Phone: [facility] CenterGtbsdlbuag56-06-2839 09:23-0400Body mass index (BMI) [Ratio]31.48 kg/f7Zefln Milton DO Work Phone: [facility] CenterYbnebyolly11-41-8482 09:23-0400Body ymujib61.89 kgCorey Milton DO Work Phone: [facility] CenterUwxmafpjsk17-17-4928 09:23-0400Diastolic blood gspimpop17 mm[Hg]Jorge Milton DO Work Phone: [facility] CenterMisauhseyn61-17-9826 09:23-0400Systolic blood mm[Hg]Jorge Milton DO Work Phone: [facility] CenterHdzcyibxac80-37-4644 15:49-0400Body mass index (BMI) [Ratio]30.54 kg/m2NoMercy hospital [facility]05-29-2025 15:49-0400Body qguvev27.76 kgNoMercy hospital springfield05-29-2025 15:49-0400Diastolic blood rzbxwfas29 mm[Hg][facility]05-29-2025 15:49-0400Systolic blood bulafhsp207 mm[Hg][facility]03-13-2024 08:39-0400Body ezwoob524.1 cmTstephen Crawford DO Work Phone: [facility]03-13-2024 08:39-0400Body mass index (BMI) [Ratio]33.96 kg/r9FzgmeTiburcio Crawford DO Work Phone: [facility] [employer] Ttxqso42-03-6307 08:39-0400Body achjcf47.56 kgTiburcio Crawford DO Work Phone: [facility] [employer] Gjydqu81-85-7817 08:39-0400Diastolic blood ysishvxw65 mm[Hg]Tiburcio Crawford DO Work Phone: [facility]03-13-2024 08:39-0400Systolic blood kweewcvt070 mm[Hg]Tiburcio Crawford DO Work Phone: [facility] [employer] Uxqfwr58-02-4987 11:00-0500Body nassij325.27 Simi Mo Other [employer]Worker[employer] Other 01-30-2024 11:00-0500Body mass index (BMI) [Ratio] 39.31 kg/i3AszbwKayley Mo Other [employer]Worker[employer] Other 01-30-2024 11:00-0500Body qtmynhvnkxm131.2 [degF]Kayley Mo Other [employer] Other 01-30-2024 11:00-0500Body oalmqc28.69 kgKayley Mo Other [employer]Worker[employer] Other 01-30-2024 11:00-0500Respiratory rate18 /minKayley Mo Other noWorker[employer] Other 01-30-2024 11:00-1153MnX9% (BldA) [Mass fraction]97 % Kayley Mo Other [employer] Other 11-23-2023 08:48-0500Body xhooph917.86 cmDO Shauna Atkinson Work Phone: [phone])824-[facility]11-23-2023 08:48-0500 Body .4 [degF]DO Shauna Atkinson Work Phone: 1(714)506-[address] [place], [place] 119[address]011-23-2023 08:48-0500 Body yawumx59.13 kgDO Shauna Atkinson Work Phone: 1(202)[address]11-23-2023 08:48-0500 Diastolic blood wtlzadap19 mm[Hg]DO Shauna Atkinson Work Phone: 1(782)[address]11-23-2023 08:48-0500 Heart rate99 /Milton Atkinson Work Phone: 1(938)[address]-23-2023 08:48-0500 Respiratory rate18 /Milton Atkinson Work Phone: [phone])584-[address] [place], [place] 1195011-23-2023 08:48-0500 SaO2% (BldA) [Mass fraction]97 %DO Shauna Atkinson Work Phone: 1(993)2-[address] [place], [place] 1195011-23-2023 08:48-0500 Systolic blood xkkucxye733 mm[Hg]DO Shauna Atkinson Work Phone: 1(903)955-[address] [place], [place] 1195003-10-2023 15:00-0500 Diastolic blood uzkdwzgj87 mm[Hg]DO Shauna Atkinson Work Phone: 1(790)021-[address] [place], [place] 1195003-10-2023 15:00-0500 Heart rate76 /GopalByron Shauna Atkinson Work Phone: 1(758)015-[address] [place], [place] 1195003-10-2023 15:00-0500 Respiratory rate16 /GopalByron Shauna Atkinson Work Phone: 1(655)139-[address] [place], [place] 1195003-10-2023 15:00-0500 SaO2% (BldA) [Mass fraction]96 %DO Shauna Atkinson Work Phone: 1(308)932-[address] [place], [place] 1195003-10-2023 15:00-0500 Systolic blood mm[Hg]DO Shauna Atkinson Work Phone: 1(044)[address]03-10-2023 11:40-0500 Body etpzhp644.86 cmDO Shauna tAkinson Work Phone: 1(565)[address]03-10-2023 11:40-0500 Body oqdyujwpipt58.6 [degF]DO Shauna Atkinson Work Phone: 1(896)045[address]03-10-2023 11:40-0500 Body lxlbee84 kgDO Shauna Atkinson Work Phone: 1(146)[address]12-12-2022 11:52-0500 Body irwfri476.86 cmDO Shauna Atkinson Work Phone: 1(785)[address]12-12-2022 11:52-0500 Body dmqmfnmcsyp90.7 [degF]DO Shauna Atkinson Work Phone: 1(997)[address]12-12-2022 11:52-0500 Body muvgwi98 kgDO Shauna Atkinson Work Phone: 1(483)[address]12-12-2022 11:52-0500 Diastolic blood yhepgplv80 mm[Hg]DO Shauna Atkinson Work Phone: 1(716)[address]12-12-2022 11:52-0500 Heart rate90 /Milton Atkinson Work Phone: 1(786)121-[address] [place], [place] 1195012-12-2022 11:52-0500 Respiratory rate18 /GopalByron Shauna Atkinson Work Phone: 1(487)692-[address] [place], [place] 1195012-12-2022 11:52-0500 SaO2% (BldA) [Mass fraction]96 %DO Shauna Atkinson Work Phone: 1(984)505-[address] [place], [place] 1195012-12-2022 11:52-0500 Systolic blood gkegcqqn425 mm[Hg]DO Shauna Atkinson Work Phone: 1(856)562-[address] [place], [place] 1195012-11-2022 16:07-0500 Body gdhcho784.4 cmDO Shauna Atkinson Work Phone: 1(693)9-[address] [place], [place] 1195012-11-2022 16:07-0500 Body locmlgtcynk70.1 [degF]DO Shauna Atkinson Work Phone: 1(674)861-[address] [place], [place] 1195012-11-2022 16:07-0500 Body hbhkfy94 kgDO Shauna Atkinson Work Phone: 1(112)866-[address] [place], [place] 1195012-11-2022 16:07-0500 Diastolic blood apwtfdkv56 mm[Hg]DO Shauna Atkinson Work Phone: 1(557)[address]12-11-2022 16:07-0500 Heart rate87 /Milton Atkinson Work Phone: 1(283)714-[address] [place], [place] 1195012-11-2022 16:07-0500 Respiratory rate16 /Milton Atkinson Work Phone: 1(236)814-[address] [place], [place] 1195012-11-2022 16:07-0500 SaO2% (BldA) [Mass fraction]95 %DO Shauna Atkinson Work Phone: 1(120)139-[address] [place], [place] 1195012-11-2022 16:07-0500 Systolic blood dybthmut466 mm[Hg]DO Shauna Atkinson Work Phone: 1(334)0-[address] [place], [place] 1195006-09-2022 09:14-0400 Body .86 cmNo PCP AirnDF-[facility]bwhvux[facility] Work Phone: 1(390) 650-962306-09-2022 09:14-0400Body mass index (BMI) [Ratio] 34.18 kg/m2No PCP [facility] Work Phone: [phone]) 621-620806-09-2022 09:14-0400Body surface area Derived from formula1.72 m2No [facility] RwepET-B[facility]dxjoq[facility] Work Phone: 1(218) 347-554806-09-2022 09:14-0400Body xlepnrwqxmo41.5 [degF]No PCP [facility] Work Phone: [phone] 09:14-0400Body .77 kgNo PCP None [facility] Work Phone: [phone] 09:14-0400Diastolic blood hjtlbaor03 mm[Hg] No PCP [facility] Work Phone: [phone] 09:14-0400Heart rate99 /minNo PCP [facility] Work Phone: [phone] 09:14-0705CjC9% (BldA) [Mass fraction]98 % No PCP [facility] Work Phone: [phone] 09:14-0400Systolic blood tiqftxoh493 mm[Hg] No PCP [facility] Work Phone: [phone] 09:51-0400Body hivqcu950.86 cmNo PCP [facility] Work Phone: [phone] 09:51-0400Body mass index (BMI) [Ratio] 35.16 kg/m2No PCP [facility] Work Phone: [phone] 09:51-0400Body surface area Derived from formula1.74 m2No PCP [facility] Work Phone: [phone] 09:51-0400Body vaucikhgkxj43.7 [degF]No PCP [facility] Work Phone: [phone] 09:51-0400Body mwkycy54.95 kgNo PCP None [facility] Work Phone: [phone] 09:51-0400Diastolic blood jahujfli53 mm[Hg] No PCP [facility] Work Phone: 1(907) 576-891205-26-2022 09:51-0400Heart rate78 /minNo PCP None [facility] Work Phone: 1(707) 438-839605-26-2022 09:51-7645BmL5% (BldA) [Mass fraction]99 % No PCP [facility]dgoZW[facility] Work Phone: [phone]) 240-276305-26-2022 09:51-0400Systolic blood qccghvdu994 mm[Hg] No PCP DiqcPC[facility]sc[facility] Work Phone: [phone]) 535-679104-19-2022 15:00-0400Diastolic blood ebabjkpa81 mm[Hg] Cheng Saldaña [facility]04-19-2022 15:00-0400Heart rate79 /minCheng Saldaña [facility]04-19-2022 15:00-0400Mean blood eysaqwhe79 mm[Hg]Cheng Saldaña [facility]04-19-2022 15:00-4491NtK2% (BldA) [Mass fraction]100 %Cheng Saldaña [facility]04-19-2022 15:00-0400 Systolic blood qpognjuv100 mm[Hg]Cheng Saldaña [facility]04-19-2022 14:00-0400 Diastolic blood jsefqrda19 mm[Hg]Cheng Saldaña [facility]04-19-2022 14:00-0400Heart rate94 /minCheng Saldaña [facility]04-19-2022 14:00-0400Mean blood qqczpwte65 mm[Hg]Cheng Saldaña [facility]04-19-2022 14:00-9490MaZ2% (BldA) [Mass fraction]94 %Cheng Saldaña [address] [place], [place] 3714404-19-2022 14:00-0400 Systolic blood hgbipatm245 mm[Hg]Cheng Saldaña [address] [place], [place] 3714404-19-2022 13:52-0400Heart rate85 /minCheng Saldaña [address] [place], [place] 3714404-19-2022 13:52-0400 Respiratory rate16 /minCheng Saldaña [address] [place], [place] 3714404-19-2022 13:52-1203KtL1% (BldA) [Mass fraction]98 %Cheng Saldaña [address] [place], [place] 3714404-19-2022 11:54-0400Body advgfgdmgmc07.24 [degF]Cheng Saldaña [address]04-19-2022 11:54-0400 Diastolic blood ixinredb06 mm[Hg]Cheng Saldaña [address] [place], [place] 3714404-19-2022 11:54-0400Heart fzoy937 /sharathCheng Saldaña [address] [place], [place] 3714404-19-2022 11:54-0400 Systolic blood dthioyug753 mm[Hg]Cheng Saldaña [address] [place] [address] Encounters Encounter DateEncounter TypeCare ProviderFacilityStart: 09-06-2025 End: 02-36-3370Jzbubwwy flow sheetCorey Milton DO Work Phone: NOTM Teodoro OBGYNComment on above:Third trimester ([facility]); 28 weeks gestation of ([facility]); Request for sterilizationStart: 09-06-2025 End: 17-20-2420wuawrhcakeBHREF FAZIONot AvailableStart: 08-23-2025 End: 56-70-5529tkvwkpnhrsDGPQL FAZIONot AvailableStart: 08-16-2025 End: 38-37-5440Qexdoe flowsheetCorey Milton DO Work Phone: NO Teodoro OBGYNStart: 08-16-2025 End: 87-09-0823Gqngpi flowsheetCorey Milton DO Work Phone: NOMS Durandue OBGYNStart: 08-16-2025 End: 21-50-2750Bdlemodc flow sheetCorey Milton DO Work Phone: NOMS Durandue OBGYNComment on above:Gastroesophageal reflux disease with esophagitis without hemorrhage (Primary Dx); Second trimester ([facility]); 25 weeks gestation of ([facility]); Diabetes mellitus screening; size inconsistent with dates ([facility])Start: 08-16-2025 End: 06-39-0336cdwcdlgvvbYGNLD FAZIONot AvailableStart: 07-18-2025 End: 15-06-8601Qwzjrdlp flow Viky STANFORD Work Phone: NOMS Durandue OBGYNComment on above:21 weeks gestation of ([facility]); Second trimester ([facility])Start: 07-18-2025 End: 96-83-9959hxszxfxlmpHBX RAMEYNot AvailableStart: 06-20-2025 End: 26-78-5005Grejnc flowsheetCorey Milton DO Work Phone: [facility]andue OBGYNStart: 06-20-2025 End: 18-92-5065Qsikaj flowsheetCorey Milton DO Work Phone: [facility] Durandue OBGYNStart: 06-20-2025 End: 70-63-4215Pjoayhfjk Result EncounterCorey Milton DO Work Phone: NOMS External Department UnsolicitedStart: 06-20-2025 End: 48-63-8364Jznwuw outpatient visit 15 minutesCorey Milton DO Work Phone: NOMS Durandue OBGYNComment on above:Vaginal discharge; STD exposure; Second trimester ([facility]); 17 weeks gestation of ([facility]); Screening, , for anatomic survey ([facility])Start: 06-20-2025 End: 07-34-3527umqvvyqkfpLEQIE FAZIONot AvailableStart: 05-23-2025 End: 94-70-1098Ujkysa reaRadha STANFORD Work Phone: NOMS BCP OBStart: 05-23-2025 End: 94-59-4500Wrzyxf flowsheetWandy STANFORD Work Phone: NOMS BCP OBStart: 05-23-2025 End: 99-14-6030Csdisnzjj Result EncounterWandy STANFORD Work Phone: NOMS External Department UnsolicitedStart: 05-23-2025 End: 43-52-8386Lcdhdude Result EncounterWandy STANFORD Work Phone: NOMS External Department UnsolicitedStart: 05-23-2025 End: 94-11-0040Kgqmwyx encounter procedureWandy STANFORD Work Phone: NOMS HealthcareStart: 05-23-2025 End: 07-27-9639Wdithqpu flow sheetWandy STANFORD Work Phone: NOMS BCP OBComment on above:Second trimester ([facility]); 13 weeks gestation of ([facility]); Well woman exam with routine gynecological exam; Vaginal discharge; STD exposure; Gastroesophageal reflux in ([facility])Start: 05-23-2025 End: 28-18-9617tbtmjihlujSUH Nixon AvailableStart: 04-24-2025 End: 36-00-0016Iuoxvbqeu Result EncounterCorey Milton DO Work Phone: NOMS External Department UnsolicitedStart: 04-24-2025 End: 39-26-9856Ghyfbmgse Result EncounterCorey Milton DO Work Phone: NOMS External Department UnsolicitedStart: 04-24-2025 End: 24-24-7357Wrrllijs flow sheetCorey Milton DO Work Phone: NOMS BCP OBComment on above:First trimester ([facility]); 9 weeks gestation of ([facility])Start: 04-24-2025 End: 75-30-1674rsybzesfzuMFISV FAZIONot AvailableStart: 04-10-2025 End: 08-01-3626vnojuepaywQZDVK FAZIONot AvailableStart: 04-03-2025 End: 04-45-8464Qzeeak digital e/m svc est pt <7 d 5-10 minutesCorey Milton DO Work Phone: NOGO BCP OBComment on above:Medication care plan discussed with patient; Nausea and vomiting, unspecified vomiting typeStart: 03-30-2025 End: 18-46-3714etwnixmwlyZNIEI FAZIONot AvailableStart: 03-30-2025 End: 27-51-4944Kusrew outpatient visit 5 minutesNoms Bcp Ob Milton NurseNOMS BCP OBComment on above:GA: 3o1sSseir: 03-30-2025 End: 54-42-6962dqtqwumxlhYUBBB FAZIONot AvailableStart: 21-02-3368Haqazjfmx encounterAlicia Patel Physicians Obstetrics/GynecologyStart: 01-20-2024 End: 28-17-8589ihypksrxaiKYUIH L [facility] Hospitaltart: 83-06-8417Vdsqnl OnlyTiburcio Crawford DO Work Phone: [facility] Physicians Obstetrics/GynecologyComment on above:Medication management (Primary Dx)Start: 01-13-2024 End: 37-43-8189uqpenlzcncGMBTM [facility] Ambulatory PPGComment on above:Pelvic pain; DysmenorrheaStart: 01-13-2024 End: 13-22-3798Hylrbjlov for gynecological examination (general) (routine) without abnormal findingsTIBURCIO CRAWFORDSelect Medical [facility] [employer] Work Phone: Start: 01-13-2024 End: 93-61-4895Pljrqar encounter procedureTiburcio Crawford [employer] Work Phone: [facility] HospitalFrogramstart: 01-13-2024 End: 51-16-8957Ygeffefh preventive med est patient 18-39 yrsTiburcio Crawford DO Work Phone: [facility] Physicians Obstetrics/GynecologyComment on above:Well woman exam with routine gynecological exam (Primary Dx); Cervical smear, as part of routine gynecological examination; Pelvic pain; DysmenorrheaStart: 12-01-2023 End: 41-11-3613huktcnmnahMkvnz Keller Other noWorkerBee [employer] Other Start: 71-06-4034Ynuiqo outpatient visit 25 minutes [facility] ClydeStart: 11-03-2023 End: 47-90-2470vufistdqpvZtiig Bailey Other noWorkerB[employer] Other Start: 85-32-4511Iaezen outpatient visit 15 minutes Cheng Atkinson OrthopedicsStart: 09-28-2023 End: 55-66-8599ngriwzwdvoGxgeo Bailey Other noWorkerB[employer]ist[employer] Other Start: 19-85-2003Qkpntv outpatient new 30 minutesCheng Atkinson OrthopedicsStart: 09-24-2023 End: 79-91-2156Wxkfdowix department patient visitAlton BossFacility:[facility] Hospitaltart: 09-24-2023 End: 21-81-5894Adqmnfzzc department patient visitDO Shauna Atkinson Work Phone: [facility] Work Phone: Start: 02-23-2023 End: 43-74-3922thjomardluML DOCTOR MISCFacility:Y8Rqxzp: 01-09-2023 End: 85-23-0378Loxdinuas department patient visitAletomasz Wallace Facility:[facility] Hospitaltart: 01-09-2023 End: 93-97-3337Gblpmhnmb department patient visitDO Shauna Atkinson Work Phone: [facility] Work Phone: start: 01-09-2023 End: 51-57-0531imgjltcxszHJ DOCTOR MISCFacility:Q0Olikx: 01-05-2023 End: 52-99-6443frwxumrgfySP DOCTOR MISCFacility:M9Jdsqv: 12-05-2022 End: 08-79-8288gqvcdjcevzRY DOCTOR MISCFacility:T2Tdcdl: 10-13-2022 End: 59-03-7739Wjresjith department patient visitDO Shauna Atkinson Work Phone: [facility]-Emer[facility] RoomStart: 10-12-2022 End: 59-77-1875Yqybujtsl department patient visitDO Shauna Atkinson Work Phone: [facility]-Emer[facility] RoomStart: 10-11-2022 End: 57-49-2611hxnfkljhcuLA GIOVANA PALMERECKFacility:H9Rrquz: 00-22-5705Xxnjb UpdateNo PCP IsqwCU-Dfidpes-Nqbzo Center Work Phone: Start: 60-52-4820GULRDFt PCP RncvJO-Hnrysxk-[facility]gpuqixKen[facility] [address] Work Phone: Start: 37-39-2622DRO, Provider: Juan Taylor, Status: Pen, Time: 9:00 AMNo PCP LfaoAH-Fsjglpv-Semnn [facility] Work Phone: Start: 05-53-6647Sarcde outpatient visit 15 minutesNo PCP SlhhYL-Tmtpqfk-Bawbx [place] Work Phone: Start: 10-34-9723Uwdqh UpdateNo PCP None PZ-Vzxqhvv-Imwwd [place] Work Phone: Start: 49-24-4035Kibeqe outpatient new 30 minutesNo PCP SyoqFM-Mcwklgr-Kgteu Center Work Phone: Start: 02-18-2022 End: 51-48-9712Xbksisxyp department patient visitCheng Saldaña [facility] Start: 16-33-6843Cmvncyuoe dept visit high severity&threat anyiloboLaura SHAFFER [facility] CenterStart: 09-30-2018 End: 27-23-8081Uskltoj encounter procedureJAGDISH Henrycility:9531 Procedures DateProcedureProcedure DetailPerforming ClinicianStart: 59-99-2380Dzoio dip stick/tablet rgnt non-auto w/o micrscpCorey Milton DO Work Phone: Start: 59-47-9720Jeswc dip stick/tablet rgnt non-auto w/o micrscpCorey Milton DO Work Phone: Start: 81-99-7572Gzucz dip stick/tablet rgnt non-auto w/o micrscpAmy Robin STANFORD Work Phone: Start: 60-12-3836RGA, SERUM, OPEN SPINA BIFIDACorey Milton DO Work Phone: Start: 25-39-1054Zhujh dip stick/tablet rgnt non-auto w/o micrscpCorey Milton DO Work Phone: Start: 25-50-0298HBBNSKFAD VAGINITIS (HTRX)Wandy STANFORD Work Phone: Start: 97-75-1833Pvena dip stick/tablet rgnt non-auto w/o micrscpAmy Robin STANFORD Work Phone: Start: 22-10-4849KXM,APTIMA HPV,AGE GDLNWandy STANFORD Work Phone: Start: 43-96-0454QZL TESTCorey Milton DO Work Phone: Start: 42-08-7502Wcqhz dip stick/tablet rgnt non-auto w/o micrscpCorey Milton DO Work Phone: Start: 56-70-1705Xesaq depression screening assessment Tiburcio Crawford DO Work Phone: Start: 55-08-4893Recaoyxwqbc observation [Identifier] in Cervix by Cyto Libia Crawford DO Work Phone: Start: 03-83-1384Rffmgrvcdy examination of kneeDO Shauna Atkinson Work Phone: Start: 82-67-0213Eplkefheoggm echographyDO Shauna Atkinson Work Phone: Start: 81-40-9333Wfrzjc echographyDO Shauna Atkinson Work Phone: Start: 72-76-1425Dcplutwgsl of wisdom toothCheng Saldaña Tonsillar structure (palatine) (body structure)Cheng Piotr Plan of Treatment DateCare ActivityDetailAuthorStart: 60-08-6688PGdG,Tdap and Td Vaccines (2 - Td or Tdap)DTaP,Tdap and Td Vaccines (2 - Td or Tdap)[facility] [employer] SystemStart: 51-47-6527Rkatvycof for malignant neoplasm of cervixPap SmearProPremier Health Miami Valley Hospitalca [facility] SystemStart: 09-21-2025 End: 89-35-6433Navdmlg encounter hcfritwhl28/20/2025 8:40 AM EST Routine [facility] Teodoro RAMIREZ [address] [place], [id number] Wandy Kelly PA [address] [place] [address] NOMJeannine Valerio OBGYNStart: 09-06-2025 End: 12-58-3938Zkoyaed encounter czwvairnj43/05/2025 11:10 AM EST Routine [facility] Teodoro ARCEGYIsaias [address] [place] [phone] Jorge oRse DO [address] [place] [address] NOMJeannine Valerio OBGYNStart: 08-23-2025 End: 33-87-0522Xjgpryjrdcdz / ancillary services cxzcebeqnm18/22/2025 8:00 AM EDT Ancillary Procedure [facility] [address] [place] [address] NOMS Valerio OBGYNStart: 08-16-2025 End: 07-32-4148TLX panel - Blood by Automated countCBC Lab Routine Diabetes mellitus screening Expected: 08/16/2025 (Approximate), Expires: 08/16/2026[facility] Work Phone: comment on above:Expected: 08/16/2025 (Approximate), Expires: 08/16/2026Start: 08-16-2025 End: 42-35-4852Zbnrxkpycpx of glucose 1 hour after glucose challenge for glucose tolerance testGlucose tolerance, 1 hour Lab Routine Diabetes mellitus screening Expected: 08/16/2025 (Approximate), Expires: 08/16/2026[facility] HealthcareComment on above:Expected: 08/16/2025 (Approximate), Expires: 08/16/2026Start: 08-16-2025 End: 93-19-2428AO for pregnancyUS OB follow up transabdominal approach Imaging Routine size inconsistent with dates ([facility]) Expected: 08/16/2025, Expires: 12/17/2025[facility] Work Phone: comment on above:Expected: 08/16/2025, Expires: 12/17/2025Start: 08-16-2025 End: 09-80-4696Ffoniye encounter procedureNOMS Valerio OBGYNComment on above: ArrivedStart: 07-18-2025 End: 77-68-4733Mnsmjvs encounter nowvohhxk18/16/2025 10:00 AM EDT Routine [facility] Te[facility] [address] [place] [phone] Wandy Kelly PA [address] [place] [address] NOMS Teodoro OBGYNStart: 07-18-2025 End: 33-57-2198Gpfryknkmifh / ancillary services cukbffnrpq20/ 9:00 AM EDT Ancillary Procedure [facility] [address] [place] [address] [facility] Teodoro OBGYNStart: 06-20-2025 End: 81-69-4798Dordq fetoprotein, maternalAlpha fetoprotein, maternal Lab Routine Second trimester ([facility]) 17 weeks gestation of ([facility]) Expected: 06/20/2025 (Approximate), Expires: 06/20/2026[facility] Comment on above:Expected: 06/20/2025 (Approximate), Expires: 06/20/2026Start: 06-20-2025 End: 71-35-8107WV for pregnancyUS OB 14+ weeks anatomy scan Imaging Routine Screening, , for anatomic survey ([facility]) Expected: 06/20/2025, Expires: 09/20/2025NOMS HealthcareComment on above:Expected: 06/20/2025, Expires: 09/20/2025Start: 06-20-2025 End: 78-42-3367Oofhjjm encounter procedureNOMS BCP OBComment on above:Arrived Start: 05-23-2025 End: 39-09-5368Ohnpaun encounter procedureNOMS BCP OBComment on above:Arrived Start: 04-24-2025 End: 13-12-0888Pazxmmb encounter spiqyzrbs22/23/2025 9:10 AM EDT Routine [facility] OB [address] [place] [phone] Jorge Rose, DO [address] [place] [address] N[facility] BCP OBStart: 04-10-2025 End: 27-76-2579Xtkgqrzfpexq / ancillary services aurrgxkzyv63/09/2025 3:00 PM EDT Ancillary Procedure [facility] [address] [place] [address] N[facility] BCP OBStart: 04-03-2025 End: 89-31-1444Uaoswdp encounter pmqocxosp99/02/2025 8:00 AM EDT Office Visit [facility] OB [address] [place] [address] Jorge Rose, DO [address] [place] [address] NOM[facility] BCP OBStart: 03-30-2025 End: 25-11-1098XTL/RhABO/Rh Lab Routine Missed menses , unspecified gestational age Expected: 03/30/2025 (Approximate), Expires: 03/30/2026[facility] HealthcareComment on above:Expected: 03/30/2025 (Approximate), Expires: 03/30/2026Start: 03-30-2025 End: 46-29-1664Tlbfh type and Indirect antibody screen panel - BloodType and screen Lab Routine Missed menses , unspecified gestational age Expected: 03/30/2025 (Approximate), Expires: 03/30/2026[facility] HealthcareComment on above:Expected: 03/30/2025 (Approximate), Expires: 03/30/2026Start: 03-30-2025 End: 15-63-4560Wfmkf of abuse panel - Urine by Screen methodRapid drug screen, urine Lab Routine , unspecified gestational age Encounter for supervision of normal first in first trimester Expected: 03/30/2025 (Approximate), Expires: 03/30/2026[facility] HealthcareComment on above:Expected: 03/30/2025 (Approximate), Expires: 03/30/2026Start: 03-30-2025 End: 17-05-4049ZV Pelvis transvaginalNOMS Healthcare Work Phone: comment on above:Expected: 03/30/2025, Expires: 06/30/2025Start: 39-32-8482Avcvb BMI ScreeningAdult BMI ScreeningProPremier Health Miami Valley Hospitalca Health SystemStart: 03-61-3605Frzjrqenzb ScreeningDepression ScreeningProPremier Health Miami Valley Hospitalca Health SystemStart: 53-16-2027Zshgfow ScreeningTobacco ScreeningProPremier Health [facility] Valley Hospitalca Health SystemStart: 01-20-2024 End: 46-73-5362Spkhnfv encounter gwxzimbcz45/ 8:00 AM EDT Appointment [facility] - Ultrasound [address] [place] [address] Tiburcio Crawford, [address] [place] [address] [facility] - UltrasoundStart: 81-31-8408Jmkqwvswdj hospital visit by pkfkwawam61/20/2024 8:00 AM EDT Hospital Encounter [facility] [address] [place] [address] Tiburcio Crawford, [address] [place] [address] [facility] - UltrasoundStart: 01-13-2024 End: 93-69-2632Muldmdshtqpjp procedure, preparation of smear, genital sourcePap Smear Pathology and Cytology Routine Cervical smear, as part of routine gynecological examination Expected: 01/13/2024 (Approximate), Expires: 01/12/2025[facility] Work Phone: Comment on above:Expected: 01/13/2024 (Approximate), Expires: 01/12/2025Start: 01-13-2024 End: 50-87-5783ZX Pelvis transabdominal and transvaginalUltrasound pelvic with transvaginal Imaging Routine Pelvic pain Expected: 01/13/2024, Expires: 01/12[facility] [employer] SystemComment on above:Expected: 01/13/2024, Expires: 01/12/2025Start: 05-59-1080Wviva BMI Follow Up PlanAdult BMI Follow Up Plan [facility] [employer] SystemStart: 69-23-7597AEQYE-19 Vaccine ( season) COVID-19 Vaccine ()[facility] [employer] SystemStart: 07-03-2023 Influenza vaccinationInfluenza VaccineProMercy Health [facility] SystemStart: 10-12-[address] [facility]tart: 32-81-7121EGG, Provider: Juan Taylor, Status: Pen, Time: 10:00 AMPOV, Provider: Juan Taylor, Status: Pen, Time: 10:00 NUZS-Trljxfk-VclhmjxOur [facility] Work Phone: Start: 06-74-3573YTO, Provider: Juan Taylor, Status: Pen, Time: 9:00 MOUB-Qedmfmy-NqwteH[facility] Work Phone: Start: 18-45-0583Dvikjmiof for malignant neoplasm of cervixPap SmearParkwood Hospital SystemStart: 52-15-4030Wobgdpk CounselingAlomere Health Hospital CounselingAultman HospitalAlanine aminotransferase [Enzymatic activity/volume] in Serum or Plasma by No addition of P-5'-PFGreene Memorial Hospital Ctr Work Phone: Albumin [Mass/volume] in Serum or PlasmaChildren'S Hospital [facility] Work Phone: Albumin/Globulin ratioChildren'S Hospital Of [facility] Ctr Work Phone: Alkaline phosphatase [Enzymatic activity/volume] in Serum or PlasmaChildren'S Hospital Of [facility] Work Phone: Anion gap measurementChildren'S Hospital Of [facility]tr Work Phone: Aspartate aminotransferase [Enzymatic activity/volume] in Serum or PlasmaChildren'S Hospital Of [facility] Work Phone: Bacteria identified in Urine by CultureUrine culture Microbiology Routine Missed menses Ordered: 03/30/2025NOMissouri Delta Medical CenterComment on above:Ordered: 03/30/2025asophils [#/volume] in Blood by Automated count [facility] Work Phone: Basophils/100 leukocytes in Blood by Automated count [facility] Work Phone: Bilirubin.total [Mass/volume] in Serum or Plasma [facility] Work Phone: Calcium [Mass/volume] in Serum or PlasmaChildren'S Hospital Of [facility] Work Phone: Carbon dioxide, total [Moles/volume] in Serum or PlasmaChildren'S Hospital Of [facility] Ctr Work Phone: End: 14-62-1043DCV W Auto Differential panel - BloodCBC auto differential Lab Routine Medication management 1 Occurrences starting 01/19/2024 until 01/18/2025 [facility] Work Phone: Comment on above:1 Occurrences starting 01/19/2024 until 5CBC W Auto Differential panel - BloodCBC and differential Lab Routine Missed menses , unspecified gestational age Ordered: 03/30/2025 [facility] HealthcareComment on above:Ordered: 03/30/2025HLAMYDIA TRACHOMATIS (GENITO/STI)CHLAMYDIA TRACHOMATIS (GENITO/STI) Lab Routine Vaginal discharge STD exposure Ordered: 05/23/2025[facility] Work Phone: comment on above:Ordered: 05/23/2025HLAMYDIA TRACHOMATIS (GENITO/STI)CHLAMYDIA TRACHOMATIS (GENITO/STI) Lab Routine STD exposure Ordered: 06/20/2025[facility] HealthcareComment on above:Ordered: 06/20/2025 Chloride [Moles/volume] [facility] or [facility]Children[facility] Work Phone: End: [phone] metabolic 2000 panel - Serum or PlasmaComprehensive metabolic panel Lab Routine Medication management 1 Occurrences starting 01/19/2024 until 01/18/2025[facility]:1 Occurrences starting 01/19/2024 until 01/18/2025reatinine and Glomerular filtration rate.predicted panel - Serum, Plasma or BloodChildren[facility] Work Phone: Cytology Cervical or vaginal smear or scraping study Pap Smear Pathology and Cytology Routine Well woman exam with routine gynecological exam Ordered: 05/23/2025[facility] HealthcareComment on above:Ordered: 05/23/2025Eosinophils [#/volume] [facility]Children[facility] Work Phone: Eosinophils/100 leukocytes in Blood by Automated count [facility] Work Phone: Erythrocyte distribution width [Ratio] by Automated countChildren[facility] Work Phone: Erythrocytes [#/volume] in BloodChildren'S Hospital [facility] Work Phone: Globulin [Mass/volume] in SerumChildren'[facility] Work Phone: Glucose [Mass/volume] in Serum or PlasmaChildren'[facility] Work Phone: Hematocrit [Volume Fraction] of BloodChildren[facility] Work Phone: Hemoglobin [Mass/volume] in BloodChildren[facility] Work Phone: Hemoglobin A1c/Hemoglobin.total in BloodHemoglobin A1c Lab Routine Missed menses , unspecified gestational age Ordered: 03/30/2025[facility] HealthcareComment on above:Ordered: 03/30/2025Hepatitis B virus surface Ag [Presence] in Serum or Plasma by ImmunoassayHepatitis B surface antigen Lab Routine Missed menses , unspecified gestational age Ordered : 03/30/2025[facility] HealthcareComment on above:Ordered: 03/30/2025Hepatitis C virus Ab [Presence] in Serum or Plasma by ImmunoassayHepatitis C antibody Lab Routine Missed menses , unspecified gestational age Ordered: 03/30/2025[facility] HealthcareComment on above:Ordered: 03/30/2025HIV-1/HIV-2 antigen/antibody combination immunoassayHIV-1 and HIV-2 antibodies Lab Routine Missed menses , unspecified gestational age Ordered: 03/30/2025[facility] HealthcareComment on above:Ordered: 03/30/2025Leukocytes [#/volume] corrected for nucleated erythrocytes in Blood by Automated counChildren'[facility] Work Phone: Leukocytes [#/volume] in BloodMag[facility] Work Phone: Lymphocytes [#/volume] in Blood by Automated count [facility] Work Phone: Lymphocytes/100 leukocytes in Blood by Automated count [facility] Work Phone: MCH [Entitic mass] by Automated [facility] Work Phone: MCHC [Mass/volume] by Automated [facility] Work Phone: MCV [Entitic volume] by Automated [facility] Work Phone: Measurement of renal functionChildren'S Hospital Of [facility] Work Phone: Monocytes [#/volume] in Blood by Automated count [facility] Work Phone: Monocytes/100 leukocytes in Blood by Automated count [facility] Work Phone: Neisseria gonorrhoeae DNA [Presence] in Unspecified specimen by HUMBERTO with probe detectionNeisseria gonorrhea DNA probe, direct Lab Routine Vaginal discharge STD exposure Ordered: 05/23/2025[facility]:Ordered: 05/23/2025Neisseria gonorrhoeae DNA [Presence] in Unspecified specimen by HUMBERTO with probe detectionNeisseria gonorrhea DNA probe, direct Lab Routine STD exposure Ordered: 06/20/2025[facility] CenterComment on above:Ordered: 06/20/2025Neutrophils [#/volume] in Blood by Automated [facility] Work Phone: Neutrophils/100 leukocytes in Blood by Automated count [facility] Work Phone: Nucleated erythrocytes [Presence] in Blood by Automated [facility] Work Phone: Patient EducationChildren'S [facility] Work Phone: Patient referralChildren'S [facility] Work Phone: Platelet mean volume [Entitic volume] in Blood by Automated [facility] Work Phone: Platelets [#/volume] in BloodChildren[facility] Work Phone: Potassium [Moles/volume] in Serum or PlasmaChildren[facility] Work Phone: Protein [Mass/volume] in Serum or [facility] Work Phone: Reagin Ab [Presence] in Serum by RPRRPR Lab Routine Missed menses , unspecified gestational age Ordered: 03/30/2025[facility] HealthcareComment on above:Ordered: 03/30/2025Rubella antibody, IgGRubella antibody, IgG Lab Routine Missed menses , unspecified gestational age Ordered: 03/30/2025[facility] HealthcareComment on above:Ordered: 03/30/2025Sodium [Moles/volume] in Serum or [facility] Work Phone: SURESWAB(R) ADVANCED VAGINITIS PLUS, TMASURESWAB(R) ADVANCED VAGINITIS PLUS, TMA Pathology and Cytology Routine Vaginal discharge STD exposure Ordered: 05/23/2025[facility] HealthcareComment on above:Ordered: 05/23/2025SURESWAB(R) ADVANCED VAGINITIS PLUS, TMASURESWAB(R) ADVANCED VAGINITIS PLUS, TMA Pathology and Cytology Routine Vaginal discharge Ordered: 06/20/2025 [facility] Work Phone: comment on above:Ordered: 06/20/2025Urea nitrogen [Mass/volume] in Serum or [facility] Work Phone: Payers DatePayer CategoryPayerPolicy [id number] Health Insurance [id number] 2023Medicaid [id number] 2.16.840.1.907574.3.57[id number] 2.16.840.1.045884.3.57[id number] 2.16.840.1.786899.3.57[id number] 2.16.840.1.846582.3.57[id number] 2.16840.1.123947.3.57[id number] 2.16840.1.931922.3.57[id number] 2.16840.1.017948.3.57[id number] 2.840.1.110820.3.57[id number] 2.16840.1.635918.3.57[id number] 2.16840.1.521474.3.57[id number] 2.840.1.662550.3.57[id number] 2.16840.1.482669.3.57[id number] 2.16840.1.894317.3.57[id number] 2.16840.1.527817.3.57[id number] 2.16840.1.239938.3.57[id number] 2.16840.1.528021.3.57[id number] 2.0.1.851561.3.57[id number] 2.0.1.714155.3.57[id number] 2.0.1.953215.3.57[id number] 2..1.695869.3.57[id number] 2..1.349225.3.579.2.1259 [id number]-[id number] 2..1.153188.19Unknown [id number] 2..1.7[id number] 2..1.962699.3.579.2.531 Social History DateTypeDetailFacilityStart: 43-04-9381Yunvsxd smoking statusHeavy tobacco smoker (finding)[facility] Campustart: 01-13-2024 End: 25-45-9924Yqy Assigned At BirthFemalMercy Health Lorain Hospitaltart: 10-12-2022 End: 16-11-7016Gmzuxar smoking status NHISSmoker (finding)[facility] CenterStart: 85-84-8659Chc Assigned At BirthSt. Elizabeth Hospital CenterStart: 06-13-4377Gnlyxth smoking status NHISSmokes tobacco daily [facility] SystemHistory of tobacco useCigarette SmokerAtrium Health Carolinas Rehabilitation Charlottetart: 12-10-2022 End: 02-97-0455Qsdbndqgun smoked current (pack per day) - Reported0.3PProMedica Defiance Regional Hospital SystemStart: 23-30-3328Hqsyshv use and exposureSmokeless tobacco non-user [facility] SystemStart: 92-17-9635Npnomxr intakeEx-drinker (finding) [facility] SystemStart: 33-13-1297Rgcjrojmez depression screening zukjadkdxb6CenJuusoaAtrium Health Carolinas Rehabilitation Charlottetart: 04-49-2295Afksoti Commentsocial [facility] Charlottetart: 31-34-9052Wfgwln identityIdentifies as female gender (finding)[facility] Charlottetart: 61-73-6016Qddkcz orientation Heterosexual (finding)[facility] SystemStart: 51-37-7043Noowcda smoking status NHISEx-smokerUniversity Health Lakewood Medical CenterStart: 72-41-0394OnupmimvzURPI Healthcare Start: 85-55-5929Nxa assigned at birthNot on [facility] Clinical Notes 11-03-2021 to 09-06-2025 Note Date & FzkxMnzyDwedxoxv87-05-7426 History of Present illness Narrative* Chelsea Mejia, MARISABEL - 09/06/2025 11:10 AM EST Reason for Appointment: Patient ID: Sofia Andrews is a 24 y.o. female who presents for Routine Visit Patient presents today for Return OB appointment. MEDICATIONS Current Outpatient Medications Medication Instructions omeprazole (PRILOSEC) 20 mg, Oral, Daily before breakfast, Do not crush or chew. pantoprazole (PROTONIX) 20 mg, Oral, Daily before breakfast, Do not crush, chew, or split. pregabalin (LYRICA) 200 mg, Daily Vit-Fe Fumarate-FA ( Vitamins) 28-0.8 MG tablet 1 tablet, Oral, Daily ALLERGIES Allergies Allergen Reactions Ketorolac Anaphylaxis Other [...] nursing note reviewed. Exam conducted with a buyer agent present. Vitals: Estimated body mass index is 37.14 kg/m as calculated from the following: Height as of 01/03/22: 4' 11.5 . Weight as of this encounter: 187 lb. BP: 120/72 Patient's last menstrual period was 02/11/2025. Assessment/Plan ICD-10-CM 1. Third trimester ([facility]) Z34.93 POCT urinalysis dipstick manually resulted 2. 28 weeks gestation of ([facility]) Z3A.28 3. Request for sterilization Z30.2 Return OB: Patient presents today for a routine obstetrics appointment. Patient is currently 28w4d . Patient states she is doing well but has complaints of being tired due to current . Patient has verbalizes frequent movement. labor precautions was discussed/given and patient was instructed to perform kick counts three times a day. Patient stated today that she requests sterilization at the time of if one is needed. Orders Placed This Encounter Procedures POCT urinalysis dipstick manually resulted Follow Up: Patient is to return to office in 2 week for routine OB appointment. Documented by Chelsea Mejia LPN on behalf of: Jorge Rose DO documented in this encounterUniversity Health Lakewood Medical [id number] History of Present illness Narrative* Macrina Ren [...] nursing note reviewed. Exam conducted with a buyer agent present. Vitals: Estimated body mass index is 37.34 kg/m as calculated from the following: Height as of 01/03/22: 4' 11.5 . Weight as of this encounter: 188 lb. BP: 120/70 Patient's last menstrual period was 02/11/2025. ASSESSMENT & PLAN ICD-10-CM 1. Second trimester ([facility]) Z34.92 POCT urinalysis dipstick manually resulted 2. 25 weeks gestation of ([facility]) Z3A.25 3. Diabetes mellitus screening Z13.1 CBC [...] REMOVED WISDOM TOOTH EXTRACTION documented in this encounterUniversity Health Lakewood Medical CenterRofiztkbcr76-34-9523 History of Present illness Narrative* HIEN Sands [...] PLAN ICD-10-CM 1. 21 weeks gestation of ([facility]) Z3A.21 POCT urinalysis dipstick manually resulted 2. Second trimester ([facility]) Z34.92 POCT urinalysis dipstick manually resulted Return [...] behalf of: HIEN Sands documented in this encounterUniversity Health Lakewood Medical [id number] History of Present illness Narrative* Chelsea Mejia, MARISABEL - 06/20/2025 10:50 AM EDT Reason for [...] nursing note reviewed. Exam conducted with a buyer agent present. Vitals: Estimated body mass index is [...] gonorrhea DNA probe, direct 3. Second trimester ([facility]) Z34.92 POCT urinalysis dipstick manually resulted Alpha fetoprotein, maternal Alpha fetoprotein, maternal 4. 17 weeks gestation of ([facility]) Z3A.17 POCT urinalysis dipstick manually resulted Alpha fetoprotein, maternal Alpha fetoprotein, maternal 5. Screening, , for anatomic survey ([facility]) Z36.89 OB 14+ weeks anatomy scan Patient presents today for a routine obstetrics appointment. Patient is currently 17w3d with a Estimated Date of Delivery: 11/25/25.CIRLIO obtained. Pt given msafp and anatomy scan orders. Pt toreturn in 4 weeks. Documented by Chelsea Mejia LPN on behalf of: Wandy Braxton PA-C documented in this encounterUniversity Health Lakewood Medical [id number] History of Present illness Narrative* HIEN Sands [...] ASSESSMENT & PLAN ICD-10-CM 1. Second trimester ([facility]) Z34.92 POCT urinalysis dipstick manually resulted CANCELED: POCT urinalysis dipstick manually resulted 2. 13 weeks gestation of ([facility]) Z3A.13 3. Well woman exam with routine [...] DNA probe, direct 6. Gastroesophageal reflux in ([facility]) O99.619 omeprazole (PriLOSEC) [address] capsule [...] behalf of: HIEN Sands documented in this encounterUniversity Health Lakewood Medical [id number] History of Present illness Narrative* Ciarra Farfan, MARISABEL - 04/24/2025 9:10 AM EDT Reason for [...] nursing note reviewed. Exam conducted with a buyer agent present. Vitals: Estimated body mass index is 31.48 kg/m as calculated from the following: Height as of 01/03/22: 4' 11.5 . Weight as of this encounter: 158 lb 8 oz. BP: 108/78 Patient's last menstrual period was 02/11/2025. ASSESSMENT & PLAN ICD-10-CM 1. First trimester ([facility]) Z34.91 2. 9 weeks gestation of ([facility]) Z3A.09 New OB: Patient presents today for 1st time obstetrics appointment with provider. Patient is currently 4c0mxztgdurl. Patients history has been reviewed in great [...] or undercooked meat, and stay away from [facility]. Patient has been consulted regarding any further [...] of: Jorge Rose DO documented in this encounterUniversity Health Lakewood Medical [id number] History of Present illness Narrative* Ciarra Farfan LPN - 04/03/2025 8:00 AM EDT Reason for Appointment: Patient ID: Sofia Andrews is a 24 y.o. female who presents for No chief complaint on file. Patient presents today via telephone call for a telehealth appointment. Patients Phone #: [phone] (mobile) Date: 04/03/2025 Time: 10:53 AM of [...] of: Jorge Rose DO documented in this encounterUniversity Health Lakewood Medical CenterIvszlowxne30-73-0055 History of Present illness Narrative* Shahida Sheikh [...] Date CYST REMOVAL CHEST TONSILLECTOMY TUBAL LIGATION / TUBE REMOVED WISDOM TOOTH EXTRACTION No Known [...] or undercooked meat, and stay away from [facility]. Patient has also been advised to not change litter boxes and eat 6 small meals a day. Patient has been consulted regarding the do's and don'ts ofpregnancy. Patient was given labs and all questions and concerns were answered. Lupton given for patient to have obtained at 9 weeks with initial labs. Zofran and vitamins sent to [facility] for patient. Patient to schedule a Telehealth [...] by: Shahida Sheikh LPN documented in this encounterUniversity Health Lakewood Medical [id number] Miscellaneous Notes* Telephone Encounter - Alicia Ohara RN - 01/25/2024 2:38 PM EDT Patient called to inquire if we had the results from her ultrasound. She is advised that the ultrasound was normal. She is advised to call if further needs. KYA Reyes [facility] Telephone encounter Note* Telephone Encounter - Alicia Ohara RN - 01/25/2024 2:38 PM EDT Patient called to inquire if we had the results from her ultrasound. She is advised that the ultrasound was normal. She is advised to call if further needs. KYA Reyes [facility]03-19-[facility] History of Present illness Narrative* Tiburcio Crawford DO - 01/19/2024 9:20 AM EDT CBC and CMP ordered per insurance request to refill her ibuprofen documented in this encounterAult[facility]03-13-2024 Miscellaneous Notes* Telephone Encounter - Tiburcio Crawford DO - 01/13/2024 10:13 PM EDT Patient will need a CBC and a CMP to check her blood counts and her liver/kidney function unknown need to continue the ibuprofen. documented in this encounterAultman [facility]03-13-2024 Telephone encounter Note* Telephone Encounter - Tiburcio Crawford DO - 01/13/2024 10:13 PM EDT Patient will need a CBC and a CMP to check her blood counts and her liver/kidney function unknown need to continue the ibuprofen. [facility]03-13-[facility] History of Present illness Narrative* Tiburcio [...] would like to pursue. 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 Excision right chest cyst 5x2 cm 2. Complex closure 5cm 3. 4. 5. Surgeon: Claudia Resident/Fellow/Other First Assist: Geraldine Anesthesia: General, 0.5% marciane Estimated Blood Loss (mL): 3cc Specimen: yes. right skin cyst Findings: sebaceous cyst removed without visible pus Patient Returned To/Condition: To RR in sat cond Attestation: Note Completion: Attending AttestationI was present for the entire procedure Electronic Signatures: Juan Taylor) (Signed 25-Apr-2022 10:40) Authored: Post Operative Note, Note Completion Last Updated: 25-Apr-2022 10:40 by Juan Taylor)[facility] 04-25-2022 NoteHistory & Physical Reviewed: /Lactating: Are [...] the note. I personally evaluated the patient [id number] Electronic Signatures: Sascha Chandler (Resident)) (Signed 25-Apr-2022 08:43) Authored: History & Physical Reviewed, ERAS, Consent, Note Completion Juan Taylor) (Signed 05-May-2022 13:45) Authored: Note Completion Co-Signer: History & Physical Reviewed, ERAS, Consent, Note Completion Last Updated: 05-May-2022 13:45 by Juan Taylor) References: 1. Data Referenced From Patient Profile - Preop v3 25-Apr-2022 08:07[facility]04-19-2022 Hospital Discharge instructions Patient Education 02/18/2022 14:56:49 Epidermal Cyst, Kfdh-jn-Mcto Epidermal Cyst An epidermal cyst is a [...] yourself. Follow these instructions at home: Take repo-gsj-xlrvycb and prescription medicines only as told by [...] the cyst, or to remove it. Take abev-zao-mxxsibn and prescription medicines only as told by [...] 11/26/2005 Document Revised: 02/09/2020 Document Reviewed: 07/28/2019 [employer] Patient Education 2019 get2play. Follow Up Care 02/18/2022 11:50:54 With:Sara MCGRATH, Portillo Address: When:02/21/2022 [facility]04-19-2022 Evaluation + Plan noteExtracted from: Title:ED NoteAuthor:Fabi [...] With Cult Reflex XR Chest [address] [facility]01-02-2022 History of Present illness Narrative* Sofia Wiggins is a 21 year old female presenting to the [facility][1] with a chronic right chest skin abscess that she would like excised. She has been receiving care at [facility]. 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 Diagnosed at age 50. * Maternal grandfather with lung and liver cancer [facility] Work Phone: [phone]) 440-408001-02-2022 History of Present illness Narrative* Sofia Wiggins is a 21 year old female presenting to the [facility]] with a chronic right chest skin abscess that she would like excised. She has been receiving care at [facility]. 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 Diagnosed at age 50. * Maternal grandfather with lung and liver cancer [facility] Work Phone: Evaluation noteNo assessment information available [facility] Work Phone: Evaluation note* Diagnosis Well woman exam with routine gynecological exam- Primary Routine gynecological examination Cervical smear, as part of routine gynecological examination Screening for malignant neoplasm of the cervix Pelvic pain Dysmenorrhea documented [facility] encounter [facility]* Diagnosis Pelvic pain Dysmenorrhea documented in this encounter [facility]* Diagnosis Medication management- Primary documented [facility] this encounter [facility]* Diagnosis Missed menses , unspecified gestational age Encounter for supervision of normal first in first trimester Nausea Nausea alone [facility]* Diagnosis Medication care plan discussed with patient Nausea and vomiting, unspecified vomiting type documented in this encounter [facility]* Diagnosis First trimester ([facility]) state, incidental 9 weeks gestation of ([facility]) documented in this encounter [facility]* Diagnosis Second trimester ([facility]) state, incidental 13 weeks gestation of ([facility]) Well woman exam with routine gynecological exam Routine gynecological examination Vaginal discharge Leukorrhea, not specified as infective STD exposure Gastroesophageal reflux in ([facility]) documented in this encounter [facility]* Diagnosis Vaginal discharge Leukorrhea, not specified as infective STD exposure Second trimester ([facility]) state, incidental 17 weeks gestation of ([facility]) Screening, , for anatomic survey ([facility]) Encounter for anatomic survey documented in this encounter [facility] HealthcareEvaluation note* Diagnosis 21 weeks gestation of ([facility]) Second trimester ([facility]) state, incidental documented in this encounter [facility] HealthcareEvaluation note* Diagnosis Gastroesophageal reflux disease with esophagitis without hemorrhage- Primary Second trimester ([facility]) state, incidental 25 weeks gestation of ([facility]) Diabetes mellitus screening Screening for diabetes mellitus size inconsistent with dates ([facility]) documented in this encounter [facility] HealthcareEvaluation note* Diagnosis Third trimester ([facility]) state, incidental 28 weeks gestation of ([facility] [facility]) Request for sterilization documented in this encounter [facility] HealthcareHistory general Narrative - Reported* Type Description Date Medical History None Surgical HistoryTonsilsSurgical HistoryWisdom Teeth [facility] Other History general Narrative - Reported* Type Description Date Medical History None Surgical HistoryTonsilsSurgical HistoryWisdom TeethSurgical HistoryC section Hospitalization HistorySee Above [facility] [employer] Other Hospital course Narrative No data available for this section [facility] Additional Instructions Take thjo-zqw-piifhud cough and cold medication as needed for symptoms May take the Zofran every 8 hours as needed Use your albuterol inhaler every 4 hours as needed for wheezing cough shortness of breath Increase oral fluids Follow-up with family doctor as needed Return to the ER for significant respiratory distress chest pain vomiting or any other concernsMag[facility] Work Phone: Hospital Discharge instructions Additional Instructions If your symptoms return/worsen or you develop any further concerns or symptoms please see your doctor or return to the emergency department immediately.[facility] Work Phone: Hospital Discharge instructions Additional Instructions Continue your Tylenol and ibuprofen at home Follow-up with your orthopedic physician Return if symptoms are worseMagruder Memorial Hospital Work Phone: InstructionsNot on filedocumented in this encounter [facility]ructionsNot on filedocumented in this encounter [facility] [employer] SystemInstructionsNot on filedocumented in this encounter [facility] Summary Purpose Family History No Family [...] section and content) DATE CREATED AUTHOR 10/11/2018 [facility] DATE CREATED AUTHOR AUTHOR'S ORGANIZ ATION 02/19/2022 [facility] DATE CREATED AUTHOR AUTHOR'S ORGANIZ ATION 05/05/2022 [facility] DATE CREATED AUTHOR AUTHOR'S ORGANIZ ATION 05/12/2022 [facility] DATE CREATED AUTHOR AUTHOR'S ORGANIZ ATION 02/25/2023 [facility] DATE CREATED AUTHOR AUTHOR'S ORGANIZ ATION 12/03/2023 [facility] DATE CREATED AUTHOR AUTHOR'S ORGANIZ ATION 12/11/2023 [facility] DATE CREATED AUTHOR AUTHOR'S ORGANIZ ATION 01/14/2024 [facility] DATE CREATED AUTHOR AUTHOR'S ORGANIZ ATION 01/28/2024 [facility] DATE CREATED AUTHOR AUTHOR'S ORGANIZ ATION 09/08/2025 [facility] EPIC Care Teams (unrecognized sec tion and content) Team Status: Inactive Member Role Status Dates Shauna Atkinson DO Primary Care Provider Active Bogdan Davila ProviderActive Team Status: Active Member Role Status Dates Shauna Atkinson DO Primary Care Provider Active Team Status: Inactive Member Role Status Dates Shauna Atkinson DO Primary Care Provider Active ANGELITA Shafer-BCEmergenirasema ProviderActive Team Status: Inactive Member Role Status Dates Shauna Atkinson DO Primary Care Provider Active Bogdan Shane ProviderActive Team Status: Inactive Member Role Status Dates Shauna Atkinson DO Primary Care Provider Active Byron Arvizu ProviderActiveTeam MemberRelationshipSpecialtyStart DateEnd Date Shauna Atkinson DO [address] [place] [address] PCP - [facility]12/15/22Team MemberRelationshipSpecialtyStart DateEnd Date Shauna Atkinson DO [address] [place] [address] PCP - [facility]12/15/22Team MemberRelationshipSpecialtyStart DateEnd Date Shauna Atkinson DO [address] [place] [address] PCP - [facility]12/15/22Team MemberRelationshipSpecialtyStart DateEnd Date Shauna Atkinson DO [address] [place] [address] PCP - [facility]12/15/22 Goals (unrecognized section and content) Goals may be documented in a n alternate section REASON FOR VISIT (unrecogniz ed section and content) ReasonCommentsAnnual ExamPt is here for annual exam. Last pap was several years at [place]. Pt is due for pap.Gynecologic ExamPelvic PainPt [...] BE BASED ON THE PRIMARY CLINICAL RECORDS. [facility]. provides no warranty or guarantee of the accuracy or completeness of information in this document.
--- OUTSIDE RECORDS SUMMARY | 2025-10-30 20:43 | XMS_ITS | Patient Health Record ---
Author Organization [facility] [place] Address [address] [place] [address] Care Team Providers Care Food And Beverage Analyst Name Role Phone Cecilia Valdez Primary Care Provider Alan Holm [phone] Allergies Allergen (clinical drug ingredient) Drug/Non Drug Allergy documented on EMR Reaction Allergy Type Onset Date Status ketorolac Ketorolac hives Drug Allergy ActivetramadolTramadolhivesDrug AllergyActivePenicillinhivesDrug AllergyActive Results Component Value Reference Range Notes HCG Qualitative Urine Reviewed date:03/28/2025 09:28:29 AM Interpretation: Performing Lab: Notes/Report: [facility] , HCG Qualitative Urine* POSITIVE NEGATIVE Performing Lab:see noteML - [facility] LBCBC AUTO DIFF Reviewed date:04/24/2025 09:41:12 AM Interpretation: Performing Lab: Notes/Report: [facility] ,White Blood Count11.24.0-11.0 10 3/uLRed Blood Count4.424.20-5.40 10 6/uL Nvcewwhrys68.912.0-16.0 g/uANsytuslhma63.436.0-48.0 %Mean Corpuscular Admzkr35.7 81.0-99.0 fLMean Corpuscular Jogaemwbvw60.426.7-34.0 pgMean Corpuscular HGB Conc 33.629.9-35.2 g/dLRed Cell Distribution Width13.311.0-15.0 %Platelet Btere049 150-450 10 3/uLMean Platelet Nkiaqm53.89.5-13.5 fLNeutrophils Percent Auto73.4 43.0-75.0 %Lymphocytes Percent Auto18.920.5-60.0 %Monocytes Percent Auto5.31.7- 12.0 %Eosinophils Percent Auto1.60.9-7.0 %Basophils Percent Auto0.40.2-2.0 % Immature Granulocytes Pct Auto0.40.0-0.5 %Neutrophils Absolute Auto8.21.4-6.5 10 3/uLLymphocytes Absolute Auto2.11.2-3.8 10 3/uLMonocytes Absolute Auto0.60.3-0.8 10 3/uLEosinophils Absolute Auto0.20.0-0.7 10 3/uLBasophils Absolute Auto0.00.0- 0.1 10 3/uLImmature Granulocytes Abs Auto0.050.00-0.03 10 3/uLPerforming Lab:see noteML - [facility] LBDRUG SCREEN RAPID (URINE) Reviewed date:04/24/2025 09:41:04 AM Interpretation: Performing Lab: Notes/Report: [facility] ,Cannabinoid Screen UrinePOSITIVENEGATIVEPhencyclidine Screen UrineNEGATIVE NEGATIVECocaine Screen UrineNEGATIVENEGATIVEMethamphetamines Screen Urine NEGATIVENEGATIVEOpiate Screen UrineNEGATIVENEGATIVEAmphetamine Screen Urine NEGATIVENEGATIVEBenzodiazepines Screen UrineNEGATIVENEGATIVETricyclic Antidepressant UrineNEGATIVENEGATIVEMethadone Screen UrineNEGATIVENEGATIVE Barbiturates Screen UrineNEGATIVENEGATIVEOxycodone Screen UrineNEGATIVENEGATIVE Buprenorphine Screen UrineNEGATIVENEGATIVE DRUG CLASS TEST SYSTEM CUT-OFF CONCENTRATIONS ARE FOLLOWS: AMP (Amphetamine): 500 ng/mL BAR (Barbiturates): 200 ng/mL BZO (Benzodiazepines): 150 ng/mL BUP (Buprenorphine): 10 ng/mL AJ (Cocaine): 150 ng/mL mAMP (Methamphetamine): 500 ng/mL MTD (Methadone): 200 ng/mL OPI (Opiates): 100 ng/mL OXY (Oxycodone): 100 ng/mL PCP (Phencyclidine): 25 ng/mL THC (Cannabinoids): 50 ng/mL TCA (Trycyclic Antidepressants): 300 ng/mL Performing Lab:see noteML - [facility] LBGLYCOHEMOGLOBIN A1C Reviewed date:04/24/2025 09:43:15 AM Interpretation: Performing Lab: Notes/Report: [facility] ,Glycohemoglobin A1C5.14.5-6.2 % ADA RECOMMENDED LIMIT 4.0 - 6.0 ADA THERAPEUTIC TARGET < 7.0 ACTION SUGGESTED > 7.0 Estimated Average Iwridfk939Azkcesexco Lab:see isaias - [facility] LB RUBELLA AB IGG Reviewed date:04/25/2025 09:03:18 AM Interpretation: Performing Lab: Notes/Report: [facility] ,Rubella Antibodies, IgG2.50Immune >0.99 index Non-immune <0.90 Equivocal 0.90 - 0.99 Immune >0.99 Performed at: [address] [id number] Medical Records Receptionist: Reuben Gregory PhD, Phone: [phone] Performing Lab:see isaiasColumbia [facility] LBType and Screen Reviewed date:04/24/2025 01:30:41 PM Interpretation: Performing Lab: Notes/Report: [facility] ,Blood TypeA PositiveAntibody ScreenNEGATIVEHIV Ab/p24 Ag with Reflex Reviewed date:04/25/2025 09:03:18 AM Interpretation: Performing Lab: Notes/Report: [facility] ,HIV Ab/p24 Ag ScreenNon ReactiveNon Reactive HIV-1/HIV-2 antibodies and HIV-1 p24 antigen were NOT detected. There is no laboratory evidence of HIV infection. HIV Negative Performed at: [address] [id number] Medical Records Receptionist: Reuben Gregory PhD, Phone: [phone] Performing Lab:see isaiasColumbia [facility] LBRapid Plasma Reagin, Quant Reviewed date:04/25/2025 01:43:23 PM Interpretation: Performing Lab: Notes/Report: [facility] ,Rapid Plasma Reagin, QuantNon ReactiveNonRea<1:1 titer Please Note: This test does not meet current guidelines for screening and diagnosis of syphilis. This test is intended for following treatment response in patients being treated for syphilis infection. To screen for syphilis infection, a reflex cascade that includes both RPR and a treponema-specific assay should be utilized, such as Treponema pallidum (Syphilis) Screening [place] (615441) or Rapid Plasma Reagin (RPR) Test With Reflex to Quantitative RPR and Confirmatory Treponema pallidum Antibodies (467934). Performed at: [address] [id number] Medical Records Receptionist: Reuben Gregory PhD, Phone: [phone] Performing Lab:see noteColumbia Memorial Hospital LBHCV Antibody RFX to Quant PCR Reviewed date:04/25/2025 09:03:18 AM Interpretation: Performing Lab: Notes/Report: [facility] ,HCV AbNon ReactiveNon ReactiveInterpretation:Comment. Not infected with HCV unless early or acute infection is suspected (which may be delayed in an immunocompromised individual), or other evidence exists to indicate HCV infection. Performing Lab:see noteColumbia Memorial Hospital LBHBsAg Screen Reviewed date:04/25/2025 01:43:23 PM Interpretation: Performing Lab: Notes/Report: [facility] ,HBsAg ScreenNegativeNegative Performed at: [address] [id number] Medical Records Receptionist: Reuben Gregory PhD, Phone: [phone] Performing Lab:see noteColumbia [facility] LBUrine Culture, Routine Reviewed date:04/26/2025 08:42:27 AM Interpretation: Performing Lab: Notes/Report: [facility] ,Urine Culture, RoutineSee Below For Report Urine Culture, Routine Urine Culture, RoutineCulture shows less than 10,000 colony forming units of bacteria per Urine Culture, Routine Urine Culture, Routinemilliliter of urine. This colony count is not generally considered Urine Culture, Routine Urine Culture, Routineto be clinically significant. Urine Culture, Routine Urine Culture, RoutinePerformed at: [facility] Urine Culture, Routine Urine Culture, [address] [place], [place] [id number] Urine Culture, Routine Urine Culture, RoutineLab Director: Reuben Gregory PhD, Phone: [phone] Urine Culture, Routine Performing Lab:see note - [facility] SEE REPORT - [employer] Programmer Id information not found for OBX-specific classifier operator legend Box Test Reviewed date:04/24/2025 09:41:12 AM Interpretation: Performing Lab: Notes/Report: [facility] ,BOX Test Sent OutUNITYBOX Test Reference LabUNITYBOX Test Date Sent04/24/2025 Performing Lab:see noteML - [facility] LBCannabinoid Conf, MS, UR Reviewed date:04/27/2025 03:40:35 PM Interpretation: Performing Lab: Notes/Report: [facility] ,CannabinoidPositive.Carboxy THC Conf, , DR78Tgduxu=31 ng/mL Performed at: - [facility] [address] [facility], [facility], [place] [id number] Medical Records Receptionist: Aashish Flores PhD, Phone: [phone] Performing Lab:see noteLC - [facility] LBIGP,Aptima HPV,Age Gdln Reviewed date:05/26/2025 01:35:32 PM Interpretation: Performing Lab: Notes/Report: SPATULA-ALONE VAGINA [facility] ,Age Gdln ACOG TestingNote. TESTS RESULT FLAG UNITS REF RANGE LAB Clinician Provided Cytology Information Source.............Vagina Other.............. No. of containers..01 ThinPrep Vial Age Algo ACOG Phuong... -30 11 FLAG LEGEND: L-Low Normal,H-High Normal,LL-Alert Low,HH-Alert High <-Panic Low,>-Panic High,A-Abnormal,AA-Critical Abnormal Performed at: 01 =G [facility] [address] [place] [address] Miranda Carson MD, IGP, rfx Aptima HPV ASCUNote. TESTS RESULT FLAG UNITS REF RANGE LAB DIAGNOSIS: 02 NEGATIVE FOR INTRAEPITHELIAL LESION OR MALIGNANCY. FUNGAL ORGANISMS MORPHOLOGICALLY CONSISTENT WITH SONYA SPECIES ARE PRESENT. TRICHOMONAS VAGINALIS IS PRESENT. THIS SPECIMEN WAS RESCREENED PART OF OUR FERRYBOAT TICKET TAKER PROGRAM. Specimen adequacy: 02 Satisfactory for evaluation. Endocervical and/or squamous metaplastic cells (endocervical component) are present. Performed by: 02 Leigh Wright, Fast Food Delivery Driver (ASC) QC reviewed by: 02 America Nielsen, Fast Food Delivery Driver (ASC) . 02 Note: Note 02 The [...] <-Panic Low,>-Panic High,A-Abnormal,AA-Critical Abnormal Performed at: [address] [place] [address] Miranda Carson MD, Performed at: =G - [facility] [address] [id number] Medical Records Receptionist: Miranda Carson MD, Phone: [phone] Performed at: - [facility] [address], [place] [id number] Medical Records Receptionist: Miranda Carson MD, Phone: [phone] Performing Lab:see noteLC - [facility] LBAFP, Serum, Open Spina Bifida Reviewed date:06/22/2025 09:46:29 AM Interpretation: Performing Lab: Notes/Report: N N ULTRASOUND [id number] 3 17 N 1 Y 172 N N N N N White/ [facility] ,ResultsReport.Test Results:*Screen Negative*.Gest. Age on Collection Date17.4. weeksGestat. Age Based OnUltrasound. 15.4 on 06/20/2025 Recalculations are not recommended when gestational dating by LMP and ultrasound are within 10 days. Maternal Age At EDD27.0. yrRaceCaucasian.Wvvieh759. lbsInsulin Dep DiabetesNo. Multiple GestationNo.AFP Value45.5. ng/mLAFP MoM1.25.OSBR Risk 1 WP4656. InterpretationComment. Interpretation: Screen Negative This result is screen [...] Customer Services to discuss available options. The [employer] [employer] recommends amniocentesis be offered to women age 35 and older. Comment:Comment. Roseanna Joshua, Ph.D., [facility] Director References: Available Upon Request. Multiples Of Median Cutoffs For AFP Elevations Coleman 2.5 Black 2.8 IDD 2.0 Twins 4.5 Abbreviation Definitions IDD - Insulin Dep Diabetes OSBR - Open Spina Bifida Risk For further inquiries contact [facility] at [phone]. This test was developed and its performance characteristics determined by [facility]. It has not been cleared or approved by the Food and Drug Administration. Performed at: - [facility] RT [address] [facility] [address], [place], [place] [id number] Medical Records Receptionist: Fidelina Chun [facility], Phone: [phone] Performing Lab:see noteLC - [facility] LBCBC AUTO DIFF Reviewed date:08/24/2025 09:25:51 AM Interpretation: Performing Lab: Notes/Report: [facility] ,White Blood Count15.84.0-11.0 10 3/uLRed Blood Count4.214.20-5.40 10 6/uL Ehhwnidueg91.812.0-16.0 g/sLHpyvzxkwij33.436.0-48.0 %Mean Corpuscular Bxnlro82.6 81.0-99.0 fLMean Corpuscular Xyipatndsa10.426.7-34.0 pgMean Corpuscular HGB Conc 32.529.9-35.2 g/dLRed Cell Distribution Width13.411.0-15.0 %Platelet Zunex721 150-450 10 3/uLMean Platelet Eopthh96.09.5-13.5 fLNeutrophils Percent Auto77.5 43.0-75.0 %Lymphocytes Percent Auto14.520.5-60.0 %Monocytes Percent Auto4.91.7- 12.0 %Eosinophils Percent Auto1.40.9-7.0 %Basophils Percent Auto0.30.2-2.0 % Immature Granulocytes Pct Auto1.40.0-0.5 %Neutrophils Absolute Auto12.21.4-6.5 10 3/uLLymphocytes Absolute Auto2.31.2-3.8 10 3/uLMonocytes Absolute Auto0.80.3- 0.8 10 3/uLEosinophils Absolute Auto0.20.0-0.7 10 3/uLBasophils Absolute Auto0.0 0.0-0.1 10 3/uLImmature Granulocytes Abs Auto0.220.00-0.03 10 3/uLPerforming Lab:see noteML - [facility] LBGlucose 1 Hour Reviewed date:08/24/2025 09:25:51 AM Interpretation: Performing Lab: Notes/Report: [facility] ,Glucose 1 Tzrw118<130 mg/dLPerforming Lab:see noteML - [facility] LB Reason For Referral No Information Medications Medication SIG (Take, Route, Frequency, Duration) Notes Start Date End Date Status Albuterol Sulfate HFA 108 (90 Base) MCG/ ACT 1 puff as needed Inhalation every 4 hrs 08/01/2024ctiveOndansetron HCl 4 MG1 tablet Orally BID prn; Duration: 7 days 08/01/2024ctiveVistaril 25 MG1 capsule Orally BID PRN; Duration: 30 days 06/24/2024ctiveAdipex-P 37.5 MG1 tablet before breakfast Orally Once a day; Duration: 30 days12/28/2024tive Social History Tobacco Use: Social History Observation Description Date Details (start date - stop date) Current Smoker NA - NA Tobacco Control (Standard) Question Answer Notes Tobacco use: Current smoker How often do you smoke cigarettes?Every dayHow many cigarettes a day do you smoke?16-77EIFHC-M (Standard) Question Answer Notes Did you have a drink containing alcohol in the p ast year? No Zzsjet0WzrmlvlkrksoiePmdogdgi Problems Problem Type SNOMED Code ICD Code Onset Dates Problem Status W/U Status Risk Notes Problem Mixed anxiety and de pressive disorder (418603721) Anxiety and depression (F41.8) ActiveconfirmedProblemObese class I (finding) (858662730305204)Class 1 obesity (E66.9)Activeconfirmed Vital Signs Temperature 98.4 degrees Fahrenheit 11/22/2024 Blood pressure irvnstiur86 mm Hg12/28/20240351Jpnhtu16 in12/28/2024lood pressure ctonjlfj05 mm Hg12/28/20242719Irauze435.2 lbs12/28/2024BMI32.43 kg/m212/28/2024 Encounters Encounter Location Date Provider Diagnosis [facility] [address] [place] [address] 11/10/2024 Cecilia Courtney Back pain M54.9 [facility] [address] [facility] [place] [address] 12/19/2024 Cecilia Courtney Back pain M54.9 [facility] [address] [place] [address] 01/19/2025 Alan Hoy Back pain M54.9 [facility] [address] [facility] [place] [address] 03/28/2025 Cecilia Courtney [facility] [facility] [place] [address] 03/31/2025Pamela CramerBack pain M54.9[facility] [facility] [place] [address]/Pamela CramerClass 1 obesity E66.9 and Gastroenteritis K52.9[facility] [facility] [place] [address]/Pamela CramerClass 1 obesity E66.9 Assessments Encounter Date Diagnosis (ICD Code) Assessment Notes Treatment Notes Treatment Clinical Notes Section Notes 11/22/2024 Class 1 obesity (ICD-10 - E66.9) work on diet 3 m fu me wt checks with nurses for refills between now and than 11/22/2024Gastroenteritis (ICD-10 - K52.9) improved some push fluids, electrolytes 12/28/2024lass 1 obesity (ICD-10 - E66.9)discussed diet, whole foods, increase obxjosm5211/10/2024ack pain (ICD-10 - M54.9)5Back pain (ICD-10 - M54.9) 5Back pain (ICD-10 - M54.9)5Back pain (ICD-10 - M54.9) Plan Of Treatment Pending Test Test Name Order Date Covid-19 PCR (CVDTBH) 08/01/2024 Insurance Providers Payer Name Payer Address Payer Phone Subscriber Number Group Number Insured Name Patient Relationship to Insured Coverage Start Date Coverage End Date [facility] [address] [address] [place], [place] [phone] [id number] Mcgowan - patient is the insured Medical (General) History Medical History History ICD Code anxiety DepressionSurgical History Surgery Date(Month/Year) wisdom teeth removed tonsils removedc section
--- OUTSIDE RECORDS SUMMARY | 2025-10-30 20:43 | XMS_ITS | Clinical Summary ---
Author Organization [facility] Address [id number] [place] [address] Care Team Providers Care Morning Caregiver Name Role Phone Len Atkinson Primary Care Provider + [phone] Allergies Active AllergyReactionsCriticalityNoted DateCommentsAdhesiveOther (See Comments) 01/28/2023 Redness from EKG patches if left on too long RfajykyqxovCbmqlqqryciIwev22/08/2023ollen Inbbjvjp00/06/2023etorolac UoxieyljwsdRczt00/08/8944RucvzlxgSsjxvhzuwmcRasx10/08/2023 Medications MedicationSigDispense QuantityRefillsLast FilledStart DateEnd DateStatus ondansetron [...] ProblemNoted DateDiagnosed DateOvarian cyst02/18/2023Family history of breast pfovsk4312/10/2022 Overview (12/10/2022): Mother at age 48 Secondary uowxdtyzhr93/08/2023Obesity (BMI 30.0-34.9)12/10/20228376Tsique76/08/2023 Overview (12/10/2022): Encouraged cessation Family History Medical HistoryRelationNameCommentsLiver cancerMaternal GrandfatherLung cancer Maternal GrandfatherBreast cancerMotherstage 4.MetastaticDiabetesMotherEclampsia MotherRelationNameStatusCommentsMaternal GrandfatherDeceasedMaternal Grandmother DeceasedMother Social History Tobacco UseTypesPacks/DayYears UsedDateSmoking Tobacco: Every DayCigarettes Smokeless Tobacco: Never Tobacco Cessation:Ready to Q uit: Not Asked; Counseling Given: Not Answered Alcohol UseStandard Drinks/WeekCommentsNot Currently0 (1 standard drink = 0.6 oz pure alcohol)socialPHQ-2AnswerDate RecordedTotal Cjgqx947/13/2024ChildcareAnswer Date JdqttvgyRulkiuromDqskkaa59/13/2019EmploymentAnswerDate RecordedEmployment Ttqgvyl6904/14/2019Hunger ScreeningAnswerDate RecordedWithin the past 12 months we worried whether our food would run out before we got money to buy more.Never True01/13/2024Within the past 12 months the food we bought just didn't last and we didn't have money to get more.Never True01/13/2024CommentsNoSex and Gender InformationValueDate RecordedSex Assigned at AefmmUjrnly90/21/2023 10:59 AM ESTLegal GrwIeklep54/24/2017 10:27 AM EDTGender OnqphvkvKfyuxe62/21/2023 10:59 AM ESTSexual TmvfmmkwuklOxkvvxre10/ 10:59 AM EST Last Filed Vital Signs Vital SignReadingTime TakenCommentsBlood Oxfeinji898/8201/13/2024 8:39 AM EDT Oltzc016704/07/2023 9:34 AM DSPVkiivrvstsx22.4 ??C (97.5 ??F)02/18/2023 1:33 PM EDTRespiratory Wsfj335204/07/2023 9:34 AM EDTOxygen Amsjufnwvv70%02/18/2023 2:45 PM EDTInhaled Oxygen Concentration--Wxrkxp93.6 kg (171 lb)01/13/2024 8:39 AM EDT Yzweml467.1 cm (4' 11.5 )01/13/2024 8:39 AM EDTBody Mass Index33.9601/13/2024 8:39 AM EDT Plan of Treatment Health MaintenanceDue DateLast DoneCommentsAdult BMI Sstkpsyor88/13/2025 01/13/2024epression Btirdvhei90Tobacco Xatlmlchy55/13/2025 01/13/2024OVID-19 Vaccine ( season)507/, 04/30/2021 Influenza Jfsphgv7407/03/2025Pap SmearTaP,Tdap and Td Vaccines (2 - Td [...] COPATH - 01/27/2024 8:57 AM EDT ? [facility] ? [facility] ? [address] [place] [address] ? [place] [address] ? Gynecologic Cytology Consultation ? Patient Name:JULIANA SOFIA Musa:2000 (Age: 23)Gender:FTaken:4Reported:4Physician(s):Kim Crawford DO ([phone])Copy To: Rec. #:[id number]: #[id number] Final Cytologic Interpretation ThinPrep Pap Test (Cervical): Satisfactory for evaluation. A transformation zone component is present. NEGATIVE FOR INTRAEPITHELIAL LESION OR MALIGNANCY. jja/01/27/2024 Interpretation performed at [facility], [address] [place] [address], License number: [id number]. Electronically Signed Out By ?CELSO Major(ASCP) Date of Last Menstrual Period: ? 01/08/24 Other Clinical Conditions: Z01.419 Cut Roll Machine Operator exam wo/abn findings Source of Specimen ??ThinPrep Pap Test (Cervical) ? Thin Prep Pap (SENIOR PHP DEVELOPER) Fee Code(s): ?? G0145 Authorizing ProviderResult TypeResult StatusTansohail Crawford DOPATHOLOGY/CYTOLOGY ORDERABLESFinal ResultPerforming OrganizationAddressCity/State/ZIP CodePhone Number COPATH from Last 3 Months or Most Recently Relevant to Health Maintenance Insurance * Guarantor: Sofia McgowanAccount TypeRelation to PatientDate of BirthPhoneBilling AddressPersonal/TehrghZood2000 [address] [address] Advance Directives * Full Code (Latest Code Status on File) Date ActivatedDate InactivatedComments02/18/2023 2:12 PM02/18/2023 10:40 PM Care Teams Team MemberRelationshipSpecialtyStart DateEnd Date Len Atkinson DO [address] [place] [address] PCP - GeneralFamily Medicine12/15/22
--- OUTSIDE RECORDS SUMMARY | 2025-10-30 20:43 | XMS_ITS | Encounter Summary ---
Author Organization [facility] Address [address] [place] [address] Care Team Providers Care Holistic Health Practitioner Name Role Phone Unavailable Primary Care Provider Unavailabl e Encounter Details DateTypeDepartmentCare Team (Latest Contact Info)Pavuhloysvy64/29/2025amboo flowsheet [facility] [address] [place] [address] Wandy Kelly PA [address] [place], [facility] Social History Tobacco UseTypesPacks/DayYears UsedDateSmoking Tobacco: FormerCigarettes Estimated Date of SqvpgnsoSwkcngunIss07/24/2026Based on Ultrasound, [facility]- 101Sex and Gender InformationValueDate RecordedSex Assigned at BirthNot on fileLegal IsoXbvyki13/15/2023 6:40 PM EDTGender IdentityNot on fileSexual OrientationNot on filedocumented as of this encounter Plan of Treatment DateTypeDepartmentCare Team (Latest Contact Info)Sunaotpydsd81/05/2026 11:00 AM ESTRoutine [facility] ARCEGYN [address] [place] [address] Jorge Rose DO [address] [place], [place] [address] documented as of this encounter Visit Diagnoses Not on filedocumented in this encounter
--- OUTSIDE RECORDS SUMMARY | 2025-10-30 20:43 | XMS_ITS | Patient Health Record ---
Author Organization [employer] Address [address] [place] [address] Care Team Providers Care Real Estate Operations Manager Name Role Phone Dr. Pablo Arreola Primary Care Provider Reason For Referral No Information Plan Of Treatment No Information Insurance Providers Payer Name Payer Address Payer Phone Subscriber Number Group Number Insured Name Patient Relationship to Insured Coverage Start Date Coverage End Date zDENTAL DQ [employer] CE-terme d [address] [place] [address] [id number] XENIA WIGGINS Self - patient is the insured zDental MEDICAID [facility] after [employer]-termed [address] [place] [id number], NICOLETTESelf - patient is the ozxsmpt29 2022
--- OUTSIDE RECORDS SUMMARY | 2025-10-30 20:43 | XMS_ITS | Clinical Summary ---
Author Organization [facility] Address [address] [place] [address] Care Team Providers Care Shellfish Harvester Name Role Phone Unavailable Primary Care Provider Unavailabl e Social History Tobacco UseTypesPacks/DayYears UsedDateSmoking Tobacco: Never Assessed CommentsUnknownSex and Gender InformationValueDate RecordedSex Assigned at Not on fileLegal EfvQarlpb02/09/2022 8:03 AM ESTGender IdentityNot on fileSexual OrientationNot on file Plan of Treatment Health MaintenanceDue DateLast DoneCommentsGONORRHEA ESHTQH06 2000HEPATITIS C VIRUS IQUBYYVKX33/30/1740DGNIYVB1998HIV SCREENING TMWRLIVDGI58/30/2013HPV VACCINE ADOL (1 - 3-dose series)2013HPV VACCINE (1 - 3-dose series) 2013CHLAMYDIA CJNGGI5010/31/2014HEP B VACCINE (1 of 3 - 19+ 3-dose series) 2017TDAP (ADULT)2017CERVICAL CANCER SCREENING PZAEKDNOWC35/30/2019 COVID-19 VACCINE (2024- season)2025INFLUENZA VACCINE (#1)2025 PNEUMOCOCCAL VACCINE SERIESAged OutNo longer eligible based on patient's age to complete this topic
--- OUTSIDE RECORDS SUMMARY | 2025-10-30 20:43 | XMS_ITS | Clinical Summary ---
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 Name Role Phone Unavailable Primary Care Provider Unavailabl e Allergies Active AllergyReactionsCriticalityNoted DateCommentsKetorolacAnaphylaxisHigh 12/10/2022 Other Reaction(s): hives Other Reaction(s): Hives TkzremxdmezZgaqxlqkachFtru44/08/2023 Other Reaction(s): Unknown Other Reaction(s): hives Pollen Dchbire3004/07/2023etorolac Qaduqavkuiuj72/29/2025TramadolAnaphylaxisHigh 12/10/2022 Other Reaction(s): hives Other Reaction(s): Hives Wound Dressing Kqsxxiqh74/29/2023 Other Reaction(s): Other (See Comments) Redness from [...] MG tablet Indications:Missed menses,, unspecified gestational age ([facility]), Encounter for supervision of normal first in first trimester ([facility]) ,NauseaTake 1 tablet by mouth Daily 30 tablet 11007/26/3628966Active pantoprazole (Protonix) 20 MG EC tablet Indications:Gastroesophageal reflux disease with esophagitis without hemorrhage Take 1 tablet (20 mg) by mouth in the morning. Take before meals. Do not crush, chew, or split. 30 tablet 6Active promethazine (Phenergan) 12.5 MG tablet Indications:Nausea and vomiting in ([facility])Take 1 tablet (12.5 mg) by mouth every 6 (six) hours if needed for nausea or vomiting for up to 90 doses Take 1 tablet by mouth every 6 hours as needed for nausea. 30 tablet 5Active metoclopramide (Reglan) 10 MG tablet Indications:Nausea and vomiting in ([facility])Take 1 tablet (10 mg) by mouth in the morning and 1 tablet (10 mg) at noon and 1 tablet (10 mg) in the evening. Take before meals. Take 1 tablet by mouth 30 minutes prior to meals 3 times daily as needed for nausea. 90 tablet 6Active ondansetron ODT (Zofran-ODT) 4 MG disintegrating tablet Indications:Nausea and vomiting in ([facility])Take 1 tablet (4 mg) by mouth every 6 (six) hours if needed for nausea or vomiting 30 tablet 6Active Encounters DateTypeDepartmentCare TwgvGbsyhelpgpv41/29/2025 10:50 AM ESTRoutine SAAD RAMIREZ [address] [place] [address] [place] [address] Wandy Kelly PA Third trimester ([facility]); 36 weeks gestation of ([facility])10/30/2025amboo flowsheet SAAD [place] [address] Wandy Kelly PA 10/17/2025 10:30 AM ESTRoutine SAAD [place] [address] Jorge Rose DO Third trimester ([facility]); 34 weeks gestation of ([facility])10/17/2025 10:00 AM ESTAncillary Procedure [facility] [address] [place] [address] Excessive growth affecting management of in third trimester, single or unspecified fetus ([facility])10/13/2025Telephone [facility] [address] [place] [address] Najma Perez MA 10/06/2025Telephone [facility] [address] [place] [address] Cordelia Loja MA 10/05/2025 1:50 PM ESTRoutine [facility] [address] [place] [address] Wandy Kelly PA Excessive growth affecting management of in third trimester, single or unspecified fetus ([facility]) (Primary Dx); 32 weeks gestation of ([facility]); Third trimester ([facility])5Bamboo flowsheet [facility] [address] [place] [address] Wandy Kelly PA 10/02/2025bstract [facility] [address] [place] [address] Pablo Lucero MD 09/21/2025 8:40 AM ESTRoutine [facility] [address] [place] [address] Wandy Kelly PA Third trimester ([facility]); Nausea and vomiting in ([facility])5Bamboo flowsheet [facility] [address] [place] [address] Wandy Kelly PA 09/20/20256003Qoldlf76/05/2025 11:10 AM ESTRoutine [facility] [address] [place] [address] Jorge Rose DO Third trimester ([facility]); 28 weeks gestation of ([facility]); Request for hsfcvmzigarvd05/05/2025 10:30 AM ESTAncillary Procedure [facility] [address] [place] [address] size inconsistent with dates ([facility])5Abstract [facility] OBROSALVAN [address] [place] [address] Jorge Rose DO 08/23/2025 8:00 AM EDTAncillary Procedure [facility] [address] [place] [address] Marginal placenta ([facility]); Encounter for follow-up ultrasound of anatomy ([facility])08/23/2025Orders Only NOM[facility]ann[facility] [address] [place] [address] Ciarra Farfan LPN Encounter for follow-up ultrasound of anatomy ([facility])08/16/2025 11:30 AM EDTRoutine [facility] YADAVN [address] [place] [address] Jorge Rose DO Gastroesophageal reflux disease with esophagitis without hemorrhage (Primary Dx); Second trimester ([facility]); 25 weeks gestation of ([facility]); Diabetes mellitus screening; size inconsistent with dates ([facility])08/16/2025amboo flowsheet [facility] [address] [place] [address] Jorge Rose DO from Last 3 Months Family History Medical HistoryRelationNameCommentsAlcohol abuseFatherPancreatic cancerMaternal GrandfatherSchizophreniaMaternal GrandmotherSuicide AttemptsMaternal Grandmother Anxiety disorderMotherBipolar disorderMotherBreast cancerMotherSTAGE 4 METS DepressionMotherDiabetesMotherHIGH BLOOD PRESSUREMotherHyperlipidemiaMother SchizophreniaMotherSchizophreniaMother's BrotherSuicide AttemptsMother's Brother RelationNameStatusCommentsFatherMaternal GrandfatherMaternal GrandmotherMother Mother's Brother Social History Tobacco UseTypesPacks/DayYears UsedDateSmoking Tobacco: FormerCigarettes Tobacco Cessation:Counseling Given: Not Answered Estimated Date of ZonxqcxfZnlhrxydKob11/24/2026ased on Ultrasound, [facility]- 101Sex and Gender InformationValueDate RecordedSex Assigned at BirthNot on file Legal HzoXwuuqs91/15/2023 6:40 PM EDTGender IdentityNot on fileSexual OrientationNot on file Last Filed Vital Signs Vital SignReadingTime TakenCommentsBlood Ktgackxd592/7610/30/2025 11:31 AM EST Pulse--Temperature--Respiratory Rate--Oxygen Saturation--Inhaled Oxygen Concentration--Serbsl31.6 kg (202 lb)10/30/2025 11:31 AM HSWFrahoy777.1 cm (4' 11.5 )01/03/2022 12:00 PM ESTBody Mass Index40.12001/03/2022 12:00 PM EST Plan of Treatment DateTypeDepartmentCare Team (Latest Contact Info)Hbynnxzvvxs57/05/2026 11:00 AM ESTRoutine [facility] [address] [place] [phone] Jorge Rose, [address] [place], [place] [address] Procedures Procedure NamePriorityDate/TimeAssociated DiagnosisCommentsPOCT URINALYSIS LQMFWZHENahwqvu08/29/2025 12:02 PM EST Third trimester ([facility]) POCT URINALYSIS OHYJPRSRUkybppq86/16/2025 11:07 AM EST Third trimester ([facility]) US OB FOLLOW UP TRANSABDOMINAL IDSRKXOCDuyxreo15/16/2025 10:21 AM EST Excessive growth affecting management of in third trimester, single or unspecified fetus ([facility]) POCT URINALYSIS PWKSJCWZDjugrav44/04/2025 2:05 PM EST 32 weeks gestation of ([facility]) POCT URINALYSIS IPAOXZHTYnhtwyu27/20/2025 9:35 AM EST Third trimester ([facility]) POCT URINALYSIS WBXAUGPMAnkqaad40/05/2025 11:30 AM EST Third trimester ([facility]) US OB FOLLOW UP TRANSABDOMINAL BGBZHSDEEoizrjp11/05/2025 11:00 AM EST size inconsistent with dates ([facility]) US OB LIMITED 1+ HTPAAQEVhvhvep23/22/2025 8:39 AM EDT Marginal placenta ([facility]) POCT URINALYSIS ULQGSAQFGdkisla32/15/2025 11:12 AM EDT Second trimester ([facility]) from Last 3 Months Results * (ABNORMAL) POCT urinalysis dipstick manually resulted (10/30/2025 12:02 PM EST) Only the most recent of6 resultswithin the time period is included. ComponentValueRef RangeTest MethodAnalysis TimePerformed AtPathologist Signature Color, UAYellowClarity, UAClearGlucose, UANegativeNegative - 2000(110) ++++ mg/dLBilirubin, UANegativeNegative - 4(70) +++ mg/dLKetones, UANegativeNegative - 160(16) ++++ mg/dLSpec Grav, UA1.0201 - 1.03Blood, UANegativeNegative - 50 Mando/mcLpH, UA7.05 - 9Protein, UANegativeNegative - 2000(20) ++++ mg/dL Urobilinogen, UA1.00.2 - 12 mg/dLLeukocytes, UA3+Negative - 500+++ Maddy/mcL Nitrite, UANegativeNegative - PositiveSpecimen (Source)Anatomical Location / LateralityCollection Method / VolumeCollection TimeReceived ActhGcmcx97/29/2025 12:02 PM EST Narrative Authorizing ProviderResult TypeResult StatusWandy Kelly [employer] [facility] TEST ENTER/EDIT ORDERABLESFinal Result * US OB follow up transabdominal approach (10/17/2025 10:21 AM EST) Only the most recent of2 resultswithin the time period is included. Anatomical RegionLateralityModalityBodyUltrasoundSpecimen (Source)Anatomical Location / LateralityCollection Method / VolumeCollection TimeReceived Time 10/19/2025 1:44 PM EST Impressions 10/19/2025 1:49 PM EST SINGLE LIVE INTRAUTERINE CORRESPONDING TO APPROXIMATELY 33 WEEKS 6 DAYS WITH AN EXPECTED DUE DATE OF NOVEMBER 29, 2025. NO GROSS ABNORMALITIES IDENTIFIED, WITHIN THE LIMITS OF THE STUDY. ELECTRONICALLY SIGNED BY: Anastasia Huggins DO Narrative 10/19/2025 1:49 PM EST Ultrasound of US [...] Robin GUPTA OB US PROCEDURES Final Result * US OB limited 1+ fetuses (08/23/2025 8:39 AM EDT)Anatomical RegionLaterality ModalityBodyUltrasoundSpecimen (Source)Anatomical Location / Laterality Collection Method / VolumeCollection TimeReceived Time08/23/2025 1:17 PM EDT Impressions 08/23/2025 1:43 PM EDT Single viable intrauterine , posterior placenta. TRANSCRIBED BY: ? ELECTRONICALLY SIGNED BY: Pablo Lucero MD Narrative 08/23/2025 1:43 PM EDT FINDINGS: Single viable intrauterine with adequate and cardiac activity, heart rate 167 bpm. ??Cephalic presentation. ?? Placenta remains posteriorly located, migrated away from the closed internal cervical os inferior aspect approximately 7 cm. Normal three-vessel cord, RVOT, LVOT, and spine visualization appropriate for this age. Gestational age of 26 weeks, 4 days with an estimated delivery date of November 25, 2025. Procedure Note Pablo Lucero MD - 08/23/2025 FINDINGS: Single viable intrauterine with adequate and cardiacactivity, heart rate 167 bpm. Cephalic presentation. Placenta remains posteriorly located, migrated away from the closedinternal cervical os inferior aspect approximately 7 cm. Normalthree-vessel cord, RVOT, LVOT, and spine visualization appropriatefor this age. Gestational age of 26 weeks, 4 days with an estimated delivery date ofNovember 25, 2025. IMPRESSION: Single viable intrauterine , posterior placenta. TRANSCRIBED BY: ELECTRONICALLY SIGNED BY: Pablo Lucero MD Authorizing ProviderResult TypeResult StatusCorey Milton DOIMG OB US PROCEDURES Final Result from Last [address] [place] [address]
== END 2025-10-30 20:23 | disposition home or self-care (01) ==
LOC: LAB 20:22
PROVIDERS: PCP Nurse Practitioner Family; Visit Provider Physician Assistant
DX: Z34.93 Encounter for supervision of normal pregnancy, unspecified, third trimester (principal); Z3A.36 36 weeks gestation of pregnancy
CPT/HCPCS: 87081